=== PATIENT | female | born 1975 | race Caucasian/White ===

== ENCOUNTER → 2016-12-02 | Outpatient (CLI) | payer MEDICARE, OTHER ==
--- NOTE | 2016-12-02 08:18 | XR ---
Bilateral feet HISTORY: Osteomyelitis 2 views of both feet are submitted. Correlation to prior exam 10 October 2016 left foot, bilateral f eet 08 October 2016 Post amputation changes to the first digit of the right foot again noted. The sclerosis of the distal aspect of the second metatarsal with relative flattening of the metatarsal head is again noted on th e right, there is associated soft tissue swelling, some sclerosis also suspect that the distal third metatarsal of the right foot. There are bilateral plantar calcaneal spurs. Degenerative change present at the first metatarsophalan geal joint of the left foot as on prior exam. No evident fracture or dislocation. Question some scler osis of the proximal fifth metatarsal. IMPRESSION: Findings could represent chronic osteomyelitis. Correlate with bone scan.
== END | disposition home or self-care (01) ==
LOC: RADNMMAIN 07:01
PROVIDERS: ATTEND Podiatrist
DX: M86.8X7 Other osteomyelitis, ankle and foot (principal)

== ENCOUNTER 2016-12-17 18:03 | Inpatient (IN) | payer MEDICARE, OTHER ==
--- NOTE | 2016-12-17 19:32 | ED ---
Fever HPI - General Chief Complaint: Fever Stated Complaint: CHILLS, WEAKNESS, NO ENERGY Time Seen by Provider: 12/17/16 18:56 Source: patient Mode of arrival: wheelchair Limitations: no limitations - History of Present Illness Initial Comments: This patient is a 41-year-old woman who presents to be evaluated after she developed a fever, was feeling generalized fatigue and weakness. The patient states that her recent health has been complicated. On December 06, she had an episode of unresponsiveness, was taken to the hospital, found to be septic, and transferred to [facility]. There she was found to have what appeared to be endocarditis. She was released from the hospital yesterday, continuing to take Rocephin and metronidazole. She went to the wound care center today and had a debridement of left foot ulcer by Dr. Madrigal. She went home this afternoon and then she started having the symptoms that brought her here. She states that a visiting nurse came and saw her this afternoon, told her that her vital signs were funny, and recommended she be seen in the hospital. The patient states that she had a couple of things she had to resolve and then came here following that. The patient is denying headache, stiff neck, or cold-like symptoms. Patient denies cough, chest pain, shortness of breath. Patient has not noticed palpitations, lightheadedness or syncope. She is not having abdominal pain, vomiting or diarrhea. Patient has not noticed change in urination, frequency, dysuria or hematuria. MD Complaint: fever, malaise, weakness (Last) -: hour(s) Temperature Source: oral Context: recent procedure, recent antibiotic use Associated Symptoms: denies other symptoms Treatments Prior to Arrival: none - Related Data Home Medications Medication Instructions Recorded Confirmed Carvedilol [Coreg] 25 mg PO BID 03/04/15 12/17/16 Furosemide [Lasix] 40 mg PO DAILY@1600 03/04/15 12/17/16 Furosemide [Lasix] 80 mg PO QAM 03/04/15 12/17/16 Spironolactone [Aldactone] 25 mg PO BID 03/04/15 12/17/16 Digoxin [Lanoxin] 250 mcg PO QAM 08/22/15 12/17/16 Albuterol Inhaler [Ventolin Hfa 2 puff INHALATION RT-Q6H PRN 07/29/16 12/17/16 Inhaler] Insulin Glargine [Lantus] 40 unit SQ HS 07/29/16 12/17/16 Lisinopril 10 mg PO DAILY 07/29/16 12/17/16 Acetaminophen Tab [Tylenol] 650 mg PO TID PRN 09/06/16 12/17/16 Gabapentin 600 mg PO BID 10/10/16 12/17/16 acetaZOLAMIDE [Diamox Sequels] 500 mg PO BID 12/03/16 12/17/16 Insulin Aspart [NovoLOG] 20 unit SQ AC-TID 12/17/16 12/17/16 Ipratropium-Albuterol Nebulize 3 ml INHALATION RT-QID PRN 12/17/16 12/17/16 [Duoneb 0.5 mg-3 mg/3 ml Soln] cefTRIAXone [Rocephin] 1,000 mg IVPB Q24HR 12/17/16 12/17/16 Allergies Allergy/AdvReac Type Severity Reaction Status Date / Time Penicillins Allergy Rash/Hives Verified 12/17/16 19:06 Review of Systems ROS Statement: Those systems with pertinent positive or pertinent negative responses have been documented in the HPI. ROS Other: All systems not noted in ROS Statement are negative. Constitutional: Reports: fever, weakness (Generalized). Denies: chills Respiratory: Denies: cough, dyspnea, wheezes, hemoptysis Cardiovascular: Denies: chest pain, palpitations, edema, syncope Endocrine: Reports: fatigue Gastrointestinal: Denies: abdominal pain, vomiting, diarrhea Genitourinary: Denies: dysuria, frequency, hematuria Musculoskeletal: Reports: other (Left foot ulcer with debridement today at the wound care center). Denies: back pain, joint swelling, arthralgia Skin: Denies: rash Neurological: Denies: headache, weakness, numbness, paresthesias, confusion Past Medical History Past Medical History: Asthma, Coronary Artery Disease (CAD), Heart Failure, CVA/ TIA, Diabetes Mellitus, Hypertension, Myocardial Infarction ([place]), Pneumonia, Seizure Disorder Additional Past Medical History / Comment(s): MINOR [place] 11/2013. CARDIOMYOPATHY. ASTHMA IN PAST, VARICOSE VEINS. Diabetic NEUROPATHY IN FEET. Chronic diabetic WOUNDS TO BOTH FEET, CVA IN AUGUST 2016 WITH SEIZURES, SOME RESIDUAL SPEECH AND MEMORY LOSS. PICC LINE PLACED IN AUGUST 2016 FOR OSTEOMYLITIS BOTH FEET, DR VILLAREAL MANAGING ANTIBIOTICS; Sepsis Last Myocardial Infarction Date:: 11/2013 History of Any Multi-Drug Resistant Organisms: None Reported Past Surgical History: Adenoidectomy, AICD, Section, Heart Catheterization, Orthopedic Surgery, Pacemaker, Tonsillectomy Additional Past Surgical History / Comment(s): AICD - [employer]. has pacemaker defibrillator, right great toe amputation. GREAT TOE RIGHT FOOT AMPUTATION 2015 Past Anesthesia/Blood Transfusion Reactions: No Reported Reaction Type of Cardiac Device: AICD Device Placement Date:: 2011 Past Psychological History: No Psychological Hx Reported Additional Psychological History / Comment(s): Single. Lives in the family home with her 2 children, as well as her son-in-law. There are 2 pet cats in the home. No experience. No travel history. Used to work in [employer] but not employed currently. No significant of alcohol or recreational drug use. Is an ongoing daily tobacco user. No significant of alcohol or recreational drug use. Smoking Status: Current every day smoker Past Alcohol Use History: None Reported Additional Past Alcohol Use History / Comment(s): STARTED SMOKING AT AGE 12 SMOKES 4-5 CIG PER DAY Past Drug Use History: Marijuana Additional Drug Use History / Comment(s): medical marijuana card - Past Family History Mother Family Medical History: Deep Vein Thrombosis (DVT) Father Family Medical History: Cancer General Exam Limitations: no limitations General appearance: alert, in no apparent distress Head exam: Present: atraumatic, normocephalic Eye exam: Present: normal appearance. Absent: scleral icterus, conjunctival injection ENT exam: Present: normal oropharynx Neck exam: Present: normal inspection, full ROM. Absent: meningismus Respiratory exam: Present: normal lung sounds bilaterally. Absent: respiratory distress, wheezes, rales, rhonchi, stridor Cardiovascular Exam: Present: regular rate, normal rhythm, normal heart sounds. Absent: systolic murmur, diastolic murmur, rubs, gallop GI/Abdominal exam: Present: soft. Absent: distended, tenderness, guarding, rebound, mass, pulsatile mass, hernia Extremities exam: Present: normal capillary refill, other (Left foot). Absent: pedal edema, calf tenderness Back exam: Present: normal inspection. Absent: CVA tenderness (R), CVA tenderness (L), vertebral tenderness Neurological exam: Present: alert, oriented X3. Absent: motor sensory deficit Skin exam: Present: warm, dry, intact, normal color. Absent: rash Course Vital Signs 12/17/16 12/17/16 12/17/16 18:46 19:00 19:15 Temperature 100.9 F H Pulse Rate 110 H 102 H 101 H Respiratory 20 20 20 Rate Blood Pressure 118/72 132/64 123/56 O2 Sat by Pulse 95 95 95 Oximetry 12/17/16 12/17/16 12/17/16 19:30 19:45 20:00 Temperature 101.0 F H Pulse Rate 102 H 110 H 97 Respiratory 20 20 20 Rate Blood Pressure 130/64 122/55 125/61 O2 Sat by Pulse 99 99 96 Oximetry 12/17/16 12/17/16 12/17/16 20:30 21:00 21:30 Temperature 100.1 F H 99.9 F H Pulse Rate 94 90 94 Respiratory 20 18 18 Rate Blood Pressure 116/59 130/60 141/72 O2 Sat by Pulse 96 99 99 Oximetry 12/17/16 22:00 Temperature Pulse Rate 93 Respiratory 20 Rate Blood Pressure 133/56 O2 Sat by Pulse 99 Oximetry Medical Decision Making - Medical Decision Making This patient is a 41-year-old woman with recent endocarditis, who presents here with a recurrence of fever. She did have his service criteria and the lactic acid greater than 2. The patient currently being covered with IV Rocephin and IV Flagyl, which qualifies as broad-spectrum coverage. There was some small delay in starting antibiotics here while attempting to speak with the infectious disease fashion consultant selling. The patient has been discussed with Dr. Blake, who then went and checked the patient's record at [facility]. He after reviewing the record recommends coverage with Teflaro and also continuing the Flagyl. It appears that the patient is being treated for suspected infection of a pacer lead which did apparently grow a species of Streptococcus. The patient will be admitted for IV antibiotics and for repeat blood culture. - Lab Data Result diagrams: 12/17/16 19:15 12/17/16 19:15 Lab Results 12/17/16 12/17/16 12/17/16 Range/Units 19:15 19:15 19:15 WBC 13.6 H (3.8-10.6) k/uL RBC 4.38 (3.80-5.40) m/uL Hgb 10.3 L (11.4-16.0) gm/dL Hct 34.0 (34.0-46.0) % MCV 77.6 L (80.0-100.0) fL MCH 23.6 L (25.0-35.0) pg MCHC 30.4 L (31.0-37.0) g/dL RDW 16.1 H (11.5-15.5) % Plt Count 212 (150-450) k/uL Neutrophils % 89 % Lymphocytes % 6 % Monocytes % 3 % Eosinophils % 1 % Basophils % 0 % Neutrophils # 12.2 H (1.3-7.7) k/uL Lymphocytes # 0.8 L (1.0-4.8) k/uL Monocytes # 0.4 (0-1.0) k/uL Eosinophils # 0.2 (0-0.7) k/uL Basophils # 0.0 (0-0.2) k/uL Hypochromasia Slight Anisocytosis Slight Microcytosis Slight PT (9.0-12.0) sec INR (<1.1) APTT (22.0-30.0) sec Sodium 135 L (137-145) mmol/L Potassium 4.6 (3.5-5.1) mmol/L Chloride 96 L (98-107) mmol/L Carbon Dioxide 27 (22-30) mmol/L Anion Gap 12 mmol/L BUN 11 (7-17) mg/dL Creatinine 0.82 (0.52-1.04) mg/dL Est GFR (MDRD) Af Amer >60 (>60 ml/min/1.73 sqM) Est GFR (MDRD) Non-Af >60 (>60 ml/min/1.73 sqM) Glucose 235 H (74-99) mg/dL POC Glucose (mg/dL) (75-99) mg/dL POC Glu Machine Feeder ID Plasma Lactic Acid Warren 2.1 H (0.7-2.0) mmol/L Calcium 9.1 (8.4-10.2) mg/dL Total Bilirubin 0.5 (0.2-1.3) mg/dL AST 31 (14-36) U/L ALT 42 (9-52) U/L Alkaline Phosphatase 111 (38-126) U/L Total Protein 7.5 (6.3-8.2) g/dL Albumin 3.5 (3.5-5.0) g/dL Urine Color Urine Appearance (Clear) Urine pH (5.0-8.0) Ur Specific [place] (1.001-1.035) Urine Protein (Negative) Urine Glucose (UA) (Negative) Urine Ketones (Negative) Urine Blood (Negative) Urine Nitrate (Negative) Urine Bilirubin (Negative) Urine Urobilinogen (<2.0) mg/dL Ur Leukocyte Esterase (Negative) Urine RBC (0-5) /hpf Urine WBC (0-5) /hpf Ur Squamous Epith Cells (0-4) /hpf 12/17/16 12/17/16 12/17/16 Range/Units 19:15 19:40 20:56 WBC (3.8-10.6) k/uL RBC (3.80-5.40) m/uL Hgb (11.4-16.0) gm/dL Hct (34.0-46.0) % MCV (80.0-100.0) fL MCH (25.0-35.0) pg MCHC (31.0-37.0) g/dL RDW (11.5-15.5) % Plt Count (150-450) k/uL Neutrophils % % Lymphocytes % % Monocytes % % Eosinophils % % Basophils % % Neutrophils # (1.3-7.7) k/uL Lymphocytes # (1.0-4.8) k/uL Monocytes # (0-1.0) k/uL Eosinophils # (0-0.7) k/uL Basophils # (0-0.2) k/uL Hypochromasia Anisocytosis Microcytosis PT 11.0 (9.0-12.0) sec INR 1.1 (<1.1) APTT 20.6 L (22.0-30.0) sec Sodium (137-145) mmol/L Potassium (3.5-5.1) mmol/L Chloride (98-107) mmol/L Carbon Dioxide (22-30) mmol/L Anion Gap mmol/L BUN (7-17) mg/dL Creatinine (0.52-1.04) mg/dL Est GFR (MDRD) Af Amer (>60 ml/min/1.73 sqM) Est GFR (MDRD) Non-Af (>60 ml/min/1.73 sqM) Glucose (74-99) mg/dL POC Glucose (mg/dL) 130 H (75-99) mg/dL POC Glu Machine Feeder ID Plasma Lactic Acid [place] (0.7-2.0) mmol/L Calcium (8.4-10.2) mg/dL Total Bilirubin (0.2-1.3) mg/dL AST (14-36) U/L ALT (9-52) U/L Alkaline Phosphatase (38-126) U/L Total Protein (6.3-8.2) g/dL Albumin (3.5-5.0) g/dL Urine Color Yellow Urine Appearance Clear (Clear) Urine pH 8.0 (5.0-8.0) Ur Specific [place] 1.005 (1.001-1.035) Urine Protein Negative (Negative) Urine Glucose (UA) Negative (Negative) Urine Ketones Negative (Negative) Urine Blood Negative (Negative) Urine Nitrate Negative (Negative) Urine Bilirubin Negative (Negative) Urine Urobilinogen <2.0 (<2.0) mg/dL Ur Leukocyte Esterase Trace H (Negative) Urine RBC <1 (0-5) /hpf Urine WBC 1 (0-5) /hpf Ur Squamous Epith Cells 1 (0-4) /hpf Disposition Clinical Impression: Fever, Pneumonia Disposition: ADMITTED IP TO THIS [facility] Condition: Serious Referrals: Dylan Causey MD [Primary Care Provider] - 1-2 days
[2016-12-17 19:36] LABS: ALT 42 U/L (9-52); AST 31 U/L (14-36); Alkaline Phosphatase 111 U/L (38-126); Anion Gap 12 mmol/L; Blood Urea Nitrogen 11 mg/dL (7-17); Calcium 9.1 mg/dL (8.4-10.2); Carbon Dioxide 27 mmol/L (22-30); Chloride 96 mmol/L (98-107); Glucose 235 mg/dL (74-99); Non-African American GFR(MDRD) >60 (>60 ml/min/1.73 sqM); Potassium 4.6 mmol/L (3.5-5.1); Sodium 135 mmol/L (137-145); Total Bilirubin 0.5 mg/dL (0.2-1.3); Total Protein 7.5 g/dL (6.3-8.2)
[2016-12-17] MEDS ORDERED: SODIUM CHLORIDE 0.9% 1,000 ML IV ONE ×2 (19:41→21:33)
[2016-12-17] MEDS ORDERED: INSULIN REGULAR 100 UNIT/ML VIAL SQ STA (19:41)
[2016-12-17 19:44] LABS: Anisocytosis Slight; Basophils % (A) 0 %; CH 24.4; CHCM 31.6; Eosinophils # (A) 0.2 k/uL (0-0.7); Eosinophils % (A) 1 %; HDW 3.21; HGB 10.3 gm/dL (11.4-16.0); Hypochromasia Slight; Luc # (Auto) 0.04; Luc % (Auto) 0; Lymphocytes # (A) 0.8 k/uL (1.0-4.8); Lymphocytes % (A) 6 %; MCH 23.6 pg (25.0-35.0); MCHC 30.4 g/dL (31.0-37.0); MCV 77.6 fL (80.0-100.0); Mean Platelet Volume 8.7; Microcytosis Slight; Monocytes # (A) 0.4 k/uL (0-1.0); Monocytes % (A) 3 %; Neutrophils # (A) 12.2 k/uL (1.3-7.7); Neutrophils % (A) 89 %; RBC 4.38 m/uL (3.80-5.40); RDW 16.1 % (11.5-15.5); WBC 13.6 k/uL (3.8-10.6); WBC (Perox) 14.38
[2016-12-17 19:58] LABS: Appearance,Urine Clear (Clear); Bilirubin,Urine Negative (Negative); Glucose,Urine (UA) Negative (Negative); Ketones,Urine Negative (Negative); Leukocyte Esterase,Urine Trace (Negative); Nitrite,Urine Negative (Negative); Particle Count 496; Protein,Urine Negative (Negative); RBC,Urine <1 /hpf (0-5); Specific Gravity,Urine 1.005 (1.001-1.035); Squamous Epithelial Cell,Urine 1 /hpf (0-4); UA Billing (MACRO vs. MICRO) MICRO; Urobilinogen,Urine <2.0 mg/dL (<2.0); WBC,Urine 1 /hpf (0-5)
[2016-12-17 20:04] LABS: INR 1.1 (<1.1)
[2016-12-17 20:07] LABS: Partial Thromboplastin Time 20.6 sec (22.0-30.0)
--- NOTE | 2016-12-17 20:57 | XR ---
EXAMINATION TYPE: XR chest 2V DATE OF EXAM: 12/17/2016 8:51 PM COMPARISON: 09/06/2016 HISTORY: Weakness and fever TECHNIQUE: Frontal and lateral views of the chest are obtained. FINDINGS: There is patchy linear infiltrate and atelectasis at the left lung base. There is no heart failure. Heart size is normal. There are chest leads. There is a left axillary pacemaker with the le ad tips in the right ventricle. There is no pleural effusion. IMPRESSION: There is new left lower lobe infiltrate and atelectasis compared to old exam. Normal hea rt.
[2016-12-17 21:00] LABS: Glucose,Whole Blood 130 mg/dL (75-99)
[2016-12-17] MEDS ORDERED: LEVOFLOXACIN 750MG-D5W PMX 750 MG in DEXTROSE/WATER 1 150ML.BAG IVPB STA (21:17)
[2016-12-17] MEDS ORDERED: ACETAMINOPHEN TAB 325 MG TAB PO STA (21:17)
[2016-12-17] MEDS ORDERED: AZTREONAM 2 GM in SODIUM CHLORIDE 0.9% 100 ML IVPB STA (21:17)
[2016-12-17] MEDS: SODIUM CHLORIDE 0.9% 1,000 ML IV SCH (22:30)
[2016-12-17] MEDS ORDERED: PNEUMONIA PROTOCOL UTILIZED 1 EACH MISC PO PRN (22:30)
[2016-12-17 22:54] LABS: Hemoglobin A1C 10.1 % (4.2-6.1)
[2016-12-17] MEDS: CEFTAROLINE FOSAMIL 600 MG in SODIUM CHLORIDE 0.9% 250 ML IVPB SCH (23:25)
[2016-12-18] MEDS: metroNIDAZOLE-NS PMX 500 MG in SALINE 1 100ML.BAG IVPB SCH ×4 (05:08→23:17)
[2016-12-18] MEDS: HEPARIN SODIUM,PORCINE 5,000 UNIT/ML 1 ML VIAL SQ SCH ×4 (05:08→23:16)
[2016-12-18 07:20] LABS: Glucose,Whole Blood 115 mg/dL (75-99)
[2016-12-18] MEDS: ALBUTEROL NEBULIZED 2.5 MG/3 ML INHALATION SCH ×4 (07:22→19:39)
[2016-12-18] MEDS ORDERED: AZTREONAM 2 GM in SODIUM CHLORIDE 0.9% 100 ML IVPB SCH (08:00)
--- NOTE | 2016-12-18 08:49 | XR ---
EXAMINATION TYPE: XR chest 2V DATE OF EXAM: 12/18/2016 8:32 AM COMPARISON: NONE INDICATION: Pneumonia TECHNIQUE: Frontal and lateral views of the chest are obtained. FINDINGS: The heart size is normal. The pulmonary vasculature is normal. There are linear opacities within the left base. This is improved from prior study. Resolving pneumon ia could be considered. Atelectasis is within the differential. Pacemaker overlies left chest. IMPRESSION: 1. Resolving left base infiltrate.
[2016-12-18] MEDS: INSULIN LISPRO (humaLOG) 300 UNIT/3 ML VIAL SQ SCH ×6 (09:36→20:33)
[2016-12-18] MEDS: SODIUM CHLORIDE 0.9% 1,000 ML IV SCH ×3 (09:44→23:17)
[2016-12-18 11:13] LABS: Glucose,Whole Blood 225 mg/dL (75-99)
[2016-12-18] MEDS ORDERED: IPRATROPIUM-ALBUTEROL 3 ML NEB INHALATION PRN (13:02)
[2016-12-18] MEDS: ACETAMINOPHEN TAB 325 MG TAB PO PRN ×2 (13:14→22:11)
[2016-12-18 14:14] VITALS: BMI 41.5
[2016-12-18] MEDS: GABAPENTIN 300 MG CAP PO SCH ×2 (15:13→20:28)
[2016-12-18] MEDS: DIGOXIN 250 MCG TAB PO SCH (15:13)
[2016-12-18] MEDS: acetaZOLAMIDE 250 MG TAB PO SCH ×2 (15:15→20:28)
[2016-12-18 16:40] LABS: Glucose,Whole Blood 239 mg/dL (75-99)
[2016-12-18] MEDS: FUROSEMIDE 40 MG TAB PO SCH (16:55)
[2016-12-18] MEDS: CEFTAROLINE FOSAMIL 600 MG in SODIUM CHLORIDE 0.9% 250 ML IVPB SCH ×2 (16:55→22:08)
--- NOTE | 2016-12-18 17:03 | HP ---
DATE OF ADMISSION: 12/17/2016 PRESENTING COMPLAINT: Chills, fever. HISTORY OF PRESENTING COMPLAINT: This is a 41 -year-old patient of Dr. Causey with rather extensive medical history. Patient's chronic stable medical conditions include diabetes mellitus type 2, hypertension, hyperlipidemia, peripheral neuropathy, cardiomyopathy; ejection fraction 30% to 35%; AICD defibrillator. Patient does follow the wound care center by Dr. Madrigal. Patient back on 09/06/2016 was diagnosed to have osteomyelitis of the left big toe. Patient also has got a patient on December 06 was found unconscious at home and brought to [facility] where she was A-lifted to [facility]. Her blood cultures showed streptococcus and MSSA and there was a question about her vegetations on the AICD leads. Patient was discharged two days ago with IV ceftriaxone to be ( ) another 35 days. Patient also had debridement of the left foot and the right foot. The patient yesterday went into the wound care center and saw Dr. Madrigal, went back home and did start having fever and chills. Patient's home care nurse came out and patient was sent in here. The patient here found to have a fever, tachycardia, and she was admitted. Infectious disease was consulted. The patient denies any cough. REVIEW OF SYSTEMS: CONSTITUTIONAL: Weak, tired, fever, chills. HEENT: None. RESPIRATORY: None. CARDIOVASCULAR: None. GASTROINTESTINAL: None. GENITOURINARY: None. MUSCULOSKELETAL: None. Dermatologic: Wound on the right and left foot. HEMATOLOGICAL: None. LYMPHATICS: None. PSYCHIATRY: None. NEUROLOGICAL: Numbness and tingling in both feet. Past medical history of asthma, coronary artery disease, congestive heart failure; ejection fraction 35 to 40%, CVA, diabetes mellitus type 2, hypertension, seizure disorder, cardiomyopathy, varicose veins, peripheral neuropathy, diabetic wounds in both the feet, stroke in August 2016 with seizures, some residual speech and memory loss. PAST SURGICAL HISTORY: Adenoidectomy, AICD, , cardiac catheterization, AICD, [employer] defibrillator, right big toe amputation. SOCIAL HISTORY: The patient lives at home with 2 children and her son-in-law. Two pet cats at home. Patient stopped smoking about two months ago. Patient has a medical marijuana card. Family history of deep venous thrombosis and kidney failure. HOME MEDICATIONS: 1. Ceftriaxone 1 gram q.24, supposed to take for 35 more days. 2. Diamox 500 mg p.o. b.i.d. 3. Aldactone 25 p.o. b.i.d. 4. Lisinopril 10 mg p.o. b.i.d. daily. 5. DuoNeb q.i.d. p.r.n. 6. Insulin Lantus 40 units subcutaneously at bedtime. 7. NovoLog 20 units subcutaneously t.i.d. 8. Neurontin 600 b.i.d. 9. Lasix 80 mg p.o. daily. 10. Lasix 40 mg p.o. at 4:00 p.m. 11. Digoxin 250 mcg p.o. daily. 12. Coreg 25 mg p.o. b.i.d. 13. Ventolin HFA 2 puffs q.6 p.r.n. ALLERGIES TO PENICILLIN. On examination T-max 101, pulse 110, respiration 20, blood pressure 120/55, pulse ox 99% on 2 liters. GENERAL APPEARANCE: Average built, sitting up, not in distress. EYES: Pupils equal. Conjunctivae normal. HEENT: External appearance of nose and ears normal. Oral cavity normal. NECK: JVD not raised. Mass not palpable. RESPIRATORY: Effort normal. LUNGS: Slightly decreased breath sounds. ( ). CARDIOVASCULAR: First and second sounds normal. No edema. ABDOMEN: Soft. Nontender. Liver and spleen not palpable. LYMPHATIC: No lymph nodes palpable in the neck or axilla. PSYCHIATRY: Alert and oriented x3. Mood and affect normal. NEUROLOGICAL: Decreased sensation in both legs distally. EXTREMITIES: Slight dermatological, patient has a wound of the plantar surface of the right foot over the area of the third toe and on the left foot, the patient has incisions on the dorsum, healing well, and healing wound on the plantar of the left foot. INVESTIGATIONS: White count 7.6, hemoglobin 10.3, potassium 4.6. ASSESSMENT: 1. Sepsis picture in a patient who was just diagnosed to have endocarditis on December 06 at [facility] and had grown Streptococcus and Methicillin-susceptible Staph aureus in the blood and also questionable vegetation on the automatic implantable cardioverter defibrillator leads, there was a concern about flare up of the same infection versus additional infection. 2. Diabetic foot wounds, both on the right foot on the plantar surface and the left foot both of ( ) plantar surface though clinically appears to be healing well. 3. Chronic obstructive pulmonary disease in a recent smoker. 4. Diabetes mellitus type 2, chronically on insulin causing peripheral neuropathy. 5. Essential hypertension. 6. Hyperlipidemia. 7. Cardiomyopathy; ejection fraction 30% to 35% percent. PLAN: I discussed the care with Dr. Blake from infectious disease who is on today. Patient needs to be put on IV Ceftaroline and Flagyl. Home medications will be resumed. Accu-Cheks will be followed. Care was discussed with the patient. DVT prophylaxis was started. Dr. Blake will get more records from [facility] and we will follow from there. Patient will need inpatient for at least 48 hours of hospital stay.
[2016-12-18] MEDS: SPIRONOLACTONE 25 MG TAB PO SCH (17:04)
[2016-12-18] MEDS: CARVEDILOL 12.5 MG TAB PO SCH (17:05)
[2016-12-18] MEDS: INSULIN GLARGINE 100 UNIT/ML 10 ML VIAL SQ SCH (20:33)
--- NOTE | 2016-12-18 20:40 | CONS ---
DATE OF CONSULTATION: 12/18/2016 REASON FOR CONSULTATION: Sepsis. HISTORY OF PRESENT ILLNESS: The patient is a 41-year-old female with recent complicated history where the patient was air lifted from [facility] to [facility] and admitted with septic shock. She did have Streptococcus agalactie bacteremia on 12/06/2016, follow-up blood cultures on 12/07 were negative. It was thought to be secondary to infected ulcer mostly on her left foot area. The patient did have debridement of those wounds and cultures were positive for Streptococcus in addition to MSSA and anaerobic cultures were positive for Prevotella. Apparently the patient did have an echocardiogram done there which was suspicious for vegetation on the tricuspid valve. A CONY was recommended. Unfortunately, I was unable to access the CONY report and apparently they did find some kind of vegetation on her, the AICD lead. Subsequently, the patient was stabilized there. She did get a PICC line and was advised a 6 week course of Rocephin 2 gm daily in addition to the oral Flagyl. The patient says she went to the wound care and was evaluated by Dr. Madrigal and apparently everything was okay. She went home. Subsequently the home care nurse showed up to evaluate her and told her that her vital signs were out of whack. She was unable to confirm exactly what that means but she did say that her blood pressure was slightly low and her heart rate was high. Subsequently the patient was advised to go to the ER. The patient was evaluated by the ER physician Dr. Arteaga. On arrival to the ER, patient did have fever of 100.9 - 101 degrees Fahrenheit along with the tachycardia. Blood pressure remain to be normal. O2 sats were normal. The patient did have elevated white count 13.6 meeting criteria for SIRS like sepsis. case discussed with me by the ER physician last night in view of her complicated course at [facility]. The records were reviewed at that facility. Advised to obtain blood cultures. The patient was started on Teflaro 600 q.12 hours and continue with oral Flagyl. The patient also had a chest x-ray did show new left lower lobe infiltrate and it is compared to old exam. The patient denies significant cough. She has very mild cough, but not bringing up any sputum. The patient denies having any chest pain. Denies having any shortness of breath and no abdominal pain and no diarrhea. No burning or frequency of urine. REVIEW OF SYSTEMS: CONSTITUTIONAL: Positive for weakness along with a fever. EYES: No complaint. ENT: No complaint. RESPIRATORY: As per HPI. CARDIOVASCULAR: No complaint. GENITOURINARY: No complaint. GASTROINTESTINAL: No complaint. MUSCULOSKELETAL: As per HPI. INTEGUMENTARY: As per HPI. PSYCHOLOGIC: No complaint. ENDOCRINE: No complaint. NEUROLOGIC: No complaint. Past medical history is significant for: Asthma, coronary artery disease, heart failure, CVA, TIA, insulin dependent diabetes mellitus, uncontrolled hypertension, pneumonia, bilateral foot, diabetic ulcer, and osteomyelitis, recently admitted at [facility] [place] with sepsis, secondary to bilateral foot ulcer and a question of vegetation of the AICD wire. PAST SURGICAL HISTORY: Adenoidectomy AICD placement, , heart catheterization and pacemaker placement, right big toe amputation. SOCIAL HISTORY: The patient is currently an every day smoker, has been smoking since the age of 12, did admit to marijuana use. FAMILY HISTORY: Mother with history of DVT, father with history of cancer. ALLERGIES: PENICILLIN Medications include the patient is currently on: 1. Tylenol. 2. Diamox. 3. Duoneb. 4. Coreg. 5. Teflaro 600 q.12 hours. 6. She is on digoxin. 7. Lasix. 8. Neurontin. 9. Heparin. 10. Lantus. 11. Humalog. 12. Zestril. 13. Flagyl. 14. Aldactone. On examination, blood pressure is 142/55 with a pulse of 83, temperature 97.9. T-max is 101. She is 95% on room air. General description is a middle-age female lying in bed in no distress. No tachypnea or accessory muscle of respiration use. HEENT examination shows pallor. There is no scleral icterus. Oral mucous membrane is dry. NECK: Trachea is central. No thyromegaly. LUNGS: Unlabored breathing. Some decreased breath sounds at the base. No wheeze. HEART: S1, S2. Regular rate and rhythm. ABDOMEN: Soft. No tenderness. No guarding or rigidity. EXTREMITIES: No edema of feet. Bilateral foot, the patient did have wound on left foot which looks clean with very minimal surrounding redness and no drainage was noticed. NEUROLOGICAL: The patient is awake, alert, oriented x3. Mood and affect normal. LABS: Hemoglobin is 10.8, white count 13.6, BUN of 11, creatinine 0.81. Electrolytes have been normal. Liver enzymes are normal. Urine has been negative. Chest x-ray report as mentioned earlier. DIAGNOSTIC IMPRESSION AND PLAN: Patient admitted to hospital with sepsis in a patient who did have a fever of 101 degrees Fahrenheit. Elevated white count 13.6 and tachycardia meeting criteria for systemic inflammatory response syndrome /sepsis with source questionably pneumonia versus bilateral feet wound infection especially of the left foot in a patient with recent complicated stay at [facility] with evidence of pacemaker lead infection. At that time, the patient was bacteremic with Streptococcus dysgalactie and the patient has been on appropriate antibiotics for the same with a question of possible secondery infection of the wound versus pneumonia though the patient did not have significant respiratory symptoms. Recurrent bacteremia needs to be ruled out as well. PLAN: 1. Blood cultures have been ordered. We will follow the results. 2. We will continue the patient on Teflaro 600 IV q12 hours to which the patient seems to have responded. 3. Aquacel silver packing of the wound. 4. We will follow up with clinical condition and cultures to further adjust the medication if needed. Thank you for this consultation. We will follow this patient along with you. ELVIA
[2016-12-18 20:42] LABS: Glucose,Whole Blood 218 mg/dL (75-99)
[2016-12-18] MEDS ORDERED: LEVOFLOXACIN 750MG-D5W PMX 750 MG in DEXTROSE/WATER 1 150ML.BAG IVPB SCH (21:00)
[2016-12-19 07:17] LABS: Glucose,Whole Blood 151 mg/dL (75-99)
[2016-12-19] MEDS: ALBUTEROL NEBULIZED 2.5 MG/3 ML INHALATION SCH ×4 (07:33→20:11)
[2016-12-19] MEDS: metroNIDAZOLE-NS PMX 500 MG in SALINE 1 100ML.BAG IVPB SCH ×3 (08:00→23:52)
[2016-12-19] MEDS: INSULIN LISPRO (humaLOG) 300 UNIT/3 ML VIAL SQ SCH ×7 (08:00→20:05)
[2016-12-19] MEDS: HEPARIN SODIUM,PORCINE 5,000 UNIT/ML 1 ML VIAL SQ SCH ×3 (08:00→23:52)
[2016-12-19] MEDS: acetaZOLAMIDE 250 MG TAB PO SCH ×2 (08:01→20:05)
[2016-12-19] MEDS: FUROSEMIDE 80 MG TAB PO SCH (08:01)
[2016-12-19] MEDS: CARVEDILOL 12.5 MG TAB PO SCH ×2 (08:01→17:21)
[2016-12-19] MEDS: DIGOXIN 250 MCG TAB PO SCH (08:01)
[2016-12-19] MEDS: GABAPENTIN 300 MG CAP PO SCH ×2 (08:02→20:05)
[2016-12-19] MEDS: SPIRONOLACTONE 25 MG TAB PO SCH ×2 (08:02→17:21)
[2016-12-19] MEDS: LISINOPRIL 10 MG TAB PO SCH (08:02)
[2016-12-19] MEDS: ACETAMINOPHEN TAB 325 MG TAB PO PRN (08:04)
[2016-12-19 11:55] LABS: Glucose,Whole Blood 120 mg/dL (75-99)
[2016-12-19] MEDS: CEFTAROLINE FOSAMIL 600 MG in SODIUM CHLORIDE 0.9% 250 ML IVPB SCH ×2 (14:45→22:34)
[2016-12-19] MEDS: SODIUM CHLORIDE 0.9% 1,000 ML IV SCH ×2 (14:46→20:05)
[2016-12-19 14:55] LABS: Glucose,Whole Blood 153 mg/dL (75-99)
[2016-12-19 17:02] LABS: Glucose,Whole Blood 104 mg/dL (75-99)
[2016-12-19] MEDS: FUROSEMIDE 40 MG TAB PO SCH (17:21)
[2016-12-19] MEDS: INSULIN GLARGINE 100 UNIT/ML 10 ML VIAL SQ SCH (20:04)
[2016-12-19 20:05] LABS: Glucose,Whole Blood 112 mg/dL (75-99)
[2016-12-20] MEDS: ACETAMINOPHEN TAB 325 MG TAB PO PRN ×2 (05:58→18:33)
[2016-12-20 07:21] LABS: Glucose,Whole Blood 128 mg/dL (75-99)
[2016-12-20] MEDS: INSULIN LISPRO (humaLOG) 300 UNIT/3 ML VIAL SQ SCH ×7 (07:28→20:20)
[2016-12-20] MEDS: metroNIDAZOLE-NS PMX 500 MG in SALINE 1 100ML.BAG IVPB SCH (08:48)
[2016-12-20] MEDS: CARVEDILOL 12.5 MG TAB PO SCH ×2 (08:49→18:29)
[2016-12-20] MEDS: HEPARIN SODIUM,PORCINE 5,000 UNIT/ML 1 ML VIAL SQ SCH ×2 (08:50→18:29)
[2016-12-20] MEDS: DIGOXIN 250 MCG TAB PO SCH (08:50)
[2016-12-20] MEDS: LISINOPRIL 10 MG TAB PO SCH (08:50)
[2016-12-20] MEDS: GABAPENTIN 300 MG CAP PO SCH ×2 (08:50→20:20)
[2016-12-20] MEDS: acetaZOLAMIDE 250 MG TAB PO SCH ×2 (08:51→20:21)
[2016-12-20] MEDS: FUROSEMIDE 80 MG TAB PO SCH (08:52)
[2016-12-20] MEDS: ALBUTEROL NEBULIZED 2.5 MG/3 ML INHALATION SCH ×4 (08:54→20:49)
[2016-12-20] MEDS: SPIRONOLACTONE 25 MG TAB PO SCH ×2 (09:20→18:29)
--- NOTE | 2016-12-20 11:28 | PN ---
DATE OF SERVICE: 12/19/2016 PRESENTING COMPLAINT: Fever, chills. INTERVAL HISTORY: This patient recently diagnosed with endocarditis, questionable vegetation on the pacemaker leads, presented yet again with sepsis-like picture and got antibiotics, just feels tired and rundown. Being followed by infectious disease. Did tolerate some diet. Review of systems done for constitutional, GI, pulmonary; relevant findings as above. Current medications are reviewed and include IV Flagyl and IV ceftaroline. On examination, afebrile, pulse 66, respiratory rate 16, blood pressure 107/49, pulse ox 97% on room air. GENERAL APPEARANCE: Lying in bed, tired appearing. EYES: Pupils equal. Conjunctivae normal. NECK: JVD not raised. Mass not palpable. RESPIRATORY: Effort normal. LUNGS: Decreased breath sounds. CARDIOVASCULAR: First and second sounds normal. No edema. ABDOMEN: Soft, nontender. Liver and spleen not palpable. PSYCHIATRY: Alert and oriented x3. Mood and affect normal. EXTREMITIES: Wound on the plantar surface of the right foot and also wound on the plantar surface of the left foot with incisions on the dorsum. INVESTIGATIONS: Accu-Cheks are noted. Blood cultures are pending. ASSESSMENT: 1. Sepsis suspected in a patient who was just diagnosed to have endocarditis on December 06 at [facility], had ( ) streptococcal and Methicillin-susceptible Staph aureus in the blood and questionable vegetation on the defibrillator leads. No fever, slowly coming down. 2. Diabetic foot, both on the right foot plantar aspect as well as left foot on the plantar surface, clinically improved. 3. Chronic obstructive pulmonary disease in a recent smoker. 4. Diabetes mellitus type 2, chronically on insulin causing peripheral neuropathy. 5. Essential hypertension. 6. Hyperlipidemia. 7. Cardiomyopathy, ejection fraction 30-35%. PLAN: Continue medication and treatment plan, antibiotics. The patient's fevers have started to come down. More details will be obtain by ID, she had a hospitalization at [facility]. Will follow.
[2016-12-20 11:36] LABS: Glucose,Whole Blood 205 mg/dL (75-99)
--- NOTE | 2016-12-20 11:49 | PN ---
DATE OF SERVICE: 12/19/2016 Reason for follow-up: Left lower extremity wound cellulitis and recent streptococcus bacteremia and possible pacemaker lead infection. INTERVAL HISTORY: The patient is afebrile. She slightly dull today though denies having any headache. Denies having any chest pain or shortness of breath. Has a very mild cough. No sputum. No abdominal pain. Denies any pain to the leg wound. On examination, blood pressure is 107/49, pulse of 66, temperature is 97.4, she is 97% on room air. General description is a middle-age female lying in bed in no distress. RESPIRATORY SYSTEM: Unlabored breathing. Clear to auscultation anteriorly. HEART: S1, S2 regular rate and rhythm. ABDOMEN: Soft, no tenderness. Extremities: Left foot wound currently dressed no obvious drainage on the dressing. LABS: Blood cultures so far negative. CBC will not be repeated today. DIAGNOSTIC IMPRESSION AND PLAN: Patient admitted to the hospital with sepsis and fever, elevated white count in a patient who recently had an extended stay at [facility] with left foot wound and abscess. Cultures positive for Streptococcus dysgalactie and Methicillin-susceptible Staph aureus with positive blood cultures with Streptococcal dysgalactie and a question of possible pacemaker lead infection. She has been on Rocephin and Flagyl, still developed a fever, hence antibiotic was switched to Teflaro that will be continued while awaiting for the culture to finalize. Continue with Aquacel Silver dressing to the wound. Dr. Alvarez will follow this patient as of tomorrow to whom the patient is known. Continue supportive care. ELVIA
[2016-12-20] MEDS: SODIUM CHLORIDE 0.9% 1,000 ML IV SCH ×2 (14:53→20:22)
[2016-12-20] MEDS: CEFTAROLINE FOSAMIL 600 MG in SODIUM CHLORIDE 0.9% 250 ML IVPB SCH ×2 (14:53→22:10)
[2016-12-20 15:14] LABS: Glucose,Whole Blood 236 mg/dL (75-99)
[2016-12-20 15:42] LABS: Basophils % (A) 1 %; CH 23.8; CHCM 29.4; Eosinophils # (A) 0.2 k/uL (0-0.7); Eosinophils % (A) 5 %; HCT 30.5 % (34.0-46.0); HGB 9.2 gm/dL (11.4-16.0); Hypochromasia Marked; Luc # (Auto) 0.16; Luc % (Auto) 3; Lymphocytes # (A) 1.2 k/uL (1.0-4.8); Lymphocytes % (A) 25 %; MCH 24.3 pg (25.0-35.0); MCV 81.1 fL (80.0-100.0); Monocytes # (A) 0.3 k/uL (0-1.0); Monocytes % (A) 6 %; Neutrophils % (A) 60 %; RBC 3.76 m/uL (3.80-5.40); RDW 15.9 % (11.5-15.5); WBC 4.9 k/uL (3.8-10.6); WBC (Perox) 5.61
[2016-12-20 16:00] LABS: ALT 27 U/L (9-52); AST 20 U/L (14-36); Alkaline Phosphatase 82 U/L (38-126); Anion Gap 10 mmol/L; Blood Urea Nitrogen 16 mg/dL (7-17); Calcium 8.8 mg/dL (8.4-10.2); Carbon Dioxide 22 mmol/L (22-30); Chloride 107 mmol/L (98-107); Glucose 249 mg/dL (74-99); Non-African American GFR(MDRD) >60 (>60 ml/min/1.73 sqM); Potassium 3.8 mmol/L (3.5-5.1); Sodium 139 mmol/L (137-145); Total Bilirubin 0.4 mg/dL (0.2-1.3); Total Protein 6.6 g/dL (6.3-8.2)
[2016-12-20 17:12] LABS: Glucose,Whole Blood 221 mg/dL (75-99)
[2016-12-20] MEDS: FUROSEMIDE 40 MG TAB PO SCH (18:29)
[2016-12-20] MEDS: metroNIDAZOLE 500 MG TAB PO SCH ×2 (18:30→21:08)
--- NOTE | 2016-12-20 19:35 | P.PN ---
Subjective Principal diagnosis: Sepsis 41-year-old female presents to Hospital with evidence of fever or tachycardia and hypotension. With concerns to sepsis she was admitted to hospital. This was of significance was a recent hospitalization at [facility]. 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 Apparently this was left in place and she's been treating with antibiotic therapy with Rocephin and metronidazole. She is having difficulties with ongoing abscess to her feet. While she was at the outside hospital and incision and drainage was performed for an abscess on the dorsum of her left foot. Which is now improving. The patient is relating that she is now feeling considerably better. Other than some pain at the wound site she is denying fevers, chills or rigors. Appetite is going well. No nausea or emesis or diarrhea. Objective - Vital Signs Vital signs: Vital Signs Temp 98 F 12/20/16 15:00 Pulse 71 12/20/16 15:00 Resp 16 12/20/16 15:00 BP 101/50 12/20/16 15:00 Pulse Ox 98 12/20/16 15:00 Intake & Output 12/20/16 12/20/16 12/21/16 06:59 18:59 06:59 Intake Total 350 Balance 350 Intake: IV 250 Ceftaroline Fosamil 600 250 mg In Sodium Chloride 0.9 % 250 ml @ 250 mls/hr IVPB Q12H JAN Rx#: [id number] Intake, IV Titration 100 Amount metroNIDAZOLE-NS PMX 500 100 mg In Saline 1 100ml.bag @ 100 mls/hr IVPB Q8HR JAN Rx#:[id number] Other: Voiding Method Toilet Toilet # Voids 1 - Exam 41-year-old woman who is quite comfortable at this time. HEENT: Anicteric conjunctiva are pink and moist nasal mucosa grossly intact without significant lesions, there is no thrush. Neck: The neck is supple without significant lymphadenopathy or thyromegaly. Lungs: Good bilateral air entry without significant crackles or wheezing. There is no significant bronchial sounds. There is no egophony or dullness. Heart: Regular rate and rhythm with an audible S1-S2, no S3 positive S4 There is no significant murmur click or rub, PMI was nondisplaced. Abdomen: Positive bowel sounds soft and nontender without palpable masses or organomegaly. There was no guarding or rebound. Extremities: The upper extremities are without lesions Please refer to the nursing photography for the multiple ulcerations of the lower extremities. Left foot has evidence of the dorsum of the foot with the to surgical incision and drainage sites, as well as a to plantar ulcerations on the great toe and one of the third metatarsal head. It has the chronic ulceration to the right great toe plantar surface. None of them have purulence. The dressings are changed at this time, the hydrating silver dressing is put into place. Neuro: Awake alert oriented to person place and time. There are no acute new gross focal sensory motor deficits. - Labs CBC & Chem 7: 12/20/16 15:30 12/20/16 15:30 Labs: Abnormal Lab Results - Last 24 Hours (Table) 12/19/16 12/20/16 12/20/16 Range/Units 20:04 07:07 11:33 RBC (3.80-5.40) m/uL Hgb (11.4-16.0) gm/dL Hct (34.0-46.0) % MCH (25.0-35.0) pg MCHC (31.0-37.0) g/dL RDW (11.5-15.5) % Glucose (74-99) mg/dL POC Glucose (mg/dL) 112 H 128 H 205 H (75-99) mg/dL Albumin (3.5-5.0) g/dL 12/20/16 12/20/16 12/20/16 Range/Units 15:11 15:30 15:30 RBC 3.76 L (3.80-5.40) m/uL Hgb 9.2 L (11.4-16.0) gm/dL Hct 30.5 L (34.0-46.0) % MCH 24.3 L (25.0-35.0) pg MCHC 30.0 L (31.0-37.0) g/dL RDW 15.9 H (11.5-15.5) % Glucose 249 H (74-99) mg/dL POC Glucose (mg/dL) 236 H (75-99) mg/dL Albumin 3.1 L (3.5-5.0) g/dL 12/20/16 Range/Units 17:10 RBC (3.80-5.40) m/uL Hgb (11.4-16.0) gm/dL Hct (34.0-46.0) % MCH (25.0-35.0) pg MCHC (31.0-37.0) g/dL RDW (11.5-15.5) % Glucose (74-99) mg/dL POC Glucose (mg/dL) 221 H (75-99) mg/dL Albumin (3.5-5.0) g/dL Laboratory Results WBC 4.9 k/uL (3.8-10.6) 12/20/16 15:30 RBC 3.76 m/uL (3.80-5.40) L 12/20/16 15:30 Hgb 9.2 gm/dL (11.4-16.0) L 12/20/16 15:30 Hct 30.5 % (34.0-46.0) L 12/20/16 15:30 MCV 81.1 fL (80.0-100.0) 12/20/16 15:30 MCH 24.3 pg (25.0-35.0) L 12/20/16 15:30 MCHC 30.0 g/dL (31.0-37.0) L 12/20/16 15:30 RDW 15.9 % (11.5-15.5) H 12/20/16 15:30 Plt Count 172 k/uL (150-450) 12/20/16 15:30 Neutrophils % 60 % 12/20/16 15:30 Lymphocytes % 25 % 12/20/16 15:30 Monocytes % 6 % 12/20/16 15:30 Eosinophils % 5 % 12/20/16 15:30 Basophils % 1 % 12/20/16 15:30 Neutrophils # 3.0 k/uL (1.3-7.7) 12/20/16 15:30 Lymphocytes # 1.2 k/uL (1.0-4.8) 12/20/16 15:30 Monocytes # 0.3 k/uL (0-1.0) 12/20/16 15:30 Eosinophils # 0.2 k/uL (0-0.7) 12/20/16 15:30 Basophils # 0.0 k/uL (0-0.2) 12/20/16 15:30 Hypochromasia Marked 12/20/16 15:30 Anisocytosis Slight 12/17/16 19:15 Microcytosis Slight 12/17/16 19:15 PT 11.0 sec (9.0-12.0) 12/17/16 19:15 INR 1.1 (<1.1) 12/17/16 19:15 APTT 20.6 sec (22.0-30.0) L 12/17/16 19:15 Sodium 139 mmol/L (137-145) 12/20/16 15:30 Potassium 3.8 mmol/L (3.5-5.1) 12/20/16 15:30 Chloride 107 mmol/L (98-107) 12/20/16 15:30 Carbon Dioxide 22 mmol/L (22-30) 12/20/16 15:30 Anion Gap 10 mmol/L 12/20/16 15:30 BUN 16 mg/dL (7-17) 12/20/16 15:30 Creatinine 0.90 mg/dL (0.52-1.04) 12/20/16 15:30 Est GFR (MDRD) Af Amer >60 (>60 ml/min/1.73 sqM) 12/20/16 15:30 Est GFR (MDRD) Non-Af >60 (>60 ml/min/1.73 sqM) 12/20/16 15:30 Glucose 249 mg/dL (74-99) H 12/20/16 15:30 POC Glucose (mg/dL) 221 mg/dL (75-99) H 12/20/16 17:10 POC Glu Social Sciences Professor ID 12/20/16 17:[address] Glu mg/dL 243 mg/dL 12/17/16 22:33 Hemoglobin A1c 10.1 % (4.2-6.1) H 12/17/16 22:33 Plasma Lactic Acid [place] 0.9 mmol/L (0.7-2.0) 12/17/16 22:45 Calcium 8.8 mg/dL (8.4-10.2) 12/20/16 15:30 Total Bilirubin 0.4 mg/dL (0.2-1.3) 12/20/16 15:30 AST 20 U/L (14-36) 12/20/16 15:30 ALT 27 U/L (9-52) 12/20/16 15:30 Alkaline Phosphatase 82 U/L (38-126) 12/20/16 15:30 Total Protein 6.6 g/dL (6.3-8.2) 12/20/16 15:30 Albumin 3.1 g/dL (3.5-5.0) L 12/20/16 15:30 Urine Color Yellow 12/17/16 19:40 Urine Appearance Clear (Clear) 12/17/16 19:40 Urine pH 8.0 (5.0-8.0) 12/17/16 19:40 Ur Specific [place] 1.005 (1.001-1.035) 12/17/16 19:40 Urine Protein Negative (Negative) 12/17/16 19:40 Urine Glucose (UA) Negative (Negative) 12/17/16 19:40 Urine Ketones Negative (Negative) 12/17/16 19:40 Urine Blood Negative (Negative) 12/17/16 19:40 Urine Nitrate Negative (Negative) 12/17/16 19:40 Urine Bilirubin Negative (Negative) 12/17/16 19:40 Urine Urobilinogen <2.0 mg/dL (<2.0) 12/17/16 19:40 Ur Leukocyte Esterase Trace (Negative) H 12/17/16 19:40 Urine RBC <1 /hpf (0-5) 12/17/16 19:40 Urine WBC 1 /hpf (0-5) 12/17/16 19:40 Ur Squamous Epith Cells 1 /hpf (0-4) 12/17/16 19:40 Microbiology 12/17/16 19:40 Urine,Voided Urine Culture - Final Enterococcus gallinarum 12/17/16 19:15 Blood Blood Culture - Preliminary No Growth after 48 hours Assessment and Plan (1) Osteomyelitis of left foot Narrative/Plan: 41-year-old female with a history of diabetes mellitus type 2 with many complications, recent hemoglobin A1c was 10.1. 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 Is being treated with ceftriaxone and metronidazole. Potentially the abscess to the foot was the nidus of infection. She's now had incision and drainage and with local wound care is improving. Overall she's feeling somewhat better. Blood sugars are trending to improvement. Personality leukocytosis has improved. Patient already has a PICC line in place for outpatient intravenous antibiotic therapy. She'll follow in the wound healing center after her discharge. Local wound care is with dehydrating silver dressing which can be changed 3 times per week at this point in time. Status: Acute (2) Sepsis Status: Acute (3) Leukocytosis Status: Acute
[2016-12-20] MEDS: INSULIN GLARGINE 100 UNIT/ML 10 ML VIAL SQ SCH (20:20)
[2016-12-20 20:31] LABS: Glucose,Whole Blood 96 mg/dL (75-99)
[2016-12-21] MEDS: HEPARIN SODIUM,PORCINE 5,000 UNIT/ML 1 ML VIAL SQ SCH ×3 (00:33→15:59)
[2016-12-21] MEDS: SODIUM CHLORIDE 0.9% 1,000 ML IV SCH ×2 (00:34→18:24)
--- NOTE | 2016-12-21 06:07 | PN ---
DATE OF SERVICE: 12/20/2016 PRESENTING COMPLAINT: Fever, chills. INTERVAL HISTORY: This patient was recently diagnosed with endocarditis at [facility] and questionable vegetation of the pacemaker leads presented yet again with sepsis-like picture and is continued on antibiotics. Patient being followed by Infectious Disease. Feeling a bit better today. Less tired, lying in bed. Review of systems done for constitutional, cardiovascular, GI, pulmonary; relevant findings as above. Current medications are reviewed that include IV ceftaroline and p.o. Flagyl. On examination, temperature 98, pulse 71, respirations 16, blood pressure 101/50, pulse ox 98% on room air. GENERAL APPEARANCE: Lying in bed, more perky. EYES: Pupils equal. Conjunctivae normal. NECK: JVD not raised. Mass not palpable. RESPIRATORY: Effort normal. LUNGS: Diminished breath sounds. CARDIOVASCULAR: First and second sounds normal. No edema. ABDOMEN: Soft, nontender. Liver and spleen not palpable. EXTREMITIES: Wound on the plantar surface of the right foot and also on the plantar surface of left foot with incisions on the dorsum of the left foot. INVESTIGATIONS: White count 4.9, hemoglobin 9.2. Potassium 3.8. BUN and creatinine normal. Patient's blood cultures are negative until now. Urine cultures growing Enterococcus gallinarum. ASSESSMENT: 1. Sepsis suspected in patient who was just diagnosed to have endocarditis on November ( ) at [facility], had streptococcal methicillin-susceptible Staphylococcus aureus in the blood and questionable vegetation on the defibrillator leads. Clinically feeling a bit better right now. 2. Diabetic foot, ulcers both on the right foot and left foot on the plantar aspect and on the dorsal left foot. 3. Chronic obstructive pulmonary disease in a recent smoker. 4. Diabetes mellitus type 2, chronically on insulin causing peripheral neuropathy. 5. Essential hypertension. 6. Hyperlipidemia. 7. Cardiomyopathy; ejection fraction 30% to 35%. 8. Acute urinary tract infection. Urine culture growing Enterococcus gallinarum. PLAN: Continue current medication and treatment, antibiotics. Await further input from ID. Care was discussed with the patient. Will follow.
[2016-12-21 06:49] LABS: Glucose,Whole Blood 130 mg/dL (75-99)
[2016-12-21] MEDS: ALBUTEROL NEBULIZED 2.5 MG/3 ML INHALATION SCH ×4 (07:24→21:15)
[2016-12-21] MEDS: FUROSEMIDE 80 MG TAB PO SCH (07:49)
[2016-12-21] MEDS: LISINOPRIL 10 MG TAB PO SCH (07:49)
[2016-12-21] MEDS: DIGOXIN 250 MCG TAB PO SCH (07:50)
[2016-12-21] MEDS: GABAPENTIN 300 MG CAP PO SCH ×2 (07:50→20:32)
[2016-12-21] MEDS: acetaZOLAMIDE 250 MG TAB PO SCH ×2 (07:50→20:32)
[2016-12-21] MEDS: metroNIDAZOLE 500 MG TAB PO SCH ×3 (07:50→20:32)
[2016-12-21] MEDS: CARVEDILOL 12.5 MG TAB PO SCH ×2 (07:50→17:52)
[2016-12-21] MEDS: SPIRONOLACTONE 25 MG TAB PO SCH ×2 (07:50→16:00)
[2016-12-21] MEDS: INSULIN LISPRO (humaLOG) 300 UNIT/3 ML VIAL SQ SCH ×7 (07:51→20:33)
[2016-12-21] MEDS: ACETAMINOPHEN TAB 325 MG TAB PO PRN ×2 (07:55→15:59)
[2016-12-21 11:18] LABS: Glucose,Whole Blood 208 mg/dL (75-99)
[2016-12-21] MEDS: CEFTAROLINE FOSAMIL 600 MG in SODIUM CHLORIDE 0.9% 250 ML IVPB SCH ×2 (12:31→20:35)
[2016-12-21] MEDS: FUROSEMIDE 40 MG TAB PO SCH (15:59)
[2016-12-21 17:10] LABS: Glucose,Whole Blood 100 mg/dL (75-99)
[2016-12-21 20:30] LABS: Glucose,Whole Blood 145 mg/dL (75-99)
[2016-12-21] MEDS: INSULIN GLARGINE 100 UNIT/ML 10 ML VIAL SQ SCH (20:31)
--- NOTE | 2016-12-21 20:35 | P.PN ---
Subjective Principal diagnosis: Sepsis 41-year-old female presents to Hospital with evidence of fever or tachycardia and hypotension. With concerns to sepsis she was admitted to hospital. This was of significance was a recent hospitalization at [facility]. 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 Apparently this was left in place and she's been treating with antibiotic therapy with Rocephin and metronidazole. She is having difficulties with ongoing abscess to her feet. While she was at the outside hospital and incision and drainage was performed for an abscess on the dorsum of her left foot. Which is now improving. The patient is relating that she is now feeling considerably better. Other than some pain at the wound site she is denying fevers, chills or rigors. Appetite is going well. No nausea or emesis or diarrhea. Patient does relate she's feeling better again today. No further fevers. Tachycardia has resolved. Objective - Vital Signs Vital signs: Vital Signs Temp 96.5 F L 12/21/16 14:39 Pulse 70 12/21/16 14:39 Resp 16 12/21/16 14:39 BP 111/56 12/21/16 14:39 Pulse Ox 99 12/21/16 14:39 Intake & Output 12/21/16 12/21/16 12/22/16 06:59 18:59 06:59 Intake Total 1250 Balance 1250 Intake: Intake, IV Titration 1000 Amount Sodium Chloride 0.9% 1, 1000 000 ml @ 100 mls/hr IV . Q10H [facility] Rx#:[id number] Oral 250 Other: Voiding Method Toilet # Voids 1 - Exam 41-year-old woman who is quite comfortable at this time. HEENT: Anicteric conjunctiva are pink and moist nasal mucosa grossly intact without significant lesions, there is no thrush. Neck: The neck is supple without significant lymphadenopathy or thyromegaly. Lungs: Good bilateral air entry without significant crackles or wheezing. There is no significant bronchial sounds. There is no egophony or dullness. Heart: Regular rate and rhythm with an audible S1-S2, no S3 positive S4 There is no significant murmur click or rub, PMI was nondisplaced. Abdomen: Positive bowel sounds soft and nontender without palpable masses or organomegaly. There was no guarding or rebound. Extremities: The upper extremities are without lesions Please refer to the nursing photography for the multiple ulcerations of the lower extremities. Left foot has evidence of the dorsum of the foot with the to surgical incision and drainage sites, as well as a to plantar ulcerations on the great toe and one of the third metatarsal head. It has the chronic ulceration to the right great toe plantar surface. None of them have purulence. The dressings are changed at this time, the hydrating silver dressing is put into place. Neuro: Awake alert oriented to person place and time. There are no acute new gross focal sensory motor deficits. - Labs CBC & Chem 7: 12/20/16 15:30 12/20/16 15:30 Labs: Abnormal Lab Results - Last 24 Hours (Table) 12/21/16 12/21/16 12/21/16 Range/Units 06:46 11:10 17:06 POC Glucose (mg/dL) 130 H 208 H 100 H (75-99) mg/dL 12/21/16 Range/Units 20:29 POC Glucose (mg/dL) 145 H (75-99) mg/dL Laboratory Results WBC 4.9 k/uL (3.8-10.6) 12/20/16 15:30 RBC 3.76 m/uL (3.80-5.40) L 12/20/16 15:30 Hgb 9.2 gm/dL (11.4-16.0) L 12/20/16 15:30 Hct 30.5 % (34.0-46.0) L 12/20/16 15:30 MCV 81.1 fL (80.0-100.0) 12/20/16 15:30 MCH 24.3 pg (25.0-35.0) L 12/20/16 15:30 MCHC 30.0 g/dL (31.0-37.0) L 12/20/16 15:30 RDW 15.9 % (11.5-15.5) H 12/20/16 15:30 Plt Count 172 k/uL (150-450) 12/20/16 15:30 Neutrophils % 60 % 12/20/16 15:30 Lymphocytes % 25 % 12/20/16 15:30 Monocytes % 6 % 12/20/16 15:30 Eosinophils % 5 % 12/20/16 15:30 Basophils % 1 % 12/20/16 15:30 Neutrophils # 3.0 k/uL (1.3-7.7) 12/20/16 15:30 Lymphocytes # 1.2 k/uL (1.0-4.8) 12/20/16 15:30 Monocytes # 0.3 k/uL (0-1.0) 12/20/16 15:30 Eosinophils # 0.2 k/uL (0-0.7) 12/20/16 15:30 Basophils # 0.0 k/uL (0-0.2) 12/20/16 15:30 Hypochromasia Marked 12/20/16 15:30 Anisocytosis Slight 12/17/16 19:15 Microcytosis Slight 12/17/16 19:15 PT 11.0 sec (9.0-12.0) 12/17/16 19:15 INR 1.1 (<1.1) 12/17/16 19:15 APTT 20.6 sec (22.0-30.0) L 12/17/16 19:15 Sodium 139 mmol/L (137-145) 12/20/16 15:30 Potassium 3.8 mmol/L (3.5-5.1) 12/20/16 15:30 Chloride 107 mmol/L (98-107) 12/20/16 15:30 Carbon Dioxide 22 mmol/L (22-30) 12/20/16 15:30 Anion Gap 10 mmol/L 12/20/16 15:30 BUN 16 mg/dL (7-17) 12/20/16 15:30 Creatinine 0.90 mg/dL (0.52-1.04) 12/20/16 15:30 Est GFR (MDRD) Af Amer >60 (>60 ml/min/1.73 sqM) 12/20/16 15:30 Est GFR (MDRD) Non-Af >60 (>60 ml/min/1.73 sqM) 12/20/16 15:30 Glucose 249 mg/dL (74-99) H 12/20/16 15:30 POC Glucose (mg/dL) 145 mg/dL (75-99) H 12/21/16 20:29 POC Glu Dialysis Chief Equipment Technician ID Priscilla Okeefe 12/21/16 20:[address] Glu mg/dL 243 mg/dL 12/17/16 22:33 Hemoglobin A1c 10.1 % (4.2-6.1) H 12/17/16 22:33 Plasma Lactic Acid Warren 0.9 mmol/L (0.7-2.0) 12/17/16 22:45 Calcium 8.8 mg/dL (8.4-10.2) 12/20/16 15:30 Total Bilirubin 0.4 mg/dL (0.2-1.3) 12/20/16 15:30 AST 20 U/L (14-36) 12/20/16 15:30 ALT 27 U/L (9-52) 12/20/16 15:30 Alkaline Phosphatase 82 U/L (38-126) 12/20/16 15:30 Total Protein 6.6 g/dL (6.3-8.2) 12/20/16 15:30 Albumin 3.1 g/dL (3.5-5.0) L 12/20/16 15:30 Urine Color Yellow 12/17/16 19:40 Urine Appearance Clear (Clear) 12/17/16 19:40 Urine pH 8.0 (5.0-8.0) 12/17/16 19:40 Ur Specific Parlin 1.005 (1.001-1.035) 12/17/16 19:40 Urine Protein Negative (Negative) 12/17/16 19:40 Urine Glucose (UA) Negative (Negative) 12/17/16 19:40 Urine Ketones Negative (Negative) 12/17/16 19:40 Urine Blood Negative (Negative) 12/17/16 19:40 Urine Nitrate Negative (Negative) 12/17/16 19:40 Urine Bilirubin Negative (Negative) 12/17/16 19:40 Urine Urobilinogen <2.0 mg/dL (<2.0) 12/17/16 19:40 Ur Leukocyte Esterase Trace (Negative) H 12/17/16 19:40 Urine RBC <1 /hpf (0-5) 12/17/16 19:40 Urine WBC 1 /hpf (0-5) 12/17/16 19:40 Ur Squamous Epith Cells 1 /hpf (0-4) 12/17/16 19:40 Microbiology 12/17/16 19:15 Blood Blood Culture - Preliminary No Growth after 72 hours 12/17/16 19:40 Urine,Voided Urine Culture - Final Enterococcus gallinarum Assessment and Plan (1) Osteomyelitis of left foot Narrative/Plan: 41-year-old female with a history of diabetes mellitus type 2 with many complications, recent hemoglobin A1c was 10.1. 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 Is being treated with Ceftaroline and metronidazole. Potentially the abscess to the foot was the nidus of infection. She's now had incision and drainage and with local wound care is improving. Overall she's feeling somewhat better. Blood sugars are trending to improvement. Personality leukocytosis has improved. Patient already has a PICC line in place for outpatient intravenous antibiotic therapy. She'll follow in the wound healing center after her discharge. Local wound care is with dehydrating silver dressing which can be changed 3 times per week at this point in time. As to the antibiotic therapy. She was on ceftriaxone at home. Presents with evidence of ongoing sepsis. Constantly antibiotic therapy was changed to Ceftaroline as well as metronidazole. She is now much improved. Prescriptions are left for her to use Ceftaroline at home and oral metronidazole. Likely discharge tomorrow once these arrangements are made. Status: Acute (2) Sepsis Status: Acute (3) Leukocytosis Status: Acute
[2016-12-21 21:12] VITALS: BP 126/58; PULSE 72; RESP 18; TEMP 98.6
--- NOTE | 2016-12-22 16:24 | DS ---
DATE OF ADMISSION: 12/17/2016 DATE OF DISCHARGE: 12/21/2016 FINAL DIAGNOSIS(ES): 1. Sepsis in a patient recently diagnosed to have ( ) at [facility] growing streptococcal and Methicillin-susceptible Staph aureus in the blood. 2. Diabetic foot ulcers on both the right foot and left foot. 3. Chronic obstructive pulmonary disease in a recent smoker. 4. Type 2 diabetes mellitus, chronically on insulin causing peripheral neuropathy. 5. Essential hypertension. 6. Hyperlipidemia. 7. Cardiomyopathy; ejection fraction 30% to 35%. 8. Acute urinary tract infection urine culture growing enterococcus ( ). CONSULTATION: Dr. Alvarez/Dr. Blake from Infectious disease. HOSPITAL COURSE: Multiple problems including recently patient being at [facility], streptococcus and MSSA and there is a question about vegetation in the AICD leads. Patient is discharged home ( ) IV ceftriaxone. Presented to have a septic picture. Cultures grew enterococcus ( ) in the urine. Blood cultures negative. The patient was changed to the current antibiotic to which she responded well. The patient clinically feeling much better. Afebrile. DISCHARGE MEDICATIONS: 1. Coreg 25 mg p.o. b.i.d. 2. Lasix 40 mg at 4:00 p.m. and 80 mg in morning. 3. Aldactone 25 mg b.i.d. 4. Digoxin 250 mcg a day. 5. Ventolin 2 puffs q.6 p.r.n. 6. Lantus 40 units subcutaneously at bedtime. 7. Lisinopril 10 mg a day. 8. Tylenol 650 mg p.o. daily p.r.n. 9. Neurontin 600 mg p.o. b.i.d. 10. Diamox 5 mg p.o. b.i.d. 11. NovoLog 20 units subcu a.c. t.i.d. 12. DuoNeb 3 mL q.i.d. p.r.n. 13. Teflaro 600 mg IV piggyback q.12 for 14 days. 14. Flagyl 500 mg p.o. t.i.d. 42 tablets. Follow up with Dr. Causey on 12/23/2016, follow-up with Dr. Alvarez 12/24/2016. LABS: CBC, BMP in 3 days and ( ) home infusion in place. On exam, lungs are clear. CARDIOVASCULAR: First and second seconds normal. More details in the chart.
== END 2016-12-21 22:41 | disposition home health service (06) | DRG 871 ==
LOC: EC 18:03 → 3SUR 22:30
PROVIDERS: ADMIT Hospitalist; ATTEND Hospitalist
DX: A41.01 Sepsis due to Methicillin susceptible Staphylococcus aureus (principal); I33.0 Acute and subacute infective endocarditis; I11.0 Hypertensive heart disease with heart failure; I95.9 Hypotension, unspecified; I42.9 Cardiomyopathy, unspecified; I50.9 Heart failure, unspecified; E11.42 Type 2 diabetes mellitus with diabetic polyneuropathy; N39.0 Urinary tract infection, site not specified; J44.9 Chronic obstructive pulmonary disease, unspecified; L89.892 Pressure ulcer of other site, stage 2; B95.2 Enterococcus as the cause of diseases classified elsewhere; R00.0 Tachycardia, unspecified; I69.328 Other speech and language deficits following cerebral infarction; I69.311 Memory deficit following cerebral infarction; E11.621 Type 2 diabetes mellitus with foot ulcer; L97.519 Non-pressure chronic ulcer of other part of right foot with unspecified severity; I25.2 Old myocardial infarction; J45.909 Unspecified asthma, uncomplicated; I25.10 Atherosclerotic heart disease of native coronary artery without angina pectoris; R53.1 Weakness; E78.5 Hyperlipidemia, unspecified; I83.90 Asymptomatic varicose veins of unspecified lower extremity; G40.909 Epilepsy, unspecified, not intractable, without status epilepticus; F12.90 Cannabis use, unspecified, uncomplicated; Z87.891 Personal history of nicotine dependence; Z87.01 Personal history of pneumonia (recurrent); Z86.19 Personal history of other infectious and parasitic diseases; Z88.0 Allergy status to penicillin; Z80.9 Family history of malignant neoplasm, unspecified; Z79.2 Long term (current) use of antibiotics; Z79.4 Long term (current) use of insulin; Z79.899 Other long term (current) drug therapy; Z82.49 Family history of ischemic heart disease and other diseases of the circulatory system; Z95.810 Presence of automatic (implantable) cardiac defibrillator; Z89.411 Acquired absence of right great toe
CPT/HCPCS: 11042; 36415; 71020; 80053; 81001; 83036; 83605; 85025; 85610; 85730; 87040; 87077; 87086; 87186; 94640; 94760; 96361; 96365; 96367; 99285

== ENCOUNTER → 2016-12-30 | Outpatient (CLI) | payer MEDICARE, OTHER ==
--- NOTE | 2016-12-31 12:10 | NM ---
EXAMINATION TYPE: NM WBC limited DATE OF EXAM: 12/31/2016 12:00 PM COMPARISON: 10/28/2016 HISTORY: Left foot and great toe with open sore TECHNIQUE: Following administration of 38.5 mCi Tc99m Ceretec. Images obtained 4 hour(s) and 24 gemma r(s) post injection. FINDINGS: 4 hour uptake demonstrates intense abnormal uptake involving the right second toe and there remains i ncreased uptake on delayed images. IMPRESSION: 1. Positive exam involving the right second toe correlate for osteomyelitis.
== END | disposition home or self-care (01) ==
LOC: RADNMMAIN 06:49
PROVIDERS: ATTEND Podiatrist
DX: M86.372 Chronic multifocal osteomyelitis, left ankle and foot (principal)
CPT/HCPCS: 78805; A9521

== ENCOUNTER → 2017-05-16 | Outpatient (CLI) | payer MEDICARE, OTHER ==
[2017-05-16 11:14] LABS: Anisocytosis Slight; Basophils % (A) 0 %; CH 23.3; CHCM 30.4; Eosinophils # (A) 0.5 k/uL (0-0.7); Eosinophils % (A) 5 %; HCT 35.4 % (34.0-46.0); HDW 3.36; HGB 10.7 gm/dL (11.4-16.0); Hypochromasia Marked; Luc % (Auto) 1; Lymphocytes # (A) 1.7 k/uL (1.0-4.8); Lymphocytes % (A) 17 %; MCH 23.4 pg (25.0-35.0); MCHC 30.3 g/dL (31.0-37.0); MCV 77.2 fL (80.0-100.0); Mean Platelet Volume 8.8; Microcytosis Slight; Monocytes # (A) 0.5 k/uL (0-1.0); Monocytes % (A) 5 %; Neutrophils % (A) 72 %; RBC 4.58 m/uL (3.80-5.40); RDW 17.4 % (11.5-15.5); WBC 9.7 k/uL (3.8-10.6); WBC (Perox) 10.69
[2017-05-16 11:19] LABS: ALT 26 U/L (9-52); AST 20 U/L (14-36); Alkaline Phosphatase 134 U/L (38-126); Anion Gap 16 mmol/L; Blood Urea Nitrogen 11 mg/dL (7-17); C Reactive Protein 22.1 mg/L (<10.0); Calcium 9.4 mg/dL (8.4-10.2); Carbon Dioxide 20 mmol/L (22-30); Chloride 107 mmol/L (98-107); Glucose 259 mg/dL (74-99); Non-African American GFR(MDRD) >60 (>60 ml/min/1.73 sqM); Potassium 4.7 mmol/L (3.5-5.1); Sodium 143 mmol/L (137-145); Total Bilirubin 0.4 mg/dL (0.2-1.3); Total Protein 7.6 g/dL (6.3-8.2)
[2017-05-16 11:24] LABS: Prealbumin 22 mg/dL (18-36)
[2017-05-16 12:03] LABS: Manual Review Performed
[2017-05-16 12:45] LABS: Erythrocyte Sedimentation Rate 53 mm/hr (0-20)
[2017-05-16 13:18] LABS: Hemoglobin A1C 8.7 % (4.2-6.1)
== END | disposition home or self-care (01) ==
LOC: LABWHC1 09:43
PROVIDERS: ATTEND Surgery Vascular Surgery
DX: E13.621 Other specified diabetes mellitus with foot ulcer (principal)
CPT/HCPCS: 36415; 80053; 83036; 84134; 85025; 85652; 86140

== ENCOUNTER 2017-06-11 11:40 | Emergency (ER) | payer MEDICARE, OTHER ==
[2017-06-11] MEDS ORDERED: KETOROLAC 30 MG/ML 1 ML VIAL IVP STA (11:48)
--- NOTE | 2017-06-11 11:51 | ED ---
Chest Pain HPI - General Stated Complaint: Chest Pain Time Seen by Provider: 06/11/17 11:43 Source: patient, RN notes reviewed - History of Present Illness Initial Comments: This is a 41-year-old female history of a pacemaker CHF Charcot foot who states she had the onset 2 days ago of intermittent episodes of left-sided upper chest pain. She sees normally and stabbing in nature associated with some shortness of breath some hot flashes but no sweats. She has had a cough is nonproductive. She is a smoker. She states today the pain was up to a 7/10 more of a tightness in much improved. She is not recall any overt chest this deepak any activity and she is very restricted. MD Complaint: chest pain - Related Data Home Medications Medication Instructions Recorded Confirmed Carvedilol [Coreg] 25 mg PO BID 03/04/15 06/11/17 Furosemide [Lasix] 40 mg PO BID 03/04/15 06/11/17 Spironolactone [Aldactone] 25 mg PO DAILY 03/04/15 06/11/17 Digoxin [Lanoxin] 250 mcg PO QAM 08/22/15 06/11/17 Albuterol Inhaler [Ventolin Hfa 2 puff INHALATION RT-Q6H PRN 07/29/16 06/11/17 Inhaler] Insulin Glargine [Lantus] 40 unit SQ QAM 07/29/16 06/11/17 Lisinopril 10 mg PO DAILY 07/29/16 06/11/17 Acetaminophen Tab [Tylenol] 650 mg PO TID PRN 09/06/16 06/11/17 Gabapentin 600 mg PO BID 10/10/16 06/11/17 acetaZOLAMIDE [Diamox Sequels] 500 mg PO BID 12/03/16 06/11/17 Insulin Aspart [NovoLOG] 20 unit SQ AC-TID 12/17/16 06/11/17 Sulfamethox-Tmp 800-160Mg [Bactrim 1 tab PO Q12HR 06/02/17 06/11/17 DS 800-160 mg] Gabapentin [Neurontin] 300 mg PO DAILY@1400 06/11/17 06/11/17 Previous Rx's Medication Instructions Recorded Cyclobenzaprine [Flexeril] 10 mg PO TID #14 tab 06/11/17 Ibuprofen 800 mg PO Q6HR PRN #20 tablet 06/11/17 Allergies Allergy/AdvReac Type Severity Reaction Status Date / Time Penicillins Allergy Rash/Hives Verified 06/11/17 12:23 Review of Systems ROS Statement: Those systems with pertinent positive or pertinent negative responses have been documented in the HPI. ROS Other: All systems not noted in ROS Statement are negative. EKG Findings - EKG Results: EKG: interpreted by ERMD, sinus rhythm (No acute changes this is compared with an EKG dated 11/23/16) Past Medical History Past Medical History: Asthma, Coronary Artery Disease (CAD), Heart Failure, CVA/ TIA, Diabetes Mellitus, Hypertension, Myocardial Infarction ([place]), Pneumonia, Seizure Disorder Additional Past Medical History / Comment(s): MINOR [place] 11/2013. CARDIOMYOPATHY. ASTHMA IN PAST, VARICOSE VEINS. Diabetic NEUROPATHY IN FEET. Chronic diabetic WOUNDS TO BOTH FEET, CVA IN AUGUST 2016 WITH SEIZURES, SOME RESIDUAL SPEECH AND MEMORY LOSS. PICC LINE PLACED IN AUGUST 2016 FOR OSTEOMYLITIS BOTH FEET, DR [facility] Last Myocardial Infarction Date:: 11/2013 History of Any Multi-Drug Resistant Organisms: VRE Date of last positivie culture/infection: 04/22/17 MDRO Source:: RIGHT FOOT EC.FAECIUM Past Surgical History: Adenoidectomy, AICD, Section, Heart Catheterization, Orthopedic Surgery, Pacemaker, Tonsillectomy Additional Past Surgical History / Comment(s): AICD - [employer]. has pacemaker defibrillator, right great toe amputation. GREAT TOE RIGHT FOOT AMPUTATION 2015 Past Anesthesia/Blood Transfusion Reactions: No Reported Reaction Type of Cardiac Device: AICD Device Placement Date:: 2011 Past Psychological History: No Psychological Hx Reported Additional Psychological History / Comment(s): Single. Lives in the family home with her 2 children, as well as her son-in-law. There are 2 pet cats in the home. No experience. No travel history. 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 No significant of alcohol or recreational drug use. Is an ongoing daily tobacco user. No significant of alcohol or recreational drug use. Smoking Status: Current every day smoker Past Alcohol Use History: None Reported Additional Past Alcohol Use History / Comment(s): STARTED SMOKING AT AGE 12 SMOKES 4-5 CIG PER DAY Past Drug Use History: Marijuana Additional Drug Use History / Comment(s): medical marijuana card - Past Family History Mother Family Medical History: Deep Vein Thrombosis (DVT) Additional Family Medical History / Comment(s): kidney failure. Father History Unknown: Yes Family Medical History: Cancer General Exam - General Exam Comments Initial Comments: This is a well-developed well-nourished awake alert oriented 3 female General appearance: alert, anxious Head exam: Present: atraumatic, normocephalic, normal inspection Eye exam: Present: normal appearance, PERRL, EOMI. Absent: scleral icterus, conjunctival injection, periorbital swelling ENT exam: Present: normal exam, mucous membranes moist Neck exam: Present: normal inspection. Absent: tenderness, meningismus, lymphadenopathy Respiratory exam: Present: normal lung sounds bilaterally, chest wall tenderness (Reproducible tenderness palpation along the left costochondral margin. No step-off no crepitation). Absent: respiratory distress, wheezes, rales, rhonchi, stridor Cardiovascular Exam: Present: regular rate, normal rhythm, normal heart sounds. Absent: systolic murmur, diastolic murmur, rubs, gallop, clicks GI/Abdominal exam: Present: soft, normal bowel sounds. Absent: distended, tenderness, guarding, rebound, rigid Extremities exam: Present: full ROM, normal capillary refill, other (Patient does have bandages on the lower extremities she does have foot ulcers.). Absent : tenderness, pedal edema, joint swelling, calf tenderness Back exam: Present: normal inspection Neurological exam: Present: alert, oriented X3, CN II-XII intact Psychiatric exam: Present: normal affect, normal mood Skin exam: Present: warm, dry, intact, normal color. Absent: rash Course Vital Signs 06/11/17 06/11/17 06/11/17 11:57 13:22 14:34 Temperature 97.9 F 98.7 F Pulse Rate 74 72 70 Respiratory 18 18 Rate Blood Pressure 158/72 144/67 126/58 O2 Sat by Pulse 96 99 99 Oximetry Chest Pain MDM - MDM I did review the imaging and reports no acute findings the study was suboptimal however. I did discuss findings with the patient the pain is likely chest wall pain/costochondritis patient will be discharged on appropriate medication she is a follow-up with her doctor and return when necessary Disposition Clinical Impression: Costalchondritis, Chest wall syndrome Disposition: HOME SELF-CARE Condition: Good Instructions: Costochondritis (ED), Chest Pain (ED) Prescriptions: Cyclobenzaprine [Flexeril] 10 mg PO TID #14 tab Ibuprofen 800 mg PO Q6HR PRN #20 tablet PRN Reason: Pain Referrals: Dylan Causey MD [Primary Care Provider] - 1-2 days
[2017-06-11 11:57] LABS: Glucose,Whole Blood 323 mg/dL (75-99)
[2017-06-11 11:59] VITALS: RESP 18
[2017-06-11 12:08] LABS: Anisocytosis Slight; Basophils # (A) 0.1 k/uL (0-0.2); Basophils % (A) 1 %; CHCM 30.2; Eosinophils # (A) 0.6 k/uL (0-0.7); Eosinophils % (A) 5 %; HCT 32.1 % (34.0-46.0); HDW 3.36; Hypochromasia Marked; Luc # (Auto) 0.16; Luc % (Auto) 2; Lymphocytes # (A) 2.2 k/uL (1.0-4.8); Lymphocytes % (A) 20 %; MCH 23.8 pg (25.0-35.0); MCV 76.7 fL (80.0-100.0); Mean Platelet Volume 8.9; Microcytosis Slight; Monocytes # (A) 0.4 k/uL (0-1.0); Monocytes % (A) 3 %; Neutrophils # (A) 7.7 k/uL (1.3-7.7); Neutrophils % (A) 70 %; RBC 4.19 m/uL (3.80-5.40); RDW 17.2 % (11.5-15.5); WBC 11.1 k/uL (3.8-10.6); WBC (Perox) 10.63
--- NOTE | 2017-06-11 12:14 | XR ---
EXAMINATION TYPE: XR chest 2V DATE OF EXAM: 06/11/2017 COMPARISON: Chest x-ray December 18, 2016. HISTORY: Chest pain and discomfort. TECHNIQUE: Frontal and lateral views of the chest are obtained. FINDINGS: Some eventration of right hemidiaphragm is redemonstrated. There is no new focal air space opacity, pleural effusion, or pneumothorax seen. Minimal residual left basilar linear scarring or at electasis is present. The cardiac silhouette size is stable and upper limits of normal with multilead pacemaker/AICD. The osseous structures are intact. IMPRESSION: No acute cardiopulmonary process currently.
[2017-06-11 12:15] LABS: ALT 25 U/L (9-52); AST 19 U/L (14-36); Alkaline Phosphatase 99 U/L (38-126); Anion Gap 12 mmol/L; Blood Urea Nitrogen 11 mg/dL (7-17); Calcium 8.8 mg/dL (8.4-10.2); Carbon Dioxide 19 mmol/L (22-30); Chloride 110 mmol/L (98-107); Glucose 302 mg/dL (74-99); Magnesium 1.8 mg/dL (1.6-2.3); Non-African American GFR(MDRD) >60 (>60 ml/min/1.73 sqM); Potassium 4.6 mmol/L (3.5-5.1); Sodium 141 mmol/L (137-145); Total Bilirubin 0.2 mg/dL (0.2-1.3)
[2017-06-11 12:17] LABS: Partial Thromboplastin Time 23.3 sec (22.0-30.0); Prothrombin Time 9.9 sec (9.0-12.0)
[2017-06-11 12:22] LABS: Creatine Kinase 81 U/L (30-135)
[2017-06-11 12:35] LABS: Troponin I <0.012 ng/mL (0.000-0.034)
[2017-06-11 12:42] LABS: Creatine Kinase MB 5.9 ng/mL (0.0-2.4)
[2017-06-11] MEDS ORDERED: RX INFO: IV CONTRAST WAS GIVEN 1 EACH MISC MISCELLANE PRN (13:41)
--- NOTE | 2017-06-11 15:04 | CT ---
EXAMINATION TYPE: CT angio chest DATE OF EXAM: 06/11/2017 COMPARISON: CTA chest December 26, 2013 HISTORY: Chest pain and shortness of breath CT DLP: 527.1 mGycm. Automated Exposure Control for Dose Reduction was Utilized. CONTRAST: CTA scan of the thorax is performed with IV Contrast, patient injected with 100 mL of Omnipaque 350, pulmonary embolism protocol. MIP Images are created on CT scanner and reviewed. FINDINGS: LUNGS: Exam is degraded by patient large body habitus and respiratory motion artifact. There is persi stent scarring in the right middle lobe. No new suspicious opacification is present. No pleural effus ion or pneumothorax is seen bilaterally. No concerning mass or greater than 6 mm nodularity is presen t. MEDIASTINUM: There is suboptimal bolus but there is no convincing CT evidence for large saddle or lob ar pulmonary embolism. Smaller segmental and subsegmental PE though not clearly identified is not en tirely excluded on this study as most dense contrast is in SVC. Prominent bilateral hilar and subcari nal lymph nodes is unchanged from prior study. No pericardial effusion is seen. Main pulmonary mike ry measures 2.7 cm diameter on axial image 58. Adjacent aorta measures up to 3.2 cm in diameter. Ther e is redemonstration of cardiomegaly with mild to moderate left ventricular dilatation and multi lead pacemaker/AICD. OTHER: No additional significant abnormality is seen. IMPRESSION: 1. Suboptimal study without large central pulmonary embolism. Smaller segmental and subsegmental PE t goldy not visualized is not entirely excluded. 2. Cardiomegaly without suspicious acute pulmonary process.
[2017-06-11 15:52] VITALS: BP 95/51; PULSE 74; TEMP 98.1
== END 2017-06-11 15:54 | disposition home or self-care (01) ==
LOC: EC 11:40
DX: M94.0 Chondrocostal junction syndrome [Tietze] (principal); I25.10 Atherosclerotic heart disease of native coronary artery without angina pectoris; I50.9 Heart failure, unspecified; I10 Essential (primary) hypertension; I25.2 Old myocardial infarction; E11.40 Type 2 diabetes mellitus with diabetic neuropathy, unspecified; G40.909 Epilepsy, unspecified, not intractable, without status epilepticus; F17.210 Nicotine dependence, cigarettes, uncomplicated; Z79.4 Long term (current) use of insulin; Z79.899 Other long term (current) drug therapy; Z88.0 Allergy status to penicillin; Z95.810 Presence of automatic (implantable) cardiac defibrillator; Z95.818 Presence of other cardiac implants and grafts
CPT/HCPCS: 36415; 93005; 85379; 83880; 80053; 82550; 82553; 83735; 84484; 85025; 85610; 85730; 71020; 71275; 99285; 96374; Q9967; J1885

== ENCOUNTER 2017-08-07 10:43 | Emergency (ER) | payer MEDICARE, OTHER ==
[2017-08-07] MEDS ORDERED: SODIUM CHLORIDE 0.9% 500 ML IV STA (11:17)
--- NOTE | 2017-08-07 11:22 | ED ---
General Adult HPI - General Chief complaint: Neuro Symptoms/Deficit Stated complaint: left side numb Time Seen by Provider: 08/07/17 10:50 Source: patient, RN notes reviewed Mode of arrival: wheelchair Limitations: no limitations - History of Present Illness Initial comments: 41-year-old female has past medical history significant for cardiomyopathy as well as a pacemaker. Patient states she's also had a history of some congestive heart failure. Patient states this morning when she woke up she had a headache on the left side of her head. Patient states the headache has since subsided but now she feels foggy in her head and she's had some tingling in her left hand and left leg. Patient states she has full range of motion of her left leg and left arm. Patient denies any recent fever chills or cough. Patient denies difficulty breathing or shortness of breath per patient denies any chest pain or palpitations. Patient denies any recent injury or fall. Patient denies abdominal pain patient denies nausea vomiting diarrhea. Patient denies any episode of dizziness or near syncopal episode. States she ambulated fine when she went out to the car. - Related Data Home Medications Medication Instructions Recorded Confirmed Carvedilol [Coreg] 25 mg PO DAILY 03/04/15 08/07/17 Furosemide [Lasix] 40 mg PO BID 03/04/15 08/07/17 Spironolactone [Aldactone] 25 mg PO DAILY 03/04/15 08/07/17 Digoxin [Lanoxin] 250 mcg PO QAM 08/22/15 08/07/17 Insulin Glargine [Lantus] 40 unit SQ QAM 07/29/16 08/07/17 Lisinopril 10 mg PO DAILY 07/29/16 08/07/17 acetaZOLAMIDE [Diamox Sequels] 500 mg PO DAILY 12/03/16 08/07/17 Insulin Aspart [NovoLOG] 25 unit SQ AC-TID 12/17/16 08/07/17 Albuterol Inhaler [Ventolin Hfa 2 puff INHALATION RT-Q6H PRN 08/07/17 08/07/17 Inhaler] Previous Rx's Medication Instructions Recorded Gabapentin [Neurontin] 600 mg PO TID #90 tab 06/17/17 Allergies Allergy/AdvReac Type Severity Reaction Status Date / Time Penicillins Allergy Rash/Hives Verified 08/07/17 11:33 Review of Systems ROS Statement: Those systems with pertinent positive or pertinent negative responses have been documented in the HPI. ROS Other: All systems not noted in ROS Statement are negative. Past Medical History Past Medical History: Asthma, Coronary Artery Disease (CAD), Heart Failure, CVA/ TIA, Diabetes Mellitus, Hypertension, Myocardial Infarction ([place]), Pneumonia, Seizure Disorder Additional Past Medical History / Comment(s): MINOR [place] 11/2013. CARDIOMYOPATHY. ASTHMA IN PAST, VARICOSE VEINS. Diabetic NEUROPATHY IN FEET. Chronic diabetic WOUNDS TO BOTH FEET, CVA IN AUGUST 2016 WITH SEIZURES, SOME RESIDUAL SPEECH AND MEMORY LOSS. PICC LINE PLACED IN AUGUST 2016 FOR OSTEOMYLITIS BOTH FEET, DR VILLAREAL MANAGING ANTIBIOTICS Last Myocardial Infarction Date:: 11/2013 History of Any Multi-Drug Resistant Organisms: VRE Date of last positivie culture/infection: 04/22/17 MDRO Source:: RIGHT FOOT EC.[email or web address] Past Surgical History: Adenoidectomy, AICD, Section, Heart Catheterization, Orthopedic Surgery, Pacemaker, Tonsillectomy Additional Past Surgical History / Comment(s): AICD - [employer]. has pacemaker defibrillator, right great toe amputation. GREAT TOE RIGHT FOOT AMPUTATION 2015 Past Anesthesia/Blood Transfusion Reactions: No Reported Reaction Type of Cardiac Device: AICD Device Placement Date:: 2011 Past Psychological History: No Psychological Hx Reported Smoking Status: Current every day smoker Past Alcohol Use History: None Reported Past Drug Use History: Marijuana - Past Family History Mother Family Medical History: Deep Vein Thrombosis (DVT) Additional Family Medical History / Comment(s): kidney failure. Father History Unknown: Yes Family Medical History: Cancer General Exam - General Exam Comments Initial Comments: GENERAL: Patient is well-developed and well-nourished. Patient is nontoxic and well- hydrated and is in no acute distress. Patient seems a bit tired. ENT: Neck is soft and supple. No significant lymphadenopathy is noted. Oropharynx is clear. Moist mucous membranes. Neck has full range of motion without eliciting any pain. EYES: The sclera were anicteric and conjunctiva were pink and moist. Extraocular movements were intact and pupils were equal round and reactive to light. Eyelids were unremarkable. PULMONARY: Unlabored respirations. Good breath sounds bilaterally. No audible rales rhonchi or wheezing was noted. CARDIOVASCULAR: There is a regular rate and rhythm without any murmurs gallops or rubs. ABDOMEN: Soft and nontender with normal bowel sounds. No palpable organomegaly was noted. There is no palpable pulsatile mass. SKIN: Skin is clear with no lesions or rashes and otherwise unremarkable. NEUROLOGIC: Patient is alert and oriented x3. Cranial nerves II through XII are grossly intact. Motor and sensory are also intact. Normal speech, volume and content. Symmetrical smile. MUSCULOSKELETAL: Normal extremities with adequate strength and full range of motion. No lower extremity swelling or edema. No calf tenderness. LYMPHATICS: No significant lymphadenopathy is noted PSYCHIATRIC: Normal psychiatric evaluation. Normal interpersonal interactions appears functionally intact in deals appropriately with others. No signs of depression. No signs of anxiety. Limitations: no limitations Course Vital Signs 08/07/17 08/07/17 08/07/17 10:48 11:48 13:06 Temperature 98.6 F Pulse Rate 81 78 79 Respiratory 18 16 18 Rate Blood Pressure 145/83 146/67 151/67 O2 Sat by Pulse 100 96 95 Oximetry Medical Decision Making - Medical Decision Making EKG shows a paced rhythm at 71 bpm OR interval 178 QRSs 110 QT interval 394 QTC is 428. Patient's EKG shows no ST segment elevation or depression. Computed tomography scan of the brain shows no acute abnormality. Chest x-ray shows no acute normalities. Patient has been sleeping for the last hour and a half to 2 hours. I woke her up I spoke with her she states she is asymptomatic at this time would like to be discharged to follow-up with primary medical care doctor. Patient ambulated without problem. - Lab Data Result diagrams: 08/07/17 11:08 08/07/17 11:08 Lab Results 08/07/17 08/07/17 08/07/17 Range/Units 11:08 11:08 11:08 WBC 12.0 H (3.8-10.6) k/uL RBC 4.71 (3.80-5.40) m/uL Hgb 11.3 L (11.4-16.0) gm/dL Hct 35.6 (34.0-46.0) % MCV 75.6 L (80.0-100.0) fL MCH 24.0 L (25.0-35.0) pg MCHC 31.8 (31.0-37.0) g/dL RDW 17.1 H (11.5-15.5) % Plt Count 220 (150-450) k/uL Neutrophils % 75 % Lymphocytes % 15 % Monocytes % 3 % Eosinophils % 6 % Basophils % 0 % Neutrophils # 8.9 H (1.3-7.7) k/uL Lymphocytes # 1.8 (1.0-4.8) k/uL Monocytes # 0.3 (0-1.0) k/uL Eosinophils # 0.7 (0-0.7) k/uL Basophils # 0.0 (0-0.2) k/uL Hypochromasia Moderate Poikilocytosis Slight Anisocytosis Slight Microcytosis Slight PT (9.0-12.0) sec INR (<1.2) APTT (22.0-30.0) sec Sodium 139 (137-145) mmol/L Potassium 4.7 (3.5-5.1) mmol/L Chloride 103 (98-107) mmol/L Carbon Dioxide 21 L (22-30) mmol/L Anion Gap 15 mmol/L BUN 14 (7-17) mg/dL Creatinine 0.92 (0.52-1.04) mg/dL Est GFR (MDRD) Af Amer >60 (>60 ml/min/1.73 sqM) Est GFR (MDRD) Non-Af >60 (>60 ml/min/1.73 sqM) Glucose 317 H (74-99) mg/dL POC Glucose (mg/dL) (75-99) mg/dL POC Glu Vp Of [employer] ID Calcium 9.3 (8.4-10.2) mg/dL Total Bilirubin 0.4 (0.2-1.3) mg/dL AST 26 (14-36) U/L ALT 29 (9-52) U/L Alkaline Phosphatase 124 (38-126) U/L Total Creatine Kinase 133 (30-135) U/L CK-MB (CK-2) 7.5 H* (0.0-2.4) ng/mL CK-MB (CK-2) Rel Index 5.6 Troponin I <0.012 (0.000-0.034) ng/mL Total Protein 8.0 (6.3-8.2) g/dL Albumin 4.3 (3.5-5.0) g/dL Urine Opiates Screen (NotDetected) Ur Oxycodone Screen (NotDetected) Urine Methadone Screen (NotDetected) Ur Propoxyphene Screen (NotDetected) Ur Barbiturates Screen (NotDetected) U Tricyclic Antidepress (NotDetected) Ur Phencyclidine Scrn (NotDetected) Ur Amphetamines Screen (NotDetected) U Methamphetamines Scrn (NotDetected) U Benzodiazepines Scrn (NotDetected) Urine Cocaine Screen (NotDetected) U Marijuana (THC) Screen (NotDetected) 08/07/17 08/07/17 08/07/17 Range/Units 11:19 11:50 12:26 WBC (3.8-10.6) k/uL RBC (3.80-5.40) m/uL Hgb (11.4-16.0) gm/dL Hct (34.0-46.0) % MCV (80.0-100.0) fL MCH (25.0-35.0) pg MCHC (31.0-37.0) g/dL RDW (11.5-15.5) % Plt Count (150-450) k/uL Neutrophils % % Lymphocytes % % Monocytes % % Eosinophils % % Basophils % % Neutrophils # (1.3-7.7) k/uL Lymphocytes # (1.0-4.8) k/uL Monocytes # (0-1.0) k/uL Eosinophils # (0-0.7) k/uL Basophils # (0-0.2) k/uL Hypochromasia Poikilocytosis Anisocytosis Microcytosis PT 9.8 (9.0-12.0) sec INR 1.0 (<1.2) APTT 22.4 (22.0-30.0) sec Sodium (137-145) mmol/L Potassium (3.5-5.1) mmol/L Chloride (98-107) mmol/L Carbon Dioxide (22-30) mmol/L Anion Gap mmol/L BUN (7-17) mg/dL Creatinine (0.52-1.04) mg/dL Est GFR (MDRD) Af Amer (>60 ml/min/1.73 sqM) Est GFR (MDRD) Non-Af (>60 ml/min/1.73 sqM) Glucose (74-99) mg/dL POC Glucose (mg/dL) 295 H (75-99) mg/dL POC Glu Vp Of [employer] ID Hien David Calcium (8.4-10.2) mg/dL Total Bilirubin (0.2-1.3) mg/dL AST (14-36) U/L ALT (9-52) U/L Alkaline Phosphatase (38-126) U/L Total Creatine Kinase (30-135) U/L CK-MB (CK-2) (0.0-2.4) ng/mL CK-MB (CK-2) Rel Index Troponin I (0.000-0.034) ng/mL Total Protein (6.3-8.2) g/dL Albumin (3.5-5.0) g/dL Urine Opiates Screen Not Detected (NotDetected) Ur Oxycodone Screen Not Detected (NotDetected) Urine Methadone Screen Not Detected (NotDetected) Ur Propoxyphene Screen Not Detected (NotDetected) Ur Barbiturates Screen Not Detected (NotDetected) U Tricyclic Antidepress Not Detected (NotDetected) Ur Phencyclidine Scrn Not Detected (NotDetected) Ur Amphetamines Screen Not Detected (NotDetected) U Methamphetamines Scrn Not Detected (NotDetected) U Benzodiazepines Scrn Not Detected (NotDetected) Urine Cocaine Screen Not Detected (NotDetected) U Marijuana (THC) Screen Detected H (NotDetected) Disposition Clinical Impression: Paresthesia Disposition: HOME SELF-CARE Condition: Good Instructions: Paresthesia (ED) Referrals: Dylan Causey MD [Primary Care Provider] - 1-2 days Time of Disposition: 13:54
[2017-08-07 11:29] LABS: Anisocytosis Slight; Basophils % (A) 0 %; CH 23.8; CHCM 31.7; Eosinophils # (A) 0.7 k/uL (0-0.7); Eosinophils % (A) 6 %; HCT 35.6 % (34.0-46.0); HDW 3.63; HGB 11.3 gm/dL (11.4-16.0); Hypochromasia Moderate; Luc # (Auto) 0.11; Luc % (Auto) 1; Lymphocytes # (A) 1.8 k/uL (1.0-4.8); Lymphocytes % (A) 15 %; MCHC 31.8 g/dL (31.0-37.0); MCV 75.6 fL (80.0-100.0); Mean Platelet Volume 8.8; Microcytosis Slight; Monocytes # (A) 0.3 k/uL (0-1.0); Monocytes % (A) 3 %; Neutrophils # (A) 8.9 k/uL (1.3-7.7); Neutrophils % (A) 75 %; Poikilocytosis Slight; RBC 4.71 m/uL (3.80-5.40); RDW 17.1 % (11.5-15.5); WBC (Perox) 11.67
[2017-08-07 11:39] LABS: ALT 29 U/L (9-52); AST 26 U/L (14-36); Alkaline Phosphatase 124 U/L (38-126); Anion Gap 15 mmol/L; Blood Urea Nitrogen 14 mg/dL (7-17); Calcium 9.3 mg/dL (8.4-10.2); Carbon Dioxide 21 mmol/L (22-30); Chloride 103 mmol/L (98-107); Glucose 317 mg/dL (74-99); Non-African American GFR(MDRD) >60 (>60 ml/min/1.73 sqM); Potassium 4.7 mmol/L (3.5-5.1); Sodium 139 mmol/L (137-145); Total Bilirubin 0.4 mg/dL (0.2-1.3)
[2017-08-07 11:40] LABS: Glucose,Whole Blood 295 mg/dL (75-99)
[2017-08-07 11:53] LABS: Creatine Kinase 133 U/L (30-135)
[2017-08-07 12:06] LABS: Troponin I <0.012 ng/mL (0.000-0.034)
[2017-08-07 12:22] LABS: Creatine Kinase MB 7.5 ng/mL (0.0-2.4)
--- NOTE | 2017-08-07 12:35 | XR ---
EXAMINATION TYPE: XR chest 2V DATE OF EXAM: 08/07/2017 HISTORY: altered mental status. REFERENCE: Previous study dated 06/11/2017. FINDINGS: There is a multilead pacing device present on the left. The lungs are clear. Pleural space are clear. Heart size is upper limits of normal. IMPRESSION: BORDERLINE CARDIOMEGALY.
--- NOTE | 2017-08-07 12:37 | CT ---
EXAMINATION TYPE: CT brain wo con DATE OF EXAM: 08/07/2017 COMPARISON: Previous study dated 11/23/2016. HISTORY: Headache and slurred speech CT DLP: 1120.20 mGycm Automated exposure control for dose reduction was used. FINDINGS: Central structures are midline. There is no evidence of hydrocephalus. No acute focal lesion, mass ef fect or midline shift is seen. I do not see evidence of intracranial blood. Visualized portions of the paranasal sinuses and mastoids are clear. IMPRESSION: NO ACUTE INTRACRANIAL ABNORMALITY.
[2017-08-07 12:58] LABS: Partial Thromboplastin Time 22.4 sec (22.0-30.0); Prothrombin Time 9.8 sec (9.0-12.0)
[2017-08-07 13:06] VITALS: RESP 18
[2017-08-07] MEDS ORDERED: ACETAMINOPHEN TAB 325 MG TAB PO STA (13:08)
[2017-08-07 14:14] VITALS: BP 148/67; PULSE 85; TEMP 97.1
== END 2017-08-07 14:12 | disposition home or self-care (01) ==
LOC: EC 10:43
DX: R20.2 Paresthesia of skin (principal); I25.10 Atherosclerotic heart disease of native coronary artery without angina pectoris; I11.0 Hypertensive heart disease with heart failure; I50.9 Heart failure, unspecified; E11.9 Type 2 diabetes mellitus without complications; I42.9 Cardiomyopathy, unspecified; I25.2 Old myocardial infarction; F17.200 Nicotine dependence, unspecified, uncomplicated; Z86.73 Personal history of transient ischemic attack (TIA), and cerebral infarction without residual deficits; Z95.5 Presence of coronary angioplasty implant and graft; Z95.0 Presence of cardiac pacemaker; Z79.4 Long term (current) use of insulin; Z79.899 Other long term (current) drug therapy; Z88.0 Allergy status to penicillin
CPT/HCPCS: 36415; 70450; 71020; 80053; 80306; 82550; 82553; 84484; 85025; 85610; 85730; 96360; 96361; 99284

== ENCOUNTER 2017-12-15 15:47 | Inpatient (IN) | payer MEDICARE, OTHER ==
[2017-12-15] MEDS ORDERED: SODIUM CHLORIDE 0.9% 1,000 ML IV STA ×2 (17:10)
--- NOTE | 2017-12-15 17:18 | ED ---
General Adult HPI - General Source: patient, RN notes reviewed, old records reviewed Mode of arrival: ambulatory Limitations: no limitations <Quiana Alvarado - Last Filed: 12/15/17 19:36> <Miguel Child - Last Filed: 12/15/17 19:43> - General Chief complaint: Extremity Problem,Nontraumatic Stated complaint: Foot Pain Time Seen by Provider: 12/15/17 16:58 - History of Present Illness Initial comments: This patient is a 42-year-old female with history of diabetes, hyperlipidemia, hypertension, history of heart failure presents today with an open ulceration over her left great toe and left plantar aspect of the metatarsal phalangeal joint. Patient reports that she noticed a blister occur approximately 2 weeks ago. She reports that she's had a history of ischemic ulcers over bilateral lower extremity's. She reports that she had her right great toe removed approximately 2 years ago due to similar symptoms. Patient states that she went to her primary care doctor as well as director of orthopedics, and orthopedic center here for further evaluation and vascular consult. Patient reports that her blood sugars have been running high over the past few weeks. She states that she had her A1c checked on Tuesday and it was 8.8. She states that she has not been to the wound clinic in quite some time but has been there in the past for previous ulcers. Patient was concerned because this ulcer progressed very quickly. She reports that she's noticed some severe pain and swelling over her foot and ankle extending up the leg. She is also concerned that maybe some of the swelling is due to symptoms of heart failure. She reports that today she's had occasional episodes of chest pain. She denies any significant shortness of breath, orthopnea or dyspnea, she denies any nausea or vomiting or abdominal pain. Patient has a pacemaker defibrillator. (Quiana Alvarado) - Related Data Home Medications Medication Instructions Recorded Confirmed Carvedilol [Coreg] 25 mg PO BID 03/04/15 12/15/17 Spironolactone [Aldactone] 25 mg PO DAILY 03/04/15 12/15/17 Digoxin [Lanoxin] 250 mcg PO QAM 08/22/15 12/15/17 acetaZOLAMIDE [Diamox Sequels] 500 mg PO BID 12/03/16 12/15/17 Insulin Aspart [NovoLOG 20 unit SQ AC-TID 12/17/16 12/15/17 (formulary)] Albuterol Inhaler [Ventolin Hfa 2 puff INHALATION RT-Q6H PRN 08/07/17 12/15/17 Inhaler] Gabapentin [Neurontin] 600 mg PO BID 08/19/17 12/15/17 Sacubitril/Valsartan [Entresto 24 1 tab PO BID 12/15/17 12/15/17 mg-26 mg Tablet] Previous Rx's Medication Instructions Recorded DULoxetine HCL [Cymbalta] 30 mg PO DAILY #7 cap 08/22/17 Furosemide [Lasix] 60 mg PO BID@0900,1600 #60 tab 11/05/17 Insulin Glargine [Lantus] 50 unit SQ QAM #0 11/06/17 Allergies Allergy/AdvReac Type Severity Reaction Status Date / Time Penicillins Allergy Rash/Hives Verified 12/15/17 17:02 Review of Systems ROS Other: All systems not noted in ROS Statement are negative. <Quiana Alvarado - Last Filed: 12/15/17 19:36> ROS Other: All systems not noted in ROS Statement are negative. <Miguel Child - Last Filed: 12/15/17 19:43> ROS Statement: Those systems with pertinent positive or pertinent negative responses have been documented in the HPI. Past Medical History Past Medical History: Asthma, Coronary Artery Disease (CAD), Heart Failure, COPD , CVA/TIA, Diabetes Mellitus, Hypertension, Myocardial Infarction ([place]), Pneumonia, Seizure Disorder Additional Past Medical History / Comment(s): MINOR [place] 11/2013. CARDIOMYOPATHY. ASTHMA IN PAST, VARICOSE VEINS. Diabetic NEUROPATHY IN FEET. Chronic diabetic WOUNDS TO BOTH FEET, CVA IN AUGUST 2016 WITH SEIZURES, SOME RESIDUAL SPEECH AND MEMORY LOSS. PICC LINE PLACED IN AUGUST 2016 FOR OSTEOMYLITIS BOTH FEET, DR ALVAREZ MANAGED ANTIBIOTICS Last Myocardial Infarction Date:: 11/2013 History of Any Multi-Drug Resistant Organisms: MRSA, VRE Date of last positivie culture/infection: 2016 MDRO Source:: RIGHT FOOT Past Surgical History: Adenoidectomy, AICD, Section, Heart Catheterization, Orthopedic Surgery, Pacemaker, Tonsillectomy Additional Past Surgical History / Comment(s): AICD - [employer]. has pacemaker defibrillator, right great toe amputation 04/2016 Past Anesthesia/Blood Transfusion Reactions: No Reported Reaction Type of Cardiac Device: Permanent Pacemaker, AICD Device Placement Date:: 2011 Past Psychological History: Bipolar Smoking Status: Current every day smoker Past Alcohol Use History: None Reported Past Drug Use History: Marijuana - Past Family History Mother Family Medical History: Deep Vein Thrombosis (DVT) Additional Family Medical History / Comment(s): kidney failure. Father History Unknown: Yes Family Medical History: Cancer <Quiana Alvarado - Last Filed: 12/15/17 19:36> General Exam Limitations: no limitations General appearance: alert, in no apparent distress Head exam: Present: atraumatic, normocephalic, normal inspection Eye exam: Present: normal appearance, PERRL, EOMI. Absent: scleral icterus, conjunctival injection, periorbital swelling ENT exam: Present: normal exam, mucous membranes moist Neck exam: Present: normal inspection. Absent: tenderness, meningismus, lymphadenopathy Respiratory exam: Present: normal lung sounds bilaterally. Absent: respiratory distress, wheezes, rales, rhonchi, stridor Cardiovascular Exam: Present: regular rate, normal rhythm, normal heart sounds. Absent: systolic murmur, diastolic murmur, rubs, gallop, clicks GI/Abdominal exam: Present: soft, normal bowel sounds. Absent: distended, tenderness, guarding, rebound, rigid Extremities exam: Present: normal inspection, full ROM, normal capillary refill. Absent: tenderness, pedal edema, joint swelling, calf tenderness Left Foot/Toe exam: Absent: normal inspection, full ROM Neurovascular tendon exam: Present: pulse deficit (Unable to palpate dorsalis pedis pulse and posterior tibial pulse by hand. Doppler ultrasound was used and pulses were heard bilaterally in the dorsalis pedis as well as posterior tibial pulse.), sensory deficit (Vision is left foot sensory deficit. Chronic peripheral neuropathy.) Gait: not tested/not observed 1 - missing first great toe due to amputation 2 - 3cm Ulceration with evidence of tendon exposure 3 - ulceration 3cm Back exam: Present: normal inspection Neurological exam: Present: alert, oriented X3, CN II-XII intact Psychiatric exam: Present: normal affect, normal mood Skin exam: Present: warm, dry, intact, normal color. Absent: rash <Quiana Alvarado - Last Filed: 12/15/17 19:36> <Miguel Child - Last Filed: 12/15/17 19:43> - General Exam Comments Initial Comments: This is a 42-year-old female. Patient is obese. Patient does not appear to be in any acute distress. (Quiana Alvarado) Course <Quiana Alvarado - Last Filed: 12/15/17 19:36> <Miguel Child - Last Filed: 12/15/17 19:43> Vital Signs 12/15/17 12/15/17 12/15/17 15:55 18:15 19:33 Temperature 97.2 F L Pulse Rate 99 74 80 Respiratory 18 18 16 Rate Blood Pressure 175/82 154/74 162/70 O2 Sat by Pulse 98 97 95 Oximetry - Reevaluation(s) Reevaluation #1: 12/15/17 19:42 PA supervision: I did proceed a [id number] evaluation the patient and did discuss the findings with her. She does demonstrate ulcerations on the plantar aspect of left foot. She has a tenderness palpation of the foot. She was seen by her orthopedic surgeon today and sent here for further evaluation and admission. I did discuss the case with Dr. Tejeda. Patient be admitted with consultation by Dr. Bowie and by Dr. Alvarez. (Miguel Child) Medical Decision Making - Lab Data Result diagrams: 12/15/17 18:00 12/15/17 18:00 - Radiology Data Radiology results: report reviewed <Quiana Alvarado - Last Filed: 12/15/17 19:36> - Lab Data Result diagrams: 12/15/17 18:00 12/15/17 18:00 <Miguel Child - Last Filed: 12/15/17 19:43> - Medical Decision Making This patient is a 42-year-old female with history of diabetes, hyperlipidemia, hypertension, history of heart failure presents today with an open ulceration over her left great toe and left plantar aspect of the metatarsal phalangeal joint. Patient reports that she noticed a blister occur approximately 2 weeks ago. She reports that she's had a history of ischemic ulcers over bilateral lower extremity's. She reports that she had her right great toe removed approximately 2 years ago due to similar symptoms. Patient states that she went to her primary care doctor as well as director of orthopedics, and orthopedic center here for further evaluation and vascular consult. Patient does have significant ulcers over her left foot. The left great toe ulcer measures proximally 3 cm and evidence of tendon exposure is noted. I did obtain a wound culture. I started the patient on Levaquin, and vancomycin. She is ALLERGIC to penicillins. She also complained of some intermittent chest pain. Patient's troponin is negative at this time, BNP is 1070. Patient's white blood cell count is elevated at 2.7. Hemoglobin 9.1. Hematocrit 29.9. MCV 71.1. Patient will be admitted at this time for diabetic foot ulcer, repeat cardiac enzymes, with consult to Dr. Alvarez, Dr. Hurd. Case is with Dr. Child. He discussed this with Dr. tejeda. (Quiana Alvarado) - Lab Data Lab Results 12/15/17 12/15/17 12/15/17 Range/Units 18:00 18:00 18:00 WBC 10.7 H (3.8-10.6) k/uL RBC 4.21 (3.80-5.40) m/uL Hgb 9.1 L (11.4-16.0) gm/dL Hct 29.9 L (34.0-46.0) % MCV 71.1 L D (80.0-100.0) fL MCH 21.5 L (25.0-35.0) pg MCHC 30.3 L (31.0-37.0) g/dL RDW 16.9 H (11.5-15.5) % Plt Count 282 (150-450) k/uL Neutrophils % 67 % Lymphocytes % 22 % Monocytes % 5 % Eosinophils % 4 % Basophils % 0 % Neutrophils # 7.1 (1.3-7.7) k/uL Lymphocytes # 2.3 (1.0-4.8) k/uL Monocytes # 0.5 (0-1.0) k/uL Eosinophils # 0.4 (0-0.7) k/uL Basophils # 0.0 (0-0.2) k/uL Hypochromasia Marked Anisocytosis Slight Microcytosis Moderate PT (9.0-12.0) sec INR (<1.2) APTT (22.0-30.0) sec Sodium 143 (137-145) mmol/L Potassium 4.0 (3.5-5.1) mmol/L Chloride 103 (98-107) mmol/L Carbon Dioxide 29 (22-30) mmol/L Anion Gap 11 mmol/L BUN 13 (7-17) mg/dL Creatinine 0.70 (0.52-1.04) mg/dL Est GFR (MDRD) Af Amer >60 (>60 ml/min/1.73 sqM) Est GFR (MDRD) Non-Af >60 (>60 ml/min/1.73 sqM) Glucose 67 L (74-99) mg/dL Plasma Lactic Acid Warren (0.7-2.0) mmol/L Calcium 9.2 (8.4-10.2) mg/dL Magnesium 1.7 (1.6-2.3) mg/dL Total Bilirubin 0.2 (0.2-1.3) mg/dL AST 19 (14-36) U/L ALT 28 (9-52) U/L Alkaline Phosphatase 106 (38-126) U/L Total Creatine Kinase 65 (30-135) U/L CK-MB (CK-2) 2.2 (0.0-2.4) ng/mL CK-MB (CK-2) Rel Index 3.4 Troponin I <0.012 (0.000-0.034) ng/mL NT-Pro-B Natriuret Pep pg/mL Total Protein 7.2 (6.3-8.2) g/dL Albumin 3.8 (3.5-5.0) g/dL 12/15/17 12/15/17 12/15/17 Range/Units 18:00 18:00 18:00 WBC (3.8-10.6) k/uL RBC (3.80-5.40) m/uL Hgb (11.4-16.0) gm/dL Hct (34.0-46.0) % MCV (80.0-100.0) fL MCH (25.0-35.0) pg MCHC (31.0-37.0) g/dL RDW (11.5-15.5) % Plt Count (150-450) k/uL Neutrophils % % Lymphocytes % % Monocytes % % Eosinophils % % Basophils % % Neutrophils # (1.3-7.7) k/uL Lymphocytes # (1.0-4.8) k/uL Monocytes # (0-1.0) k/uL Eosinophils # (0-0.7) k/uL Basophils # (0-0.2) k/uL Hypochromasia Anisocytosis Microcytosis PT 10.2 (9.0-12.0) sec INR 1.0 (<1.2) APTT 22.2 (22.0-30.0) sec Sodium (137-145) mmol/L Potassium (3.5-5.1) mmol/L Chloride (98-107) mmol/L Carbon Dioxide (22-30) mmol/L Anion Gap mmol/L BUN (7-17) mg/dL Creatinine (0.52-1.04) mg/dL Est GFR (MDRD) Af Amer (>60 ml/min/1.73 sqM) Est GFR (MDRD) Non-Af (>60 ml/min/1.73 sqM) Glucose (74-99) mg/dL Plasma Lactic Acid Warren 1.3 (0.7-2.0) mmol/L Calcium (8.4-10.2) mg/dL Magnesium (1.6-2.3) mg/dL Total Bilirubin (0.2-1.3) mg/dL AST (14-36) U/L ALT (9-52) U/L Alkaline Phosphatase (38-126) U/L Total Creatine Kinase (30-135) U/L CK-MB (CK-2) (0.0-2.4) ng/mL CK-MB (CK-2) Rel Index Troponin I (0.000-0.034) ng/mL NT-Pro-B Natriuret Pep 1070 pg/mL Total Protein (6.3-8.2) g/dL Albumin (3.5-5.0) g/dL 12/15/17 17:38 EKG shows normal sinus rhythm, low voltage QRS. Anterolateral infarct age undetermined. Prolonged QT. Ventricular 80 bpm. VA interval 200 ms. QRS duration 96 most seconds. QT QTc is 452/555 ms. (Quiana Alvarado) - Radiology Data Foot x-ray shows evidence of soft tissue swelling, calcaneal spurring noted. No evidence of osteomyelitis. Chest x-ray shows no active cardiopulmonary disease. No acute changes. (Quiana Alvarado) Disposition Time of Disposition: 19:34 <Quiana Alvarado - Last Filed: 12/15/17 19:36> <Miguel Child - Last Filed: 12/15/17 19:43> Clinical Impression: Diabetic ulcer of left foot, Intermittent chest pain Disposition: ADMITTED IP TO THIS HOSP Condition: Good Referrals: Dylan Causey MD [Primary Care Provider] - 1-2 days
[2017-12-15 18:42] LABS: Anisocytosis Slight; Basophils % (A) 0 %; Eosinophils # (A) 0.4 k/uL (0-0.7); Eosinophils % (A) 4 %; HCT 29.9 % (34.0-46.0); HGB 9.1 gm/dL (11.4-16.0); Hypochromasia Marked; Lymphocytes # (A) 2.3 k/uL (1.0-4.8); Lymphocytes % (A) 22 %; MCH 21.5 pg (25.0-35.0); MCHC 30.3 g/dL (31.0-37.0); Microcytosis Moderate; Monocytes # (A) 0.5 k/uL (0-1.0); Monocytes % (A) 5 %; Neutrophils # (A) 7.1 k/uL (1.3-7.7); Neutrophils % (A) 67 %; Platelet Count 282 k/uL (150-450); RBC 4.21 m/uL (3.80-5.40); RDW 16.9 % (11.5-15.5); WBC 10.7 k/uL (3.8-10.6)
--- NOTE | 2017-12-15 18:45 | XR ---
EXAMINATION TYPE: XR foot complete LT DATE OF EXAM: 12/15/2017 COMPARISON: 11/03/2017 HISTORY: Nonhealing wounds TECHNIQUE: 3 views. FINDINGS: There is some mild sclerosis on both sides of the first MP joint. There are plantar and Achilles gina caneal spurs. There is soft tissue swelling of the forefoot. I see no fracture nor dislocation. IMPRESSION: Soft tissue swelling. Calcaneal spurring. No specific evidence for osteomyelitis.
--- NOTE | 2017-12-15 18:46 | XR ---
EXAMINATION TYPE: XR chest 2V DATE OF EXAM: 12/15/2017 COMPARISON: 08/19/2017 HISTORY: Chest pain TECHNIQUE: Frontal and lateral views of the chest are obtained. FINDINGS: There is no heart failure nor confluent pneumonic infiltrate. There is a left axillary pac emaker with the lead tips in the right ventricle. There is no pleural effusion. Costophrenic angles a re clear. IMPRESSION: No active cardiopulmonary disease. No change.
[2017-12-15 18:49] LABS: ALT 28 U/L (9-52); AST 19 U/L (14-36); Albumin 3.8 g/dL (3.5-5.0); Alkaline Phosphatase 106 U/L (38-126); Anion Gap 11 mmol/L; Blood Urea Nitrogen 13 mg/dL (7-17); Calcium 9.2 mg/dL (8.4-10.2); Carbon Dioxide 29 mmol/L (22-30); Chloride 103 mmol/L (98-107); Glucose 67 mg/dL (74-99); MCV 71.1 fL (80.0-100.0); Magnesium 1.7 mg/dL (1.6-2.3); Sodium 143 mmol/L (137-145); Total Bilirubin 0.2 mg/dL (0.2-1.3); Total Protein 7.2 g/dL (6.3-8.2)
[2017-12-15 19:05] LABS: Partial Thromboplastin Time 22.2 sec (22.0-30.0); Prothrombin Time 10.2 sec (9.0-12.0)
[2017-12-15 19:06] LABS: Creatine Kinase 65 U/L (30-135)
[2017-12-15 19:15] LABS: Creatine Kinase MB 2.2 ng/mL (0.0-2.4)
[2017-12-15 19:19] LABS: Troponin I <0.012 ng/mL (0.000-0.034)
[2017-12-15] MEDS ORDERED: VANCOMYCIN IV PER PHARMACY 1 EACH MISC MISCELLANE PRN (19:34)
[2017-12-15] MEDS ORDERED: LEVOFLOXACIN 750MG-D5W PMX 750 MG in DEXTROSE/WATER 1 150ML.BAG IVPB STA (19:35)
[2017-12-15] MEDS ORDERED: NALOXONE 0.4 MG/ML 1 ML VIAL IV PRN (19:40)
[2017-12-15] MEDS ORDERED: IBUPROFEN 400 MG TAB PO PRN (19:40)
[2017-12-15] MEDS ORDERED: HYDROmorphone 2 MG/ML 1 ML SYRINGE IVP PRN (19:40)
[2017-12-15] MEDS ORDERED: ACETAMINOPHEN TAB 325 MG TAB PO PRN (19:40)
[2017-12-15] MEDS ORDERED: ALBUTEROL NEBULIZED 2.5 MG/3 ML INHALATION PRN (19:43)
[2017-12-15] MEDS: HYDROmorphone 0.5 MG/0.5 ML SYRINGE IVP PRN (19:51)
[2017-12-15] MEDS ORDERED: VANCOMYCIN 2,250 MG in SODIUM CHLORIDE 0.9% 500 ML IVPB STA (19:52)
[2017-12-15] MEDS: SODIUM CHLORIDE 0.9% 1,000 ML IV SCH (19:53)
[2017-12-15] MEDS: ONDANSETRON 4 MG/2 ML VIAL IVP PRN (21:02)
[2017-12-15 22:32] LABS: Glucose,Whole Blood 87 mg/dL (75-99)
[2017-12-15] MEDS: INSULIN ASPART 100 UNIT/ML 1 ML 10 ML VIAL SQ SCH (22:33)
[2017-12-15] MEDS: GABAPENTIN 300 MG CAP PO SCH (22:42)
[2017-12-15] MEDS: acetaZOLAMIDE 250 MG TAB PO SCH (22:42)
[2017-12-15] MEDS: SACUBITRIL/VALSARTAN 24 MG-26 MG TABLET PO SCH (22:42)
[2017-12-16] MEDS: HYDROmorphone 0.5 MG/0.5 ML SYRINGE IVP PRN ×5 (00:16→23:16)
[2017-12-16] MEDS: SODIUM CHLORIDE 0.9% 1,000 ML IV SCH ×3 (01:27→20:34)
[2017-12-16 01:40] LABS: Creatine Kinase 54 U/L (30-135)
[2017-12-16 01:53] LABS: Creatine Kinase MB 1.6 ng/mL (0.0-2.4); Troponin I <0.012 ng/mL (0.000-0.034)
[2017-12-16] MEDS: ONDANSETRON 4 MG/2 ML VIAL IVP PRN ×2 (05:44→15:23)
[2017-12-16 05:53] LABS: Glucose,Whole Blood 111 mg/dL (75-99)
[2017-12-16] MEDS: INSULIN ASPART 100 UNIT/ML 1 ML 10 ML VIAL SQ SCH ×4 (05:54→21:21)
[2017-12-16] MEDS: CARVEDILOL 12.5 MG TAB PO SCH ×2 (06:30→17:20)
[2017-12-16] MEDS: VANCOMYCIN 2,000 MG in SODIUM CHLORIDE 0.9% 500 ML IVPB SCH ×2 (06:30→19:39)
[2017-12-16 06:52] LABS: Creatine Kinase 49 U/L (30-135)
[2017-12-16 07:04] LABS: Creatine Kinase MB 1.4 ng/mL (0.0-2.4); Troponin I <0.012 ng/mL (0.000-0.034)
[2017-12-16] MEDS: acetaZOLAMIDE 250 MG TAB PO SCH ×2 (08:33→20:33)
[2017-12-16] MEDS: GABAPENTIN 300 MG CAP PO SCH ×2 (08:34→20:33)
[2017-12-16] MEDS: PANTOPRAZOLE 40 MG/10 ML VIAL IV SCH (08:34)
[2017-12-16] MEDS: DIGOXIN 250 MCG TAB PO SCH (08:34)
[2017-12-16] MEDS: FUROSEMIDE 20 MG TAB PO SCH ×2 (08:34→17:34)
[2017-12-16] MEDS: SPIRONOLACTONE 25 MG TAB PO SCH (08:35)
[2017-12-16] MEDS: SACUBITRIL/VALSARTAN 24 MG-26 MG TABLET PO SCH ×2 (08:35→20:33)
--- NOTE | 2017-12-16 10:31 | P.CONS ---
History of Present Illness - Reason for Consult Consult date: 12/16/17 Diabetic foot ulcer - History of Present Illness This is a 42-year-old female patient who is well-known to ID service as she has had previous diabetic ulcer [facility] status post amputation of the right great toe. Patient [facility], under the care of Dr. Madrigal with a Marshall grade 2 ulcer the bilateral feet. It is unclear if patient was discharged from service there. Patient states that about 1 month ago she developed wound to the left plantar surface and the ulcer opened up about 2-3 weeks ago. She has not sought treatment. She states her blood sugars have been running very high and her last hemoglobin A1c was 8.8. She does complain of chills. She complains of significant pain and edema to the left foot but both feet have been edematous. She also gives history that she was hospitalized for heart failure and since her discharge on November 06, she has gained 20 pounds. Patient came into [facility] emergency center for evaluation. She has been afebrile with a white count of 10.7. Troponins were negative on 3 draws. Chest x-ray showed no acute findings. Left foot x-ray shows soft tissue swelling, calcaneal spurring, no specific changes for osteomyelitis. Left toe wound culture is showing gram-positive cocci and blood cultures status received. Patient does complain of left ankle pain for which she states in August she was using a contact cast on the right leg and was in the crisis unit due to some mental health issue and was walking a lot for about 3 days and ever since then she has had left ankle pain and swelling. Review of Systems All systems: negative Constitutional: Reports chills, Reports poor appetite, Denies fatigue, Denies fever, Denies weakness Eyes: denies blurred vision, denies pain Ears, nose, mouth and throat: Denies headache, Denies sore throat Cardiovascular: Reports leg edema, Denies chest pain, Denies shortness of breath Respiratory: Denies cough, Denies cough with sputum, Denies dyspnea, Denies excessive sputum, Denies hemoptysis Gastrointestinal: Denies abdominal pain, Denies diarrhea, Denies nausea, Denies vomiting Genitourinary: Denies dysuria, Denies hematuria Musculoskeletal: Denies myalgias Integumentary: Reports wounds, Denies pruritus, Denies rash Neurological: Denies numbness, Denies weakness Psychiatric: Denies anxiety, Denies depression Endocrine: Denies fatigue, Denies weight change Past Medical History Past Medical History: Asthma, Coronary Artery Disease (CAD), Heart Failure, COPD , CVA/TIA, Diabetes Mellitus, Hypertension, Myocardial Infarction ([place]), Pneumonia, Seizure Disorder Additional Past Medical History / Comment(s): MINOR [place] 11/2013. CARDIOMYOPATHY. ASTHMA IN PAST, VARICOSE VEINS. Diabetic NEUROPATHY IN FEET. 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 PICC LINE PLACED IN AUGUST 2016 FOR OSTEOMYLITIS BOTH FEET, DR ALVAREZ MANAGED ANTIBIOTICS Last Myocardial Infarction Date:: 11/2013 History of Any Multi-Drug Resistant Organisms: MRSA, VRE Year Discovered:: 2017 MDRO Source:: RIGHT FOOT Past Surgical History: Adenoidectomy, AICD, Section, Heart Catheterization, Orthopedic Surgery, Pacemaker, Tonsillectomy Additional Past Surgical History / Comment(s): AICD - [employer]. has pacemaker defibrillator, right great toe amputation 04/2016 Past Anesthesia/Blood Transfusion Reactions: No Reported Reaction Type of Cardiac Device: Permanent Pacemaker, AICD Device Placement Date:: 2011 Past Psychological History: Bipolar Additional Psychological History / Comment(s): Single. Lives in the family home with her 2 children, as well as her son-in-law and brother. There are 3 pet cats and a dog in the home. 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 No alcohol or IV drug use. Quit smoking in Oct 2017. Has medical marijuana card and smokes marijuana on a daily basis at bedtime for pain control.. Smoking Status: Former smoker Past Alcohol Use History: None Reported Additional Past Alcohol Use History / Comment(s): STARTED SMOKING AT AGE 12 SMOKES 4-5 CIG PER DAY Past Drug Use History: Marijuana Additional Drug Use History / Comment(s): medical marijuana card - Past Family History Mother Family Medical History: Deep Vein Thrombosis (DVT) Additional Family Medical History / Comment(s): kidney failure. Father History Unknown: Yes Family Medical History: Cancer Medications and Allergies Home Medications Medication Instructions Recorded Confirmed Type Carvedilol [Coreg] 25 mg PO BID 03/04/15 12/15/17 History Spironolactone [Aldactone] 25 mg PO DAILY 03/04/15 12/15/17 History Digoxin [Lanoxin] 250 mcg PO QAM 08/22/15 12/15/17 History acetaZOLAMIDE [Diamox Sequels] 500 mg PO BID 12/03/16 12/15/17 History Insulin Aspart [NovoLOG 20 unit SQ AC-TID 12/17/16 12/15/17 History (formulary)] Albuterol Inhaler [Ventolin Hfa 2 puff INHALATION RT-Q6H PRN 08/07/17 12/15/17 History Inhaler] Gabapentin [Neurontin] 600 mg PO BID 08/19/17 12/15/17 History DULoxetine HCL [Cymbalta] 30 mg PO DAILY #7 cap 08/22/17 12/15/17 Rx Furosemide [Lasix] 60 mg PO BID@0900,1600 #60 tab 11/05/17 12/15/17 Rx Insulin Glargine [Lantus] 50 unit SQ QAM #0 11/06/17 12/15/17 Rx Sacubitril/Valsartan [Entresto 24 1 tab PO BID 12/15/17 12/15/17 History mg-26 mg Tablet] Allergies Allergy/AdvReac Type Severity Reaction Status Date / Time Penicillins Allergy Rash/Hives Verified 12/15/17 17:02 Physical Exam Vitals: Vital Signs Temp Pulse Pulse Resp BP BP Pulse Ox 12/16/17 08:00 97 F L 82 18 135/86 92 L 12/16/17 06:27 144/83 12/16/17 03:20 98.0 F 91 18 143/79 90 L 12/16/17 01:00 83 18 12/16/17 00:56 97.6 F 83 18 139/80 93 L 12/16/17 00:41 98.6 F 12/16/17 00:00 90 16 162/68 96 12/15/17 23:10 80 18 156/77 95 12/15/17 22:07 75 18 142/65 98 12/15/17 21:06 98.0 F 80 14 161/84 94 L 12/15/17 20:40 81 14 155/77 93 L 12/15/17 19:33 80 16 162/70 95 12/15/17 18:15 74 18 154/74 97 12/15/17 15:55 97.2 F L 99 18 175/82 98 Intake and Output 12/15/17 12/16/17 12/16/17 22:59 06:59 14:59 Intake Total 1350 360 Balance 1350 360 Intake: Intake, IV Titration 1050 Amount Levofloxacin 750Mg-D5w 150 Pmx 750 mg In Dextrose/ Water 1 150ml.bag @ 100 mls/hr IVPB ONCE STA Rx#: [id number] Sodium Chloride 0.9% 1, 400 000 ml @ 120 mls/hr IV . Q8H20M [facility] Rx#:[id number] Vancomycin 2,250 mg In 500 Sodium Chloride 0.9% 500 ml @ 167 mls/hr IVPB ONCE STA Rx#:[id number] Oral 300 360 Other: Voiding Method Toilet Toilet # Voids 1 Weight 131.542 kg 134.4 kg Gen: This is a morbidly obese 42-year-old female. She is sitting up in bed and appears to be in no acute distress. HEENT: Head is atraumatic, normocephalic. Pupils equal, round. Sclerae is anicteric. Mucous members of the mouth are moist. Dentition is in poor order. NECK: Short and thick. Supple. No JVD. No lymphadenopathy. No thyromegaly. LUNGS: Clear to auscultation. No wheezes or rhonchi. No intercostal retractions. HEART: Regular rate and rhythm. No murmur. ABDOMEN: Morbidly obese Soft. Bowel sounds are present. No masses. No tenderness. EXTREMITIES: Bilateral 1+ pedal edema. Patient has a diabetic ulceration to the plantar surface of the left great toe and at the distal third metatarsal. Scant amount of bloody drainage. NEUROLOGICAL: Patient is awake, alert and oriented x3. Cranial nerves 2 through 12 are grossly intact. Results Results: Laboratory Results WBC 10.7 k/uL (3.8-10.6) H 12/15/17 18:00 RBC 4.21 m/uL (3.80-5.40) 12/15/17 18:00 Hgb 9.1 gm/dL (11.4-16.0) L 12/15/17 18:00 Hct 29.9 % (34.0-46.0) L 12/15/17 18:00 MCV 71.1 fL (80.0-100.0) L D 12/15/17 18:00 MCH 21.5 pg (25.0-35.0) L 12/15/17 18: MCHC 30.3 g/dL (31.0-37.0) L 12/15/17 18: RDW 16.9 % (11.5-15.5) H 12/15/17 18: Plt Count 282 k/uL (150-450) 12/15/17 18:00 Neutrophils % 67 % 12/15/17 18:00 Lymphocytes % 22 % 12/15/17 18:00 Monocytes % 5 % 12/15/17 18:00 Eosinophils % 4 % 12/15/17 18: Basophils % 0 % 12/15/17 18:00 Neutrophils # 7.1 k/uL (1.3-7.7) 12/15/17 18:00 Lymphocytes # 2.3 k/uL (1.0-4.8) 12/15/17 18:00 Monocytes # 0.5 k/uL (0-1.0) 12/15/17 18:00 Eosinophils # 0.4 k/uL (0-0.7) 12/15/17 18:00 Basophils # 0.0 k/uL (0-0.2) 12/15/17 18:00 Hypochromasia Marked 12/15/17 18:00 Anisocytosis Slight 12/15/17 18:00 Microcytosis Moderate 12/15/17 18:00 PT 10.2 sec (9.0-12.0) 12/15/17 18:00 INR 1.0 (<1.2) 12/15/17 18:00 APTT 22.2 sec (22.0-30.0) 12/15/17 18:00 Sodium 143 mmol/L (137-145) 12/15/17 18:00 Potassium 4.0 mmol/L (3.5-5.1) 12/15/17 18:00 Chloride 103 mmol/L (98-107) 12/15/17 18:00 Carbon Dioxide 29 mmol/L (22-30) 12/15/17 18:00 Anion Gap 11 mmol/L 12/15/17 18:00 BUN 13 mg/dL (7-17) 12/15/17 18:00 Creatinine 0.70 mg/dL (0.52-1.04) 12/15/17 18:00 Est GFR (MDRD) Af Amer >60 (>60 ml/min/1.73 sqM) 12/15/17 18:00 Est GFR (MDRD) Non-Af >60 (>60 ml/min/1.73 sqM) 12/15/17 18:00 Glucose 67 mg/dL (74-99) L 12/15/17 18:00 POC Glucose (mg/dL) 111 mg/dL (75-99) H 12/16/17 05:47 POC Glu Bus Boy ID Natalia Rendon 12/16/17 05:47 Plasma Lactic Acid Warren 1.3 mmol/L (0.7-2.0) 12/15/17 18:00 Calcium 9.2 mg/dL (8.4-10.2) 12/15/17 18:00 Magnesium 1.7 mg/dL (1.6-2.3) 12/15/17 18:00 Total Bilirubin 0.2 mg/dL (0.2-1.3) 12/15/17 18:00 AST 19 U/L (14-36) 12/15/17 18:00 ALT 28 U/L (9-52) 12/15/17 18:00 Alkaline Phosphatase 106 U/L (38-126) 12/15/17 18:00 Total Creatine Kinase 49 U/L (30-135) 12/16/17 06:08 CK-MB (CK-2) 1.4 ng/mL (0.0-2.4) 12/16/17 06:08 CK-MB (CK-2) Rel Index 2.9 12/16/17 06:08 Troponin I <0.012 ng/mL (0.000-0.034) 12/16/17 06:08 NT-Pro-B Natriuret Pep 1070 pg/mL 12/15/17 18:00 Total Protein 7.2 g/dL (6.3-8.2) 12/15/17 18:00 Albumin 3.8 g/dL (3.5-5.0) 12/15/17 18:00 CBC & Chem 7: 12/15/17 18:00 12/15/17 18:00 Labs: Abnormal Lab Results - Last 24 Hours (Table) 12/15/17 12/15/17 12/16/17 Range/Units 18:00 18:00 05:47 WBC 10.7 H (3.8-10.6) k/uL Hgb 9.1 L (11.4-16.0) gm/dL Hct 29.9 L (34.0-46.0) % MCV 71.1 L D (80.0-100.0) fL MCH 21.5 L (25.0-35.0) pg MCHC 30.3 L (31.0-37.0) g/dL RDW 16.9 H (11.5-15.5) % Glucose 67 L (74-99) mg/dL POC Glucose (mg/dL) 111 H (75-99) mg/dL Microbiology - Last 24 Hours (Table) 12/15/17 18:00 Gram Stain - Preliminary Toe - Left First Wound Culture - Preliminary Assessment and Plan Plan: This is a 42-year-old female patient well-known to ID service as she has been treated in the past for diabetic ulcers. Patient now presents with twodiabetic ulcers on the left foot. Bone scan ordered to rule out osteomyelitis. Dr. Hurd is also on consult. Local wound care will be addressed. Patient will need tight glucose control. Blood and wound culture in progress. Multivitamin ordered. Continue supportive care. Further recommendations as patient progresses. The above dictated assessment and findings were discussed with Dr. Alvarez. The impression and plan of care have been directed as dictated. Krystin Paredes nurse practitioner acting as scribe for Dr. Alvarez.
[2017-12-16 12:20] LABS: Glucose,Whole Blood 146 mg/dL (75-99)
--- NOTE | 2017-12-16 12:45 | P.GSCN ---
History of Present Illness History of present illness: 42-year-old white female, patient is known to me from the past she has 3 weeks of Marshall grade 2 ulcer left foot big toe plantar aspect patient in by Dr. Delong in his office patient has been admitted admitted and I was consulted I have discussed with proximal palm patient has a 3 weeks chronic wound left foot lateral aspect which is not heal by local wound care patient has excellent circulation in the foot posterior tibial dorsal pedis is palpable there is a large ulcer on the plantar aspect of the left foot big toe for the past 3 weeks I have discuss with the patient and we'll proceed with left big toe amputation in an IV antibiotic under care of Dr. Oscar Alvarez Medical history history of diabetes, history of coronary artery disease, Surgical history patient had a right big toe pressure done by me in the past she 's been coming to the wound clinic for local wound care Neck examination neck is supple no bruit appreciated Chest is clear first and second sound normal Abdomen soft nontender Vascular examination femorals are palpable dorsal pedis post tibial is palpable patient has a infected wound on left foot big toe plantar aspect and also there is a callus formation noted on the plantar aspect of the foot Plan is left big toe amputation discussed with the patient and Dr. Delong and we agreed risk and complication discussed thank you very much Past Medical History Past Medical History: Asthma, Coronary Artery Disease (CAD), Heart Failure, COPD , CVA/TIA, Diabetes Mellitus, Hypertension, Myocardial Infarction ([place]), Pneumonia, Seizure Disorder Additional Past Medical History / Comment(s): MINOR [place] 11/2013. CARDIOMYOPATHY. ASTHMA IN PAST, VARICOSE VEINS. Diabetic NEUROPATHY IN FEET. 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 PICC LINE PLACED IN AUGUST 2016 FOR OSTEOMYLITIS BOTH FEET, DR ALVAREZ MANAGED ANTIBIOTICS Last Myocardial Infarction Date:: 11/2013 History of Any Multi-Drug Resistant Organisms: MRSA, VRE Year Discovered:: 2016 MDRO Source:: RIGHT FOOT Past Surgical History: Adenoidectomy, AICD, Section, Heart Catheterization, Orthopedic Surgery, Pacemaker, Tonsillectomy Additional Past Surgical History / Comment(s): AICD - [employer]. has pacemaker defibrillator, right great toe amputation 04/2016 Past Anesthesia/Blood Transfusion Reactions: No Reported Reaction Type of Cardiac Device: Permanent Pacemaker, AICD Device Placement Date:: 2011 Past Psychological History: Bipolar Additional Psychological History / Comment(s): Single. Lives in the family home with her 2 children, as well as her son-in-law and brother. There are 3 pet cats and a dog in the home. 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 No alcohol or IV drug use. Quit smoking in Oct 2017. Has medical marijuana card and smokes marijuana on a daily basis at bedtime for pain control.. Smoking Status: Former smoker Past Alcohol Use History: None Reported Additional Past Alcohol Use History / Comment(s): STARTED SMOKING AT AGE 12 SMOKES 4-5 CIG PER DAY Past Drug Use History: Marijuana Additional Drug Use History / Comment(s): medical marijuana card - Past Family History Mother Family Medical History: Deep Vein Thrombosis (DVT) Additional Family Medical History / Comment(s): kidney failure. Father History Unknown: Yes Family Medical History: Cancer Medications and Allergies Home Medications Medication Instructions Recorded Confirmed Type Carvedilol [Coreg] 25 mg PO BID 03/04/15 12/15/17 History Spironolactone [Aldactone] 25 mg PO DAILY 03/04/15 12/15/17 History Digoxin [Lanoxin] 250 mcg PO QAM 08/22/15 12/15/17 History acetaZOLAMIDE [Diamox Sequels] 500 mg PO BID 12/03/16 12/15/17 History Insulin Aspart [NovoLOG 20 unit SQ AC-TID 12/17/16 12/15/17 History (formulary)] Albuterol Inhaler [Ventolin Hfa 2 puff INHALATION RT-Q6H PRN 08/07/17 12/15/17 History Inhaler] Gabapentin [Neurontin] 600 mg PO BID 08/19/17 12/15/17 History DULoxetine HCL [Cymbalta] 30 mg PO DAILY #7 cap 08/22/17 12/15/17 Rx Furosemide [Lasix] 60 mg PO BID@0900,1600 #60 tab 11/05/17 12/15/17 Rx Insulin Glargine [Lantus] 50 unit SQ QAM #0 11/06/17 12/15/17 Rx Sacubitril/Valsartan [Entresto 24 1 tab PO BID 12/15/17 12/15/17 History mg-26 mg Tablet] Allergies Allergy/AdvReac Type Severity Reaction Status Date / Time Penicillins Allergy Rash/Hives Verified 12/15/17 17:02 Surgical - Exam Vital Signs Temp Pulse Resp BP Pulse Ox 97.2 F L 99 18 175/82 98 12/15/17 15:55 12/15/17 15:55 12/15/17 15:55 12/15/17 15:55 12/15/17 15:55 Results - Labs 12/15/17 18:00 12/15/17 18:00 Abnormal Lab Results - Last 24 Hours (Table) 12/15/17 12/15/17 12/16/17 Range/Units 18:00 18:00 05:47 WBC 10.7 H (3.8-10.6) k/uL Hgb 9.1 L (11.4-16.0) gm/dL Hct 29.9 L (34.0-46.0) % MCV 71.1 L D (80.0-100.0) fL MCH 21.5 L (25.0-35.0) pg MCHC 30.3 L (31.0-37.0) g/dL RDW 16.9 H (11.5-15.5) % Glucose 67 L (74-99) mg/dL POC Glucose (mg/dL) 111 H (75-99) mg/dL 12/16/17 Range/Units 11:50 WBC (3.8-10.6) k/uL Hgb (11.4-16.0) gm/dL Hct (34.0-46.0) % MCV (80.0-100.0) fL MCH (25.0-35.0) pg MCHC (31.0-37.0) g/dL RDW (11.5-15.5) % Glucose (74-99) mg/dL POC Glucose (mg/dL) 146 H (75-99) mg/dL Microbiology - Last 24 Hours (Table) 12/15/17 18:00 Gram Stain - Preliminary Toe - Left First Wound Culture - Preliminary Diabetes panel 12/15/17 Range/Units 18:00 Sodium 143 (137-145) mmol/L Potassium 4.0 (3.5-5.1) mmol/L Chloride 103 (98-107) mmol/L Carbon Dioxide 29 (22-30) mmol/L BUN 13 (7-17) mg/dL Creatinine 0.70 (0.52-1.04) mg/dL Glucose 67 L (74-99) mg/dL Calcium 9.2 (8.4-10.2) mg/dL AST 19 (14-36) U/L ALT 28 (9-52) U/L Alkaline Phosphatase 106 (38-126) U/L Total Protein 7.2 (6.3-8.2) g/dL Albumin 3.8 (3.5-5.0) g/dL Calcium panel 12/15/17 Range/Units 18:00 Calcium 9.2 (8.4-10.2) mg/dL Albumin 3.8 (3.5-5.0) g/dL Pituitary panel 12/15/17 Range/Units 18:00 Sodium 143 (137-145) mmol/L Potassium 4.0 (3.5-5.1) mmol/L Chloride 103 (98-107) mmol/L Carbon Dioxide 29 (22-30) mmol/L BUN 13 (7-17) mg/dL Creatinine 0.70 (0.52-1.04) mg/dL Glucose 67 L (74-99) mg/dL Calcium 9.2 (8.4-10.2) mg/dL Adrenal panel 12/15/17 Range/Units 18:00 Sodium 143 (137-145) mmol/L Potassium 4.0 (3.5-5.1) mmol/L Chloride 103 (98-107) mmol/L Carbon Dioxide 29 (22-30) mmol/L BUN 13 (7-17) mg/dL Creatinine 0.70 (0.52-1.04) mg/dL Glucose 67 L (74-99) mg/dL Calcium 9.2 (8.4-10.2) mg/dL Total Bilirubin 0.2 (0.2-1.3) mg/dL AST 19 (14-36) U/L ALT 28 (9-52) U/L Alkaline Phosphatase 106 (38-126) U/L Total Protein 7.2 (6.3-8.2) g/dL Albumin 3.8 (3.5-5.0) g/dL
[2017-12-16] MEDS: MULTIVITAMINS, THERA 1 EACH TAB PO SCH (15:35)
--- NOTE | 2017-12-16 16:17 | NM ---
EXAMINATION TYPE: NM bone 3 phase DATE OF EXAM: 12/16/2017 COMPARISON: Radiograph 12/15/2017 and on bone scan 10/28/2016 HISTORY: 42-year-old female with open sore along the bottom of the left foot as well as the great toe . Patient with diabetes. Technique: Triple phase bone scintigraphy was performed following the injection of28.2 mCi Tc 99m MDP . Immediate images and 5 hours post injection images acquired. Imaging performed of the bilateral di stal lower extremities. FINDINGS: Flow images show no significant asymmetry. Pool images show prior right great toe amputation and slight increased uptake within the right mid fo ot and the left great toe area. Delayed images show prior right great toe amputation along with focal activity within the right midfo ot, right second MTP, and first MTP joint regions suggesting a degenerative etiology. IMPRESSION: 1. No three-phase bone scan abnormality seen to indicate osteomyelitis. There is some delayed uptake at the right second MTP joint and left first MTP joint suggesting a degenerative etiology. Prior righ t-sided great toe amputation. 2. Additional uptake on pool and delayed imaging in the right midfoot is also suggestive of a degener ative etiology.
[2017-12-16] MEDS ORDERED: ONDANSETRON 4 MG/2 ML VIAL IVP PRN (16:46)
[2017-12-16 17:08] LABS: Glucose,Whole Blood 156 mg/dL (75-99)
[2017-12-16] MEDS: METOCLOPRAMIDE 5 MG/ML 2 ML VIAL IVP SCH ×2 (17:12→23:16)
[2017-12-16] MEDS: FUROSEMIDE 10 MG/ML 10 ML VIAL IV SCH ×2 (17:29→23:16)
[2017-12-16 17:33] LABS: Hemoglobin A1C 8.8 % (4.0-6.0)
--- NOTE | 2017-12-16 18:00 | HP ---
HISTORY AND PHYSICAL DATE OF ADMISSION: 12/15/2017 PRESENTING COMPLAINT: Left foot ulcer. HISTORY OF PRESENTING COMPLAINT: This is a 42-year-old patient of Dr. Causey, well known to me for quite some time. Chronic stable medical conditions include COPD, diabetes, hypertension, hyperlipidemia. The patient also has known cardiomyopathy, EF 30% to 35%. The patient also has a left foot ulcer on the left big toe on the plantar aspect, being followed by Dr. Madrigal. Patient presents with the ulcer getting worse on the plantar aspect of the left foot and also another ulcer on the plantar aspect of the left foot. Also there is increased pain and swelling of the foot. The patient has also noticed that he has been getting more and more short of breath; gets some chills. No obvious fevers. Putting on weight, short of breath, becoming more orthoptic at night, using 3 to 4 pillows; hence decided to come in. REVIEW OF SYSTEMS: CONSTITUTIONAL: Tired. Chills. HEENT: None. RESPIRATORY: As above with orthopnea. CARDIOVASCULAR: As above with edema, orthopnea. GASTROINTESTINAL: None. GENITOURINARY: None. MUSCULOSKELETAL: As above. DERMATOLOGICAL: As above. HEMATOLOGICAL: None. LYMPHATICS: None. PSYCHIATRY: None. NEUROLOGICAL: Numbness and tingling in both feet. PAST MEDICAL HISTORY: 1. COPD. 2. Coronary artery disease. 3. Congestive heart failure, EF 35% to 40%. 4. Stroke. 5. Diabetes mellitus, type 2. 6. Hypertension. 7. Seizure disorder. 8. Varicose veins. 9. Peripheral neuropathy. 10.Diabetic wounds previously in both legs. 11.Seizures. 12.Some memory and residual speech loss. PAST SURGICAL HISTORY: 1. Adenoidectomy. 2. AICD with [employer]. 3. . 4. Cardiac catheterization. 5. Right big toe amputation. SOCIAL HISTORY: The patient has 2 children at home, son-in-law, 2 pet cats at home. The patient has been smoking on and off for quite some time. Does have a medical marijuana card. FAMILY HISTORY: DVT, kidney failure. HOME MEDICATIONS: 1. Diamox 500 mg p.o. b.i.d. 2. Aldactone 25 mg p.o. daily. 3. Entresto 24/ one tablet p.o. b.i.d. 4. Lantus 50 units subcutaneously in the morning. 5. NovoLog 20 units subcutaneously t.i.d. 6. Neurontin 600 mg p.o. b.i.d. 7. Lasix 60 mg b.i.d. 8. Digoxin 250 mcg p.o. daily. 9. Cymbalta 30 mg p.o. daily. 10.Coreg 25 p.o. b.i.d. 11.Ventolin HFA two puffs q.6 p.r.n. ALLERGIES: PENICILLIN. PHYSICAL EXAMINATION: VITAL SIGNS ON PRESENTATION: Temperature 97.2, pulse 99, respiration 18, blood pressure 175/82, pulse ox 98% on room air. Repeat blood pressure 150/74. GENERAL APPEARANCE: Well built; BMI 46.4. Lying in bed, somewhat uncomfortable. EYES: Pupils equal. Conjunctivae normal. HEENT: Oral cavity normal. NECK: JVD unable to assess. Mass not palpable. RESPIRATORY: Effort increased. LUNGS: Some basal crackles. CARDIOVASCULAR: First and second sounds normal. Edema present. ABDOMEN: Distended, soft. Liver and spleen not palpable. LYMPHATIC: No lymph node palpable in neck or axillae. PSYCHIATRY: Alert and oriented x3. Mood and affect slightly anxious-appearing. NEUROLOGICAL: Pupils equal. Cranial nerves grossly intact. Some decreased sensation distally. EXTREMITIES: Patient has a missing right big toe. On the left big toe on the plantar aspect there is a deep ulcer. There is an ulcer just proximal to the metacarpophalangeal joint on the plantar aspect of the left foot. Edema is present. INVESTIGATIONS: White count 10.7, hemoglobin 9.1, potassium 4.0, BUN 13, creatinine 0.70. Troponin negative. ProBNP 1070. EKG: Normal sinus rhythm. Chest x-ray shows cardiomegaly, some venous prominence. Nuclear 3-phase bone scan suggesting osteomyelitis. ASSESSMENT: 1. Acute right big toe osteomyelitis, present on admission. 2. Left foot plantar surface wound, distal. 3. Peripheral neuropathy from diabetes. 4. Chronic obstructive pulmonary disease in an ex-smoker. 5. Diabetes mellitus, type 2, chronically on insulin, causing peripheral neuropathy. 6. Essential hypertension. 7. Hyperlipidemia. 8. Acute on chronic congestive heart failure from systolic dysfunction, ejection fraction 30% to 35%, probably from hypertensive heart disease. PLAN: The patient is on IV vancomycin. Home medications are resumed. Will put the patient on IV Lasix. Consultations to Infectious Disease and Dr. Hurd from Vascular and Cardiology were done. Care was discussed with the patient. Patient did inform me that Dr. Hurd had spoken to the patient earlier concerning amputation of the big toe. The patient had a lower sugar; will cut back on the dose of Levemir. Overall prognosis is guarded. MMODL / IJN: [id number] /
--- NOTE | 2017-12-16 18:03 | P.CON ---
Consult Note - . Consult date: 12/16/17 Assessment/Plan:: This is a 42-year-old female patient who is well-known to ID service as she has had previous diabetic ulcer [facility] status post amputation of the right great toe. Patient was [facility], under the care of Dr. Madrigal with a Marshall grade 2 ulcer the bilateral feet. It is unclear if patient was discharged from service there. Patient states that about 1 month ago she developed wound to the left plantar surface and the ulcer opened up about 2-3 weeks ago. She has not sought treatment. She states her blood sugars have been running very high and her last hemoglobin A1c was 8.8. She does complain of chills. She complains of significant pain and edema to the left foot but both feet have been edematous. She also gives history that she was hospitalized for heart failure and since her discharge on November 06, she has gained 20 pounds. Patient came into [facility] emergency center for evaluation. She has been afebrile with a white count of 10.7. Troponins were negative on 3 draws. Chest x-ray showed no acute findings. Left foot x-ray shows soft tissue swelling, calcaneal spurring, no specific changes for osteomyelitis. Left toe wound culture is showing gram-positive cocci and blood cultures status received. Patient does complain of left ankle pain for which she states in August she was using a contact cast on the right leg and was in the crisis unit due to some mental health issue and was walking a lot for about 3 days and ever since then she has had left ankle pain and swelling. Please see the consult note as dictated by ACTIV[employer] SLUDGE OPERATOR Mrs. Krystin Paredes. Patient is evidence of the gangrenous changes of the toe. She will have amputation in the morning. Bone scan being performed to determine the extent of infection in the need for ongoing antibiotic therapy after the amputation. For antimicrobial therapy based on her multiple prior cultures positive staph aureus with MSSA, and enterococcus would continue the vancomycin given her penicillin ALLERGY however she decided E. coli other gram-negative organisms and for that ertapenem is added while cultures are pending. The extensive infection will determine the course of antibiotic therapy after discharge. I agree with evaluation, assessment and plan as dictated by nurse practitioner Mrs. Krystin Paredes.
[2017-12-16 21:13] LABS: Glucose,Whole Blood 167 mg/dL (75-99)
[2017-12-17] MEDS: METOCLOPRAMIDE 5 MG/ML 2 ML VIAL IVP SCH ×4 (06:16→23:41)
[2017-12-17] MEDS: VANCOMYCIN 2,000 MG in SODIUM CHLORIDE 0.9% 500 ML IVPB SCH ×2 (06:16→18:19)
[2017-12-17] MEDS: HYDROmorphone 0.5 MG/0.5 ML SYRINGE IVP PRN ×4 (06:16→23:42)
[2017-12-17] MEDS: FUROSEMIDE 10 MG/ML 10 ML VIAL IV SCH ×4 (06:16→23:41)
[2017-12-17] MEDS: SODIUM CHLORIDE 0.9% 1,000 ML IV SCH ×3 (06:23→20:50)
[2017-12-17 06:34] LABS: Glucose,Whole Blood 142 mg/dL (75-99)
[2017-12-17] MEDS: INSULIN ASPART 100 UNIT/ML 1 ML 10 ML VIAL SQ SCH ×4 (06:42→22:18)
[2017-12-17 06:58] LABS: Anion Gap 14 mmol/L; Blood Urea Nitrogen 10 mg/dL (7-17); Calcium 9.5 mg/dL (8.4-10.2); Carbon Dioxide 24 mmol/L (22-30); Chloride 103 mmol/L (98-107); Glucose 122 mg/dL (74-99); Potassium 4.1 mmol/L (3.5-5.1); Sodium 141 mmol/L (137-145)
[2017-12-17] MEDS: CARVEDILOL 12.5 MG TAB PO SCH ×2 (07:58→17:23)
--- NOTE | 2017-12-17 09:08 | P.CRDCN ---
History of Present Illness History of present illness: Patient was evaluated this morning she states she was admitted because of swelling in the legs and shortness of breath At this time no chest discomfort no dizziness lightheadedness she lying comfortably in bed and there is no lower extremity edema. She does not appear to be in any respiratory distress no shortness of breath at this time *History of COPD diabetes obesity, morbid, hypertension dyslipidemia and a cardiomyopathy and a foot ulcer Review of systems: No fever, positive chills or rigors, no cough, phlegm or expectoration, no nausea, vomiting or diarrhea, no hematuria, dysuria, no musculoskeletal complaints, no strokes or seizures, no skin lesions. Past surgical history of adenoidectomy ICD implant, section, cardiac catheterization and ablation of the toe Patient stop smoking for quite some time she does have a medical marijuana card Family history noncontributory Medication list was reviewed as documented in the chart ALLERGIES to penicillin on examination there is no lower extremity edema noted the pulses in the feet. Heart sounds S1 and S2 are normal no murmurs or gallops Breath sounds are reduced bilaterally but no rhonchi no crackles She is afebrile blood pressure 126/70 mmHg pulse rate in the 80s and 90s 98.7F Abdomen is soft nontender Cardiac enzymes normal electrolytes normal Impression Known cardiac myopathy ICD implant Stable from a heart failure standpoint Ulcers in both feet Suggest From a chronic standpoint she should continue cardiac medications When necessary follow-up Past Medical History Past Medical History: Asthma, Coronary Artery Disease (CAD), Heart Failure, COPD , CVA/TIA, Diabetes Mellitus, Hypertension, Myocardial Infarction (SD), Pneumonia, Seizure Disorder Additional Past Medical History / Comment(s): MINOR SD 11/2013. CARDIOMYOPATHY. ASTHMA IN PAST, VARICOSE VEINS. Diabetic NEUROPATHY IN FEET. 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 PICC LINE PLACED IN AUGUST 2016 FOR OSTEOMYLITIS BOTH FEET, DR VILLAREAL MANAGED ANTIBIOTICS Last Myocardial Infarction Date:: 11/2013 History of Any Multi-Drug Resistant Organisms: MRSA, VRE Date of last positivie culture/infection: 2016 MDRO Source:: RIGHT FOOT Past Surgical History: Adenoidectomy, AICD, Section, Heart Catheterization, Orthopedic Surgery, Pacemaker, Tonsillectomy Additional Past Surgical History / Comment(s): AICD - [employer]. has pacemaker defibrillator, right great toe amputation 04/2016 Past Anesthesia/Blood Transfusion Reactions: No Reported Reaction Type of Cardiac Device: Permanent Pacemaker, AICD Device Placement Date:: 2011 Past Psychological History: Bipolar Additional Psychological History / Comment(s): Single. Lives in the family home with her 2 children, as well as her son-in-law and brother. There are 3 pet cats and a dog in the home. 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 No alcohol or IV drug use. Quit smoking in Oct 2017. Has medical marijuana card and smokes marijuana on a daily basis at bedtime for pain control.. Smoking Status: Former smoker Past Alcohol Use History: None Reported Additional Past Alcohol Use History / Comment(s): STARTED SMOKING AT AGE 12 SMOKES 4-5 CIG PER DAY Past Drug Use History: Marijuana Additional Drug Use History / Comment(s): medical marijuana card - Past Family History Mother Family Medical History: Deep Vein Thrombosis (DVT) Additional Family Medical History / Comment(s): kidney failure. Father History Unknown: Yes Family Medical History: Cancer Medications and Allergies Home Medications Medication Instructions Recorded Confirmed Type Carvedilol [Coreg] 25 mg PO BID 03/04/15 12/15/17 History Spironolactone [Aldactone] 25 mg PO DAILY 03/04/15 12/15/17 History Digoxin [Lanoxin] 250 mcg PO QAM 08/22/15 12/15/17 History acetaZOLAMIDE [Diamox Sequels] 500 mg PO BID 12/03/16 12/15/17 History Insulin Aspart [NovoLOG 20 unit SQ AC-TID 12/17/16 12/15/17 History (formulary)] Albuterol Inhaler [Ventolin Hfa 2 puff INHALATION RT-Q6H PRN 08/07/17 12/15/17 History Inhaler] Gabapentin [Neurontin] 600 mg PO BID 08/19/17 12/15/17 History DULoxetine HCL [Cymbalta] 30 mg PO DAILY #7 cap 08/22/17 12/15/17 Rx Furosemide [Lasix] 60 mg PO BID@0900,1600 #60 tab 11/05/17 12/15/17 Rx Insulin Glargine [Lantus] 50 unit SQ QAM #0 11/06/17 12/15/17 Rx Sacubitril/Valsartan [Entresto 24 1 tab PO BID 12/15/17 12/15/17 History mg-26 mg Tablet] Allergies Allergy/AdvReac Type Severity Reaction Status Date / Time Penicillins Allergy Rash/Hives Verified 12/15/17 17:02 Physical Exam Vitals: Vital Signs Temp Pulse Resp BP Pulse Ox 12/17/17 08:09 99.8 F H 90 16 126/70 90 L 12/17/17 04:00 98.7 F 87 16 144/68 93 L 12/17/17 00:00 98.1 F 74 16 133/70 93 L 12/16/17 20:00 97.5 F L 71 16 138/70 94 L 12/16/17 16:10 99.0 F 82 16 155/69 93 L 12/16/17 15:51 16 12/16/17 12:38 97.6 F 80 16 137/73 95 12/16/17 12:04 97.6 F 80 18 137/73 95 12/16/17 11:38 82 18 Intake and Output 12/16/17 12/17/17 12/17/17 22:59 06:59 14:59 Intake Total 1202 Balance 1202 Intake: Intake, IV Titration 500 Amount Vancomycin 2,000 mg In 500 Sodium Chloride 0.9% 500 ml @ 167 mls/hr IVPB Q12H [facility] Rx#:[id number] Oral 702 Other: Voiding Method Toilet Toilet # Voids 2 2 Weight 129.1 kg Results 12/15/17 18:00 12/17/17 06:04 Comprehensive Metabolic Panel 12/17/17 Range/Units 06:04 Sodium 141 (137-145) mmol/L Potassium 4.1 (3.5-5.1) mmol/L Chloride 103 (98-107) mmol/L Carbon Dioxide 24 (22-30) mmol/L BUN 10 (7-17) mg/dL Creatinine 1.10 H (0.52-1.04) mg/dL Glucose 122 H (74-99) mg/dL Calcium 9.5 (8.4-10.2) mg/dL Current Medications Generic Name Dose Route Start Last Admin Trade Name Freq PRN Reason Stop Dose Admin Acetaminophen 650 mg 12/15/17 19:40 Tylenol Tab PO Q6HR PRN Mild Pain or Fever > 100.5 Acetazolamide 500 mg 12/15/17 21:00 12/16/17 20:33 Diamox PO 500 mg BID JAN Administration Albuterol Sulfate 2.5 mg 12/15/17 19:43 Ventolin Nebulized INHALATION RT-Q6H PRN Shortness Of Breath Carvedilol 25 mg 12/16/17 07:30 12/17/17 07:58 Coreg PO Not Given AC-BID JAN Digoxin 250 mcg 12/16/17 09:00 12/16/17 08:34 Lanoxin PO 250 mcg QAM JAN Administration Furosemide 60 mg 12/16/17 18:00 12/17/17 06:16 Lasix IV 60 mg Q6HR JAN Administration Gabapentin 600 mg 12/15/17 21:00 12/16/17 20:33 Neurontin PO 600 mg BID JAN Administration Hydromorphone HCl 0.5 mg 12/15/17 19:40 12/17/17 06:16 Dilaudid IVP 0.5 mg Q3HR PRN Administration Moderate Pain Hydromorphone HCl 1 mg 12/15/17 19:40 Dilaudid IVP Q3HR PRN Severe Pain Sodium Chloride 1,000 mls @ 120 mls/hr 12/15/17 19:45 12/17/17 06:23 Saline 0.9% IV 120 mls/hr .Q8H20M JAN Administration Vancomycin HCl 2,000 mg/ 500 mls @ 167 mls/hr 12/16/17 07:00 12/17/17 06:16 Sodium Chloride IVPB 167 mls/hr Q12H [facility]AN Administration Ibuprofen 400 mg 12/15/17 19:40 Motrin PO Q6HR PRN Mild Pain or Fever > 100.5 Insulin Aspart 0 unit 12/15/17 21:00 12/17/17 06:42 Novolog SQ Not Given [facility] Protocol Insulin Detemir 38 unit 12/17/17 08:00 Levemir SQ 0800 [facility] Metoclopramide HCl 10 mg 12/16/17 18:00 12/17/17 06:16 Reglan IVP 10 mg Q6HR JAN Administration Miscellaneous Information 0 each 12/17/17 18:00 Vancomycin Trough Due MISCELLANE 12/17/17 18:01 DIRECTED ONE Multivitamins 1 each 12/16/17 12:00 12/16/17 15:35 Theragran PO Not Given DAILY@1200 [facility]AN Naloxone HCl 0.2 mg 12/15/17 19:40 Narcan IV Q2M PRN Opioid Reversal Ondansetron HCl 4 mg 12/16/17 16:46 Zofran IVP Q6HR PRN Nausea And Vomiting Pantoprazole Sodium 40 mg 12/16/17 09:00 12/16/17 08:34 Protonix IV 40 mg DAILY JAN Administration Sacubitril/Valsartan 1 each 12/15/17 21:00 12/16/17 20:33 Entresto 24 Mg-26 Mg Tablet PO 1 each BID JAN Administration Spironolactone 25 mg 12/16/17 09:00 12/16/17 08:35 Aldactone PO 25 mg DAILY JAN Administration Intake and Output 12/16/17 12/17/17 12/17/17 22:59 06:59 14:59 Intake Total 1202 Balance 1202 Intake: Intake, IV Titration 500 Amount Vancomycin 2,000 mg In 500 Sodium Chloride 0.9% 500 ml @ 167 mls/hr IVPB Q12H [facility] Rx#:[id number] Oral 702 Other: Voiding Method Toilet Toilet # Voids 2 2 Weight 129.1 kg 12/15/17 18:00 12/17/17 06:04
[2017-12-17] MEDS: acetaZOLAMIDE 250 MG TAB PO SCH ×2 (11:53→20:50)
[2017-12-17] MEDS: MULTIVITAMINS, THERA 1 EACH TAB PO SCH (11:53)
[2017-12-17] MEDS: SACUBITRIL/VALSARTAN 24 MG-26 MG TABLET PO SCH ×2 (11:53→20:51)
[2017-12-17] MEDS: GABAPENTIN 300 MG CAP PO SCH ×2 (11:53→20:50)
[2017-12-17] MEDS: PANTOPRAZOLE 40 MG/10 ML VIAL IV SCH (11:56)
[2017-12-17 12:17] LABS: Glucose,Whole Blood 140 mg/dL (75-99)
[2017-12-17] MEDS ORDERED: IV FLUID CONTINUATION 1,000 ML IV ONE (12:44)
[2017-12-17] MEDS ORDERED: KETAMINE 10 MG/ML 20 ML VIAL ONE (12:55)
[2017-12-17] MEDS ORDERED: ONDANSETRON 4 MG/2 ML VIAL ONE (12:55)
[2017-12-17] MEDS ORDERED: fentaNYL (PF) 50 MCG/ML 2 ML AMP ONE (12:55)
[2017-12-17] MEDS ORDERED: MIDAZOLAM 2 MG/2 ML VIAL ONE (12:55)
[2017-12-17] MEDS ORDERED: diphenhydrAMINE 50 MG/ML 1 ML VIAL ONE (12:55)
[2017-12-17] MEDS ORDERED: LACTATED RINGERS 1,000 ML IV ONE (12:56)
[2017-12-17] MEDS ORDERED: LIDOCAINE 2% INJ 20 MG/ML SQ ONE ×2 (13:07)
[2017-12-17 13:50] LABS: Glucose,Whole Blood 158 mg/dL (75-99)
--- NOTE | 2017-12-17 14:43 | OP ---
OPERATIVE REPORT PREOP DIAGNOSIS: Marshall's grade 3 infected ulcer of the left foot big toe plantar aspect. OPERATION: Left foot big toe amputation. DESCRIPTION OF PROCEDURE: This patient has history of diabetes and patient has this infected Marshall grade 3 ulcer, left foot big toe for the last few weeks. Patient came to see Dr. Delong. The patient has been admitted. The patient was discussed and scheduled for amputation. She also has some callus formation noted on the plantar aspect base of the 2nd and 3rd toe. The patient brought to the operating room and with local IV sedation and incision was made on the base of the head of the 1st metatarsal bone, deepened through skin, fat, and fascia. The anterior flap was created. The posterior flap, patient had a wound and we went circumferentially around the proximal phalanx and tendons were divided on the plantar and dorsal aspect and using bone cutter we divided the proximal phalanx. We kept the head of the metatarsal bone and after that, there was some bleeding points which were electrocoagulated and some were suture ligated. The fascia was approximated with 2-0 Vicryl. We created the anterior flap and incision was closed with 3-0 nylon mattress interrupted suture. We took the deep cultures and sent for the culture and sensitivity and dressing applied. Patient tolerated the procedure well. MMODL / IJN: [id number] /
[2017-12-17] MEDS: DIGOXIN 250 MCG TAB PO SCH (14:54)
[2017-12-17] MEDS: INSULIN DETEMIR 100 UNIT/ML 10 ML VIAL SQ SCH (14:54)
[2017-12-17] MEDS: SPIRONOLACTONE 25 MG TAB PO SCH (14:54)
[2017-12-17 16:52] LABS: Glucose,Whole Blood 156 mg/dL (75-99)
--- NOTE | 2017-12-17 17:45 | P.PN ---
Subjective Progress Note Date: 12/17/17 Principal diagnosis: Diabetic foot ulcer Mrs. Hinson is a 43-year-old female with a past medical history of asthma, CAD , heart failure, COPD, diabetes mellitus, hypertension, [place], seizure disorder coming in with a chief complaint of an ulcer on the left foot. Patient noticed the ulcer about 1 month back which was on the left plantar surface and also opened up 2-3 weeks back. Patient has poorly controlled diabetes with last A1c of 8.8. Patient was empirically started on IV antibiotics as per ID recommendations and vascular surgery was consulted for possible amputation. Patient had left great toe amputation done by vascular surgery today. She is being continued on antibiotics as per ID recommendations. On 12/17/2017: Patient is lying comfortably in the bed yet she does not have any active ongoing complaints. She denies having any chest pain and difficulty in breathing. No abdominal pain nausea vomiting or diarrhea. She has some soreness at the site of surgical site REVIEW OF SYSTEMS: NEURO:No c/o weakness of the extremties, No facial droop, No speech abnormalities. RESPIRATORY: No cough, No SOB, No chest discomfort. : No dysuria or hematuria CARDIAC: No chest pain , shortness of breath , paroxysmal nocturnal dyspnea GI: No abdominal pain, Nausea or vomiting. No constipation or diarrhea. Objective - Vital Signs Vital signs: Vital Signs Temp 98.3 F 12/17/17 14:25 Pulse 78 12/17/17 16:56 Resp 16 12/17/17 16:56 BP 144/70 12/17/17 16:56 Pulse Ox 93 L 12/17/17 16:56 Intake & Output 12/16/17 12/17/17 12/17/17 18:59 06:59 18:59 Intake Total 1562 100 Output Total 20 Balance 1562 80 Weight 134.4 kg 129.1 kg Intake: IV 100 Intake, IV Titration 500 Amount Vancomycin 2,000 mg In 500 Sodium Chloride 0.9% 500 ml @ 167 mls/hr IVPB Q12H [facility] Rx#:[id number] Oral 1062 Output: Estimated Blood Loss 20 Other: Voiding Method Toilet Toilet Toilet # Voids 2 2 - Exam GENERAL EXAM GEN. APPEARANCE: Obese HEAD EXAM: atraumatic, normocephalic, normal inspection NECK EXAM: normal inspection. Absent: tenderness, meningismus, full ROM, lymphadenopathy RESPIRATORY EXAM: normal lung sounds bilaterally. Absent: respiratory distress , wheezes, rales, rhonchi, stridor CARDIOVASCULAR EXAM: regular rate, normal rhythm, normal heart sounds. Absent : systolic murmur, diastolic murmur, rubs, gallop, clicks GI/ABDOMINAL EXAM: soft, normal bowel sounds. Absent: distended, tenderness, guarding, rebound, rigid NEUROLOGICAL EXAM: alert, oriented X3, no motor sensory deficit PSYCHIATRIC EXAM: normal affect, normal mood SKIN EXAM: warm, dry, intact, normal color. Absent: rash Left foot in a crepe bandage- I did not open the bandage. - Labs CBC & Chem 7: 12/15/17 18:00 12/17/17 06:04 Labs: Abnormal Lab Results - Last 24 Hours (Table) 12/16/17 12/16/17 12/17/17 Range/Units 06:08 21:11 06:04 Creatinine 1.10 H (0.52-1.04) mg/dL Glucose 122 H (74-99) mg/dL POC Glucose (mg/dL) 167 H (75-99) mg/dL Hemoglobin A1c 8.8 H (4.0-6.0) % 12/17/17 12/17/17 12/17/17 Range/Units 06:28 11:52 13:47 Creatinine (0.52-1.04) mg/dL Glucose (74-99) mg/dL POC Glucose (mg/dL) 142 H 140 H 158 H (75-99) mg/dL Hemoglobin A1c (4.0-6.0) % 12/17/17 Range/Units 16:47 Creatinine (0.52-1.04) mg/dL Glucose (74-99) mg/dL POC Glucose (mg/dL) 156 H (75-99) mg/dL Hemoglobin A1c (4.0-6.0) % Microbiology - Last 24 Hours (Table) 12/15/17 18:00 Gram Stain - Final Toe - Left First Wound Culture - Final Staphylococcus aureus Beta Hemolytic Strep Group G 12/17/17 13:24 Anaerobic Culture - Preliminary Toe - Left First 12/17/17 13:24 Tissue Culture - Preliminary Toe - Left First 12/15/17 18:00 Blood Culture - Preliminary Blood No Growth after 24 hours Assessment and Plan Assessment: Acute right big toe osteomyelitis status post amputation Peripheral neuropathy from poorly controlled diabetes Type 2 diabetes mellitus - insulin-dependent COPD and an excess smoker Essential hypertension Hyperlipidemia Acute on chronic congestive heart failure Systolic heart failure with ejection fraction of 30-35% probably from hypertensive heart disease PLAN The patient is to be continued on IV antibiotics as per ID recommendations. We' ll continue with the rest of her home medication regimen and further recommendations depending on the progress the patient. Her prognosis is guarded.
[2017-12-17] MEDS ORDERED: VANCOMYCIN TROUGH DUE 1 EACH MISC MISCELLANE ONE (18:00)
[2017-12-17 21:48] LABS: Glucose,Whole Blood 177 mg/dL (75-99)
[2017-12-18] MEDS: METOCLOPRAMIDE 5 MG/ML 2 ML VIAL IVP SCH ×4 (05:34→23:09)
[2017-12-18] MEDS: FUROSEMIDE 10 MG/ML 10 ML VIAL IV SCH ×4 (05:34→23:09)
[2017-12-18] MEDS: HYDROmorphone 0.5 MG/0.5 ML SYRINGE IVP PRN ×4 (05:55→22:06)
[2017-12-18 06:35] LABS: Anisocytosis Slight; Basophils % (A) 0 %; Eosinophils # (A) 0.4 k/uL (0-0.7); Eosinophils % (A) 4 %; HCT 32.3 % (34.0-46.0); HGB 9.6 gm/dL (11.4-16.0); Hypochromasia Marked; Lymphocytes # (A) 1.8 k/uL (1.0-4.8); Lymphocytes % (A) 16 %; MCH 21.4 pg (25.0-35.0); MCHC 29.6 g/dL (31.0-37.0); MCV 72.2 fL (80.0-100.0); Mean Platelet Volume 8.1; Microcytosis Moderate; Monocytes # (A) 0.4 k/uL (0-1.0); Monocytes % (A) 4 %; Neutrophils % (A) 74 %; Platelet Count 238 k/uL (150-450); Poikilocytosis Slight; RBC 4.48 m/uL (3.80-5.40); RDW 17.2 % (11.5-15.5); WBC 10.7 k/uL (3.8-10.6)
[2017-12-18 06:45] LABS: Glucose,Whole Blood 147 mg/dL (75-99)
[2017-12-18 06:46] LABS: Anion Gap 14 mmol/L; Blood Urea Nitrogen 14 mg/dL (7-17); Calcium 9.1 mg/dL (8.4-10.2); Carbon Dioxide 24 mmol/L (22-30); Chloride 103 mmol/L (98-107); Glucose 141 mg/dL (74-99); Potassium 3.7 mmol/L (3.5-5.1); Sodium 141 mmol/L (137-145)
[2017-12-18] MEDS: INSULIN ASPART 100 UNIT/ML 1 ML 10 ML VIAL SQ SCH ×4 (06:52→21:56)
[2017-12-18] MEDS: CARVEDILOL 12.5 MG TAB PO SCH ×2 (06:52→17:33)
[2017-12-18] MEDS: PANTOPRAZOLE 40 MG TABLET PO SCH (06:52)
[2017-12-18] MEDS: VANCOMYCIN 1,500 MG in SODIUM CHLORIDE 0.9% 250 ML IVPB SCH ×2 (06:52→18:30)
[2017-12-18] MEDS: SODIUM CHLORIDE 0.9% 1,000 ML IV SCH ×2 (08:01→16:43)
[2017-12-18] MEDS: SPIRONOLACTONE 25 MG TAB PO SCH (08:13)
[2017-12-18] MEDS: INSULIN DETEMIR 100 UNIT/ML 10 ML VIAL SQ SCH (08:13)
[2017-12-18] MEDS: acetaZOLAMIDE 250 MG TAB PO SCH ×2 (08:14→20:48)
[2017-12-18] MEDS: GABAPENTIN 300 MG CAP PO SCH ×2 (08:14→20:48)
[2017-12-18] MEDS: SACUBITRIL/VALSARTAN 24 MG-26 MG TABLET PO SCH ×2 (08:14→20:47)
[2017-12-18] MEDS: DIGOXIN 250 MCG TAB PO SCH (08:14)
[2017-12-18 12:27] LABS: Glucose,Whole Blood 193 mg/dL (75-99)
[2017-12-18] MEDS: MULTIVITAMINS, THERA 1 EACH TAB PO SCH (12:31)
--- NOTE | 2017-12-18 12:32 | PN ---
PROGRESS NOTE This is a 42-year-old, diabetic female, patient had a left foot big toe amputation yesterday and today we changed the dressing. . Stump site looks okay. There is a callus formation on the plantar aspect of the foot which is dry. We took the deep culture yesterday, have changed the dressing today and we will wait for the culture report and the patient is on vancomycin under the care of Dr. Alvarez. We will follow with you. MMODL / IJN: [id number] /
[2017-12-18] MEDS ORDERED: POTASSIUM CHLORIDE ER 20 MEQ TAB.ER PO STA (16:10)
[2017-12-18 17:44] LABS: Glucose,Whole Blood 215 mg/dL (75-99)
[2017-12-18] MEDS: IPRATROPIUM-ALBUTEROL 3 ML NEB INHALATION SCH (20:52)
[2017-12-18 21:03] LABS: Glucose,Whole Blood 198 mg/dL (75-99)
[2017-12-19 06:19] LABS: Glucose,Whole Blood 161 mg/dL (75-99)
[2017-12-19] MEDS: VANCOMYCIN 1,500 MG in SODIUM CHLORIDE 0.9% 250 ML IVPB SCH ×2 (06:32→19:56)
[2017-12-19] MEDS: INSULIN ASPART 100 UNIT/ML 1 ML 10 ML VIAL SQ SCH ×4 (06:32→20:43)
[2017-12-19] MEDS: METOCLOPRAMIDE 5 MG/ML 2 ML VIAL IVP SCH ×3 (06:32→17:48)
[2017-12-19] MEDS: CARVEDILOL 12.5 MG TAB PO SCH ×2 (06:33→17:04)
[2017-12-19] MEDS: PANTOPRAZOLE 40 MG TABLET PO SCH (06:33)
[2017-12-19] MEDS: FUROSEMIDE 10 MG/ML 10 ML VIAL IV SCH ×3 (06:33→17:48)
[2017-12-19] MEDS: IPRATROPIUM-ALBUTEROL 3 ML NEB INHALATION SCH ×3 (07:27→21:54)
[2017-12-19] MEDS: DIGOXIN 250 MCG TAB PO SCH (08:40)
[2017-12-19] MEDS: SPIRONOLACTONE 25 MG TAB PO SCH (08:40)
[2017-12-19] MEDS: INSULIN DETEMIR 100 UNIT/ML 10 ML VIAL SQ SCH (08:40)
[2017-12-19] MEDS: acetaZOLAMIDE 250 MG TAB PO SCH ×2 (08:40→20:44)
[2017-12-19] MEDS: SACUBITRIL/VALSARTAN 24 MG-26 MG TABLET PO SCH ×2 (08:40→20:45)
[2017-12-19] MEDS: GABAPENTIN 300 MG CAP PO SCH ×2 (09:05→20:44)
[2017-12-19 11:57] LABS: Glucose,Whole Blood 235 mg/dL (75-99)
[2017-12-19] MEDS: MULTIVITAMINS, THERA 1 EACH TAB PO SCH (12:01)
[2017-12-19] MEDS: HYDROmorphone 0.5 MG/0.5 ML SYRINGE IVP PRN ×3 (12:07→20:53)
[2017-12-19 13:39] VITALS: BMI 43.0
[2017-12-19 16:36] LABS: Glucose,Whole Blood 217 mg/dL (75-99)
--- NOTE | 2017-12-19 17:39 | PN ---
PROGRESS NOTE Patient came with the gangrene of the left foot big toe. Patient went with amputation and also she has some callus formation noted on the plantar aspect of the foot. The patient well known to us from the wound clinic. Cultures came back as a Staph aureus and beta-hemolytic strep group G. The patient's dressing is changed today and stump site looks good. There is no discharge or redness noted. There is a callus on the plantar aspect is dry. PLAN: Patient is stable from a surgical point of view. If the patient wants to go home, Dr. Alvarez will start her on antibiotic and I will follow in the wound clinic next Tuesday. Advised nonweightbearing on the left foot and change the dressing every 48 hours. MMODL / IJN: [id number] /
--- NOTE | 2017-12-19 17:40 | P.PN ---
Subjective Progress Note Date: 12/19/17 Principal diagnosis: Diabetic foot ulcer Mrs. Hinson is a 43-year-old female with a past medical history of asthma, CAD , heart failure, COPD, diabetes mellitus, hypertension, [place], seizure disorder coming in with a chief complaint of an ulcer on the left foot. Patient noticed the ulcer about 1 month back which was on the left plantar surface and also opened up 2-3 weeks back. Patient has poorly controlled diabetes with last A1c of 8.8. Patient was empirically started on IV antibiotics as per ID recommendations and vascular surgery was consulted for possible amputation. Patient had left great toe amputation done by vascular surgery today. She is being continued on antibiotics as per ID recommendations. On 12/17/2017: Patient is lying comfortably in the bed yet she does not have any active ongoing complaints. She denies having any chest pain and difficulty in breathing. No abdominal pain nausea vomiting or diarrhea. She has some soreness at the site of surgical site. On 12/18/17 : Pt endorses some shortness of breath ,no cough . She has some wheezing and states that she has it some times. No fever or chest pain. On 12/19/2017: Patient has no active complaints. She is still being continued on IV antibiotics. Awaiting Dr. Alvarez recommendations regarding antibiotics to be taken after discharge. REVIEW OF SYSTEMS: NEURO:No c/o weakness of the extremties, No facial droop, No speech abnormalities. RESPIRATORY: No cough, No chest discomfort. : No dysuria or hematuria CARDIAC: No chest pain, paroxysmal nocturnal dyspnea GI: No abdominal pain, Nausea or vomiting. No constipation or diarrhea. Objective - Vital Signs Vital signs: Vital Signs Temp 97.1 F L 12/19/17 15:00 Pulse 84 12/19/17 15:00 Resp 16 12/19/17 15:00 BP 127/76 12/19/17 15:00 Pulse Ox 94 L 12/19/17 15:00 Intake & Output 12/18/17 12/19/17 12/19/17 18:59 06:59 18:59 Intake Total 240 610 Output Total 500 Balance -260 610 Weight 126.6 kg 124.6 kg 124.6 kg Intake: Intake, IV Titration 250 Amount Vancomycin 1,500 mg In 250 Sodium Chloride 0.9% 250 ml @ 125 mls/hr IVPB Q12H [facility] Rx#:[id number] Oral 240 360 Output: Urine 500 Other: Voiding Method Toilet # Voids 3 - Exam GENERAL EXAM GEN. APPEARANCE: Obese HEAD EXAM: atraumatic, normocephalic, normal inspection NECK EXAM: normal inspection. Absent: tenderness, meningismus, full ROM, lymphadenopathy RESPIRATORY EXAM: Slight end expiratory wheezing on the left side. Normal BS on the right side. CARDIOVASCULAR EXAM: regular rate, normal rhythm, normal heart sounds. Absent : systolic murmur, diastolic murmur, rubs, gallop, clicks GI/ABDOMINAL EXAM: soft, normal bowel sounds. Absent: distended, tenderness, guarding, rebound, rigid NEUROLOGICAL EXAM: alert, oriented X3, no motor sensory deficit PSYCHIATRIC EXAM: normal affect, normal mood SKIN EXAM: warm, dry, intact, normal color. Absent: rash Left foot in a crepe bandage- I did not open the bandage - Labs CBC & Chem 7: 12/18/17 06:18 12/18/17 06:18 Labs: Abnormal Lab Results - Last 24 Hours (Table) 12/18/17 12/18/17 12/19/17 Range/Units 17:22 21:02 06:02 POC Glucose (mg/dL) 215 H 198 H 161 H (75-99) mg/dL 12/19/17 12/19/17 Range/Units 11:52 16:33 POC Glucose (mg/dL) 235 H 217 H (75-99) mg/dL Microbiology - Last 24 Hours (Table) 12/17/17 13:24 Gram Stain - Preliminary Toe - Left First Tissue Culture - Preliminary Presumptive Staph aureus Beta Hemolytic Strep Group G 12/15/17 18:00 Blood Culture - Preliminary Blood No Growth after 72 hours Assessment and Plan Assessment: Acute left big toe osteomyelitis status post amputation secondary to Diabetic peripheral neuropathy. Peripheral neuropathy from poorly controlled diabetes Type 2 diabetes mellitus - insulin-dependent COPD and an excess smoker Essential hypertension Hyperlipidemia Acute on chronic congestive heart failure Systolic heart failure with ejection fraction of 30-35% probably from hypertensive heart disease PLAN The patient is to be continued on IV antibiotics as per ID recommendations. We' ll continue with the rest of her home medication regimen and further recommendations depending on the progress the patient. Her prognosis is guarded.
--- NOTE | 2017-12-19 17:40 | P.PN ---
Subjective Progress Note Date: 12/18/17 Principal diagnosis: Diabetic foot ulcer Mrs. Hinson is a 43-year-old female with a past medical history of asthma, CAD , heart failure, COPD, diabetes mellitus, hypertension, [place], seizure disorder coming in with a chief complaint of an ulcer on the left foot. Patient noticed the ulcer about 1 month back which was on the left plantar surface and also opened up 2-3 weeks back. Patient has poorly controlled diabetes with last A1c of 8.8. Patient was empirically started on IV antibiotics as per ID recommendations and vascular surgery was consulted for possible amputation. Patient had left great toe amputation done by vascular surgery today. She is being continued on antibiotics as per ID recommendations. On 12/17/2017: Patient is lying comfortably in the bed yet she does not have any active ongoing complaints. She denies having any chest pain and difficulty in breathing. No abdominal pain nausea vomiting or diarrhea. She has some soreness at the site of surgical site. On 12/18/17 : Pt endorses some shortness of breath ,no cough . She has some wheezing and states that she has it some times. No fever or chest pain. REVIEW OF SYSTEMS: NEURO:No c/o weakness of the extremties, No facial droop, No speech abnormalities. RESPIRATORY: No cough, No chest discomfort. : No dysuria or hematuria CARDIAC: No chest pain, paroxysmal nocturnal dyspnea GI: No abdominal pain, Nausea or vomiting. No constipation or diarrhea. Objective - Vital Signs Vital signs: Vital Signs Temp 97.8 F 12/18/17 16:35 Pulse 80 12/18/17 21:01 Resp 12 12/18/17 16:35 BP 136/76 12/18/17 16:35 Pulse Ox 97 12/18/17 20:52 Intake & Output 12/18/17 12/18/17 12/19/17 06:59 18:59 06:59 Intake Total 240 Output Total 500 Balance -260 Weight 126.6 kg 126.6 kg Intake: Oral 240 Output: Urine 500 Other: Voiding Method Toilet Toilet # Voids 3 - Exam GENERAL EXAM GEN. APPEARANCE: Obese HEAD EXAM: atraumatic, normocephalic, normal inspection NECK EXAM: normal inspection. Absent: tenderness, meningismus, full ROM, lymphadenopathy RESPIRATORY EXAM: Slight end expiratory wheezing on the left side. Normal BS on the right side. CARDIOVASCULAR EXAM: regular rate, normal rhythm, normal heart sounds. Absent : systolic murmur, diastolic murmur, rubs, gallop, clicks GI/ABDOMINAL EXAM: soft, normal bowel sounds. Absent: distended, tenderness, guarding, rebound, rigid NEUROLOGICAL EXAM: alert, oriented X3, no motor sensory deficit PSYCHIATRIC EXAM: normal affect, normal mood SKIN EXAM: warm, dry, intact, normal color. Absent: rash Left foot in a crepe bandage- I did not open the bandage. - Labs CBC & Chem 7: 12/18/17 06:18 12/18/17 06:18 Labs: Abnormal Lab Results - Last 24 Hours (Table) 12/18/17 12/18/17 12/18/17 Range/Units 06:18 06:18 06:32 WBC 10.7 H (3.8-10.6) k/uL Hgb 9.6 L (11.4-16.0) gm/dL Hct 32.3 L (34.0-46.0) % MCV 72.2 L (80.0-100.0) fL MCH 21.4 L (25.0-35.0) pg MCHC 29.6 L (31.0-37.0) g/dL RDW 17.2 H (11.5-15.5) % Neutrophils # 8.0 H (1.3-7.7) k/uL Glucose 141 H (74-99) mg/dL POC Glucose (mg/dL) 147 H (75-99) mg/dL 12/18/17 12/18/17 12/18/17 Range/Units 12:23 17:22 21:02 WBC (3.8-10.6) k/uL Hgb (11.4-16.0) gm/dL Hct (34.0-46.0) % MCV (80.0-100.0) fL MCH (25.0-35.0) pg MCHC (31.0-37.0) g/dL RDW (11.5-15.5) % Neutrophils # (1.3-7.7) k/uL Glucose (74-99) mg/dL POC Glucose (mg/dL) 193 H 215 H 198 H (75-99) mg/dL Microbiology - Last 24 Hours (Table) 12/15/17 18:00 Blood Culture - Preliminary Blood No Growth after 72 hours 12/17/17 13:24 Gram Stain - Preliminary Toe - Left First Tissue Culture - Preliminary 12/15/17 18:00 Gram Stain - Final Toe - Left First Wound Culture - Final Staphylococcus aureus Beta Hemolytic Strep Group G Assessment and Plan Assessment: Acute left big toe osteomyelitis status post amputation secondary to Diabetic peripheral neuropathy. Peripheral neuropathy from poorly controlled diabetes Type 2 diabetes mellitus - insulin-dependent COPD and an excess smoker Essential hypertension Hyperlipidemia Acute on chronic congestive heart failure Systolic heart failure with ejection fraction of 30-35% probably from hypertensive heart disease PLAN The patient is to be continued on IV antibiotics as per ID recommendations. As she is wheezing, we start her on DueoNebs. We'll continue with the rest of her home medication regimen and further recommendations depending on the progress the patient. Her prognosis is guarded.
--- NOTE | 2017-12-19 19:10 | P.PN ---
Subjective Progress Note Date: 12/19/17 Principal diagnosis: Diabetic foot ulcer This is a 42-year-old female patient who is well-known to ID service as she has had previous diabetic ulcer [facility] status post amputation of the right great toe. Patient was last [facility] 09/30/[facility], under the care of Dr. Madrigal with a Marshall grade 2 ulcer the bilateral feet. It is unclear if patient was discharged from service there. Patient states that about 1 month ago she developed wound to the left plantar surface and the ulcer opened up about 2-3 weeks ago. She has not sought treatment. She states her blood sugars have been running very high and her last hemoglobin A1c was 8.8. She does complain of chills. She complains of significant pain and edema to the left foot but both feet have been edematous. She also gives history that she was hospitalized for heart failure and since her discharge on November 06, she has gained 20 pounds. Patient came into [facility] emergency center for evaluation. She has been afebrile with a white count of 10.7. Troponins were negative on 3 draws. Chest x-ray showed no acute findings. Left foot x-ray shows soft tissue swelling, calcaneal spurring, no specific changes for osteomyelitis. Left toe wound culture is showing gram-positive cocci and blood cultures status received. Patient does complain of left ankle pain for which she states in August she was using a contact cast on the right leg and was in the crisis unit due to some mental health issue and was walking a lot for about 3 days and ever since then she has had left ankle pain and swelling. The patient fortunately is doing well now after her amputation. She's having no fevers or chills. Cultures in process. Blood cultures are negative. Objective - Vital Signs Vital signs: Vital Signs Temp 97.1 F L 12/19/17 15:00 Pulse 84 12/19/17 15:00 Resp 16 12/19/17 15:00 BP 127/76 12/19/17 15:00 Pulse Ox 94 L 12/19/17 15:00 Intake & Output 12/19/17 12/19/17 12/20/17 06:59 18:59 06:59 Intake Total 610 Balance 610 Weight 124.6 kg 124.6 kg Intake: Intake, IV Titration 250 Amount Vancomycin 1,500 mg In 250 Sodium Chloride 0.9% 250 ml @ 125 mls/hr IVPB Q12H [facility] Rx#:[id number] Oral 360 Other: # Voids 3 - Exam Gen: This is a morbidly obese 42-year-old female. She is sitting up in bed and appears to be in no acute distress. HEENT: Head is atraumatic, normocephalic. Pupils equal, round. Sclerae is anicteric. Mucous members of the mouth are moist. Dentition is in poor order. NECK: Short and thick. Supple. No JVD. No lymphadenopathy. No thyromegaly. LUNGS: Clear to auscultation. No wheezes or rhonchi. No intercostal retractions. HEART: Regular rate and rhythm. No murmur. ABDOMEN: Morbidly obese Soft. Bowel sounds are present. No masses. No tenderness. EXTREMITIES: Bilateral 1+ pedal edema. The amputation site of the left great toe is intact. There is no drainage. The chronic calloused the plantar surface of the third metatarsal head is without drainage at this time. No erythema or ascending lymphangitis. No lymphadenopathy into the left groin. No other skin lesions are seen no lesions on the right foot. NEUROLOGICAL: Patient is awake, alert and oriented x3. - Labs CBC & Chem 7: 12/18/17 06:18 12/18/17 06:18 Labs: Abnormal Lab Results - Last 24 Hours (Table) 12/18/17 12/19/17 12/19/17 Range/Units 21:02 06:02 11:52 POC Glucose (mg/dL) 198 H 161 H 235 H (75-99) mg/dL 12/19/17 Range/Units 16:33 POC Glucose (mg/dL) 217 H (75-99) mg/dL Microbiology - Last 24 Hours (Table) 12/17/17 13:24 Gram Stain - Preliminary Toe - Left First Tissue Culture - Preliminary Presumptive Staph aureus Beta Hemolytic Strep Group G 12/15/17 18:00 Blood Culture - Preliminary Blood No Growth after 72 hours Laboratory Results WBC 10.7 k/uL (3.8-10.6) H 12/18/17 06:18 RBC 4.48 m/uL (3.80-5.40) 12/18/17 06:18 Hgb 9.6 gm/dL (11.4-16.0) L 12/18/17:18 Hct 32.3 % (34.0-46.0) L 12/18/17 06:18 MCV 72.2 fL (80.0-100.0) L 12/18/17 06:18 MCH 21.4 pg (25.0-35.0) L 12/18/17 06:18 MCHC 29.6 g/dL (31.0-37.0) L 12/18/17:18 RDW 17.2 % (11.5-15.5) H 12/18/17 06:18 Plt Count 238 k/uL (150-450) 12/18/17 06:18 Neutrophils % 74 % 12/18/17:18 Lymphocytes % 16 % 12/18/17 06:18 Monocytes % 4 % 12/18/17 06:18 Eosinophils % 4 % 12/18/17 06:18 Basophils % 0 % 12/18/17 06:18 Neutrophils # 8.0 k/uL (1.3-7.7) H 12/18/17 06:18 Lymphocytes # 1.8 k/uL (1.0-4.8) 12/18/17 06:18 Monocytes # 0.4 k/uL (0-1.0) 12/18/17 06:18 Eosinophils # 0.4 k/uL (0-0.7) 12/18/17 06:18 Basophils # 0.0 k/uL (0-0.2) 12/18/17 06:18 Hypochromasia Marked 12/18/17 06:18 Poikilocytosis Slight 12/18/17 06:18 Anisocytosis Slight 12/18/17 06:18 Microcytosis Moderate 12/18/17 06:18 PT 10.2 sec (9.0-12.0) 12/15/17 18:00 INR 1.0 (<1.2) 12/15/17 18:00 APTT 22.2 sec (22.0-30.0) 12/15/17 18:00 Sodium 141 mmol/L (137-145) 12/18/17 06:18 Potassium 3.7 mmol/L (3.5-5.1) 12/18/17 06:18 Chloride 103 mmol/L (98-107) 12/18/17 06:18 Carbon Dioxide 24 mmol/L (22-30) 12/18/17 06:18 Anion Gap 14 mmol/L 12/18/17 06:18 BUN 14 mg/dL (7-17) 12/18/17 06:18 Creatinine 0.94 mg/dL (0.52-1.04) 12/18/17 06:18 Est GFR (MDRD) Af Amer >60 (>60 ml/min/1.73 sqM) 12/18/17 06:18 Est GFR (MDRD) Non-Af >60 (>60 ml/min/1.73 sqM) 12/18/17 06:18 Glucose 141 mg/dL (74-99) H 12/18/17 06:18 POC Glucose (mg/dL) 217 mg/dL (75-99) H 12/19/17 16:33 POC Glu [employer] Sultana Barrera 12/19/17 16:[address] Glu mg/dL 203 12/16/17 06:08 Hemoglobin A1c 8.8 % (4.0-6.0) H 12/16/17 06:08 Plasma Lactic Acid Warren 1.3 mmol/L (0.7-2.0) 12/15/17 18:00 Calcium 9.1 mg/dL (8.4-10.2) 12/18/17 06:18 Magnesium 1.7 mg/dL (1.6-2.3) 12/15/17 18:00 Total Bilirubin 0.2 mg/dL (0.2-1.3) 12/15/17 18:00 AST 19 U/L (14-36) 12/15/17 18:00 ALT 28 U/L (9-52) 12/15/17 18:00 Alkaline Phosphatase 106 U/L (38-126) 12/15/17 18:00 Total Creatine Kinase 49 U/L (30-135) 12/16/17 06:08 CK-MB (CK-2) 1.4 ng/mL (0.0-2.4) 12/16/17 06:08 CK-MB (CK-2) Rel Index 2.9 12/16/17 06:08 Troponin I <0.012 ng/mL (0.000-0.034) 12/16/17 06:08 NT-Pro-B Natriuret Pep 1070 pg/mL 12/15/17 18:00 Total Protein 7.2 g/dL (6.3-8.2) 12/15/17 18:00 Albumin 3.8 g/dL (3.5-5.0) 12/15/17 18:00 Vancomycin Trough 22.5 ug/mL 12/17/17 17:56 Microbiology 12/17/17 13:24 Toe - Left First Gram Stain - Preliminary 12/17/17 13:24 Toe - Left First Tissue Culture - Preliminary Presumptive Staph aureus Beta Hemolytic Strep Group G 12/15/17 18:00 Blood Blood Culture - Preliminary No Growth after 72 hours 12/15/17 18:00 Toe - Left First Gram Stain - Final 12/15/17 18:00 Toe - Left First Wound Culture - Final Staphylococcus aureus Beta Hemolytic Strep Group G 12/17/17 13:24 Toe - Left First Anaerobic Culture - Preliminary Assessment and Plan (1) Diabetic ulcer of foot associated with type 2 diabetes mellitus, with necrosis of bone Narrative/Plan: 42-year-old woman with diabetes mellitus type 2 poorly controlled his developed worsening infection to the great toe is now status post the amputation. She's doing well in the postoperative time frame. There are plans for discharge in the near future. Fortunately with removal of the infected area would not need outpatient intravenous antibiotic therapy. Oral antibiotic therapy with cefuroxime and plan for home with follow-up with the wound healing Center. A Darco forefoot offloading shoe would be helpful at discharge. Local wound care will be provided by the patient and her daughter. Current Visit: No Status: Acute Code(s): E11.621 - TYPE 2 DIABETES MELLITUS WITH FOOT ULCER; L97.504 - NON-PRS CHRONIC ULCER OTH PRT UNSP FOOT W NECROSIS OF BONE SNOMED Code(s): 9369916784797
[2017-12-19 20:34] LABS: Glucose,Whole Blood 200 mg/dL (75-99)
[2017-12-19 21:44] VITALS: RESP 18
[2017-12-20] MEDS: FUROSEMIDE 10 MG/ML 10 ML VIAL IV SCH ×3 (00:05→12:22)
[2017-12-20] MEDS: METOCLOPRAMIDE 5 MG/ML 2 ML VIAL IVP SCH ×3 (00:07→12:23)
[2017-12-20] MEDS ORDERED: VANCOMYCIN TROUGH DUE 1 EACH MISC MISCELLANE ONE (06:00)
[2017-12-20 07:42] LABS: Glucose,Whole Blood 180 mg/dL (75-99)
[2017-12-20 07:59] LABS: Calcium 9.4 mg/dL (8.4-10.2); Potassium 3.7 mmol/L (3.5-5.1)
[2017-12-20 08:03] VITALS: BP 115/61; TEMP 97.2
[2017-12-20] MEDS: IPRATROPIUM-ALBUTEROL 3 ML NEB INHALATION SCH ×2 (08:11→13:49)
[2017-12-20] MEDS: VANCOMYCIN 1,500 MG in SODIUM CHLORIDE 0.9% 250 ML IVPB SCH (08:18)
[2017-12-20] MEDS: PANTOPRAZOLE 40 MG TABLET PO SCH (08:22)
[2017-12-20] MEDS: acetaZOLAMIDE 250 MG TAB PO SCH (08:22)
[2017-12-20] MEDS: CARVEDILOL 12.5 MG TAB PO SCH (08:23)
[2017-12-20] MEDS: DIGOXIN 250 MCG TAB PO SCH (08:23)
[2017-12-20] MEDS: GABAPENTIN 300 MG CAP PO SCH (08:23)
[2017-12-20 08:24] VITALS: PULSE 86
[2017-12-20] MEDS: SPIRONOLACTONE 25 MG TAB PO SCH (08:24)
[2017-12-20] MEDS: SACUBITRIL/VALSARTAN 24 MG-26 MG TABLET PO SCH (08:24)
[2017-12-20] MEDS: INSULIN DETEMIR 100 UNIT/ML 10 ML VIAL SQ SCH (08:26)
[2017-12-20] MEDS: INSULIN ASPART 100 UNIT/ML 1 ML 10 ML VIAL SQ SCH ×2 (08:31→12:49)
[2017-12-20 11:33] LABS: Glucose,Whole Blood 256 mg/dL (75-99)
[2017-12-20] MEDS: MULTIVITAMINS, THERA 1 EACH TAB PO SCH (12:50)
[2017-12-21] MEDS ORDERED: VANCOMYCIN 1,500 MG in SODIUM CHLORIDE 0.9% 250 ML IVPB SCH (08:00)
--- NOTE | 2018-01-08 09:39 | DS ---
DISCHARGE SUMMARY DATE OF ADMISSION: 12/15/2017. DISCHARGE DATE: 12/20/2017. ADMISSION DIAGNOSES: 1. Acute right great toe osteomyelitis. 2. Left plantar surface wound. 3. Peripheral neuropathy with diabetes. 4. Chronic obstructive pulmonary disease. 5. Diabetes mellitus type 2. 6. Essential hypertension. 7. Hyperlipidemia. 8. Acute on chronic congestive heart failure, ejection fraction 30-35% from hypertensive heart disease. DISCHARGE DIAGNOSES: 1. a. Acute right great toe osteomyelitis. b. Left plantar surface wound. c. Peripheral neuropathy with diabetes. d. Chronic obstructive pulmonary disease. e. Diabetes mellitus type 2. f. Essential hypertension. g. Hyperlipidemia. h.Acute on chronic congestive heart failure, ejection fraction 30-35% from hypertensive heart disease. BRIEF HISTORY: This patient this is a 42-year-old patient with past medical history of COPD, hypertension, diabetes, presented to the ED with left foot ulcer on the plantar aspect of the big toe. Patient will be followed by Dr. Madrigal . The ulcer continued to worsen. She was advised transfer to the hospital for further treatment evaluation. The patient has a past medical history significant for: 1. COPD. 2. Coronary artery disease. 3. CHF, ejection fraction 35% to 40%. 4. CVA. 5. Diabetes mellitus type 2. 6. Hypertension. 7. CAD. 8. Peripheral neuropathy. 9. Diabetic wounds previously both legs on physical examination. ADMISSION MEDICATIONS: Patient is on Diamox 500 mg b.i.d., Aldactone 25 mg daily, and Crestor 1 tab b.i.d. Nitro sublingual subcu in the morning, NovoLog 20 subcu t.i.d., Neurontin 600 mg p.o. b.i.d., Lasix 60 mg b.i.d. and Cymbalta 30 mg daily. LABS: CBC white blood count 10.7, hemoglobin 9.1, chemical profile, potassium 4.0, BUN 13, creatinine 0.7. BNP of 1070. EKG was unremarkable. Chest x-ray did show some prominence. The patient was recommended a bone scan for osteomyelitis. IV antibiotics were continued per ID recommendation. All the home medications and home regimen was continued. Patient did show improvement. The patient bone scan did show osteomyelitis. The patient vascular surgeon was consulted. The patient was recommended left great toe amputation. The patient improved. Underwent amputation without any complications. She was stable, was discharged home in a stable condition with plan to continue all current medications and follow up with the primary care physician. DISCHARGE MEDICATIONS: Include Ceftin 500 mg b.i.d. for 7 days, Protonix 40 mg daily for 30 days, albuterol inhaler 2 puffs q.i.d., Coreg 25 mg b.i.d., Cymbalta 30 mg daily, digoxin 250 mcg daily, Lasix 60 mg b.i.d., Neurontin 600 mg b.i.d., insulin glargine 50 mg q.h.s., and Entresto 1 tablet p.o. b.i.d., Aldactone 25 mg daily. Diamox 500 mg b.i.d. The patient did not have any further complications. She was discharged in a stable condition to follow up with the primary care physician. MMJONAS / LUCHO: [id number] / MTDD
== END 2017-12-20 15:15 | disposition home or self-care (01) | DRG 616 ==
LOC: EC 15:47 → 6SEL 19:42 → 5MS5E 12-19 18:04
PROVIDERS: ADMIT Hospitalist; ATTEND Hospitalist
PROC: 0Y6Q0Z0 Detachment at Left 1st Toe, Complete, Open Approach (ICD-10-PCS; principal; 2017-12-15)
DX: E11.69 Type 2 diabetes mellitus with other specified complication (principal); I50.23 Acute on chronic systolic (congestive) heart failure; I42.9 Cardiomyopathy, unspecified; M86.172 Other acute osteomyelitis, left ankle and foot; E11.52 Type 2 diabetes mellitus with diabetic peripheral angiopathy with gangrene; E11.65 Type 2 diabetes mellitus with hyperglycemia; L97.529 Non-pressure chronic ulcer of other part of left foot with unspecified severity; E66.01 Morbid (severe) obesity due to excess calories; E11.42 Type 2 diabetes mellitus with diabetic polyneuropathy; E11.621 Type 2 diabetes mellitus with foot ulcer; I11.0 Hypertensive heart disease with heart failure; E78.5 Hyperlipidemia, unspecified; F17.200 Nicotine dependence, unspecified, uncomplicated; G40.909 Epilepsy, unspecified, not intractable, without status epilepticus; I25.10 Atherosclerotic heart disease of native coronary artery without angina pectoris; I25.2 Old myocardial infarction; J44.9 Chronic obstructive pulmonary disease, unspecified; M77.32 Calcaneal spur, left foot; Z79.4 Long term (current) use of insulin; Z79.899 Other long term (current) drug therapy; Z86.73 Personal history of transient ischemic attack (TIA), and cerebral infarction without residual deficits; Z88.0 Allergy status to penicillin; Z89.411 Acquired absence of right great toe; Z95.810 Presence of automatic (implantable) cardiac defibrillator; B95.61 Methicillin susceptible Staphylococcus aureus infection as the cause of diseases classified elsewhere; B95.4 Other streptococcus as the cause of diseases classified elsewhere
CPT/HCPCS: 36415; 71046; 78315; 80048; 80053; 80202; 82550; 82553; 83036; 83605; 83735; 83880; 84484; 85025; 85610; 85730; 87040; 87070; 87075; 87077; 87186; 87205; 88305; 88311; 93005; 94640; 94760; 96361; 96365; 96366; 96367; 96375; 96376; 99285

== ENCOUNTER 2017-12-24 19:33 | Emergency (ER) | payer MEDICARE, OTHER ==
[2017-12-24 19:42] LABS: Glucose,Whole Blood 366 mg/dL (75-99)
[2017-12-24 20:19] LABS: Anisocytosis Slight; Basophils % (A) 0 %; Eosinophils # (A) 0.6 k/uL (0-0.7); Eosinophils % (A) 5 %; HCT 34.2 % (34.0-46.0); HGB 9.9 gm/dL (11.4-16.0); Hypochromasia Marked; Lymphocytes # (A) 1.8 k/uL (1.0-4.8); Lymphocytes % (A) 16 %; MCH 21.2 pg (25.0-35.0); MCV 72.9 fL (80.0-100.0); Mean Platelet Volume 8.7; Microcytosis Moderate; Monocytes # (A) 0.4 k/uL (0-1.0); Monocytes % (A) 4 %; Neutrophils # (A) 8.7 k/uL (1.3-7.7); Neutrophils % (A) 74 %; Platelet Count 246 k/uL (150-450); Poikilocytosis Slight; RDW 16.9 % (11.5-15.5); WBC 11.8 k/uL (3.8-10.6)
[2017-12-24 20:35] LABS: Anion Gap 13 mmol/L; Blood Urea Nitrogen 16 mg/dL (7-17); Calcium 9.4 mg/dL (8.4-10.2); Carbon Dioxide 27 mmol/L (22-30); Chloride 96 mmol/L (98-107); Glucose 396 mg/dL (74-99); Potassium 4.5 mmol/L (3.5-5.1); Sodium 136 mmol/L (137-145)
[2017-12-24 21:19] LABS: Digoxin 1.1 ng/mL
[2017-12-24] MEDS ORDERED: SODIUM CHLORIDE 0.9% 2,000 ML IV ONE (21:39)
[2017-12-24] MEDS ORDERED: INSULIN REGULAR 100 UNIT/ML VIAL SQ STA (21:39)
[2017-12-24 22:51] LABS: Glucose,Whole Blood 316 mg/dL (75-99)
[2017-12-25] MEDS ORDERED: VANCOMYCIN IV PER PHARMACY 1 EACH MISC MISCELLANE PRN (00:20)
[2017-12-25] MEDS ORDERED: NALOXONE 0.4 MG/ML 1 ML VIAL IV PRN (00:21)
--- NOTE | 2017-12-25 00:21 | ED ---
General Adult HPI - General Chief complaint: Neuro Symptoms/Deficit Stated complaint: Possible CVA Time Seen by Provider: 12/24/17 19:40 Source: patient, family, EMS Mode of arrival: EMS Limitations: altered mental status - History of Present Illness Initial comments: This patient is a 42-year-old woman who presents with left foot complaints. She states that for the past hours today she has had a feeling like her left foot was swollen or heavy. She states that now it feels like she can't stop moving it. She does have a little bit of pain at the left great toe but states that this is been going on since she had amputation -: hour(s) Location: left, lower extremity Quality: aching Consistency: constant Improves with: medication Worsens with: none Associated Symptoms: denies other symptoms - Related Data Home Medications Medication Instructions Recorded Confirmed Carvedilol [Coreg] 25 mg PO BID 03/04/15 12/24/17 Spironolactone [Aldactone] 25 mg PO DAILY 03/04/15 12/24/17 Digoxin [Lanoxin] 250 mcg PO QAM 08/22/15 12/24/17 acetaZOLAMIDE [Diamox Sequels] 500 mg PO BID 12/03/16 12/24/17 Insulin Aspart [NovoLOG 20 unit SQ AC-TID 12/17/16 12/24/17 (formulary)] Albuterol Inhaler [Ventolin Hfa 2 puff INHALATION RT-Q6H PRN 08/07/17 12/24/17 Inhaler] Gabapentin [Neurontin] 600 mg PO BID 08/19/17 12/24/17 Sacubitril/Valsartan [Entresto 24 1 tab PO BID 12/15/17 12/24/17 mg-26 mg Tablet] Previous Rx's Medication Instructions Recorded DULoxetine HCL [Cymbalta] 30 mg PO DAILY #7 cap 08/22/17 Furosemide [Lasix] 60 mg PO BID@0900,1600 #60 tab 11/05/17 Insulin Glargine [Lantus] 50 unit SQ QAM #0 11/06/17 Cefuroxime Axetil [Ceftin] 500 mg PO BID #14 tab 12/19/17 Pantoprazole [Protonix] 40 mg PO AC-BRKFST 30 Days #30 12/20/17 tablet. Allergies Allergy/AdvReac Type Severity Reaction Status Date / Time Penicillins Allergy Rash/Hives Verified 12/24/17 19:35 Review of Systems ROS Statement: Those systems with pertinent positive or pertinent negative responses have been documented in the HPI. ROS Other: All systems not noted in ROS Statement are negative. Respiratory: Denies: cough, dyspnea, wheezes Cardiovascular: Denies: chest pain, palpitations, edema Gastrointestinal: Denies: abdominal pain, vomiting Genitourinary: Denies: dysuria, hematuria Musculoskeletal: Reports: as per HPI, arthralgia. Denies: back pain Skin: Denies: rash Neurological: Denies: weakness, numbness Past Medical History Past Medical History: Asthma, Coronary Artery Disease (CAD), Heart Failure, COPD , CVA/TIA, Diabetes Mellitus, Hypertension, Myocardial Infarction (DE), Pneumonia, Seizure Disorder Additional Past Medical History / Comment(s): MINOR DE 11/2013. CARDIOMYOPATHY. ASTHMA IN PAST, VARICOSE VEINS. Diabetic NEUROPATHY IN FEET. 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 PICC LINE PLACED IN AUGUST 2016 FOR OSTEOMYLITIS BOTH FEET, DR VILLAREAL MANAGED ANTIBIOTICS Last Myocardial Infarction Date:: 11/2013 History of Any Multi-Drug Resistant Organisms: MRSA, VRE Date of last positivie culture/infection: 2016 MDRO Source:: RIGHT FOOT Past Surgical History: Adenoidectomy, AICD, Section, Heart Catheterization, Orthopedic Surgery, Pacemaker, Tonsillectomy Additional Past Surgical History / Comment(s): AICD - [employer]. has pacemaker defibrillator, right great toe amputation 04/2016 Past Anesthesia/Blood Transfusion Reactions: No Reported Reaction Type of Cardiac Device: Permanent Pacemaker, AICD Device Placement Date:: 2011 Past Psychological History: Bipolar Smoking Status: Former smoker Past Alcohol Use History: None Reported Past Drug Use History: Marijuana - Past Family History Mother Family Medical History: Deep Vein Thrombosis (DVT) Additional Family Medical History / Comment(s): kidney failure. Father History Unknown: Yes Family Medical History: Cancer General Exam Limitations: altered mental status General appearance: alert, in no apparent distress Head exam: Present: atraumatic, normocephalic Eye exam: Present: normal appearance. Absent: scleral icterus, conjunctival injection ENT exam: Present: mucous membranes dry Neck exam: Present: normal inspection Respiratory exam: Present: normal lung sounds bilaterally. Absent: respiratory distress, wheezes, rales, rhonchi, stridor Cardiovascular Exam: Present: regular rate, normal rhythm, normal heart sounds. Absent: systolic murmur, diastolic murmur, rubs, gallop GI/Abdominal exam: Present: soft. Absent: tenderness, guarding, rebound Extremities exam: Present: other (The patient does have erythema and warmth to the left foot, at the level of the MTP joint. The first toe has been amputated and the incision is clean dry and intact) Back exam: Absent: CVA tenderness (R), CVA tenderness (L) Neurological exam: Present: alert, oriented X3, CN II-XII intact. Absent: motor sensory deficit Skin exam: Present: warm, dry, intact, erythema. Absent: rash, cyanosis, petechiae, pallor, mottled Course Vital Signs 12/24/17 19:34 Temperature 98.3 F Pulse Rate 72 Respiratory 16 Rate Blood Pressure 174/86 O2 Sat by Pulse 99 Oximetry Medical Decision Making - Medical Decision Making Patient is a 42-year-old diabetic lady with left foot infection following recent amputation. The patient states that she does follow with the wound care center and she is currently taking antibiotics. She admits to smoking earlier and then eating Smart is which elevated blood sugar. I explained that we're going to admit her to control her sugar and brought her antibiotic coverage but she is at this point refusing. We reviewed the risks of improperly treated foot infection and she is aware, given that she recently had amputation of what can occur. She states she has follow-up in a day and the wound care center. She will return should she have any fever, palpitations , chest symptoms , purulent drainage, increasing or spreading redness. - Lab Data Result diagrams: 12/24/17 19:35 12/24/17 19:35 Lab Results 12/24/17 12/24/17 12/24/17 Range/Units 19:35 19:35 19:39 WBC 11.8 H (3.8-10.6) k/uL RBC 4.70 (3.80-5.40) m/uL Hgb 9.9 L (11.4-16.0) gm/dL Hct 34.2 (34.0-46.0) % MCV 72.9 L (80.0-100.0) fL MCH 21.2 L (25.0-35.0) pg MCHC 29.0 L (31.0-37.0) g/dL RDW 16.9 H (11.5-15.5) % Plt Count 246 (150-450) k/uL Neutrophils % 74 % Lymphocytes % 16 % Monocytes % 4 % Eosinophils % 5 % Basophils % 0 % Neutrophils # 8.7 H (1.3-7.7) k/uL Lymphocytes # 1.8 (1.0-4.8) k/uL Monocytes # 0.4 (0-1.0) k/uL Eosinophils # 0.6 (0-0.7) k/uL Basophils # 0.0 (0-0.2) k/uL Hypochromasia Marked Poikilocytosis Slight Anisocytosis Slight Microcytosis Moderate Sodium 136 L (137-145) mmol/L Potassium 4.5 (3.5-5.1) mmol/L Chloride 96 L (98-107) mmol/L Carbon Dioxide 27 (22-30) mmol/L Anion Gap 13 mmol/L BUN 16 (7-17) mg/dL Creatinine 1.05 H (0.52-1.04) mg/dL Est GFR (MDRD) Af Amer >60 (>60 ml/min/1.73 sqM) Est GFR (MDRD) Non-Af 57 (>60 ml/min/1.73 sqM) Glucose 396 H (74-99) mg/dL POC Glucose (mg/dL) 366 H (75-99) mg/dL POC Glu [employer] Storm, Quiana Calcium 9.4 (8.4-10.2) mg/dL Digoxin 1.1 ng/mL 12/24/17 Range/Units 22:49 WBC (3.8-10.6) k/uL RBC (3.80-5.40) m/uL Hgb (11.4-16.0) gm/dL Hct (34.0-46.0) % MCV (80.0-100.0) fL MCH (25.0-35.0) pg MCHC (31.0-37.0) g/dL RDW (11.5-15.5) % Plt Count (150-450) k/uL Neutrophils % % Lymphocytes % % Monocytes % % Eosinophils % % Basophils % % Neutrophils # (1.3-7.7) k/uL Lymphocytes # (1.0-4.8) k/uL Monocytes # (0-1.0) k/uL Eosinophils # (0-0.7) k/uL Basophils # (0-0.2) k/uL Hypochromasia Poikilocytosis Anisocytosis Microcytosis Sodium (137-145) mmol/L Potassium (3.5-5.1) mmol/L Chloride (98-107) mmol/L Carbon Dioxide (22-30) mmol/L Anion Gap mmol/L BUN (7-17) mg/dL Creatinine (0.52-1.04) mg/dL Est GFR (MDRD) Af Amer (>60 ml/min/1.73 sqM) Est GFR (MDRD) Non-Af (>60 ml/min/1.73 sqM) Glucose (74-99) mg/dL POC Glucose (mg/dL) 316 H (75-99) mg/dL POC Glu [employer] Aleyda Bryson Calcium (8.4-10.2) mg/dL Digoxin ng/mL Disposition Clinical Impression: Infection of left foot, Hyperglycemia Disposition: HOME SELF-CARE Condition: Poor Referrals: Dylan Causey MD [Primary Care Provider] - 1-2 days
[2017-12-25] MEDS ORDERED: VANCOMYCIN 2,000 MG in SODIUM CHLORIDE 0.9% 500 ML IVPB STA (00:23)
[2017-12-25] MEDS ORDERED: ALBUTEROL INHALER 60 PUFF/8 GM INHALER INHALATION PRN (00:26)
[2017-12-25 01:31] VITALS: BP 168/84; PULSE 68; RESP 18; TEMP 98
[2017-12-25] MEDS ORDERED: INSULIN ASPART 100 UNIT/ML 1 ML 10 ML VIAL SQ SCH (07:30)
[2017-12-25] MEDS ORDERED: PANTOPRAZOLE 40 MG TABLET PO SCH (07:30)
[2017-12-25] MEDS ORDERED: SACUBITRIL/VALSARTAN 24 MG-26 MG TABLET PO SCH (09:00)
[2017-12-25] MEDS ORDERED: NON-FORMULARY DRUG (Gabapentin [Neurontin] 600 MG) PO SCH (09:00)
[2017-12-25] MEDS ORDERED: INSULIN GLARGINE 50 UNIT SQ SCH (09:00)
[2017-12-25] MEDS ORDERED: ACETAZOLAMIDE 500 MG PO SCH (09:00)
[2017-12-25] MEDS ORDERED: NON-FORMULARY DRUG (Cefuroxime Axetil [Ceftin] 500 MG) PO SCH (09:00)
[2017-12-25] MEDS ORDERED: FUROSEMIDE 20 MG TAB PO SCH (09:00)
[2017-12-25] MEDS ORDERED: SPIRONOLACTONE 25 MG TAB PO SCH (09:00)
[2017-12-25] MEDS ORDERED: NON-FORMULARY DRUG (Carvedilol [Coreg] 25 MG) PO SCH (09:00)
[2017-12-25] MEDS ORDERED: DIGOXIN 250 MCG TAB PO SCH (09:00)
== END 2017-12-25 01:31 | disposition home or self-care (01) ==
LOC: EC 19:33
DX: L08.9 Local infection of the skin and subcutaneous tissue, unspecified (principal); E11.65 Type 2 diabetes mellitus with hyperglycemia; I11.0 Hypertensive heart disease with heart failure; I50.9 Heart failure, unspecified; I25.10 Atherosclerotic heart disease of native coronary artery without angina pectoris; I25.2 Old myocardial infarction; E11.40 Type 2 diabetes mellitus with diabetic neuropathy, unspecified; G40.909 Epilepsy, unspecified, not intractable, without status epilepticus; Z86.73 Personal history of transient ischemic attack (TIA), and cerebral infarction without residual deficits; Z86.14 Personal history of Methicillin resistant Staphylococcus aureus infection; Z87.891 Personal history of nicotine dependence; Z53.20 Procedure and treatment not carried out because of patient's decision for unspecified reasons; Z88.0 Allergy status to penicillin; Z79.4 Long term (current) use of insulin; Z79.899 Other long term (current) drug therapy
CPT/HCPCS: 36415; 80048; 80162; 85025; 87040; 96360; 99284

== ENCOUNTER 2018-01-20 13:54 | Observation (INO) | payer MEDICARE, OTHER ==
[2018-01-19 11:22] VITALS: BMI 43.0
[~2018-01-20 13:54] MED LIST: DEXAMETHASONE SOD PHOSPHATE 10 MG/ML 1 ML VIAL IV ONE; MIDAZOLAM 2 MG/2 ML VIAL IV PRN; MORPHINE SULFATE 4 MG/ML SYRINGE IV PRN; ONDANSETRON 4 MG/2 ML VIAL IVP ONE; SCOPOLAMINE 1.5MG/72HR PATCH TRANSDERM ONE
[2018-01-20 14:31] LABS: Glucose,Whole Blood 187 mg/dL (75-99)
[2018-01-20] MEDS: LACTATED RINGERS 1,000 ML IV SCH (14:34)
[2018-01-20] MEDS ORDERED: LIDOCAINE 1% INJ 10MG/ML (20 ML MDV) ONE (18:38)
[2018-01-20] MEDS ORDERED: GLYCOPYRROLATE 0.2 MG/ML 2 ML VIAL ONE (18:38)
[2018-01-20] MEDS ORDERED: SUCCINYLCHOLINE CHLORIDE VIAL 200 MG/10 ML VIAL IV ONE (18:38)
[2018-01-20] MEDS ORDERED: MIDAZOLAM 2 MG/2 ML VIAL ONE (18:38)
[2018-01-20] MEDS ORDERED: ePHEDrine SULFATE/0.9% NACL/PF 50 MG/5 ML SYRINGE IV ONE (18:38)
[2018-01-20] MEDS ORDERED: ROCURONIUM BROMIDE 10 MG/ML 10 ML VIAL IV ONE (18:38)
[2018-01-20] MEDS ORDERED: NEOSTIGMINE 1 MG/ML 10 ML VIAL ONE (18:38)
[2018-01-20] MEDS ORDERED: LIDOCAINE 2%-EPI 1:100,000 20 ML VIAL ONE (18:38)
[2018-01-20] MEDS ORDERED: ROPIVACAINE 5 MG/ML 30 ML VIAL ONE (18:38)
[2018-01-20] MEDS ORDERED: fentaNYL (PF) 50 MCG/ML 2 ML AMP ONE (18:38)
[2018-01-20] MEDS ORDERED: PROPOFOL 10 MG/ML 20 ML VIAL IV ONE (18:38)
[2018-01-20] MEDS ORDERED: HYDROcodone/APAP 5-325MG 1 EACH TAB PO PRN (20:26)
[2018-01-20] MEDS ORDERED: HYDROmorphone 0.5 MG/0.5 ML SYRINGE IVP PRN (20:26)
[2018-01-20] MEDS ORDERED: MAGNESIUM HYDROXIDE 2,400 MG/10 ML CUP PO PRN (20:26)
[2018-01-20] MEDS ORDERED: HYDROmorphone 1 MG/ML 1 ML SYRINGE IVP PRN (20:26)
[2018-01-20] MEDS ORDERED: ONDANSETRON 4 MG/2 ML VIAL IVP PRN (20:26)
[2018-01-20] MEDS ORDERED: DIAZEPAM 5 MG TAB PO PRN (20:26)
[2018-01-20] MEDS ORDERED: NALOXONE 0.4 MG/ML 1 ML VIAL IV PRN (20:26)
--- NOTE | 2018-01-20 20:26 | P.OP ---
Date of Procedure: 01/20/18 Preoperative Diagnosis: 1. Open draining ulcer status post left first MTP disarticulation 2. Poorly controlled type 2 diabetes 3. History of multiple prior lower extremity amputations 4. Orbital obesity with a BMI of 43 5. Gastroc equinus contracture Postoperative Diagnosis: Same Procedure(s) Performed: 1. Left transmetatarsal amputation 2. Left gastrocnemius recession Anesthesia: GETA Surgeon: Emory Delong Estimated Blood Loss (ml): 150 IV fluids (ml): 400 Pathology: none sent Condition: stable Disposition: PACU Indications for Procedure: The patient is a poorly controlled, morbidly obese diabetic who is had multiple prior lower extremity amputations. The patient was previously seen by Dr. Hurd in the wound center who performed a partial first MTP disarticulation. He was unable to close the wound and she subsequently developed a chronically draining, infected wound. Dr. Hurd requested my assistance in performing a transmetatarsal amputation. He assured me she had vascular inflow to heal this level of amputation. I met with the patient preoperatively to discuss treatment options. I agreed to perform a transmetatarsal amputation and gastroc recession. We discussed potential risks and complications of surgery including but not limited to risk of anesthesia, risk of superficial infection, risk of deep infection, risk of delayed wound healing, risk of superficial wound necrosis, risk of spread of the infection proximally, risk of need for more proximal amputation including below-knee amputation, dissatisfaction with surgery, difficulty ambulating following surgery, Jc of assisted device and orthotics to ambulate, risk of DVT, risk of PE, and possibly loss of life or limb. The patient voiced her understanding of her high risk of having recurrent ulceration, infection and need for more proximal amputation. She provided her verbal and written consent to go forward with surgery. Description of Procedure: The patient was identified in preoperative holding and the correct left leg was marked with my initials. I reviewed the consent form with the patient and all of her questions were answered. The patient was then brought back to the operating room by anesthesia. She was positioned on the OR table. A tourniquet was applied to the proximal aspect the left thigh. The right leg was secured to the table with foam and tape. The left leg was then prepped and draped in standard sterile fashion. Prior to surgery timeout was performed identifying the correct patient, operative extremity, and procedure. The patient's leg was then elevated for 2 minutes and the tourniquet was inflated to 250 mmHg. I began by performing a gastrocnemius recession. A several centimeter longitudinal incision 1 thumb breath posterior to the tibia was marked out. Skin incision was made with a 15 blade scalpel. Dissection was carried down Through the subcutaneous tissue with tenotomy scissors. The superficial fascia was identified and incised longitudinally in line with the skin incision. I bluntly developed the interval between the gastrocnemius aponeurosis and superficial fascia. The sural nerve was seen to be adherent to the superficial fascia. A long handled knife was then used to release the gastrocnemius aponeurosis from lateral to medial under direct visualization. Upon releasing the gastrocnemius aponeurosis there is a significant increase in passive dorsiflexion with knee extended. The wound was then copiously irrigated. The deep subcu was reapproximated using 2-0 Vicryl. The skin was closed using 3-0 nylon horizontal mattress stitches. I then marked out incision for a transmetatarsal amputation. I fashioned as long a plantar flap as possible and made a dorsal fishmouth type incision over the middle metatarsals. Skin incision was made with a 15 blade scalpel down to bone over the dorsal aspect of the metatarsals. All vessels were controlled with electrocautery. I then marked out a level to cut each metatarsal taking into consideration the open draining wound to allow adequate coverage. The metatarsals were cut and a decreasing cascade from medial to lateral with a bevel from distal dorsal to plantar medial. The remaining soft tissue Connections were removed sharply and the forefoot was handed off to the back table to be sent as a specimen. The wound was then copiously irrigated. Bleeders were controlled with electrocautery. The plantar flap was then attached to the dorsal fascia using 0 Vicryl. The deep subcu was reapproximated using 2-0 Vicryl. The skin was closed using 3-0 nylon horizontal mattress stitches. I verified that all instrument sponge and sharp counts were correct. There was a tension-free closure of the wound. The skin margins appeared viable with no sign of infection. A sterile dressing consisting of Betadine soaked Adaptic, 4 x 4, and web roll was applied. A well- padded bulky Lizama splint with the ankle at neutral was placed. Plan: The patient is going to be admitted for IV antibiotics, internal medicine consultation, pain medication, physical therapy, and a wound/infectious disease consultation. She can discharge home from an orthopedic standpoint when her pain is controlled and she is cleared by all medical services.
[2018-01-20] MEDS ORDERED: ONDANSETRON 4 MG/2 ML VIAL IVP ONE (20:42)
[2018-01-20] MEDS ORDERED: LABETALOL 5 MG/ML VIAL MDV IVP ONE (20:58)
[2018-01-20] MEDS ORDERED: METOCLOPRAMIDE 5 MG/ML 2 ML VIAL IVP ONE (20:58)
[2018-01-20] MEDS ORDERED: LACTATED RINGERS 1,000 ML IV ONE (20:59)
[2018-01-20 21:35] LABS: Glucose,Whole Blood 324 mg/dL (75-99)
[2018-01-20 21:55] LABS: Anisocytosis Slight; Basophils % (A) 0 %; Eosinophils % (A) 0 %; HCT 29.3 % (34.0-46.0); Hypochromasia Marked; Lymphocytes # (A) 0.7 k/uL (1.0-4.8); Lymphocytes % (A) 7 %; MCH 20.9 pg (25.0-35.0); MCHC 28.1 g/dL (31.0-37.0); MCV 74.3 fL (80.0-100.0); Mean Platelet Volume 7.4; Microcytosis Moderate; Monocytes # (A) 0.2 k/uL (0-1.0); Monocytes % (A) 2 %; Neutrophils # (A) 9.4 k/uL (1.3-7.7); Neutrophils % (A) 91 %; Platelet Count 317 k/uL (150-450); RBC 3.95 m/uL (3.80-5.40); RDW 17.2 % (11.5-15.5); WBC 10.3 k/uL (3.8-10.6)
[2018-01-20 21:56] LABS: HGB 8.3 gm/dL (11.4-16.0)
[2018-01-20] MEDS ORDERED: TEMAZEPAM 15 MG CAP PO PRN (22:00)
[2018-01-20] MEDS: HYDROmorphone 0.5 MG/0.5 ML SYRINGE IVP PRN (23:02)
[2018-01-21] MEDS: SENNOSIDES-DOCUSATE SODIUM 1 EACH TAB PO SCH ×2 (00:02→20:21)
[2018-01-21] MEDS: HYDROmorphone 0.5 MG/0.5 ML SYRINGE IVP PRN ×5 (02:30→23:50)
[2018-01-21] MEDS: LACTATED RINGERS 1,000 ML IV SCH (04:09)
[2018-01-21] MEDS: HYDROcodone/APAP 5-325MG 1 EACH TAB PO PRN ×2 (04:13→09:38)
[2018-01-21 07:09] LABS: Glucose,Whole Blood 272 mg/dL (75-99)
[2018-01-21] MEDS: INSULIN DETEMIR 100 UNIT/ML 10 ML VIAL SQ SCH (08:47)
[2018-01-21] MEDS: INSULIN ASPART 100 UNIT/ML 1 ML 10 ML VIAL SQ SCH ×4 (08:47→17:35)
[2018-01-21] MEDS: MULTIVITAMINS, THERA 1 EACH TAB PO SCH (08:48)
[2018-01-21] MEDS ORDERED: ENOXAPARIN 30 MG/0.3 ML SYRINGE SQ SCH (09:00)
--- NOTE | 2018-01-21 09:36 | P.PN ---
Subjective Progress Note Date: 01/21/18 Principal diagnosis: Poorly controlled diabetes. Diabetic foot ulcer left foot. This is a 42-year-old female who is status post transmetatarsal amputation and gastroc recession. She is stable from an orthopedic standpoint. She has no new complaints or concerns today. Tear and glucose is 272 this morning. Objective - Vital Signs Vital signs: Vital Signs Temp 97.0 F L 01/21/18 08:39 Pulse 95 01/21/18 08:39 Resp 18 01/21/18 08:39 BP 130/72 01/21/18 08:39 Pulse Ox 94 L 01/21/18 08:39 Intake & Output 01/20/18 01/21/18 01/21/18 18:59 06:59 18:59 Intake Total 450 100 Output Total 850 Balance 450 -750 Weight 124.738 kg Intake: IV 450 100 Output: Urine 400 Emesis 300 Estimated Blood Loss 150 - Exam This is a 42-year-old female in no acute distress. She is alert and oriented 3. Her splint is intact. There is no drainage noted on the splint. She has full knee motion. - Labs CBC & Chem 7: 01/20/18 21:38 Labs: Abnormal Lab Results - Last 24 Hours (Table) 01/20/18 01/20/18 01/20/18 Range/Units 14:27 21:31 21:38 Hgb 8.3 L D (11.4-16.0) gm/dL Hct 29.3 L (34.0-46.0) % MCV 74.3 L (80.0-100.0) fL MCH 20.9 L (25.0-35.0) pg MCHC 28.1 L (31.0-37.0) g/dL RDW 17.2 H (11.5-15.5) % Neutrophils # 9.4 H (1.3-7.7) k/uL Lymphocytes # 0.7 L (1.0-4.8) k/uL POC Glucose (mg/dL) 187 H 324 H (75-99) mg/dL 01/21/18 Range/Units 07:07 Hgb (11.4-16.0) gm/dL Hct (34.0-46.0) % MCV (80.0-100.0) fL MCH (25.0-35.0) pg MCHC (31.0-37.0) g/dL RDW (11.5-15.5) % Neutrophils # (1.3-7.7) k/uL Lymphocytes # (1.0-4.8) k/uL POC Glucose (mg/dL) 272 H (75-99) mg/dL Assessment and Plan (1) Status post amputation Current Visit: Yes Status: Acute Code(s): Z89.9 - ACQUIRED ABSENCE OF LIMB, UNSPECIFIED SNOMED Code(s): 944885362 (2) Diabetes Current Visit: No Status: Acute Code(s): E11.9 - TYPE 2 DIABETES MELLITUS WITHOUT COMPLICATIONS SNOMED Code(s): 17539382 (3) Diabetic foot ulcer Current Visit: No Status: Acute Code(s): E11.621 - TYPE 2 DIABETES MELLITUS WITH FOOT ULCER SNOMED Code(s): 652406371 Plan: The clinical findings are discussed the patient. She is to maintain the current splint. Her sugars are poorly controlled at this time. We are waiting evaluation by internal medicine. We would like to transfer tending to internal medicine to manage her blood sugar and antibiotics. Dr. Alvarez is been consulted for antibiotic recommendations.
[2018-01-21 11:19] LABS: Glucose,Whole Blood 221 mg/dL (75-99)
[2018-01-21 11:59] LABS: Hemoglobin A1C 9.6 % (4.0-6.0)
[2018-01-21] MEDS: ONDANSETRON 4 MG/2 ML VIAL IVP PRN ×2 (12:58→19:19)
--- NOTE | 2018-01-21 13:44 | FL ---
EXAMINATION TYPE: FL guidance operating room, XR foot limited LT DATE OF EXAM: 01/20/2018 CLINICAL HISTORY: Left foot osteomyelitis. TECHNIQUE: Fluoroscopy. Limited intraoperative views left foot. COMPARISON: None. FINDINGS: Fluoroscopic guidance was provided during left foot amputation procedure performed by Dr. Delong. A total of 9 seconds of fluoroscopic time was utilized during the procedure and one spot i ntraoperative image is acquired. Single image acquired shows amputation defect down to proximal diaphysis level of all metatarsals. IMPRESSION: As Above.
[2018-01-21 17:21] LABS: Glucose,Whole Blood 105 mg/dL (75-99)
--- NOTE | 2018-01-21 18:29 | P.CONS ---
History of Present Illness - Reason for Consult Consult date: 01/21/18 Medical management Requesting physician: Emory Delong - Chief Complaint Foot surgery - History of Present Illness Consultation: This is a 42-year-old patient of Dr. Causey. Chronic stable medical conditions include COPD, diabetes, hypertension, hyperlipidemia, cardiomyopathy EF 30-35%. Patient does follow with Dr. Madrigal and has had previous surgeries on the toes for infection gangrene. In November of this month, Dr. Ko had carried out left big toe amputation because of nonhealing ulcer. Now the Patient has undergone left foot transmetatarsal amputation. Postoperatively patient had some nausea and vomiting. Pain is controlled and operative site. Has a dressing in place. GEN.: Tired EYES: None HEENT: None NECK: None RESPIRATORY: None CARDIOVASCULAR: None GASTROINTESTINAL: None GENITOURINARY: None MUSCULOSKELETAL: None LYMPHATICS: None HEMATOLOGICAL: None PSYCHIATRY: Some anxiety NEUROLOGICAL: None except numbness and tingling in the feet Past medical history: COPD, nonischemic congestive heart failure EF 35-40%, stroke, diabetes mellitus type 2, hypertension, seizure disorder, varicose veins, peripheral neuropathy, diabetic wounds previously in both the legs, seizures, some memory and residual speech loss. Past surgical history: Adenoidectomy, AICD with [employer], , cardiac catheterization, amputation of the toes Social history: Patient has 2 children home, son-in-law, bed cats at home. Patient stopped smoking in [place] last year. Smoked for many years. Has a medical marijuana card. No alcohol Family history: DVT and kidney failure VITAL SIGNS: 97, 89, 20, 109/68, 94% room air GENERAL: BMI 43.1, well built, sitting up, tired appearing. EYES: Pupils equal. Conjunctiva normal. HEENT: External appearance of nose and ears normal, oral cavity grossly normals , scanty scalp hair. NECK: JVD not raised; masses not palpable. HEART: First and second heart sounds are normal; no edema. LUNGS: Respiratory rate normal; decreased breath sounds. ABDOMEN: Soft, nontender, liver spleen not palpable, no masses palpable. LYMPHATICS: No lymph nodes palpable in the axilla and neck. PSYCH: Alert and oriented x3; mood and affect normal. NEUROLOGICAL: Cranial nerves grossly intact; no facial asymmetry, power and sensation grossly intact. MUSCULOSKELETAL: Left foot in a dressing below the knee. Scalp/chronic ulcer in the right foot Investigations: White count 10.3, hemoglobin 8.3, platelets 317, [id number], 272, 221 Assessment: -Left foot transmetatarsal amputation and left gastrocnemius recession -Peripheral neuropathies from diabetes -COPD in an ex-smoker -Diabetes mellitus type 2 chronically on insulin -Essential hypertension -Hyperlipidemia -Nonischemic, Chronic congestive heart failure from systolic dysfunction with EF 30-35%, with AICD in place, possibly from hypertension -Morbid obesity BMI 43.1 Plan: Patient was given Zofran. Home medications are resumed. Patient did receive her Lantus. Accu-Cheks and be closely followed. Care was discussed with the patient. Antibiotics per Dr. Alvarez. We'll have the dietitian see the patient Thank you Dr. Delong Past Medical History Past Medical History: Asthma, Heart Failure, COPD, CVA/TIA, Diabetes Mellitus, Hypertension, Myocardial Infarction ([place]), Pneumonia, Seizure Disorder Additional Past Medical History / Comment(s): CURRENT WOUND TO LEFT FOOT MINOR [place] 11/2013. CARDIOMYOPATHY. ASTHMA IN PAST, VARICOSE VEINS. Diabetic NEUROPATHY IN FEET. 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 PICC LINE PLACED IN AUGUST 2016 FOR OSTEOMYLITIS BOTH FEET, DR ALVAREZ MANAGED ANTIBIOTICS Last Myocardial Infarction Date:: 11/2013 History of Any Multi-Drug Resistant Organisms: MRSA, VRE Year Discovered:: 2017 MDRO Source:: RIGHT FOOT Past Surgical History: Adenoidectomy, AICD, Section, Heart Catheterization, Orthopedic Surgery, Pacemaker, Tonsillectomy Additional Past Surgical History / Comment(s): AICD - [employer]. has pacemaker defibrillator, right great toe amputation 04/2016, LT GREAT TOE Past Anesthesia/Blood Transfusion Reactions: No Reported Reaction Type of Cardiac Device: Permanent Pacemaker, AICD Device Placement Date:: 2011 Past Psychological History: Bipolar Additional Psychological History / Comment(s): Single. Lives in the family home with her 2 children, as well as her son-in-law and brother. There are 3 pet cats and a dog in the home. 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 No alcohol or IV drug use. Quit smoking in Oct 2017. Has medical marijuana card and smokes marijuana on a daily basis at bedtime for pain control.. Smoking Status: Light tobacco smoker Past Alcohol Use History: None Reported Additional Past Alcohol Use History / Comment(s): STARTED SMOKING AT AGE 12 SMOKES 4-5 CIG PER DAY Past Drug Use History: Marijuana Additional Drug Use History / Comment(s): medical marijuana card-USES MEDICAL MARIJUANA DAILY-INSTRUCTED TO REFRAIN FROM USE FOR 24 HOURS PRIOR TO PROCEDURE - Past Family History Mother Family Medical History: Deep Vein Thrombosis (DVT) Additional Family Medical History / Comment(s): kidney failure. Father History Unknown: Yes Family Medical History: Cancer Medications and Allergies Home Medications Medication Instructions Recorded Confirmed Type Carvedilol [Coreg] 25 mg PO BID 03/04/15 01/21/18 History Spironolactone [Aldactone] 25 mg PO DAILY 03/04/15 01/21/18 History Digoxin [Lanoxin] 250 mcg PO QAM 08/22/15 01/21/18 History acetaZOLAMIDE [Diamox Sequels] 500 mg PO BID 12/03/16 01/21/18 History Insulin Aspart [NovoLOG 20 unit SQ AC-TID 12/17/16 01/21/18 History (formulary)] Albuterol Inhaler [Ventolin Hfa 2 puff INHALATION RT-Q6H PRN 08/07/17 01/21/18 History Inhaler] Gabapentin [Neurontin] 600 mg PO BID 08/19/17 01/21/18 History DULoxetine HCL [Cymbalta] 30 mg PO DAILY #7 cap 08/22/17 01/21/18 Rx Furosemide [Lasix] 60 mg PO BID@0900,1600 #60 tab 11/05/17 01/21/18 Rx Insulin Glargine [Lantus] 50 unit SQ QAM #0 11/06/17 01/21/18 Rx Sacubitril/Valsartan [Entresto 24 1 tab PO BID 12/15/17 01/21/18 History mg-26 mg Tablet] Pantoprazole [Protonix] 40 mg PO AC-BRKFST 30 Days #30 12/20/17 01/21/18 Rx tablet. Sulfamethox-Tmp 800-160Mg [Bactrim 1 tab PO Q12HR 01/16/18 01/21/18 History DS 800-160 mg] Allergies Allergy/AdvReac Type Severity Reaction Status Date / Time Penicillins Allergy Rash/Hives Verified 01/19/18 10:54 Physical Exam Vitals: Vital Signs Temp Pulse Pulse Resp BP Pulse Ox 01/21/18 15:00 97.0 F L 89 20 119/68 94 L 01/21/18 08:39 97.0 F L 95 18 130/72 94 L 01/21/18 08:00 18 01/20/18 23:15 95 120/60 01/20/18 23:00 98 130/67 01/20/18 22:45 98 122/64 01/20/18 22:30 99 117/61 01/20/18 22:15 96 116/64 01/20/18 22:00 95 116/60 01/20/18 21:45 95 133/75 01/20/18 21:30 98 139/63 01/20/18 21:15 97.2 F L 95 16 142/64 97 01/20/18 20:59 98 16 150/70 93 L 01/20/18 20:52 103 H 16 93 L 01/20/18 20:45 104 H 16 154/77 92 L 01/20/18 20:30 107 H 16 159/67 94 L 01/20/18 20:21 97.6 F 105 H 16 165/73 94 L Intake and Output 01/21/18 01/21/18 01/21/18 06:59 14:59 22:59 Intake Total 118 Output Total 700 Balance -700 118 Intake: Oral 118 Output: Urine 400 Emesis 300 Other: Voiding Method Toilet # Voids 1 Results CBC & Chem 7: 01/20/18 21:38
[2018-01-21 20:20] LABS: Glucose,Whole Blood 135 mg/dL (75-99)
[2018-01-21] MEDS ORDERED: SCOPOLAMINE 1.5MG/72HR PATCH TRANSDERM SCH (22:00)
[2018-01-22] MEDS: ONDANSETRON 4 MG/2 ML VIAL IVP PRN ×3 (05:15→22:47)
[2018-01-22] MEDS: HYDROmorphone 0.5 MG/0.5 ML SYRINGE IVP PRN (05:15)
[2018-01-22] MEDS: LACTATED RINGERS 1,000 ML IV SCH ×2 (05:25→22:26)
[2018-01-22 07:00] LABS: Glucose,Whole Blood 178 mg/dL (75-99)
[2018-01-22] MEDS: INSULIN ASPART 100 UNIT/ML 1 ML 10 ML VIAL SQ SCH ×3 (08:51→17:38)
[2018-01-22] MEDS: ENOXAPARIN 40 MG/0.4 ML SYRINGE SQ SCH (08:51)
[2018-01-22] MEDS: INSULIN DETEMIR 100 UNIT/ML 10 ML VIAL SQ SCH (08:52)
--- NOTE | 2018-01-22 08:55 | P.PN ---
Subjective Progress Note Date: 01/22/18 This is a 42-year-old female who is status post transmetatarsal amputation and gastroc recession. Patient denies any pain today and states she is feeling well. Patient denies any new complaints today. Objective - Vital Signs Vital signs: Vital Signs Temp 97.4 F L 01/22/18 00:10 Pulse 93 01/22/18 00:10 Resp 17 01/22/18 00:10 BP 150/81 01/22/18 00:10 Pulse Ox 99 01/22/18 00:10 Intake & Output 01/21/18 01/22/18 01/22/18 18:59 06:59 18:59 Intake Total 118 640 0 Output Total 500 Balance 118 140 0 Intake: Intake, IV Titration 160 Amount Lactated Ringers 1,000 ml 160 @ 20 mls/hr IV .Q24H JAN Rx#:[id number] Oral 118 480 0 Output: Emesis 500 Other: Voiding Method Toilet # Voids 1 2 # Emeses 3 - Exam Patient is lying comfortably in bed in no acute distress. Patient is alert and oriented 3. On exam splint is clean, dry and intact. Patient has full range of motion of the left knee. - Labs CBC & Chem 7: 01/20/18 21:38 Labs: Abnormal Lab Results - Last 24 Hours (Table) 01/20/18 01/21/18 01/21/18 Range/Units 21:38 11:16 17:19 POC Glucose (mg/dL) 221 H 105 H (75-99) mg/dL Hemoglobin A1c 9.6 H (4.0-6.0) % 01/21/18 01/22/18 Range/Units 20:15 06:58 POC Glucose (mg/dL) 135 H 178 H (75-99) mg/dL Hemoglobin A1c (4.0-6.0) % Assessment and Plan (1) Status post amputation Current Visit: Yes Status: Acute Code(s): Z89.9 - ACQUIRED ABSENCE OF LIMB, UNSPECIFIED SNOMED Code(s): 187120304 (2) Diabetes Current Visit: No Status: Acute Code(s): E11.9 - TYPE 2 DIABETES MELLITUS WITHOUT COMPLICATIONS SNOMED Code(s): 84424287 (3) Diabetic foot ulcer Current Visit: No Status: Acute Code(s): E11.621 - TYPE 2 DIABETES MELLITUS WITH FOOT ULCER SNOMED Code(s): 756192983 Plan: #1. Keep splint intact. #2. Continue routine postoperative care and pain control. #3. Appreciated input from Dr. Alvarez. #4. Patient is a poorly controlled diabetic. Internal medicine to manage blood sugars. #5. Will continue to follow the patient closely.
[2018-01-22 11:34] LABS: Glucose,Whole Blood 168 mg/dL (75-99)
[2018-01-22] MEDS: MULTIVITAMINS, THERA 1 EACH TAB PO SCH (13:12)
[2018-01-22] MEDS: HYDROmorphone 2 MG TAB PO PRN ×4 (13:16→22:46)
[2018-01-22 17:03] LABS: Glucose,Whole Blood 86 mg/dL (75-99)
[2018-01-22 19:53] LABS: Glucose,Whole Blood 100 mg/dL (75-99)
[2018-01-22] MEDS: SENNOSIDES-DOCUSATE SODIUM 1 EACH TAB PO SCH (19:57)
[2018-01-22 21:30] LABS: Anisocytosis Slight; Basophils % (A) 0 %; Eosinophils # (A) 0.3 k/uL (0-0.7); Eosinophils % (A) 2 %; HCT 26.5 % (34.0-46.0); HGB 7.8 gm/dL (11.4-16.0); Hypochromasia Marked; Lymphocytes # (A) 1.6 k/uL (1.0-4.8); Lymphocytes % (A) 15 %; MCH 21.5 pg (25.0-35.0); MCHC 29.4 g/dL (31.0-37.0); MCV 73.1 fL (80.0-100.0); Mean Platelet Volume 6.8; Microcytosis Moderate; Monocytes # (A) 0.5 k/uL (0-1.0); Monocytes % (A) 5 %; Neutrophils # (A) 8.2 k/uL (1.3-7.7); Neutrophils % (A) 77 %; Platelet Count 261 k/uL (150-450); RBC 3.62 m/uL (3.80-5.40); RDW 17.6 % (11.5-15.5); WBC 10.7 k/uL (3.8-10.6)
--- NOTE | 2018-01-22 21:30 | P.PN ---
Progress Note - Text Progress Note Date: 01/22/18 Presenting complaint: Left foot surgery Interval history: This is a 42-year-old patient of Dr. Causey. Chronic stable medical conditions include COPD, diabetes, hypertension, hyperlipidemia, cardiomyopathy EF 30-35%. Patient does follow with Dr. Madrigal and has had previous surgeries on the toes for infection gangrene. In November of this month, Dr. Ko had carried out left big toe amputation because of nonhealing ulcer. Now the Patient has undergone left foot transmetatarsal amputation. Postoperatively patient had some nausea and vomiting. Pain is controlled and operative site. Has a dressing in place Today-patient has remained to have nausea. Denies any vomiting. Patient did keep some crackers down. Did better with the scopolamine patch. Pain is controlled. Breathing is stable. Review of systems: Was done for constitutional, cardiovascular, GI, pulmonary. relevant finding as above Current medications are reviewed: Includes Levemir, scopolamine patch, IV cefazolin VITAL SIGNS: 97.7, 113, 22, 149/78, 97% room air GENERAL: Laying in bed, tired appearing. EYES: Pupils equal. Conjunctiva normal. HEENT: External appearance of nose and ears normal, oral cavity grossly normals , scanty scalp hair. NECK: JVD not raised; masses not palpable. HEART: First and second heart sounds are normal; no edema. LUNGS: Respiratory rate normal; decreased breath sounds. ABDOMEN: Soft, nontender, liver spleen not palpable, no masses palpable. PSYCH: Alert and oriented x3; mood and affect normal. MUSCULOSKELETAL: Left foot in a dressing below the knee. Scalp/chronic ulcer in the right foot Investigations: White count 10.3, hemoglobin 8.3, Accu-Cheks noted Assessment: -Persistent nausea still present. Vomiting is improved. On scopolamine patch -Left foot transmetatarsal amputation and left gastrocnemius recession -Peripheral neuropathies from diabetes -COPD in an ex-smoker -Diabetes mellitus type 2 chronically on insulin -Essential hypertension -Hyperlipidemia -Nonischemic, Chronic congestive heart failure from systolic dysfunction with EF 30-35%, with AICD in place, possibly from hypertension -Morbid obesity BMI 43.1 Plan: We'll add IV fluids cautiously. Add Reglan before meals. Keep the scopolamine patch. Patient encouraged to increase her oral intake. We will follow
[2018-01-22] MEDS: METOCLOPRAMIDE 5 MG TAB PO SCH (22:47)
[2018-01-23] MEDS: HYDROmorphone 2 MG TAB PO PRN (05:26)
[2018-01-23 07:01] LABS: Glucose,Whole Blood 147 mg/dL (75-99)
[2018-01-23] MEDS: INSULIN ASPART 100 UNIT/ML 1 ML 10 ML VIAL SQ SCH ×3 (07:07→18:01)
[2018-01-23 07:22] LABS: Anisocytosis Slight; Basophils % (A) 0 %; Eosinophils # (A) 0.3 k/uL (0-0.7); Eosinophils % (A) 3 %; HCT 25.3 % (34.0-46.0); HGB 7.2 gm/dL (11.4-16.0); Hypochromasia Marked; Lymphocytes # (A) 1.1 k/uL (1.0-4.8); Lymphocytes % (A) 13 %; MCH 20.9 pg (25.0-35.0); MCHC 28.5 g/dL (31.0-37.0); MCV 73.4 fL (80.0-100.0); Mean Platelet Volume 6.5; Microcytosis Moderate; Monocytes # (A) 0.4 k/uL (0-1.0); Monocytes % (A) 5 %; Neutrophils # (A) 6.3 k/uL (1.3-7.7); Neutrophils % (A) 78 %; Platelet Count 277 k/uL (150-450); RBC 3.45 m/uL (3.80-5.40); RDW 16.8 % (11.5-15.5)
[2018-01-23 07:31] LABS: Anion Gap 10 mmol/L; Blood Urea Nitrogen 14 mg/dL (7-17); Calcium 8.7 mg/dL (8.4-10.2); Carbon Dioxide 27 mmol/L (22-30); Chloride 101 mmol/L (98-107); Glucose 133 mg/dL (74-99); Potassium 3.6 mmol/L (3.5-5.1); Sodium 138 mmol/L (137-145)
[2018-01-23] MEDS: ENOXAPARIN 40 MG/0.4 ML SYRINGE SQ SCH (08:52)
[2018-01-23] MEDS: LACTATED RINGERS 1,000 ML IV SCH ×2 (08:53→23:19)
[2018-01-23] MEDS: INSULIN DETEMIR 100 UNIT/ML 10 ML VIAL SQ SCH (11:30)
--- NOTE | 2018-01-23 11:42 | P.DS ---
Providers Date of admission: 01/21/18 07:01 Expected date of discharge: 01/23/18 Attending physician: Emory Delong Consults: 01/20/18 20:26 Consult Physician Routine Consulting Provider: Oscar Alvarez Consult Reason/Comments: abx recommendations following LE amp for chronic infection Do you want consulting provider notified?: Yes, Notify in am 01/21/18 13:20 Consult Physician Routine Consulting Provider: Kimo Tejeda Consult Reason/Comments: needs diabetic insulin and sliding scale started Do you want consulting provider notified?: Yes Primary care physician: Dylan Causey - Discharge Diagnosis(es) (1) Status post amputation Patient was admitted to the OR on 01/20/2018 to undergo Left transmetatarsal amputation and gastroc recession. She had failed conservative measures as an outpatient and desired to proceed with elective surgery after given informed consent she underwent the above procedure which she tolerated well without complication. Postoperative hospital course has remained without complication. On day of discharge she is afebrile, vital signs stable, labs within acceptable ranges, tolerating by mouth meds and diet, voiding without difficulty , positive flatus, denies abdominal pain or calf pain, pain is controlled on oral pain medication and has no new complaints. Wound is benign, neurovascular status is intact, calf is soft and nontender, abdomen soft and nontender. Review of systems is negative for numbness, tingling, fever, chills, chest pain , shortness breath, nausea, vomiting, dizziness, headaches, slurred speech or other. Current Visit: Yes Status: Acute Priority: Medium Procedures: Left transmetatarsal amputation, gastroc recession Patient Condition at Discharge: Good Plan - Discharge Summary Discharge Rx Participant: Yes New Discharge Prescriptions: New Aspirin 325 mg PO BID #60 tab Docusate [Colace] 100 mg PO BID #60 capsule HYDROcodone/APAP 5-325MG [Welcome 5-325] 1 tab PO Q4HR PRN #60 tab PRN Reason: Pain No Action Spironolactone [Aldactone] 25 mg PO DAILY Carvedilol [Coreg] 25 mg PO BID Digoxin [Lanoxin] 250 mcg PO QAM acetaZOLAMIDE [Diamox Sequels] 500 mg PO BID Insulin Aspart [NovoLOG (formulary)] 20 unit SQ AC-TID Albuterol Inhaler [Ventolin Hfa Inhaler] 2 puff INHALATION RT-Q6H PRN PRN Reason: Shortness Of Breath Gabapentin [Neurontin] 600 mg PO BID DULoxetine HCL [Cymbalta] 30 mg PO DAILY #7 cap Furosemide [Lasix] 60 mg PO BID@0900,1600 #60 tab Insulin Glargine [Lantus] 50 unit SQ QAM #0 Sacubitril/Valsartan [Entresto 24 mg-26 mg Tablet] 1 tab PO BID Pantoprazole [Protonix] 40 mg PO AC-BRKFST 30 Days #30 tablet. Sulfamethox-Tmp 800-160Mg [Bactrim DS 800-160 mg] 1 tab PO Q12HR Discharge Medication List Carvedilol [Coreg] 25 mg PO BID 03/04/15 [History] Spironolactone [Aldactone] 25 mg PO DAILY 03/04/15 [History] Digoxin [Lanoxin] 250 mcg PO QAM 08/22/15 [History] acetaZOLAMIDE [Diamox Sequels] 500 mg PO BID 12/03/16 [History] Insulin Aspart [NovoLOG (formulary)] 20 unit SQ AC-TID 12/17/16 [History] Albuterol Inhaler [Ventolin Hfa Inhaler] 2 puff INHALATION RT-Q6H PRN 08/07/17 [ History] Gabapentin [Neurontin] 600 mg PO BID 08/19/17 [History] DULoxetine HCL [Cymbalta] 30 mg PO DAILY #7 cap 08/22/17 [Rx] Furosemide [Lasix] 60 mg PO BID@0900,1600 #60 tab 11/05/17 [Rx] Insulin Glargine [Lantus] 50 unit SQ QAM #0 11/06/17 [Rx] Sacubitril/Valsartan [Entresto 24 mg-26 mg Tablet] 1 tab PO BID 12/15/17 [ History] Pantoprazole [Protonix] 40 mg PO AC-BRKFST 30 Days #30 tablet. 12/20/17 [Rx] Sulfamethox-Tmp 800-160Mg [Bactrim DS 800-160 mg] 1 tab PO Q12HR 01/16/18 [ History] Aspirin 325 mg PO BID #60 tab 01/23/18 [Rx] Docusate [Colace] 100 mg PO BID #60 capsule 01/23/18 [Rx] HYDROcodone/APAP 5-325MG [Welcome 5-325] 1 tab PO Q4HR PRN #60 tab 01/23/18 [Rx] Follow up Appointment(s)/Referral(s): Emory Delong MD [Medical Doctor] - 2 Weeks Activity/Diet/Wound Care/Special Instructions: Nonweightbearing left lower extremity Take meds as directed Maintain splint, keep clean and dry Elevate left lower extremity Follow-up with Dr. Delong in office Discharge Disposition: HOME SELF-CARE
[2018-01-23 11:46] LABS: Glucose,Whole Blood 248 mg/dL (75-99)
[2018-01-23] MEDS: MULTIVITAMINS, THERA 1 EACH TAB PO SCH (13:03)
[2018-01-23] MEDS: METOCLOPRAMIDE 5 MG TAB PO SCH ×2 (13:03→17:33)
[2018-01-23 16:56] LABS: Glucose,Whole Blood 79 mg/dL (75-99)
[2018-01-23] MEDS: HYDROcodone/APAP 5-325MG 1 EACH TAB PO PRN (17:36)
[2018-01-23 20:58] LABS: Glucose,Whole Blood 129 mg/dL (75-99)
[2018-01-23] MEDS: SENNOSIDES-DOCUSATE SODIUM 1 EACH TAB PO SCH (21:13)
[2018-01-23] MEDS: HYDROmorphone 4 MG TABLET PO PRN (22:14)
--- NOTE | 2018-01-23 22:32 | P.PN ---
Progress Note - Text Progress Note Date: 01/23/18 Presenting complaint: Left foot surgery Interval history: This is a 42-year-old patient of Dr. Causey. Chronic stable medical conditions include COPD, diabetes, hypertension, hyperlipidemia, cardiomyopathy EF 30-35%. Patient does follow with Dr. Madrigal and has had previous surgeries on the toes for infection gangrene. In November of this month, Dr. Ko had carried out left big toe amputation because of nonhealing ulcer. Now the Patient has undergone left foot transmetatarsal amputation. Postoperatively patient had some nausea and vomiting. Pain is controlled and operative site. Has a dressing in place Today-feeling better. No vomiting. Did tolerate a light diet. Reglan was started before meals. Some pain with left leg. Review of systems: Was done for constitutional, cardiovascular, GI, pulmonary. relevant finding as above Current medications are reviewed: Includes Levemir, scopolamine patch, IV cefazolin VITAL SIGNS: 98.5, 88, 14, 146/76, 94% room air GENERAL: Sitting up more perky today. EYES: Pupils equal. Conjunctiva normal. HEENT: External appearance of nose and ears normal, oral cavity grossly normals , scanty scalp hair. NECK: JVD not raised; masses not palpable. HEART: First and second heart sounds are normal; no edema. LUNGS: Respiratory rate normal; decreased breath sounds. ABDOMEN: Soft, nontender, liver spleen not palpable, no masses palpable. PSYCH: Alert and oriented x3; mood and affect normal. MUSCULOSKELETAL: Left foot in a dressing below the knee. Scalp/chronic ulcer in the right foot Investigations: White count 8, hemoglobin 7.2, potassium 3.6 Assessment: -Persistent nausea and Vomiting is improved. On scopolamine patch and Reglan -Left foot transmetatarsal amputation and left gastrocnemius recession -Peripheral neuropathies from diabetes -COPD in an ex-smoker -Diabetes mellitus type 2 chronically on insulin -Essential hypertension -Hyperlipidemia -Nonischemic, Chronic congestive heart failure from systolic dysfunction with EF 30-35%, with AICD in place, possibly from hypertension -Morbid obesity BMI 43.1 Plan: Patient doing better. Patient encouraged to improve her oral intake. Discharge planning is being coordinated. Care was discussed with the patient
[2018-01-24 01:52] VITALS: PULSE 86
[2018-01-24] MEDS: HYDROmorphone 4 MG TABLET PO PRN (03:00)
[2018-01-24 07:02] LABS: Glucose,Whole Blood 141 mg/dL (75-99)
[2018-01-24 07:21] LABS: Anion Gap 11 mmol/L; Blood Urea Nitrogen 10 mg/dL (7-17); Calcium 8.8 mg/dL (8.4-10.2); Carbon Dioxide 27 mmol/L (22-30); Chloride 102 mmol/L (98-107); Glucose 132 mg/dL (74-99); Potassium 3.4 mmol/L (3.5-5.1); Sodium 140 mmol/L (137-145)
[2018-01-24 09:29] VITALS: BP 141/69; RESP 16; TEMP 98.4
[2018-01-24] MEDS: ENOXAPARIN 40 MG/0.4 ML SYRINGE SQ SCH (09:30)
[2018-01-24] MEDS: METOCLOPRAMIDE 5 MG TAB PO SCH ×2 (09:30→12:04)
[2018-01-24] MEDS: INSULIN DETEMIR 100 UNIT/ML 10 ML VIAL SQ SCH (09:30)
[2018-01-24] MEDS: INSULIN ASPART 100 UNIT/ML 1 ML 10 ML VIAL SQ SCH ×2 (09:39→12:04)
[2018-01-24 11:37] LABS: Glucose,Whole Blood 87 mg/dL (75-99)
[2018-01-24] MEDS: MULTIVITAMINS, THERA 1 EACH TAB PO SCH (12:04)
[2018-01-24] MEDS: LACTATED RINGERS 1,000 ML IV SCH (12:49)
--- NOTE | 2018-01-24 19:15 | P.PN ---
Progress Note - Text Progress Note Date: 01/24/18 Presenting complaint: Left foot surgery Interval history: This is a 42-year-old patient of Dr. Causey. Chronic stable medical conditions include COPD, diabetes, hypertension, hyperlipidemia, cardiomyopathy EF 30-35%. Patient does follow with Dr. Madrigal and has had previous surgeries on the toes for infection gangrene. In November of this month, Dr. Ko had carried out left big toe amputation because of nonhealing ulcer. Now the Patient has undergone left foot transmetatarsal amputation. Postoperatively patient had some nausea and vomiting. Pain is controlled and operative site. Has a dressing in place Today-doing much better. Keeping her diet down. Keeping to get discharged. Pain control. No chest pain or shortness of breath. Review of systems: Was done for constitutional, cardiovascular, GI, pulmonary. relevant finding as above Current medications are reviewed: VITAL SIGNS: 98.4, 86, 16, 141/69, 95% room air GENERAL: Sitting up, comfortable. EYES: Pupils equal. Conjunctiva normal. HEENT: External appearance of nose and ears normal, oral cavity grossly normals , scanty scalp hair. NECK: JVD not raised; masses not palpable. HEART: First and second heart sounds are normal; no edema. LUNGS: Respiratory rate normal; decreased breath sounds. ABDOMEN: Soft, nontender, liver spleen not palpable, no masses palpable. PSYCH: Alert and oriented x3; mood and affect normal. MUSCULOSKELETAL: Left foot in a dressing below the knee. Scalp/chronic ulcer in the right foot Investigations: Potassium 3.4 Assessment: -Persistent nausea and Vomiting now resolved -Left foot transmetatarsal amputation and left gastrocnemius recession -Peripheral neuropathies from diabetes -COPD in an ex-smoker -Diabetes mellitus type 2 chronically on insulin -Essential hypertension -Hyperlipidemia -Nonischemic, Chronic congestive heart failure from systolic dysfunction with EF 30-35%, with AICD in place, possibly from hypertension -Morbid obesity BMI 43.1 Plan: Patient doing much better. Continue current medication treatment plan. To follow-up with a family doctor. Discharge antibiotics per Dr. Alvarez Thank you
== END 2018-01-24 14:27 | disposition home or self-care (01) ==
LOC: OR 13:54 → EDSTATUS 16:15 → 3SUR 21:24 → OR 01-21 07:01 → 3SUR 01-21 07:01
PROVIDERS: ADMIT Hospitalist; ATTEND Orthopaedic Surgery
DX: E11.69 Type 2 diabetes mellitus with other specified complication (principal); E11.621 Type 2 diabetes mellitus with foot ulcer; E11.42 Type 2 diabetes mellitus with diabetic polyneuropathy; M86.9 Osteomyelitis, unspecified; M24.575 Contracture, left foot; J44.9 Chronic obstructive pulmonary disease, unspecified; I11.0 Hypertensive heart disease with heart failure; E78.5 Hyperlipidemia, unspecified; I42.9 Cardiomyopathy, unspecified; I50.22 Chronic systolic (congestive) heart failure; E66.01 Morbid (severe) obesity due to excess calories; Z68.41 Body mass index [BMI] 40.0-44.9, adult; G40.909 Epilepsy, unspecified, not intractable, without status epilepticus; R47.9 Unspecified speech disturbances; F32.9 Major depressive disorder, single episode, unspecified; I69.311 Memory deficit following cerebral infarction; I83.90 Asymptomatic varicose veins of unspecified lower extremity; Z89.421 Acquired absence of other right toe(s); R11.2 Nausea with vomiting, unspecified; Z79.4 Long term (current) use of insulin; Z79.899 Other long term (current) drug therapy; Z88.0 Allergy status to penicillin; Z95.810 Presence of automatic (implantable) cardiac defibrillator; Z87.891 Personal history of nicotine dependence; I25.2 Old myocardial infarction; Z86.14 Personal history of Methicillin resistant Staphylococcus aureus infection; Z86.19 Personal history of other infectious and parasitic diseases; Z87.01 Personal history of pneumonia (recurrent); Z82.49 Family history of ischemic heart disease and other diseases of the circulatory system; Z83.3 Family history of diabetes mellitus
CPT/HCPCS: 28805; 27687; 97116; 97162; 81025; 80048 ×2; 85025 ×3; 88307; 88311; 83036; 73620; G0378 ×4; J2250; J0330; J1100; J2710; J2765; J0690 ×5; J2405 ×3; J2001; J1650 ×4; J3010; J2795; J2704; J1170 ×3

== ENCOUNTER 2018-02-18 06:52 | Inpatient (IN) | payer MEDICARE, OTHER ==
[2018-02-18] MEDS ORDERED: ACETAMINOPHEN TAB 500 MG TAB PO STA (07:21)
[2018-02-18] MEDS ORDERED: IBUPROFEN 600 MG TAB PO STA (07:21)
[2018-02-18] MEDS ORDERED: LEVOFLOXACIN 750MG-D5W PMX 750 MG in DEXTROSE/WATER 1 150ML.BAG IVPB STA (07:21)
--- NOTE | 2018-02-18 07:30 | ED ---
General Adult HPI - General Chief complaint: Recheck/Abnormal Lab/Rx Stated complaint: Possible infection post op/SOB Time Seen by Provider: 02/18/18 07:00 Source: patient, RN notes reviewed Mode of arrival: wheelchair Limitations: no limitations - History of Present Illness Initial comments: This is a 42-year-old female presents emergency Department past medical history significant for diabetes and continues to smoke. Patient has had a partial dictation of the left foot recently. Patient states she thinks that wound is looking worse. Patient states she started having a fever Tuesday night went to [facility] and eventually sent her home. Patient states she started spiking a fever again yesterday and throughout the night so she came back in the hospital. Patient also states that she is wheezing a lot but continues to smoke. Patient denies any significant cough or sputum production. Patient denies any nausea vomiting diarrhea. Patient states she was told that she had a urinary tract infection is why she is on Bactrim. Patient states her flu test yesterday was negative. Patient believes her wound is looking worse and is wondering if that is where the infection is coming from. - Related Data Home Medications Medication Instructions Recorded Confirmed Carvedilol [Coreg] 25 mg PO BID 03/04/15 02/13/18 Spironolactone [Aldactone] 25 mg PO DAILY 03/04/15 02/13/18 Digoxin [Lanoxin] 250 mcg PO QAM 08/22/15 02/13/18 acetaZOLAMIDE [Diamox Sequels] 500 mg PO BID 12/03/16 02/13/18 Insulin Aspart [NovoLOG 20 unit SQ AC-TID 12/17/16 02/13/18 (formulary)] Albuterol Inhaler [Ventolin Hfa 2 puff INHALATION RT-Q6H PRN 08/07/17 02/13/18 Inhaler] Gabapentin [Neurontin] 600 mg PO BID 08/19/17 02/13/18 Sacubitril/Valsartan [Entresto 24 1 tab PO BID 12/15/17 02/13/18 mg-26 mg Tablet] Sulfamethox-Tmp 800-160Mg [Bactrim 1 tab PO Q12HR 01/16/18 02/13/18 DS 800-160 mg] Aspirin EC [Ecotrin Low Dose] 81 mg PO DAILY 02/13/18 02/13/18 Previous Rx's Medication Instructions Recorded DULoxetine HCL [Cymbalta] 30 mg PO DAILY #7 cap 08/22/17 Furosemide [Lasix] 60 mg PO BID@0900,1600 #60 tab 11/05/17 Insulin Glargine [Lantus] 50 unit SQ QAM #0 11/06/17 Pantoprazole [Protonix] 40 mg PO AC-BRKFST 30 Days #30 12/20/17 tablet. Allergies Allergy/AdvReac Type Severity Reaction Status Date / Time Penicillins Allergy Rash/Hives Verified 02/18/18 07:02 Review of Systems ROS Statement: Those systems with pertinent positive or pertinent negative responses have been documented in the HPI. ROS Other: All systems not noted in ROS Statement are negative. Past Medical History Past Medical History: Asthma, Heart Failure, COPD, CVA/TIA, Diabetes Mellitus, Hypertension, Myocardial Infarction (SC), Pneumonia, Seizure Disorder, Seizure Disorder Additional Past Medical History / Comment(s): CURRENT WOUND TO LEFT FOOT MINOR SC 11/2013. CARDIOMYOPATHY. ASTHMA IN PAST, VARICOSE VEINS. Diabetic NEUROPATHY IN FEET. 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 PICC LINE PLACED IN AUGUST 2016 FOR OSTEOMYLITIS BOTH FEET, DR VILLAREAL MANAGED ANTIBIOTICS Last Myocardial Infarction Date:: 11/2013 History of Any Multi-Drug Resistant Organisms: MRSA, VRE Date of last positivie culture/infection: 2016 MDRO Source:: RIGHT FOOT Past Surgical History: Adenoidectomy, AICD, Section, Heart Catheterization, Orthopedic Surgery, Pacemaker, Tonsillectomy Additional Past Surgical History / Comment(s): AICD - [employer]. has pacemaker defibrillator, right great toe amputation 04/2016, LT GREAT TOE, left foot partial amputation Past Anesthesia/Blood Transfusion Reactions: No Reported Reaction Type of Cardiac Device: Permanent Pacemaker, AICD Device Placement Date:: 2011 Past Psychological History: Bipolar Smoking Status: Current every day smoker Past Alcohol Use History: None Reported Past Drug Use History: Marijuana - Past Family History Mother Family Medical History: Deep Vein Thrombosis (DVT) Additional Family Medical History / Comment(s): kidney failure. Father History Unknown: Yes Family Medical History: Cancer General Exam - General Exam Comments Initial Comments: GENERAL: Patient is well-developed and well-nourished. Patient is nontoxic and well- hydrated and is in mild distress. ENT: Neck is soft and supple. No significant lymphadenopathy is noted. Oropharynx is clear. Moist mucous membranes. EYES: The sclera were anicteric and conjunctiva were pink and moist. Extraocular movements were intact and pupils were equal round and reactive to light. Eyelids were unremarkable. PULMONARY: Patient is wheezing diffusely CARDIOVASCULAR: There is a regular rate and rhythm without any murmurs gallops or rubs. ABDOMEN: Soft and nontender with normal bowel sounds. SKIN: Patient appears to have had a distal metatarsal amputation. The wound looks fairly good except for the lateral aspect there is a slight opening measuring about a centimeter and a half in diameter there is a slight discharge which will be cultured. There is no streaking there is no redness around the wound. NEUROLOGIC: Patient is alert and oriented x3. Cranial nerves II through XII are grossly intact. Motor and sensory are also intact. Normal speech, volume and content. Symmetrical smile. MUSCULOSKELETAL: Normal extremities with adequate strength and full range of motion. No lower extremity swelling or edema. No calf tenderness. LYMPHATICS: No significant lymphadenopathy is noted PSYCHIATRIC: Normal psychiatric evaluation. Limitations: no limitations Course Vital Signs 02/18/18 02/18/18 02/18/18 06:58 07:19 08:36 Temperature 101.1 F H 102.7 F H Pulse Rate 144 H 128 H Respiratory 20 22 Rate Blood Pressure 165/77 122/68 O2 Sat by Pulse 96 95 Oximetry 02/18/18 02/18/18 02/18/18 08:45 08:58 09:28 Temperature 99.3 F Pulse Rate 130 H 125 H 115 H Respiratory 20 Rate Blood Pressure 120/57 O2 Sat by Pulse 96 Oximetry Medical Decision Making - Medical Decision Making EKG shows sinus tachycardia at 131 bpm SD interval 1:30 QRS is under 24 QT interval 322 QTC is 475. Patient's EKG shows no ST segment elevation. X-ray cannot rule out osteomyelitis out and because of the high white count and fever were going to treat the patient is a zoster mellitus admit the patient and do further studies as an inpatient. - Lab Data Result diagrams: 02/18/18 07:30 02/18/18 07:30 Lab Results 02/18/18 02/18/18 02/18/18 Range/Units 07:30 07:30 07:30 WBC 16.7 H (3.8-10.6) k/uL RBC 4.27 (3.80-5.40) m/uL Hgb 8.2 L (11.4-16.0) gm/dL Hct 28.1 L (34.0-46.0) % MCV 65.9 L D (80.0-100.0) fL MCH 19.3 L (25.0-35.0) pg MCHC 29.3 L (31.0-37.0) g/dL RDW 16.1 H (11.5-15.5) % Plt Count 221 (150-450) k/uL Neutrophils % (Manual) 92 % Lymphocytes % (Manual) 4 % Monocytes % (Manual) 4 % Neutrophils # (Manual) 15.36 H (1.3-7.7) k/uL Lymphocytes # (Manual) 0.67 L (1.0-4.8) k/uL Monocytes # (Manual) 0.67 (0-1.0) k/uL Nucleated RBCs 0 (0-0) /100 WBC Manual Slide Review Performed Hypochromasia Marked Poikilocytosis Slight Anisocytosis Slight Microcytosis Marked Sodium 129 L (137-145) mmol/L Potassium 4.2 (3.5-5.1) mmol/L Chloride 97 L (98-107) mmol/L Carbon Dioxide 17 L (22-30) mmol/L Anion Gap 15 mmol/L BUN 24 H (7-17) mg/dL Creatinine 1.10 H (0.52-1.04) mg/dL Est GFR (CKD-EPI)AfAm 71 (>60 ml/min/1.73 sqM) Est GFR (CKD-EPI)NonAf 61 (>60 ml/min/1.73 sqM) Glucose 350 H (74-99) mg/dL Plasma Lactic Acid Warren 1.0 (0.7-2.0) mmol/L Calcium 9.0 (8.4-10.2) mg/dL Total Bilirubin 0.5 (0.2-1.3) mg/dL AST 18 (14-36) U/L ALT 15 (9-52) U/L Alkaline Phosphatase 115 (38-126) U/L Total Protein 7.5 (6.3-8.2) g/dL Albumin 3.8 (3.5-5.0) g/dL Influenza Type A RNA (Not Detectd) Influenza Type B (PCR) (Not Detectd) 02/18/18 Range/Units 07:30 WBC (3.8-10.6) k/uL RBC (3.80-5.40) m/uL Hgb (11.4-16.0) gm/dL Hct (34.0-46.0) % MCV (80.0-100.0) fL MCH (25.0-35.0) pg MCHC (31.0-37.0) g/dL RDW (11.5-15.5) % Plt Count (150-450) k/uL Neutrophils % (Manual) % Lymphocytes % (Manual) % Monocytes % (Manual) % Neutrophils # (Manual) (1.3-7.7) k/uL Lymphocytes # (Manual) (1.0-4.8) k/uL Monocytes # (Manual) (0-1.0) k/uL Nucleated RBCs (0-0) /100 WBC Manual Slide Review Hypochromasia Poikilocytosis Anisocytosis Microcytosis Sodium (137-145) mmol/L Potassium (3.5-5.1) mmol/L Chloride (98-107) mmol/L Carbon Dioxide (22-30) mmol/L Anion Gap mmol/L BUN (7-17) mg/dL Creatinine (0.52-1.04) mg/dL Est GFR (CKD-EPI)AfAm (>60 ml/min/1.73 sqM) Est GFR (CKD-EPI)NonAf (>60 ml/min/1.73 sqM) Glucose (74-99) mg/dL Plasma Lactic Acid Warren (0.7-2.0) mmol/L Calcium (8.4-10.2) mg/dL Total Bilirubin (0.2-1.3) mg/dL AST (14-36) U/L ALT (9-52) U/L Alkaline Phosphatase (38-126) U/L Total Protein (6.3-8.2) g/dL Albumin (3.5-5.0) g/dL Influenza Type A RNA Not Detected (Not Detectd) Influenza Type B (PCR) Not Detected (Not Detectd) Disposition Clinical Impression: Acute osteomyelitis of metatarsal bone Disposition: ADMITTED IP TO THIS HOSP Referrals: Dylan Causey MD [Primary Care Provider] - 1-2 days Time of Disposition: 09:55
[2018-02-18] MEDS ORDERED: IPRATROPIUM-ALBUTEROL 3 ML NEB INHALATION STA (07:31)
[2018-02-18] MEDS: SODIUM CHLORIDE 0.9% 500 ML IV SCH ×2 (07:50→09:30)
[2018-02-18 08:07] LABS: Anisocytosis Slight; HCT 28.1 % (34.0-46.0); HGB 8.2 gm/dL (11.4-16.0); Hypochromasia Marked; MCH 19.3 pg (25.0-35.0); MCHC 29.3 g/dL (31.0-37.0); Microcytosis Marked; Platelet Count 221 k/uL (150-450); Poikilocytosis Slight; RBC 4.27 m/uL (3.80-5.40); RDW 16.1 % (11.5-15.5); WBC 16.7 k/uL (3.8-10.6)
[2018-02-18 08:08] LABS: MCV 65.9 fL (80.0-100.0)
[2018-02-18 08:11] LABS: Albumin 3.8 g/dL (3.5-5.0); Potassium 4.2 mmol/L (3.5-5.1); Total Bilirubin 0.5 mg/dL (0.2-1.3); Total Protein 7.5 g/dL (6.3-8.2)
[2018-02-18 08:47] LABS: Lymphocytes # (M) 0.67 k/uL (1.0-4.8); Monocytes # (M) 0.67 k/uL (0-1.0); Neutrophils # (M) 15.36 k/uL (1.3-7.7); Neutrophils % (M) 92 %; Nucleated Red Blood Cells 0 /100 WBC (0-0); Total Cells Counted 100
--- NOTE | 2018-02-18 09:12 | XR ---
EXAMINATION TYPE: XR foot complete LT , 3 VIEWS DATE OF EXAM ORDERED: 02/18/2018 HISTORY: Pain. COMPARISON: None. FINDINGS: There has been a forefoot amputation on the left. There is a soft tissue defect adjacent t o the lateral portion of the foot. There is some low attenuation in the residual fifth metatarsal. I' m uncertain whether this is postsurgical change or whether it reflects osteomyelitis. No other bony d estructive lesion is seen. There are calcaneal spurs. IMPRESSION: 1. STATUS POST LEFT FOREFOOT AMPUTATION. 2. SOFT TISSUE DEFECT. 3. I COULD NOT EXCLUDE EARLY OSTEOMYELITIS IN THE DISTAL ASPECT OF THE RESIDUAL FIFTH METATARSAL. 4. CALCANEAL SPURS.
--- NOTE | 2018-02-18 09:13 | XR ---
EXAMINATION TYPE: XR chest 2V DATE OF EXAM: 02/18/2018 HISTORY: Fever. REFERENCE: Previous study dated 12/15/2017. FINDINGS: There is a multilead pacing device in place on the left. The heart is mildly enlarged. The lungs are clear. Pleural spaces are clear. IMPRESSION: MILD CARDIOMEGALY.
[2018-02-18] MEDS ORDERED: SODIUM CHLORIDE 0.9% 1,000 ML IV ONE (09:55)
[2018-02-18] MEDS ORDERED: VANCOMYCIN IV PER PHARMACY 1 EACH MISC MISCELLANE PRN (09:59)
[2018-02-18] MEDS ORDERED: VANCOMYCIN 2,000 MG in SODIUM CHLORIDE 0.9% 500 ML IVPB STA (10:51)
[2018-02-18 11:40] LABS: INR 1.2 (<1.2); Partial Thromboplastin Time 24.4 sec (22.0-30.0); Prothrombin Time 11.1 sec (9.0-12.0)
[2018-02-18 11:49] LABS: Appearance,Urine Cloudy (Clear); Bacteria,Urine Occasional /hpf; Bilirubin,Urine Negative (Negative); Blood,Urine Small (Negative); Color,Urine Yellow; Glucose,Urine (UA) Trace (Negative); Ketones,Urine Negative (Negative); Leukocyte Esterase,Urine Large (Negative); Nitrite,Urine Negative (Negative); PH, Urine 5.5 (5.0-8.0); Protein,Urine 1+ (Negative); Squamous Epithelial Cell,Urine 5 /hpf (0-4); Urobilinogen,Urine <2.0 mg/dL (<2.0); WBC,Urine 40 /hpf (0-5)
[2018-02-18 12:47] LABS: Glucose,Whole Blood 406 mg/dL (75-99)
[2018-02-18] MEDS: INSULIN ASPART 100 UNIT/ML 1 ML 10 ML VIAL SQ SCH ×5 (13:00→17:29)
[2018-02-18] MEDS ORDERED: INSULIN DETEMIR 100 UNIT/ML 10 ML VIAL SQ SCH (14:30)
[2018-02-18] MEDS: SACUBITRIL/VALSARTAN 24 MG-26 MG TABLET PO SCH ×2 (16:08→22:26)
[2018-02-18] MEDS: GABAPENTIN 300 MG CAP PO SCH ×2 (16:08→22:25)
[2018-02-18] MEDS: CARVEDILOL 12.5 MG TAB PO SCH ×2 (16:08→17:07)
[2018-02-18] MEDS: ASPIRIN 81 MG PO SCH (16:08)
[2018-02-18] MEDS: PANTOPRAZOLE 40 MG TABLET PO SCH (16:08)
[2018-02-18] MEDS: DIGOXIN 250 MCG TAB PO SCH (16:08)
[2018-02-18] MEDS: acetaZOLAMIDE 250 MG TAB PO SCH ×2 (16:08→20:32)
[2018-02-18] MEDS: ENOXAPARIN 40 MG/0.4 ML SYRINGE SQ SCH (16:09)
[2018-02-18] MEDS ORDERED: MEPERIDINE 50 MG/ML SYRINGE IVP STA (16:18)
[2018-02-18 16:57] LABS: Glucose,Whole Blood 314 mg/dL (75-99)
--- NOTE | 2018-02-18 17:10 | P.CONS ---
History of Present Illness - Reason for Consult Consult date: 02/18/18 - Chief Complaint Fever and chills - History of Present Illness 42-year-old female who is known to the infectious disease service for many admissions as well as her care in the wound healing Center for her diabetic foot infections. She has difficulties with chronic high glucose with great difficulties controlling her blood sugars over the long-term. She's had multiple complications that involved amputation of toes of the right foot. More recently had the transmetatarsal amputation to the left foot is relatively and having difficulties the nonhealing ulceration to the lateral aspect of the dorsum of the foot. She now presents the emergency center with high-grade fever chills rigors and feeling very poorly. She has some discomfort of the left foot but in general just feels very poorly overall. She has not felt like this in many years. She is denying severe headache, denies to begin to respiratory symptoms she's not having an extensive amount of cough or sputum production, denies much abdominal pain and denies nausea or emesis, denies diarrhea, denies dysuria. Review of Systems Constitutional: Reports chills, Reports chronic pain, Reports fever and rigors Eyes: denies blurred vision, denies pain Ears, nose, mouth and throat: Denies headache, Denies sore throat Cardiovascular: Reports lightheadedness, Denies chest pain, Denies leg edema, Denies palpitations, Denies shortness of breath Respiratory: Reports cough, Denies cough with sputum, Denies dyspnea, Denies excessive sputum, Denies hemoptysis, Denies home oxygen Gastrointestinal: Reports nausea, Denies abdominal pain, Denies diarrhea, Denies vomiting Genitourinary: Denies dysuria, Denies hematuria, Denies urgency, Denies urinary frequency Musculoskeletal: Denies myalgias Musculoskeletal: left: foot pain Integumentary: Reports wounds, Denies pruritus, Denies rash Neurological: Denies numbness, Denies weakness Psychiatric: Denies anxiety, does have depression with many life stressors Endocrine: Chronic fatigue and weight gain Past Medical History Past Medical History: Asthma, Heart Failure, COPD, CVA/TIA, Diabetes Mellitus, Hypertension, Myocardial Infarction ([place]), Pneumonia, Seizure Disorder, Seizure Disorder Additional Past Medical History / Comment(s): CURRENT WOUND TO LEFT FOOT . amputations to ;eft toes in december 2017 . cardiomyopathy. asthma, varicose veins. Diabetic neuropathy in feet. 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 PICC LINE PLACED IN AUGUST 2016 FOR OSTEOMYLITIS BOTH FEET, DR VILLAREAL MANAGED ANTIBIOTICS Last Myocardial Infarction Date:: 11/2013 History of Any Multi-Drug Resistant Organisms: MRSA, VRE Year Discovered:: 2017 MDRO Source:: RIGHT FOOT Past Surgical History: Adenoidectomy, AICD, Section, Heart Catheterization, Orthopedic Surgery, Pacemaker, Tonsillectomy Additional Past Surgical History / Comment(s): AICD - [employer]. has pacemaker defibrillator, right great toe amputation 04/2016, LT GREAT TOE, left foot partial amputation Past Anesthesia/Blood Transfusion Reactions: Postoperative Nausea & Vomiting ( PONV) Type of Cardiac Device: Permanent Pacemaker, AICD Device Placement Date:: 2011 Past Psychological History: Bipolar Additional Psychological History / Comment(s): Single. Lives in the family home with her 2 children, as well as her son-in-law and brother. There are 3 pet cats and a dog in the home. 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 No alcohol or IV drug use. Quit smoking in Oct 2017. Has medical marijuana card and smokes marijuana on a daily basis at bedtime for pain control.. Smoking Status: Current every day smoker Past Alcohol Use History: None Reported Additional Past Alcohol Use History / Comment(s): STARTED SMOKING AT AGE 12 SMOKES 4-5 CIG PER DAY Past Drug Use History: Marijuana Additional Drug Use History / Comment(s): medical marijuana card-USES MEDICAL MARIJUANA DAILY - Past Family History Mother Family Medical History: Deep Vein Thrombosis (DVT) Additional Family Medical History / Comment(s): kidney failure. Father History Unknown: Yes Family Medical History: Cancer Medications and Allergies Home Medications and Allergies Comment(s): Current Medications Acetazolamide (Diamox) 500 mg PO BID [facility] Last Admin: 02/18/18 16:08 Dose: 500 mg Aspirin (Aspirin) 81 mg PO DAILY [facility] Last Admin: 02/18/18 16:08 Dose: 81 mg Carvedilol (Coreg) 25 mg PO BID-W/MEALS [facility] Last Admin: 02/18/18 16:08 Dose: 25 mg Digoxin (Lanoxin) 250 mcg PO QAM [facility] Last Admin: 02/18/18 16:08 Dose: 250 mcg Enoxaparin Sodium (Lovenox) 40 mg SQ DAILY [facility] Last Admin: 02/18/18 16:09 Dose: 40 mg Gabapentin (Neurontin) 600 mg PO BID [facility] Last Admin: 02/18/18 16:08 Dose: 600 mg Sodium Chloride (Saline 0.9%) 1,000 mls @ 75 mls/hr IV .[id number] ONE Stop: 02/18/18 23:14 Last Admin: 02/18/18 12:49 Dose: 75 mls/hr Daptomycin 500 mg/ Sodium (Chloride) 50 mls @ 100 mls/hr IV Q24H [facility] Meropenem 1 gm/ Sodium (Chloride) 100 mls @ 100 mls/hr IVPB Q8HR [facility] Insulin Aspart (Novolog) 0 unit SQ ACHS [facility] PRN Reason: Protocol Last Admin: 02/18/18 13:00 Dose: 12 unit Insulin Aspart (Novolog) 20 unit SQ AC-TID [facility] Insulin Detemir (Levemir) 50 unit SQ QAM [facility] Multivitamins (Theragran) 1 each PO DAILY@1200 [facility] Pantoprazole Sodium (Protonix) 40 mg PO AC-BRKFST [facility] Last Admin: 02/18/18 16:08 Dose: 40 mg Sacubitril/Valsartan (Entresto 24 Mg-26 Mg Tablet) 1 each PO BID [facility] Last Admin: 02/18/18 16:08 Dose: 1 each Spironolactone (Aldactone) 25 mg PO DAILY [facility] Home Medications Medication Instructions Recorded Confirmed Type Carvedilol [Coreg] 25 mg PO BID 03/04/15 02/18/18 History Spironolactone [Aldactone] 25 mg PO DAILY 03/04/15 02/18/18 History Digoxin [Lanoxin] 250 mcg PO QAM 08/22/15 02/18/18 History acetaZOLAMIDE [Diamox Sequels] 500 mg PO BID 12/03/16 02/18/18 History Insulin Aspart [NovoLOG 20 unit SQ AC-TID 12/17/16 02/18/18 History (formulary)] Albuterol Inhaler [Ventolin Hfa 2 puff INHALATION RT-Q6H PRN 08/07/17 02/18/18 History Inhaler] Gabapentin [Neurontin] 600 mg PO BID 08/19/17 02/18/18 History DULoxetine HCL [Cymbalta] 30 mg PO DAILY #7 cap 08/22/17 02/18/18 Rx Furosemide [Lasix] 60 mg PO BID@0900,1600 #60 tab 11/05/17 02/18/18 Rx Insulin Glargine [Lantus] 50 unit SQ QAM #0 11/06/17 02/18/18 Rx Sacubitril/Valsartan [Entresto 24 1 tab PO BID 12/15/17 02/18/18 History mg-26 mg Tablet] Pantoprazole [Protonix] 40 mg PO AC-BRKFST 30 Days #30 12/20/17 02/18/18 Rx tablet. Aspirin EC [Ecotrin Low Dose] 81 mg PO DAILY 02/13/18 02/18/18 History Allergies Allergy/AdvReac Type Severity Reaction Status Date / Time Penicillins Allergy Rash/Hives Verified 02/18/18 11:01 Physical Exam Vitals: Vital Signs Temp Pulse Pulse Resp BP BP Pulse Ox 02/18/18 15:24 98.9 F 68 16 178/84 96 02/18/18 14:51 98.4 F 105 H 16 139/65 98 02/18/18 10:00 114 H 20 110/57 97 02/18/18 09:28 99.3 F 115 H 20 120/57 96 02/18/18 08:58 125 H 02/18/18 08:45 130 H 02/18/18 08:36 128 H 22 122/68 95 02/18/18 07:19 102.7 F H 02/18/18 06:58 101.1 F H 144 H 20 165/77 96 Intake and Output 02/18/18 02/18/18 02/18/18 06:59 14:59 22:59 Other: Weight 122.47 kg 42-year-old female who appears older than her stated age. She does have difficulty with hair loss. HEENT: Anicteric conjunctiva are pink and moist nasal mucosa grossly intact without significant lesions, there is no thrush. Neck: The neck is supple without significant lymphadenopathy or thyromegaly. Lungs: They're symmetrical air entry, expiratory wheezes are scattered throughout, no dullness or egophony, Heart: Regular rate and rhythm with an audible S1-S2, no S3 soft S4. There is no significant murmur click or rub, PMI was nondisplaced. Abdomen: Obese, Positive bowel sounds soft and nontender without palpable masses or organomegaly. There was no guarding or rebound. Extremities: The upper extremities have excellent pulses they are symmetric, no significant petechiae or telangiectasia. No splinter hemorrhages were noted. The right lower extremity reveals evidence of no significant edema. Evidence of the toe amputation. Left lower extremity shows evidence of the recent transmetatarsal amputation, there is evidence of an open ulceration on the dorsum and lateral aspect of the foot. Measuring at 1 x 2.2 x 0.3 cm with some significant slough at the base Neuro: Awake alert oriented to person place and time. There are no acute new gross focal sensory motor deficits. Results CBC & Chem 7: 02/18/18 07:30 02/18/18 07:30 Labs: Abnormal Lab Results - Last 24 Hours (Table) 02/18/18 02/18/18 02/18/18 Range/Units 07:30 07:30 10:15 WBC 16.7 H (3.8-10.6) k/uL Hgb 8.2 L (11.4-16.0) gm/dL Hct 28.1 L (34.0-46.0) % MCV 65.9 L D (80.0-100.0) fL MCH 19.3 L (25.0-35.0) pg MCHC 29.3 L (31.0-37.0) g/dL RDW 16.1 H (11.5-15.5) % Neutrophils # (Manual) 15.36 H (1.3-7.7) k/uL Lymphocytes # (Manual) 0.67 L (1.0-4.8) k/uL INR (<1.2) Sodium 129 L (137-145) mmol/L Chloride 97 L (98-107) mmol/L Carbon Dioxide 17 L (22-30) mmol/L BUN 24 H (7-17) mg/dL Creatinine 1.10 H (0.52-1.04) mg/dL Glucose 350 H (74-99) mg/dL POC Glucose (mg/dL) (75-99) mg/dL Urine Appearance Cloudy H (Clear) Urine Protein 1+ H (Negative) Urine Glucose (UA) Trace H (Negative) Urine Blood Small H (Negative) Ur Leukocyte Esterase Large H (Negative) Urine WBC 40 H (0-5) /hpf Ur Squamous Epith Cells 5 H (0-4) /hpf Urine Bacteria Occasional H (None) /hpf 02/18/18 02/18/18 02/18/18 Range/Units 11:01 12:44 16:50 WBC (3.8-10.6) k/uL Hgb (11.4-16.0) gm/dL Hct (34.0-46.0) % MCV (80.0-100.0) fL MCH (25.0-35.0) pg MCHC (31.0-37.0) g/dL RDW (11.5-15.5) % Neutrophils # (Manual) (1.3-7.7) k/uL Lymphocytes # (Manual) (1.0-4.8) k/uL INR 1.2 H (<1.2) Sodium (137-145) mmol/L Chloride (98-107) mmol/L Carbon Dioxide (22-30) mmol/L BUN (7-17) mg/dL Creatinine (0.52-1.04) mg/dL Glucose (74-99) mg/dL POC Glucose (mg/dL) 406 H 314 H (75-99) mg/dL Urine Appearance (Clear) Urine Protein (Negative) Urine Glucose (UA) (Negative) Urine Blood (Negative) Ur Leukocyte Esterase (Negative) Urine WBC (0-5) /hpf Ur Squamous Epith Cells (0-4) /hpf Urine Bacteria (None) /hpf Microbiology - Last 24 Hours (Table) 02/18/18 07:30 Wound Culture - Preliminary Foot - Left Laboratory Results WBC 16.7 k/uL (3.8-10.6) H 02/18/18 07:30 RBC 4.27 m/uL (3.80-5.40) 02/18/18 07:30 Hgb 8.2 gm/dL (11.4-16.0) L 02/18/18 07:30 Hct 28.1 % (34.0-46.0) L 02/18/18 07:30 MCV 65.9 fL (80.0-100.0) L D 02/18/18 07:30 MCH 19.3 pg (25.0-35.0) L 02/18/18 07:30 MCHC 29.3 g/dL (31.0-37.0) L 02/18/18 07:30 RDW 16.1 % (11.5-15.5) H 02/18/18 07:30 Plt Count 221 k/uL (150-450) 02/18/18 07:30 Neutrophils % (Manual) 92 % 02/18/18 07:30 Lymphocytes % (Manual) 4 % 02/18/18 07:30 Monocytes % (Manual) 4 % 02/18/18 07:30 Neutrophils # (Manual) 15.36 k/uL (1.3-7.7) H 02/18/18 07:30 Lymphocytes # (Manual) 0.67 k/uL (1.0-4.8) L 02/18/18 07:30 Monocytes # (Manual) 0.67 k/uL (0-1.0) 02/18/18 07:30 Nucleated RBCs 0 /100 WBC (0-0) 02/18/18 07:30 Manual Slide Review Performed 02/18/18 07:30 Hypochromasia Marked 02/18/18 07:30 Poikilocytosis Slight 02/18/18 07:30 Anisocytosis Slight 02/18/18 07:30 Microcytosis Marked 02/18/18 07:30 PT 11.1 sec (9.0-12.0) 02/18/18 11:01 INR 1.2 (<1.2) H 02/18/18 11:01 APTT 24.4 sec (22.0-30.0) 02/18/18 11:01 Sodium 129 mmol/L (137-145) L 02/18/18 07:30 Potassium 4.2 mmol/L (3.5-5.1) 02/18/18 07:30 Chloride 97 mmol/L (98-107) L 02/18/18 07:30 Carbon Dioxide 17 mmol/L (22-30) L 02/18/18 07:30 Anion Gap 15 mmol/L 02/18/18 07:30 BUN 24 mg/dL (7-17) H 02/18/18 07:30 Creatinine 1.10 mg/dL (0.52-1.04) H 02/18/18 07:30 Est GFR (CKD-EPI)AfAm 71 (>60 ml/min/1.73 sqM) 02/18/18 07:30 Est GFR (CKD-EPI)NonAf 61 (>60 ml/min/1.73 sqM) 02/18/18 07:30 Glucose 350 mg/dL (74-99) H 02/18/18 07:30 POC Glucose (mg/dL) 314 mg/dL (75-99) H 02/18/18 16:50 POC Glu [employer] Detailer ID 02/18/18 16:50 Plasma Lactic Acid [place] 1.0 mmol/L (0.7-2.0) 02/18/18 07:30 Calcium 9.0 mg/dL (8.4-10.2) 02/18/18 07:30 Total Bilirubin 0.5 mg/dL (0.2-1.3) 02/18/18 07:30 AST 18 U/L (14-36) 02/18/18 07:30 ALT 15 U/L (9-52) 02/18/18 07:30 Alkaline Phosphatase 115 U/L (38-126) 02/18/18 07:30 Total Protein 7.5 g/dL (6.3-8.2) 02/18/18 07:30 Albumin 3.8 g/dL (3.5-5.0) 02/18/18 07:30 Urine Color Yellow 02/18/18 10:15 Urine Appearance Cloudy (Clear) H 02/18/18 10:15 Urine pH 5.5 (5.0-8.0) 02/18/18 10:15 Ur Specific [place] 1.010 (1.001-1.035) 02/18/18 10:15 Urine Protein 1+ (Negative) H 02/18/18 10:15 Urine Glucose (UA) Trace (Negative) H 02/18/18 10:15 Urine Ketones Negative (Negative) 02/18/18 10:15 Urine Blood Small (Negative) H 02/18/18 10:15 Urine Nitrite Negative (Negative) 02/18/18 10:15 Urine Bilirubin Negative (Negative) 02/18/18 10:15 Urine Urobilinogen <2.0 mg/dL (<2.0) 02/18/18 10:15 Ur Leukocyte Esterase Large (Negative) H 02/18/18 10:15 Urine WBC 40 /hpf (0-5) H 02/18/18 10:15 Ur Squamous Epith Cells 5 /hpf (0-4) H 02/18/18 10:15 Urine Bacteria Occasional /hpf (None) H 02/18/18 10:15 Influenza Type A RNA Not Detected (Not Detectd) 02/18/18 07:30 Influenza Type B (PCR) Not Detected (Not Detectd) 02/18/18 07:30 Microbiology 02/18/18 07:30 Foot - Left Wound Culture - Preliminary Assessment and Plan (1) Diabetic ulcer of foot associated with type 2 diabetes mellitus, with necrosis of bone Narrative/Plan: 42-year-old woman presents to the hospital today for high-grade fevers chills or rigors and feeling very poorly overall. The patient has been following the wound healing Center regarding the recent transmetatarsal amputation to her left foot. She was having some difficulties with ongoing ulceration. She has a ulceration the dorsum of the foot near the transmetatarsal amputation site. She is evidence of some swelling erythema and some drainage from that site. Antibiotic therapy will be added with meropenem and vancomycin basilar prior cultures and her penicillin ALLERGY. The patient appears to be having sepsis at this point in time and is having chills and rigors. Some Demerol will be given to see if he can terminate the rigors because she is quite miserable. We' ll do blood cultures are in process. She has significant leukocytosis related to the current infectious process. She has chronic noncompliance with her diabetes care with last A1c being 9.6 which actually was improved from 11 in the past. Local wound care with therahoney is requested. Elevate the limb while at rest. Cultures without defined course of antibiotic therapy. She normally sees vascular surgery and they will also come by for consult does not appear to need an acute surgical intervention at this time. Current Visit: No Status: Acute Code(s): E11.621 - TYPE 2 DIABETES MELLITUS WITH FOOT ULCER; L97.504 - NON-PRS CHRONIC ULCER OTH PRT UNSP FOOT W NECROSIS OF BONE SNOMED Code(s): 6736280629417 (2) Uncontrolled type 2 diabetes mellitus without complication, with long-term current use of insulin Current Visit: Yes Status: Acute Code(s): E11.65 - TYPE 2 DIABETES MELLITUS WITH HYPERGLYCEMIA; Z79.4 - USP (CURRENT) USE OF INSULIN SNOMED Code(s) : 410785526 (3) Leukocytosis Current Visit: Yes Status: Acute Code(s): D72.829 - ELEVATED WHITE BLOOD CELL COUNT, UNSPECIFIED SNOMED Code(s): 170607462 (4) Anemia Current Visit: Yes Status: Acute Code(s): D64.9 - ANEMIA, UNSPECIFIED SNOMED Code(s): 208263256
[2018-02-18] MEDS: MEROPENEM 1 GM in SODIUM CHLORIDE 0.9% 100 ML IVPB SCH (17:15)
--- NOTE | 2018-02-18 17:17 | HP ---
HISTORY AND PHYSICAL DATE OF ADMISSION: 02/18/2018 PRESENT COMPLAINT: Fever, chills. HISTORY OF PRESENTING COMPLAINT: This is a 42-year-old patient of Dr. Vitale with a rather extensive medical history. Chronic stable medical conditions include COPD, diabetes, essential hypertension, hyperlipidemia, cardiomyopathy, EF of 30% to 35%. Patient was in the hospital in December and underwent a left foot transmetatarsal amputation by Dr. Delong. Patient for the last few days noticed increasing pain, discomfort in the left foot stump and had some drainage, started having some fever, chills at home, not feeling well, tired, run down and family decided to bring her down to the ER. Postoperatively patient had seen Dr. Hurd and Dr. Delong. REVIEW OF SYSTEMS: CONSTITUTIONAL: Fever, chills, weak, tired. HEENT: None. RESPIRATORY: Occasional cough. CARDIOVASCULAR: None. GASTROINTESTINAL: None. GENITOURINARY: None. MUSCULOSKELETAL: As above. DERMATOLOGICAL: As above. LYMPHATICS: None. PSYCHIATRY: Anxiety. NEUROLOGICAL: Numbness and tingling in the feet. PAST MEDICAL HISTORY: COPD, nonischemic congestive heart failure, EF 35% to 40%, stroke, diabetes mellitus type 2, hypertension, seizure disorder, varicose veins, peripheral neuropathy, diabetic wounds, seizures, some memory and residual speech loss. PAST SURGICAL HISTORY: Adenoidectomy, AICD with [employer], , cardiac catheterization, left foot transmetatarsal amputation. SOCIAL HISTORY: Patient has 2 children at home, son-in-law, cats. Patient stopped smoking in October of 2017, smoked for several years. Has a medical marijuana card. Denies alcohol. FAMILY HISTORY: DVT and kidney failure. HOME MEDICATIONS: 1. Diamox 500 mg p.o. b.i.d. 2. Aldactone 25 mg p.o. daily. 3. Entresto 1 tablet p.o. b.i.d. 4. Protonix 40 mg breakfast. 5. Lantus 50 units subcu in the morning. 6. NovoLog 20 units a.c. t.i.d. 7. Neurontin 600 mg b.i.d. 8. Lasix 60 mg b.i.d. 9. Digoxin 250 mcg p.o. daily. 10.Cymbalta 30 mg p.o. daily. 11.Coreg 25 p.o. b.i.d. 12.Aspirin 81 mg p.o. daily. 13.Ventolin HFA 2 puffs q.6 p.r.n. ALLERGIES: PENICILLIN. PHYSICAL EXAMINATION: Vital signs in the ER, temperature 102.7, pulse 120, respiratory rate 22, blood pressure 122/68, pulse ox 95% on 2 L. GENERAL APPEARANCE: Well built, BMI over 40. Lying in bed, very tired-appearing. EYES: Pupils equal, conjunctivae normal. HEENT: External appearance of nose and ears normal, oral cavity dry. Decreased scalp hair. NECK: JVD not raised. Mass not palpable. Respiratory effort normal. LUNGS: Decreased breath sounds. CARDIOVASCULAR: First and second sounds are normal, no edema. ABDOMEN: Soft, nontender. Liver and spleen not palpable. LYMPHATIC: No lymph nodes palpable in neck or axillae. PSYCHIATRY: Alert and oriented x3. Mood and affect slightly anxious-appearing. NEUROLOGICAL: Cranial nerves grossly intact. Power and sensation grossly intact, decreased distally. MUSCULOSKELETAL: Patient has got stitches on the left foot stump with an area of breakdown and bogginess on the lateral side and some area of redness extending proximally from the area of the stitches. INVESTIGATIONS: White count 6.7, hemoglobin 8.2, platelets 221, increased neutrophils. Sodium 129, potassium 4.2, BUN 24, creatinine 1.10, bicarb 17, glucose 350. Patient's BUN and creatinine was 10 and 0.68 on 01/24/2018. ASSESSMENT: 1. Possible abscess in the stump of the left foot transmetatarsal amputation, causing sepsis, present on admission. 2. Acute renal failure, likely prerenal, nonoliguric, present on admission. 3. Hyponatremia, suspect hypoosmolar. 4. Peripheral neuropathy from diabetes. 5. Chronic obstructive pulmonary disease in an ex-smoker. 6. Diabetes mellitus type 2, chronically on insulin. 7. Essential hypertension. 8. Hyperlipidemia. 9. Nonischemic congestive heart failure from systolic dysfunction, ejection fraction 30% to 35%. 10.AICD. 11.Morbid obesity, body mass index of 43.1. 12.Chronic normocytic anemia. PLAN: Patient's home medications are resumed. Patient is on IV meropenem and daptomycin. Also getting normal saline. If patient's sugars do not come down, will proceed to put the patient on insulin drip. Will also add bicarb. Consultation made to Dr. Delong from Orthopedics, Dr. Alvarez, Infectious Disease and Dr. Hurd from Vascular Surgery. Overall prognosis is guarded. MMODL / IJN: [id number] /
[2018-02-18] MEDS ORDERED: SCOPOLAMINE 1.5MG/72HR PATCH TRANSDERM STA (17:35)
[2018-02-18] MEDS ORDERED: INSULIN REGULAR 100 UNIT in SODIUM CHLORIDE 0.9% 100 ML IV SCH (18:00)
[2018-02-18] MEDS: DAPTOmycin 500 MG in SODIUM CHLORIDE 0.9% 50 ML IV SCH (18:27)
[2018-02-18 19:03] LABS: Glucose,Whole Blood 349 mg/dL (75-99)
[2018-02-18 19:09] LABS: Hemoglobin A1C 7.6 % (4.0-6.0)
[2018-02-18 20:07] LABS: Glucose,Whole Blood 262 mg/dL (75-99)
[2018-02-18 20:37] LABS: Glucose,Whole Blood 197 mg/dL (75-99)
[2018-02-18 22:36] LABS: Glucose,Whole Blood 152 mg/dL (75-99)
[2018-02-19] MEDS: MEROPENEM 1 GM in SODIUM CHLORIDE 0.9% 100 ML IVPB SCH ×3 (00:34→14:33)
[2018-02-19] MEDS: ACETAMINOPHEN TAB 325 MG TAB PO PRN ×2 (00:41→13:32)
[2018-02-19 01:04] LABS: Glucose,Whole Blood 156 mg/dL (75-99)
[2018-02-19] MEDS ORDERED: VANCOMYCIN 2,000 MG in SODIUM CHLORIDE 0.9% 500 ML IVPB SCH (02:00)
[2018-02-19 02:52] LABS: Glucose,Whole Blood 129 mg/dL (75-99)
[2018-02-19 03:56] LABS: Glucose,Whole Blood 136 mg/dL (75-99)
[2018-02-19 06:05] LABS: Glucose,Whole Blood 128 mg/dL (75-99)
[2018-02-19 07:26] LABS: Glucose,Whole Blood 128 mg/dL (75-99)
[2018-02-19] MEDS ORDERED: INSULIN ASPART 100 UNIT/ML 1 ML 10 ML VIAL SQ SCH (07:30)
[2018-02-19 08:04] LABS: Glucose,Whole Blood 133 mg/dL (75-99)
[2018-02-19] MEDS: CARVEDILOL 12.5 MG TAB PO SCH ×2 (08:33→16:31)
[2018-02-19] MEDS: MULTIVITAMINS, THERA 1 EACH TAB PO SCH (08:34)
[2018-02-19] MEDS: acetaZOLAMIDE 250 MG TAB PO SCH ×2 (08:34→20:02)
[2018-02-19] MEDS: ENOXAPARIN 40 MG/0.4 ML SYRINGE SQ SCH (08:34)
[2018-02-19] MEDS: PANTOPRAZOLE 40 MG TABLET PO SCH (08:34)
[2018-02-19] MEDS: ASPIRIN 81 MG PO SCH (08:34)
[2018-02-19] MEDS: SPIRONOLACTONE 25 MG TAB PO SCH (08:34)
[2018-02-19] MEDS: DIGOXIN 250 MCG TAB PO SCH (08:34)
[2018-02-19] MEDS: SACUBITRIL/VALSARTAN 24 MG-26 MG TABLET PO SCH ×2 (08:34→20:02)
[2018-02-19] MEDS: GABAPENTIN 300 MG CAP PO SCH ×2 (08:34→20:02)
[2018-02-19 09:09] LABS: Basophils % (A) 0 %; Eosinophils % (A) 0 %; HCT 31.8 % (34.0-46.0); Hypochromasia Marked; Lymphocytes # (A) 0.5 k/uL (1.0-4.8); Lymphocytes % (A) 9 %; MCH 19.8 pg (25.0-35.0); MCHC 28.2 g/dL (31.0-37.0); MCV 70.1 fL (80.0-100.0); Mean Platelet Volume 6.8; Microcytosis Moderate; Monocytes # (A) 0.2 k/uL (0-1.0); Monocytes % (A) 4 %; Neutrophils # (A) 5.2 k/uL (1.3-7.7); Neutrophils % (A) 85 %; Platelet Count 226 k/uL (150-450); Poikilocytosis Slight; RBC 4.54 m/uL (3.80-5.40); RDW 15.7 % (11.5-15.5); WBC 6.1 k/uL (3.8-10.6)
[2018-02-19 09:12] LABS: Calcium 9.1 mg/dL (8.4-10.2); Potassium 4.1 mmol/L (3.5-5.1)
[2018-02-19] MEDS ORDERED: LIDOCAINE 1% (PF) 10MG/ML VIAL SQ ONE (09:24)
[2018-02-19 09:28] LABS: C Reactive Protein 178.2 mg/L (<10.0)
[2018-02-19] MEDS ORDERED: LEVOFLOXACIN 750MG-D5W PMX 750 MG in DEXTROSE/WATER 1 150ML.BAG IVPB SCH (10:00)
--- NOTE | 2018-02-19 10:01 | P.CNOR ---
History of Present Illness - [facility] Consult date: 02/19/18 Consult reason: other (Status post transmetatarsal amputation) History of present illness: The patient is a 42-year-old female with multiple medical problems who is well- known to our practice with an ongoing left foot infection. She is a noncompliant type II diabetic with uncontrolled glucose levels. She underwent a transmetatarsal amputation of the left foot on 01/20/[address] Delong. Prior to that she did undergo toe amputations by Dr. Hurd. The patient was noncompliant with nonweightbearing to the left foot postoperatively. She is currently in a premium equalizer boot with recommendations for continued nonweightbearing but she states that she is heel weightbearing only in the boot. She is currently using a cane for ambulation assistance. The patient did see Dr. Delong in the office last Tuesday and she was referred to Dr. Hurd for further wound care in the wound care center. She states that she started to have a fever and chills Tuesday night. She was seen at [facility] emergency department where labs were taken and she was tested for influenza. Labwork was negative and she was discharged home. The symptoms continued to worsen and she presented to [facility] emergency department yesterday for further evaluation. She was admitted for sepsis and a left foot infection. Orthopedics was consulted for further evaluation. The patient was seen by Dr. Villareal yesterday and placed on meropenem and daptomycin. Dr. Villareal states that no surgical intervention is needed at this time and continue Therahoney to the left foot wound. She has not been seen by Dr. Hurd yet. Nursing staff states that he may do a bedside debridement either today or tomorrow. Her WBCs were 16.7 yesterday and has come down to 6.1 today. Lactic acid was 1.0. C-reactive protein is 178.2. Review of Systems Constitutional: Reports chills, Reports fatigue, Reports fever Cardiovascular: Denies chest pain, Denies shortness of breath Gastrointestinal: Denies diarrhea, Denies nausea, Denies vomiting Musculoskeletal: left: foot swelling Integumentary: Reports wounds Neurological: Reports numbness (to the bilateral feet) Endocrine: Reports high blood sugars Past Medical History Past Medical History: Asthma, Heart Failure, COPD, CVA/TIA, Diabetes Mellitus, Hypertension, Myocardial Infarction (VT), Pneumonia, Seizure Disorder, Seizure Disorder Additional Past Medical History / Comment(s): CURRENT WOUND TO LEFT FOOT . amputations to ;eft toes in december 2017 . cardiomyopathy. asthma, varicose veins. Diabetic neuropathy in feet. 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 PICC LINE PLACED IN AUGUST 2016 FOR OSTEOMYLITIS BOTH FEET, DR VILLAREAL MANAGED ANTIBIOTICS Last Myocardial Infarction Date:: 11/2013 History of Any Multi-Drug Resistant Organisms: MRSA, VRE Year Discovered:: 2016 MDRO Source:: RIGHT FOOT Past Surgical History: Adenoidectomy, AICD, Section, Heart Catheterization, Orthopedic Surgery, Pacemaker, Tonsillectomy Additional Past Surgical History / Comment(s): AICD - [employer]. has pacemaker defibrillator, right great toe amputation 04/2016, LT GREAT TOE, left foot partial amputation Past Anesthesia/Blood Transfusion Reactions: Postoperative Nausea & Vomiting ( PONV) Type of Cardiac Device: Permanent Pacemaker, AICD Device Placement Date:: 2011 Past Psychological History: Bipolar Additional Psychological History / Comment(s): Single. Lives in the family home with her 2 children, as well as her son-in-law and brother. There are 3 pet cats and a dog in the home. 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 No alcohol or IV drug use. Quit smoking in Oct 2017. Has medical marijuana card and smokes marijuana on a daily basis at bedtime for pain control.. Smoking Status: Current every day smoker Past Alcohol Use History: None Reported Additional Past Alcohol Use History / Comment(s): STARTED SMOKING AT AGE 12 SMOKES 4-5 CIG PER DAY Past Drug Use History: Marijuana Additional Drug Use History / Comment(s): medical marijuana card-USES MEDICAL MARIJUANA DAILY - Past Family History Mother Family Medical History: Deep Vein Thrombosis (DVT) Additional Family Medical History / Comment(s): kidney failure. Father History Unknown: Yes Family Medical History: Cancer Medications and Allergies Home Medications Medication Instructions Recorded Confirmed Type Carvedilol [Coreg] 25 mg PO BID 03/04/15 02/18/18 History Spironolactone [Aldactone] 25 mg PO DAILY 03/04/15 02/18/18 History Digoxin [Lanoxin] 250 mcg PO QAM 08/22/15 02/18/18 History acetaZOLAMIDE [Diamox Sequels] 500 mg PO BID 12/03/16 02/18/18 History Insulin Aspart [NovoLOG 20 unit SQ AC-TID 12/17/16 02/18/18 History (formulary)] Albuterol Inhaler [Ventolin Hfa 2 puff INHALATION RT-Q6H PRN 08/07/17 02/18/18 History Inhaler] Gabapentin [Neurontin] 600 mg PO BID 08/19/17 02/18/18 History DULoxetine HCL [Cymbalta] 30 mg PO DAILY #7 cap 08/22/17 02/18/18 Rx Furosemide [Lasix] 60 mg PO BID@0900,1600 #60 tab 11/05/17 02/18/18 Rx Insulin Glargine [Lantus] 50 unit SQ QAM #0 11/06/17 02/18/18 Rx Sacubitril/Valsartan [Entresto 24 1 tab PO BID 12/15/17 02/18/18 History mg-26 mg Tablet] Pantoprazole [Protonix] 40 mg PO AC-BRKFST 30 Days #30 12/20/17 02/18/18 Rx tablet. Aspirin EC [Ecotrin Low Dose] 81 mg PO DAILY 02/13/18 02/18/18 History Allergies Allergy/AdvReac Type Severity Reaction Status Date / Time Penicillins Allergy Rash/Hives Verified 02/18/18 11:01 Physical Examination The patient is a 42-year-old female who is in no acute distress. She is alert and oriented 3. Exam of the left lower extremity reveals a well-healed incision to the medial lower leg with Steri-Strips intact. There is a incision to the distal aspect of the left foot. The incision is healing well except for the lateral aspect. There is an open ulceration. Ulceration measures 1 x 2.2 x 0.3 cm. There is some slough to the base of the wound. Otherwise the wound looks stable. No obvious fluid collection or abscess present. No other open wounds are present. Calf is soft and nontender. There is numbness to the entire foot. Circulatory status is intact. Results - Labs Labs: Abnormal Lab Results - Last 24 Hours (Table) 02/18/18 02/18/18 02/18/18 Range/Units 07:30 10:15 11:01 Hgb (11.4-16.0) gm/dL Hct (34.0-46.0) % MCV (80.0-100.0) fL MCH (25.0-35.0) pg MCHC (31.0-37.0) g/dL RDW (11.5-15.5) % Lymphocytes # (1.0-4.8) k/uL INR 1.2 H (<1.2) Carbon Dioxide (22-30) mmol/L BUN (7-17) mg/dL Glucose (74-99) mg/dL POC Glucose (mg/dL) (75-99) mg/dL Hemoglobin A1c 7.6 H (4.0-6.0) % C-Reactive Protein (<10.0) mg/L Urine Appearance Cloudy H (Clear) Urine Protein 1+ H (Negative) Urine Glucose (UA) Trace H (Negative) Urine Blood Small H (Negative) Ur Leukocyte Esterase Large H (Negative) Urine WBC 40 H (0-5) /hpf Ur Squamous Epith Cells 5 H (0-4) /hpf Urine Bacteria Occasional H (None) /hpf 02/18/18 02/18/18 02/18/18 Range/Units 12:44 16:50 18:59 Hgb (11.4-16.0) gm/dL Hct (34.0-46.0) % MCV (80.0-100.0) fL MCH (25.0-35.0) pg MCHC (31.0-37.0) g/dL RDW (11.5-15.5) % Lymphocytes # (1.0-4.8) k/uL INR (<1.2) Carbon Dioxide (22-30) mmol/L BUN (7-17) mg/dL Glucose (74-99) mg/dL POC Glucose (mg/dL) 406 H 314 H 349 H (75-99) mg/dL Hemoglobin A1c (4.0-6.0) % C-Reactive Protein (<10.0) mg/L Urine Appearance (Clear) Urine Protein (Negative) Urine Glucose (UA) (Negative) Urine Blood (Negative) Ur Leukocyte Esterase (Negative) Urine WBC (0-5) /hpf Ur Squamous Epith Cells (0-4) /hpf Urine Bacteria (None) /hpf 02/18/18 02/18/18 02/18/18 Range/Units 19:54 20:33 22:28 Hgb (11.4-16.0) gm/dL Hct (34.0-46.0) % MCV (80.0-100.0) fL MCH (25.0-35.0) pg MCHC (31.0-37.0) g/dL RDW (11.5-15.5) % Lymphocytes # (1.0-4.8) k/uL INR (<1.2) Carbon Dioxide (22-30) mmol/L BUN (7-17) mg/dL Glucose (74-99) mg/dL POC Glucose (mg/dL) 262 H 197 H 152 H (75-99) mg/dL Hemoglobin A1c (4.0-6.0) % C-Reactive Protein (<10.0) mg/L Urine Appearance (Clear) Urine Protein (Negative) Urine Glucose (UA) (Negative) Urine Blood (Negative) Ur Leukocyte Esterase (Negative) Urine WBC (0-5) /hpf Ur Squamous Epith Cells (0-4) /hpf Urine Bacteria (None) /hpf 02/19/18 02/19/18 02/19/18 Range/Units 00:39 02:41 03:48 Hgb (11.4-16.0) gm/dL Hct (34.0-46.0) % MCV (80.0-100.0) fL MCH (25.0-35.0) pg MCHC (31.0-37.0) g/dL RDW (11.5-15.5) % Lymphocytes # (1.0-4.8) k/uL INR (<1.2) Carbon Dioxide (22-30) mmol/L BUN (7-17) mg/dL Glucose (74-99) mg/dL POC Glucose (mg/dL) 156 H 129 H 136 H (75-99) mg/dL Hemoglobin A1c (4.0-6.0) % C-Reactive Protein (<10.0) mg/L Urine Appearance (Clear) Urine Protein (Negative) Urine Glucose (UA) (Negative) Urine Blood (Negative) Ur Leukocyte Esterase (Negative) Urine WBC (0-5) /hpf Ur Squamous Epith Cells (0-4) /hpf Urine Bacteria (None) /hpf 02/19/18 02/19/18 02/19/18 Range/Units 05:59 06:59 08:02 Hgb (11.4-16.0) gm/dL Hct (34.0-46.0) % MCV (80.0-100.0) fL MCH (25.0-35.0) pg MCHC (31.0-37.0) g/dL RDW (11.5-15.5) % Lymphocytes # (1.0-4.8) k/uL INR (<1.2) Carbon Dioxide (22-30) mmol/L BUN (7-17) mg/dL Glucose (74-99) mg/dL POC Glucose (mg/dL) 128 H 128 H 133 H (75-99) mg/dL Hemoglobin A1c (4.0-6.0) % C-Reactive Protein (<10.0) mg/L Urine Appearance (Clear) Urine Protein (Negative) Urine Glucose (UA) (Negative) Urine Blood (Negative) Ur Leukocyte Esterase (Negative) Urine WBC (0-5) /hpf Ur Squamous Epith Cells (0-4) /hpf Urine Bacteria (None) /hpf 02/19/18 02/19/18 Range/Units 08:13 08:13 Hgb 9.0 L (11.4-16.0) gm/dL Hct 31.8 L (34.0-46.0) % MCV 70.1 L (80.0-100.0) fL MCH 19.8 L (25.0-35.0) pg MCHC 28.2 L (31.0-37.0) g/dL RDW 15.7 H (11.5-15.5) % Lymphocytes # 0.5 L (1.0-4.8) k/uL INR (<1.2) Carbon Dioxide 16 L (22-30) mmol/L BUN 20 H (7-17) mg/dL Glucose 145 H (74-99) mg/dL POC Glucose (mg/dL) (75-99) mg/dL Hemoglobin A1c (4.0-6.0) % C-Reactive Protein 178.2 H (<10.0) mg/L Urine Appearance (Clear) Urine Protein (Negative) Urine Glucose (UA) (Negative) Urine Blood (Negative) Ur Leukocyte Esterase (Negative) Urine WBC (0-5) /hpf Ur Squamous Epith Cells (0-4) /hpf Urine Bacteria (None) /hpf Microbiology - Last 24 Hours (Table) 02/18/18 07:30 Blood Culture - Preliminary Blood No Growth after 24 hours 02/18/18 07:30 Gram Stain - Preliminary Foot - Left Wound Culture - Preliminary 02/18/18 10:15 Urine Culture - Preliminary Urine,Voided H & H 02/18/18 02/19/18 Range/Units 07:30 08:13 Hgb 8.2 L 9.0 L (11.4-16.0) gm/dL Hct 28.1 L 31.8 L (34.0-46.0) % Coagulation 02/18/18 Range/Units 11:01 INR 1.2 H (<1.2) Result Diagrams: 02/19/18 08:13 02/19/18 08:13 - Diagnostic results Ankle/Foot x-ray: image reviewed (3 views of the left foot reveal status post trans-metatarsal amputation. No obvious signs of further osteomyelitis but that cannot be excluded.) Assessment and Plan (1) Osteomyelitis of left foot Current Visit: No Status: Acute Code(s): M86.9 - OSTEOMYELITIS, UNSPECIFIED SNOMED Code(s): 4088532342524865 (2) Sepsis Current Visit: No Status: Acute Code(s): A41.9 - SEPSIS, UNSPECIFIED ORGANISM SNOMED Code(s): 22056233 (3) Status post amputation Current Visit: No Status: Acute Priority: Medium Code(s): Z89.9 - ACQUIRED ABSENCE OF LIMB, UNSPECIFIED SNOMED Code(s): 920402014 Plan: The clinical findings were discussed with the patient. The case was also discussed with Dr. Delong. Continue antibiotics per infectious disease. Continue wound care per Dr. Villareal and Dr. Hurd. Continue in premium equalizer boot. Encouraged nonweightbearing to the left lower extremity. No surgical intervention is warranted by orthopedics and we will sign off at this time. We will be happy to reevaluate the patient if her condition changes or further recommendations are needed.
[2018-02-19 11:24] LABS: Erythrocyte Sedimentation Rate 99 mm/hr (0-20)
[2018-02-19 12:19] LABS: Glucose,Whole Blood 251 mg/dL (75-99)
[2018-02-19] MEDS: INSULIN ASPART 100 UNIT/ML 1 ML 10 ML VIAL SQ SCH ×2 (12:41→17:57)
--- NOTE | 2018-02-19 13:01 | CONS ---
CONSULTATION This is a 42-year-old female, well known to me from the wound clinic. The patient has history of type 2 diabetes, which she underwent transmetatarsal amputation done by Dr. Delong on 01/20/2018. She also had a toe amputation done by me in the past. The patient came with a history of fever and wound on his left foot transmetatarsal area consult has been obtained for me for further evaluation. The patient is on IV antibiotic. PHYSICAL EXAMINATION: NECK: Supple. Trachea central. CHEST: Clear to auscultation. ABDOMEN: Soft. Brachial radial and femoral pulses are present. Dorsal pedis is palpable. The patient has an open wound on the a transmetatarsal stump side lateral aspect with some necrotic tissue present at the base of the wound. PLAN: Debridement of the wound and continue with IV antibiotics. Thank you very much for this consultation. MMEDINL / IJN: [id number] /
--- NOTE | 2018-02-19 13:31 | OP ---
OPERATIVE REPORT PREOP DIAGNOSIS: Infected wound, left foot, postop metatarsal amputation, lateral aspect of the stump. OPERATION: Debridement of the wound under local anesthesia down to subcutaneous tissue and necrotic tissue was removed and deep culture was taken. The patient's left foot was prepped and draped per usual sterile manner. 1% lidocaine infiltrated. Using sharp scissor we excised the necrotic tissue down to the subcu tissue. All the necrotic tissue was removed. No active bleeding was noted. We took some deep culture and sent for culture and sensitivity. Medihoney gel was applied to the wound. Dressing applied. Patient tolerated the procedure well. PLAN: Continue with Medihoney gel, IV antibiotic and if the patient goes home, I will follow in the Wound Clinic. MMODL / IJN: [id number] /
[2018-02-19 15:45] LABS: Glucose,Whole Blood 200 mg/dL (75-99)
[2018-02-19] MEDS ORDERED: INSULIN DETEMIR 100 UNIT/ML 10 ML VIAL SQ ONE (16:30)
[2018-02-19 17:28] LABS: Glucose,Whole Blood 166 mg/dL (75-99)
[2018-02-19] MEDS: DAPTOmycin 500 MG in SODIUM CHLORIDE 0.9% 50 ML IV SCH (17:57)
[2018-02-19] MEDS ORDERED: INSULIN DETEMIR 100 UNIT/ML 10 ML VIAL SQ SCH (21:00)
[2018-02-19 21:08] LABS: Glucose,Whole Blood 193 mg/dL (75-99)
[2018-02-20] MEDS: MEROPENEM 1 GM in SODIUM CHLORIDE 0.9% 100 ML IVPB SCH ×3 (00:01→15:07)
--- NOTE | 2018-02-20 00:12 | PN ---
PROGRESS NOTE DATE OF SERVICE: 02/19/2018. PRESENTING COMPLAINT: Left foot wound. INTERVAL HISTORY: This is a patient who presents with a wound at the left foot transmetatarsal area, looks a bit better today. Insulin drip was taken off and put on a regular insulin dose. The patient did tolerate some breakfast. Local debridement was carried out by Dr. Hurd. REVIEW OF SYSTEMS: Done for constitutional, cardiovascular, GI, pulmonary; relevant findings as above. CURRENT MEDICATIONS: Reviewed that include IV meropenem and daptomycin. EXAMINATION: The patient is afebrile, pulse 91, respirations 16, blood pressure 106/59, pulse ox 93% on 3 L. GENERAL APPEARANCE: Lying in bed, awake, more comfortable. EYES: Pupils equal. Conjunctivae are normal. HEENT: External appearance of nose and ears normal. Oral cavity normal. NECK: JVD not raised. Mass not palpable. Respiratory effort normal. LUNGS: Diminished breath sounds. CARDIOVASCULAR: First and seconds sounds, no edema. ABDOMEN: Soft, nontender. Liver and spleen not palpable. PSYCHIATRY: Alert and oriented x3. Mood and affect normal. MUSCULOSKELETAL: Wound on the lateral aspect on the transmetatarsal area now with dressing. INVESTIGATIONS: White count 6.1, hemoglobin 9, potassium 4.1, BUN 20, creatinine 1.0. Accu-Cheks are noted. CRP was 178.2. Wound cultures are pending. ASSESSMENT: 1. Left foot metatarsal amputation stump now with a diabetic foot wound, status post debridement causing sepsis present on admission. 2. Acute renal failure, likely prerenal, nonoliguric, present on admission. 3. Hyponatremia, suspect hypoosmolar. 4. Peripheral neuropathy from diabetes. 5. Chronic obstructive pulmonary disease in an ex-smoker. 6. Diabetes mellitus type 2, chronically on insulin. 7. Essential hypertension. 8. Hyperlipidemia. 9. Nonischemic congestive heart failure from systolic dysfunction ejection fraction 30% to 35%. 10. . 11.Morbid obesity, BMI 43.1. 12.Chronic normocytic anemia. PLAN: Continue current medication and treatment plan. The patient's sodium has actually improved. White count has come down. Insulin has been removed. It appears no further need for any surgical intervention. Clinically the patient is doing better, but awake. Await culture results. Follow. MMODL / IJN: [id number] /
[2018-02-20 07:14] LABS: Glucose,Whole Blood 154 mg/dL (75-99)
[2018-02-20] MEDS: INSULIN ASPART 100 UNIT/ML 1 ML 10 ML VIAL SQ SCH ×3 (08:12→18:10)
[2018-02-20] MEDS: GABAPENTIN 300 MG CAP PO SCH ×2 (08:13→20:38)
[2018-02-20] MEDS: PANTOPRAZOLE 40 MG TABLET PO SCH (08:13)
[2018-02-20] MEDS: acetaZOLAMIDE 250 MG TAB PO SCH ×2 (08:13→20:39)
[2018-02-20] MEDS: CARVEDILOL 12.5 MG TAB PO SCH ×2 (08:13→17:36)
[2018-02-20] MEDS: ASPIRIN 81 MG PO SCH (08:13)
[2018-02-20] MEDS: MULTIVITAMINS, THERA 1 EACH TAB PO SCH (08:13)
[2018-02-20] MEDS: ENOXAPARIN 40 MG/0.4 ML SYRINGE SQ SCH (08:13)
[2018-02-20] MEDS: DIGOXIN 250 MCG TAB PO SCH (08:13)
[2018-02-20] MEDS: SACUBITRIL/VALSARTAN 24 MG-26 MG TABLET PO SCH ×2 (08:13→20:38)
[2018-02-20] MEDS: SPIRONOLACTONE 25 MG TAB PO SCH (08:13)
[2018-02-20 09:40] LABS: Calcium 8.5 mg/dL (8.4-10.2)
[2018-02-20 11:36] LABS: Glucose,Whole Blood 203 mg/dL (75-99)
[2018-02-20] MEDS: INSULIN DETEMIR 100 UNIT/ML 10 ML VIAL SQ SCH (11:57)
--- NOTE | 2018-02-20 13:14 | PN ---
PROGRESS NOTE The patient is known to me from the wound clinic. She had transmetatarsal amputation of the left foot. The patient developed flap necrosis of wound on the lateral aspect of the stump. Yesterday we did debridement and we took a deep culture. Will continue with local wound care and if the patient is discharged from the hospital we will follow in the wound clinic. SONNY / LUCHO: [id number] /
[2018-02-20 15:18] VITALS: BMI 42.3
[2018-02-20 17:18] LABS: Glucose,Whole Blood 101 mg/dL (75-99)
[2018-02-20] MEDS: DAPTOmycin 500 MG in SODIUM CHLORIDE 0.9% 50 ML IV SCH (17:36)
[2018-02-20 20:34] LABS: Glucose,Whole Blood 95 mg/dL (75-99)
--- NOTE | 2018-02-20 22:47 | PN ---
PROGRESS NOTE DATE OF SERVICE: February 20, 2018. PRESENTING COMPLAINT: Left foot wound. INTERVAL HISTORY: This patient presented with a wound at the lateral aspect of the left stump, status post I and D. the patient was septic when she presented on insulin drip. Doing much better. Status post debridement by Dr. Hurd. Did tolerate a diet. Is rather perky. Getting antibiotics. REVIEW OF SYSTEMS: Done for constitutional, cardiovascular, GI, pulmonary, dermatological, relevant findings as above. CURRENT MEDICATIONS: Reviewed that include IV daptomycin and IV meropenem. PHYSICAL EXAMINATION: Temperature 99.9, pulse 76, respiratory rate 17, blood pressure 120/74, pulse ox 97% on room appearance: Sitting on bed perky, comfortable. Eyes: Pupils equal, conjunctivae normal. HEENT: External appearance of nose and ears normal. Oral cavity normal. Neck JVD not raised. Mass not palpable. Respiratory effort lungs are decreased breath sounds. Cardiovascular 1st and 2nd sounds normal. No edema. ABDOMEN: Soft, nontender. Liver and spleen not palpable. Psychiatry: Alert and oriented times three. Mood and affect normal. Left foot in a dressing. INVESTIGATIONS: Potassium 4, BUN 16, creatinine 1.07. Accu-Cheks are noted. Cultures are growing Staph aureus. ASSESSMENT: 1. Left foot metatarsal amputation stump with a diabetic foot wound status post debridement causing sepsis on presentation. Cultures growing Staph aureus. 2. Acute renal failure likely prerenal, nonoliguric, present on admission with improvement. 3. Hyponatremia, suspect hypoosmolar much improved. 4. Peripheral neuropathy from diabetes. 5. Chronic obstructive pulmonary disease in an ex-smoker. 6. Diabetes mellitus type 2, chronically on insulin. 7. Essential hypertension. 8. Hyperlipidemia. 9. Nonischemic congestive heart failure from systolic dysfunction, ejection fraction 30-35%. 10.Morbid obesity BMI 43.1. 11.Chronic normocytic anemia. PLAN: Continue medication and treatment plan. Await final determination of antibiotics per Dr. Alvarez. I spoke to Dr. Hurd from the vascular. From his standpoint, no further intervention at the present time. I discussed this with the patient, Ms. Hinson. MMODL / PAWELN: [id number] /
--- NOTE | 2018-02-20 23:37 | P.PN ---
Subjective Progress Note Date: 02/20/18 Principal diagnosis: Diabetic foot ulcer 42-year-old female who is known to the infectious disease service for many admissions as well as her care in the wound healing Center for her diabetic foot infections. She has difficulties with chronic high glucose with great difficulties controlling her blood sugars over the long-term. She's had multiple complications that involved amputation of toes of the right foot. More recently had the transmetatarsal amputation to the left foot is relatively and having difficulties the nonhealing ulceration to the lateral aspect of the dorsum of the foot. She now presents the emergency center with high-grade fever chills rigors and feeling very poorly. She has some discomfort of the left foot but in general just feels very poorly overall. She has not felt like this in many years. She is denying severe headache, denies to begin to respiratory symptoms she's not having an extensive amount of cough or sputum production, denies much abdominal pain and denies nausea or emesis, denies diarrhea, denies dysuria. 02/20/2018 reveals the patient is feeling somewhat better. She has been seen by Dr. Delong and foot debridements been performed. Goals for further antibiotic therapy and foot salvage. Objective - Vital Signs Vital signs: Vital Signs Temp 98.6 F 02/20/18 22:53 Pulse 67 02/20/18 22:53 Resp 16 02/20/18 22:53 BP 125/56 02/20/18 22:53 Pulse Ox 97 02/20/18 22:53 Intake & Output 02/20/18 02/20/18 02/21/18 06:59 18:59 06:59 Weight 122.47 kg Other: # Voids 1 3 1 - Exam 42-year-old female who appears older than her stated age. She does have difficulty with hair loss. HEENT: Anicteric conjunctiva are pink and moist nasal mucosa grossly intact without significant lesions, there is no thrush. Neck: The neck is supple without significant lymphadenopathy or thyromegaly. Lungs: They're symmetrical air entry, expiratory wheezes are scattered throughout, no dullness or egophony, Heart: Regular rate and rhythm with an audible S1-S2, no S3 soft S4. There is no significant murmur click or rub, PMI was nondisplaced. Abdomen: Obese, Positive bowel sounds soft and nontender without palpable masses or organomegaly. There was no guarding or rebound. Extremities: The upper extremities have excellent pulses they are symmetric, no significant petechiae or telangiectasia. No splinter hemorrhages were noted. The right lower extremity reveals evidence of no significant edema. Evidence of the toe amputation. Left lower extremity shows evidence of the recent transmetatarsal amputation, there is evidence of an open ulceration on the dorsum and lateral aspect of the foot. Measuring at 1 x 2.2 x 0.3 cm with some significant slough at the base Neuro: Awake alert oriented to person place and time. There are no acute new gross focal sensory motor deficits. - Labs CBC & Chem 7: 02/19/18 08:13 02/20/18 08:40 Labs: Abnormal Lab Results - Last 24 Hours (Table) 02/20/18 02/20/18 02/20/18 Range/Units 07:04 08:40 11:29 Carbon Dioxide 19 L (22-30) mmol/L Creatinine 1.07 H (0.52-1.04) mg/dL Glucose 214 H (74-99) mg/dL POC Glucose (mg/dL) 154 H 203 H (75-99) mg/dL 02/20/18 Range/Units 17:17 Carbon Dioxide (22-30) mmol/L Creatinine (0.52-1.04) mg/dL Glucose (74-99) mg/dL POC Glucose (mg/dL) 101 H (75-99) mg/dL Microbiology - Last 24 Hours (Table) 02/18/18 07:30 Gram Stain - Preliminary Foot - Left Wound Culture - Preliminary Presumptive Staph aureus 02/18/18 07:30 Blood Culture - Preliminary Blood No Growth after 48 hours 02/19/18 11:00 Gram Stain - Preliminary Foot - Left Wound Culture - Preliminary Presumptive Staph aureus 02/18/18 10:15 Urine Culture - Final Urine,Voided Assessment and Plan (1) Diabetic ulcer of foot associated with type 2 diabetes mellitus, with necrosis of bone Narrative/Plan: 42-year-old woman presents to the hospital today for high-grade fevers chills or rigors and feeling very poorly overall. The patient has been following the wound healing Center regarding the recent transmetatarsal amputation to her left foot. She was having some difficulties with ongoing ulceration. She has a ulceration the dorsum of the foot near the transmetatarsal amputation site. She is evidence of some swelling erythema and some drainage from that site. Antibiotic therapy will be added with meropenem and vancomycin basilar prior cultures and her penicillin ALLERGY. The patient appears to be having sepsis at this point in time and is having chills and rigors. Some Demerol will be given to see if he can terminate the rigors because she is quite miserable. We' ll do blood cultures are in process. She has significant leukocytosis related to the current infectious process. She has chronic noncompliance with her diabetes care with last A1c being 9.6 which actually was improved from 11 in the past. Local wound care with therjonnie is requested. Elevate the limb while at rest. Cultures without defined course of antibiotic therapy. She normally sees vascular surgery and they will also come by for consult does not appear to need an acute surgical intervention at this time. 02/20/2018 reveals the patient to be comfortable. The ulceration has been evaluated by Dr. Delong and cleansed. Wound cultures with staph aureus. She had leukocytosis and this is improving. We'll plan on intravenous antibiotic therapy. Patient will have a Bauman since she's had such difficulties with her PICC lines. And we'll work with home care and outpatient infusion for her antibiotic therapy in the home setting. Local wound care was with alvarado at this time. 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
[2018-02-21] MEDS: MEROPENEM 1 GM in SODIUM CHLORIDE 0.9% 100 ML IVPB SCH ×4 (00:19→23:29)
[2018-02-21] MEDS: acetaZOLAMIDE 250 MG TAB PO SCH ×2 (07:33→20:01)
[2018-02-21] MEDS: CARVEDILOL 12.5 MG TAB PO SCH ×2 (07:33→17:50)
[2018-02-21] MEDS: PANTOPRAZOLE 40 MG TABLET PO SCH (07:33)
[2018-02-21] MEDS: SACUBITRIL/VALSARTAN 24 MG-26 MG TABLET PO SCH ×2 (07:34→20:01)
[2018-02-21] MEDS: ENOXAPARIN 40 MG/0.4 ML SYRINGE SQ SCH (07:34)
[2018-02-21] MEDS: GABAPENTIN 300 MG CAP PO SCH ×2 (07:34→20:01)
[2018-02-21] MEDS: ASPIRIN 81 MG PO SCH (07:34)
[2018-02-21] MEDS: DIGOXIN 250 MCG TAB PO SCH (07:35)
[2018-02-21] MEDS: SPIRONOLACTONE 25 MG TAB PO SCH (07:35)
[2018-02-21 07:44] LABS: Glucose,Whole Blood 122 mg/dL (75-99)
[2018-02-21] MEDS: INSULIN ASPART 100 UNIT/ML 1 ML 10 ML VIAL SQ SCH ×3 (08:24→18:10)
[2018-02-21 09:29] LABS: Calcium 8.9 mg/dL (8.4-10.2); Potassium 4.3 mmol/L (3.5-5.1)
[2018-02-21 11:54] LABS: Glucose,Whole Blood 225 mg/dL (75-99)
[2018-02-21] MEDS: INSULIN DETEMIR 100 UNIT/ML 10 ML VIAL SQ SCH (12:07)
[2018-02-21] MEDS: MULTIVITAMINS, THERA 1 EACH TAB PO SCH (12:07)
[2018-02-21] MEDS ORDERED: SODIUM BICARBONATE TAB 650 MG TAB PO SCH (14:15)
--- NOTE | 2018-02-21 14:49 | PN ---
PROGRESS NOTE DATE OF SERVICE: 02/21/2018 PRESENT COMPLAINT: Left foot wound. INTERVAL HISTORY: This is a patient who presents with left foot stump wound, status post I and D by Dr. Hurd. She was septic when she was admitted, on insulin drip, now doing much better. Getting a Bauman line as ordered by Dr. Alvarez. Otherwise, tolerating a diet. Pain is well-controlled. REVIEW OF SYSTEMS: Done for constitutional, cardiovascular, GI, pulmonary, dermatological; relevant findings as above. CURRENT MEDICATIONS: Reviewed that include IV daptomycin, meropenem. PHYSICAL EXAMINATION: Temperature 96.6, pulse 87, respirations 16, blood pressure 119/63, pulse ox 97% on room air. GENERAL APPEARANCE; Sitting up on a chair, comfortable. EYES: Pupils equal, conjunctivae normal. HEENT: External appearance of nose and ears normal, oral cavity normal. NECK: JVD not raised. Mass not palpable. Respiratory effort normal. LUNGS: Decreased breath sounds. CARDIOVASCULAR: First and second sounds normal. Minimal edema. ABDOMEN: Soft, nontender. Liver and spleen not palpable. psychiatry: Alert and oriented x3. Mood and affect normal. EXTREMITY: Left foot in a dressing. INVESTIGATIONS: Potassium 4.3. Creatinine normal. Accu-Cheks 156, 225. Wound is growing Staph aureus. ASSESSMENT: 1. Left foot metatarsal amputation stump with a diabetic foot wound, status post debridement causing sepsis on presentation. Cultures growing Staphylococcus aureus. 2. Hyponatremia, suspect hypoosmolar, now corrected. 3. Peripheral neuropathy from diabetes. 4. Chronic obstructive pulmonary disease in an ex-smoker. 5. Diabetes mellitus type 2, chronically on insulin. 6. Essential hypertension. 7. Hyperlipidemia. 8. Nonischemic congestive heart failure from systolic dysfunction, ejection fraction 30% to 35%. 9. Morbid obesity, body mass index 43.1. 10.Chronic microcytic anemia. 11.Metabolic acidosis. PLAN: The patient will be getting a Bauman line placed. Will add sodium bicarb for the acidosis. Will send off iron studies. MMODL / IJN: [id number] /
[2018-02-21] MEDS ORDERED: IV FLUID CONTINUATION 1,000 ML IV ONE (16:10)
[2018-02-21] MEDS ORDERED: fentaNYL (PF) 50 MCG/ML 2 ML AMP IV ONE (16:19)
[2018-02-21] MEDS ORDERED: LIDOCAINE 2% INJ 20 MG/ML SQ ONE (16:20)
--- NOTE | 2018-02-21 17:10 | XR ---
EXAMINATION TYPE: XR chest 1V DATE OF EXAM: 02/21/2018 COMPARISON: 02/18/2018 HISTORY: Catheter placement TECHNIQUE: Single frontal view of the chest is obtained. FINDINGS: Heart is enlarged. There is right central venous catheter with tip in the superior vena ca va. There is left axillary pacemaker with the lead tips over the right ventricle. The lungs are clear of consolidation. There is subsegmental atelectasis in the left lower lobe. There is no pleural effu slava or pneumothorax. IMPRESSION: There is new mild subsegmental atelectasis at the left lung base compared to old exam. N o pneumothorax.
--- NOTE | 2018-02-21 17:22 | OP ---
OPERATIVE REPORT PREOPERATIVE DIAGNOSIS: Infected wound right foot. PROCEDURE: Ultrasound-guided Medcomp catheter placed through the internal jugular approach under conscious sedation, time is 19 minutes. PROCEDURE: This patient was brought to the orthodontic laboratory technician right side of the chest and neck was prepped and draped per usual sterile manner. 1% lidocaine was infiltrated into the chest and neck area. Ultrasound-guided micropuncture introduced into the right internal jugular vein. Micropuncture guide was passed. Checked under the C-arm. After that, a tunnel was created. Through the tunnel we brought the Medcomp catheter and sheath was advanced on top of the guidewire. Through the sheath we introduced the Medcomp catheter. Sheath was removed. The catheter was through superior vena cava and atrium. Flushed with heparin and saline and secured with Vicryl and nylon. Patient tolerated the procedure well. Conscious sedation time was 19 minutes. MMODL / IJN: [id number] /
[2018-02-21] MEDS: ACETAMINOPHEN TAB 325 MG TAB PO PRN (17:36)
[2018-02-21 17:50] LABS: Glucose,Whole Blood 141 mg/dL (75-99)
[2018-02-21] MEDS: DAPTOmycin 500 MG in SODIUM CHLORIDE 0.9% 50 ML IV SCH (17:50)
[2018-02-21] MEDS: SODIUM BICARBONATE TAB 650 MG TAB PO SCH ×2 (17:50→21:02)
[2018-02-21 20:56] LABS: Glucose,Whole Blood 84 mg/dL (75-99)
--- NOTE | 2018-02-22 00:41 | P.PN ---
Subjective Progress Note Date: 02/21/18 Principal diagnosis: Diabetic foot ulcer 42-year-old female who is known to the infectious disease service for many admissions as well as her care in the wound healing Center for her diabetic foot infections. She has difficulties with chronic high glucose with great difficulties controlling her blood sugars over the long-term. She's had multiple complications that involved amputation of toes of the right foot. More recently had the transmetatarsal amputation to the left foot is relatively and having difficulties the nonhealing ulceration to the lateral aspect of the dorsum of the foot. She now presents the emergency center with high-grade fever chills rigors and feeling very poorly. She has some discomfort of the left foot but in general just feels very poorly overall. She has not felt like this in many years. She is denying severe headache, denies to begin to respiratory symptoms she's not having an extensive amount of cough or sputum production, denies much abdominal pain and denies nausea or emesis, denies diarrhea, denies dysuria. 02/20/2018 reveals the patient is feeling somewhat better. She has been seen by Dr. Delong and foot debridements been performed. Goals for further antibiotic therapy and foot salvage. 02/21/2018 patient does feel better. Looks were to going home. Bauman catheter was placed and she is having significant discomfort at the site. Other than this denies fevers chills rigors or sweats. Continue to offload with rebound. Objective - Vital Signs Vital signs: Vital Signs Temp 97.7 F 02/21/18 15:00 Pulse 67 02/21/18 19:29 Resp 18 02/21/18 19:29 BP 129/67 02/21/18 19:29 Pulse Ox 99 02/21/18 15:00 Intake & Output 02/21/18 02/21/18 02/22/18 06:59 18:59 06:59 Intake Total 50 Balance 50 Intake: IV 50 Other: # Voids 1 3 1 - Exam 42-year-old female who appears older than her stated age. She does have difficulty with hair loss. HEENT: Anicteric conjunctiva are pink and moist nasal mucosa grossly intact without significant lesions, there is no thrush. Neck: The neck is supple without significant lymphadenopathy or thyromegaly. Lungs: They're symmetrical air entry, expiratory wheezes are scattered throughout, no dullness or egophony, Heart: Regular rate and rhythm with an audible S1-S2, no S3 soft S4. There is no significant murmur click or rub, PMI was nondisplaced. Abdomen: Obese, Positive bowel sounds soft and nontender without palpable masses or organomegaly. There was no guarding or rebound. Extremities: The upper extremities have excellent pulses they are symmetric, no significant petechiae or telangiectasia. No splinter hemorrhages were noted. The right lower extremity reveals evidence of no significant edema. Evidence of the toe amputation. Left lower extremity shows evidence of the recent transmetatarsal amputation, there is evidence of an open ulceration on the dorsum and lateral aspect of the foot. Measuring at 1 x 2.2 x 0.3 cm with some significant slough at the base Neuro: Awake alert oriented to person place and time. There are no acute new gross focal sensory motor deficits. - Labs CBC & Chem 7: 02/19/18 08:13 02/21/18 08:36 Labs: Abnormal Lab Results - Last 24 Hours (Table) 02/21/18 02/21/18 02/21/18 Range/Units 07:27 08:36 11:19 Chloride 108 H (98-107) mmol/L Carbon Dioxide 19 L (22-30) mmol/L Glucose 156 H (74-99) mg/dL POC Glucose (mg/dL) 122 H 225 H (75-99) mg/dL 02/21/18 Range/Units 17:14 Chloride (98-107) mmol/L Carbon Dioxide (22-30) mmol/L Glucose (74-99) mg/dL POC Glucose (mg/dL) 141 H (75-99) mg/dL Microbiology - Last 24 Hours (Table) 02/19/18 11:00 Anaerobic Culture - Preliminary Foot - Left 02/18/18 07:30 Blood Culture - Preliminary Blood No Growth after 72 hours 02/18/18 07:30 Gram Stain - Final Foot - Left Wound Culture - Final Staphylococcus aureus Laboratory Results WBC 6.1 k/uL (3.8-10.6) 02/19/18 08:13 RBC 4.54 m/uL (3.80-5.40) 02/19/18 08:13 Hgb 9.0 gm/dL (11.4-16.0) L 02/19/18 08:13 Hct 31.8 % (34.0-46.0) L 02/19/18 08:13 MCV 70.1 fL (80.0-100.0) L 02/19/18 08:13 MCH 19.8 pg (25.0-35.0) L 02/19/18 08:13 MCHC 28.2 g/dL (31.0-37.0) L 02/19/18 08:13 RDW 15.7 % (11.5-15.5) H 02/19/18 08:13 Plt Count 226 k/uL (150-450) 02/19/18 08:13 Neutrophils % 85 % 02/19/18 08:13 Neutrophils % (Manual) 92 % 02/18/18 07:30 Lymphocytes % 9 % 02/19/18 08:13 Lymphocytes % (Manual) 4 % 02/18/18 07:30 Monocytes % 4 % 02/19/18 08:13 Monocytes % (Manual) 4 % 02/18/18 07:30 Eosinophils % 0 % 02/19/18 08:13 Basophils % 0 % 02/19/18 08:13 Neutrophils # 5.2 k/uL (1.3-7.7) 02/19/18 08:13 Neutrophils # (Manual) 15.36 k/uL (1.3-7.7) H 02/18/18 07:30 Lymphocytes # 0.5 k/uL (1.0-4.8) L 02/19/18 08:13 Lymphocytes # (Manual) 0.67 k/uL (1.0-4.8) L 02/18/18 07:30 Monocytes # 0.2 k/uL (0-1.0) 02/19/18 08:13 Monocytes # (Manual) 0.67 k/uL (0-1.0) 02/18/18 07:30 Eosinophils # 0.0 k/uL (0-0.7) 02/19/18 08:13 Basophils # 0.0 k/uL (0-0.2) 02/19/18 08:13 Nucleated RBCs 0 /100 WBC (0-0) 02/18/18 07:30 Manual Slide Review Performed 02/18/18 07:30 Hypochromasia Marked 02/19/18 08:13 Poikilocytosis Slight 02/19/18 08:13 Anisocytosis Slight 02/18/18 07:30 Microcytosis Moderate 02/19/18 08:13 ESR 99 mm/hr (0-20) H 02/19/18 08:13 PT 11.1 sec (9.0-12.0) 02/18/18 11:01 INR 1.2 (<1.2) H 02/18/18 11:01 APTT 24.4 sec (22.0-30.0) 02/18/18 11:01 Sodium 141 mmol/L (137-145) 02/21/18 08:36 Potassium 4.3 mmol/L (3.5-5.1) 02/21/18 08:36 Chloride 108 mmol/L (98-107) H 02/21/18 08:36 Carbon Dioxide 19 mmol/L (22-30) L 02/21/18 08:36 Anion Gap 14 mmol/L 02/21/18 08:36 BUN 16 mg/dL (7-17) 02/21/18 08:36 Creatinine 0.92 mg/dL (0.52-1.04) 02/21/18 08:36 Est GFR (CKD-EPI)AfAm 88 (>60 ml/min/1.73 sqM) 02/21/18 08:36 Est GFR (CKD-EPI)NonAf 76 (>60 ml/min/1.73 sqM) 02/21/18 08:36 Glucose 156 mg/dL (74-99) H 02/21/18 08:36 POC Glucose (mg/dL) 84 mg/dL (75-99) 02/21/18 20:54 POC Glu Energy Derivatives Trader ID Rosanne Weinberg 02/21/18 20:[address] Glu mg/dL 171 02/18/18 07:30 Hemoglobin A1c 7.6 % (4.0-6.0) H 02/18/18 07:30 Plasma Lactic Acid [place] 1.0 mmol/L (0.7-2.0) 02/18/18 07:30 Calcium 8.9 mg/dL (8.4-10.2) 02/21/18 08:36 Total Bilirubin 0.5 mg/dL (0.2-1.3) 02/18/18 07:30 AST 18 U/L (14-36) 02/18/18 07:30 ALT 15 U/L (9-52) 02/18/18 07:30 Alkaline Phosphatase 115 U/L (38-126) 02/18/18 07:30 C-Reactive Protein 178.2 mg/L (<10.0) H 02/19/18 08:13 Total Protein 7.5 g/dL (6.3-8.2) 02/18/18 07:30 Albumin 3.8 g/dL (3.5-5.0) 02/18/18 07:30 Urine Color Yellow 02/18/18 10:15 Urine Appearance Cloudy (Clear) H 02/18/18 10:15 Urine pH 5.5 (5.0-8.0) 02/18/18 10:15 Ur Specific [place] 1.010 (1.001-1.035) 02/18/18 10:15 Urine Protein 1+ (Negative) H 02/18/18 10:15 Urine Glucose (UA) Trace (Negative) H 02/18/18 10:15 Urine Ketones Negative (Negative) 02/18/18 10:15 Urine Blood Small (Negative) H 02/18/18 10:15 Urine Nitrite Negative (Negative) 02/18/18 10:15 Urine Bilirubin Negative (Negative) 02/18/18 10:15 Urine Urobilinogen <2.0 mg/dL (<2.0) 02/18/18 10:15 Ur Leukocyte Esterase Large (Negative) H 02/18/18 10:15 Urine WBC 40 /hpf (0-5) H 02/18/18 10:15 Ur Squamous Epith Cells 5 /hpf (0-4) H 02/18/18 10:15 Urine Bacteria Occasional /hpf (None) H 02/18/18 10:15 Acetone, Qual Negative (Negative) 02/18/18 07:30 Influenza Type A RNA Not Detected (Not Detectd) 02/18/18 07:30 Influenza Type B (PCR) Not Detected (Not Detectd) 02/18/18 07:30 Microbiology 02/19/18 11:00 Foot - Left Anaerobic Culture - Preliminary 02/18/18 07:30 Blood Blood Culture - Preliminary No Growth after 72 hours 02/18/18 07:30 Foot - Left Gram Stain - Final 02/18/18 07:30 Foot - Left Wound Culture - Final Staphylococcus aureus 02/19/18 11:00 Foot - Left Gram Stain - Preliminary 02/19/18 11:00 Foot - Left Wound Culture - Preliminary Presumptive Staph aureus 02/18/18 10:15 Urine,Voided Urine Culture - Final Assessment and Plan (1) Diabetic ulcer of foot associated with type 2 diabetes mellitus, with necrosis of bone Narrative/Plan: 42-year-old woman presents to the hospital today for high-grade fevers chills or rigors and feeling very poorly overall. The patient has been following the wound healing Center regarding the recent transmetatarsal amputation to her left foot. She was having some difficulties with ongoing ulceration. She has a ulceration the dorsum of the foot near the transmetatarsal amputation site. She is evidence of some swelling erythema and some drainage from that site. Antibiotic therapy will be added with meropenem and vancomycin basilar prior cultures and her penicillin ALLERGY. The patient appears to be having sepsis at this point in time and is having chills and rigors. Some Demerol will be given to see if he can terminate the rigors because she is quite miserable. We' ll do blood cultures are in process. She has significant leukocytosis related to the current infectious process. She has chronic noncompliance with her diabetes care with last A1c being 9.6 which actually was improved from 11 in the past. Local wound care with alvarado is requested. Elevate the limb while at rest. Cultures without defined course of antibiotic therapy. She normally sees vascular surgery and they will also come by for consult does not appear to need an acute surgical intervention at this time. 02/20/2018 reveals the patient to be comfortable. The ulceration has been evaluated by Dr. Delong and cleansed. Wound cultures with staph aureus. She had leukocytosis and this is improving. We'll plan on intravenous antibiotic therapy. Patient will have a Bauman since she's had such difficulties with her PICC lines. And we'll work with home care and outpatient infusion for her antibiotic therapy in the home setting. Local wound care was with alvarado at this time 02/21/2018 patient has further improvement. Looks forward to discharge tomorrow. We'll hopefully be able to utilize Rocephin. For once daily home infusion. Starting here in the hospital. Patient agrees to utilizing [facility] for outpatient diabetic services and prescription being sent. 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
[2018-02-22 02:26] LABS: Glucose,Whole Blood 90 mg/dL (75-99)
[2018-02-22] MEDS: ACETAMINOPHEN TAB 325 MG TAB PO PRN (04:00)
[2018-02-22 07:44] LABS: Glucose,Whole Blood 105 mg/dL (75-99)
[2018-02-22] MEDS: CARVEDILOL 12.5 MG TAB PO SCH (09:05)
[2018-02-22] MEDS: INSULIN ASPART 100 UNIT/ML 1 ML 10 ML VIAL SQ SCH ×2 (09:06→11:47)
[2018-02-22] MEDS: MEROPENEM 1 GM in SODIUM CHLORIDE 0.9% 100 ML IVPB SCH (09:07)
[2018-02-22] MEDS: PANTOPRAZOLE 40 MG TABLET PO SCH (09:07)
[2018-02-22] MEDS: acetaZOLAMIDE 250 MG TAB PO SCH (09:08)
[2018-02-22] MEDS: ENOXAPARIN 40 MG/0.4 ML SYRINGE SQ SCH (09:08)
[2018-02-22] MEDS: DIGOXIN 250 MCG TAB PO SCH (09:08)
[2018-02-22] MEDS: ASPIRIN 81 MG PO SCH (09:08)
[2018-02-22] MEDS: SACUBITRIL/VALSARTAN 24 MG-26 MG TABLET PO SCH (09:08)
[2018-02-22] MEDS: GABAPENTIN 300 MG CAP PO SCH (09:08)
[2018-02-22] MEDS: SODIUM BICARBONATE TAB 650 MG TAB PO SCH ×2 (09:09→15:22)
[2018-02-22] MEDS: SPIRONOLACTONE 25 MG TAB PO SCH (09:09)
[2018-02-22 10:00] LABS: Anion Gap 14 mmol/L; Blood Urea Nitrogen 17 mg/dL (7-17); Calcium 8.8 mg/dL (8.4-10.2); Carbon Dioxide 18 mmol/L (22-30); Chloride 109 mmol/L (98-107); Glucose 147 mg/dL (74-99); Potassium 4.4 mmol/L (3.5-5.1); Sodium 141 mmol/L (137-145)
[2018-02-22] MEDS: INSULIN DETEMIR 100 UNIT/ML 10 ML VIAL SQ SCH (11:47)
[2018-02-22 11:48] LABS: Glucose,Whole Blood 161 mg/dL (75-99)
[2018-02-22] MEDS: MULTIVITAMINS, THERA 1 EACH TAB PO SCH (11:48)
[2018-02-22] MEDS ORDERED: cefTRIAXone IN SWFI 2,000 MG/20 ML SYRINGE IVP SCH (12:30)
[2018-02-22 15:42] VITALS: RESP 18
[2018-02-22 16:01] VITALS: BP 114/58; PULSE 71; TEMP 97.2
[2018-02-22 17:54] LABS: Iron Saturation 3.48 (12.00-45.00)
--- NOTE | 2018-02-22 22:44 | P.PN ---
Subjective Progress Note Date: 02/22/18 Principal diagnosis: Diabetic foot ulcer 42-year-old female who is known to the infectious disease service for many admissions as well as her care in the wound healing Center for her diabetic foot infections. She has difficulties with chronic high glucose with great difficulties controlling her blood sugars over the long-term. She's had multiple complications that involved amputation of toes of the right foot. More recently had the transmetatarsal amputation to the left foot is relatively and having difficulties the nonhealing ulceration to the lateral aspect of the dorsum of the foot. She now presents the emergency center with high-grade fever chills rigors and feeling very poorly. She has some discomfort of the left foot but in general just feels very poorly overall. She has not felt like this in many years. She is denying severe headache, denies to begin to respiratory symptoms she's not having an extensive amount of cough or sputum production, denies much abdominal pain and denies nausea or emesis, denies diarrhea, denies dysuria. 02/20/2018 reveals the patient is feeling somewhat better. She has been seen by Dr. Delong and foot debridements been performed. Goals for further antibiotic therapy and foot salvage. 02/21/2018 patient does feel better. Looks were to going home. Bauman catheter was placed and she is having significant discomfort at the site. Other than this denies fevers chills rigors or sweats. Continue to offload with wheelchair. 02/22/2018 patient is being readied for discharge to home. Bauman catheter was placed. Abdomen some discomfort at the site she's doing well. She is denying fevers or chills looks for going home. First dose of Rocephin given without any complications. Objective - Vital Signs Vital signs: Vital Signs Temp 97.2 F L 02/22/18 16:00 Pulse 71 02/22/18 16:00 Resp 18 02/22/18 16:00 BP 114/58 02/22/18 16:00 Pulse Ox 99 02/22/18 16:00 Intake & Output 02/22/18 02/22/18 02/23/18 06:59 18:59 06:59 Intake Total 1000 Balance 1000 Intake: Intake, IV Titration 1000 Amount Meropenem 1 gm In Sodium 1000 Chloride 0.9% 100 ml @ 100 mls/hr IVPB Q8HR [facility] Rx#:[id number] Other: # Voids 2 4 - Exam 42-year-old female who appears older than her stated age. She does have difficulty with hair loss. HEENT: Anicteric conjunctiva are pink and moist nasal mucosa grossly intact without significant lesions, there is no thrush. Neck: The neck is supple without significant lymphadenopathy or thyromegaly. Lungs: They're symmetrical air entry, expiratory wheezes are scattered throughout, no dullness or egophony, Heart: Regular rate and rhythm with an audible S1-S2, no S3 soft S4. There is no significant murmur click or rub, PMI was nondisplaced. Abdomen: Obese, Positive bowel sounds soft and nontender without palpable masses or organomegaly. There was no guarding or rebound. Extremities: The upper extremities have excellent pulses they are symmetric, no significant petechiae or telangiectasia. No splinter hemorrhages were noted. The right lower extremity reveals evidence of no significant edema. Evidence of the toe amputation. Left lower extremity shows evidence of the recent transmetatarsal amputation, there is evidence of an open ulceration on the dorsum and lateral aspect of the foot. Measuring at 1 x 2.2 x 0.3 cm with some significant slough at the base Neuro: Awake alert oriented to person place and time. There are no acute new gross focal sensory motor deficits. - Labs CBC & Chem 7: 02/19/18 08:13 02/22/18 08:47 Labs: Abnormal Lab Results - Last 24 Hours (Table) 02/22/18 02/22/18 02/22/18 Range/Units 07:10 08:47 11:44 Chloride 109 H (98-107) mmol/L Carbon Dioxide 18 L (22-30) mmol/L Glucose 147 H (74-99) mg/dL POC Glucose (mg/dL) 105 H 161 H (75-99) mg/dL Microbiology - Last 24 Hours (Table) 02/19/18 11:00 Gram Stain - Final Foot - Left Wound Culture - Final Staphylococcus aureus 02/18/18 07:30 Blood Culture - Preliminary Blood No Growth after 96 hours Laboratory Results WBC 6.1 k/uL (3.8-10.6) 02/19/18 08:13 RBC 4.54 m/uL (3.80-5.40) 02/19/18 08:13 Hgb 9.0 gm/dL (11.4-16.0) L 02/19/18 08:13 Hct 31.8 % (34.0-46.0) L 02/19/18 08:13 MCV 70.1 fL (80.0-100.0) L 02/19/18 08:13 MCH 19.8 pg (25.0-35.0) L 02/19/18 08:13 MCHC 28.2 g/dL (31.0-37.0) L 02/19/18 08:13 RDW 15.7 % (11.5-15.5) H 02/19/18 08:13 Plt Count 226 k/uL (150-450) 02/19/18 08:13 Neutrophils % 85 % 02/19/18 08:13 Neutrophils % (Manual) 92 % 02/18/18 07:30 Lymphocytes % 9 % 02/19/18 08:13 Lymphocytes % (Manual) 4 % 02/18/18 07:30 Monocytes % 4 % 02/19/18 08:13 Monocytes % (Manual) 4 % 02/18/18 07:30 Eosinophils % 0 % 02/19/18 08:13 Basophils % 0 % 02/19/18 08:13 Neutrophils # 5.2 k/uL (1.3-7.7) 02/19/18 08:13 Neutrophils # (Manual) 15.36 k/uL (1.3-7.7) H 02/18/18 07:30 Lymphocytes # 0.5 k/uL (1.0-4.8) L 02/19/18 08:13 Lymphocytes # (Manual) 0.67 k/uL (1.0-4.8) L 02/18/18 07:30 Monocytes # 0.2 k/uL (0-1.0) 02/19/18 08:13 Monocytes # (Manual) 0.67 k/uL (0-1.0) 02/18/18 07:30 Eosinophils # 0.0 k/uL (0-0.7) 02/19/18 08:13 Basophils # 0.0 k/uL (0-0.2) 02/19/18 08:13 Nucleated RBCs 0 /100 WBC (0-0) 02/18/18 07:30 Manual Slide Review Performed 02/18/18 07:30 Hypochromasia Marked 02/19/18 08:13 Poikilocytosis Slight 02/19/18 08:13 Anisocytosis Slight 02/18/18 07:30 Microcytosis Moderate 02/19/18 08:13 ESR 99 mm/hr (0-20) H 02/19/18 08:13 PT 11.1 sec (9.0-12.0) 02/18/18 11:01 INR 1.2 (<1.2) H 02/18/18 11:01 APTT 24.4 sec (22.0-30.0) 02/18/18 11:01 Sodium 141 mmol/L (137-145) 02/22/18 08:47 Potassium 4.4 mmol/L (3.5-5.1) 02/22/18 08:47 Chloride 109 mmol/L (98-107) H 02/22/18 08:47 Carbon Dioxide 18 mmol/L (22-30) L 02/22/18 08:47 Anion Gap 14 mmol/L 02/22/18 08:47 BUN 17 mg/dL (7-17) 02/22/18 08:47 Creatinine 0.88 mg/dL (0.52-1.04) 02/22/18 08:47 Est GFR (CKD-EPI)AfAm >90 (>60 ml/min/1.73 sqM) 02/22/18 08:47 Est GFR (CKD-EPI)NonAf 81 (>60 ml/min/1.73 sqM) 02/22/18 08:47 Glucose 147 mg/dL (74-99) H 02/22/18 08:47 POC Glucose (mg/dL) 161 mg/dL (75-99) H 02/22/18 11:44 POC Glu Shuttle Preparation Supervisor ID Pily Fraga 02/22/18 11:[address] Glu mg/dL 171 02/18/18 07:30 Hemoglobin A1c 7.6 % (4.0-6.0) H 02/18/18 07:30 Plasma Lactic Acid [place] 1.0 mmol/L (0.7-2.0) 02/18/18 07:30 Calcium 8.8 mg/dL (8.4-10.2) 02/22/18 08:47 Total Bilirubin 0.5 mg/dL (0.2-1.3) 02/18/18 07:30 AST 18 U/L (14-36) 02/18/18 07:30 ALT 15 U/L (9-52) 02/18/18 07:30 Alkaline Phosphatase 115 U/L (38-126) 02/18/18 07:30 C-Reactive Protein 178.2 mg/L (<10.0) H 02/19/18 08:13 Total Protein 7.5 g/dL (6.3-8.2) 02/18/18 07:30 Albumin 3.8 g/dL (3.5-5.0) 02/18/18 07:30 Urine Color Yellow 02/18/18 10:15 Urine Appearance Cloudy (Clear) H 02/18/18 10:15 Urine pH 5.5 (5.0-8.0) 02/18/18 10:15 Ur Specific [place] 1.010 (1.001-1.035) 02/18/18 10:15 Urine Protein 1+ (Negative) H 02/18/18 10:15 Urine Glucose (UA) Trace (Negative) H 02/18/18 10:15 Urine Ketones Negative (Negative) 02/18/18 10:15 Urine Blood Small (Negative) H 02/18/18 10:15 Urine Nitrite Negative (Negative) 02/18/18 10:15 Urine Bilirubin Negative (Negative) 02/18/18 10:15 Urine Urobilinogen <2.0 mg/dL (<2.0) 02/18/18 10:15 Ur Leukocyte Esterase Large (Negative) H 02/18/18 10:15 Urine WBC 40 /hpf (0-5) H 02/18/18 10:15 Ur Squamous Epith Cells 5 /hpf (0-4) H 02/18/18 10:15 Urine Bacteria Occasional /hpf (None) H 02/18/18 10:15 Acetone, Qual Negative (Negative) 02/18/18 07:30 Influenza Type A RNA Not Detected (Not Detectd) 02/18/18 07:30 Influenza Type B (PCR) Not Detected (Not Detectd) 02/18/18 07:30 Microbiology 02/19/18 11:00 Foot - Left Gram Stain - Final 02/19/18 11:00 Foot - Left Wound Culture - Final Staphylococcus aureus 02/18/18 07:30 Blood Blood Culture - Preliminary No Growth after 96 hours 02/19/18 11:00 Foot - Left Anaerobic Culture - Preliminary 02/18/18 07:30 Foot - Left Gram Stain - Final 02/18/18 07:30 Foot - Left Wound Culture - Final Staphylococcus aureus 02/18/18 10:15 Urine,Voided Urine Culture - Final Assessment and Plan (1) Diabetic ulcer of foot associated with type 2 diabetes mellitus, with necrosis of bone Narrative/Plan: 42-year-old woman presents to the hospital today for high-grade fevers chills or rigors and feeling very poorly overall. The patient has been following the wound healing Center regarding the recent transmetatarsal amputation to her left foot. She was having some difficulties with ongoing ulceration. She has a ulceration the dorsum of the foot near the transmetatarsal amputation site. She is evidence of some swelling erythema and some drainage from that site. Antibiotic therapy will be added with meropenem and vancomycin basilar prior cultures and her penicillin ALLERGY. The patient appears to be having sepsis at this point in time and is having chills and rigors. Some Demerol will be given to see if he can terminate the rigors because she is quite miserable. We' ll do blood cultures are in process. She has significant leukocytosis related to the current infectious process. She has chronic noncompliance with her diabetes care with last A1c being 9.6 which actually was improved from 11 in the past. Local wound care with therahoney is requested. Elevate the limb while at rest. Cultures without defined course of antibiotic therapy. She normally sees vascular surgery and they will also come by for consult does not appear to need an acute surgical intervention at this time. 02/20/2018 reveals the patient to be comfortable. The ulceration has been evaluated by Dr. Delong and cleansed. Wound cultures with staph aureus. She had leukocytosis and this is improving. We'll plan on intravenous antibiotic therapy. Patient will have a Bauman since she's had such difficulties with her PICC lines. And we'll work with home care and outpatient infusion for her antibiotic therapy in the home setting. Local wound care was with therahoney at this time 02/21/2018 patient has further improvement. Looks forward to discharge tomorrow. We'll hopefully be able to utilize Rocephin. For once daily home infusion. Starting here in the hospital. Patient agrees to utilizing [facility] for outpatient diabetic services and prescription being sent. Local wound care as offloading and medical honey to the surgical site 02/14/2018 patient is improving for discharge today. She received her first dose of Rocephin and tolerating it well. Intravenous antibiotic therapy set up without difficulties. Local wound care with medical honey will follow-up with the wound healing Center. Minimal discomfort from the Bauman catheter site but is otherwise doing well. Status: Acute Code(s): E11.621 - TYPE 2 DIABETES MELLITUS WITH FOOT ULCER; L97.504 - NON-PRS CHRONIC ULCER OTH PRT UNSP FOOT W NECROSIS OF BONE SNOMED Code(s): 0133625215079 (2) Uncontrolled type 2 diabetes mellitus without complication, with long-term current use of insulin Status: Acute Code(s): E11.65 - TYPE 2 DIABETES MELLITUS WITH HYPERGLYCEMIA; Z79.4 - [facility] (CURRENT) USE OF INSULIN SNOMED Code(s): 112272259 (3) Leukocytosis Status: Acute Code(s): D72.829 - ELEVATED WHITE BLOOD CELL COUNT, UNSPECIFIED SNOMED Code(s): 872780422 (4) Anemia Status: Acute Code(s): D64.9 - ANEMIA, UNSPECIFIED SNOMED Code(s): 137400188
--- NOTE | 2018-02-23 03:43 | DS ---
DISCHARGE SUMMARY DATE OF ADMISSION: February 18, 2018. DATE OF DISCHARGE: February 22, 2018. FINAL DIAGNOSES: 1. Left foot metatarsal amputation stump lateral aspect wound in a diabetic foot infected causing sepsis on presentation growing MSSA. 2. Hyponatremia, suspect hypoosmolar. 3. Diabetes mellitus type 2, chronically on insulin causing peripheral neuropathy. 4. Chronic obstructive pulmonary disease in an ex-smoker. 5. Essential hypertension. 6. Hyperlipidemia. 7. Nonischemic congestive heart failure from systolic dysfunction, ejection fraction 30-35%. 8. Morbid obesity BMI 43.1. 9. Chronic microcytic anemia. 10.Metabolic acidosis. HOSPITAL COURSE: This patient presented with sepsis picture with a wound on the transmetatarsal amputation site on the lateral axis that was done by Dr. Delong with a rather septic picture. Cultures did come back showing MSSA. Antibiotics were Dr. Alvarez. Dr. Hurd did carry out I and D of the same and according to him that was healing rather good. At the time of discharge, patient is doing really well. Tolerating a diet. Pain was controlled. The patient's BUN creatinine was normal at the time of discharge. White count had normalized. Care was discussed with the patient. Next procedure Bauman catheter was placed and also I and D of the wound was carried out by Dr. Hurd. DISCHARGE MEDICATIONS: 1. Coreg 25 mg b.i.d. 2. Aldactone 25 mg p.o. daily. 3. Digoxin 250 mcg p.o. daily. 4. Diamox 100 mg p.o. b.i.d. 5. NovoLog 20 units subcu a.c. t.i.d. 6. Ventolin HFA 2 puffs q.6 p.r.n. 7. Neurontin 600 mg p.o. b.i.d. 8. Cymbalta 30 mg p.o. daily. 9. Lantus 50 units subcu in the morning. 10.Crestor one tab p.o. b.i.d. 11.Protonix 40 mg breakfast. 12.Ceftriaxone 2000 mg q.24 for 42 days. 13.Aspirin 81 mg a day. 14.Lasix 60 mg p.o. daily. 15.Multivitamin 1 tab p.o. daily. 16.Sodium bicarb 650 mg p.o. t.i.d. FOLLOW UP: With Dr. Causey on February 27, 2018, follow up with Dr. Alvarez on March 15, 2018, follow up with Dr. Hurd on March 01, 2018, follow up with the Wound Center on February 27, 2018. Labs, CBC and BMP weekly. Copy to Dr. Causey. SONNY / LUCHO: [id number] /
--- NOTE | 2018-02-23 10:49 | IR ---
Fluoroscopy HISTORY: Infection, needs long-term intravenous access for therapy 60 seconds fluoroscopy time supplied to the referring clinician. 616 intraoperative C-arm images doc ument the procedure. See dictated report from vascular surgery.
== END 2018-02-22 16:58 | disposition home health service (06) | DRG 854 ==
LOC: EC 06:52 → 4MS4W 09:57
PROVIDERS: ADMIT Hospitalist; ATTEND Hospitalist
PROC: 0JBR0ZZ Excision of Left Foot Subcutaneous Tissue and Fascia, Open Approach (ICD-10-PCS; principal; 2018-02-19)
PROC: 05HM33Z Insertion of Infusion Device into Right Internal Jugular Vein, Percutaneous Approach (ICD-10-PCS; 2018-02-21 10:20)
DX: A41.9 Sepsis, unspecified organism (principal); M86.172 Other acute osteomyelitis, left ankle and foot; N17.9 Acute kidney failure, unspecified; E87.2 Acidosis; I42.9 Cardiomyopathy, unspecified; I50.22 Chronic systolic (congestive) heart failure; E87.1 Hypo-osmolality and hyponatremia; E11.42 Type 2 diabetes mellitus with diabetic polyneuropathy; E66.01 Morbid (severe) obesity due to excess calories; E11.621 Type 2 diabetes mellitus with foot ulcer; E11.65 Type 2 diabetes mellitus with hyperglycemia; I11.0 Hypertensive heart disease with heart failure; D50.9 Iron deficiency anemia, unspecified; F17.200 Nicotine dependence, unspecified, uncomplicated; L97.524 Non-pressure chronic ulcer of other part of left foot with necrosis of bone; L97.519 Non-pressure chronic ulcer of other part of right foot with unspecified severity; E11.69 Type 2 diabetes mellitus with other specified complication; E78.5 Hyperlipidemia, unspecified; G40.909 Epilepsy, unspecified, not intractable, without status epilepticus; I25.2 Old myocardial infarction; J44.9 Chronic obstructive pulmonary disease, unspecified; I69.911 Memory deficit following unspecified cerebrovascular disease; L08.9 Local infection of the skin and subcutaneous tissue, unspecified; I83.90 Asymptomatic varicose veins of unspecified lower extremity; Z68.41 Body mass index [BMI] 40.0-44.9, adult; Z91.19 Patient's noncompliance with other medical treatment and regimen; Z89.411 Acquired absence of right great toe; Z88.0 Allergy status to penicillin; Z79.4 Long term (current) use of insulin; Z79.82 Long term (current) use of aspirin; Z79.899 Other long term (current) drug therapy; Z89.432 Acquired absence of left foot; Z86.14 Personal history of Methicillin resistant Staphylococcus aureus infection; Z95.810 Presence of automatic (implantable) cardiac defibrillator; Z87.01 Personal history of pneumonia (recurrent)
CPT/HCPCS: 36415; 36556; 71045; 71046; 76937; 77001; 80048; 80053; 81001; 82009; 82728; 83036; 83540; 83550; 83605; 85025; 85610; 85652; 85730; 86140; 87040; 87070; 87075; 87077; 87086; 87186; 87205; 87502; 93005; 94640; 96361; 96365; 96366; 96367; 99284

== ENCOUNTER 2018-09-13 11:50 | Inpatient (IN) | payer MEDICARE, OTHER ==
[2018-09-13] MEDS ORDERED: FUROSEMIDE 10 MG/ML 4 ML VIAL IV STA (12:09)
--- NOTE | 2018-09-13 12:12 | ED ---
General Adult HPI - General Chief complaint: Shortness of Breath Stated complaint: CHF problem Time Seen by Provider: 09/13/18 11:58 Source: patient, RN notes reviewed Mode of arrival: wheelchair Limitations: no limitations - History of Present Illness Initial comments: Patient is a pleasant 42-year-old female presenting to the emergency department with difficulty in breathing. Onset of symptoms was several days ago. Symptoms worsened the past 2 nights. Dyspnea worsens with exertion and lying down. Patient does have a history of similar symptoms previously associated with congestive heart failure. Patient also has COPD however has not noticed much wheezing. Patient has noticed some leg swelling without leg discomfort. No chest pain. No fever. Occasional nonproductive cough. Patient is on Eliquis. Patient denies any black tarry stools. - Related Data Home Medications Medication Instructions Recorded Confirmed Carvedilol [Coreg] 25 mg PO BID 03/04/15 09/13/18 Spironolactone [Aldactone] 25 mg PO DAILY 03/04/15 09/13/18 acetaZOLAMIDE [Diamox Sequels] 500 mg PO BID 12/03/16 09/13/18 Insulin Aspart [NovoLOG 20 unit SQ AC-TID 12/17/16 09/13/18 (formulary)] Albuterol Inhaler [Ventolin Hfa 2 puff INHALATION RT-Q6H PRN 08/07/17 09/13/18 Inhaler] Gabapentin [Neurontin] 600 mg PO BID 08/19/17 09/13/18 Apixaban [Eliquis] 5 mg PO BID 09/13/18 09/13/18 Multivitamins, Thera [Multivitamin 1 tab PO DAILY@1200 09/13/18 09/13/18 (formulary)] Previous Rx's Medication Instructions Recorded DULoxetine HCL [Cymbalta] 30 mg PO DAILY #7 cap 08/22/17 Insulin Glargine [Lantus] 50 unit SQ QAM #0 11/06/17 Pantoprazole [Protonix] 40 mg PO AC-BRKFST 30 Days #30 12/20/17 tablet. Aspirin EC [Ecotrin Low Dose] 81 mg PO DAILY #1 tablet. 02/22/18 Furosemide [Lasix] 60 mg PO DAILY #60 tab 02/22/18 Sodium Bicarbonate Tab 650 mg PO TID #30 tab 02/22/18 Allergies Allergy/AdvReac Type Severity Reaction Status Date / Time Penicillins Allergy Rash/Hives Verified 09/13/18 12:58 Review of Systems ROS Statement: Those systems with pertinent positive or pertinent negative responses have been documented in the HPI. ROS Other: All systems not noted in ROS Statement are negative. Constitutional: Denies: fever Eyes: Denies: eye pain ENT: Denies: ear pain Respiratory: Reports: dyspnea Cardiovascular: Reports: dyspnea on exertion, orthopnea, edema. Denies: chest pain Endocrine: Denies: fatigue Gastrointestinal: Denies: abdominal pain Genitourinary: Denies: dysuria Musculoskeletal: Denies: back pain Skin: Denies: rash Neurological: Denies: weakness Past Medical History Past Medical History: Asthma, Heart Failure, COPD, CVA/TIA, Diabetes Mellitus, Hypertension, Myocardial Infarction ([place]), Pneumonia, Seizure Disorder, Seizure Disorder Additional Past Medical History / Comment(s): CURRENT WOUND TO LEFT FOOT . amputations to ;eft toes in december 2017 . cardiomyopathy. asthma, varicose veins. Diabetic neuropathy in feet. 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 PICC LINE PLACED IN AUGUST 2016 FOR OSTEOMYLITIS BOTH FEET, DR VILLAREAL MANAGED ANTIBIOTICS Last Myocardial Infarction Date:: 11/2013 History of Any Multi-Drug Resistant Organisms: MRSA, VRE, VRE Date of last positivie culture/infection: 2016 MDRO Source:: bilat feet Past Surgical History: Adenoidectomy, AICD, Section, Heart Catheterization, Orthopedic Surgery, Pacemaker, Tonsillectomy Additional Past Surgical History / Comment(s): AICD - [employer]. has pacemaker defibrillator, right great toe amputation 04/2016, LT GREAT TOE, left foot partial amputation Past Anesthesia/Blood Transfusion Reactions: Postoperative Nausea & Vomiting ( PONV) Type of Cardiac Device: Permanent Pacemaker, AICD Device Placement Date:: 2011 Past Psychological History: Bipolar Smoking Status: Current some day smoker Past Alcohol Use History: None Reported Past Drug Use History: None Reported - Past Family History Mother Family Medical History: Deep Vein Thrombosis (DVT) Additional Family Medical History / Comment(s): kidney failure. Father History Unknown: Yes Family Medical History: Cancer General Exam Limitations: no limitations General appearance: alert, in no apparent distress Head exam: Present: atraumatic Eye exam: Present: normal appearance, PERRL ENT exam: Present: normal oropharynx Neck exam: Present: normal inspection Respiratory exam: Present: decreased breath sounds Cardiovascular Exam: Present: regular rate, normal rhythm GI/Abdominal exam: Present: soft. Absent: tenderness Extremities exam: Present: pedal edema, other (Toe amputations). Absent: calf tenderness Back exam: Present: normal inspection Neurological exam: Present: alert Psychiatric exam: Present: normal affect, normal mood Skin exam: Present: normal color Course Vital Signs 09/13/18 09/13/18 11:52 12:53 Temperature 97.5 F L Pulse Rate 102 H 98 Respiratory 22 20 Rate Blood Pressure 132/77 118/86 O2 Sat by Pulse 100 96 Oximetry EKG Findings - EKG Comments: EKG Findings:: Paced rhythm at 99. GA 122. QRS 148. QT 452. QTC 580. [place] indeterminate. Q waves present. Nonspecific ST-T. Medical Decision Making - Medical Decision Making Patient reevaluated and updated. Past has been paged for admission for Dr. Causey. - Lab Data Result diagrams: 09/13/18 12:15 09/13/18 12:15 Lab Results 09/13/18 09/13/18 09/13/18 Range/Units 12:15 12:15 12:15 WBC 8.0 (3.8-10.6) k/uL RBC 4.56 (3.80-5.40) m/uL Hgb 8.8 L (11.4-16.0) gm/dL Hct 30.6 L (34.0-46.0) % MCV 67.2 L (80.0-100.0) fL MCH 19.2 L (25.0-35.0) pg MCHC 28.6 L (31.0-37.0) g/dL RDW 16.7 H (11.5-15.5) % Plt Count 295 (150-450) k/uL Neutrophils % 76 % Lymphocytes % 16 % Monocytes % 4 % Eosinophils % 3 % Basophils % 0 % Neutrophils # 6.1 (1.3-7.7) k/uL Lymphocytes # 1.3 (1.0-4.8) k/uL Monocytes # 0.3 (0-1.0) k/uL Eosinophils # 0.2 (0-0.7) k/uL Basophils # 0.0 (0-0.2) k/uL Hypochromasia Marked Poikilocytosis Slight Anisocytosis Slight Microcytosis Marked PT (9.0-12.0) sec INR (<1.2) APTT (22.0-30.0) sec Sodium 138 (137-145) mmol/L Potassium 4.5 (3.5-5.1) mmol/L Chloride 104 (98-107) mmol/L Carbon Dioxide 20 L (22-30) mmol/L Anion Gap 14 mmol/L BUN 18 H (7-17) mg/dL Creatinine 0.96 (0.52-1.04) mg/dL Est GFR (CKD-EPI)AfAm 83 (>60 ml/min/1.73 sqM) Est GFR (CKD-EPI)NonAf 72 (>60 ml/min/1.73 sqM) Glucose 167 H (74-99) mg/dL Calcium 8.6 (8.4-10.2) mg/dL Total Bilirubin 1.0 (0.2-1.3) mg/dL AST 71 H (14-36) U/L ALT 61 H (9-52) U/L Alkaline Phosphatase 90 (38-126) U/L Total Creatine Kinase 62 (30-135) U/L CK-MB (CK-2) 1.2 (0.0-2.4) ng/mL CK-MB (CK-2) Rel Index 1.9 Troponin I <0.012 (0.000-0.034) ng/mL NT-Pro-B Natriuret Pep pg/mL Total Protein 6.6 (6.3-8.2) g/dL Albumin 3.5 (3.5-5.0) g/dL 09/13/18 09/13/18 Range/Units 12:15 12:15 WBC (3.8-10.6) k/uL RBC (3.80-5.40) m/uL Hgb (11.4-16.0) gm/dL Hct (34.0-46.0) % MCV (80.0-100.0) fL MCH (25.0-35.0) pg MCHC (31.0-37.0) g/dL RDW (11.5-15.5) % Plt Count (150-450) k/uL Neutrophils % % Lymphocytes % % Monocytes % % Eosinophils % % Basophils % % Neutrophils # (1.3-7.7) k/uL Lymphocytes # (1.0-4.8) k/uL Monocytes # (0-1.0) k/uL Eosinophils # (0-0.7) k/uL Basophils # (0-0.2) k/uL Hypochromasia Poikilocytosis Anisocytosis Microcytosis PT 12.3 H (9.0-12.0) sec INR 1.3 H (<1.2) APTT 23.3 (22.0-30.0) sec Sodium (137-145) mmol/L Potassium (3.5-5.1) mmol/L Chloride (98-107) mmol/L Carbon Dioxide (22-30) mmol/L Anion Gap mmol/L BUN (7-17) mg/dL Creatinine (0.52-1.04) mg/dL Est GFR (CKD-EPI)AfAm (>60 ml/min/1.73 sqM) Est GFR (CKD-EPI)NonAf (>60 ml/min/1.73 sqM) Glucose (74-99) mg/dL Calcium (8.4-10.2) mg/dL Total Bilirubin (0.2-1.3) mg/dL AST (14-36) U/L ALT (9-52) U/L Alkaline Phosphatase (38-126) U/L Total Creatine Kinase (30-135) U/L CK-MB (CK-2) (0.0-2.4) ng/mL CK-MB (CK-2) Rel Index Troponin I (0.000-0.034) ng/mL NT-Pro-B Natriuret Pep 2430 pg/mL Total Protein (6.3-8.2) g/dL Albumin (3.5-5.0) g/dL - Radiology Data Radiology results: image reviewed (Chest x-ray shows some cardiomegaly and interstitial edema.) Disposition Clinical Impression: Congestive heart failure Disposition: ADMITTED IP TO THIS [facility] Is patient prescribed a controlled substance at d/c from ED?: No Referrals: Dylan Causey MD [Primary Care Provider] - 1-2 days Decision Time: 14:09
[2018-09-13 12:29] LABS: Anisocytosis Slight; Basophils % (A) 0 %; Eosinophils # (A) 0.2 k/uL (0-0.7); Eosinophils % (A) 3 %; HCT 30.6 % (34.0-46.0); HGB 8.8 gm/dL (11.4-16.0); Hypochromasia Marked; Lymphocytes # (A) 1.3 k/uL (1.0-4.8); Lymphocytes % (A) 16 %; MCH 19.2 pg (25.0-35.0); MCHC 28.6 g/dL (31.0-37.0); MCV 67.2 fL (80.0-100.0); Mean Platelet Volume 7.5; Microcytosis Marked; Monocytes # (A) 0.3 k/uL (0-1.0); Monocytes % (A) 4 %; Neutrophils # (A) 6.1 k/uL (1.3-7.7); Neutrophils % (A) 76 %; Platelet Count 295 k/uL (150-450); Poikilocytosis Slight; RBC 4.56 m/uL (3.80-5.40); RDW 16.7 % (11.5-15.5)
[2018-09-13 12:35] LABS: INR 1.3 (<1.2); Partial Thromboplastin Time 23.3 sec (22.0-30.0); Prothrombin Time 12.3 sec (9.0-12.0)
[2018-09-13 12:39] LABS: Albumin 3.5 g/dL (3.5-5.0); Calcium 8.6 mg/dL (8.4-10.2); Potassium 4.5 mmol/L (3.5-5.1); Total Protein 6.6 g/dL (6.3-8.2)
[2018-09-13 12:47] LABS: Creatine Kinase 62 U/L (30-135)
--- NOTE | 2018-09-13 12:56 | XR ---
EXAMINATION TYPE: XR chest 2V DATE OF EXAM: 09/13/2018 COMPARISON: Prior chest 02/21/2018 HISTORY: Chest pain and shortness of breath TECHNIQUE: Frontal and lateral views of the chest are obtained. FINDINGS: Patient is rotated. Intracardiac defibrillator leads are stable. Heart is enlarged. No pne umothorax or pleural effusion. Bandlike areas of increased attenuation are present bilaterally. Promi nent central vascularity, interstitium. IMPRESSION: Cardiac megaly. Probable atelectasis. Correlate to exclude pulmonary venous hypertension and interstitial edema.
[2018-09-13 13:01] LABS: Creatine Kinase MB 1.2 ng/mL (0.0-2.4); Troponin I <0.012 ng/mL (0.000-0.034)
[2018-09-13] MEDS ORDERED: ASPIRIN 325 MG TAB PO STA (14:12)
[2018-09-13] MEDS ORDERED: ACETAMINOPHEN TAB 500 MG TAB PO STA (15:31)
[2018-09-13] MEDS: NITROGLYCERIN OINT 1 INCH/GM PACKET TOPICAL SCH ×3 (15:38→20:54)
[2018-09-13 17:04] LABS: Glucose,Whole Blood 143 mg/dL (75-99)
[2018-09-13] MEDS: FUROSEMIDE 10 MG/ML 4 ML VIAL IV SCH ×2 (17:58→23:19)
[2018-09-13 20:49] LABS: Glucose,Whole Blood 198 mg/dL (75-99)
[2018-09-13] MEDS: APIXABAN 5 MG TAB PO SCH (20:50)
[2018-09-13] MEDS: CARVEDILOL 12.5 MG TAB PO SCH (20:53)
[2018-09-13] MEDS: SODIUM BICARBONATE TAB 650 MG TAB PO SCH (20:54)
[2018-09-13] MEDS: GABAPENTIN 300 MG CAP PO SCH (20:54)
[2018-09-13] MEDS: INSULIN ASPART 100 UNIT/ML 1 ML 10 ML VIAL SQ SCH (20:54)
--- NOTE | 2018-09-13 23:03 | P.HPIM ---
History of Present Illness H&P Date: 09/13/18 Chief Complaint: Shortness of breath and Worsening leg swelling Patient is a 42-year-old female with a known history of nonischemic cardiomyopathy status post AICD placement, diabetes type 2 insulin-dependent, asthma/COPD, seizure disorder and history of amputation of toes bilateral lower extremity came to ER with complaints of worsening shortness of breath. Patient has been having worsening short of breath last few days mainly last 2 days. Patient does have a history of similar symptoms previously associated with congestive heart failure. Patient also has COPD however has not noticed much wheezing. Patient has noticed some leg swelling without leg discomfort. No chest pain. No fever or chills. Occasional nonproductive cough. Patient denies any black tarry stools. No hematemesis. Denied any recent illnesses or sick contacts. Patient has been having increased weight gain and worsening leg swelling and abdominal girth. Hemoglobin 8.8 Hemoglobin 8.8 BNP 2430 Chest x-ray cardiomegaly and probable atelectasis. Correlate to exclude pulmonary venous hypertension and interstitial edema EKG atrial sensed ventricular paced rhythm Review of Systems Constitutional: Patient denies any fever or chills . No generalized weakness or weight loss. Abdomen: Patient denied nausea vomiting and diarrhea and abdominal pain. Cardiovascular: No chest pain. Worsening shortness of breath and leg swelling. No palpitations.. Respiratory: patient denied any cough is from production. No shortness of breath Neurologic: Patient denied any numbness or tingling headache. Musculoskeletal: Patient denies any complaints of joint swelling or deformity. Skin: Negative Psychiatric: Negative Endocrine: No heat or cold intolerance. No recent weight gain. Genitourinary: No dysuria or hematuria. All other 14 point ROS negative except the above Past Medical History Past Medical History: Asthma, Heart Failure, COPD, CVA/TIA, Diabetes Mellitus, Hypertension, Myocardial Infarction ([place]), Pneumonia, Seizure Disorder, Seizure Disorder Additional Past Medical History / Comment(s): past hx chronic wounds to feet/ toes- amputations to left toes in december 2017 . cardiomyopathy. asthma, varicose veins. Diabetic neuropathy in feet. CVA IN AUGUST 2016 WITH SEIZURES , SOME RESIDUAL MEMORY LOSS. PICC LINE PLACED IN AUGUST 2016 FOR OSTEOMYLITIS BOTH FEET-since removed, DR VILLAREAL MANAGED ANTIBIOTICS Last Myocardial Infarction Date:: 11/2013 History of Any Multi-Drug Resistant Organisms: VRE, VRE Date of last positivie culture/infection: 2016 MDRO Source:: bilat feet Past Surgical History: Adenoidectomy, AICD, Section, Heart Catheterization, Orthopedic Surgery, Pacemaker, Tonsillectomy Additional Past Surgical History / Comment(s): AICD - [employer]. has pacemaker defibrillator, right great toe amputation 04/2016, LT GREAT TOE then left foot partial amputation Past Anesthesia/Blood Transfusion Reactions: Postoperative Nausea & Vomiting ( PONV) Type of Cardiac Device: Permanent Pacemaker, AICD Device Placement Date:: 2011 Smoking Status: Former smoker - Past Family History Mother Family Medical History: Deep Vein Thrombosis (DVT) Additional Family Medical History / Comment(s): kidney failure. Father History Unknown: Yes Family Medical History: Cancer Medications and Allergies Home Medications Medication Instructions Recorded Confirmed Type Carvedilol [Coreg] 25 mg PO BID 03/04/15 09/13/18 History Spironolactone [Aldactone] 25 mg PO DAILY 03/04/15 09/13/18 History acetaZOLAMIDE [Diamox Sequels] 500 mg PO BID 12/03/16 09/13/18 History Insulin Aspart [NovoLOG 20 unit SQ AC-TID 12/17/16 09/13/18 History (formulary)] Albuterol Inhaler [Ventolin Hfa 2 puff INHALATION RT-Q6H PRN 08/07/17 09/13/18 History Inhaler] Gabapentin [Neurontin] 600 mg PO BID 08/19/17 09/13/18 History Insulin Glargine [Lantus] 50 unit SQ QAM #0 11/06/17 09/13/18 Rx Pantoprazole [Protonix] 40 mg PO AC-BRKFST 30 Days #30 12/20/17 09/13/18 Rx tablet. Aspirin EC [Ecotrin Low Dose] 81 mg PO DAILY #1 tablet. 02/22/18 09/13/18 Rx Furosemide [Lasix] 60 mg PO DAILY #60 tab 02/22/18 09/13/18 Rx Sodium Bicarbonate Tab 650 mg PO TID #30 tab 02/22/18 09/13/18 Rx Apixaban [Eliquis] 5 mg PO BID 09/13/18 09/13/18 History Multivitamins, Thera [Multivitamin 1 tab PO DAILY@1200 09/13/18 09/13/18 History (formulary)] Allergies Allergy/AdvReac Type Severity Reaction Status Date / Time Penicillins Allergy Rash/Hives Verified 09/13/18 12:58 Physical Exam Vitals: Vital Signs Temp Pulse Resp BP Pulse Ox 09/13/18 16:21 97.9 F 100 18 118/88 96 09/13/18 14:30 98 18 128/84 95 09/13/18 12:53 98 20 118/86 96 09/13/18 11:52 97.5 F L 102 H 22 132/77 100 Intake and Output 09/13/18 09/13/18 09/13/18 06:59 14:59 22:59 Other: Weight 120.202 kg PHYSICAL EXAMINATION: Patient is lying in the bed comfortably, no acute distress, awake alert and oriented. Morbidly obese. HEENT: Normocephalic. Neck is supple. Pupils reactive. Nostrils clear. Oral cavity is moist. Ears reveal no drainage. Neck reveals no JVD, carotid bruits, or thyromegaly. CHEST EXAMINATION: Trachea is central. Symmetrical expansion. Right basilar crackles. No wheezing no rhonchi Lung nieves clear to auscultation and percussion. CARDIAC: Normal S1, S2 with no gallops. No murmurs ABDOMEN: Soft. Bowel sounds normal. No organomegaly. No abdominal bruits. Extremities: 3+ edema. No clubbing or cyanosis Neurologically awake, alert, oriented x3 with well-coordinated movements. No focal deficits noted Skin: No rash or skin lesions. Psychiatric: Coperative. Nonsuicidal Musculoskeletal: No joint swelling or deformity. Normal range of motion. Results CBC & Chem 7: 09/13/18 12:15 09/13/18 12:15 Labs: Abnormal Lab Results - Last 24 Hours (Table) 09/13/18 09/13/18 09/13/18 Range/Units 12:15 12:15 12:15 Hgb 8.8 L (11.4-16.0) gm/dL Hct 30.6 L (34.0-46.0) % MCV 67.2 L (80.0-100.0) fL MCH 19.2 L (25.0-35.0) pg MCHC 28.6 L (31.0-37.0) g/dL RDW 16.7 H (11.5-15.5) % PT 12.3 H (9.0-12.0) sec INR 1.3 H (<1.2) Carbon Dioxide 20 L (22-30) mmol/L BUN 18 H (7-17) mg/dL Glucose 167 H (74-99) mg/dL AST 71 H (14-36) U/L ALT 61 H (9-52) U/L Thrombosis Risk Factor Assmnt - DVT/VTE Prophylaxis DVT/VTE Prophylaxis: Pharmacologic Prophylaxis ordered Assessment and Plan Assessment: Acute on chronic CHF with systolic dysfunction Nonischemic cardio myopathy status post AICD placement history Asthma/COPD History of CVA/TIA Diabetes type 2 Hypertension Seizure disorder Bilateral lower extremity toe amputation Morbid obesity BMI 41.5 Previous history of smoking Diabetic peripheral neuropathy Varicose veins Family history of heart failure as per patient Plan: Patient will be continued on IV Lasix. Continue with aspirin statins and and beta blockers. Continue with home insulin dose and follow closely. Will check iron profile. Anemia possibly contributing worsening symptoms. Cardiology was consulted for evaluation. Further recommendations based on the clinical course. Prognosis is guarded. Time with Patient: Greater than 30
[2018-09-14 03:51] LABS: Iron Saturation 3.34 (12.00-45.00)
[2018-09-14 06:43] LABS: Anisocytosis Slight; Basophils % (A) 0 %; Eosinophils # (A) 0.2 k/uL (0-0.7); Eosinophils % (A) 3 %; HCT 28.7 % (34.0-46.0); HGB 8.1 gm/dL (11.4-16.0); Hypochromasia Marked; Lymphocytes # (A) 1.9 k/uL (1.0-4.8); Lymphocytes % (A) 28 %; MCH 18.8 pg (25.0-35.0); MCHC 28.1 g/dL (31.0-37.0); MCV 66.8 fL (80.0-100.0); Mean Platelet Volume 6.6; Microcytosis Marked; Monocytes # (A) 0.4 k/uL (0-1.0); Monocytes % (A) 6 %; Neutrophils # (A) 4.2 k/uL (1.3-7.7); Neutrophils % (A) 61 %; Platelet Count 249 k/uL (150-450); Poikilocytosis Slight; RBC 4.29 m/uL (3.80-5.40); RDW 16.6 % (11.5-15.5); WBC 6.9 k/uL (3.8-10.6)
[2018-09-14] MEDS ORDERED: IPRATROPIUM-ALBUTEROL 3 ML NEB INHALATION PRN (06:49)
[2018-09-14 06:52] LABS: Calcium 8.5 mg/dL (8.4-10.2); Potassium 4.4 mmol/L (3.5-5.1)
[2018-09-14 06:53] LABS: Glucose,Whole Blood 159 mg/dL (75-99)
[2018-09-14] MEDS: ACETAMINOPHEN TAB 325 MG TAB PO PRN ×3 (06:56→23:21)
[2018-09-14] MEDS: PANTOPRAZOLE 40 MG TABLET PO SCH (06:56)
[2018-09-14] MEDS: CARVEDILOL 12.5 MG TAB PO SCH ×2 (06:56→17:41)
[2018-09-14] MEDS: INSULIN ASPART 100 UNIT/ML 1 ML 10 ML VIAL SQ SCH ×4 (06:56→20:38)
[2018-09-14] MEDS: IPRATROPIUM-ALBUTEROL 3 ML NEB INHALATION SCH ×4 (08:16→21:47)
[2018-09-14] MEDS: ASPIRIN 325 MG TAB PO SCH (09:00)
[2018-09-14] MEDS: SODIUM BICARBONATE TAB 650 MG TAB PO SCH ×3 (09:00→20:37)
[2018-09-14] MEDS: SPIRONOLACTONE 25 MG TAB PO SCH (09:00)
[2018-09-14] MEDS: APIXABAN 5 MG TAB PO SCH ×2 (09:00→20:37)
[2018-09-14] MEDS: GABAPENTIN 300 MG CAP PO SCH ×2 (09:00→20:37)
[2018-09-14] MEDS: INSULIN DETEMIR 100 UNIT/ML 10 ML VIAL SQ SCH ×2 (09:01→11:13)
[2018-09-14] MEDS: FUROSEMIDE 10 MG/ML 4 ML VIAL IV SCH ×3 (09:01→23:21)
--- NOTE | 2018-09-14 09:20 | P.CRDCN ---
History of Present Illness Consult date: 09/14/18 Requesting physician: Kimo Tejeda Consult reason: congestive heart failure Chief complaint: shortness of breath and leg swelling History of present illness: this is a pleasant 42-year-old female with history of hypertension, diabetes, hyperlipidemia, asthma, nicotine dependence, ischemic cardio myopathy with prior by V AICD implantation, who follows with Dr. VC Roldan in the office. She also sees Dr. Esquivel who placed her defibrillator. Patient presents to the hospital on this occasion with symptoms of one week or greater of progressively worsening shortness of breath and peripheral edema. Positive PND and orthopnea. Mild chills.chest x-ray on admission here showed cardiomegaly. Probable atelectasis. Correlate to exclude pulmonary venous hypertension and interstitial edema.EKG shows atrial sensed V paced rhythm.blood pressure on arrival 132/70 with a heart rate in the 90s, 100% on room air. Temperature 97.5.White blood cell count is normal, hemoglobin 8.8 on admission, 8.1 this morning. Platelet count 295, sodium 140, potassium 4.4, BUN 22, creatinine 1.1.her iron level is 14, iron saturation 3.3, ferritin 4.6, AST 71, ALT 61.troponin 0.012. BNP level 2430.at the time of my examination this morning, patient still complains of feeling short of breath, she states she did not put out much urine through the night last night, complaining of some discomfort in her feet, she does have 2-3+ bilateral peripheral edema. 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 Past Medical History Past Medical History: Asthma, Heart Failure, COPD, CVA/TIA, Diabetes Mellitus, Hypertension, Myocardial Infarction ([place]), Pneumonia, Seizure Disorder, Seizure Disorder Additional Past Medical History / Comment(s): past hx chronic wounds to feet/ toes- amputations to left toes in december 2017 . cardiomyopathy. asthma, varicose veins. Diabetic neuropathy in feet. CVA IN AUGUST 2016 WITH SEIZURES , SOME RESIDUAL MEMORY LOSS. PICC LINE PLACED IN AUGUST 2016 FOR OSTEOMYLITIS BOTH FEET-since removed, DR VILLAREAL MANAGED ANTIBIOTICS Last Myocardial Infarction Date:: 11/2013 History of Any Multi-Drug Resistant Organisms: VRE, VRE Date of last positivie culture/infection: 2017 MDRO Source:: bilat feet Past Surgical History: Adenoidectomy, AICD, Section, Heart Catheterization, Orthopedic Surgery, Pacemaker, Tonsillectomy Additional Past Surgical History / Comment(s): AICD - [employer]. has pacemaker defibrillator, right great toe amputation 04/2016, LT GREAT TOE then left foot partial amputation Past Anesthesia/Blood Transfusion Reactions: Postoperative Nausea & Vomiting ( PONV) Type of Cardiac Device: Permanent Pacemaker, AICD Device Placement Date:: 2011 Smoking Status: Former smoker - Past Family History Mother Family Medical History: Deep Vein Thrombosis (DVT) Additional Family Medical History / Comment(s): kidney failure. Father History Unknown: Yes Family Medical History: Cancer Medications and Allergies Home Medications Medication Instructions Recorded Confirmed Type Carvedilol [Coreg] 25 mg PO BID 03/04/15 09/13/18 History Spironolactone [Aldactone] 25 mg PO DAILY 03/04/15 09/13/18 History acetaZOLAMIDE [Diamox Sequels] 500 mg PO BID 12/03/16 09/13/18 History Insulin Aspart [NovoLOG 20 unit SQ AC-TID 12/17/16 09/13/18 History (formulary)] Albuterol Inhaler [Ventolin Hfa 2 puff INHALATION RT-Q6H PRN 08/07/17 09/13/18 History Inhaler] Gabapentin [Neurontin] 600 mg PO BID 08/19/17 09/13/18 History Insulin Glargine [Lantus] 50 unit SQ QAM #0 11/06/17 09/13/18 Rx Pantoprazole [Protonix] 40 mg PO AC-BRKFST 30 Days #30 12/20/17 09/13/18 Rx tablet. Aspirin EC [Ecotrin Low Dose] 81 mg PO DAILY #1 tablet. 02/22/18 09/13/18 Rx Furosemide [Lasix] 60 mg PO DAILY #60 tab 02/22/18 09/13/18 Rx Sodium Bicarbonate Tab 650 mg PO TID #30 tab 02/22/18 09/13/18 Rx Apixaban [Eliquis] 5 mg PO BID 09/13/18 09/13/18 History Multivitamins, Thera [Multivitamin 1 tab PO DAILY@1200 09/13/18 09/13/18 History (formulary)] Allergies Allergy/AdvReac Type Severity Reaction Status Date / Time Penicillins Allergy Rash/Hives Verified 09/13/18 12:58 Physical Exam Vitals: Vital Signs Temp Pulse Pulse Resp BP BP Pulse Ox 09/14/18 08:22 75 16 09/14/18 08:17 74 16 94 L 09/14/18 04:00 97.8 F 94 18 111/61 96 09/14/18 00:00 97.8 F 95 18 111/66 95 09/13/18 20:00 98.6 F 99 18 140/88 94 L 09/13/18 16:37 96.9 F L 97 18 124/67 95 09/13/18 16:21 97.9 F 100 18 118/88 96 09/13/18 14:30 98 18 128/84 95 09/13/18 12:53 98 20 118/86 96 09/13/18 11:52 97.5 F L 102 H 22 132/77 100 Intake and Output 09/13/18 09/14/18 09/14/18 22:59 06:59 14:59 Intake Total 100 Balance 100 Intake: Oral 100 Other: Voiding Method Toilet Toilet # Voids 1 PHYSICAL EXAMINATION: GENERAL:42-year-old female in no acute distress at the time of my examination HEENT: Head is atraumatic, normocephalic. Pupils equal, round. Sclera anicteric. Conjunctiva are clear. Mucous membranes of the mouth are moist. Neck is supple. There is elevated jugular venous pressure.no carotid bruit is heard. HEART EXAMINATION: [Heart S1, S2 normal. No murmur or gallop heard.] CHEST EXAMINATION:[lungs reveal decreased air exchange throughout with fine wheezing, rales noted to the bases.] ABDOMEN: [ Soft,obese, nontender. Bowel sounds are heard. mild hepatomegaly noted]. EXTREMITIES:[ 1+ peripheral pulses with 2-3+ evidence of peripheral edema bilaterally.toe amputations noted]. NEUROLOGIC [patient is awake, alert and oriented X3.] . Results 09/14/18 05:59 09/14/18 05:59 Cardiac Enzymes 09/13/18 09/13/18 Range/Units 12:15 12:15 AST 71 H (14-36) U/L CK-MB (CK-2) 1.2 (0.0-2.4) ng/mL Troponin I <0.012 (0.000-0.034) ng/mL Coagulation 09/13/18 Range/Units 12:15 PT 12.3 H (9.0-12.0) sec APTT 23.3 (22.0-30.0) sec CBC 09/13/18 09/14/18 Range/Units 12:15 05:59 WBC 8.0 6.9 (3.8-10.6) k/uL RBC 4.56 4.29 (3.80-5.40) m/uL Hgb 8.8 L 8.1 L (11.4-16.0) gm/dL Hct 30.6 L 28.7 L (34.0-46.0) % Plt Count 295 249 (150-450) k/uL Comprehensive Metabolic Panel 09/13/18 09/14/18 Range/Units 12:15 05:59 Sodium 138 140 (137-145) mmol/L Potassium 4.5 4.4 (3.5-5.1) mmol/L Chloride 104 103 (98-107) mmol/L Carbon Dioxide 20 L 24 (22-30) mmol/L BUN 18 H 22 H (7-17) mg/dL Creatinine 0.96 1.11 H (0.52-1.04) mg/dL Glucose 167 H 151 H (74-99) mg/dL Calcium 8.6 8.5 (8.4-10.2) mg/dL AST 71 H (14-36) U/L ALT 61 H (9-52) U/L Alkaline Phosphatase 90 (38-126) U/L Total Protein 6.6 (6.3-8.2) g/dL Albumin 3.5 (3.5-5.0) g/dL Current Medications Generic Name Dose Route Start Last Admin Trade Name Freq PRN Reason Stop Dose Admin Acetaminophen 650 mg 09/14/18 06:48 09/14/18 06:56 Tylenol Tab PO 650 mg Q6HR PRN Administration Fever and/ or Pain Albuterol/Ipratropium 3 ml 09/14/18 08:00 09/14/18 08:16 Duoneb 0.5 Mg-3 Mg/3 Ml Soln INHALATION 3 ml RT-QID JAN Administration Albuterol/Ipratropium 3 ml 09/14/18 06:49 Duoneb 0.5 Mg-3 Mg/3 Ml Soln INHALATION RT-Q2H PRN Shortness Of Breath Or Wheezing Apixaban 5 mg 09/13/18 21:00 09/13/18 20:50 Eliquis PO 5 mg BID [facility] Administration Aspirin 325 mg 09/14/18 09:00 Aspirin PO DAILY [facility] Carvedilol 25 mg 09/13/18 21:00 09/14/18 06:56 Coreg PO 25 mg BID-W/MEALS [facility] Administration Furosemide 40 mg 09/13/18 16:00 09/13/18 23:19 Lasix IV 40 mg Q8HR [facility] Administration Gabapentin 600 mg 09/13/18 21:00 09/13/18 20:54 Neurontin PO 600 mg BID [facility] Administration Insulin Aspart 0 unit 09/13/18 21:00 09/14/18 06:56 Novolog SQ 1 unit ACHS [facility] Administration Protocol Insulin Detemir 50 unit 09/14/18 09:00 Levemir SQ QAM [facility] Multivitamins 1 each 09/14/18 12:00 Theragran PO DAILY@1200 [facility] Pantoprazole Sodium 40 mg 09/14/18 07:30 09/14/18 06:56 Protonix PO 40 mg AC-BRKFST [facility] Administration Sodium Bicarbonate 650 mg 09/13/18 22:00 09/13/18 20:54 Sodium Bicarbonate Tab PO 650 mg TID [facility] Administration Sodium Chloride 10 ml 09/13/18 21:00 09/13/18 20:54 Saline Flush IV 10 ml BID [facility] Administration Spironolactone 25 mg 09/14/18 09:00 Aldactone PO DAILY [facility] Intake and Output 09/13/18 09/14/18 09/14/18 22:59 06:59 14:59 Intake Total 100 Balance 100 Intake: Oral 100 Other: Voiding Method Toilet Toilet # Voids 1 09/14/18 05:59 09/14/18 05:59 EKG Interpretations (text) EKG shows atrial sensed V paced rhythm Assessment and Plan Plan: assessment and plan #1 systolic congestive heart failure acute on chronic, most recent echo was performed in May 2017 which revealed an ejection fraction of 20-25%, severe global hypokinesia of the left ventricle #2 nonischemic cardiomyopathy with prior by V AICD #3 diabetes #4 hypertension #5 hyperlipidemia #6 obesity #7 peripheral neuropathy Plan We will repeat an echocardiogram with Doppler study. Continue IV Lasix, monitor intake and output along with daily weights and daily lytes BUN and creatinine. We will also start the patient on a low-dose of DULCE MARIA inhibitor, continue Coreg, Aldactone.further recommendations to follow. DNP note has been reviewed, I agree with a documented findings and plan of care. Patient was seen and examined.
[2018-09-14] MEDS: MULTIVITAMINS, THERA 1 EACH TAB PO SCH (11:13)
[2018-09-14 11:15] VITALS: BMI 41.5
[2018-09-14 11:33] LABS: Hemoglobin A1C 7.5 % (4.0-6.0)
[2018-09-14 11:48] LABS: Glucose,Whole Blood 203 mg/dL (75-99)
[2018-09-14 17:22] LABS: Glucose,Whole Blood 156 mg/dL (75-99)
--- NOTE | 2018-09-14 18:20 | ECHOF ---
Referral Reason:chf MEASUREMENTS -------- HEIGHT: 170.2 cm WEIGHT: 120.2 kg BP: 111/61 RVIDd: 3.9 cm (< 3.3) IVSd: 0.8 cm (0.6 - 1.1) LVIDd: 6.4 cm (3.9 - 5.3) LVPWd: 1.2 cm (0.6 - 1.1) IVSs: 1.1 cm LVIDs: 6.3 cm LVPWs: 1.2 cm LAESV Index (A-L): 22.28 ml/m Ao Diam: 3.0 cm (2.0 - 3.7) AV Cusp: 2.4 cm (1.5 - 2.6) LA Diam: 4.1 cm (2.7 - 3.8) MV EXCURSION: 14.230 mm (> 18.000) MV EF SLOPE: 73 mm/s (70 - 150) EPSS: 1.9 cm MV E Larry: 1.12 m/s MV DecT: 195 ms MV A Larry: 0.54 m/s MV E/A Ratio: 2.08 RAP: 20.00 mmHg RVSP: 42.93 mmHg FINDINGS -------- Sinus rhythm. Pacerwire seen in RV and RA. AICD This was a technically good study. The left ventricle is severely dilated. There is severe global hypokinesis of LV . Overall left v entricular systolic function is severely impaired with, an EF < 20%. The right ventricle is normal in size and function. Normal LA size by volume 22+/-6 ml/m2. The right atrium is normal in size. The aortic valve is trileaflet, and appears structurally normal. No aortic stenosis or regurgitation. [id number] mitral regurgitation is present. Mild tricuspid regurgitation present. There is mild pulmonary hypertension. The right ventricular systolic pressure, as measured by Doppler, is 42.93mmHg. Trace/mild (physiologic) pulmonic regurgitation. The aortic root size is normal. The inferior vena cava is dilated with no significant inspiratory collapse which is consistent estima jewell right atrial pressure of >20 mmHg. The pericardium is normal. CONCLUSIONS -------- 1. Sinus rhythm. 2. Pacerwire seen in RV and RA. 3. AICD 4. This was a technically good study. 5. The left ventricle is severely dilated. 6. There is severe global hypokinesis of LV . 7. Overall left ventricular systolic function is severely impaired with, an EF < 20%. 8. The right ventricle is normal in size and function. 9. Normal LA size by volume 22+/-6 ml/m2. 10. The right atrium is normal in size. 11. The aortic valve is trileaflet, and appears structurally normal. No aortic stenosis or regurgitat ion. 12. [id number] mitral regurgitation is present. 13. Mild tricuspid regurgitation present. 14. There is mild pulmonary hypertension. 15. The right ventricular systolic pressure, as measured by Doppler, is 42.93mmHg. 16. Trace/mild (physiologic) pulmonic regurgitation. 17. The aortic root size is normal. 18. The inferior vena cava is dilated with no significant inspiratory collapse which is consistent es timated right atrial pressure of >20 mmHg. 19. The pericardium is normal. PANEL INSTRUMENT REPAIRER: Shilpa Castillo RDCS
[2018-09-14 20:36] LABS: Glucose,Whole Blood 163 mg/dL (75-99)
--- NOTE | 2018-09-15 02:09 | P.PN ---
Subjective Progress Note Date: 09/14/18 Principal diagnosis: Acute CHF exacerbation ejection fraction 20% Patient is a 42-year-old female with a known history of nonischemic cardiomyopathy status post AICD placement, diabetes type 2 insulin-dependent, asthma/COPD, seizure disorder and history of amputation of toes bilateral lower extremity came to ER with complaints of worsening shortness of breath. Patient has been having worsening short of breath last few days mainly last 2 days. Patient does have a history of similar symptoms previously associated with congestive heart failure. Patient also has COPD however has not noticed much wheezing. Patient has noticed some leg swelling without leg discomfort. No chest pain. No fever or chills. Occasional nonproductive cough. Patient denies any black tarry stools. No hematemesis. Denied any recent illnesses or sick contacts. Patient has been having increased weight gain and worsening leg swelling and abdominal girth. Hemoglobin 8.8 Hemoglobin 8.8 BNP 2430 Chest x-ray cardiomegaly and probable atelectasis. Correlate to exclude pulmonary venous hypertension and interstitial edema EKG atrial sensed ventricular paced rhythm 09/14/2018 Patient says that her breathing status is slightly improved otherwise having significant bilateral lower extremity swelling. No fever no chills. No complaints of chest pain. Repeat 2-D echocardiogram was ordered. Patient was admitted with lisinopril 2.5 mg daily. Continued on telemetry monitoring. No cough or sputum production. Current medications reviewed. Active Medications Generic Name Dose Route Start Last Admin Trade Name Freq PRN Reason Stop Dose Admin Acetaminophen 650 mg 09/14/18 06:48 09/14/18 23:21 Tylenol Tab PO 650 mg Q6HR PRN Administration Fever and/ or Pain Albuterol/Ipratropium 3 ml 09/14/18 08:00 09/14/18 21:47 Duoneb 0.5 Mg-3 Mg/3 Ml Soln INHALATION 3 ml RT-QID JAN Administration Albuterol/Ipratropium 3 ml 09/14/18 06:49 Duoneb 0.5 Mg-3 Mg/3 Ml Soln INHALATION RT-Q2H PRN Shortness Of Breath Or Wheezing Apixaban 5 mg 09/13/18 21:00 09/14/18 20:37 Eliquis PO 5 mg BID JAN Administration Aspirin 325 mg 09/14/18 09:00 09/14/18 09:00 Aspirin PO 325 mg DAILY JAN Administration Carvedilol 25 mg 09/13/18 21:00 09/14/18 17:41 Coreg PO 25 mg BID-W/MEALS JAN Administration Furosemide 40 mg 09/13/18 16:00 09/14/18 23:21 Lasix IV 40 mg Q8HR JAN Administration Gabapentin 600 mg 09/13/18 21:00 09/14/18 20:37 Neurontin PO 600 mg BID [facility] Administration Insulin Aspart 0 unit 09/13/18 21:00 09/14/18 20:38 Novolog SQ 1 unit ACHS [facility] Administration Protocol Insulin Detemir 50 unit 09/14/18 09:00 09/14/18 11:13 Levemir SQ 50 unit QAM [facility] Administration Lisinopril 2.5 mg 09/15/18 09:00 Zestril PO DAILY [facility] Multivitamins 1 each 09/14/18 12:00 09/14/18 11:13 Theragran PO 1 each DAILY@1200 [facility] Administration Pantoprazole Sodium 40 mg 09/14/18 07:30 09/14/18 06:56 Protonix PO 40 mg AC-[id number] [facility] Administration Sodium Bicarbonate 650 mg 09/13/18 22:00 09/14/18 20:37 Sodium Bicarbonate Tab PO 650 mg TID [facility] Administration Sodium Chloride 10 ml 09/13/18 21:00 09/14/18 20:37 Saline Flush IV 10 ml BID [facility] Administration Spironolactone 25 mg 09/14/18 09:00 09/14/18 09:00 Aldactone PO 25 mg DAILY JAN Administration Objective - Vital Signs Vital signs: Vital Signs Temp 97.6 F 09/14/18 20:00 Pulse 78 09/14/18 21:57 Resp 16 09/14/18 20:00 BP 90/55 09/14/18 20:00 Pulse Ox 96 09/14/18 20:00 Intake & Output 09/14/18 09/14/18 09/15/18 06:59 18:59 06:59 Intake Total 100 0 Output Total 100 Balance 100 -100 0 Weight 120.202 kg Intake: Oral 100 0 Output: Urine 100 Other: Voiding Method Toilet # Voids 1 - Exam PHYSICAL EXAMINATION: Patient is lying in the bed comfortably, no acute distress, awake alert and oriented. Morbidly obese. HEENT: Normocephalic. Neck is supple. Pupils reactive. Nostrils clear. Oral cavity is moist. Ears reveal no drainage. Neck reveals no JVD, carotid bruits, or thyromegaly. CHEST EXAMINATION: Trachea is central. Symmetrical expansion. Right basilar crackles. No wheezing no rhonchi Lung nieves clear to auscultation and percussion. CARDIAC: Normal S1, S2 with no gallops. No murmurs ABDOMEN: Soft. Bowel sounds normal. No organomegaly. No abdominal bruits. Extremities: 3+ edema. No clubbing or cyanosis Neurologically awake, alert, oriented x3 with well-coordinated movements. No focal deficits noted Skin: No rash or skin lesions. Psychiatric: Coperative. Nonsuicidal Musculoskeletal: No joint swelling or deformity. Normal range of motion. - Labs CBC & Chem 7: 09/14/18 05:59 09/14/18 05:59 Labs: Abnormal Lab Results - Last 24 Hours (Table) 09/13/18 09/13/18 09/14/18 Range/Units 12:15 12:15 05:59 Hgb (11.4-16.0) gm/dL Hct (34.0-46.0) % MCV (80.0-100.0) fL MCH (25.0-35.0) pg MCHC (31.0-37.0) g/dL RDW (11.5-15.5) % BUN (7-17) mg/dL Creatinine (0.52-1.04) mg/dL Glucose (74-99) mg/dL POC Glucose (mg/dL) (75-99) mg/dL Hemoglobin A1c 7.5 H (4.0-6.0) % Iron 14 L (50-170) ug/dL Iron Saturation 3.34 L (12.00-45.00) Transferrin 447.0 H (204.0-354.0) mg/dL Ferritin 4.6 L (10.0-291.0) ng/mL 09/14/18 09/14/18 09/14/18 Range/Units 05:59 05:59 06:32 Hgb 8.1 L (11.4-16.0) gm/dL Hct 28.7 L (34.0-46.0) % MCV 66.8 L (80.0-100.0) fL MCH 18.8 L (25.0-35.0) pg MCHC 28.1 L (31.0-37.0) g/dL RDW 16.6 H (11.5-15.5) % BUN 22 H (7-17) mg/dL Creatinine 1.11 H (0.52-1.04) mg/dL Glucose 151 H (74-99) mg/dL POC Glucose (mg/dL) 159 H (75-99) mg/dL Hemoglobin A1c (4.0-6.0) % Iron (50-170) ug/dL Iron Saturation (12.00-45.00) Transferrin (204.0-354.0) mg/dL Ferritin (10.0-291.0) ng/mL 09/14/18 09/14/18 09/14/18 Range/Units 11:46 17:20 20:35 Hgb (11.4-16.0) gm/dL Hct (34.0-46.0) % MCV (80.0-100.0) fL MCH (25.0-35.0) pg MCHC (31.0-37.0) g/dL RDW (11.5-15.5) % BUN (7-17) mg/dL Creatinine (0.52-1.04) mg/dL Glucose (74-99) mg/dL POC Glucose (mg/dL) 203 H 156 H 163 H (75-99) mg/dL Hemoglobin A1c (4.0-6.0) % Iron (50-170) ug/dL Iron Saturation (12.00-45.00) Transferrin (204.0-354.0) mg/dL Ferritin (10.0-291.0) ng/mL Assessment and Plan Assessment: Acute on chronic CHF with systolic dysfunction ejection fraction 20% 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 Continue with aspirin statins and and beta blockers. Added lisinopril. Continue with home insulin dose and follow closely. Anemia possibly contributing worsening symptoms. Cardiology was consulted for evaluation. Further recommendations based on the clinical course. Prognosis is guarded. Time with Patient: Greater than 30
[2018-09-15 05:53] LABS: Glucose,Whole Blood 171 mg/dL (75-99)
[2018-09-15] MEDS: CARVEDILOL 12.5 MG TAB PO SCH ×2 (06:18→18:57)
[2018-09-15] MEDS: INSULIN ASPART 100 UNIT/ML 1 ML 10 ML VIAL SQ SCH ×4 (06:18→21:30)
[2018-09-15] MEDS: PANTOPRAZOLE 40 MG TABLET PO SCH (06:18)
[2018-09-15] MEDS: ASPIRIN 325 MG TAB PO SCH (08:37)
[2018-09-15] MEDS: GABAPENTIN 300 MG CAP PO SCH ×2 (08:37→20:13)
[2018-09-15] MEDS: SODIUM BICARBONATE TAB 650 MG TAB PO SCH ×3 (08:37→21:30)
[2018-09-15] MEDS: SPIRONOLACTONE 25 MG TAB PO SCH (08:37)
[2018-09-15] MEDS: LISINOPRIL 2.5 MG TAB PO SCH (08:37)
[2018-09-15] MEDS: APIXABAN 5 MG TAB PO SCH ×2 (08:38→20:13)
[2018-09-15] MEDS: ACETAMINOPHEN TAB 325 MG TAB PO PRN ×2 (08:38→19:17)
[2018-09-15] MEDS: IPRATROPIUM-ALBUTEROL 3 ML NEB INHALATION SCH ×4 (09:20→18:58)
[2018-09-15] MEDS: SODIUM FERRIC GLUCONAT-SUCROSE 125 MG in SODIUM CHLORIDE 0.9% 100 ML IVPB SCH (10:26)
[2018-09-15] MEDS: INSULIN DETEMIR 100 UNIT/ML 10 ML VIAL SQ SCH (10:26)
[2018-09-15] MEDS ORDERED: METOLAZONE 5 MG TAB PO STA (11:11)
[2018-09-15] MEDS: FUROSEMIDE 10 MG/ML 4 ML VIAL IV SCH ×3 (11:32→23:02)
[2018-09-15 12:08] LABS: Glucose,Whole Blood 163 mg/dL (75-99)
--- NOTE | 2018-09-15 12:13 | P.PN ---
Subjective Progress Note Date: 09/15/18 Principal diagnosis: CHF This is a pleasant 42-year-old female with history of hypertension, diabetes, hyperlipidemia, asthma, nicotine dependence, ischemic cardio myopathy with prior by V AICD implantation, who follows with Dr. VC Roldan in the office. She also sees Dr. Esquivel who placed her defibrillator. Patient presents to the hospital on this occasion with symptoms of one week or greater of progressively worsening shortness of breath and peripheral edema. Positive PND and orthopnea. Mild chills.chest x-ray on admission here showed cardiomegaly. Probable atelectasis. Correlate to exclude pulmonary venous hypertension and interstitial edema.EKG shows atrial sensed V paced rhythm.blood pressure on arrival 132/70 with a heart rate in the 90s, 100% on room air. Temperature 97.5.White blood cell count is normal, hemoglobin 8.8 on admission, 8.1 this morning. Platelet count 295, sodium 140, potassium 4.4, BUN 22, creatinine 1.1.her iron level is 14, iron saturation 3.3, ferritin 4.6, AST 71, ALT 61.troponin 0.012. BNP level 2430.at the time of my examination this morning, patient still complains of feeling short of breath, she states she did not put out much urine through the night last night, complaining of some discomfort in her feet, she does have 2-3+ bilateral peripheral edema. 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 09/15/2018 Patient was seen and examined this morning, she has not put out much urine through the night last night and continues to feel short of breath and swollen.blood pressure this morning 112/60 with a heart rate in the 80s, 97% on room air.documented weight shows that it is not from yesterday.today's labs are yet pending. Hemoglobin yesterday was 8.1, patient is receiving Venofer today. Objective - Vital Signs Vital signs: Vital Signs Temp 97.7 F 09/15/18 03:38 Pulse 76 09/15/18 09:32 Resp 16 09/15/18 03:38 BP 113/64 09/15/18 03:38 Pulse Ox 97 09/15/18 03:38 Intake & Output 09/14/18 09/15/18 09/15/18 18:59 06:59 18:59 Intake Total 400 240 Output Total 100 500 Balance -100 -100 240 Weight 120.202 kg 134.4 kg Intake: Oral 400 240 Output: Urine 100 500 Other: Voiding Method Toilet - Exam pHYSICAL EXAMINATION: GENERAL:42-year-old female in no acute distress at the time of my examination HEENT: Head is atraumatic, normocephalic. Pupils equal, round. Sclera anicteric. Conjunctiva are clear. Mucous membranes of the mouth are moist. Neck is supple. There is elevated jugular venous pressure.no carotid bruit is heard. HEART EXAMINATION: [Heart S1, S2 normal. No murmur or gallop heard.] CHEST EXAMINATION:[lungs reveal decreased air exchange throughout with fine wheezing, rales noted to the bases.] ABDOMEN: [ Soft,obese, nontender. Bowel sounds are heard. mild hepatomegaly noted]. EXTREMITIES:[ 1+ peripheral pulses with 2-3+ evidence of peripheral edema bilaterally.toe amputations noted]. NEUROLOGIC [patient is awake, alert and oriented X3.] - Labs CBC & Chem 7: 09/14/18 05:59 09/14/18 05:59 Labs: Abnormal Lab Results - Last 24 Hours (Table) 09/14/18 09/14/18 09/15/18 Range/Units 17:20 20:35 05:51 POC Glucose (mg/dL) 156 H 163 H 171 H (75-99) mg/dL Assessment and Plan Plan: assessment and plan #1 systolic congestive heart failure acute on chronic, most recent echo was performed in May 2017 which revealed an ejection fraction of 20-25%, severe global hypokinesia of the left ventricle #2 nonischemic cardiomyopathy with prior by V AICD #3 diabetes #4 hypertension #5 hyperlipidemia #6 obesity #7 peripheral neuropathy Plan Echocardiogram with Doppler study was repeated, reveals an ejection fraction of less than 20%. Mild to moderate mitral regurg.we will continue IV Lasix, give the patient one time dose of Zaroxolyn DNP note has been reviewed, I agree with a documented findings and plan of care. Patient was seen and examined.
[2018-09-15 13:03] LABS: Calcium 8.8 mg/dL (8.4-10.2); Potassium 4.3 mmol/L (3.5-5.1)
--- NOTE | 2018-09-15 13:30 | P.PN ---
Subjective Progress Note Date: 09/15/18 Principal diagnosis: CHF 09/15/2018 Patient was seen and examined this morning, she has not put out much urine through the night last night and continues to feel short of breath and swollen.blood pressure this morning 112/60 with a heart rate in the 80s, 97% on room air.documented weight shows that it is not from yesterday.today's labs are yet pending. Hemoglobin yesterday was 8.1, patient is receiving Venofer today. Objective - Vital Signs Vital signs: Vital Signs Temp 97.7 F 09/15/18 03:38 Pulse 76 09/15/18 09:32 Resp 16 09/15/18 03:38 BP 113/64 09/15/18 03:38 Pulse Ox 97 09/15/18 03:38 Intake & Output 09/14/18 09/15/18 09/15/18 18:59 06:59 18:59 Intake Total 400 240 Output Total 100 500 Balance -100 -100 240 Weight 120.202 kg 134.4 kg Intake: Oral 400 240 Output: Urine 100 500 Other: Voiding Method Toilet - Exam GENERAL:42-year-old female in no acute distress at the time of my examination HEENT: Head is atraumatic, normocephalic. Pupils equal, round. Sclera anicteric. Conjunctiva are clear. Mucous membranes of the mouth are moist. Neck is supple. There is elevated jugular venous pressure.no carotid bruit is heard. HEART EXAMINATION: [Heart S1, S2 normal. No murmur or gallop heard.] CHEST EXAMINATION:[lungs reveal decreased air exchange throughout with fine wheezing, rales noted to the bases.] ABDOMEN: [ Soft,obese, nontender. Bowel sounds are heard. mild hepatomegaly noted]. EXTREMITIES:[ 1+ peripheral pulses with 2-3+ evidence of peripheral edema bilaterally.toe amputations noted]. NEUROLOGIC [patient is awake, alert and oriented X3.] - Labs CBC & Chem 7: 09/14/18 05:59 09/15/18 12:14 Labs: Abnormal Lab Results - Last 24 Hours (Table) 09/14/18 09/14/18 09/15/18 Range/Units 17:20 20:35 05:51 BUN (7-17) mg/dL Creatinine (0.52-1.04) mg/dL Glucose (74-99) mg/dL POC Glucose (mg/dL) 156 H 163 H 171 H (75-99) mg/dL 09/15/18 09/15/18 Range/Units 12:05 12:14 BUN 32 H (7-17) mg/dL Creatinine 1.30 H (0.52-1.04) mg/dL Glucose 156 H (74-99) mg/dL POC Glucose (mg/dL) 163 H (75-99) mg/dL Assessment and Plan Assessment: #1 systolic congestive heart failure acute on chronic, most recent echo was performed in May 2017 which revealed an ejection fraction of 20-25%, severe global hypokinesia of the left ventricle #2 nonischemic cardiomyopathy with prior by V AICD #3 diabetes #4 hypertension #5 hyperlipidemia #6 obesity #7 peripheral neuropathy Echocardiogram with Doppler study was repeated, reveals an ejection fraction of less than 20%. Mild to moderate mitral regurg.we will continue IV Lasix, give the patient one time dose of Zaroxolyn. Continue with aspirin statins and and beta blockers. Added lisinopril. Continue with home insulin dose and follow closely. Anemia possibly contributing worsening symptoms. Cardiology was consulted for evaluation. Further recommendations based on the clinical course. Prognosis is guarded. Time with Patient: Greater than 30
[2018-09-15] MEDS: MULTIVITAMINS, THERA 1 EACH TAB PO SCH (13:32)
[2018-09-15 16:23] LABS: Glucose,Whole Blood 145 mg/dL (75-99)
[2018-09-15 20:46] LABS: Glucose,Whole Blood 177 mg/dL (75-99)
[2018-09-15 23:20] LABS: Glucose,Whole Blood 130 mg/dL (75-99)
[2018-09-16] MEDS: ACETAMINOPHEN TAB 325 MG TAB PO PRN ×2 (02:01→20:39)
[2018-09-16 06:36] LABS: Glucose,Whole Blood 93 mg/dL (75-99)
[2018-09-16] MEDS: INSULIN ASPART 100 UNIT/ML 1 ML 10 ML VIAL SQ SCH ×4 (06:49→20:38)
[2018-09-16] MEDS: PANTOPRAZOLE 40 MG TABLET PO SCH (06:52)
[2018-09-16] MEDS: CARVEDILOL 12.5 MG TAB PO SCH ×2 (06:52→17:06)
[2018-09-16 07:04] LABS: Anisocytosis Slight; Basophils % (A) 0 %; Eosinophils # (A) 0.2 k/uL (0-0.7); Eosinophils % (A) 4 %; HCT 26.4 % (34.0-46.0); HGB 8.1 gm/dL (11.4-16.0); Hypochromasia Marked; Lymphocytes # (A) 1.8 k/uL (1.0-4.8); Lymphocytes % (A) 32 %; MCH 19.9 pg (25.0-35.0); MCHC 30.5 g/dL (31.0-37.0); MCV 65.4 fL (80.0-100.0); Mean Platelet Volume 6.9; Microcytosis Marked; Monocytes # (A) 0.4 k/uL (0-1.0); Monocytes % (A) 7 %; Neutrophils % (A) 54 %; Platelet Count 226 k/uL (150-450); Poikilocytosis Slight; RBC 4.04 m/uL (3.80-5.40); RDW 16.6 % (11.5-15.5); WBC 5.6 k/uL (3.8-10.6)
[2018-09-16 07:19] LABS: Calcium 8.7 mg/dL (8.4-10.2); Potassium 3.5 mmol/L (3.5-5.1)
[2018-09-16] MEDS: FUROSEMIDE 10 MG/ML 4 ML VIAL IV SCH ×2 (08:43→16:12)
[2018-09-16] MEDS: APIXABAN 5 MG TAB PO SCH ×2 (08:43→20:38)
[2018-09-16] MEDS: GABAPENTIN 300 MG CAP PO SCH ×2 (08:43→20:38)
[2018-09-16] MEDS: INSULIN DETEMIR 100 UNIT/ML 10 ML VIAL SQ SCH (08:43)
[2018-09-16] MEDS: SODIUM BICARBONATE TAB 650 MG TAB PO SCH ×3 (08:44→22:13)
[2018-09-16] MEDS: LISINOPRIL 2.5 MG TAB PO SCH ×2 (08:44→20:38)
[2018-09-16] MEDS: IPRATROPIUM-ALBUTEROL 3 ML NEB INHALATION SCH ×4 (09:25→21:22)
[2018-09-16] MEDS: SODIUM FERRIC GLUCONAT-SUCROSE 125 MG in SODIUM CHLORIDE 0.9% 100 ML IVPB SCH (09:33)
[2018-09-16] MEDS: SPIRONOLACTONE 25 MG TAB PO SCH (09:33)
[2018-09-16 11:50] LABS: Glucose,Whole Blood 205 mg/dL (75-99)
[2018-09-16] MEDS: MULTIVITAMINS, THERA 1 EACH TAB PO SCH (12:33)
--- NOTE | 2018-09-16 12:40 | P.PN ---
Subjective Progress Note Date: 09/16/18 Principal diagnosis: CHF This is a pleasant 42-year-old female with history of hypertension, diabetes, hyperlipidemia, asthma, nicotine dependence, ischemic cardio myopathy with prior Biventricular AICD implantation which was noted in [place] to be at [facility], pending generator change. She follows with Dr. VC Roldan in the office. She also sees Dr. Esquivel who placed her defibrillator. Patient presents to the hospital on this occasion with symptoms of one week or greater of progressively worsening shortness of breath and peripheral edema. Positive PND and orthopnea. Mild chills.chest x-ray on admission here showed cardiomegaly. Probable atelectasis. Correlate to exclude pulmonary venous hypertension and interstitial edema.EKG shows atrial sensed biventricular paced rhythm. She was given one dose of metolazone yesterday and has diuresed well overnight. Weight loss of >4kg. Objective - Vital Signs Vital signs: Vital Signs Temp 97.6 F 09/16/18 11:53 Pulse 75 09/16/18 11:53 Resp 20 09/16/18 11:53 BP 110/60 09/16/18 11:53 Pulse Ox 98 09/16/18 11:53 Intake & Output 09/15/18 09/16/18 09/16/18 18:59 06:59 18:59 Intake Total 840 1000 Output Total 1300 400 Balance 840 -300 -400 Weight 129.8 kg Intake: Oral 840 1000 Output: Urine 1300 400 Other: Voiding Method Toilet Toilet # Voids 3 3 - Exam PHYSICAL EXAMINATION: HEENT: Head is atraumatic, normocephalic. Pupils equal, round. Neck is supple. There is elevated jugular venous pressure. HEART EXAMINATION: Heart sounds regular, S1 and S2 normal. No murmur or gallop heard. CHEST EXAMINATION: Lungs reveal improved air entry with bibasilar crackles. No chest wall tenderness is noted on palpation or with deep breathing. ABDOMEN: Soft, paced, nontender. Bowel sounds are heard. No organomegaly noted. EXTREMITIES: 1+ peripheral pulses with evidence of 2+ peripheral edema and no calf tenderness noted. Toe amputations noted. NEUROLOGIC patient is awake, alert and oriented x3. . - Labs CBC & Chem 7: 09/16/18 06:19 09/16/18 06:19 Labs: Abnormal Lab Results - Last 24 Hours (Table) 09/15/18 09/15/18 09/15/18 Range/Units 12:14 16:18 20:37 Hgb (11.4-16.0) gm/dL Hct (34.0-46.0) % MCV (80.0-100.0) fL MCH (25.0-35.0) pg MCHC (31.0-37.0) g/dL RDW (11.5-15.5) % BUN 32 H (7-17) mg/dL Creatinine 1.30 H (0.52-1.04) mg/dL Glucose 156 H (74-99) mg/dL POC Glucose (mg/dL) 145 H 177 H (75-99) mg/dL 09/15/18 09/16/18 09/16/18 Range/Units 23:00 06:19 06:19 Hgb 8.1 L (11.4-16.0) gm/dL Hct 26.4 L (34.0-46.0) % MCV 65.4 L (80.0-100.0) fL MCH 19.9 L (25.0-35.0) pg MCHC 30.5 L (31.0-37.0) g/dL RDW 16.6 H (11.5-15.5) % BUN 32 H (7-17) mg/dL Creatinine 1.32 H (0.52-1.04) mg/dL Glucose (74-99) mg/dL POC Glucose (mg/dL) 130 H (75-99) mg/dL 09/16/18 Range/Units 11:45 Hgb (11.4-16.0) gm/dL Hct (34.0-46.0) % MCV (80.0-100.0) fL MCH (25.0-35.0) pg MCHC (31.0-37.0) g/dL RDW (11.5-15.5) % BUN (7-17) mg/dL Creatinine (0.52-1.04) mg/dL Glucose (74-99) mg/dL POC Glucose (mg/dL) 205 H (75-99) mg/dL Assessment and Plan Assessment: #1 systolic congestive heart failure acute on chronic, most recent echo was performed in May 2017 which revealed an ejection fraction of 20-25%, severe global hypokinesia of the left ventricle #2 nonischemic cardiomyopathy with prior by V AICD #3 diabetes #4 hypertension #5 hyperlipidemia #6 obesity #7 peripheral neuropathy Plan: From cardiology's perspective , we will continue dose of IV Lasix. She did have some hypotension this morning, we will change lisinopril to bedtime. We will continue to follow the patient. Continue to monitor daily weights, intake and output as well as renal function and electrolytes. Further Recommendations to follow. 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 Patient was seen and examined.
[2018-09-16] MEDS ORDERED: NITROGLYCERIN SL TABS 0.4 MG TAB SUBLINGUAL STA (16:01)
--- NOTE | 2018-09-16 16:09 | P.PN ---
Subjective Progress Note Date: 09/16/18 Principal diagnosis: CHF 09/15/2018 Patient was seen and examined this morning, she has not put out much urine through the night last night and continues to feel short of breath and swollen.blood pressure this morning 112/60 with a heart rate in the 80s, 97% on room air.documented weight shows that it is not from yesterday.today's labs are yet pending. Hemoglobin yesterday was 8.1, patient is receiving Venofer today. 09/16/2018 Patient is seen for follow-up in selective care unit; patient was given a dose of metolazone yesterday resulting in diuresis causing weight loss of more than 4 KG; patient had an episode of hypotension this morning; cardiology service is following and have changed timing of lisinopril to bedtime; plan is to continue to monitor daily weights, strict JUVENCIO's, renal function and electrolytes; further recommendations based on clinical response Objective - Vital Signs Vital signs: Vital Signs Temp 97.6 F 09/16/18 11:53 Pulse 75 09/16/18 11:53 Resp 20 09/16/18 11:53 BP 110/60 09/16/18 11:53 Pulse Ox 98 09/16/18 11:53 Intake & Output 09/15/18 09/16/18 09/16/18 18:59 06:59 18:59 Intake Total 840 1000 100 Output Total 1300 400 Balance 840 -300 -300 Weight 129.8 kg Intake: Intake, IV Titration 100 Amount Sodium Ferric Gluconat- 100 Sucrose 125 mg In Sodium Chloride 0.9% 100 ml @ 100 mls/hr IVPB DAILY [facility] Rx#:[id number] Oral 840 1000 Output: Urine 1300 400 Other: Voiding Method Toilet Toilet # Voids 3 2 - Exam GENERAL:42-year-old female in no acute distress at the time of my examination HEENT: Head is atraumatic, normocephalic. Pupils equal, round. Sclera anicteric. Conjunctiva are clear. Mucous membranes of the mouth are moist. Neck is supple. There is elevated jugular venous pressure.no carotid bruit is heard. HEART EXAMINATION: [Heart S1, S2 normal. No murmur or gallop heard.] CHEST EXAMINATION:[lungs reveal decreased air exchange throughout with fine wheezing, rales noted to the bases.] ABDOMEN: [ Soft,obese, nontender. Bowel sounds are heard. mild hepatomegaly noted]. EXTREMITIES:[ 1+ peripheral pulses with 2-3+ evidence of peripheral edema bilaterally.toe amputations noted]. NEUROLOGIC [patient is awake, alert and oriented X3.] - Labs CBC & Chem 7: 09/16/18 06:19 09/16/18 06:19 Labs: Abnormal Lab Results - Last 24 Hours (Table) 09/15/18 09/15/18 09/15/18 Range/Units 16:18 20:37 23:00 Hgb (11.4-16.0) gm/dL Hct (34.0-46.0) % MCV (80.0-100.0) fL MCH (25.0-35.0) pg MCHC (31.0-37.0) g/dL RDW (11.5-15.5) % BUN (7-17) mg/dL Creatinine (0.52-1.04) mg/dL POC Glucose (mg/dL) 145 H 177 H 130 H (75-99) mg/dL 09/16/18 09/16/18 09/16/18 Range/Units 06:19 06:19 11:45 Hgb 8.1 L (11.4-16.0) gm/dL Hct 26.4 L (34.0-46.0) % MCV 65.4 L (80.0-100.0) fL MCH 19.9 L (25.0-35.0) pg MCHC 30.5 L (31.0-37.0) g/dL RDW 16.6 H (11.5-15.5) % BUN 32 H (7-17) mg/dL Creatinine 1.32 H (0.52-1.04) mg/dL POC Glucose (mg/dL) 205 H (75-99) mg/dL Assessment and Plan Assessment: #1 systolic congestive heart failure acute on chronic, most recent echo was performed in May 2017 which revealed an ejection fraction of 20-25%, severe global hypokinesia of the left ventricle #2 nonischemic cardiomyopathy with prior by V AICD #3 diabetes #4 hypertension #5 hyperlipidemia #6 obesity #7 peripheral neuropathy Echocardiogram with Doppler study was repeated, reveals an ejection fraction of less than 20%. Mild to moderate mitral regurg.we will continue IV Lasix, give the patient one time dose of Zaroxolyn. Continue with aspirin statins and and beta blockers. Added lisinopril. Continue with home insulin dose and follow closely. Anemia possibly contributing worsening symptoms. Cardiology was consulted for evaluation. Further recommendations based on the clinical course. Prognosis is guarded. Time with Patient: Greater than 30
[2018-09-16 16:31] LABS: Glucose,Whole Blood 147 mg/dL (75-99)
[2018-09-16 20:29] LABS: Glucose,Whole Blood 136 mg/dL (75-99)
[2018-09-17] MEDS: FUROSEMIDE 10 MG/ML 4 ML VIAL IV SCH ×3 (00:10→20:07)
[2018-09-17 05:58] LABS: Glucose,Whole Blood 99 mg/dL (75-99)
[2018-09-17] MEDS: INSULIN ASPART 100 UNIT/ML 1 ML 10 ML VIAL SQ SCH ×4 (06:38→20:34)
[2018-09-17] MEDS: PANTOPRAZOLE 40 MG TABLET PO SCH (06:40)
[2018-09-17] MEDS: CARVEDILOL 12.5 MG TAB PO SCH ×2 (06:40→17:24)
[2018-09-17 07:23] LABS: Calcium 8.8 mg/dL (8.4-10.2); Potassium 3.6 mmol/L (3.5-5.1)
[2018-09-17 07:26] LABS: Anisocytosis Slight; Basophils % (A) 1 %; Eosinophils # (A) 0.3 k/uL (0-0.7); Eosinophils % (A) 4 %; Hypochromasia Marked; Lymphocytes # (A) 2.3 k/uL (1.0-4.8); Lymphocytes % (A) 36 %; MCH 19.3 pg (25.0-35.0); MCHC 29.6 g/dL (31.0-37.0); MCV 65.4 fL (80.0-100.0); Mean Platelet Volume 8.6; Microcytosis Marked; Monocytes # (A) 0.5 k/uL (0-1.0); Monocytes % (A) 7 %; Neutrophils # (A) 3.3 k/uL (1.3-7.7); Neutrophils % (A) 50 %; Platelet Count 237 k/uL (150-450); Poikilocytosis Slight; RBC 4.13 m/uL (3.80-5.40); RDW 17.6 % (11.5-15.5); WBC 6.5 k/uL (3.8-10.6)
[2018-09-17] MEDS: SODIUM BICARBONATE TAB 650 MG TAB PO SCH ×3 (09:21→20:07)
[2018-09-17] MEDS: INSULIN DETEMIR 100 UNIT/ML 10 ML VIAL SQ SCH (09:21)
[2018-09-17] MEDS: SPIRONOLACTONE 25 MG TAB PO SCH (09:21)
[2018-09-17] MEDS: APIXABAN 5 MG TAB PO SCH ×2 (09:21→20:06)
[2018-09-17] MEDS: GABAPENTIN 300 MG CAP PO SCH ×2 (09:21→20:12)
[2018-09-17] MEDS: IPRATROPIUM-ALBUTEROL 3 ML NEB INHALATION SCH ×4 (09:22→19:59)
[2018-09-17 09:23] LABS: Large Platelets Present
[2018-09-17] MEDS: SODIUM FERRIC GLUCONAT-SUCROSE 125 MG in SODIUM CHLORIDE 0.9% 100 ML IVPB SCH (09:41)
[2018-09-17 12:03] LABS: Glucose,Whole Blood 142 mg/dL (75-99)
[2018-09-17] MEDS: MULTIVITAMINS, THERA 1 EACH TAB PO SCH (12:49)
--- NOTE | 2018-09-17 13:14 | P.PN ---
Subjective Progress Note Date: 09/17/18 Principal diagnosis: Congestive heart failure This is a pleasant 42-year-old female with history of hypertension, diabetes, hyperlipidemia, asthma, nicotine dependence, ischemic cardio myopathy with prior Biventricular AICD [facility], pending generator change. She follows with Dr. VC Roldan in the office. She also sees Dr. Esquivel who placed her defibrillator. Patient presents to the hospital on this occasion with symptoms of one week or greater of progressively worsening shortness of breath and peripheral edema. Positive PND and orthopnea. I'll follow-up with the patient today, 09/17/2018, she feels better in terms of shortness of breath but she continues to have bilateral lower extremities edema. She continues to be on Lasix IV at 40 mg 3 times a day. The kidney function is slightly worse and because of that I would decrease the dose to 40 mg by mouth twice a day. We will continue monitor the kidney function and electrolytes and continue following up with the patient for possible discharge tomorrow. Objective - Vital Signs Vital signs: Vital Signs Temp 97.7 F 09/17/18 12:00 Pulse 76 09/17/18 12:47 Resp 20 09/17/18 12:00 BP 114/66 09/17/18 12:00 Pulse Ox 97 09/17/18 12:00 Intake & Output 09/16/18 09/17/18 09/17/18 18:59 06:59 18:59 Intake Total 322 650 Output Total 400 Balance -78 650 Weight 130.2 kg Intake: Intake, IV Titration 100 Amount Sodium Ferric Gluconat- 100 Sucrose 125 mg In Sodium Chloride 0.9% 100 ml @ 100 mls/hr IVPB DAILY [facility] Rx#:[id number] Oral 222 650 Output: Urine 400 Other: Voiding Method Toilet # Voids 2 2 - Constitutional General appearance: Present: no acute distress - Respiratory Respiratory: bilateral: diminished - Cardiovascular Rhythm: regular Heart sounds: normal: S1, S2 - Labs CBC & Chem 7: 09/17/18 06:23 09/17/18 06:23 Labs: Abnormal Lab Results - Last 24 Hours (Table) 09/16/18 09/16/18 09/17/18 Range/Units 16:23 20:09 06:23 Hgb (11.4-16.0) gm/dL Hct (34.0-46.0) % MCV (80.0-100.0) fL MCH (25.0-35.0) pg MCHC (31.0-37.0) g/dL RDW (11.5-15.5) % Chloride 95 L (98-107) mmol/L Carbon Dioxide 34 H (22-30) mmol/L BUN 34 H (7-17) mg/dL Creatinine 1.38 H (0.52-1.04) mg/dL POC Glucose (mg/dL) 147 H 136 H (75-99) mg/dL 09/17/18 09/17/18 Range/Units 06:23 11:41 Hgb 8.0 L (11.4-16.0) gm/dL Hct 27.0 L (34.0-46.0) % MCV 65.4 L (80.0-100.0) fL MCH 19.3 L (25.0-35.0) pg MCHC 29.6 L (31.0-37.0) g/dL RDW 17.6 H (11.5-15.5) % Chloride (98-107) mmol/L Carbon Dioxide (22-30) mmol/L BUN (7-17) mg/dL Creatinine (0.52-1.04) mg/dL POC Glucose (mg/dL) 142 H (75-99) mg/dL Assessment and Plan Assessment: Assessment #1 congestive heart failure exacerbation secondary to systolic dysfunction #2 known nonischemic cardiomyopathy #3 status post AICD #4 multiple comorbid conditions Plan #1 decrease the dose of Lasix to 40 mg by mouth twice a day #2 continue monitor the function and electrolytes #3 possible discharge in the next 24 hours.
--- NOTE | 2018-09-17 16:38 | P.PN ---
Subjective Progress Note Date: 09/17/18 Principal diagnosis: CHF 09/15/2018 Patient was seen and examined this morning, she has not put out much urine through the night last night and continues to feel short of breath and swollen.blood pressure this morning 112/60 with a heart rate in the 80s, 97% on room air.documented weight shows that it is not from yesterday.today's labs are yet pending. Hemoglobin yesterday was 8.1, patient is receiving Venofer today. 09/16/2018 Patient is seen for follow-up in selective care unit; patient was given a dose of metolazone yesterday resulting in diuresis causing weight loss of more than 4 KG; patient had an episode of hypotension this morning; cardiology service is following and have changed timing of lisinopril to bedtime; plan is to continue to monitor daily weights, strict JUVENCIO's, renal function and electrolytes; further recommendations based on clinical response 09/17/2018; Patient is seen and evaluated in the room at bedside; cardiology service is following and is recommending at such; she feels better in terms of shortness of breath but she continues to have bilateral lower extremities edema. She continues to be on Lasix IV at 40 mg 3 times a day. The kidney function is slightly worse and because of that I would decrease the dose to 40 mg by mouth twice a day. We will continue monitor the kidney function and electrolytes and continue following up with the patient for possible discharge tomorrow. Objective - Vital Signs Vital signs: Vital Signs Temp 97.6 F 09/17/18 16:00 Pulse 76 09/17/18 16:00 Resp 20 09/17/18 16:00 BP 115/69 09/17/18 16:00 Pulse Ox 99 09/17/18 16:00 Intake & Output 09/16/18 09/17/18 09/17/18 18:59 06:59 18:59 Intake Total 322 650 Output Total 400 Balance -78 650 Weight 130.2 kg Intake: Intake, IV Titration 100 Amount Sodium Ferric Gluconat- 100 Sucrose 125 mg In Sodium Chloride 0.9% 100 ml @ 100 mls/hr IVPB DAILY [facility] Rx#:[id number] Oral 222 650 Output: Urine 400 Other: Voiding Method Toilet # Voids 2 2 3 - Exam GENERAL:42-year-old female in no acute distress at the time of my examination HEENT: Head is atraumatic, normocephalic. Pupils equal, round. Sclera anicteric. Conjunctiva are clear. Mucous membranes of the mouth are moist. Neck is supple. There is elevated jugular venous pressure.no carotid bruit is heard. HEART EXAMINATION: [Heart S1, S2 normal. No murmur or gallop heard.] CHEST EXAMINATION:[lungs reveal decreased air exchange throughout with fine wheezing, rales noted to the bases.] ABDOMEN: [ Soft,obese, nontender. Bowel sounds are heard. mild hepatomegaly noted]. EXTREMITIES:[ 1+ peripheral pulses with 2-3+ evidence of peripheral edema bilaterally.toe amputations noted]. NEUROLOGIC [patient is awake, alert and oriented X3.] - Labs CBC & Chem 7: 09/17/18 06:23 09/17/18 06:23 Labs: Abnormal Lab Results - Last 24 Hours (Table) 09/16/18 09/17/18 09/17/18 Range/Units 20:09 06:23 06:23 Hgb 8.0 L (11.4-16.0) gm/dL Hct 27.0 L (34.0-46.0) % MCV 65.4 L (80.0-100.0) fL MCH 19.3 L (25.0-35.0) pg MCHC 29.6 L (31.0-37.0) g/dL RDW 17.6 H (11.5-15.5) % Chloride 95 L (98-107) mmol/L Carbon Dioxide 34 H (22-30) mmol/L BUN 34 H (7-17) mg/dL Creatinine 1.38 H (0.52-1.04) mg/dL POC Glucose (mg/dL) 136 H (75-99) mg/dL 09/17/18 Range/Units 11:41 Hgb (11.4-16.0) gm/dL Hct (34.0-46.0) % MCV (80.0-100.0) fL MCH (25.0-35.0) pg MCHC (31.0-37.0) g/dL RDW (11.5-15.5) % Chloride (98-107) mmol/L Carbon Dioxide (22-30) mmol/L BUN (7-17) mg/dL Creatinine (0.52-1.04) mg/dL POC Glucose (mg/dL) 142 H (75-99) mg/dL Assessment and Plan Assessment: #1 systolic congestive heart failure acute on chronic, most recent echo was performed in May 2017 which revealed an ejection fraction of 20-25%, severe global hypokinesia of the left ventricle #2 nonischemic cardiomyopathy with prior by V AICD #3 diabetes #4 hypertension #5 hyperlipidemia #6 obesity #7 peripheral neuropathy Echocardiogram with Doppler study was repeated, reveals an ejection fraction of less than 20%. Mild to moderate mitral regurg.we will continue IV Lasix, give the patient one time dose of Zaroxolyn. Continue with aspirin statins and and beta blockers. Added lisinopril. Continue with home insulin dose and follow closely. Anemia possibly contributing worsening symptoms. Cardiology was consulted for evaluation. Further recommendations based on the clinical course. Prognosis is guarded. Time with Patient: Greater than 30
[2018-09-17 16:52] LABS: Glucose,Whole Blood 133 mg/dL (75-99)
[2018-09-17] MEDS: LISINOPRIL 2.5 MG TAB PO SCH (20:07)
[2018-09-17 21:05] LABS: Glucose,Whole Blood 184 mg/dL (75-99)
[2018-09-18] MEDS: ACETAMINOPHEN TAB 325 MG TAB PO PRN ×2 (00:36→18:02)
[2018-09-18] MEDS: PANTOPRAZOLE 40 MG TABLET PO SCH (06:01)
[2018-09-18] MEDS: CARVEDILOL 12.5 MG TAB PO SCH ×2 (06:01→18:02)
[2018-09-18 06:43] LABS: Glucose,Whole Blood 108 mg/dL (75-99)
[2018-09-18 08:04] LABS: Anisocytosis Slight; Basophils % (A) 0 %; Eosinophils # (A) 0.3 k/uL (0-0.7); Eosinophils % (A) 4 %; HCT 27.5 % (34.0-46.0); HGB 7.9 gm/dL (11.4-16.0); Hypochromasia Marked; Lymphocytes # (A) 1.9 k/uL (1.0-4.8); Lymphocytes % (A) 29 %; MCH 18.5 pg (25.0-35.0); MCHC 28.6 g/dL (31.0-37.0); MCV 64.8 fL (80.0-100.0); Mean Platelet Volume 7.9; Microcytosis Marked; Monocytes # (A) 0.5 k/uL (0-1.0); Monocytes % (A) 7 %; Neutrophils # (A) 3.5 k/uL (1.3-7.7); Neutrophils % (A) 55 %; Platelet Count 275 k/uL (150-450); Poikilocytosis Slight; RBC 4.25 m/uL (3.80-5.40); RDW 18.4 % (11.5-15.5); WBC 6.3 k/uL (3.8-10.6)
[2018-09-18] MEDS: IPRATROPIUM-ALBUTEROL 3 ML NEB INHALATION SCH ×4 (08:19→21:04)
[2018-09-18 08:22] LABS: Calcium 8.8 mg/dL (8.4-10.2); Potassium 3.5 mmol/L (3.5-5.1)
[2018-09-18] MEDS: INSULIN ASPART 100 UNIT/ML 1 ML 10 ML VIAL SQ SCH ×4 (08:36→22:04)
[2018-09-18] MEDS: APIXABAN 5 MG TAB PO SCH ×2 (08:50→19:59)
[2018-09-18] MEDS: SODIUM BICARBONATE TAB 650 MG TAB PO SCH ×3 (08:51→19:58)
[2018-09-18] MEDS: INSULIN DETEMIR 100 UNIT/ML 10 ML VIAL SQ SCH (08:51)
[2018-09-18] MEDS: GABAPENTIN 300 MG CAP PO SCH ×2 (08:51→19:58)
[2018-09-18] MEDS: SPIRONOLACTONE 25 MG TAB PO SCH (08:51)
[2018-09-18] MEDS: FUROSEMIDE 10 MG/ML 4 ML VIAL IV SCH (08:51)
[2018-09-18] MEDS: SODIUM FERRIC GLUCONAT-SUCROSE 125 MG in SODIUM CHLORIDE 0.9% 100 ML IVPB SCH (09:12)
--- NOTE | 2018-09-18 11:43 | P.PN ---
Subjective Progress Note Date: 09/18/18 Principal diagnosis: CHF This is a pleasant 42-year-old female with history of hypertension, diabetes, hyperlipidemia, asthma, nicotine dependence, ischemic cardio myopathy with prior by V AICD implantation, who follows with Dr. VC Roldan in the office. She also sees Dr. Esquivel who placed her defibrillator. Patient presents to the hospital on this occasion with symptoms of one week or greater of progressively worsening shortness of breath and peripheral edema. Positive PND and orthopnea. Mild chills.chest x-ray on admission here showed cardiomegaly. Probable atelectasis. Correlate to exclude pulmonary venous hypertension and interstitial edema.EKG shows atrial sensed V paced rhythm.blood pressure on arrival 132/70 with a heart rate in the 90s, 100% on room air. Temperature 97.5.White blood cell count is normal, hemoglobin 8.8 on admission, 8.1 this morning. Platelet count 295, sodium 140, potassium 4.4, BUN 22, creatinine 1.1.her iron level is 14, iron saturation 3.3, ferritin 4.6, AST 71, ALT 61.troponin 0.012. BNP level 2430.at the time of my examination this morning, patient still complains of feeling short of breath, she states she did not put out much urine through the night last night, complaining of some discomfort in her feet, she does have 2-3+ bilateral peripheral edema. 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 09/15/2018 Patient was seen and examined this morning, she has not put out much urine through the night last night and continues to feel short of breath and swollen.blood pressure this morning 112/60 with a heart rate in the 80s, 97% on room air.documented weight shows that it is not from yesterday.today's labs are yet pending. Hemoglobin yesterday was 8.1, patient is receiving Venofer today. 09/18/2018 Patient seen and examined this morning, feeling significantly better overall. She's been up ambulating in the hallway today without any difficulty.blood pressure 88/50, heart rate in the 70s.White blood cell count 6.3, hemoglobin 7.9 , platelet count 275. Sodium 139, potassium 3.5, BUN 38, creatinine 1.1. Objective - Vital Signs Vital signs: Vital Signs Temp 97.2 F L 09/18/18 04:00 Pulse 72 09/18/18 08:00 Resp 20 09/18/18 08:00 BP 88/49 09/18/18 08:00 Pulse Ox 97 09/18/18 08:00 Intake & Output 09/17/18 09/18/18 09/18/18 18:59 06:59 18:59 Output Total 1250 Balance -1250 Weight 130 kg Output: Urine 1250 Other: Voiding Method Toilet # Voids 3 - Exam pHYSICAL EXAMINATION: GENERAL:42-year-old female in no acute distress at the time of my examination HEENT: Head is atraumatic, normocephalic. Pupils equal, round. Sclera anicteric. Conjunctiva are clear. Mucous membranes of the mouth are moist. Neck is supple. There is elevated jugular venous pressure.no carotid bruit is heard. HEART EXAMINATION: Heart S1, S2 normal. No murmur or gallop heard. CHEST EXAMINATION:lungs reveal decreased air exchange throughout with fine wheezing, rales noted to the bases ABDOMEN: Soft,obese, nontender. Bowel sounds are heard. mild hepatomegaly noted. EXTREMITIES: 1+ peripheral pulses with trace to 1+ evidence of peripheral edema bilaterally.toe amputations noted. NEUROLOGIC patient is awake, alert and oriented X3. - Labs CBC & Chem 7: 09/18/18 07:07 09/18/18 07:07 Labs: Abnormal Lab Results - Last 24 Hours (Table) 09/17/18 09/17/18 09/17/18 Range/Units 11:41 16:44 20:29 Hgb (11.4-16.0) gm/dL Hct (34.0-46.0) % MCV (80.0-100.0) fL MCH (25.0-35.0) pg MCHC (31.0-37.0) g/dL RDW (11.5-15.5) % Chloride (98-107) mmol/L Carbon Dioxide (22-30) mmol/L BUN (7-17) mg/dL Creatinine (0.52-1.04) mg/dL POC Glucose (mg/dL) 142 H 133 H 184 H (75-99) mg/dL 09/18/18 09/18/18 09/18/18 Range/Units 06:36 07:07 07:07 Hgb 7.9 L (11.4-16.0) gm/dL Hct 27.5 L (34.0-46.0) % MCV 64.8 L (80.0-100.0) fL MCH 18.5 L (25.0-35.0) pg MCHC 28.6 L (31.0-37.0) g/dL RDW 18.4 H (11.5-15.5) % Chloride 96 L (98-107) mmol/L Carbon Dioxide 32 H (22-30) mmol/L BUN 38 H (7-17) mg/dL Creatinine 1.19 H (0.52-1.04) mg/dL POC Glucose (mg/dL) 108 H (75-99) mg/dL Assessment and Plan Plan: assessment and plan #1 systolic congestive heart failure acute on chronic, most recent echo was performed in May 2017 which revealed an ejection fraction of 20-25%, severe global hypokinesia of the left ventricle #2 nonischemic cardiomyopathy with prior by V AICD #3 diabetes #4 hypertension #5 hyperlipidemia #6 obesity #7 peripheral neuropathy Plan from cardiology's perspective, we'll discontinue the IV diuretics and changed to oral today. She may be able to be discharged home once cleared by primary. We will make her a follow-up appointment to see Dr. VC Roldan in the office post discharge. Lytes BUN and creatinine in 3 days and weekly. DNP note has been reviewed, I agree with a documented findings and plan of care. Patient was seen and examined.
[2018-09-18 11:56] LABS: Glucose,Whole Blood 160 mg/dL (75-99)
[2018-09-18] MEDS: MULTIVITAMINS, THERA 1 EACH TAB PO SCH (12:26)
[2018-09-18 17:23] LABS: Glucose,Whole Blood 121 mg/dL (75-99)
[2018-09-18] MEDS: FUROSEMIDE 40 MG TAB PO SCH (18:02)
[2018-09-18] MEDS: LISINOPRIL 2.5 MG TAB PO SCH (19:59)
[2018-09-18 21:51] LABS: Glucose,Whole Blood 141 mg/dL (75-99)
[2018-09-19 06:30] LABS: Glucose,Whole Blood 98 mg/dL (75-99)
[2018-09-19] MEDS: PANTOPRAZOLE 40 MG TABLET PO SCH (06:32)
[2018-09-19] MEDS: CARVEDILOL 12.5 MG TAB PO SCH (06:32)
[2018-09-19] MEDS: INSULIN ASPART 100 UNIT/ML 1 ML 10 ML VIAL SQ SCH ×2 (06:33→12:42)
--- NOTE | 2018-09-19 08:06 | PN ---
PROGRESS NOTE DATE OF SERVICE: 09/18/2018 PRESENTING COMPLAINT: Shortness of breath. INTERVAL HISTORY: Patient admitted with CHF exacerbation. Breathing has gotten better. Edema is still present but gone down, tolerating a diet. Does get short of breath when getting about. REVIEW OF SYSTEMS: Done for constitutional, cardiovascular, GI, pulmonary: relevant findings as above. CURRENT MEDICATIONS: Reviewed that include p.o. Lasix, Eliquis, Coreg. PHYSICAL EXAMINATION: Temperature 97.7, pulse 71, respiratory 20, blood pressure 120/72, pulse ox 98% on room air. GENERAL APPEARANCE: Propped up in bed, awake. EYES: Pupils equal, conjunctivae normal. HEENT: External appearance of nose and ears normal, oral cavity normal. NECK: JVD not raised. Mass not palpable. RESPIRATORY: Effort increased. LUNGS: Decreased breath sounds. CARDIOVASCULAR: First and second sound normal Edema present. ABDOMEN: Soft, nontender, liver and spleen not palpable. PSYCHIATRY: Alert and oriented x3. Mood and affect normal. INVESTIGATIONS: White count 6.3, hemoglobin 7.9, potassium 3.5, BUN 38, creatinine 1.19. ASSESSMENT: 1. Acute on chronic congestive heart failure exacerbation from systolic dysfunction, ejection fraction 30%-35%. 2. Morbid obesity, body mass index greater than 43. 3. Hyperlipidemia. 4. Essential hypertension. 5. Diabetes mellitus type 2, chronically on insulin. 6. Chronic obstructive pulmonary disease in an ex-smoker. 7. Peripheral neuropathy from diabetes. 8. Mild cognitive impairment from stroke. 9. The ICD in place. PLAN: Will watch the patient overnight. Will see how she does. Encouraged to be out of bed, hopefully home tomorrow. MMODL / IJN: [id number] /
[2018-09-19] MEDS: APIXABAN 5 MG TAB PO SCH (09:12)
[2018-09-19] MEDS: SPIRONOLACTONE 25 MG TAB PO SCH (09:12)
[2018-09-19] MEDS: SODIUM BICARBONATE TAB 650 MG TAB PO SCH (09:12)
[2018-09-19] MEDS: INSULIN DETEMIR 100 UNIT/ML 10 ML VIAL SQ SCH (09:12)
[2018-09-19] MEDS: FUROSEMIDE 40 MG TAB PO SCH (09:12)
[2018-09-19] MEDS: MULTIVITAMINS, THERA 1 EACH TAB PO SCH (09:12)
[2018-09-19] MEDS: GABAPENTIN 300 MG CAP PO SCH (09:14)
[2018-09-19] MEDS: IPRATROPIUM-ALBUTEROL 3 ML NEB INHALATION SCH ×2 (09:33→12:07)
[2018-09-19 09:37] VITALS: RESP 18; TEMP 97.4
[2018-09-19 11:21] LABS: Potassium 4.4 mmol/L (3.5-5.1)
[2018-09-19 12:00] LABS: Glucose,Whole Blood 147 mg/dL (75-99)
[2018-09-19 14:36] VITALS: BP 116/75; PULSE 71
--- NOTE | 2018-09-19 14:53 | P.PN ---
Subjective Progress Note Date: 09/19/18 Principal diagnosis: CHF This is a pleasant 42-year-old female with history of hypertension, diabetes, hyperlipidemia, asthma, nicotine dependence, ischemic cardio myopathy with prior by V AICD implantation, who follows with Dr. VC Roldan in the office. She also sees Dr. Esquivel who placed her defibrillator. Patient presents to the hospital on this occasion with symptoms of one week or greater of progressively worsening shortness of breath and peripheral edema. Positive PND and orthopnea. Mild chills.chest x-ray on admission here showed cardiomegaly. Probable atelectasis. Correlate to exclude pulmonary venous hypertension and interstitial edema.EKG shows atrial sensed V paced rhythm.blood pressure on arrival 132/70 with a heart rate in the 90s, 100% on room air. Temperature 97.5.White blood cell count is normal, hemoglobin 8.8 on admission, 8.1 this morning. Platelet count 295, sodium 140, potassium 4.4, BUN 22, creatinine 1.1.her iron level is 14, iron saturation 3.3, ferritin 4.6, AST 71, ALT 61.troponin 0.012. BNP level 2430.at the time of my examination this morning, patient still complains of feeling short of breath, she states she did not put out much urine through the night last night, complaining of some discomfort in her feet, she does have 2-3+ bilateral peripheral edema. 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 09/15/2018 Patient was seen and examined this morning, she has not put out much urine through the night last night and continues to feel short of breath and swollen.blood pressure this morning 112/60 with a heart rate in the 80s, 97% on room air.documented weight shows that it is not from yesterday.today's labs are yet pending. Hemoglobin yesterday was 8.1, patient is receiving Venofer today. 09/18/2018 Patient seen and examined this morning, feeling significantly better overall. She's been up ambulating in the hallway today without any difficulty.blood pressure 88/50, heart rate in the 70s.White blood cell count 6.3, hemoglobin 7.9 , platelet count 275. Sodium 139, potassium 3.5, BUN 38, creatinine 1.1. 09/19/2018 Patient seen and examined this morning, she's been up ambulating in the hallway , feeling well. Weight is down. Swelling is significantly less. Eager to be discharged home today.sodium 136, potassium 4.4, BUN 38, creatinine 1.2, magnesium 2.0 Objective - Vital Signs Vital signs: Vital Signs Temp 97.4 F L 09/19/18 09:13 Pulse 71 09/19/18 12:00 Resp 18 09/19/18 12:00 BP 116/75 09/19/18 12:00 Pulse Ox 98 09/19/18 12:00 Intake & Output 09/18/18 09/19/18 09/19/18 18:59 06:59 18:59 Intake Total 240 600 Output Total 400 Balance -160 600 Weight 126.6 kg Intake: Oral 240 600 Output: Urine 400 Other: Voiding Method Toilet Toilet # Voids 2 1 1 - Exam pHYSICAL EXAMINATION: GENERAL:42-year-old female in no acute distress at the time of my examination HEENT: Head is atraumatic, normocephalic. Pupils equal, round. Sclera anicteric. Conjunctiva are clear. Mucous membranes of the mouth are moist. Neck is supple. There is elevated jugular venous pressure.no carotid bruit is heard. HEART EXAMINATION: Heart S1, S2 normal. No murmur or gallop heard. CHEST EXAMINATION:lungs reveal decreased air exchange throughout with fine wheezing, rales noted to the bases ABDOMEN: Soft,obese, nontender. Bowel sounds are heard. mild hepatomegaly noted. EXTREMITIES: 1+ peripheral pulses with trace evidence of peripheral edema bilaterally.toe amputations noted. NEUROLOGIC patient is awake, alert and oriented X3. - Labs CBC & Chem 7: 09/18/18 07:07 09/19/18 10:30 Labs: Abnormal Lab Results - Last 24 Hours (Table) 09/18/18 09/18/18 09/19/18 Range/Units 16:41 21:45 10:30 Sodium 136 L (137-145) mmol/L Chloride 95 L (98-107) mmol/L BUN 38 H (7-17) mg/dL Creatinine 1.25 H (0.52-1.04) mg/dL Glucose 140 H (74-99) mg/dL POC Glucose (mg/dL) 121 H 141 H (75-99) mg/dL 09/19/18 Range/Units 11:50 Sodium (137-145) mmol/L Chloride (98-107) mmol/L BUN (7-17) mg/dL Creatinine (0.52-1.04) mg/dL Glucose (74-99) mg/dL POC Glucose (mg/dL) 147 H (75-99) mg/dL Assessment and Plan Plan: assessment and plan #1 systolic congestive heart failure acute on chronic, most recent echo was performed in May 2017 which revealed an ejection fraction of 20-25%, severe global hypokinesia of the left ventricle #2 nonischemic cardiomyopathy with prior by V AICD #3 diabetes #4 hypertension #5 hyperlipidemia #6 obesity #7 peripheral neuropathy Plan From cardiology's perspective, patient may be able to be discharged home today. We will make a follow-up appointment for the patient to see Dr. VC Roldan in the office post discharge. DNP note has been reviewed, I agree with a documented findings and plan of care. Patient was seen and examined.
--- NOTE | 2018-09-20 05:22 | DS ---
DISCHARGE SUMMARY DATE OF ADMISSION: 09/13/2018 DATE OF DISCHARGE: 09/19/2018 FINAL DIAGNOSES: 1. Acute on chronic congestive heart failure exacerbation from systolic dysfunction, ejection fraction 30% to 35%. 2. Morbid obesity, body mass index 43. 3. Hyperlipidemia. 4. Essential hypertension. 5. Diabetes mellitus type 2, chronically on insulin. 6. Chronic obstructive pulmonary disease in an ex-smoker. 7. Peripheral neuropathy from diabetes. 8. Mild cognitive impairment from strokes. 9. ICD. HOSPITAL COURSE: This patient presented with CHF exacerbation on IV Lasix. Doing much better by the time of discharge. EF of less than 20%. On examination, temperature 97.4, pulse 75, respiratory 18, blood pressure 116/75 pulse ox 98% on room air. LUNGS: Fair entry. CARDIOVASCULAR: First and second sounds normal. LABS: Potassium 4.4, BUN 38, creatinine 1.25. CONSULTATION: Dr. Calvin from Cardiology. DISCHARGE MEDICATIONS: 1. Coreg 25 mg p.o. b.i.d. 2. Aldactone 25 mg p.o. daily. 3. Diamox 500 mg p.o. b.i.d. 4. NovoLog 20 units subcutaneous a.c. t.i.d. 5. Ventolin HFA 2 puffs q.6 p.r.n. 6. Neurontin 600 mg p.o. b.i.d. 7. Lantus 50 mg subcutaneous daily. 8. Protonix 40 mg with breakfast. 9. Aspirin 81 mg a day. 10.Sodium bicarb 650 mg p.o. t.i.d. 11.Eliquis 5 mg p.o. b.i.d. 12.Multivitamin 1 tablet p.o. daily. 13.Lasix 60 mg p.o. b.i.d. 14.Zestril 2.5 mg p.o. q.h.s. Follow up with Dr. Esquivel in 1 week; Dr. Causey on 09/27/2018; Dr. Lavonne Roldan on 09/28/2018. BMP in 3 days and weekly per [facility]. MMODL / IJN: [id number] /
== END 2018-09-19 15:05 | disposition home or self-care (01) | DRG 292 ==
LOC: EC 11:50 → 3SCARD 14:12
PROVIDERS: ADMIT Hospitalist; ATTEND Hospitalist
DX: I11.0 Hypertensive heart disease with heart failure (principal); J98.11 Atelectasis; Z68.41 Body mass index [BMI] 40.0-44.9, adult; D64.9 Anemia, unspecified; E11.42 Type 2 diabetes mellitus with diabetic polyneuropathy; E66.01 Morbid (severe) obesity due to excess calories; E78.5 Hyperlipidemia, unspecified; F17.200 Nicotine dependence, unspecified, uncomplicated; I69.318 Other symptoms and signs involving cognitive functions following cerebral infarction; G40.909 Epilepsy, unspecified, not intractable, without status epilepticus; I25.2 Old myocardial infarction; I25.5 Ischemic cardiomyopathy; I34.0 Nonrheumatic mitral (valve) insufficiency; I50.23 Acute on chronic systolic (congestive) heart failure; I83.90 Asymptomatic varicose veins of unspecified lower extremity; J44.9 Chronic obstructive pulmonary disease, unspecified; Z79.01 Long term (current) use of anticoagulants; Z79.4 Long term (current) use of insulin; Z79.899 Other long term (current) drug therapy; Z82.49 Family history of ischemic heart disease and other diseases of the circulatory system; Z89.411 Acquired absence of right great toe; Z95.810 Presence of automatic (implantable) cardiac defibrillator; Z89.432 Acquired absence of left foot; Z79.82 Long term (current) use of aspirin; Z88.0 Allergy status to penicillin
CPT/HCPCS: 36415; 71046; 80048; 80053; 82550; 82553; 82728; 83036; 83540; 83550; 83735; 83880; 84466; 84484; 85025; 85610; 85730; 93005; 93306; 94640; 94760; 96374; 99285

== ENCOUNTER 2018-11-18 13:49 | Observation (INO) | payer MEDICARE, OTHER ==
[2018-11-18] MEDS ORDERED: ASPIRIN 81 MG PO STA (14:23)
--- NOTE | 2018-11-18 14:39 | ED ---
Extremity Problem HPI - General Chief complaint: Extremity Problem,Nontraumatic Stated complaint: Arm pain Time Seen by Provider: 11/18/18 14:10 Source: patient Mode of arrival: ambulatory Limitations: no limitations - History of Present Illness Initial comments: 43-year-old female patient with past medical history significant for heart failure, COPD, CVA, diabetes, hypertension, VA, and seizure disorder presents to the emergency department today for evaluation of left arm pain and fatigue. Patient states around 10:30 this morning she had sudden onset of severe left arm pain. Patient states that the pain lasted approximately 10 minutes. She states that she has been significantly fatigued since the pain episode. States that she has been short of breath and nauseated with this. States she has been feeling a fluttering in her chest like palpitations. Patient states she has had myocardial infarction in the past, her symptoms were different but she did feel similar type fatigue. She denies any injury to the arm. Denies any cough, congestion, sore throat, fever, or chills. States she has been somewhat dizzy. Patient denies any recent rash, fever, chills, abdominal pain, nausea, vomiting, diarrhea, constipation, back pain, numbness, tingling, hematuria, dysuria, urinary urgency, urinary frequency, headache, visual changes, or any other complaints. - Related Data Home Medications Medication Instructions Recorded Confirmed Carvedilol [Coreg] 25 mg PO BID 03/04/15 09/13/18 Spironolactone [Aldactone] 25 mg PO DAILY 03/04/15 09/13/18 acetaZOLAMIDE [Diamox Sequels] 500 mg PO BID 12/03/16 09/13/18 Insulin Aspart [NovoLOG 20 unit SQ AC-TID 12/17/16 09/13/18 (formulary)] Albuterol Inhaler [Ventolin Hfa 2 puff INHALATION RT-Q6H PRN 08/07/17 09/13/18 Inhaler] Gabapentin [Neurontin] 600 mg PO BID 08/19/17 09/13/18 Apixaban [Eliquis] 5 mg PO BID 09/13/18 09/13/18 Multivitamins, Thera [Multivitamin 1 tab PO DAILY@1200 09/13/18 09/13/18 (formulary)] Previous Rx's Medication Instructions Recorded Insulin Glargine [Lantus] 50 unit SQ QAM #0 11/06/17 Pantoprazole [Protonix] 40 mg PO AC-BRKFST 30 Days #30 12/20/17 tablet. Aspirin EC [Ecotrin Low Dose] 81 mg PO DAILY #1 tablet. 02/22/18 Sodium Bicarbonate Tab 650 mg PO TID #30 tab 02/22/18 Apixaban [Eliquis] 5 mg PO BID #60 tab 09/19/18 Furosemide [Lasix] 60 mg PO BID #100 tab 09/19/18 Lisinopril [Zestril] 2.5 mg PO HS #30 tab 09/19/18 Allergies Allergy/AdvReac Type Severity Reaction Status Date / Time Penicillins Allergy Rash/Hives Verified 11/18/18 13:58 Review of Systems ROS Statement: Those systems with pertinent positive or pertinent negative responses have been documented in the HPI. ROS Other: All systems not noted in ROS Statement are negative. Past Medical History Past Medical History: Asthma, Heart Failure, COPD, CVA/TIA, Diabetes Mellitus, Hypertension, Myocardial Infarction ([place]), Pneumonia, Seizure Disorder, Seizure Disorder Additional Past Medical History / Comment(s): past hx chronic wounds to feet/ toes- amputations to left toes in december 2017 . cardiomyopathy. asthma, varicose veins. Diabetic neuropathy in feet. CVA IN AUGUST 2016 WITH SEIZURES , SOME RESIDUAL MEMORY LOSS. PICC LINE PLACED IN AUGUST 2016 FOR OSTEOMYLITIS BOTH FEET-since removed, DR VILLAREAL MANAGED ANTIBIOTICS Last Myocardial Infarction Date:: 11/2013 History of Any Multi-Drug Resistant Organisms: VRE, VRE Date of last positivie culture/infection: 2016 MDRO Source:: bilat feet Past Surgical History: Adenoidectomy, AICD, Section, Heart Catheterization, Orthopedic Surgery, Pacemaker, Tonsillectomy Additional Past Surgical History / Comment(s): AICD - [employer]. has pacemaker defibrillator, right great toe amputation 04/2016, LT GREAT TOE then left foot partial amputation Past Anesthesia/Blood Transfusion Reactions: Postoperative Nausea & Vomiting ( PONV) Type of Cardiac Device: Permanent Pacemaker, AICD Device Placement Date:: 2011 Past Psychological History: Bipolar Smoking Status: Former smoker Past Alcohol Use History: None Reported Past Drug Use History: None Reported - Past Family History Mother Family Medical History: Deep Vein Thrombosis (DVT) Additional Family Medical History / Comment(s): kidney failure. Father History Unknown: Yes Family Medical History: Cancer General Exam Limitations: no limitations General appearance: alert, in no apparent distress, other (This is a well- developed, well-nourished adult female patient in no acute distress. Vital signs upon presentation are temperature 97.6F, pulse 103, respirations 20, blood pressure 147/69, pulse ox 99% on room air.) Eye exam: Present: normal appearance, PERRL, EOMI. Absent: scleral icterus, conjunctival injection, periorbital swelling ENT exam: Present: normal exam, normal oropharynx Respiratory exam: Present: normal lung sounds bilaterally. Absent: respiratory distress, wheezes, rales, rhonchi, stridor Cardiovascular Exam: Present: regular rate, normal rhythm, normal heart sounds. Absent: systolic murmur, diastolic murmur, rubs, gallop, clicks GI/Abdominal exam: Present: soft, normal bowel sounds. Absent: distended, tenderness, guarding, rebound, rigid Extremities exam: Present: normal inspection, full ROM, normal capillary refill , other (Skin to the left arm is pink, warm, and dry. Cap refills less than 3 seconds. Radial pulses 2+ and equal bilaterally.). Absent: tenderness, pedal edema, joint swelling, calf tenderness Neurological exam: Present: alert, oriented X3, CN II-XII intact Psychiatric exam: Present: normal affect, normal mood Skin exam: Present: warm, dry, intact, normal color. Absent: rash Course Vital Signs 11/18/18 11/18/18 13:54 16:13 Temperature 97.6 F Pulse Rate 103 H 103 H Respiratory 20 18 Rate Blood Pressure 147/69 122/86 O2 Sat by Pulse 99 100 Oximetry Medical Decision Making - Medical Decision Making 43 year old female patient with past medical history significant for myocardial infarction, heart failure, and AICD implantation presents the emergency department today for complaints of left arm pain with associated nausea, shortness of breath, and dizziness. Patient also reported palpitations. Physical examination is relatively unremarkable. EKG showed ventricular paced rhythm at 0104 rate. Labs reviewed and initial troponin was negative. Given patient's past medical history and concerning symptoms they will admit for repeat troponins and evaluation by cardiology. I did discuss findings, results , and plan with the patient, she is agreeable. - Lab Data Result diagrams: 11/18/18 15:30 11/18/18 15:30 Lab Results 11/18/18 11/18/18 11/18/18 Range/Units 15:30 15:30 15:30 WBC 7.1 (3.8-10.6) k/uL RBC 5.54 H (3.80-5.40) m/uL Hgb 10.5 L (11.4-16.0) gm/dL Hct 37.0 (34.0-46.0) % MCV 66.8 L (80.0-100.0) fL MCH 19.0 L (25.0-35.0) pg MCHC 28.4 L (31.0-37.0) g/dL RDW 18.8 H (11.5-15.5) % Plt Count 243 (150-450) k/uL Neutrophils % (Manual) 71 % Lymphocytes % (Manual) 23 % Monocytes % (Manual) 5 % Eosinophils % (Manual) 1 % Neutrophils # (Manual) 5.04 (1.3-7.7) k/uL Lymphocytes # (Manual) 1.63 (1.0-4.8) k/uL Monocytes # (Manual) 0.36 (0-1.0) k/uL Eosinophils # (Manual) 0.07 (0-0.7) k/uL Nucleated RBCs 0 (0-0) /100 WBC Manual Slide Review Performed Hypochromasia Marked Hypochromasia (manual) Present Poikilocytosis Slight Anisocytosis Slight Microcytosis Marked Ovalocytes Present PT (9.0-12.0) sec INR (<1.2) APTT (22.0-30.0) sec Sodium 137 (137-145) mmol/L Potassium 4.1 (3.5-5.1) mmol/L Chloride 103 (98-107) mmol/L Carbon Dioxide 22 (22-30) mmol/L Anion Gap 12 mmol/L BUN 32 H (7-17) mg/dL Creatinine 1.13 H (0.52-1.04) mg/dL Est GFR (CKD-EPI)AfAm 68 (>60 ml/min/1.73 sqM) Est GFR (CKD-EPI)NonAf 59 (>60 ml/min/1.73 sqM) Glucose 143 H (74-99) mg/dL Calcium 8.8 (8.4-10.2) mg/dL Magnesium 1.5 L (1.6-2.3) mg/dL Total Bilirubin 1.0 (0.2-1.3) mg/dL AST 46 H (14-36) U/L ALT 38 (9-52) U/L Alkaline Phosphatase 74 (38-126) U/L Total Creatine Kinase 44 (30-135) U/L CK-MB (CK-2) 0.9 (0.0-2.4) ng/mL CK-MB (CK-2) Rel Index 2.0 Troponin I <0.012 (0.000-0.034) ng/mL Total Protein 6.7 (6.3-8.2) g/dL Albumin 3.6 (3.5-5.0) g/dL 11/18/18 Range/Units 15:30 WBC (3.8-10.6) k/uL RBC (3.80-5.40) m/uL Hgb (11.4-16.0) gm/dL Hct (34.0-46.0) % MCV (80.0-100.0) fL MCH (25.0-35.0) pg MCHC (31.0-37.0) g/dL RDW (11.5-15.5) % Plt Count (150-450) k/uL Neutrophils % (Manual) % Lymphocytes % (Manual) % Monocytes % (Manual) % Eosinophils % (Manual) % Neutrophils # (Manual) (1.3-7.7) k/uL Lymphocytes # (Manual) (1.0-4.8) k/uL Monocytes # (Manual) (0-1.0) k/uL Eosinophils # (Manual) (0-0.7) k/uL Nucleated RBCs (0-0) /100 WBC Manual Slide Review Hypochromasia Hypochromasia (manual) Poikilocytosis Anisocytosis Microcytosis Ovalocytes PT 13.6 H (9.0-12.0) sec INR 1.3 H (<1.2) APTT 24.6 (22.0-30.0) sec Sodium (137-145) mmol/L Potassium (3.5-5.1) mmol/L Chloride (98-107) mmol/L Carbon Dioxide (22-30) mmol/L Anion Gap mmol/L BUN (7-17) mg/dL Creatinine (0.52-1.04) mg/dL Est GFR (CKD-EPI)AfAm (>60 ml/min/1.73 sqM) Est GFR (CKD-EPI)NonAf (>60 ml/min/1.73 sqM) Glucose (74-99) mg/dL Calcium (8.4-10.2) mg/dL Magnesium (1.6-2.3) mg/dL Total Bilirubin (0.2-1.3) mg/dL AST (14-36) U/L ALT (9-52) U/L Alkaline Phosphatase (38-126) U/L Total Creatine Kinase (30-135) U/L CK-MB (CK-2) (0.0-2.4) ng/mL CK-MB (CK-2) Rel Index Troponin I (0.000-0.034) ng/mL Total Protein (6.3-8.2) g/dL Albumin (3.5-5.0) g/dL - EKG Data -: EKG Interpreted by [place] EKG Comments: EKG obtained at 1412 shows atrial sensed ventricular paced rhythm, biventricular pacemaker. Ventricular rate is 104, PA interval 132, QRS duration 142, QT 428, QTC 562. - Radiology Data Radiology results: report reviewed, image reviewed Two-view x-ray of the chest is obtained. Report reviewed in its entirety. Impression by Dr. Puentes shows cardiomegaly. There is significant improvement in the atelectasis compared to last exam Disposition Clinical Impression: Atypical chest pain Disposition: ADMITTED IP TO THIS [facility] Condition: Serious Referrals: Dylan Causey MD [Primary Care Provider] - 1-2 days Decision to Admit Reason: Admit from EC Decision Date: 11/18/18 Decision Time: 16:54
--- NOTE | 2018-11-18 16:07 | XR ---
EXAMINATION TYPE: XR chest 2V DATE OF EXAM: 11/18/2018 COMPARISON: 09/13/2018 HISTORY: Wrist pain TECHNIQUE: Frontal and lateral views of the chest are obtained. FINDINGS: Heart is enlarged. There is small linear density in the left midlung. The other lung field s are clear. There is no heart failure. There is left axillary pacemaker with the lead tips in the ri ght ventricle. There is no pleural effusion. IMPRESSION: Cardiomegaly. There is significant improvement in the atelectasis compared to last exam.
[2018-11-18 16:10] LABS: Albumin 3.6 g/dL (3.5-5.0); Calcium 8.8 mg/dL (8.4-10.2); Magnesium 1.5 mg/dL (1.6-2.3); Potassium 4.1 mmol/L (3.5-5.1); Total Protein 6.7 g/dL (6.3-8.2)
[2018-11-18 16:15] LABS: Anisocytosis Slight; HGB 10.5 gm/dL (11.4-16.0); Hypochromasia Marked; MCHC 28.4 g/dL (31.0-37.0); MCV 66.8 fL (80.0-100.0); Mean Platelet Volume 6.5; Microcytosis Marked; Platelet Count 243 k/uL (150-450); Poikilocytosis Slight; RBC 5.54 m/uL (3.80-5.40); RDW 18.8 % (11.5-15.5); WBC 7.1 k/uL (3.8-10.6)
[2018-11-18 16:20] LABS: Creatine Kinase 44 U/L (30-135)
[2018-11-18 16:21] LABS: Eosinophils # (M) 0.07 k/uL (0-0.7); Hypochromasia (M) Present; Lymphocytes # (M) 1.63 k/uL (1.0-4.8); Monocytes # (M) 0.36 k/uL (0-1.0); Neutrophils # (M) 5.04 k/uL (1.3-7.7); Neutrophils % (M) 71 %; Nucleated Red Blood Cells 0 /100 WBC (0-0); Ovalocytes Present; Total Cells Counted 100
[2018-11-18 16:22] LABS: INR 1.3 (<1.2); Partial Thromboplastin Time 24.6 sec (22.0-30.0)
[2018-11-18 16:23] LABS: Prothrombin Time 13.6 sec (9.0-12.0)
[2018-11-18 16:32] LABS: Creatine Kinase MB 0.9 ng/mL (0.0-2.4); Troponin I <0.012 ng/mL (0.000-0.034)
[2018-11-18] MEDS ORDERED: Magnesium Replacement Protocol 1 EACH MISC MISCELLANE PRN (16:43)
[2018-11-18] MEDS ORDERED: NITROGLYCERIN SL TABS 0.4 MG TAB SUBLINGUAL PRN (16:51)
[2018-11-18] MEDS: MAGNESIUM SULFATE-D5W PMX 1 GM in DEXTROSE/WATER 1 100ML.BAG IVPB SCH ×2 (17:14→18:34)
[2018-11-18 20:00] VITALS: BMI 43.4
[2018-11-18 20:30] LABS: Glucose,Whole Blood 156 mg/dL (75-99)
[2018-11-18] MEDS ORDERED: ALBUTEROL NEBULIZED 2.5 MG/3 ML INHALATION PRN (20:37)
[2018-11-18] MEDS ORDERED: ONDANSETRON 4 MG/2 ML VIAL IVP PRN (20:38)
[2018-11-18] MEDS ORDERED: ACETAMINOPHEN TAB 325 MG TAB PO PRN (20:38)
[2018-11-18] MEDS ORDERED: LACTULOSE 20 GM/30 ML CUP PO PRN (20:38)
[2018-11-18] MEDS ORDERED: NALOXONE 0.4 MG/ML 1 ML VIAL IV PRN (20:38)
[2018-11-18] MEDS ORDERED: MAGNESIUM HYDROXIDE 2,400 MG/10 ML CUP PO PRN (20:38)
[2018-11-18] MEDS ORDERED: TEMAZEPAM 15 MG CAP PO PRN (20:38)
[2018-11-18] MEDS ORDERED: ALPRAZolam 0.25 MG TAB PO PRN (20:38)
[2018-11-18] MEDS ORDERED: CALCIUM CARBONATE 500 MG CHEWABLE PO PRN (20:38)
[2018-11-18] MEDS ORDERED: LISINOPRIL 5 MG TAB PO SCH (21:00)
[2018-11-18] MEDS: INSULIN ASPART 100 UNIT/ML 1 ML 10 ML VIAL SQ SCH (21:01)
[2018-11-18] MEDS: CARVEDILOL 12.5 MG TAB PO SCH (21:01)
[2018-11-18] MEDS: GABAPENTIN 300 MG CAP PO SCH (21:01)
[2018-11-18] MEDS: APIXABAN 5 MG TAB PO SCH (21:01)
[2018-11-18 22:06] LABS: Creatine Kinase 43 U/L (30-135)
[2018-11-18 22:19] LABS: Creatine Kinase MB 0.8 ng/mL (0.0-2.4); Troponin I <0.012 ng/mL (0.000-0.034)
[2018-11-19 04:03] LABS: Creatine Kinase 34 U/L (30-135)
[2018-11-19 04:14] LABS: Creatine Kinase MB 0.6 ng/mL (0.0-2.4); Troponin I <0.012 ng/mL (0.000-0.034)
[2018-11-19 06:33] LABS: Glucose,Whole Blood 140 mg/dL (75-99)
[2018-11-19] MEDS ORDERED: FUROSEMIDE 20 MG TAB PO SCH ×2 (09:00→15:00)
[2018-11-19] MEDS ORDERED: INSULIN DETEMIR 100 UNIT/ML 10 ML VIAL SQ SCH (09:00)
[2018-11-19] MEDS ORDERED: SPIRONOLACTONE 25 MG TAB PO SCH (09:00)
[2018-11-19] MEDS ORDERED: NON-FORMULARY DRUG (Aspirin Ec 81 MG) PO SCH (09:00)
[2018-11-19] MEDS ORDERED: ASPIRIN 325 MG TAB PO SCH (09:00)
--- NOTE | 2018-11-19 09:05 | P.CRDCN ---
History of Present Illness Consult date: 11/19/18 Reason for Consult (text): Atypical chest pain Chief complaint: Left upper arm pain History of present illness: This is a 43-year-old female patient of Dr. VC Roldan with past medical history of hypertension, diabetes, hyperlipidemia, asthma, nicotine dependence recently stopped smoking in June 2018, chronic systolic heart failure, ischemic cardiomyopathy status post ventricular paced AICD implantation with Dr. Esquivel. Most recent echocardiogram done in August 2018 reveals EF of less than 70% with severe global hypokinesia of the LV, moderate mitral regurgitation, mild tricuspid regurgitation, mild pulmonary hypertension right atrial pressure greater than 20 mmHg. Patient gives history of not feeling well for the past 3 days and thought she was coming down with the flu. She states she has had nausea, generalized aches, chills. She also gives history of having problems with her upper arms and shoulder areas and she does not know the underlying cause. She states yesterday she had onset of left upper arm pain that lasted for about 5-10 minutes this repeated 2 times and she decided to come into the hospital for evaluation. She came [facility] emergency center for evaluation and subsequently placed on the observation unit. Troponins are negative 3 draws. White count 7.1, hemoglobin 10.5, platelet count 243, creatinine 1.13 with BUN 32. Blood sugar 143. Triglycerides 83, cholesterol 96, LDL 55, HDL 24. EKG revealed a ventricular paced rhythm. At the time of this evaluation, patient denies having any chest pain, left arm pain, nausea, vomiting, shortness of breath, dizziness. She does not know what resolved her symptoms. She has full range of motion to her left shoulder. Review of Systems All systems: negative Constitutional: Reports chills, Reports fatigue, Reports poor appetite, Denies fever, Denies weight loss Eyes: denies blurred vision, denies pain Ears, nose, mouth and throat: Reports vertigo, Denies dysphagia, Denies headache , Denies hoarseness, Denies sore throat Cardiovascular: Reports shortness of breath, Denies chest pain, Denies dyspnea on exertion, Denies leg edema, Denies syncope Respiratory: Reports dyspnea, Denies cough, Denies cough with sputum, Denies excessive sputum, Denies hemoptysis, Denies home oxygen, Denies wheezing Gastrointestinal: Reports nausea, Denies abdominal pain, Denies diarrhea, Denies vomiting Genitourinary: Denies dysuria, Denies hematuria Musculoskeletal: Denies frequent falls, Denies gait dysfunction, Denies myalgias Integumentary: Denies pruritus, Denies rash, Denies wounds Neurological: Denies numbness, Denies weakness Psychiatric: Denies anxiety, Denies depression Endocrine: Denies fatigue, Denies weight change Past Medical History Past Medical History: Asthma, Heart Failure, COPD, CVA/TIA, Diabetes Mellitus, Hypertension, Myocardial Infarction ([place]), Pneumonia, Seizure Disorder, Seizure Disorder Additional Past Medical History / Comment(s): past hx chronic wounds to feet/ toes- amputations to left toes in december 2017 . cardiomyopathy. asthma, varicose veins. Diabetic neuropathy in feet. CVA IN AUGUST 2016 WITH SEIZURES , SOME RESIDUAL MEMORY LOSS. PICC LINE PLACED IN AUGUST 2016 FOR OSTEOMYLITIS BOTH FEET-since removed, DR VILLAREAL MANAGED ANTIBIOTICS Last Myocardial Infarction Date:: 11/2013 History of Any Multi-Drug Resistant Organisms: VRE, VRE Date of last positivie culture/infection: 2016 MDRO Source:: bilat feet Past Surgical History: Adenoidectomy, AICD, Section, Heart Catheterization, Orthopedic Surgery, Pacemaker, Tonsillectomy Additional Past Surgical History / Comment(s): AICD - [employer]. has pacemaker defibrillator, right great toe amputation 04/2016, LT GREAT TOE then left foot partial amputation Past Anesthesia/Blood Transfusion Reactions: Postoperative Nausea & Vomiting ( PONV) Type of Cardiac Device: Permanent Pacemaker, AICD Device Placement Date:: 2011 Smoking Status: Former smoker Additional Past Alcohol Use History / Comment(s): Patient was a smoker of a half a pack cigarettes per day for 32 years and quit in June 2018. - Past Family History Mother Family Medical History: Deep Vein Thrombosis (DVT) Additional Family Medical History / Comment(s): Some type of heart problems, kidney failure. Father History Unknown: Yes Family Medical History: Unable to Obtain Additional Family Medical History / Comment(s): Patient denies knowing any medical history on her father. Medications and Allergies Home Medications Medication Instructions Recorded Confirmed Type Carvedilol [Coreg] 25 mg PO BID 03/04/15 11/18/18 History Spironolactone [Aldactone] 25 mg PO DAILY 03/04/15 11/18/18 History Insulin Aspart [NovoLOG See Protocol SQ AC-TID 12/17/16 11/18/18 History (formulary)] Albuterol Inhaler [Ventolin Hfa 2 puff INHALATION RT-Q6H PRN 08/07/17 11/18/18 History Inhaler] Gabapentin [Neurontin] 600 mg PO TID 08/19/17 11/18/18 History Aspirin EC [Ecotrin Low Dose] 81 mg PO DAILY #1 tablet. 02/22/18 11/18/18 Rx Apixaban [Eliquis] 5 mg PO BID 09/13/18 11/18/18 History Lisinopril [Zestril] 2.5 mg PO HS #30 tab 09/19/18 11/18/18 Rx Furosemide [Lasix] 20 mg PO DAILY@1500 11/18/18 11/18/18 History Furosemide [Lasix] 40 mg PO QAM 11/18/18 11/18/18 History Insulin Glargine [Lantus] 40 unit SQ DAILY 11/18/18 11/18/18 History Allergies Allergy/AdvReac Type Severity Reaction Status Date / Time Penicillins Allergy Rash/Hives Verified 11/18/18 19:46 Physical Exam Vitals: Vital Signs Temp Pulse Pulse Resp BP BP Pulse Ox 11/19/18 07:32 97.6 F 61 16 107/68 92 L 11/19/18 04:00 97.8 F 78 16 114/75 94 L 11/19/18 00:00 98.3 F 84 16 121/78 98 11/18/18 20:00 18 11/18/18 19:41 97.7 F 98 18 132/90 97 11/18/18 18:37 93 18 122/86 97 11/18/18 16:13 103 H 18 122/86 100 11/18/18 13:54 97.6 F 103 H 20 147/69 99 Intake and Output 11/18/18 11/19/18 11/19/18 22:59 06:59 14:59 Other: Weight 126 kg Gen: This is a 43-year-old morbidly obese female. She is resting in bed flat and appears to be in no acute distress. No respiratory distress noted. HEENT: Head is atraumatic, normocephalic. Pupils equal, round. Sclerae is anicteric. Conjunctiva pink. Mucous members of the mouth are moist. NECK: Supple. No JVD. No lymphadenopathy. No thyromegaly. LUNGS: Clear to auscultation. No wheezes or rhonchi. No intercostal retractions. HEART: Regular rate and rhythm. No murmur. ABDOMEN: Soft. Bowel sounds are present. No masses. No tenderness. EXTREMITIES: Trace bilateral pedal edema. No calf tenderness. Noted previous amputations of the right great toe and left toes one through 5. NEUROLOGICAL: Patient is awake, alert and oriented x3. Cranial nerves 2 through 12 are grossly intact. Results 11/18/18 15:30 11/18/18 15:30 Cardiac Enzymes 11/18/18 11/18/18 11/18/18 Range/Units 15:30 15:30 21:33 AST 46 H (14-36) U/L CK-MB (CK-2) 0.9 0.8 (0.0-2.4) ng/mL Troponin I <0.012 <0.012 (0.000-0.034) ng/mL 11/19/18 Range/Units 03:11 AST (14-36) U/L CK-MB (CK-2) 0.6 (0.0-2.4) ng/mL Troponin I <0.012 (0.000-0.034) ng/mL Coagulation 11/18/18 Range/Units 15:30 PT 13.6 H (9.0-12.0) sec APTT 24.6 (22.0-30.0) sec Lipids 11/19/18 Range/Units 03:11 Triglycerides 83 (<150) mg/dL Cholesterol 96 (<200) mg/dL HDL Cholesterol 24 L (40-60) mg/dL CBC 11/18/18 Range/Units 15:30 WBC 7.1 (3.8-10.6) k/uL RBC 5.54 H (3.80-5.40) m/uL Hgb 10.5 L (11.4-16.0) gm/dL Hct 37.0 (34.0-46.0) % Plt Count 243 (150-450) k/uL Comprehensive Metabolic Panel 11/18/18 Range/Units 15:30 Sodium 137 (137-145) mmol/L Potassium 4.1 (3.5-5.1) mmol/L Chloride 103 (98-107) mmol/L Carbon Dioxide 22 (22-30) mmol/L BUN 32 H (7-17) mg/dL Creatinine 1.13 H (0.52-1.04) mg/dL Glucose 143 H (74-99) mg/dL Calcium 8.8 (8.4-10.2) mg/dL AST 46 H (14-36) U/L ALT 38 (9-52) U/L Alkaline Phosphatase 74 (38-126) U/L Total Protein 6.7 (6.3-8.2) g/dL Albumin 3.6 (3.5-5.0) g/dL Current Medications Generic Name Dose Route Start Last Admin Trade Name Freq PRN Reason Stop Dose Admin Acetaminophen 650 mg 11/18/18 20:38 Tylenol Tab PO Q6HR PRN Mild Pain or Fever > 100.5 Albuterol Sulfate 2.5 mg 11/18/18 20:37 Ventolin Nebulized INHALATION RT-Q6H PRN Shortness Of Breath Alprazolam 0.25 mg 11/18/18 20:38 Xanax PO Q6HR PRN Anxiety Apixaban 5 mg 11/18/18 21:00 11/18/18 21:01 Eliquis PO 5 mg BID JAN Administration Aspirin 325 mg 11/19/18 09:00 Aspirin PO DAILY [facility] Calcium Carbonate/Glycine 500 mg 11/18/18 20:38 Tums PO Q4HR PRN Dyspepsia Carvedilol 25 mg 11/18/18 21:00 11/18/18 21:01 Coreg PO 25 mg BID [facility] Administration Furosemide 40 mg 11/19/18 09:00 Lasix PO QAM [facility] Furosemide 20 mg 11/19/18 15:00 Lasix PO DAILY@1500 JAN Gabapentin 600 mg 11/18/18 22:00 11/18/18 21:01 Neurontin PO 600 mg TID [facility] Administration Insulin Aspart 0 unit 11/18/18 21:00 11/18/18 21:01 Novolog SQ 2 unit ACHS [facility] Administration Protocol Insulin Detemir 40 unit 11/19/18 09:00 Levemir SQ DAILY [facility] Lactulose 20 gm 11/18/18 20:38 Cephulac PO DAILY PRN Constipation Lisinopril 2.5 mg 11/18/18 21:00 11/18/18 21:01 Zestril PO 2.5 mg HS JAN Administration Magnesium Hydroxide 2,400 mg 11/18/18 20:38 Milk Of Magnesia PO DAILY PRN Constipation Miscellaneous Information 1 each 11/18/18 16:43 Magnesium Per Protocol MISCELLANE DAILY PRN Per Protocol Protocol Naloxone HCl 0.2 mg 11/18/18 20:38 Narcan IV Q2M PRN Opioid Reversal Nitroglycerin 0.4 mg 11/18/18 16:51 Nitrostat SUBLINGUAL Q5M PRN Chest Pain Ondansetron HCl 4 mg 11/18/18 20:38 Zofran IVP Q8HR PRN Nausea And Vomiting Spironolactone 25 mg 11/19/18 09:00 Aldactone PO DAILY JAN Temazepam 15 mg 11/18/18 20:38 Restoril PO HS PRN Insomnia Intake and Output 11/18/18 11/19/18 11/19/18 22:59 06:59 14:59 Other: Weight 126 kg 11/18/18 15:30 11/18/18 15:30 Assessment and Plan Plan: 1. Left arm pain, resolved. Acute coronary syndrome ruled out. 2. Chronic systolic heart failure and ischemic cardiomyopathy with known EF of 20% status post ventricular paced AICD . 3. Hypertension. 4. History of tobacco use and dependence, quit June 2018. 5. Diabetes mellitus type 2, insulin requiring. 6. Hyperlipidemia. 7. Morbid obesity with BMI 43. 8. Peripheral neuropathy. PLAN Acute coronary syndrome has been ruled out and patient is cleared for discharge home today. Medications have been reviewed and patient is to continue eliquis 5 mg twice daily, Coreg 25 mg twice daily, Lasix 40 mg in the morning and 20 mg in the afternoon, lisinopril 2.5 mg at bedtime, spironolactone 25 mg daily. Thank you kindly for this consultation. Nurse Practitioner note has been reviewed, I agree with a documented findings and plan of care. Patient was seen and examined.
[2018-11-19] MEDS: INSULIN ASPART 100 UNIT/ML 1 ML 10 ML VIAL SQ SCH ×2 (09:31→12:14)
[2018-11-19] MEDS: CARVEDILOL 12.5 MG TAB PO SCH (09:32)
[2018-11-19] MEDS: GABAPENTIN 300 MG CAP PO SCH ×2 (09:32→15:27)
[2018-11-19] MEDS: APIXABAN 5 MG TAB PO SCH (09:32)
[2018-11-19 11:39] LABS: Glucose,Whole Blood 162 mg/dL (75-99)
[2018-11-19 11:44] VITALS: BP 91/65; PULSE 67; RESP 14; TEMP 97.4
--- NOTE | 2018-11-20 00:58 | HP ---
HISTORY AND PHYSICAL DATE OF ADMISSION: 11/18/2018. DATE OF DISCHARGE: 11/19/2018. PRESENTING COMPLAINT: Left arm pain, chest fluttering. HISTORY OF PRESENTING COMPLAINT: This is a pleasant 43-year-old patient with extensive medical history. Follows with Dr. Causey. Chronic stable medical conditions include COPD, diabetes, essential hypertension, hyperlipidemia, cardiomyopathy, EF 30% to 35%. The patient for 2 to 3 days was not feeling well, a bit tired. Yesterday noticed some left arm pain and a fluttering in the chest, lasted for 10 to 15 minutes. The patient also had slight chills and nausea. Decided to come in. There was no fever, no cough, no sputum. Denied any urinary symptoms. Because the left arm pain and fluttering sensation, decided to come in to rule out a cardiac cause. The patient also got a pacemaker. REVIEW OF SYSTEMS: CONSTITUTIONAL: Tired, chills. No fever. HEENT: None. RESPIRATORY: None. CARDIOVASCULAR: As above. GASTROINTESTINAL: None. GENITOURINARY: None. MUSCULOSKELETAL: None. DERMATOLOGICAL: None. HEMATOLOGICAL: None. LYMPHATIC: None. PSYCHIATRY: Anxiety, controlled. NEUROLOGIC: Numbness and tingling in the feet. PAST MEDICAL HISTORY: COPD, cardiomyopathy, EF 35% to 40%, stroke, diabetes mellitus type 2, hypertension, seizure disorder, varicose veins, peripheral neuropathy, diabetic wounds, seizures, some memory and residual speech loss. PAST SURGICAL HISTORY: Adenoidectomy, AICD with [employer], , cardiac catheterization, left foot transmetatarsal amputation. SOCIAL HISTORY: The patient has a son at home. The patient stopped smoking 5 months ago, smoked for many years. Has medical marijuana. Denies alcohol. FAMILY HISTORY: DVT and kidney failure. HOME MEDICATIONS: 1. Aldactone 25 mg a day. 2. Zestril 2.5 mg p.o. at bedtime. 3. Lantus 40 units subcu daily. 4. NovoLog a.c. t.i.d. 5. Neurontin 600 mg t.i.d. 6. Lasix 20 mg 3 p.m. and 40 mg in the morning. 7. Coreg 25 mg b.i.d. 8. Aspirin 81 mg p.o. daily. 9. Eliquis 5 mg p.o. b.i.d. 10.Ventolin HFA 2 puffs every 6 hours p.r.n. ALLERGIES: PENICILLIN. PHYSICAL EXAMINATION: Vital signs on presentation temp 97.6, pulse 103, respirations 20, blood pressure 147/69, pulse ox 99% on room air. GENERAL APPEARANCE: Well-built. BMI 43.5. Sitting up, comfortable. EYES: Pupil equal. Conjunctivae normal. HEENT: External nose and ears normal. Oral cavity normal. NECK: JVD not raised. Mass not palpable. Respiratory effort normal. LUNGS: Fair entry. CARDIOVASCULAR: 1st and 2nd heart sounds. No edema. ABDOMEN: Soft, nontender. Liver and spleen not palpable. LYMPHATIC: No lymph node palpable in the neck or axillae. PSYCHIATRY: Alert and oriented x3. Mood and affect normal. NEUROLOGIC: Pupils equal. Grossly intact. Power and sensation decreased distally. INVESTIGATIONS: White count 7.1, hemoglobin 10.5, potassium 4.1, BUN 32, creatinine 1.13. Troponin negative. EKG tracing personally reviewed by me shows paced rhythm, atrial sensed ventricular paced rhythm. Chest x-ray film personally reviewed by me shows cardiomegaly, no venous prominence, pacemaker with lead wires noted. ASSESSMENT: 1. The patient presented with left arm discomfort, fluttering in the chest for 10 to 15 minutes, could have been a short-lived arrhythmia, self-limiting. 2. Episode of some chills, nausea, but no fever, could have been a low-grade viral self-limiting. Patient is feeling back to normal self. 3. Chronic congestive heart failure from systolic dysfunction, EF 30% to 35%, nonischemic. 4. Chronic obstructive pulmonary disease in an ex-smoker. 5. Diabetes mellitus type 2, chronically on insulin. 6. Essential hypertension. 7. Chronic seizure disorder. 8. Peripheral neuropathy from diabetes. 9. AICD. 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 PLAN: Home medications resumed. Accu-Cheks to be followed. Cardiology was consulted, from their standpoint patient is stable. The patient has no fever, no white count. Feeling quite back to her baseline. She may have had a low-grade viral infection that has settled down. The patient is to resume her home medications and follow up with her family doctor. The patient is also to follow with the kiln hand in 2 weeks. Care was discussed. The patient is both a history physical and discharge summary for this patient. CONSULTATIONS: Dr. Ho from Cardiology. SONNY / LUCHO: [id number] /
== END 2018-11-19 15:57 | disposition home or self-care (01) ==
LOC: EC 13:49 → 1SOBS 17:12
PROVIDERS: ADMIT Hospitalist; ATTEND Hospitalist
DX: R00.2 Palpitations (principal); M79.602 Pain in left arm; I11.0 Hypertensive heart disease with heart failure; I50.22 Chronic systolic (congestive) heart failure; R42 Dizziness and giddiness; R53.83 Other fatigue; R11.0 Nausea; R68.83 Chills (without fever); I27.20 Pulmonary hypertension, unspecified; I08.1 Rheumatic disorders of both mitral and tricuspid valves; I25.5 Ischemic cardiomyopathy; F31.9 Bipolar disorder, unspecified; E11.42 Type 2 diabetes mellitus with diabetic polyneuropathy; E78.5 Hyperlipidemia, unspecified; J44.9 Chronic obstructive pulmonary disease, unspecified; G40.909 Epilepsy, unspecified, not intractable, without status epilepticus; I83.90 Asymptomatic varicose veins of unspecified lower extremity; E66.01 Morbid (severe) obesity due to excess calories; Z68.41 Body mass index [BMI] 40.0-44.9, adult; Z79.82 Long term (current) use of aspirin; Z79.4 Long term (current) use of insulin; Z79.01 Long term (current) use of anticoagulants; Z88.0 Allergy status to penicillin; Z95.810 Presence of automatic (implantable) cardiac defibrillator; Z87.891 Personal history of nicotine dependence; Z86.73 Personal history of transient ischemic attack (TIA), and cerebral infarction without residual deficits; Z87.01 Personal history of pneumonia (recurrent); Z89.411 Acquired absence of right great toe; Z89.412 Acquired absence of left great toe; Z16.21 Resistance to vancomycin; Z89.422 Acquired absence of other left toe(s); Z83.2 Family history of diseases of the blood and blood-forming organs and certain disorders involving the immune mechanism; Z84.89 Family history of other specified conditions; Z80.9 Family history of malignant neoplasm, unspecified
CPT/HCPCS: 96365; 96366; 99284; 36415; 93005; 80061; 80053; 82550 ×2; 82553 ×2; 83735 ×2; 84484 ×2; 85025; 85610; 85730; 71046; G0378 ×2; J3475

== ENCOUNTER 2019-01-07 19:00 | Inpatient (IN) | payer MEDICARE, OTHER ==
[2019-01-07] MEDS ORDERED: ASPIRIN 81 MG PO STA (19:29)
[2019-01-07] MEDS ORDERED: NITROGLYCERIN OINT 1 INCH/GM PACKET TOPICAL STA (19:29)
[2019-01-07] MEDS ORDERED: NITROGLYCERIN SL TABS 0.4 MG TAB SUBLINGUAL STA (19:29)
--- NOTE | 2019-01-07 19:33 | ED ---
General Adult HPI - General Chief complaint: Chest Pain Stated complaint: Chest Pain Time Seen by Provider: 01/07/19 19:01 Source: patient, RN notes reviewed Mode of arrival: EMS Limitations: no limitations - History of Present Illness Initial comments: Patient is a pleasant 43-year-old female presenting to the emergency department with complaints of chest discomfort. Onset of symptoms was around 6:00. Patient has burning of her chest and left arm. Patient did feel a little bit short of breath earlier that has resolved. Patient was also somewhat nauseated earlier. No diaphoresis. No history of similar symptoms previously. - Related Data Home Medications Medication Instructions Recorded Confirmed Carvedilol [Coreg] 25 mg PO BID 03/04/15 01/07/19 Spironolactone [Aldactone] 25 mg PO DAILY 03/04/15 01/07/19 Insulin Aspart [NovoLOG See Protocol SQ AC-TID PRN 12/17/16 01/07/19 (formulary)] Albuterol Inhaler [Ventolin Hfa 2 puff INHALATION RT-Q6H PRN 08/07/17 01/07/19 Inhaler] Gabapentin [Neurontin] 600 mg PO TID 08/19/17 01/07/19 Apixaban [Eliquis] 5 mg PO BID 09/13/18 01/07/19 Furosemide [Lasix] 40 mg PO DAILY@1500 11/18/18 01/07/19 Furosemide [Lasix] 60 mg PO QAM 11/18/18 01/07/19 Insulin Glargine [Lantus] 40 unit SQ DAILY 11/18/18 01/07/19 Previous Rx's Medication Instructions Recorded Lisinopril [Zestril] 2.5 mg PO HS #30 tab 09/19/18 Allergies Allergy/AdvReac Type Severity Reaction Status Date / Time Penicillins Allergy Rash/Hives Verified 01/07/19 19:26 ondansetron [From Zofran] AdvReac Nausea & Verified 01/07/19 19:26 Vomiting Review of Systems ROS Statement: Those systems with pertinent positive or pertinent negative responses have been documented in the HPI. ROS Other: All systems not noted in ROS Statement are negative. Constitutional: Denies: fever Eyes: Denies: eye pain ENT: Denies: ear pain Respiratory: Reports: as per HPI. Denies: cough Cardiovascular: Reports: chest pain Endocrine: Denies: fatigue Gastrointestinal: Reports: nausea. Denies: abdominal pain Genitourinary: Denies: dysuria Musculoskeletal: Denies: back pain Skin: Denies: rash Neurological: Denies: weakness Past Medical History Past Medical History: Asthma, Heart Failure, COPD, CVA/TIA, Diabetes Mellitus, Hypertension, Myocardial Infarction (SD), Pneumonia, Seizure Disorder, Seizure Disorder Additional Past Medical History / Comment(s): past hx chronic wounds to feet/ toes- amputations to left toes in december 2017 . cardiomyopathy. asthma, varicose veins. Diabetic neuropathy in feet. CVA IN AUGUST 2016 WITH SEIZURES , SOME RESIDUAL MEMORY LOSS. PICC LINE PLACED IN AUGUST 2016 FOR OSTEOMYLITIS BOTH FEET-since removed, DR VILLAREAL MANAGED ANTIBIOTICS Last Myocardial Infarction Date:: 11/2013 History of Any Multi-Drug Resistant Organisms: VRE, VRE Date of last positivie culture/infection: 2016 MDRO Source:: bilat feet Past Surgical History: Adenoidectomy, AICD, Section, Heart Catheterization, Orthopedic Surgery, Pacemaker, Tonsillectomy Additional Past Surgical History / Comment(s): AICD - [employer]. has pacemaker defibrillator, right great toe amputation 04/2016, LT GREAT TOE then left foot partial amputation Past Anesthesia/Blood Transfusion Reactions: Postoperative Nausea & Vomiting ( PONV) Type of Cardiac Device: Permanent Pacemaker, AICD Device Placement Date:: 2011 Past Psychological History: Bipolar Smoking Status: Former smoker Past Drug Use History: Marijuana - Past Family History Mother Family Medical History: Deep Vein Thrombosis (DVT) Additional Family Medical History / Comment(s): Some type of heart problems, kidney failure. Father History Unknown: Yes Family Medical History: Unable to Obtain Additional Family Medical History / Comment(s): Patient denies knowing any medical history on her father. General Exam Limitations: no limitations General appearance: alert, in no apparent distress Head exam: Present: atraumatic Eye exam: Present: normal appearance, PERRL ENT exam: Present: normal oropharynx Neck exam: Present: normal inspection Respiratory exam: Present: normal lung sounds bilaterally. Absent: chest wall tenderness Cardiovascular Exam: Present: regular rate, normal rhythm Expanded Peripheral pulses: 2+: Radial (R), Radial (L), Posterior Tibialis (R), Posterior Tibialis (L) GI/Abdominal exam: Present: soft. Absent: distended, tenderness Extremities exam: Present: other (Amputation of distal left foot). Absent: pedal edema, calf tenderness Neurological exam: Present: alert Psychiatric exam: Present: normal affect, normal mood Skin exam: Present: normal color Course Vital Signs 01/07/19 01/07/19 19:08 20:39 Temperature 98.6 F Pulse Rate 102 H 83 Respiratory 18 18 Rate Blood Pressure 131/78 135/87 O2 Sat by Pulse 98 95 Oximetry EKG Findings - EKG Comments: EKG Findings:: Paced rhythm and 99. ID 172. QRS 110. QT 392. QTC 503. [place] indeterminate. Q waves in inferior and lateral. No acute ST change. Medical Decision Making - Medical Decision Making Patient reevaluated and updated. Symptoms further improved. Patient is resting comfortably in bed. Case was discussed in detail with Dr. Tejeda, who will admit for Dr. Causey. Case also discussed with Dr. Harding, who recommends continuing Eliquis, no heparin. He will consult. - Lab Data Result diagrams: 01/07/19 19:14 01/07/19 19:14 Lab Results 01/07/19 01/07/19 01/07/19 Range/Units 19:14 19:14 19:14 WBC 7.8 (3.8-10.6) k/uL RBC 5.60 H (3.80-5.40) m/uL Hgb 10.4 L (11.4-16.0) gm/dL Hct 36.8 (34.0-46.0) % MCV 65.6 L (80.0-100.0) fL MCH 18.6 L (25.0-35.0) pg MCHC 28.4 L (31.0-37.0) g/dL RDW 18.7 H (11.5-15.5) % Plt Count 291 (150-450) k/uL Neutrophils % 65 % Lymphocytes % 23 % Monocytes % 7 % Eosinophils % 3 % Basophils % 0 % Neutrophils # 5.0 (1.3-7.7) k/uL Lymphocytes # 1.8 (1.0-4.8) k/uL Monocytes # 0.5 (0-1.0) k/uL Eosinophils # 0.2 (0-0.7) k/uL Basophils # 0.0 (0-0.2) k/uL Hypochromasia Marked Poikilocytosis Slight Anisocytosis Slight Microcytosis Marked PT (9.0-12.0) sec INR (<1.2) APTT (22.0-30.0) sec Sodium 139 (137-145) mmol/L Potassium 4.2 (3.5-5.1) mmol/L Chloride 104 (98-107) mmol/L Carbon Dioxide 24 (22-30) mmol/L Anion Gap 11 mmol/L BUN 20 H (7-17) mg/dL Creatinine 0.98 (0.52-1.04) mg/dL Est GFR (CKD-EPI)AfAm 81 (>60 ml/min/1.73 sqM) Est GFR (CKD-EPI)NonAf 70 (>60 ml/min/1.73 sqM) Glucose 98 (74-99) mg/dL Calcium 8.9 (8.4-10.2) mg/dL Magnesium 1.8 (1.6-2.3) mg/dL Total Bilirubin 1.2 (0.2-1.3) mg/dL AST 28 (14-36) U/L ALT 24 (9-52) U/L Alkaline Phosphatase 94 (38-126) U/L Total Creatine Kinase 53 (30-135) U/L CK-MB (CK-2) 1.2 (0.0-2.4) ng/mL CK-MB (CK-2) Rel Index 2.3 Troponin I 0.191 H* (0.000-0.034) ng/mL Total Protein 7.0 (6.3-8.2) g/dL Albumin 3.8 (3.5-5.0) g/dL 01/07/19 Range/Units 19:14 WBC (3.8-10.6) k/uL RBC (3.80-5.40) m/uL Hgb (11.4-16.0) gm/dL Hct (34.0-46.0) % MCV (80.0-100.0) fL MCH (25.0-35.0) pg MCHC (31.0-37.0) g/dL RDW (11.5-15.5) % Plt Count (150-450) k/uL Neutrophils % % Lymphocytes % % Monocytes % % Eosinophils % % Basophils % % Neutrophils # (1.3-7.7) k/uL Lymphocytes # (1.0-4.8) k/uL Monocytes # (0-1.0) k/uL Eosinophils # (0-0.7) k/uL Basophils # (0-0.2) k/uL Hypochromasia Poikilocytosis Anisocytosis Microcytosis PT 12.2 H (9.0-12.0) sec INR 1.2 H (<1.2) APTT 25.6 (22.0-30.0) sec Sodium (137-145) mmol/L Potassium (3.5-5.1) mmol/L Chloride (98-107) mmol/L Carbon Dioxide (22-30) mmol/L Anion Gap mmol/L BUN (7-17) mg/dL Creatinine (0.52-1.04) mg/dL Est GFR (CKD-EPI)AfAm (>60 ml/min/1.73 sqM) Est GFR (CKD-EPI)NonAf (>60 ml/min/1.73 sqM) Glucose (74-99) mg/dL Calcium (8.4-10.2) mg/dL Magnesium (1.6-2.3) mg/dL Total Bilirubin (0.2-1.3) mg/dL AST (14-36) U/L ALT (9-52) U/L Alkaline Phosphatase (38-126) U/L Total Creatine Kinase (30-135) U/L CK-MB (CK-2) (0.0-2.4) ng/mL CK-MB (CK-2) Rel Index Troponin I (0.000-0.034) ng/mL Total Protein (6.3-8.2) g/dL Albumin (3.5-5.0) g/dL Disposition Clinical Impression: NSTEMI (non-ST elevated myocardial infarction) Disposition: ADMITTED IP TO THIS HOSP Is patient prescribed a controlled substance at d/c from ED?: No Referrals: Dylan Causey MD [Primary Care Provider] - 1-2 days Decision Time: 21:07
[2019-01-07 20:09] LABS: Anisocytosis Slight; Basophils % (A) 0 %; Eosinophils # (A) 0.2 k/uL (0-0.7); Eosinophils % (A) 3 %; HCT 36.8 % (34.0-46.0); HGB 10.4 gm/dL (11.4-16.0); Hypochromasia Marked; Lymphocytes # (A) 1.8 k/uL (1.0-4.8); Lymphocytes % (A) 23 %; MCH 18.6 pg (25.0-35.0); MCHC 28.4 g/dL (31.0-37.0); MCV 65.6 fL (80.0-100.0); Microcytosis Marked; Monocytes # (A) 0.5 k/uL (0-1.0); Monocytes % (A) 7 %; Neutrophils % (A) 65 %; Platelet Count 291 k/uL (150-450); Poikilocytosis Slight; RDW 18.7 % (11.5-15.5); WBC 7.8 k/uL (3.8-10.6)
[2019-01-07 20:21] LABS: INR 1.2 (<1.2); Partial Thromboplastin Time 25.6 sec (22.0-30.0); Prothrombin Time 12.2 sec (9.0-12.0)
[2019-01-07 20:23] LABS: Albumin 3.8 g/dL (3.5-5.0); Calcium 8.9 mg/dL (8.4-10.2); Magnesium 1.8 mg/dL (1.6-2.3); Potassium 4.2 mmol/L (3.5-5.1); Total Bilirubin 1.2 mg/dL (0.2-1.3)
[2019-01-07 20:35] LABS: Creatine Kinase MB 1.2 ng/mL (0.0-2.4)
[2019-01-07 20:44] LABS: Troponin I 0.191 ng/mL (0.000-0.034)
[2019-01-07] MEDS ORDERED: ALBUTEROL NEBULIZED 2.5 MG/3 ML INHALATION PRN (21:07)
[2019-01-07] MEDS ORDERED: NITROGLYCERIN SL TABS 0.4 MG TAB SUBLINGUAL PRN (21:09)
--- NOTE | 2019-01-07 21:24 | XR ---
EXAMINATION TYPE: XR chest 2V DATE OF EXAM: 01/07/2019 COMPARISON: 11/18/2018 HISTORY: Chest pain asthma heart attack heart failure TECHNIQUE: Frontal and lateral views of the chest are obtained. FINDINGS: Large occupies overlies left chest. There is mild cardiomegaly. There is some linear opaci ty within the left mid lung field a be some atelectasis. There is mild prominence of the pulmonary vascular markings. No suspicious infiltrates are otherwise identified. IMPRESSION: 1. Cardiomegaly with mild prominence of pulmonary vascular markings. Correlate for volume overload.
[2019-01-07] MEDS ORDERED: MORPHINE SULFATE 4 MG/ML SYRINGE IVP STA (21:28)
[2019-01-07] MEDS: GABAPENTIN 300 MG CAP PO SCH (22:28)
--- NOTE | 2019-01-07 23:09 | HP ---
HISTORY AND PHYSICAL ADDENDUM: Chest x-ray personally reviewed by me shows cardiomegaly, pacemaker leads, no obvious evidence of pulmonary edema. MMODL / IJN: [id number] /
--- NOTE | 2019-01-07 23:30 | HP ---
HISTORY AND PHYSICAL DATE OF ADMISSION: 01/07/2019 DATE OF SERVICE: 01/07/2019 PRESENTING COMPLAINT: Chest pain. HISTORY OF PRESENTING COMPLAINT: This is a pleasant 43-year-old patient follows with Dr. Causey. Chronic stable medical conditions include COPD, diabetes, essential hypertension, hyperlipidemia, cardiomyopathy, EF less than 20%. Also got an AICD in place. The patient now presents with nausea for a few days and developed a burning sensation in the left arm and also left anterior chest wall discomfort lasted for about 20 minutes. When the EMS gave her nitroglycerin and actually helped her. There were some dizziness and no shortness of breath. Hence patient was brought in for the same. Otherwise patient doing rather good. The patient did not smoke for quite a while. REVIEW OF SYSTEMS: CONSTITUTIONAL: None. HEENT: None. RESPIRATORY: None. CARDIOVASCULAR: As above. GASTROINTESTINAL: None. GENITOURINARY: None. MUSCULOSKELETAL none. DERMATOLOGICAL, HEMATOLOGIC, LYMPHATICS: None. PSYCHIATRY: Anxiety controlled. NEUROLOGICAL: Numbness and tingling in the feet. PAST MEDICAL HISTORY: COPD, cardiomyopathy, EF less than 20%, stroke, diabetes mellitus type 2, hypertension, seizure disorder, varicose veins, peripheral neuropathy, diabetic wounds, seizures, some memory and residual speech loss. PAST SURGICAL HISTORY: Adenoidectomy, AICD with [employer], , cardiac catheterization, left foot transmetatarsal amputation. SOCIAL HISTORY: Patient lives with her son. The patient smoked for many years. Stopped about 7 months ago. Has medical marijuana. Denies alcohol. FAMILY HISTORY: DVT, kidney failure. HOME MEDICATIONS: 1. Zestril 2.5 mg q.h.s. 2. NovoLog per scale. 3. Ventolin HFA 2 puffs q.6h p.r.n. 4. Aldactone 25 mg a day. 5. Lantus 40 units subcu daily. 6. Neurontin 600 mg t.i.d. 7. Lasix 40 mg at 3:00 p.m. and 60 mg in the morning. 8. Coreg 625 mg p.o. b.i.d. 9. Eliquis 5 mg b.i.d. ALLERGIES: TO PENICILLIN, ZOFRAN. PHYSICAL EXAMINATION: VITAL SIGNS: On examination vital signs on presentation, temperature 98.6, pulse 102, respiration 18, blood pressure 130/78, pulse ox 98% on 2 L. GENERAL APPEARANCE: Well built, BMI 43.1. Lying in bed, slightly anxious. EYES: Pupils equal. Conjunctivae normal. HEENT: External appearance of nose and ears normal. Oral cavity normal. NECK: JVD not raised. Mass not palpable. RESPIRATORY: Effort normal. LUNGS: Slightly decreased breath sounds. CARDIOVASCULAR: 1st and 2nd sounds normal. No edema. ABDOMEN: Soft, nontender. Liver and spleen not palpable. LYMPHATICS: No lymph nodes palpable in the neck or axilla. PSYCHIATRY: Alert and oriented x3. Mood and affect normal. NEUROLOGICAL: Pupils equal. Cranial nerves grossly intact. INVESTIGATIONS: White count 7.8, hemoglobin 10.4, potassium 4.2, BUN 20, creatinine 0.98. Troponin 0.191. Last troponin was negative on November 19, 2018. EKG shows atrial sensed ventricular paced rhythm. Troponin is 0.191. ASSESSMENT: 1. Possible acute non-Q-wave myocardial infarction. The patient's troponin 0.191, will wait for further serial troponins to kick in. Patient did get Eliquis at home. Dr. Lizama did speak to Dr. Harding from Cardiology about heparin. 2. Chronic congestive heart failure from systolic dysfunction, EF less than 20%, nonischemic. 3. AICD in place. 4. Chronic obstructive pulmonary disease in an ex-smoker. 5. Diabetes mellitus type 2, chronically on insulin. 6. Essential hypertension. 7. Chronic seizure disorder. 8. Peripheral neuropathy from diabetes. 9. AICD. 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 PLAN: Patient's home medications are continued. The patient is put on aspirin. Cardiology was consulted from the ER. Serial cardiac enzymes are in place. Care was discussed with the patient. The patient is currently chest pain free. Copy to Dr. Causey. MMODL / PAWELN: [id number] /
[2019-01-08] MEDS: INSULIN ASPART (NovoLOG) 100 UNIT/ML VIAL SQ SCH ×5 (01:48→20:49)
[2019-01-08 02:26] LABS: Creatine Kinase MB 4.6 ng/mL (0.0-2.4)
[2019-01-08 02:39] LABS: Troponin I 1.38 ng/mL (0.000-0.034)
[2019-01-08 06:08] LABS: Glucose,Whole Blood 107 mg/dL (75-99)
[2019-01-08] MEDS ORDERED: METOCLOPRAMIDE 5 MG/ML 2 ML VIAL IVP PRN (06:46)
--- NOTE | 2019-01-08 08:05 | P.CRDCN ---
History of Present Illness Consult date: 01/08/19 Requesting physician: Kimo Tejeda Consult reason: chest pain Chief complaint: Chest discomfort History of present illness: This is a pleasant 43-year-old female who follows with Dr. VC Roldan in the office. 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 She presents to the hospital on this occasion with symptoms of left arm pain and burning, that radiated into her chest, she states that the symptoms lasted approximately 10 minutes in duration. She also states over the past couple of days that she' s been mildly more short of breath than usual. Chest x-ray on presentation here showed cardiomegaly with mild prominence of pulmonary vascular markings. EKG shows a sensed V paced rhythm. Blood pressure 130/70 with a heart rate of 102, 98% on room air. Blood cell count 7.8, hemoglobin 10.1, platelet count 291. Sodium 139, potassium 4.2, BUN 20 and creatinine 0.9. NEC and level I.8. Troponin 0.19, 1.38. At the time of my examination this morning she is currently chest pain-free. Past Medical History Past Medical History: Asthma, Heart Failure, COPD, CVA/TIA, Diabetes Mellitus, Hypertension, Myocardial Infarction ([place]), Pneumonia, Seizure Disorder, Seizure Disorder Additional Past Medical History / Comment(s): past hx chronic wounds to feet/ toes- amputations to left toes in december 2017 . cardiomyopathy. asthma, varicose veins. Diabetic neuropathy in feet. CVA IN AUGUST 2016 WITH SEIZURES , SOME RESIDUAL MEMORY LOSS. PICC LINE PLACED IN AUGUST 2016 FOR OSTEOMYLITIS BOTH FEET-since removed, DR VILLAREAL MANAGED ANTIBIOTICS Last Myocardial Infarction Date:: 11/2013 History of Any Multi-Drug Resistant Organisms: MRSA, VRE, VRE Date of last positivie culture/infection: 2016 MDRO Source:: bilat feet Past Surgical History: Adenoidectomy, AICD, Section, Heart Catheterization, Orthopedic Surgery, Pacemaker, Tonsillectomy Additional Past Surgical History / Comment(s): AICD - [employer]. has pacemaker defibrillator, right great toe amputation 04/2016, LT GREAT TOE then left foot partial amputation Past Anesthesia/Blood Transfusion Reactions: Postoperative Nausea & Vomiting ( PONV) Type of Cardiac Device: Permanent Pacemaker, AICD Device Placement Date:: 2011 Past Psychological History: Bipolar Additional Psychological History / Comment(s): Single. Lives in the family home with her 2 children, as well as her son-in-law and brother. There are 3 pet cats and a dog in the home. 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 No alcohol or IV drug use. Quit smoking in Oct 2017. Has medical marijuana card and smokes marijuana on a daily basis at bedtime for pain control.. Smoking Status: Former smoker Past Alcohol Use History: None Reported Additional Past Alcohol Use History / Comment(s): Patient was a smoker of a half a pack cigarettes per day for 32 years and quit in June 2018. Past Drug Use History: Marijuana Additional Drug Use History / Comment(s): medical marijuana card not currently using. - Past Family History Mother Family Medical History: Deep Vein Thrombosis (DVT) Additional Family Medical History / Comment(s): Some type of heart problems, kidney failure. Father History Unknown: Yes Family Medical History: Unable to Obtain Additional Family Medical History / Comment(s): Patient denies knowing any medical history on her father. Medications and Allergies Home Medications Medication Instructions Recorded Confirmed Type Carvedilol [Coreg] 25 mg PO BID 03/04/15 01/07/19 History Spironolactone [Aldactone] 25 mg PO DAILY 03/04/15 01/07/19 History Insulin Aspart [NovoLOG See Protocol SQ AC-TID PRN 12/17/16 01/07/19 History (formulary)] Albuterol Inhaler [Ventolin Hfa 2 puff INHALATION RT-Q6H PRN 08/07/17 01/07/19 History Inhaler] Gabapentin [Neurontin] 600 mg PO TID 08/19/17 01/07/19 History Apixaban [Eliquis] 5 mg PO BID 09/13/18 01/07/19 History Lisinopril [Zestril] 2.5 mg PO HS #30 tab 09/19/18 01/07/19 Rx Furosemide [Lasix] 40 mg PO DAILY@1500 11/18/18 01/07/19 History Furosemide [Lasix] 60 mg PO QAM 11/18/18 01/07/19 History Insulin Glargine [Lantus] 40 unit SQ DAILY 11/18/18 01/07/19 History Allergies Allergy/AdvReac Type Severity Reaction Status Date / Time Penicillins Allergy Rash/Hives Verified 01/07/19 19:26 ondansetron [From Zofran] AdvReac Nausea & Verified 01/07/19 19:26 Vomiting Physical Exam Vitals: Vital Signs Temp Pulse Pulse Resp BP BP Pulse Ox 01/08/19 07:18 89 16 01/08/19 07:06 90 16 93 L 01/08/19 03:16 97.2 F L 93 17 146/70 95 01/07/19 22:49 97.1 F L 97 19 133/83 96 01/07/19 21:44 97.8 F 95 17 128/73 96 01/07/19 21:33 97.1 F L 97 19 133/83 96 01/07/19 21:20 77 18 151/89 96 01/07/19 20:39 83 18 135/87 95 01/07/19 19:08 98.6 F 102 H 18 131/78 98 Intake and Output 01/07/19 01/08/19 01/08/19 22:59 06:59 14:59 Other: Voiding Method Toilet Toilet # Voids 1 1 Weight 124.738 kg 126.6 kg PHYSICAL EXAMINATION: GENERAL: 43-year-old female in no acute distress at the time of my examination HEENT: Head is atraumatic, normocephalic. Pupils equal, round. Sclera anicteric. Conjunctiva are clear. Mucous membranes of the mouth are moist. Neck is supple. There is no elevated jugular venous pressure. No carotid bruit is heard. HEART EXAMINATION: Heart S1, S2 normal. No murmur or gallop heard. CHEST EXAMINATION: Lungs reveal diminished air entry to bilateral bases. ABDOMEN: Soft, obese, nontender. Bowel sounds are heard. No organomegaly noted. EXTREMITIES: 1+ peripheral pulses with trace to 1+ evidence of peripheral edema , noted previous amputations of the right great toe and left toes one through 5.. NEUROLOGIC patient is awake, alert and oriented 3 . . Results 01/07/19 19:14 01/07/19 19:14 Cardiac Enzymes 01/07/19 01/07/19 01/08/19 Range/Units 19:14 19:14 01:25 AST 28 (14-36) U/L CK-MB (CK-2) 1.2 4.6 H (0.0-2.4) ng/mL Troponin I 0.191 H* 1.380 H* (0.000-0.034) ng/mL Coagulation 01/07/19 Range/Units 19:14 PT 12.2 H (9.0-12.0) sec APTT 25.6 (22.0-30.0) sec CBC 01/07/19 Range/Units 19:14 WBC 7.8 (3.8-10.6) k/uL RBC 5.60 H (3.80-5.40) m/uL Hgb 10.4 L (11.4-16.0) gm/dL Hct 36.8 (34.0-46.0) % Plt Count 291 (150-450) k/uL Comprehensive Metabolic Panel 01/07/19 Range/Units 19:14 Sodium 139 (137-145) mmol/L Potassium 4.2 (3.5-5.1) mmol/L Chloride 104 (98-107) mmol/L Carbon Dioxide 24 (22-30) mmol/L BUN 20 H (7-17) mg/dL Creatinine 0.98 (0.52-1.04) mg/dL Glucose 98 (74-99) mg/dL Calcium 8.9 (8.4-10.2) mg/dL AST 28 (14-36) U/L ALT 24 (9-52) U/L Alkaline Phosphatase 94 (38-126) U/L Total Protein 7.0 (6.3-8.2) g/dL Albumin 3.8 (3.5-5.0) g/dL Current Medications Generic Name Dose Route Start Last Admin Trade Name Freq PRN Reason Stop Dose Admin Albuterol Sulfate 2.5 mg 01/07/19 21:07 01/08/19 07:06 Ventolin Nebulized INHALATION 2.5 mg RT-Q6H PRN Administration Shortness Of Breath Apixaban 5 mg 01/08/19 09:00 Eliquis PO BID [facility] Aspirin 325 mg 01/08/19 09:00 Aspirin PO DAILY [facility] Carvedilol 25 mg 01/08/19 07:30 Coreg PO BID-W/MEALS [facility] Furosemide 60 mg 01/08/19 09:00 Lasix PO QAM [facility] Furosemide 40 mg 01/08/19 15:00 Lasix PO DAILY@1500 [facility] Gabapentin 600 mg 01/07/19 22:00 01/07/19 22:28 Neurontin PO 600 mg TID [facility] Administration Insulin Aspart 0 unit 01/07/19 22:30 01/08/19 06:39 Novolog SQ Not Given ACHS [facility] Protocol Insulin Detemir 40 unit 01/08/19 09:00 Levemir SQ DAILY [facility] Lisinopril 2.5 mg 01/08/19 21:00 Zestril PO HS [facility] Metoclopramide HCl 10 mg 01/08/19 06:46 01/08/19 06:55 Reglan IVP 10 mg Q6HR PRN Administration Nausea And Vomiting Nitroglycerin 0.4 mg 01/07/19 21:09 Nitrostat SUBLINGUAL Q5M PRN Chest Pain Sodium Chloride 10 ml 01/08/19 09:00 Saline Flush IV BID [facility] Spironolactone 25 mg 01/08/19 09:00 Aldactone PO DAILY [facility] Intake and Output 01/07/19 01/08/19 01/08/19 22:59 06:59 14:59 Other: Voiding Method Toilet Toilet # Voids 1 1 Weight 124.738 kg 126.6 kg 01/07/19 19:14 01/07/19 19:14 EKG Interpretations (text) EKG shows a sensed V paced rhythm Assessment and Plan Plan: Assessment and plan #1 Symptoms of left arm and chest discomfort suggestive of possible angina. Troponins 0.19, 1.38, EKG shows a sensed V paced rhythm. #2 nonischemic cardiomyopathy with prior AICD implantation #3 diabetes #4 hypertension #5 hyperlipidemia #6 asthma #7 history of nicotine dependence #8 chronic systolic congestive heart failure #9 chronic feet ulcers with prior toe amputations, history of osteomyelitis #10 questionable apical thrombus for which the patient takes Eliquis Plan We will obtain an echocardiogram with Doppler study as well as a third troponin. We will also try to obtain records of prior cardiac catheterization. We will decrease her aspirin to 81 mg daily, hold Eliquis. Patient has been advised that she may need to undergo cardiac catheterization, the risks and benefits again were explained to the patient in detail further recommendations to follow. DNP note has been reviewed, I agree with a documented findings and plan of care. Patient was seen and examined.
[2019-01-08] MEDS ORDERED: ALPRAZolam 0.25 MG TAB PO PRN (08:50)
[2019-01-08] MEDS ORDERED: SODIUM CHLORIDE 0.9% 1,000 ML in EMPTY BAG 1 BAG IV ONE (08:50)
[2019-01-08] MEDS ORDERED: NITROGLYCERIN SL TABS 0.4 MG TAB SUBLINGUAL PRN (08:50)
[2019-01-08] MEDS ORDERED: ALPRAZolam 0.5 MG TAB PO PRN (08:50)
[2019-01-08] MEDS ORDERED: ASPIRIN 325 MG TAB PO STA (08:53)
[2019-01-08] MEDS ORDERED: ATORVASTATIN 80 MG TAB PO STA (08:54)
[2019-01-08 08:58] LABS: Cholesterol 101 mg/dL (<200); HDL Cholesterol 31 mg/dL (40-60); LDL Cholesterol,Calculated 57 mg/dL (0-99); Triglycerides 66 mg/dL (<150)
[2019-01-08] MEDS ORDERED: APIXABAN 5 MG TAB PO SCH (09:00)
[2019-01-08] MEDS ORDERED: ASPIRIN 325 MG TAB PO SCH (09:00)
[2019-01-08] MEDS ORDERED: ASPIRIN 81 MG PO SCH (09:00)
[2019-01-08 09:05] LABS: Troponin I 1.81 ng/mL (0.000-0.034)
[2019-01-08] MEDS: APIXABAN 5 MG TAB PO SCH ×2 (09:52→20:26)
[2019-01-08] MEDS: GABAPENTIN 300 MG CAP PO SCH ×3 (09:52→20:26)
[2019-01-08] MEDS: CARVEDILOL 12.5 MG TAB PO SCH ×2 (09:52→17:45)
[2019-01-08] MEDS: FUROSEMIDE 20 MG TAB PO SCH (09:52)
[2019-01-08] MEDS: SPIRONOLACTONE 25 MG TAB PO SCH (09:52)
--- NOTE | 2019-01-08 10:22 | ECHOF ---
Referral Reason:nstemi MEASUREMENTS -------- HEIGHT: 170.2 cm WEIGHT: 126.6 kg BP: IVSd: 1.1 cm (0.6 - 1.1) LVIDd: 7.0 cm (3.9 - 5.3) LVPWd: 1.1 cm (0.6 - 1.1) IVSs: 1.1 cm LVIDs: 6.4 cm LVPWs: 1.2 cm LAESV Index (A-L): 35.08 ml/m Ao Diam: 2.9 cm (2.0 - 3.7) AV Cusp: 2.2 cm (1.5 - 2.6) LA Diam: 3.3 cm (2.7 - 3.8) MV EXCURSION: 15.119 mm (> 18.000) MV EF SLOPE: 51 mm/s (70 - 150) EPSS: 2.4 cm MV E Larry: 0.91 m/s MV DecT: 223 ms MV A Larry: 0.23 m/s MV E/A Ratio: 3.89 RAP: 15.00 mmHg RVSP: 47.23 mmHg FINDINGS -------- Sinus rhythm. Pacerwire seen in RV and RA. AICD This was a technically good study. The left ventricle is severely dilated. Left ventricular wall thickness is normal. There is sever e global hypokinesis of LV . Overall left ventricular systolic function is severely impaired with, an EF < 20%. The right ventricle is normal in size and function. LA is moderately dilated 34-39 ml/m2 The right atrium is normal in size. The aortic valve is trileaflet, and appears structurally normal. No aortic stenosis or regurgitation. Mild mitral regurgitation is present. [id number] tricuspid regurgitation present. There is mild pulmonary hypertension. The right ventricular systolic pressure, as measured by Doppler, is 47.23mmHg. Trace/mild (physiologic) pulmonic regurgitation. The aortic root size is normal. The inferior vena cava is mildly dilated. The pericardium is normal. CONCLUSIONS -------- 1. Sinus rhythm. 2. Pacerwire seen in RV and RA. 3. AICD 4. This was a technically good study. 5. The left ventricle is severely dilated. 6. Left ventricular wall thickness is normal. 7. There is severe global hypokinesis of LV . 8. Overall left ventricular systolic function is severely impaired with, an EF < 20%. 9. The right ventricle is normal in size and function. 10. LA is moderately dilated 34-39 ml/m2 11. The right atrium is normal in size. 12. The aortic valve is trileaflet, and appears structurally normal. No aortic stenosis or regurgitat ion. 13. Mild mitral regurgitation is present. 14. [id number] tricuspid regurgitation present. 15. There is mild pulmonary hypertension. 16. The right ventricular systolic pressure, as measured by Doppler, is 47.23mmHg. 17. Trace/mild (physiologic) pulmonic regurgitation. 18. The aortic root size is normal. 19. The inferior vena cava is mildly dilated. 20. The pericardium is normal. EDITING COMPUTER PUBLISHER: Shilpa Castillo RDCS
[2019-01-08] MEDS: INSULIN DETEMIR (LEVEMIR) 100 UNIT/ML SYR SQ SCH (11:04)
[2019-01-08 11:23] LABS: Glucose,Whole Blood 140 mg/dL (75-99)
[2019-01-08] MEDS ORDERED: FUROSEMIDE 40 MG TAB PO SCH (15:00)
--- NOTE | 2019-01-08 16:34 | PN ---
PROGRESS NOTE DATE OF SERVICE: January 08, 2019. PRESENTING COMPLAINT: Chest pain. INTERVAL HISTORY: Patient with multiple medical problems and cardiomyopathy, ejection fraction less than 20% with an AICD in place, presented with acute non-Q-wave myocardial infarction. No further cardiac symptoms. The patient has been on Eliquis, remains on the same. The patient is symptom-free. Does feel tired. REVIEW OF SYSTEMS: Done for constitutional, cardiovascular, GI, pulmonary; relevant findings as above. CURRENT MEDICATIONS: Reviewed that include Eliquis, Coreg, Lasix, Levemir, Aldactone. PHYSICAL EXAMINATION: VITAL SIGNS: Temperature 98.1, pulse 88, respiration 18, blood pressure 121/73, pulse ox 95% on room air. Sitting on the edge of the bed. Tired-appearing. EYES: Pupils equal. Conjunctivae normal. NECK: JVD not raised. Mass not palpable. Respiratory effort normal. LUNGS: Slightly decreased breath sounds. CARDIOVASCULAR: 1st and 2nd sounds normal. No edema. ABDOMEN: Soft, nontender. Liver and spleen not palpable. PSYCHIATRY: Alert and oriented x3. Mood and affect normal. INVESTIGATIONS: Troponin 0.19, 1.3, 1.8. LDL 57. ASSESSMENT: 1. Acute non-Q-wave myocardial infarction, POA. 2. Chronic congestive heart failure from systolic dysfunction EF less than 20%. AICD in place. 3. Chronic obstructive pulmonary disease in an ex-smoker. 4. Diabetes mellitus type 2, chronically on insulin. 5. Essential hypertension. 6. Chronic seizure disorder. 7. Peripheral neuropathy from diabetes. 8. AICD. 9. Left foot toes amputation, right foot big toe amputation, chronic. PLAN: Patient is on Eliquis, aspirin and beta lupe. We will add Lipitor. The patient is being followed by Cardiology for possible cardiac intervention, cardiac catheterization. Care was discussed with the patient. MMODL / IJN: [id number] /
[2019-01-08 16:43] LABS: Glucose,Whole Blood 159 mg/dL (75-99)
[2019-01-08 20:40] LABS: Glucose,Whole Blood 187 mg/dL (75-99)
[2019-01-08] MEDS ORDERED: LISINOPRIL 2.5 MG TAB PO SCH (21:00)
[2019-01-09 05:58] LABS: Glucose,Whole Blood 90 mg/dL (75-99)
[2019-01-09] MEDS ORDERED: ACETAMINOPHEN TAB 325 MG TAB PO PRN (06:17)
[2019-01-09 06:20] LABS: Calcium 8.8 mg/dL (8.4-10.2); Potassium 3.8 mmol/L (3.5-5.1)
[2019-01-09] MEDS: CARVEDILOL 12.5 MG TAB PO SCH (06:27)
[2019-01-09] MEDS: INSULIN ASPART (NovoLOG) 100 UNIT/ML VIAL SQ SCH ×2 (06:28→11:59)
[2019-01-09] MEDS: INSULIN DETEMIR (LEVEMIR) 100 UNIT/ML SYR SQ SCH (08:32)
[2019-01-09 08:37] VITALS: RESP 16; TEMP 98.2
[2019-01-09] MEDS ORDERED: ASPIRIN 81 MG PO SCH (09:00)
[2019-01-09] MEDS: APIXABAN 5 MG TAB PO SCH (09:01)
[2019-01-09] MEDS: SPIRONOLACTONE 25 MG TAB PO SCH (09:01)
[2019-01-09] MEDS: FUROSEMIDE 20 MG TAB PO SCH (09:01)
[2019-01-09] MEDS: GABAPENTIN 300 MG CAP PO SCH (09:01)
[2019-01-09 11:38] LABS: Glucose,Whole Blood 101 mg/dL (75-99)
--- NOTE | 2019-01-09 11:50 | P.DS ---
Providers Date of admission: 01/07/19 21:11 Attending physician: Kimo Tejeda Consults: 01/07/19 21:09 Consult Physician Urgent Consulting Provider: Emily Harding Consult Reason/Comments: nstemi Do you want consulting provider notified?: Already Contacted Primary care physician: Dylan Naval Hospital Course: 38-year-old female patient with known history of cardio myopathy ejection fraction 20% came in with left shoulder pain and epigastric abdominal burning sensation found to have troponins of 0.191 and 1.380. Patient had similar elevation in the past after which patient underwent cardiac catheterization which did not show any significant atherosclerotic occlusive disease discussed with cardiology unsure why her troponins are elevated as patient recent cardiac catheterization did not show any atherosclerotic coronary occlusive disease and not recommending a repeat cardiac catheterization if cleared by cardiology patient will be discharged today patient is euvolemic at this time. PHYSICAL EXAMINATION: GENERAL: The patient is alert and oriented x3, not in any acute distress. Well developed, well nourished. HEENT: Pupils are round and equally reacting to light. EOMI. No scleral icterus. No conjunctival pallor. Normocephalic, atraumatic. No pharyngeal erythema. No thyromegaly. CARDIOVASCULAR: S1 and S2 present. No murmurs, rubs, or gallops. PULMONARY: Chest is clear to auscultation, no wheezing or crackles. ABDOMEN: Soft, nontender, nondistended, normoactive bowel sounds. No palpable organomegaly. MUSCULOSKELETAL: No joint swelling or deformity. EXTREMITIES: No cyanosis, clubbing, or pedal edema. NEUROLOGICAL: Gross neurological examination did not reveal any focal deficits. SKIN: No rashes. For other chronic medical problems aspiration causes please refer to progress note from from yesterday. Plan - Discharge Summary New Discharge Prescriptions: New Omeprazole [PriLOSEC] 40 mg PO AC-BRKFST #14 capsule. Continue Spironolactone [Aldactone] 25 mg PO DAILY Carvedilol [Coreg] 25 mg PO BID Insulin Aspart [NovoLOG (formulary)] See Protocol SQ AC-TID PRN PRN Reason: HIGH BLOOD SUGAR Albuterol Inhaler [Ventolin Hfa Inhaler] 2 puff INHALATION RT-Q6H PRN PRN Reason: Shortness Of Breath Gabapentin [Neurontin] 600 mg PO TID Apixaban [Eliquis] 5 mg PO BID Lisinopril [Zestril] 2.5 mg PO HS #30 tab Furosemide [Lasix] 40 mg PO DAILY@1500 Insulin Glargine [Lantus] 40 unit SQ DAILY Furosemide [Lasix] 60 mg PO QAM Discharge Medication List Carvedilol [Coreg] 25 mg PO BID 03/04/15 [History] Spironolactone [Aldactone] 25 mg PO DAILY 03/04/15 [History] Insulin Aspart [NovoLOG (formulary)] See Protocol SQ AC-TID PRN 12/17/16 [ History] Albuterol Inhaler [Ventolin Hfa Inhaler] 2 puff INHALATION RT-Q6H PRN 08/07/17 [ History] Gabapentin [Neurontin] 600 mg PO TID 08/19/17 [History] Apixaban [Eliquis] 5 mg PO BID 09/13/18 [History] Lisinopril [Zestril] 2.5 mg PO HS #30 tab 09/19/18 [Rx] Furosemide [Lasix] 40 mg PO DAILY@1500 11/18/18 [History] Furosemide [Lasix] 60 mg PO QAM 11/18/18 [History] Insulin Glargine [Lantus] 40 unit SQ DAILY 11/18/18 [History] Omeprazole [PriLOSEC] 40 mg PO AC-BRKFST #14 capsule. 01/09/19 [Rx] Follow up Appointment(s)/Referral(s): Dylan Causey MD [Primary Care Provider] - 01/17/19 11:40 am (Tuesday) El Roldan MD [STAFF PHYSICIAN] - 01/30/19 10:45 am Discharge Disposition: HOME SELF-CARE
[2019-01-09 12:00] VITALS: BP 118/70; PULSE 72
--- NOTE | 2019-01-09 14:08 | P.PN ---
Subjective Progress Note Date: 01/09/19 This is a pleasant 43-year-old female who follows with Dr. VC Roldan in the office. 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 She presents to the hospital on this occasion with symptoms of left arm pain and burning, that radiated into her chest, she states that the symptoms lasted approximately 10 minutes in duration. She also states over the past couple of days that she' s been mildly more short of breath than usual. Chest x-ray on presentation here showed cardiomegaly with mild prominence of pulmonary vascular markings. EKG shows a sensed V paced rhythm. Blood pressure 130/70 with a heart rate of 102, 98% on room air. Blood cell count 7.8, hemoglobin 10.1, platelet count 291. Sodium 139, potassium 4.2, BUN 20 and creatinine 0.9. NEC and level I.8. Troponin 0.19, 1.38. At the time of my examination this morning she is currently chest pain-free. 01/09/2019 Patient did have a cardiac catheterization performed at [facility] in June of last year which we reviewed yesterday. During that admission her troponin had gone up to 4, cardiac catheterization did not reveal any obstructive coronary artery disease. She did have one brief episode of chest discomfort earlier this morning, sharp in nature, atypical, relieved with Tylenol. From our perspective she may be able to be discharged home today to follow-up with Dr. VC Roldan in the office post discharge. Objective - Vital Signs Vital signs: Vital Signs Temp 98.2 F 01/09/19 08:30 Pulse 72 01/09/19 11:45 Resp 16 01/09/19 11:45 BP 118/70 01/09/19 11:45 Pulse Ox 97 01/09/19 11:45 Intake & Output 01/08/19 01/09/19 01/09/19 18:59 06:59 18:59 Intake Total 720 Output Total 1000 Balance -1000 720 Weight 126.1 kg Intake: Oral 720 Output: Urine 1000 Other: Voiding Method Toilet Toilet Toilet # Voids 2 1 1 - Exam PHYSICAL EXAMINATION: GENERAL: 43-year-old female in no acute distress at the time of my examination HEENT: Head is atraumatic, normocephalic. Pupils equal, round. Sclera anicteric. Conjunctiva are clear. Mucous membranes of the mouth are moist. Neck is supple. There is no elevated jugular venous pressure. No carotid bruit is heard. HEART EXAMINATION: Heart S1, S2 normal. No murmur or gallop heard. CHEST EXAMINATION: Lungs reveal diminished air entry to bilateral bases. ABDOMEN: Soft, obese, nontender. Bowel sounds are heard. No organomegaly noted. EXTREMITIES: 1+ peripheral pulses with trace to 1+ evidence of peripheral edema , noted previous amputations of the right great toe and left toes one through 5.. NEUROLOGIC patient is awake, alert and oriented 3 . - Labs CBC & Chem 7: 01/07/19 19:14 01/09/19 04:55 Labs: Abnormal Lab Results - Last 24 Hours (Table) 01/08/19 01/08/19 01/09/19 Range/Units 16:36 20:38 04:55 BUN 20 H (7-17) mg/dL POC Glucose (mg/dL) 159 H 187 H (75-99) mg/dL 01/09/19 Range/Units 11:15 BUN (7-17) mg/dL POC Glucose (mg/dL) 101 H (75-99) mg/dL Assessment and Plan Plan: Assessment and plan #1 Symptoms of left arm and chest discomfort suggestive of possible angina. Troponins 0.19, 1.38, EKG shows a sensed V paced rhythm. Cardiac catheterization performed in June 2018 at [facility], revealed normal coronary arteries. #2 nonischemic cardiomyopathy with prior AICD implantation #3 diabetes #4 hypertension #5 hyperlipidemia #6 asthma #7 history of nicotine dependence #8 chronic systolic congestive heart failure #9 chronic feet ulcers with prior toe amputations, history of osteomyelitis #10 questionable apical thrombus for which the patient takes Eliquis Plan From cardiology's perspective, patient may be able to be discharged home today. We will make her a follow-up appointment to see Dr. VC Roldan in the office post discharge. DNP note has been reviewed, I agree with a documented findings and plan of care. Patient was seen and examined.
[2019-01-09] MEDS ORDERED: ATORVASTATIN 80 MG TAB PO SCH (23:00)
== END 2019-01-09 15:17 | disposition home or self-care (01) | DRG 281 ==
LOC: EC 19:00 → 3SCARD 21:11
PROVIDERS: ADMIT Hospitalist; ATTEND Hospitalist
DX: I21.4 Non-ST elevation (NSTEMI) myocardial infarction (principal); I42.9 Cardiomyopathy, unspecified; I50.22 Chronic systolic (congestive) heart failure; E11.42 Type 2 diabetes mellitus with diabetic polyneuropathy; E78.5 Hyperlipidemia, unspecified; G40.909 Epilepsy, unspecified, not intractable, without status epilepticus; I11.0 Hypertensive heart disease with heart failure; I25.2 Old myocardial infarction; J44.9 Chronic obstructive pulmonary disease, unspecified; Z79.01 Long term (current) use of anticoagulants; Z79.4 Long term (current) use of insulin; Z79.899 Other long term (current) drug therapy; Z86.73 Personal history of transient ischemic attack (TIA), and cerebral infarction without residual deficits; Z87.891 Personal history of nicotine dependence; Z89.432 Acquired absence of left foot; Z95.810 Presence of automatic (implantable) cardiac defibrillator; Z83.2 Family history of diseases of the blood and blood-forming organs and certain disorders involving the immune mechanism; Z84.1 Family history of disorders of kidney and ureter; Z82.49 Family history of ischemic heart disease and other diseases of the circulatory system; I51.3 Intracardiac thrombosis, not elsewhere classified; R41.3 Other amnesia; Z56.0 Unemployment, unspecified; Z86.14 Personal history of Methicillin resistant Staphylococcus aureus infection; Z88.0 Allergy status to penicillin; Z88.8 Allergy status to other drugs, medicaments and biological substances; Z87.01 Personal history of pneumonia (recurrent)
CPT/HCPCS: 36415; 71046; 80048; 80053; 80061; 82550; 82553; 83735; 84484; 85025; 85610; 85730; 93306; 94640; 94760; 99285

== ENCOUNTER 2019-03-15 15:38 | Observation (INO) | payer MEDICARE, OTHER ==
--- NOTE | 2019-03-15 16:22 | ED ---
SOB HPI - General Chief Complaint: Shortness of Breath Stated Complaint: vince, feet swelling Hx CHF Time Seen by Provider: 03/15/19 16:17 Source: patient, RN notes reviewed, old records reviewed Mode of arrival: wheelchair Limitations: no limitations - History of Present Illness Initial Comments: his is a 43-year-old female the ER for evaluation. Patient was essay for shortness of breath history of heart disease history of heart failure coming in with similar complaints. States her heart is in the [place], states that she has ejection rate of about 15%. No recent travel history no known sick contacts. MD Complaint: shortness of breath, cough -: days(s) Radiation: other (No pain) Consistency: constant Improves With: nothing Worsens With: exertion Known History Of: congestive heart failure Associated Symptoms: palpitations Treatments Prior to Arrival: none - Related Data Home Medications Medication Instructions Recorded Confirmed Carvedilol [Coreg] 25 mg PO BID 03/04/15 03/15/19 Spironolactone [Aldactone] 25 mg PO DAILY 03/04/15 03/15/19 INSULIN ASPART (NovoLOG) [NovoLOG 5 unit SQ AC-TID PRN 12/17/16 03/15/19 (formulary)] Apixaban [Eliquis] 5 mg PO BID 09/13/18 03/15/19 Insulin Glargine [Lantus] 30 unit SQ DAILY 11/18/18 03/15/19 Albuterol Nebulized [Ventolin 2.5 mg INHALATION RT-Q6H PRN 03/15/19 03/15/19 Nebulized] Furosemide [Lasix] 60 mg PO BID 03/15/19 03/15/19 Omeprazole [PriLOSEC] 40 mg PO HS 03/15/19 03/15/19 Previous Rx's Medication Instructions Recorded Lisinopril [Zestril] 2.5 mg PO HS #30 tab 09/19/18 Atorvastatin [Lipitor] 80 mg PO HS #30 tab 01/09/19 Gabapentin [Neurontin] 600 mg PO TID #90 tablet 01/09/19 Allergies Allergy/AdvReac Type Severity Reaction Status Date / Time Penicillins Allergy Rash/Hives Verified 03/15/19 16:59 ondansetron [From Zofran] AdvReac Nausea & Verified 03/15/19 16:59 Vomiting Review of Systems ROS Statement: Those systems with pertinent positive or pertinent negative responses have been documented in the HPI. ROS Other: All systems not noted in ROS Statement are negative. Past Medical History Past Medical History: Asthma, Heart Failure, COPD, CVA/TIA, Diabetes Mellitus, Hypertension, Myocardial Infarction ([place]), Pneumonia, Seizure Disorder, Seizure Disorder Additional Past Medical History / Comment(s): past hx chronic wounds to feet/toes- amputations to left toes in december 2017 . cardiomyopathy. asthma, varicose veins. Diabetic neuropathy in feet. CVA IN AUGUST 2016 WITH SEIZURES, SOME RESIDUAL MEMORY LOSS. PICC LINE PLACED IN AUGUST 2016 FOR OSTEOMYLITIS BOTH FEET-since removed, DR VILLAREAL MANAGED ANTIBIOTICS Last Myocardial Infarction Date:: 11/2013 History of Any Multi-Drug Resistant Organisms: MRSA, VRE, VRE Date of last positivie culture/infection: 2016 MDRO Source:: bilat feet Past Surgical History: Adenoidectomy, AICD, Section, Heart Catheterization, Orthopedic Surgery, Pacemaker, Tonsillectomy Additional Past Surgical History / Comment(s): AICD - [employer]. has pacemaker defibrillator, right great toe amputation 04/2016, LT GREAT TOE then left foot partial amputation Past Anesthesia/Blood Transfusion Reactions: Postoperative Nausea & Vomiting (PONV) Type of Cardiac Device: Permanent Pacemaker, AICD Device Placement Date:: 2011 Past Psychological History: Bipolar Smoking Status: Former smoker Past Alcohol Use History: None Reported Past Drug Use History: Marijuana - Past Family History Mother Family Medical History: Deep Vein Thrombosis (DVT) Additional Family Medical History / Comment(s): Some type of heart problems, kidney failure. Father History Unknown: Yes Family Medical History: Unable to Obtain Additional Family Medical History / Comment(s): Patient denies knowing any medical history on her father. General Exam Limitations: no limitations General appearance: alert, in no apparent distress Head exam: Present: atraumatic, normocephalic, normal inspection Eye exam: Present: normal appearance, PERRL, EOMI. Absent: scleral icterus, conjunctival injection, periorbital swelling ENT exam: Present: normal exam, mucous membranes moist Neck exam: Present: normal inspection. Absent: tenderness, meningismus, lymphadenopathy Respiratory exam: Present: normal lung sounds bilaterally. Absent: respiratory distress, wheezes, rales, rhonchi, stridor Cardiovascular Exam: Present: regular rate, normal rhythm, normal heart sounds. Absent: systolic murmur, diastolic murmur, rubs, gallop, clicks GI/Abdominal exam: Present: soft, normal bowel sounds. Absent: distended, tenderness, guarding, rebound, rigid Extremities exam: Present: normal inspection, full ROM, normal capillary refill. Absent: tenderness, pedal edema, joint swelling, calf tenderness Back exam: Present: normal inspection Neurological exam: Present: alert, oriented X3, CN II-XII intact Psychiatric exam: Present: normal affect, normal mood Skin exam: Present: warm, dry, intact, normal color. Absent: rash Course Vital Signs 03/15/19 03/15/19 03/15/19 16:03 17:10 17:27 Temperature 98.4 F Pulse Rate 90 93 101 H Respiratory 18 20 Rate Blood Pressure 143/100 O2 Sat by Pulse 97 Oximetry 03/15/19 17:45 Temperature Pulse Rate 105 H Respiratory Rate Blood Pressure O2 Sat by Pulse Oximetry - Reevaluation(s) Reevaluation #1: 03/15/19 18:07 Medical record is reviewed multiple ER visits and hospitalizations for similar Reevaluation #2: 03/15/19 18:07 Patient is feeling better Medical Decision Making - Medical Decision Making 43 female the ER for eversion shortness of breath with CHF exacerbation will admit for diuresis - Lab Data Result diagrams: 03/15/19 16:40 03/15/19 16:40 Lab Results 03/15/19 03/15/19 03/15/19 Range/Units 16:40 16:40 16:40 WBC 8.4 (3.8-10.6) k/uL RBC 4.99 (3.80-5.40) m/uL Hgb 11.1 L (11.4-16.0) gm/dL Hct 36.9 (34.0-46.0) % MCV 74.0 L (80.0-100.0) fL MCH 22.2 L (25.0-35.0) pg MCHC 30.0 L (31.0-37.0) g/dL RDW 20.3 H (11.5-15.5) % Plt Count 284 (150-450) k/uL Neutrophils % 73 % Lymphocytes % 18 % Monocytes % 3 % Eosinophils % 5 % Basophils % 0 % Neutrophils # 6.1 (1.3-7.7) k/uL Lymphocytes # 1.5 (1.0-4.8) k/uL Monocytes # 0.3 (0-1.0) k/uL Eosinophils # 0.4 (0-0.7) k/uL Basophils # 0.0 (0-0.2) k/uL Hypochromasia Marked Poikilocytosis Slight Anisocytosis Moderate Microcytosis Marked PT (9.0-12.0) sec INR (<1.2) APTT (22.0-30.0) sec Sodium 137 (137-145) mmol/L Potassium 4.8 (3.5-5.1) mmol/L Chloride 103 (98-107) mmol/L Carbon Dioxide 24 (22-30) mmol/L Anion Gap 10 mmol/L BUN 18 H (7-17) mg/dL Creatinine 0.75 (0.52-1.04) mg/dL Est GFR (CKD-EPI)AfAm >90 (>60 ml/min/1.73 sqM) Est GFR (CKD-EPI)NonAf >90 (>60 ml/min/1.73 sqM) Glucose 171 H (74-99) mg/dL Calcium 9.0 (8.4-10.2) mg/dL Magnesium 1.9 (1.6-2.3) mg/dL Total Bilirubin 0.9 (0.2-1.3) mg/dL AST 32 (14-36) U/L ALT 20 (9-52) U/L Alkaline Phosphatase 107 (38-126) U/L Troponin I (0.000-0.034) ng/mL NT-Pro-B Natriuret Pep 2960 pg/mL Total Protein 7.1 (6.3-8.2) g/dL Albumin 4.0 (3.5-5.0) g/dL 03/15/19 03/15/19 Range/Units 16:40 17:12 WBC (3.8-10.6) k/uL RBC (3.80-5.40) m/uL Hgb (11.4-16.0) gm/dL Hct (34.0-46.0) % MCV (80.0-100.0) fL MCH (25.0-35.0) pg MCHC (31.0-37.0) g/dL RDW (11.5-15.5) % Plt Count (150-450) k/uL Neutrophils % % Lymphocytes % % Monocytes % % Eosinophils % % Basophils % % Neutrophils # (1.3-7.7) k/uL Lymphocytes # (1.0-4.8) k/uL Monocytes # (0-1.0) k/uL Eosinophils # (0-0.7) k/uL Basophils # (0-0.2) k/uL Hypochromasia Poikilocytosis Anisocytosis Microcytosis PT 11.4 (9.0-12.0) sec INR 1.1 (<1.2) APTT 23.9 (22.0-30.0) sec Sodium (137-145) mmol/L Potassium (3.5-5.1) mmol/L Chloride (98-107) mmol/L Carbon Dioxide (22-30) mmol/L Anion Gap mmol/L BUN (7-17) mg/dL Creatinine (0.52-1.04) mg/dL Est GFR (CKD-EPI)AfAm (>60 ml/min/1.73 sqM) Est GFR (CKD-EPI)NonAf (>60 ml/min/1.73 sqM) Glucose (74-99) mg/dL Calcium (8.4-10.2) mg/dL Magnesium (1.6-2.3) mg/dL Total Bilirubin (0.2-1.3) mg/dL AST (14-36) U/L ALT (9-52) U/L Alkaline Phosphatase (38-126) U/L Troponin I <0.012 (0.000-0.034) ng/mL NT-Pro-B Natriuret Pep pg/mL Total Protein (6.3-8.2) g/dL Albumin (3.5-5.0) g/dL - EKG Data -: EKG Interpreted by Me (EKG shows paced rhythm rate of 98, DE 1:30, QRS 144, QTc 469) - Radiology Data Radiology results: report reviewed (Chest x-ray shows no significant worsening, mild pulmonary edema), image reviewed Disposition Clinical Impression: Congestive heart failure, Shortness of breath, History of cardiomyopathy Disposition: ADMITTED IP TO THIS [facility] Condition: Undetermined Is patient prescribed a controlled substance at d/c from ED?: No Referrals: Dylan Causey MD [Primary Care Provider] - 1-2 days
[2019-03-15] MEDS ORDERED: IPRATROPIUM 0.5 MG/2.5 ML NEBU INHALATION STA (16:24)
[2019-03-15] MEDS ORDERED: methylPREDNISolone SOD SUCCI 125 MG/2 ML VIAL IV STA (16:24)
[2019-03-15] MEDS ORDERED: ALBUTEROL NEBULIZED 2.5 MG/3 ML INHALATION STA (16:24)
[2019-03-15 16:48] LABS: Anisocytosis Moderate; Basophils % (A) 0 %; Eosinophils # (A) 0.4 k/uL (0-0.7); Eosinophils % (A) 5 %; HCT 36.9 % (34.0-46.0); HGB 11.1 gm/dL (11.4-16.0); Hypochromasia Marked; Lymphocytes # (A) 1.5 k/uL (1.0-4.8); Lymphocytes % (A) 18 %; MCH 22.2 pg (25.0-35.0); Mean Platelet Volume 7.2; Microcytosis Marked; Monocytes # (A) 0.3 k/uL (0-1.0); Monocytes % (A) 3 %; Neutrophils # (A) 6.1 k/uL (1.3-7.7); Neutrophils % (A) 73 %; Platelet Count 284 k/uL (150-450); Poikilocytosis Slight; RBC 4.99 m/uL (3.80-5.40); RDW 20.3 % (11.5-15.5); WBC 8.4 k/uL (3.8-10.6)
[2019-03-15 16:56] LABS: ALT 20 U/L (9-52); AST 32 U/L (14-36); Alkaline Phosphatase 107 U/L (38-126); Anion Gap 10 mmol/L; Blood Urea Nitrogen 18 mg/dL (7-17); Carbon Dioxide 24 mmol/L (22-30); Chloride 103 mmol/L (98-107); Glucose 171 mg/dL (74-99); Magnesium 1.9 mg/dL (1.6-2.3); Sodium 137 mmol/L (137-145); Total Bilirubin 0.9 mg/dL (0.2-1.3); Total Protein 7.1 g/dL (6.3-8.2)
[2019-03-15 17:08] LABS: Potassium 4.8 mmol/L (3.5-5.1)
--- NOTE | 2019-03-15 17:22 | XR ---
EXAMINATION TYPE: XR chest 2V DATE OF EXAM: 03/15/2019 COMPARISON: 01/07/2019 HISTORY: Difficulty breathing TECHNIQUE: Frontal and lateral views of the chest are obtained. FINDINGS: Heart is enlarged. There is coarsening of the lung markings. There is left axillary pacema ker with the lead tips in the right ventricle. There are chest leads. There is linear density in the left midlung. IMPRESSION: Subsegmental atelectasis in the left midlung. No heart failure. Mild cardiomegaly. Chest is improved slightly compared to old exam.
[2019-03-15 17:42] LABS: INR 1.1 (<1.2); Partial Thromboplastin Time 23.9 sec (22.0-30.0); Prothrombin Time 11.4 sec (9.0-12.0)
[2019-03-15] MEDS ORDERED: IPRATROPIUM-ALBUTEROL 3 ML NEB INHALATION STA (18:04)
[2019-03-15] MEDS ORDERED: FUROSEMIDE 10 MG/ML 4 ML VIAL IV SCH (20:00)
[2019-03-15] MEDS ORDERED: INSULIN ASPART (NovoLOG) 100 UNIT/ML VIAL SQ PRN (20:55)
[2019-03-15] MEDS ORDERED: ALBUTEROL NEBULIZED 2.5 MG/3 ML INHALATION PRN (20:55)
[2019-03-15] MEDS ORDERED: LISINOPRIL 2.5 MG TAB PO SCH (21:00)
[2019-03-15] MEDS ORDERED: ATORVASTATIN 80 MG TAB PO SCH (21:00)
[2019-03-15] MEDS ORDERED: PANTOPRAZOLE 40 MG TABLET PO SCH (21:00)
[2019-03-15] MEDS: ACETAMINOPHEN TAB 325 MG TAB PO PRN (21:14)
[2019-03-15] MEDS: APIXABAN 5 MG TAB PO SCH (21:14)
[2019-03-15] MEDS: GABAPENTIN 300 MG CAP PO SCH (21:14)
[2019-03-15] MEDS ORDERED: MAGNESIUM HYDROXIDE 2,400 MG/10 ML CUP PO PRN (22:17)
[2019-03-15] MEDS ORDERED: CALCIUM CARBONATE 500 MG CHEWABLE PO PRN (22:17)
[2019-03-15] MEDS ORDERED: ONDANSETRON 4 MG/2 ML VIAL IVP PRN (22:17)
[2019-03-15] MEDS ORDERED: ALPRAZolam 0.25 MG TAB PO PRN (22:17)
--- NOTE | 2019-03-15 23:23 | HP ---
HISTORY AND PHYSICAL DATE OF ADMISSION: 03/15/2019 PRESENTING COMPLAINT: Short of breath. HISTORY OF PRESENTING COMPLAINT: This is a pleasant 43-year-old patient, well known to me, follows with Dr. Causey. Chronic stable medical conditions include COPD, diabetes, essential hypertension, hyperlipidemia, AICD. The patient has known congestive heart failure, EF of less than 20%. The patient presents with increasing shortness of breath going on for about 3-4 days, with increasing edema of the lower extremities. The patient also became orthopneic. No cough. No fever. No chills. The patient feels CHF is coming on. She tried to increase the Lasix and did not help and decided to come in. Chest x-ray from the ER was compatible with the same. REVIEW OF SYSTEMS: CONSTITUTIONAL: Tired. HEENT None. RESPIRATORY as above. CARDIOVASCULAR: As above. GASTROINTESTINAL: None. GENITOURINARY: None. MUSCULOSKELETAL none. DERMATOLOGICAL: None. HEMATOLOGICAL: None. LYMPHATICS: None. PSYCHIATRY none. NEUROLOGICAL: Numbness and tingling in the feet. PAST MEDICAL HISTORY: COPD, cardiomyopathy, EF less than 20%, stroke, diabetes, hypertension, seizure disorder, varicose and peripheral neuropathy. Diabetes: Seizures. Memory and some residual speech loss. PAST SURGICAL HISTORY: Adenoidectomy, AICD with [employer], , cardiac catheterization, left foot transmetatarsal amputation. SOCIAL HISTORY: Lives with her son. Smoked for many years, stopped close to a year ago and did medical marijuana. No alcohol. FAMILY HISTORY: DVT and kidney failure. HOME MEDICATIONS: 1. Aldactone 25 mg a day. 2. Prilosec 40 mg q.h.s. 3. Zestril 2.5 q.h.s. 4. Lantus 30 units subcu daily. 5. NovoLog 5 units a.c. t.i.d. 6. Neurontin 600 mg t.i.d. 7. Lasix 60 mg b.i.d. 8. Coreg 25 p.o. b.i.d. 9. Lipitor 80 mg at bedtime. 10.Eliquis 5 mg b.i.d. 11.Ventolin 2.5 q.6h p.r.n. ALLERGIES: PENICILLIN, ZOFRAN. PHYSICAL EXAMINATION: VITAL SIGNS: Vital signs on presentation: Afebrile. Pulse 105, respirations 20, blood pressure 125/81, pulse ox 100 percent on room air. GENERAL APPEARANCE: Well built BMI 43. Sitting up, slightly short of breath. EYES: Pupils are equal. Conjunctivae normal. HEENT: External appearance of nose and ears normal. Oral cavity normal. NECK: JVD possibly raised. Mass not palpable. RESPIRATORY: Effort increased. LUNGS: Decreased breath sounds. CARDIOVASCULAR: 1st and 2nd sounds normal. Gross edema present. ABDOMEN: Distended, soft. Liver and spleen not palpable. LYMPHATICS: No lymph nodes palpable in neck or axillae. PSYCHIATRY: Alert and oriented x3. Mood and affect normal. NEUROLOGICAL: Pupils equal. Cranial nerves grossly intact. Power and sensation grossly intact. INVESTIGATIONS: White count 8.4, hemoglobin 9.1, platelets 284. Potassium 4.8, BUN 18, creatinine 0.75. ProBNP 2960. Troponin less than 0.012. Chest x-ray film personally reviewed by me shows cardiomegaly and pulmonary edema. EKG tracing personally reviewed by me shows a paced rhythm. ASSESSMENT: 1. Acute on chronic congestive heart failure exacerbation from systolic dysfunction, ejection fraction 20%. 2. AICD. 3. Chronic obstructive pulmonary disease in an ex-smoker. 4. Diabetes mellitus type 2, chronically on insulin. 5. Essential hypertension. 6. Chronic seizure disorder. 7. Peripheral neuropathy from diabetes. 8. Right foot big toe amputation and left foot toes transmetatarsal amputation. PLAN: Patient is put on an IV Lasix 60 mg q.8h. Home medications are resumed. Care was discussed with the patient. Questions were answered. Electrolytes will be followed closely. We will also fluid restrict the patient to 1500 mL a day in addition to fluid restriction. Copy to Dr. Causey. MMEDINL / PAWELN: [id number] /
[2019-03-16] MEDS: FUROSEMIDE 10 MG/ML 4 ML VIAL IV SCH ×2 (00:13→00:14)
[2019-03-16] MEDS ORDERED: MELATONIN 3 MG TABLET PO PRN (00:30)
[2019-03-16 03:47] VITALS: RESP 18
[2019-03-16] MEDS: IPRATROPIUM-ALBUTEROL 3 ML NEB INHALATION SCH ×2 (07:06→12:36)
[2019-03-16] MEDS ORDERED: CARVEDILOL 12.5 MG TAB PO SCH (07:30)
[2019-03-16] MEDS: ACETAMINOPHEN TAB 325 MG TAB PO PRN (08:48)
[2019-03-16] MEDS: APIXABAN 5 MG TAB PO SCH (08:48)
[2019-03-16] MEDS: GABAPENTIN 300 MG CAP PO SCH (08:49)
[2019-03-16] MEDS: INSULIN ASPART (NovoLOG) 100 UNIT/ML VIAL SQ SCH ×2 (08:50→12:27)
[2019-03-16 08:51] LABS: Glucose,Whole Blood 268 mg/dL (75-99)
[2019-03-16 08:53] LABS: Chloride 99 mmol/L (98-107)
[2019-03-16 08:54] LABS: Anion Gap 12 mmol/L; Blood Urea Nitrogen 21 mg/dL (7-17); Carbon Dioxide 26 mmol/L (22-30); Glucose 260 mg/dL (74-99); Sodium 137 mmol/L (137-145)
[2019-03-16] MEDS ORDERED: INSULIN DETEMIR (LEVEMIR) 100 UNIT/ML SYR SQ SCH (09:00)
[2019-03-16] MEDS ORDERED: LACTULOSE 20 GM/30 ML CUP PO PRN (09:00)
[2019-03-16] MEDS ORDERED: SPIRONOLACTONE 25 MG TAB PO SCH (09:00)
[2019-03-16] MEDS ORDERED: FUROSEMIDE 80 MG TAB PO SCH (09:00)
[2019-03-16 11:38] VITALS: BP 115/75; TEMP 97.8
[2019-03-16 11:50] LABS: Glucose,Whole Blood 253 mg/dL (75-99)
[2019-03-16 12:44] VITALS: PULSE 96
--- NOTE | 2019-03-16 16:57 | CONS ---
CONSULTATION DATE OF SERVICE: This is a 43-year-old lady with a history of diabetes mellitus, obesity, hypertension, nonischemic cardiomyopathy with a known history of congestive heart failure, for which she takes [id number] medications. She came into the hospital complaining of some shortness of breath. Apparently she sees Dr. Causey in the outpatient setting and Dr. Riley. She is also known to have an ICD for nonischemic cardiomyopathy. She came in with increasing shortness of breath of about 3-4 days' duration with some edema of lower extremities. She indicates to me that she was taking her medications and she has been fairly compliant with it. She is also known to have peripheral artery disease with some amputation of her toes in the left leg as well as the big toe on the right lower extremity. She also has other comorbid conditions in the form of type 2 diabetes, hypertension, hyperlipidemia, neuropathy and right big toe amputation and amputation of all left toes. These are all chronic issues. She also carries a diagnosis of either paroxysmal atrial fibrillation or history of DVT and takes Eliquis 5 mg b.i.d. as well. After arrival she received some IV Lasix. She feels better. She is breathing much easier, denies any chest discomfort. At the time of my evaluation she is resting comfortably without symptoms. Her troponin levels are normal. Her BNP was modestly elevated at 2960, and normal for her age being about 500 or so. Please refer to the detailed consultation from Dr. Harding from December. Her last echocardiogram was also performed in December of this year and ejection fraction at that time was about 20% or less with mild pulmonary hypertension. PAST MEDICAL HISTORY: Past medical history is remarkable for: 1. Diabetes. 2. Peripheral artery disease with amputation of left toes and right big toe. 3. History of nonischemic cardiomyopathy. 4. History of some seizure disorder as well. PHYSICAL EXAMINATION: Blood pressure is 118/70. Pulse rate is 70 per minute, regular. HEENT: Unremarkable. Fundus was not examined by me. Neck is supple. There is JVD of 1 cm. No carotid bruit. Heart exam reveals S1, S2 with some tachycardia. Lungs reveal diminished air entry. Very fine rales are noted. Abdomen is soft, nontender. Lower extremities reveal diminished pulses with evidence of amputation of the toes on the left and big toe on the right. EKG revealed atrial-sensed ventricular-paced rhythm. Central nervous system is grossly within normal limits. IMPRESSION: 1. Exacerbation of systolic heart failure in a patient with nonischemic cardiomyopathy. 2. Type 2 diabetes. 3. Hypertension. 4. Hyperlipidemia. RECOMMENDATIONS: I am recommending that we switch her to oral Lasix but increase the dose to 80 mg b.i.d., and lisinopril will be increased as well. Her Lisinopril will be increased to 5 mg daily. We can increase activity and possibly discharge her and have her see Dr. Riley in the next week or so. I discussed my thoughts in detail with the patient. Thank you very much for the consult. SONNY / PAWELN: [id number] /
[2019-03-16] MEDS ORDERED: LISINOPRIL 5 MG TAB PO SCH (21:00)
--- NOTE | 2019-03-17 07:18 | DS ---
DISCHARGE SUMMARY DATE OF ADMISSION: 03/15/2019 DATE OF DISCHARGE: 03/16/19. FINAL DIAGNOSES: 1. Acute on chronic congestive heart failure exacerbation from systolic dysfunction EF 20% from hypertensive heart disease. 2. AICD. 3. Chronic obstructive pulmonary disease in an ex-smoker. 4. Diabetes mellitus type 2, chronically on insulin. 5. Essential hypertension. 6. Chronic seizure disorder. 7. Peripheral neuropathy secondary to diabetes. 8. Right foot big toe amputation and left foot transmetatarsal amputation, chronic. HOSPITAL COURSE: This patient presented with CHF exacerbation coming on for a few days, put on IV Lasix to which she diuresed really well. Seen by Dr. Dafne Raymundo. Okay to be discharged. Doing much better at time of discharge. PHYSICAL EXAMINATION: Temperature 97.8, pulse 77, respiratory 18, blood pressure 115/75, pulse ox 96 percent on room air. Lungs improved air entry. Decreased edema. INVESTIGATIONS: BUN 21, creatinine 0.81. Troponin negative. DISCHARGE MEDICATIONS: 1. Coreg 25 mg p.o. b.i.d. 2. Aldactone 25 mg a day. 3. Eliquis 5 mg p.o. b.i.d. 4. Zestril 2.5 mg p.o. q.h.s. 5. Lipitor 80 mg q.h.s. 6. Neurontin 600 mg p.o. t.i.d. 7. Ventolin 2.5 q.6h p.r.n. 8. Prilosec 40 mg p.o. q.h.s. 9. Lasix 80 mg p.o. b.i.d., new dose. 10.NovoLog per scale and NovoLog 8 units subcu a.c. t.i.d. 11.Lantus 36 units subcu daily. FOLLOWUP: Follow up with Dr. Causey in 3 days. Follow up with Dr. Lavonne Roldan on March 29, 2019. Patient to have a BMP in about a week. Copy to Dr. Causey. SONNY / LUCHO: [id number] /
== END 2019-03-16 16:10 | disposition home or self-care (01) ==
LOC: EC 15:38 → 1SOBS 18:03
PROVIDERS: ADMIT Hospitalist; ATTEND Hospitalist
DX: I11.0 Hypertensive heart disease with heart failure (principal); I50.23 Acute on chronic systolic (congestive) heart failure; J44.9 Chronic obstructive pulmonary disease, unspecified; E11.42 Type 2 diabetes mellitus with diabetic polyneuropathy; E78.5 Hyperlipidemia, unspecified; I27.20 Pulmonary hypertension, unspecified; I42.9 Cardiomyopathy, unspecified; G40.909 Epilepsy, unspecified, not intractable, without status epilepticus; E11.51 Type 2 diabetes mellitus with diabetic peripheral angiopathy without gangrene; E66.9 Obesity, unspecified; Z68.41 Body mass index [BMI] 40.0-44.9, adult; Z79.01 Long term (current) use of anticoagulants; Z79.4 Long term (current) use of insulin; Z79.899 Other long term (current) drug therapy; I25.2 Old myocardial infarction; Z89.411 Acquired absence of right great toe; Z89.432 Acquired absence of left foot; Z87.891 Personal history of nicotine dependence; Z87.01 Personal history of pneumonia (recurrent); Z95.0 Presence of cardiac pacemaker; Z86.73 Personal history of transient ischemic attack (TIA), and cerebral infarction without residual deficits; Z88.0 Allergy status to penicillin; Z88.8 Allergy status to other drugs, medicaments and biological substances
CPT/HCPCS: 96375; 96374; 99285; 36415; 94640 ×3; 94644; 93005; 83880; 80053; 80048; 83735; 84484 ×2; 85025; 85610; 85730; 71046; G0378 ×2; J1940; J2930

== ENCOUNTER 2019-04-30 00:36 | Inpatient (IN) | payer MEDICARE, OTHER ==
[2019-04-30] MEDS ORDERED: SODIUM CHLORIDE 0.9% 500 ML 500 ML IV STA (01:38)
[2019-04-30] MEDS ORDERED: KETOROLAC 30 MG/ML 1 ML VIAL IVP STA (01:38)
[2019-04-30 02:13] LABS: Anisocytosis Slight; Basophils % (A) 0 %; Eosinophils # (A) 0.2 k/uL (0-0.7); Eosinophils % (A) 2 %; HCT 37.7 % (34.0-46.0); HGB 11.7 gm/dL (11.4-16.0); Hypochromasia Marked; Lymphocytes # (A) 1.8 k/uL (1.0-4.8); Lymphocytes % (A) 15 %; MCHC 31.1 g/dL (31.0-37.0); Mean Platelet Volume 7.1; Microcytosis Moderate; Monocytes # (A) 0.7 k/uL (0-1.0); Monocytes % (A) 5 %; Neutrophils # (A) 9.3 k/uL (1.3-7.7); Neutrophils % (A) 76 %; Platelet Count 171 k/uL (150-450); Poikilocytosis Slight; RBC 5.09 m/uL (3.80-5.40); RDW 19.8 % (11.5-15.5); WBC 12.2 k/uL (3.8-10.6)
[2019-04-30 02:26] LABS: ALT 12 U/L (9-52); AST 22 U/L (14-36); Alkaline Phosphatase 125 U/L (38-126); Anion Gap 12 mmol/L; Blood Urea Nitrogen 16 mg/dL (7-17); Calcium 8.8 mg/dL (8.4-10.2); Carbon Dioxide 26 mmol/L (22-30); Chloride 99 mmol/L (98-107); Glucose 143 mg/dL (74-99); Lipase 37 U/L (23-300); Potassium 3.8 mmol/L (3.5-5.1); Sodium 137 mmol/L (137-145); Total Bilirubin 1.4 mg/dL (0.2-1.3); Total Protein 7.1 g/dL (6.3-8.2)
--- NOTE | 2019-04-30 02:31 | ED ---
Abdominal Pain HPI - General Chief Complaint: Abdominal Pain Stated Complaint: Abd Pain Time Seen by Provider: 04/30/19 00:52 Source: patient Mode of arrival: ambulatory Limitations: physical limitation - History of Present Illness Initial Comments: 43-year-old female patient percents to the emergency department today for evaluation of left flank pain. Patient states that she has had this pain since Tuesday. Patient states onset of pain she did have vomiting. Patient states pain is a sharp stabbing pain. States that it is constant but it does get better at times. Patient denies any diarrhea or constipation. Denies any history of similar type pain. Denies any fever, chills, hematuria, dysuria. States she has had decreased urine output. She states she has had a past but denies any other abdominal surgeries. Denies any hematochezia or melena. States that she has had decreased food and fluid intake due to nausea. Patient denies any recent rash, shortness breath, chest pain, numbness, tingling, dizziness, weakness, headache, visual changes, or any other complaints. - Related Data Home Medications Medication Instructions Recorded Confirmed Carvedilol [Coreg] 25 mg PO BID 03/04/15 03/15/19 Spironolactone [Aldactone] 25 mg PO DAILY 03/04/15 03/15/19 Apixaban [Eliquis] 5 mg PO BID 09/13/18 03/15/19 Albuterol Nebulized [Ventolin 2.5 mg INHALATION RT-Q6H PRN 03/15/19 03/15/19 Nebulized] Omeprazole [PriLOSEC] 40 mg PO HS 03/15/19 03/15/19 Previous Rx's Medication Instructions Recorded Lisinopril [Zestril] 2.5 mg PO HS #30 tab 09/19/18 Atorvastatin [Lipitor] 80 mg PO HS #30 tab 01/09/19 Gabapentin [Neurontin] 600 mg PO TID #90 tablet 01/09/19 Furosemide [Lasix] 80 mg PO BID@0900,1600 #60 tab 03/16/19 INSULIN ASPART (NovoLOG) [NovoLOG 0 unit SQ ACHS vial 03/16/19 (formulary)] INSULIN ASPART (NovoLOG) [NovoLOG 8 unit SQ AC-TID PRN #0 03/16/19 (formulary)] Insulin Glargine [Lantus] 36 unit SQ DAILY #0 03/16/19 Allergies Allergy/AdvReac Type Severity Reaction Status Date / Time Penicillins Allergy Rash/Hives Verified 04/30/19 00:44 ondansetron [From Zofran] AdvReac Nausea & Verified 04/30/19 00:44 Vomiting Review of Systems ROS Statement: Those systems with pertinent positive or pertinent negative responses have been documented in the HPI. ROS Other: All systems not noted in ROS Statement are negative. Past Medical History Past Medical History: Asthma, Heart Failure, COPD, CVA/TIA, Diabetes Mellitus, Hypertension, Myocardial Infarction ([place]), Pneumonia, Seizure Disorder, Seizure Disorder Additional Past Medical History / Comment(s): uses a cane Last Myocardial Infarction Date:: 11/2013 History of Any Multi-Drug Resistant Organisms: MRSA, VRE, VRE Date of last positivie culture/infection: 2016 MDRO Source:: bilat feet Past Surgical History: Adenoidectomy, AICD, Section, Heart Catheterizat ion, Orthopedic Surgery, Pacemaker, Tonsillectomy Additional Past Surgical History / Comment(s): AICD - [employer]. has pacemaker defibrillator, right great toe amputation 04/2016, LT GREAT TOE then left foot partial amputation Past Anesthesia/Blood Transfusion Reactions: Postoperative Nausea & Vomiting (PONV) Type of Cardiac Device: Permanent Pacemaker, AICD Device Placement Date:: 2011 Past Psychological History: Bipolar Smoking Status: Former smoker Past Alcohol Use History: None Reported Past Drug Use History: None Reported - Past Family History Mother Family Medical History: Deep Vein Thrombosis (DVT) Additional Family Medical History / Comment(s): Some type of heart problems, kidney failure. Father History Unknown: Yes Family Medical History: Unable to Obtain Additional Family Medical History / Comment(s): Patient denies knowing any medical history on her father. General Exam Limitations: physical limitation General appearance: alert, in no apparent distress, other (Physical well- developed, well-nourished adult female patient in no acute distress. Vital signs upon presentation are temperature 98.0F, pulse 103, respirations 18, blood pressure 120/83, pulse ox 96% on room air.) Eye exam: Present: normal appearance, PERRL, EOMI. Absent: scleral icterus, conjunctival injection, periorbital swelling ENT exam: Present: normal exam, normal oropharynx, mucous membranes moist Respiratory exam: Present: normal lung sounds bilaterally. Absent: respiratory distress, wheezes, rales, rhonchi, stridor Cardiovascular Exam: Present: regular rate, normal rhythm, normal heart sounds. Absent: systolic murmur, diastolic murmur, rubs, gallop, clicks GI/Abdominal exam: Present: soft, tenderness (Left upper quadrant tenderness), normal bowel sounds. Absent: distended, guarding, rebound, rigid Neurological exam: Present: alert, oriented X3, CN II-XII intact Psychiatric exam: Present: normal affect, normal mood Skin exam: Present: warm, dry, intact, normal color. Absent: rash Course Vital Signs 04/30/19 04/30/19 00:42 04:29 Temperature 98 F 97.9 F Pulse Rate 103 H 84 Respiratory 18 18 Rate Blood Pressure 120/83 133/90 O2 Sat by Pulse 96 95 Oximetry Medical Decision Making - Medical Decision Making 43-year-old female patient presented to the emergency department today for evaluation of left upper quadrant and left flank pain. Physical examination did reveal left upper quadrant tenderness. Labs reviewed and did reveal mildly elevated white blood cell count. Given symptoms on her primary concern was kidney stone. CT of the abdomen and pelvis without contrast was obtained. Report was reviewed in its entirety. There does show to be possible ischemic changes to the spleen. No evidence for kidney stone. Upon reevaluation patient still reporting pain to the left upper quadrant. She was given additional doses of pain medication. We'll admit to the hospital for further evaluation by surgery. I did discuss findings and results with the patient. She verbalizes understanding and agrees with the plan. - Lab Data Result diagrams: 04/30/19 01:49 04/30/19 01:49 Lab Results 04/30/19 04/30/19 04/30/19 Range/Units 01:49 01:49 03:00 WBC 12.2 H (3.8-10.6) k/uL RBC 5.09 (3.80-5.40) m/uL Hgb 11.7 (11.4-16.0) gm/dL Hct 37.7 (34.0-46.0) % MCV 74.0 L (80.0-100.0) fL MCH 23.0 L (25.0-35.0) pg MCHC 31.1 (31.0-37.0) g/dL RDW 19.8 H (11.5-15.5) % Plt Count 171 (150-450) k/uL Neutrophils % 76 % Lymphocytes % 15 % Monocytes % 5 % Eosinophils % 2 % Basophils % 0 % Neutrophils # 9.3 H (1.3-7.7) k/uL Lymphocytes # 1.8 (1.0-4.8) k/uL Monocytes # 0.7 (0-1.0) k/uL Eosinophils # 0.2 (0-0.7) k/uL Basophils # 0.0 (0-0.2) k/uL Hypochromasia Marked Poikilocytosis Slight Anisocytosis Slight Microcytosis Moderate Sodium 137 (137-145) mmol/L Potassium 3.8 (3.5-5.1) mmol/L Chloride 99 (98-107) mmol/L Carbon Dioxide 26 (22-30) mmol/L Anion Gap 12 mmol/L BUN 16 (7-17) mg/dL Creatinine 0.91 (0.52-1.04) mg/dL Est GFR (CKD-EPI)AfAm 88 (>60 ml/min/1.73 sqM) Est GFR (CKD-EPI)NonAf 76 (>60 ml/min/1.73 sqM) Glucose 143 H (74-99) mg/dL Calcium 8.8 (8.4-10.2) mg/dL Total Bilirubin 1.4 H (0.2-1.3) mg/dL AST 22 (14-36) U/L ALT 12 (9-52) U/L Alkaline Phosphatase 125 (38-126) U/L Total Protein 7.1 (6.3-8.2) g/dL Albumin 4.0 (3.5-5.0) g/dL Amylase <30 L (30-110) U/L Lipase 37 (23-300) U/L Urine Color Yellow Urine Appearance Clear (Clear) Urine pH 5.5 (5.0-8.0) Ur Specific [place] 1.009 (1.001-1.035) Urine Protein Trace H (Negative) Urine Glucose (UA) Negative (Negative) Urine Ketones Negative (Negative) Urine Blood Small H (Negative) Urine Nitrite Negative (Negative) Urine Bilirubin Negative (Negative) Urine Urobilinogen 4.0 (<2.0) mg/dL Ur Leukocyte Esterase Negative (Negative) Urine RBC 3 (0-5) /hpf Urine WBC 3 (0-5) /hpf Ur Squamous Epith Cells 1 (0-4) /hpf Urine Bacteria Rare H (None) /hpf Hyaline Casts 6 H (0-2) /lpf - Radiology Data Radiology results: report reviewed, image reviewed CT of the abdomen and pelvis without contrast was obtained. Report was reviewed in its entirety. Impression by Dr. Liu shows subtle hypoattenuating area involving the anterior and lateral aspect of the spleen which is ill-defined but is estimated at approximately 4 center meters in AP diameter. In addition there is minimal fast running along the inferior margin of the spine extending to the superior left paracolic gutter. Primary considerations an ischemic process at this point. No evidence for loculated fluid collection. The kidneys demonstrate stable contours previous exam without hydronephrosis. No definite ureteral calcifications. Stable nonobstructing renal collecting stone involving the inferior pole of the right kidney measures 6 mm. Cardiomegaly has increased from previous examination. Disposition Clinical Impression: Abdominal pain, Splenic infarct Disposition: ADMITTED IP TO THIS [facility] Condition: Serious Decision to Admit Reason: Admit from EC Decision Date: 04/30/19 Decision Time: 03:54
[2019-04-30 02:34] LABS: Amylase <30 U/L (30-110)
[2019-04-30] MEDS ORDERED: HYDROmorphone 0.5 MG/0.5 ML SYRINGE IVP STA (03:04)
[2019-04-30 03:15] LABS: Appearance,Urine Clear (Clear); Bacteria,Urine Rare /hpf; Bilirubin,Urine Negative (Negative); Blood,Urine Small (Negative); Color,Urine Yellow; Glucose,Urine (UA) Negative (Negative); Hyaline Casts,Urine 6 /lpf (0-2); Ketones,Urine Negative (Negative); Leukocyte Esterase,Urine Negative (Negative); Nitrite,Urine Negative (Negative); PH, Urine 5.5 (5.0-8.0); Protein,Urine Trace (Negative); RBC,Urine 3 /hpf (0-5); Specific Gravity,Urine 1.009 (1.001-1.035); Squamous Epithelial Cell,Urine 1 /hpf (0-4); WBC,Urine 3 /hpf (0-5)
--- NOTE | 2019-04-30 03:39 | CT ---
EXAM: CT Abdomen and Pelvis Without Intravenous Contrast CLINICAL HISTORY: Left flank pain TECHNIQUE: Axial computed tomography images of the abdomen and pelvis without intravenous contrast. CTDI is 26.7 mGy and DLP is 1499.4 mGy-cm. This CT exam was performed using one or more of the following dose reduction techniques: automated exposure control, adjustment of the mA and/or kV according to patient size, and/or use of iterative reconstruction technique. COMPARISON: 07/30/2016 FINDINGS: Limitations: There is beam hardening artifact involving the superior abdomen secondary to overlying right upper extremity. Lung bases: Subsegmental linear changes at the lung bases are presumed atelectasis or scarring but are new from previous exam. ABDOMEN: Liver: The liver is enlarged. No focal abnormality appreciated, accounting for artifact and lack of contrast. Gallbladder and bile ducts: Unremarkable. No calcified stones. No ductal dilation. Pancreas: Unremarkable. No ductal dilation. Spleen: There is a subtle hypoattenuating area involving the anterior and lateral aspect of the spleen which is ill-defined but is estimated at approximately 4 cm in AP diameter. In addition, there is minimal fat stranding along the inferior margin of the spleen extending to the superior left paracolic gutter. Detailed evaluation is limited by lack of IV contrast and beam hardening artifact from overlying right upper extremity in this region. Adrenals: Unremarkable. No mass. Kidneys and ureters: The kidneys demonstrates stable contours from previous examination without hydronephrosis. No definite ureteral calcifications. Stable nonobstructing renal collecting stone involving the inferior pole the right kidney measures 6 mm. Stomach and bowel: Evaluation of bowel mucosa is limited without contrast. No obstruction. PELVIS: Appendix: No findings to suggest acute appendicitis. Bladder: Unremarkable. No stones. Reproductive: Unremarkable as visualized. ABDOMEN and PELVIS: Intraperitoneal space: There is trace free fluid in the pelvic cul-de- sac. No free air. Bones/joints: No acute fracture. No dislocation. Soft tissues: Unremarkable. Vasculature: Unremarkable. No abdominal aortic aneurysm. Lymph nodes: Unremarkable. No enlarged lymph nodes. Tubes, lines and devices: The cardiac chambers are enlarged and more prominent from previous exam with evidence of pacer leads. IMPRESSION: 1. There is a subtle hypoattenuating area involving the anterior and lateral aspect of the spleen which is ill-defined but is estimated at approximately 4 cm in AP diameter. In addition, there is minimal fat stranding along the inferior margin of the spleen extending to the superior left paracolic gutter. Detailed evaluation is limited by lack of IV contrast and beam hardening artifact from overlying right upper extremity in this region. Primary consideration is an ischemic process of the spleen. No evidence for loculated fluid collection. Dedicated nonemergent contrast imaging may be clinically appropriate for further evaluation. 2. The kidneys demonstrates stable contours from previous examination without hydronephrosis. No definite ureteral calcifications. Stable nonobstructing renal collecting stone involving the inferior pole the right kidney measures 6 mm. 3. Cardiomegaly has increased from previous examination.
[2019-04-30] MEDS ORDERED: NALOXONE 0.4 MG/ML 1 ML VIAL IV PRN (04:02)
[2019-04-30 05:33] VITALS: BMI 44.0
[2019-04-30 07:42] LABS: Glucose,Whole Blood 135 mg/dL (75-99)
[2019-04-30] MEDS: GABAPENTIN 300 MG CAP PO SCH ×3 (09:57→21:03)
[2019-04-30] MEDS: FUROSEMIDE 80 MG TAB PO SCH ×2 (09:57→15:35)
[2019-04-30] MEDS: HYDROmorphone 0.5 MG/0.5 ML SYRINGE IVP PRN ×4 (09:57→23:06)
--- NOTE | 2019-04-30 10:54 | P.GSCN ---
History of Present Illness Consult date: 04/30/19 History of present illness: 43-year-old female presents to the emergency department with complaints of left flank pain. She states that the pain started approximately 3 days prior to her arrival to the emergency department. She complained of some mild nausea but denied any emesis episodes. She denied any change in bowel function. She is noted to have had a recent cardiomyopathy and was on Eliquis at home. She states that she ran out of the medication and has stopped taking it on her own. The patient does state that she had some history of a blood clotting disorder, however I do not see any history of this in her records. The patient was unable to provide any additional history on this area and on workup in the emergency department, the patient was found to have an infarct of her spleen. She cannot recall any previous hematology workup. She denies any fevers, chills, chest pain or shortness of breath. Review of Systems All systems: negative Past Medical History Past Medical History: Asthma, Heart Failure, COPD, CVA/TIA, Diabetes Mellitus, Hypertension, Myocardial Infarction ([place]), Pneumonia, Seizure Disorder, Seizure Disorder Additional Past Medical History / Comment(s): uses a cane. Last seizure unknown Last Myocardial Infarction Date:: 06/2018 History of Any Multi-Drug Resistant Organisms: MRSA, VRE, VRE Year Discovered:: 2017 MDRO Source:: bilat feet Past Surgical History: Adenoidectomy, AICD, Section, Heart Catheterization, Orthopedic Surgery, Pacemaker, Tonsillectomy Additional Past Surgical History / Comment(s): AICD - [employer]. has pacemaker defibrillator, right great toe amputation 04/2016, LT GREAT TOE then left foot partial amputation Past Anesthesia/Blood Transfusion Reactions: Postoperative Nausea & Vomiting (PONV) Type of Cardiac Device: Biventricular Pacemaker, Permanent Pacemaker, AICD Device Placement Date:: 2011 Additional Psychological History / Comment(s): Single. Lives in the family home with her 2 children, as well as her son-in-law and brother. There are 3 pet cats and a dog in the home. 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 No alcohol or IV drug use. Quit smoking in Oct 2017. Has medical marijuana card and smokes marijuana on a daily basis at bedtime for pain control.. Smoking Status: Former smoker Past Alcohol Use History: None Reported Additional Past Alcohol Use History / Comment(s): Patient was a smoker of a half a pack cigarettes per day for 32 years and quit in June 2018. Past Drug Use History: None Reported Additional Drug Use History / Comment(s): medical marijuana card not currently using. - Past Family History Mother Family Medical History: Deep Vein Thrombosis (DVT) Additional Family Medical History / Comment(s): Some type of heart problems, kidney failure. Father History Unknown: Yes Family Medical History: Unable to Obtain Additional Family Medical History / Comment(s): Patient denies knowing any medical history on her father. Medications and Allergies Home Medications Medication Instructions Recorded Confirmed Type Gabapentin [Neurontin] 600 mg PO TID #90 tablet 01/09/19 04/30/19 Rx Furosemide [Lasix] 80 mg PO BID@0900,1600 #60 tab 03/16/19 04/30/19 Rx INSULIN ASPART (NovoLOG) [NovoLOG See Protocol SQ AC-TID 04/30/19 04/30/19 History (formulary)] Insulin Glargine [Lantus] 40 unit SQ HS 04/30/19 04/30/19 History Allergies Allergy/AdvReac Type Severity Reaction Status Date / Time Penicillins Allergy Rash/Hives Verified 04/30/19 07:26 ondansetron [From Zofran] AdvReac Nausea & Verified 04/30/19 07:26 Vomiting Surgical - Exam Osteopathic Statement: *. No significant issues noted on an osteopathic structural exam other than those noted in the History and Physical/Consult. Vital Signs Temp Pulse Resp BP Pulse Ox 98 F 103 H 18 120/83 96 04/30/19 00:42 04/30/19 00:42 04/30/19 00:42 04/30/19 00:42 04/30/19 00:42 - General well nourished, no distress - Eyes PERRL - ENT no hearing loss - Respiratory no difficulty with respiration - Abdomen Soft, nontender, nondistended, no rebound, guarding - Psychiatric oriented to time, oriented to person, oriented to place Results - Labs 04/30/19 01:49 04/30/19 01:49 Abnormal Lab Results - Last 24 Hours (Table) 04/30/19 04/30/19 04/30/19 Range/Units 01:49 01:49 03:00 WBC 12.2 H (3.8-10.6) k/uL MCV 74.0 L (80.0-100.0) fL MCH 23.0 L (25.0-35.0) pg RDW 19.8 H (11.5-15.5) % Neutrophils # 9.3 H (1.3-7.7) k/uL Glucose 143 H (74-99) mg/dL POC Glucose (mg/dL) (75-99) mg/dL Total Bilirubin 1.4 H (0.2-1.3) mg/dL Amylase <30 L (30-110) U/L Urine Protein Trace H (Negative) Urine Blood Small H (Negative) Urine Bacteria Rare H (None) /hpf Hyaline Casts 6 H (0-2) /lpf 04/30/19 Range/Units 07:30 WBC (3.8-10.6) k/uL MCV (80.0-100.0) fL MCH (25.0-35.0) pg RDW (11.5-15.5) % Neutrophils # (1.3-7.7) k/uL Glucose (74-99) mg/dL POC Glucose (mg/dL) 135 H (75-99) mg/dL Total Bilirubin (0.2-1.3) mg/dL Amylase (30-110) U/L Urine Protein (Negative) Urine Blood (Negative) Urine Bacteria (None) /hpf Hyaline Casts (0-2) /lpf Diabetes panel 04/30/19 Range/Units 01:49 Sodium 137 (137-145) mmol/L Potassium 3.8 (3.5-5.1) mmol/L Chloride 99 (98-107) mmol/L Carbon Dioxide 26 (22-30) mmol/L BUN 16 (7-17) mg/dL Creatinine 0.91 (0.52-1.04) mg/dL Glucose 143 H (74-99) mg/dL Calcium 8.8 (8.4-10.2) mg/dL AST 22 (14-36) U/L ALT 12 (9-52) U/L Alkaline Phosphatase 125 (38-126) U/L Total Protein 7.1 (6.3-8.2) g/dL Albumin 4.0 (3.5-5.0) g/dL Calcium panel 04/30/19 Range/Units 01:49 Calcium 8.8 (8.4-10.2) mg/dL Albumin 4.0 (3.5-5.0) g/dL Pituitary panel 04/30/19 Range/Units 01:49 Sodium 137 (137-145) mmol/L Potassium 3.8 (3.5-5.1) mmol/L Chloride 99 (98-107) mmol/L Carbon Dioxide 26 (22-30) mmol/L BUN 16 (7-17) mg/dL Creatinine 0.91 (0.52-1.04) mg/dL Glucose 143 H (74-99) mg/dL Calcium 8.8 (8.4-10.2) mg/dL Adrenal panel 04/30/19 Range/Units 01:49 Sodium 137 (137-145) mmol/L Potassium 3.8 (3.5-5.1) mmol/L Chloride 99 (98-107) mmol/L Carbon Dioxide 26 (22-30) mmol/L BUN 16 (7-17) mg/dL Creatinine 0.91 (0.52-1.04) mg/dL Glucose 143 H (74-99) mg/dL Calcium 8.8 (8.4-10.2) mg/dL Total Bilirubin 1.4 H (0.2-1.3) mg/dL AST 22 (14-36) U/L ALT 12 (9-52) U/L Alkaline Phosphatase 125 (38-126) U/L Total Protein 7.1 (6.3-8.2) g/dL Albumin 4.0 (3.5-5.0) g/dL - Imaging CT scan - abdomen: report reviewed, image reviewed CT scan - pelvis: report reviewed, image reviewed Assessment and Plan (1) Splenic infarct Narrative/Plan: 43-year-old female with splenic infarct of unknown etiology - The patient did stop her anticoagulation on her own. I did discuss the case with her primary care physician and she does have vasculopathy. We will need to restart her on anticoagulation and continue to follow the splenic infarct. We may be able to obtain better imaging of the splenic infarct with a CAT scan with dedicated splenic pictures with contrast. - Consider aspirin as well - Okay for clear liquid diet for now Thank you for the consultation, I look forward in providing in the patient's care Current Visit: Yes Status: Acute Code(s): D73.5 - INFARCTION OF SPLEEN SNOMED Code(s): 29779442
[2019-04-30 11:48] LABS: Glucose,Whole Blood 128 mg/dL (75-99)
[2019-04-30] MEDS ORDERED: INSULIN ASPART (NovoLOG) 100 UNIT/ML VIAL SQ SCH (12:30)
[2019-04-30 16:57] LABS: Glucose,Whole Blood 131 mg/dL (75-99)
[2019-04-30] MEDS: INSULIN ASPART (NovoLOG) 100 UNIT/ML VIAL SQ SCH ×2 (17:31→20:38)
[2019-04-30] MEDS ORDERED: WARFARIN 5 MG TAB PO ONE (18:00)
[2019-04-30 20:26] LABS: Glucose,Whole Blood 168 mg/dL (75-99)
[2019-04-30] MEDS: INSULIN DETEMIR (LEVEMIR) 100 UNIT/ML SYR SQ SCH (20:38)
--- NOTE | 2019-04-30 22:40 | HP ---
HISTORY AND PHYSICAL DATE OF ADMISSION: April 30, 2019. DATE OF SERVICE: April 30, 2019. PRESENTING COMPLAINT: Left abdominal pain. HISTORY OF PRESENTING COMPLAINT: This is a pleasant 43-year-old patient I have known for a long time. Chronic stable medical conditions include congestive heart failure, EF 20% from hypertensive heart disease, AICD, COPD in an ex-smoker. Diabetes mellitus type 2, chronically on insulin, essential hypertension, seizure disorder, peripheral neuropathy secondary to diabetes and multiple toe amputations. The patient on Tuesday that is 3 days ago, started off with increasing left flank pain. There was some nausea. The next day she did vomit a few times. There were no chills. She also had some referred pain to the left shoulder. There was no change in urinary symptoms. No change in bowel symptoms. No fever and chills and patient is admitted for the same. General Surgery was consulted. REVIEW OF SYSTEMS: CONSTITUTIONAL: Tired. HEENT: None. CARDIOVASCULAR: None. RESPIRATORY none. GASTROINTESTINAL: As above. GENITOURINARY: None. MUSCULOSKELETAL: Some pain in the joints. DERMATOLOGICAL, HEMATOLOGIC, LYMPHATIC: none. PSYCHIATRY none. NEUROLOGICAL: Numbness and tingling in the feet. PAST MEDICAL HISTORY: COPD, cardiomyopathy, EF less than 20%, negative cardiac cath, stroke, diabetes, hypertension, seizure disorder, varicose peripheral neuropathy, some memory and residual speech loss. PAST SURGICAL HISTORY: Adenoidectomy, AICD with [employer], , cardiac catheterization, left foot transmetatarsal amputation. SOCIAL HISTORY: Lives with her son. Smoked for many years, stopped over a year ago. Did medical marijuana. No alcohol. FAMILY HISTORY: DVT and kidney failure. HOME MEDICATIONS: 1. Lantus 40 units subcu q.h.s. 2. NovoLog per scale. 3. Neurontin 600 mg t.i.d. 4. Lasix 80 mg b.i.d. ALLERGIES: PENICILLIN AND ZOFRAN. PHYSICAL EXAMINATION: VITAL SIGNS: Vital signs on presentation: Temperature 97.8, pulse 82, respiratory rate 16, blood pressure 113/82, pulse ox 97% on room air. GENERAL APPEARANCE: Well built, BMI 42.8, lying in bed, not in distress. EYES: Pupils equal. Conjunctivae normal. HEENT: External appearance of nose and ears normal. Oral cavity normal. NECK: JVD not raised. Mass not palpable. RESPIRATORY: Effort normal. LUNGS slightly decreased breath sounds. CARDIOVASCULAR: First and second sounds normal. No edema. ABDOMEN: Some left abdomen tenderness. No guarding or rigidity. No renal angle tenderness. Liver and spleen not palpable. LYMPHATICS: No lymph nodes palpable in the neck and axilla. PSYCHIATRY: Alert and oriented x3. Mood and affect normal. NEUROLOGICAL: Pupils equal. Cranial nerves grossly intact. Distal sensation decreased. INVESTIGATIONS: White count 12.2, hemoglobin 11.7. Potassium 3.8, BUN and creatinine is normal. Accu- Cheks are noted. UA noted. CT scan of the abdomen and pelvis shows liver to be enlarged. Gallbladder is unremarkable. Spleen subtle hypoattenuating area involving the anterior and lateral aspect of the spleen which is ill-defined. ASSESSMENT: 1. This patient presented with acute pain in the left flank area and 2 areas of hypoattenuation in the spleen could be splenic infarct. The patient had been taking Eliquis, but because of cost issues, stop taking the same. Need to consider embolic phenomena here. Otherwise, patient has no evidence of infection and on clinical grounds is not a surgical abdomen. 2. Chronic congestive heart failure from systolic dysfunction, EF 20% from dilated cardiomyopathy. 3. AICD. 4. Chronic obstructive pulmonary disease in an ex smoker. 5. Diabetes mellitus type 2, chronically on insulin. 6. Essential hypertension. 7. Chronic seizure disorder. 8. Peripheral neuropathy from diabetes. 9. 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 PLAN: Will consult Cardiology to get a possible CONY to make sure there is no cardiac thrombus that is developed. The patient was started on Coumadin tonight. The patient will be made n.p.o. after midnight. Care was earlier discussed with Dr. Harrison from surgery. Copy to Dr. Causey. MMODL / IJN: [id number] /
[2019-05-01] MEDS: HYDROmorphone 0.5 MG/0.5 ML SYRINGE IVP PRN ×2 (04:12→09:58)
[2019-05-01 06:57] LABS: Glucose,Whole Blood 114 mg/dL (75-99)
[2019-05-01] MEDS: FUROSEMIDE 80 MG TAB PO SCH ×2 (07:47→15:52)
[2019-05-01] MEDS: GABAPENTIN 300 MG CAP PO SCH ×2 (07:47→15:52)
[2019-05-01] MEDS: INSULIN ASPART (NovoLOG) 100 UNIT/ML VIAL SQ SCH ×4 (07:47→20:46)
--- NOTE | 2019-05-01 08:05 | CONS ---
CONSULTATION DATE OF SERVICE: 04/30/2019 REASON FOR CONSULTATION: Left upper quadrant abdominal pain. HISTORY OF PRESENT ILLNESS: The patient is a 43-year-old pleasant white female with history of congestive heart failure, coronary artery disease, AICD implantation, diabetes mellitus, was admitted to the hospital because of left-sided left upper quadrant abdominal pain that started about 3 days ago. The pain continued to progressively get worse. Had some nausea but no emesis. However, this morning he had 2 episodes of emesis. Hence came into the emergency room and a CT of the abdomen and pelvis done that showed a splenic infarct and hence Surgery and GI was consulted. The patient is feeling better this morning. She still has intermittent crampy like pain in the left upper quadrant area. She never had . Nausea has resolved. No further episodes of emesis. No fever, chills, or night sweats. PAST MEDICAL HISTORY: Her past medical history is significant for coronary artery disease, congestive heart failure, A fib, history of CVA in the past, diabetes mellitus, hypertension, peripheral neuropathy. PAST SURGICAL HISTORY: Adenoidectomy, AICD implantation, , left foot amputation. MEDICATIONS: Medications at home include Lantus, NovoLog, Neurontin, Lasix. FAMILY HISTORY: Mother had DVT. Father had kidney failure. SOCIAL HISTORY: Chronic smoker. No alcohol use. ALLERGIES: Allergies to PENICILLIN and ZOFRAN. REVIEW OF SYSTEMS: CARDIOPULMONARY: She denies any chest pain or shortness of breath. GENITOURINARY: hematuria. MUSCULOSKELETAL: Unremarkable. Skin: Unremarkable. ENDOCRINE: Unremarkable. PSYCHIATRIC: Unremarkable. NEURO: . CONSTITUTIONAL: weight loss. No fever, chills or night sweats. PHYSICAL EXAMINATION: On physical exam, she appears comfortable in no apparent distress. Vital signs are stable. Blood pressure is 131/82, pulse rate 88, temperature 98.2. HEENT examination unremarkable. Conjunctivae are pink. Sclerae no lesions. NECK: No JVD or lymph node enlargement. Chest was clear to auscultation. HEART: Regular rate and rhythm. ABDOMEN: Soft. quadrant area as well as in the epigastric area. Bowel sounds are positive. No organomegaly. Obese abdomen. EXTREMITIES: No pedal edema. SKIN: No rashes. NEURO: Alert and oriented x3. LABS: Labs done at the time of admission the hospital: WBC 12.2, hemoglobin 11.7, platelets cristy. Basic metabolic panel is within normal limits. CT of the abdomen showed mild hepatomegaly and spleen had hypoattenuating area in the anterior and lateral aspect suspicious for splenic infarct. IMPRESSION: 1. This is a patient who presents with left upper quadrant abdominal pain for the last [address] of the abdomen showed possibility of a splenic infarct which appears to be the source of her symptoms. Surgery has been consulted. Recommended anticoagulation. 2. History of congestive heart failure with ejection fraction of 20%, status post AICD implantation. She was on Eliquis in the past, which she stopped about 6 months ago as recommended by her manager human resources. 3. Chronic obstructive pulmonary disease. 4. Diabetes mellitus. 5. Hypertension. RECOMMENDATIONS: The patient is to have workup for hypercoagulable state resulting in splenic infarct. Agree with cardiology consultation. Continue with symptomatic medications for left upper quadrant abdominal pain as well as PPIs. No need for any endoscopic intervention at this time. We will follow the patient closely during hospital stay. Thank you for this consultation. MMODL / IJN: [id number] /
[2019-05-01 08:07] LABS: Anisocytosis Moderate; Basophils % (A) 0 %; Eosinophils # (A) 0.2 k/uL (0-0.7); Eosinophils % (A) 2 %; HCT 38.3 % (34.0-46.0); HGB 11.3 gm/dL (11.4-16.0); Hypochromasia Moderate; Lymphocytes # (A) 1.1 k/uL (1.0-4.8); Lymphocytes % (A) 11 %; MCH 22.4 pg (25.0-35.0); MCHC 29.6 g/dL (31.0-37.0); MCV 75.6 fL (80.0-100.0); Mean Platelet Volume 7.6; Microcytosis Moderate; Monocytes # (A) 0.8 k/uL (0-1.0); Monocytes % (A) 8 %; Neutrophils # (A) 7.7 k/uL (1.3-7.7); Neutrophils % (A) 77 %; Platelet Count 193 k/uL (150-450); Poikilocytosis Slight; RBC 5.06 m/uL (3.80-5.40); RDW 20.2 % (11.5-15.5)
[2019-05-01 08:12] LABS: INR 1.2 (<1.2); Prothrombin Time 12.1 sec (9.0-12.0)
[2019-05-01 08:20] LABS: ALT 16 U/L (9-52); AST 18 U/L (14-36); Albumin 3.6 g/dL (3.5-5.0); Alkaline Phosphatase 109 U/L (38-126); Anion Gap 8 mmol/L; Blood Urea Nitrogen 16 mg/dL (7-17); Calcium 8.5 mg/dL (8.4-10.2); Carbon Dioxide 30 mmol/L (22-30); Chloride 100 mmol/L (98-107); Glucose 101 mg/dL (74-99); Potassium 3.5 mmol/L (3.5-5.1); Sodium 138 mmol/L (137-145); Total Bilirubin 1.1 mg/dL (0.2-1.3); Total Protein 6.7 g/dL (6.3-8.2)
--- NOTE | 2019-05-01 10:36 | P.CRDCN ---
History of Present Illness History of present illness: This is a pleasatn 43-year-old female past medical history significant for idiopathic non-ischemic cardiomyopathy s/p BiV ICD 2012, hypertension, diabetes mellitus, chronic systolic heart failure, dyslipidemia and morbid obestiy. She also has a history of blood clots in the past. Echo from 06/2018 at [facility] revealed a mobile LV thronbus 1.74x1.42 cm. She was s upposed to be taking Eliquis. However, unfortunately she has not been taking any of her medications other than lasix, neurontin and insulin due to no money. She presented to the hospital with symptoms of left flank pain with vomiting and found to have subtle hypoattenuating area involving the anterior and lateral aspect of the spleen suggestive of ischemic process. We have been asked to see her to perform a CONY for possibility of LV thrombus. She is seen and examined sitting up in bed resting comfortably in no acute distress. She denies chest pain, shortness of breath, dizziness or palpitations. She continues to have intermittent pain in the left flank region with radiation to the epigastric area and left upper back. She has been seen by surgical service and is recommended for CT scan with dedicated splenic pictures. Laboratory data reviewed, WBC on admission 12.2 down to 10 this morning, hemoglobin 11.3, platelets 193, INR 1.2, sodium 138, potassium 3.5, creatinine 0.86 with a GFR of 83. Currently only taking lasix 80 mg BID. At the time of my exam: CONSTITUTIONAL: Denies fever. Denies chills. EYES: Denies blurred vision. Denies vision changes. Denies eye pain. EARS, NOSE, MOUTH & THROAT: Denies headache. Denies sore throat. Denies ear pain. CARDIOVASCULAR: Denies chest pain. Denies shortness of breath. Denies orthopnea. Denies PND. Denies palpitations. RESPIRATORY: Denies cough. GASTROINTESTINAL: Complains of left flank/abdominal pain. Denies diarrhea. Denies constipation. Denies nausea. Denies vomiting. MUSCULOSKELETAL: Denies myalgias. INTEGUMENTARY: Denies pruitis. Denies rash. NEUROLOGIC: Denies numbness. Denies tingling. Denies weakness. PSYCHIATRIC: Denies anxiety. Denies depression. ENDOCRINE: Denies fatigue. Denies weight change. Denies polydipsia. Denies polyurina. GENITOURINARY: Denies burning, hematuria or urgency with micturation. HEMATOLOGIC: Denies history of anemia. Denies bleeding. Blood pressure 118/46 heart rate 86 afebrile maintaining oxygen saturation on room air GENERAL: This is a 43-year-old female in no apparent distress at the time of my examination. Morbidly obese. HEENT: Head is atraumatic, normocephalic. Pupils are equal, round. Sclerae anicteric. Conjunctivae are clear. Mucous membranes of the mouth are moist. Neck is supple. There is no jugular venous distention. No carotid bruit is heard. LUNGS: Clear to auscultation no wheezes, rales or rhonchi. No chest wall tenderness is noted on palpation or with deep breathing. HEART: Regular rate and rhythm without murmurs, rubs or gallops. S1 and S2 heard. ABDOMEN: Soft, mildly tender left upper quadrant. Bowel sounds are heard. No organomegaly noted. EXTREMITIES: Trace bilateral lower extremity non-pitting edema and no calf tenderness noted. VASCULAR: Radial and dorsalis pedis pulses palpated, no evidence of clubbing. NEUROLOGIC: Patient is awake, alert and oriented x3. ASSESSMENT Splenic infarct causing left flank pain History of severe non-ischemic idiopathic cardiomyopathy s/p ICD placement Chronic systolic heart failure, currently euvolemic Hypertension Diabetes mellitus Morbid obesity, BMI 43 PLAN Resume lisinopril and coreg as previously ordered. Consult case management to check the cost of Eliquis and also assist her with obtaining her medications at a reasonable cost for her. CONY will be performed tomorrow by her primary home health assistant Dr. Roldan. The procedure has been explained to the patient in great detail and she is agreeable to move forward. Thank you kindly for this consultation. Nurse Practitioner note has been reviewed, I agree with a documented findings and plan of care. Patient was seen and examined. Past Medical History Past Medical History: Asthma, Heart Failure, COPD, CVA/TIA, Diabetes Mellitus, Hypertension, Myocardial Infarction ([place]), Pneumonia, Seizure Disorder, Seizure Disorder Additional Past Medical History / Comment(s): uses a cane. Last seizure unknown Last Myocardial Infarction Date:: 06/2018 History of Any Multi-Drug Resistant Organisms: MRSA, VRE, VRE Date of last positivie culture/infection: 2017 MDRO Source:: bilat feet Past Surgical History: Adenoidectomy, AICD, Section, Heart Catheterizat ion, Orthopedic Surgery, Pacemaker, Tonsillectomy Additional Past Surgical History / Comment(s): AICD - [employer]. has pacemaker defibrillator, right great toe amputation 04/2016, LT GREAT TOE then left foot partial amputation Past Anesthesia/Blood Transfusion Reactions: Postoperative Nausea & Vomiting (PONV) Type of Cardiac Device: Biventricular Pacemaker, Permanent Pacemaker, AICD Device Placement Date:: 2011 Additional Psychological History / Comment(s): Single. Lives in the family home with her 2 children, as well as her son-in-law and brother. There are 3 pet cat s and a dog in the home. 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 No alcohol or IV drug use. Quit smoking in Oct 2017. Has medical marijuana card and smokes marijuana on a daily basis at bedtime for pain control.. Smoking Status: Former smoker Past Alcohol Use History: None Reported Additional Past Alcohol Use History / Comment(s): Patient was a smoker of a half a pack cigarettes per day for 32 years and quit in June 2018. Past Drug Use History: None Reported Additional Drug Use History / Comment(s): medical marijuana card not currently using. - Past Family History Mother Family Medical History: Deep Vein Thrombosis (DVT) Additional Family Medical History / Comment(s): Some type of heart problems, kidney failure. Father History Unknown: Yes Family Medical History: Unable to Obtain Additional Family Medical History / Comment(s): Patient denies knowing any medical history on her father. Medications and Allergies Home Medications Medication Instructions Recorded Confirmed Type RX: Gabapentin [Neurontin] 600 mg PO TID #90 tablet 01/09/19 04/30/19 Rx RX: Furosemide [Lasix] 80 mg PO BID@0900,1600 #60 tab 03/16/19 04/30/19 Rx RX: INSULIN ASPART (NovoLOG) See Protocol SQ AC-TID 04/30/19 04/30/19 History [NovoLOG (formulary)] RX: Insulin Glargine [Lantus] 40 unit SQ HS 04/30/19 04/30/19 History Allergies Allergy/AdvReac Type Severity Reaction Status Date / Time Penicillins Allergy Rash/Hives Verified 04/30/19 07:26 ondansetron [From Zofran] AdvReac Nausea & Verified 04/30/19 07:26 Vomiting Physical Exam Vitals: Vital Signs Temp Pulse Resp BP Pulse Ox 05/01/19 07:00 98.0 F 86 16 118/46 96 05/01/19 00:56 98.3 F 90 18 118/75 92 L 04/30/19 19:24 98.2 F 87 18 99/67 95 04/30/19 15:00 97.8 F 88 16 131/82 97 Intake and Output 04/30/19 05/01/19 05/01/19 22:59 06:59 14:59 Intake Total 108 Balance 108 Intake: Oral 108 Other: Voiding Method Toilet Toilet # Voids 3 1 Weight 126.4 kg Results 05/01/19 07:15 05/01/19 07:15 Cardiac Enzymes 05/01/19 Range/Units 07:15 AST 18 (14-36) U/L Coagulation 05/01/19 Range/Units 07:15 PT 12.1 H (9.0-12.0) sec CBC 05/01/19 Range/Units 07:15 WBC 10.0 (3.8-10.6) k/uL RBC 5.06 (3.80-5.40) m/uL Hgb 11.3 L (11.4-16.0) gm/dL Hct 38.3 (34.0-46.0) % Plt Count 193 (150-450) k/uL Comprehensive Metabolic Panel 05/01/19 Range/Units 07:15 Sodium 138 (137-145) mmol/L Potassium 3.5 (3.5-5.1) mmol/L Chloride 100 (98-107) mmol/L Carbon Dioxide 30 (22-30) mmol/L BUN 16 (7-17) mg/dL Creatinine 0.86 (0.52-1.04) mg/dL Glucose 101 H (74-99) mg/dL Calcium 8.5 (8.4-10.2) mg/dL AST 18 (14-36) U/L ALT 16 (9-52) U/L Alkaline Phosphatase 109 (38-126) U/L Total Protein 6.7 (6.3-8.2) g/dL Albumin 3.6 (3.5-5.0) g/dL Current Medications Generic Name Dose Route Start Last Admin Trade Name Freq PRN Reason Stop Dose Admin Furosemide 80 mg 04/30/19 09:00 05/01/19 07:47 Lasix PO Not Given BID@0900,1600 [facility] Gabapentin 600 mg 04/30/19 09:00 05/01/19 07:47 Neurontin PO Not Given TID [facility] Hydromorphone HCl 0.5 mg 04/30/19 04:02 05/01/19 04:12 Dilaudid IVP 0.5 mg Q3HR PRN Administration Moderate Pain Insulin Aspart 0 unit 04/30/19 17:30 05/01/19 07:47 Novolog SQ Not Given ACHS [facility] Protocol Insulin Detemir 40 unit 04/30/19 21:00 04/30/19 20:38 Levemir SQ 40 unit HS [facility] Administration Miscellaneous Information 0 each 04/30/19 14:13 Coumadin Per Pharmacy MISCELLANE DIRECTED PRN Per Protocol Naloxone HCl 0.2 mg 04/30/19 04:02 Narcan IV Q2M PRN Opioid Reversal Intake and Output 04/30/19 05/01/19 05/01/19 22:59 06:59 14:59 Intake Total 108 Balance 108 Intake: Oral 108 Other: Voiding Method Toilet Toilet # Voids 3 1 Weight 126.4 kg 05/01/19 07:15 05/01/19 07:15
[2019-05-01] MEDS: LISINOPRIL 5 MG TAB PO SCH (11:29)
[2019-05-01] MEDS: HEPARIN SOD,PORK IN 0.45% NACL 25,000 UNIT in 0.45% NACL 1 250ML.BAG IV SCH (11:56)
[2019-05-01 11:57] LABS: Glucose,Whole Blood 104 mg/dL (75-99)
--- NOTE | 2019-05-01 12:09 | P.PN ---
Subjective Progress Note Date: 05/01/19 Principal diagnosis: Splenic infarct abdominal pain Left upper quadrant abdominal pain still present but slightly improved. Afebrile. CONY scheduled tomorrow. General surgery has evaluated the patient. White count 10. Hemoglobin 11.3. INR 1.2. Objective - Vital Signs Vital signs: Vital Signs Temp 98.0 F 05/01/19 07:00 Pulse 86 05/01/19 07:00 Resp 16 05/01/19 07:00 BP 118/46 05/01/19 07:00 Pulse Ox 96 05/01/19 07:00 Intake & Output 04/30/19 05/01/19 05/01/19 18:59 06:59 18:59 Intake Total 348 Balance 348 Weight 126.4 kg Intake: Oral 348 Other: Voiding Method Toilet Toilet Toilet # Voids 3 1 - Exam General appearance: The patient is alert, oriented, in no acute distress. HET: Head is normocephalic and atraumatic. Pupils are equal and reactive. Oropharynx is clear without lesions. Neck: Supple without lymphadenopathy. Trachea midline. Heart: S1 S2. Regular rate and rhythm. Lungs: No crackles or wheezes are heard. Abdomen: Soft, left upper quadrant tenderness, nondistended with bowel sounds. No peritoneal signs. No palpable organomegaly or masses. Extremities: Normal skin color and turgor. No cyanosis, rash, ulceration, clubbing, or edema. Radial and pedal pulses are 2/4 bilaterally. Neurological: No focal deficits. Strength and sensation are grossly intact. - Labs CBC & Chem 7: 05/01/19 07:15 05/01/19 07:15 Labs: Abnormal Lab Results - Last 24 Hours (Table) 04/30/19 04/30/19 05/01/19 Range/Units 16:42 20:15 06:43 Hgb (11.4-16.0) gm/dL MCV (80.0-100.0) fL MCH (25.0-35.0) pg MCHC (31.0-37.0) g/dL RDW (11.5-15.5) % PT (9.0-12.0) sec INR (<1.2) Glucose (74-99) mg/dL POC Glucose (mg/dL) 131 H 168 H 114 H (75-99) mg/dL 05/01/19 05/01/19 05/01/19 Range/Units 07:15 07:15 07:15 Hgb 11.3 L (11.4-16.0) gm/dL MCV 75.6 L (80.0-100.0) fL MCH 22.4 L (25.0-35.0) pg MCHC 29.6 L (31.0-37.0) g/dL RDW 20.2 H (11.5-15.5) % PT 12.1 H (9.0-12.0) sec INR 1.2 H (<1.2) Glucose 101 H (74-99) mg/dL POC Glucose (mg/dL) (75-99) mg/dL 05/01/19 Range/Units 11:45 Hgb (11.4-16.0) gm/dL MCV (80.0-100.0) fL MCH (25.0-35.0) pg MCHC (31.0-37.0) g/dL RDW (11.5-15.5) % PT (9.0-12.0) sec INR (<1.2) Glucose (74-99) mg/dL POC Glucose (mg/dL) 104 H (75-99) mg/dL Assessment and Plan (1) Abdominal pain Narrative/Plan: Acute left upper quadrant abdominal pain CT abdomen showed possibility of a splenic infarct which appears to be source of her symptoms. Surgery has been consulted the recommendations and evaluation are appreciated. History of underlying congestive heart failure status post AICD CONY scheduled tomorrow. Current Visit: Yes Status: Acute Code(s): R10.9 - UNSPECIFIED ABDOMINAL PAIN SNOMED Code(s): 45616257 Plan: 1. Continue assessment of supportive measures. Case was discussed with attending no further workup from a GI standpoint. We'll follow on as needed basis. Cardiology and general surgery following. Assessment and plan a care discussed with Dr. Riley
--- NOTE | 2019-05-01 13:22 | P.PN ---
Subjective Progress Note Date: 05/01/19 Patient seen and examined at bedside. She states that she still is having some left upper quadrant pain but it is improving. Denies any nausea or vomiting. Tolerating clear liquid diet. She states she does not have an appetite. She denies any lightheadedness. Objective - Vital Signs Vital signs: Vital Signs Temp 98.0 F 05/01/19 07:00 Pulse 86 05/01/19 07:00 Resp 16 05/01/19 07:00 BP 118/46 05/01/19 07:00 Pulse Ox 96 05/01/19 07:00 Intake & Output 04/30/19 05/01/19 05/01/19 18:59 06:59 18:59 Intake Total 348 310 Balance 348 310 Weight 126.4 kg Intake: Oral 348 310 Other: Voiding Method Toilet Toilet Toilet # Voids 3 1 - Constitutional General appearance: Present: cooperative, no acute distress - EENT Eyes: Present: PERRLA - Respiratory Details: no difficulty with respiration - Gastrointestinal Gastrointestinal Comment(s): soft, mild tenderness to palpation in the left upper quadrant, nondistended, no rebound, no guarding - Psychiatric Psychiatric: Present: A&O x's 3 - Labs CBC & Chem 7: 05/01/19 07:15 05/01/19 07:15 Labs: Abnormal Lab Results - Last 24 Hours (Table) 04/30/19 04/30/19 05/01/19 Range/Units 16:42 20:15 06:43 Hgb (11.4-16.0) gm/dL MCV (80.0-100.0) fL MCH (25.0-35.0) pg MCHC (31.0-37.0) g/dL RDW (11.5-15.5) % PT (9.0-12.0) sec INR (<1.2) Glucose (74-99) mg/dL POC Glucose (mg/dL) 131 H 168 H 114 H (75-99) mg/dL 05/01/19 05/01/19 05/01/19 Range/Units 07:15 07:15 07:15 Hgb 11.3 L (11.4-16.0) gm/dL MCV 75.6 L (80.0-100.0) fL MCH 22.4 L (25.0-35.0) pg MCHC 29.6 L (31.0-37.0) g/dL RDW 20.2 H (11.5-15.5) % PT 12.1 H (9.0-12.0) sec INR 1.2 H (<1.2) Glucose 101 H (74-99) mg/dL POC Glucose (mg/dL) (75-99) mg/dL 05/01/19 Range/Units 11:45 Hgb (11.4-16.0) gm/dL MCV (80.0-100.0) fL MCH (25.0-35.0) pg MCHC (31.0-37.0) g/dL RDW (11.5-15.5) % PT (9.0-12.0) sec INR (<1.2) Glucose (74-99) mg/dL POC Glucose (mg/dL) 104 H (75-99) mg/dL Assessment and Plan (1) Splenic infarct Narrative/Plan: 43-year-old female with splenic infarct of unknown etiology - Hemoglobin is stable today, there does not appear to be an active bleed from the spleen - The patient is also having a cardiology workup. I do agree with continuing the anticoagulation at this time. - If further investigation is necessary, We may be able to obtain better imaging of the splenic infarct with a CAT scan with dedicated splenic pictures with cont rast. - Consider aspirin as well - Okay to advance diet from surgical perspective pending any procedures by the other services involved Current Visit: Yes Status: Acute Code(s): D73.5 - INFARCTION OF SPLEEN SNOMED Code(s): 15170123
[2019-05-01 16:53] LABS: Glucose,Whole Blood 99 mg/dL (75-99)
[2019-05-01] MEDS: CARVEDILOL 12.5 MG TAB PO SCH (16:56)
[2019-05-01] MEDS ORDERED: WARFARIN 5 MG TAB PO ONE (18:00)
[2019-05-01] MEDS: HEPARIN SODIUM,PORCINE 5,000 UNIT/ML 1 ML VIAL IV PRN (18:32)
[2019-05-01 20:46] LABS: Glucose,Whole Blood 117 mg/dL (75-99)
[2019-05-01] MEDS: INSULIN DETEMIR (LEVEMIR) 100 UNIT/ML SYR SQ SCH (21:15)
[2019-05-01] MEDS ORDERED: SODIUM CHLORIDE 0.9% 500 ML 250 ML IV ONE (21:25)
--- NOTE | 2019-05-01 22:38 | CT ---
EXAM: CT Abdomen and Pelvis Without Intravenous Contrast CLINICAL HISTORY: ITS.REASON CT Reason: CHANGE IN VITALS, INCREASED PAIN, nausea, vomiting TECHNIQUE: Axial computed tomography images of the abdomen and pelvis without intravenous contrast. CTDI is 24.47 mGy and DLP is 1465.4 mGy-cm. This CT exam was performed using one or more of the following dose reduction techniques: automated exposure control, adjustment of the mA and/or kV according to patient size, and/or use of iterative reconstruction technique. COMPARISON: CT abdomen/pelvis on 04/30/2019 FINDINGS: Evaluation of solid organs somewhat limited without IV contrast. Liver: No focal lesion. Hepatomegaly. Spleen: Mild splenomegaly. Nonspecific hypoattenuation again noted in the anterior aspect of the spleen. Nonspecific perinephric fat stranding and trace fluid. Stable lobulation of the spleen. Gallbladder: No stones or biliary dilatation. Pancreas: No acute inflammation. No mass. Adrenal glands: No mass. Kidneys: Stable small nonobstructing right renal stone. No hydronephrosis or ureteral stone. Nonspecific bilateral perinephric fat stranding. Scarring in the right kidney. Bowel: Diverticulosis without evidence of diverticulitis. Normal appendix. No bowel obstruction or inflammation. Urinary bladder: Mild prominence of the bladder wall may be secondary to underdistention. Reproductive organs: Stable 3.8 cm hypodense lesion in the right ovary which could represent an ovarian cyst. Probable fibroid uterus. Muscles: No mass. Subcutaneous tissues: Small fat-containing umbilical hernia. Peritoneal space: Slightly increased small amount of free fluid in the pelvis. Lymph nodes: No lymphadenopathy. Vessels: No aneurysm. Bones: Mild degenerative changes of the spine. No acute fracture or bony lesion. Lung bases: Again seen is cardiomegaly with pacer wires partially visualized. Bibasilar atelectasis. IMPRESSION: 1. Mild splenomegaly. Nonspecific hypoattenuation again noted in the anterior aspect of the spleen. Nonspecific perinephric fat stranding and trace fluid. Findings are again concerning for splenic infarct versus infectious/inflammatory process. Further evaluation could be performed with contrast-enhanced CT. 2. Stable small nonobstructing right renal stone. No hydronephrosis or ureteral stone. 3. Slightly increased small amount of free fluid in the pelvis. 4. Stable 3.8 cm hypodense lesion in the right ovary which could represent an ovarian cyst. Probable fibroid uterus. Further evaluation could be performed with ultrasound if clinically indicated.
[2019-05-01 23:47] LABS: D-Dimer 3.52 mg/L FEU (<0.60); Partial Thromboplastin Time 37.3 sec (22.0-30.0)
--- NOTE | 2019-05-01 23:56 | PN ---
PROGRESS NOTE DATE OF SERVICE: 05/01/2019 PRESENTING COMPLAINT: Abdominal pain. INTERVAL HISTORY: This patient presented with abdominal pain. Patient stopped taking Eliquis because of financial reasons. I started the patient on IV heparin, CONY is pending to rule out a cardiac source of embolism. Later in the evening, the patient's blood pressure did drop a bit. She was not cold or clammy, just tired. Oral intake not has been much. There is no increase in any abdominal pain. REVIEW OF SYSTEMS: Done for constitutional, cardiovascular, GI, pulmonary and relevant findings as above. CURRENT MEDICATIONS: Reviewed that include IV heparin. PHYSICAL EXAMINATION: VITAL SIGNS: Temperature 98.1, pulse 70, respirations 17, blood pressure 70/52. Pulse ox 95% on room air. GENERAL APPEARANCE: Lying in bed, tired-appearing. EYES: Pupils equal. Conjunctivae normal. NECK: JVD not raised. Mass not palpable. RESPIRATORY: Effort normal. LUNGS: Decreased breath sounds. CARDIOVASCULAR: 1st and 2nd sounds normal. No edema. ABDOMEN: Left abdominal tenderness. No guarding or rigidity. PSYCHIATRY: Alert and oriented times three. Mood and affect normal. INVESTIGATIONS: White count 10, hemoglobin 11.3, potassium 3.5, BUN and creatinine is normal. CT scan of the abdomen and pelvis did not report any bleed. ASSESSMENT: 1. Left acute splenic infarct could be embolic from patient stopped taking Eliquis. 2. Chronic congestive heart failure from systolic dysfunction, EF 20% from dilated cardiomyopathy. 3. AICD. 4. Chronic obstructive pulmonary disease in an ex-smoker. 5. Diabetes mellitus type 2, chronically on insulin. 6. Essential hypertension. 7. Chronic seizure disorder. 8. Peripheral neuropathy from diabetes. 9. 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 10.Hypotension. 11.IV heparin monitoring. PLAN: The patient will be given a bolus of 250. CT scan of done of the abdomen did not show any evidence of bleed. The patient remains on IV heparin for a CONY tomorrow morning. Coumadin has been held. Care was discussed with the patient. MMODL / IJN: [id number] /
[2019-05-02] MEDS: GABAPENTIN 300 MG CAP PO SCH ×4 (00:45→21:14)
[2019-05-02] MEDS: HEPARIN SODIUM,PORCINE 5,000 UNIT/ML 1 ML VIAL IV PRN (00:47)
[2019-05-02] MEDS: HEPARIN SOD,PORK IN 0.45% NACL 25,000 UNIT in 0.45% NACL 1 250ML.BAG IV SCH (06:29)
[2019-05-02 07:10] LABS: Glucose,Whole Blood 93 mg/dL (75-99)
[2019-05-02] MEDS: INSULIN ASPART (NovoLOG) 100 UNIT/ML VIAL SQ SCH ×4 (07:14→20:02)
[2019-05-02 07:37] LABS: Anisocytosis Slight; Basophils # (A) 0.1 k/uL (0-0.2); Basophils % (A) 1 %; Eosinophils # (A) 0.3 k/uL (0-0.7); Eosinophils % (A) 3 %; HCT 39.2 % (34.0-46.0); HGB 11.7 gm/dL (11.4-16.0); Hypochromasia Marked; Lymphocytes # (A) 1.8 k/uL (1.0-4.8); Lymphocytes % (A) 22 %; MCH 22.8 pg (25.0-35.0); MCHC 29.8 g/dL (31.0-37.0); MCV 76.6 fL (80.0-100.0); Mean Platelet Volume 8.1; Microcytosis Moderate; Monocytes # (A) 0.6 k/uL (0-1.0); Monocytes % (A) 7 %; Neutrophils # (A) 5.3 k/uL (1.3-7.7); Neutrophils % (A) 65 %; Platelet Count 215 k/uL (150-450); Poikilocytosis Slight; RBC 5.12 m/uL (3.80-5.40); RDW 19.4 % (11.5-15.5); WBC 8.1 k/uL (3.8-10.6)
[2019-05-02 08:14] LABS: INR 1.1 (<1.2); Partial Thromboplastin Time 40.1 sec (22.0-30.0); Prothrombin Time 11.6 sec (9.0-12.0)
[2019-05-02] MEDS: CARVEDILOL 12.5 MG TAB PO SCH (08:18)
[2019-05-02] MEDS: LISINOPRIL 5 MG TAB PO SCH (08:18)
[2019-05-02] MEDS: FUROSEMIDE 80 MG TAB PO SCH ×2 (08:19→15:59)
--- NOTE | 2019-05-02 08:57 | P.PN ---
Subjective Progress Note Date: 05/02/19 Patient seen and examined at bedside. Did have some increased abdominal pain yesterday. CT without contrast showed hypoattenuation but no obvious bleeding. Currently, the patient states that she still has pain but is resting comfortably. Objective - Vital Signs Vital signs: Vital Signs Temp 98.2 F 05/02/19 07:00 Pulse 74 05/02/19 07:00 Resp 19 05/02/19 07:00 BP 108/82 05/02/19 07:00 Pulse Ox 93 L 05/02/19 07:00 Intake & Output 05/01/19 05/02/19 05/02/19 18:59 06:59 18:59 Intake Total 374.987 435.013 Balance 374.987 435.013 Intake: Intake, IV Titration 64.987 435.013 Amount Heparin Sod,Pork in 0.45% 64.987 185.013 NaCl 25,000 unit In 0.45 % NaCl 1 250ml.bag @ 7.91 UNITS/KG/HR 9.998 mls/hr IV .Q24H JAN Rx#: [id number] Sodium Chloride 0.9% 500 250 ml 250 ml @ 999 mls/hr IV .Q16M ONE Rx#:[id number] Oral 310 Other: Voiding Method Toilet Toilet # Voids 2 2 - Constitutional General appearance: Present: cooperative, no acute distress - EENT Eyes: Present: PERRLA - Respiratory Details: no difficulty with respiration - Gastrointestinal Gastrointestinal Comment(s): soft, mild tenderness in left upper quadrant, nondistended, no rebound, no guarding - Psychiatric Psychiatric: Present: A&O x's 3 - Labs CBC & Chem 7: 05/02/19 06:52 05/01/19 07:15 Labs: Abnormal Lab Results - Last 24 Hours (Table) 05/01/19 05/01/19 05/01/19 Range/Units 11:45 20:34 23:19 MCV (80.0-100.0) fL MCH (25.0-35.0) pg MCHC (31.0-37.0) g/dL RDW (11.5-15.5) % APTT 37.3 H (22.0-30.0) sec D-Dimer 3.52 H (<0.60) mg/L FEU POC Glucose (mg/dL) 104 H 117 H (75-99) mg/dL 05/02/19 05/02/19 Range/Units 06:52 06:52 MCV 76.6 L (80.0-100.0) fL MCH 22.8 L (25.0-35.0) pg MCHC 29.8 L (31.0-37.0) g/dL RDW 19.4 H (11.5-15.5) % APTT 40.1 H (22.0-30.0) sec D-Dimer (<0.60) mg/L FEU POC Glucose (mg/dL) (75-99) mg/dL Assessment and Plan (1) Splenic infarct Narrative/Plan: 43-year-old female with splenic infarct of unknown etiology - CT performed without contrast did continue to show hypoattenuation of spleen, no obvious active bleeding. If additional CT imaging is required, I would re commend CT with contrast - CONY today, will follow - Consider aspirin as well - Okay to advance diet from surgical perspective pending any procedures by the other services involved Current Visit: Yes Status: Acute Code(s): D73.5 - INFARCTION OF SPLEEN SNOMED Code(s): 65925341
[2019-05-02] MEDS: METOPROLOL TARTRATE 12.5 MG TAB PO SCH ×2 (09:14→20:02)
[2019-05-02] MEDS: LISINOPRIL 2.5 MG TAB PO SCH (09:21)
[2019-05-02] MEDS ORDERED: fentaNYL (PF) 50 MCG/ML 2 ML AMP ONE (11:17)
[2019-05-02] MEDS ORDERED: IV FLUID CONTINUATION 1,000 ML IV ONE (11:28)
[2019-05-02] MEDS: BENZOCAINE SPRAY 1 CAN MUCOUS MEM ONE ×2 (11:50→11:52)
[2019-05-02] MEDS ORDERED: MIDAZOLAM (PF) 2 MG/2 ML VIAL IV ONE (11:57)
[2019-05-02] MEDS ORDERED: fentaNYL (PF) 50 MCG/ML 2 ML AMP IV ONE (11:57)
--- NOTE | 2019-05-02 12:30 | ECHOT ---
TRANSESOPHAGEAL ECHOCARDIOGRAM Mrs Hinson is a 43-year-old female who came with abdominal pain, the CT scan was suggestive of a splenic infarct. In view of that, the patient was advised transesophageal echocardiogram to rule out any cardiac source of emboli. This patient has a history of nonischemic cardiomyopathy and she was treated with anticoagulant because of possible left ventricular thrombus about a year ago at [facility]. The transthoracic echo done at this time does not show any definite evidence of thrombus in the left ventricular apex. PROCEDURE: The patient was given intravenous sedation using Versed and fentanyl and transesophageal echocardiogram was performed without any complications. Left ventricular chamber is dilated with severe degree of global hypokinesia. Estimated ejection fraction is 20%. There is biatrial enlargement noted. There is smoke noted in left ventricle and left atrium. There is no evidence of thrombus in left atrial appendage. Mitral valve morphology is normal. Mild mitral regurgitation is noted. Tricuspid valve morphology is normal. There is a small echogenic structure noted which is slightly flickering in the vicinity of the lead in the right atrium. It could be a small thrombus or vegetations cannot be entirely excluded. The patient does not have any clinical history suggestive of endocarditis. Interatrial septum is intact. There is no evidence of any PFO. FINAL IMPRESSION: 1. There is no definite evidence of thrombus in the left ventricular apex. 2. There is evidence of latesha smoke in the left ventricle, left atrium. 3. There is no evidence of thrombus in the left atrial appendage. Mild mitral regurgitation is noted. 4. There is a small echogenic mass which is flickering in the vicinity of the lead in the right atrium. One cannot completely exclude thrombus or vegetations. RECOMMENDATION: Will suggest to continue the patient on anticoagulation and three blood cultures will be ordered. MMODL / IJN: [id number] /
[2019-05-02] MEDS: HYDROmorphone 0.5 MG/0.5 ML SYRINGE IVP PRN ×2 (15:59→20:00)
[2019-05-02 16:57] LABS: Glucose,Whole Blood 146 mg/dL (75-99)
[2019-05-02] MEDS: APIXABAN 5 MG TAB PO SCH (20:02)
[2019-05-02 20:08] LABS: Glucose,Whole Blood 172 mg/dL (75-99)
[2019-05-02] MEDS: INSULIN DETEMIR (LEVEMIR) 100 UNIT/ML SYR SQ SCH (20:24)
[2019-05-02 23:35] LABS: Glucose,Whole Blood 153 mg/dL (75-99)
[2019-05-03] MEDS: HYDROmorphone 0.5 MG/0.5 ML SYRINGE IVP PRN ×5 (00:11→21:13)
--- NOTE | 2019-05-03 05:32 | PN ---
PROGRESS NOTE DATE OF SERVICE: 05/02/2019 PRESENTING COMPLAINT: Abdominal pain. INTERVAL HISTORY: This patient presented with splenic infarct. It was realized that the patient is not taking Eliquis. CONY was done today and there was some left ventricular smoke and a vegetation could not be ruled out. Dr. Roldan earlier had ordered blood cultures. There has been no fever and chills. Some left flank pain is still present. No other site of any embolism if any. REVIEW OF SYSTEMS: Done for constitutional, cardiovascular, GI, pulmonary; relevant findings as above. CURRENT MEDICATIONS: Current medications are reviewed that include Eliquis, started by Dr. Roldan. Heparin was discontinued. PHYSICAL EXAMINATION: On examination, temperature afebrile, pulse 86, respirations 18, blood pressure 114/66, pulse ox 97% on room air. GENERAL APPEARANCE: Lying in bed, comfortable. EYES: Pupils equal. Conjunctivae normal. NECK: JVD not raised. Mass not palpable. RESPIRATORY: Effort normal. LUNGS: Decreased breath sounds. CARDIOVASCULAR: First and second sounds normal. No edema. ABDOMEN: Soft, nontender. Liver and spleen not palpable. PSYCHIATRY: Alert and oriented x3. Mood and affect normal. INVESTIGATIONS: White count 8.1, hemoglobin 11.7. Accu-Cheks are noted. ASSESSMENT: 1. Acute splenic infarct could be embolic from cardiac given that patient stopped taking Eliquis. 2. Chronic congestive heart failure from systolic dysfunction, ejection fraction 20% from dilated cardiomyopathy. 3. AICD. 4. Chronic obstructive pulmonary disease in an ex-smoker. 5. Diabetes mellitus type 2, chronically on insulin. 6. Essential hypertension. 7. Chronic seizure disorder. 8. Peripheral neuropathy from diabetes. 9. 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 10.Anticoagulation with Eliquis. PLAN: Dr. VC Roldan started the patient on Eliquis 5 mg b.i.d. Blood culture was drawn. I will also get an opinion from Dr. Alvarez to whom the patient is known. We will also check a procalcitonin that might indicate if there is any element of bacterial endocarditis. We will also send off a CRP and an ESR. Will follow. MMODL / IJN: [id number] /
[2019-05-03] MEDS: INSULIN ASPART (NovoLOG) 100 UNIT/ML VIAL SQ SCH ×4 (07:26→20:48)
[2019-05-03 07:37] LABS: Glucose,Whole Blood 114 mg/dL (75-99)
[2019-05-03 07:42] LABS: Anisocytosis Slight; Basophils % (A) 0 %; Eosinophils # (A) 0.5 k/uL (0-0.7); Eosinophils % (A) 6 %; HCT 38.5 % (34.0-46.0); HGB 11.4 gm/dL (11.4-16.0); Hypochromasia Marked; Lymphocytes % (A) 12 %; MCH 22.5 pg (25.0-35.0); MCHC 29.5 g/dL (31.0-37.0); MCV 76.1 fL (80.0-100.0); Mean Platelet Volume 7.4; Microcytosis Moderate; Monocytes # (A) 0.5 k/uL (0-1.0); Monocytes % (A) 6 %; Neutrophils # (A) 6.4 k/uL (1.3-7.7); Neutrophils % (A) 74 %; Platelet Count 234 k/uL (150-450); Poikilocytosis Slight; RBC 5.06 m/uL (3.80-5.40); RDW 19.4 % (11.5-15.5); WBC 8.6 k/uL (3.8-10.6)
[2019-05-03 07:57] LABS: INR 1.2 (<1.2); Prothrombin Time 12.3 sec (9.0-12.0)
[2019-05-03] MEDS: APIXABAN 5 MG TAB PO SCH ×2 (08:04→20:59)
[2019-05-03] MEDS: LISINOPRIL 2.5 MG TAB PO SCH (08:04)
[2019-05-03] MEDS: GABAPENTIN 300 MG CAP PO SCH ×3 (08:04→20:59)
[2019-05-03] MEDS: METOPROLOL TARTRATE 12.5 MG TAB PO SCH ×2 (08:04→20:59)
[2019-05-03] MEDS: FUROSEMIDE 80 MG TAB PO SCH ×2 (08:04→16:09)
[2019-05-03 09:28] LABS: Erythrocyte Sedimentation Rate 78 mm/hr (0-20)
--- NOTE | 2019-05-03 11:08 | ECHOF ---
Referral Reason:lv thrombus MEASUREMENTS -------- HEIGHT: 170.2 cm WEIGHT: 126.1 kg BP: 108/82 RVIDd: 2.9 cm (< 3.3) IVSd: 1.5 cm (0.6 - 1.1) LVIDd: 5.6 cm (3.9 - 5.3) LVPWd: 1.5 cm (0.6 - 1.1) IVSs: 1.6 cm LVIDs: 5.3 cm LVPWs: 1.3 cm LAESV Index (A-L): 44.78 ml/m Ao Diam: 2.9 cm (2.0 - 3.7) AV Cusp: 1.6 cm (1.5 - 2.6) LA Diam: 4.4 cm (2.7 - 3.8) MV EXCURSION: 14.013 mm (> 18.000) MV EF SLOPE: 79 mm/s (70 - 150) EPSS: 2.3 cm MV E Larry: 1.22 m/s MV DecT: 198 ms MV A Larry: 0.72 m/s MV E/A Ratio: 1.69 RAP: 5.00 mmHg RVSP: 36.39 mmHg FINDINGS -------- Sinus rhythm. AICD This was a technically good study. The left ventricle is mildly dilated. There is moderate concentric left ventricular hypertrophy. There is severe global hypokinesis of LV . Overall left ventricular systolic function is severely i mpaired with, an EF < 20%. The right ventricle is normal in size. LA is severely dilated >40 ml/m2 The right atrial size is normal. Lumason used Interatrial and interventricular septum intact. Aortic valve is trileaflet and is mildly thickened. The mitral valve leaflets are mildly thickened. Mild mitral annular calcification present. Mild m itral regurgitation is present. Mild tricuspid regurgitation present. There is mild pulmonary hypertension. The right ventricular systolic pressure, as measured by Doppler, is 36.39mmHg. There is no pulmonic regurgitation present. The aortic root size is normal. CONCLUSIONS -------- 1. Sinus rhythm. 2. AICD 3. This was a technically good study. 4. The left ventricle is mildly dilated. 5. There is moderate concentric left ventricular hypertrophy. 6. There is severe global hypokinesis of LV . 7. Overall left ventricular systolic function is severely impaired with, an EF < 20%. 8. The right ventricle is normal in size. 9. LA is severely dilated >40 ml/m2 10. The right atrial size is normal. 11. Lumason used 12. Interatrial and interventricular septum intact. 13. Aortic valve is trileaflet and is mildly thickened. 14. The mitral valve leaflets are mildly thickened. 15. Mild mitral annular calcification present. 16. Mild mitral regurgitation is present. 17. Mild tricuspid regurgitation present. 18. There is mild pulmonary hypertension. 19. The right ventricular systolic pressure, as measured by Doppler, is 36.39mmHg. 20. There is no pulmonic regurgitation present. 21. The aortic root size is normal. AUDIOVISUAL PRODUCTION SPECIALIST: Shilpa Castillo RDCS
[2019-05-03 12:11] LABS: Glucose,Whole Blood 129 mg/dL (75-99)
[2019-05-03 16:51] LABS: Glucose,Whole Blood 152 mg/dL (75-99)
[2019-05-03 20:41] LABS: Glucose,Whole Blood 115 mg/dL (75-99)
[2019-05-03] MEDS: INSULIN DETEMIR (LEVEMIR) 100 UNIT/ML SYR SQ SCH (22:37)
[2019-05-03 22:51] LABS: Glucose,Whole Blood 119 mg/dL (75-99)
--- NOTE | 2019-05-04 00:04 | P.CONS ---
History of Present Illness - Reason for Consult Consult date: 05/03/19 - Chief Complaint Left upper quadrant abdominal pain - History of Present Illness 43-year-old female well known to the service from her many hospitalizations [facility] regarding her diabetic looks to me ulcerations. She's had a transmetatarsal amputation to the left foot and prior multiple toe amputations. The patient has a known history of underlying significant coronary artery disease, she has evidence of chronic congestive heart failure systolic type, she is evidence of cardiomyopathy with an ejection fraction of 20% and does have an AICD in place. The patient relates that she thinks she may need a new battery. She's had difficulties over the last many months obtaining her medications due to their expense. During her recent stay she was supposed to be on eliquis therapy which she has not been on. The patient did developed a significant increasing amounts of pain to the left upper quadrant to the point in time where she was having difficulties with shortness of breath as she was having some splinting with breathing and coughing. She presented to the emergency center. Computed tomography scan of a splenic infarct. Because of this there was concerns to the possibility of emboli, which could be from endocarditis or from clots. Because of these concerns patient was seen by her rotary shear operator and a CONY was performed. There is evidence of a mobile lesion on the lead of her AICD and could not differentiate between endocarditis or thrombus. With concerns endocarditis the infectious diseases consultation was requested. The patient does not believe she's had significant fevers, chills or rigors in the outpatient setting. She however did have with the pain and some nausea without segun emesis and poor appetite. She did not have hematemesis melena or hematochezia. Review of Systems HEENT:Denies headache or acute visual change. Denies sinus or mouth discomforts. Denies neck stiffness or pain. Denies significant oral cavity pain. Denies difficulty on swallowing. Lungs: Shortness of breath, no cough nonproductive no hemoptysis . Cardiovascular: Dyspnea with exertion, no syncope no true chest pain Gastrointestinal: As noted the HPI had some nausea without emesis left upper quadrant pain Musculoskeletal: Chronic musculoskeletal pain throughout chronic back pain Skin: Denies new rash or lesions. No new ulcers or wounds are related.. Neuro: Denies headache or visual change. Denies any new onset weakness or difficulty with ambulation. Denies falls or seizures. Psychiatric: Chronic anxiety depression, not doing well on her home situation which she cares for her 20-year-old son with Asperger's Endocrine: Profound and worsening fatigue with gain Past Medical History Past Medical History: Asthma, Heart Failure, COPD, CVA/TIA, Diabetes Mellitus, Hypertension, Myocardial Infarction ([place]), Pneumonia, Seizure Disorder, Seizure Disorder Additional Past Medical History / Comment(s): uses a cane. Last seizure unknown Last Myocardial Infarction Date:: 06/2018 History of Any Multi-Drug Resistant Organisms: MRSA, VRE, VRE Year Discovered:: 2016 MDRO Source:: bilat feet Past Surgical History: Adenoidectomy, AICD, Section, Heart Catheterization, Orthopedic Surgery, Pacemaker, Tonsillectomy Additional Past Surgical History / Comment(s): AICD - [employer]. has pacemaker defibrillator, right great toe amputation 04/2016, LT GREAT TOE then left foot partial amputation Past Anesthesia/Blood Transfusion Reactions: Postoperative Nausea & Vomiting (PONV) Type of Cardiac Device: Biventricular Pacemaker, Permanent Pacemaker, AICD Device Placement Date:: 2011 Additional Psychological History / Comment(s): Single. Lives in the family home with her 2 children, as well as her son-in-law and brother. There are 3 pet cats and a dog in the home. 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 No alcohol or IV drug use. Quit smoking in Oct 2017. Has medical marijuana card and smokes marijuana on a daily basis at bedtime for pain control.. Smoking Status: Former smoker Past Alcohol Use History: None Reported Additional Past Alcohol Use History / Comment(s): Patient was a smoker of a half a pack cigarettes per day for 32 years and quit in June 2018. Past Drug Use History: None Reported Additional Drug Use History / Comment(s): medical marijuana card not currently using. - Past Family History Mother Family Medical History: Deep Vein Thrombosis (DVT) Additional Family Medical History / Comment(s): Some type of heart problems, kidney failure. Father History Unknown: Yes Family Medical History: Unable to Obtain Additional Family Medical History / Comment(s): Patient denies knowing any medical history on her father. Medications and Allergies Home Medications and Allergies Comment(s): Current Medications Apixaban (Eliquis) 5 mg PO BID JAN Last Admin: 05/03/19 20:59 Dose: 5 mg Documented by: Furosemide (Lasix) 80 mg PO BID@0900,1600 [facility] Last Admin: 05/03/19 16:09 Dose: 80 mg Documented by: Gabapentin (Neurontin) 600 mg PO TID [facility] Last Admin: 05/03/19 20:59 Dose: 600 mg Documented by: Hydromorphone HCl (Dilaudid) 0.5 mg IVP Q3HR PRN PRN Reason: Moderate Pain Last Admin: 05/03/19 21:13 Dose: 0.5 mg Documented by: Insulin Aspart (Novolog) 0 unit SQ [facility]; Protocol Last Admin: 05/03/19 20:48 Dose: Not Given Documented by: Insulin Detemir (Levemir) 40 unit SQ [facility] Last Admin: 05/03/19 22:37 Dose: 40 unit Documented by: Lisinopril (Zestril) 2.5 mg PO DAILY [facility] Last Admin: 05/03/19 08:04 Dose: 2.5 mg Documented by: Metoprolol Tartrate (Lopressor) 12.5 mg PO BID [facility] Last Admin: 05/03/19 20:59 Dose: 12.5 mg Documented by: Naloxone HCl (Narcan) 0.2 mg IV Q2M PRN PRN Reason: Opioid Reversal Home Medications Medication Instructions Recorded Confirmed Type Gabapentin [Neurontin] 600 mg PO TID #90 tablet 01/09/19 04/30/19 Rx Furosemide [Lasix] 80 mg PO BID@0900,1600 #60 tab 03/16/19 04/30/19 Rx INSULIN ASPART (NovoLOG) [NovoLOG See Protocol SQ AC-TID 04/30/19 04/30/19 History (formulary)] Insulin Glargine [Lantus] 40 unit SQ HS 04/30/19 04/30/19 History Allergies Allergy/AdvReac Type Severity Reaction Status Date / Time Penicillins Allergy Rash/Hives Verified 04/30/19 07:26 ondansetron [From Zofran] AdvReac Nausea & Verified 04/30/19 07:26 Vomiting Physical Exam Vitals: Vital Signs Temp Pulse Resp BP Pulse Ox 05/03/19 19:52 98.5 F 79 17 110/80 97 05/03/19 16:00 71 05/03/19 15:00 98.2 F 71 16 119/80 95 05/03/19 12:25 68 14 103/71 99 05/03/19 07:00 98.2 F 69 16 125/73 95 05/03/19 01:22 98.4 F 75 19 101/62 96 Intake and Output 05/03/19 05/03/19 05/04/19 14:59 22:59 06:59 Intake Total 600 Balance 600 Intake: Oral 600 Other: Voiding Method Toilet # Voids 1 2 Weight 127.2 kg 43-year-old woman who has mild alopecia resting comfortably relates that she still quite miserable when she awakens HEENT: Anicteric conjunctiva are pink and moist nasal mucosa grossly intact without significant lesions, there is no thrush. Neck: The neck is supple without significant lymphadenopathy or thyromegaly. Lungs: Symmetrical air entry, basilar crackles are heard no bronchial sounds all dullness or egophony Heart: Irregular with an audible S1 and S2 soft S4 2/6 systolic murmur left sternal border to the axilla is noted Abdomen: Obese, Positive bowel sounds soft significant tenderness to the left upper quadrant although the spleen itself cannot be palpated. Hepatomegaly is not noted. No intra-abdominal mass is palpable no guarding or rebound Extremities: The upper extremities have excellent pulses they are symmetric, no significant petechiae or telangiectasia. No splinter hemorrhages were noted. Lower extremities have bilateral lower extremity edema. The transmetatarsal amputation site to the left is well-healed without open ulcers. Right foot plantar is evidence of some eschar on the plantar surface without open ulcers no surrounding erythema no ascending erythema Neuro: Awake alert oriented to person place and time. Has evidence of the dense bilateral lower extremity neuropathy no sensation from the ankle distally no other new acute gross focal sensory motor deficits noted Results CBC & Chem 7: 05/03/19 07:17 05/01/19 07:15 Labs: Abnormal Lab Results - Last 24 Hours (Table) 05/03/19 05/03/19 05/03/19 Range/Units 07:17 07:17 07:17 MCV 76.1 L (80.0-100.0) fL MCH 22.5 L (25.0-35.0) pg MCHC 29.5 L (31.0-37.0) g/dL RDW 19.4 H (11.5-15.5) % ESR 78 H (0-20) mm/hr PT 12.3 H (9.0-12.0) sec INR 1.2 H (<1.2) POC Glucose (mg/dL) (75-99) mg/dL C-Reactive Protein 52.1 H (<10.0) mg/L 05/03/19 05/03/19 05/03/19 Range/Units 07:18 11:38 16:28 MCV (80.0-100.0) fL MCH (25.0-35.0) pg MCHC (31.0-37.0) g/dL RDW (11.5-15.5) % ESR (0-20) mm/hr PT (9.0-12.0) sec INR (<1.2) POC Glucose (mg/dL) 114 H 129 H 152 H (75-99) mg/dL C-Reactive Protein (<10.0) mg/L 05/03/19 05/03/19 Range/Units 20:29 22:34 MCV (80.0-100.0) fL MCH (25.0-35.0) pg MCHC (31.0-37.0) g/dL RDW (11.5-15.5) % ESR (0-20) mm/hr PT (9.0-12.0) sec INR (<1.2) POC Glucose (mg/dL) 115 H 119 H (75-99) mg/dL C-Reactive Protein (<10.0) mg/L Microbiology - Last 24 Hours (Table) 05/02/19 14:00 Blood Culture - Preliminary Blood No Growth after 24 hours 05/02/19 13:06 Blood Culture - Preliminary Blood No Growth after 24 hours 05/02/19 13:45 Blood Culture - Preliminary Blood No Growth after 24 hours Laboratory Results WBC 8.6 k/uL (3.8-10.6) 05/03/19 07:17 RBC 5.06 m/uL (3.80-5.40) 05/03/19 07:17 Hgb 11.4 gm/dL (11.4-16.0) 05/03/19 07:17 Hct 38.5 % (34.0-46.0) 05/03/19 07:17 MCV 76.1 fL (80.0-100.0) L 05/03/19 07:17 MCH 22.5 pg (25.0-35.0) L 05/03/19 07:17 MCHC 29.5 g/dL (31.0-37.0) L 05/03/19 07:17 RDW 19.4 % (11.5-15.5) H 05/03/19 07:17 Plt Count 234 k/uL (150-450) 05/03/19 07:17 Neutrophils % 74 % 05/03/19 07:17 Lymphocytes % 12 % 05/03/19 07:17 Monocytes % 6 % 05/03/19 07:17 Eosinophils % 6 % 05/03/19 07:17 Basophils % 0 % 05/03/19 07:17 Neutrophils # 6.4 k/uL (1.3-7.7) 05/03/19 07:17 Lymphocytes # 1.0 k/uL (1.0-4.8) 05/03/19 07:17 Monocytes # 0.5 k/uL (0-1.0) 05/03/19 07:17 Eosinophils # 0.5 k/uL (0-0.7) 05/03/19 07:17 Basophils # 0.0 k/uL (0-0.2) 05/03/19 07:17 Hypochromasia Marked 05/03/19 07:17 Poikilocytosis Slight 05/03/19 07:17 Anisocytosis Slight 05/03/19 07:17 Microcytosis Moderate 05/03/19 07:17 ESR 78 mm/hr (0-20) H 05/03/19 07:17 PT 12.3 sec (9.0-12.0) H 05/03/19 07:17 INR 1.2 (<1.2) H 05/03/19 07:17 APTT 40.1 sec (22.0-30.0) H 05/02/19 06:52 D-Dimer 3.52 mg/L FEU (<0.60) H 05/01/19 23:19 Sodium 138 mmol/L (137-145) 05/01/19 07:15 Potassium 3.5 mmol/L (3.5-5.1) 05/01/19 07:15 Chloride 100 mmol/L (98-107) 05/01/19 07:15 Carbon Dioxide 30 mmol/L (22-30) 05/01/19 07:15 Anion Gap 8 mmol/L 05/01/19 07:15 BUN 16 mg/dL (7-17) 05/01/19 07:15 Creatinine 0.86 mg/dL (0.52-1.04) 05/01/19 07:15 Est GFR (CKD-EPI)AfAm >90 (>60 ml/min/1.73 sqM) 05/01/19 07:15 Est GFR (CKD-EPI)NonAf 83 (>60 ml/min/1.73 sqM) 05/01/19 07:15 Glucose 101 mg/dL (74-99) H 05/01/19 07:15 POC Glucose (mg/dL) 119 mg/dL (75-99) H 05/03/19 22:34 POC Glu Research Recruiter ID Muna Marshall 05/03/19 22:34 Calcium 8.5 mg/dL (8.4-10.2) 05/01/19 07:15 Total Bilirubin 1.1 mg/dL (0.2-1.3) 05/01/19 07:15 AST 18 U/L (14-36) 05/01/19 07:15 ALT 16 U/L (9-52) 05/01/19 07:15 Alkaline Phosphatase 109 U/L (38-126) 05/01/19 07:15 Troponin I <0.012 ng/mL (0.000-0.034) 05/03/19 18:48 C-Reactive Protein 52.1 mg/L (<10.0) H 05/03/19 07:17 Total Protein 6.7 g/dL (6.3-8.2) 05/01/19 07:15 Albumin 3.6 g/dL (3.5-5.0) 05/01/19 07:15 Amylase <30 U/L (30-110) L 04/30/19 01:49 Lipase 37 U/L (23-300) 04/30/19 01:49 Procalcitonin 0.08 ng/mL (0.02-0.09) 05/03/19 07:17 Urine Color Yellow 04/30/19 03:00 Urine Appearance Clear (Clear) 04/30/19 03:00 Urine pH 5.5 (5.0-8.0) 04/30/19 03:00 Ur Specific [place] 1.009 (1.001-1.035) 04/30/19 03:00 Urine Protein Trace (Negative) H 04/30/19 03:00 Urine Glucose (UA) Negative (Negative) 04/30/19 03:00 Urine Ketones Negative (Negative) 04/30/19 03:00 Urine Blood Small (Negative) H 04/30/19 03:00 Urine Nitrite Negative (Negative) 04/30/19 03:00 Urine Bilirubin Negative (Negative) 04/30/19 03:00 Urine Urobilinogen 4.0 mg/dL (<2.0) 04/30/19 03:00 Ur Leukocyte Esterase Negative (Negative) 04/30/19 03:00 Urine RBC 3 /hpf (0-5) 04/30/19 03:00 Urine WBC 3 /hpf (0-5) 04/30/19 03:00 Ur Squamous Epith Cells 1 /hpf (0-4) 04/30/19 03:00 Urine Bacteria Rare /hpf (None) H 04/30/19 03:00 Hyaline Casts 6 /lpf (0-2) H 04/30/19 03:00 Stool Occult Blood Negative (Negative) 05/02/19 16:00 Microbiology 05/02/19 14:00 Blood Blood Culture - Preliminary No Growth after 24 hours 05/02/19 13:06 Blood Blood Culture - Preliminary No Growth after 24 hours 05/02/19 13:45 Blood Blood Culture - Preliminary No Growth after 24 hours Assessment and Plan (1) Abdominal pain Current Visit: Yes Status: Acute Code(s): R10.9 - UNSPECIFIED ABDOMINAL PAIN SNOMED Code(s): 67064685 (2) Splenic infarct Current Visit: Yes Status: Acute Code(s): D73.5 - INFARCTION OF SPLEEN SNOMED Code(s): 80208534 (3) Endocarditis Narrative/Plan: 43-year-old female presents to Hospital with significant increasing pain to the left upper quadrant. Because of his evaluations were performed there is evidence of a splenic infarct. Workup then ensued as to the etiology of this abnormality and a CONY was performed that showed evidence of a mobile lesion on the AICD lead. Concerns to endocarditis or thrombus. No other intracardiac thrombus was noted by the CONY. Multiple cultures arm process and the patient is afebrile at this point in time. Would while cultures are pending ovoid antibiotic therapy until there is further data. She has a history of prior foot infections with staph aureus infection MRSA. However the grossly infected foot underwent a transmetatarsal amputation and is now healed. She is evidence of some callus formation on the right foot plantar surface but no open ulceration is noted at this time. There was mildly elevated leukocytosis at admission there could be in the base of the splenic infarction and is are showed marked improvement. The sed rate and CRP are elevated, but the pro calcitonin is normal. The infarction of the spleen could easily result in the elevation of the acute inflammatory phase reactants. The patient is seen by cardiology and the importance of her anticoagulants are noted and she is now back on elioquis. Social workers been consulted to ensure that she has access to medications at discharge. If she does have endocarditis will need to go to extended care for her treatments Current Visit: Yes Status: Acute Code(s): I38 - ENDOCARDITIS, VALVE UNSPECIFIED SNOMED Code(s): 39716706
[2019-05-04] MEDS: HYDROmorphone 0.5 MG/0.5 ML SYRINGE IVP PRN ×3 (01:20→12:38)
--- NOTE | 2019-05-04 05:35 | PN ---
PROGRESS NOTE DATE OF SERVICE: 05/03/2019 PRESENTING COMPLAINT: Abdominal pain. INTERVAL HISTORY: Patient presented with splenic infarct, felt to be embolic. The patient had not been taking Eliquis. CONY findings is unclear if vegetation or thrombus. Blood cultures were ordered. Although no obvious fevers are present. Patient otherwise tolerating a diet. REVIEW OF SYSTEMS: Done for constitutional, cardiovascular, GI, pulmonary; relevant findings as above. Intermittent left-sided abdominal pain is still present. MEDICATIONS: Current medications are reviewed that include Eliquis. PHYSICAL EXAMINATION: On examination, temperature 98.2, pulse 71, respiration 16, blood pressure 119/80, pulse ox 95% on room air. GENERAL APPEARANCE: Sitting up, awake. EYES: Pupils equal. Conjunctivae normal. NECK: JVD not raised. Mass not palpable. RESPIRATORY: Effort normal. LUNGS: Decreased breath sounds. CARDIOVASCULAR: First and second sounds normal. No edema. ABDOMEN: Soft, nontender. Liver and spleen not palpable. PSYCHIATRY: Alert and oriented x3. Mood and affect normal. INVESTIGATIONS: Accu-Cheks noted. White count 8.6. Procalcitonin 0.08. ASSESSMENT: 1. 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 The patient had stopped taking her Eliquis. 2. Chronic congestive heart failure from systolic dysfunction, ejection fraction 20% from dilated cardiomyopathy. 3. AICD. 4. Chronic obstructive pulmonary disease in an ex-smoker. 5. Diabetes mellitus type 2, chronically on insulin. 6. Essential hypertension. 7. Chronic seizure disorder. 8. Peripheral neuropathy from diabetes. 9. 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 10.Anticoagulation on Eliquis. 11.Abnormal finding on CONY, it is unclear this is thrombus versus vegetation. It may be noted that the patient has had no fever, no white count, and the procalcitonin is 0.08, which has got a good negative predictive value though patient's ESR is 78. PLAN: Continue current medication and treatment plan. Care was discussed with the patient. We will await input from Dr. Alvarez and Dr. Lavonne Roldan. Will follow. MMODL / IJN: [id number] /
[2019-05-04 07:21] LABS: Glucose,Whole Blood 83 mg/dL (75-99)
[2019-05-04] MEDS: INSULIN ASPART (NovoLOG) 100 UNIT/ML VIAL SQ SCH ×3 (07:25→17:08)
[2019-05-04 07:37] LABS: INR 1.2 (<1.2)
--- NOTE | 2019-05-04 07:49 | P.PN ---
Subjective Progress Note Date: 05/04/19 Patient seen and examined at bedside. States she is feeling better and her pain is improving. Tolerating diet. Denies nausea or vomiting. Objective - Vital Signs Vital signs: Vital Signs Temp 98.5 F 05/04/19 02:45 Pulse 74 05/04/19 02:45 Resp 18 05/04/19 02:45 BP 108/73 05/04/19 02:45 Pulse Ox 97 05/04/19 02:45 Intake & Output 05/03/19 05/04/19 05/04/19 18:59 06:59 18:59 Intake Total 600 Balance 600 Weight 127.2 kg 124.5 kg Intake: Oral 600 Other: Voiding Method Toilet Toilet # Voids 1 1 - Constitutional General appearance: Present: cooperative, no acute distress - EENT Eyes: Present: PERRLA - Respiratory Details: No difficulty with respiration - Gastrointestinal Gastrointestinal Comment(s): Soft, nontender, nondistended, no rebound, no guarding - Psychiatric Psychiatric: Present: A&O x's 3 - Labs CBC & Chem 7: 05/03/19 07:17 05/01/19 07:15 Labs: Abnormal Lab Results - Last 24 Hours (Table) 05/03/19 05/03/19 05/03/19 Range/Units 07:17 07:17 07:17 MCV 76.1 L (80.0-100.0) fL MCH 22.5 L (25.0-35.0) pg MCHC 29.5 L (31.0-37.0) g/dL RDW 19.4 H (11.5-15.5) % ESR 78 H (0-20) mm/hr PT 12.3 H (9.0-12.0) sec INR 1.2 H (<1.2) POC Glucose (mg/dL) (75-99) mg/dL C-Reactive Protein 52.1 H (<10.0) mg/L 05/03/19 05/03/19 05/03/19 Range/Units 07:18 11:38 16:28 MCV (80.0-100.0) fL MCH (25.0-35.0) pg MCHC (31.0-37.0) g/dL RDW (11.5-15.5) % ESR (0-20) mm/hr PT (9.0-12.0) sec INR (<1.2) POC Glucose (mg/dL) 114 H 129 H 152 H (75-99) mg/dL C-Reactive Protein (<10.0) mg/L 05/03/19 05/03/19 Range/Units 20:29 22:34 MCV (80.0-100.0) fL MCH (25.0-35.0) pg MCHC (31.0-37.0) g/dL RDW (11.5-15.5) % ESR (0-20) mm/hr PT (9.0-12.0) sec INR (<1.2) POC Glucose (mg/dL) 115 H 119 H (75-99) mg/dL C-Reactive Protein (<10.0) mg/L Microbiology - Last 24 Hours (Table) 05/02/19 14:00 Blood Culture - Preliminary Blood No Growth after 24 hours 05/02/19 13:06 Blood Culture - Preliminary Blood No Growth after 24 hours 05/02/19 13:45 Blood Culture - Preliminary Blood No Growth after 24 hours Assessment and Plan (1) Splenic infarct Narrative/Plan: 43-year-old female with splenic infarct of unknown etiology - Patient being worked up by cardiology and infectious disease - Tolerating diet - Currently no plan for acute surgical intervention. Please call as needed for any further recommendations. Current Visit: Yes Status: Acute Code(s): D73.5 - INFARCTION OF SPLEEN SNOMED Code(s): 64654821
[2019-05-04 08:01] VITALS: RESP 16
[2019-05-04] MEDS: FUROSEMIDE 80 MG TAB PO SCH ×2 (08:26→15:42)
[2019-05-04] MEDS: GABAPENTIN 300 MG CAP PO SCH ×2 (08:26→15:42)
[2019-05-04] MEDS: APIXABAN 5 MG TAB PO SCH (08:26)
[2019-05-04] MEDS: METOPROLOL TARTRATE 12.5 MG TAB PO SCH ×2 (08:27→17:56)
[2019-05-04] MEDS: LISINOPRIL 2.5 MG TAB PO SCH (08:27)
[2019-05-04 08:39] LABS: Anisocytosis Slight; Basophils % (A) 1 %; Eosinophils # (A) 0.4 k/uL (0-0.7); Eosinophils % (A) 6 %; HCT 38.7 % (34.0-46.0); HGB 11.6 gm/dL (11.4-16.0); Hypochromasia Marked; Lymphocytes # (A) 1.4 k/uL (1.0-4.8); Lymphocytes % (A) 20 %; MCH 23.2 pg (25.0-35.0); MCHC 29.9 g/dL (31.0-37.0); MCV 77.7 fL (80.0-100.0); Mean Platelet Volume 7.1; Microcytosis Slight; Monocytes # (A) 0.6 k/uL (0-1.0); Monocytes % (A) 9 %; Neutrophils # (A) 4.4 k/uL (1.3-7.7); Neutrophils % (A) 63 %; Platelet Count 202 k/uL (150-450); Poikilocytosis Slight; RBC 4.97 m/uL (3.80-5.40); RDW 19.1 % (11.5-15.5)
[2019-05-04 11:51] LABS: Glucose,Whole Blood 109 mg/dL (75-99)
[2019-05-04 14:41] VITALS: BP 112/74; PULSE 68; TEMP 98
[2019-05-04 16:51] LABS: Glucose,Whole Blood 127 mg/dL (75-99)
[2019-05-04] MEDS ORDERED: APIXABAN 5 MG TAB PO SCH (21:00)
== END 2019-05-04 18:18 | disposition home or self-care (01) | DRG 815 ==
LOC: EC 00:36 → 4SSUR 03:59
PROVIDERS: ADMIT Hospitalist; ATTEND Hospitalist
PROC: B246ZZ4 Ultrasonography of Right and Left Heart, Transesophageal (ICD-10-PCS; principal; 2019-05-02 11:00)
DX: D73.5 Infarction of spleen (principal); I42.0 Dilated cardiomyopathy; I50.22 Chronic systolic (congestive) heart failure; Z68.41 Body mass index [BMI] 40.0-44.9, adult; E11.42 Type 2 diabetes mellitus with diabetic polyneuropathy; E66.01 Morbid (severe) obesity due to excess calories; D72.829 Elevated white blood cell count, unspecified; E78.5 Hyperlipidemia, unspecified; Z87.891 Personal history of nicotine dependence; G40.909 Epilepsy, unspecified, not intractable, without status epilepticus; I11.0 Hypertensive heart disease with heart failure; I25.10 Atherosclerotic heart disease of native coronary artery without angina pectoris; I25.2 Old myocardial infarction; R93.1 Abnormal findings on diagnostic imaging of heart and coronary circulation; I48.91 Unspecified atrial fibrillation; J44.9 Chronic obstructive pulmonary disease, unspecified; Z79.4 Long term (current) use of insulin; Z79.899 Other long term (current) drug therapy; Z86.718 Personal history of other venous thrombosis and embolism; Z86.73 Personal history of transient ischemic attack (TIA), and cerebral infarction without residual deficits; Z95.810 Presence of automatic (implantable) cardiac defibrillator; Z88.0 Allergy status to penicillin; Z88.8 Allergy status to other drugs, medicaments and biological substances; Z87.01 Personal history of pneumonia (recurrent); Z86.14 Personal history of Methicillin resistant Staphylococcus aureus infection; I34.0 Nonrheumatic mitral (valve) insufficiency; F32.9 Major depressive disorder, single episode, unspecified; F41.9 Anxiety disorder, unspecified; Z89.432 Acquired absence of left foot; Z89.411 Acquired absence of right great toe
CPT/HCPCS: 36415; 74176; 80053; 81001; 82150; 82272; 83690; 84145; 84484; 85025; 85379; 85610; 85652; 85730; 86140; 87040; 93005; 93306; 93312; 93320; 93325; 96361; 96374; 96375; 99285

== ENCOUNTER 2019-07-26 12:38 | Inpatient (IN) | payer MEDICARE ==
[2019-07-26] MEDS ORDERED: SODIUM CHLORIDE 0.9% 1,000 ML IV STA ×2 (13:00)
[2019-07-26 13:12] LABS: Glucose,Whole Blood 149 mg/dL (75-99)
--- NOTE | 2019-07-26 13:13 | ED ---
Chest Pain HPI - General Chief Complaint: Chest Pain Stated Complaint: chest pain Time Seen by Provider: 07/26/19 12:59 Source: patient, RN notes reviewed, old records reviewed Mode of arrival: ambulatory Limitations: no limitations - History of Present Illness Initial Comments: This is a 43-year-old female the ER for evaluation. Patient's long calm. Significant medical history rising from heart disease to cardiovascular severe diabetes, seizure disorder. Patient presents today with difficulty finding words episode chest pain prior to arrival and current shortness of breath. Patient currently chest pain-free. Mild shortness of breath, no significant weakness numbness or tingling of upper and lower extremities. She states she's having trouble finding words but is able to speak clearly currently. MD Complaint: chest pain (Prior to arrival now gone), other (Difficulty with word finding) -: minutes(s) Onset: during rest Pain Location: substernal (Now resolved) Pain Radiation: none Severity: moderate Severity scale (1-10): 4 Quality: tightness Consistency: now resolved Improves With: nothing Worsens With: nothing Anginal Symptoms: dyspnea Treatments Prior to Arrival: none - Related Data Home Medications Medication Instructions Recorded Confirmed INSULIN ASPART (NovoLOG) [NovoLOG See Protocol SQ AC-TID 04/30/19 07/26/19 (formulary)] Insulin Glargine [Lantus] 30 unit SQ DAILY 04/30/19 07/26/19 Atorvastatin [Lipitor] 80 mg PO DAILY 07/26/19 07/26/19 Carvedilol [Coreg] 6.25 mg PO BID 07/26/19 07/26/19 Spironolactone [Aldactone] 25 mg PO BID 07/26/19 07/26/19 Previous Rx's Medication Instructions Recorded Gabapentin [Neurontin] 600 mg PO TID #90 tablet 01/09/19 Furosemide [Lasix] 80 mg PO BID@0900,1600 #60 tab 03/16/19 Lisinopril [Zestril] 2.5 mg PO DAILY #30 tab 05/04/19 Allergies Allergy/AdvReac Type Severity Reaction Status Date / Time Penicillins Allergy Rash/Hives Verified 07/26/19 13:47 ondansetron [From Zofran] AdvReac Nausea & Verified 07/26/19 13:47 Vomiting Review of Systems ROS Statement: Those systems with pertinent positive or pertinent negative responses have been documented in the HPI. ROS Other: All systems not noted in ROS Statement are negative. EKG Findings - EKG Comments: EKG Findings:: EKG shows paced rhythm rate of 83, CT 174, QRS 122, QTc 500 Past Medical History Past Medical History: Asthma, Heart Failure, COPD, CVA/TIA, Diabetes Mellitus, Hypertension, Myocardial Infarction (VT), Pneumonia, Seizure Disorder, Seizure Disorder Additional Past Medical History / Comment(s): uses a cane. Last seizure unknown Last Myocardial Infarction Date:: 06/2018 History of Any Multi-Drug Resistant Organisms: MRSA, VRE, VRE Date of last positivie culture/infection: 2016 MDRO Source:: bilat feet Past Surgical History: Adenoidectomy, AICD, Section, Heart Catheterization, Orthopedic Surgery, Pacemaker, Tonsillectomy Additional Past Surgical History / Comment(s): AICD - [employer]. has pacemaker defibrillator, right great toe amputation 04/2016, LT GREAT TOE then left foot partial amputation Past Anesthesia/Blood Transfusion Reactions: Postoperative Nausea & Vomiting (PONV) Type of Cardiac Device: Biventricular Pacemaker, Permanent Pacemaker, AICD Device Placement Date:: 2011 Past Psychological History: Bipolar Smoking Status: Former smoker Past Alcohol Use History: None Reported Past Drug Use History: None Reported - Past Family History Mother Family Medical History: Deep Vein Thrombosis (DVT) Additional Family Medical History / Comment(s): Some type of heart problems, kidney failure. Father History Unknown: Yes Family Medical History: Unable to Obtain Additional Family Medical History / Comment(s): Patient denies knowing any medical history on her father. General Exam Limitations: no limitations, altered mental status (Patient believes that her voice is changed from normal, difficulty finding words) General appearance: alert, in no apparent distress Head exam: Present: atraumatic, normocephalic, normal inspection Eye exam: Present: normal appearance, PERRL, EOMI. Absent: scleral icterus, conjunctival injection, periorbital swelling ENT exam: Present: normal exam, mucous membranes moist Neck exam: Present: normal inspection. Absent: tenderness, meningismus, l ymphadenopathy Respiratory exam: Present: normal lung sounds bilaterally. Absent: respiratory distress, wheezes, rales, rhonchi, stridor Cardiovascular Exam: Present: regular rate, normal rhythm, normal heart sounds. Absent: systolic murmur, diastolic murmur, rubs, gallop, clicks GI/Abdominal exam: Present: soft, normal bowel sounds. Absent: distended, tenderness, guarding, rebound, rigid Extremities exam: Present: normal inspection, full ROM, normal capillary refill. Absent: tenderness, pedal edema, joint swelling, calf tenderness Back exam: Present: normal inspection Neurological exam: Present: alert, oriented X3, CN II-XII intact Psychiatric exam: Present: normal affect, normal mood Skin exam: Present: warm, dry, intact, normal color. Absent: rash Course Vital Signs 07/26/19 12:44 Temperature 97.8 F Pulse Rate 82 Respiratory 18 Rate Blood Pressure 144/85 O2 Sat by Pulse 99 Oximetry - Reevaluation(s) Reevaluation #1: 07/26/19 13:17 Medical records reviewed Reevaluation #2: 07/26/19 15:19 Patient symptoms are currently mildly improvement Reevaluation #3: 07/26/19 15:20 Patient remains a chest pain or shortness of breath Reevaluation #4: 07/26/19 15:[address] brain is negative for acute disease, chest x-rays negative for acute disease Chest Pain MDM - MDM 43 female the ER with aches expressive dysphagia or dysphonia finding words. Patient has no problems and identify objects or with speech in general. No other focal neurological deficits found. Patient also episodes of chest pain shortness with prior to arrival d-dimer is elevated the patient is on Alquist taken appropriately. Not hypoxic and tachycardic. No current chest pain. Patient will admit for neurological evaluation Disposition Clinical Impression: Chest pain, TIA (transient ischemic attack), CVA (cerebral vascular accident) Disposition: ADMITTED IP TO THIS HOSP Condition: Fair Is patient prescribed a controlled substance at d/c from ED?: No Referrals: Dylan Causey MD [Primary Care Provider] - 1-2 days
[2019-07-26 13:22] LABS: Anisocytosis Slight; Basophils % (A) 1 %; Eosinophils # (A) 0.3 k/uL (0-0.7); Eosinophils % (A) 4 %; HCT 41.2 % (34.0-46.0); HGB 12.8 gm/dL (11.4-16.0); Lymphocytes # (A) 1.8 k/uL (1.0-4.8); Lymphocytes % (A) 21 %; MCH 24.6 pg (25.0-35.0); MCHC 31.1 g/dL (31.0-37.0); MCV 79.1 fL (80.0-100.0); Mean Platelet Volume 7.2; Microcytosis Slight; Monocytes # (A) 0.4 k/uL (0-1.0); Monocytes % (A) 5 %; Neutrophils # (A) 5.8 k/uL (1.3-7.7); Neutrophils % (A) 68 %; Platelet Count 271 k/uL (150-450); RBC 5.21 m/uL (3.80-5.40); RDW 17.3 % (11.5-15.5); WBC 8.6 k/uL (3.8-10.6)
[2019-07-26 13:31] LABS: ALT 20 U/L (9-52); AST 26 U/L (14-36); African American GFR (CKD) >90 (>60 ml/min/1.73 sqM); Albumin 4.4 g/dL (3.5-5.0); Alkaline Phosphatase 146 U/L (38-126); Anion Gap 13 mmol/L; Blood Urea Nitrogen 26 mg/dL (7-17); Calcium 9.6 mg/dL (8.4-10.2); Carbon Dioxide 21 mmol/L (22-30); Chloride 105 mmol/L (98-107); Glucose 147 mg/dL (74-99); Magnesium 1.8 mg/dL (1.6-2.3); Potassium 4.2 mmol/L (3.5-5.1); Sodium 139 mmol/L (137-145); Total Bilirubin 0.6 mg/dL (0.2-1.3)
[2019-07-26 13:44] LABS: INR 0.9 (<1.2)
[2019-07-26 14:07] LABS: D-Dimer 0.63 mg/L FEU (<0.60); Partial Thromboplastin Time 19.6 sec (22.0-30.0)
--- NOTE | 2019-07-26 14:08 | CT ---
EXAMINATION TYPE: CT brain wo con DATE OF EXAM: 07/26/2019 COMPARISON: CT brain August 07, 2017. HISTORY: Weakness and head pain. CT DLP: 1119.4 mGycm. Automated Exposure Control for Dose Reduction was Utilized. TECHNIQUE: CT scan of the head is performed without contrast. FINDINGS: There is no acute intracranial hemorrhage, mass effect, or midline shift identified. The ventricles and sulci are within normal limits in size. The globes are intact and the visualized sin uses are clear. IMPRESSION: No acute intracranial hemorrhage or midline shift is seen. No significant change from pr ior.
--- NOTE | 2019-07-26 14:23 | XR ---
EXAMINATION TYPE: XR chest 2V DATE OF EXAM: 07/26/2019 COMPARISON: Chest x-ray March 15, 2019. HISTORY: History of COPD with shortness of breath and chest pain. TECHNIQUE: Frontal and lateral views of the chest are obtained. FINDINGS: There is chronic parenchymal changes bilaterally without suspicious focal air space opacit y, pleural effusion, or pneumothorax seen. The cardiac silhouette size remains enlarged with multi l ead pacemaker/AICD. The osseous structures are intact. IMPRESSION: Chronic changes and cardiomegaly without acute pulmonary process.
[2019-07-26] MEDS ORDERED: ASPIRIN 325 MG TAB PO STA (15:17)
[2019-07-26 19:09] VITALS: RESP 16
--- NOTE | 2019-07-26 20:21 | P.CNNES ---
History of Present Illness Consult date: 07/26/19 Requesting physician: Calvin Gee Reason for Consult: Expressive aphasia Chief complaint: Spells of brain fog and speech disturbance History of Present Illness: This is a 43 LH female h/o GA, cardiomyopathy s/p pacemaker implantation and bipolar disorder here because of recurrent spells of chest pressure then feeling foggy in the brain, uncontrollable eye blinking and fluttering and speech disturbance in the form of garbled and slurred speech and WFD. She carries a history of "seizure," which refers to the above symptoms. Denies tonic-clonic or myoclonic activity, tongue biting, bowel/bladder incontinence or post-ictal confusion. Patient states that her speech is getting better but is not completely back to normal. She had a routine EEG in the past that was unrevealing. She has never had EEG monitoring or seen an epileptologist to further characterize her spells. She has never been on an AED before. Denies recent head/neck trauma. No h/o SURGICAL SUPPLY ASSISTANT infection. No recent changes in her physical or dietary habits. No new meds. Neurologically, denies decreased level or loss of consciousness, headache, diplopia, amaurosis, facial numbness or droop, vertigo, dysphagia, focal numbness/weakness, tremors or ataxia. Review of Systems I have performed a 14-point organ ROS with patient; pertinents are as per HPI. Past Medical History Past Medical History: Asthma, Heart Failure, COPD, CVA/TIA, Diabetes Mellitus, Hypertension, Myocardial Infarction (GA), Pneumonia, Seizure Disorder, Seizure Disorder Additional Past Medical History / Comment(s): uses a cane. Last seizure unknown Last Myocardial Infarction Date:: 06/2018 History of Any Multi-Drug Resistant Organisms: MRSA, VRE, VRE Date of last positivie culture/infection: 2016 MDRO Source:: bilat feet Past Surgical History: Adenoidectomy, AICD, Section, Heart Catheterization, Orthopedic Surgery, Pacemaker, Tonsillectomy Additional Past Surgical History / Comment(s): AICD - [employer]. has pacemaker defibrillator, right great toe amputation 04/2016, LT GREAT TOE then left foot partial amputation Past Anesthesia/Blood Transfusion Reactions: Postoperative Nausea & Vomiting (PONV) Type of Cardiac Device: Biventricular Pacemaker, Permanent Pacemaker, AICD Device Placement Date:: 2011 Past Psychological History: Bipolar Smoking Status: Former smoker Past Alcohol Use History: None Reported Past Drug Use History: None Reported - Past Family History Mother Family Medical History: Deep Vein Thrombosis (DVT) Additional Family Medical History / Comment(s): Some type of heart problems, kidney failure. Father History Unknown: Yes Family Medical History: Unable to Obtain Additional Family Medical History / Comment(s): Patient denies knowing any medical history on her father. Medications and Allergies Home Medications Medication Instructions Recorded Confirmed Type Gabapentin [Neurontin] 600 mg PO TID #90 tablet 01/09/19 07/26/19 Rx Furosemide [Lasix] 80 mg PO BID@0900,1600 #60 tab 03/16/19 07/26/19 Rx INSULIN ASPART (NovoLOG) [NovoLOG See Protocol SQ AC-TID 04/30/19 07/26/19 History (formulary)] Insulin Glargine [Lantus] 30 unit SQ DAILY 04/30/19 07/26/19 History Lisinopril [Zestril] 2.5 mg PO DAILY #30 tab 05/04/19 07/26/19 Rx Atorvastatin [Lipitor] 80 mg PO DAILY 07/26/19 07/26/19 History Carvedilol [Coreg] 6.25 mg PO BID 07/26/19 07/26/19 History Spironolactone [Aldactone] 25 mg PO BID 07/26/19 07/26/19 History Allergies Allergy/AdvReac Type Severity Reaction Status Date / Time Penicillins Allergy Rash/Hives Verified 07/26/19 13:47 ondansetron [From Zofran] AdvReac Nausea & Verified 07/26/19 13:47 Vomiting Physical Examination - Vital Signs Vital Signs: Vital Signs Temp Pulse Resp BP Pulse Ox 07/26/19 16:00 73 16 115/72 98 07/26/19 15:00 109/73 97 07/26/19 14:00 75 18 133/72 07/26/19 13:00 82 14 145/86 99 07/26/19 12:55 81 17 99 07/26/19 12:44 97.8 F 82 18 144/85 99 Intake and Output 07/26/19 07/26/19 07/26/19 06:59 14:59 22:59 Other: Weight 122.47 kg Gen NAD Pleasant and cooperative HEENT NCAT Sclera without icterus O/P clear Neck Supple No carotid bruit Cor RRR no m/r/g Lungs CTAB Abd Soft NTND +BS Ext Warm to touch No edema Neuro MS A+Ox4 Slow but fluent speech that is on occasion halting Able to follow all commands and articulate a detailed medical history CN PERRL VFF no APD EOMI no nystagmus or JUVENCIO No facial asymmetry Masseter's symmetric Hearing intact to normal voice bilaterally Speech not dysarthric Equal elevation of palate Tongue midline Sym shrug and SCM bilaterally Motor Normal bulk/tone No pronator or tremors Strength 5/5 sym throughout Sens Intact to LT x4 No neglect or extinction Coord No dysmetria on FTN bilaterally DTRs 2+/4 sym throughout Toes downgoing bilaterally No clonus at achilles Gait Deferred NIHSS 0 Results - Laboratory Findings CBC and BMP: 07/26/19 13:08 07/26/19 13:08 Abnormal Lab Findings: Abnormal Labs 07/26/19 07/26/19 07/26/19 12:58 13:08 13:08 MCV 79.1 L MCH 24.6 L RDW 17.3 H APTT D-Dimer Carbon Dioxide 21 L BUN 26 H Glucose 147 H POC Glucose (mg/dL) 149 H Alkaline Phosphatase 146 H 07/26/19 13:08 MCV MCH RDW APTT 19.6 L D-Dimer 0.63 H Carbon Dioxide BUN Glucose POC Glucose (mg/dL) Alkaline Phosphatase - Diagnostic Findings Additional findings: CT Head wo cont 07/26/19. No ICH. Nil acute. I have reviewed neuroimages myself. Assessment and Plan Assessment: Recurrent episodes of chest pressure, brain fog, eyes fluttering and speech disturbance- does not sounds like vascular/TIA. Sounds more like PNES, r/o other medical/hemodynamic etiologies Plan: -Cannot obtain MRI Brain due to pacemaker -EEG -Carotid duplex -On aspirin and statin -TSH, B12, U/A -Since she states that her episodes start with chest pressure, given her significant cardiac history, would defer to primary team and/or cardiology to make sure no hemodynamic issues that may affect neurological functions -If all of the above negative, she may benefit from consulting with outpatient epileptology for consideration of ambulatory EEG or other extended EEG monitoring to further characterize spell that sounds non-epileptic to me -d/w patient in detail. All questions answered. Thank you for this consultation. Please call with ?. Time with Patient: Greater than 30 (time spent in direct patient care, greater than 50% of which was spent in [id number] counseling and coordination of care: 70 minutes)
[2019-07-26] MEDS ORDERED: MORPHINE SULFATE 4 MG/ML SYRINGE IVP PRN (20:27)
[2019-07-26] MEDS ORDERED: MORPHINE SULFATE 4 MG/ML SYRINGE IVP STA (20:27)
[2019-07-26] MEDS ORDERED: ATORVASTATIN 80 MG TAB PO SCH (21:00)
[2019-07-26 21:12] LABS: Glucose,Whole Blood 127 mg/dL (75-99)
[2019-07-26] MEDS: SPIRONOLACTONE 25 MG TAB PO SCH (22:47)
[2019-07-26] MEDS: GABAPENTIN 300 MG CAP PO SCH (22:47)
[2019-07-26] MEDS: CARVEDILOL 6.25 MG TAB PO SCH (22:47)
[2019-07-27] MEDS: SODIUM CHLORIDE 0.9% 1,000 ML IV SCH ×3 (02:09→12:22)
[2019-07-27 02:32] LABS: T4, Free (Free Thyroxine) 0.88 ng/dL (0.78-2.19)
[2019-07-27 05:48] LABS: Glucose,Whole Blood 105 mg/dL (75-99)
[2019-07-27] MEDS: CARVEDILOL 6.25 MG TAB PO SCH ×2 (06:47→16:34)
[2019-07-27] MEDS: INSULIN ASPART (NovoLOG) 100 UNIT/ML VIAL SQ SCH ×3 (06:50→17:39)
[2019-07-27] MEDS ORDERED: INSULIN DETEMIR (LEVEMIR) 100 UNIT/ML SYR SQ SCH (07:00)
[2019-07-27] MEDS: GABAPENTIN 300 MG CAP PO SCH ×2 (08:40→16:34)
[2019-07-27] MEDS: SPIRONOLACTONE 25 MG TAB PO SCH (08:44)
[2019-07-27] MEDS: FUROSEMIDE 80 MG TAB PO SCH ×2 (08:44→16:34)
[2019-07-27] MEDS ORDERED: LISINOPRIL 2.5 MG TAB PO SCH (09:00)
[2019-07-27] MEDS ORDERED: ATORVASTATIN 80 MG TAB PO SCH (09:00)
--- NOTE | 2019-07-27 09:11 | US ---
EXAMINATION TYPE: US carotid duplex BILAT DATE OF EXAM: 07/26/2019 COMPARISON: US CLINICAL HISTORY: Dysarthria. Dysarthria. Previous smoker. EXAM MEASUREMENTS: RIGHT: Peak Systolic Velocity (PSV) cm/sec ----- Right CCA: 63.3 ----- Right ICA: 94.9 ----- Right ECA: 62.1 ICA/CCA ratio: 1.5 RIGHT: End Diastole cm/sec ----- Right CCA: 19.7 ----- Right ICA: 38.8 ----- Right ECA: 10.2 LEFT: Peak Systolic Velocity (PSV) cm/sec ----- Left CCA: 64.8 ----- Left ICA: 85.0 ----- Left ECA: 78.4 ICA/CCA ratio: 1.3 LEFT: End Diastole cm/sec ----- Left CCA: 23.8 ----- Left ICA: 42.1 ----- Left ECA: 11.3 VERTEBRALS (direction of flow): Right Vertebral: Antegrade Left Vertebral: Antegrade Rhythm: Normal Intimal thickening seen left CCA. Minimal plaque seen bilateral CCA bifurcations. No elevated velocit ies obtained. Multiple hypoechoic areas seen near bilateral CCAs. Largest on right measures: 1.7 x 1.3 x 0.4 cm. La rgest on left measures: 2.1 x 1.6 x 0.6 cm. Incidental finding: heterogeneous right thyroid lobe. Area of mixed echogenicity measured: 1.0 x 0.7 x 0.4 cm. IMPRESSION: 1. Atherosclerotic plaque bilaterally with no significant hemodynamic stenosis. 2. Abnormal appearance of the thyroid recommend follow-up ultrasound 3. Bilateral lymph nodes seen within the neck. Short axis measurement is within normal limits. Criteria for Assigning % of Stenosis / Diameter reduction (Estimation based on the indirect measurements of the internal carotid artery velocities (ICA PSV). 1. Normal (no stenosis)=ICA PSV < 125 cm/s: ratio < 2.0: ICA EDV<40 cm/s. 2. Less than 50% stenosis=ICA PSV < 125 cm/s: ratio < 2.0: ICA EDV<40 cm/s. 3. 50 to 69% stenosis=ICA PSV of 125 to 230 cm/s: ration 2.0 ? 4.0: ICA EDV 40-100 cm/s. 4. Greater than 70% stenosis to near occlusion= ICA PSV > 230 cm/s: ratio > 4.0: ICA EDV > 100 cm/s. 5. Near occlusion= ICA PSV velocities may be low or undetectable: variable ratio and ICA EDV. 6. Total occlusion=unable to detect flow.
[2019-07-27 09:40] LABS: Appearance,Urine Clear (Clear); Bacteria,Urine Few /hpf; Bilirubin,Urine Negative (Negative); Blood,Urine Negative (Negative); Color,Urine Yellow; Glucose,Urine (UA) Negative (Negative); Ketones,Urine Negative (Negative); Leukocyte Esterase,Urine Small (Negative); Mucus,Urine Rare /hpf; Nitrite,Urine Negative (Negative); PH, Urine 5.5 (5.0-8.0); Protein,Urine Negative (Negative); RBC,Urine 1 /hpf (0-5); Specific Gravity,Urine 1.016 (1.001-1.035); Squamous Epithelial Cell,Urine 4 /hpf (0-4); Urobilinogen,Urine <2.0 mg/dL (<2.0); WBC,Urine 2 /hpf (0-5)
[2019-07-27] MEDS ORDERED: ACETAMINOPHEN TAB 500 MG TAB PO STA (11:10)
--- NOTE | 2019-07-27 11:59 | EEG ---
ELECTROENCEPHALOGRAM REPORT DATE OF TESTING: July 27, 2019. CLINICAL PROBLEM: Episodes of chest pressure, eyes fluttering, "brain fog", and speech disturbance. EEG was requested to rule out epileptic activity. TYPE OF RECORDING: Bedside tracing using the 10-20 international electrode placement system. No sedation was given prior to the beginning of this recording. FINDINGS: At the beginning of this tracing, there is a symmetric alpha rhythm that attenuates on eye opening and returns upon eye closure. Photic stimulation elicits a symmetric driving response. Hyperventilation is not performed in this recording. As the tracing progresses, there is some slowing of the background into the theta range. No definitive sleep architecture is seen. There was one episode of right arm jerking and head bouncing that is seen with only EMG changes without other electrographic correlates. There is no background asymmetry, ictal or interictal patterns appreciated. IMPRESSION: This is a normal awake/drowsy electroencephalogram. There was one episode captured involving right arm jerking and head bouncing that was nonepileptic. Clinical correlation is advised. MMEDINL / IJN: [id number] /
[2019-07-27 12:00] LABS: Glucose,Whole Blood 136 mg/dL (75-99)
--- NOTE | 2019-07-27 12:45 | P.PN ---
Subjective Progress Note Date: 07/27/19 Principal diagnosis: Episode of chest pressure, brain fog and speech disturbance Carotid duplex. EEG. Speech better. No other neuro c/o. Objective - Vital Signs Vital signs: Vital Signs Temp 97.9 F 07/27/19 12:00 Pulse 74 07/27/19 12:00 Resp 16 07/27/19 12:00 BP 102/58 07/27/19 12:00 Pulse Ox 96 07/27/19 08:00 Intake & Output 07/26/19 07/27/19 07/27/19 18:59 06:59 18:59 Intake Total 200 800 Balance 200 800 Weight 122.47 kg 123.6 kg Intake: Intake, IV Titration 800 Amount Sodium Chloride 0.9% 1, 800 000 ml @ 100 mls/hr IV . Q10H JAN Rx#:[id number] Oral 200 - Exam Gen NAD Pleasant and cooperative MS A+Ox4 Normal fluency and comprehension CN II-XII grossly intact no nystagmus Motor Normal bulk/tone No drift or tremors Strength 5/5 sym throughout Sens Intact to LT x4 Coord Not tested DTRs 2+/4 sym throughout Gait Deferred - Labs CBC & Chem 7: 07/26/19 13:08 07/26/19 13:08 Labs: Abnormal Lab Results - Last 24 Hours (Table) 07/26/19 07/26/19 07/26/19 Range/Units 12:58 13:08 13:08 MCV 79.1 L (80.0-100.0) fL MCH 24.6 L (25.0-35.0) pg RDW 17.3 H (11.5-15.5) % APTT (22.0-30.0) sec D-Dimer (<0.60) mg/L FEU Carbon Dioxide 21 L (22-30) mmol/L BUN 26 H (7-17) mg/dL Glucose 147 H (74-99) mg/dL POC Glucose (mg/dL) 149 H (75-99) mg/dL Alkaline Phosphatase 146 H (38-126) U/L TSH (0.465-4.680) mIU/L Ur Leukocyte Esterase (Negative) Urine Bacteria (None) /hpf Urine Mucus (None) /hpf 07/26/19 07/26/19 07/27/19 Range/Units 13:08 21:10 01:08 MCV (80.0-100.0) fL MCH (25.0-35.0) pg RDW (11.5-15.5) % APTT 19.6 L (22.0-30.0) sec D-Dimer 0.63 H (<0.60) mg/L FEU Carbon Dioxide (22-30) mmol/L BUN (7-17) mg/dL Glucose (74-99) mg/dL POC Glucose (mg/dL) 127 H (75-99) mg/dL Alkaline Phosphatase (38-126) U/L TSH 5.920 H (0.465-4.680) mIU/L Ur Leukocyte Esterase (Negative) Urine Bacteria (None) /hpf Urine Mucus (None) /hpf 07/27/19 07/27/19 07/27/19 Range/Units 05:46 09:30 11:50 MCV (80.0-100.0) fL MCH (25.0-35.0) pg RDW (11.5-15.5) % APTT (22.0-30.0) sec D-Dimer (<0.60) mg/L FEU Carbon Dioxide (22-30) mmol/L BUN (7-17) mg/dL Glucose (74-99) mg/dL POC Glucose (mg/dL) 105 H 136 H (75-99) mg/dL Alkaline Phosphatase (38-126) U/L TSH (0.465-4.680) mIU/L Ur Leukocyte Esterase Small H (Negative) Urine Bacteria Few H (None) /hpf Urine Mucus Rare H (None) /hpf - Imaging and Cardiology Carotid duplex 07/27/19. Mild atheromatous plqaquing but no anterior circulation stenosis. Antegrade flow in both vertebral arteries. Abnormal thyroid appearance. EEG 07/27/19. normal awake/drowsy. Episode of RUE jerking and head bouncing captured and was non-epileptic. Assessment and Plan Assessment: Recurrent episodes of chest pressure, brain fog, eyes fluttering and speech disturbance- does not sounds like vascular/TIA. Sounds more like PNES, r/o other medical/hemodynamic etiologies. Plan: -Cannot obtain MRI Brain due to pacemaker -EEG captured an episode that was non-epileptic -Carotid duplex did not show significant vascular disease but does show an abnormal appearing thyroid. Thyroid U/S ordered. TSH elevated but normal free T4. Also send anti-thyroperoxidase Ab. Further medical work-up deferred to internal medicine/primary team -On aspirin and statin that is maxed with atorvastatin 80mg po qhs for cardio/cerebrovascular treatment -Since she states that her episodes start with chest pressure, given her significant cardiac history, would defer to primary team and/or cardiology to make sure no hemodynamic issues that may affect neurological functions -d/w patient in detail. All questions answered -No further inpatient neuro recs at this time. If her speech is all better and she has no further neuro c/o, she can be discharged from an acute neuro standpoint. d/w primary team. Please call with new ?. Thank you again for this consultation. Time with Patient: Less than 30 (Time spent in direct patient care, greater than 50% of which was spent in [id number] counseling and coordination of care: 25 minutes)
--- NOTE | 2019-07-27 13:27 | US ---
EXAMINATION TYPE: US thyroid st tissue head/neck DATE OF EXAM: 07/27/2019 COMPARISON: NONE CLINICAL HISTORY: abnormal thyroid appearance on carotid US. thyroid nodule visualized on recent wagoner tid ultrasound GLAND SIZE: Right Lobe: 5.5 x 2.5 x 2.3 cm Overall Parenchyma: heterogenous Left Lobe: 5.2 x 2.0 x 2.0 cm Overall Parenchyma: heterogeneous Isthmus Thickness: 0.7 cm NODULES RIGHT: # of nodules measured on right: 2 1. 0.8 X 0.4 x 0.7 cm mixed nodule at the mid pole with well-defined margins; . This nodule is wid er than tall and shows no intranodular vascularity. Prior size: no prior 2. 0.8 X 0.8 x 0.6 cm hypoechoic nodule at the posterior mid pole with poorly defined margins; . Th is nodule is taller than wide and shows no intranodular vascularity. Prior size: no prior LEFT: # of nodules measured on left: 0 ISTHMUS: # of nodules measured in the isthmus: 1 1. 0.9 X 0.5 x 0.9 cm hypoechoic nodule at the mid pole with well-defined margins; . This nodule i s wider than tall and shows no intranodular vascularity. Prior size: no prior Bilateral neck scanned, lymph nodes noted IMPRESSION: Thyromegaly with findings suggestive of thyroiditis. Multiple subcentimeter thyroid nodules as measur ed above.
[2019-07-27] MEDS ORDERED: ASPIRIN 325 MG TAB PO SCH (15:18)
--- NOTE | 2019-07-27 15:56 | P.HPIM ---
History of Present Illness H&P Date: 07/27/19 Chief Complaint: Feeding unwell History of presenting complaint: This is a pleasant 43-year-old patient of Dr. Causey. Chronic stable medical conditions include congestive heart failure EF 20% from hypertensive heart disease, AICD, COPD, diabetes mellitus type 2 on insulin, hypertension, possible seizure disorder, peripheral neuropathy secondary to diabetes and multiple toe amputations. Patient normally does not make it to any her for doctor's appointments because of financial reasons. Patient does have a bus pass. Patient was here in April of this year with a splenic infarct and also was found to have a cardiac thrombus for which she is on eliquis. She did have a CONY. Yesterday patient had an episode where she describes that she had a some chest discomfort for maybe about 10 minutes then her symptoms went to her head she felt a bit foggy finding it difficult to talk and felt weak all over. She's had these episodes in the past. She decided to come in for the same. Troponin was negative. Neurology was consulted. No further episode. By yesterday evening she felt back to her baseline. Review of systems: GEN.: Tired EYES: None HEENT: None NECK: None RESPIRATORY: None CARDIOVASCULAR: As above GASTROINTESTINAL: None GENITOURINARY: None MUSCULOSKELETAL: Occasional pains in his joints LYMPHATICS: None HEMATOLOGICAL: None PSYCHIATRY: None NEUROLOGICAL: As above Past medical history: COPD next smoker, cardiomyopathy EF less than 20% with a negative cardiac cath felt to be from underlying hypertensive heart disease, stroke, diabetes, hypertension, possible seizure disorder, peripheral neuropathy, some baseline memory and residual speech loss, cardiac thrombus Social history: Lives with her son. Smoked for many years has not smoked for about a year. Did medical marijuana in the past. No alcohol. Family history: DVT and kidney disease Physical examination: VITAL SIGNS: 97.8, 82, 18, 144/85, 99% room air GENERAL: BMI 42.7, sitting up, not in distress. EYES: Pupils equal. Conjunctiva normal. HEENT: External appearance of nose and ears normal, oral cavity grossly normal. NECK: JVD not raised; masses not palpable. HEART: First and second heart sounds are normal; no edema. LUNGS: Respiratory rate normal; decreased breath sounds. ABDOMEN: Soft, nontender, liver spleen not palpable, no masses palpable. PSYCH: Alert and oriented x3; mood and affect normal. NEUROLOGICAL: Cranial nerves grossly intact; no facial asymmetry, power and sensation grossly intact. Speech occasionally slurred which is her baseline. LYMPHATICS: No lymph nodes palpable in the axilla and neck INVESTIGATIONS, reviewed in the clinical context: White count 8.6 hemoglobin 12.8 potassium 4.2 126 creatinine 0.85 Troponin I less than 0.0122 EKG tracing shows ventricular paced rhythm Carotid Doppler-no surgical stenosis Chest x-ray film personally reviewed by me shows cardiomegaly Assessment: -Episode of disorientation feeling foggy and reverting back to normal. The to rule out seizure versus pseudoseizure. -Chronic congestive heart failure from systolic dysfunction EF 20% from hypertensive heart disease. 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 Plan: Home medications resumed. Neurology was consulted. Carotid Doppler and EEG was ordered. Accu-Cheks will be followed. EEG was ordered. Care was discussed with the patient. Questions were answered. Past Medical History Past Medical History: Asthma, Heart Failure, COPD, CVA/TIA, Diabetes Mellitus, Hypertension, Myocardial Infarction ([place]), Pneumonia, Seizure Disorder, Seizure Disorder Additional Past Medical History / Comment(s): uses a cane. Last seizure unknown Last Myocardial Infarction Date:: 06/2018 History of Any Multi-Drug Resistant Organisms: MRSA, VRE, VRE Date of last positivie culture/infection: 2016 MDRO Source:: bilat feet Past Surgical History: Adenoidectomy, AICD, Section, Heart Catheterization, Orthopedic Surgery, Pacemaker, Tonsillectomy Additional Past Surgical History / Comment(s): AICD - [employer]. has pacemaker defibrillator, right great toe amputation 04/2016, LT GREAT TOE then left foot partial amputation Past Anesthesia/Blood Transfusion Reactions: Postoperative Nausea & Vomiting (PONV) Type of Cardiac Device: Biventricular Pacemaker, Permanent Pacemaker, AICD Device Placement Date:: 2011 Past Psychological History: Bipolar Smoking Status: Former smoker Past Alcohol Use History: None Reported Past Drug Use History: None Reported - Past Family History Mother Family Medical History: Deep Vein Thrombosis (DVT) Additional Family Medical History / Comment(s): Some type of heart problems, kidney failure. Father History Unknown: Yes Family Medical History: Unable to Obtain Additional Family Medical History / Comment(s): Patient denies knowing any medical history on her father. Medications and Allergies Home Medications Medication Instructions Recorded Confirmed Type Gabapentin [Neurontin] 600 mg PO TID #90 tablet 01/09/19 07/26/19 Rx Furosemide [Lasix] 80 mg PO BID@0900,1600 #60 tab 03/16/19 07/26/19 Rx INSULIN ASPART (NovoLOG) [NovoLOG See Protocol SQ AC-TID 04/30/19 07/26/19 History (formulary)] Insulin Glargine [Lantus] 30 unit SQ DAILY 04/30/19 07/26/19 History Lisinopril [Zestril] 2.5 mg PO DAILY #30 tab 05/04/19 07/26/19 Rx Atorvastatin [Lipitor] 80 mg PO DAILY 07/26/19 07/26/19 History Carvedilol [Coreg] 6.25 mg PO BID 07/26/19 07/26/19 History Spironolactone [Aldactone] 25 mg PO BID 07/26/19 07/26/19 History Allergies Allergy/AdvReac Type Severity Reaction Status Date / Time Penicillins Allergy Rash/Hives Verified 07/26/19 13:47 ondansetron [From Zofran] AdvReac Nausea & Verified 07/26/19 13:47 Vomiting Physical Exam Vitals: Vital Signs Temp Pulse Pulse Resp BP BP Pulse Ox 07/27/19 12:00 97.9 F 74 16 102/58 07/27/19 08:00 97.2 F L 74 16 104/51 96 07/27/19 04:00 97.1 F L 72 16 116/70 97 07/27/19 00:00 97 F L 80 16 136/98 97 07/26/19 20:08 82 16 125/75 96 07/26/19 20:00 97.9 F 80 16 139/92 97 07/26/19 19:09 97.9 F 80 16 139/92 97 07/26/19 16:00 73 16 115/72 98 07/26/19 15:00 109/73 97 07/26/19 14:00 75 18 133/72 07/26/19 13:00 82 14 145/86 99 Intake and Output 07/26/19 07/27/1919 22:59 06:59 14:59 Intake Total 0 200 800 Balance 0 200 800 Intake: Intake, IV Titration 800 Amount Sodium Chloride 0.9% 1, 800 000 ml @ 100 mls/hr IV . Q10H [facility] Rx#:[id number] Oral 0 200 Other: Weight 123.6 kg Results CBC & Chem 7: 07/26/19 13:08 07/26/19 13:08 Labs: Abnormal Lab Results - Last 24 Hours (Table) 07/26/19 07/26/19 07/26/19 Range/Units 12:58 13:08 13:08 MCV 79.1 L (80.0-100.0) fL MCH 24.6 L (25.0-35.0) pg RDW 17.3 H (11.5-15.5) % APTT (22.0-30.0) sec D-Dimer (<0.60) mg/L FEU Carbon Dioxide 21 L (22-30) mmol/L BUN 26 H (7-17) mg/dL Glucose 147 H (74-99) mg/dL POC Glucose (mg/dL) 149 H (75-99) mg/dL Alkaline Phosphatase 146 H (38-126) U/L TSH (0.465-4.680) mIU/L Ur Leukocyte Esterase (Negative) Urine Bacteria (None) /hpf Urine Mucus (None) /hpf 07/26/19 07/26/19 07/27/19 Range/Units 13:08 21:10 01:08 MCV (80.0-100.0) fL MCH (25.0-35.0) pg RDW (11.5-15.5) % APTT 19.6 L (22.0-30.0) sec D-Dimer 0.63 H (<0.60) mg/L FEU Carbon Dioxide (22-30) mmol/L BUN (7-17) mg/dL Glucose (74-99) mg/dL POC Glucose (mg/dL) 127 H (75-99) mg/dL Alkaline Phosphatase (38-126) U/L TSH 5.920 H (0.465-4.680) mIU/L Ur Leukocyte Esterase (Negative) Urine Bacteria (None) /hpf Urine Mucus (None) /hpf 07/27/19 07/27/1919 Range/Units 05:46 09:30 11:50 MCV (80.0-100.0) fL MCH (25.0-35.0) pg RDW (11.5-15.5) % APTT (22.0-30.0) sec D-Dimer (<0.60) mg/L FEU Carbon Dioxide (22-30) mmol/L BUN (7-17) mg/dL Glucose (74-99) mg/dL POC Glucose (mg/dL) 105 H 136 H (75-99) mg/dL Alkaline Phosphatase (38-126) U/L TSH (0.465-4.680) mIU/L Ur Leukocyte Esterase Small H (Negative) Urine Bacteria Few H (None) /hpf Urine Mucus Rare H (None) /hpf Thrombosis Risk Factor Assmnt - Choose All That Apply Each Factor Represents 1 point: Age 41-60 years Other Risk Factors: No Other congenital or acquired thrombophilia - If yes, enter type in comment: No Thrombosis Risk Factor Assessment Total Risk Factor Score: 1 Thrombosis Risk Factor Assessment Level: Low Risk
[2019-07-27] MEDS ORDERED: APIXABAN 5 MG TAB PO SCH (16:30)
--- NOTE | 2019-07-27 16:34 | P.DS ---
Providers Date of admission: 07/26/19 15:17 Expected date of discharge: 07/27/19 Attending physician: Kimo Tejeda Consults: 07/26/19 15:17 Consult Physician Routine Consulting Provider: Max Pierce Consult Reason/Comments: expressiveAphasia Do you want consulting provider notified?: Yes [facility]: History of presenting complaint: This is a pleasant 43-year-old patient of Dr. Causey. Chronic stable medical conditions include congestive heart failure EF 20% from hypertensive heart disease, AICD, COPD, diabetes mellitus type 2 on insulin, hypertension, possible seizure disorder, peripheral neuropathy secondary to diabetes and multiple toe amputations. Patient normally does not make it to any her for doctor's appointments because of financial reasons. Patient does have a bus pass. Patient was here in April of this year with a splenic infarct and also was found to have a cardiac thrombus for which she is on eliquis. She did have a CONY. Yesterday patient had an episode where she describes that she had a some chest discomfort for maybe about 10 minutes then her symptoms went to her head she felt a bit foggy finding it difficult to talk and felt weak all over. She's had these episodes in the past. She decided to come in for the same. Troponin was negative. Neurology was consulted. No further episode. By yesterday evening she felt back to her baseline. Patient's carotid Dopplers unremarkable. electrocardiogram did not show any seizure activity. Discussed the results with Dr. Harris the neurologist. It was felt to be a nonepileptic seizure patient is feeling well cane to go home. It costs her $0.40 [address] bus to go to the doctor's office.. I did give her $1 that she can make her appointment Consultation: Dr. Harris from neurology Physical examination: VITAL SIGNS: 97.9, 74, 16, 102/58, 96% room air GENERAL: BMI 42.7, sitting up, comfortable. EYES: Pupils equal. Conjunctiva normal. HEENT: External appearance of nose and ears normal, oral cavity grossly normal. NECK: JVD not raised; masses not palpable. HEART: First and second heart sounds are normal; no edema. LUNGS: Respiratory rate normal; decreased breath sounds. ABDOMEN: Soft, nontender, liver spleen not palpable, no masses palpable. PSYCH: Alert and oriented x3; mood and affect normal. NEUROLOGICAL: Cranial nerves grossly intact; no facial asymmetry, power and sensation grossly intact. Speech occasionally slurred which is her baseline. LYMPHATICS: No lymph nodes palpable in the axilla and neck INVESTIGATIONS, reviewed in the clinical context: White count 8.6 hemoglobin 12.8 potassium 4.2 126 creatinine 0.85 Troponin I less than 0.0122 EKG tracing shows ventricular paced rhythm Carotid Doppler-no surgical stenosis Chest x-ray film personally reviewed by me shows cardiomegaly EEG negative for seizure activity Assessment: -Episode of disorientation feeling foggy and reverting back to normal. 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 Disposition: Home Patient Condition at Discharge: Stable Plan - Discharge Summary Discharge Rx Participant: No New Discharge Prescriptions: No Action Gabapentin [Neurontin] 600 mg PO TID #90 tablet Furosemide [Lasix] 80 mg PO BID@0900,1600 #60 tab INSULIN ASPART (NovoLOG) [NovoLOG (formulary)] See Protocol SQ AC-TID Insulin Glargine [Lantus] 30 unit SQ DAILY Lisinopril [Zestril] 2.5 mg PO DAILY #30 tab Spironolactone [Aldactone] 25 mg PO BID Carvedilol [Coreg] 6.25 mg PO BID Atorvastatin [Lipitor] 80 mg PO DAILY Apixaban [Eliquis] 5 mg PO BID Discharge Medication List Gabapentin [Neurontin] 600 mg PO TID #90 tablet 01/09/19 [Rx] Furosemide [Lasix] 80 mg PO BID@0900,1600 #60 tab 03/16/19 [Rx] INSULIN ASPART (NovoLOG) [NovoLOG (formulary)] See Protocol SQ AC-TID 04/30/19 [History] Insulin Glargine [Lantus] 30 unit SQ DAILY 04/30/19 [History] Lisinopril [Zestril] 2.5 mg PO DAILY #30 tab 05/04/19 [Rx] Atorvastatin [Lipitor] 80 mg PO DAILY 07/26/19 [History] Carvedilol [Coreg] 6.25 mg PO BID 07/26/19 [History] Spironolactone [Aldactone] 25 mg PO BID 07/26/19 [History] Apixaban [Eliquis] 5 mg PO BID 07/27/19 [History] Follow up Appointment(s)/Referral(s): Dylan Causey MD [Primary Care Provider] - 1-2 days (office will call you with an appointment) El Roldan MD [STAFF PHYSICIAN] - 1 Week (Office will call you with an appointment.)
[2019-07-27 17:24] VITALS: BP 111/68; PULSE 69; TEMP 97.8
[2019-07-27 17:26] LABS: Glucose,Whole Blood 118 mg/dL (75-99)
== END 2019-07-27 18:00 | disposition home or self-care (01) | DRG 880 ==
LOC: EC 12:38 → 3SCARD 15:17
PROVIDERS: ADMIT Hospitalist; ATTEND Hospitalist
DX: F44.5 Conversion disorder with seizures or convulsions (principal); I50.22 Chronic systolic (congestive) heart failure; I42.9 Cardiomyopathy, unspecified; R47.01 Aphasia; R07.9 Chest pain, unspecified; I11.0 Hypertensive heart disease with heart failure; E11.42 Type 2 diabetes mellitus with diabetic polyneuropathy; F31.9 Bipolar disorder, unspecified; J44.9 Chronic obstructive pulmonary disease, unspecified; I25.2 Old myocardial infarction; Z79.01 Long term (current) use of anticoagulants; Z79.4 Long term (current) use of insulin; Z79.899 Other long term (current) drug therapy; Z86.73 Personal history of transient ischemic attack (TIA), and cerebral infarction without residual deficits; Z87.891 Personal history of nicotine dependence; Z95.0 Presence of cardiac pacemaker; Z88.0 Allergy status to penicillin; Z88.8 Allergy status to other drugs, medicaments and biological substances; Z90.49 Acquired absence of other specified parts of digestive tract; Z90.89 Acquired absence of other organs; Z98.891 History of uterine scar from previous surgery; Z98.890 Other specified postprocedural states; Z87.01 Personal history of pneumonia (recurrent); Z82.49 Family history of ischemic heart disease and other diseases of the circulatory system; Z84.1 Family history of disorders of kidney and ureter; Z95.810 Presence of automatic (implantable) cardiac defibrillator; Z89.431 Acquired absence of right foot; Z89.432 Acquired absence of left foot
CPT/HCPCS: 36415; 70450; 71046; 76536; 80053; 81001; 82607; 83690; 83735; 83880; 84439; 84443; 84484; 85025; 85379; 85610; 85730; 86376; 87086; 93005; 93880; 95816; 96361; 96374; 99285

== ENCOUNTER 2019-08-20 11:13 | Inpatient (IN) | payer MEDICARE ==
[2019-08-20 20:13] VITALS: BMI 43.4
[2019-08-20 21:08] LABS: Glucose,Whole Blood 223 mg/dL (75-99)
[2019-08-20] MEDS: GABAPENTIN 300 MG CAP PO SCH (22:01)
[2019-08-20] MEDS: acetaZOLAMIDE 250 MG TAB PO SCH (22:01)
[2019-08-20] MEDS: CARVEDILOL 6.25 MG TAB PO SCH (22:01)
[2019-08-20] MEDS: APIXABAN 5 MG TAB PO SCH (22:01)
[2019-08-20] MEDS: ACETAMINOPHEN TAB 325 MG TAB PO PRN (22:01)
[2019-08-20] MEDS: SPIRONOLACTONE 25 MG TAB PO SCH (22:02)
[2019-08-20] MEDS: FUROSEMIDE 40 MG TAB PO SCH (22:02)
[2019-08-21 07:21] LABS: Glucose,Whole Blood 153 mg/dL (75-99)
[2019-08-21] MEDS: FUROSEMIDE 40 MG TAB PO SCH ×2 (08:00→20:51)
[2019-08-21] MEDS: ATORVASTATIN 80 MG TAB PO SCH (08:00)
[2019-08-21] MEDS: CARVEDILOL 6.25 MG TAB PO SCH ×2 (08:00→17:42)
[2019-08-21] MEDS: APIXABAN 5 MG TAB PO SCH ×2 (08:00→20:51)
[2019-08-21] MEDS: GABAPENTIN 300 MG CAP PO SCH ×3 (08:00→20:52)
[2019-08-21] MEDS: LISINOPRIL 2.5 MG TAB PO SCH (08:00)
[2019-08-21] MEDS: SPIRONOLACTONE 25 MG TAB PO SCH ×2 (08:00→20:52)
[2019-08-21] MEDS: acetaZOLAMIDE 250 MG TAB PO SCH ×2 (08:01→20:51)
[2019-08-21] MEDS: INSULIN ASPART (NovoLOG) 100 UNIT/ML VIAL SQ SCH ×4 (08:01→20:39)
[2019-08-21] MEDS: INSULIN DETEMIR (LEVEMIR) 100 UNIT/ML SYR SQ SCH (08:01)
[2019-08-21] MEDS: ACETAMINOPHEN TAB 325 MG TAB PO PRN ×3 (08:03→20:52)
--- NOTE | 2019-08-21 09:27 | P.CNNES ---
History of Present Illness Consult date: 08/21/19 Requesting physician: Kimo Tejeda Reason for Consult: headache, altered mental status Chief complaint: "I feel weird" History of Present Illness: This is a 43 LH female with CHF s/p AICD placement, HTN, DMII, COPD, PN and recurrent episodes of AMS/speech disturbance. I saw this patient back in 06/2019 for similar presentation. 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 She presented to [facility] c/o headache and feeling "weird" again. She had another CT Head there that was unrevealing, and was transferred to us for neurological consultation. Patient states that "my head isn't working right." She is slow to respond but is able to detail a medical history for me. Denies any recent head trauma. Denies diplopia, amaurosis, facial droop, vertigo, bulbar symptoms, focal numbness/weakness, tremors or bowel/bladder incontinence. Review of Systems I have performed a 14-point organ ROS with patient; pertinents are as per HPI. Past Medical History Past Medical History: Asthma, Heart Failure, COPD, CVA/TIA, Diabetes Mellitus, Hypertension, Myocardial Infarction ([place]), Pneumonia, Seizure Disorder, Seizure Disorder Additional Past Medical History / Comment(s): uses a cane. Last seizure unknown Last Myocardial Infarction Date:: 06/2018 History of Any Multi-Drug Resistant Organisms: MRSA, VRE, VRE Date of last positivie culture/infection: 2016 MDRO Source:: bilat feet Past Surgical History: Adenoidectomy, AICD, Section, Heart Catheterization, Orthopedic Surgery, Pacemaker, Tonsillectomy Additional Past Surgical History / Comment(s): AICD - [employer]. has pacemaker defibrillator, right all toe amputated 04/2016, LT GREAT TOE then left foot partial amputation Past Anesthesia/Blood Transfusion Reactions: Postoperative Nausea & Vomiting (PONV) Type of Cardiac Device: Biventricular Pacemaker, Permanent Pacemaker, AICD Device Placement Date:: 2011 Past Psychological History: Bipolar Additional Psychological History / Comment(s): Single. Lives in the family home with her 1 son, as well as her son-in-law and brother. There are 2 pet cats and watches daughters dogs, rabbit, 2 birds in the home. 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 No alcohol or IV drug use. Quit smoking in Oct 2017. Has medical marijuana card and smokes marijuana on a daily basis at bedtime for pain control.. Smoking Status: Former smoker Past Alcohol Use History: None Reported Additional Past Alcohol Use History / Comment(s): Patient was a smoker of a half a pack cigarettes per day for 32 years and quit in June 2018. Past Drug Use History: None Reported Additional Drug Use History / Comment(s): medical marijuana card not currently using. - Past Family History Mother Family Medical History: Deep Vein Thrombosis (DVT) Additional Family Medical History / Comment(s): Some type of heart problems, kidney failure. Father History Unknown: Yes Family Medical History: Unable to Obtain Additional Family Medical History / Comment(s): Patient denies knowing any medical history on her father. Medications and Allergies Home Medications Medication Instructions Recorded Confirmed Type Gabapentin [Neurontin] 600 mg PO TID #90 tablet 01/09/19 08/20/19 Rx INSULIN ASPART (NovoLOG) [NovoLOG See Protocol SQ AC-TID 04/30/19 08/20/19 History (formulary)] Insulin Glargine [Lantus] 40 unit SQ DAILY 04/30/19 08/20/19 History Lisinopril [Zestril] 2.5 mg PO DAILY #30 tab 05/04/19 08/20/19 Rx Atorvastatin [Lipitor] 80 mg PO DAILY 07/26/19 08/20/19 History Carvedilol [Coreg] 6.25 mg PO BID 07/26/19 08/20/19 History Spironolactone [Aldactone] 25 mg PO BID 07/26/19 08/20/19 History Apixaban [Eliquis] 5 mg PO BID 07/27/19 08/20/19 History Furosemide [Lasix] 80 mg PO BID 08/20/19 08/20/19 History acetaZOLAMIDE [Diamox Sequels] 500 mg PO BID 08/20/19 08/20/19 History Allergies Allergy/AdvReac Type Severity Reaction Status Date / Time Penicillins Allergy Rash/Hives Verified 08/20/19 19:24 ondansetron [From Zofran] AdvReac Nausea & Verified 08/20/19 19:24 Vomiting Physical Examination - Vital Signs Vital Signs: Vital Signs Temp Pulse Resp BP Pulse Ox 08/21/19 04:46 97.6 F 70 18 119/70 99 08/20/19 20:20 97.7 F 73 18 133/69 95 08/20/19 18:20 97.9 F 78 17 118/62 96 Intake and Output 08/20/19 08/21/19 08/21/19 22:59 06:59 14:59 Other: Voiding Method Toilet # Bowel Movements 0 Weight 126 kg Gen NAD Pleasant and cooperative HEENT NCAT Sclera without icterus O/P clear Neck Supple No carotid bruit Cor RRR no m/r/g Lungs CTAB Abd Soft NTND +BS Ext Warm to touch No edema Neuro MS A+Ox4 Knows she's at [facility] 07/2019 slow but fluent speech able to follow all commands CN PERRL VFF no APD EOMI no nystagmus or JUVENCIO No facial asymmetry [place]'s symmetric Hearing intact to normal voice bilaterally Speech not dysarthric Equal elevation of palate Tongue midline Sym shrug and SCM bilaterally Motor Normal bulk/tone No pronator or tremors Strength 5/5 sym throughout Sens Intact to LT x4 No neglect Coord No dysmetria on FTN bilaterally DTRs 2+/4 sym throughout Toes downgoing bilaterally No clonus at achilles Gait Deferred Results - Laboratory Findings Abnormal Lab Findings: Abnormal Labs 08/20/19 08/21/19 21:06 07:19 POC Glucose (mg/dL) 223 H 153 H - Diagnostic Findings Additional findings: CT Head wo cont 08/19/19. No ICH. Nil acute. I have reviewed neuroimages myself. Assessment and Plan Assessment: Recurrent episodes of AMS/speech disturbance- I do not see a primary n eurological explanation. We have already performed extensive work-up during her last hospitalization including CT Head (repeated this time at [facility]), EEG and carotid duplex. EEG did capture an non-epileptic event. Plan: Will confer with primary team to see about the next steps in her care. As I said, she has already had the neuro tests we can offer at this facility, and I do not see a primary neuro explanation for her symptoms other than an non- epileptic spell captured on EEG. Meanwhile, she remains on apixaban and atorvastatin for cardiac reasons. Further recs to follow. d/w patient and RN. All questions answered. Thank you for this consultation. Please call with ?. Time with Patient: Greater than 30 (Time spent in direct patient care, greater than 50% of which was spent in [id number] counseling and coordination of care: 70 minutes)
[2019-08-21 10:12] LABS: Anisocytosis Slight; Basophils # (A) 0.1 k/uL (0-0.2); Basophils % (A) 0 %; Eosinophils # (A) 0.1 k/uL (0-0.7); Eosinophils % (A) 1 %; HGB 11.8 gm/dL (11.4-16.0); Hypochromasia Slight; Lymphocytes # (A) 2.2 k/uL (1.0-4.8); Lymphocytes % (A) 15 %; MCH 25.3 pg (25.0-35.0); MCHC 31.1 g/dL (31.0-37.0); MCV 81.4 fL (80.0-100.0); Mean Platelet Volume 7.5; Monocytes # (A) 0.7 k/uL (0-1.0); Monocytes % (A) 5 %; Neutrophils % (A) 78 %; Platelet Count 267 k/uL (150-450); RBC 4.67 m/uL (3.80-5.40); RDW 16.9 % (11.5-15.5); WBC 14.2 k/uL (3.8-10.6)
[2019-08-21 10:23] LABS: Calcium 9.5 mg/dL (8.4-10.2)
[2019-08-21 11:36] LABS: Glucose,Whole Blood 138 mg/dL (75-99)
--- NOTE | 2019-08-21 16:33 | EEG ---
ELECTROENCEPHALOGRAM REPORT DATE OF TESTIN08/21/2019. CLINICAL PROBLEM: Recurrent episodes of altered mental status and speech disturbance. History of non-epileptic spell captured on previous EEG. EEG was requested by primary service to r/o epileptic activity. TYPE OF RECORDING: Bedside tracing using the 10-20 international electrode placement system. No sedation was given prior to the beginning of this recording. FINDINGS: The background of this tracing is seen with a symmetric alpha rhythm that attenuates on eye opening and returns upon eye closure. There are scattered EMG artifacts that correspond to patient's movements. Photic stimulation does not elicit a symmetric driving response. Hyperventilation is not performed in this recording. There is no definitive sleep architecture seen. There is no background asymmetry, ictal or interictal patterns appreciated. IMPRESSION: This is a normal awake electroencephalogram without background asymmetry or epileptiform discharges. Clinical correlation is advised. SONNY / LUCHO: [id number] / MTDD
[2019-08-21 17:17] LABS: Glucose,Whole Blood 107 mg/dL (75-99)
--- NOTE | 2019-08-21 17:23 | P.PN ---
Progress Note - Text Progress Note Date: 08/21/19 EEG is normal. No indication for AED therapy. There is no further neuro testing to be done at this facility. Only consideration would be long-term EEG monitoring, but first primary team will look into any other possible medical causes of her neuro symptoms as she does have a significant medical history with CHF, DMII, etc. No further inpatient neuro recs at this time. Will revisit patient prn. Please call with new ?.
[2019-08-21 20:00] LABS: Glucose,Whole Blood 130 mg/dL (75-99)
--- NOTE | 2019-08-22 00:32 | P.CONS ---
History of Present Illness - Reason for Consult Consult date: 08/21/19 This is a H&P - Chief Complaint Slow speech - History of Present Illness THIS is a history and physical Presenting complaint: Slow speech, lethargic History of presenting complaint: This is a pleasant 43-year-old patient of Dr. Causey. Chronic stable medical conditions include congestive heart failure EF 20% from hypertensive heart disease, AICD, COPD, diabetes mellitus type 2 on insulin, hypertension, possible seizure disorder, peripheral neuropathy secondary to diabetes and multiple toe amputations.. Patient was here in April of this year with a splenic infarct and also was found to have a cardiac thrombus for which she is on eliquis. She did have a CONY. . Patient now presents what she describes as feeling slow. She is tending to doze off while talking. Speech is slow. She also complains of feeling weird of the right side. Cannot really define if it's and weakness. This is quite different from patient's baseline. Does complain of some minimal chills. No fevers. No chest pain no palpitation. Denies any use of recreational drugs. Review of systems: GEN.: Tired EYES: None HEENT: None NECK: None RESPIRATORY: None CARDIOVASCULAR: As above GASTROINTESTINAL: None GENITOURINARY: None MUSCULOSKELETAL: Occasional pains in his joints LYMPHATICS: None HEMATOLOGICAL: None PSYCHIATRY: None NEUROLOGICAL: As above Past medical history: COPD next smoker, cardiomyopathy EF less than 20% with a negative cardiac cath felt to be from underlying hypertensive heart disease, stroke, diabetes, hypertension, possible seizure disorder, peripheral neuropathy, some baseline memory and residual speech loss, cardiac thrombus Social history: Lives with her son. Smoked for many years has not smoked for about a year. Did medical marijuana in the past. No alcohol. Family history: DVT and kidney disease Physical examination: VITAL SIGNS: 97.778, 17, 11 8/62, 96% room air GENERAL: BMI 43.5, laying in bed, lethargic EYES: Pupils equal. Conjunctiva normal. HEENT: External appearance of nose and ears normal, oral cavity grossly normal. NECK: JVD not raised; masses not palpable. HEART: First and second heart sounds are normal; no edema. LUNGS: Respiratory rate normal; decreased breath sounds. ABDOMEN: Soft, nontender, liver spleen not palpable, no masses palpable. PSYCH: Tired-appearing able to answer question doses off NEUROLOGICAL: Cranial nerves grossly intact; no facial asymmetry, power and sensation grossly intact. Speech is a bit slow. Decreased sensorium LYMPHATICS: No lymph nodes palpable in the axilla and neck INVESTIGATIONS, reviewed in the clinical context: White count 14.2 potassium 4 (31 crit 1.0 to Assessment: -This is a patient with multiple other medical problems now presenting with decreased sensorium. No focal symptoms. Less likely but he did rule out seizures. No clinical evidence of any infection at the present time -Chronic congestive heart failure from systolic dysfunction EF 20% from hypertensive heart disease. 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 Plan: Home medications are to be continued. Neuro checks in place. Discussed with Dr. Pierce from neurology. Doubt seizures with recent negative EGD was and second unexplained altered sensorium me to check out the same. If EEG is negative and patient's sensorium improved patient can be discharged. Past Medical History Past Medical History: Asthma, Heart Failure, COPD, CVA/TIA, Diabetes Mellitus, Hypertension, Myocardial Infarction ([place]), Pneumonia, Seizure Disorder, Seizure Disorder Additional Past Medical History / Comment(s): uses a cane. Last seizure unknown Last Myocardial Infarction Date:: 06/2018 History of Any Multi-Drug Resistant Organisms: MRSA, VRE, VRE Year Discovered:: 2017 MDRO Source:: bilat feet Past Surgical History: Adenoidectomy, AICD, Section, Heart Catheterization, Orthopedic Surgery, Pacemaker, Tonsillectomy Additional Past Surgical History / Comment(s): AICD - [employer]. has pacemaker defibrillator, right all toe amputated 04/2016, LT GREAT TOE then left foot partial amputation Past Anesthesia/Blood Transfusion Reactions: Postoperative Nausea & Vomiting (PONV) Type of Cardiac Device: Biventricular Pacemaker, Permanent Pacemaker, AICD Device Placement Date:: 2011 Past Psychological History: Bipolar Additional Psychological History / Comment(s): Single. Lives in the family home with her 1 son, as well as her son-in-law and brother. There are 2 pet cats and watches daughters dogs, rabbit, 2 birds in the home. 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 No alcohol or IV drug use. Quit smoking in Oct 2017. Has medical marijuana card and smokes marijuana on a daily basis at bedtime for pain control.. Smoking Status: Former smoker Past Alcohol Use History: None Reported Additional Past Alcohol Use History / Comment(s): Patient was a smoker of a half a pack cigarettes per day for 32 years and quit in June 2018. Past Drug Use History: None Reported Additional Drug Use History / Comment(s): medical marijuana card not currently using. - Past Family History Mother Family Medical History: Deep Vein Thrombosis (DVT) Additional Family Medical History / Comment(s): Some type of heart problems, kidney failure. Father History Unknown: Yes Family Medical History: Unable to Obtain Additional Family Medical History / Comment(s): Patient denies knowing any medical history on her father. Medications and Allergies Home Medications Medication Instructions Recorded Confirmed Type Gabapentin [Neurontin] 600 mg PO TID #90 tablet 01/09/19 08/20/19 Rx INSULIN ASPART (NovoLOG) [NovoLOG See Protocol SQ AC-TID 04/30/19 08/20/19 History (formulary)] Insulin Glargine [Lantus] 40 unit SQ DAILY 04/30/19 08/20/19 History Lisinopril [Zestril] 2.5 mg PO DAILY #30 tab 05/04/19 08/20/19 Rx Atorvastatin [Lipitor] 80 mg PO DAILY 07/26/19 08/20/19 History Carvedilol [Coreg] 6.25 mg PO BID 07/26/19 08/20/19 History Spironolactone [Aldactone] 25 mg PO BID 07/26/19 08/20/19 History Apixaban [Eliquis] 5 mg PO BID 07/27/19 08/20/19 History Furosemide [Lasix] 80 mg PO BID 08/20/19 08/20/19 History acetaZOLAMIDE [Diamox Sequels] 500 mg PO BID 08/20/19 08/20/19 History Allergies Allergy/AdvReac Type Severity Reaction Status Date / Time Penicillins Allergy Rash/Hives Verified 08/20/19 19:24 ondansetron [From Zofran] AdvReac Nausea & Verified 08/20/19 19:24 Vomiting Physical Exam Vitals: Vital Signs Temp Pulse Resp BP Pulse Ox 08/21/19 04:46 97.6 F 70 18 119/70 99 08/20/19 20:20 97.7 F 73 18 133/69 95 08/20/19 18:20 97.9 F 78 17 118/62 96 Intake and Output 08/20/19 08/21/19 08/21/19 22:59 06:59 14:59 Other: Voiding Method Toilet # Bowel Movements 0 Weight 126 kg Results CBC & Chem 7: 08/21/19 09:53 08/21/19 09:53 Labs: Abnormal Lab Results - Last 24 Hours (Table) 08/20/19 08/21/19 Range/Units 21:06 07:19 POC Glucose (mg/dL) 223 H 153 H (75-99) mg/dL
[2019-08-22] MEDS: ACETAMINOPHEN TAB 325 MG TAB PO PRN ×2 (04:26→11:25)
--- NOTE | 2019-08-22 05:22 | HP ---
HISTORY AND PHYSICAL DATE OF SERVICE: 08/21/2019 My consult note dictated on 08/21/2019 is actually a history and physical for date of service 08/21/2019. MMODL / IJN: [id number] /
[2019-08-22 07:13] LABS: Glucose,Whole Blood 117 mg/dL (75-99)
[2019-08-22] MEDS: INSULIN ASPART (NovoLOG) 100 UNIT/ML VIAL SQ SCH ×3 (07:41→17:22)
[2019-08-22 08:43] LABS: Anisocytosis Slight; Basophils # (A) 0.2 k/uL (0-0.2); Basophils % (A) 1 %; Eosinophils # (A) 0.3 k/uL (0-0.7); Eosinophils % (A) 3 %; HCT 40.9 % (34.0-46.0); HGB 13.2 gm/dL (11.4-16.0); Hypochromasia Moderate; Lymphocytes # (A) 2.1 k/uL (1.0-4.8); Lymphocytes % (A) 19 %; MCH 26.4 pg (25.0-35.0); MCHC 32.3 g/dL (31.0-37.0); MCV 81.8 fL (80.0-100.0); Mean Platelet Volume 7.7; Monocytes # (A) 0.6 k/uL (0-1.0); Monocytes % (A) 5 %; Neutrophils # (A) 7.7 k/uL (1.3-7.7); Neutrophils % (A) 70 %; Platelet Count 274 k/uL (150-450); RDW 17.5 % (11.5-15.5); WBC 11.1 k/uL (3.8-10.6)
[2019-08-22 08:53] LABS: Calcium 9.8 mg/dL (8.4-10.2)
[2019-08-22] MEDS: INSULIN DETEMIR (LEVEMIR) 100 UNIT/ML SYR SQ SCH (08:55)
[2019-08-22] MEDS: GABAPENTIN 300 MG CAP PO SCH ×2 (08:56→17:23)
[2019-08-22] MEDS: FUROSEMIDE 40 MG TAB PO SCH (08:56)
[2019-08-22] MEDS: ATORVASTATIN 80 MG TAB PO SCH (08:56)
[2019-08-22] MEDS: APIXABAN 5 MG TAB PO SCH (08:56)
[2019-08-22] MEDS: CARVEDILOL 6.25 MG TAB PO SCH ×2 (08:57→17:23)
[2019-08-22] MEDS: acetaZOLAMIDE 250 MG TAB PO SCH (08:57)
[2019-08-22] MEDS: SPIRONOLACTONE 25 MG TAB PO SCH (08:57)
[2019-08-22] MEDS: LISINOPRIL 2.5 MG TAB PO SCH (08:57)
--- NOTE | 2019-08-22 09:04 | XR ---
EXAMINATION TYPE: XR chest 2V DATE OF EXAM: 08/22/2019 COMPARISON: 07/26/2019 TECHNIQUE: PA and lateral views submitted. HISTORY: Cough FINDINGS: The lungs are clear and there is no pneumothorax, pleural effusion, or focal pneumonia. Cardiac perlita ce is stable. No overt failure. Heart is enlarged. IMPRESSION: 1. No acute process.
[2019-08-22 11:27] LABS: Glucose,Whole Blood 163 mg/dL (75-99)
[2019-08-22 14:35] LABS: Appearance,Urine Clear (Clear); Bacteria,Urine Rare /hpf; Bilirubin,Urine Negative (Negative); Blood,Urine Small (Negative); Color,Urine Yellow; Glucose,Urine (UA) Negative (Negative); Ketones,Urine Negative (Negative); Leukocyte Esterase,Urine Large (Negative); Nitrite,Urine Negative (Negative); PH, Urine 6.5 (5.0-8.0); Protein,Urine Negative (Negative); RBC,Urine 3 /hpf (0-5); Specific Gravity,Urine 1.011 (1.001-1.035); Squamous Epithelial Cell,Urine 3 /hpf (0-4)
[2019-08-22 17:19] LABS: Glucose,Whole Blood 94 mg/dL (75-99)
[2019-08-22 19:31] VITALS: BP 99/55; PULSE 66; RESP 18; TEMP 97.9
--- NOTE | 2019-08-22 22:41 | P.DS ---
Providers Date of admission: 08/20/19 18:16 Expected date of discharge: 08/22/19 Attending physician: Kimo Tejeda Consults: 08/20/19 21:38 Consult Physician Routine Consulting Provider: Max Pierce Consult Reason/Comments: ams; headaches Do you want consulting provider notified?: Yes Primary care physician: Stated None Hospital Course: Presenting complaint: Slow speech, lethargic Hospital course: This is a pleasant 43-year-old patient of Dr. Causey. Chronic stable medical conditions include congestive heart failure EF 20% from hypertensive heart disease, AICD, COPD, diabetes mellitus type 2 on insulin, hypertension, possible seizure disorder, peripheral neuropathy secondary to diabetes and multiple toe amputations.. Patient was here in April of this year with a splenic infarct and also was found to have a cardiac thrombus for which she is on eliquis. She did have a CONY. . Patient now presents what she describes as feeling slow. She is tending to doze off while talking. Speech is slow. She also complains of feeling weird of the right side. Cannot really define if it's and weakness. This is quite different from patient's baseline. Does complain of some minimal chills. No fevers. No chest pain no palpitation. Denies any use of recreational drugs. patient did have EEG. Negative for seizure. Patient's sensorium was to off. Different than her baseline. I did not have a metabolic cause for the same. Talk to the patient. that I cannot cannot rule out seizure activity4 showed at that patient will need continuous EEG monitoring. I discussed with neurology Dr. Harris yesterday. Spoke to the transfer team at [facility] including with the neurologist and patient was accepted to the neurology service. Earlier the day was informed that patient went was being tried to be transferred to [facility] there is no physician available to accept the patient. total time spent today was about 45 minutes Consultation: Dr. Pierce from neurology Physical examination: VITAL SIGNS: r97.7, 60, 16, 108/57, 99% room air GENERAL: BMI 43.5, laying in bed, lethargic EYES: Pupils equal. Conjunctiva normal. HEENT: External appearance of nose and ears normal, oral cavity grossly normal. NECK: JVD not raised; masses not palpable. HEART: First and second heart sounds are normal; no edema. LUNGS: Respiratory rate normal; decreased breath sounds. ABDOMEN: Soft, nontender, liver spleen not palpable, no masses palpable. PSYCH: Tired-appearing able to answer question doses off NEUROLOGICAL: Cranial nerves grossly intact; no facial asymmetry, power and sensation grossly intact. Speech is a bit slow. Decreased sensorium INVESTIGATIONS, reviewed in the clinical context: White count 11.1 hemoglobin 13.2 bun 38 creatinine 1.24 EEG negative for seizure activity Admission labs White count 14.2 potassium 4 (31 crit 1.0 to discharge diagnosis: -altered sensorium/metabolic encephalopathy cannot rule out underlying seizure activity.e -Chronic congestive heart failure from systolic dysfunction EF 20% from hypertensive heart disease. 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 disposition: Neurology service for high level of care at [facility] Patient Condition at Discharge: Undetermined Plan - Discharge Summary Discharge Rx Participant: No New Discharge Prescriptions: Continue Gabapentin [Neurontin] 600 mg PO TID #90 tablet INSULIN ASPART (NovoLOG) [NovoLOG (formulary)] See Protocol SQ AC-TID Insulin Glargine [Lantus] 40 unit SQ DAILY Lisinopril [Zestril] 2.5 mg PO DAILY #30 tab Spironolactone [Aldactone] 25 mg PO BID Carvedilol [Coreg] 6.25 mg PO BID Atorvastatin [Lipitor] 80 mg PO DAILY Apixaban [Eliquis] 5 mg PO BID Furosemide [Lasix] 80 mg PO BID acetaZOLAMIDE [Diamox Sequels] 500 mg PO BID Discharge Medication List Gabapentin [Neurontin] 600 mg PO TID #90 tablet 01/09/19 [Rx] INSULIN ASPART (NovoLOG) [NovoLOG (formulary)] See Protocol SQ AC-TID 04/30/19 [History] Insulin Glargine [Lantus] 40 unit SQ DAILY 04/30/19 [History] Lisinopril [Zestril] 2.5 mg PO DAILY #30 tab 05/04/19 [Rx] Atorvastatin [Lipitor] 80 mg PO DAILY 07/26/19 [History] Carvedilol [Coreg] 6.25 mg PO BID 07/26/19 [History] Spironolactone [Aldactone] 25 mg PO BID 07/26/19 [History] Apixaban [Eliquis] 5 mg PO BID 07/27/19 [History] Furosemide [Lasix] 80 mg PO BID 08/20/19 [History] acetaZOLAMIDE [Diamox Sequels] 500 mg PO BID 08/20/19 [History] Follow up Appointment(s)/Referral(s): [facility], [NON-STAFF] - 1 Week Discharge Disposition: OTHER INSTITUTION NOT DEFINED
== END 2019-08-22 19:33 | disposition short-term general hospital (02) | DRG 71 ==
LOC: 3NMEDONC 18:16
PROVIDERS: ADMIT Hospitalist; ATTEND Hospitalist
DX: G93.41 Metabolic encephalopathy (principal); I42.9 Cardiomyopathy, unspecified; I50.22 Chronic systolic (congestive) heart failure; E11.42 Type 2 diabetes mellitus with diabetic polyneuropathy; I11.0 Hypertensive heart disease with heart failure; I51.3 Intracardiac thrombosis, not elsewhere classified; D73.5 Infarction of spleen; J44.9 Chronic obstructive pulmonary disease, unspecified; G40.909 Epilepsy, unspecified, not intractable, without status epilepticus; F31.9 Bipolar disorder, unspecified; I25.2 Old myocardial infarction; Z79.01 Long term (current) use of anticoagulants; Z79.4 Long term (current) use of insulin; Z79.899 Other long term (current) drug therapy; Z87.891 Personal history of nicotine dependence; Z89.422 Acquired absence of other left toe(s); Z89.421 Acquired absence of other right toe(s); Z86.73 Personal history of transient ischemic attack (TIA), and cerebral infarction without residual deficits; Z95.810 Presence of automatic (implantable) cardiac defibrillator; Z87.01 Personal history of pneumonia (recurrent); Z86.14 Personal history of Methicillin resistant Staphylococcus aureus infection; Z86.19 Personal history of other infectious and parasitic diseases; Z98.891 History of uterine scar from previous surgery; Z98.890 Other specified postprocedural states; Z88.0 Allergy status to penicillin; Z88.8 Allergy status to other drugs, medicaments and biological substances; Z83.49 Family history of other endocrine, nutritional and metabolic diseases; Z84.1 Family history of disorders of kidney and ureter
CPT/HCPCS: 71046; 80048; 81001; 85025; 95816

== ENCOUNTER 2019-09-13 16:38 | Inpatient (IN) | payer MEDICARE ==
[2019-09-13] MEDS ORDERED: SODIUM CHLORIDE 0.9% 1,000 ML IV STA (17:13)
--- NOTE | 2019-09-13 17:17 | ED ---
Recheck HPI - General Chief Complaint: Recheck/Abnormal Lab/Rx Stated Complaint: weakness arm pain Time Seen by Provider: 09/13/19 17:00 Source: patient, RN notes reviewed, old records reviewed Mode of arrival: wheelchair Limitations: no limitations - History of Present Illness Initial Comments: This is a 43-year-old female the ER for evaluation. Patient presents today for evaluation regards to altered mental status feeling tired feeling weak. Unable to keep eyes open. Denies drugs or alcohol abuse. She did start a new depression, anxiety medication about a week ago, Lexapro. She has not had any symptoms prior to this. She was in the hospital a few months ago for similar complaints. Currently she has mild headache left arm pain left-sided chest pain. Overall fatigue and slowly speech started about an hour ago, she is able to articulate and is able to understand, also able to express the right thought an idea just slower than usual per her significant other who is at bedside. MD Complaint: other (Patient does have slowed speech, feeling overall weak, chest pain and headache) -: hour(s) (1) Returns Today for: other (Patient states about an hour ago she started to feel very fatigued and weak) Symptoms Since Prior Visit: no new symptoms Context: other (Not feeling well) Associated Symptoms: malaise - Related Data Home Medications Medication Instructions Recorded Confirmed INSULIN ASPART (NovoLOG) [NovoLOG See Protocol SQ AC-TID 04/30/19 09/13/19 (formulary)] Insulin Glargine [Lantus] 40 unit SQ DAILY 04/30/19 09/13/19 Atorvastatin [Lipitor] 80 mg PO DAILY 07/26/19 09/13/19 Carvedilol [Coreg] 6.25 mg PO BID 07/26/19 09/13/19 Spironolactone [Aldactone] 25 mg PO BID 07/26/19 09/13/19 Apixaban [Eliquis] 5 mg PO BID 07/27/19 09/13/19 Furosemide [Lasix] 80 mg PO BID 08/20/19 09/13/19 acetaZOLAMIDE [Diamox Sequels] 500 mg PO BID 08/20/19 09/13/19 Sertraline [Zoloft] 25 mg PO DAILY 09/13/19 09/13/19 Previous Rx's Medication Instructions Recorded Gabapentin [Neurontin] 600 mg PO TID #90 tablet 01/09/19 Lisinopril [Zestril] 2.5 mg PO DAILY #30 tab 05/04/19 Allergies Allergy/AdvReac Type Severity Reaction Status Date / Time Penicillins Allergy Rash/Hives Verified 09/13/19 17:54 ondansetron [From Zofran] AdvReac Nausea & Verified 09/13/19 17:54 Vomiting Review of Systems ROS Statement: Those systems with pertinent positive or pertinent negative responses have been documented in the HPI. ROS Other: All systems not noted in ROS Statement are negative. Past Medical History Past Medical History: Asthma, Heart Failure, COPD, CVA/TIA, Diabetes Mellitus, Hypertension, Myocardial Infarction ([place]), Pneumonia, Seizure Disorder, Seizure Disorder Additional Past Medical History / Comment(s): uses a cane. Last seizure unknown Last Myocardial Infarction Date:: 06/2018 History of Any Multi-Drug Resistant Organisms: MRSA, VRE, VRE Date of last positivie culture/infection: 2016 MDRO Source:: bilat feet Past Surgical History: Adenoidectomy, AICD, Section, Heart Catheteri zation, Orthopedic Surgery, Pacemaker, Tonsillectomy Additional Past Surgical History / Comment(s): AICD - [employer]. has pacemaker defibrillator, right all toe amputated 04/2016, LT GREAT TOE then left foot partial amputation Past Anesthesia/Blood Transfusion Reactions: Postoperative Nausea & Vomiting (PONV) Type of Cardiac Device: Biventricular Pacemaker, Permanent Pacemaker, AICD Device Placement Date:: 2011 Past Psychological History: Bipolar Smoking Status: Former smoker Past Alcohol Use History: None Reported Past Drug Use History: None Reported - Past Family History Mother Family Medical History: Deep Vein Thrombosis (DVT) Additional Family Medical History / Comment(s): Some type of heart problems, kidney failure. Father History Unknown: Yes Family Medical History: Unable to Obtain Additional Family Medical History / Comment(s): Patient denies knowing any medical history on her father. General Exam Limitations: altered mental status General appearance: alert, in no apparent distress Head exam: Present: atraumatic, normocephalic, normal inspection Eye exam: Present: normal appearance, PERRL, EOMI. Absent: scleral icterus, conjunctival injection, periorbital swelling ENT exam: Present: normal exam, mucous membranes moist Neck exam: Present: normal inspection. Absent: tenderness, meningismus, lymphadenopathy Respiratory exam: Present: normal lung sounds bilaterally. Absent: respiratory distress, wheezes, rales, rhonchi, stridor Cardiovascular Exam: Present: regular rate, normal rhythm, normal heart sounds. Absent: systolic murmur, diastolic murmur, rubs, gallop, clicks GI/Abdominal exam: Present: soft, normal bowel sounds. Absent: distended, tenderness, guarding, rebound, rigid Extremities exam: Present: normal inspection, full ROM, normal capillary refill. Absent: tenderness, pedal edema, joint swelling, calf tenderness Back exam: Present: normal inspection Neurological exam: Present: alert, oriented X3, CN II-XII intact Psychiatric exam: Present: normal affect, normal mood Skin exam: Present: warm, dry, intact, normal color. Absent: rash Course Vital Signs 09/13/19 09/13/19 16:42 18:24 Temperature 97.9 F Pulse Rate 86 78 Respiratory 18 16 Rate Blood Pressure 118/86 143/86 O2 Sat by Pulse 96 97 Oximetry - Reevaluation(s) Reevaluation #1: 09/13/19 17:17 Medical record prior oscillations clinic CT brain have been reviewed Reevaluation #2: 09/13/19 19:30 No current clinical improvement - Consultations Consultation #1: spoke w Dr. Tejeda for admission is okay for admission Medical Decision Making - Medical Decision Making 43 female the ER for evaluation coming in for evaluation of weakness lethargy and mental state slurred speech but slow speech, started hour prior to arrival nonfocal neurological. Patient be admitted for continued neurology evaluation she has multiple admissions for similar complaint - Lab Data Result diagrams: 09/13/19 17:23 09/13/19 17:23 Lab Results 09/13/19 09/13/19 09/13/19 Range/Units 17:23 17:23 17:23 WBC 8.7 (3.8-10.6) k/uL RBC 4.31 (3.80-5.40) m/uL Hgb 11.4 (11.4-16.0) gm/dL Hct 35.0 (34.0-46.0) % MCV 81.2 (80.0-100.0) fL MCH 26.4 (25.0-35.0) pg MCHC 32.6 (31.0-37.0) g/dL RDW 15.2 (11.5-15.5) % Plt Count 322 (150-450) k/uL Neutrophils % 70 % Lymphocytes % 17 % Monocytes % 5 % Eosinophils % 4 % Basophils % 1 % Neutrophils # 6.1 (1.3-7.7) k/uL Lymphocytes # 1.5 (1.0-4.8) k/uL Monocytes # 0.5 (0-1.0) k/uL Eosinophils # 0.3 (0-0.7) k/uL Basophils # 0.1 (0-0.2) k/uL Hypochromasia Slight PT 9.5 (9.0-12.0) sec INR 0.9 (<1.2) APTT 22.9 (22.0-30.0) sec Sodium 138 (137-145) mmol/L Potassium 4.8 (3.5-5.1) mmol/L Chloride 100 (98-107) mmol/L Carbon Dioxide 28 (22-30) mmol/L Anion Gap 10 mmol/L BUN 21 H (7-17) mg/dL Creatinine 0.89 (0.52-1.04) mg/dL Est GFR (CKD-EPI)AfAm >90 (>60 ml/min/1.73 sqM) Est GFR (CKD-EPI)NonAf 79 (>60 ml/min/1.73 sqM) Glucose 205 H (74-99) mg/dL Calcium 9.2 (8.4-10.2) mg/dL Total Bilirubin 0.3 (0.2-1.3) mg/dL AST 24 (14-36) U/L ALT 18 (9-52) U/L Alkaline Phosphatase 150 H (38-126) U/L Creatine Kinase 58 (30-135) U/L Troponin I (0.000-0.034) ng/mL Total Protein 7.5 (6.3-8.2) g/dL Albumin 4.1 (3.5-5.0) g/dL 09/13/19 Range/Units 17:23 WBC (3.8-10.6) k/uL RBC (3.80-5.40) m/uL Hgb (11.4-16.0) gm/dL Hct (34.0-46.0) % MCV (80.0-100.0) fL MCH (25.0-35.0) pg MCHC (31.0-37.0) g/dL RDW (11.5-15.5) % Plt Count (150-450) k/uL Neutrophils % % Lymphocytes % % Monocytes % % Eosinophils % % Basophils % % Neutrophils # (1.3-7.7) k/uL Lymphocytes # (1.0-4.8) k/uL Monocytes # (0-1.0) k/uL Eosinophils # (0-0.7) k/uL Basophils # (0-0.2) k/uL Hypochromasia PT (9.0-12.0) sec INR (<1.2) APTT (22.0-30.0) sec Sodium (137-145) mmol/L Potassium (3.5-5.1) mmol/L Chloride (98-107) mmol/L Carbon Dioxide (22-30) mmol/L Anion Gap mmol/L BUN (7-17) mg/dL Creatinine (0.52-1.04) mg/dL Est GFR (CKD-EPI)AfAm (>60 ml/min/1.73 sqM) Est GFR (CKD-EPI)NonAf (>60 ml/min/1.73 sqM) Glucose (74-99) mg/dL Calcium (8.4-10.2) mg/dL Total Bilirubin (0.2-1.3) mg/dL AST (14-36) U/L ALT (9-52) U/L Alkaline Phosphatase (38-126) U/L Creatine Kinase (30-135) U/L Troponin I <0.012 (0.000-0.034) ng/mL Total Protein (6.3-8.2) g/dL Albumin (3.5-5.0) g/dL - EKG Data -: EKG Interpreted by Me (EKG shows paced rhythm rate of 83, SD 156, QRS 150, QTc 564) - Radiology Data Radiology results: report reviewed (CT shows old stroke CT negative for acute disease), image reviewed Disposition Clinical Impression: Weakness, Altered mental state Disposition: ADMITTED IP TO THIS [facility] Condition: Fair Is patient prescribed a controlled substance at d/c from ED?: No Referrals: Dylan Causey MD [Primary Care Provider] - 1-2 days
[2019-09-13 17:43] LABS: INR 0.9 (<1.2); Partial Thromboplastin Time 22.9 sec (22.0-30.0); Prothrombin Time 9.5 sec (9.0-12.0)
[2019-09-13 17:46] LABS: Basophils # (A) 0.1 k/uL (0-0.2); Basophils % (A) 1 %; Eosinophils # (A) 0.3 k/uL (0-0.7); Eosinophils % (A) 4 %; HGB 11.4 gm/dL (11.4-16.0); Hypochromasia Slight; Lymphocytes # (A) 1.5 k/uL (1.0-4.8); Lymphocytes % (A) 17 %; MCH 26.4 pg (25.0-35.0); MCHC 32.6 g/dL (31.0-37.0); MCV 81.2 fL (80.0-100.0); Mean Platelet Volume 6.6; Monocytes # (A) 0.5 k/uL (0-1.0); Monocytes % (A) 5 %; Neutrophils # (A) 6.1 k/uL (1.3-7.7); Neutrophils % (A) 70 %; Platelet Count 322 k/uL (150-450); RBC 4.31 m/uL (3.80-5.40); RDW 15.2 % (11.5-15.5); WBC 8.7 k/uL (3.8-10.6)
[2019-09-13 17:53] LABS: ALT 18 U/L (9-52); AST 24 U/L (14-36); African American GFR (CKD) >90 (>60 ml/min/1.73 sqM); Albumin 4.1 g/dL (3.5-5.0); Alkaline Phosphatase 150 U/L (38-126); Anion Gap 10 mmol/L; Blood Urea Nitrogen 21 mg/dL (7-17); Calcium 9.2 mg/dL (8.4-10.2); Carbon Dioxide 28 mmol/L (22-30); Chloride 100 mmol/L (98-107); Creatine Kinase 58 U/L (30-135); Glucose 205 mg/dL (74-99); Potassium 4.8 mmol/L (3.5-5.1); Sodium 138 mmol/L (137-145); Total Bilirubin 0.3 mg/dL (0.2-1.3); Total Protein 7.5 g/dL (6.3-8.2)
--- NOTE | 2019-09-13 17:55 | CT ---
EXAMINATION TYPE: CT brain wo con for TPA DATE OF EXAM: 09/13/2019 COMPARISON: 07/26/2019 HISTORY: Confusion CT DLP: 1087.4 mGycm Automated exposure control for dose reduction was used. FINDINGS: Ventricles have normal size. There is no mass effect nor midline shift. There is no sign of intracran ial hemorrhage. There is 8 mm lacunar infarct in the left side thalamus. Calvarium is intact. IMPRESSION: Old left side thalamic lacunar infarct. No acute abnormality. No change.
[2019-09-13] MEDS ORDERED: ASPIRIN 325 MG TAB PO STA (19:24)
[2019-09-13] MEDS ORDERED: ACETAMINOPHEN TAB 325 MG TAB PO STA (21:39)
[2019-09-14] MEDS: SODIUM CHLORIDE 0.9% 1,000 ML IV SCH ×3 (02:06→11:56)
[2019-09-14 03:51] LABS: Cholesterol 188 mg/dL (<200); HDL Cholesterol 45 mg/dL (40-60); LDL Cholesterol,Calculated 113 mg/dL (0-99); Triglycerides 150 mg/dL (<150)
[2019-09-14 08:02] VITALS: BMI 39.5
[2019-09-14] MEDS: GABAPENTIN 300 MG CAP PO SCH ×3 (10:47→21:32)
[2019-09-14] MEDS: LISINOPRIL 2.5 MG TAB PO SCH (10:47)
[2019-09-14] MEDS: ACETAMINOPHEN TAB 325 MG TAB PO PRN ×3 (10:47→21:34)
[2019-09-14] MEDS: ATORVASTATIN 80 MG TAB PO SCH (10:47)
[2019-09-14] MEDS: FUROSEMIDE 80 MG TAB PO SCH ×2 (10:47→20:29)
[2019-09-14] MEDS: APIXABAN 5 MG TAB PO SCH ×2 (10:47→20:29)
[2019-09-14] MEDS: CARVEDILOL 6.25 MG TAB PO SCH ×2 (10:48→15:28)
[2019-09-14] MEDS: SPIRONOLACTONE 25 MG TAB PO SCH ×2 (10:48→20:29)
[2019-09-14] MEDS: SERTRALINE 25 MG TAB PO SCH (10:48)
[2019-09-14 11:26] LABS: African American GFR (CKD) >90 (>60 ml/min/1.73 sqM); Anion Gap 7 mmol/L; Blood Urea Nitrogen 18 mg/dL (7-17); Carbon Dioxide 26 mmol/L (22-30); Chloride 107 mmol/L (98-107); Glucose 133 mg/dL (74-99); Magnesium 1.9 mg/dL (1.6-2.3); Sodium 140 mmol/L (137-145)
[2019-09-14 11:34] LABS: Basophils # (A) 0.1 k/uL (0-0.2); Basophils % (A) 1 %; Eosinophils # (A) 0.4 k/uL (0-0.7); Eosinophils % (A) 5 %; HCT 37.8 % (34.0-46.0); HGB 11.7 gm/dL (11.4-16.0); Hypochromasia Slight; Lymphocytes # (A) 1.1 k/uL (1.0-4.8); Lymphocytes % (A) 15 %; MCH 25.8 pg (25.0-35.0); MCHC 30.9 g/dL (31.0-37.0); MCV 83.4 fL (80.0-100.0); Monocytes # (A) 0.4 k/uL (0-1.0); Monocytes % (A) 5 %; Neutrophils # (A) 5.4 k/uL (1.3-7.7); Neutrophils % (A) 73 %; Platelet Count 277 k/uL (150-450); RBC 4.53 m/uL (3.80-5.40); RDW 15.6 % (11.5-15.5); WBC 7.5 k/uL (3.8-10.6)
[2019-09-14 11:41] LABS: Glucose,Whole Blood 118 mg/dL (75-99)
[2019-09-14] MEDS: INSULIN ASPART (NovoLOG) 100 UNIT/ML VIAL SQ SCH ×2 (11:56→17:19)
[2019-09-14] MEDS: INSULIN DETEMIR (LEVEMIR) 100 UNIT/ML SYR SQ SCH (11:57)
--- NOTE | 2019-09-14 13:16 | P.CNNES ---
History of Present Illness Consult date: 09/14/19 Requesting physician: Kimo Tejeda Reason for Consult: Altered mental status History of Present Illness: Patient is a 43-year-old female, who has been admitted to the hospital multiple times in the recent past for vague symptoms of unclear etiology. These episodes has been going on off and on for last 3-4 years. Patient states that she gets these "weird sensations in her head", in which she mumbled tremble, gets foggy head, feels like "blockage in her head". Patient states her speech and motor skills goes "haywire". The symptoms may last for a few minutes but sometimes the after effects can last for few days. She describes these "aftereffects" as difficulty with walking, talking, forgetful. She gets pressure in the head. She forgets what she is doing. She had one episode yesterday. Yesterday she was having pain in his chest and arm. She thought she was having a heart attack. She states when these episodes happen, sometimes she thinks like a child. This is her third hospitalization since . Her balance gets off with these episodes and she cannot function for a while. Patient has been seen by Dr. Pierce couple times in the recent past as well as other neurologist Dr. Callahan. Patient had multiple EEGs which were normal. One of the EEG captured some movement but no epileptiform activity. She has not seen a psychiatrist although is taking Zoloft. Patient states she does have history of diabetes for 20 years. She has history of MT about a year ago and after that she had 2 blood clots, therefore is on long-term anticoagulation with Apixaban 5 mg bid. She denies any tobacco or alcohol. She lives her that with her 20-year-old son. Patient has history of right big toe amputation, but all toes are amputated on the left side. Patient has AICD placement. Patient had computed tomography scan of the head yesterday which revealed old left-sided thalamic lacunar infarct. EKG showed atrial sensed ventricular paced rhythm. Biventricular pacemaker detected. Patient had a carotid Doppler on 07/26/2019, which revealed no significant stenosis. 2-D echo showed sinus rhythm, AICD. Left ventricle is mildly dilated. Moderate concentric LVH. There is severe global hypokinesis of left ventricle. Overall left ventricular systolic function is severely impaired with EF <20%. The right ventricle is normal in size. Left atrium was severely dilated. Interatrial and interv entricular septum intact. Patient had a CONY on 05/02/2019, which revealed no definite evidence of thrombus in the left ventricular apex. There is evidence of Giuseppe smoke in the left ventricular, left atrium. There is no evidence of thrombus in the left atrial appendage. There is a small echogenic mass which is flexing in the vicinity of the lead in the right atrium. One cannot completely exclude thrombus or vegetations. Patient had ultrasound of the neck which revealed thyromegaly with findings suggestive of thyroiditis. Her hemoglobin A1c is 6.8. Liver functions normal. Her last cholesterol is 188, LDL 113, HDL 45. B12 889 on 07/27/2019. TSH is mildly elevated 5.92, but free T4 normal. TPO antibodies negative. Review of Systems Numerous, as mentioned in HPI. Past Medical History Past Medical History: Asthma, Heart Failure, COPD, CVA/TIA, Diabetes Mellitus, Hypertension, Myocardial Infarction ([place]), Pneumonia, Seizure Disorder, Seizure Disorder Additional Past Medical History / Comment(s): uses a cane. Last seizure unknown Last Myocardial Infarction Date:: 06/2018 History of Any Multi-Drug Resistant Organisms: MRSA, VRE, VRE Date of last positivie culture/infection: 2016 MDRO Source:: bilat feet Past Surgical History: Adenoidectomy, AICD, Section, Heart Catheterization, Orthopedic Surgery, Pacemaker, Tonsillectomy Additional Past Surgical History / Comment(s): AICD - [employer]. has pacemaker defibrillator, right all toe amputated 04/2016, LT GREAT TOE then left foot partial amputation Past Anesthesia/Blood Transfusion Reactions: Postoperative Nausea & Vomiting (PONV) Type of Cardiac Device: Biventricular Pacemaker, Permanent Pacemaker, AICD Device Placement Date:: 2011 Past Psychological History: Bipolar Additional Psychological History / Comment(s): Single. Lives in the family home with her 1 son, as well as her son-in-law and brother. There are 2 pet cats and watches daughters dogs, rabbit, 2 birds in the home. 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 No alcohol or IV drug use. Quit smoking in Oct 2017. Has medical marijuana card and smokes marijuana on a daily basis at bedtime for pain control.. Smoking Status: Former smoker Past Alcohol Use History: None Reported Additional Past Alcohol Use History / Comment(s): Patient was a smoker of a half a pack cigarettes per day for 32 years and quit in June 2018. Past Drug Use History: None Reported Additional Drug Use History / Comment(s): medical marijuana card not currently using. - Past Family History Mother Family Medical History: Deep Vein Thrombosis (DVT) Additional Family Medical History / Comment(s): Some type of heart problems, kidney failure. Father History Unknown: Yes Family Medical History: Unable to Obtain Additional Family Medical History / Comment(s): Patient denies knowing any medical history on her father. Medications and Allergies Home Medications Medication Instructions Recorded Confirmed Type Gabapentin [Neurontin] 600 mg PO TID #90 tablet 01/09/19 09/13/19 Rx INSULIN ASPART (NovoLOG) [NovoLOG See Protocol SQ AC-TID 04/30/19 09/13/19 Hist ory (formulary)] Insulin Glargine [Lantus] 40 unit SQ DAILY 04/30/19 09/13/19 History Lisinopril [Zestril] 2.5 mg PO DAILY #30 tab 05/04/19 09/13/19 Rx Atorvastatin [Lipitor] 80 mg PO DAILY 07/26/19 09/13/19 History Carvedilol [Coreg] 6.25 mg PO BID 07/26/19 09/13/19 History Spironolactone [Aldactone] 25 mg PO BID 07/26/19 09/13/19 History Apixaban [Eliquis] 5 mg PO BID 07/27/19 09/13/19 History Furosemide [Lasix] 80 mg PO BID 08/20/19 09/13/19 History acetaZOLAMIDE [Diamox Sequels] 500 mg PO BID 08/20/19 09/13/19 History Sertraline [Zoloft] 25 mg PO DAILY 09/13/19 09/13/19 History Allergies Allergy/AdvReac Type Severity Reaction Status Date / Time Penicillins Allergy Rash/Hives Verified 09/13/19 17:54 ondansetron [From Zofran] AdvReac Nausea & Verified 09/13/19 17:54 Vomiting Physical Examination - Vital Signs Vital Signs: Vital Signs Temp Pulse Pulse Resp BP BP Pulse Ox 09/14/19 07:56 97.7 F 75 18 124/73 97 10/18/19 07:15 98.3 F 68 20 127/76 99 09/14/19 05:15 98.1 F 68 18 131/73 97 09/14/19 03:15 97.9 F 68 20 132/77 98 09/14/19 01:15 97.8 F 64 20 131/74 98 09/14/19 00:00 98.0 F 74 16 139/76 99 09/13/19 23:00 98.0 F 76 16 130/66 96 09/13/19 21:44 71 16 134/79 98 09/13/19 18:24 78 16 143/86 97 09/13/19 16:42 97.9 F 86 18 118/86 96 Intake and Output 09/13/19 09/14/19 09/14/19 22:59 06:59 14:59 Other: Weight 117.934 kg On examination patient is a middle aged female, in no distress. She is alert and awake, very pleasant. She does talk sometimes tangential. Speech and language functions are normal with no aphasia or dysarthria. Attention, concentration and fund of knowledge appears adequate. On cranial nerve examination her pupils are round and reacting, visual nieves are full, face is symmetric and tongue protrudes the midline. Palatal elevation and sensation normal on muscle strength testing there is no pronator drift and the strength is normal in arms distally and proximally. In the lower limbs, her strength is normal in the right lower limb. On the left side her hip flexion is 4+, ankle dorsiflexion is 4. Patient has amputated right big toe. She has amputated all toes of the left foot. No ataxia for [id number] testing in the upper extremities. Sensations are equal. Reflexes are diminished. Plantars cannot be checked due to amputated toes. Tone and bulk of muscles normal. Gait deferred. No obvious bruit or murmur. No edema. Results - Laboratory Findings CBC and BMP: 09/14/19 10:42 09/14/19 10:42 Abnormal Lab Findings: Abnormal Labs 09/13/19 09/13/19 09/14/19 17:23 17:23 10:42 MCHC 30.9 L RDW 15.6 H BUN 21 H Glucose 205 H POC Glucose (mg/dL) Alkaline Phosphatase 150 H Triglycerides 150 H LDL Cholesterol, Calc 113 H 09/14/19 09/14/19 10:42 11:40 MCHC RDW BUN 18 H Glucose 133 H POC Glucose (mg/dL) 118 H Alkaline Phosphatase Triglycerides LDL Cholesterol, Calc Assessment and Plan Assessment: * Recurrent episodes of atypical neurological symptoms with "weird sensation in the head", confusion, impaired motor skills, balance, unclear etiology. TIA is a possibility, as her previous CONY from 05/02/2019 showed possibility of a vegetation. Patient although is on adequate dose of anticoagulation with Apixaban 5 mg twice a day and aspirin 325 mg. Patient has severe CHF with low ejection fraction. Uncertain if these symptoms are related to poor cardiac output, affecting intermittent global cerebral dysfunction. * Diabetes * Hypertension * CAD * Atrial fibrillation on anticoagulation Plan: * I would suggest cardiology consultation to follow-up on her CONY which showed evidence of possible vegetation. Suspect these vegetations could be symptomatic, producing episodes of possible TIAs. Patient is on Apixaban 5 mg twice a day and aspirin 325 mg. * Neurology coverage not available on the weekend. I will be available for rounding on 09/17/2019. * Thank you very much for allowing me to participate in care of your patient.
[2019-09-14 16:54] LABS: Glucose,Whole Blood 145 mg/dL (75-99)
--- NOTE | 2019-09-14 17:32 | P.HPIM ---
History of Present Illness H&P Date: 09/14/19 Chief Complaint: Acute confusion History of presenting complaint: This is a pleasant 43-year-old patient of Dr. Causey. Chronic stable medical conditions include congestive heart failure EF 20% from hypertensive heart disease, AICD, COPD, diabetes mellitus type 2 on insulin, hypertension, possible seizure disorder, peripheral neuropathy secondary to diabetes and multiple toe amputations.. Patient was here in April of this year with a splenic infarct and also was found to have a cardiac thrombus for which she is on eliquis. She did have a CONY. Patient was doing fine at home. When she first noticed some discomfort in the left arm, and she developed some anterior chest wall pain. Then she developed a headache and started feeling unwell. Patient started getting foggy in the brain in the eyes. Speech became slurred. Became weak all over. And she was sent in by the family. She feels a bit better earlier when I saw her but not back to baseline. Neurology was consulted.. Patient had multiple of these presentations. With extensive workup. All been negative. Initial no obvious self resolving. Review of systems: GEN.: Tired EYES: None HEENT: None NECK: None RESPIRATORY: None CARDIOVASCULAR: As above GASTROINTESTINAL: None GENITOURINARY: None MUSCULOSKELETAL: Occasional pains in his joints LYMPHATICS: None HEMATOLOGICAL: None PSYCHIATRY: None NEUROLOGICAL: As above Past medical history: COPD X smoker, cardiomyopathy EF less than 20% with a negative cardiac cath felt to be from underlying hypertensive heart disease, stroke, diabetes, hyperten slava, possible seizure disorder, peripheral neuropathy, some baseline memory and residual speech loss, cardiac thrombus Social history: Lives with her son. Smoked for many years has not smoked for about a year. Did medical marijuana in the past. No alcohol. Family history: DVT and kidney disease Physical examination: VITAL SIGNS: 97.9, 86, 18, 11 8/86, 96% room air-upon presentation GENERAL: BMI 39.5, sitting upon a chair, tired but he would also questions EYES: Pupils equal. Conjunctiva normal. HEENT: External appearance of nose and ears normal, oral cavity grossly normal. NECK: JVD not raised; masses not palpable. HEART: First and second heart sounds are normal; no edema. LUNGS: Respiratory rate normal; decreased breath sounds. ABDOMEN: Soft, nontender, liver spleen not palpable, no masses palpable. PSYCH: Lethargic able to answer question -doses off NEUROLOGICAL: Cranial nerves grossly intact; no facial asymmetry, power and sensation grossly intact. Speech is a bit slow. Decreased sensorium LYMPHATICS: No lymph nodes palpable in the axilla and neck INVESTIGATIONS, reviewed in the clinical context: White count 8.7 hemoglobin 11.4 platelets 322 potassium 4. 06/28/2021 and crit 0.89 EKG tracing personally reviewed by me-atrial paced rhythm CT brain-old left-sided thalamic lacunar infarct EEG done on August 21-normal Carotid Doppler on July 26-no significant stenosis Assessment: -A presentation that comprises of decreased sensorium some chest pain, no focal symptoms, with repeated workup in the past being negative. Wonder if it's related to hold normal pacemaker function. Causing decreased cerebral perfusion. -Chronic congestive heart failure from systolic dysfunction EF 20% from hypertensive heart disease. 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 -Baseline some dysarthria Plan: Neurology was consulted. Computed tomography scan of the brain was negative. Neuro checks were ordered. Will get a cardiology opinion to make sure the pacemaker is working fine. Patient is already improving since his presentation. If she continues to improve and cleared by cardiology, may be appropriate for discharge tomorrow. Past Medical History Past Medical History: Asthma, Heart Failure, COPD, CVA/TIA, Diabetes Mellitus, Hypertension, Myocardial Infarction ([place]), Pneumonia, Seizure Disorder, Seizure Disorder Additional Past Medical History / Comment(s): uses a cane. Last seizure unknown Last Myocardial Infarction Date:: 06/2018 History of Any Multi-Drug Resistant Organisms: MRSA, VRE, VRE Date of last positivie culture/infection: 2016 MDRO Source:: bilat feet Past Surgical History: Adenoidectomy, AICD, Section, Heart Catheterization, Orthopedic Surgery, Pacemaker, Tonsillectomy Additional Past Surgical History / Comment(s): AICD - [employer]. has pacemaker defibrillator, right all toe amputated 04/2016, LT GREAT TOE then left foot partial amputation Past Anesthesia/Blood Transfusion Reactions: Postoperative Nausea & Vomiting (PONV) Type of Cardiac Device: Biventricular Pacemaker, Permanent Pacemaker, AICD Device Placement Date:: 2011 Past Psychological History: Bipolar Additional Psychological History / Comment(s): Single. Lives in the family home with her 1 son, as well as her son-in-law and brother. There are 2 pet cats and watches daughters dogs, rabbit, 2 birds in the home. 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 No alcohol or IV drug use. Quit smoking in Oct 2017. Has medical marijuana card and smokes marijuana on a daily basis at bedtime for pain control.. Smoking Status: Former smoker Past Alcohol Use History: None Reported Additional Past Alcohol Use History / Comment(s): Patient was a smoker of a half a pack cigarettes per day for 32 years and quit in June 2018. Past Drug Use History: None Reported Additional Drug Use History / Comment(s): medical marijuana card not currently using. - Past Family History Mother Family Medical History: Deep Vein Thrombosis (DVT) Additional Family Medical History / Comment(s): Some type of heart problems, kidney failure. Father History Unknown: Yes Family Medical History: Unable to Obtain Additional Family Medical History / Comment(s): Patient denies knowing any medical history on her father. Medications and Allergies Home Medications Medication Instructions Recorded Confirmed Type Gabapentin [Neurontin] 600 mg PO TID #90 tablet 01/09/19 09/13/19 Rx INSULIN ASPART (NovoLOG) [NovoLOG See Protocol SQ AC-TID 04/30/19 09/13/19 History (formulary)] Insulin Glargine [Lantus] 40 unit SQ DAILY 04/30/19 09/13/19 History Lisinopril [Zestril] 2.5 mg PO DAILY #30 tab 05/04/19 09/13/19 Rx Atorvastatin [Lipitor] 80 mg PO DAILY 07/26/19 09/13/19 History Carvedilol [Coreg] 6.25 mg PO BID 07/26/19 09/13/19 History Spironolactone [Aldactone] 25 mg PO BID 07/26/19 09/13/19 History Apixaban [Eliquis] 5 mg PO BID 07/27/19 09/13/19 History Furosemide [Lasix] 80 mg PO BID 08/20/19 09/13/19 History acetaZOLAMIDE [Diamox Sequels] 500 mg PO BID 08/20/19 09/13/19 History Sertraline [Zoloft] 25 mg PO DAILY 09/13/19 09/13/19 History Allergies Allergy/AdvReac Type Severity Reaction Status Date / Time Penicillins Allergy Rash/Hives Verified 09/13/19 17:54 ondansetron [From Zofran] AdvReac Nausea & Verified 09/13/19 17:54 Vomiting Physical Exam Vitals: Vital Signs Temp Pulse Pulse Resp BP BP Pulse Ox 09/14/19 07:56 97.7 F 75 18 124/73 97 09/14/19 07:15 98.3 F 68 20 127/76 99 09/14/19 05:15 98.1 F 68 18 131/73 97 09/14/19 03:15 97.9 F 68 20 132/77 98 09/14/19 01:15 97.8 F 64 20 131/74 98 09/14/19 00:00 98.0 F 74 16 139/76 99 09/13/19 23:00 98.0 F 76 16 130/66 96 09/13/19 21:44 71 16 134/79 98 09/13/19 18:24 78 16 143/86 97 09/13/19 16:42 97.9 F 86 18 118/86 96 Intake and Output 09/13/19 09/14/19 09/14/19 22:59 06:59 14:59 Other: Weight 117.934 kg Results CBC & Chem 7: 09/14/19 10:42 09/14/19 10:42 Labs: Abnormal Lab Results - Last 24 Hours (Table) 09/13/19 09/13/19 Range/Units 17:23 17:23 BUN 21 H (7-17) mg/dL Glucose 205 H (74-99) mg/dL Alkaline Phosphatase 150 H (38-126) U/L Triglycerides 150 H (<150) mg/dL LDL Cholesterol, Calc 113 H (0-99) mg/dL
--- NOTE | 2019-09-14 18:43 | EEG ---
ELECTROENCEPHALOGRAM REPORT DATE OF SERVICE: 09/14/2019. PREAMBLE: This is a 43-year-old female with history of diabetes, hypertension, has episodes of mental confusion, disorientation. This study is performed to evaluate for any epileptiform activity. EEG FINDINGS: A routine 21-channel awake digital EEG recording was accomplished utilizing the 10/20 international system with bipolar and referential montages. The background consists of well-developed, well-regulated, moderate amplitude activity in 8-9 Hz alpha. Background is posterior-dominant and reactive to eye opening and closing. There is frequent bitemporal slowing in rhythmic polymorphic delta and theta range, bitemporal and independent. Intermittent left greater than right temporal sharp waves were seen. Different stages of sleep were not seen. Photic driving response was not seen. IMPRESSION: This is an abnormal EEG due to: 1. Presence of intermittent bitemporal slowing. 2. Presence of intermittent sharp-wave activity over bitemporal region, left more than right. This is suggestive of focal cortical neural dysfunction with underlying cortical irritability and tendency for seizures. Clinical correlation is recommended. MMEDINL / IJN: [id number] / ELVIA
[2019-09-14 20:18] LABS: Glucose,Whole Blood 164 mg/dL (75-99)
[2019-09-14] MEDS: ASPIRIN 325 MG TAB PO SCH (20:30)
--- NOTE | 2019-09-14 21:23 | P.PN ---
Progress Note - Text Progress Note Date: 09/14/19 Patient's EEG reviewed. It was abnormal. There are presence of intermittent bitemporal slowing. Presence of intermittent sharp wave activity over bitemporal region, left more than right. This is suggestive of focal cortical neuronal dysfunction with underlying cortical irritability and tendency for seizures. Clinical correlation is recommended. Based upon this EEG findings, patient possibly could be having seizures also. Discussed with patient about empirically starting on antiepileptic medication. We will start Keppra 500 mg twice a day. Possible side effects were discussed. Patient to follow up with local neurologist. Neurologically clear for discharge, if cleared by cardiology. Patient not to drive automobile, unless free of these spells for 6 months. She should not climb ladders, operate dangerous machinery or unsupervised swimming.
[2019-09-15] MEDS: SODIUM CHLORIDE 0.9% 1,000 ML IV SCH ×3 (03:08→22:10)
[2019-09-15 06:42] LABS: Glucose,Whole Blood 136 mg/dL (75-99)
[2019-09-15] MEDS: CARVEDILOL 6.25 MG TAB PO SCH ×2 (07:15→17:23)
[2019-09-15] MEDS: INSULIN ASPART (NovoLOG) 100 UNIT/ML VIAL SQ SCH ×3 (07:15→17:23)
[2019-09-15] MEDS: INSULIN DETEMIR (LEVEMIR) 100 UNIT/ML SYR SQ SCH (07:16)
[2019-09-15] MEDS: SERTRALINE 25 MG TAB PO SCH (08:10)
[2019-09-15] MEDS: SPIRONOLACTONE 25 MG TAB PO SCH ×2 (08:10→20:21)
[2019-09-15] MEDS: levETIRAcetam 500 MG TAB PO SCH ×2 (08:10→20:21)
[2019-09-15] MEDS: LISINOPRIL 2.5 MG TAB PO SCH (08:10)
[2019-09-15] MEDS: APIXABAN 5 MG TAB PO SCH ×2 (08:10→20:21)
[2019-09-15] MEDS: ATORVASTATIN 80 MG TAB PO SCH (08:10)
[2019-09-15] MEDS: FUROSEMIDE 80 MG TAB PO SCH ×2 (08:10→20:21)
[2019-09-15] MEDS: ASPIRIN 325 MG TAB PO SCH (08:10)
[2019-09-15] MEDS: GABAPENTIN 300 MG CAP PO SCH ×3 (08:10→22:10)
[2019-09-15 11:59] LABS: Glucose,Whole Blood 156 mg/dL (75-99)
--- NOTE | 2019-09-15 14:01 | P.CRDCN ---
<Toya Yeh - Last Filed: 09/15/19 13:40> History of Present Illness History of present illness: This is Toya Yeh PA-C dictating a consult on this patient The patient was interviewed and examined by me as well as by Dr. Esquivel Case discussed with Dr. Esquivel and he agrees with the plan of care IMPRESSION / ASSESSMENT: Atypical chest pain, troponins negative 2, no ST changes on EKG Altered mental status, brain CT showing old left thalamic coronary infarct with no acute abnormality, neurology following Known idiopathic cardiomyopathy, status post biventricular ICD implant, previous echo showing EF less than 20% History of blood clot and questionable vegetation in the vicinity of her on CONY, subsequent blood cultures negative, currently anticoagulated with eliquis Hypertension Diabetes Device interrogation showed device at [facility] PLAN: We'll repeat echo and check an ESR She will need a generator change soon since her device is at [facility] continue current cardiac medication regimen including beta blockers, statins, lisinopril and spironolactone Continue eliquis HPI Patient is a 43-year-old female with a past medical history significant for idiopathic cardiomyopathy, hypertension, and diabetes who presented with altered mental status. She is a patient of Dr. Salas. She has known idiopathic cardiomyopathy and had a suspected blood clot in her echo back in July 2018 that she was started on eliquis. In May 2019 she underwent a CONY to rule out cardiac source of emboli she had a computed tomography scan suggestive of splenic infarct. The CONY at that time showed a small echogenic mass flickering in the vicinity of the lead in the right atrium. Follow-up blood cultures showed no growth 3. Echo at that time showed EF less than 20%. Patient states she was watching TV on when she experienced left arm pain which then spread to her chest and up to her head. She started to feel "discombobulated". She had no shortness of breath and dizziness or palpitat ions. No fevers. She presented to the hospital for further evaluation. EKG showed biventricular pacing. Brain CT showed old left thalamic lacunar infarct with no acute abnormality. Patient seen and examined resting comfortably in bed. States her chest pain has resolved. Denies any shortness of breath, dizziness or palpitations. ROS: No fevers, positive chills no cough, phlegm or expectoration, no nausea, vomiting or diarrhea, no hematuria, dysuria, no musculoskeletal complaints, no skin lesions. EXAMINATION: Temperature 98.2F, pulse 76, respirations 16, blood pressure 136/90, oxygen saturation 97% on room air Patient seen and examined resting in bed, in no acute distress Heart is regular, normal S1-S2, no audible murmurs Lungs clear to auscultation bilaterally No lower extremity edema or elevated JVD appreciated REVIEW OF LABS, ECG & MEDICAL DATA WBC 7.5, hemoglobin 11.7, platelets 277, potassium 5.0, BUN 18, creatinine 0.8 LDL 113 Troponin negative 2 Past Medical History Past Medical History: Asthma, Heart Failure, COPD, CVA/TIA, Diabetes Mellitus, Hypertension, Myocardial Infarction ([place]), Pneumonia, Seizure Disorder, Seizure Disorder Additional Past Medical History / Comment(s): uses a cane. Last seizure unknown Last Myocardial Infarction Date:: 06/2018 History of Any Multi-Drug Resistant Organisms: MRSA, VRE, VRE Date of last positivie culture/infection: 2016 MDRO Source:: bilat feet Past Surgical History: Adenoidectomy, AICD, Section, Heart Catheterization, Orthopedic Surgery, Pacemaker, Tonsillectomy Additional Past Surgical History / Comment(s): AICD - [employer]. has pacemaker defibrillator, right all toe amputated 04/2016, LT GREAT TOE then left foot partial amputation Past Anesthesia/Blood Transfusion Reactions: Postoperative Nausea & Vomiting (PONV) Type of Cardiac Device: Biventricular Pacemaker, Permanent Pacemaker, AICD Device Placement Date:: 2011 Past Psychological History: Bipolar Additional Psychological History / Comment(s): Single. Lives in the family home with her 1 son, as well as her son-in-law and brother. There are 2 pet cats and watches daughters dogs, rabbit, 2 birds in the home. 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 No alcohol or IV drug use. Quit smoking in Oct 2017. Has medical marijuana card and smokes marijuana on a daily basis at bedtime for pain control.. Smoking Status: Former smoker Past Alcohol Use History: None Reported Additional Past Alcohol Use History / Comment(s): Patient was a smoker of a half a pack cigarettes per day for 32 years and quit in June 2018. Past Drug Use History: None Reported Additional Drug Use History / Comment(s): medical marijuana card not currently using. - Past Family History Mother Family Medical History: Deep Vein Thrombosis (DVT) Additional Family Medical History / Comment(s): Some type of heart problems, kidney failure. Father History Unknown: Yes Family Medical History: Unable to Obtain Additional Family Medical History / Comment(s): Patient denies knowing any medical history on her father. Medications and Allergies Home Medications Medication Instructions Recorded Confirmed Type Gabapentin [Neurontin] 600 mg PO TID #90 tablet 01/09/19 09/13/19 Rx INSULIN ASPART (NovoLOG) [NovoLOG See Protocol SQ AC-TID 04/30/19 09/13/19 History (formulary)] Insulin Glargine [Lantus] 40 unit SQ DAILY 04/30/19 09/13/19 History Lisinopril [Zestril] 2.5 mg PO DAILY #30 tab 05/04/19 09/13/19 Rx Atorvastatin [Lipitor] 80 mg PO DAILY 07/26/19 09/13/19 History Carvedilol [Coreg] 6.25 mg PO BID 07/26/19 09/13/19 History Spironolactone [Aldactone] 25 mg PO BID 07/26/19 09/13/19 History Apixaban [Eliquis] 5 mg PO BID 07/27/19 09/13/19 History Furosemide [Lasix] 80 mg PO BID 08/20/19 09/13/19 History acetaZOLAMIDE [Diamox Sequels] 500 mg PO BID 08/20/19 09/13/19 History Sertraline [Zoloft] 25 mg PO DAILY 09/13/19 09/13/19 History Allergies Allergy/AdvReac Type Severity Reaction Status Date / Time Penicillins Allergy Rash/Hives Verified 09/13/19 17:54 ondansetron [From Zofran] AdvReac Nausea & Verified 09/13/19 17:54 Vomiting Physical Exam Vitals: Vital Signs Temp Pulse Resp BP Pulse Ox 09/15/19 08:00 98.3 F 71 16 120/66 96 09/15/19 05:24 97.7 F 78 15 121/70 98 09/15/19 00:26 97.4 F L 73 16 108/64 96 09/14/19 20:25 97.6 F 71 15 114/64 97 09/14/19 17:04 94 L 09/14/19 15:54 74 09/14/19 15:42 97.7 F 74 18 127/75 97 09/14/19 12:00 98 F 79 18 142/88 95 Intake and Output 09/14/19 09/15/19 09/15/19 22:59 06:59 14:59 Intake Total 240 100 Balance 240 100 Intake: Oral 240 100 Other: # Voids 1 Weight 123.1 kg Results 09/14/19 10:42 09/14/19 10:42 CBC 09/14/19 Range/Units 10:42 WBC 7.5 (3.8-10.6) k/uL RBC 4.53 (3.80-5.40) m/uL Hgb 11.7 (11.4-16.0) gm/dL Hct 37.8 (34.0-46.0) % Plt Count 277 (150-450) k/uL Comprehensive Metabolic Panel 09/14/19 Range/Units 10:42 Sodium 140 (137-145) mmol/L Potassium 5.0 (3.5-5.1) mmol/L Chloride 107 (98-107) mmol/L Carbon Dioxide 26 (22-30) mmol/L BUN 18 H (7-17) mg/dL Creatinine 0.80 (0.52-1.04) mg/dL Glucose 133 H (74-99) mg/dL Calcium 9.0 (8.4-10.2) mg/dL Current Medications Generic Name Dose Route Start Last Admin Trade Name Freq PRN Reason Stop Dose Admin Acetaminophen 650 mg 09/14/19 10:40 09/14/19 21:34 Tylenol Tab PO 650 mg Q6HR PRN Administration Fever and/ or Mild Pain Apixaban 5 mg 09/14/19 09:30 09/15/19 08:10 Eliquis PO 5 mg BID JAN Administration Aspirin 325 mg 09/14/19 19:26 09/15/19 08:10 Aspirin PO 325 mg DAILY JAN Administration Atorvastatin Calcium 80 mg 09/14/19 09:30 09/15/19 08:10 Lipitor PO 80 mg DAILY JAN Administration Carvedilol 6.25 mg 09/14/19 09:30 09/15/19 07:15 Coreg PO 6.25 mg BID-W/MEALS JAN Administration Furosemide 80 mg 09/14/19 09:30 09/15/19 08:10 Lasix PO 80 mg BID JAN Administration Gabapentin 600 mg 09/14/19 09:30 09/15/19 08:10 Neurontin PO 600 mg TID JAN Administration Sodium Chloride 1,000 mls @ 100 mls/hr 09/13/19 19:30 09/15/19 03:08 Saline 0.9% IV Not Given .Q10H JAN Insulin Aspart 0 unit 09/14/19 12:30 09/15/19 07:15 Novolog SQ 1 unit AC-TID JAN Administration Protocol Insulin Detemir 40 unit 09/14/19 09:30 09/15/19 07:16 Levemir SQ Not Given DAILY@0700 JAN Levetiracetam 500 mg 09/15/19 09:00 09/15/19 08:10 Keppra PO 500 mg Q12HR JAN Administration Lisinopril 2.5 mg 09/14/19 09:30 09/15/19 08:10 Zestril PO 2.5 mg DAILY JAN Administration Sertraline HCl 25 mg 09/14/19 09:30 09/15/19 08:10 Zoloft PO 25 mg DAILY JAN Administration Spironolactone 25 mg 09/14/19 09:30 09/15/19 08:10 Aldactone PO 25 mg BID JAN Administration Intake and Output 09/14/19 09/15/19 09/15/19 22:59 06:59 14:59 Intake Total 240 100 Balance 240 100 Intake: Oral 240 100 Other: # Voids 1 Weight 123.1 kg 09/14/19 10:42 09/14/19 10:42 <Fran Esquivel - Last Filed: 09/15/19 21:00> History of Present Illness History of present illness: ESR elevated Thickening cold lead will be reevaluated and compared with his previous CONY I will speak to Dr. Roldan on Tuesday Hold off on any generator change change until any infection issues are clarified Patient has been noncompliant with ICD follow-up. Her device was last interrogated one year back in the office Physical Exam Vitals: Vital Signs Temp Pulse Resp BP Pulse Ox 09/15/19 20:19 98.3 F 72 16 119/63 96 09/15/19 15:07 97.9 F 77 16 112/74 96 09/15/19 11:39 98.2 F 76 16 136/90 97 09/15/19 08:00 98.3 F 71 16 120/66 96 09/15/19 05:24 97.7 F 78 15 121/70 98 09/15/19 00:26 97.4 F L 73 16 108/64 96 Intake and Output 09/15/19 09/15/19 09/15/19 06:59 14:59 22:59 Intake Total 100 222 222 Output Total 1200 Balance 100 222 -978 Intake: Oral 100 222 222 Output: Urine 1200 Other: # Voids 2 Weight 123.1 kg Results 09/14/19 10:42 09/14/19 10:42 Cardiac Enzymes 09/15/19 Range/Units 11:44 Troponin I <0.012 (0.000-0.034) ng/mL Current Medications Generic Name Dose Route Start Last Admin Trade Name Freq PRN Reason Stop Dose Admin Acetaminophen 650 mg 09/14/19 10:40 09/15/19 14:07 Tylenol Tab PO 650 mg Q6HR PRN Administration Fever and/ or Mild Pain Apixaban 5 mg 09/14/19 09:30 09/15/19 20:21 Eliquis PO 5 mg BID JAN Administration Aspirin 81 mg 09/16/19 09:00 Aspirin PO DAILY JAN Atorvastatin Calcium 80 mg 09/14/19 09:30 09/15/19 08:10 Lipitor PO 80 mg DAILY JAN Administration Carvedilol 6.25 mg 09/14/19 09:30 09/15/19 17:23 Coreg PO 6.25 mg BID-W/MEALS JAN Administration Furosemide 80 mg 09/14/19 09:30 09/15/19 20:21 Lasix PO 80 mg BID JAN Administration Gabapentin 600 mg 09/14/19 09:30 09/15/19 17:23 Neurontin PO 600 mg TID JAN Administration Sodium Chloride 1,000 mls @ 100 mls/hr 09/13/19 19:30 09/15/19 15:47 Saline 0.9% IV 100 mls/hr .Q10H JAN Administration Insulin Aspart 0 unit 09/14/19 12:30 09/15/19 17:23 Novolog SQ 1 unit AC-TID JAN Administration Protocol Insulin Detemir 40 unit 09/14/19 09:30 09/15/19 07:16 Levemir SQ Not Given DAILY@0700 JAN Levetiracetam 500 mg 09/15/19 09:00 09/15/19 20:21 Keppra PO 500 mg Q12HR JAN Administration Lisinopril 2.5 mg 09/14/19 09:30 09/15/19 08:10 Zestril PO 2.5 mg DAILY JAN Administration Sertraline HCl 25 mg 09/14/19 09:30 09/15/19 08:10 Zoloft PO 25 mg DAILY JAN Administration Spironolactone 25 mg 09/14/19 09:30 09/15/19 20:21 Aldactone PO 25 mg BID JAN Administration Intake and Output 09/15/19 09/15/19 09/15/19 06:59 14:59 22:59 Intake Total 100 222 222 Output Total 1200 Balance 100 222 -978 Intake: Oral 100 222 222 Output: Urine 1200 Other: # Voids 2 Weight 123.1 kg 09/14/19 10:42 09/14/19 10:42
[2019-09-15] MEDS: ACETAMINOPHEN TAB 325 MG TAB PO PRN (14:07)
[2019-09-15 16:53] LABS: Glucose,Whole Blood 144 mg/dL (75-99)
--- NOTE | 2019-09-15 17:26 | P.PN ---
Progress Note - Text Progress Note Date: 09/15/19 Chief Complaint: Acute confusion History of presenting complaint: This is a pleasant 43-year-old patient of Dr. Causey. Chronic stable medical conditions include congestive heart failure EF 20% from hypertensive heart disease, AICD, COPD, diabetes mellitus type 2 on insulin, hypertension, possible seizure disorder, peripheral neuropathy secondary to diabetes and multiple toe amputations.. Patient was here in April of this year with a splenic infarct and also was found to have a cardiac thrombus for which she is on eliquis. She did have a CONY. Patient was doing fine at home. When she first noticed some discomfort in the left arm, and she developed some anterior chest wall pain. Then she developed a headache and started feeling unwell. Patient started getting foggy in the brain in the eyes. Speech became slurred. Became weak all over. And she was sent in by the family. She feels a bit better earlier when I saw her but not back to baseline. Neurology was consulted.. Patient had multiple of these presentations. With extensive workup. All been negative. Initial no obvious self resolving. Patient seen by Dr. Esquivel from cardiology.. Patient was soon need a generator change. Neurological workup has been negative. Today-patient did have another episode. This morning. now feeling much better. Patient wanted to go home. Did tell her that she needs to wait to she's back to baseline. Review of systems: Was done for constitutional, cardiovascular, GI, pulmonary. Neurology, relevant finding as above Active Medications Acetaminophen (Tylenol Tab) 650 mg PO Q6HR PRN PRN Reason: Fever and/ or Mild Pain Last Admin: 09/15/19 14:07 Dose: 650 mg Documented by: Apixaban (Eliquis) 5 mg PO BID [facility] Last Admin: 09/15/19 08:10 Dose: 5 mg Documented by: Aspirin (Aspirin) 81 mg PO DAILY [facility] Atorvastatin Calcium (Lipitor) 80 mg PO DAILY [facility] Last Admin: 09/15/19 08:10 Dose: 80 mg Documented by: Carvedilol (Coreg) 6.25 mg PO BID-W/MEALS [facility] Last Admin: 09/15/19 07:15 Dose: 6.25 mg Documented by: Furosemide (Lasix) 80 mg PO BID [facility] Last Admin: 09/15/19 08:10 Dose: 80 mg Documented by: Gabapentin (Neurontin) 600 mg PO TID [facility] Last Admin: 09/15/19 08:10 Dose: 600 mg Documented by: Sodium Chloride (Saline 0.9%) 1,000 mls @ 100 mls/hr IV .Q10H [facility] Last Admin: 09/15/19 15:47 Dose: 100 mls/hr Documented by: Insulin Aspart (Novolog) 0 unit SQ AC-TID [facility]; Protocol Last Admin: 09/15/19 12:34 Dose: 2 unit Documented by: Insulin Detemir (Levemir) 40 unit SQ DAILY@0700 [facility] Last Admin: 09/15/19 07:16 Dose: Not Given Documented by: Levetiracetam (Keppra) 500 mg PO Q12HR [facility] Last Admin: 09/15/19 08:10 Dose: 500 mg Documented by: Lisinopril (Zestril) 2.5 mg PO DAILY [facility] Last Admin: 09/15/19 08:10 Dose: 2.5 mg Documented by: Sertraline HCl (Zoloft) 25 mg PO DAILY [facility] Last Admin: 09/15/19 08:10 Dose: 25 mg Documented by: Spironolactone (Aldactone) 25 mg PO BID [facility] Last Admin: 09/15/19 08:10 Dose: 25 mg Documented by: Physical examination: VITAL SIGNS: 98.2, 76, 16, 136, 90, 97% room air GENERAL: Laying in bed, for more awake answering questions a bit tired EYES: Pupils equal. Conjunctiva normal. HEENT: External appearance of nose and ears normal, oral cavity grossly normal. NECK: JVD not raised; masses not palpable. HEART: First and second heart sounds are normal; no edema. LUNGS: Respiratory rate normal; decreased breath sounds. ABDOMEN: Soft, nontender, liver spleen not palpable, no masses palpable. PSYCH: Lethargic able to answer question -doses off NEUROLOGICAL: Cranial nerves grossly intact; no facial asymmetry, power and sensation grossly intact. Speech is a bit slow. Much improved sensorium LYMPHATICS: No lymph nodes palpable in the axilla and neck INVESTIGATIONS, reviewed in the clinical context: [id number], 156, 144 Previous testing White count 8.7 hemoglobin 11.4 platelets 322 potassium 4. 06/28/2021 and crit 0.89 EKG tracing personally reviewed by me-atrial paced rhythm CT brain-old left-sided thalamic lacunar infarct EEG done on August 21-normal Carotid Doppler on July 26-no significant stenosis Assessment: -A presentation that comprises of decreased sensorium some chest pain, no focal symptoms, with repeated workup in the past being negative. Wonder if it's related to hold normal pacemaker function. Causing decreased cerebral perfusion. -Chronic congestive heart failure from systolic dysfunction EF 20% from hypertensive heart disease. 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 -Baseline some dysarthria Plan: We'll keep a close and patient today. Spoke to the nurse. Encouraged patient to be out of bed up in a chair. Cardiology will coordinate the generator change.
[2019-09-15 19:59] LABS: Glucose,Whole Blood 166 mg/dL (75-99)
--- NOTE | 2019-09-15 20:58 | P.PCN ---
Preoperative Diagnosis: Patient's biventricular device was interrogated She has a [employer] Device is at end of service, 2.6 V since July 2018 This patient has not followed up in the ICD clinic in the office No arrhythmias detected Originally implanted in 2011 In July 2018 atrial RV and LV thresholds were excellent R waves 4.3 mV, P waves 1.3 mV Atrial pacing impedance 1007, RV pacing impedance 380 ohms, high voltage impedance 87 ohms and LV pacing impedance 627 ohms
[2019-09-16 05:21] LABS: Glucose,Whole Blood 148 mg/dL (75-99)
[2019-09-16 06:01] LABS: Glucose,Whole Blood 154 mg/dL (75-99)
[2019-09-16] MEDS: INSULIN ASPART (NovoLOG) 100 UNIT/ML VIAL SQ SCH ×3 (06:49→16:33)
[2019-09-16] MEDS: CARVEDILOL 6.25 MG TAB PO SCH ×2 (06:50→17:14)
[2019-09-16] MEDS: INSULIN DETEMIR (LEVEMIR) 100 UNIT/ML SYR SQ SCH (06:50)
[2019-09-16] MEDS: SPIRONOLACTONE 25 MG TAB PO SCH ×2 (08:17→20:14)
[2019-09-16] MEDS: ATORVASTATIN 80 MG TAB PO SCH (08:17)
[2019-09-16] MEDS: ASPIRIN 81 MG PO SCH (08:17)
[2019-09-16] MEDS: APIXABAN 5 MG TAB PO SCH ×2 (08:17→20:15)
[2019-09-16] MEDS: levETIRAcetam 500 MG TAB PO SCH (08:17)
[2019-09-16] MEDS: SERTRALINE 25 MG TAB PO SCH (08:17)
[2019-09-16] MEDS: GABAPENTIN 300 MG CAP PO SCH ×3 (08:17→20:14)
[2019-09-16] MEDS: LISINOPRIL 2.5 MG TAB PO SCH (08:17)
[2019-09-16] MEDS: FUROSEMIDE 80 MG TAB PO SCH ×2 (08:18→20:15)
--- NOTE | 2019-09-16 08:59 | ECHOF ---
Referral Reason:tia MEASUREMENTS -------- HEIGHT: 172.7 cm WEIGHT: 122.9 kg BP: 120/66 IVSd: 1.5 cm (0.6 - 1.1) LVIDd: 6.5 cm (3.9 - 5.3) LVPWd: 1.3 cm (0.6 - 1.1) IVSs: 1.6 cm LVIDs: 5.4 cm LVPWs: 1.2 cm LA Diam: 4.2 cm (2.7 - 3.8) RVIDd: 3.3 cm (< 3.3) LAESV Index (A-L): 28.67 ml/m Ao Diam: 3.2 cm (2.0 - 3.7) AV Cusp: 2.3 cm (1.5 - 2.6) EPSS: 2.3 cm MV E Larry: 0.78 m/s MV DecT: 330 ms MV A Larry: 0.98 m/s MV E/A Ratio: 0.79 RAP: 5.00 mmHg RVSP: 33.21 mmHg MV EF SLOPE: 25.08 mm/s (70 - 150) MV EXCURSION: 12.84 mm (> 18.000) TAPSE: 19.13 mm FINDINGS -------- Paced rhythm. This was a technically adequate study. The left ventricle is severely dilated. There is moderate concentric left ventricular hypertrophy. Overall left ventricular systolic function is severely impaired with, an EF between 20 - 25 %. The right ventricle is mildly enlarged. LA is midly dilated 29-33ml/m2. The right atrium is normal in size. Interatrial and interventricular septum intact. The aortic valve is trileaflet and appears structurally normal. The mitral valve leaflets are mildly thickened. There is trace to mild mitral regurgitation. Mild tricuspid regurgitation present. Right ventricular systolic pressure is normal at < 35 mmHg. Trace/mild (physiologic) pulmonic regurgitation. The aortic root size is normal. Normal inferior vena cava with normal inspiratory collapse consistent with estimated right atrial pre ssure of 5 mmHg. There is no pericardial effusion. CONCLUSIONS -------- 1. Paced rhythm. 2. This was a technically adequate study. 3. The left ventricle is severely dilated. 4. There is moderate concentric left ventricular hypertrophy. 5. Overall left ventricular systolic function is severely impaired with, an EF between 20 - 25 %. 6. The right ventricle is mildly enlarged. 7. LA is midly dilated 29-33ml/m2. 8. The right atrium is normal in size. 9. Interatrial and interventricular septum intact. 10. The aortic valve is trileaflet and appears structurally normal. 11. The mitral valve leaflets are mildly thickened. 12. There is trace to mild mitral regurgitation. 13. Mild tricuspid regurgitation present. 14. Right ventricular systolic pressure is normal at < 35 mmHg. 15. Trace/mild (physiologic) pulmonic regurgitation. 16. The aortic root size is normal. 17. Normal inferior vena cava with normal inspiratory collapse consistent with estimated right atrial pressure of 5 mmHg. 18. There is no pericardial effusion. ORIENTAL RUG STRETCHER: Laurie Phipps RDCS
[2019-09-16 11:35] LABS: Glucose,Whole Blood 140 mg/dL (75-99)
--- NOTE | 2019-09-16 15:27 | P.PN ---
Subjective This is Toya Yeh PA-C dictating a progress note on this patient The patient was interviewed and examined by me as well as by Dr. Esquivel Case discussed with Dr. Esquivel and he agrees with the plan of care IMPRESSION / ASSESSMENT: Atypical chest pain, troponins were negative and there are no ST changes on EKG, pain is reproducible with palpation Altered mental status, brain CT showing old left thalamic coronary infarct with no acute abnormality, neurology following Known idiopathic cardiomyopathy, status post biventricular ICD implant, recent echo showed EF 20-25%, appears stable from a heart failure symptoms standpoint lying flat in bed comfortably History of blood clot and questionable vegetation on CONY, subsequent blood cu ltures negative, repeat echo does not show vegetation Hypertension on the blood pressure well controlled Diabetes Device interrogation showed device at VAIBHAV PLAN: Continue current medication regimen Patient will need a generator change soon Repeat BMP Stop IV fluids, patient has CHF HPI Patient is a 43-year-old female with a past medical history significant for idiopathic cardiomyopathy, hypertension, and diabetes who presented with altered mental status. Brain CT showed old left thalamic lacunar infarct with no acute abnormality. Device interrogation showed the device was at VAIBHAV. Patient has been in sinus rhythm on telemetry. Patient seen and examined resting in bed, laying flat. Patient is complaining of a headache. She is also complaining of some chest pain in the center of her chest. No shortness of breath. EXAMINATION: Vital signs are stable Patient seen and examined lying flat in bed, does not appear to be in respiratory distress Heart is regular, normal S1-S2, no audible murmurs She does have tenderness to palpation across the chest Lungs clear to auscultation bilaterally No lower extremity edema or elevated JVD appreciated REVIEW OF LABS, ECG & MEDICAL DATA Echo showed moderate concentric hypertrophy, EF 20-25%, no mention of vegetation No new labs today Objective - Vital Signs Vital signs: Vital Signs Temp 98.2 F 09/16/19 10:59 Pulse 75 09/16/19 10:59 Resp 16 09/16/19 10:59 BP 122/79 09/16/19 10:59 Pulse Ox 96 09/16/19 10:59 Intake & Output 09/15/19 09/16/19 09/16/19 18:59 06:59 18:59 Intake Total 444 0 Output Total 1200 Balance -756 0 Weight 126.4 kg Intake: Oral 444 0 Output: Urine 1200 Other: # Voids 2 2 1 - Labs CBC & Chem 7: 09/14/19 10:42 09/14/19 10:42 Labs: Abnormal Lab Results - Last 24 Hours (Table) 09/15/19 09/15/19 09/15/19 Range/Units 11:44 16:42 19:57 ESR 44 H (0-20) mm/hr POC Glucose (mg/dL) 144 H 166 H (75-99) mg/dL 09/16/19 09/16/19 09/16/19 Range/Units 05:20 05:59 11:33 ESR (0-20) mm/hr POC Glucose (mg/dL) 148 H 154 H 140 H (75-99) mg/dL
[2019-09-16] MEDS: SODIUM CHLORIDE 0.9% 1,000 ML IV SCH (16:33)
[2019-09-16 16:34] LABS: Glucose,Whole Blood 92 mg/dL (75-99)
[2019-09-16] MEDS: levETIRAcetam IV 1,000 MG in SALINE 1 100ML.BAG IVPB SCH (17:24)
[2019-09-16] MEDS: ACETAMINOPHEN TAB 325 MG TAB PO PRN (17:24)
[2019-09-16 20:51] LABS: Glucose,Whole Blood 148 mg/dL (75-99)
--- NOTE | 2019-09-16 22:38 | P.PN ---
Progress Note - Text Progress Note Date: 09/16/19 Chief Complaint: Acute confusion History of presenting complaint: This is a pleasant 43-year-old patient of Dr. Causey. Chronic stable medical conditions include congestive heart failure EF 20% from hypertensive heart disease, AICD, COPD, diabetes mellitus type 2 on insulin, hypertension, possible seizure disorder, peripheral neuropathy secondary to diabetes and multiple toe amputations.. Patient was here in April of this year with a splenic infarct and also was found to have a cardiac thrombus for which she is on eliquis. She did have a CONY. Patient was doing fine at home. When she first noticed some discomfort in the left arm, and she developed some anterior chest wall pain. Then she developed a headache and started feeling unwell. Patient started getting foggy in the brain in the eyes. Speech became slurred. Became weak all over. And she was sent in by the family. She feels a bit better earlier when I saw her but not back to baseline. Neurology was consulted.. Patient had multiple of these presentations. With extensive workup. All been negative. Initial no obvious self resolving. Patient seen by Dr. Esquivel from cardiology.. Patient was soon need a generator change. Neurological workup has been negative. Patient's EEG though did show evidence of intermittent bitemporal slowing. Keppra 500 mg twice a day was started by neurology. Today-patient continues to have her ears neurological episodes of slurring of speech facial asymmetry tired and lethargic and that seemed to fluctuate. I discussed with the patient that I will transfer her to [facility] if increasing the dose of Keppra does not work. She has contracted [facility] in the past. No new determination was made. AICD interrogation was done by Dr. Esquivel. Needs a battery change.. Review of systems: Was done for constitutional, cardiovascular, GI, pulmonary. Neurology, relevant finding as above Active Medications Acetaminophen (Tylenol Tab) 650 mg PO Q6HR PRN PRN Reason: Fever and/ or Mild Pain Last Admin: 09/16/19 17:24 Dose: 650 mg Documented by: Apixaban (Eliquis) 5 mg PO BID [facility] Last Admin: 09/16/19 20:15 Dose: 5 mg Documented by: Aspirin (Aspirin) 81 mg PO DAILY [facility] Last Admin: 09/16/19 08:17 Dose: 81 mg Documented by: Atorvastatin Calcium (Lipitor) 80 mg PO DAILY [facility] Last Admin: 09/16/19 08:17 Dose: 80 mg Documented by: Carvedilol (Coreg) 6.25 mg PO BID-W/MEALS [facility] Last Admin: 09/16/19 17:14 Dose: 6.25 mg Documented by: Furosemide (Lasix) 80 mg PO BID [facility] Last Admin: 09/16/19 20:15 Dose: 80 mg Documented by: Gabapentin (Neurontin) 600 mg PO TID [facility] Last Admin: 09/16/19 20:14 Dose: 600 mg Documented by: Levetiracetam 1,000 mg/ IV (Solution) 100 mls @ 400 mls/hr IVPB Q12H [facility] Last Admin: 09/16/19 17:24 Dose: 400 mls/hr Documented by: Insulin Aspart (Novolog) 0 unit SQ AC-TID [facility]; Protocol Last Admin: 09/16/19 16:33 Dose: Not Given Documented by: Insulin Detemir (Levemir) 40 unit SQ DAILY@0700 [facility] Last Admin: 09/16/19 06:50 Dose: 40 unit Documented by: Lisinopril (Zestril) 2.5 mg PO DAILY [facility] Last Admin: 09/16/19 08:17 Dose: 2.5 mg Documented by: Sertraline HCl (Zoloft) 25 mg PO DAILY [facility] Last Admin: 09/16/19 08:17 Dose: 25 mg Documented by: Spironolactone (Aldactone) 25 mg PO BID [facility] Last Admin: 09/16/19 20:14 Dose: 25 mg Documented by: Physical examination: VITAL SIGNS: 98.2, 75, 16, 122/79, 96% room air GENERAL: Laying in bed, lethargic, some facial bowel movements EYES: Pupils equal. Conjunctiva normal. HEENT: External appearance of nose and ears normal, oral cavity grossly normal. NECK: JVD not raised; masses not palpable. HEART: First and second heart sounds are normal; no edema. LUNGS: Respiratory rate normal; decreased breath sounds. ABDOMEN: Soft, nontender, liver spleen not palpable, no masses palpable. PSYCH: Lethargic able to answer question -doses off NEUROLOGICAL: Lethargic, speech is slow slurred, decreased sensorium INVESTIGATIONS, reviewed in the clinical context: [id number] AICD-interrogation shows end-of-life battery Previous testing White count 8.7 hemoglobin 11.4 platelets 322 potassium 4. 06/28/2021 and crit 0.89 EKG tracing personally reviewed by me-atrial paced rhythm CT brain-old left-sided thalamic lacunar infarct EEG done on August 21-normal Carotid Doppler on July 26-no significant stenosis Assessment: -A presentation that comprises of decreased sensorium some chest pain, no focal symptoms, with repeated workup in the past being negative. Wonder if it's related to hold normal pacemaker function. Causing decreased cerebral perfusion. Possible seizure disorder. We will increase the dose of Keppra -Chronic congestive heart failure from systolic dysfunction EF 20% from hypertensive heart disease. 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 -Baseline some dysarthria Plan: It may be noted that our hospital does not have neurological: Coverage over the weekend Discussed with the patient. This point she is agreeable to have the Keppra dose increased. We'll increase 1000 mg IV every 12. the patient reevaluated by neurology in the morning. If no improvement may consider transfer to [facility].
[2019-09-17] MEDS: levETIRAcetam IV 1,000 MG in SALINE 1 100ML.BAG IVPB SCH (05:05)
[2019-09-17] MEDS: CARVEDILOL 6.25 MG TAB PO SCH ×2 (06:09→17:35)
[2019-09-17] MEDS: ACETAMINOPHEN TAB 325 MG TAB PO PRN ×2 (06:09→17:35)
[2019-09-17 06:36] LABS: HCT 41.5 % (34.0-46.0); HGB 12.9 gm/dL (11.4-16.0); Hypochromasia Marked; MCH 26.2 pg (25.0-35.0); MCHC 31.1 g/dL (31.0-37.0); MCV 84.2 fL (80.0-100.0); Mean Platelet Volume 6.8; Platelet Count 246 k/uL (150-450); RBC 4.93 m/uL (3.80-5.40); WBC 8.2 k/uL (3.8-10.6)
[2019-09-17 06:37] LABS: Glucose,Whole Blood 122 mg/dL (75-99)
[2019-09-17] MEDS: INSULIN ASPART (NovoLOG) 100 UNIT/ML VIAL SQ SCH ×3 (06:44→17:36)
[2019-09-17] MEDS: INSULIN DETEMIR (LEVEMIR) 100 UNIT/ML SYR SQ SCH (06:46)
[2019-09-17 06:48] LABS: Albumin 4.3 g/dL (3.5-5.0); Calcium 9.4 mg/dL (8.4-10.2); Total Bilirubin 0.9 mg/dL (0.2-1.3); Total Protein 8.3 g/dL (6.3-8.2)
[2019-09-17 06:54] LABS: Magnesium 1.9 mg/dL (1.6-2.3); Potassium 5.1 mmol/L (3.5-5.1)
[2019-09-17] MEDS: FUROSEMIDE 80 MG TAB PO SCH ×2 (10:06→20:12)
[2019-09-17] MEDS: ASPIRIN 81 MG PO SCH (10:06)
[2019-09-17] MEDS: GABAPENTIN 300 MG CAP PO SCH ×3 (10:06→20:12)
[2019-09-17] MEDS: LISINOPRIL 2.5 MG TAB PO SCH (10:07)
[2019-09-17] MEDS: APIXABAN 5 MG TAB PO SCH ×2 (10:07→20:12)
[2019-09-17] MEDS: SPIRONOLACTONE 25 MG TAB PO SCH ×2 (10:07→20:12)
[2019-09-17] MEDS: SERTRALINE 25 MG TAB PO SCH (10:07)
[2019-09-17] MEDS: ATORVASTATIN 80 MG TAB PO SCH (10:07)
--- NOTE | 2019-09-17 11:12 | CDI ---
Documentation Clarification Form Date: 09/17/2019 10:27:18 AM From: Malena Espinosa RN, CCDS Admit Date: 09/14/2019 2:16:00 PM Patient Name: Flaca Hinson Visit Number: [id number] Discharge Date: ATTENTION: The Clinical Documentation Specialists (CDI) and [facility] Coding Staff appreciate your assistance in clarifying documentation. Please respond to the clarification below the line at the bottom and electronically sign. The CDI & [facility] Coding staff will review the response and follow-up if needed. Please note: Queries are made part of the Legal Health Record. If you have any questions, please contact the author of this message via ITS. Dr. Karson Hernandez Seizure was documented in the progress note on 09/14/19 and further clarification is needed. Patient history/risk factors: Diabetes type 2, Chronic Systolic heart failure, COPD, Hypertension, Seizure disorder Clinical Indicators: 43-year-old female has episodes of mental confusion, disorientation. EEG was performed to evaluate for any epileptiform activity. The findings were abnormal EEG. this is suggestive of focal cortical neural dysfunction with underlying cortical irritability and tendency for seizures. Vital Signs: 118/86 86 18 97.9 96 % RA Treatment: EEG Keppra 500 BID Seizure precautions Neuro check per protocol In your professional opinion, please clarify if the condition is: Epileptic (if known specify Type of Seizure, Severity, and Associated Cause) Generalized (Idiopathic, other) Localized-related (focal) (partial) epilepsy Idiopathic (further specify if known) Symptomatic further specify if known) Other condition (please specify) Unable to determine (Last Revision: August 2017) Patient had abnormal EEG as above. Her symptoms are somewhat atypical, but may suggest possibly localization related focal, partial epilepsy. Idiopathic. We are empirically starting her on antiepileptic medication to see if it helps with the episodic symptoms. ELVIA
[2019-09-17 11:36] LABS: Glucose,Whole Blood 120 mg/dL (75-99)
[2019-09-17] MEDS ORDERED: RX INFO: IV CONTRAST WAS GIVEN 1 EACH MISC MISCELLANE PRN (11:42)
--- NOTE | 2019-09-17 11:58 | CDI ---
Documentation Clarification Form Date: 09/17/2019 11:16:31 AM From: Malena Espinosa RN, CCDS Admit Date: 09/14/2019 2:16:00 PM Patient Name: Flaca Hinson Visit Number: [id number] Discharge Date: ATTENTION: The Clinical Documentation Specialists (CDI) and [facility] Coding Staff appreciate your assistance in clarifying documentation. Please respond to the clarification below the line at the bottom and electronically sign. The CDI & [facility] Coding staff will review the response and follow-up if needed. Please note: Queries are made part of the Legal Health Record. If you have any questions, please contact the author of this message via ITS. Dr. Karson Hernandez Atrial Fibrillation on anticoagulation is documented in your consult on 09/14/19 and further clarification is needed. History/Risk Factors: Diabetes type 2, Chronic Systolic heart failure COPD, Hypertension, Cardiac Thrombus Clinical Indicators: 43-year-old female has episodes of mental confusion, disorientation. Past medical history in ER and H/P has not noted atrial fibrillation. Cardiology (Dr. Esquivel) has documented patient was on eliquis for the treatment of cardiac thrombus. EKG/telemetry: Atrial-sensed ventricular-paced rhythm, Biventricular pacemaker detected ECHO: Paced rhythm; Overall left ventricular systolic function is severely impaired with, an EF between 20-25 % Treatment: Telemetry monitoring Cardiology: 09/15/19: History of blood clot and questionable vegetation on CONY, subsequent blood cultures negative, currently anticoagulated with eliquis Attending (Dr. Tejeda) 09/15/19: Patient was here in April of this year with a splenic infarct and also was found to have a cardiac thrombus for which she is on eliquis. In your professional opinion, can you please clarify the type of Atrial Fibrillation, if known? Atrial Fibrillaltion ruled out Atrial Fibrillation ruled in (specify type; Chronic/Permanent, Paroxysmal, Persistent Other, please specify Unable to determine (Last Revision: February 2018) I would suggest forwarding this question to the counselor camp, who is also on board. He would be able to give better answer for this question. ELVIA
--- NOTE | 2019-09-17 12:41 | P.PN ---
Subjective Progress Note Date: 09/17/19 Patient apparently started having problems with speech, talking with very atypical manner, slow scanning speech. At times it almost appears functional/psychogenic. Patient fully observant, could not tell when these symptoms started. Patient states that she is having hard to get words out. States fingers and hand feels numb and tingling. Denies depression. Denies headache. No visual symptoms. No new focal weakness. Objective - Vital Signs Vital signs: Vital Signs Temp 97.9 F 09/17/19 08:20 Pulse 76 09/17/19 08:20 Resp 16 09/17/19 08:20 BP 126/80 09/17/19 08:20 Pulse Ox 97 09/17/19 08:20 Intake & Output 09/16/19 09/17/19 09/17/19 18:59 06:59 18:59 Intake Total 0 340 0 Output Total 800 300 Balance -800 340 -300 Intake: Intake, IV Titration 100 Amount Sodium Chloride 0.9% 1, 100 000 ml @ 100 mls/hr IV . Q10H [facility] Rx#:[id number] Oral 0 240 0 Output: Urine 800 300 Other: # Voids 1 1 - Exam On examination patient is a middle aged female, in no distress. Patient speaks with controlling her tongue, keeping her mouth like O. Some slow scanning speech, but at times appears almost functional/psychogenic. Face is symmetric. Tongue protrudes the midline. Visual nieves are full. Her muscle strength appears normal except left leg which is weak, degenerative which was noticeable on admission also. Plantars cannot be checked because of amputated big toes bilaterally. No obvious ataxia. - Labs CBC & Chem 7: 09/17/19 05:59 09/17/19 05:59 Labs: Abnormal Lab Results - Last 24 Hours (Table) 09/16/19 09/17/19 09/17/19 Range/Units 20:50 05:59 06:36 BUN 26 H (7-17) mg/dL Glucose 125 H (74-99) mg/dL POC Glucose (mg/dL) 148 H 122 H (75-99) mg/dL AST 46 H (14-36) U/L Alkaline Phosphatase 150 H (38-126) U/L Total Protein 8.3 H (6.3-8.2) g/dL 10/21/19 Range/Units 11:35 BUN (7-17) mg/dL Glucose (74-99) mg/dL POC Glucose (mg/dL) 120 H (75-99) mg/dL AST (14-36) U/L Alkaline Phosphatase (38-126) U/L Total Protein (6.3-8.2) g/dL Assessment and Plan Assessment: * Recurrent episodes of atypical neurological symptoms with "weird sensation in the head", confusion, impaired motor skills, balance, unclear etiology. Differential diagnosis is between TIA versus focal seizures, due to abnormal EEG. Patient although is on adequate dose of anticoagulation with Apixaban 5 mg twice a day and aspirin 325 mg. Patient has severe CHF with low ejection fraction. Uncertain if these symptoms are related to poor cardiac output, affecting intermittent global cerebral dysfunction. * Diabetes * Hypertension * CAD * Atrial fibrillation on anticoagulation Plan: * Patient has developed new onset speech difficulty over the weekend. We will check computed tomography scan of the head to rule out any bleed. Patient is on Apixaban 5 mg twice a day and aspirin 325 mg. * We will stop Keppra, uncertain if causing behavioral side effects. I would avoid Trileptal because of her previous incidences of hyponatremia. We will place her on Vimpat 50 mg twice a day. * We will follow.
[2019-09-17] MEDS: LACOSAMIDE 50 MG TABLET PO SCH ×2 (12:58→20:12)
--- NOTE | 2019-09-17 13:00 | P.CON ---
Consult Note - . Consult date: 09/17/19 Assessment/Plan:: 43-year-old female who is known to the wound care center with a nonhealing ulceration to the right plantar forefoot. Patient was seen last week in the wound care center and was ordered collagen and foam to the site. Patient was instructed to be nonweightbearing to that foot. Patient is hospitalized at this time for a separate etiology. Upon examination the ulceration appears nearly healed measuring approximately 0.1 x 0.1 x 0.1. However there is significant amount of serosanguineous drainage noted on sock for 2 separate ulcerations. There is a new area lateral to the previous ulceration that shows eschar no drainage upon examination. Patient states that she has been nonweightbearing has been utilizing her cane and has been hospitalized since Tuesday. Patient does not have a dressing on at this time. Review of systems: Integumentary: Reports lesions, reports drainage, denies any new areas or pruritus Physical exam: Integumentary: See HPI, area shows callus around ulceration. Assessment/plan: 1. Diabetic foot ulcer with fatty layer exposure with pressure component. Continue with collagen, saline moistened gauze, foam, and rolled gauze to secure. Continue with nonweightbearing status to the right plantar forefoot. Upon discharge continue to follow-up with the wound center for further treatment plan. Patient was scheduled for vascular studies of the foot. We will put those on hold at this time until she returns to wound care. 2. Atherosclerosis of peripheral vessels with skin lesion. 3. Obesity Thank you for the consultation. Any questions please contact the wound center. DNP note has been reviewed and discussed with Dr. Miranda and the impression and plan of care has been directed as dictated.
--- NOTE | 2019-09-17 13:03 | CT ---
CT brain w contrast HISTORY: Delayed speech Helical acquisition through the brain following 100 cc Isovue-300 IV. Automated exposure control for dose reduction. DLP 1099.4 mGycm Correlation to prior CT 09/13/2019 FINDINGS: There is no hemorrhage or hydrocephalus. No abnormal enhancement following contrast adminis tration. There is an old left thalamic infarct with encephalomalacia as on prior exam. Orbits show sy mmetric appearance. IMPRESSION: No significant abnormality, no significant interval change. Old left thalamic infarct. No evident abnormal enhancement.
[2019-09-17 16:27] LABS: Glucose,Whole Blood 170 mg/dL (75-99)
--- NOTE | 2019-09-17 18:06 | P.PN ---
Subjective This is Toya Yeh PA-C dictating a progress note on this patient The patient was interviewed and examined by me as well as by Dr. Esquivel Case discussed with Dr. Esquivel and he agrees with the plan of care IMPRESSION / ASSESSMENT: Atypical chest pain, troponins were negative and there are no ST changes on EKG Altered mental status, brain CT showing old left thalamic coronary infarct with no acute abnormality, neurology following Known idiopathic cardiomyopathy, status post biventricular ICD implant, recent echo showed EF 20-25%, appears stable from a heart failure symptoms standpoint lying flat in bed comfortably History of blood clot and questionable vegetation on CONY, subsequent blood cultures negative, repeat echo does not show vegetation Hypertension on the blood pressure well controlled Diabetes Device interrogation showed device at VAIBHAV PLAN: Continue current medication regimen including anticoagulation with eliquis Patient will need a generator change soon HPI Patient is a 43-year-old female with a past medical history significant for idiopathic cardiomyopathy, hypertension, and diabetes who presented with a ltered mental status. Brain CT showed old left thalamic lacunar infarct with no acute abnormality. Device interrogation showed the device was at VAIBHAV. Patient has been v paced on telemetry. Repeat CT repeated today shows no significant abnormality and note no changes. Patient seen and examined resting in bed, laying flat. Still complaining of a headache. She also complains of intermittent stabbing chest pain. Denies any current chest pain. No shortness of breath. EXAMINATION: Patient is afebrile, pulse 85, respirations 16, blood pressure 135/86, oxygen saturation 98% on room air Patient seen and examined lying flat in bed, does not appear to be in respiratory distress Heart is regular, normal S1-S2, no audible murmurs Lungs clear to auscultation bilaterally No lower extremity edema or elevated JVD appreciated REVIEW OF LABS, ECG & MEDICAL DATA Echo showed moderate concentric hypertrophy, EF 20-25%, no mention of vegetation Potassium 5.1, BUN 26, creatinine 0.9 to Objective - Vital Signs Vital signs: Vital Signs Temp 97.9 F 09/17/19 08:20 Pulse 85 09/17/19 11:15 Resp 16 09/17/19 11:15 BP 135/86 09/17/19 11:15 Pulse Ox 98 09/17/19 11:15 Intake & Output 09/16/19 09/17/19 09/17/19 18:59 06:59 18:59 Intake Total 0 340 190 Output Total 800 300 Balance -800 340 -110 Intake: Intake, IV Titration 100 Amount Sodium Chloride 0.9% 1, 100 000 ml @ 100 mls/hr IV . Q10H [facility] Rx#:[id number] Oral 0 240 190 Output: Urine 800 300 Other: # Voids 1 1 - Labs CBC & Chem 7: 09/17/19 05:59 09/17/19 05:59 Labs: Abnormal Lab Results - Last 24 Hours (Table) 09/16/19 09/17/19 09/17/19 Range/Units 20:50 05:59 06:36 BUN 26 H (7-17) mg/dL Glucose 125 H (74-99) mg/dL POC Glucose (mg/dL) 148 H 122 H (75-99) mg/dL AST 46 H (14-36) U/L Alkaline Phosphatase 150 H (38-126) U/L Total Protein 8.3 H (6.3-8.2) g/dL 09/17/19 09/17/19 Range/Units 11:35 16:26 BUN (7-17) mg/dL Glucose (74-99) mg/dL POC Glucose (mg/dL) 120 H 170 H (75-99) mg/dL AST (14-36) U/L Alkaline Phosphatase (38-126) U/L Total Protein (6.3-8.2) g/dL
[2019-09-17 20:39] LABS: Glucose,Whole Blood 147 mg/dL (75-99)
--- NOTE | 2019-09-17 23:00 | P.PN ---
Progress Note - Text Progress Note Date: 09/17/19 Chief Complaint: Acute confusion History of presenting complaint: This is a pleasant 43-year-old patient of Dr. Causey. Chronic stable medical conditions include congestive heart failure EF 20% from hypertensive heart disease, AICD, COPD, diabetes mellitus type 2 on insulin, hypertension, possible seizure disorder, peripheral neuropathy secondary to diabetes and multiple toe amputations.. Patient was here in April of this year with a splenic infarct and also was found to have a cardiac thrombus for which she is on eliquis. She did have a CONY. Patient was doing fine at home. When she first noticed some discomfort in the left arm, and she developed some anterior chest wall pain. Then she developed a headache and started feeling unwell. Patient started getting foggy in the brain in the eyes. Speech became slurred. Became weak all over. And she was sent in by the family. She feels a bit better earlier when I saw her but not back to baseline. Neurology was consulted.. Patient had multiple of these presentations. With extensive workup. All been negative. Initial no obvious self resolving. Patient seen by Dr. Esquivel from cardiology.. Patient was soon need a generator change. Neurological workup has been negative. Patient's EEG though did show evidence of intermittent bitemporal slowing. Keppra 500 mg twice a day was started by neurology. patient continued to have neurological episodes of slurring of speech facial asymmetry tired and lethargic and that seemed to fluctuate. Over the weekend I double the dose of Keppra increased to 2 1000 mg twice a day. Today-patient still having the same neurological symptoms. Earlier neurology did order a computed tomography scan of the brain. Stopped the Keppra. Admitted Vimpat Review of systems: Was done for constitutional, cardiovascular, GI, pulmonary. Neurology, relevant finding as above Active Medications Acetaminophen (Tylenol Tab) 650 mg PO Q6HR PRN PRN Reason: Fever and/ or Mild Pain Last Admin: 09/17/19 17:35 Dose: 650 mg Documented by: Apixaban (Eliquis) 5 mg PO BID [facility] Last Admin: 09/17/19 20:12 Dose: 5 mg Documented by: Aspirin (Aspirin) 81 mg PO DAILY [facility] Last Admin: 09/17/19 10:06 Dose: 81 mg Documented by: Atorvastatin Calcium (Lipitor) 80 mg PO DAILY [facility] Last Admin: 09/17/19 10:07 Dose: 80 mg Documented by: Carvedilol (Coreg) 6.25 mg PO BID-W/MEALS [facility] Last Admin: 09/17/19 17:35 Dose: 6.25 mg Documented by: Furosemide (Lasix) 80 mg PO BID [facility] Last Admin: 09/17/19 20:12 Dose: 80 mg Documented by: Gabapentin (Neurontin) 600 mg PO TID [facility] Last Admin: 09/17/19 20:12 Dose: 600 mg Documented by: Insulin Aspart (Novolog) 0 unit SQ AC-TID [facility]; Protocol Last Admin: 09/17/19 17:36 Dose: 2 unit Documented by: Insulin Detemir (Levemir) 40 unit SQ DAILY@0700 [facility] Last Admin: 09/17/19 06:46 Dose: 40 unit Documented by: Lacosamide (Vimpat) 50 mg PO BID [facility] Last Admin: 09/17/19 20:12 Dose: 50 mg Documented by: Lisinopril (Zestril) 2.5 mg PO DAILY [facility] Last Admin: 09/17/19 10:07 Dose: 2.5 mg Documented by: Miscellaneous Information (Rx Info: Iv Contrast Was Given) 1 each MISCELLANE DAILY PRN PRN Reason: Per Protocol Stop: 09/19/19 11:43 Sertraline HCl (Zoloft) 25 mg PO DAILY [facility] Last Admin: 09/17/19 10:07 Dose: 25 mg Documented by: Spironolactone (Aldactone) 25 mg PO BID [facility] Last Admin: 09/17/19 20:12 Dose: 25 mg Documented by: Physical examination: VITAL SIGNS: 97.9, 76, 16, 126/80, 97% on room air GENERAL: Laying in bed, speech slurred eyes rolling up speaking slowly EYES: Pupils equal. Conjunctiva normal. HEENT: External appearance of nose and ears normal, oral cavity grossly normal. NECK: JVD not raised; masses not palpable. HEART: First and second heart sounds are normal; no edema. LUNGS: Respiratory rate normal; decreased breath sounds. ABDOMEN: Soft, nontender, liver spleen not palpable, no masses palpable. PSYCH: Lethargic able to answer question, speech slurred eyes rolling up decreased sensorium. AO 3 NEUROLOGICAL: Lethargic, speech is slow slurred, decreased sensorium INVESTIGATIONS, reviewed in the clinical context: White count 8.2 hemoglobin 12.9 potassium 5.1 crit 0.9 to Computed tomography scan of brain-negative for stroke Previous testing White count 8.7 hemoglobin 11.4 platelets 322 potassium 4. 06/28/2021 and crit 0.89 EKG tracing personally reviewed by me-atrial paced rhythm CT brain-old left-sided thalamic lacunar infarct EEG done on August 21-normal Carotid Doppler on July 26-no significant stenosis AICD-interrogation shows end-of-life battery Assessment: -A presentation that comprises of decreased sensorium some chest pain, no focal symptoms, with repeated workup in the past being negative. Wonder if it's related to hold normal pacemaker function. Causing decreased cerebral perfusion. Possible seizure disorder. Patient does of Keppra was increased. No change. Neurology has now discontinued the Keppra. Start the patient now onVimpat. Not improving/worsening -Chronic congestive heart failure from systolic dysfunction EF 20% from hypertensive heart disease. 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 -Baseline some dysarthria Plan: Discussed at length with the patient. See how the patient does with the new antiseizure medication. It may be noted that there is no focal that is one- sided presentation. Patient is generalized loss of sensorium though she is AO 3. Wonder if this is seizure activity. Follow with neurology.
[2019-09-18 06:09] LABS: Glucose,Whole Blood 104 mg/dL (75-99)
[2019-09-18 06:13] VITALS: TEMP 97.6
[2019-09-18] MEDS: INSULIN ASPART (NovoLOG) 100 UNIT/ML VIAL SQ SCH ×3 (06:57→16:37)
[2019-09-18] MEDS: CARVEDILOL 6.25 MG TAB PO SCH (06:57)
[2019-09-18] MEDS: INSULIN DETEMIR (LEVEMIR) 100 UNIT/ML SYR SQ SCH (06:57)
[2019-09-18] MEDS: GABAPENTIN 300 MG CAP PO SCH ×2 (09:34→16:41)
[2019-09-18] MEDS: LISINOPRIL 2.5 MG TAB PO SCH (09:34)
[2019-09-18] MEDS: SPIRONOLACTONE 25 MG TAB PO SCH (09:34)
[2019-09-18] MEDS: ASPIRIN 81 MG PO SCH (09:34)
[2019-09-18] MEDS: SERTRALINE 25 MG TAB PO SCH (09:34)
[2019-09-18] MEDS: ATORVASTATIN 80 MG TAB PO SCH (09:34)
[2019-09-18] MEDS: LACOSAMIDE 50 MG TABLET PO SCH ×2 (09:34→16:36)
[2019-09-18] MEDS: FUROSEMIDE 80 MG TAB PO SCH (09:34)
[2019-09-18] MEDS: APIXABAN 5 MG TAB PO SCH (09:34)
[2019-09-18 09:37] VITALS: RESP 16
[2019-09-18 11:30] LABS: Glucose,Whole Blood 128 mg/dL (75-99)
--- NOTE | 2019-09-18 12:14 | P.PN ---
Subjective Progress Note Date: 09/18/19 Patient is a 43-year-old female with a past medical history significant for idiopathic cardiomyopathy, hypertension, and diabetes who presented with altered mental status. Brain CT showed old left thalamic lacunar infarct with no acute abnormality. Device interrogation showed the device was at VAIBHAV. Elmer yost was seen and examined this morning, sitting up in the chair bedside, denied any chest discomfort, breathing is stable. Blood pressure 122/60 with a heart rate in the 70s, 97% on room air. No lab data today. Objective - Vital Signs Vital signs: Vital Signs Temp 97.6 F 09/18/19 04:00 Pulse 72 09/18/19 08:00 Resp 16 09/18/19 11:47 BP 122/59 09/18/19 08:00 Pulse Ox 97 09/18/19 08:00 Intake & Output 09/17/19 09/18/19 09/18/19 18:59 06:59 18:59 Intake Total 190 240 Output Total 300 600 Balance -110 -360 Weight 104.5 kg Intake: Oral 190 240 Output: Urine 300 600 Other: # Voids 1 1 2 - Exam Patient is afebrile, pulse 72, respirations 16, blood pressure 122/60 , oxygen saturation 98% on room air Patient seen and examined lying flat in bed, does not appear to be in respiratory distress Heart is regular, normal S1-S2, no audible murmurs Lungs clear to auscultation bilaterally No lower extremity edema or elevated JVD appreciated - Labs CBC & Chem 7: 09/17/19 05:59 09/17/19 05:59 Labs: Abnormal Lab Results - Last 24 Hours (Table) 09/17/19 09/17/19 09/18/19 Range/Units 16:26 20:37 06:07 POC Glucose (mg/dL) 170 H 147 H 104 H (75-99) mg/dL 09/18/19 Range/Units 11:27 POC Glucose (mg/dL) 128 H (75-99) mg/dL Assessment and Plan Plan: Assessment and plan #1 Atypical chest pain, troponins were negative and there are no ST changes on EKG #2 Altered mental status, brain CT showing old left thalamic coronary infarct with no acute abnormality, neurology following #3 Known idiopathic cardiomyopathy, status post biventricular ICD implant, recent echo showed EF 20-25%, appears stable from a heart failure symptoms standpoint lying flat in bed comfortably #4 History of blood clot and questionable vegetation on CONY, subsequent blood cultures negative, repeat echo does not show vegetation #5 Hypertension on the blood pressure well controlled #6 Diabetes #7 Device interrogation showed device at VAIBHAV #8 hyperlipidemia Plan From cardiology's perspective, the patient may be able to be discharged home once cleared by primary. A follow-up appointment will be made with Dr. VC Roldan in the office post discharge. DNP note has been reviewed, I agree with a documented findings and plan of care. Patient was seen and examined.
[2019-09-18 12:22] VITALS: BP 122/56; PULSE 85
--- NOTE | 2019-09-18 12:37 | P.PN ---
Subjective Progress Note Date: 09/18/19 Patient states she is feeling better. Her speech has improved, as well as her vision. She is opening her eyes more normally. Still try to draw her face/mouth downwards bilaterally. Patient talks very functional manner. Denies depression. Denies headache. No visual symptoms. No new focal weakness. Objective - Vital Signs Vital signs: Vital Signs Temp 97.6 F 09/18/19 04:00 Pulse 85 09/18/19 12:00 Resp 16 09/18/19 12:00 BP 122/56 09/18/19 12:00 Pulse Ox 97 09/18/19 12:00 Intake & Output 09/17/19 09/18/19 09/18/19 18:59 06:59 18:59 Intake Total 190 240 Output Total 300 600 Balance -110 -360 Weight 104.5 kg Intake: Oral 190 240 Output: Urine 300 600 Other: # Voids 1 1 2 - Exam On examination patient is a middle aged female, in no distress. Patient at times speaks normally and other times speaks with contorting her tongue, keeping her mouth like O. her speech appears better. She is more alert and awake, and opening eyes more normally. When I mentioned about improvement, patient started speaking and closing her eyes in a functional pattern. Face is symmetric. Tongue protrudes the midline. Visual nieves are full. Her muscle strength appears normal except left leg which is weak, which was noticeable on admission also. Plantars cannot be checked because of amputated big toes bilaterally. No obvious ataxia. - Labs CBC & Chem 7: 09/17/19 05:59 09/17/19 05:59 Labs: Abnormal Lab Results - Last 24 Hours (Table) 09/17/19 09/17/19 09/18/19 Range/Units 16:26 20:37 06:07 POC Glucose (mg/dL) 170 H 147 H 104 H (75-99) mg/dL 09/18/19 Range/Units 11:27 POC Glucose (mg/dL) 128 H (75-99) mg/dL Assessment and Plan Assessment: * Recurrent episodes of atypical neurological symptoms with "weird sensation in the head", confusion, impaired motor skills, balance, unclear etiology. Differential diagnosis is between TIA versus focal seizures. * Abnormal EEG, rule out complex partial seizures. * TIA appears Slightly, as patient is on adequate dose of anticoagulation with A pixaban 5 mg twice a day and aspirin 325 mg. Patient has severe CHF with low ejection fraction. Uncertain if these symptoms are related to poor cardiac output, affecting intermittent global cerebral dysfunction. * Diabetes * Hypertension * CAD * Atrial fibrillation on anticoagulation Plan: * Continue Vimpat 50 mg twice a day. * CT head negative for any acute process, no bleed. * Continue Apixaban 5 mg twice a day and aspirin 325 mg. * Patient is neurologically clear for discharge. May follow up with a her neurologist, Dr. Callahan as outpatient within 1-2 weeks.
[2019-09-18 16:23] LABS: Glucose,Whole Blood 130 mg/dL (75-99)
--- NOTE | 2019-09-23 01:03 | P.DS ---
Providers Date of admission: 09/14/19 14:16 Expected date of discharge: 09/18/19 Attending physician: Kimo Tejeda Consults: 09/13/19 19:26 Consult Physician Routine Consulting Provider: Karson Hernandez Consult Reason/Comments: ams Do you want consulting provider notified?: Yes 09/14/19 17:32 Consult Physician Routine Consulting Provider: Fran Esquivel Consult Reason/Comments: Pacemaker check Do you want consulting provider notified?: Yes [facility]: Chief Complaint: Acute confusion History of presenting complaint: This is a pleasant 43-year-old patient of Dr. Causey. Chronic stable medical conditions include congestive heart failure EF 20% from hypertensive heart disease, AICD, COPD, diabetes mellitus type 2 on insulin, hypertension, possible seizure disorder, peripheral neuropathy secondary to diabetes and multiple toe amputations.. Patient was here in April of this year with a splenic infarct and also was found to have a cardiac thrombus for which she is on eliquis. She did have a [place]. Patient was doing fine at home. When she first noticed some discomfort in the left arm, and she developed some anterior chest wall pain. Then she developed a headache and started feeling unwell. Patient started getting foggy in the brain in the eyes. Speech became slurred. Became weak all over. And she was sent in by the family. She feels a bit better earlier when I saw her but not back to baseline. Neurology was consulted.. Patient had multiple of these presentations. With extensive workup. All been negative. Initial no obvious self resolving. Patient seen by Dr. Esquivel from cardiology.. Patient was soon need a generator change. Patient's EEG though did show evidence of intermittent bitemporal slowing. Keppra 500 mg twice a day was started by neurology. patient continued to have neurological episodes of slurring of speech facial asymmetry tired and lethargic and that seemed to fluctuate. Over the weekend dose of Keppra increased to 1000 mg twice a day. Dr. Doll did decided to switch to Keppra to Vimpat. Patient's symptoms did seem to improve, but patient still h aving some symptoms before discharge. This was discussed with Dr. Doll. He clear the patient to be discharged. Patient very keen to go home. Consultation: Dr. Doll from neurology Dr. Fran Esquivel from cardiology Physical examination: VITAL SIGNS: Afebrile, 85, 16, 122/56, 97% room air GENERAL: Sitting on a chair, for more awake, communicating getting better EYES: Pupils equal. Conjunctiva normal. HEENT: External appearance of nose and ears normal, oral cavity grossly normal. NECK: JVD not raised; masses not palpable. HEART: First and second heart sounds are normal; no edema. LUNGS: Respiratory rate normal; decreased breath sounds. ABDOMEN: Soft, nontender, liver spleen not palpable, no masses palpable. PSYCH: Depressed lethargic. More awake, AO 3 NEUROLOGICAL: Lethargic, speech is slow slurred, decreased sensorium INVESTIGATIONS, reviewed in the clinical context: White count 8.2 hemoglobin 12.9 potassium 5.1 crit 0.9 to Previous testing White count 8.7 hemoglobin 11.4 platelets 322 potassium 4. 06/28/2021 and crit 0.89 EKG tracing personally reviewed by me-atrial paced rhythm CT brain-old left-sided thalamic lacunar infarct EEG done on August 21-normal Carotid Doppler on July 26-no significant stenosis AICD-interrogation shows end-of-life battery Computed tomography scan of brain-negative for stroke Assessment: -Possible epilepsy being the cause of patient's presentation -Chronic congestive heart failure from systolic dysfunction EF 20% from hypertensive heart disease. 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 -Baseline some dysarthria Plan: Disposition home. Patient advised against driving. Not allowed to drive until further notice.. Will follow up with her neurologist as an outpatient. Patient Condition at Discharge: Stable Plan - Discharge Summary New Discharge Prescriptions: New Aspirin 81 mg PO DAILY chew Lacosamide [Vimpat] 50 mg PO BID #60 tablet Continue Gabapentin [Neurontin] 600 mg PO TID #90 tablet INSULIN ASPART (NovoLOG) [NovoLOG (formulary)] See Protocol SQ AC-TID Insulin Glargine [Lantus] 40 unit SQ DAILY Lisinopril [Zestril] 2.5 mg PO DAILY #30 tab Spironolactone [Aldactone] 25 mg PO BID Carvedilol [Coreg] 6.25 mg PO BID Atorvastatin [Lipitor] 80 mg PO DAILY Apixaban [Eliquis] 5 mg PO BID Furosemide [Lasix] 80 mg PO BID acetaZOLAMIDE [Diamox Sequels] 500 mg PO BID Sertraline [Zoloft] 25 mg PO DAILY Discharge Medication List Gabapentin [Neurontin] 600 mg PO TID #90 tablet 01/09/19 [Rx] INSULIN ASPART (NovoLOG) [NovoLOG (formulary)] See Protocol SQ AC-TID 04/30/19 [History] Insulin Glargine [Lantus] 40 unit SQ DAILY 04/30/19 [History] Lisinopril [Zestril] 2.5 mg PO DAILY #30 tab 05/04/19 [Rx] Atorvastatin [Lipitor] 80 mg PO DAILY 07/26/19 [History] Carvedilol [Coreg] 6.25 mg PO BID 07/26/19 [History] Spironolactone [Aldactone] 25 mg PO BID 07/26/19 [History] Apixaban [Eliquis] 5 mg PO BID 07/27/19 [History] Furosemide [Lasix] 80 mg PO BID 08/20/19 [History] acetaZOLAMIDE [Diamox Sequels] 500 mg PO BID 08/20/19 [History] Sertraline [Zoloft] 25 mg PO DAILY 09/13/19 [History] Aspirin 81 mg PO DAILY chew 09/18/19 [Rx] Lacosamide [Vimpat] 50 mg PO BID #60 tablet 09/18/19 [Rx] Follow up Appointment(s)/Referral(s): Handy Callahan MD [STAFF PHYSICIAN] - 09/27/19 3:00 pm Dylan Causey MD [Primary Care Provider] - 09/24/19 9:20 am [facility], [NON-STAFF] - El Roldan MD [STAFF PHYSICIAN] - 09/20/19 3:00 pm (Please keep previous follow up appointment. ) Patient Instructions/Handouts: Recurrent Seizures in Adults (DC), Stroke (DC) Activity/Diet/Wound Care/Special Instructions: Do not drive an automobile, operative heavy machinery, climb ladders, or swim unsupervised for 6 months. This is a safety precaution for seizures. Discharge Disposition: HOME WITH HOME HEALTH SERVICES
== END 2019-09-18 16:47 | disposition home health service (06) | DRG 101 ==
LOC: EC 16:38 → 3SCARD 19:25 → OBSVTOIN 09-14 14:16
PROVIDERS: ADMIT Hospitalist; ATTEND Hospitalist
PROC: 4B02XTZ Measurement of Cardiac Defibrillator, External Approach (ICD-10-PCS; principal; 2019-09-15)
DX: G40.109 Localization-related (focal) (partial) symptomatic epilepsy and epileptic syndromes with simple partial seizures, not intractable, without status epilepticus (principal); G45.9 Transient cerebral ischemic attack, unspecified; I42.8 Other cardiomyopathies; I50.22 Chronic systolic (congestive) heart failure; E11.42 Type 2 diabetes mellitus with diabetic polyneuropathy; E11.621 Type 2 diabetes mellitus with foot ulcer; I11.0 Hypertensive heart disease with heart failure; E11.51 Type 2 diabetes mellitus with diabetic peripheral angiopathy without gangrene; L97.512 Non-pressure chronic ulcer of other part of right foot with fat layer exposed; I48.91 Unspecified atrial fibrillation; E66.9 Obesity, unspecified; E78.5 Hyperlipidemia, unspecified; I25.10 Atherosclerotic heart disease of native coronary artery without angina pectoris; I25.2 Old myocardial infarction; J44.9 Chronic obstructive pulmonary disease, unspecified; F32.9 Major depressive disorder, single episode, unspecified; R07.89 Other chest pain; R47.1 Dysarthria and anarthria; F41.9 Anxiety disorder, unspecified; Z79.01 Long term (current) use of anticoagulants; Z79.4 Long term (current) use of insulin; Z79.82 Long term (current) use of aspirin; Z79.899 Other long term (current) drug therapy; Z88.0 Allergy status to penicillin; Z88.8 Allergy status to other drugs, medicaments and biological substances; R29.704 NIHSS score 4; Z95.810 Presence of automatic (implantable) cardiac defibrillator; Z87.01 Personal history of pneumonia (recurrent); Z86.73 Personal history of transient ischemic attack (TIA), and cerebral infarction without residual deficits; Z91.19 Patient's noncompliance with other medical treatment and regimen; Z86.718 Personal history of other venous thrombosis and embolism; Z89.432 Acquired absence of left foot; Z89.411 Acquired absence of right great toe; Z89.421 Acquired absence of other right toe(s); Z87.891 Personal history of nicotine dependence; Z68.35 Body mass index [BMI] 35.0-35.9, adult; Z86.14 Personal history of Methicillin resistant Staphylococcus aureus infection; Z82.49 Family history of ischemic heart disease and other diseases of the circulatory system; Z84.1 Family history of disorders of kidney and ureter
CPT/HCPCS: 36415; 70450; 70460; 80048; 80053; 80061; 82550; 83735; 84484; 85025; 85027; 85610; 85652; 85730; 93005; 93306; 94760; 95816; 96360; 96361; 99285

== ENCOUNTER 2019-09-24 10:06 | Emergency (ER) | payer MEDICARE ==
[2019-09-24 10:31] VITALS: TEMP 97.8
--- NOTE | 2019-09-24 11:32 | ED ---
General Adult HPI - General Chief complaint: Neuro Symptoms/Deficit Stated complaint: Headache/confusion Time Seen by Provider: 09/24/19 10:30 Source: patient, RN notes reviewed, old records reviewed Mode of arrival: EMS Limitations: no limitations - History of Present Illness Initial comments: This is a 43-year-old female with past history significant for diabetes seizures and possible strokes. Patient comes in today because she states while at the doctor's office she had an episode where she had a right-sided headache and then had some confusion for a minute or so. Patient states this is been ongoing problem with her for years. Patient states started couple years ago and it is more recently become more frequent but it is nothing new. Patient states she does not want to be in the ER should like to go home she has an appointment with a neurologist on and she will follow-up with him. Patient denies headache patient denies any numbness or weakness currently patient denies any chest pain difficult breathing shortest breath per patient denies any recent fever chills or cough. Patient denies abdominal pain. Patient denies any slurred speech or visual changes currently. - Related Data Home Medications Medication Instructions Recorded Confirmed INSULIN ASPART (NovoLOG) [NovoLOG See Protocol SQ AC-TID 04/30/19 09/24/19 (formulary)] Insulin Glargine [Lantus] 40 unit SQ DAILY 04/30/19 09/24/19 Atorvastatin [Lipitor] 80 mg PO DAILY 07/26/19 09/24/19 Carvedilol [Coreg] 6.25 mg PO BID 07/26/19 09/24/19 Spironolactone [Aldactone] 25 mg PO BID 07/26/19 09/24/19 Apixaban [Eliquis] 5 mg PO BID 07/27/19 09/24/19 Furosemide [Lasix] 80 mg PO BID 08/20/19 09/24/19 acetaZOLAMIDE [Diamox Sequels] 500 mg PO BID 08/20/19 09/24/19 Sertraline [Zoloft] 25 mg PO DAILY 09/13/19 09/24/19 Previous Rx's Medication Instructions Recorded Gabapentin [Neurontin] 600 mg PO TID #90 tablet 01/09/19 Lisinopril [Zestril] 2.5 mg PO DAILY #30 tab 05/04/19 Aspirin 81 mg PO DAILY chew 09/18/19 Lacosamide [Vimpat] 50 mg PO BID #60 tablet 09/18/19 Allergies Allergy/AdvReac Type Severity Reaction Status Date / Time Penicillins Allergy Rash/Hives Verified 09/24/19 10:57 ondansetron [From Zofran] AdvReac Nausea & Verified 09/24/19 10:57 Vomiting Review of Systems ROS Statement: Those systems with pertinent positive or pertinent negative responses have been documented in the HPI. ROS Other: All systems not noted in ROS Statement are negative. Past Medical History Past Medical History: Asthma, Heart Failure, COPD, CVA/TIA, Diabetes Mellitus, Hypertension, Myocardial Infarction ([place]), Pneumonia, Seizure Disorder, Seizure Disorder Additional Past Medical History / Comment(s): uses a cane. Last seizure unknown Last Myocardial Infarction Date:: 06/2018 History of Any Multi-Drug Resistant Organisms: MRSA, VRE, VRE Date of last positivie culture/infection: 2016 MDRO Source:: bilat feet Past Surgical History: Adenoidectomy, AICD, Section, Heart Catheterization, Orthopedic Surgery, Pacemaker, Tonsillectomy Additional Past Surgical History / Comment(s): AICD - [employer]. has pacemaker defibrillator, right all toe amputated 04/2016, LT GREAT TOE then left foot partial amputation Past Anesthesia/Blood Transfusion Reactions: Postoperative Nausea & Vomiting (PONV) Type of Cardiac Device: Biventricular Pacemaker, Permanent Pacemaker, AICD Device Placement Date:: 2011 Past Psychological History: Bipolar Smoking Status: Former smoker Past Alcohol Use History: None Reported Past Drug Use History: None Reported - Past Family History Mother Family Medical History: Deep Vein Thrombosis (DVT) Additional Family Medical History / Comment(s): Some type of heart problems, kidney failure. Father History Unknown: Yes Family Medical History: Unable to Obtain Additional Family Medical History / Comment(s): Patient denies knowing any medical history on her father. General Exam - General Exam Comments Initial Comments: GENERAL: Patient is well-developed and well-nourished. Patient is nontoxic and well-hydrated and is in no acute distress. ENT: Neck is soft and supple. No significant lymphadenopathy is noted. Oropharynx is clear. Moist mucous membranes. Neck has full range of motion without eliciting any pain. EYES: The sclera were anicteric and conjunctiva were pink and moist. Extraocular mov ements were intact and pupils were equal round and reactive to light. Eyelids were unremarkable. PULMONARY: Unlabored respirations. Good breath sounds bilaterally. No audible rales rhonchi or wheezing was noted. CARDIOVASCULAR: There is a regular rate and rhythm without any murmurs gallops or rubs. ABDOMEN: Soft and nontender with normal bowel sounds. No palpable organomegaly was noted. There is no palpable pulsatile mass. SKIN: Skin is clear with no lesions or rashes and otherwise unremarkable. NEUROLOGIC: Patient is alert and oriented x3. Cranial nerves II through XII are grossly intact. Motor and sensory are also intact. Normal speech, volume and content. Symmetrical smile. MUSCULOSKELETAL: Patient has had a partial amputation of the left foot. LYMPHATICS: No significant lymphadenopathy is noted PSYCHIATRIC: Normal psychiatric evaluation. Normal interpersonal interactions appears functionally intact in deals appropriately with others. No signs of depression. No signs of anxiety. No delusions. No hallucinations. Limitations: no limitations Course Vital Signs 09/24/19 09/24/19 09/24/19 10:26 11:00 11:30 Temperature 97.8 F Pulse Rate 71 81 66 Respiratory 18 22 18 Rate Blood Pressure 139/81 148/78 138/82 O2 Sat by Pulse 100 94 L 96 Oximetry 09/24/19 12:00 Temperature Pulse Rate 72 Respiratory 18 Rate Blood Pressure 132/71 O2 Sat by Pulse 94 L Oximetry Medical Decision Making - Medical Decision Making Patient did not want a CAT scan patient also had 2 CAT scans already this month EKG shows a paced rhythm at [address] interval is 224 QRS is 114 QT interval 470 QTC is 477. Patient's EKG shows no ST segment elevation or depression or T wave abnormalities are noted. Patient was asymptomatic throughout the ED course. Patient did not want any further workup she was requesting to go home at this time. - Lab Data Result diagrams: 09/24/19 10:30 09/24/19 10:30 Lab Results 09/24/19 09/24/19 Range/Units 10:30 10:30 WBC 9.6 (3.8-10.6) k/uL RBC 4.83 (3.80-5.40) m/uL Hgb 12.6 (11.4-16.0) gm/dL Hct 39.0 (34.0-46.0) % MCV 80.8 (80.0-100.0) fL MCH 26.2 (25.0-35.0) pg MCHC 32.4 (31.0-37.0) g/dL RDW 14.7 (11.5-15.5) % Plt Count 274 (150-450) k/uL Neutrophils % 73 % Lymphocytes % 17 % Monocytes % 4 % Eosinophils % 3 % Basophils % 0 % Neutrophils # 7.0 (1.3-7.7) k/uL Lymphocytes # 1.6 (1.0-4.8) k/uL Monocytes # 0.4 (0-1.0) k/uL Eosinophils # 0.3 (0-0.7) k/uL Basophils # 0.0 (0-0.2) k/uL Hypochromasia Slight Sodium 140 (137-145) mmol/L Potassium 3.9 (3.5-5.1) mmol/L Chloride 103 (98-107) mmol/L Carbon Dioxide 25 (22-30) mmol/L Anion Gap 12 mmol/L BUN 12 (7-17) mg/dL Creatinine 0.84 (0.52-1.04) mg/dL Est GFR (CKD-EPI)AfAm >90 (>60 ml/min/1.73 sqM) Est GFR (CKD-EPI)NonAf 84 (>60 ml/min/1.73 sqM) Glucose 150 H (74-99) mg/dL Calcium 9.2 (8.4-10.2) mg/dL Magnesium 1.8 (1.6-2.3) mg/dL Total Bilirubin 0.4 (0.2-1.3) mg/dL AST 23 (14-36) U/L ALT 18 (9-52) U/L Alkaline Phosphatase 156 H (38-126) U/L Total Protein 7.7 (6.3-8.2) g/dL Albumin 4.3 (3.5-5.0) g/dL Disposition Clinical Impression: Transient alteration of awareness Disposition: HOME SELF-CARE Condition: Good Additional Instructions: Patient should follow-up with her neurologist on as previously scheduled. Patient should return to emergency department there are any new or worsening symptoms. Is patient prescribed a controlled substance at d/c from ED?: No Referrals: Dylan Causey MD [Primary Care Provider] - 1-2 days Time of Disposition: 12:22
[2019-09-24 11:56] LABS: Basophils % (A) 0 %; Eosinophils # (A) 0.3 k/uL (0-0.7); Eosinophils % (A) 3 %; HGB 12.6 gm/dL (11.4-16.0); Hypochromasia Slight; Lymphocytes # (A) 1.6 k/uL (1.0-4.8); Lymphocytes % (A) 17 %; MCH 26.2 pg (25.0-35.0); MCHC 32.4 g/dL (31.0-37.0); MCV 80.8 fL (80.0-100.0); Mean Platelet Volume 7.3; Monocytes # (A) 0.4 k/uL (0-1.0); Monocytes % (A) 4 %; Neutrophils % (A) 73 %; Platelet Count 274 k/uL (150-450); RBC 4.83 m/uL (3.80-5.40); RDW 14.7 % (11.5-15.5); WBC 9.6 k/uL (3.8-10.6)
[2019-09-24 12:04] VITALS: RESP 18
[2019-09-24 12:17] LABS: ALT 18 U/L (9-52); AST 23 U/L (14-36); African American GFR (CKD) >90 (>60 ml/min/1.73 sqM); Albumin 4.3 g/dL (3.5-5.0); Alkaline Phosphatase 156 U/L (38-126); Anion Gap 12 mmol/L; Blood Urea Nitrogen 12 mg/dL (7-17); Calcium 9.2 mg/dL (8.4-10.2); Carbon Dioxide 25 mmol/L (22-30); Chloride 103 mmol/L (98-107); Glucose 150 mg/dL (74-99); Magnesium 1.8 mg/dL (1.6-2.3); Potassium 3.9 mmol/L (3.5-5.1); Sodium 140 mmol/L (137-145); Total Bilirubin 0.4 mg/dL (0.2-1.3); Total Protein 7.7 g/dL (6.3-8.2)
[2019-09-24 12:27] VITALS: BP 137/87; PULSE 62
== END 2019-09-24 12:29 | disposition home or self-care (01) ==
LOC: EC 10:06
DX: R40.4 Transient alteration of awareness (principal); E11.9 Type 2 diabetes mellitus without complications; I25.2 Old myocardial infarction; I11.0 Hypertensive heart disease with heart failure; I50.9 Heart failure, unspecified; F31.9 Bipolar disorder, unspecified; Z79.4 Long term (current) use of insulin; Z79.01 Long term (current) use of anticoagulants; Z79.899 Other long term (current) drug therapy; Z88.0 Allergy status to penicillin; Z88.8 Allergy status to other drugs, medicaments and biological substances; Z86.73 Personal history of transient ischemic attack (TIA), and cerebral infarction without residual deficits; Z99.89 Dependence on other enabling machines and devices; Z87.891 Personal history of nicotine dependence; Z89.422 Acquired absence of other left toe(s); Z86.14 Personal history of Methicillin resistant Staphylococcus aureus infection; Z86.69 Personal history of other diseases of the nervous system and sense organs
CPT/HCPCS: 36415; 80053; 83735; 85025; 93005; 99285

== ENCOUNTER 2019-12-09 20:06 | Emergency (ER) | payer MEDICARE ==
[2019-12-09 20:17] VITALS: RESP 18
[2019-12-09 21:08] LABS: Basophils # (A) 0.1 k/uL (0-0.2); Basophils % (A) 1 %; Eosinophils # (A) 0.5 k/uL (0-0.7); Eosinophils % (A) 5 %; Hypochromasia Marked; Lymphocytes # (A) 1.5 k/uL (1.0-4.8); Lymphocytes % (A) 16 %; MCH 24.1 pg (25.0-35.0); MCHC 31.2 g/dL (31.0-37.0); MCV 77.3 fL (80.0-100.0); Mean Platelet Volume 7.7; Monocytes # (A) 0.4 k/uL (0-1.0); Monocytes % (A) 4 %; Neutrophils # (A) 6.7 k/uL (1.3-7.7); Neutrophils % (A) 71 %; Platelet Count 267 k/uL (150-450); Poikilocytosis Slight; RBC 4.14 m/uL (3.80-5.40); RDW 14.6 % (11.5-15.5); WBC 9.4 k/uL (3.8-10.6)
--- NOTE | 2019-12-09 21:09 | XR ---
EXAMINATION TYPE: XR chest 2V DATE OF EXAM: 12/09/2019 COMPARISON: 08/22/2019 HISTORY: Chest pain TECHNIQUE: FINDINGS: There is no heart failure. There is linear density in the left lower lobe. There is left ax illary pacemaker. Bony thorax is intact. IMPRESSION: There is scarring or subsegmental atelectasis left lower lobe increased compared to old e xam. No heart failure.
--- NOTE | 2019-12-09 21:12 | XR ---
EXAMINATION TYPE: XR foot complete RT DATE OF EXAM: 12/09/2019 COMPARISON: 06/10/2017 HISTORY: Diabetes. Foot ulcer TECHNIQUE: 3 views FINDINGS: There is some soft tissue swelling of the forefoot. There is amputation of the big toe at t he MP joints level. There is narrowing and cystic change at the second MP joint. I see no acute fract ure nor dislocation. There are plantar and Achilles calcaneal spurs. IMPRESSION: Calcaneal spurring. Soft tissue swelling. No definite sign of osteomyelitis. No adverse c hange compared to old exam.
[2019-12-09 21:16] LABS: INR 0.9 (<1.2); Partial Thromboplastin Time 26.6 sec (22.0-30.0)
[2019-12-09 21:27] LABS: Albumin 3.8 g/dL (3.5-5.0); Calcium 8.3 mg/dL (8.4-10.2); Magnesium 1.9 mg/dL (1.6-2.3); Potassium 4.1 mmol/L (3.5-5.1); Total Bilirubin 0.4 mg/dL (0.2-1.3)
--- NOTE | 2019-12-09 21:45 | ED ---
General Adult HPI - General Chief complaint: Shortness of Breath Stated complaint: Foot ulcer Time Seen by Provider: 12/09/19 20:18 Source: patient, RN notes reviewed, old records reviewed Mode of arrival: wheelchair Limitations: no limitations - History of Present Illness Initial comments: 44-year-old female patient with extensive past history including cardiomyopathy, congestive heart failure with ejection fraction of 20%, asthma, COPD since the ED with chief complaint of right foot ulcer. Patient also reports that she has some dyspnea with exertion. Denies any chest pain or shortness of breath at rest. Also complains of a mild cough. Patient is anticoagulated on eliquis. Denies any other complaints at this time. Systemic: Pt denies fatigue, fever/chills, rash. Pt denies weakness, night sweats, weight loss. Neuro: Pt denies headache, visual disturbances, syncope or pre-syncope. HEENT: Pt denies ocular discharge or irritation, otalgia, rhinorrhea, pharyngitis or notable lymphadenopathy. Cardiopulmonary: Pt denies chest pain, heart palpitations, dyspnea on exertion. Abdominal/GI: Pt denies abdominal pain, n/v/d. : Pt denies dysuria, burning w/ urination, frequency/urgency. Denies new onset urinary or bowel incontinence. MSK: Pt denies myalgia, loss of strength or function in extremities. Neuro: Pt denies new onset weakness, paresthesias. - Related Data Home Medications Medication Instructions Recorded Confirmed INSULIN ASPART (NovoLOG) [NovoLOG See Protocol SQ AC-TID 04/30/19 09/24/19 (formulary)] Insulin Glargine [Lantus] 40 unit SQ DAILY 04/30/19 09/24/19 Atorvastatin [Lipitor] 80 mg PO DAILY 07/26/19 09/24/19 Carvedilol [Coreg] 6.25 mg PO BID 07/26/19 09/24/19 Spironolactone [Aldactone] 25 mg PO BID 07/26/19 09/24/19 Apixaban [Eliquis] 5 mg PO BID 07/27/19 09/24/19 Furosemide [Lasix] 80 mg PO BID 08/20/19 09/24/19 acetaZOLAMIDE [Diamox Sequels] 500 mg PO BID 08/20/19 09/24/19 Sertraline [Zoloft] 25 mg PO DAILY 09/13/19 09/24/19 Previous Rx's Medication Instructions Recorded Gabapentin [Neurontin] 600 mg PO TID #90 tablet 01/09/19 Lisinopril [Zestril] 2.5 mg PO DAILY #30 tab 05/04/19 Aspirin 81 mg PO DAILY chew 09/18/19 Lacosamide [Vimpat] 50 mg PO BID #60 tablet 09/18/19 Cephalexin [Keflex] 500 mg PO Q6HR 14 Days #56 cap 12/09/19 Sulfamethox-Tmp 800-160Mg [Bactrim 1 tab PO Q12HR 14 Days #28 tab 12/09/19 DS 800-160 mg] Allergies Allergy/AdvReac Type Severity Reaction Status Date / Time Penicillins Allergy Rash/Hives Verified 09/24/19 10:57 ondansetron [From Zofran] AdvReac Nausea & Verified 09/24/19 10:57 Vomiting Review of Systems ROS Statement: Those systems with pertinent positive or pertinent negative responses have been documented in the HPI. ROS Other: All systems not noted in ROS Statement are negative. Past Medical History Past Medical History: Asthma, Heart Failure, COPD, CVA/TIA, Diabetes Mellitus, Hypertension, Myocardial Infarction ([place]), Pneumonia, Seizure Disorder, Seizure Disorder Additional Past Medical History / Comment(s): uses a cane. Last seizure unknown Last Myocardial Infarction Date:: 06/2018 History of Any Multi-Drug Resistant Organisms: MRSA, VRE, VRE Date of last positivie culture/infection: 2016 MDRO Source:: bilat feet Past Surgical History: Adenoidectomy, AICD, Section, Heart Catheterization, Orthopedic Surgery, Pacemaker, Tonsillectomy Additional Past Surgical History / Comment(s): AICD - [employer]. has pacemaker defibrillator, right all toe amputated 04/2016, LT GREAT TOE then left foot partial amputation Past Anesthesia/Blood Transfusion Reactions: Postoperative Nausea & Vomiting (PONV) Type of Cardiac Device: Biventricular Pacemaker, Permanent Pacemaker, AICD Device Placement Date:: 2011 Past Psychological History: Bipolar Smoking Status: Former smoker Past Alcohol Use History: None Reported Past Drug Use History: None Reported - Past Family History Mother Family Medical History: Deep Vein Thrombosis (DVT) Additional Family Medical History / Comment(s): Some type of heart problems, kidney failure. Father History Unknown: Yes Family Medical History: Unable to Obtain Additional Family Medical History / Comment(s): Patient denies knowing any medical history on her father. General Exam - General Exam Comments Initial Comments: Constitutional: NAD, AOX3, Pt has pleasant affect. HEENT: NC/AT, trachea midline, neck supple, no lymphadenopathy. Posterior pharynx non erythematous, without exudates. External ears appear normal, without discharge. Mucous membranes moist. Eyes PERRLA, EOM intact. There is no scleral icterus. No pallor noted. Cardiopulmonary: RRR, no murmurs, rubs or gallops, no JVD noted. Lungs CTAB in anterior and posterior nieves. No peripheral edema. Abdominal exam: Abdomen soft and non-distended. Abdomen non-tender to palpation in all 4 quadrants. Bowel sounds active in LLQ. No hepatosplenomegaly. No ecchymosis Neuro: CN II-XII grossly intact. No nuchal rigidity. No raccon eyes, no hinds sign, no hemotympanum. No cervical spinal tenderness. MSK: Right foot ulcer noted on medial aspect. Approximately 3 cm. Posteriro c halfway's Initially Nontender. On Repeat Exam mild right posterior calf tenderness. Homans sign negative. No left posterior calf tenderness. Homans sign negative. Posterior tibialis and radial pulse +2 bilaterally. Sensation intact in upper and lower extremities. Full active ROM in upper and lower extremities, 5/5 stregnth. Limitations: no limitations Course Vital Signs 12/09/19 20:15 Temperature 97.8 F Pulse Rate 85 Respiratory 18 Rate Blood Pressure 141/82 O2 Sat by Pulse 99 Oximetry Medical Decision Making - Medical Decision Making 44-year-old female patient with extensive past history including cardiomyopathy, congestive heart failure with ejection fraction of 20%, asthma, COPD since the ED with chief complaint of right foot ulcer. Patient also reports that she has some dyspnea with exertion. Denies any chest pain or shortness of breath at rest. Also complains of a mild cough. Patient is anticoagulated on eliquis. Denies any other complaints at this time. Vital signs stable, afebrile. Physical exam displayed: Right foot ulcer noted on medial aspect. Approximately 3 cm. Posteriro calf's Initially Nontender. On Repeat Exam mild right posterior calf tenderness. Homans sign negative. No left posterior calf tenderness. Homans sign negative. Laboratory investigations overall noncompressive. Hemoglobin around baseline. Troponin negative. BNP around baseline. Plain film of foot displayed calculus burning, soft tissue swelling. No deficits and vasculitis. No adverse change compared to old exam. Chest x-ray displayed scarring or subsegmental atelectasis left lower lobe increased compared to old exam. No heart failure. Venous Doppler right lower extremity negative. EKG displayed paced rhythm. Patient mentions for this time. Patient will be discharged with Bactrim for a foot ulcer and will follow up with primary care provider and wound clinic on outpatient basis. Case discussed with Dr. Porter. - Lab Data Result diagrams: 12/09/19 20:55 12/09/19 20:55 Lab Results 12/09/19 12/09/19 12/09/19 Range/Units 20:55 20:55 20:55 WBC 9.4 (3.8-10.6) k/uL RBC 4.14 (3.80-5.40) m/uL Hgb 10.0 L (11.4-16.0) gm/dL Hct 32.0 L (34.0-46.0) % MCV 77.3 L (80.0-100.0) fL MCH 24.1 L (25.0-35.0) pg MCHC 31.2 (31.0-37.0) g/dL RDW 14.6 (11.5-15.5) % Plt Count 267 (150-450) k/uL Neutrophils % 71 % Lymphocytes % 16 % Monocytes % 4 % Eosinophils % 5 % Basophils % 1 % Neutrophils # 6.7 (1.3-7.7) k/uL Lymphocytes # 1.5 (1.0-4.8) k/uL Monocytes # 0.4 (0-1.0) k/uL Eosinophils # 0.5 (0-0.7) k/uL Basophils # 0.1 (0-0.2) k/uL Hypochromasia Marked Poikilocytosis Slight PT (9.0-12.0) sec INR (<1.2) APTT (22.0-30.0) sec Sodium 139 (137-145) mmol/L Potassium 4.1 (3.5-5.1) mmol/L Chloride 103 (98-107) mmol/L Carbon Dioxide 29 (22-30) mmol/L Anion Gap 7 mmol/L BUN 17 (7-17) mg/dL Creatinine 0.91 (0.52-1.04) mg/dL Est GFR (CKD-EPI)AfAm 88 (>60 ml/min/1.73 sqM) Est GFR (CKD-EPI)NonAf 76 (>60 ml/min/1.73 sqM) Glucose 135 H (74-99) mg/dL Calcium 8.3 L (8.4-10.2) mg/dL Magnesium 1.9 (1.6-2.3) mg/dL Total Bilirubin 0.4 (0.2-1.3) mg/dL AST 26 (14-36) U/L ALT 12 (4-34) U/L Alkaline Phosphatase 132 H (38-126) U/L Troponin I (0.000-0.034) ng/mL NT-Pro-B Natriuret Pep 1370 pg/mL Total Protein 7.0 (6.3-8.2) g/dL Albumin 3.8 (3.5-5.0) g/dL 12/09/19 12/09/19 Range/Units 20:55 20:55 WBC (3.8-10.6) k/uL RBC (3.80-5.40) m/uL Hgb (11.4-16.0) gm/dL Hct (34.0-46.0) % MCV (80.0-100.0) fL MCH (25.0-35.0) pg MCHC (31.0-37.0) g/dL RDW (11.5-15.5) % Plt Count (150-450) k/uL Neutrophils % % Lymphocytes % % Monocytes % % Eosinophils % % Basophils % % Neutrophils # (1.3-7.7) k/uL Lymphocytes # (1.0-4.8) k/uL Monocytes # (0-1.0) k/uL Eosinophils # (0-0.7) k/uL Basophils # (0-0.2) k/uL Hypochromasia Poikilocytosis PT 10.0 (9.0-12.0) sec INR 0.9 (<1.2) APTT 26.6 (22.0-30.0) sec Sodium (137-145) mmol/L Potassium (3.5-5.1) mmol/L Chloride (98-107) mmol/L Carbon Dioxide (22-30) mmol/L Anion Gap mmol/L BUN (7-17) mg/dL Creatinine (0.52-1.04) mg/dL Est GFR (CKD-EPI)AfAm (>60 ml/min/1.73 sqM) Est GFR (CKD-EPI)NonAf (>60 ml/min/1.73 sqM) Glucose (74-99) mg/dL Calcium (8.4-10.2) mg/dL Magnesium (1.6-2.3) mg/dL Total Bilirubin (0.2-1.3) mg/dL AST (14-36) U/L ALT (4-34) U/L Alkaline Phosphatase (38-126) U/L Troponin I <0.012 (0.000-0.034) ng/mL NT-Pro-B Natriuret Pep pg/mL Total Protein (6.3-8.2) g/dL Albumin (3.5-5.0) g/dL - EKG Data -: EKG Interpreted by Me (and DR. Porter) EKG Comments: Ventricular rate 79, painful and 46, QRS 154, QT/QTC 42/582. Atrial paced ventricular paced rhythm. Biventricular pacemaker detected. Abnormal EKG. Disposition Clinical Impression: Diabetic foot ulcer Disposition: HOME SELF-CARE Condition: Stable Instructions (If sedation given, give patient instructions): Diabetic Foot Ulcers (ED) Additional Instructions: Take antibiotics as directed. Follow up with primary care provider and wound clinic tomorrow. Return to ER if condition worsens. Prescriptions: Sulfamethox-Tmp 800-160Mg [Bactrim DS 800-160 mg] 1 tab PO Q12HR 14 Days #28 tab Cephalexin [Keflex] 500 mg PO Q6HR 14 Days #56 cap Is patient prescribed a controlled substance at d/c from ED?: No Referrals: Dylan Causey MD [Primary Care Provider] - 1-2 days
--- NOTE | 2019-12-09 22:47 | US ---
EXAMINATION TYPE: US venous doppler duplex LE RT DATE OF EXAM: 12/09/2019 10:28 PM COMPARISON: None CLINICAL HISTORY: calf pain . No redness. No swelling. Calf pain. No hx DVT. On blood thinners. SIDE PERFORMED: Right TECHNIQUE: The lower extremity deep venous system is examined utilizing real time linear array sonog maggie with graded compression, doppler sonography and color-flow sonography. VESSELS IMAGED: External Iliac Vein (EIV) Common Femoral Vein Deep Femoral Vein Greater Saphenous Vein * Femoral Vein Popliteal Vein Small Saphenous Vein * Proximal Calf Veins (* superficial vessels) Right Leg: Negative for DVT IMPRESSION: No evidence of deep venous thrombosis in the right leg.
[2019-12-09 23:18] VITALS: BP 137/80; PULSE 75; TEMP 98.3
== END 2019-12-09 23:18 | disposition home or self-care (01) ==
LOC: EC 20:06
DX: E11.621 Type 2 diabetes mellitus with foot ulcer (principal); L97.519 Non-pressure chronic ulcer of other part of right foot with unspecified severity; I11.0 Hypertensive heart disease with heart failure; I50.9 Heart failure, unspecified; I42.9 Cardiomyopathy, unspecified; I25.2 Old myocardial infarction; F31.9 Bipolar disorder, unspecified; Z79.4 Long term (current) use of insulin; Z79.01 Long term (current) use of anticoagulants; Z79.02 Long term (current) use of antithrombotics/antiplatelets; Z79.899 Other long term (current) drug therapy; Z88.0 Allergy status to penicillin; Z88.8 Allergy status to other drugs, medicaments and biological substances; Z87.891 Personal history of nicotine dependence; Z95.0 Presence of cardiac pacemaker; Z86.73 Personal history of transient ischemic attack (TIA), and cerebral infarction without residual deficits
CPT/HCPCS: 36415; 93005; 83880; 80053; 83735; 84484; 85025; 85610; 85730; 73630; 71046; 93971; 99285; 96365; J0696

== ENCOUNTER 2020-05-21 15:22 | Inpatient (IN) | payer MEDICARE, OTHER ==
[2020-05-21] MEDS ORDERED: MORPHINE SULFATE 4 MG/ML SYRINGE IVP STA ×2 (17:19→22:50)
--- NOTE | 2020-05-21 17:24 | XR ---
EXAMINATION TYPE: XR tibia fibula RT DATE OF EXAM: 05/21/2020 CLINICAL HISTORY: Swelling and pain rule out infection. TECHNIQUE: Two views of the right leg are obtained. COMPARISON: None. FINDINGS: Moderate diffuse subcutaneous edema and soft tissue swelling with lucency corresponding to soft tissue wound or ulcer anterior distal aspect. There is amputation defect more proximal to this t hrough the proximal diaphysis of the tibia and fibula. No suspicious cortical destruction seen to sug gest acute osteomyelitis. Bony structures roughly 4 to 5 cm away from the area of soft tissue ulcerat ion. IMPRESSION: As above.
--- NOTE | 2020-05-21 17:26 | XR ---
EXAMINATION TYPE: XR chest 2V DATE OF EXAM: 05/21/2020 COMPARISON: Chest x-ray December 09, 2019. HISTORY: Shortness of breath TECHNIQUE: Frontal and lateral views of the chest are obtained. FINDINGS: There is no new suspicious focal air space opacity, pleural effusion, or pneumothorax seen . The cardiac silhouette size is more prominent and enlarged with multi lead pacemaker/defibrillator . The osseous structures are intact. IMPRESSION: Cardiomegaly without new suspicious acute pulmonary process.
[2020-05-21 18:03] LABS: Anisocytosis Slight; Basophils % (A) 1 %; Eosinophils # (A) 0.3 k/uL (0-0.7); Eosinophils % (A) 4 %; HCT 27.7 % (34.0-46.0); HGB 7.5 gm/dL (11.4-16.0); Hypochromasia Marked; Lymphocytes # (A) 1.1 k/uL (1.0-4.8); Lymphocytes % (A) 16 %; MCH 17.2 pg (25.0-35.0); MCHC 27.2 g/dL (31.0-37.0); MCV 63.2 fL (80.0-100.0); Mean Platelet Volume 8.4; Microcytosis Marked; Monocytes # (A) 0.4 k/uL (0-1.0); Monocytes % (A) 5 %; Neutrophils # (A) 5.2 k/uL (1.3-7.7); Neutrophils % (A) 73 %; Platelet Count 229 k/uL (150-450); Poikilocytosis Moderate; RBC 4.39 m/uL (3.80-5.40); WBC 7.1 k/uL (3.8-10.6)
[2020-05-21 18:14] LABS: Albumin 3.6 g/dL (3.5-5.0); Calcium 8.3 mg/dL (8.4-10.2); Potassium 4.3 mmol/L (3.5-5.1); Total Bilirubin 0.6 mg/dL (0.2-1.3); Total Protein 6.9 g/dL (6.3-8.2)
[2020-05-21 18:25] LABS: INR 1.2 (<1.2); Partial Thromboplastin Time 22.6 sec (22.0-30.0); Prothrombin Time 12.3 sec (9.0-12.0)
[2020-05-21] MEDS ORDERED: IPRATROPIUM-ALBUTEROL 3 ML NEB INHALATION STA (18:36)
--- NOTE | 2020-05-21 18:49 | ED ---
SOB HPI - General Chief Complaint: Shortness of Breath Stated Complaint: SOB Time Seen by Provider: 05/21/20 16:05 Source: patient Mode of arrival: wheelchair Limitations: no limitations - History of Present Illness Initial Comments: The patient is a 44-year-old female past history of congestive heart failure EF of 20% with ICD placement, COPD, diabetes type 2, hypertension and right BKA who presents emergency room with shortness of breath. Patient reports to worsening shortness of breath over the past week. She has a history of COPD and heart failure. She is supposed to be on 80 mg of Lasix twice daily however states that she cut down because she has had a decrease in urine output. She has noted swelling in her lower extremities as well as swelling that has extended into her belly. States her breathing is worse when she lays flat. She denies any chest pain. Does have a history of splenic and cardiac thrombus for which she is on Eliquis. Denies any missed doses. No history of DVT or PE. Patient has a history of a BKA of her right lower extremity. She sees Dr. Hurd. She did have a revision in December. States that she's been seeing him at the wound care office and reports that over the past week she's had increase in green drainage from the site and the pain is getting worse. Denies any fevers or chills. No productive cough or hemoptysis. There are no other alleviating, precipitating or modifying factors - Related Data Home Medications Medication Instructions Recorded Confirmed INSULIN ASPART (NovoLOG) [NovoLOG See Protocol SQ AC-TID 04/30/19 05/21/20 (formulary)] Insulin Glargine [Lantus] 35 unit SQ DAILY 04/30/19 05/21/20 Spironolactone [Aldactone] 25 mg PO BID 07/26/19 05/21/20 Apixaban [Eliquis] 5 mg PO BID 07/27/19 05/21/20 Ipratropium-Albuterol Nebulize 3 ml INHALATION RT-DAILY PRN 05/21/20 05/21/20 [Duoneb 0.5 mg-3 mg/3 ml Soln] Lacosamide [Vimpat] 50 mg PO DAILY 05/21/20 05/21/20 Metoprolol Succinate [Toprol XL] 50 mg PO DAILY 05/21/20 05/21/20 Omeprazole [PriLOSEC] 40 mg PO DAILY 05/21/20 05/21/20 Previous Rx's Medication Instructions Recorded Furosemide [Lasix] 40 mg PO DAILY #0 05/29/20 Gabapentin [Neurontin] 600 mg PO BID #90 tablet 05/29/20 Levofloxacin [Levaquin] 250 mg PO DAILY #7 tab 05/29/20 Allergies Allergy/AdvReac Type Severity Reaction Status Date / Time Penicillins Allergy Rash/Hives Verified 05/21/20 18:43 ondansetron [From Zofran] AdvReac Nausea & Verified 05/21/20 18:43 Vomiting Review of Systems ROS Statement: Those systems with pertinent positive or pertinent negative responses have been documented in the HPI. ROS Other: All systems not noted in ROS Statement are negative. Past Medical History Past Medical History: Asthma, Heart Failure, COPD, CVA/TIA, Diabetes Mellitus, Hypertension, Myocardial Infarction ([place]), Pneumonia, Seizure Disorder, Seizure Disorder Additional Past Medical History / Comment(s): uses a cane. Last seizure unknown Last Myocardial Infarction Date:: 06/2018 History of Any Multi-Drug Resistant Organisms: MRSA, VRE, VRE Date of last positivie culture/infection: 2016 MDRO Source:: bilat feet Past Surgical History: Adenoidectomy, AICD, Section, Heart Catheterization, Orthopedic Surgery, Pacemaker, Tonsillectomy Additional Past Surgical History / Comment(s): AICD - [employer]. has pacemaker defibrillator, right all toe amputated 04/2016, LT GREAT TOE then left foot partial amputation Past Anesthesia/Blood Transfusion Reactions: Postoperative Nausea & Vomiting (PONV) Type of Cardiac Device: Biventricular Pacemaker, Permanent Pacemaker, AICD Device Placement Date:: 2011 Past Psychological History: Bipolar Smoking Status: Former smoker Past Alcohol Use History: None Reported Past Drug Use History: None Reported - Past Family History Mother Family Medical History: Deep Vein Thrombosis (DVT) Additional Family Medical History / Comment(s): Some type of heart problems, kidney failure. Father History Unknown: Yes Family Medical History: Unable to Obtain Additional Family Medical History / Comment(s): Patient denies knowing any medical history on her father. General Exam Limitations: no limitations General appearance: alert, in no apparent distress ENT exam: Present: normal exam, mucous membranes moist Neck exam: Present: normal inspection. Absent: tenderness, meningismus, lymphadenopathy Respiratory exam: Present: accessory muscle use, decreased breath sounds, other (conversational dyspnea). Absent: respiratory distress, wheezes, rales Cardiovascular Exam: Present: normal rhythm, tachycardia GI/Abdominal exam: Present: other (obese. Significant brawny edema to the skin/pannus) Extremities exam: Present: other (right bka. Distal stump has an open area of ulceration measuring approximately 12 x 8 cm. There is active yellow-green pustular drainage with redness surrounding the open area. Wound grossly contaminated with debris and hair. ) Course Vital Signs 05/21/20 05/21/20 05/21/20 16:05 18:00 19:00 Temperature 98.4 F Pulse Rate 107 H 101 H 111 H Pulse Rate [ Pulse Oximetery ] Respiratory 18 18 18 Rate Blood Pressure 118/65 102/74 126/77 Blood Pressure [Left Arm] O2 Sat by Pulse 99 96 97 Oximetry 05/21/20 05/21/20 05/21/20 20:26 20:29 20:33 Temperature 97.9 F Pulse Rate 117 H 101 H 101 H Pulse Rate [ Pulse Oximetery ] Respiratory 18 Rate Blood Pressure 131/96 Blood Pressure [Left Arm] O2 Sat by Pulse 98 Oximetry 05/22/20 05/22/20 05/22/20 05:00 09:09 09:21 Temperature 97.6 F Pulse Rate 93 109 H 79 Pulse Rate [ Pulse Oximetery ] Respiratory 17 Rate Blood Pressure 117/79 Blood Pressure [Left Arm] O2 Sat by Pulse 99 Oximetry 05/22/20 05/22/20 05/22/20 12:13 12:25 14:19 Temperature 97.8 F Pulse Rate 79 88 Pulse Rate [ 93 Pulse Oximetery ] Respiratory 16 Rate Blood Pressure Blood Pressure 113/70 [Left Arm] O2 Sat by Pulse 96 Oximetry Medical Decision Making - Medical Decision Making Upon arrival the patient is placed into room 10. A thorough history and physical exam was performed. I did undress the patient's bandage. A culture was obtained. Peripheral IV was established. Laboratory studies were conducted. I did give the patient dose of Solu-Medrol and magnesium. She was also provided with a breathing treatment. Lab studies are remarkable for a hemoglobin of 7.5. BNP is elevated at 1690. Chest x-ray demonstrates cardiomegaly without new suspicious acute cardiopulmonary process. X-ray of the patient's right tib-fib demonstrates moderate diffuse subcutaneous edema and soft tissue swelling with lucency corresponding to soft tissue wound or ulcer anterior distal aspect. No suspicious cortical destruction to suggest acute osteomyelitis. Blood culture was obtained. I initiated the patient on antibiotics. She was also given 80 mg of Lasix. I discussed diagnosis, diffe rential treatment options. I did recommend hospital admission for which the patient did agree. I discussed the case with the [employer] who agreed to it that the patient. I will consult vascular and cardiology. Patient's was then transferred to the floor in stable condition - Lab Data Result diagrams: 05/28/20 07:09 05/29/20 07:38 Lab Results 05/21/20 05/21/20 05/21/20 Range/Units 17:51 17:57 17:57 WBC 7.1 (3.8-10.6) k/uL RBC 4.39 (3.80-5.40) m/uL Hgb 7.5 L (11.4-16.0) gm/dL Hct 27.7 L (34.0-46.0) % MCV 63.2 L (80.0-100.0) fL MCH 17.2 L (25.0-35.0) pg MCHC 27.2 L (31.0-37.0) g/dL RDW 17.0 H (11.5-15.5) % Plt Count 229 (150-450) k/uL Neutrophils % 73 % Lymphocytes % 16 % Monocytes % 5 % Eosinophils % 4 % Basophils % 1 % Neutrophils # 5.2 (1.3-7.7) k/uL Lymphocytes # 1.1 (1.0-4.8) k/uL Monocytes # 0.4 (0-1.0) k/uL Eosinophils # 0.3 (0-0.7) k/uL Basophils # 0.0 (0-0.2) k/uL Hypochromasia Marked Poikilocytosis Moderate Anisocytosis Slight Microcytosis Marked PT 12.3 H (9.0-12.0) sec INR 1.2 H (<1.2) APTT 22.6 (22.0-30.0) sec Sodium 137 (137-145) mmol/L Potassium 4.3 (3.5-5.1) mmol/L Chloride 102 (98-107) mmol/L Carbon Dioxide 26 (22-30) mmol/L Anion Gap 9 mmol/L BUN 16 (7-17) mg/dL Creatinine 0.90 (0.52-1.04) mg/dL Est GFR (CKD-EPI)AfAm 89 (>60 ml/min/1.73 sqM) Est GFR (CKD-EPI)NonAf 77 (>60 ml/min/1.73 sqM) Glucose 149 H (74-99) mg/dL Plasma Lactic Acid Warren (0.7-2.0) mmol/L Calcium 8.3 L (8.4-10.2) mg/dL Total Bilirubin 0.6 (0.2-1.3) mg/dL AST 36 (14-36) U/L ALT 40 H (4-34) U/L Alkaline Phosphatase 141 H (38-126) U/L Creatine Kinase 94 (30-135) U/L Troponin I (0.000-0.034) ng/mL NT-Pro-B Natriuret Pep pg/mL Total Protein 6.9 (6.3-8.2) g/dL Albumin 3.6 (3.5-5.0) g/dL 05/21/20 05/21/20 05/21/20 Range/Units 17:57 17:57 17:57 WBC (3.8-10.6) k/uL RBC (3.80-5.40) m/uL Hgb (11.4-16.0) gm/dL Hct (34.0-46.0) % MCV (80.0-100.0) fL MCH (25.0-35.0) pg MCHC (31.0-37.0) g/dL RDW (11.5-15.5) % Plt Count (150-450) k/uL Neutrophils % % Lymphocytes % % Monocytes % % Eosinophils % % Basophils % % Neutrophils # (1.3-7.7) k/uL Lymphocytes # (1.0-4.8) k/uL Monocytes # (0-1.0) k/uL Eosinophils # (0-0.7) k/uL Basophils # (0-0.2) k/uL Hypochromasia Poikilocytosis Anisocytosis Microcytosis PT (9.0-12.0) sec INR (<1.2) APTT (22.0-30.0) sec Sodium (137-145) mmol/L Potassium (3.5-5.1) mmol/L Chloride (98-107) mmol/L Carbon Dioxide (22-30) mmol/L Anion Gap mmol/L BUN (7-17) mg/dL Creatinine (0.52-1.04) mg/dL Est GFR (CKD-EPI)AfAm (>60 ml/min/1.73 sqM) Est GFR (CKD-EPI)NonAf (>60 ml/min/1.73 sqM) Glucose (74-99) mg/dL Plasma Lactic Acid Warren 1.7 (0.7-2.0) mmol/L Calcium (8.4-10.2) mg/dL Total Bilirubin (0.2-1.3) mg/dL AST (14-36) U/L ALT (4-34) U/L Alkaline Phosphatase (38-126) U/L Creatine Kinase (30-135) U/L Troponin I <0.012 (0.000-0.034) ng/mL NT-Pro-B Natriuret Pep 1690 pg/mL Total Protein (6.3-8.2) g/dL Albumin (3.5-5.0) g/dL - EKG Data EKG Comments: EKG demonstrates an atrial sensed, ventricularly paced rhythm with a rate of 103. NV interval 164. QRS 92. QTC of 492. No acute ST segment elevations or depressions concerning for ischemic changes Disposition Clinical Impression: Respiratory insufficiency, COPD exacerbation, CHF (congestive heart failure), Leg wound, right, Anemia Disposition: ADMITTED IP TO THIS HOSP Condition: Stable Is patient prescribed a controlled substance at d/c from ED?: No Decision to Admit Reason: Admit from EC Decision Date: 05/21/20 Decision Time: 19:09
[2020-05-21] MEDS ORDERED: FUROSEMIDE 10 MG/ML 10 ML VIAL IV STA (19:00)
[2020-05-21] MEDS ORDERED: MAGNESIUM SULFATE-D5W PMX 1 GM in DEXTROSE/WATER 1 100ML.BAG IVPB ONE (19:00)
[2020-05-21] MEDS ORDERED: methylPREDNISolone SOD SUCCI 125 MG/2 ML VIAL IV STA (19:00)
[2020-05-21] MEDS ORDERED: ONDANSETRON 4 MG/2 ML VIAL IVP STA (19:01)
[2020-05-21] MEDS ORDERED: VANCOMYCIN IV PER PHARMACY 1 EACH MISC MISCELLANE PRN (19:02)
[2020-05-21] MEDS ORDERED: LEVOFLOXACIN 750MG-D5W PMX 750 MG in DEXTROSE/WATER 1 150ML.BAG IVPB STA (19:02)
[2020-05-21] MEDS ORDERED: NALOXONE 0.4 MG/ML 1 ML VIAL IV PRN (19:10)
[2020-05-21] MEDS ORDERED: VANCOMYCIN 2,000 MG in SODIUM CHLORIDE 0.9% 500 ML 500 ML IVPB ONE (19:30)
[2020-05-21] MEDS ORDERED: IPRATROPIUM-ALBUTEROL 3 ML NEB INHALATION PRN (19:53)
[2020-05-21] MEDS: GABAPENTIN 300 MG CAP PO SCH (21:23)
[2020-05-21] MEDS: APIXABAN 5 MG TAB PO SCH (21:23)
[2020-05-21] MEDS ORDERED: METOCLOPRAMIDE 5 MG/ML 2 ML VIAL IVP STA (22:51)
[2020-05-21] MEDS ORDERED: diphenhydrAMINE 50 MG/ML 1 ML VIAL IVP STA (22:52)
[2020-05-22] MEDS ORDERED: IPRATROPIUM-ALBUTEROL 3 ML NEB INHALATION SCH
--- NOTE | 2020-05-22 04:44 | HP ---
HISTORY AND PHYSICAL DATE OF SERVICE: 05/21/2020 CHIEF COMPLAINT: Shortness of breath. HISTORY OF PRESENT ILLNESS: This 44-year-old woman with a past medical history of multiple medical problems including asthma, CHF, COPD, CVA, TIA, diabetes, hypertension, history of myocardial infarction, seizure disorder, history of MRSA VRE, history AICD being followed by Dr. Causey in the outpatient complaining of shortness of breath over the past several days, worsening over the last 4 or 5 days. Patient's ejection fraction was found to be 20% previously. The patient had features of CHF. Patient also had right below-knee amputation by Dr. Hurd, which was infected rather, apparently the patient found dog hair and such and some drainage is also noted. The patient admitted for further evaluation and treatment. Chest x-ray showed cardiomegaly and CHF. There is no history of fever or rigors. No history of headache, loss of consciousness. Incessant cough is also reported. PAST MEDICAL HISTORY: History of asthma, CHF, COPD, CVA, diabetes type 2, hypertension, myocardial infarction, seizure disorder. MEDICATIONS: Home medications are: 1. Lantus 35 units and NovoLog scale. 2. DuoNeb. 3. Aleve. 4. Toprol-XL. 5. Aldactone. 6. Prilosec. 7. Zestril. 8. Vimpat. 9. Neurontin. 10.Lasix. 11.Eliquis. Doses and are reviewed. ALLERGIES: PENICILLIN and ZOFRAN. FAMILY HISTORY: History of DVT and history of kidney failure. SOCIAL HISTORY: Previous history of smoking. No history of alcohol intake. REVIEW OF SYSTEMS: ENT: No diminished hearing or diminished vision. CARDIOVASCULAR SYSTEM: As mentioned earlier. RESPIRATORY SYSTEM: As mentioned earlier. GI: No nausea. : No dysuria. NERVOUS SYSTEM: As mentioned earlier. ALLERGY/IMMUNOLOGY: As mentioned earlier. MUSCULOSKELETAL: As mentioned earlier. HEMATOLOGY: No history of anemia. ENDOCRINE: As mentioned earlier. CONSTITUTIONAL: As mentioned earlier. DERMATOLOGY: Negative. RHEUMATOLOGY: Negative. PSYCHIATRY: As mentioned earlier. PHYSICAL EXAMINATION: Patient is alert and oriented x3. Pulse 101 blood pressure 131/96, respiration 18, temperature 97.9, pulse ox 98% on 2 L. HEENT: Conjunctivae normal. Oral mucosa moist. NECK: No jugular venous distention. No carotid bruit. No lymph node enlargement. CARDIOVASCULAR: S1, S2 muffled. No S3, no S4. RESPIRATORY: Breath sounds diminished at the bases. Bilateral scattered rhonchi and crackles. ABDOMEN: Soft, obese, nontender. No mass palpable. LEGS: Bilateral leg edema and as well as right below-knee amputation with infected stump. NERVOUS SYSTEM: Diffusely weak. SKIN: As mentioned. JOINTS: No active deforming arthropathy. LYMPHATICS: No lymphadenopathy of the neck, axillae or groin. LABS: WBC 7.1, hemoglobin 7.5, MCV noted. INR is 1.2. The ALT is 40. ASSESSMENT: 1. Shortness of breath possibly multifactorial, congestive heart failure acute exacerbation with acute on chronic systolic dysfunction, ejection fraction 20%, as well as bronchial asthma acute exacerbation. 2. Right below-knee amputation with infected stump. 3. Anemia microcytic possibly nutritional, rule out gastrointestinal bleed. 4. History of asthma. 5. History of cerebrovascular accident, transient ischemic attack. 6. Diabetes mellitus type 2. 7. Hypertension. 8. History of myocardial infarction. 9. History pneumonia. 10.History of seizure disorder. 11.History of methicillin-resistant Staphylococcus aeruginosa, vancomycin- resistant Enterococcus. 12.History of adenoidectomy. 13.History of AICD. 14.History of degenerative joint disease. 15.History of bipolar. 16.History of nicotine dependence. 17.Morbid obesity with body mass index of 43.1. RECOMMENDATIONS AND DISCUSSION: In this 44-year-old who presented with multiple complex medical issues, at this time I recommend to continue the current medications, continue symptomatic treatment. Will initiate IV diuretics, bronchodilators, broad-spectrum IV antibiotics. We will consult Cardiology and consult Vascular Surgery and Dr. Blake ask cultures to be obtained. The home medications will be reconciled. Overall prognosis extremely guarded. I would also recommend social service director to evaluate the home situation as well. Otherwise, the prognosis extremely guarded because of multiple complex medical issues and further recommendations to follow. A copy of dictation forwarded to Dr. Causey who is the primary physician. We will monitor hemoglobin closely and if the hemoglobin drops to less than 7, I would also recommend transfusion with Lasix. MMEDINL / PAWELN: [id number] / [facility]ITAL[facility]
[2020-05-22 07:47] LABS: Glucose,Whole Blood 239 mg/dL (75-99)
[2020-05-22] MEDS: INSULIN ASPART (NovoLOG) 100 UNIT/ML VIAL SQ SCH ×4 (07:52→21:57)
[2020-05-22] MEDS: PANTOPRAZOLE 40 MG TABLET PO SCH (07:54)
[2020-05-22] MEDS: FUROSEMIDE 10 MG/ML 10 ML VIAL IV SCH ×2 (07:55→19:36)
[2020-05-22] MEDS: NAPROXEN 250 MG TAB PO SCH (07:55)
[2020-05-22] MEDS: INSULIN DETEMIR (LEVEMIR) 100 UNIT/ML SYR SQ SCH (08:58)
[2020-05-22] MEDS: GABAPENTIN 300 MG CAP PO SCH ×3 (08:59→21:57)
[2020-05-22] MEDS: LACOSAMIDE 50 MG TABLET PO SCH (08:59)
[2020-05-22] MEDS: METOPROLOL SUCCINATE (ER) 50 MG TAB.ER.24H PO SCH (09:00)
[2020-05-22] MEDS: APIXABAN 5 MG TAB PO SCH ×2 (09:00→21:57)
[2020-05-22] MEDS: SPIRONOLACTONE 25 MG TAB PO SCH ×2 (09:00→21:57)
[2020-05-22] MEDS: VANCOMYCIN 2,000 MG in SODIUM CHLORIDE 0.9% 500 ML 500 ML IVPB SCH ×2 (09:01→21:57)
[2020-05-22] MEDS: IPRATROPIUM-ALBUTEROL 3 ML NEB INHALATION SCH ×4 (09:09→19:01)
--- NOTE | 2020-05-22 10:02 | US ---
EXAMINATION TYPE: US venous doppler duplex LE LT DATE OF EXAM: 05/22/2020 9:43 AM COMPARISON: NONE CLINICAL HISTORY: swelling. SIDE PERFORMED: Left TECHNIQUE: The lower extremity deep venous system is examined utilizing real time linear array sonog maggie with graded compression, doppler sonography and color-flow sonography. VESSELS IMAGED: External Iliac Vein (EIV) Common Femoral Vein Deep Femoral Vein Greater Saphenous Vein * Femoral Vein Popliteal Vein Small Saphenous Vein * Proximal Calf Veins (* superficial vessels) Patient morbidly obese with large panus and extensive soft tissue edema. Technically difficult, limit ed study. Left Leg: Appears negative for DVT with above limitations. IMPRESSION: 1. Left lower extremity ultrasound negative for deep venous thrombosis. Exam is limited.
[2020-05-22 10:53] LABS: Calcium 8.2 mg/dL (8.4-10.2); Potassium 4.8 mmol/L (3.5-5.1)
--- NOTE | 2020-05-22 11:00 | P.CRDCN ---
History of Present Illness History of present illness: HISTORY OF PRESENTING ILLNESS This is a pleasant 44-year-old female past medical history significant for nonischemic idiopathic cardiomyopathy status post by the ICD implantation in 2011, hypertension, chronic systolic heart failure, diabetes mellitus, dyslipidemia and morbid obesity. She follows in the office with Dr. Roldan, however she has not been to the office since 07/2018. We have been asked to see in consultation for heart failure. She presented to the ER with wound drainage and shortness of breath. She recently underwent right BKA with Dr. Hurd at [facility]. She states for the 1-week she has noticed worsening dyspnea. She had recently been taking only half of her prescribed lasix because she felt like she wasn't urinating enough and was concerned about becoming dehydrated. Since cutting down she noticed increasing swelling of the left lower extremity and worsening dyspnea. She was last seen here by Dr. Esquivel in August 2019 who recommended she undergo generator change as her device has been 2.6V since 07/2018. She has not followed up since that time due to her ongoing lower extremity wounds and surgery. DIAGNOSTICS EKG reveals atrial sensed ventricular paced. Chest xray cardiomegaly with no acute cardiopulmonary process. Left lower extremity Doppler negative for DVT. Laboratory reviewed, WBC 7.1, hemoglobin 7.5, platelets 229, sodium 137, potassium 4.3, creatinine 0.9, ALT 40, alkaline phosphate 141, cardiac enzymes negative 2, NT proBNP 1690. Current cardiac medications include Eliquis 5 mg twice a day, Lasix 40 mg twice a day, lisinopril 2.5 mg daily, Aldactone 25 mg twice a day and Toprol 50 mg daily. Most recent echocardiogram obtained 08/2019 reveals impaired LV systolic function with EF 20-25%, mild TR and mildly dilated left atrium. REVIEW OF SYSTEMS At the time of my exam: CONSTITUTIONAL: Denies fever or chills. CARDIOVASCULAR: Complains of shortness of breath. Denies chest pain, orthopnea, PND or palpitations. RESPIRATORY: Denies cough. GASTROINTESTINAL: Denies abdominal pain, diarrhea, constipation, nausea or vomiting. MUSCULOSKELETAL: Denies myalgias. NEUROLOGIC: Denies numbness, tingling or weakness. ENDOCRINE: Denies fatigue, weight change, polydipsia or polyurina. GENITOURINARY: Denies burning, hematuria or urgency with micturation. HEMATOLOGIC: Denies history of anemia or bleeding. PHYSICAL EXAMINATION Blood pressure 117/79 heart rate 79 afebrile and maintaining oxygen saturation on nasal cannula. CONSTITUTIONAL: No apparent distress. HEENT: Head is normocephalic. Pupils are equal, round. Sclerae anicteric. Mucous membranes of the mouth are moist. No JVD. No carotid bruit. CHEST EXAMINATION: Faint bibasilar rales. No wheezes or rhonchi. No chest wall tenderness is noted on palpation or with deep breathing. HEART EXAMINATION: Regular rate and rhythm. S1, S2 heard. No murmurs, gallops or rub. ABDOMEN: Soft, nontender. Positive bowel sounds. EXTREMITIES: Right BKA with green purulent drainage from surgical site and no swelling. Left lower extremity 2+ pitting edema with all 5 toes amputated. NEUROLOGIC EXAMINATION: Patient is awake, alert and oriented x3. 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 Document accurate intake and output along with daily weights. We will continue to follow and make recommendations accordingly. Thank you kindly for this consultation. Nurse Practitioner note has been reviewed, I agree with a documented findings and plan of care. Patient was seen and examined. Past Medical History Past Medical History: Asthma, Heart Failure, COPD, CVA/TIA, Diabetes Mellitus, Hypertension, Myocardial Infarction ([place]), Pneumonia, Seizure Disorder, Seizure Disorder Additional Past Medical History / Comment(s): uses a cane. Last seizure unknown Last Myocardial Infarction Date:: 06/2018 History of Any Multi-Drug Resistant Organisms: MRSA, VRE, VRE Date of last positivie culture/infection: 2016 MDRO Source:: bilat feet Past Surgical History: Adenoidectomy, AICD, Section, Heart Catheterization, Orthopedic Surgery, Pacemaker, Tonsillectomy Additional Past Surgical History / Comment(s): AICD - [employer]. has pacemaker defibrillator, right all toe amputated 04/2016, LT GREAT TOE then left foot partial amputation Past Anesthesia/Blood Transfusion Reactions: Postoperative Nausea & Vomiting (PONV) Type of Cardiac Device: Biventricular Pacemaker, Permanent Pacemaker, AICD Device Placement Date:: 2011 Past Psychological History: Bipolar Smoking Status: Former smoker Past Alcohol Use History: None Reported Past Drug Use History: None Reported - Past Family History Mother Family Medical History: Deep Vein Thrombosis (DVT) Additional Family Medical History / Comment(s): Some type of heart problems, kidney failure. Father History Unknown: Yes Family Medical History: Unable to Obtain Additional Family Medical History / Comment(s): Patient denies knowing any medical history on her father. Medications and Allergies Home Medications Medication Instructions Recorded Confirmed Type Gabapentin [Neurontin] 600 mg PO TID #90 tablet 01/09/19 05/21/20 Rx INSULIN ASPART (NovoLOG) [NovoLOG See Protocol SQ AC-TID 04/30/19 05/21/20 History (formulary)] Insulin Glargine [Lantus] 35 unit SQ DAILY 04/30/19 05/21/20 History Lisinopril [Zestril] 2.5 mg PO DAILY #30 tab 05/04/19 05/21/20 Rx Spironolactone [Aldactone] 25 mg PO BID 07/26/19 05/21/20 History Apixaban [Eliquis] 5 mg PO BID 07/27/19 05/21/20 History Furosemide [Lasix] 40 mg PO BID 08/20/19 05/21/20 History Ipratropium-Albuterol Nebulize 3 ml INHALATION RT-DAILY PRN 05/21/20 05/21/20 History [Duoneb 0.5 mg-3 mg/3 ml Soln] Lacosamide [Vimpat] 50 mg PO DAILY 05/21/20 05/21/20 History Metoprolol Succinate [Toprol XL] 50 mg PO DAILY 05/21/20 05/21/20 History Naproxen Sod/Diphenhydramine 2 tab PO HS 05/21/20 05/21/20 History [Aleve Pm Caplet] Naproxen Sodium [Aleve] 440 mg PO DAILY 05/21/20 05/21/20 History Omeprazole [PriLOSEC] 40 mg PO DAILY 05/21/20 05/21/20 History Allergies Allergy/AdvReac Type Severity Reaction Status Date / Time Penicillins Allergy Rash/Hives Verified 05/21/20 18:43 ondansetron [From Zofran] AdvReac Nausea & Verified 05/21/20 18:43 Vomiting Physical Exam Vitals: Vital Signs Temp Pulse Resp BP Pulse Ox 05/22/20 05:00 97.6 F 93 17 117/79 99 05/21/20 20:33 101 H 05/21/20 20:29 97.9 F 101 H 18 131/96 98 05/21/20 20:26 117 H 05/21/20 19:00 111 H 18 126/77 97 05/21/20 18:00 101 H 18 102/74 96 05/21/20 16:05 98.4 F 107 H 18 118/65 99 Intake and Output 05/21/20 05/22/20 05/22/20 22:59 06:59 14:59 Other: # Voids 2 1 Weight 124.738 kg Results 05/21/20 17:51 05/21/20 17:57 Cardiac Enzymes 05/21/20 05/21/20 05/22/20 Range/Units 17:57 17:57 00:20 AST 36 (14-36) U/L Troponin I <0.012 <0.012 (0.000-0.034) ng/mL Coagulation 05/21/20 Range/Units 17:57 PT 12.3 H (9.0-12.0) sec APTT 22.6 (22.0-30.0) sec CBC 05/21/20 Range/Units 17:51 WBC 7.1 (3.8-10.6) k/uL RBC 4.39 (3.80-5.40) m/uL Hgb 7.5 L (11.4-16.0) gm/dL Hct 27.7 L (34.0-46.0) % Plt Count 229 (150-450) k/uL Comprehensive Metabolic Panel 05/21/20 Range/Units 17:57 Sodium 137 (137-145) mmol/L Potassium 4.3 (3.5-5.1) mmol/L Chloride 102 (98-107) mmol/L Carbon Dioxide 26 (22-30) mmol/L BUN 16 (7-17) mg/dL Creatinine 0.90 (0.52-1.04) mg/dL Glucose 149 H (74-99) mg/dL Calcium 8.3 L (8.4-10.2) mg/dL AST 36 (14-36) U/L ALT 40 H (4-34) U/L Alkaline Phosphatase 141 H (38-126) U/L Total Protein 6.9 (6.3-8.2) g/dL Albumin 3.6 (3.5-5.0) g/dL Current Medications Generic Name Dose Route Start Last Admin Trade Name Freq PRN Reason Stop Dose Admin Albuterol/Ipratropium 3 ml 05/22/20 08:00 Duoneb 0.5 Mg-3 Mg/3 Ml Soln INHALATION RT-QID JAN Albuterol/Ipratropium 3 ml 05/21/20 19:53 Duoneb 0.5 Mg-3 Mg/3 Ml Soln INHALATION RT-Q2H PRN Shortness Of Breath Or Wheezing Apixaban 5 mg 05/21/20 21:00 05/21/20 21:23 Eliquis PO 5 mg BID JAN Administration Furosemide 80 mg 05/22/20 08:00 05/22/20 07:55 Lasix IV 80 mg Q12H JAN Administration Gabapentin 600 mg 05/21/20 22:00 05/21/20 21:23 Neurontin PO 600 mg TID JAN Administration Vancomycin HCl 2,000 mg/ 500 mls @ 167 mls/hr 05/22/20 09:00 Sodium Chloride IVPB Q12H [facility] Protocol Insulin Aspart 0 unit 05/22/20 07:30 05/22/20 07:52 Novolog SQ 5 unit ACHS JAN Administration Protocol Insulin Detemir 35 unit 05/22/20 09:00 Levemir SQ DAILY [facility] Lacosamide 50 mg 05/22/20 09:00 Vimpat PO DAILY [facility] Lisinopril 2.5 mg 05/22/20 09:00 Zestril PO DAILY [facility] Metoprolol Succinate 50 mg 05/22/20 09:00 Toprol Xl PO DAILY [facility] Naloxone HCl 0.2 mg 05/21/20 19:10 Narcan IV Q2M PRN Opioid Reversal Naproxen 500 mg 05/22/20 09:00 05/22/20 07:55 Naprosyn PO 500 mg DAILY JAN Administration Pantoprazole Sodium 40 mg 05/22/20 07:30 05/22/20 07:54 Protonix PO 40 mg AC-BRKFST JAN Administration Spironolactone 25 mg 05/22/20 09:00 Aldactone PO BID JAN Intake and Output 05/21/20 05/22/20 05/22/20 22:59 06:59 14:59 Other: # Voids 2 1 Weight 124.738 kg 05/21/20 17:51 05/21/20 17:57
[2020-05-22 11:18] LABS: Anisocytosis Slight; Basophils % (A) 0 %; Eosinophils # (A) 0.1 k/uL (0-0.7); Eosinophils % (A) 1 %; HCT 30.4 % (34.0-46.0); HGB 8.3 gm/dL (11.4-16.0); Hypochromasia Marked; Lymphocytes # (A) 0.7 k/uL (1.0-4.8); Lymphocytes % (A) 8 %; MCH 18.2 pg (25.0-35.0); MCHC 27.3 g/dL (31.0-37.0); MCV 66.8 fL (80.0-100.0); Mean Platelet Volume 9.4; Microcytosis Marked; Monocytes # (A) 0.3 k/uL (0-1.0); Monocytes % (A) 3 %; Neutrophils # (A) 7.2 k/uL (1.3-7.7); Neutrophils % (A) 87 %; Platelet Count 271 k/uL (150-450); Poikilocytosis Slight; RBC 4.54 m/uL (3.80-5.40); RDW 16.8 % (11.5-15.5); WBC 8.3 k/uL (3.8-10.6)
[2020-05-22] MEDS: MORPHINE SULFATE 4 MG/ML SYRINGE IVP PRN (13:23)
[2020-05-22 13:41] LABS: Glucose,Whole Blood 215 mg/dL (75-99)
[2020-05-22] MEDS: METOCLOPRAMIDE 5 MG/ML 2 ML VIAL IVP PRN ×2 (14:12→19:36)
--- NOTE | 2020-05-22 16:52 | P.GSCN ---
History of Present Illness History of present illness: 44-year-old white female patient is well known to me from the past. Patient had a right BK amputation for gangrene of the foot in November 2019 she fell down at home after discharge she developed flap necrosis of below the knee stump patient had a revision of the stump and she's been treated with local wound care. Patient had history of diabetes hypertension status post ICD. Patient also has shortness of breath and dyspnea. Neck examination neck is supple no bruit appreciated Chest is clear first and second sound present there is some crackles noted bilaterally Vascular examination femorals are 1+ bilateral right below-knee stump has a large wound we been treating with local wound care plan is we will use medihoney gel for the wound and IV antibiotic and under care of infectious disease follow with you. 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 Last Myocardial Infarction Date:: 06/2018 History of Any Multi-Drug Resistant Organisms: MRSA, VRE, VRE Year Discovered:: 2016 MDRO Source:: bilat feet Past Surgical History: Adenoidectomy, AICD, Section, Heart Catheterization, Orthopedic Surgery, Pacemaker, Tonsillectomy Additional Past Surgical History / Comment(s): AICD/pacer, [place], R foot toes all amputated/R BKA with revision and I&D, L foot great toe amp/partial L foot amp, corrective eye surgery L eye for strabismus. Past Anesthesia/Blood Transfusion Reactions: Motion Sickness, Postoperative Nausea & Vomiting (PONV) Type of Cardiac Device: Biventricular Pacemaker, Permanent Pacemaker, AICD Device Placement Date:: 2011 Past Psychological History: Bipolar Additional Psychological History / Comment(s): Pt resides with her son. She is wheelchair bound/transfers self. She has home care thru [facility] for wound care. She has 2 cats and 2 birds. She has a glucometer and nebulizer. Smoking Status: Former smoker Past Alcohol Use History: None Reported Additional Past Alcohol Use History / Comment(s): Patient was a smoker of a half a pack cigarettes per day for 32 years and quit in June 2018. Past Drug Use History: Marijuana Additional Drug Use History / Comment(s): Pt smokes marijuana at HS for a sleep aide or for pain control - Past Family History Mother Family Medical History: Deep Vein Thrombosis (DVT) Additional Family Medical History / Comment(s): Some type of heart problems, kidney failure. Father History Unknown: Yes Family Medical History: Unable to Obtain Additional Family Medical History / Comment(s): Patient denies knowing any medical history on her father. Medications and Allergies Home Medications Medication Instructions Recorded Confirmed Type Gabapentin [Neurontin] 600 mg PO TID #90 tablet 01/09/19 05/21/20 Rx INSULIN ASPART (NovoLOG) [NovoLOG See Protocol SQ AC-TID 04/30/19 05/21/20 History (formulary)] Insulin Glargine [Lantus] 35 unit SQ DAILY 04/30/19 05/21/20 History Lisinopril [Zestril] 2.5 mg PO DAILY #30 tab 05/04/19 05/21/20 Rx Spironolactone [Aldactone] 25 mg PO BID 07/26/19 05/21/20 History Apixaban [Eliquis] 5 mg PO BID 07/27/19 05/21/20 History Furosemide [Lasix] 40 mg PO BID 08/20/19 05/21/20 History Ipratropium-Albuterol Nebulize 3 ml INHALATION RT-DAILY PRN 05/21/20 05/21/20 History [Duoneb 0.5 mg-3 mg/3 ml Soln] Lacosamide [Vimpat] 50 mg PO DAILY 05/21/20 05/21/20 History Metoprolol Succinate [Toprol XL] 50 mg PO DAILY 05/21/20 05/21/20 History Naproxen Sod/Diphenhydramine 2 tab PO HS 05/21/20 05/21/20 History [Aleve Pm Caplet] Naproxen Sodium [Aleve] 440 mg PO DAILY 05/21/20 05/21/20 History Omeprazole [PriLOSEC] 40 mg PO DAILY 05/21/20 05/21/20 History Allergies Allergy/AdvReac Type Severity Reaction Status Date / Time Penicillins Allergy Rash/Hives Verified 05/21/20 18:43 ondansetron [From Zofran] AdvReac Nausea & Verified 05/21/20 18:43 Vomiting Surgical - Exam Vital Signs Temp Pulse Resp BP Pulse Ox 98.4 F 107 H 18 118/65 99 05/21/20 16:05 05/21/20 16:05 05/21/20 16:05 05/21/20 16:05 05/21/20 16:05 Results - Labs 05/22/20 10:09 05/22/20 10:09 Abnormal Lab Results - Last 24 Hours (Table) 05/21/20 05/21/20 05/21/20 Range/Units 17:51 17:57 17:57 Hgb 7.5 L (11.4-16.0) gm/dL Hct 27.7 L (34.0-46.0) % MCV 63.2 L (80.0-100.0) fL MCH 17.2 L (25.0-35.0) pg MCHC 27.2 L (31.0-37.0) g/dL RDW 17.0 H (11.5-15.5) % Lymphocytes # (1.0-4.8) k/uL PT 12.3 H (9.0-12.0) sec INR 1.2 H (<1.2) Sodium (137-145) mmol/L BUN (7-17) mg/dL Glucose 149 H (74-99) mg/dL POC Glucose (mg/dL) (75-99) mg/dL Calcium 8.3 L (8.4-10.2) mg/dL ALT 40 H (4-34) U/L Alkaline Phosphatase 141 H (38-126) U/L 05/22/20 05/22/20 05/22/20 Range/Units 07:44 10:09 10:09 Hgb 8.3 L (11.4-16.0) gm/dL Hct 30.4 L (34.0-46.0) % MCV 66.8 L (80.0-100.0) fL MCH 18.2 L (25.0-35.0) pg MCHC 27.3 L (31.0-37.0) g/dL RDW 16.8 H (11.5-15.5) % Lymphocytes # 0.7 L (1.0-4.8) k/uL PT (9.0-12.0) sec INR (<1.2) Sodium 136 L (137-145) mmol/L BUN 21 H (7-17) mg/dL Glucose 234 H (74-99) mg/dL POC Glucose (mg/dL) 239 H (75-99) mg/dL Calcium 8.2 L (8.4-10.2) mg/dL ALT (4-34) U/L Alkaline Phosphatase (38-126) U/L 05/22/20 Range/Units 13:28 Hgb (11.4-16.0) gm/dL Hct (34.0-46.0) % MCV (80.0-100.0) fL MCH (25.0-35.0) pg MCHC (31.0-37.0) g/dL RDW (11.5-15.5) % Lymphocytes # (1.0-4.8) k/uL PT (9.0-12.0) sec INR (<1.2) Sodium (137-145) mmol/L BUN (7-17) mg/dL Glucose (74-99) mg/dL POC Glucose (mg/dL) 215 H (75-99) mg/dL Calcium (8.4-10.2) mg/dL ALT (4-34) U/L Alkaline Phosphatase (38-126) U/L Microbiology - Last 24 Hours (Table) 05/21/20 19:02 Gram Stain - Preliminary Leg - Right Wound Culture - Preliminary Diabetes panel 05/21/20 05/22/20 Range/Units 17:57 10:09 Sodium 137 136 L (137-145) mmol/L Potassium 4.3 4.8 (3.5-5.1) mmol/L Chloride 102 99 (98-107) mmol/L Carbon Dioxide 26 24 (22-30) mmol/L BUN 16 21 H (7-17) mg/dL Creatinine 0.90 0.99 (0.52-1.04) mg/dL Glucose 149 H 234 H (74-99) mg/dL Calcium 8.3 L 8.2 L (8.4-10.2) mg/dL AST 36 (14-36) U/L ALT 40 H (4-34) U/L Alkaline Phosphatase 141 H (38-126) U/L Total Protein 6.9 (6.3-8.2) g/dL Albumin 3.6 (3.5-5.0) g/dL Calcium panel 05/21/20 05/22/20 Range/Units 17:57 10:09 Calcium 8.3 L 8.2 L (8.4-10.2) mg/dL Albumin 3.6 (3.5-5.0) g/dL Pituitary panel 05/21/20 05/22/20 Range/Units 17:57 10:09 Sodium 137 136 L (137-145) mmol/L Potassium 4.3 4.8 (3.5-5.1) mmol/L Chloride 102 99 (98-107) mmol/L Carbon Dioxide 26 24 (22-30) mmol/L BUN 16 21 H (7-17) mg/dL Creatinine 0.90 0.99 (0.52-1.04) mg/dL Glucose 149 H 234 H (74-99) mg/dL Calcium 8.3 L 8.2 L (8.4-10.2) mg/dL Adrenal panel 05/21/20 05/22/20 Range/Units 17:57 10:09 Sodium 137 136 L (137-145) mmol/L Potassium 4.3 4.8 (3.5-5.1) mmol/L Chloride 102 99 (98-107) mmol/L Carbon Dioxide 26 24 (22-30) mmol/L BUN 16 21 H (7-17) mg/dL Creatinine 0.90 0.99 (0.52-1.04) mg/dL Glucose 149 H 234 H (74-99) mg/dL Calcium 8.3 L 8.2 L (8.4-10.2) mg/dL Total Bilirubin 0.6 (0.2-1.3) mg/dL AST 36 (14-36) U/L ALT 40 H (4-34) U/L Alkaline Phosphatase 141 H (38-126) U/L Total Protein 6.9 (6.3-8.2) g/dL Albumin 3.6 (3.5-5.0) g/dL
[2020-05-22 18:16] LABS: Glucose,Whole Blood 181 mg/dL (75-99)
--- NOTE | 2020-05-22 18:55 | PN ---
PROGRESS NOTE DATE OF SERVICE: 05/22/2020 This 44-year-old woman was admitted with shortness of breath which is probably multifactorial also has a significant infected wound on the right below-knee stump. The patient is on broad-spectrum IV antibiotics. The cultures are pending at this time. Multiple consultants are following the patient closely. Patient is being closely monitored. Hemoglobin is 8.3 from yesterday. Intake/output charting is not available. Past medical history reviewed. REVIEW OF SYSTEMS: CARDIOVASCULAR SYSTEM: No angina, palpitations. RESPIRATORY SYSTEM: As mentioned earlier. GI: No nausea, vomiting. : No dysuria or retention. NERVOUS SYSTEM: No numbness, weakness. CURRENT MEDICATIONS: Reviewed. They include: 1. [place] 5 mg q.4 p.r.n. 2. DuoNeb q.i.d. and p.r.n. 3. Eliquis 5 mg p.o. b.i.d. 4. Lasix 80 mg b.i.d. 5. Neurontin 600 mg t.i.d. 6. NovoLog scale. 7. Levemir 35 units daily. 8. Vimpat 50 mg p.o. daily. 9. Zestril 22.5 mg p.o. daily. 10.Reglan p.r.n. 11.Toprol-XL. 12.Vancomycin. 13.Morphine. 14.Naprosyn. 15.Protonix. 16.Aldactone. PHYSICAL EXAMINATION: Patient is alert, oriented . Pulse is 93, blood pressure 113/72, respirations 16, temperature 97.8, pulse ox 96% on room air. HEENT: Conjunctivae normal. Oral mucosa moist. NECK: No jugular venous distention. No carotid bruit. No lymph node enlargement. CARDIOVASCULAR SYSTEM: S1, S2 muffled. RESPIRATORY SYSTEM: Breath sounds diminished at the bases. A few scattered rhonchi. ABDOMEN: Soft, obese. LEGS: Right below-knee amputation significant infected stump. NERVOUS SYSTEM: No focal deficit. LABS: WBC 8.6, hemoglobin is 8.3, sodium is 136. Glucose noted. ASSESSMENT: 1. Shortness of breath, possibly multifactorial, with congestive heart failure, acute exacerbation, with acute on chronic systolic dysfunction, ejection fraction 20%, as well as bronchial asthma, acute exacerbation. 2. Right below-knee amputation with infected stump. 3. Anemia, microcytic, possibly nutritional. Rule out gastrointestinal bleed. 4. History of asthma. 5. History of cerebrovascular accident, transient ischemic attack. 6. Diabetes mellitus, type 2. 7. Hypertension. 8. History of myocardial infarction. 9. History of pneumonia. 10.History of seizure disorder. 11.History of methicillin-resistant Staphylococcus aeruginosa, vancomycin- resistant Enterococcus. 12.History of adenoidectomy. 13.History of automated implantable cardioverter defibrillator. 14.History of degenerative joint disease. 15.History of bipolar. 16.History of nicotine dependence. 17.Morbid obesity with body mass index 43.1. 18.Gait dysfunction. RECOMMENDATIONS AND DISCUSSION: I recommend to continue current medications, continue with the monitoring, symptomatic treatment. Continue with the antibiotics. Otherwise at this time I would recommend continuing with the bronchodilators. The patient is also on steroids. The patient is on IV diuretics also. Guarded prognosis because of multiple complex medical issues. Further recommendations to follow. See orders for details. Await cultures and infectious disease evaluation. environmental services project manager consult for possible ECF rehab because of multiple complex medical issues and other social issues. Continue Dr. Hurd. MMODL / PAWELN: [id number] / [facility]ENTERAm[facility]
[2020-05-22 21:33] LABS: Glucose,Whole Blood 170 mg/dL (75-99)
[2020-05-23 06:47] LABS: Glucose,Whole Blood 167 mg/dL (75-99)
[2020-05-23] MEDS: INSULIN ASPART (NovoLOG) 100 UNIT/ML VIAL SQ SCH ×4 (07:49→21:26)
[2020-05-23] MEDS: SPIRONOLACTONE 25 MG TAB PO SCH ×2 (07:50→21:26)
[2020-05-23] MEDS: PANTOPRAZOLE 40 MG TABLET PO SCH (07:50)
[2020-05-23] MEDS: FUROSEMIDE 10 MG/ML 10 ML VIAL IV SCH ×2 (07:50→21:26)
[2020-05-23] MEDS: METOPROLOL SUCCINATE (ER) 50 MG TAB.ER.24H PO SCH (07:50)
[2020-05-23] MEDS: GABAPENTIN 300 MG CAP PO SCH ×3 (07:50→21:27)
[2020-05-23] MEDS: APIXABAN 5 MG TAB PO SCH ×2 (07:50→21:26)
[2020-05-23] MEDS: LACOSAMIDE 50 MG TABLET PO SCH (07:50)
[2020-05-23] MEDS: INSULIN DETEMIR (LEVEMIR) 100 UNIT/ML SYR SQ SCH (07:55)
[2020-05-23] MEDS: NAPROXEN 250 MG TAB PO SCH (07:55)
[2020-05-23] MEDS: VANCOMYCIN 2,000 MG in SODIUM CHLORIDE 0.9% 500 ML 500 ML IVPB SCH (07:55)
[2020-05-23] MEDS: IPRATROPIUM-ALBUTEROL 3 ML NEB INHALATION SCH ×4 (08:33→20:04)
--- NOTE | 2020-05-23 09:45 | P.CONS ---
History of Present Illness - Reason for Consult Consult date: 05/22/20 Infection Requesting physician: Brittany Villafuerte - Chief Complaint Increasing shortness of breath and some discharge from the right BKA stump - History of Present Illness Patient is a 44-year-old female with a past medical history significant for diabetes mellitus her right diabetic foot infection requiring a right below the knee amputation patient subsequently did have a skin necrosis and did have revision of the amputation site patient is now presenting to the [facility] with chief complaints of increasing shortness of breath or orthopnea but no chest pain is also complaining of increasing swelling to the lower extremity and some dizziness drainage from the right below the knee amputation stump wound on the Route area the patient has been afebrile and did have a normal white count the patient has been started on vancomycin and infectious disease has been consulted with concern for possible infection and need for antibiotic therapy At the time my radiation the patient remains to be afebrile her main symptom remains to be shortness of breath she did complain of some dull aching pain to the right BKA stump density 4-5 out of 10 and no radiation the swelling butdifficult redness or foul-smelling and the patient was not on antibiotic in the recent past in the outpatient setting Review of Systems Positive point has been mentioned in the HPI rest of the systems are negative Past Medical History Past Medical History: Asthma, Heart Failure, COPD, CVA/TIA, Diabetes Mellitus, Hypertension, Myocardial Infarction ([place]), Pneumonia, Seizure Disorder, Seizure Disorder, Vascular Disorder Additional Past Medical History / Comment(s): IDDM type II, neuropathy L foot, viral cardiomyopathy, 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 Last Myocardial Infarction Date:: 06/2018 History of Any Multi-Drug Resistant Organisms: MRSA, VRE, VRE Year Discovered:: 2017 MDRO Source:: bilat feet Past Surgical History: Adenoidectomy, AICD, Section, Heart Catheterization, Orthopedic Surgery, Pacemaker, Tonsillectomy Additional Past Surgical History / Comment(s): AICD/pacer, CONY, R foot toes all amputated/R BKA with revision and I&D, L foot great toe amp/partial L foot amp, corrective eye surgery L eye for strabismus. Past Anesthesia/Blood Transfusion Reactions: Motion Sickness, Postoperative Nausea & Vomiting (PONV) Type of Cardiac Device: Biventricular Pacemaker, Permanent Pacemaker, AICD Device Placement Date:: 2011 Past Psychological History: Bipolar Additional Psychological History / Comment(s): Pt resides with her son. She is wheelchair bound/transfers self. She has home care thru [facility] for wound care. She has 2 cats and 2 birds. She has a glucometer and nebulizer. Smoking Status: Former smoker Past Alcohol Use History: None Reported Additional Past Alcohol Use History / Comment(s): Patient was a smoker of a half a pack cigarettes per day for 32 years and quit in June 2018. Past Drug Use History: Marijuana Additional Drug Use History / Comment(s): Pt smokes marijuana at for a sleep aide or for pain control - Past Family History Mother Family Medical History: Deep Vein Thrombosis (DVT) Additional Family Medical History / Comment(s): Some type of heart problems, kidney failure. Father History Unknown: Yes Family Medical History: Unable to Obtain Additional Family Medical History / Comment(s): Patient denies knowing any medical history on her father. Medications and Allergies Home Medications Medication Instructions Recorded Confirmed Type Gabapentin [Neurontin] 600 mg PO TID #90 tablet 01/09/19 05/21/20 Rx INSULIN ASPART (NovoLOG) [NovoLOG See Protocol SQ AC-TID 04/30/19 05/21/20 History (formulary)] Insulin Glargine [Lantus] 35 unit SQ DAILY 04/30/19 05/21/20 History Lisinopril [Zestril] 2.5 mg PO DAILY #30 tab 05/04/19 05/21/20 Rx Spironolactone [Aldactone] 25 mg PO BID 07/26/19 05/21/20 History Apixaban [Eliquis] 5 mg PO BID 07/27/19 05/21/20 History Furosemide [Lasix] 40 mg PO BID 08/20/19 05/21/20 History Ipratropium-Albuterol Nebulize 3 ml INHALATION RT-DAILY PRN 05/21/20 05/21/20 History [Duoneb 0.5 mg-3 mg/3 ml Soln] Lacosamide [Vimpat] 50 mg PO DAILY 05/21/20 05/21/20 History Metoprolol Succinate [Toprol XL] 50 mg PO DAILY 05/21/20 05/21/20 History Naproxen Sod/Diphenhydramine 2 tab PO HS 05/21/20 05/21/20 History [Aleve Pm Caplet] Naproxen Sodium [Aleve] 440 mg PO DAILY 05/21/20 05/21/20 History Omeprazole [PriLOSEC] 40 mg PO DAILY 05/21/20 05/21/20 History Allergies Allergy/AdvReac Type Severity Reaction Status Date / Time Penicillins Allergy Rash/Hives Verified 05/21/20 18:43 ondansetron [From Zofran] AdvReac Nausea & Verified 05/21/20 18:43 Vomiting Physical Exam Vitals: Vital Signs Temp Pulse Pulse Resp BP Pulse Ox 05/23/20 08:44 84 05/23/20 08:35 88 05/23/20 07:00 97.5 F L 89 17 118/79 98 05/23/20 03:04 18 05/23/20 01:27 98.0 F 88 97/57 97 05/22/20 18:53 97.7 F 85 18 109/67 98 05/22/20 15:41 80 05/22/20 15:31 80 05/22/20 14:19 97.8 F 93 16 113/70 96 05/22/20 12:25 88 05/22/20 12:13 79 Intake and Output 05/22/20 05/23/20 05/23/20 22:59 06:59 14:59 Output Total 400 Balance -400 Output: Urine 400 Other: Voiding Method Bedside Commode # Voids 1 Weight 124.738 kg GENERAL DESCRIPTION: Middle-aged female lying in bed, no distress. No tachypnea or accessory muscle of respiration use. HEENT: Shows Pallor , no scleral icterus. Oral mucous membrane is dry. No pharyngeal erythema or thrush NECK: Trachea central, no thyromegaly. LUNGS: Unlabored breathing. Clear to auscultation anteriorly. No wheeze or crackle. HEART: S1, S2, regular rate and rhythm. No loud murmur ABDOMEN: Soft, no tenderness , guarding or rigidity, no organomegaly EXTREMITIES: Right BKA stump wound did have some slough tissue surrounding swelling but no redness or any foul-smelling SKIN: No rash, no masses palpable. NEUROLOGICAL: The patient is awake, alert, oriented x3, mood and affect normal. Results CBC & Chem 7: 05/22/20 10:09 05/22/20 10:09 Labs: Abnormal Lab Results - Last 24 Hours (Table) 05/22/20 05/22/20 05/22/20 Range/Units 10:09 10:09 13:28 Hgb 8.3 L (11.4-16.0) gm/dL Hct 30.4 L (34.0-46.0) % MCV 66.8 L (80.0-100.0) fL MCH 18.2 L (25.0-35.0) pg MCHC 27.3 L (31.0-37.0) g/dL RDW 16.8 H (11.5-15.5) % Lymphocytes # 0.7 L (1.0-4.8) k/uL Sodium 136 L (137-145) mmol/L BUN 21 H (7-17) mg/dL Glucose 234 H (74-99) mg/dL POC Glucose (mg/dL) 215 H (75-99) mg/dL Calcium 8.2 L (8.4-10.2) mg/dL 05/22/20 05/22/20 05/23/20 Range/Units 18:14 21:32 06:45 Hgb (11.4-16.0) gm/dL Hct (34.0-46.0) % MCV (80.0-100.0) fL MCH (25.0-35.0) pg MCHC (31.0-37.0) g/dL RDW (11.5-15.5) % Lymphocytes # (1.0-4.8) k/uL Sodium (137-145) mmol/L BUN (7-17) mg/dL Glucose (74-99) mg/dL POC Glucose (mg/dL) 181 H 170 H 167 H (75-99) mg/dL Calcium (8.4-10.2) mg/dL Microbiology - Last 24 Hours (Table) 05/21/20 19:32 Blood Culture - Preliminary Blood No Growth after 24 hours 05/21/20 19:02 Gram Stain - Preliminary Leg - Right Wound Culture - Preliminary Gram Neg Bacilli Assessment and Plan Assessment: 1- patient with her right hand BKA stump wound as results of the primary of the skin necrosis from the patient falling on it now presented to the hospital predominantly with fluid overload and CHF clinically suspicious for underlying cellulitis/infection has no significant redness no fever or elevated white count 2-Patient with multiple antibiotic ALLERGIES that would limit the number of antibiotic safe to use (1) Leg wound, right Current Visit: Yes Status: Acute Code(s): S81.801A - UNSPECIFIED OPEN WOUND, RIGHT LOWER LEG, INITIAL ENCOUNTER SNOMED Code(s): 853774975 Plan: 1- local wound care with the medihoney followed by moist dressing to be changed daily 2-discontinue vancomycin We will follow on clinical condition and cultures to further adjust medication if needed Thank you for this consultation will follow this patient with you Time with Patient: Greater than 30
[2020-05-23 10:36] LABS: Calcium 8.1 mg/dL (8.4-10.2)
[2020-05-23 11:17] LABS: Anisocytosis Slight; Basophils # (A) 0.1 k/uL (0-0.2); Basophils % (A) 0 %; Eosinophils % (A) 0 %; HCT 31.3 % (34.0-46.0); HGB 8.3 gm/dL (11.4-16.0); Hypochromasia Marked; Lymphocytes # (A) 1.5 k/uL (1.0-4.8); Lymphocytes % (A) 11 %; MCH 17.3 pg (25.0-35.0); MCHC 26.4 g/dL (31.0-37.0); MCV 65.5 fL (80.0-100.0); Microcytosis Marked; Monocytes # (A) 0.9 k/uL (0-1.0); Monocytes % (A) 6 %; Neutrophils # (A) 11.7 k/uL (1.3-7.7); Neutrophils % (A) 81 %; Platelet Count 303 k/uL (150-450); Poikilocytosis Slight; RBC 4.79 m/uL (3.80-5.40); WBC 14.4 k/uL (3.8-10.6)
[2020-05-23 11:23] LABS: Glucose,Whole Blood 153 mg/dL (75-99)
[2020-05-23 11:57] LABS: Ovalocytes Present; Polychromasia Present
--- NOTE | 2020-05-23 12:14 | P.PN ---
Subjective HISTORY OF PRESENTING ILLNESS This is a pleasant 44-year-old female past medical history significant for nonischemic idiopathic cardiomyopathy status post by the ICD implantation in 2011, hypertension, chronic systolic heart failure, diabetes mellitus, dyslipidemia and morbid obesity. She follows in the office with Dr. Roldan, however she has not been to the office since 07/2018. She is seen and examined resting comfortably laying in bed. Currently she is not short of breath however she states if she moves around at all she becomes quite dyspneic. She denies chest pain, dizziness or palpitations. Laboratory data reviewed, WBC 14.4, hemoglobin 8.3, platelets 303, sodium 136, potassium 5, creatinine 1.5. Blood pressure 118/79 heart rate 84 afebrile maintaining oxygen saturation on nasal cannula. Output for the previous 24 hours reveals she is maintaining a negative fluid balance with 1000 mL of output. PHYSICAL EXAMINATION CONSTITUTIONAL: No apparent distress. HEENT: Head is normocephalic. Pupils are equal, round. Sclerae anicteric. Mucous membranes of the mouth are moist. No JVD. No carotid bruit. CHEST EXAMINATION: Faint bibasilar rales. No wheezes or rhonchi. No chest wall tenderness is noted on palpation or with deep breathing. HEART EXAMINATION: Regular rate and rhythm. S1, S2 heard. No murmurs, gallops or rub. EXTREMITIES: Right BKA with dressing in place. Left lower extremity 2+ pitting edema with all 5 toes amputated. ASSESSMENT Acute on chronic systolic heart failure secondary to cutting down home lasix dose Right BKA with stump infection Anemia Leukocytosis History of cardiac thrombus and splenic infarct on mcc eliquis Idiopathic cardiomyopathy s/p ICD implantation Hypertension Diabetes mellitus Morbid obesity, BMI 43 PLAN Continue IV Lasix at current dose. Follow renal function and electrolytes in the morning. Further recommendations to follow. Nurse Practitioner note has been reviewed, I agree with a documented findings and plan of care. Patient was seen and examined. Objective - Vital Signs Vital signs: Vital Signs Temp 97.5 F L 05/23/20 07:00 Pulse 84 05/23/20 08:44 Resp 17 05/23/20 07:00 BP 118/79 05/23/20 07:00 Pulse Ox 98 05/23/20 07:00 Intake & Output 05/22/20 05/23/20 05/23/20 18:59 06:59 18:59 Intake Total 200 Output Total 600 400 Balance -400 -400 Weight 124.738 kg Intake: Oral 200 Output: Urine 600 400 Other: Voiding Method Bedside Commode Bedside Commode # Voids 1 - Labs CBC & Chem 7: 05/23/20 09:36 05/23/20 09:36 Labs: Abnormal Lab Results - Last 24 Hours (Table) 05/22/20 05/22/20 05/22/20 Range/Units 13:28 18:14 21:32 WBC (3.8-10.6) k/uL Hgb (11.4-16.0) gm/dL Hct (34.0-46.0) % MCV (80.0-100.0) fL MCH (25.0-35.0) pg MCHC (31.0-37.0) g/dL RDW (11.5-15.5) % Sodium (137-145) mmol/L Carbon Dioxide (22-30) mmol/L BUN (7-17) mg/dL Creatinine (0.52-1.04) mg/dL Glucose (74-99) mg/dL POC Glucose (mg/dL) 215 H 181 H 170 H (75-99) mg/dL Calcium (8.4-10.2) mg/dL 05/23/20 05/23/20 05/23/20 Range/Units 06:45 09:36 09:36 WBC 14.4 H (3.8-10.6) k/uL Hgb 8.3 L (11.4-16.0) gm/dL Hct 31.3 L (34.0-46.0) % MCV 65.5 L (80.0-100.0) fL MCH 17.3 L (25.0-35.0) pg MCHC 26.4 L (31.0-37.0) g/dL RDW 17.0 H (11.5-15.5) % Sodium 136 L (137-145) mmol/L Carbon Dioxide 21 L (22-30) mmol/L BUN 34 H (7-17) mg/dL Creatinine 1.50 H (0.52-1.04) mg/dL Glucose 137 H (74-99) mg/dL POC Glucose (mg/dL) 167 H (75-99) mg/dL Calcium 8.1 L (8.4-10.2) mg/dL 05/23/20 Range/Units 11:22 WBC (3.8-10.6) k/uL Hgb (11.4-16.0) gm/dL Hct (34.0-46.0) % MCV (80.0-100.0) fL MCH (25.0-35.0) pg MCHC (31.0-37.0) g/dL RDW (11.5-15.5) % Sodium (137-145) mmol/L Carbon Dioxide (22-30) mmol/L BUN (7-17) mg/dL Creatinine (0.52-1.04) mg/dL Glucose (74-99) mg/dL POC Glucose (mg/dL) 153 H (75-99) mg/dL Calcium (8.4-10.2) mg/dL Microbiology - Last 24 Hours (Table) 05/21/20 19:32 Blood Culture - Preliminary Blood No Growth after 24 hours 05/21/20 19:02 Gram Stain - Preliminary Leg - Right Wound Culture - Preliminary Gram Neg Bacilli
[2020-05-23 16:30] LABS: Glucose,Whole Blood 135 mg/dL (75-99)
[2020-05-23 21:13] LABS: Glucose,Whole Blood 167 mg/dL (75-99)
--- NOTE | 2020-05-23 22:25 | PN ---
PROGRESS NOTE DATE OF SERVICE: 05/23/2020 This 44-year-old woman was admitted with significant shortness of breath which is multifactorial as well as infected right leg stump. A venous Doppler was done that showed no evidence of DVT. Dr. Hurd and Dr. Blake are following the patient closely. The cultures showed Enterobacter hormaechei, which is multiresistant. Past medical history reviewed. REVIEW OF SYSTEMS: CARDIOVASCULAR SYSTEM: As mentioned earlier. RESPIRATORY SYSTEM: As mentioned earlier. GI: As mentioned earlier. : No dysuria or retention. NERVOUS SYSTEM: No numbness, weakness. MUSCULOSKELETAL: As mentioned earlier. CURRENT MEDICATIONS: Reviewed. They include [place], DuoNeb, Eliquis, Lasix, Neurontin, NovoLog, Levemir, Vimpat, Zestril, Reglan, Toprol, Protonix, Naprosyn, Aldactone, morphine. PHYSICAL EXAMINATION: Patient is alert, oriented x3. The pulse is 82, blood pressure 116/76, respiration 17, temperature 97.8, pulse ox 99% on 2 L. HEENT: Conjunctivae normal. NECK: No jugular venous distention. CARDIOVASCULAR SYSTEM: S1, S2 muffled. RESPIRATORY SYSTEM: Breath sounds diminished at the bases. A few scattered rhonchi. ABDOMEN: Soft. Obese. RIGHT LEG: Below-knee amputation noted. NERVOUS SYSTEM: No focal deficit. LABS: WBC 14.4, hemoglobin is 8.3. Sodium 136. ASSESSMENT: 1. Shortness of breath, possibly multifactorial, with congestive heart failure, acute exacerbation, with acute on chronic systolic dysfunction, ejection fraction 20%, as well as bronchial asthma, acute exacerbation. 2. Right below-knee amputation with infected stump. 3. Enterobacter hormaechei from the cultures. 4. Anemia, microcytic; possibly nutritional. 5. History of asthma. 6. History of cerebrovascular accident, transient ischemic attack. 7. Diabetes mellitus, type 2. 8. Hypertension. 9. History of myocardial infarction. 10.History of pneumonia. 11.History of seizure disorder. 12.History of methicillin-resistant Staphylococcus aeruginosa as well as vancomycin- resistant Enterococcus. 13.History of adenoidectomy. 14.History of automated implantable cardioverter defibrillator. 15.History of degenerative joint disease. 16.History of bipolar. 17.History of nicotine dependence. 18.Morbid obesity with a body mass index of 43.1. 19.Gait dysfunction. 20.FULL CODE. RECOMMENDATIONS AND DISCUSSION: In this 44-year-old woman who presented with multiple complex medical issues, we will monitor the patient closely, continue the current medications, continue with symptomatic treatment. Otherwise, follow the cultures. The patient was on vancomycin, which was stopped. We will continue to monitor along with Infectious Disease and Vascular Surgery. Guarded prognosis. Further recommendations to follow. MMODL / IJN: [id number] /
--- NOTE | 2020-05-23 22:55 | PN ---
PROGRESS NOTE DATE OF SERVICE: 05/23/2020 REASON FOR FOLLOWUP: Right BKA stump wound and a question of cellulitis. INTERVAL HISTORY: Patient is currently afebrile. She is breathing slightly uncomfortably. Denies having any chest pain. No cough. No nausea, no vomiting, no abdominal pain or any worsening pain to the right big BKA stump wound area. PHYSICAL EXAMINATION: Blood pressure 113/76 with a pulse of 82, temperature 97.8, she is 99% on 2 L nasal cannula. General description is a middle-aged female up in the chair in no distress. Respiratory system: Unlabored breathing, clear to auscultation anteriorly. Heart S1, S2. Regular rate and rhythm. Abdomen is soft, no tenderness. Right BKA stump is currently dressed with no drainage on the dressing. [place]S: [place] [id number] today with wound culture did grow enterobacter. DIAGNOSTIC IMPRESSION AND PLAN: Patient with right below the knee amputation stump wound with concern for possible secondary cellulitis. Wound culture now showing enterobacter and white count has jumped up. We will add cefepime 2 grams q.12, continue local wound care as ordered and monitor clinical course closely. MMODL / IJN: [id number] /
[2020-05-23] MEDS: CEFEPIME 2 GM in SODIUM CHLORIDE 0.9% 100 ML IVPB SCH (23:14)
[2020-05-24 06:54] LABS: Glucose,Whole Blood 119 mg/dL (75-99)
[2020-05-24] MEDS: INSULIN ASPART (NovoLOG) 100 UNIT/ML VIAL SQ SCH ×4 (07:06→20:30)
[2020-05-24] MEDS: FUROSEMIDE 10 MG/ML 10 ML VIAL IV SCH ×2 (07:15→20:30)
[2020-05-24] MEDS: METOPROLOL SUCCINATE (ER) 50 MG TAB.ER.24H PO SCH (07:15)
[2020-05-24] MEDS: PANTOPRAZOLE 40 MG TABLET PO SCH (07:16)
[2020-05-24] MEDS: NAPROXEN 250 MG TAB PO SCH (07:18)
[2020-05-24] MEDS: LACOSAMIDE 50 MG TABLET PO SCH (07:19)
[2020-05-24] MEDS: GABAPENTIN 300 MG CAP PO SCH ×3 (07:19→20:32)
[2020-05-24] MEDS: APIXABAN 5 MG TAB PO SCH ×2 (07:19→20:32)
[2020-05-24] MEDS: INSULIN DETEMIR (LEVEMIR) 100 UNIT/ML SYR SQ SCH (07:20)
[2020-05-24] MEDS: SPIRONOLACTONE 25 MG TAB PO SCH ×2 (07:20→20:31)
[2020-05-24 07:25] LABS: Calcium 8.2 mg/dL (8.4-10.2); Potassium 4.7 mmol/L (3.5-5.1)
[2020-05-24 07:49] LABS: Anisocytosis Slight; Basophils # (A) 0.1 k/uL (0-0.2); Basophils % (A) 0 %; Eosinophils # (A) 0.1 k/uL (0-0.7); Eosinophils % (A) 1 %; HCT 31.1 % (34.0-46.0); HGB 8.6 gm/dL (11.4-16.0); Hypochromasia Marked; Lymphocytes # (A) 2.4 k/uL (1.0-4.8); Lymphocytes % (A) 17 %; MCH 18.1 pg (25.0-35.0); MCHC 27.7 g/dL (31.0-37.0); MCV 65.4 fL (80.0-100.0); Mean Platelet Volume 9.6; Microcytosis Marked; Monocytes # (A) 0.8 k/uL (0-1.0); Monocytes % (A) 6 %; Neutrophils # (A) 10.6 k/uL (1.3-7.7); Neutrophils % (A) 75 %; Platelet Count 320 k/uL (150-450); Poikilocytosis Slight; RBC 4.76 m/uL (3.80-5.40); RDW 17.1 % (11.5-15.5); WBC 14.1 k/uL (3.8-10.6)
[2020-05-24] MEDS ORDERED: VANCOMYCIN TROUGH DUE 1 EACH MISC MISCELLANE ONE (08:00)
[2020-05-24] MEDS: IPRATROPIUM-ALBUTEROL 3 ML NEB INHALATION SCH ×4 (08:15→20:00)
[2020-05-24] MEDS: CEFEPIME 2 GM in SODIUM CHLORIDE 0.9% 100 ML IVPB SCH (10:31)
[2020-05-24 11:31] LABS: Glucose,Whole Blood 160 mg/dL (75-99)
--- NOTE | 2020-05-24 15:36 | PN ---
PROGRESS NOTE DATE OF SERVICE: 05/24/2020 REASON FOR FOLLOWUP: Right BKA stump wound with concern for ( ) infection. INTERVAL HISTORY: The patient are currently afebrile. The patient is breathing comfortably. Denies having any chest pain or any cough. No nausea, vomiting. No abdominal pain. No pain to the right BKA stump wound area. PHYSICAL EXAMINATION: Blood pressure 122/79 with a pulse of 80, temperature 97.4. She is 98% on room air. General description is a middle-aged female up in the chair in no distress. Respiratory system: Unlabored breathing, clear to auscultation anteriorly. Heart S1, S2. Regular rate and rhythm. Abdomen soft, no tenderness. Right BKA stump wound currently dressed. No drainage on the dressing. LABS: White count 14.1. DIAGNOSTIC IMPRESSION AND PLAN: Patient with right below the knee amputation stump wound with secondary cellulitis. Culture positive for Enterobacter. Patient on cefepime, dose has been cut back to once daily per pharmacy. We will continue local wound care with [facility] and monitor clinical course closely. Continue supportive care. MMODL / IJN: [id number] /
[2020-05-24 16:45] LABS: Glucose,Whole Blood 158 mg/dL (75-99)
[2020-05-24] MEDS: HYDROcodone/APAP 5-325MG 1 EACH TAB PO PRN (20:31)
[2020-05-24 20:36] LABS: Glucose,Whole Blood 140 mg/dL (75-99)
--- NOTE | 2020-05-24 20:47 | PN ---
PROGRESS NOTE 44-year-old lady with history of cardiomyopathy, AICD, chronic systolic heart failure, diabetes, dyslipidemia, morbid obesity, who is admitted to hospital with acute exacerbation of chronic systolic heart failure. She also has right below-knee amputation with stump infection, anemia, leukocytosis, cardiac thrombus with splenic infarct on long-term Eliquis. This morning she is feeling better. On exam heart rate is 80 beats per minute. Blood pressure 102/70. Respiratory rate is 18, O2 saturation is 98%. There is no jugular venous distention. Chest exam reveals good air entry bilaterally. Heart exam reveals first and second heart sounds. Has a systolic murmur at the left lower sternal border. Abdomen is soft. Exam of extremities reveals right side amputation. Left toes are amputated. Labs show a BUN of 48, creatinine 1.7, hemoglobin is 8.6. ASSESSMENT: Acute exacerbation of chronic systolic heart failure. PLAN: I will continue the IV Lasix. Continue the Zestril, Toprol, and Eliquis that she is currently on. MMEDINL / PAWELN: [id number] /
--- NOTE | 2020-05-24 21:17 | PN ---
PROGRESS NOTE DATE OF SERVICE: 05/24/2020 This 44-year-old woman who was admitted with significant shortness of breath also had right below-knee amputation. The cultures are growing Enterobacter homaechei. The patient is being closely monitored. No chest pain. No palpitations. No fever. PHYSICAL EXAMINATION: Alert and oriented x3. Pulse is 88, blood pressure 106/66, respirations 16, temperature 97.8, pulse ox 97% on 2 L. HEENT: Conjunctivae normal. Oral mucosa moist. NECK: No jugular venous distention. No lymph node enlargement. CARDIOVASCULAR: S1, S2, muffled. No S3, no S4, RESPIRATORY: Diminished breath sounds at the bases. A few scattered rhonchi, no crackles. ABDOMEN: Soft, obese. LEGS: Status post left metatarsal excision as well as right below-knee amputation. LAB STUDIES: WBC 14.3, hemoglobin is 8.6, sodium 137, potassium 4.7. ASSESSMENT: 1. Shortness of breath possibly multifactorial with congestive heart failure acute exacerbation with acute on chronic systolic dysfunction, ejection fraction 20%, as well as bronchial asthma acute exacerbation. 2. Right below-knee amputation with infected stump. 3. Enterobacter homaechei from the cultures. 4. Anemia, microcytic, possibly nutritional. 5. History of asthma. 6. History of cerebrovascular accident, transient ischemic attack. 7. Diabetes type 2. 8. Hypertension. 9. History of myocardial infarction. 10.History of pneumonia. 11.History of seizure disorder. 12.History of MRSA as well as VRE. 13.History of adenoidectomy. 14.History of AICD. 15.History of degenerative joint disease. 16.History of bipolar. 17.History of nicotine dependence. 18.Morbid obesity with body mass index of 43.0. 19.Gait dysfunction. 20.FULL CODE. RECOMMENDATIONS AND DISCUSSION: I recommend to continue current medications, continue to monitor, symptomatic treatment. Repeat labs. Continue the antibiotics. Continue the bronchodilators. Monitor blood sugars. The patient is on cefepime as well. Guarded prognosis. Further recommendations to follow. MMODL / IJN: [id number] /
[2020-05-25] MEDS: HYDROcodone/APAP 5-325MG 1 EACH TAB PO PRN ×3 (01:11→11:36)
[2020-05-25 06:51] LABS: Glucose,Whole Blood 132 mg/dL (75-99)
[2020-05-25] MEDS: IPRATROPIUM-ALBUTEROL 3 ML NEB INHALATION SCH ×4 (07:47→20:31)
[2020-05-25] MEDS: INSULIN ASPART (NovoLOG) 100 UNIT/ML VIAL SQ SCH ×4 (08:51→21:38)
[2020-05-25] MEDS: GABAPENTIN 300 MG CAP PO SCH ×3 (09:03→20:54)
[2020-05-25] MEDS: FUROSEMIDE 10 MG/ML 10 ML VIAL IV SCH (09:03)
[2020-05-25] MEDS: SPIRONOLACTONE 25 MG TAB PO SCH (09:03)
[2020-05-25] MEDS: PANTOPRAZOLE 40 MG TABLET PO SCH (09:03)
[2020-05-25] MEDS: METOPROLOL SUCCINATE (ER) 50 MG TAB.ER.24H PO SCH (09:03)
[2020-05-25] MEDS: LACOSAMIDE 50 MG TABLET PO SCH (09:03)
[2020-05-25] MEDS: NAPROXEN 250 MG TAB PO SCH (09:04)
[2020-05-25] MEDS: APIXABAN 5 MG TAB PO SCH ×2 (09:04→20:55)
[2020-05-25] MEDS: INSULIN DETEMIR (LEVEMIR) 100 UNIT/ML SYR SQ SCH (09:04)
[2020-05-25] MEDS: METOCLOPRAMIDE 5 MG/ML 2 ML VIAL IVP PRN (09:07)
[2020-05-25] MEDS: CEFEPIME 2 GM in SODIUM CHLORIDE 0.9% 100 ML IVPB SCH (10:24)
[2020-05-25 11:23] LABS: Glucose,Whole Blood 124 mg/dL (75-99)
--- NOTE | 2020-05-25 15:33 | PN ---
CONSULTATION Flaca is a 44-year-old lady with complex and multiple cardiac problems. Admitted to hospital with acute exacerbation of chronic systolic heart failure. She is comfortable at rest. Denies chest pain or difficulty in breathing. On exam, heart rate is 85 beats per minute. Blood pressure is 140/60, respiratory rate is 16, O2 saturation is 99%. Afebrile. There is no jugular venous distention. Carotid upstroke is diminished. There is no bruit. Chest exam reveals good air entry bilaterally. Heart exam reveals first and second heart sounds. Systolic murmur at the apex. Abdomen is soft. Exam of extremities reveals right below-knee amputation, mild left leg edema and amputation of the left foot toes. Hemoglobin is normal at 8.6, platelet count is 320. ASSESSMENT: Acute exacerbation of chronic systolic heart failure. PLAN: Patient is doing better. I will continue the IV Lasix. Labs show that the potassium was 4.7 yesterday. Creatinine is elevated at 1.7. I am going to the change the Lasix to p.o. 40 mg b.i.d. MMODL / IJN: [id number] /
[2020-05-25] MEDS ORDERED: FUROSEMIDE 40 MG TAB PO SCH (16:00)
[2020-05-25 17:17] LABS: Glucose,Whole Blood 141 mg/dL (75-99)
--- NOTE | 2020-05-25 17:58 | XR ---
EXAMINATION TYPE: XR chest 1V portable DATE OF EXAM: 05/25/2020 COMPARISON: 05/21/2020 HISTORY: Weakness TECHNIQUE: FINDINGS: Heart is enlarged. There is no heart failure. There is some mild atelectasis in the lower l johnny nieves. There is left axillary pacemaker. IMPRESSION: Cardiomegaly with some mild atelectasis in the lower lobes similar to recent exam. No hea rt failure seen.
[2020-05-25] MEDS: PANTOPRAZOLE 40 MG/10 ML VIAL IVP SCH (20:54)
[2020-05-25 21:21] LABS: Glucose,Whole Blood 149 mg/dL (75-99)
--- NOTE | 2020-05-25 23:19 | PN ---
PROGRESS NOTE DATE OF SERVICE: 05/25/2020 This 44-year-old woman who was admitted with shortness of breath is being closely monitored. No chest pain. No palpitations. No fever. Patient also had leg wound also. Cultures in the leg wound growing Enterobacter. No chest pain. No palpitations. No fever. PAST MEDICAL HISTORY: Reviewed. REVIEW OF SYSTEMS: CARDIOVASCULAR SYSTEM: No angina. RESPIRATORY SYSTEM: As mentioned earlier. GI: As mentioned earlier. : No dysuria. NERVOUS SYSTEM: As mentioned earlier. CURRENT MEDICATIONS: Current medications include apixaban, cefepime, Lasix, gabapentin, hydrocodone, insulin, Combivent, lisinopril, lacosamide, metoclopramide, metoprolol, Naprosyn, Protonix and Aldactone. PHYSICAL EXAMINATION: On exam, alert and oriented x3. Pulse 73, blood pressure 97/66, respirations 16, temperature 97.4, pulse ox 99% on 1 L. HEENT: Conjunctivae normal. NECK: No jugular venous distention. CARDIOVASCULAR: S1, S2 muffled. RESPIRATORY: Breath sounds diminished at the bases. A few scattered rhonchi and crackles. ABDOMEN: Soft. LEGS: Right leg wound. NERVOUS SYSTEM: No focal deficits. LAB STUDIES: WBC 14.1, hemoglobin is 8.6. Other labs are noted. ASSESSMENT: 1. Shortness of breath possibly multifactorial, congestive heart failure acute exacerbation with acute on chronic systolic dysfunction ejection fraction 20%, as well as bronchial asthma acute exacerbation. 2. Right below-knee amputation with infected stump. 3. Enterobacter hormaechei from the cultures. 4. Anemia microcytic possibly nutrition. 5. History of asthma, chronic intermittent. 6. History of cerebrovascular accident, transient ischemic attack. 7. Diabetes mellitus type 2. 8. Hypertension. 9. History of myocardial infarction. 10.History of pneumonia. 11.History of seizure disorder. 12.History of MRSA and VRE. 13.History of adenoidectomy. 14.History of automated implantable cardioverter-defibrillator. 15.History of degenerative joint disease. 16.History of bipolar. 17.History of nicotine dependence. 18.Morbid obesity with body mass index of 43. 19.Gait dysfunction. 20.Acute renal failure possibly diuretic induced. 21.FULL CODE. RECOMMENDATIONS AND DISCUSSION: Recommend to continue current medications. Continue with monitoring and symptomatic treatment. Otherwise at this time I would recommend to continue to monitor, continue the current medications. We will back off the diuretics now because of the development of renal failure. We will hold the lisinopril also at this time. Avoid nephrotoxic medications. We will stop the Aldactone and Naprosyn as well. Continue to monitor. Order the the repeat labs tomorrow also. SONNY / PAWELN: [id number] /
[2020-05-26] MEDS: HYDROcodone/APAP 5-325MG 1 EACH TAB PO PRN ×3 (01:05→21:43)
--- NOTE | 2020-05-26 05:07 | PN ---
PROGRESS NOTE DATE OF SERVICE: 05/25/2020 REASON FOR FOLLOWUP: Right BKA stump wound infection. INTERVAL HISTORY: The patient is currently afebrile. The patient is breathing comfortably. She is complaining of some heaviness to the right leg. Denies having any chest pain or shortness of breath or cough. No nausea, no vomiting. No abdominal pain, no diarrhea. PHYSICAL EXAMINATION: Blood pressure is 126/79 with a pulse of 76, temperature 97.5. She is 98% on room air. General description is a middle-aged female lying in bed in no distress. RESPIRATORY SYSTEM: Unlabored breathing, clear to auscultation anteriorly. HEART: S1, S2. Regular rate and rhythm. ABDOMEN: Soft, no tenderness. Right BKA stump wound is currently dressed. No obvious drainage on the dressing. LABS: No new labs have been obtained today. DIAGNOSTIC IMPRESSION AND PLAN: Patient with right below knee amputation stump wound with possible secondary cellulitis infection. Wound culture with Enterobacter. Patient is currently on cefepime 2 grams q.12 to continue. Local wound care with Medihoney followed by moist dressing. Hopefully finish therapy with oral antibiotic on discharge. Continue with supportive care. MMODL / IJN: [id number] /
[2020-05-26 07:00] LABS: Glucose,Whole Blood 147 mg/dL (75-99)
[2020-05-26] MEDS: INSULIN ASPART (NovoLOG) 100 UNIT/ML VIAL SQ SCH ×4 (07:36→21:41)
[2020-05-26] MEDS: METOPROLOL SUCCINATE (ER) 50 MG TAB.ER.24H PO SCH (07:37)
[2020-05-26] MEDS: LACOSAMIDE 50 MG TABLET PO SCH (07:37)
[2020-05-26] MEDS: GABAPENTIN 300 MG CAP PO SCH (07:37)
[2020-05-26] MEDS: APIXABAN 5 MG TAB PO SCH ×2 (07:38→21:41)
[2020-05-26] MEDS: PANTOPRAZOLE 40 MG/10 ML VIAL IVP SCH (07:38)
[2020-05-26] MEDS: CEFEPIME 2 GM in SODIUM CHLORIDE 0.9% 100 ML IVPB SCH (07:38)
[2020-05-26] MEDS: INSULIN DETEMIR (LEVEMIR) 100 UNIT/ML SYR SQ SCH (07:38)
[2020-05-26] MEDS: IPRATROPIUM-ALBUTEROL 3 ML NEB INHALATION SCH ×4 (08:43→20:15)
[2020-05-26 08:58] LABS: Anisocytosis Slight; Basophils % (A) 0 %; Eosinophils # (A) 0.1 k/uL (0-0.7); Eosinophils % (A) 1 %; HGB 8.7 gm/dL (11.4-16.0); Hypochromasia Marked; Lymphocytes # (A) 1.1 k/uL (1.0-4.8); Lymphocytes % (A) 10 %; MCH 18.1 pg (25.0-35.0); MCHC 27.1 g/dL (31.0-37.0); MCV 66.7 fL (80.0-100.0); Mean Platelet Volume 8.3; Microcytosis Marked; Monocytes # (A) 0.8 k/uL (0-1.0); Monocytes % (A) 7 %; Neutrophils # (A) 9.5 k/uL (1.3-7.7); Neutrophils % (A) 80 %; Platelet Count 353 k/uL (150-450); Poikilocytosis Slight; RDW 17.6 % (11.5-15.5); WBC 11.9 k/uL (3.8-10.6)
[2020-05-26 09:00] LABS: Calcium 8.1 mg/dL (8.4-10.2); Potassium 5.2 mmol/L (3.5-5.1)
[2020-05-26] MEDS ORDERED: FUROSEMIDE 20 MG TAB PO SCH (09:00)
[2020-05-26 09:23] LABS: Polychromasia Present
--- NOTE | 2020-05-26 09:58 | P.PN ---
Subjective HISTORY OF PRESENTING ILLNESS This is a pleasant 44-year-old female past medical history significant for nonischemic idiopathic cardiomyopathy status post by the ICD implantation in 2011, hypertension, chronic systolic heart failure, diabetes mellitus, dyslipidemia and morbid obesity. She follows in the office with Dr. Roldan, however she has not been to the office since 07/2018. She is seen and examined sitting up eating breakfast. She states her breathing has significantly improved since admission. She has had no chest pain, dizziness or palpitations. She has been transitioned to oral diuretics and is continued on IV antibiotics. Blood pressure 113/75 heart rate 81 afebrile maintaining oxygen saturation on nasal cannula. Chest x-ray obtained last night revealed some mild atelectasis in the lower lobes with no overt heart failure noted. Laboratory data reviewed, WBC 11.9, hemoglobin 8.7, platelets 353, sodium 134, potassium 5.2, creatinine 2.06. Currently maintained on Eliquis 5 mg twice a day, Lasix 20 mg by mouth daily and Toprol 50 mg daily. PHYSICAL EXAMINATION CONSTITUTIONAL: No apparent distress. HEENT: Head is normocephalic. Pupils are equal, round. Sclerae anicteric. Mucous membranes of the mouth are moist. No JVD. No carotid bruit. CHEST EXAMINATION: Clear bilaterally. No rales, wheezes or rhonchi. No chest wall tenderness is noted on palpation or with deep breathing. HEART EXAMINATION: Regular rate and rhythm. S1, S2 heard. No murmurs, gallops or rub. EXTREMITIES: Right BKA with dressing in place. Left lower extremity 2+ pitting edema with all 5 toes amputated. ASSESSMENT Acute on chronic systolic heart failure secondary to cutting down home lasix dose Right BKA with stump infection Anemia Leukocytosis Acute kidney injury Hyperkalemia History of cardiac thrombus and splenic infarct on correction eliquis Idiopathic cardiomyopathy s/p ICD implantation Hypertension Diabetes mellitus Morbid obesity, BMI 43 PLAN Breathing is stable on current dose of PO lasix. Renal function worsening since admission. Lisinopril and aldactone have been held since admission. Consider nephrology opinion. Nurse Practitioner note has been reviewed, I agree with a documented findings and plan of care. Patient was seen and examined. Objective - Vital Signs Vital signs: Vital Signs Temp 97.3 F L 05/26/20 07:00 Pulse 81 05/26/20 07:00 Resp 20 05/26/20 07:00 BP 113/75 05/26/20 07:00 Pulse Ox 100 05/26/20 07:00 Intake & Output 05/25/20 05/26/20 05/26/20 18:59 06:59 18:59 Intake Total 200 Balance 200 Weight 159.4 kg Intake: Oral 200 Other: Voiding Method Bedside Commode Bedside Commode - Labs CBC & Chem 7: 05/26/20 08:06 05/26/20 08:06 Labs: Abnormal Lab Results - Last 24 Hours (Table) 05/25/20 05/25/20 05/25/20 Range/Units 11:22 17:16 20:55 WBC (3.8-10.6) k/uL Hgb (11.4-16.0) gm/dL Hct (34.0-46.0) % MCV (80.0-100.0) fL MCH (25.0-35.0) pg MCHC (31.0-37.0) g/dL RDW (11.5-15.5) % Neutrophils # (1.3-7.7) k/uL Sodium (137-145) mmol/L Potassium (3.5-5.1) mmol/L Chloride (98-107) mmol/L BUN (7-17) mg/dL Creatinine (0.52-1.04) mg/dL Glucose (74-99) mg/dL POC Glucose (mg/dL) 124 H 141 H 149 H (75-99) mg/dL Calcium (8.4-10.2) mg/dL 05/26/20 05/26/20 05/26/20 Range/Units 06:58 08:06 08:06 WBC 11.9 H (3.8-10.6) k/uL Hgb 8.7 L (11.4-16.0) gm/dL Hct 32.0 L (34.0-46.0) % MCV 66.7 L (80.0-100.0) fL MCH 18.1 L (25.0-35.0) pg MCHC 27.1 L (31.0-37.0) g/dL RDW 17.6 H (11.5-15.5) % Neutrophils # 9.5 H (1.3-7.7) k/uL Sodium 134 L (137-145) mmol/L Potassium 5.2 H (3.5-5.1) mmol/L Chloride 96 L (98-107) mmol/L BUN 69 H (7-17) mg/dL Creatinine 2.06 H (0.52-1.04) mg/dL Glucose 148 H (74-99) mg/dL POC Glucose (mg/dL) 147 H (75-99) mg/dL Calcium 8.1 L (8.4-10.2) mg/dL Microbiology - Last 24 Hours (Table) 05/21/20 19:32 Blood Culture - Preliminary Blood No Growth after 96 hours
[2020-05-26 11:50] LABS: Glucose,Whole Blood 177 mg/dL (75-99)
[2020-05-26 16:53] LABS: Glucose,Whole Blood 176 mg/dL (75-99)
[2020-05-26 18:25] LABS: Hemoglobin A1C 7.9 % (4.0-6.0)
--- NOTE | 2020-05-26 18:48 | PN ---
PROGRESS NOTE DATE OF SERVICE: 05/26/2020 REASON FOR FOLLOWUP: Right BKA stump wound infection. INTERVAL HISTORY: The patient is currently afebrile. She is breathing comfortably. Denies having any chest pain or shortness of breath or cough. No abdominal pain or pain to the right leg wound area. PHYSICAL EXAMINATION: Her blood pressure is 156/71 with a pulse of 71, temperature 97.4. She is 98% on room air. General description is a middle-aged female up in the bed in no distress. RESPIRATORY SYSTEM: Unlabored breathing. Clear to auscultation anteriorly. HEART: S1, S2. Regular rate and rhythm. ABDOMEN: Soft. No tenderness. Right BKA stump is currently dressed. No obvious drainage on the dressing. LABS: White count down to 11.9. Creatinine is 2.06. DIAGNOSTIC IMPRESSION AND PLAN: Patient with right below-knee amputation stump wound infection. Culture has been positive for Enterobacter. Patient is covered with cefepime. White count is showing a downward trend. Local care to continue with Medihoney followed by moist dressing and continue with supportive care. MMODL / IJN: [id number] /
--- NOTE | 2020-05-26 20:16 | P.PN ---
Progress Note - Text Progress Note Date: 05/26/20 History of presenting complaint: This is a pleasant 44-year-old patient of Dr. Causey. Chronic stable medical conditions include congestive heart failure EF 20% from hypertensive heart disease, AICD, COPD, diabetes mellitus type 2 on insulin, hypertension, seizure disorder, peripheral neuropathy secondary to diabetes and multiple toe amputations.. Patient was here in April of 2019r with a splenic infarct and also was found to have a cardiac thrombus for which she is on eliquis. She did have a CONY. Now presented with some shortness of breath and some purulent discharge from the right BKA stump. Admitted with-right BKA stump wound with infection, CHF exacerbation. Today-tired. Did tolerate some diet. Some pain in the stump. Does feel rather lethargic and some nausea. Review of systems: Was done for constitutional, cardiovascular, GI, pulmonary. Neurology, relevant finding as above Active Medications Hydrocodone Bitart/Acetaminophen ([place] 5-325) 1 each PO Q6HR PRN PRN Reason: Pain Last Admin: 05/26/20 07:36 Dose: 1 each Documented by: Albuterol/Ipratropium (Duoneb 0.5 Mg-3 Mg/3 Ml Soln) 3 ml INHALATION RT-QID [facility] Last Admin: 05/26/20 16:14 Dose: Not Given Documented by: Albuterol/Ipratropium (Duoneb 0.5 Mg-3 Mg/3 Ml Soln) 3 ml INHALATION RT-Q2H PRN PRN Reason: Shortness Of Breath Or Wheezing Apixaban (Eliquis) 5 mg PO BID [facility] Last Admin: 05/26/20 07:38 Dose: 5 mg Documented by: Gabapentin (Neurontin) 600 mg PO [facility] Cefepime HCl 2 gm/ Sodium (Chloride) 100 mls @ 200 mls/hr IVPB DAILY [facility] Last Admin: 05/26/20 07:38 Dose: 200 mls/hr Documented by: Insulin Aspart (Novolog) 0 unit SQ ACHS [facility]; Protocol Last Admin: 05/26/20 17:05 Dose: 3 unit Documented by: Insulin Detemir (Levemir) 35 unit SQ DAILY [facility] Last Admin: 05/26/20 07:38 Dose: 35 unit Documented by: Lacosamide (Vimpat) 50 mg PO DAILY [facility] Last Admin: 05/26/20 07:37 Dose: 50 mg Documented by: Metoclopramide HCl (Reglan) 10 mg IVP Q6HR PRN PRN Reason: Nausea Last Admin: 05/25/20 09:07 Dose: 10 mg Documented by: Metoprolol Succinate (Toprol Xl) 50 mg PO DAILY [facility] Last Admin: 05/26/20 07:37 Dose: 50 mg Documented by: Morphine Sulfate (Morphine Sulfate (Inj)) 4 mg IVP Q4HR PRN PRN Reason: Pain Last Admin: 05/22/20 13:23 Dose: 4 mg Documented by: Naloxone HCl (Narcan) 0.2 mg IV Q2M PRN PRN Reason: Opioid Reversal Pantoprazole Sodium (Protonix) 40 mg PO BID [facility] Physical examination: VITAL SIGNS: 97.4, 71, 18, 126/71, 98% on room air GENERAL: Laying in bed,, tired EYES: Pupils equal. Conjunctiva normal. HEENT: External appearance of nose and ears normal, oral cavity grossly normal. NECK: JVD not raised; masses not palpable. HEART: First and second heart sounds are normal; some edema. LUNGS: Respiratory rate increased; decreased breath sounds. ABDOMEN: Soft, nontender, liver spleen not palpable, no masses palpable. PSYCH: Tired but answering questions Extremity-dressing over the right BKA stump INVESTIGATIONS, reviewed in the clinical context: White count 11.9 hemoglobin 8.7 potassium 5.2 bun 69 crit and 2.06 Wound culture from the right stump-Enterobacter hormachei Assessment: -Right BKA stump wound with secondary infection from Enterobacter H -Chronic Seizure disorder -Acute on Chronic congestive heart failure from systolic dysfunction EF 20% from hypertensive heart disease. History of negative cardiac catheterization, POA -AICD, -COPD in an ex-smoker -Diabetes mellitus type II chronically on insulin -Essential hypertension -Peripheral neuropathy from diabetes -Right BKA and left foot toe metatarsal amputation. -Baseline some dysarthria -Morbid obesity BMI 55.0 -Cardiac thrombus for which patient is on anticoagulation -Acute kidney injury creatinine has gone from 0.99 up to 2.06. Plan: Patient is on IV cefepime. Given kidney dysfunction Neurontin can be causing some of for symptoms of nausea and feeling tired. Get a neurology consultation. Patient's Lasix, Aldactone, has been discontinued. Patient also was taking Aleve at home. Discussed with the patient.
[2020-05-26 20:52] LABS: Glucose,Whole Blood 221 mg/dL (75-99)
[2020-05-26] MEDS: PANTOPRAZOLE 40 MG TABLET PO SCH (21:41)
[2020-05-26] MEDS: METOCLOPRAMIDE 5 MG/ML 2 ML VIAL IVP PRN (22:49)
[2020-05-27] MEDS: HYDROcodone/APAP 5-325MG 1 EACH TAB PO PRN ×2 (05:20→18:06)
[2020-05-27 07:30] LABS: Glucose,Whole Blood 164 mg/dL (75-99)
[2020-05-27] MEDS: INSULIN DETEMIR (LEVEMIR) 100 UNIT/ML SYR SQ SCH (07:58)
[2020-05-27] MEDS: INSULIN ASPART (NovoLOG) 100 UNIT/ML VIAL SQ SCH ×4 (07:58→20:31)
[2020-05-27] MEDS: LACOSAMIDE 50 MG TABLET PO SCH (07:59)
[2020-05-27] MEDS: PANTOPRAZOLE 40 MG TABLET PO SCH ×2 (07:59→20:31)
[2020-05-27] MEDS: APIXABAN 5 MG TAB PO SCH ×2 (07:59→20:31)
[2020-05-27] MEDS: CEFEPIME 2 GM in SODIUM CHLORIDE 0.9% 100 ML IVPB SCH (07:59)
[2020-05-27] MEDS: METOPROLOL SUCCINATE (ER) 50 MG TAB.ER.24H PO SCH (07:59)
[2020-05-27] MEDS: IPRATROPIUM-ALBUTEROL 3 ML NEB INHALATION SCH ×4 (08:41→19:24)
[2020-05-27 10:31] LABS: Anisocytosis Slight; Basophils # (A) 0.1 k/uL (0-0.2); Basophils % (A) 1 %; Eosinophils # (A) 0.2 k/uL (0-0.7); Eosinophils % (A) 2 %; HCT 30.3 % (34.0-46.0); HGB 8.1 gm/dL (11.4-16.0); Hypochromasia Marked; Lymphocytes # (A) 1.2 k/uL (1.0-4.8); Lymphocytes % (A) 10 %; MCH 17.3 pg (25.0-35.0); MCHC 26.8 g/dL (31.0-37.0); MCV 64.5 fL (80.0-100.0); Microcytosis Marked; Monocytes # (A) 0.9 k/uL (0-1.0); Monocytes % (A) 7 %; Neutrophils # (A) 10.3 k/uL (1.3-7.7); Neutrophils % (A) 79 %; Platelet Count 346 k/uL (150-450); Poikilocytosis Moderate; RDW 18.2 % (11.5-15.5)
[2020-05-27 10:54] LABS: Potassium 4.8 mmol/L (3.5-5.1)
[2020-05-27 11:54] LABS: Glucose,Whole Blood 154 mg/dL (75-99)
[2020-05-27] MEDS: METOCLOPRAMIDE 5 MG/ML 2 ML VIAL IVP PRN (12:34)
--- NOTE | 2020-05-27 13:20 | XR ---
EXAMINATION TYPE: XR chest 1V DATE OF EXAM: 05/27/2020 COMPARISON: Prior chest x-ray 05/25/2020 HISTORY: Congestive heart failure TECHNIQUE: Single frontal view of the chest is obtained. FINDINGS: The heart remains enlarged. Generators present in left pectoral region, there are leads in right atrium and ventricle, coronary sinus level. There are overlying cardiac leads. Bandlike areas of increased attenuation are present within the lung bases. There is no evident pneumothorax or sizab le effusion. Pulmonary vascularity and hilar structures are within normal limits. Bone mineralization is normal. IMPRESSION: Right knee likely. Probable subsegmental basilar atelectatic changes. Postprocedural umberto nges.
--- NOTE | 2020-05-27 15:55 | PN ---
PROGRESS NOTE DATE OF SERVICE: 05/27/2020 REASON FOR FOLLOWUP: Right BKA stump wound infection. INTERVAL HISTORY: The patient is currently afebrile. The patient is breathing comfortably. Denies having any chest pain or cough. No abdominal pain or pain to the right BKA stump wound area. PHYSICAL EXAMINATION: Her blood pressure is 115/69 with a pulse of 62, temperature 97.8. She is 96% on room air. General description is a middle-aged female lying in bed in no distress. RESPIRATORY SYSTEM: Unlabored breathing. Clear to auscultation anteriorly. HEART: S1, S2. Regular rate and rhythm. ABDOMEN: Soft. No tenderness. Right BKA stump wound has minimal slough tissue and some swelling. No redness or drainage. LABS: Hemoglobin 8.9, white count 13, BUN of 76, creatinine 1.84. DIAGNOSTIC IMPRESSION AND PLAN: Patient with a right below-knee amputation stump wound infection with possible secondary cellulitis. Culture with Enterobacter, covered with cefepime. Transition to oral Levaquin on discharge. Local wound care to continue with Medihoney followed by moist dressing to be changed daily. Continue with supportive care. MMODL / IJN: [id number] /
[2020-05-27 17:08] LABS: Glucose,Whole Blood 241 mg/dL (75-99)
--- NOTE | 2020-05-27 18:15 | CONS ---
CONSULTATION REASON FOR CONSULT: Renal failure. HISTORY OF PRESENT ILLNESS: Patient is a 44-year-old female who was admitted to the hospital on 05/21/2020 with complaints of shortness of breath. The patient does have history of CHF and with ejection fraction about 20%, type 2 diabetes, COPD. Serum creatinine was 0.9 on 05/22/2020 and increased to 2.0 yesterday. Today it is down to 1.8. Blood pressure has been on the lower side, with systolic around 102 and 97 mmHg. Systolic blood pressure was 88 on 05/23/2020. The patient is currently voiding on a bedside commode. She is not on any IV fluids or diuretics. The patient was on DULCE MARIA inhibitors as well as nonsteroidal anti-inflammatory agents in the form of Naprosyn, which is now discontinued. The patient also received a couple of doses of vancomycin. She has a wound infection on the right BKA stump and is maintained on antibiotics and being followed by ID. She is currently on cefepime. PAST MEDICAL HISTORY: Past medical history is significant for CHF, obesity, cardiomyopathy, EF 20%, CVA, TIA, COPD, type 2 diabetes, seizure disorder, history of pneumonia, AL, history of MRSA and VRE wound infections. PAST SURGICAL HISTORY: Adenoidectomy, , AICD placement, cardiac catheterization, toe amputation on the left foot, partial amputation of the forefoot and right BKA. MEDICATIONS: Medications at home prior to admission included insulin, Neurontin, Zestril, Aldactone, Eliquis, Lasix, Toprol, Aleve and Prilosec. ALLERGIES: ALLERGIES include PENICILLIN, causes rash and hives, and ZOFRAN causes nausea and vomiting. REVIEW OF SYSTEMS: As per HPI. Other systems negative. PHYSICAL EXAMINATION: Patient is comfortable, awake, not in any acute distress. She is alert and oriented x3. Blood pressure was 120/75 from last night, heart rate 74 per minute. She is afebrile. EXAMINATION OF THE HEART: S1 and S2. EXAMINATION OF LUNGS: Decreased breath sounds at bases. ABDOMEN: Soft, obese. Examination of lower extremities shows no significant edema. Right BKA stump is currently wrapped. Left forefoot amputation is noted. Chronic skin changes noted. 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 LABS: Labs show sodium 132, potassium 4.8, chloride 97, BUN 76, creatinine 1.84, hemoglobin 8.1 g/dL. ASSESSMENT: 1. Acute kidney injury, most likely acute tubular necrosis associated with hypotension, hypoperfusion. Patient was also on NSAIDs, which are now discontinued. She received a couple of doses of vancomycin; currently not on vancomycin. Renal function is improving. I will maintain her off of IV fluids and off of diuretics for now. There are no nephrotoxic agents on board currently. 2. Right below-knee amputation stump wound infection. Wound culture growing Enterobacter hormaechei. Patient is maintained on cefepime, being followed by ID. 3. Anemia. No active bleeding noted. Check iron profile. PLAN: Check urinalysis. Continue off of IV fluids. Check chest x-ray. Check stool for occult blood and iron profile. Repeat labs in a.m. Continue to avoid nephrotoxic agents. Thank you for this consultation. Will continue to follow the patient with you during her hospitalization. MMODL / IJN: [id number] /
--- NOTE | 2020-05-27 18:26 | P.PN ---
Progress Note - Text 44-year-old white female, patient had a right BK amputation done in the past patient had flap necrosis and we did the debridement had been following in the wound clinic with local wound care patient has been admitted with multiple medical problem Eschen IV antibiotic and local wound care and patient discharge we'll follow in the wound clinic and Kaylee on Tuesday
[2020-05-27 18:31] LABS: Appearance,Urine Cloudy (Clear); Bacteria,Urine Rare /hpf; Bilirubin,Urine Negative (Negative); Blood,Urine Small (Negative); Budding Yeast,Urine Rare /hpf; Color,Urine Yellow; Glucose,Urine (UA) Negative (Negative); Ketones,Urine Negative (Negative); Leukocyte Esterase,Urine Large (Negative); Nitrite,Urine Negative (Negative); Protein,Urine Trace (Negative); RBC,Urine 16 /hpf (0-5); Specific Gravity,Urine 1.019 (1.001-1.035); Squamous Epithelial Cell,Urine 4 /hpf (0-4); Urobilinogen,Urine <2.0 mg/dL (<2.0); WBC,Urine 149 /hpf (0-5)
[2020-05-27 18:55] LABS: % Iron Saturation 3.23 (12.00-45.00)
[2020-05-27 20:23] LABS: Glucose,Whole Blood 242 mg/dL (75-99)
[2020-05-27] MEDS: GABAPENTIN 300 MG CAP PO SCH (20:31)
[2020-05-27] MEDS ORDERED: SODIUM CHLORIDE 0.9% 1,000 ML IV SCH (21:45)
--- NOTE | 2020-05-27 21:45 | P.PN ---
Progress Note - Text Progress Note Date: 05/27/20 History of presenting complaint: This is a pleasant 44-year-old patient of Dr. Causey. Chronic stable medical conditions include congestive heart failure EF 20% from hypertensive heart disease, AICD, COPD, diabetes mellitus type 2 on insulin, hypertension, seizure disorder, peripheral neuropathy secondary to diabetes and multiple toe amputations.. Patient was here in April of 2019r with a splenic infarct and also was found to have a cardiac thrombus for which she is on eliquis. She did have a CONY. Now presented with some shortness of breath and some purulent discharge from the right BKA stump. Admitted with-right BKA stump wound with infection, CHF exacerbation. Today-yesterday dose of Neurontin was cut back. For more awake today. Less nausea. Eating better. More perky. Review of systems: Was done for constitutional, cardiovascular, GI, pulmonary. Neurology, relevant finding as above Active Medications Hydrocodone Bitart/Acetaminophen ([place] 5-325) 1 each PO Q6HR PRN PRN Reason: Pain Last Admin: 05/27/20 18:06 Dose: 1 each Documented by: Albuterol/Ipratropium (Duoneb 0.5 Mg-3 Mg/3 Ml Soln) 3 ml INHALATION RT-QID [facility] Last Admin: 05/27/20 19:24 Dose: Not Given Documented by: Albuterol/Ipratropium (Duoneb 0.5 Mg-3 Mg/3 Ml Soln) 3 ml INHALATION RT-Q2H PRN PRN Reason: Shortness Of Breath Or Wheezing Apixaban (Eliquis) 5 mg PO BID [facility] Last Admin: 05/27/20 20:31 Dose: 5 mg Documented by: Gabapentin (Neurontin) 600 mg PO HS [facility] Last Admin: 05/27/20 20:31 Dose: 600 mg Documented by: Cefepime HCl 2 gm/ Sodium (Chloride) 100 mls @ 200 mls/hr IVPB DAILY [facility] Last Admin: 05/27/20 07:59 Dose: 200 mls/hr Documented by: Insulin Aspart (Novolog) 0 unit SQ ACHS [facility]; Protocol Last Admin: 05/27/20 20:31 Dose: 5 unit Documented by: Insulin Detemir (Levemir) 35 unit SQ DAILY [facility] Last Admin: 05/27/20 07:58 Dose: 35 unit Documented by: Lacosamide (Vimpat) 50 mg PO DAILY [facility] Last Admin: 05/27/20 07:59 Dose: 50 mg Documented by: Metoclopramide HCl (Reglan) 10 mg IVP Q6HR PRN PRN Reason: Nausea Last Admin: 05/27/20 12:34 Dose: 10 mg Documented by: Metoprolol Succinate (Toprol Xl) 50 mg PO DAILY [facility] Last Admin: 05/27/20 07:59 Dose: 50 mg Documented by: Morphine Sulfate (Morphine Sulfate (Inj)) 4 mg IVP Q4HR PRN PRN Reason: Pain Last Admin: 05/22/20 13:23 Dose: 4 mg Documented by: Naloxone HCl (Narcan) 0.2 mg IV Q2M PRN PRN Reason: Opioid Reversal Pantoprazole Sodium (Protonix) 40 mg PO BID [facility] Last Admin: 05/27/20 20:31 Dose: 40 mg Documented by: Physical examination: VITAL SIGNS: 97.5, 74, 17, 160-73, 99% on 2 L GENERAL: Sitting on bed, for more awake EYES: Pupils equal. Conjunctiva normal. HEENT: External appearance of nose and ears normal, oral cavity grossly normal. NECK: JVD not raised; masses not palpable. HEART: First and second heart sounds are normal; some edema. LUNGS: Respiratory rate increased; decreased breath sounds. ABDOMEN: Soft, nontender, liver spleen not palpable, no masses palpable. PSYCH: More awake and answering questions Extremity-dressing over the right BKA stump INVESTIGATIONS, reviewed in the clinical context: White count 13 hemoglobin 8.1 potassium 4.8 creatinine 1.84 Wound culture from the right stump-Enterobacter hormachei Assessment: -Right BKA stump wound with secondary infection from Enterobacter H -Chronic Seizure disorder -Acute on Chronic congestive heart failure from systolic dysfunction EF 20% from hypertensive heart disease. History of negative cardiac catheterization, POA -AICD, -COPD in an ex-smoker -Diabetes mellitus type II chronically on insulin -Essential hypertension -Peripheral neuropathy from diabetes -Right BKA and left foot toe metatarsal amputation. -Baseline some dysarthria -Morbid obesity BMI 55.0 -Cardiac thrombus for which patient is on anticoagulation -Acute kidney injury creatinine has gone from 0.99 up to 2.06.-Started to improve Plan: Continue with IV cefepime. Feels very gently hydrate the patient. Repeat labs in the morning. Discussed with the patient.
[2020-05-28] MEDS: HYDROcodone/APAP 5-325MG 1 EACH TAB PO PRN ×3 (04:48→23:37)
[2020-05-28 07:01] LABS: Glucose,Whole Blood 180 mg/dL (75-99)
[2020-05-28] MEDS: IPRATROPIUM-ALBUTEROL 3 ML NEB INHALATION SCH ×4 (07:21→19:43)
[2020-05-28] MEDS: LACOSAMIDE 50 MG TABLET PO SCH (07:52)
[2020-05-28] MEDS: PANTOPRAZOLE 40 MG TABLET PO SCH ×2 (07:52→20:02)
[2020-05-28] MEDS: METOPROLOL SUCCINATE (ER) 50 MG TAB.ER.24H PO SCH (07:53)
[2020-05-28] MEDS: INSULIN DETEMIR (LEVEMIR) 100 UNIT/ML SYR SQ SCH (07:53)
[2020-05-28] MEDS: INSULIN ASPART (NovoLOG) 100 UNIT/ML VIAL SQ SCH ×4 (07:53→21:51)
[2020-05-28] MEDS: APIXABAN 5 MG TAB PO SCH ×2 (07:53→20:02)
[2020-05-28] MEDS: CEFEPIME 2 GM in SODIUM CHLORIDE 0.9% 100 ML IVPB SCH (07:54)
[2020-05-28 08:18] LABS: Potassium 4.7 mmol/L (3.5-5.1)
--- NOTE | 2020-05-28 08:32 | P.PN ---
Subjective HISTORY OF PRESENTING ILLNESS This is a pleasant 44-year-old female past medical history significant for nonischemic idiopathic cardiomyopathy status post by the ICD implantation in 2011, hypertension, chronic systolic heart failure, diabetes mellitus, dyslipidemia and morbid obesity. She follows in the office with Dr. Roldan, however she has not been to the office since 07/2018. She is seen and examined laying flat resting comfortably in bed in no acute distress. She denies worsening shortness of breath, no chest pain, dizziness or palpitations. Blood pressure 120/75 heart rate 80 afebrile and maintaining oxygen saturation on na john cannula. Currently maintained on toprol 50 mg daily and eliquis 5 mg BID. Laboratory data reviewed, sodium 133, potassium 4.7, creatinine 1.47. PHYSICAL EXAMINATION CONSTITUTIONAL: No apparent distress. Generalized pallor. HEENT: Head is normocephalic. Pupils are equal, round. Sclerae anicteric. Mucous membranes of the mouth are moist. No JVD. No carotid bruit. CHEST EXAMINATION: Clear bilaterally. No rales, wheezes or rhonchi. No chest wall tenderness is noted on palpation or with deep breathing. HEART EXAMINATION: Regular rate and rhythm. S1, S2 heard. No murmurs, gallops or rub. EXTREMITIES: Right BKA with dressing in place. Left lower extremity 1+ pitting edema with all 5 toes amputated. ASSESSMENT Acute on chronic systolic heart failure secondary to cutting down home lasix dos e Right BKA with stump infection Anemia Leukocytosis Acute kidney injury Hyperkalemia History of cardiac thrombus and splenic infarct on shelter eliquis Idiopathic cardiomyopathy s/p ICD implantation Hypertension Diabetes mellitus Morbid obesity, BMI 43 PLAN REsume PO diuretics when ok per nephrology. Clinically she is euvolemic and stable. Discussed with her the importance of following up in the office for further care of her ICD and generator change. Nurse Practitioner note has been reviewed, I agree with a documented findings and plan of care. Patient was seen and examined. Objective - Vital Signs Vital signs: Vital Signs Temp 97.7 F 05/28/20 07:00 Pulse 80 05/28/20 07:31 Resp 16 05/28/20 07:00 BP 120/75 05/28/20 07:00 Pulse Ox 98 05/28/20 07:00 Intake & Output 05/27/20 05/28/20 05/28/20 18:59 06:59 18:59 Intake Total 200 Output Total 600 Balance -600 200 Weight 157.5 kg Intake: Oral 200 Output: Urine 600 Other: Voiding Method Bedside Commode # Voids 3 - Labs CBC & Chem 7: 05/27/20 09:57 05/28/20 07:09 Labs: Abnormal Lab Results - Last 24 Hours (Table) 05/27/20 05/27/20 05/27/20 Range/Units 09:57 09:57 09:57 WBC 13.0 H (3.8-10.6) k/uL Hgb 8.1 L (11.4-16.0) gm/dL Hct 30.3 L (34.0-46.0) % MCV 64.5 L (80.0-100.0) fL MCH 17.3 L (25.0-35.0) pg MCHC 26.8 L (31.0-37.0) g/dL RDW 18.2 H (11.5-15.5) % Neutrophils # 10.3 H (1.3-7.7) k/uL Sodium 132 L (137-145) mmol/L Chloride 97 L (98-107) mmol/L Carbon Dioxide (22-30) mmol/L BUN 76 H (7-17) mg/dL Creatinine 1.84 H (0.52-1.04) mg/dL Glucose 136 H (74-99) mg/dL POC Glucose (mg/dL) (75-99) mg/dL Calcium 8.0 L (8.4-10.2) mg/dL Iron 13 L (50-170) ug/dL % Saturation 3.23 L (12.00-45.00) Urine Appearance (Clear) Urine Protein (Negative) Urine Blood (Negative) Ur Leukocyte Esterase (Negative) Urine RBC (0-5) /hpf Urine WBC (0-5) /hpf Urine Bacteria (None) /hpf Urine Yeast (Budding) (None) /hpf 05/27/20 05/27/20 05/27/20 Range/Units 11:53 17:06 18:15 WBC (3.8-10.6) k/uL Hgb (11.4-16.0) gm/dL Hct (34.0-46.0) % MCV (80.0-100.0) fL MCH (25.0-35.0) pg MCHC (31.0-37.0) g/dL RDW (11.5-15.5) % Neutrophils # (1.3-7.7) k/uL Sodium (137-145) mmol/L Chloride (98-107) mmol/L Carbon Dioxide (22-30) mmol/L BUN (7-17) mg/dL Creatinine (0.52-1.04) mg/dL Glucose (74-99) mg/dL POC Glucose (mg/dL) 154 H 241 H (75-99) mg/dL Calcium (8.4-10.2) mg/dL Iron (50-170) ug/dL % Saturation (12.00-45.00) Urine Appearance Cloudy H (Clear) Urine Protein Trace H (Negative) Urine Blood Small H (Negative) Ur Leukocyte Esterase Large H (Negative) Urine RBC 16 H (0-5) /hpf Urine WBC 149 H (0-5) /hpf Urine Bacteria Rare H (None) /hpf Urine Yeast (Budding) Rare H (None) /hpf 05/27/20 05/28/20 05/28/20 Range/Units 20:22 07:00 07:09 WBC (3.8-10.6) k/uL Hgb (11.4-16.0) gm/dL Hct (34.0-46.0) % MCV (80.0-100.0) fL MCH (25.0-35.0) pg MCHC (31.0-37.0) g/dL RDW (11.5-15.5) % Neutrophils # (1.3-7.7) k/uL Sodium 133 L (137-145) mmol/L Chloride (98-107) mmol/L Carbon Dioxide 21 L (22-30) mmol/L BUN 68 H (7-17) mg/dL Creatinine 1.47 H (0.52-1.04) mg/dL Glucose 142 H (74-99) mg/dL POC Glucose (mg/dL) 242 H 180 H (75-99) mg/dL Calcium 8.0 L (8.4-10.2) mg/dL Iron (50-170) ug/dL % Saturation (12.00-45.00) Urine Appearance (Clear) Urine Protein (Negative) Urine Blood (Negative) Ur Leukocyte Esterase (Negative) Urine RBC (0-5) /hpf Urine WBC (0-5) /hpf Urine Bacteria (None) /hpf Urine Yeast (Budding) (None) /hpf Microbiology - Last 24 Hours (Table) 05/21/20 19:32 Blood Culture - Final Blood No Growth after 144 hours
[2020-05-28 08:44] LABS: Anisocytosis Slight; HCT 30.2 % (34.0-46.0); HGB 8.3 gm/dL (11.4-16.0); Hypochromasia Marked; MCH 18.2 pg (25.0-35.0); MCHC 27.4 g/dL (31.0-37.0); MCV 66.7 fL (80.0-100.0); Mean Platelet Volume 8.1; Microcytosis Marked; Platelet Count 324 k/uL (150-450); Poikilocytosis Slight; RBC 4.53 m/uL (3.80-5.40); RDW 18.1 % (11.5-15.5)
[2020-05-28 10:38] LABS: Basophils # (M) 0.13 k/uL (0-0.2); Eosinophils # (M) 0.52 k/uL (0-0.7); Lymphocytes # (M) 2.08 k/uL (1.0-4.8); Monocytes # (M) 0.65 k/uL (0-1.0); Neutrophils # (M) 9.88 k/uL (1.3-7.7); Neutrophils % (M) 76 %; Nucleated Red Blood Cells 5 /100 WBC (0-0); Total Cells Counted 200
[2020-05-28 10:39] LABS: Polychromasia Present
[2020-05-28 11:32] LABS: Glucose,Whole Blood 191 mg/dL (75-99)
[2020-05-28] MEDS: METOCLOPRAMIDE 5 MG/ML 2 ML VIAL IVP PRN (11:58)
--- NOTE | 2020-05-28 13:21 | PN ---
PROGRESS NOTE DATE OF SERVICE: 05/28/2020 REASON FOR FOLLOWUP: Right BKA stump wound infection with cellulitis. INTERVAL HISTORY: Patient is currently afebrile. The patient mentioned she did fall down last night though did not hurt any specific point of her body. Denies having any chest pain. No shortness of breath or cough. No abdominal pain or any worsening pain to the right BKA stump wound area. On examination, blood pressure 120/75 with a pulse of 80, temperature 97.7. She is 98% on room air. General description is a middle-aged female lying in bed in no distress. Respiratory system: Unlabored breathing. Clear to auscultation anteriorly. Heart S1, S2. Regular rate and rhythm. Abdomen soft, no tenderness. Right BKA stump wound currently dressed up. No obvious drainage on the dressing. DIAGNOSTIC IMPRESSION AND PLAN: Patient with right BKA stump wound with possible cellulitis. Culture positive Enterobacter. Patient on cefepime. Transition to oral Levaquin for about a week. Local care with Medihoney followed by moist dressing. Continue supportive care. MMODL / IJN: [id number] /
--- NOTE | 2020-05-28 13:58 | PN ---
PROGRESS NOTE Patient is seen for followup for acute kidney injury associated with the hypotension and hypoperfusion. Patient was also on NSAIDs, which are now discontinued. Renal function has improved with creatinine down to 1.4 now from peak of 2.0. The patient has had good urine output. She was hypervolemic, therefore I have discontinued the IV fluids and we will maintain her off diuretics as well. On examination today patient is comfortable, awake, alert, oriented x3, not in any acute distress. Blood pressure is 120/75, heart rate 80 per minute, she is afebrile. Examination of the heart S1, S2. Examination of the lungs: Decreased breath sounds at bases. Abdomen is soft, nontender. Examination of lower extremities shows edema 1+ bilaterally. [employer] exam grossly intact. LABS: Show sodium 133, potassium 4.7, chloride 101, CO2 is 21, BUN 68, creatinine 1.47. ASSESSMENT: 1. Acute kidney injury secondary to hypotension and hypoperfusion currently improved. The patient received a few doses of vancomycin as well, which is now discontinued. 2. Right below-knee amputation stump with wound infection. Wound culture growing Enterobacter hormaechei, the patient is maintained on Cefepime currently being followed by ID. 3. Anemia with no active bleeding noted. Iron profile was ordered and iron saturation is significantly low at 3.23%. The patient will be started on IV iron in the next day or so as she has active infection and is currently on antibiotics. 4. Cardiomyopathy with ejection fraction of 20%. 5. Type 2 diabetes. PLAN: Discontinue IV fluids. Add IV iron tomorrow. I am holding off on the iron for now as patient has an active infection, is currently on antibiotics. Continue to avoid nephrotoxic agents. MMODL / IJN: [id number] /
[2020-05-28 14:42] VITALS: BMI 54.3
[2020-05-28 16:42] LABS: Glucose,Whole Blood 219 mg/dL (75-99)
[2020-05-28] MEDS ORDERED: IPRATROPIUM-ALBUTEROL 3 ML NEB INHALATION PRN (19:34)
--- NOTE | 2020-05-28 19:34 | P.PN ---
Progress Note - Text Progress Note Date: 05/28/20 History of presenting complaint: This is a pleasant 44-year-old patient of Dr. Causey. Chronic stable medical conditions include congestive heart failure EF 20% from hypertensive heart disease, AICD, COPD, diabetes mellitus type 2 on insulin, hypertension, seizure disorder, peripheral neuropathy secondary to diabetes and multiple toe amputations.. Patient was here in April of 2019r with a splenic infarct and also was found to have a cardiac thrombus for which she is on eliquis. She did have a CONY. Now presented with some shortness of breath and some purulent discharge from the right BKA stump. Admitted with-right BKA stump wound with infection, CHF exacerbation. Acute kidney injury. Metabolic encephalopathy from renal failure and Neurontin in the setting of renal failure. Patient did much better after cutting back and does Neurontin became more awake nausea rundown. Given IV fluids. Kidney function improving Today-feeling much better today. Getting about 50% of her meals. Review of systems: Was done for constitutional, cardiovascular, GI, pulmonary. Neurology, relevant finding as above Active Medications Hydrocodone Bitart/Acetaminophen ([place] 5-325) 1 each PO Q6HR PRN PRN Reason: Pain Last Admin: 05/28/20 17:17 Dose: 1 each Documented by: Albuterol/Ipratropium (Duoneb 0.5 Mg-3 Mg/3 Ml Soln) 3 ml INHALATION RT-QID [facility] Last Admin: 05/28/20 16:01 Dose: 3 ml Documented by: Albuterol/Ipratropium (Duoneb 0.5 Mg-3 Mg/3 Ml Soln) 3 ml INHALATION RT-Q2H PRN PRN Reason: Shortness Of Breath Or Wheezing Apixaban (Eliquis) 5 mg PO BID [facility] Last Admin: 05/28/20 07:53 Dose: 5 mg Documented by: Gabapentin (Neurontin) 600 mg PO HS [facility] Last Admin: 05/27/20 20:31 Dose: 600 mg Documented by: Cefepime HCl 2 gm/ Sodium (Chloride) 100 mls @ 200 mls/hr IVPB DAILY [facility] Last Admin: 05/28/20 07:54 Dose: 200 mls/hr Documented by: Insulin Aspart (Novolog) 0 unit SQ ACHS [facility]; Protocol Last Admin: 05/28/20 17:17 Dose: 4 unit Documented by: Insulin Detemir (Levemir) 35 unit SQ DAILY [facility] Last Admin: 05/28/20 07:53 Dose: 35 unit Documented by: Lacosamide (Vimpat) 50 mg PO DAILY [facility] Last Admin: 05/28/20 07:52 Dose: 50 mg Documented by: Metoclopramide HCl (Reglan) 10 mg IVP Q6HR PRN PRN Reason: Nausea Last Admin: 05/28/20 11:58 Dose: 10 mg Documented by: Metoprolol Succinate (Toprol Xl) 50 mg PO DAILY [facility] Last Admin: 05/28/20 07:53 Dose: 50 mg Documented by: Morphine Sulfate (Morphine Sulfate (Inj)) 4 mg IVP Q4HR PRN PRN Reason: Pain Last Admin: 05/22/20 13:23 Dose: 4 mg Documented by: Naloxone HCl (Narcan) 0.2 mg IV Q2M PRN PRN Reason: Opioid Reversal Pantoprazole Sodium (Protonix) 40 mg PO BID [facility] Last Admin: 05/28/20 07:52 Dose: 40 mg Documented by: Physical examination: VITAL SIGNS: 97.7, 71, 16, 120 was 35, 98% on 2 L GENERAL: Sitting on bed, f awake EYES: Pupils equal. Conjunctiva normal. HEENT: External appearance of nose and ears normal, oral cavity grossly normal. NECK: JVD not raised; masses not palpable. HEART: First and second heart sounds are normal; some edema. LUNGS: Respiratory rate increased; decreased breath sounds. ABDOMEN: Soft, nontender, liver spleen not palpable, no masses palpable. PSYCH: Awake answering questions Extremity-dressing over the right BKA stump INVESTIGATIONS, reviewed in the clinical context: White count 13 hemoglobin 8.3 potassium 4.7 bun 68 creatinine 1.47 Wound culture from the right stump-Enterobacter hormachei Assessment: -Right BKA stump wound with secondary infection from Enterobacter H -Chronic Seizure disorder -Acute on Chronic congestive heart failure from systolic dysfunction EF 20% from hypertensive heart disease. History of negative cardiac catheterization, POA -AICD, -COPD in an ex-smoker -Diabetes mellitus type II chronically on insulin -Essential hypertension -Peripheral neuropathy from diabetes -Right BKA and left foot toe metatarsal amputation. -Baseline some dysarthria -Morbid obesity BMI 55.0 -Cardiac thrombus for which patient is on anticoagulation -Acute kidney injury creatinine has gone from 0.99 up to 2.06.-Started to improve Plan: Kidney first is improving. We'll DC the IV fluids. Repeat labs in the morning. Discussed with the patient. Discussed with Dr. Balke from [place]. Patient was switched over to Levaquin. Hopefully discharge tomorrow.
[2020-05-28] MEDS: GABAPENTIN 300 MG CAP PO SCH (20:00)
[2020-05-28] MEDS: MORPHINE SULFATE 4 MG/ML SYRINGE IVP PRN (20:08)
[2020-05-28 21:38] LABS: Glucose,Whole Blood 207 mg/dL (75-99)
[2020-05-29] MEDS: HYDROcodone/APAP 5-325MG 1 EACH TAB PO PRN (04:51)
[2020-05-29 07:33] LABS: Glucose,Whole Blood 172 mg/dL (75-99)
[2020-05-29] MEDS: INSULIN ASPART (NovoLOG) 100 UNIT/ML VIAL SQ SCH ×2 (07:44→12:14)
[2020-05-29] MEDS: INSULIN DETEMIR (LEVEMIR) 100 UNIT/ML SYR SQ SCH (07:44)
[2020-05-29] MEDS: CEFEPIME 2 GM in SODIUM CHLORIDE 0.9% 100 ML IVPB SCH (07:45)
[2020-05-29] MEDS: METOPROLOL SUCCINATE (ER) 50 MG TAB.ER.24H PO SCH (07:45)
[2020-05-29] MEDS: LACOSAMIDE 50 MG TABLET PO SCH (07:45)
[2020-05-29] MEDS: PANTOPRAZOLE 40 MG TABLET PO SCH (07:46)
[2020-05-29] MEDS: APIXABAN 5 MG TAB PO SCH (07:46)
[2020-05-29 08:10] VITALS: BP 121/73; PULSE 69; RESP 17; TEMP 97.6
[2020-05-29 08:16] LABS: Potassium 4.4 mmol/L (3.5-5.1)
[2020-05-29] MEDS: IPRATROPIUM-ALBUTEROL 3 ML NEB INHALATION SCH ×3 (08:36→15:27)
[2020-05-29] MEDS ORDERED: SPIRONOLACTONE 25 MG TAB PO SCH (09:00)
[2020-05-29 11:31] LABS: Glucose,Whole Blood 161 mg/dL (75-99)
[2020-05-29] MEDS: METOCLOPRAMIDE 5 MG/ML 2 ML VIAL IVP PRN (11:34)
[2020-05-29] MEDS ORDERED: SODIUM FERRIC GLUCONAT-SUCROSE 125 MG in SODIUM CHLORIDE 0.9% 100 ML IVPB ONE (11:41)
--- NOTE | 2020-05-29 12:16 | P.PN ---
Subjective HISTORY OF PRESENTING ILLNESS This is a pleasant 44-year-old female past medical history significant for nonischemic idiopathic cardiomyopathy status post by the ICD implantation in 2011, hypertension, chronic systolic heart failure, diabetes mellitus, dyslipidemia and morbid obesity. She follows in the office with Dr. Roldan, however she has not been to the office since 07/2018. She is seen and examined sitting up in bed in no acute distress. She denies shortness of breath or chest pain. She continues to be paced on the monitor. Blood pressure 121/73 heart rate 69 afebrile and maintaining oxygen saturation on room air. Laboratory data reviewed, sodium 134, potassium 4.4, creatinine 1.26. Aldactone was resumed yesterday per nephrology. PHYSICAL EXAMINATION CONSTITUTIONAL: No apparent distress. Generalized pallor. HEENT: Head is normocephalic. Pupils are equal, round. Sclerae anicteric. Mucous membranes of the mouth are moist. No JVD. No carotid bruit. CHEST EXAMINATION: Clear bilaterally. No rales, wheezes or rhonchi. No chest wall tenderness is noted on palpation or with deep breathing. HEART EXAMINATION: Regular rate and rhythm. S1, S2 heard. No murmurs, gallops or rub. EXTREMITIES: Right BKA with dressing in place. Left lower extremity 1+ pitting edema with all 5 toes amputated. ASSESSMENT Acute on chronic systolic heart failure secondary to cutting down home lasix dose Right BKA with stump infection Anemia Leukocytosis Acute kidney injury Hyperkalemia History of cardiac thrombus and splenic infarct on assisted eliquis Idiopathic cardiomyopathy s/p ICD implantation Hypertension Diabetes mellitus Morbid obesity, BMI 43 PLAN REsume PO diuretics when ok per nephrology. Clinically she is euvolemic and stable. We will follow along as needed. Discussed with her the importance of following up in the office for further care of her ICD and generator change. Nurse Practitioner note has been reviewed, I agree with a documented findings and plan of care. Patient was seen and examined. Objective - Vital Signs Vital signs: Vital Signs Temp 97.6 F 05/29/20 07:00 Pulse 69 05/29/20 07:00 Resp 17 05/29/20 07:00 BP 121/73 05/29/20 07:00 Pulse Ox 96 05/29/20 07:00 Intake & Output 05/28/20 05/29/20 05/29/20 18:59 06:59 18:59 Weight 157.5 kg Other: Voiding Method Bedside Commode Bedside Commode # Voids 1 - Labs CBC & Chem 7: 05/28/20 07:09 05/29/20 07:38 Labs: Abnormal Lab Results - Last 24 Hours (Table) 05/28/20 05/28/20 05/29/20 Range/Units 16:40 21:37 07:26 Sodium (137-145) mmol/L BUN (7-17) mg/dL Creatinine (0.52-1.04) mg/dL Glucose (74-99) mg/dL POC Glucose (mg/dL) 219 H 207 H 172 H (75-99) mg/dL Calcium (8.4-10.2) mg/dL 05/29/20 05/29/20 Range/Units 07:38 11:29 Sodium 134 L (137-145) mmol/L BUN 58 H (7-17) mg/dL Creatinine 1.26 H (0.52-1.04) mg/dL Glucose 154 H (74-99) mg/dL POC Glucose (mg/dL) 161 H (75-99) mg/dL Calcium 8.0 L (8.4-10.2) mg/dL
--- NOTE | 2020-05-29 12:17 | PN ---
PROGRESS NOTE Patient is seen for followup for acute kidney injury. Patient's renal function has improved. Her creatinine is down to 1.26 from peak of 2.06 mg/dL. Patient has history of CHF. She was maintained on IV fluids which are now discontinued. She has had good urine output. The patient had been hypotensive. Blood pressures are now improved. On examination today, blood pressure was 121/73, heart rate 69 per minute. She is afebrile. Examination of the heart S1, S2. Examination of the lungs, bilateral breath sounds are heard. Abdomen is soft, nontender. Examination of lower extremities: Right BKA stump is currently dressed. GLOVE [employer]GER exam grossly intact. Labs show sodium 134, potassium 4.4, chloride 100, CO2 is 25, BUN 58, creatinine 1.26. ASSESSMENT: 1. Acute kidney injury secondary to hypotension, NSAIDs, currently improved. Patient has received a few doses of vancomycin as well, which is now discontinued. 2. Right below-knee amputation stump with wound infection. Wound culture growing Enterobacter hormaechei. Patient is maintained on cefepime and is being followed by ID. 3. Anemia with no active bleeding noted, significant iron deficiency noted on iron profile. The patient was not started immediately on IV iron secondary to ongoing infection and IV antibiotics. However, we can start the iron today. 4. Cardiomyopathy with ejection fraction 20% with mild hypervolemia. 5. Type 2 diabetes. PLAN: Continue off IV fluids, IV iron x1 today. The patient is stable for discharge from nephrology standpoint. Avoid nephrotoxic agents including NSAIDs post discharge. MMODL / IJN: [id number] /
--- NOTE | 2020-05-29 23:04 | P.DS ---
Providers Date of admission: 05/21/20 19:13 Expected date of discharge: 05/29/20 Attending physician: Kimo Tejeda Consults: 05/21/20 19:11 Consult Physician Urgent Consulting Provider: Eleazar Hurd Consult Reason/Comments: right leg wound Do you want consulting provider notified?: Yes 05/21/20 19:12 Consult Physician Urgent Consulting Provider: [facility] Consult Reason/Comments: acute respiratory insuff, AECHF Do you want consulting provider notified?: Yes 05/21/20 23:46 Consult Physician Routine Consulting Provider: Casi Villareal Consult Reason/Comments: infection Do you want consulting provider notified?: Yes 05/26/20 20:13 Consult Physician Routine Consulting Provider: Niki Arvizu Consult Reason/Comments: Renal failure Do you want consulting provider notified?: Yes Primary care physician: Dylan Causey [facility] Course: History of presenting complaint: This is a pleasant 44-year-old patient of Dr. Causey. Chronic stable medical conditions include congestive heart failure EF 20% from hypertensive heart disease, AICD, COPD, diabetes mellitus type 2 on insulin, hypertension, seizure disorder, peripheral neuropathy secondary to diabetes and multiple toe amputations.. Patient was here in April of 2019r with a splenic infarct and also was found to have a cardiac thrombus for which she is on eliquis. She did have a CONY. Now presented with some shortness of breath and some purulent discharge from the right BKA stump. Admitted with-right BKA stump wound with infection, CHF exacerbation. Acute kidney injury. Metabolic encephalopathy from renal failure and Neurontin in the setting of renal failure. Patient did much better after cutting back and does Neurontin became more awake nausea rundown. Given IV fluids. Kidney function improving Today-persistent having some nausea. Patient very insistent on going home. Will not stay back in the hospital.. I did speak to her at length. Told her to return if she doesn't feel better. Kidney function improved. Dose of Lasix and Aldactone being resumed. At a decreased dose. Discussion and discharge planning more than 35 minutes. Consultation: Dr. Arvizu from nephrology Dr. Villareal from ID Dr. Ko from vascular surgery [facility] Physical examination: VITAL SIGNS: 97.6, 69, 17, 121/73, 96% room air GENERAL: Sitting on bed, f awake EYES: Pupils equal. Conjunctiva normal. HEENT: External appearance of nose and ears normal, oral cavity grossly normal. NECK: JVD not raised; masses not palpable. HEART: First and second heart sounds are normal; some edema. LUNGS: Respiratory rate increased; decreased breath sounds. ABDOMEN: Soft, nontender, liver spleen not palpable, no masses palpable. PSYCH: Awake answering questions Extremity-dressing over the right BKA stump INVESTIGATIONS, reviewed in the clinical context: White count 13 hemoglobin 8.3 potassium 4.4 bun 58 creatinine 1.26 Wound culture from the right stump-Enterobacter hormachei Assessment: -Right BKA stump wound with secondary infection from Enterobacter H -Chronic Seizure disorder -Acute on Chronic congestive heart failure from systolic dysfunction EF 20% from hypertensive heart disease. History of negative cardiac catheterization, POA -AICD, -COPD in an ex-smoker -Diabetes mellitus type II chronically on insulin -Essential hypertension -Peripheral neuropathy from diabetes -Right BKA and left foot toe metatarsal amputation. -Baseline some dysarthria -Morbid obesity BMI 55.0 -Cardiac thrombus for which patient is on anticoagulation -Acute kidney injury creatinine has gone from 0.99 up to 2.06.-Started to improve Disposition: Home Labs: CBC BMP-4 days Patient Condition at Discharge: Stable Plan - Discharge Summary Discharge Rx Participant: Yes New Discharge Prescriptions: New Levofloxacin [Levaquin] 250 mg PO DAILY #7 tab Continue INSULIN ASPART (NovoLOG) [NovoLOG (formulary)] See Protocol SQ AC-TID Insulin Glargine [Lantus] 35 unit SQ DAILY Spironolactone [Aldactone] 25 mg PO BID Apixaban [Eliquis] 5 mg PO BID Omeprazole [PriLOSEC] 40 mg PO DAILY Metoprolol Succinate [Toprol XL] 50 mg PO DAILY Lacosamide [Vimpat] 50 mg PO DAILY Ipratropium-Albuterol Nebulize [Duoneb 0.5 mg-3 mg/3 ml Soln] 3 ml INHALATION RT-DAILY PRN PRN Reason: Shortness Of Breath Changed Furosemide [Lasix] 40 mg PO DAILY #0 Gabapentin [Neurontin] 600 mg PO BID #90 tablet Discontinued Lisinopril [Zestril] 2.5 mg PO DAILY #30 tab Naproxen Sodium [Aleve] 440 mg PO DAILY Naproxen Sod/Diphenhydramine [Aleve Pm Caplet] 2 tab PO HS Discharge Medication List INSULIN ASPART (NovoLOG) [NovoLOG (formulary)] See Protocol SQ AC-TID 04/30/19 [History] Insulin Glargine [Lantus] 35 unit SQ DAILY 04/30/19 [History] Spironolactone [Aldactone] 25 mg PO BID 07/26/19 [History] Apixaban [Eliquis] 5 mg PO BID 07/27/19 [History] Ipratropium-Albuterol Nebulize [Duoneb 0.5 mg-3 mg/3 ml Soln] 3 ml INHALATION RT-DAILY PRN 05/21/20 [History] Lacosamide [Vimpat] 50 mg PO DAILY 05/21/20 [History] Metoprolol Succinate [Toprol XL] 50 mg PO DAILY 05/21/20 [History] Omeprazole [PriLOSEC] 40 mg PO DAILY 05/21/20 [History] Furosemide [Lasix] 40 mg PO DAILY #0 05/29/20 [Rx] Gabapentin [Neurontin] 600 mg PO BID #90 tablet 05/29/20 [Rx] Levofloxacin [Levaquin] 250 mg PO DAILY #7 tab 05/29/20 [Rx] Follow up Appointment(s)/Referral(s): Fran Esquivel MD [STAFF PHYSICIAN] - 06/05/20 2:30 pm Niki Arvizu MD [STAFF PHYSICIAN] - 06/02/20 1:40 pm (in person visit at [facility]) Dylan Causey MD [Primary Care Provider] - 06/05/20 11:00 am [facility], [NON-STAFF] - Patient Instructions/Handouts: Heart Failure (DC), Wound Infection (DC) Activity/Diet/Wound Care/Special Instructions: soft bland diet wound care per dr villareal/dr hurd bmp/cbc/ - 5 days Discharge Disposition: HOME WITH HOME HEALTH SERVICES
--- NOTE | 2020-05-30 15:08 | P.PN ---
Progress Note - Text Progress Note Date: 05/29/20 REASON FOR FOLLOWUP: Right BKA stump wound infection with cellulitis. INTERVAL HISTORY: Patient remains to be afebrile. The patient denies having any chest pain. No shortness of breath or cough. No abdominal pain or any worsening pain to the right BKA stump wound area. She did complain of feeling nauseated and did have multiple episodes of vomiting On examination, blood pressure 125/70 with a pulse of 70, temperature 97.7. She is 98% on room air. General description is a middle-aged female lying in bed in no distress. Respiratory system: Unlabored breathing. Clear to auscultation anteriorly. Heart S1, S2. Regular rate and rhythm. Abdomen soft, no tenderness. Right BKA stump wou nd currently dressed up. No obvious drainage on the dressing. LABS: Reviewed DIAGNOSTIC IMPRESSION AND PLAN: Patient with right BKA stump wound with possible cellulitis. Culture positive Enterobacter. Patient seemed to have clinical improvement on cefepime. Antibiotic will be switched to oral Levaquin for about a week on discharge. [facility]. Continue supportive care.
--- NOTE | 2020-06-02 08:16 | CDI ---
Documentation Clarification Form Date: 06/02/20 From: Kathryn Garcia Phone: If you have a question about this query, please contact Geetha Panda, Raw Stock Machine Loader at [phone] between 8am and 5pm. Admit Date: 05/21/20 Discharge Date:05/29/20 Patient Name: Flaca Hinson Visit Number: [id number] ATTENTION: The Clinical Documentation Specialists (CDI) and [facility] Coding Staff appreciate your assistance in clarifying documentation. Please respond to the clarification below the line at the bottom and electronically sign. The CDI & [facility] Coding staff will review the response and follow-up if needed. Please note: Queries are made part of the Legal Health Record. If you have any questions, please contact the author of this message via ITS. Dear Dr. Blake Cellulitis of the right BKA is documented in your consult note and progress notes and Patient history/risk factors: Diabetes, right BKA wound, morbid obesity, peripheral neuropathy Clinical Indicators: Wound culture grew Enterobacter hormaechei, pain to right stump, slough tissue, surrounding swelling Radiology: Right leg - Moderate diffuse subcutaneous edema and soft tissue swelling. No suspicious cortical destruction seen to suggest acute osteomyelitis Labs: Glucose 149, Vital Signs: T. 98.4, P. 107, R. 18, BP 118/65 Treatment: Medication: IV Cefepime, IV Levaquin, IV Vanco, Levemir, Novolog In your professional opinion, can cellulitis be further specified as one of the following? Associated with Diabetes Not associated with Diabetes Other(please specify) Unable to Determine associated with diabetes MTDD
--- NOTE | 2020-06-02 08:30 | CDI ---
Documentation Clarification Form Date: 06/02/20 From: Kathryn Garcia Phone: If you have a question about this query, please contact Geetha Panda, Bakery Products Checker at [phone] between 8am and 5pm. Admit Date: 05/21/20 Discharge Date:05/29/20 Patient Name: Flaca Hinson Visit Number: [id number] ATTENTION: The Clinical Documentation Specialists (CDI) and [facility] Coding Staff appreciate your assistance in clarifying documentation. Please respond to the clarification below the line at the bottom and electronically sign. The CDI & [facility] Coding staff will review the response and follow-up if needed. Please note: Queries are made part of the Legal Health Record. If you have any questions, please contact the author of this message via ITS. Dear Dr. Tejeda Hypotension is documented in the nephrology consult note and 05/28 & 05/29 progress notes. History/Risk Factors: Hypertension, systolic CHF exacerbation, BKA stump infection Clinical Indicators: Decreased blood pressure Patients B/P: 05/23 - , 88/63, 05/24 - 61, 05/25 - , 05/26 - , 05/28 - , 05/28 - Labs: Sodium 136, BUN 34, Creatinine, 1.50, glucose 137, calcium 8.1, 05/23 WBC - 14.4, Hgb 8.3, Hct 31.3 Treatment: In your professional opinion, can you please specify the etiology of the hypotension if known? Iatrogenic Hypotension Idiopathic Hypotension Drug Induced Hypotension Other Condition, please specify Unable to determine Hypotension due to systolic congestive heart failure MTDD
== END 2020-05-29 16:02 | disposition home health service (06) | DRG 564 ==
LOC: EC 15:22 → 4SSUR 19:13
PROVIDERS: ADMIT Hospitalist; ATTEND Hospitalist
DX: T87.40 Infection of amputation stump, unspecified extremity (principal); G93.41 Metabolic encephalopathy; N17.0 Acute kidney failure with tubular necrosis; I50.23 Acute on chronic systolic (congestive) heart failure; J44.1 Chronic obstructive pulmonary disease with (acute) exacerbation; J98.11 Atelectasis; Z68.43 Body mass index [BMI] 50.0-59.9, adult; J45.21 Mild intermittent asthma with (acute) exacerbation; I42.8 Other cardiomyopathies; L03.115 Cellulitis of right lower limb; I51.3 Intracardiac thrombosis, not elsewhere classified; I11.0 Hypertensive heart disease with heart failure; E11.42 Type 2 diabetes mellitus with diabetic polyneuropathy; F31.9 Bipolar disorder, unspecified; E66.01 Morbid (severe) obesity due to excess calories; G40.909 Epilepsy, unspecified, not intractable, without status epilepticus; E11.628 Type 2 diabetes mellitus with other skin complications; Z20.828 Contact with and (suspected) exposure to other viral communicable diseases; D50.9 Iron deficiency anemia, unspecified; E78.5 Hyperlipidemia, unspecified; E87.5 Hyperkalemia; I25.2 Old myocardial infarction; I83.90 Asymptomatic varicose veins of unspecified lower extremity; R26.9 Unspecified abnormalities of gait and mobility; R01.1 Cardiac murmur, unspecified; R11.2 Nausea with vomiting, unspecified; M19.90 Unspecified osteoarthritis, unspecified site; R06.89 Other abnormalities of breathing; T50.2X5A Adverse effect of carbonic-anhydrase inhibitors, benzothiadiazides and other diuretics, initial encounter; B96.89 Other specified bacterial agents as the cause of diseases classified elsewhere; Z79.01 Long term (current) use of anticoagulants; Z79.4 Long term (current) use of insulin; Z79.899 Other long term (current) drug therapy; Z86.14 Personal history of Methicillin resistant Staphylococcus aureus infection; Z86.73 Personal history of transient ischemic attack (TIA), and cerebral infarction without residual deficits; Z87.891 Personal history of nicotine dependence; Z89.511 Acquired absence of right leg below knee; Z95.810 Presence of automatic (implantable) cardiac defibrillator; Z99.3 Dependence on wheelchair; Z88.0 Allergy status to penicillin; Z88.8 Allergy status to other drugs, medicaments and biological substances; Z87.01 Personal history of pneumonia (recurrent); Z89.432 Acquired absence of left foot; Z86.19 Personal history of other infectious and parasitic diseases; Z82.49 Family history of ischemic heart disease and other diseases of the circulatory system; Z84.1 Family history of disorders of kidney and ureter; Y83.5 Amputation of limb(s) as the cause of abnormal reaction of the patient, or of later complication, without mention of misadventure at the time of the procedure
CPT/HCPCS: 36415; 71045; 71046; 80048; 80053; 81001; 82272; 82550; 83036; 83540; 83550; 83605; 83880; 84484; 85025; 85610; 85730; 87040; 87070; 87077; 87186; 87205; 93005; 94640; 96365; 96366; 96367; 96375; 96376; 99285

== ENCOUNTER 2020-10-18 21:50 | Inpatient (IN) | payer MEDICARE, OTHER ==
[2020-10-18] MEDS ORDERED: SODIUM CHLORIDE 0.9% 1,000 ML IV STA (22:11)
[2020-10-18] MEDS ORDERED: HYDROmorphone 1 MG/ML 1 ML SYRINGE IVP STA (22:13)
[2020-10-18] MEDS ORDERED: LEVOFLOXACIN 750MG-D5W PMX 750 MG in DEXTROSE/WATER 1 150ML.BAG IVPB STA (22:21)
[2020-10-18] MEDS ORDERED: VANCOMYCIN IV PER PHARMACY 1 EACH MISC MISCELLANE PRN (22:21)
[2020-10-18] MEDS ORDERED: VANCOMYCIN 2,250 MG in SODIUM CHLORIDE 0.9% 500 ML 500 ML IVPB STA (22:24)
--- NOTE | 2020-10-18 22:47 | ED ---
Skin/Abscess/FB HPI - General Chief complaint: Skin/Abscess/Foreign Body Stated complaint: Cellulitis L leg Time Seen by Provider: 10/18/20 22:01 Source: patient, RN notes reviewed, old records reviewed Mode of arrival: ambulatory Limitations: no limitations - History of Present Illness Initial comments: Patient is a 44-year-old female with history of diabetes heart failure. She has a history of right [id number] amputation due to neuropathy and infection. She presents today with pain and swelling to the left lower extremity. Her son noticed that she has a new developing ulcer on the left foot. Patient presents with worsening pain swelling and redness to the left worsening of her foot and calf. 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 She reports that she is managed previous wounds with Dr. Hurd and he completed her right leg amputation. Patient reports that she's had some shortness of breath and does report a history of CHF. Patient states that she has no acute chest pain. Denies any fevers at home. - Related Data Home Medications Medication Instructions Recorded Confirmed INSULIN ASPART (NovoLOG) [NovoLOG See Protocol SQ AC-TID 04/30/19 10/18/20 (formulary)] Insulin Glargine [Lantus] 35 unit SQ HS 04/30/19 10/18/20 Spironolactone [Aldactone] 25 mg PO BID 07/26/19 10/18/20 Apixaban [Eliquis] 5 mg PO BID 07/27/19 10/18/20 Ipratropium-Albuterol Nebulize 3 ml INHALATION RT-QID PRN 05/21/20 10/18/20 [Duoneb 0.5 mg-3 mg/3 ml Soln] Lacosamide [Vimpat] 50 mg PO DAILY 05/21/20 10/18/20 ALPRAZolam [Xanax] 0.5 mg PO HS 10/18/20 10/18/20 Escitalopram [Lexapro] 10 mg PO DAILY 10/18/20 10/18/20 Furosemide [Lasix] 40 mg PO BID 10/18/20 10/18/20 Gabapentin [Neurontin] 600 mg PO TID 10/18/20 10/18/20 Metoprolol Succinate [Toprol XL] 25 mg PO DAILY 10/18/20 10/18/20 Omeprazole 20 mg PO DAILY PRN 10/18/20 10/18/20 Sacubitril/Valsartan [Entresto 24 1 tab PO BID 10/18/20 10/18/20 mg-26 mg Tablet] Allergies Allergy/AdvReac Type Severity Reaction Status Date / Time Penicillins Allergy Rash/Hives Verified 10/18/20 21:58 ondansetron [From Zofran] AdvReac Nausea & Verified 10/18/20 21:58 Vomiting Review of Systems ROS Statement: Those systems with pertinent positive or pertinent negative responses have been documented in the HPI. ROS Other: All systems not noted in ROS Statement are negative. Past Medical History Past Medical History: Asthma, Heart Failure, COPD, CVA/TIA, Diabetes Mellitus, Hypertension, Myocardial Infarction ([place]), Pneumonia, Seizure Disorder, Seizure Disorder Additional Past Medical History / Comment(s): uses a cane. Last seizure unknown Last Myocardial Infarction Date:: 06/2018 History of Any Multi-Drug Resistant Organisms: MRSA, VRE, VRE Date of last positivie culture/infection: 2016 MDRO Source:: bilat feet Past Surgical History: Adenoidectomy, AICD, Section, Heart Catheterization, Orthopedic Surgery, Pacemaker, Tonsillectomy Additional Past Surgical History / Comment(s): AICD - [employer]. has pacemaker defibrillator, right all toe amputated 04/2016, LT GREAT TOE then left foot partial amputation Past Anesthesia/Blood Transfusion Reactions: Postoperative Nausea & Vomiting (PONV) Type of Cardiac Device: Biventricular Pacemaker, Permanent Pacemaker, AICD Device Placement Date:: 2011 Past Psychological History: Bipolar Smoking Status: Former smoker Past Alcohol Use History: None Reported Past Drug Use History: Marijuana - Past Family History Mother Family Medical History: Deep Vein Thrombosis (DVT) Additional Family Medical History / Comment(s): Some type of heart problems, kidney failure. Father History Unknown: Yes Family Medical History: Unable to Obtain Additional Family Medical History / Comment(s): Patient denies knowing any medical history on her father. General Exam - General Exam Comments Initial Comments: 44-year-old female. Alert and oriented 3. No acute distress. Limitations: no limitations General appearance: alert, in no apparent distress Head exam: Present: atraumatic, normocephalic, normal inspection Eye exam: Present: normal appearance, PERRL, EOMI. Absent: scleral icterus, conjunctival injection, periorbital swelling ENT exam: Present: normal exam, mucous membranes moist Neck exam: Present: normal inspection. Absent: tenderness, meningismus, lymphadenopathy Respiratory exam: Present: normal lung sounds bilaterally. Absent: respiratory distress, wheezes, rales, rhonchi, stridor Cardiovascular Exam: Present: regular rate, normal rhythm, normal heart sounds. Absent: systolic murmur, diastolic murmur, rubs, gallop, clicks GI/Abdominal exam: Present: soft, normal bowel sounds. Absent: distended, tenderness, guarding, rebound, rigid Extremities exam: Present: normal capillary refill. Absent: normal inspection, full ROM, tenderness, pedal edema, joint swelling, calf tenderness Left Lower Leg exam: Present: swelling (ulceration over medial ankle), erythema. Absent: normal inspection, full ROM Ankle exam: Absent: normal inspection, full ROM Foot/Toe exam: Absent: normal inspection, full ROM (Patient has complete toe amputation over the left foot. Patient has erythema. There is a 2 cm circular ulceration between the second and first metatarsal.) Neurovascular tendon exam: Present: no vascular compromise Gait: observed and normal Back exam: Present: normal inspection Neurological exam: Present: alert, oriented X3, CN II-XII intact Psychiatric exam: Present: normal affect, normal mood Skin exam: Present: warm, dry, intact, normal color. Absent: rash Course Vital Signs 10/18/20 10/18/20 10/19/20 21:54 23:00 00:00 Temperature 98.2 F Pulse Rate 103 H 91 87 Respiratory 22 19 19 Rate Blood Pressure 128/71 114/79 119/73 O2 Sat by Pulse 100 99 99 Oximetry 10/19/20 01:00 Temperature Pulse Rate 99 Respiratory 19 Rate Blood Pressure 131/68 O2 Sat by Pulse 99 Oximetry Medical Decision Making - Medical Decision Making 44-year-old female presents with left foot pain and redness and swelling. She has a history of diabetes neuropathy. Patient x-ray shows evidence of subcutaneous air and cannot rule out osteomyelitis. She has diffuse cellulitis. She started on vancomycin and Levaquin with history of ALLERGY to penicillins. Patient has had a right below the knee amputee. She has evidence of ulceration on the left foot today which was cultured. Discussed that this could be can certainly she may need to have further surgeries. Patient has multiple comorbi dities. She is complaining of some shortness of breath for the past week as well.Troponin was 0.12. BNP 1500. At this time the patient's comorbidities evidence of subcutaneous air and patient's concern for severe infection in the lower leg. We'll admit the Patient this time for IV antibiotics and consults to Dr. Hurd. - Lab Data Result diagrams: 10/18/20 23:25 10/18/20 23:25 Lab Results 10/18/20 10/18/20 10/18/20 Range/Units 23:25 23:25 23:25 WBC 8.8 (3.8-10.6) k/uL RBC 4.54 (3.80-5.40) m/uL Hgb 9.0 L (11.4-16.0) gm/dL Hct 30.9 L (34.0-46.0) % MCV 67.9 L (80.0-100.0) fL MCH 19.7 L (25.0-35.0) pg MCHC 29.1 L (31.0-37.0) g/dL RDW 17.5 H (11.5-15.5) % Plt Count 253 (150-450) k/uL MPV 8.2 Neutrophils % (Manual) 76 % Band Neuts % (Manual) 1 % Lymphocytes % (Manual) 18 % Monocytes % (Manual) 5 % Neutrophils # (Manual) 6.70 (1.3-7.7) k/uL Lymphocytes # (Manual) 1.58 (1.0-4.8) k/uL Monocytes # (Manual) 0.44 (0-1.0) k/uL Nucleated RBCs 0 (0-0) /100 WBC Manual Slide Review Performed Hypochromasia Marked Poikilocytosis Marked Poikilocytosis (manual Present Anisocytosis Slight Microcytosis Marked Target Cells Present Ovalocytes Present PT 12.1 H (9.0-12.0) sec INR 1.2 H (<1.2) APTT 23.5 (22.0-30.0) sec Sodium 138 (137-145) mmol/L Potassium 4.0 (3.5-5.1) mmol/L Chloride 102 (98-107) mmol/L Carbon Dioxide 28 (22-30) mmol/L Anion Gap 8 mmol/L BUN 28 H (7-17) mg/dL Creatinine 1.00 (0.52-1.04) mg/dL Est GFR (CKD-EPI)AfAm 79 (>60 ml/min/1.73 sqM) Est GFR (CKD-EPI)NonAf 68 (>60 ml/min/1.73 sqM) Glucose 147 H (74-99) mg/dL Plasma Lactic Acid Warren (0.7-2.0) mmol/L Calcium 8.4 (8.4-10.2) mg/dL Magnesium 1.8 (1.6-2.3) mg/dL Total Bilirubin 1.0 (0.2-1.3) mg/dL AST 72 H (14-36) U/L ALT 74 H (4-34) U/L Alkaline Phosphatase 120 (38-126) U/L Troponin I (0.000-0.034) ng/mL NT-Pro-B Natriuret Pep pg/mL Total Protein 7.1 (6.3-8.2) g/dL Albumin 3.7 (3.5-5.0) g/dL 10/18/20 10/18/20 10/18/20 Range/Units 23:25 23:25 23:25 WBC (3.8-10.6) k/uL RBC (3.80-5.40) m/uL Hgb (11.4-16.0) gm/dL Hct (34.0-46.0) % MCV (80.0-100.0) fL MCH (25.0-35.0) pg MCHC (31.0-37.0) g/dL RDW (11.5-15.5) % Plt Count (150-450) k/uL MPV Neutrophils % (Manual) % Band Neuts % (Manual) % Lymphocytes % (Manual) % Monocytes % (Manual) % Neutrophils # (Manual) (1.3-7.7) k/uL Lymphocytes # (Manual) (1.0-4.8) k/uL Monocytes # (Manual) (0-1.0) k/uL Nucleated RBCs (0-0) /100 WBC Manual Slide Review Hypochromasia Poikilocytosis Poikilocytosis (manual Anisocytosis Microcytosis Target Cells Ovalocytes PT (9.0-12.0) sec INR (<1.2) APTT (22.0-30.0) sec Sodium (137-145) mmol/L Potassium (3.5-5.1) mmol/L Chloride (98-107) mmol/L Carbon Dioxide (22-30) mmol/L Anion Gap mmol/L BUN (7-17) mg/dL Creatinine (0.52-1.04) mg/dL Est GFR (CKD-EPI)AfAm (>60 ml/min/1.73 sqM) Est GFR (CKD-EPI)NonAf (>60 ml/min/1.73 sqM) Glucose (74-99) mg/dL Plasma Lactic Acid Warren 1.6 (0.7-2.0) mmol/L Calcium (8.4-10.2) mg/dL Magnesium (1.6-2.3) mg/dL Total Bilirubin (0.2-1.3) mg/dL AST (14-36) U/L ALT (4-34) U/L Alkaline Phosphatase (38-126) U/L Troponin I <0.012 (0.000-0.034) ng/mL NT-Pro-B Natriuret Pep 1500 pg/mL Total Protein (6.3-8.2) g/dL Albumin (3.5-5.0) g/dL - Radiology Data Radiology results: report reviewed Chest x-ray shows cardiomegaly. Clinical correlation advised. Probable subsegmental atelectasis at the lung bases. Osteopenia. No pleural effusion detected. fracture dislocation of the left tibia or fibula. There is concern for cellulitis I surmise MRI should be performed. Patient's foot x-ray shows a dictation of left forefoot. Subcutaneous swelling and anterior medial subcutaneous air is worrisome for diffuse cellulitis anteriorly. Osteomyelitis cannot be excluded. MRI of the left foot is advised for further assessment. Disposition Clinical Impression: Cellulitis of left foot, Cardiomegaly, Uncontrolled type 2 diabetes mellitus without complication, with long-term current use of insulin, Diabetic ulcer of left foot associated with type 2 diabetes mellitus, with fat layer exposed, Diabetes Disposition: ADMITTED IP TO THIS HOSP Is patient prescribed a controlled substance at d/c from ED?: No Referrals: None,Stated [Primary Care Provider] - 1-2 days Time of Disposition: 02:22
[2020-10-18 23:39] LABS: Anisocytosis Slight; HCT 30.9 % (34.0-46.0); Hypochromasia Marked; MCH 19.7 pg (25.0-35.0); MCHC 29.1 g/dL (31.0-37.0); MCV 67.9 fL (80.0-100.0); Mean Platelet Volume 8.2; Microcytosis Marked; Platelet Count 253 k/uL (150-450); Poikilocytosis Marked; RBC 4.54 m/uL (3.80-5.40); RDW 17.5 % (11.5-15.5); WBC 8.8 k/uL (3.8-10.6)
[2020-10-18 23:47] LABS: Albumin 3.7 g/dL (3.5-5.0); Calcium 8.4 mg/dL (8.4-10.2); Magnesium 1.8 mg/dL (1.6-2.3); Total Protein 7.1 g/dL (6.3-8.2)
[2020-10-18 23:49] LABS: INR 1.2 (<1.2); Partial Thromboplastin Time 23.5 sec (22.0-30.0); Prothrombin Time 12.1 sec (9.0-12.0)
--- NOTE | 2020-10-19 00:22 | XR ---
EXAM: XR Chest, 2 Views CLINICAL HISTORY: ITS.REASON XR Reason: difficulty breathing TECHNIQUE: Frontal and lateral views of the chest. COMPARISON: 05/27/2020. FINDINGS: Lungs: Probable minimal subsegmental atelectasis at the lung bases. Pleural space: No pleural effusions. No pneumothorax. Heart: There is are marked cardiomegaly. Pericardial effusion cannot be excluded. Mediastinum: Unremarkable. Bones/joints: Osteopenia. Tubes, lines and devices: Pacemaker overlies the left upper chest. Right IJ catheter is noted in place with its tip at the proximal superior vena cava. Upper abdomen: Minimal elevation of the right hemidiaphragm. IMPRESSION: 1. There is significant cardiomegaly. Clinical correlation is advised. 2. Probable minimal subsegmental atelectasis at the lung bases. 3. Osteopenia. 4. No pleural effusion is detected.
--- NOTE | 2020-10-19 00:24 | XR ---
EXAM: XR Left Tibia and Fibula, 2 Views CLINICAL HISTORY: ITS.REASON XR Reason: wound TECHNIQUE: Frontal and lateral views of the left tibia and fibula. COMPARISON: No previous study. FINDINGS: Bones/joints: No acute fracture of the left tibia or fibula. Mild to moderate osteoarthritic changes about the left knee joint. 1 cm anterior heel spur of the calcaneus. 0.3 semi-posterior heel spur of the calcaneus. No dislocation. Soft tissues: Prominent soft tissues. No radiopaque foreign body. IMPRESSION: 1. No acute fracture or dislocation about the left tibia or fibula. 2. If there is concern for cellulitis or osteomyelitis, magnetic resonance imaging should be performed.
--- NOTE | 2020-10-19 00:25 | XR ---
EXAM: XR Left Foot Complete, 3 or More Views CLINICAL HISTORY: ITS.REASON XR Reason: wound TECHNIQUE: Frontal, lateral and oblique views of the left foot. COMPARISON: No previous study. FINDINGS: Bones/joints: Post amputation changes of the left foot are noted involving the left forefoot. Osteomyelitis cannot be excluded. Heel spurs. No acute fracture. No dislocation. Soft tissues: There is soft tissue swelling and subcutaneous air medially at the region of the left mid foot. No radiopaque foreign body. Other findings: The possibility of cellulitis is raised. IMPRESSION: 1. Amputation of the left forefoot. 2. Subcutaneous swelling and are anterior medial subcutaneous air worrisome for diffuse cellulitis anteriorly. 3. Osteomyelitis cannot be excluded. 4. Magnetic resonance imaging of the left foot is advised for further assessment.
[2020-10-19 00:36] LABS: Band Neutrophils % 1 %; Lymphocytes # (M) 1.58 k/uL (1.0-4.8); Monocytes # (M) 0.44 k/uL (0-1.0); Neutrophils % (M) 76 %; Nucleated Red Blood Cells 0 /100 WBC (0-0); Poikilocytosis (M) Present; Target Cells Present; Total Cells Counted 100
[2020-10-19 00:37] LABS: Ovalocytes Present
[2020-10-19] MEDS ORDERED: cefTRIAXone IN SWFI 1,000 MG/10 ML SYRINGE IVP STA (00:58)
[2020-10-19] MEDS ORDERED: diphenhydrAMINE 50 MG/ML 1 ML VIAL IVP STA (01:00)
[2020-10-19] MEDS ORDERED: HYDROmorphone 1 MG/ML 1 ML SYRINGE IVP STA (01:37)
[2020-10-19] MEDS ORDERED: ACETAMINOPHEN TAB 325 MG TAB PO PRN (02:23)
[2020-10-19] MEDS ORDERED: KETOROLAC 15 MG/ML 1 ML VIAL IVP PRN (02:23)
[2020-10-19] MEDS ORDERED: NALOXONE 0.4 MG/ML 1 ML VIAL IV PRN (02:23)
[2020-10-19] MEDS ORDERED: ONDANSETRON 4 MG/2 ML VIAL IVP PRN (02:23)
[2020-10-19] MEDS ORDERED: IBUPROFEN 400 MG TAB PO PRN (02:23)
[2020-10-19] MEDS ORDERED: NON FORMULARY DRUG (Omeprazole [Omeprazole] 20 MG Capsule.Dr) PO PRN (02:27)
[2020-10-19] MEDS: SODIUM CHLORIDE 0.9% 1,000 ML IV SCH ×2 (03:42→14:14)
[2020-10-19 07:05] LABS: Glucose,Whole Blood 81 mg/dL (75-99)
[2020-10-19] MEDS: INSULIN ASPART (NovoLOG) 100 UNIT/ML VIAL SQ SCH ×4 (07:19→22:01)
[2020-10-19] MEDS: FUROSEMIDE 40 MG TAB PO SCH ×2 (08:40→22:10)
[2020-10-19] MEDS: LACOSAMIDE 50 MG TABLET PO SCH (08:40)
[2020-10-19] MEDS: SPIRONOLACTONE 25 MG TAB PO SCH ×2 (08:40→22:09)
[2020-10-19] MEDS: METOPROLOL SUCCINATE (ER) 25 MG TAB.ER.24H PO SCH (08:40)
[2020-10-19] MEDS: GABAPENTIN 300 MG CAP PO SCH ×3 (08:41→22:09)
[2020-10-19] MEDS: APIXABAN 5 MG TAB PO SCH ×2 (08:41→22:09)
[2020-10-19] MEDS: SACUBITRIL/VALSARTAN 24 MG-26 MG TABLET PO SCH ×2 (08:41→22:09)
[2020-10-19] MEDS: PANTOPRAZOLE 40 MG/10 ML VIAL IV SCH (08:41)
[2020-10-19] MEDS: ESCITALOPRAM 10 MG TAB PO SCH (08:41)
[2020-10-19] MEDS: HYDROmorphone 1 MG/ML 1 ML SYRINGE IVP PRN ×3 (09:16→22:08)
[2020-10-19] MEDS ORDERED: LIDOCAINE 1% INJ 10MG/ML (20 ML MDV) SQ ONE (11:00)
--- NOTE | 2020-10-19 11:13 | P.GSCN ---
History of Present Illness History of present illness: 44-year-old diabetic female well known to me from the past. Patient came with pain swelling and redness of the right below-knee stump and also patient has a wound on the plantar surface aspect of the left transmetatarsal foot. And had a right below-knee impression and in the past patient of flap necrosis because she fall at home we will treating with local wound care. Patient also had a left transmetatarsal amputation done in the past she has a wound on the plantar aspect. On neck examination neck is supple no bruit appreciated Chest patient has a some crackles the lung bases first and second sound present Vascular femorals are 1+ right below-knee stump has a debridement rest tissue measurement is 5 x 2 cm with cellulitis and redness noted around the periwound area. Left foot has a transmetatarsal amputation with ulcer on the plantar aspect Plan is right below-knee stump did debridement and deep culture arrange for debridement and local wound care of the left left leg Past Medical History Past Medical History: Asthma, Heart Failure, COPD, CVA/TIA, Diabetes Mellitus, Hypertension, Myocardial Infarction ([place]), Pneumonia, Seizure Disorder, Seizure Disorder Additional Past Medical History / Comment(s): uses a cane. Last seizure unknown Last Myocardial Infarction Date:: 06/2018 History of Any Multi-Drug Resistant Organisms: MRSA, VRE, VRE Year Discovered:: 2017 MDRO Source:: bilat feet Past Surgical History: Adenoidectomy, AICD, Section, Heart Catheterization, Orthopedic Surgery, Pacemaker, Tonsillectomy Additional Past Surgical History / Comment(s): AICD - [employer]. has pacemaker defibrillator, right all toe amputated 04/2016, LT GREAT TOE then left foot partial amputation Past Anesthesia/Blood Transfusion Reactions: Postoperative Nausea & Vomiting (PONV) Type of Cardiac Device: Biventricular Pacemaker, Permanent Pacemaker, AICD Device Placement Date:: 2011 Past Psychological History: Bipolar Additional Psychological History / Comment(s): Pt resides with her son. She is wheelchair bound/transfers self. She has home care thru [facility] for wound care. She has 2 cats and 2 birds. She has a glucometer and nebulizer. Smoking Status: Former smoker Past Alcohol Use History: None Reported Additional Past Alcohol Use History / Comment(s): Patient was a smoker of a half a pack cigarettes per day for 32 years and quit in June 2018. Past Drug Use History: Marijuana Additional Drug Use History / Comment(s): Pt smokes marijuana at HS for a sleep aide or for pain control - Past Family History Mother Family Medical History: Deep Vein Thrombosis (DVT) Additional Family Medical History / Comment(s): Some type of heart problems, kidney failure. Father History Unknown: Yes Family Medical History: Unable to Obtain Additional Family Medical History / Comment(s): Patient denies knowing any medical history on her father. Medications and Allergies Home Medications Medication Instructions Recorded Confirmed Type INSULIN ASPART (NovoLOG) [NovoLOG See Protocol SQ AC-TID 04/30/19 10/18/20 History (formulary)] Insulin Glargine [Lantus] 35 unit SQ HS 04/30/19 10/18/20 History Spironolactone [Aldactone] 25 mg PO BID 07/26/19 10/18/20 History Apixaban [Eliquis] 5 mg PO BID 07/27/19 10/18/20 History Ipratropium-Albuterol Nebulize 3 ml INHALATION RT-QID PRN 05/21/20 10/18/20 History [Duoneb 0.5 mg-3 mg/3 ml Soln] Lacosamide [Vimpat] 50 mg PO DAILY 05/21/20 10/18/20 History ALPRAZolam [Xanax] 0.5 mg PO HS 10/18/20 10/18/20 History Escitalopram [Lexapro] 10 mg PO DAILY 10/18/20 10/18/20 History Furosemide [Lasix] 40 mg PO BID 10/18/20 10/18/20 History Gabapentin [Neurontin] 600 mg PO TID 10/18/20 10/18/20 History Metoprolol Succinate [Toprol XL] 25 mg PO DAILY 10/18/20 10/18/20 History Omeprazole 20 mg PO DAILY PRN 10/18/20 10/18/20 History Sacubitril/Valsartan [Entresto 24 1 tab PO BID 10/18/20 10/18/20 History mg-26 mg Tablet] Allergies Allergy/AdvReac Type Severity Reaction Status Date / Time Penicillins Allergy Rash/Hives Verified 10/18/20 21:58 ondansetron [From Zofran] AdvReac Nausea & Verified 10/18/20 21:58 Vomiting Surgical - Exam Vital Signs Temp Pulse Resp BP Pulse Ox 98.2 F 103 H 22 128/71 100 10/18/20 21:54 10/18/20 21:54 10/18/20 21:54 10/18/20 21:54 10/18/20 21:54 Results - Labs 10/18/20 23:25 10/18/20 23:25 Abnormal Lab Results - Last 24 Hours (Table) 10/18/20 10/18/20 10/18/20 Range/Units 23:25 23:25 23:25 Hgb 9.0 L (11.4-16.0) gm/dL Hct 30.9 L (34.0-46.0) % MCV 67.9 L (80.0-100.0) fL MCH 19.7 L (25.0-35.0) pg MCHC 29.1 L (31.0-37.0) g/dL RDW 17.5 H (11.5-15.5) % PT 12.1 H (9.0-12.0) sec INR 1.2 H (<1.2) BUN 28 H (7-17) mg/dL Glucose 147 H (74-99) mg/dL AST 72 H (14-36) U/L ALT 74 H (4-34) U/L Diabetes panel 10/18/20 Range/Units 23:25 Sodium 138 (137-145) mmol/L Potassium 4.0 (3.5-5.1) mmol/L Chloride 102 (98-107) mmol/L Carbon Dioxide 28 (22-30) mmol/L BUN 28 H (7-17) mg/dL Creatinine 1.00 (0.52-1.04) mg/dL Glucose 147 H (74-99) mg/dL Calcium 8.4 (8.4-10.2) mg/dL AST 72 H (14-36) U/L ALT 74 H (4-34) U/L Alkaline Phosphatase 120 (38-126) U/L Total Protein 7.1 (6.3-8.2) g/dL Albumin 3.7 (3.5-5.0) g/dL Calcium panel 10/18/20 Range/Units 23:25 Calcium 8.4 (8.4-10.2) mg/dL Albumin 3.7 (3.5-5.0) g/dL Pituitary panel 10/18/20 Range/Units 23:25 Sodium 138 (137-145) mmol/L Potassium 4.0 (3.5-5.1) mmol/L Chloride 102 (98-107) mmol/L Carbon Dioxide 28 (22-30) mmol/L BUN 28 H (7-17) mg/dL Creatinine 1.00 (0.52-1.04) mg/dL Glucose 147 H (74-99) mg/dL Calcium 8.4 (8.4-10.2) mg/dL Adrenal panel 10/18/20 Range/Units 23:25 Sodium 138 (137-145) mmol/L Potassium 4.0 (3.5-5.1) mmol/L Chloride 102 (98-107) mmol/L Carbon Dioxide 28 (22-30) mmol/L BUN 28 H (7-17) mg/dL Creatinine 1.00 (0.52-1.04) mg/dL Glucose 147 H (74-99) mg/dL Calcium 8.4 (8.4-10.2) mg/dL Total Bilirubin 1.0 (0.2-1.3) mg/dL AST 72 H (14-36) U/L ALT 74 H (4-34) U/L Alkaline Phosphatase 120 (38-126) U/L Total Protein 7.1 (6.3-8.2) g/dL Albumin 3.7 (3.5-5.0) g/dL
--- NOTE | 2020-10-19 11:17 | P.PCN ---
Description of Procedure: Preop diagnoses is some wound is 6 x 3 cm with differential colitis tissue Postoperative same measurement is 6 x 3 cm Procedure right was prepped and draped applied used an manner 1% lidocaine for infected using sharp knife we did the debridement down to separate his tissue deep tissue was excised and sent for culture and sensitivity no active bleeding was noted wound was irrigated with saline and medihoney gel applied to the wound dressing applied patient are to the procedure well
[2020-10-19 11:56] LABS: Glucose,Whole Blood 110 mg/dL (75-99)
--- NOTE | 2020-10-19 12:42 | P.HPIM ---
History of Present Illness 44-year-old female with history of diabetes heart failure. 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 She presents today with pain and swelling to the left lower extremity. Her son noticed that she has a new developing ulcer on the left foot. Patient presents with worsening pain swelling and redness to the left worsening of her foot and calf. 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 She reports that she is managed previous wounds with Dr. Hurd and he completed her right leg amputation. Patient reports that she's had some shortness of breath and does report a history of CHF. Patient states that she has no acute chest pain. Denies any fevers at home. 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 Deep cultures are being obtained patient has a left stump ulcer infection. Patient does have history of congestive heart failure with EF of around 20-25%, IV fluids were discontinued Review of Systems REVIEW OF SYSTEMS: CONSTITUTIONAL: No fever, no malaise, no fatigue. HEENT: No recent visual problems or hearing problems. Denied any sore throat. CARDIOVASCULAR: No chest pain, orthopnea, PND, no palpitations, no syncope. PULMONARY: No shortness of breath, no cough, no hemoptysis. GASTROINTESTINAL: No diarrhea, no nausea, no vomiting, no abdominal pain. NEUROLOGICAL: No headaches, no weakness, no numbness. HEMATOLOGICAL: Denies any bleeding or petechiae. GENITOURINARY: Denies any burning micturition, frequency, or urgency. MUSCULOSKELETAL/RHEUMATOLOGICAL: Denies any joint pain, swelling, or any muscle pain. ENDOCRINE: Denies any polyuria or polydipsia. The rest of the 14-point review of systems is negative. Past Medical History Past Medical History: Asthma, Heart Failure, COPD, CVA/TIA, Diabetes Mellitus, Hypertension, Myocardial Infarction ([place]), Pneumonia, Seizure Disorder, Seizure Disorder Additional Past Medical History / Comment(s): uses a cane. Last seizure unknown Last Myocardial Infarction Date:: 06/2018 History of Any Multi-Drug Resistant Organisms: MRSA, VRE, VRE Date of last positivie culture/infection: 2016 MDRO Source:: bilat feet Past Surgical History: Adenoidectomy, AICD, Section, Heart C atheterization, Orthopedic Surgery, Pacemaker, Tonsillectomy Additional Past Surgical History / Comment(s): AICD - [employer]. has pacemaker defibrillator, right all toe amputated 04/2016, LT GREAT TOE then left foot partial amputation Past Anesthesia/Blood Transfusion Reactions: Postoperative Nausea & Vomiting (PONV) Type of Cardiac Device: Biventricular Pacemaker, Permanent Pacemaker, AICD Device Placement Date:: 2011 Past Psychological History: Bipolar Additional Psychological History / Comment(s): Pt resides with her son. She is wheelchair bound/transfers self. She has home care thru [facility] for wound care. She has 2 cats and 2 birds. She has a glucometer and nebulizer. Smoking Status: Former smoker Past Alcohol Use History: None Reported Additional Past Alcohol Use History / Comment(s): Patient was a smoker of a half a pack cigarettes per day for 32 years and quit in June 2018. Past Drug Use History: Marijuana Additional Drug Use History / Comment(s): Pt smokes marijuana at HS for a sleep aide or for pain control - Past Family History Mother Family Medical History: Deep Vein Thrombosis (DVT) Additional Family Medical History / Comment(s): Some type of heart problems, kidney failure. Father History Unknown: Yes Family Medical History: Unable to Obtain Additional Family Medical History / Comment(s): Patient denies knowing any medical history on her father. Medications and Allergies Home Medications Medication Instructions Recorded Confirmed Type INSULIN ASPART (NovoLOG) [NovoLOG See Protocol SQ AC-TID 04/30/19 10/18/20 History (formulary)] Insulin Glargine [Lantus] 35 unit SQ HS 04/30/19 10/18/20 History Spironolactone [Aldactone] 25 mg PO BID 07/26/19 10/18/20 History Apixaban [Eliquis] 5 mg PO BID 07/27/19 10/18/20 History Ipratropium-Albuterol Nebulize 3 ml INHALATION RT-QID PRN 05/21/20 10/18/20 History [Duoneb 0.5 mg-3 mg/3 ml Soln] Lacosamide [Vimpat] 50 mg PO DAILY 05/21/20 10/18/20 History ALPRAZolam [Xanax] 0.5 mg PO HS 10/18/20 10/18/20 History Escitalopram [Lexapro] 10 mg PO DAILY 10/18/20 10/18/20 History Furosemide [Lasix] 40 mg PO BID 10/18/20 10/18/20 History Gabapentin [Neurontin] 600 mg PO TID 10/18/20 10/18/20 History Metoprolol Succinate [Toprol XL] 25 mg PO DAILY 10/18/20 10/18/20 History Omeprazole 20 mg PO DAILY PRN 10/18/20 10/18/20 History Sacubitril/Valsartan [Entresto 24 1 tab PO BID 10/18/20 10/18/20 History mg-26 mg Tablet] Allergies Allergy/AdvReac Type Severity Reaction Status Date / Time Penicillins Allergy Rash/Hives Verified 10/18/20 21:58 ondansetron [From Zofran] AdvReac Nausea & Verified 10/18/20 21:58 Vomiting Physical Exam Vitals: Vital Signs Temp Pulse Pulse Resp BP BP Pulse Ox 10/19/20 07:00 97.7 F 96 16 102/61 94 L 10/19/20 03:15 97.8 F 108 H 19 117/77 97 10/19/20 03:00 97.6 F 95 19 111/73 95 10/19/20 02:00 98.7 F 98 20 128/88 95 10/19/20 01:00 99 19 131/68 99 10/19/20 00:00 87 19 119/73 99 10/18/20 23:00 91 19 114/79 99 10/18/20 21:54 98.2 F 103 H 22 128/71 100 Intake and Output 10/18/20 10/19/20 10/19/20 22:59 06:59 14:59 Other: Voiding Method Bedside Commode Weight 136.078 kg 136.078 kg PHYSICAL EXAMINATION: GENERAL: The patient is alert and oriented x3, not in any acute distress. Well developed, well nourished. HEENT: Pupils are round and equally reacting to light. EOMI. No scleral icterus. No conjunctival pallor. Normocephalic, atraumatic. No pharyngeal erythema. No thyromegaly. CARDIOVASCULAR: S1 and S2 present. No murmurs, rubs, or gallops. PULMONARY: Chest is clear to auscultation, no wheezing or crackles. ABDOMEN: Soft, nontender, nondistended, normoactive bowel sounds. No palpable organomegaly. MUSCULOSKELETAL: Her lower limb edema. Patient has a right leg below-knee stump appears to be infected patient has a ulcer in the stump area which appears to be infected EXTREMITIES: No cyanosis, clubbing, or pedal edema. NEUROLOGICAL: Gross neurological examination did not reveal any focal deficits. SKIN: No rashes. Results CBC & Chem 7: 10/18/20 23:25 10/18/20 23:25 Labs: Abnormal Lab Results - Last 24 Hours (Table) 10/18/20 10/18/20 10/18/20 Range/Units 23:25 23:25 23:25 Hgb 9.0 L (11.4-16.0) gm/dL Hct 30.9 L (34.0-46.0) % MCV 67.9 L (80.0-100.0) fL MCH 19.7 L (25.0-35.0) pg MCHC 29.1 L (31.0-37.0) g/dL RDW 17.5 H (11.5-15.5) % PT 12.1 H (9.0-12.0) sec INR 1.2 H (<1.2) BUN 28 H (7-17) mg/dL Glucose 147 H (74-99) mg/dL POC Glucose (mg/dL) (75-99) mg/dL AST 72 H (14-36) U/L ALT 74 H (4-34) U/L 10/19/20 Range/Units 11:55 Hgb (11.4-16.0) gm/dL Hct (34.0-46.0) % MCV (80.0-100.0) fL MCH (25.0-35.0) pg MCHC (31.0-37.0) g/dL RDW (11.5-15.5) % PT (9.0-12.0) sec INR (<1.2) BUN (7-17) mg/dL Glucose (74-99) mg/dL POC Glucose (mg/dL) 110 H (75-99) mg/dL AST (14-36) U/L ALT (4-34) U/L Microbiology - Last 24 Hours (Table) 10/19/20 02:53 Wound Culture - Preliminary Foot - Left Thrombosis Risk Factor Assmnt - Choose All That Apply Each Factor Represents 1 point: Abnormal pulmonary function (COPD), Age 41-60 years, Obesity (BMI >25) Thrombosis Risk Factor Assessment Total Risk Factor Score: 3 Thrombosis Risk Factor Assessment Level: Moderate Risk Assessment and Plan Plan: -Infected ulcer, cellulitis of the surgical stump. 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 Patient may need daptomycin infectious disease will be consulted if cultures are being obtained. -Congestive heart heart failure chronic systolic dysfunction patient is presently euvolemic and patient will be resumed on home regimen IV fluids were discontinued. Patient is on entresto. Patient has an AICD next and-COPD without any acute exacerbation -Type 2 diabetes mellitus -Coronary artery disease -Seizure disorder -Patient is on anticoagulation with the Eliquis probably for A. fib which will be resumed and continued
[2020-10-19] MEDS: VANCOMYCIN 2,000 MG in SODIUM CHLORIDE 0.9% 500 ML 500 ML IVPB SCH (14:11)
[2020-10-19 16:58] LABS: Glucose,Whole Blood 105 mg/dL (75-99)
[2020-10-19] MEDS: IPRATROPIUM-ALBUTEROL 3 ML NEB INHALATION PRN (20:39)
[2020-10-19 21:36] LABS: Glucose,Whole Blood 118 mg/dL (75-99)
[2020-10-19] MEDS: INSULIN DETEMIR (LEVEMIR) 100 UNIT/ML SYR SQ SCH (22:08)
[2020-10-19] MEDS: ALPRAZolam 0.5 MG TAB PO SCH (22:09)
[2020-10-20] MEDS: VANCOMYCIN 2,000 MG in SODIUM CHLORIDE 0.9% 500 ML 500 ML IVPB SCH ×2 (01:17→11:48)
[2020-10-20] MEDS: diphenhydrAMINE 25 MG CAP PO PRN (01:18)
--- NOTE | 2020-10-20 05:06 | CONS ---
CONSULTATION DATE OF SERVICE: 10/19/2020 REASON FOR CONSULTATION: Left diabetic foot infection. HISTORY OF PRESENT ILLNESS: The patient is a 44-year-old female with a past medical history significant for right diabetic foot infection and ended up having a right nzlsz-zda-sgkj amputation in this patient who also has an ulceration on the plantar as well as and dorsal aspect of the left foot for which the [facility] The patient presented to [facility] ER last night for evaluation of increasing pain, swelling, redness of the right nalsf-mjj-plgh stump as well as more swelling and redness to the left foot wound. The patient mentioned that her son noticed swelling, redness and drainage to the left foot. The patient did have pain to the left leg more of a dull aching at times sharp 5 to 6 over 10, no radiation. The patient denies high- grade fever or chills. With these symptoms, the patient was evaluated by the ER physician. On arrival to the ER, the patient was afebrile. The patient did have a normal white count. Kidney function was normal. Liver enzymes mildly elevated. The patient did have x-rays of the left foot which did show subcutaneous swelling of the anterior medial subcutaneous air worrisome for diffuse cellulitis. The patient subsequently has been evaluated by Vascular Surgery and status post debridement of the wound and culture has been obtained. The patient was started on vancomycin. Infectious Disease was consulted for further management of antibiotic therapy. REVIEW OF SYSTEMS: Positive points have been mentioned in HPI. Rest of systems negative. PAST MEDICAL HISTORY: Her past medical history is significant for: 1. Right diabetic foot infection and right below the knee amputation. 2. Left diabetic foot wound with multiple debridement. 3. History of asthma, heart failure, COPD, CVA, TIA, diabetes mellitus, hypertension, [place], seizure disorder. PAST SURGICAL HISTORY: Right nkfrz-bsn-sltf amputation, debridement of left foot wound, adenoidectomy, AICD placement, , heart catheterization. SOCIAL HISTORY: Remote history of smoking. Admitted to marijuana use. FAMILY HISTORY: Mother history of DVT. ALLERGIES: Allergies to PENICILLIN and ZOFRAN. MEDICATIONS: Medications include the patient is currently on Tylenol, DuoNeb, Xanax, Eliquis, Lexapro, Lasix, Neurontin, Dilaudid, Motrin, NovoLog, Levemir, Toprol XL, Protonix and vancomycin. PHYSICAL EXAMINATION: Blood pressure is 101/65 with a pulse of 76, temperature is 97.6. She is 92% on room air. General description is a middle-aged female lying in bed in no distress. No tachypnea or accessory muscle of respiration use. HEENT: Examination shows slight pallor. No scleral icterus. Oral mucous membrane is dry. No pharyngeal erythema or thrush. NECK: Trachea central, no thyromegaly. LUNGS: Unlabored breathing, clear to auscultation anteriorly. No wheeze or crackle. HEART: S1, S2. Regular rate and rhythm. ABDOMEN: Soft, no tenderness. No guarding or rigidity. Left foot is currently dressed up, no obvious drainage on the dressing. Right BKA stump is currently dressed, no drainage on the dressing. NEUROLOGICAL: Patient is awake, alert, oriented x3. Mood and affect normal. LABS: Hemoglobin is 9, white count 8.8. BUN of 28, creatinine 1.0. Wound culture is currently pending. DIAGNOSTIC IMPRESSION: 1. Patient with left diabetic foot wound with secondary cellulitis in this patient status post debridement of the wound with cultures currently pending. 2. Right below-knee amputation stump wound, status post debridement. Culture is pending. 3. PENICILLIN allergy. PLAN: 1. Patient to continue with vancomycin pharmacy to dose target of 15 while watching her kidney function and vancomycin trough closely. 2. Local wound care per Surgery. 3. We will follow on her clinical condition and culture to further adjust her medication if needed. Thank you for this consultation. Will follow this patient along with you. MMODL / IJN: [id number] /
[2020-10-20 06:59] LABS: Glucose,Whole Blood 66 mg/dL (75-99)
[2020-10-20] MEDS: HYDROmorphone 1 MG/ML 1 ML SYRINGE IVP PRN ×3 (07:22→18:26)
[2020-10-20] MEDS: PANTOPRAZOLE 40 MG/10 ML VIAL IV SCH (07:24)
[2020-10-20] MEDS: GABAPENTIN 300 MG CAP PO SCH ×3 (07:24→21:36)
[2020-10-20] MEDS: METOPROLOL SUCCINATE (ER) 25 MG TAB.ER.24H PO SCH (07:24)
[2020-10-20] MEDS: SACUBITRIL/VALSARTAN 24 MG-26 MG TABLET PO SCH ×2 (07:25→21:36)
[2020-10-20] MEDS: APIXABAN 5 MG TAB PO SCH ×2 (07:25→21:37)
[2020-10-20] MEDS: LACOSAMIDE 50 MG TABLET PO SCH (07:25)
[2020-10-20] MEDS: INSULIN ASPART (NovoLOG) 100 UNIT/ML VIAL SQ SCH ×4 (07:25→20:34)
[2020-10-20] MEDS: ESCITALOPRAM 10 MG TAB PO SCH (07:25)
[2020-10-20] MEDS: FUROSEMIDE 40 MG TAB PO SCH ×2 (07:25→21:38)
[2020-10-20] MEDS: SPIRONOLACTONE 25 MG TAB PO SCH ×2 (07:26→21:38)
[2020-10-20 07:29] LABS: Glucose,Whole Blood 80 mg/dL (75-99)
[2020-10-20 07:32] LABS: Anisocytosis Slight; HCT 30.8 % (34.0-46.0); HGB 8.6 gm/dL (11.4-16.0); Hypochromasia Marked; MCH 19.6 pg (25.0-35.0); Mean Platelet Volume 7.4; Microcytosis Marked; Platelet Count 228 k/uL (150-450); Poikilocytosis Moderate; RDW 17.4 % (11.5-15.5)
[2020-10-20 11:12] LABS: African American GFR (CKD) 62.8 (60.0-200.0); Anion Gap 8.4 mmol/L (4.00-12.00); Calcium 8.6 mg/dL (8.7-10.3); Carbon Dioxide 28.6 mmol/L (21.6-31.8); Non-African American GFR(CKD) 54.2 (60.0-200.0); Potassium 4.6 mmol/L (3.5-5.5)
[2020-10-20 11:19] LABS: Glucose,Whole Blood 150 mg/dL (75-99)
[2020-10-20] MEDS ORDERED: CEFEPIME 2 GM in SODIUM CHLORIDE 0.9% 100 ML IVPB ONE (11:45)
--- NOTE | 2020-10-20 14:53 | P.PCN ---
Description of Procedure: 44-year-old diabetic female known to me patient had a right BK amputation done in the past patient fell down and developed wound we did the debridement and follow-up in the wound clinic and couldn't come to the wound clinic because of consultation. Patient came with the wound on the below the knee stump with some debridement last tissue and also cellulitis the left lower extremity with wound on the plantar aspect of the left foot. Patient had a debridement and done yesterday abstained came as a Jamie negative bacilli patient is IV antibiotic and local wound care today change her dressing continue with local wound care and antibiotic
--- NOTE | 2020-10-20 14:56 | P.PN ---
Subjective Progress Note Date: 10/20/20 44-year-old female with history of diabetes heart failure. She has a history of right [id number]-[id number]-[id number] amputation due to neuropathy and infection. She presents today with pain and swelling to the left lower extremity. Her son noticed that she has a new developing ulcer on the left foot. Patient presents with worsening pain swelling and redness to the left worsening of her foot and calf. 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 She reports that she is managed previous wounds with Dr. Hurd and he completed her right leg amputation. Patient reports that she's had some shortness of breath and does report a history of CHF. Patient states that she has no acute chest pain. De nies any fevers at home. 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 Deep cultures are being obtained patient has a left stump ulcer infection. Patient does have history of congestive heart failure with EF of around 20-25%, IV fluids were discontinued 10/20/2020 Patient is seen and evaluated in follow-up and is lethargic although arousable. Cardiovascular surgery along with infectious disease following. Patient underwent wound debridement and awaiting for culture finalization. Patient remains on IV antibiotics in the form of cefepime and vancomycin and will continue at this time while awaiting for cultures. Preliminary culture showing gram-negative bacilli. Physical therapy to evaluate the patient as patient has multiple medical comorbidities and difficulty with ambulation and getting around . Patient feels she does not have the proper care at home to manage her needs and is open to the option of possible subacute rehab. Case management consulted and pending at this time. Will await PT/OT therapy notes. Review of systems: Constitutional: No reports of fatigue, fever, or chills, reports left lower extremity pain Cardiovascular: No reports of chest pain or palpitations Respiratory: No reports of shortness of breath or cough GI: No reports of nausea, vomiting, or diarrhea : No reports of dysuria or retention Neurovascular: Reports weakness with no reports of numbness All medications have been reviewed Objective - Vital Signs Vital signs: Vital Signs Temp 97.8 F 10/20/20 07:00 Pulse 105 H 10/20/20 07:00 Resp 20 10/20/20 07:00 BP 128/81 10/20/20 07:00 Pulse Ox 96 10/20/20 07:00 Intake & Output 10/19/20 10/20/20 10/20/20 18:59 06:59 18:59 Intake Total 540 Balance 540 Intake: Oral 540 Other: Voiding Method Bedside Commode Bedside Commode # Voids 3 1 1 - Exam GENERAL: The patient is alert and oriented x3, not in any acute distress. Lethargic although arousable. Well developed, well nourished. HEENT: Pupils are round and equally reacting to light. EOMI. No scleral icterus. No conjunctival pallor. Normocephalic, atraumatic. No pharyngeal erythema. No thyromegaly. CARDIOVASCULAR: S1 and S2 present. No murmurs, rubs, or gallops. PULMONARY: Chest is clear to auscultation, no wheezing or crackles. ABDOMEN: Soft, obese, nontender, nondistended, normoactive bowel sounds. No palpable organomegaly. MUSCULOSKELETAL: Left lower limb edema. Patient has a right leg below-knee stump appears to be infected patient has a ulcer in the stump area which appears to be infected. Lateral lower extremities currently rudy wrapped EXTREMITIES: No cyanosis, clubbing, or pedal edema. NEUROLOGICAL: Gross neurological examination did not reveal any focal deficits. SKIN: No rashes. As mentioned previously - Labs CBC & Chem 7: 10/20/20 06:41 10/20/20 06:41 Labs: Abnormal Lab Results - Last 24 Hours (Table) 10/19/20 10/19/20 10/20/20 Range/Units 16:56 21:35 06:41 Hgb (11.4-16.0) gm/dL Hct (34.0-46.0) % MCV (80.0-100.0) fL MCH (25.0-35.0) pg MCHC (31.0-37.0) g/dL RDW (11.5-15.5) % Est GFR (CKD-EPI)NonAf 54.2 L (60.0-200.0) Glucose 64 L (70-110) mg/dL POC Glucose (mg/dL) 105 H 118 H (75-99) mg/dL Calcium 8.6 L (8.7-10.3) mg/dL 10/20/20 10/20/20 10/20/20 Range/Units 06:41 06:57 11:17 Hgb 8.6 L (11.4-16.0) gm/dL Hct 30.8 L (34.0-46.0) % MCV 70.0 L (80.0-100.0) fL MCH 19.6 L (25.0-35.0) pg MCHC 28.0 L (31.0-37.0) g/dL RDW 17.4 H (11.5-15.5) % Est GFR (CKD-EPI)NonAf (60.0-200.0) Glucose (70-110) mg/dL POC Glucose (mg/dL) 66 L 150 H (75-99) mg/dL Calcium (8.7-10.3) mg/dL Microbiology - Last 24 Hours (Table) 10/19/20 12:00 Gram Stain - Preliminary Leg - Right Wound Culture - Preliminary Gram Neg Bacilli 10/18/20 23:25 Blood Culture - Preliminary Blood No Growth after 24 hours 10/19/20 02:53 Gram Stain - Preliminary Foot - Left Wound Culture - Preliminary Assessment and Plan Assessment: -Infected ulcer, cellulitis of the surgical stump on the right BKA. 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 Patient may need daptomycin. Infectious disease following. Underwent wound debridement with Dr. Hurd and awaiting for culture finalization -Congestive heart heart failure chronic systolic dysfunction patient is presently euvolemic and patient will be resumed on home regimen IV fluids were discontinued. Patient is on entresto. Patient has an AICD -COPD without any acute exacerbation -Type 2 diabetes mellitus -Coronary artery disease -Seizure disorder -Patient is on anticoagulation with the Eliquis probably for A. fib which will be resumed and continued Plan: Continue current medications. Continue IV antibiotics as preliminary cultures showing gram-negative bacilli and awaiting for culture finalization. Infectious disease following. Case management consulted and currently awaiting PT/OT therapy notes as patient may require subacute rehab upon discharge. Will repeat a.m. labs. Further recommendations to follow.
[2020-10-20] MEDS: IPRATROPIUM-ALBUTEROL 3 ML NEB INHALATION PRN ×2 (14:57→19:23)
[2020-10-20 16:38] LABS: Glucose,Whole Blood 85 mg/dL (75-99)
[2020-10-20 20:22] LABS: Glucose,Whole Blood 121 mg/dL (75-99)
[2020-10-20] MEDS: CEFEPIME 2 GM in SODIUM CHLORIDE 0.9% 100 ML IVPB SCH (21:35)
[2020-10-20] MEDS: ALPRAZolam 0.5 MG TAB PO SCH (21:36)
[2020-10-20] MEDS: INSULIN DETEMIR (LEVEMIR) 100 UNIT/ML SYR SQ SCH (21:36)
[2020-10-21] MEDS: HYDROmorphone 1 MG/ML 1 ML SYRINGE IVP PRN ×2 (00:35→04:38)
--- NOTE | 2020-10-21 01:11 | PN ---
PROGRESS NOTE DATE OF SERVICE: 10/20/2020 REASON FOR FOLLOWUP: 1. Left diabetic foot wound and cellulitis. 2. Right BKA stump wound. INTERVAL HISTORY: The patient is currently afebrile. Still complaining of pain to the lower extremity wound area. No chest pain. No cough. No abdominal pain or diarrhea. PHYSICAL EXAMINATION: Blood pressure is 111/65 with pulse of 72, temperature 98.2. She is 94% on room air. General description is a middle-aged female lying in bed in no distress. RESPIRATORY SYSTEM: Unlabored breathing, clear to auscultation anteriorly. HEART: S1, S2. Regular rate and rhythm. ABDOMEN: Soft, no tenderness. LABS: Hemoglobin 8.6, white count 7.0, creatinine is 1.2. Blood cultures showing a Gram- negative bacilli. DIAGNOSTIC IMPRESSION AND PLAN: Patient with left diabetic foot wound with secondary cellulitis. Culture now showing a Gram-negative. Cefepime has been added. Continue vancomycin adjusting antibiotic further based on culture report. Local care to continue per Surgery. Continue supportive care. MMODL / IJN: [id number] /
[2020-10-21] MEDS: IPRATROPIUM-ALBUTEROL 3 ML NEB INHALATION PRN ×2 (07:18→10:56)
[2020-10-21 07:40] LABS: Glucose,Whole Blood 94 mg/dL (75-99)
[2020-10-21] MEDS: INSULIN ASPART (NovoLOG) 100 UNIT/ML VIAL SQ SCH ×4 (08:33→21:28)
[2020-10-21] MEDS: CEFEPIME 2 GM in SODIUM CHLORIDE 0.9% 100 ML IVPB SCH ×2 (08:39→21:27)
[2020-10-21] MEDS: SPIRONOLACTONE 25 MG TAB PO SCH ×2 (08:40→21:27)
[2020-10-21] MEDS: LACOSAMIDE 50 MG TABLET PO SCH (08:40)
[2020-10-21] MEDS: METOPROLOL SUCCINATE (ER) 25 MG TAB.ER.24H PO SCH (08:40)
[2020-10-21] MEDS: PANTOPRAZOLE 40 MG/10 ML VIAL IV SCH (08:40)
[2020-10-21] MEDS: FUROSEMIDE 40 MG TAB PO SCH ×2 (08:40→21:17)
[2020-10-21] MEDS: ESCITALOPRAM 10 MG TAB PO SCH (08:40)
[2020-10-21] MEDS: GABAPENTIN 300 MG CAP PO SCH ×3 (08:40→21:27)
[2020-10-21] MEDS: APIXABAN 5 MG TAB PO SCH ×2 (08:40→21:27)
[2020-10-21] MEDS: SACUBITRIL/VALSARTAN 24 MG-26 MG TABLET PO SCH ×2 (08:40→21:27)
[2020-10-21 10:02] LABS: African American GFR (CKD) 47.9 (60.0-200.0); Non-African American GFR(CKD) 41.3 (60.0-200.0)
[2020-10-21] MEDS: diphenhydrAMINE 25 MG CAP PO PRN (10:18)
[2020-10-21] MEDS: VANCOMYCIN 1,750 MG in SODIUM CHLORIDE 0.9% 500 ML 500 ML IVPB SCH (10:18)
[2020-10-21 11:51] LABS: Glucose,Whole Blood 118 mg/dL (75-99)
--- NOTE | 2020-10-21 14:17 | P.PN ---
Subjective Progress Note Date: 10/21/20 44-year-old female with history of diabetes heart failure. 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 She presents today with pain and swelling to the left lower extremity. Her son noticed that she has a new developing ulcer on the left foot. Patient presents with worsening pain swelling and redness to the left worsening of her foot and calf. 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 She reports that she is managed previous wounds with Dr. Hurd and he completed her right leg amputation. Patient reports that she's had some shortness of breath and does report a history of CHF. Patient states that she has no acute chest pain. De nies any fevers at home. 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 Deep cultures are being obtained patient has a left stump ulcer infection. Patient does have history of congestive heart failure with EF of around 20-25%, IV fluids were discontinued 10/20/2020 Patient is seen and evaluated in follow-up and is lethargic although arousable. Cardiovascular surgery along with infectious disease following. Patient underwent wound debridement and awaiting for culture finalization. Patient remains on IV antibiotics in the form of cefepime and vancomycin and will continue at this time while awaiting for cultures. Preliminary culture showing gram-negative bacilli. Physical therapy to evaluate the patient as patient has multiple medical comorbidities and difficulty with ambulation and getting around . Patient feels she does not have the proper care at home to manage her needs and is open to the option of possible subacute rehab. Case management consulted and pending at this time. Will await PT/OT therapy notes. Review of systems: Constitutional: No reports of fatigue, fever, or chills, reports left lower extremity pain Cardiovascular: No reports of chest pain or palpitations Respiratory: No reports of shortness of breath or cough GI: No reports of nausea, vomiting, or diarrhea : No reports of dysuria or retention Neurovascular: Reports weakness with no reports of numbness All medications have been reviewed 10/21/2020 Patient is seen in follow-up with no acute overnight issues. Currently awaiting wound culture finalization to determine antibiotic therapy upon discharge. She is currently maintained on cefepime and vancomycin and will continue at this time. Infectious disease is following. Patient requiring subacute rehab upon discharge and is agreeable to [facility] and will require Covid testing along with prior authorization for insurance. Case management and social work following at this time. Patient continues to have left lower extremity swelling and pain. Patient currently denies any chest pain, worsening shortness of breath, or palpitations. Patient is afebrile. No reports of nausea or vomiting and patient is tolerating diet. Objective - Vital Signs Vital signs: Vital Signs Temp 98.2 F 10/21/20 07:00 Pulse 84 10/21/20 07:26 Resp 16 10/21/20 07:00 BP 109/75 10/21/20 07:00 Pulse Ox 99 10/21/20 07:00 Intake & Output 10/20/20 10/21/20 10/21/20 18:59 06:59 18:59 Other: Voiding Method Bedside Commode # Voids 2 1 - Exam GENERAL: The patient is alert and oriented x3, not in any acute distress. Lethargic although arousable. Sitting up in the chair. Well developed, well nourished. HEENT: Pupils are round and equally reacting to light. EOMI. No scleral icterus. No conjunctival pallor. Normocephalic, atraumatic. No pharyngeal erythema. No thyromegaly. CARDIOVASCULAR: S1 and S2 present. No murmurs, rubs, or gallops. PULMONARY: Chest is clear to auscultation, no wheezing or crackles. ABDOMEN: Soft, obese, nontender, nondistended, normoactive bowel sounds. No palpable organomegaly. MUSCULOSKELETAL: Left lower limb edema. Patient has a right leg below-knee stump appears to be infected patient has a ulcer in the stump area which appears to be infected. Lateral lower extremities currently rudy wrapped EXTREMITIES: No cyanosis, clubbing, or pedal edema. NEUROLOGICAL: Gross neurological examination did not reveal any focal deficits. SKIN: No rashes. As mentioned previously - Labs CBC & Chem 7: 10/20/20 06:41 10/21/20 05:25 Labs: Abnormal Lab Results - Last 24 Hours (Table) 10/20/20 10/20/20 10/20/20 Range/Units 06:41 11:17 20:18 Est GFR (CKD-EPI)AfAm (60.0-200.0) Est GFR (CKD-EPI)NonAf 54.2 L (60.0-200.0) Glucose 64 L (70-110) mg/dL POC Glucose (mg/dL) 150 H 121 H (75-99) mg/dL Calcium 8.6 L (8.7-10.3) mg/dL 10/21/20 Range/Units 05:25 Est GFR (CKD-EPI)AfAm 47.9 L (60.0-200.0) Est GFR (CKD-EPI)NonAf 41.3 L (60.0-200.0) Glucose (70-110) mg/dL POC Glucose (mg/dL) (75-99) mg/dL Calcium (8.7-10.3) mg/dL Microbiology - Last 24 Hours (Table) 10/18/20 23:25 Blood Culture - Preliminary Blood No Growth after 48 hours 10/19/20 12:00 Gram Stain - Preliminary Leg - Right Wound Culture - Preliminary Gram Neg Bacilli Assessment and Plan Assessment: -Infected ulcer, cellulitis of the surgical stump on the right BKA. 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 Patient may need daptomycin. Infectious disease following. Underwent wound debridement with Dr. Hurd and awaiting for culture finalization, pulmonary showing gram-negative bacilli currently maintained on cefepime along with vancomycin -Congestive heart heart failure chronic systolic dysfunction patient is presently euvolemic and patient will be resumed on home regimen. Patient is on entresto. Patient has an AICD -COPD without any acute exacerbation -Type 2 diabetes mellitus -Coronary artery disease -Seizure disorder -Patient is on anticoagulation with the Eliquis for A. fib which will be resumed and continued Plan: Continue current medications. Continue IV antibiotics as preliminary cultures showing gram-negative bacilli and awaiting for culture finalization. Continue cefepime and vancomycin. Infectious disease following. Case management and social work following as patient will be going to subacute rehab [facility] once authorization is obtained. Patient will need Covid testing prior to discharge for ECF facility. Will repeat a.m. labs. Further recommendations to follow.
[2020-10-21 16:30] LABS: Glucose,Whole Blood 228 mg/dL (75-99)
[2020-10-21 21:11] LABS: Glucose,Whole Blood 152 mg/dL (75-99)
[2020-10-21] MEDS: INSULIN DETEMIR (LEVEMIR) 100 UNIT/ML SYR SQ SCH (21:27)
[2020-10-21] MEDS: ALPRAZolam 0.5 MG TAB PO SCH (21:28)
[2020-10-21] MEDS ORDERED: VANCOMYCIN TROUGH DUE 1 EACH MISC MISCELLANE ONE (23:00)
[2020-10-22] MEDS: VANCOMYCIN 1,750 MG in SODIUM CHLORIDE 0.9% 500 ML 500 ML IVPB SCH ×2 (00:37→16:25)
--- NOTE | 2020-10-22 01:42 | PN ---
PROGRESS NOTE DATE OF SERVICE: 10/21/2020 REASON FOR FOLLOWUP: Left diabetic foot wound and cellulitis. INTERVAL HISTORY: The patient is currently afebrile. The patient is breathing comfortably. The patient denies any chest pain or cough. No abdominal pain or any worsening pain to the leg wound area. PHYSICAL EXAMINATION: Blood pressure 145/70 with a pulse of 88, temperature 98.4. She is 90% on room air. General description is a middle-aged female lying in bed in no distress. RESPIRATORY SYSTEM: Unlabored breathing, clear to auscultation anteriorly. HEART: S1, S2. Regular rate and rhythm. ABDOMEN: Soft, no tenderness. Patient's left foot and right BKA stump wound currently dressed. As per the nursing staff mentioned no drainage on the dressing. LABS: Wound culture with Gram-negative bacilli. DIAGNOSTIC IMPRESSION AND PLAN: Patient with a left diabetic foot wound status post debridement. Cultures with Gram- negative. ID and sensitivities pending to determine her discharge antibiotics. Continue supportive care. MMODL / IJN: [id number] /
[2020-10-22] MEDS: HYDROmorphone 1 MG/ML 1 ML SYRINGE IVP PRN ×3 (04:11→12:44)
[2020-10-22 07:05] LABS: Glucose,Whole Blood 131 mg/dL (75-99)
[2020-10-22] MEDS: CEFEPIME 2 GM in SODIUM CHLORIDE 0.9% 100 ML IVPB SCH (08:51)
[2020-10-22] MEDS: SACUBITRIL/VALSARTAN 24 MG-26 MG TABLET PO SCH (08:52)
[2020-10-22] MEDS: INSULIN ASPART (NovoLOG) 100 UNIT/ML VIAL SQ SCH ×3 (08:52→16:46)
[2020-10-22] MEDS: PANTOPRAZOLE 40 MG/10 ML VIAL IV SCH (08:52)
[2020-10-22] MEDS: FUROSEMIDE 40 MG TAB PO SCH (08:53)
[2020-10-22] MEDS: LACOSAMIDE 50 MG TABLET PO SCH (08:53)
[2020-10-22] MEDS: GABAPENTIN 300 MG CAP PO SCH ×2 (08:53→16:25)
[2020-10-22] MEDS: SPIRONOLACTONE 25 MG TAB PO SCH (08:53)
[2020-10-22] MEDS: APIXABAN 5 MG TAB PO SCH (08:53)
[2020-10-22] MEDS: METOPROLOL SUCCINATE (ER) 25 MG TAB.ER.24H PO SCH (08:53)
[2020-10-22] MEDS: ESCITALOPRAM 10 MG TAB PO SCH (08:53)
[2020-10-22] MEDS: IPRATROPIUM-ALBUTEROL 3 ML NEB INHALATION PRN ×2 (09:23→12:43)
[2020-10-22 09:46] LABS: Non-African American GFR(CKD) 49.2 (60.0-200.0)
[2020-10-22 09:53] VITALS: RESP 16
--- NOTE | 2020-10-22 10:09 | PN ---
PROGRESS NOTE Flaca is known to me from the past. Patient had a right BK amputation in the past. She developed ulcer and chronic wound below the knee stump due to the fall and patient also had a transmetatarsal amputation of the left foot in the past. She had ulcer on the plantar aspect. Patient came with swelling, redness of the stump. We did the debridement on the right below-knee stump. Patient on IV antibiotic. We have been changing daily with local wound care, using Medihoney gel. Patient is going to half-way and we will follow in the [facility]ound [facility] at [facility]. She wants to come to the Wound Clinic at [facility] and change dressing daily. MMODL / IJN: [id number] /
[2020-10-22 11:31] LABS: Glucose,Whole Blood 154 mg/dL (75-99)
[2020-10-22 13:22] VITALS: BMI 47.0
--- NOTE | 2020-10-22 14:44 | P.DS ---
Providers Date of admission: 10/20/20 10:42 Expected date of discharge: 10/22/20 Attending physician: Brittany Villafuerte Consults: 10/19/20 02:23 Consult Physician Stat Consulting Provider: Eleazar Hurd Consult Reason/Comments: left foot cellulitis, gangrene Do you want consulting provider notified?: Yes 10/19/20 11:25 Consult Physician Routine Consulting Provider: Casi Blake Consult Reason/Comments: Cellulitis Do you want consulting provider notified?: Yes Primary care physician: Stated None Hospital Course: Final diagnosis -Infected ulcer, cellulitis of the surgical stump on the right BKA. 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 fib which will be resumed and continued Discharge disposition Patient is being discharged in a stable condition with guarded prognosis to [facility] for continued PT/OT therapy along with IV antibiotic therapy for an additional 2 weeks.. She will continue on IV antibiotics in the form of cefepime 2 g twice daily for the next 2 weeks until November 05 after 2 doses of been given. Total time taken is greater than 35 minutes. History of present illness This is a 44-year-old female who was recently admitted with right below-knee amputation and increased pain and swelling to the stump along with left lower extremity pain and swelling and was being closely monitored. She was diuresed with IV Lasix and will continue on her oral Lasix 40 mg twice daily. Infectious disease also following and patient was initiated on IV antibiotics. Cultures finalized showing Enterobacter cloacae and will continue on IV antibiotics in the form of cefepime 2 g twice daily for the next 14 days and then may discontinue. Patient did receive a midline. Patient will follow-up with wound care in the outpatient setting at the clinic for dressing changes and treatment. Wound care to the right below-knee amputation apply sterile honey to the right stump and left foot and cover with ABDs and wrapped with Kerlix and Odilon wrap. Left lower extremity daily changes with Silvadene to the left lower leg and wrapped with Kerlix and Odilon wrap. Patient to continue to elevate lower extremities while at rest. patient to continue to monitor blood sugars before meals at bedtime and treat accordingly with sliding scale. Patient also states that she does not have adequate care at home and has been having difficulty with getting up and around and would like continued PT/OT therapy. She will be going to [facility] today for continued PT/OT therapy along with IV antibiotic therapy. Currently no reports of chest pain, shortness of breath, or palpitations. Patient is afebrile. No reports of nausea or vomiting and patient is tolerating diet. Patient will be going to [facility] today. On exam vital signs are stable. Temp is 97.4F, pulse is 77, respirations are 16, blood pressure is 119/73, oxygen saturation is 95% on room air. Cardio S1, S2 are muffled. Respiratory system shows diminished breath sounds at the bases with no wheezing or rhonchi noted. Abdomen is soft and obese, and nontender. Nervous system shows diffuse weakness. Please refer to medication reconciliation sheet for a list of medications. Patient Condition at Discharge: Stable Plan - Discharge Summary Discharge Rx Participant: Yes New Discharge Prescriptions: New diphenhydrAMINE [Benadryl] 25 mg PO BID PRN cap PRN Reason: Itching Cefepime [Maxipime] 2 gm IVPB Q12HR 14 Days #28 vial Ibuprofen [Motrin] 400 mg PO Q6HR PRN tab PRN Reason: Mild Pain Or Fever > 100.5 HYDROcodone/APAP 5-325MG [[place] 5-325] 1 tab PO Q4HR PRN 3 Days #18 tab PRN Reason: Pain INSULIN ASPART (NovoLOG) [NovoLOG (formulary)] 0 unit SQ ACHS vial SILVER sulfADIAZINE CREAM [Silvadene Cream] 1 applic TOPICAL DAILY applic Acetaminophen Tab [Tylenol] 650 mg PO Q6HR PRN tab PRN Reason: Mild Pain Or Fever > 100.5 Continue Insulin Glargine [Lantus] 35 unit SQ HS Spironolactone [Aldactone] 25 mg PO BID Apixaban [Eliquis] 5 mg PO BID Lacosamide [Vimpat] 50 mg PO DAILY Ipratropium-Albuterol Nebulize [Duoneb 0.5 mg-3 mg/3 ml Soln] 3 ml INHALATION RT-QID PRN PRN Reason: Shortness Of Breath Sacubitril/Valsartan [Entresto 24 mg-26 mg Tablet] 1 tab PO BID Omeprazole 20 mg PO DAILY PRN PRN Reason: Heartburn Metoprolol Succinate [Toprol XL] 25 mg PO DAILY Furosemide [Lasix] 40 mg PO BID Escitalopram [Lexapro] 10 mg PO DAILY ALPRAZolam [Xanax] 0.5 mg PO HS #6 tab Changed Gabapentin [Neurontin] 600 mg PO TID #10 tab Discontinued INSULIN ASPART (NovoLOG) [NovoLOG (formulary)] See Protocol SQ AC-TID Discharge Medication List Insulin Glargine [Lantus] 35 unit SQ HS 04/30/19 [History] Spironolactone [Aldactone] 25 mg PO BID 07/26/19 [History] Apixaban [Eliquis] 5 mg PO BID 07/27/19 [History] Ipratropium-Albuterol Nebulize [Duoneb 0.5 mg-3 mg/3 ml Soln] 3 ml INHALATION RT-QID PRN 05/21/20 [History] Lacosamide [Vimpat] 50 mg PO DAILY 05/21/20 [History] Escitalopram [Lexapro] 10 mg PO DAILY 10/18/20 [History] Furosemide [Lasix] 40 mg PO BID 10/18/20 [History] Metoprolol Succinate [Toprol XL] 25 mg PO DAILY 10/18/20 [History] Omeprazole 20 mg PO DAILY PRN 10/18/20 [History] Sacubitril/Valsartan [Entresto 24 mg-26 mg Tablet] 1 tab PO BID 10/18/20 [History] ALPRAZolam [Xanax] 0.5 mg PO HS #6 tab 10/22/20 [Rx] Acetaminophen Tab [Tylenol] 650 mg PO Q6HR PRN tab 10/22/20 [Rx] Cefepime [Maxipime] 2 gm IVPB Q12HR 14 Days #28 vial 10/22/20 [Rx] Gabapentin [Neurontin] 600 mg PO TID #10 tab 10/22/20 [Rx] HYDROcodone/APAP 5-325MG [[place] 5-325] 1 tab PO Q4HR PRN 3 Days #18 tab 10/22/20 [Rx] INSULIN ASPART (NovoLOG) [NovoLOG (formulary)] 0 unit SQ ACHS vial 11/25/20 [Rx] Ibuprofen [Motrin] 400 mg PO Q6HR PRN tab 10/22/20 [Rx] SILVER sulfADIAZINE CREAM [Silvadene Cream] 1 applic TOPICAL DAILY applic 10/22/20 [Rx] diphenhydrAMINE [Benadryl] 25 mg PO BID PRN cap 10/22/20 [Rx] Follow up Appointment(s)/Referral(s): Lencho Graham, [NON-STAFF] - As Needed None,Stated [Primary Care Provider] - 1-2 days Discharge Disposition: TRANSFER TO SNF/ECF
[2020-10-22 15:04] VITALS: BP 121/76; PULSE 78; TEMP 98.3
--- NOTE | 2020-10-22 16:33 | PN ---
PROGRESS NOTE DATE OF SERVICE: 10/22/2020 REASON FOR FOLLOWUP: Diabetic foot wound with secondary cellulitis. INTERVAL HISTORY: The patient is currently afebrile. The patient is breathing comfortably. No chest pain or cough. Still complaining of pain to the leg wound area. No vomiting or any diarrhea. PHYSICAL EXAMINATION: Blood pressure is 119/73 with a pulse of 77, temperature 97.4. She is 95% on room air. General description is a middle-aged female lying in bed in no distress. RESPIRATORY SYSTEM: Unlabored breathing. Clear to auscultation. LEGS: Wounds are currently dressed up. Discussed with surgeon. The wounds are not deep or tracking down to the bone. LABS: Wound culture has been finalized with enterobacter. DIAGNOSTIC IMPRESSION AND PLAN: Patient with a diabetic foot wound with secondary cellulitis. Culture positive for enterobacter. Plan is for cefepime 2 grams q.12 hours for a total of 2 weeks. Local care per Surgery. [facility] up [facility]. Continue supportive care. MMODL / IJN: [id number] /
[2020-10-22 16:37] LABS: Glucose,Whole Blood 170 mg/dL (75-99)
[2020-10-23] MEDS ORDERED: PANTOPRAZOLE 40 MG TABLET PO SCH (07:30)
== END 2020-10-22 19:38 | DRG 464 ==
LOC: EC 21:50 → 4SSUR 10-19 02:23 → OBSVTOIN 10-20 10:42
PROVIDERS: ADMIT Hospitalist; ATTEND Hospitalist
PROC: 0JBN0ZZ Excision of Right Lower Leg Subcutaneous Tissue and Fascia, Open Approach (ICD-10-PCS; 2020-10-19)
PROC: 05HB33Z Insertion of Infusion Device into Right Basilic Vein, Percutaneous Approach (ICD-10-PCS; principal; 2020-10-20 10:20)
PROC: 05HD33Z Insertion of Infusion Device into Right Cephalic Vein, Percutaneous Approach (ICD-10-PCS; 2020-10-22)
DX: T87.43 Infection of amputation stump, right lower extremity (principal); I50.22 Chronic systolic (congestive) heart failure; L03.116 Cellulitis of left lower limb; L03.115 Cellulitis of right lower limb; E11.52 Type 2 diabetes mellitus with diabetic peripheral angiopathy with gangrene; E11.628 Type 2 diabetes mellitus with other skin complications; Z20.828 Contact with and (suspected) exposure to other viral communicable diseases; G40.909 Epilepsy, unspecified, not intractable, without status epilepticus; I11.0 Hypertensive heart disease with heart failure; J44.9 Chronic obstructive pulmonary disease, unspecified; Z87.891 Personal history of nicotine dependence; Z84.1 Family history of disorders of kidney and ureter; I25.10 Atherosclerotic heart disease of native coronary artery without angina pectoris; L97.522 Non-pressure chronic ulcer of other part of left foot with fat layer exposed; E11.40 Type 2 diabetes mellitus with diabetic neuropathy, unspecified; I48.91 Unspecified atrial fibrillation; W19.XXXA Unspecified fall, initial encounter; E11.621 Type 2 diabetes mellitus with foot ulcer; Z89.511 Acquired absence of right leg below knee; Z79.01 Long term (current) use of anticoagulants; Z79.4 Long term (current) use of insulin; Z79.899 Other long term (current) drug therapy; Z88.0 Allergy status to penicillin; Z88.8 Allergy status to other drugs, medicaments and biological substances; I25.2 Old myocardial infarction; Z86.73 Personal history of transient ischemic attack (TIA), and cerebral infarction without residual deficits; Z87.01 Personal history of pneumonia (recurrent); Z95.810 Presence of automatic (implantable) cardiac defibrillator; Z98.890 Other specified postprocedural states; Z89.412 Acquired absence of left great toe; Z90.89 Acquired absence of other organs; Z82.49 Family history of ischemic heart disease and other diseases of the circulatory system; Z86.14 Personal history of Methicillin resistant Staphylococcus aureus infection; Z99.3 Dependence on wheelchair; Z83.2 Family history of diseases of the blood and blood-forming organs and certain disorders involving the immune mechanism; Y92.009 Unspecified place in unspecified non-institutional (private) residence as the place of occurrence of the external cause
CPT/HCPCS: 36410; 36415; 71046; 76937; 80048; 80053; 80202; 82565; 83605; 83735; 83880; 84484; 85025; 85027; 85610; 85730; 87040; 87070; 87077; 87186; 87205; 87635; 93005; 94640; 96365; 96366; 96367; 96375; 96376; 99285

== ENCOUNTER 2020-11-15 16:01 | Inpatient (IN) | payer MEDICARE, OTHER ==
[2020-11-15] MEDS ORDERED: SODIUM CHLORIDE 0.9% 1,000 ML IV STA (16:29)
[2020-11-15] MEDS ORDERED: PANTOPRAZOLE 40 MG/10 ML VIAL IVP STA (16:29)
--- NOTE | 2020-11-15 16:29 | ED ---
General Adult HPI - General Chief complaint: Nausea/Vomiting/Diarrhea Stated complaint: NAUSEA,VOMITTING Time Seen by Provider: 11/15/20 16:05 Source: patient, EMS Mode of arrival: EMS Limitations: physical limitation - History of Present Illness Initial comments: 45-year-old female with history of heart failure, diabetes presenting to emergency Department with the chief complaint of cough, shortness of breath, n/v/diarrhea. Patient reports symptoms ongoing for approximately one week. Patient states she has not been eating much food or drinking, and has not taken her insulin because she has not been able to keep anything down. Patient reports developing a nonproductive cough. Does report some chills but denies any fevers at home. She does report some dyspnea on exertion with mild, nonradiating chest pain. Denies any abdominal pain and back pain. Denies history of smoking, COPD or asthma. Denies urinary or vaginal symptoms. Denies hematuria, hematochezia or melena. - Related Data Home Medications Medication Instructions Recorded Confirmed Insulin Glargine [Lantus] 25 unit SQ HS 04/30/19 11/15/20 Spironolactone [Aldactone] 25 mg PO DAILY 07/26/19 11/15/20 Apixaban [Eliquis] 5 mg PO BID 07/27/19 11/15/20 Ipratropium-Albuterol Nebulize 3 ml INHALATION RT-QID PRN 05/21/20 11/15/20 [Duoneb 0.5 mg-3 mg/3 ml Soln] Lacosamide [Vimpat] 50 mg PO DAILY 05/21/20 11/15/20 Escitalopram [Lexapro] 10 mg PO DAILY 10/18/20 11/15/20 Furosemide [Lasix] 40 mg PO BID 10/18/20 11/15/20 Metoprolol Succinate [Toprol XL] 25 mg PO DAILY 10/18/20 11/15/20 Omeprazole 20 mg PO DAILY PRN 10/18/20 11/15/20 Sacubitril/Valsartan [Entresto 24 1 tab PO BID 10/18/20 11/15/20 mg-26 mg Tablet] INSULIN ASPART (NovoLOG) [NovoLOG See Protocol SQ ACHS 11/15/20 11/15/20 (formulary)] Previous Rx's Medication Instructions Recorded ALPRAZolam [Xanax] 0.5 mg PO HS #6 tab 10/22/20 Acetaminophen Tab [Tylenol] 650 mg PO Q6HR PRN tab 10/22/20 Gabapentin [Neurontin] 600 mg PO TID #10 tab 10/22/20 Ibuprofen [Motrin] 400 mg PO Q6HR PRN tab 10/22/20 diphenhydrAMINE [Benadryl] 25 mg PO BID PRN cap 10/22/20 Allergies Allergy/AdvReac Type Severity Reaction Status Date / Time Penicillins Allergy Rash/Hives Verified 11/15/20 19:58 ondansetron [From Zofran] AdvReac Nausea & Verified 11/15/20 19:58 Vomiting Review of Systems ROS Statement: Those systems with pertinent positive or pertinent negative responses have been documented in the HPI. ROS Other: All systems not noted in ROS Statement are negative. Past Medical History Past Medical History: Asthma, Heart Failure, COPD, CVA/TIA, Diabetes Mellitus, Hypertension, Myocardial Infarction ([place]), Pneumonia, Seizure Disorder, Seizure Disorder Additional Past Medical History / Comment(s): uses a cane. Last seizure unknown Last Myocardial Infarction Date:: 06/2018 History of Any Multi-Drug Resistant Organisms: MRSA, VRE, VRE Date of last positivie culture/infection: 2016 MDRO Source:: bilat feet Past Surgical History: Adenoidectomy, AICD, Section, Heart Catheterization, Orthopedic Surgery, Pacemaker, Tonsillectomy Additional Past Surgical History / Comment(s): AICD - [employer]. has pacemaker defibrillator, right all toe amputated 04/2016, LT GREAT TOE then left foot partial amputation Past Anesthesia/Blood Transfusion Reactions: Postoperative Nausea & Vomiting (PONV) Type of Cardiac Device: Biventricular Pacemaker, Permanent Pacemaker, AICD Device Placement Date:: 2011 Past Psychological History: Bipolar Smoking Status: Former smoker Past Alcohol Use History: None Reported Past Drug Use History: Marijuana - Past Family History Mother Family Medical History: Deep Vein Thrombosis (DVT) Additional Family Medical History / Comment(s): Some type of heart problems, kidney failure. Father History Unknown: Yes Family Medical History: Unable to Obtain Additional Family Medical History / Comment(s): Patient denies knowing any medical history on her father. General Exam Limitations: physical limitation General appearance: alert, in no apparent distress, obese Head exam: Present: atraumatic, normocephalic, normal inspection Eye exam: Present: normal appearance, PERRL, EOMI Pupils: Present: normal accommodation ENT exam: Present: normal exam, normal oropharynx, mucous membranes moist, TM's normal bilaterally, normal external ear exam Neck exam: Present: normal inspection, full ROM. Absent: tenderness Respiratory exam: Present: normal lung sounds bilaterally. Absent: respiratory distress, wheezes, rales, rhonchi, stridor Cardiovascular Exam: Present: regular rate, normal rhythm, normal heart sounds. Absent: systolic murmur, diastolic murmur GI/Abdominal exam: Present: soft. Absent: distended, tenderness, guarding, rebound, rigid Extremities exam: Present: normal inspection (BKA right lower extremity), full R OM, normal capillary refill, pedal edema (+1 pitting edema left lower external.), other (Palpable pulses left lower extremity). Absent: tenderness, joint swelling, calf tenderness Back exam: Present: normal inspection, full ROM. Absent: tenderness, CVA tenderness (R), CVA tenderness (L) Neurological exam: Present: alert, oriented X3 Psychiatric exam: Present: normal affect, normal mood Skin exam: Present: warm, dry, intact, normal color Course Vital Signs 11/15/20 11/15/20 11/15/20 16:09 17:56 19:00 Temperature 98.5 F Pulse Rate 105 H 61 72 Respiratory 18 18 18 Rate Blood Pressure 128/68 119/84 121/65 O2 Sat by Pulse 94 L 99 97 Oximetry 11/15/20 20:54 Temperature 98.7 F Pulse Rate 98 Respiratory 17 Rate Blood Pressure 121/65 O2 Sat by Pulse 98 Oximetry Medical Decision Making - Medical Decision Making 45-year-old female with complicated past medical history presenting to the emergency department with a chief complaint of shortness of breath, nausea, vomiting, diarrhea. Symptoms have been ongoing for the past one week. Patient is not in any respiratory distress, however she is 94% on room air. This was improved to 99% with nasal cannula 2 L. she did have anemia although that appears to be her baseline. D-dimer elevated at 1.08. She is negative for covid And influenza. BNP of 4500 which is increased from her most recent lab oratory work at 1500. Patient will be admitted for further medical management of suspected heart failure. Case was discussed with Admitting is Dr Hill - Lab Data Result diagrams: 11/15/20 16:35 11/15/20 16:35 Lab Results 11/15/20 11/15/20 11/15/20 Range/Units 16:35 16:35 16:35 WBC 7.9 (3.8-10.6) k/uL RBC 4.61 (3.80-5.40) m/uL Hgb 8.6 L (11.4-16.0) gm/dL Hct 31.2 L (34.0-46.0) % MCV 67.7 L (80.0-100.0) fL MCH 18.7 L (25.0-35.0) pg MCHC 27.6 L (31.0-37.0) g/dL RDW 19.1 H (11.5-15.5) % Plt Count 458 H D (150-450) k/uL MPV 7.0 Neutrophils % 74 % Lymphocytes % 13 % Monocytes % 8 % Eosinophils % 3 % Basophils % 1 % Neutrophils # 5.8 (1.3-7.7) k/uL Lymphocytes # 1.1 (1.0-4.8) k/uL Monocytes # 0.6 (0-1.0) k/uL Eosinophils # 0.2 (0-0.7) k/uL Basophils # 0.0 (0-0.2) k/uL Hypochromasia Marked Poikilocytosis Slight Anisocytosis Slight Microcytosis Marked D-Dimer (<0.60) mg/L FEU Sodium 135 L (137-145) mmol/L Potassium 4.6 (3.5-5.1) mmol/L Chloride 103 (98-107) mmol/L Carbon Dioxide 21 L (22-30) mmol/L Anion Gap 11 mmol/L BUN 14 (7-17) mg/dL Creatinine 1.04 (0.52-1.04) mg/dL Est GFR (CKD-EPI)AfAm 74 (>60 ml/min/1.73 sqM) Est GFR (CKD-EPI)NonAf 64 (>60 ml/min/1.73 sqM) Glucose 173 H (74-99) mg/dL Calcium 9.2 (8.4-10.2) mg/dL Total Bilirubin 1.0 (0.2-1.3) mg/dL AST 23 (14-36) U/L ALT 13 (4-34) U/L Alkaline Phosphatase 87 (38-126) U/L Troponin I <0.012 (0.000-0.034) ng/mL NT-Pro-B Natriuret Pep pg/mL Total Protein 7.4 (6.3-8.2) g/dL Albumin 3.9 (3.5-5.0) g/dL Amylase <30 L (30-110) U/L Lipase 53 (23-300) U/L Urine Color Urine Appearance (Clear) Urine pH (5.0-8.0) Ur Specific [place] (1.001-1.035) Urine Protein (Negative) Urine Glucose (UA) (Negative) Urine Ketones (Negative) Urine Blood (Negative) Urine Nitrite (Negative) Urine Bilirubin (Negative) Urine Urobilinogen (<2.0) mg/dL Ur Leukocyte Esterase (Negative) Urine WBC (0-5) /hpf Ur Squamous Epith Cells (0-4) /hpf Acetone, Qual Negative (Negative) Influenza Type A (PCR) (Not Detectd) Influenza Type B (PCR) (Not Detectd) RSV (PCR) (Not Detectd) SARS-CoV-2 (PCR) (Not Detectd) 11/15/20 11/15/20 11/15/20 Range/Units 16:35 16:35 16:57 WBC (3.8-10.6) k/uL RBC (3.80-5.40) m/uL Hgb (11.4-16.0) gm/dL Hct (34.0-46.0) % MCV (80.0-100.0) fL MCH (25.0-35.0) pg MCHC (31.0-37.0) g/dL RDW (11.5-15.5) % Plt Count (150-450) k/uL MPV Neutrophils % % Lymphocytes % % Monocytes % % Eosinophils % % Basophils % % Neutrophils # (1.3-7.7) k/uL Lymphocytes # (1.0-4.8) k/uL Monocytes # (0-1.0) k/uL Eosinophils # (0-0.7) k/uL Basophils # (0-0.2) k/uL Hypochromasia Poikilocytosis Anisocytosis Microcytosis D-Dimer 1.08 H (<0.60) mg/L FEU Sodium (137-145) mmol/L Potassium (3.5-5.1) mmol/L Chloride (98-107) mmol/L Carbon Dioxide (22-30) mmol/L Anion Gap mmol/L BUN (7-17) mg/dL Creatinine (0.52-1.04) mg/dL Est GFR (CKD-EPI)AfAm (>60 ml/min/1.73 sqM) Est GFR (CKD-EPI)NonAf (>60 ml/min/1.73 sqM) Glucose (74-99) mg/dL Calcium (8.4-10.2) mg/dL Total Bilirubin (0.2-1.3) mg/dL AST (14-36) U/L ALT (4-34) U/L Alkaline Phosphatase (38-126) U/L Troponin I (0.000-0.034) ng/mL NT-Pro-B Natriuret Pep 4580 pg/mL Total Protein (6.3-8.2) g/dL Albumin (3.5-5.0) g/dL Amylase (30-110) U/L Lipase (23-300) U/L Urine Color Urine Appearance (Clear) Urine pH (5.0-8.0) Ur Specific [place] (1.001-1.035) Urine Protein (Negative) Urine Glucose (UA) (Negative) Urine Ketones (Negative) Urine Blood (Negative) Urine Nitrite (Negative) Urine Bilirubin (Negative) Urine Urobilinogen (<2.0) mg/dL Ur Leukocyte Esterase (Negative) Urine WBC (0-5) /hpf Ur Squamous Epith Cells (0-4) /hpf Acetone, Qual (Negative) Influenza Type A (PCR) Not Detected (Not Detectd) Influenza Type B (PCR) Not Detected (Not Detectd) RSV (PCR) Not Detected (Not Detectd) SARS-CoV-2 (PCR) Not Detected (Not Detectd) 11/15/20 Range/Units 18:15 WBC (3.8-10.6) k/uL RBC (3.80-5.40) m/uL Hgb (11.4-16.0) gm/dL Hct (34.0-46.0) % MCV (80.0-100.0) fL MCH (25.0-35.0) pg MCHC (31.0-37.0) g/dL RDW (11.5-15.5) % Plt Count (150-450) k/uL MPV Neutrophils % % Lymphocytes % % Monocytes % % Eosinophils % % Basophils % % Neutrophils # (1.3-7.7) k/uL Lymphocytes # (1.0-4.8) k/uL Monocytes # (0-1.0) k/uL Eosinophils # (0-0.7) k/uL Basophils # (0-0.2) k/uL Hypochromasia Poikilocytosis Anisocytosis Microcytosis D-Dimer (<0.60) mg/L FEU Sodium (137-145) mmol/L Potassium (3.5-5.1) mmol/L Chloride (98-107) mmol/L Carbon Dioxide (22-30) mmol/L Anion Gap mmol/L BUN (7-17) mg/dL Creatinine (0.52-1.04) mg/dL Est GFR (CKD-EPI)AfAm (>60 ml/min/1.73 sqM) Est GFR (CKD-EPI)NonAf (>60 ml/min/1.73 sqM) Glucose (74-99) mg/dL Calcium (8.4-10.2) mg/dL Total Bilirubin (0.2-1.3) mg/dL AST (14-36) U/L ALT (4-34) U/L Alkaline Phosphatase (38-126) U/L Troponin I (0.000-0.034) ng/mL NT-Pro-B Natriuret Pep pg/mL Total Protein (6.3-8.2) g/dL Albumin (3.5-5.0) g/dL Amylase (30-110) U/L Lipase (23-300) U/L Urine Color Light Yellow Urine Appearance Clear (Clear) Urine pH 5.5 (5.0-8.0) Ur Specific [place] 1.007 (1.001-1.035) Urine Protein 1+ H (Negative) Urine Glucose (UA) Negative (Negative) Urine Ketones Negative (Negative) Urine Blood Negative (Negative) Urine Nitrite Negative (Negative) Urine Bilirubin Negative (Negative) Urine Urobilinogen <2.0 (<2.0) mg/dL Ur Leukocyte Esterase Negative (Negative) Urine WBC 2 (0-5) /hpf Ur Squamous Epith Cells 1 (0-4) /hpf Acetone, Qual (Negative) Influenza Type A (PCR) (Not Detectd) Influenza Type B (PCR) (Not Detectd) RSV (PCR) (Not Detectd) SARS-CoV-2 (PCR) (Not Detectd) Disposition Clinical Impression: Shortness of breath, Anemia Disposition: ADMITTED IP TO THIS [facility] Condition: Stable Is patient prescribed a controlled substance at d/c from ED?: No Time of Disposition: 19:27
[2020-11-15 16:58] LABS: ALT 13 U/L (4-34); AST 23 U/L (14-36); African American GFR (CKD) 74 (>60 ml/min/1.73 sqM); Albumin 3.9 g/dL (3.5-5.0); Alkaline Phosphatase 87 U/L (38-126); Amylase <30 U/L (30-110); Anion Gap 11 mmol/L; Blood Urea Nitrogen 14 mg/dL (7-17); Calcium 9.2 mg/dL (8.4-10.2); Carbon Dioxide 21 mmol/L (22-30); Chloride 103 mmol/L (98-107); Glucose 173 mg/dL (74-99); Lipase 53 U/L (23-300); Non-African American GFR(CKD) 64 (>60 ml/min/1.73 sqM); Potassium 4.6 mmol/L (3.5-5.1); Sodium 135 mmol/L (137-145); Total Protein 7.4 g/dL (6.3-8.2)
[2020-11-15 17:03] LABS: Anisocytosis Slight; Basophils % (A) 1 %; Eosinophils # (A) 0.2 k/uL (0-0.7); Eosinophils % (A) 3 %; HCT 31.2 % (34.0-46.0); HGB 8.6 gm/dL (11.4-16.0); Hypochromasia Marked; Lymphocytes # (A) 1.1 k/uL (1.0-4.8); Lymphocytes % (A) 13 %; MCH 18.7 pg (25.0-35.0); MCHC 27.6 g/dL (31.0-37.0); MCV 67.7 fL (80.0-100.0); Microcytosis Marked; Monocytes # (A) 0.6 k/uL (0-1.0); Monocytes % (A) 8 %; Neutrophils # (A) 5.8 k/uL (1.3-7.7); Neutrophils % (A) 74 %; Poikilocytosis Slight; RBC 4.61 m/uL (3.80-5.40); RDW 19.1 % (11.5-15.5); WBC 7.9 k/uL (3.8-10.6)
[2020-11-15 17:17] LABS: Platelet Count 458 k/uL (150-450)
--- NOTE | 2020-11-15 17:19 | XR ---
EXAMINATION TYPE: XR chest 2V DATE OF EXAM: 11/15/2020 COMPARISON: 10/19/2020 HISTORY: Cough TECHNIQUE: 2 views FINDINGS: Heart is enlarged. No gross heart failure. There is coarsening of the interstitial markings . There is left axillary pacemaker. There is no pleural effusion. IMPRESSION: Cardiomegaly unchanged. No definite heart failure.
[2020-11-15] MEDS ORDERED: METOCLOPRAMIDE 5 MG/ML 2 ML VIAL IVP STA (17:30)
[2020-11-15] MEDS ORDERED: diphenhydrAMINE 50 MG/ML 1 ML VIAL IVP STA (17:30)
--- NOTE | 2020-11-15 18:55 | CT ---
EXAMINATION TYPE: CT chest angio for PE DATE OF EXAM: 11/15/2020 COMPARISON: 11/03/2017 HISTORY: Elevated d-dimer and cough. CT DLP: 584.3 mGycm Automated exposure control for dose reduction was used. CONTRAST: Performed with IV Contrast, patient injected with 66ml mL of Isovue 370. There are 3-D post processed images. The lungs are clear of consolidation. There is mild atelectasis in the right middle lobe and lingula left upper lobe. Heart is enlarged. There is no pericardial effusion. Upper abdominal soft tissues ar e intact. There are no hilar masses. There are small bronchial lymph nodes measuring up to 1 cm. There is no me diastinal adenopathy. Thoracic aorta is intact. There is no aneurysm or dissection. There is normal contrast opacification of the pulmonary arteries. There are no filling defects. The bony thorax is intact. There is no thoracic compression fracture. The ribs appear intact. IMPRESSION: No evidence of pulmonary embolism. Mild subsegmental atelectasis in the right middle lobe and lingula left upper lobe. This appears incr eased on the left side compared to old exam and unchanged on the right side. Cardiomegaly.
[2020-11-15 19:07] LABS: Appearance,Urine Clear (Clear); Bilirubin,Urine Negative (Negative); Blood,Urine Negative (Negative); Color,Urine Light Yellow; Glucose,Urine (UA) Negative (Negative); Ketones,Urine Negative (Negative); Leukocyte Esterase,Urine Negative (Negative); Nitrite,Urine Negative (Negative); PH, Urine 5.5 (5.0-8.0); Protein,Urine 1+ (Negative); Specific Gravity,Urine 1.007 (1.001-1.035); Squamous Epithelial Cell,Urine 1 /hpf (0-4); Urobilinogen,Urine <2.0 mg/dL (<2.0); WBC,Urine 2 /hpf (0-5)
[2020-11-15] MEDS ORDERED: FUROSEMIDE 10 MG/ML 4 ML VIAL IV STA (19:59)
[2020-11-15] MEDS ORDERED: SODIUM CHLORIDE 0.9% 1,000 ML IV SCH (20:00)
--- NOTE | 2020-11-15 22:02 | P.HPIM ---
History of Present Illness H&P Date: 11/15/20 Chief Complaint: Progressive shortness of breath This is a 45-year-old morbidly obese female with the history of the nonischemic cardiomyopathy with baseline ejection fraction of 40%, patient has been noting some increase in lower extremity swelling also increasing shortness of breath, decided to come into the hospital, ongoing cough is present her appetite has been poor, she also have mild substernal chest heaviness, however denies any back pain, denies any night sweats fever or chills, denies any history of smoking and nicotine use, she takes oral direct anticoagulants as well as Lantus as needed bronchodilator, prior history is significant for hypertension hyperte nsive cardiovascular disease seizure disorder, history of the MRSA and status post right sided toe amputation back in April 2016, she is status post to the AICD with biventricular pacing and permanent pacemaker, chest x-ray significant for cardiomegaly interstitial edema, computed tomography scan is negative for pulmonary embolism some atelectasis has been noted, she is negative for influenza A and B as well as [place], urine unremarkable, BNP is over 4500, previous noted to be around 1500, troponin normal, microcytic anemia has been noted with hemoglobin of 8.6 and MCV of 67, Review of Systems All systems: negative Past Medical History Past Medical History: Asthma, Heart Failure, COPD, CVA/TIA, Diabetes Mellitus, Hypertension, Myocardial Infarction ([place]), Pneumonia, Seizure Disorder, Seizure Disorder Additional Past Medical History / Comment(s): uses a cane. Last seizure unknown Last Myocardial Infarction Date:: 06/2018 History of Any Multi-Drug Resistant Organisms: MRSA, VRE, VRE Date of last positivie culture/infection: 2016 MDRO Source:: bilat feet Past Surgical History: Adenoidectomy, AICD, Section, Heart Catheterization, Orthopedic Surgery, Pacemaker, Tonsillectomy Additional Past Surgical History / Comment(s): AICD - [employer]. has pacemaker defibrillator, right all toe amputated 04/2016, LT GREAT TOE then left foot partial amputation Past Anesthesia/Blood Transfusion Reactions: Postoperative Nausea & Vomiting (PONV) Type of Cardiac Device: Biventricular Pacemaker, Permanent Pacemaker, AICD Device Placement Date:: 2011 Past Psychological History: Bipolar Smoking Status: Former smoker Past Alcohol Use History: None Reported Past Drug Use History: Marijuana - Past Family History Mother Family Medical History: Deep Vein Thrombosis (DVT) Additional Family Medical History / Comment(s): Some type of heart problems, kidney failure. Father History Unknown: Yes Family Medical History: Unable to Obtain Additional Family Medical History / Comment(s): Patient denies knowing any medical history on her father. Medications and Allergies Home Medications Medication Instructions Recorded Confirmed Type Insulin Glargine [Lantus] 25 unit SQ HS 04/30/19 11/15/20 History Spironolactone [Aldactone] 25 mg PO DAILY 07/26/19 11/15/20 History Apixaban [Eliquis] 5 mg PO BID 07/27/19 11/15/20 History Ipratropium-Albuterol Nebulize 3 ml INHALATION RT-QID PRN 05/21/20 11/15/20 History [Duoneb 0.5 mg-3 mg/3 ml Soln] Lacosamide [Vimpat] 50 mg PO DAILY 05/21/20 11/15/20 History Escitalopram [Lexapro] 10 mg PO DAILY 10/18/20 11/15/20 History Furosemide [Lasix] 40 mg PO BID 10/18/20 11/15/20 History Metoprolol Succinate [Toprol XL] 25 mg PO DAILY 10/18/20 11/15/20 History Omeprazole 20 mg PO DAILY PRN 10/18/20 11/15/20 History Sacubitril/Valsartan [Entresto 24 1 tab PO BID 10/18/20 11/15/20 History mg-26 mg Tablet] ALPRAZolam [Xanax] 0.5 mg PO HS #6 tab 10/22/20 11/15/20 Rx Acetaminophen Tab [Tylenol] 650 mg PO Q6HR PRN tab 10/22/20 11/15/20 Rx Gabapentin [Neurontin] 600 mg PO TID #10 tab 10/22/20 11/15/20 Rx Ibuprofen [Motrin] 400 mg PO Q6HR PRN tab 10/22/20 11/15/20 Rx diphenhydrAMINE [Benadryl] 25 mg PO BID PRN cap 10/22/20 11/15/20 Rx INSULIN ASPART (NovoLOG) [NovoLOG See Protocol SQ ACHS 11/15/20 11/15/20 History (formulary)] Allergies Allergy/AdvReac Type Severity Reaction Status Date / Time Penicillins Allergy Rash/Hives Verified 11/15/20 19:58 ondansetron [From Zofran] AdvReac Nausea & Verified 11/15/20 19:58 Vomiting Physical Exam Vitals: Vital Signs Temp Pulse Resp BP Pulse Ox 11/15/20 20:54 98.7 F 98 17 121/65 98 11/15/20 19:00 72 18 121/65 97 11/15/20 17:56 61 18 119/84 99 11/15/20 16:09 98.5 F 105 H 18 128/68 94 L Intake and Output 11/15/20 11/15/20 11/15/20 06:59 14:59 22:59 Other: Weight 131.542 kg - Constitutional General appearance: mild distress, morbidly obese - EENT Eyes: PERRLA Ears: bilateral: normal - Neck Neck: normal ROM Carotids: bilateral: upstroke normal Thyroid: bilateral: normal size - Respiratory Respiratory: bilateral: CTA - Cardiovascular Rhythm: regular Heart sounds: normal: S1, S2 - Gastrointestinal General gastrointestinal: decreased bowel sounds, soft - Integumentary Integumentary: normal turgor - Neurologic Neurologic: CNII-XII intact - Musculoskeletal Musculoskeletal: gait normal, generalized weakness - Psychiatric Psychiatric: A&O x's 3 Amputated right sided TOEs Results CBC & Chem 7: 11/15/20 16:35 11/15/20 16:35 Labs: Abnormal Lab Results - Last 24 Hours (Table) 11/15/20 11/15/20 11/15/20 Range/Units 16:35 16:35 16:35 Hgb 8.6 L (11.4-16.0) gm/dL Hct 31.2 L (34.0-46.0) % MCV 67.7 L (80.0-100.0) fL MCH 18.7 L (25.0-35.0) pg MCHC 27.6 L (31.0-37.0) g/dL RDW 19.1 H (11.5-15.5) % Plt Count 458 H D (150-450) k/uL D-Dimer 1.08 H (<0.60) mg/L FEU Sodium 135 L (137-145) mmol/L Carbon Dioxide 21 L (22-30) mmol/L Glucose 173 H (74-99) mg/dL Amylase <30 L (30-110) U/L Urine Protein (Negative) 11/15/20 Range/Units 18:15 Hgb (11.4-16.0) gm/dL Hct (34.0-46.0) % MCV (80.0-100.0) fL MCH (25.0-35.0) pg MCHC (31.0-37.0) g/dL RDW (11.5-15.5) % Plt Count (150-450) k/uL D-Dimer (<0.60) mg/L FEU Sodium (137-145) mmol/L Carbon Dioxide (22-30) mmol/L Glucose (74-99) mg/dL Amylase (30-110) U/L Urine Protein 1+ H (Negative) Chest x-ray: report reviewed, image reviewed Assessment and Plan Assessment: Acute on chronic systolic heart failure Microcytic anemia Morbid obesity Uncontrolled diabetes Hypertension hypertensive cardiovascular disease Cardiomyopathy nonischemic History of DVT Plan: Gentle diuresis Continue home medications Cardiovascular consult and evaluation Further recommendations pending plan of care as per clinical response of the patient
[2020-11-15 22:16] LABS: Glucose,Whole Blood 128 mg/dL (75-99)
[2020-11-16 06:52] LABS: Glucose,Whole Blood 140 mg/dL (75-99)
[2020-11-16] MEDS: FUROSEMIDE 10 MG/ML 4 ML VIAL IV SCH ×2 (07:56→21:05)
[2020-11-16 11:33] VITALS: BMI 45.4
[2020-11-16 11:48] LABS: Glucose,Whole Blood 142 mg/dL (75-99)
[2020-11-16] MEDS ORDERED: ACETAMINOPHEN TAB 325 MG TAB PO PRN (12:26)
[2020-11-16] MEDS ORDERED: IBUPROFEN 400 MG TAB PO PRN (12:26)
[2020-11-16] MEDS ORDERED: IPRATROPIUM-ALBUTEROL 3 ML NEB INHALATION PRN (12:26)
[2020-11-16] MEDS ORDERED: PANTOPRAZOLE 40 MG TABLET PO PRN (12:26)
--- NOTE | 2020-11-16 13:04 | P.CRDCN ---
History of Present Illness Consult date: 11/16/20 Consult reason: congestive heart failure History of present illness: The patient is a 44-year-old female with multiple comorbid conditions, who re cently presented to the hospital with an increase in lower extremity edema and shortness of breath. The patient states she had been ill over the last several weeks, mostly with nausea and GI upset. She states she was tested for Covid 19, however it was negative. She admits that since she was not feeling well she was not compliant with her medication regimen. The patient was interviewed and examined lying comfortably in bed. She states she still has some shortness of breath, but has significantly improved since receiving her IV Lasix. No chest pain or chest pressure. No palpitations, diz ziness, or lightheadedness. 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 DIAGNOSTICS: EKG shows paced rhythm CT of the chest is negative for pulmonary emboli; mild atelectasis noted Laboratory data shows WBC 7.9, hemoglobin 8.6, hematocrit 31.2, platelets 458, sodium 135, potassium 4.6, BUN 14, creatinine 1.04, AST 23, ALT 13, troponin less than 0.012, d-dimer 1.08, BNP 4580, amylase less than 30, and lipase 53 influenza and Covid 19 PCR negative. PAST MEDICAL HISTORY: Nonischemic idiopathic cardiomyopathy status post AICD, hypertension, systolic heart failure, diabetes, dyslipidemia, morbid obesity, bilateral foot amputee REVIEW OF SYSTEMS: No fever or chills. No cough or expectoration. No diaphoresis. Patient denies headache, dizziness, blurred vision, double vision. Patient denies any stomach discomfort. No nausea, vomiting. No hematochezia. No hematemesis. Denies any black stools or blood in his stools. Denies dysuria or hematuria. No muscle weakness or numbness. Positive for shortness of breath. Positive for edema. Negative for chest pain or chest pressure. PHYSICAL EXAMINATION: This is a 45-year-old obese female in no apparent distress at the time of my examination. HEENT: Head is atraumatic, normocephalic. Pupils are equal, round. Sclerae anicteric. Conjunctivae are clear. Mucous membranes of the mouth are moist. Neck is supple. There is no jugular venous distention. No carotid bruit is heard. CHEST EXAMINATION: Lungs are diminished auscultation. No chest wall tenderness is noted on palpation or with deep breathing. HEART EXAMINATION: Heart regular rate and rhythm. S1, S2 heard. No murmurs, gallops or rub. ABDOMEN: Soft, nontender. Bowel sounds are heard. No organomegaly noted. EXTREMITIES: Warm to touch. Mild edema. Bilateral amputee. NEUROLOGIC EXAMINATION: Patient is awake, alert and oriented x3. FINAL ASSESSMENT AND PLAN: #1 acute on chronic systolic heart failure, on IV diuretics #2 nonischemic cardiomyopathy, known ejection fraction at 20% #3 morbid obesity #4 uncontrolled diabetes #5 medication noncompliance #6 hypertension #7 elevated d-dimer, CTA of the chest negative for pulmonary emboli #8 history of DVT, on Eliquis PLAN: Continue IV diuresis 40 mg twice a day, consider transitioning back to by mouth tomorrow Continue to monitor labs Discussed the importance of medication compliance with the patient Follow-up in office 2-3 weeks after discharge Past Medical History Past Medical History: Asthma, Heart Failure, COPD, CVA/TIA, Diabetes Mellitus, Hypertension, Myocardial Infarction (IA), Pneumonia, Seizure Disorder, Seizure Disorder Additional Past Medical History / Comment(s): uses a cane. Last seizure unknown Last Myocardial Infarction Date:: 06/2018 History of Any Multi-Drug Resistant Organisms: MRSA, VRE, VRE Date of last positivie culture/infection: 2016 MDRO Source:: bilat feet Past Surgical History: Adenoidectomy, AICD, Section, Heart Catheterization, Orthopedic Surgery, Pacemaker, Tonsillectomy Additional Past Surgical History / Comment(s): AICD - [employer]. has pacemaker defibrillator, right all toe amputated 04/2016, LT GREAT TOE then left foot partial amputation Past Anesthesia/Blood Transfusion Reactions: Postoperative Nausea & Vomiting (PONV) Type of Cardiac Device: Biventricular Pacemaker, Permanent Pacemaker, AICD Device Placement Date:: 2011 Past Psychological History: Bipolar Smoking Status: Former smoker Past Alcohol Use History: None Reported Past Drug Use History: Marijuana - Past Family History Mother Family Medical History: Deep Vein Thrombosis (DVT) Additional Family Medical History / Comment(s): Some type of heart problems, kidney failure. Father History Unknown: Yes Family Medical History: Unable to Obtain Additional Family Medical History / Comment(s): Patient denies knowing any medical history on her father. Medications and Allergies Home Medications Medication Instructions Recorded Confirmed Type Insulin Glargine [Lantus] 25 unit SQ HS 04/30/19 11/15/20 History Spironolactone [Aldactone] 25 mg PO DAILY 07/26/19 11/15/20 History Apixaban [Eliquis] 5 mg PO BID 07/27/19 11/15/20 History Ipratropium-Albuterol Nebulize 3 ml INHALATION RT-QID PRN 05/21/20 11/15/20 History [Duoneb 0.5 mg-3 mg/3 ml Soln] Lacosamide [Vimpat] 50 mg PO DAILY 05/21/20 11/15/20 History Escitalopram [Lexapro] 10 mg PO DAILY 10/18/20 11/15/20 History Furosemide [Lasix] 40 mg PO BID 10/18/20 11/15/20 History Metoprolol Succinate [Toprol XL] 25 mg PO DAILY 10/18/20 11/15/20 History Omeprazole 20 mg PO DAILY PRN 10/18/20 11/15/20 History Sacubitril/Valsartan [Entresto 24 1 tab PO BID 10/18/20 11/15/20 History mg-26 mg Tablet] ALPRAZolam [Xanax] 0.5 mg PO HS #6 tab 10/22/20 11/15/20 Rx Acetaminophen Tab [Tylenol] 650 mg PO Q6HR PRN tab 10/22/20 11/15/20 Rx Gabapentin [Neurontin] 600 mg PO TID #10 tab 10/22/20 11/15/20 Rx Ibuprofen [Motrin] 400 mg PO Q6HR PRN tab 10/22/20 11/15/20 Rx diphenhydrAMINE [Benadryl] 25 mg PO BID PRN cap 10/22/20 11/15/20 Rx INSULIN ASPART (NovoLOG) [NovoLOG See Protocol SQ ACHS 11/15/20 11/15/20 History (formulary)] Allergies Allergy/AdvReac Type Severity Reaction Status Date / Time Penicillins Allergy Rash/Hives Verified 11/15/20 19:58 ondansetron [From Zofran] AdvReac Nausea & Verified 11/15/20 19:58 Vomiting Physical Exam Vitals: Vital Signs Temp Pulse Pulse Resp BP BP Pulse Ox 11/16/20 08:00 97 18 11/16/20 07:55 97.8 F 97 18 130/80 94 L 11/16/20 04:48 97.8 F 97 20 129/77 95 11/15/20 21:58 98.3 F 96 20 133/87 94 L 11/15/20 20:54 98.7 F 98 17 121/65 98 11/15/20 19:00 72 18 121/65 97 11/15/20 17:56 61 18 119/84 99 11/15/20 16:09 98.5 F 105 H 18 128/68 94 L Intake and Output 11/15/20 11/16/20 11/16/20 22:59 06:59 14:59 Output Total 1400 1400 Balance -1400 -1400 Output: Urine 1400 1400 Other: Voiding Method Bedside Commode Bedside Commode Bedside Commode # Voids 2 Weight 131.542 kg 131.542 kg Results 11/15/20 16:35 11/15/20 16:35 Cardiac Enzymes 11/15/20 11/15/20 Range/Units 16:35 16:35 AST 23 (14-36) U/L Troponin I <0.012 (0.000-0.034) ng/mL CBC 11/15/20 Range/Units 16:35 WBC 7.9 (3.8-10.6) k/uL RBC 4.61 (3.80-5.40) m/uL Hgb 8.6 L (11.4-16.0) gm/dL Hct 31.2 L (34.0-46.0) % Plt Count 458 H D (150-450) k/uL Comprehensive Metabolic Panel 11/15/20 Range/Units 16:35 Sodium 135 L (137-145) mmol/L Potassium 4.6 (3.5-5.1) mmol/L Chloride 103 (98-107) mmol/L Carbon Dioxide 21 L (22-30) mmol/L BUN 14 (7-17) mg/dL Creatinine 1.04 (0.52-1.04) mg/dL Glucose 173 H (74-99) mg/dL Calcium 9.2 (8.4-10.2) mg/dL AST 23 (14-36) U/L ALT 13 (4-34) U/L Alkaline Phosphatase 87 (38-126) U/L Total Protein 7.4 (6.3-8.2) g/dL Albumin 3.9 (3.5-5.0) g/dL Current Medications Generic Name Dose Route Start Last Admin Trade Name Freq PRN Reason Stop Dose Admin Acetaminophen 650 mg 11/16/20 12:26 Acetaminophen Tab 325 Mg Tab PO Q6HR PRN Mild Pain or Fever > 100.5 Albuterol/Ipratropium 3 ml 11/16/20 12:26 Ipratropium-Albuterol 3 Ml Neb INHALATION RT-QID PRN Shortness Of Breath Alprazolam 0.5 mg 11/16/20 21:00 Alprazolam 0.5 Mg Tab PO HS JAN Apixaban 5 mg 11/16/20 21:00 Apixaban 5 Mg Tab PO BID JAN Escitalopram Oxalate 10 mg 11/17/20 09:00 Escitalopram 10 Mg Tab PO DAILY JAN Furosemide 40 mg 11/16/20 09:00 11/16/20 07:56 Furosemide 10 Mg/Ml 4 Ml Vial IV 40 mg Q12HR JAN Administration Ibuprofen 400 mg 11/16/20 12:26 Ibuprofen 400 Mg Tab PO Q6HR PRN Mild Pain or Fever > 100.5 Insulin Aspart 0 unit 11/16/20 12:30 Insulin Aspart (Novolog) 100 Unit/Ml Vial SQ ACHS JAN Protocol Lacosamide 50 mg 11/17/20 09:00 Lacosamide 50 Mg Tablet PO DAILY JAN Metoprolol Succinate 25 mg 11/17/20 09:00 Metoprolol Succinate (Er) 25 Mg Tab.Er.24h PO DAILY JAN Non-Formulary Medication 600 mg 11/16/20 16:00 Gabapentin [Neurontin] PO TID JAN Non-Formulary Medication 25 unit 11/16/20 21:00 Insulin Glargine SQ HS JAN Non-Formulary Medication 20 mg 11/16/20 12:26 Omeprazole [Omeprazole] PO DAILY PRN Heartburn Sacubitril/Valsartan 1 each 11/16/20 21:00 Sacubitril/Valsartan 24 Mg-26 Mg Tablet PO BID JAN Spironolactone 25 mg 11/17/20 09:00 Spironolactone 25 Mg Tab PO DAILY JAN Intake and Output 11/15/20 11/16/20 11/16/20 22:59 06:59 14:59 Output Total 1400 1400 Balance -1400 -1400 Output: Urine 1400 1400 Other: Voiding Method Bedside Commode Bedside Commode Bedside Commode # Voids 2 Weight 131.542 kg 131.542 kg Patient Weight 11/17/20 06:59 Weight 131.542 kg 11/15/20 16:35 11/15/20 16:35
[2020-11-16] MEDS: INSULIN ASPART (NovoLOG) 100 UNIT/ML VIAL SQ SCH ×3 (16:24→21:05)
[2020-11-16] MEDS: GABAPENTIN 300 MG CAP PO SCH ×2 (16:34→21:07)
[2020-11-16 16:54] LABS: Glucose,Whole Blood 137 mg/dL (75-99)
[2020-11-16 20:54] LABS: Glucose,Whole Blood 159 mg/dL (75-99)
[2020-11-16] MEDS: APIXABAN 5 MG TAB PO SCH (21:04)
[2020-11-16] MEDS: ALPRAZolam 0.5 MG TAB PO SCH (21:04)
[2020-11-16] MEDS: CEFEPIME 1 GM in SODIUM CHLORIDE 0.9% 50 ML IVPB SCH (21:05)
[2020-11-16] MEDS: SACUBITRIL/VALSARTAN 24 MG-26 MG TABLET PO SCH (21:06)
[2020-11-16] MEDS: INSULIN DETEMIR (LEVEMIR) 100 UNIT/ML SYR SQ SCH (21:06)
[2020-11-16] MEDS: HYDROcodone/APAP 5-325MG 1 EACH TAB PO PRN (21:07)
--- NOTE | 2020-11-16 21:52 | P.PN ---
Subjective Progress Note Date: 11/16/20 Principal diagnosis: Right lower extremity BKA stump infection/cellulitis Acute on chronic systolic heart failure Microcytic anemia Morbid obesity Uncontrolled diabetes Hypertension hypertensive cardiovascular disease Cardiomyopathy nonischemic History of DVT 11/18/2020, patient seen eval reexamined during the rounds shortness breath stable slightly improved, patient remains on Lasix, patient right stump has been examined there is a large elliptical ulcer is present with purulent discharge and surrounding cellulitis, patient is status post BKA from November [address] Hurd and with prior history of the infection of the stump with VRE, we'll restart IV cephapirin obtain blood culture send wound for culture and sensitivity consult vascular surgery and infectious disease as well This is a 45-year-old morbidly obese female with the history of the nonischemic cardiomyopathy with baseline ejection fraction of 40%, patient has been noting some increase in lower extremity swelling also increasing shortness of breath, decided to come into the hospital, ongoing cough is present her appetite has been poor, she also have mild substernal chest heaviness, however denies any back pain, denies any night sweats fever or chills, denies any history of smoking and nicotine use, she takes oral direct anticoagulants as well as Lantus as needed bronchodilator, prior history is significant for hypertension hypertensive cardiovascular disease seizure disorder, history of the MRSA and status post right sided toe amputation back in April 2016, she is status post to the AICD with biventricular pacing and permanent pacemaker, chest x-ray significant for cardiomegaly interstitial edema, computed tomography scan is negative for pulmonary embolism some atelectasis has been noted, she is negative for influenza A and B as well as [place], urine unremarkable, BNP is over 4500, previous noted to be around 1500, troponin normal, microcytic anemia has been noted with hemoglobin of 8.6 and MCV of 67, Objective - Vital Signs Vital signs: Vital Signs Temp 99 F 11/16/20 15:00 Pulse 100 11/16/20 15:00 Resp 18 11/16/20 15:00 BP 137/71 11/16/20 15:00 Pulse Ox 94 L 11/16/20 07:55 Intake & Output 11/16/20 11/16/20 11/17/20 06:59 18:59 06:59 Output Total 2800 6 Balance -2800 -6 Weight 131.542 kg 131.542 kg Output: Urine 2800 Stool 6 Other: Voiding Method Bedside Commode Bedside Commode # Voids 2 2 - Exam - Constitutional General appearance: mild distress, morbidly obese - EENT Eyes: PERRLA Ears: bilateral: normal - Neck Neck: normal ROM Carotids: bilateral: upstroke normal Thyroid: bilateral: normal size - Respiratory Respiratory: bilateral: CTA - Cardiovascular Rhythm: regular Heart sounds: normal: S1, S2 - Gastrointestinal General gastrointestinal: decreased bowel sounds, soft - Integumentary Integumentary: normal turgor - Neurologic Neurologic: CNII-XII intact - Musculoskeletal Musculoskeletal: gait normal, generalized weakness - Psychiatric Psychiatric: A&O x's 3 Amputated right sided BKA with stump infection and surrounding cellulitis - Labs CBC & Chem 7: 11/15/20 16:35 11/15/20 16:35 Labs: Abnormal Lab Results - Last 24 Hours (Table) 11/15/20 11/16/20 11/16/20 Range/Units 22:15 06:50 11:46 POC Glucose (mg/dL) 128 H 140 H 142 H (75-99) mg/dL 11/16/20 11/16/20 Range/Units 16:53 20:52 POC Glucose (mg/dL) 137 H 159 H (75-99) mg/dL Assessment and Plan Assessment: Right lower extremity stump cellulitis and stump infection Acute on chronic systolic heart failure Microcytic anemia Morbid obesity Uncontrolled diabetes Hypertension hypertensive cardiovascular disease Cardiomyopathy nonischemic History of DVT Plan: Wound for culture and sensitivity Blood culture IV cefapime ID consult Vascular surgery consult Gentle diuresis Continue home medications Cardiovascular consult and evaluation Further recommendations pending plan of care as per clinical response of the patient Time with Patient: Greater than 30
[2020-11-17 06:17] LABS: Glucose,Whole Blood 103 mg/dL (75-99)
[2020-11-17] MEDS: INSULIN ASPART (NovoLOG) 100 UNIT/ML VIAL SQ SCH ×4 (06:51→23:05)
[2020-11-17 08:29] LABS: Albumin 3.4 g/dL (3.5-5.0); Calcium 8.4 mg/dL (8.4-10.2); Potassium 3.7 mmol/L (3.5-5.1); Total Bilirubin 0.9 mg/dL (0.2-1.3); Total Protein 6.6 g/dL (6.3-8.2)
[2020-11-17 08:41] LABS: Anisocytosis Slight; Basophils % (A) 1 %; Eosinophils # (A) 0.3 k/uL (0-0.7); Eosinophils % (A) 4 %; HCT 28.6 % (34.0-46.0); HGB 8.4 gm/dL (11.4-16.0); Hypochromasia Marked; Lymphocytes % (A) 26 %; MCH 19.8 pg (25.0-35.0); MCHC 29.2 g/dL (31.0-37.0); MCV 67.7 fL (80.0-100.0); Mean Platelet Volume 7.2; Microcytosis Marked; Monocytes # (A) 1.1 k/uL (0-1.0); Monocytes % (A) 15 %; Neutrophils # (A) 3.9 k/uL (1.3-7.7); Neutrophils % (A) 52 %; Platelet Count 358 k/uL (150-450); Poikilocytosis Slight; RBC 4.22 m/uL (3.80-5.40); RDW 19.3 % (11.5-15.5); WBC 7.5 k/uL (3.8-10.6)
[2020-11-17] MEDS: LACOSAMIDE 50 MG TABLET PO SCH (09:06)
[2020-11-17] MEDS: SACUBITRIL/VALSARTAN 24 MG-26 MG TABLET PO SCH ×2 (09:06→21:54)
[2020-11-17] MEDS: APIXABAN 5 MG TAB PO SCH ×2 (09:06→21:54)
[2020-11-17] MEDS: GABAPENTIN 300 MG CAP PO SCH ×3 (09:06→21:54)
[2020-11-17] MEDS: ESCITALOPRAM 10 MG TAB PO SCH (09:06)
[2020-11-17] MEDS: METOPROLOL SUCCINATE (ER) 25 MG TAB.ER.24H PO SCH (09:06)
[2020-11-17] MEDS: SPIRONOLACTONE 25 MG TAB PO SCH (09:06)
[2020-11-17] MEDS: FUROSEMIDE 10 MG/ML 4 ML VIAL IV SCH (09:10)
[2020-11-17] MEDS: CEFEPIME 1 GM in SODIUM CHLORIDE 0.9% 50 ML IVPB SCH ×2 (09:17→21:52)
--- NOTE | 2020-11-17 09:56 | P.PN ---
Subjective This is a pleasant 45-year-old female past medical history significant for chronic systolic heart failure, nonischemic cardiomyopathy status post AICD, diabetes mellitus, hypertension, history of DVT on Eliquis, morbid obesity, medical noncompliance and right below the knee amputation. She is seen and examined sitting up in bed in no acute distress. She states overall her breathing seems back to baseline. She denies chest pain, dizziness or palpitations. The pressure 123/76 heart rate 86 afebrile maintaining oxygen saturation on nasal cannula. Laboratory data reviewed, WBC 7.5, hemoglobin 8.4, platelets 358, sodium 140, potassium 3.7 and creatinine 1.06. GENERAL: Well-appearing, well-nourished and in no acute distress. NECK: Supple without JVD or thyromegaly. LUNGS: Breath sounds clear to auscultation bilaterally. Respiration equal and unlabored. No wheezes, rales or rhonchi. Diminished bilaterally. HEART: Regular rate and rhythm without murmurs, rubs or gallops. S1 and S2 heard. EXTREMITIES: Normal range of motion, no edema, right lower extremity BKA. No clubbing or cyanosis. Peripheral pulses intact. ASSESSMENT Acute on chronic systolic heart failure secondary to not taking her lasix for a few days Nonischemic cardiomyopathy status post AICD Diabetes mellitus Hypertension History of DVT maintained on Eliquis Morbid obesity, BMI 45 PLAN Transition to oral diuretics. Importance of diuretic compliance and low sodium diet discussed with the patient. Stable for discharge from a cardiac perspective. Follow-up in the office with Dr. Esquivel upon discharge. Nurse Practitioner note has been reviewed, I agree with a documented findings and plan of care. Patient was seen and examined. Objective - Vital Signs Vital signs: Vital Signs Temp 97.6 F 11/17/20 08:54 Pulse 86 11/17/20 08:54 Resp 16 11/17/20 08:54 BP 123/76 11/17/20 08:54 Pulse Ox 99 11/17/20 09:15 Intake & Output 11/16/20 11/17/20 11/17/20 18:59 06:59 18:59 Intake Total 540 100 Output Total 6 Balance -6 540 100 Weight 131.542 kg Intake: Oral 540 100 Output: Stool 6 Other: Voiding Method Bedside Commode Bedside Commode # Voids 2 2 - Labs CBC & Chem 7: 11/17/20 07:10 11/17/20 07:10 Labs: Abnormal Lab Results - Last 24 Hours (Table) 11/16/20 11/16/20 11/16/20 Range/Units 11:46 16:53 20:52 Hgb (11.4-16.0) gm/dL Hct (34.0-46.0) % MCV (80.0-100.0) fL MCH (25.0-35.0) pg MCHC (31.0-37.0) g/dL RDW (11.5-15.5) % Carbon Dioxide (22-30) mmol/L Creatinine (0.52-1.04) mg/dL POC Glucose (mg/dL) 142 H 137 H 159 H (75-99) mg/dL Albumin (3.5-5.0) g/dL 11/17/20 11/17/20 11/17/20 Range/Units 06:16 07:10 07:10 Hgb 8.4 L (11.4-16.0) gm/dL Hct 28.6 L (34.0-46.0) % MCV 67.7 L (80.0-100.0) fL MCH 19.8 L (25.0-35.0) pg MCHC 29.2 L (31.0-37.0) g/dL RDW 19.3 H (11.5-15.5) % Carbon Dioxide 31 H (22-30) mmol/L Creatinine 1.06 H (0.52-1.04) mg/dL POC Glucose (mg/dL) 103 H (75-99) mg/dL Albumin 3.4 L (3.5-5.0) g/dL
--- NOTE | 2020-11-17 11:35 | P.PN ---
Subjective Progress Note Date: 11/17/20 Principal diagnosis: Right lower extremity BKA stump infection/cellulitis Acute on chronic systolic heart failure Microcytic anemia Morbid obesity Uncontrolled diabetes Hypertension hypertensive cardiovascular disease Cardiomyopathy nonischemic History of DVT 11/17/2020, patient seen and evaluated examined labs reviewed medications reviewed, at room air patient did desaturate up to 87%, she will require assessment for home oxygen, in the meantime ID service and vascular surgery consultation evaluation pending patient remains on IV antibiotics 11/16/2020, patient seen eval reexamined during the rounds shortness breath stable slightly improved, patient remains on Lasix, patient right stump has been examined there is a large elliptical ulcer is present with purulent discharge and surrounding cellulitis, patient is status post BKA from November [address] Hurd and with prior history of the infection of the stump with VRE, we'll restart IV cephapirin obtain blood culture send wound for culture and sensitivity consult vascular surgery and infectious disease as well This is a 45-year-old morbidly obese female with the history of the nonischemic cardiomyopathy with baseline ejection fraction of 40%, patient has been noting some increase in lower extremity swelling also increasing shortness of breath, decided to come into the hospital, ongoing cough is present her appetite has been poor, she also have mild substernal chest heaviness, however denies any b ack pain, denies any night sweats fever or chills, denies any history of smoking and nicotine use, she takes oral direct anticoagulants as well as Lantus as needed bronchodilator, prior history is significant for hypertension hypertensive cardiovascular disease seizure disorder, history of the MRSA and status post right sided toe amputation back in April 2016, she is status post to the AICD with biventricular pacing and permanent pacemaker, chest x-ray significant for cardiomegaly interstitial edema, computed tomography scan is negative for pulmonary embolism some atelectasis has been noted, she is negative for influenza A and B as well as [place], urine unremarkable, BNP is over 4500, previous noted to be around 1500, troponin normal, microcytic anemia has been noted with hemoglobin of 8.6 and MCV of 67, Objective - Vital Signs Vital signs: Vital Signs Temp 97.6 F 11/17/20 08:54 Pulse 86 11/17/20 08:54 Resp 16 11/17/20 09:00 BP 123/76 11/17/20 08:54 Pulse Ox 99 11/17/20 09:15 Intake & Output 11/16/20 11/17/20 11/17/20 18:59 06:59 18:59 Intake Total 540 100 Output Total 6 Balance -6 540 100 Weight 131.542 kg Intake: Oral 540 100 Output: Stool 6 Other: Voiding Method Bedside Commode Bedside Commode Bedside Commode # Voids 2 2 - Exam - Constitutional General appearance: mild distress, morbidly obese - EENT Eyes: PERRLA Ears: bilateral: normal - Neck Neck: normal ROM Carotids: bilateral: upstroke normal Thyroid: bilateral: normal size - Respiratory Respiratory: bilateral: CTA - Cardiovascular Rhythm: regular Heart sounds: normal: S1, S2 - Gastrointestinal General gastrointestinal: decreased bowel sounds, soft - Integumentary Integumentary: normal turgor - Neurologic Neurologic: CNII-XII intact - Musculoskeletal Musculoskeletal: gait normal, generalized weakness - Psychiatric Psychiatric: A&O x's 3 Amputated right sided BKA with stump infection and surrounding cellulitis - Labs CBC & Chem 7: 11/17/20 07:10 11/17/20 07:10 Labs: Abnormal Lab Results - Last 24 Hours (Table) 11/16/20 11/16/20 11/16/20 Range/Units 11:46 16:53 20:52 Hgb (11.4-16.0) gm/dL Hct (34.0-46.0) % MCV (80.0-100.0) fL MCH (25.0-35.0) pg MCHC (31.0-37.0) g/dL RDW (11.5-15.5) % Monocytes # (0-1.0) k/uL Carbon Dioxide (22-30) mmol/L Creatinine (0.52-1.04) mg/dL POC Glucose (mg/dL) 142 H 137 H 159 H (75-99) mg/dL Albumin (3.5-5.0) g/dL 11/17/20 11/17/20 11/17/20 Range/Units 06:16 07:10 07:10 Hgb 8.4 L (11.4-16.0) gm/dL Hct 28.6 L (34.0-46.0) % MCV 67.7 L (80.0-100.0) fL MCH 19.8 L (25.0-35.0) pg MCHC 29.2 L (31.0-37.0) g/dL RDW 19.3 H (11.5-15.5) % Monocytes # 1.1 H (0-1.0) k/uL Carbon Dioxide 31 H (22-30) mmol/L Creatinine 1.06 H (0.52-1.04) mg/dL POC Glucose (mg/dL) 103 H (75-99) mg/dL Albumin 3.4 L (3.5-5.0) g/dL Assessment and Plan Assessment: Acute on chronic hypoxic respirator failure multifactorial related to sepsis chronic systolic heart failure obesity hypoventilation Right lower extremity stump cellulitis and stump infection Acute on chronic systolic heart failure Microcytic anemia Morbid obesity Uncontrolled diabetes Hypertension hypertensive cardiovascular disease Cardiomyopathy nonischemic History of DVT Plan: Wound for culture and sensitivity Blood culture IV cefapime ID consult Vascular surgery consult Gentle diuresis Continue home medications Patient likely will need home oxygen Cardiovascular consult and evaluation Further recommendations pending plan of care as per clinical response of the patient Time with Patient: Greater than 30
[2020-11-17 11:36] LABS: Glucose,Whole Blood 145 mg/dL (75-99)
--- NOTE | 2020-11-17 12:42 | P.CONS ---
History of Present Illness - Reason for Consult Consult date: 11/17/20 wound care - History of Present Illness this is a 45-year-old patient being seen on the [facility] for a nonhealing ulceration to the right amputation site. Patient states that the ulceration has been there for approximately 6 months. She previously was at [facility] where they were using Santyl and unchanged Hydrofera Blue. Patient has granulation throughout the wound bed with the wound edges attached to the wound base. There is minimal slough noted within the wound base. With minimal drainage. No signs of infection noted no erythema or induration. Review of Systems Review Of Systems: Constitutional: No fever, no chills, no night sweats. No weight change. No weakness, fatigue or lethargy. No daytime sleepiness. Integumentary:reports wounds, no lesions. No rash or pruritus. No unusual bruising. No change in hair or nails. Past Medical History Past Medical History: Asthma, Heart Failure, COPD, CVA/TIA, Diabetes Mellitus, Hypertension, Myocardial Infarction ([place]), Pneumonia, Seizure Disorder, Seizure Disorder Additional Past Medical History / Comment(s): uses a cane. Last seizure unknown Last Myocardial Infarction Date:: 06/2018 History of Any Multi-Drug Resistant Organisms: MRSA, VRE, VRE Year Discovered:: 2016 MDRO Source:: bilat feet Past Surgical History: Adenoidectomy, AICD, Section, Heart Catheterization, Orthopedic Surgery, Pacemaker, Tonsillectomy Additional Past Surgical History / Comment(s): AICD - [employer]. has pacemaker defibrillator, right all toe amputated 04/2016, LT GREAT TOE then left foot partial amputation Past Anesthesia/Blood Transfusion Reactions: Postoperative Nausea & Vomiting (PONV) Type of Cardiac Device: Biventricular Pacemaker, Permanent Pacemaker, AICD Device Placement Date:: 2011 Past Psychological History: Bipolar Smoking Status: Former smoker Past Alcohol Use History: None Reported Past Drug Use History: Marijuana - Past Family History Mother Family Medical History: Deep Vein Thrombosis (DVT) Additional Family Medical History / Comment(s): Some type of heart problems, kidney failure. Father History Unknown: Yes Family Medical History: Unable to Obtain Additional Family Medical History / Comment(s): Patient denies knowing any medical history on her father. Medications and Allergies Home Medications Medication Instructions Recorded Confirmed Type Insulin Glargine [Lantus] 25 unit SQ HS 04/30/19 11/15/20 History Spironolactone [Aldactone] 25 mg PO DAILY 07/26/19 11/15/20 History Apixaban [Eliquis] 5 mg PO BID 07/27/19 11/15/20 History Ipratropium-Albuterol Nebulize 3 ml INHALATION RT-QID PRN 05/21/20 11/15/20 History [Duoneb 0.5 mg-3 mg/3 ml Soln] Lacosamide [Vimpat] 50 mg PO DAILY 05/21/20 11/15/20 History Escitalopram [Lexapro] 10 mg PO DAILY 10/18/20 11/15/20 History Furosemide [Lasix] 40 mg PO BID 10/18/20 11/15/20 History Metoprolol Succinate [Toprol XL] 25 mg PO DAILY 10/18/20 11/15/20 History Omeprazole 20 mg PO DAILY PRN 10/18/20 11/15/20 History Sacubitril/Valsartan [Entresto 24 1 tab PO BID 10/18/20 11/15/20 History mg-26 mg Tablet] ALPRAZolam [Xanax] 0.5 mg PO HS #6 tab 10/22/20 11/15/20 Rx Acetaminophen Tab [Tylenol] 650 mg PO Q6HR PRN tab 10/22/20 11/15/20 Rx Gabapentin [Neurontin] 600 mg PO TID #10 tab 10/22/20 11/15/20 Rx Ibuprofen [Motrin] 400 mg PO Q6HR PRN tab 10/22/20 11/15/20 Rx diphenhydrAMINE [Benadryl] 25 mg PO BID PRN cap 10/22/20 11/15/20 Rx INSULIN ASPART (NovoLOG) [NovoLOG See Protocol SQ ACHS 11/15/20 11/15/20 History (formulary)] Allergies Allergy/AdvReac Type Severity Reaction Status Date / Time Penicillins Allergy Rash/Hives Verified 11/15/20 19:58 ondansetron [From Zofran] AdvReac Nausea & Verified 11/15/20 19:58 Vomiting Physical Exam Vitals: Vital Signs Temp Pulse Resp BP Pulse Ox 11/17/20 09:15 99 12/21/20 09:00 16 11/17/20 08:54 97.6 F 86 16 123/76 87 L 11/17/20 03:35 98.2 F 91 18 131/85 94 L 11/16/20 19:30 98.5 F 78 18 147/78 93 L 11/16/20 15:00 99 F 100 18 137/71 Intake and Output 11/16/20 11/17/20 11/17/20 22:59 06:59 14:59 Intake Total 540 100 Output Total 4 Balance 536 100 Intake: Oral 540 100 Output: Stool 4 Other: Voiding Method Bedside Commode Bedside Commode Bedside Commode # Voids 2 2 Physical exam: General Appearance: Alert, cooperative, no distress, appears stated age. Skin: See HPI all other Skin color, texture, tugor normal, no rashes or lesions. Neurologic: Alert oriented x3 Results CBC & Chem 7: 11/17/20 07:10 11/17/20 07:10 Labs: Abnormal Lab Results - Last 24 Hours (Table) 11/16/20 11/16/20 11/17/20 Range/Units 16:53 20:52 06:16 Hgb (11.4-16.0) gm/dL Hct (34.0-46.0) % MCV (80.0-100.0) fL MCH (25.0-35.0) pg MCHC (31.0-37.0) g/dL RDW (11.5-15.5) % Monocytes # (0-1.0) k/uL Carbon Dioxide (22-30) mmol/L Creatinine (0.52-1.04) mg/dL POC Glucose (mg/dL) 137 H 159 H 103 H (75-99) mg/dL Albumin (3.5-5.0) g/dL 11/17/20 11/17/20 11/17/20 Range/Units 07:10 07:10 11:34 Hgb 8.4 L (11.4-16.0) gm/dL Hct 28.6 L (34.0-46.0) % MCV 67.7 L (80.0-100.0) fL MCH 19.8 L (25.0-35.0) pg MCHC 29.2 L (31.0-37.0) g/dL RDW 19.3 H (11.5-15.5) % Monocytes # 1.1 H (0-1.0) k/uL Carbon Dioxide 31 H (22-30) mmol/L Creatinine 1.06 H (0.52-1.04) mg/dL POC Glucose (mg/dL) 145 H (75-99) mg/dL Albumin 3.4 L (3.5-5.0) g/dL Assessment and Plan (1) Diabetes with skin ulcer Current Visit: Yes Status: Acute Code(s): E11.622 - TYPE 2 DIABETES MELLITUS WITH OTHER SKIN ULCER; L98.499 - NON-PRESSURE CHRONIC ULCER OF SKIN OF SITES W UNSP SEVERITY SNOMED Code(s): 85585873 (2) Nonhealing ulcer of right lower leg with fat layer exposed Current Visit: Yes Status: Acute Code(s): L97.912 - NON-PRS CHR ULC UNSP PRT OF R LOW LEG W FAT LAYER EXPOSED SNOMED Code(s): 98734532 Plan: apply collagen, feeling was gauze and a border foam gauze. Change Tuesday. Upon discharge patient can return to utilize Hydrofera Blue saline moistened gauze and a border gauze dressing. With homecare. Continue to change Tuesday. Thank you for the consultation any questions please contact the wound care center DNP note has been reviewed and discussed with Dr. Miranda and the impression and plan of care has been directed as dictated.
--- NOTE | 2020-11-17 13:12 | P.GSCN ---
History of Present Illness History of present illness: 45-year-old white female, known to me from the past patient had a right below- knee amputation done in the past she fell down and she had a flap necrosis for that patient went for debridement and local wound care. Patient has history of diabetes obesity and also patient has history of 4 congestive heart failure she is been admitted on medication with Lasix the right below-knee stump has a wound which is granulating no discharge or redness noted . Patient also had a left transmetatarsal amputation and in the past. Right below-knee his stump wound is healing and we will continue with Santyl cream and patient is on antibiotic which will be continued. Is we'll use sentinel cream for daily change dressing if patient goes home we will follow in the wound clinic Neck examination neck is supple no bruit appreciated Chest is clear few rhonchi at the lung bases first and second sound present Abdomen soft nontender Vascular femorals are 1+ bilateral wound right below-knee stump is healing we continue with local wound care Plan is Tin goes home we'll follow in the wound clinic continue with Santyl daily Past Medical History Past Medical History: Asthma, Heart Failure, COPD, CVA/TIA, Diabetes Mellitus, Hypertension, Myocardial Infarction ([place]), Pneumonia, Seizure Disorder, Seizure Disorder Additional Past Medical History / Comment(s): uses a cane. Last seizure unknown Last Myocardial Infarction Date:: 06/2018 History of Any Multi-Drug Resistant Organisms: MRSA, VRE, VRE Year Discovered:: 2016 MDRO Source:: bilat feet Past Surgical History: Adenoidectomy, AICD, Section, Heart Catheterization, Orthopedic Surgery, Pacemaker, Tonsillectomy Additional Past Surgical History / Comment(s): AICD - [employer]. has pacemaker defibrillator, right all toe amputated 04/2016, LT GREAT TOE then left foot partial amputation Past Anesthesia/Blood Transfusion Reactions: Postoperative Nausea & Vomiting (PONV) Type of Cardiac Device: Biventricular Pacemaker, Permanent Pacemaker, AICD Device Placement Date:: 2011 Past Psychological History: Bipolar Smoking Status: Former smoker Past Alcohol Use History: None Reported Past Drug Use History: Marijuana - Past Family History Mother Family Medical History: Deep Vein Thrombosis (DVT) Additional Family Medical History / Comment(s): Some type of heart problems, kidney failure. Father History Unknown: Yes Family Medical History: Unable to Obtain Additional Family Medical History / Comment(s): Patient denies knowing any medical history on her father. Medications and Allergies Home Medications Medication Instructions Recorded Confirmed Type Insulin Glargine [Lantus] 25 unit SQ HS 04/30/19 11/15/20 History Spironolactone [Aldactone] 25 mg PO DAILY 07/26/19 11/15/20 History Apixaban [Eliquis] 5 mg PO BID 07/27/19 11/15/20 History Ipratropium-Albuterol Nebulize 3 ml INHALATION RT-QID PRN 05/21/20 11/15/20 History [Duoneb 0.5 mg-3 mg/3 ml Soln] Lacosamide [Vimpat] 50 mg PO DAILY 05/21/20 11/15/20 History Escitalopram [Lexapro] 10 mg PO DAILY 10/18/20 11/15/20 History Furosemide [Lasix] 40 mg PO BID 10/18/20 11/15/20 History Metoprolol Succinate [Toprol XL] 25 mg PO DAILY 10/18/20 11/15/20 History Omeprazole 20 mg PO DAILY PRN 10/18/20 11/15/20 History Sacubitril/Valsartan [Entresto 24 1 tab PO BID 10/18/20 11/15/20 History mg-26 mg Tablet] ALPRAZolam [Xanax] 0.5 mg PO HS #6 tab 10/22/20 11/15/20 Rx Acetaminophen Tab [Tylenol] 650 mg PO Q6HR PRN tab 10/22/20 11/15/20 Rx Gabapentin [Neurontin] 600 mg PO TID #10 tab 10/22/20 11/15/20 Rx Ibuprofen [Motrin] 400 mg PO Q6HR PRN tab 10/22/20 11/15/20 Rx diphenhydrAMINE [Benadryl] 25 mg PO BID PRN cap 10/22/20 11/15/20 Rx INSULIN ASPART (NovoLOG) [NovoLOG See Protocol SQ ACHS 11/15/20 11/15/20 History (formulary)] Allergies Allergy/AdvReac Type Severity Reaction Status Date / Time Penicillins Allergy Rash/Hives Verified 11/15/20 19:58 ondansetron [From Zofran] AdvReac Nausea & Verified 11/15/20 19:58 Vomiting Surgical - Exam Vital Signs Temp Pulse Resp BP Pulse Ox 98.5 F 105 H 18 128/68 94 L 11/15/20 16:09 11/15/20 16:09 11/15/20 16:09 11/15/20 16:09 11/15/20 16:09 Results - Labs 11/17/20 07:10 11/17/20 07:10 Abnormal Lab Results - Last 24 Hours (Table) 11/16/20 11/16/20 11/17/20 Range/Units 16:53 20:52 06:16 Hgb (11.4-16.0) gm/dL Hct (34.0-46.0) % MCV (80.0-100.0) fL MCH (25.0-35.0) pg MCHC (31.0-37.0) g/dL RDW (11.5-15.5) % Monocytes # (0-1.0) k/uL Carbon Dioxide (22-30) mmol/L Creatinine (0.52-1.04) mg/dL POC Glucose (mg/dL) 137 H 159 H 103 H (75-99) mg/dL Albumin (3.5-5.0) g/dL 11/17/20 11/17/20 11/17/20 Range/Units 07:10 07:10 11:34 Hgb 8.4 L (11.4-16.0) gm/dL Hct 28.6 L (34.0-46.0) % MCV 67.7 L (80.0-100.0) fL MCH 19.8 L (25.0-35.0) pg MCHC 29.2 L (31.0-37.0) g/dL RDW 19.3 H (11.5-15.5) % Monocytes # 1.1 H (0-1.0) k/uL Carbon Dioxide 31 H (22-30) mmol/L Creatinine 1.06 H (0.52-1.04) mg/dL POC Glucose (mg/dL) 145 H (75-99) mg/dL Albumin 3.4 L (3.5-5.0) g/dL Diabetes panel 11/17/20 Range/Units 07:10 Sodium 140 (137-145) mmol/L Potassium 3.7 (3.5-5.1) mmol/L Chloride 102 (98-107) mmol/L Carbon Dioxide 31 H (22-30) mmol/L BUN 16 (7-17) mg/dL Creatinine 1.06 H (0.52-1.04) mg/dL Glucose 99 (74-99) mg/dL Calcium 8.4 (8.4-10.2) mg/dL AST 16 (14-36) U/L ALT 9 (4-34) U/L Alkaline Phosphatase 66 (38-126) U/L Total Protein 6.6 (6.3-8.2) g/dL Albumin 3.4 L (3.5-5.0) g/dL Calcium panel 11/17/20 Range/Units 07:10 Calcium 8.4 (8.4-10.2) mg/dL Albumin 3.4 L (3.5-5.0) g/dL Pituitary panel 11/17/20 Range/Units 07:10 Sodium 140 (137-145) mmol/L Potassium 3.7 (3.5-5.1) mmol/L Chloride 102 (98-107) mmol/L Carbon Dioxide 31 H (22-30) mmol/L BUN 16 (7-17) mg/dL Creatinine 1.06 H (0.52-1.04) mg/dL Glucose 99 (74-99) mg/dL Calcium 8.4 (8.4-10.2) mg/dL Adrenal panel 11/17/20 Range/Units 07:10 Sodium 140 (137-145) mmol/L Potassium 3.7 (3.5-5.1) mmol/L Chloride 102 (98-107) mmol/L Carbon Dioxide 31 H (22-30) mmol/L BUN 16 (7-17) mg/dL Creatinine 1.06 H (0.52-1.04) mg/dL Glucose 99 (74-99) mg/dL Calcium 8.4 (8.4-10.2) mg/dL Total Bilirubin 0.9 (0.2-1.3) mg/dL AST 16 (14-36) U/L ALT 9 (4-34) U/L Alkaline Phosphatase 66 (38-126) U/L Total Protein 6.6 (6.3-8.2) g/dL Albumin 3.4 L (3.5-5.0) g/dL
[2020-11-17] MEDS: HYDROcodone/APAP 5-325MG 1 EACH TAB PO PRN ×2 (14:17→21:52)
[2020-11-17] MEDS: FUROSEMIDE 40 MG TAB PO SCH (15:47)
[2020-11-17] MEDS: COLLAGENASE 250 UNIT/GM OINTMENT 30 GM TUBE TOPICAL SCH (15:47)
[2020-11-17 16:37] LABS: Glucose,Whole Blood 147 mg/dL (75-99)
[2020-11-17 21:48] LABS: Glucose,Whole Blood 124 mg/dL (75-99)
[2020-11-17] MEDS: INSULIN DETEMIR (LEVEMIR) 100 UNIT/ML SYR SQ SCH (21:54)
[2020-11-17] MEDS: ALPRAZolam 0.5 MG TAB PO SCH (21:54)
--- NOTE | 2020-11-17 23:38 | CONS ---
CONSULTATION DATE OF SERVICE: 11/17/2020. REASON FOR CONSULTATION: Right BKA stump wound and left foot wound. HISTORY OF PRESENT ILLNESS: The patient is a 45 -year-old female, past medical history significant for diabetic foot infection requiring right [id number] amputation in this patient who did have multiple admission hospital with secondary cellulitis and wound infection and recently has completed a course of IV and oral antibiotic therapy for which the patient was at [facility]. The patient mentioned she was discharged from [facility] about 2 weeks ago. The patient presented to [facility] on November 15, 2020 for evaluation of increasing shortness of breath, nausea and vomiting. Patient on presentation to the hospital has been afebrile. The patient did have a normal white count. The patient did have elevated D. dimer. CT angiogram of the chest, which was negative for PE, did show some subsegmental atelectasis. No ground-glass opacities. The patient did have Estrada and influenza PCR negative. Infectious Disease was consulted last night for evaluation of right BKA stump wound. Concern for possible cellulitis and need for antibiotic therapy. The patient denies having any worsening pain to the right BKA stump wound. Mild dull aching pain to 3/10 no radiation. No purulent drainage and foul smelling. She also has a wound on the plantar aspect of the left foot. The patient is currently having no symptoms referable to it. REVIEW OF SYSTEMS: Positive points have been mentioned in HPI. Rest of the systems are negative. PAST MEDICAL HISTORY: Asthma, heart failure, COPD, CVA, TIA, diabetes mellitus, hypertension, seizure disorder, diabetic foot infection. PAST SURGICAL HISTORY: Adenoidectomy, AICD, , heart transition, pacemaker placement, tonsillectomy, right [id number] amputation and left foot transmetatarsal amputation. SOCIAL HISTORY: Remote history of smoking. No drinking. Did admit to marijuana use. FAMILY HISTORY: His mother with history of DVT. ALLERGIES: Allergies to PENICILLIN and ZOFRAN. MEDICATIONS: The patient is currently on Tylenol, Ashkum, DuoNeb, Xanax, Eliquis, cefepime 1 g q.12h. Fentanyl, Lexapro, Lasix, Neurontin, Motrin, NovoLog, Levemir, Toprol-XL, Protonix and Aldactone. PHYSICAL EXAMINATION: Blood pressure 129/77 with a pulse of 80, temperature 96.1. She is 97% on 2 L nasal cannula. General description is a middle-aged female lying in bed in no distress. No tachypnea or accessory muscle of respiration use. HEENT: Examination shows slight pallor. No scleral icterus. Oral mucous membranes dry. No pharyngeal erythema or thrush. NECK: Trachea central. No thyromegaly. LUNGS unlabored breathing. Clear to auscultation anteriorly. No wheeze or crackles. HEART S1, S2. Regular rate and rhythm. ABDOMEN: Soft, no tenderness. No guarding or any rigidity. EXTREMITIES: Right BKA stump wound with minimal slough tissue. No surrounding redness. Very foul-smelling drainage. Left foot plantar wound with no slough tissue. No surrounding swelling redness or any drainage. Did have some callus. NEUROLOGICAL: Patient is awake, alert, oriented x3. Mood and affect normal. LABS: Hemoglobin 8.4, white count 7.5, BUN of 16, creatinine 1.06. Electrolytes have been normal with liver enzymes normal. Urine is negative. DIAGNOSTIC IMPRESSION AND PLAN: 1. Patient with right BKA stump wound nonhealing. Clinically, no evidence of any secondary cellulitis. Recommend local wound care in this patient with no fever or elevated white count. 2. Patient with left diabetic foot wound with evidence of cellulitis, recommend local wound care. PLAN: 1. Antibiotic can be safely discontinued. 2. No need for any local culture. 3. Local wound care to the wound with Santyl followed by moist dressing. 4. We will follow up on clinical condition and adjust medications further if needed. Thank you for this consultation. We will follow this patient along with you. MMODL / IJN: [id number] /
[2020-11-18 07:07] LABS: Glucose,Whole Blood 90 mg/dL (75-99)
[2020-11-18] MEDS: INSULIN ASPART (NovoLOG) 100 UNIT/ML VIAL SQ SCH ×2 (07:22→12:25)
[2020-11-18 07:59] VITALS: BP 104/65; PULSE 83; RESP 14; TEMP 97.6
[2020-11-18] MEDS: GABAPENTIN 300 MG CAP PO SCH (09:26)
[2020-11-18] MEDS: METOPROLOL SUCCINATE (ER) 25 MG TAB.ER.24H PO SCH (09:28)
[2020-11-18] MEDS: APIXABAN 5 MG TAB PO SCH (09:28)
[2020-11-18] MEDS: SPIRONOLACTONE 25 MG TAB PO SCH (09:28)
[2020-11-18] MEDS: SACUBITRIL/VALSARTAN 24 MG-26 MG TABLET PO SCH (09:28)
[2020-11-18] MEDS: LACOSAMIDE 50 MG TABLET PO SCH (09:28)
[2020-11-18] MEDS: ESCITALOPRAM 10 MG TAB PO SCH (09:29)
[2020-11-18] MEDS: FUROSEMIDE 40 MG TAB PO SCH (09:29)
[2020-11-18] MEDS: CEFEPIME 1 GM in SODIUM CHLORIDE 0.9% 50 ML IVPB SCH (09:29)
--- NOTE | 2020-11-18 10:58 | P.DS ---
Providers Date of admission: 11/17/20 11:26 Expected date of discharge: 11/18/20 Attending physician: Jv Hill Consults: 11/15/20 19:57 Consult Physician Routine Consulting Provider: Sarah Raymundo Consult Reason/Comments: heart failure Do you want consulting provider notified?: Yes 11/16/20 19:08 Consult Physician Routine Consulting Provider: Casi Blake Consult Reason/Comments: wound right leg bka stump Do you want consulting provider notified?: Yes 11/16/20 23:15 Consult Physician Routine Consulting Provider: Eleazar Hurd Consult Reason/Comments: RLE amputation Do you want consulting provider notified?: Yes, Notify in am Primary care physician: Dylan Rothqvi Hospital Course: 11/18/2020, patient seen eval examined Labs reviewed medications reviewed, denies any chest pain, discharge from the wound is much better shortness of breath improved, patient has been evaluated by infectious disease, cardiovascular services, and vascular surgery they recommen ded clear for discharge, patient has her medicines at home she only needs a prescription for Narco, 11/17/2020, patient seen and evaluated examined labs reviewed medications reviewed, at room air patient did desaturate up to 87%, she will require assessment for home oxygen, in the meantime ID service and vascular surgery consultation evaluation pending patient remains on IV antibiotics 11/16/2020, patient seen eval reexamined during the rounds shortness breath stable slightly improved, patient remains on Lasix, patient right stump has been examined there is a large elliptical ulcer is present with purulent discharge and surrounding cellulitis, patient is status post BKA from November [address] Hurd and with prior history of the infection of the stump with VRE, we'll restart IV cephapirin obtain blood culture send wound for culture and sensitivity consult vascular surgery and infectious disease as well This is a 45-year-old morbidly obese female with the history of the nonischemic cardiomyopathy with baseline ejection fraction of 40%, patient has been noting some increase in lower extremity swelling also increasing shortness of breath, decided to come into the hospital, ongoing cough is present her appetite has been poor, she also have mild substernal chest heaviness, however denies any back pain, denies any night sweats fever or chills, denies any history of smoking and nicotine use, she takes oral direct anticoagulants as well as Lantus as needed bronchodilator, prior history is significant for hypertension hypertensive cardiovascular disease seizure disorder, history of the MRSA and status post right sided toe amputation back in April 2016, she is status post to the AICD with biventricular pacing and permanent pacemaker, chest x-ray significant for cardiomegaly interstitial edema, computed tomography scan is negative for pulmonary embolism some atelectasis has been noted, she is negative for influenza A and B as well as [place], urine unremarkable, BNP is over 4500, previous noted to be around 1500, troponin normal, microcytic anemia has been noted with hemoglobin of 8.6 and MCV of 67, Assessment: Acute on chronic hypoxic respirator failure multifactorial related to sepsis chronic systolic heart failure obesity hypoventilation Right lower extremity stump cellulitis and stump infection Acute on chronic systolic heart failure Microcytic anemia Morbid obesity Uncontrolled diabetes Hypertension hypertensive cardiovascular disease Cardiomyopathy nonischemic History of DVT Patient Condition at Discharge: Stable Plan - Discharge Summary Discharge Rx Participant: No New Discharge Prescriptions: Continue Insulin Glargine [Lantus] 25 unit SQ HS Spironolactone [Aldactone] 25 mg PO DAILY Apixaban [Eliquis] 5 mg PO BID Lacosamide [Vimpat] 50 mg PO DAILY Ipratropium-Albuterol Nebulize [Duoneb 0.5 mg-3 mg/3 ml Soln] 3 ml INHALATION RT-QID PRN PRN Reason: Shortness Of Breath Sacubitril/Valsartan [Entresto 24 mg-26 mg Tablet] 1 tab PO BID Omeprazole 20 mg PO DAILY PRN PRN Reason: Heartburn Metoprolol Succinate [Toprol XL] 25 mg PO DAILY Furosemide [Lasix] 40 mg PO BID Escitalopram [Lexapro] 10 mg PO DAILY diphenhydrAMINE [Benadryl] 25 mg PO BID PRN cap PRN Reason: Itching Ibuprofen [Motrin] 400 mg PO Q6HR PRN tab PRN Reason: Mild Pain Or Fever > 100.5 Acetaminophen Tab [Tylenol] 650 mg PO Q6HR PRN tab PRN Reason: Mild Pain Or Fever > 100.5 Gabapentin [Neurontin] 600 mg PO TID #10 tab ALPRAZolam [Xanax] 0.5 mg PO HS #6 tab INSULIN ASPART (NovoLOG) [NovoLOG (formulary)] See Protocol SQ ACHS Discharge Medication List Insulin Glargine [Lantus] 25 unit SQ HS 04/30/19 [History] Spironolactone [Aldactone] 25 mg PO DAILY 07/26/19 [History] Apixaban [Eliquis] 5 mg PO BID 07/27/19 [History] Ipratropium-Albuterol Nebulize [Duoneb 0.5 mg-3 mg/3 ml Soln] 3 ml INHALATION RT-QID PRN 05/21/20 [History] Lacosamide [Vimpat] 50 mg PO DAILY 05/21/20 [History] Escitalopram [Lexapro] 10 mg PO DAILY 10/18/20 [History] Furosemide [Lasix] 40 mg PO BID 10/18/20 [History] Metoprolol Succinate [Toprol XL] 25 mg PO DAILY 10/18/20 [History] Omeprazole 20 mg PO DAILY PRN 10/18/20 [History] Sacubitril/Valsartan [Entresto 24 mg-26 mg Tablet] 1 tab PO BID 10/18/20 [History] ALPRAZolam [Xanax] 0.5 mg PO HS #6 tab 10/22/20 [Rx] Acetaminophen Tab [Tylenol] 650 mg PO Q6HR PRN tab 10/22/20 [Rx] Gabapentin [Neurontin] 600 mg PO TID #10 tab 10/22/20 [Rx] Ibuprofen [Motrin] 400 mg PO Q6HR PRN tab 10/22/20 [Rx] diphenhydrAMINE [Benadryl] 25 mg PO BID PRN cap 10/22/20 [Rx] INSULIN ASPART (NovoLOG) [NovoLOG (formulary)] See Protocol SQ ACHS 11/15/20 [History] Follow up Appointment(s)/Referral(s): Fran Esquivel MD [STAFF PHYSICIAN] - 2 Weeks Dylan Causey MD [Primary Care Provider] - 1-2 days Eleazar Hurd MD [STAFF PHYSICIAN] - 11/25/20 (at [facility]) Jody Mera [NON-STAFF] - Activity/Diet/Wound Care/Special Instructions: Please call [facility] to set up delivery of oxygen concentrator. [facility] will deliver a portable tank to the bedside before discharge. [facility]: [phone]
--- NOTE | 2020-11-18 11:51 | CDI ---
Documentation Clarification Form Date: 11/18/2020 11:22:03 AM From: Malena Espinosa RN, CCDS Admit Date: 11/17/2020 11:26:00 AM Patient Name: Flaca Hinson Visit Number: [id number] Discharge Date: ATTENTION: The Clinical Documentation Specialists (CDI) and [facility] Coding Staff appreciate your assistance in clarifying documentation. Please respond to the clarification below the line at the bottom and electronically sign. The CDI & [facility] Coding staff will review the response and follow-up if needed. Please note: Queries are made part of the Legal Health Record. If you have any questions, please contact the author of this message via ITS. Dr. Jv Hill The patient has uncontrolled diabetes, as indicated in your H/P and subsequent progress notes. Please further specify uncontrolled diabetes. History/Risk Factors: Asthma Heart Failure, COPD, Diabetes Mellitus, hypertension, Seizure disorder Clinical Indicators: 45-year-old female present to ED on 11/15 with complaints of nausea, vomiting, diarrhea, and shortness of breath. She is an insulin dependent diabetic per past medical history. Glucose on arrival on 11/15 was 173, 128, Acetone was negative Treatment: Accucheck (blood glucose per protocol (ACHS) Levemir 25 unit SQHS In order to accurate diagnose patient condition please render your opinion and clarify uncontrolled diabetes mellitus as: DM Type 2 with Hyperglycemia Please document any body system complications or specific manifestations related to the diabetes: Diabetic Autonomic Neuropathy (Last Revision: August 2017) MTDD
[2020-11-18 12:16] LABS: Glucose,Whole Blood 132 mg/dL (75-99)
[2020-11-18] MEDS: COLLAGENASE 250 UNIT/GM OINTMENT 30 GM TUBE TOPICAL SCH (12:25)
--- NOTE | 2020-11-18 13:31 | PN ---
PROGRESS NOTE DATE OF SERVICE: 11/18/2020 REASON FOR FOLLOWUP: Right below-knee amputation stump and left foot wound. INTERVAL HISTORY: The patient is currently afebrile. Patient is breathing comfortably. Overall feeling better on room air. Denies having any chest pain or cough. No abdominal pain or diarrhea. PHYSICAL EXAMINATION: Blood pressure 104/65 with a pulse of 83, temperature 97.6. She is 95% on room air. General appearance is middle-aged female lying in bed in no distress. RESPIRATORY SYSTEM: Unlabored breathing, clear to auscultation anteriorly. HEART: S1, S2. Regular rate and rhythm. ABDOMEN: Soft, no tenderness. LABS: No new labs have been obtained today. Blood culture negative. DIAGNOSTIC IMPRESSION AND PLAN: Patient admitted to the hospital with right below-knee amputation stump wound with evidence of significant cellulitis. Local wound care with to left foot wound. No need for antibiotic on discharge. MMODL / IJN: [id number] /
--- NOTE | 2020-11-18 14:20 | CDI ---
Documentation Clarification Form Date: 11/18/2020 12:10:00 PM From: Malena Espinosa RN, CCDS Admit Date: 11/17/2020 11:26:00 AM Patient Name: Flaca Hinson Visit Number: [id number] Discharge Date: ATTENTION: The Clinical Documentation Specialists (CDI) and [facility] Coding Staff appreciate your assistance in clarifying documentation. Please respond to the clarification below the line at the bottom and electronically sign. The CDI & [facility] Coding staff will review the response and follow-up if needed. Please note: Queries are made part of the Legal Health Record. If you have any questions, please contact the author of this message via ITS. Dr. Jv Hill Your patient has a documented diagnosis of Sepsis- which may lack sufficient clinical evidence/support. History/Risk Factors: Asthma Heart Failure, COPD, Diabetes Mellitus, hypertension, Seizure disorder Clinical Indicators: 45-year-old female present to ED on 11/15 with complaints of nausea, vomiting, diarrhea, and shortness of breath. Patient admitted on 11/17 Vital signs 123/76 86 16 97.6 87 % 11/17 Labs WBC 7.5 HGB 8.4, HCT 28.6, CR 1.06 11/17 Vascular consult: nonhealing ulcer to the right amputation site. There is minimal slough noted within the wound base, minimal drainage. No signs of infection noted, no erythema or induration. Nonhealing ulcer of right lower leg with fat layer exposed 11/17 ID Right BKA stump wound nonhealing. Clinically no evidence of any secondary cellulitis. Patient with left diabetic foot wound with evidence of cellulitis, recommend local wound care. DC antibiotics, no need for any local culture. Treatment: Maxipime 1 gm IVPB Q 12 hrs Apply collagen, feeling with gauze and a border foam gauze. Change MWF. Discharge return to utilize hydrofera Blue saline moistened gauze and a border guaze dressing, with homecare Based on the clinical evidence and your professional judgment, do you feel Sepsis is a valid diagnosis? Yes, Sepsis present/active during this admission as evidence by (please provide additional clinical support): _nausea, vomiting, diarrhea, and shortness of breath. Patient admitted on 11/17 Vital signs 123/76 86 16 97.6 87 % 11/17 Labs WBC 7.5 HGB 8.4, HCT 28.6, CR 1.06 (Last Revision: November 2019) [facility]
== END 2020-11-18 14:14 | disposition home or self-care (01) | DRG 564 ==
LOC: EC 16:01 → 1SOBS 19:58 → OBSVTOIN 11-17 11:26
PROVIDERS: ADMIT Internal Medicine Sleep Medicine; ATTEND Internal Medicine Sleep Medicine
DX: T87.43 Infection of amputation stump, right lower extremity (principal); A41.9 Sepsis, unspecified organism; J96.21 Acute and chronic respiratory failure with hypoxia; I50.23 Acute on chronic systolic (congestive) heart failure; L03.115 Cellulitis of right lower limb; E66.2 Morbid (severe) obesity with alveolar hypoventilation; I42.8 Other cardiomyopathies; L97.912 Non-pressure chronic ulcer of unspecified part of right lower leg with fat layer exposed; J98.11 Atelectasis; Z68.42 Body mass index [BMI] 45.0-49.9, adult; Z20.828 Contact with and (suspected) exposure to other viral communicable diseases; E11.628 Type 2 diabetes mellitus with other skin complications; E11.622 Type 2 diabetes mellitus with other skin ulcer; I11.0 Hypertensive heart disease with heart failure; G40.909 Epilepsy, unspecified, not intractable, without status epilepticus; J44.9 Chronic obstructive pulmonary disease, unspecified; D50.9 Iron deficiency anemia, unspecified; E11.65 Type 2 diabetes mellitus with hyperglycemia; E78.5 Hyperlipidemia, unspecified; I25.2 Old myocardial infarction; R07.9 Chest pain, unspecified; F31.9 Bipolar disorder, unspecified; Z79.01 Long term (current) use of anticoagulants; Z79.4 Long term (current) use of insulin; Z79.899 Other long term (current) drug therapy; Z86.718 Personal history of other venous thrombosis and embolism; Z95.810 Presence of automatic (implantable) cardiac defibrillator; Z91.19 Patient's noncompliance with other medical treatment and regimen; Z91.14 Patient's other noncompliance with medication regimen; Z87.891 Personal history of nicotine dependence; Z86.73 Personal history of transient ischemic attack (TIA), and cerebral infarction without residual deficits; Z87.01 Personal history of pneumonia (recurrent); Z86.14 Personal history of Methicillin resistant Staphylococcus aureus infection; Z88.0 Allergy status to penicillin; Z88.8 Allergy status to other drugs, medicaments and biological substances; Z90.89 Acquired absence of other organs; Z87.898 Personal history of other specified conditions; Z98.890 Other specified postprocedural states; Z82.49 Family history of ischemic heart disease and other diseases of the circulatory system; Z84.1 Family history of disorders of kidney and ureter; Y83.5 Amputation of limb(s) as the cause of abnormal reaction of the patient, or of later complication, without mention of misadventure at the time of the procedure; Y92.9 Unspecified place or not applicable
CPT/HCPCS: 36415; 71046; 71275; 80053; 81001; 82009; 82150; 83690; 83880; 84484; 85025; 85379; 87040; 87636; 93005; 96361; 96374; 96375; 99285

== ENCOUNTER 2020-12-17 19:04 | Inpatient (IN) | payer MEDICARE, OTHER ==
[2020-12-17] MEDS ORDERED: VANCOMYCIN IV PER PHARMACY 1 EACH MISC MISCELLANE PRN (19:50)
[2020-12-17] MEDS ORDERED: VANCOMYCIN 2,000 MG in SODIUM CHLORIDE 0.9% 500 ML 500 ML IVPB ONE (20:15)
[2020-12-17 21:02] LABS: Anisocytosis Slight; Basophils % (A) 1 %; Eosinophils # (A) 0.2 k/uL (0-0.7); Eosinophils % (A) 2 %; HCT 30.5 % (34.0-46.0); HGB 8.3 gm/dL (11.4-16.0); Hypochromasia Marked; Lymphocytes # (A) 1.2 k/uL (1.0-4.8); Lymphocytes % (A) 15 %; MCH 18.4 pg (25.0-35.0); MCHC 27.2 g/dL (31.0-37.0); MCV 67.5 fL (80.0-100.0); Microcytosis Marked; Monocytes # (A) 0.4 k/uL (0-1.0); Monocytes % (A) 5 %; Neutrophils # (A) 5.8 k/uL (1.3-7.7); Neutrophils % (A) 75 %; Platelet Count 449 k/uL (150-450); Poikilocytosis Slight; RBC 4.52 m/uL (3.80-5.40); RDW 19.2 % (11.5-15.5); WBC 7.8 k/uL (3.8-10.6)
--- NOTE | 2020-12-17 21:03 | ED ---
General Adult HPI - General Chief complaint: Recheck/Abnormal Lab/Rx Stated complaint: Left foot wound Time Seen by Provider: 12/17/20 19:15 Source: patient, EMS, RN notes reviewed, old records reviewed Mode of arrival: EMS Limitations: no limitations - History of Present Illness Initial comments: this is a 45-year-old female who has a past medical history significant for diabetes. Patient has a AKA on the right patient has a mid foot and rotation on the left. Patient comes in stating that she has a new wound on the top of her foot at the site of irritation she states she has a chronic wound on the bottom which is getting worse and there is some discharge which is also very malodorous and she says there is a new medial wound on her foot as well per patient states this started about 3 or 4 days ago. Patient denies fever chills. Patient jed es any pain running up the leg or redness running up the leg. Patient denies any calf tenderness. Patient denies any other symptoms at this time. - Related Data Home Medications Medication Instructions Recorded Confirmed Insulin Glargine [Lantus] 25 unit SQ HS 04/30/19 11/15/20 Spironolactone [Aldactone] 25 mg PO DAILY 07/26/19 11/15/20 Apixaban [Eliquis] 5 mg PO BID 07/27/19 11/15/20 Ipratropium-Albuterol Nebulize 3 ml INHALATION RT-QID PRN 05/21/20 11/15/20 [Duoneb 0.5 mg-3 mg/3 ml Soln] Lacosamide [Vimpat] 50 mg PO DAILY 05/21/20 11/15/20 Escitalopram [Lexapro] 10 mg PO DAILY 10/18/20 11/15/20 Furosemide [Lasix] 40 mg PO BID 10/18/20 11/15/20 Metoprolol Succinate [Toprol XL] 25 mg PO DAILY 10/18/20 11/15/20 Omeprazole 20 mg PO DAILY PRN 10/18/20 11/15/20 Sacubitril/Valsartan [Entresto 24 1 tab PO BID 10/18/20 11/15/20 mg-26 mg Tablet] INSULIN ASPART (NovoLOG) [NovoLOG See Protocol SQ ACHS 11/15/20 11/15/20 (formulary)] Previous Rx's Medication Instructions Recorded ALPRAZolam [Xanax] 0.5 mg PO HS #6 tab 10/22/20 Acetaminophen Tab [Tylenol] 650 mg PO Q6HR PRN tab 10/22/20 Gabapentin [Neurontin] 600 mg PO TID #10 tab 10/22/20 Ibuprofen [Motrin] 400 mg PO Q6HR PRN tab 10/22/20 diphenhydrAMINE [Benadryl] 25 mg PO BID PRN cap 10/22/20 Allergies Allergy/AdvReac Type Severity Reaction Status Date / Time Penicillins Allergy Rash/Hives Verified 11/15/20 19:58 ondansetron [From Zofran] AdvReac Nausea & Verified 11/15/20 19:58 Vomiting Review of Systems ROS Statement: Those systems with pertinent positive or pertinent negative responses have been documented in the HPI. ROS Other: All systems not noted in ROS Statement are negative. Past Medical History Past Medical History: Asthma, Heart Failure, COPD, CVA/TIA, Diabetes Mellitus, Hypertension, Myocardial Infarction ([place]), Pneumonia, Seizure Disorder, Seizure Disorder Additional Past Medical History / Comment(s): uses a wheelchair. Last seizure unknown Last Myocardial Infarction Date:: 06/2018 History of Any Multi-Drug Resistant Organisms: MRSA, VRE, VRE Date of last positivie culture/infection: 2016 MDRO Source:: bilat feet Past Surgical History: Adenoidectomy, AICD, Section, Heart Catheteri zation, Orthopedic Surgery, Pacemaker, Tonsillectomy Additional Past Surgical History / Comment(s): AICD - [employer]. has pacemaker defibrillator, right all toe amputated 04/2016, LT GREAT TOE then left foot partial amputation Past Anesthesia/Blood Transfusion Reactions: Postoperative Nausea & Vomiting (PONV) Type of Cardiac Device: Biventricular Pacemaker, Permanent Pacemaker, AICD Device Placement Date:: 2011 Past Psychological History: Bipolar Smoking Status: Former smoker Past Alcohol Use History: None Reported Past Drug Use History: Marijuana - Past Family History Mother Family Medical History: Deep Vein Thrombosis (DVT) Additional Family Medical History / Comment(s): Some type of heart problems, kidney failure. Father History Unknown: Yes Family Medical History: Unable to Obtain Additional Family Medical History / Comment(s): Patient denies knowing any medical history on her father. General Exam - General Exam Comments Initial Comments: GENERAL: Patient is well-developed and well-nourished. Patient is nontoxic and well- hydrated and is in mild distress. ENT: Neck is soft and supple. No significant lymphadenopathy is noted. Oropharynx is clear. Moist mucous membranes. Neck has full range of motion without eliciting any pain. EYES: The sclera were anicteric and conjunctiva were pink and moist. Extraocular movements were intact and pupils were equal round and reactive to light. Eyelids were unremarkable. PULMONARY: Unlabored respirations. Good breath sounds bilaterally. No audible rales rhonchi or wheezing was noted. CARDIOVASCULAR: There is a regular rate and rhythm without any murmurs gallops or rubs. ABDOMEN: Soft and nontender with normal bowel sounds. SKIN: Skin is clear with no lesions or rashes and otherwise unremarkable. NEUROLOGIC: Patient is alert and oriented x3. Cranial nerves II through XII are grossly i ntact. Motor and sensory are also intact. Normal speech, volume and content. Symmetrical smile. MUSCULOSKELETAL: Patient has a AKA on the right and the midfoot indication of the left. Patient has 3 open wounds on the left foot one on the plantar surface one on the dorsal surface one on the medial surface. All 3 are malodorous. LYMPHATICS: No significant lymphadenopathy is noted PSYCHIATRIC: Normal psychiatric evaluation. Limitations: no limitations Course Vital Signs 12/17/20 19:13 Temperature 97.5 F L Pulse Rate 99 Respiratory 16 Rate Blood Pressure 141/87 O2 Sat by Pulse 98 Oximetry Medical Decision Making - Medical Decision Making X-ray of the foot shows no acute abnormality I gave the patient Rocephin and then vancomycin. I spoke with Dr. Tejeda agreed to admit the patient admitted the patient I consulted infectious disease. I continue the vancomycin on the floor. - Lab Data Result diagrams: 12/17/20 20:40 12/17/20 20:40 Lab Results 12/17/20 12/17/20 12/17/20 Range/Units 20:40 20:40 20:40 WBC 7.8 (3.8-10.6) k/uL RBC 4.52 (3.80-5.40) m/uL Hgb 8.3 L (11.4-16.0) gm/dL Hct 30.5 L (34.0-46.0) % MCV 67.5 L (80.0-100.0) fL MCH 18.4 L (25.0-35.0) pg MCHC 27.2 L (31.0-37.0) g/dL RDW 19.2 H (11.5-15.5) % Plt Count 449 (150-450) k/uL MPV 7.0 Neutrophils % 75 % Lymphocytes % 15 % Monocytes % 5 % Eosinophils % 2 % Basophils % 1 % Neutrophils # 5.8 (1.3-7.7) k/uL Lymphocytes # 1.2 (1.0-4.8) k/uL Monocytes # 0.4 (0-1.0) k/uL Eosinophils # 0.2 (0-0.7) k/uL Basophils # 0.0 (0-0.2) k/uL Hypochromasia Marked Poikilocytosis Slight Anisocytosis Slight Microcytosis Marked PT 13.4 H (9.0-12.0) sec INR 1.3 H (<1.2) APTT 24.9 (22.0-30.0) sec Sodium 139 (137-145) mmol/L Potassium 4.5 (3.5-5.1) mmol/L Chloride 104 (98-107) mmol/L Carbon Dioxide 27 (22-30) mmol/L Anion Gap 8 mmol/L BUN 22 H (7-17) mg/dL Creatinine 1.09 H (0.52-1.04) mg/dL Est GFR (CKD-EPI)AfAm 70 (>60 ml/min/1.73 sqM) Est GFR (CKD-EPI)NonAf 61 (>60 ml/min/1.73 sqM) Glucose 119 H (74-99) mg/dL Plasma Lactic Acid Warren (0.7-2.0) mmol/L Calcium 8.5 (8.4-10.2) mg/dL Total Bilirubin 1.1 (0.2-1.3) mg/dL AST 24 (14-36) U/L ALT 12 (4-34) U/L Alkaline Phosphatase 122 (38-126) U/L Total Protein 7.9 (6.3-8.2) g/dL Albumin 3.6 (3.5-5.0) g/dL 12/17/20 Range/Units 20:40 WBC (3.8-10.6) k/uL RBC (3.80-5.40) m/uL Hgb (11.4-16.0) gm/dL Hct (34.0-46.0) % MCV (80.0-100.0) fL MCH (25.0-35.0) pg MCHC (31.0-37.0) g/dL RDW (11.5-15.5) % Plt Count (150-450) k/uL MPV Neutrophils % % Lymphocytes % % Monocytes % % Eosinophils % % Basophils % % Neutrophils # (1.3-7.7) k/uL Lymphocytes # (1.0-4.8) k/uL Monocytes # (0-1.0) k/uL Eosinophils # (0-0.7) k/uL Basophils # (0-0.2) k/uL Hypochromasia Poikilocytosis Anisocytosis Microcytosis PT (9.0-12.0) sec INR (<1.2) APTT (22.0-30.0) sec Sodium (137-145) mmol/L Potassium (3.5-5.1) mmol/L Chloride (98-107) mmol/L Carbon Dioxide (22-30) mmol/L Anion Gap mmol/L BUN (7-17) mg/dL Creatinine (0.52-1.04) mg/dL Est GFR (CKD-EPI)AfAm (>60 ml/min/1.73 sqM) Est GFR (CKD-EPI)NonAf (>60 ml/min/1.73 sqM) Glucose (74-99) mg/dL Plasma Lactic Acid Warren 1.5 (0.7-2.0) mmol/L Calcium (8.4-10.2) mg/dL Total Bilirubin (0.2-1.3) mg/dL AST (14-36) U/L ALT (4-34) U/L Alkaline Phosphatase (38-126) U/L Total Protein (6.3-8.2) g/dL Albumin (3.5-5.0) g/dL Disposition Clinical Impression: Infected wound Disposition: ADMITTED IP TO THIS HOSP Referrals: Dylan Causey MD [Primary Care Provider] - 1-2 days Time of Disposition: 21:17
[2020-12-17 21:07] LABS: INR 1.3 (<1.2); Partial Thromboplastin Time 24.9 sec (22.0-30.0); Prothrombin Time 13.4 sec (9.0-12.0)
[2020-12-17 21:10] LABS: Albumin 3.6 g/dL (3.5-5.0); Calcium 8.5 mg/dL (8.4-10.2); Potassium 4.5 mmol/L (3.5-5.1); Total Bilirubin 1.1 mg/dL (0.2-1.3); Total Protein 7.9 g/dL (6.3-8.2)
--- NOTE | 2020-12-17 21:11 | XR ---
EXAMINATION TYPE: XR foot complete LT DATE OF EXAM: 12/17/2020 COMPARISON: NONE HISTORY: Wound check. Diabetic ulcer. TECHNIQUE: 3 views FINDINGS: There is amputation deformity of the left foot at the base of the metatarsals. There is sof t tissue swelling around the forefoot at the amputation site. There are also craters. There is planta r calcaneal spurring. I see no focal bone destruction. IMPRESSION: Soft tissue swelling. No focal bone destruction seen. Soft tissue swelling increased comp ared to old exam.
[2020-12-17] MEDS ORDERED: SODIUM CHLORIDE 0.9% 1,000 ML IV ONE (21:17)
[2020-12-17] MEDS: SODIUM CHLORIDE 0.9% 500 ML 500 ML IV SCH (21:31)
[2020-12-17 22:57] LABS: Glucose,Whole Blood 99 mg/dL (75-99)
[2020-12-18] MEDS ORDERED: ACETAMINOPHEN TAB 325 MG TAB PO PRN (01:06)
[2020-12-18] MEDS: HYDROmorphone 0.5 MG/0.5 ML SYRINGE IVP PRN ×4 (01:22→21:42)
[2020-12-18] MEDS: diphenhydrAMINE 25 MG CAP PO SCH ×3 (01:23→21:22)
[2020-12-18] MEDS: GABAPENTIN 300 MG CAP PO SCH ×4 (01:23→21:42)
[2020-12-18] MEDS: ALPRAZolam 0.5 MG TAB PO SCH ×2 (01:24→21:22)
[2020-12-18] MEDS: SODIUM CHLORIDE 0.9% 500 ML 500 ML IV SCH (02:13)
[2020-12-18] MEDS: TOPIRAMATE 100 MG TAB PO SCH ×2 (02:42→21:24)
[2020-12-18] MEDS: SACUBITRIL/VALSARTAN 24 MG-26 MG TABLET PO SCH ×3 (02:43→21:25)
[2020-12-18 07:14] LABS: Glucose,Whole Blood 98 mg/dL (75-99)
[2020-12-18] MEDS ORDERED: PANTOPRAZOLE 40 MG TABLET PO SCH (07:30)
[2020-12-18] MEDS: INSULIN ASPART (NovoLOG) 100 UNIT/ML VIAL SQ SCH ×4 (07:41→21:20)
[2020-12-18] MEDS: METOPROLOL SUCCINATE (ER) 25 MG TAB.ER.24H PO SCH (09:11)
[2020-12-18] MEDS: APIXABAN 5 MG TAB PO SCH ×2 (09:11→21:22)
[2020-12-18] MEDS: SPIRONOLACTONE 25 MG TAB PO SCH ×2 (09:11→21:22)
[2020-12-18] MEDS: FUROSEMIDE 40 MG TAB PO SCH ×2 (09:11→21:22)
[2020-12-18] MEDS: ESCITALOPRAM 10 MG TAB PO SCH (09:12)
[2020-12-18 11:26] LABS: Glucose,Whole Blood 136 mg/dL (75-99)
[2020-12-18 14:19] VITALS: BMI 50.1
[2020-12-18] MEDS ORDERED: GABAPENTIN 300 MG CAP PO SCH (16:00)
--- NOTE | 2020-12-18 16:00 | P.HPIM ---
History of Present Illness H&P Date: 12/18/20 Chief Complaint: Leg stump wounds History of presenting complaint: This is a pleasant 45-year-old patient of Dr. Causey. Chronic stable medical conditions include congestive heart failure EF 20% from hypertensive heart disease, AICD, COPD, diabetes mellitus type 2 on insulin, hypertension, possible seizure disorder, peripheral neuropathy secondary to diabetes and multiple toe amputations.. Also has had splenic infarct and cardiac thrombus for which she is on eliquis. Patient now presents with a wound on the right leg stump and also on the left foot stump on the plantar aspect and distal aspect. She states's been draining for a few days. Having some chills decreased appetite tired rundown. Foul- smelling.. Painful. The patient has peripheral neuropathy. Review of systems: GEN.: Tired, chills EYES: None HEENT: None NECK: None RESPIRATORY: None CARDIOVASCULAR: As above GASTROINTESTINAL: None GENITOURINARY: None MUSCULOSKELETAL: Occasional pains in his joints LYMPHATICS: None HEMATOLOGICAL: None PSYCHIATRY: None NEUROLOGICAL: As above Past medical history: COPD X smoker, cardiomyopathy EF less than 20% with a negative cardiac cath felt to be from underlying hypertensive heart disease, stroke, diabetes, hypertension, possible seizure disorder, peripheral neuropathy, some baseline memory and residual speech loss, cardiac thrombus, splenic infarct Social history: Lives with her son. Smoked for many years has not smoked for about 2 years. Did medical marijuana in the past. No alcohol. Family history: DVT and kidney disease Physical examination: VITAL SIGNS: 97.5, 99, 16, 141/87, 98% room air-upon presentation GENERAL: BMI 50.1, laying in bed, tired EYES: Pupils equal. Conjunctiva normal. HEENT: External appearance of nose and ears normal, oral cavity grossly normal. NECK: JVD not raised; masses not palpable. HEART: First and second heart sounds are normal; no edema. LUNGS: Respiratory rate normal; decreased breath sounds. ABDOMEN: Soft, nontender, liver spleen not palpable, no masses palpable. PSYCH: Tired, answering questions NEUROLOGICAL: Cranial nerves grossly intact; no facial asymmetry, decreased sensorium distally LYMPHATICS: No lymph nodes palpable in the axilla and neck EXTREMITIES: There is a wound on the distal stump of the right leg and also wound on the left foot stump on the plantar aspect and the distal aspect. Pictures and be placed in the chart INVESTIGATIONS, reviewed in the clinical context: White count 7.8 hemoglobin 8.3 platelets 449 potassium 4.5 bun 22 creatinine 1.09 Previous testing: Bun 16 creatinine 1.06 on 11/17/2020 Assessment: -Right BKA stump wound with secondary infection and wound on the left foot, draining with a strong anaerobic odor -Chronic Seizure disorder - Chronic congestive heart failure from systolic dysfunction EF 20% from hypertensive heart disease. 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 -Baseline some dysarthria -Morbid obesity BMI 50.1 -Chronic Cardiac thrombus for which patient is on anticoagulation -Chronic kidney disease stage II Plan: Home medications resumed. Accu-Cheks will be followed. Consultation made to infectious disease and Dr. Hurd from vascular. Patient placed on vancomycin. Discussed with patient. Follow Past Medical History Past Medical History: Asthma, Heart Failure, COPD, CVA/TIA, Diabetes Mellitus, Hypertension, Myocardial Infarction ([place]), Pneumonia, Seizure Disorder, Seizure Disorder Additional Past Medical History / Comment(s): uses a wheelchair. Patient states last seizure summer 2019 while she was at [facility] Last Myocardial Infarction Date:: 06/2018 History of Any Multi-Drug Resistant Organisms: MRSA, VRE, VRE Date of last positivie culture/infection: 2016 MDRO Source:: bilat feet Past Surgical History: Adenoidectomy, AICD, Section, Heart Catheterization, Orthopedic Surgery, Pacemaker, Tonsillectomy Additional Past Surgical History / Comment(s): AICD - [employer]. has pacemaker defibrillator, right all toe amputated 04/2016, LT GREAT TOE then left foot partial amputation Past Anesthesia/Blood Transfusion Reactions: Postoperative Nausea & Vomiting (P ONV) Type of Cardiac Device: Biventricular Pacemaker, Permanent Pacemaker, AICD Device Placement Date:: 2011 Past Psychological History: Bipolar Additional Psychological History / Comment(s): Pt resides with her son. She is wheelchair bound/transfers self. She has 2 cats and 2 birds. She has a gl ucometer and nebulizer. Smoking Status: Former smoker Past Alcohol Use History: None Reported Additional Past Alcohol Use History / Comment(s): 18. Past Drug Use History: Marijuana Additional Drug Use History / Comment(s): Pt smokes marijuana at HS for a sleep aide or for pain control - Past Family History Mother Family Medical History: Deep Vein Thrombosis (DVT) Additional Family Medical History / Comment(s): Some type of heart problems, kidney failure. Father History Unknown: Yes Family Medical History: Unable to Obtain Additional Family Medical History / Comment(s): Patient denies knowing any medical history on her father. Medications and Allergies Home Medications Medication Instructions Recorded Confirmed Type Insulin Glargine [Lantus] 25 unit SQ HS 04/30/19 12/17/20 History Spironolactone [Aldactone] 25 mg PO DAILY 07/26/19 12/17/20 History Apixaban [Eliquis] 5 mg PO BID 07/27/19 12/17/20 History Ipratropium-Albuterol Nebulize 3 ml INHALATION RT-QID PRN 05/21/20 12/17/20 History [Duoneb 0.5 mg-3 mg/3 ml Soln] Escitalopram [Lexapro] 10 mg PO DAILY 10/18/20 12/17/20 History Furosemide [Lasix] 40 mg PO BID 10/18/20 12/17/20 History Metoprolol Succinate [Toprol XL] 25 mg PO DAILY 10/18/20 12/17/20 History Omeprazole 20 mg PO DAILY 10/18/20 12/17/20 History Sacubitril/Valsartan [Entresto 24 1 tab PO BID 10/18/20 12/17/20 History mg-26 mg Tablet] ALPRAZolam [Xanax] 0.5 mg PO HS #6 tab 10/22/20 12/17/20 Rx Acetaminophen Tab [Tylenol] 650 mg PO Q6HR PRN tab 10/22/20 12/17/20 Rx Gabapentin [Neurontin] 600 mg PO TID #10 tab 10/22/20 12/17/20 Rx Ibuprofen [Motrin] 400 mg PO Q6HR PRN tab 10/22/20 12/17/20 Rx INSULIN ASPART (NovoLOG) [NovoLOG See Protocol SQ ACHS 11/15/20 12/17/20 History (formulary)] Topiramate [Topiramate ER] 100 mg PO HS 12/17/20 12/17/20 History diphenhydrAMINE [Benadryl] 25 mg PO BID 12/17/20 12/17/20 History Allergies Allergy/AdvReac Type Severity Reaction Status Date / Time Penicillins Allergy Rash/Hives Verified 12/17/20 21:46 ondansetron [From Zofran] AdvReac Nausea & Verified 12/17/20 21:46 Vomiting Physical Exam Vitals: Vital Signs Temp Pulse Pulse Resp BP BP Pulse Ox 12/18/20 13:00 98.0 F 96 12 104/65 96 12/18/20 05:00 97.7 F 72 20 105/68 99 12/17/20 22:58 98 F 108 H 22 160/85 100 12/17/20 21:32 97 18 134/81 100 12/17/20 19:13 97.5 F L 99 16 141/87 98 Intake and Output 12/18/20 12/18/20 12/18/20 06:59 14:59 22:59 Intake Total 240 Balance 240 Intake: Oral 240 Other: # Voids 1 Weight 145.15 kg Results CBC & Chem 7: 12/17/20 20:40 12/17/20 20:40 Labs: Abnormal Lab Results - Last 24 Hours (Table) 12/17/20 12/17/20 12/17/20 Range/Units 20:40 20:40 20:40 Hgb 8.3 L (11.4-16.0) gm/dL Hct 30.5 L (34.0-46.0) % MCV 67.5 L (80.0-100.0) fL MCH 18.4 L (25.0-35.0) pg MCHC 27.2 L (31.0-37.0) g/dL RDW 19.2 H (11.5-15.5) % PT 13.4 H (9.0-12.0) sec INR 1.3 H (<1.2) BUN 22 H (7-17) mg/dL Creatinine 1.09 H (0.52-1.04) mg/dL Glucose 119 H (74-99) mg/dL POC Glucose (mg/dL) (75-99) mg/dL 12/18/20 Range/Units 11:24 Hgb (11.4-16.0) gm/dL Hct (34.0-46.0) % MCV (80.0-100.0) fL MCH (25.0-35.0) pg MCHC (31.0-37.0) g/dL RDW (11.5-15.5) % PT (9.0-12.0) sec INR (<1.2) BUN (7-17) mg/dL Creatinine (0.52-1.04) mg/dL Glucose (74-99) mg/dL POC Glucose (mg/dL) 136 H (75-99) mg/dL Thrombosis Risk Factor Assmnt - Choose All That Apply Each Factor Represents 1 point: Age 41-60 years, Obesity (BMI >25) Thrombosis Risk Factor Assessment Total Risk Factor Score: 2 Thrombosis Risk Factor Assessment Level: Low Risk
[2020-12-18] MEDS: VANCOMYCIN 1,750 MG in SODIUM CHLORIDE 0.9% 500 ML 500 ML IVPB SCH (16:16)
[2020-12-18 17:43] LABS: Glucose,Whole Blood 138 mg/dL (75-99)
[2020-12-18 20:47] LABS: Glucose,Whole Blood 132 mg/dL (75-99)
[2020-12-18] MEDS ORDERED: CEFEPIME 2 GM in SODIUM CHLORIDE 0.9% 100 ML IVPB ONE (21:00)
[2020-12-18] MEDS ORDERED: NON FORMULARY DRUG (Insulin Glargine 100 UNIT/ML Vial) SQ SCH (21:00)
[2020-12-18] MEDS ORDERED: TOPIRAMATE 100 MG TAB PO SCH (21:00)
[2020-12-18] MEDS: INSULIN DETEMIR (LEVEMIR) 100 UNIT/ML SYR SQ SCH (21:21)
--- NOTE | 2020-12-18 23:29 | CONS ---
CONSULTATION This is a 45-year-old female, well known to me from the past. The patient had a right BKA done by me in the past. The patient also had a transmetatarsal amputation done by Dr. Delong in the past. The patient came with an infected wound on the left plantar aspect of the foot with some draining. The patient also has some wound on her right BKA stump. MEDICAL HISTORY: History of diabetes, COPD, cardiomyopathy, hypertension. SURGICAL HISTORY: Patient had an AICD placed in the past, in the past, heart catheterization and pacemaker, right BK amputation and transmetatarsal amputation in the past. PHYSICAL EXAMINATION: NECK: Supple. Trachea central. CHEST: Clear. Femorals are 1+ bilaterally. The patient has a transmetatarsal amputation stump with an open wound on the plantar aspect that is draining some pus and tissue. Right stump has some wound which has been present for some time. PLAN: We will start her on IV antibiotic, deep culture, and patient will need some debridement. Will follow with you. MMODL / IJN: [id number] /
[2020-12-19] MEDS: HYDROmorphone 0.5 MG/0.5 ML SYRINGE IVP PRN ×4 (01:42→21:34)
[2020-12-19 07:18] LABS: Glucose,Whole Blood 91 mg/dL (75-99)
[2020-12-19] MEDS ORDERED: LIDOCAINE 1% (PF) 10 MG/ML (30 ML SDV) SQ ONE (08:00)
[2020-12-19] MEDS: VANCOMYCIN 1,750 MG in SODIUM CHLORIDE 0.9% 500 ML 500 ML IVPB SCH (08:27)
[2020-12-19] MEDS: GABAPENTIN 300 MG CAP PO SCH ×3 (08:37→21:31)
[2020-12-19] MEDS: FUROSEMIDE 40 MG TAB PO SCH ×2 (08:39→21:31)
[2020-12-19] MEDS: METOPROLOL SUCCINATE (ER) 25 MG TAB.ER.24H PO SCH (08:40)
[2020-12-19] MEDS: diphenhydrAMINE 25 MG CAP PO SCH ×2 (08:41→21:31)
[2020-12-19] MEDS: APIXABAN 5 MG TAB PO SCH ×2 (08:43→21:31)
[2020-12-19] MEDS: ESCITALOPRAM 10 MG TAB PO SCH (08:43)
[2020-12-19] MEDS: PANTOPRAZOLE 40 MG TABLET PO SCH (08:44)
[2020-12-19] MEDS: INSULIN ASPART (NovoLOG) 100 UNIT/ML VIAL SQ SCH ×4 (08:45→21:31)
[2020-12-19] MEDS: SACUBITRIL/VALSARTAN 24 MG-26 MG TABLET PO SCH ×2 (10:39→21:31)
[2020-12-19] MEDS: SPIRONOLACTONE 25 MG TAB PO SCH ×2 (10:39→21:31)
[2020-12-19 11:17] LABS: African American GFR (CKD) 56.6 (60.0-200.0); Anion Gap 8.7 mmol/L (4.00-12.00); BUN/Creat Ratio 18.46 Ratio (12.00-20.00); Calcium 8.5 mg/dL (8.7-10.3); Carbon Dioxide 24.3 mmol/L (21.6-31.8); Non-African American GFR(CKD) 48.8 (60.0-200.0); Potassium 5.4 mmol/L (3.5-5.5)
[2020-12-19 11:31] LABS: Glucose,Whole Blood 105 mg/dL (75-99)
[2020-12-19] MEDS: CEFEPIME 2 GM in SODIUM CHLORIDE 0.9% 100 ML IVPB SCH ×2 (12:54→21:31)
--- NOTE | 2020-12-19 16:02 | OP ---
OPERATIVE REPORT PREOPERATIVE DIAGNOSES: 1. Chronic wound, right leg ggith-vfl-frah stump; measurement is 4 x 2 cm. 2. Left foot transmetatarsal foot. The patient has 3 openings, 4 x 2, 3 x 2, 1 x 1 with devitalized tissue. POSTOPERATIVE DIAGNOSES: 1. Chronic wound, right leg mznmj-aub-vnth stump; measurement is 4 x 2 cm. 2. Left foot transmetatarsal foot. The patient has 3 openings, 4 x 2, 3 x 2, 1 x 1 with devitalized tissue. PROCEDURE: Debridement of the wounds, right BKA stump and left transmetatarsal stump. PROCEDURE DESCRIPTION: Left foot was prepped and draped in usual sterile manner and 1% lidocaine was infiltrated. There were open wounds measuring 4 x 2 and 3 x 2 and 1 x 1 with devitalized tissue. Using a sharp knife, we excised all the devitalized tissue from all 3 wounds. There was some bleeding noted at the skin edges, which was cauterized with hand cautery. This debridement was done down to subcutaneous tissue and all the devitalized tissue was removed. Aquacel Silver was applied to the wounds. Dressing applied. Then attention was turned to the right BKA stump. Measurement was 4 x 2 cm. Lidocaine 1% plain was infiltrated. Using a sharp knife, we did the debridement down to subcutaneous tissue. All the devitalized tissue was removed. No active bleeding was noted. Wound was irrigated with saline. After that, Aquacel Silver was applied to the wound. Dressing applied. PLAN: Will change the dressing every 48 hours. Prognosis is guarded for the left transmetatarsal stump. The patient tolerated the procedure well. MMODL / IJN: [id number] /
[2020-12-19 17:23] LABS: Glucose,Whole Blood 94 mg/dL (75-99)
--- NOTE | 2020-12-19 18:08 | PN ---
PROGRESS NOTE DATE OF SERVICE: 12/19/2020 REASON FOR FOLLOWUP: Bilateral lower extremity diabetic wounds and cellulitis. INTERVAL HISTORY: The patient is currently afebrile. The patient is breathing comfortably. Overall pain and discomfort to the leg wounds currently controlled. No chest pain, shortness of breath or cough. No abdominal pain or diarrhea. PHYSICAL EXAMINATION: Blood pressure 100/66, pulse of 83, temperature 97.9. She is 99% on 1 L nasal cannula. General description is a middle-aged female lying in bed in no distress. RESPIRATORY SYSTEM: Unlabored breathing. Clear to auscultation anteriorly. HEART: S1, S2. Regular rate and rhythm. ABDOMEN: Soft. No tenderness. Legs currently dressed up. No obvious drainage on the dressing. DIAGNOSTIC IMPRESSION AND PLAN: Patient admitted to hospital with right BKA stump wound, status post debridement. Culture is pending. another wound to the left foot, status post debridement. Will wait for the culture to finalize. Patient is covered with cefepime and vancomycin; to continue, adjusting further based on culture report. MMODL / IJN: [id number] /
[2020-12-19 20:38] LABS: Glucose,Whole Blood 134 mg/dL (75-99)
[2020-12-19] MEDS: ALPRAZolam 0.5 MG TAB PO SCH (21:31)
[2020-12-19] MEDS: INSULIN DETEMIR (LEVEMIR) 100 UNIT/ML SYR SQ SCH (21:31)
[2020-12-19] MEDS: TOPIRAMATE 100 MG TAB PO SCH (21:31)
--- NOTE | 2020-12-19 21:34 | P.PN ---
Progress Note - Text Progress Note Date: 12/19/20 Chief Complaint: Leg stump wounds History of presenting complaint: This is a pleasant 45-year-old patient of Dr. Causey. Chronic stable medical conditions include congestive heart failure EF 20% from hypertensive heart disease, AICD, COPD, diabetes mellitus type 2 on insulin, hypertension, possible seizure disorder, peripheral neuropathy secondary to diabetes and multiple toe amputations.. Also has had splenic infarct and cardiac thrombus for which she is on eliquis. Patient now presents with a wound on the right leg stump and also on the left foot stump on the plantar aspect and distal aspect. She states's been draining for a few days. Having some chills decreased appetite tired rundown. Foul- smelling.. Painful. The patient has peripheral neuropathy. Patient admitted with wounds both on the right leg stump and the left foot stump. On IV cefepime and IV vancomycin. Today-pain present but better control. Did undergo debridement by Dr. Ko. Review of systems: Was done for constitutional, cardiovascular, GI, pulmonary. relevant finding as above Active Medications Acetaminophen (Acetaminophen Tab 325 Mg Tab) 650 mg PO Q6HR PRN PRN Reason: Fever and/ or Pain Alprazolam (Alprazolam 0.5 Mg Tab) 0.5 mg PO HS [facility] Last Admin: 12/19/20 21:31 Dose: 0.5 mg Documented by: Apixaban (Apixaban 5 Mg Tab) 5 mg PO BID [facility] Last Admin: 12/19/20 21:31 Dose: 5 mg Documented by: Diphenhydramine HCl (Diphenhydramine 25 Mg Cap) 25 mg PO BID [facility] Last Admin: 12/19/20 21:31 Dose: 25 mg Documented by: Escitalopram Oxalate (Escitalopram 10 Mg Tab) 10 mg PO DAILY [facility] Last Admin: 12/19/20 08:43 Dose: 10 mg Documented by: Furosemide (Furosemide 40 Mg Tab) 40 mg PO BID [facility] Last Admin: 12/19/20 21:31 Dose: 40 mg Documented by: Gabapentin (Gabapentin 300 Mg Cap) 600 mg PO TID [facility] Last Admin: 12/19/20 21:31 Dose: 600 mg Documented by: Hydromorphone HCl (Hydromorphone 0.5 Mg/0.5 Ml Syringe) 0.5 mg IVP Q3HR PRN PRN Reason: Pain Last Admin: 12/19/20 14:26 Dose: 0.5 mg Documented by: Vancomycin HCl 1,750 mg/ (Sodium Chloride) 500 mls @ 167 mls/hr IVPB Q16H [facility] Last Admin: 12/19/20 08:27 Dose: 167 mls/hr Documented by: Cefepime HCl 2 gm/ Sodium (Chloride) 100 mls @ 25 mls/hr IVPB Q12HR [facility] Last Admin: 12/19/20 21:31 Dose: 25 mls/hr Documented by: Insulin Aspart (Insulin Aspart (Novolog) 100 Unit/Ml Vial) 0 unit SQ [facility]; Protocol Last Admin: 12/19/20 21:31 Dose: 1 unit Documented by: Insulin Detemir (Insulin Detemir (Levemir) 100 Unit/Ml Syr) 25 unit SQ [facility] Last Admin: 12/19/20 21:31 Dose: 25 unit Documented by: Metoprolol Succinate (Metoprolol Succinate (Er) 25 Mg Tab.Er.24h) 25 mg PO DAILY [facility] Last Admin: 12/19/20 08:40 Dose: 25 mg Documented by: Miscellaneous Information (Vancomycin Trough Due 1 Each Misc) 0 each MISCELLANE DIRECTED ONE Stop: 12/21/20 07:01 Pantoprazole Sodium (Pantoprazole 40 Mg Tablet) 20 mg PO DAILY@0730 [facility] Last Admin: 12/19/20 08:44 Dose: 20 mg Documented by: Sacubitril/Valsartan (Sacubitril/Valsartan 24 Mg-26 Mg Tablet) 1 each PO BID [facility] Last Admin: 12/19/20 21:31 Dose: 1 each Documented by: Spironolactone (Spironolactone 25 Mg Tab) 25 mg PO BID [facility] Last Admin: 12/19/20 21:31 Dose: 25 mg Documented by: Topiramate (Topiramate 100 Mg Tab) 100 mg PO [facility] Last Admin: 12/19/20 21:31 Dose: 100 mg Documented by: Past medical history: COPD X smoker, cardiomyopathy EF less than 20% with a negative cardiac cath felt to be from underlying hypertensive heart disease, stroke, diabetes, hypertension, possible seizure disorder, peripheral neuropathy, some baseline memory and residual speech loss, cardiac thrombus, splenic infarct Social history: Lives with her son. Smoked for many years has not smoked for about 2 years. Did medical marijuana in the past. No alcohol. Family history: DVT and kidney disease Physical examination: VITAL SIGNS: 97.9, 83, 17, 100/66, 99% on 1 L GENERAL: BMI 50.1, laying in bed, awake EYES: Pupils equal. Conjunctiva normal. HEENT: External appearance of nose and ears normal, oral cavity grossly normal. NECK: JVD not raised; masses not palpable. HEART: First and second heart sounds are normal; no edema. LUNGS: Respiratory rate normal; decreased breath sounds. ABDOMEN: Soft, nontender, liver spleen not palpable, no masses palpable. PSYCH: Tired, answering questions NEUROLOGICAL: Cranial nerves grossly intact; no facial asymmetry, decreased s ensorium distally EXTREMITIES: There is a wound on the distal stump of the right leg and also wound on the left foot stump on the plantar aspect and the distal aspect. Pictures and be placed in the chart INVESTIGATIONS, reviewed in the clinical context: Potassium 5.4 creatinine 1.3 White count 7.8 hemoglobin 8.3 platelets 449 potassium 4.5 bun 22 creatinine 1.09 Previous testing: Bun 16 creatinine 1.06 on 11/17/2020 Assessment: -Right BKA stump wound with secondary infection and wound on the left foot, draining with a strong anaerobic odor-status post debridement by Dr. Ko on December 19 -Chronic Seizure disorder - Chronic congestive heart failure from systolic dysfunction EF 20% from hypertensive heart disease. 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 -Baseline some dysarthria -Morbid obesity BMI 50.1 -Chronic Cardiac thrombus for which patient is on anticoagulation -Chronic kidney disease stage II Plan: She'll continue IV cefepime and vancomycin. Local wound care by Dr. Ko. Other medications to continue. Follow
[2020-12-20] MEDS: HYDROmorphone 0.5 MG/0.5 ML SYRINGE IVP PRN ×2 (01:01→09:05)
[2020-12-20] MEDS: VANCOMYCIN 1,750 MG in SODIUM CHLORIDE 0.9% 500 ML 500 ML IVPB SCH ×2 (01:02→15:21)
[2020-12-20 07:09] LABS: Glucose,Whole Blood 111 mg/dL (75-99)
[2020-12-20] MEDS: INSULIN ASPART (NovoLOG) 100 UNIT/ML VIAL SQ SCH ×4 (08:36→20:48)
[2020-12-20] MEDS: APIXABAN 5 MG TAB PO SCH ×2 (09:06→20:48)
[2020-12-20] MEDS: ESCITALOPRAM 10 MG TAB PO SCH (09:07)
[2020-12-20] MEDS: FUROSEMIDE 40 MG TAB PO SCH ×2 (09:07→20:50)
[2020-12-20] MEDS: GABAPENTIN 300 MG CAP PO SCH ×3 (09:07→21:36)
[2020-12-20] MEDS: SPIRONOLACTONE 25 MG TAB PO SCH ×2 (09:07→20:47)
[2020-12-20] MEDS: diphenhydrAMINE 25 MG CAP PO SCH ×2 (09:07→20:47)
[2020-12-20] MEDS: METOPROLOL SUCCINATE (ER) 25 MG TAB.ER.24H PO SCH (09:07)
[2020-12-20] MEDS: PANTOPRAZOLE 40 MG TABLET PO SCH (09:07)
[2020-12-20] MEDS: SACUBITRIL/VALSARTAN 24 MG-26 MG TABLET PO SCH ×2 (09:08→20:48)
[2020-12-20] MEDS: CEFEPIME 2 GM in SODIUM CHLORIDE 0.9% 100 ML IVPB SCH ×2 (09:08→20:48)
[2020-12-20 09:37] LABS: African American GFR (CKD) 51.7 (60.0-200.0); BUN/Creat Ratio 26.43 Ratio (12.00-20.00); Calcium 8.3 mg/dL (8.7-10.3); Non-African American GFR(CKD) 44.6 (60.0-200.0); Potassium 5.1 mmol/L (3.5-5.5)
[2020-12-20 12:29] LABS: Glucose,Whole Blood 142 mg/dL (75-99)
[2020-12-20 17:08] LABS: Glucose,Whole Blood 139 mg/dL (75-99)
--- NOTE | 2020-12-20 20:03 | PN ---
PROGRESS NOTE DATE OF SERVICE: 12/20/2020 REASON FOR FOLLOWUP: 1. Right below-knee amputation stump wound. 2. Left foot wound with secondary infection. INTERVAL HISTORY: The patient is currently afebrile. The patient is breathing comfortably. The patient's pain to the right BKA stump and left foot is currently controlled. No chest pain. No cough. No abdominal pain. No diarrhea. PHYSICAL EXAMINATION: Blood pressure 102/67, pulse of 83, temperature 97.8, she is 98% on 2 L nasal cannula. General description is a middle aged female lying in bed in no distress. Respiratory system: Unlabored breathing. Clear to auscultation anteriorly. Heart S1, S2. Regular rate and rhythm. Abdomen: Soft, no tenderness. Foot wounds are currently dressed. No obvious drainage on the dressing. LABS: BUN of 37, creatinine 1.4. Culture now showing Gram-negative bacilli. DIAGNOSTIC IMPRESSION AND PLAN: Patient with left diabetic foot infection with multiple infected wounds status post debridement. The patient is currently covered with cefepime and vancomycin to continue. Local care to continue as ordered, adjusting antibiotic further based on culture report. Continue supportive care. MMODL / IJN: [id number] /
--- NOTE | 2020-12-20 20:15 | P.PN ---
Progress Note - Text Progress Note Date: 12/20/20 Chief Complaint: Leg stump wounds History of presenting complaint: This is a pleasant 45-year-old patient of Dr. Causey. Chronic stable medical conditions include congestive heart failure EF 20% from hypertensive heart disease, AICD, COPD, diabetes mellitus type 2 on insulin, hypertension, possible seizure disorder, peripheral neuropathy secondary to diabetes and multiple toe amputations.. Also has had splenic infarct and cardiac thrombus for which she is on eliquis. Patient now presents with a wound on the right leg stump and also on the left foot stump on the plantar aspect and distal aspect. She states's been draining for a few days. Having some chills decreased appetite tired rundown. Foul- smelling.. Painful. The patient has peripheral neuropathy. Patient admitted with wounds both on the right leg stump and the left foot stump. On IV cefepime and IV vancomycin. December 19-wound debridement on both the legs carried out out by Dr. Ko Today-decreased pain in the feet. No nausea vomiting. Tolerating a diet. On antibiotics. Review of systems: Was done for constitutional, cardiovascular, GI, pulmonary. relevant finding as above Active Medications Acetaminophen (Acetaminophen Tab 325 Mg Tab) 650 mg PO Q6HR PRN PRN Reason: Fever and/ or Pain Alprazolam (Alprazolam 0.5 Mg Tab) 0.5 mg PO HS [facility] Last Admin: 12/19/20 21:31 Dose: 0.5 mg Documented by: Apixaban (Apixaban 5 Mg Tab) 5 mg PO BID [facility] Last Admin: 12/20/20 09:06 Dose: 5 mg Documented by: Diphenhydramine HCl (Diphenhydramine 25 Mg Cap) 25 mg PO BID [facility] Last Admin: 12/20/20 09:07 Dose: 25 mg Documented by: Escitalopram Oxalate (Escitalopram 10 Mg Tab) 10 mg PO DAILY [facility] Last Admin: 12/20/20 09:07 Dose: 10 mg Documented by: Furosemide (Furosemide 40 Mg Tab) 40 mg PO BID [facility] Last Admin: 12/20/20 09:07 Dose: 40 mg Documented by: Gabapentin (Gabapentin 300 Mg Cap) 600 mg PO TID [facility] Last Admin: 12/20/20 15:21 Dose: 600 mg Documented by: Hydromorphone HCl (Hydromorphone 0.5 Mg/0.5 Ml Syringe) 0.5 mg IVP Q3HR PRN PRN Reason: Pain Last Admin: 12/20/20 09:05 Dose: 0.5 mg Documented by: Vancomycin HCl 1,750 mg/ (Sodium Chloride) 500 mls @ 167 mls/hr IVPB Q16H [facility] Last Admin: 12/20/20 15:21 Dose: 167 mls/hr Documented by: Cefepime HCl 2 gm/ Sodium (Chloride) 100 mls @ 25 mls/hr IVPB Q12HR [facility] Last Admin: 12/20/20 09:08 Dose: 25 mls/hr Documented by: Insulin Aspart (Insulin Aspart (Novolog) 100 Unit/Ml Vial) 0 unit SQ [facility]; Protocol Last Admin: 12/20/20 17:43 Dose: 1 unit Documented by: Insulin Detemir (Insulin Detemir (Levemir) 100 Unit/Ml Syr) 25 unit SQ [facility] Last Admin: 12/19/20 21:31 Dose: 25 unit Documented by: Metoprolol Succinate (Metoprolol Succinate (Er) 25 Mg Tab.Er.24h) 25 mg PO DAILY [facility] Last Admin: 12/20/20 09:07 Dose: 25 mg Documented by: Miscellaneous Information (Vancomycin Trough Due 1 Each Misc) 0 each MISCELLANE DIRECTED ONE Stop: 12/21/20 07:01 Pantoprazole Sodium (Pantoprazole 40 Mg Tablet) 20 mg PO DAILY@0730 [facility] Last Admin: 12/20/20 09:07 Dose: 20 mg Documented by: Sacubitril/Valsartan (Sacubitril/Valsartan 24 Mg-26 Mg Tablet) 1 each PO BID [facility] Last Admin: 12/20/20 09:08 Dose: 1 each Documented by: Spironolactone (Spironolactone 25 Mg Tab) 25 mg PO BID [facility] Last Admin: 12/20/20 09:07 Dose: 25 mg Documented by: Topiramate (Topiramate 100 Mg Tab) 100 mg PO [facility] Last Admin: 12/19/20 21:31 Dose: 100 mg Documented by: Past medical history: COPD X smoker, cardiomyopathy EF less than 20% with a negative cardiac cath felt to be from underlying hypertensive heart disease, stroke, diabetes, hypertension, possible seizure disorder, peripheral neuropathy, some baseline memory and residual speech loss, cardiac thrombus, splenic infarct Social history: Lives with her son. Smoked for many years has not smoked for about 2 years. Did medical marijuana in the past. No alcohol. Family history: DVT and kidney disease Physical examination: VITAL SIGNS: 97.8, 83, 18, 102/67, 98% on 2 L GENERAL: BMI 50.1, laying in bed, awake EYES: Pupils equal. Conjunctiva normal. HEENT: External appearance of nose and ears normal, oral cavity grossly normal. NECK: JVD not raised; masses not palpable. HEART: First and second heart sounds are normal; no edema. LUNGS: Respiratory rate normal; decreased breath sounds. ABDOMEN: Soft, nontender, liver spleen not palpable, no masses palpable. PSYCH: AO 3 NEUROLOGICAL: decreased sensorium distally EXTREMITIES: Dressing on both the stumps INVESTIGATIONS, reviewed in the clinical context: December 20: Potassium 5.1 creatinine 1.4 Potassium 5.4 creatinine 1.3 White count 7.8 hemoglobin 8.3 platelets 449 potassium 4.5 bun 22 creatinine 1.09 Previous testing: Bun 16 creatinine 1.06 on 11/17/2020 Wound culture-left foot- E. coli, providentia rettgeri Wound culture-right leg sxpff-gsmb-uqccpekx bacilli Assessment: -Right BKA stump wound with secondary infection and wound on the left foot, draining with a strong anaerobic odor-status post debridement by Dr. Bowie on December 19 -Chronic Seizure disorder - Chronic congestive heart failure from systolic dysfunction EF 20% from hypertensive heart disease. 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 -Baseline some dysarthria -Morbid obesity BMI 50.1 -Chronic Cardiac thrombus for which patient is on anticoagulation -Chronic kidney disease stage II Plan: continue IV cefepime and vancomycin. Local wound care by Dr. Ko. Other medications to continue. Discussed with the patient.
[2020-12-20 20:40] LABS: Glucose,Whole Blood 137 mg/dL (75-99)
[2020-12-20] MEDS: ALPRAZolam 0.5 MG TAB PO SCH (20:47)
[2020-12-20] MEDS: INSULIN DETEMIR (LEVEMIR) 100 UNIT/ML SYR SQ SCH (20:48)
[2020-12-20] MEDS: TOPIRAMATE 100 MG TAB PO SCH (20:48)
[2020-12-21] MEDS ORDERED: VANCOMYCIN TROUGH DUE 1 EACH MISC MISCELLANE ONE (07:00)
[2020-12-21 07:15] LABS: Glucose,Whole Blood 107 mg/dL (75-99)
[2020-12-21] MEDS: SPIRONOLACTONE 25 MG TAB PO SCH ×2 (08:14→21:14)
[2020-12-21] MEDS: PANTOPRAZOLE 40 MG TABLET PO SCH (08:14)
[2020-12-21] MEDS: GABAPENTIN 300 MG CAP PO SCH ×3 (08:14→22:25)
[2020-12-21] MEDS: VANCOMYCIN 1,750 MG in SODIUM CHLORIDE 0.9% 500 ML 500 ML IVPB SCH (08:14)
[2020-12-21] MEDS: APIXABAN 5 MG TAB PO SCH ×2 (08:15→21:14)
[2020-12-21] MEDS: METOPROLOL SUCCINATE (ER) 25 MG TAB.ER.24H PO SCH (08:15)
[2020-12-21] MEDS: INSULIN ASPART (NovoLOG) 100 UNIT/ML VIAL SQ SCH ×4 (08:15→21:14)
[2020-12-21] MEDS: SACUBITRIL/VALSARTAN 24 MG-26 MG TABLET PO SCH ×2 (08:15→21:15)
[2020-12-21] MEDS: ESCITALOPRAM 10 MG TAB PO SCH (08:15)
[2020-12-21] MEDS: FUROSEMIDE 40 MG TAB PO SCH ×2 (08:15→21:14)
[2020-12-21] MEDS: CEFEPIME 2 GM in SODIUM CHLORIDE 0.9% 100 ML IVPB SCH (08:16)
[2020-12-21] MEDS: diphenhydrAMINE 25 MG CAP PO SCH ×2 (08:16→21:14)
[2020-12-21 08:56] LABS: African American GFR (CKD) 47.6 (60.0-200.0); Non-African American GFR(CKD) 41.1 (60.0-200.0)
[2020-12-21 11:27] LABS: Glucose,Whole Blood 130 mg/dL (75-99)
[2020-12-21] MEDS: HYDROmorphone 0.5 MG/0.5 ML SYRINGE IVP PRN ×2 (16:19→21:21)
[2020-12-21 16:52] LABS: Glucose,Whole Blood 162 mg/dL (75-99)
[2020-12-21] MEDS: ERTAPENEM 1 GM in SODIUM CHLORIDE 0.9% 50 ML IVPB SCH (17:34)
--- NOTE | 2020-12-21 18:29 | PN ---
PROGRESS NOTE DATE OF SERVICE: 12/21/2020 REASON FOR FOLLOWUP: Left diabetic foot wound with cellulitis and right BKA stump wound. INTERVAL HISTORY: The patient is currently afebrile. The patient is breathing comfortably. The patient denies having any chest pain or shortness of breath, cough. No abdominal pain. Pain to the left foot is currently controlled. PHYSICAL EXAMINATION: Blood pressure 142/84, pulse of 83, temperature 98.1. She is 91% on 2 L nasal cannula. General description is a middle-aged female lying in bed in no distress. Respiratory system: Unlabored breathing. Clear to auscultation anteriorly. Heart S1, S2. Regular rate and rhythm. Abdomen soft, no tenderness. LABS: Culture has been finalized with ESBL Klebsiella and no gram-positive. DIAGNOSTIC IMPRESSION AND PLAN: Patient with left diabetic foot infection in this patient status post debridement. Culture with ESBL E coli. Antibiotic will be adjusted to the Invanz 1 g daily, which will be continued through a [facility] for outpatient antibiotics and continue supportive care. MMODL / IJN: [id number] /
--- NOTE | 2020-12-21 18:44 | P.PN ---
Progress Note - Text Progress Note Date: 12/21/20 Chief Complaint: Leg stump wounds History of presenting complaint: This is a pleasant 45-year-old patient of Dr. Causey. Chronic stable medical conditions include congestive heart failure EF 20% from hypertensive heart disease, AICD, COPD, diabetes mellitus type 2 on insulin, hypertension, possible seizure disorder, peripheral neuropathy secondary to diabetes and multiple toe amputations.. Also has had splenic infarct and cardiac thrombus for which she is on eliquis. Patient now presents with a wound on the right leg stump and also on the left foot stump on the plantar aspect and distal aspect. She states's been draining for a few days. Having some chills decreased appetite tired rundown. Foul- smelling.. Painful. The patient has peripheral neuropathy. Patient admitted with wounds both on the right leg stump and the left foot stump. On IV cefepime and IV vancomycin. December 19-wound debridement on both the legs carried out out by Dr. Ko Today-appetite not too good. On antibiotics. Pain control. Review of systems: Was done for constitutional, cardiovascular, GI, pulmonary. relevant finding as above Active Medications Acetaminophen (Acetaminophen Tab 325 Mg Tab) 650 mg PO Q6HR PRN PRN Reason: Fever and/ or Pain Alprazolam (Alprazolam 0.5 Mg Tab) 0.5 mg PO HS [facility] Last Admin: 12/20/20 20:47 Dose: 0.5 mg Documented by: Apixaban (Apixaban 5 Mg Tab) 5 mg PO BID [facility] Last Admin: 12/21/20 08:15 Dose: 5 mg Documented by: Diphenhydramine HCl (Diphenhydramine 25 Mg Cap) 25 mg PO BID [facility] Last Admin: 12/21/20 08:16 Dose: Not Given Documented by: Escitalopram Oxalate (Escitalopram 10 Mg Tab) 10 mg PO DAILY [facility] Last Admin: 12/21/20 08:15 Dose: 10 mg Documented by: Furosemide (Furosemide 40 Mg Tab) 40 mg PO BID [facility] Last Admin: 12/21/20 08:15 Dose: 40 mg Documented by: Gabapentin (Gabapentin 300 Mg Cap) 600 mg PO TID [facility] Last Admin: 12/21/20 15:57 Dose: 600 mg Documented by: Hydromorphone HCl (Hydromorphone 0.5 Mg/0.5 Ml Syringe) 0.5 mg IVP Q3HR PRN PRN Reason: Pain Last Admin: 12/21/20 16:19 Dose: 0.5 mg Documented by: Ertapenem 1 gm/ Sodium (Chloride) 50 mls @ 100 mls/hr IVPB DAILY [facility]; Protocol Last Admin: 12/21/20 17:34 Dose: 100 mls/hr Documented by: Insulin Aspart (Insulin Aspart (Novolog) 100 Unit/Ml Vial) 0 unit SQ [facility]; Protocol Last Admin: 12/21/20 17:34 Dose: 2 unit Documented by: Insulin Detemir (Insulin Detemir (Levemir) 100 Unit/Ml Syr) 25 unit SQ HS [facility] Last Admin: 12/20/20 20:48 Dose: 25 unit Documented by: Metoprolol Succinate (Metoprolol Succinate (Er) 25 Mg Tab.Er.24h) 25 mg PO DAILY [facility] Last Admin: 12/21/20 08:15 Dose: 25 mg Documented by: Pantoprazole Sodium (Pantoprazole 40 Mg Tablet) 20 mg PO DAILY@0730 [facility] Last Admin: 12/21/20 08:14 Dose: 20 mg Documented by: Sacubitril/Valsartan (Sacubitril/Valsartan 24 Mg-26 Mg Tablet) 1 each PO BID [facility] Last Admin: 12/21/20 08:15 Dose: 1 each Documented by: Spironolactone (Spironolactone 25 Mg Tab) 25 mg PO BID [facility] Last Admin: 12/21/20 08:14 Dose: 25 mg Documented by: Topiramate (Topiramate 100 Mg Tab) 100 mg PO [facility] Last Admin: 12/20/20 20:48 Dose: 100 mg Documented by: Past medical history: COPD X smoker, cardiomyopathy EF less than 20% with a negative cardiac cath felt to be from underlying hypertensive heart disease, stroke, diabetes, hypertension, possible seizure disorder, peripheral neuropathy, some baseline memory and residual speech loss, cardiac thrombus, splenic infarct Social history: Lives with her son. Smoked for many years has not smoked for about 2 years. Did medical marijuana in the past. No alcohol. Family history: DVT and kidney disease Physical examination: VITAL SIGNS: 98.1, 86, 16, 142/84, 91% on 2 L GENERAL: BMI 50.1, laying in bed, awake EYES: Pupils equal. Conjunctiva normal. HEENT: External appearance of nose and ears normal, oral cavity grossly normal. NECK: JVD not raised; masses not palpable. HEART: First and second heart sounds are normal; no edema. LUNGS: Respiratory rate normal; decreased breath sounds. ABDOMEN: Soft, nontender, liver spleen not palpable, no masses palpable. PSYCH: AO 3 NEUROLOGICAL: decreased sensorium distally EXTREMITIES: Dressing on both the stumps INVESTIGATIONS, reviewed in the clinical context: December 20: Potassium 5.1 creatinine 1.4 Potassium 5.4 creatinine 1.3 White count 7.8 hemoglobin 8.3 platelets 449 potassium 4.5 bun 22 creatinine 1.09 Previous testing: Bun 16 creatinine 1.06 on 11/17/2020 Wound culture-left foot- E. coli, providentia rettgeri Wound culture-right leg stump-Alcaligen faecalis Assessment: -Right BKA stump wound with secondary infection and wound on the left foot, draining with a strong anaerobic odor-status post debridement by Dr. Bowie on December 19 -Chronic Seizure disorder - Chronic congestive heart failure from systolic dysfunction EF 20% from hypertensive heart disease. 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 -Baseline some dysarthria -Morbid obesity BMI 50.1 -Chronic Cardiac thrombus for which patient is on anticoagulation -Chronic kidney disease stage II Plan: Antibiotic changed to IV ertapenem. PICC line tomorrow. Should be able to go to the [facility] on Tuesday.
[2020-12-21 20:36] LABS: Glucose,Whole Blood 172 mg/dL (75-99)
[2020-12-21] MEDS: INSULIN DETEMIR (LEVEMIR) 100 UNIT/ML SYR SQ SCH (21:14)
[2020-12-21] MEDS: ALPRAZolam 0.5 MG TAB PO SCH (21:14)
[2020-12-21] MEDS: TOPIRAMATE 100 MG TAB PO SCH (21:15)
[2020-12-21] MEDS ORDERED: diphenhydrAMINE 50 MG/ML 1 ML VIAL IVP ONE (22:14)
[2020-12-22 05:37] LABS: Anisocytosis Slight; HCT 30.5 % (34.0-46.0); HGB 8.3 gm/dL (11.4-16.0); Hypochromasia Marked; MCH 18.5 pg (25.0-35.0); MCHC 27.1 g/dL (31.0-37.0); MCV 68.2 fL (80.0-100.0); Mean Platelet Volume 7.1; Microcytosis Marked; Platelet Count 270 k/uL (150-450); Poikilocytosis Slight; RBC 4.48 m/uL (3.80-5.40); RDW 19.8 % (11.5-15.5); WBC 6.7 k/uL (3.8-10.6)
[2020-12-22 07:06] LABS: Glucose,Whole Blood 99 mg/dL (75-99)
[2020-12-22] MEDS: INSULIN ASPART (NovoLOG) 100 UNIT/ML VIAL SQ SCH ×4 (07:11→21:16)
[2020-12-22] MEDS: diphenhydrAMINE 25 MG CAP PO SCH ×2 (07:12→21:10)
[2020-12-22] MEDS: ERTAPENEM 1 GM in SODIUM CHLORIDE 0.9% 50 ML IVPB SCH (07:26)
[2020-12-22] MEDS: PANTOPRAZOLE 40 MG TABLET PO SCH (07:26)
[2020-12-22] MEDS: GABAPENTIN 300 MG CAP PO SCH ×3 (07:27→21:16)
[2020-12-22] MEDS: APIXABAN 5 MG TAB PO SCH ×2 (07:27→21:16)
[2020-12-22] MEDS: FUROSEMIDE 40 MG TAB PO SCH ×2 (07:27→21:16)
[2020-12-22] MEDS: diphenhydrAMINE 50 MG/ML 1 ML VIAL IVP SCH ×2 (07:28→21:16)
[2020-12-22] MEDS: ESCITALOPRAM 10 MG TAB PO SCH (07:29)
[2020-12-22] MEDS: METOPROLOL SUCCINATE (ER) 25 MG TAB.ER.24H PO SCH (08:57)
[2020-12-22] MEDS: HYDROmorphone 0.5 MG/0.5 ML SYRINGE IVP PRN (09:15)
[2020-12-22 09:25] LABS: African American GFR (CKD) 62.3 (60.0-200.0); Albumin 3.3 g/dL (3.80-4.90); Albumin/Globulin Ratio 1.03 (1.60-3.17); Anion Gap 9.3 mmol/L (4.00-12.00); BUN/Creat Ratio 25.83 Ratio (12.00-20.00); Calcium 8.2 mg/dL (8.7-10.3); Carbon Dioxide 24.7 mmol/L (21.6-31.8); Globulin 3.2 g/dL (1.6-3.3); Non-African American GFR(CKD) 53.8 (60.0-200.0); Total Bilirubin 0.7 mg/dL (0.3-1.2); Total Protein 6.5 g/dL (6.2-8.2)
[2020-12-22 11:15] LABS: Glucose,Whole Blood 118 mg/dL (75-99)
[2020-12-22] MEDS: SACUBITRIL/VALSARTAN 24 MG-26 MG TABLET PO SCH ×2 (11:54→21:16)
[2020-12-22] MEDS: SPIRONOLACTONE 25 MG TAB PO SCH ×2 (11:55→21:16)
[2020-12-22] MEDS ORDERED: VANCOMYCIN 1,750 MG in SODIUM CHLORIDE 0.9% 500 ML 500 ML IVPB SCH (13:00)
[2020-12-22 17:17] LABS: Glucose,Whole Blood 122 mg/dL (75-99)
[2020-12-22 20:28] LABS: Glucose,Whole Blood 163 mg/dL (75-99)
[2020-12-22] MEDS: TOPIRAMATE 100 MG TAB PO SCH (21:16)
[2020-12-22] MEDS: ALPRAZolam 0.5 MG TAB PO SCH (21:16)
[2020-12-22] MEDS: INSULIN DETEMIR (LEVEMIR) 100 UNIT/ML SYR SQ SCH (21:17)
--- NOTE | 2020-12-22 21:48 | PN ---
PROGRESS NOTE DATE OF SERVICE: 12/22/2020 REASON FOR FOLLOWUP: Right BKA stump wound and left foot diabetic foot wound with cellulitis. INTERVAL HISTORY: The patient is currently afebrile. The patient is breathing comfortably. Denies having any chest pain or shortness of breath or cough. No abdominal pain or worsening pain to the left foot area. PHYSICAL EXAMINATION: Her blood pressure 110/74 with a pulse of 82, temperature 98.3. She is 99% on 2 L nasal cannula. General description is a middle-aged female lying in bed in no distress. RESPIRATORY SYSTEM: Unlabored breathing. Clear to auscultation anteriorly. HEART: S1, S2. Regular rate and rhythm. ABDOMEN: Soft. No tenderness. Wounds are currently dressed. No drainage on the dressing. LABS: Hemoglobin is 8.3, white count 6.7, BUN of 31, creatinine 1.2. DIAGNOSTIC IMPRESSION AND PLAN: Patient with a left diabetic foot infection. Wound culture now showing Pseudomonas in addition to the ESBL E coli. Invanz will be switched over to meropenem to cover for both pathogens and should cover for the anaerobes as well. The patient will need a PICC line for outpatient antibiotic therapy, planning for at least a 2 to 3 week course. Local care to continue with Aquacel Silver dressing and continue supportive care. MMODL / IJN: [id number] /
[2020-12-23] MEDS ORDERED: MEROPENEM 1 GM in SODIUM CHLORIDE 0.9% 100 ML IVPB ONE ×2
--- NOTE | 2020-12-23 00:31 | P.PN ---
Progress Note - Text Progress Note Date: 12/22/20 Chief Complaint: Leg stump wounds History of presenting complaint: This is a pleasant 45-year-old patient of Dr. Causey. Chronic stable medical conditions include congestive heart failure EF 20% from hypertensive heart disease, AICD, COPD, diabetes mellitus type 2 on insulin, hypertension, possible seizure disorder, peripheral neuropathy secondary to diabetes and multiple toe amputations.. Also has had splenic infarct and cardiac thrombus for which she is on eliquis. Patient now presents with a wound on the right leg stump and also on the left foot stump on the plantar aspect and distal aspect. She states's been draining for a few days. Having some chills decreased appetite tired rundown. Foul- smelling.. Painful. The patient has peripheral neuropathy. Patient admitted with wounds both on the right leg stump and the left foot stump. On IV cefepime and IV vancomycin. December 19-wound debridement on both the legs carried out out by Dr. Ko Today-tolerating some diet. Pain control. Laying in bed. No new issues. Review of systems: Was done for constitutional, cardiovascular, GI, pulmonary. relevant finding as above Active Medications Acetaminophen (Acetaminophen Tab 325 Mg Tab) 650 mg PO Q6HR PRN PRN Reason: Fever and/ or Pain Alprazolam (Alprazolam 0.5 Mg Tab) 0.5 mg PO HS [facility] Last Admin: 12/22/20 21:16 Dose: 0.5 mg Documented by: Apixaban (Apixaban 5 Mg Tab) 5 mg PO BID [facility] Last Admin: 12/22/20 21:16 Dose: 5 mg Documented by: Diphenhydramine HCl (Diphenhydramine 25 Mg Cap) 25 mg PO BID [facility] Last Admin: 12/22/20 21:10 Dose: Not Given Documented by: Diphenhydramine HCl (Diphenhydramine 50 Mg/Ml 1 Ml Vial) 50 mg IVP BID [facility] Stop: 12/23/20 09:01 Last Admin: 12/22/20 21:16 Dose: 50 mg Documented by: Escitalopram Oxalate (Escitalopram 10 Mg Tab) 10 mg PO DAILY [facility] Last Admin: 12/22/20 07:29 Dose: 10 mg Documented by: Furosemide (Furosemide 40 Mg Tab) 40 mg PO BID [facility] Last Admin: 12/22/20 21:16 Dose: 40 mg Documented by: Gabapentin (Gabapentin 300 Mg Cap) 600 mg PO TID [facility] Last Admin: 12/22/20 21:16 Dose: 600 mg Documented by: Hydromorphone HCl (Hydromorphone 0.5 Mg/0.5 Ml Syringe) 0.5 mg IVP Q3HR PRN PRN Reason: Pain Last Admin: 12/22/20 09:15 Dose: 0.5 mg Documented by: Meropenem 1 gm/ Sodium (Chloride) 100 mls @ 33.3 mls/hr IVPB Q8HR [facility]; Protocol Meropenem 1 gm/ Sodium (Chloride) 100 mls @ 200 mls/hr IVPB ONCE ONE; Protocol Stop: 12/23/20 00:29 Last Admin: 12/22/20 23:17 Dose: 200 mls/hr Documented by: Insulin Aspart (Insulin Aspart (Novolog) 100 Unit/Ml Vial) 0 unit SQ [facility]; Protocol Last Admin: 12/22/20 21:16 Dose: 2 unit Documented by: Insulin Detemir (Insulin Detemir (Levemir) 100 Unit/Ml Syr) 25 unit SQ [facility] Last Admin: 12/22/20 21:17 Dose: 25 unit Documented by: Metoprolol Succinate (Metoprolol Succinate (Er) 25 Mg Tab.Er.24h) 25 mg PO DAILY [facility] Last Admin: 12/22/20 08:57 Dose: 25 mg Documented by: Pantoprazole Sodium (Pantoprazole 40 Mg Tablet) 20 mg PO DAILY@0730 [facility] Last Admin: 12/22/20 07:26 Dose: 20 mg Documented by: Sacubitril/Valsartan (Sacubitril/Valsartan 24 Mg-26 Mg Tablet) 1 each PO BID [facility] Last Admin: 12/22/20 21:16 Dose: 1 each Documented by: Spironolactone (Spironolactone 25 Mg Tab) 25 mg PO BID [facility] Last Admin: 12/22/20 21:16 Dose: 25 mg Documented by: Topiramate (Topiramate 100 Mg Tab) 100 mg PO [facility] Last Admin: 12/22/20 21:16 Dose: 100 mg Documented by: Past medical history: COPD X smoker, cardiomyopathy EF less than 20% with a negative cardiac cath felt to be from underlying hypertensive heart disease, stroke, diabetes, hypertension, possible seizure disorder, peripheral neuropathy, some baseline memory and residual speech loss, cardiac thrombus, splenic infarct Social history: Lives with her son. Smoked for many years has not smoked for about 2 years. Did medical marijuana in the past. No alcohol. Family history: DVT and kidney disease Physical examination: VITAL SIGNS: 97.6, 81, 17, 104/56, 99% 2 L GENERAL: BMI 50.1, laying in bed, awake EYES: Pupils equal. Conjunctiva normal. HEENT: External appearance of nose and ears normal, oral cavity grossly normal. NECK: JVD not raised; masses not palpable. HEART: First and second heart sounds are normal; no edema. LUNGS: Respiratory rate normal; decreased breath sounds. ABDOMEN: Soft, nontender, liver spleen not palpable, no masses palpable. PSYCH: AO 3 NEUROLOGICAL: decreased sensorium distally EXTREMITIES: Dressing on both the stumps INVESTIGATIONS, reviewed in the clinical context: December 22: White count 6.7 hemoglobin 8.3 potassium 4 creatinine 1.2 December 20: Potassium 5.1 creatinine 1.4 Potassium 5.4 creatinine 1.3 White count 7.8 hemoglobin 8.3 platelets 449 potassium 4.5 bun 22 creatinine 1.09 Previous testing: Bun 16 creatinine 1.06 on 11/17/2020 Wound culture-left foot- E. coli, providentia rettgeri, Pseudomonas aeruginosa Wound culture-right leg stump-Alcaligen faecalis Assessment: -Right BKA stump wound with secondary infection and wound on the left foot, draining with a strong anaerobic odor-status post debridement by Dr. Bowie on December 19 -Chronic Seizure disorder - Chronic congestive heart failure from systolic dysfunction EF 20% from hypertensive heart disease. 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 -Baseline some dysarthria -Morbid obesity BMI 50.1 -Chronic Cardiac thrombus for which patient is on anticoagulation -Chronic kidney disease stage II Plan: Pending authorization to go to rehab. Discussed with the patient. And the social media marketing specialist. Meropenem per ID for 2-3 weeks.
[2020-12-23 06:58] LABS: Glucose,Whole Blood 109 mg/dL (75-99)
[2020-12-23] MEDS: INSULIN ASPART (NovoLOG) 100 UNIT/ML VIAL SQ SCH ×2 (07:54→13:42)
[2020-12-23] MEDS: HYDROmorphone 0.5 MG/0.5 ML SYRINGE IVP PRN ×2 (08:36→16:30)
[2020-12-23] MEDS: PANTOPRAZOLE 40 MG TABLET PO SCH (08:36)
[2020-12-23] MEDS: SPIRONOLACTONE 25 MG TAB PO SCH (08:36)
[2020-12-23] MEDS: GABAPENTIN 300 MG CAP PO SCH ×2 (08:36→16:24)
[2020-12-23] MEDS: METOPROLOL SUCCINATE (ER) 25 MG TAB.ER.24H PO SCH (08:36)
[2020-12-23] MEDS: APIXABAN 5 MG TAB PO SCH (08:37)
[2020-12-23] MEDS: diphenhydrAMINE 50 MG/ML 1 ML VIAL IVP SCH (08:37)
[2020-12-23] MEDS: diphenhydrAMINE 25 MG CAP PO SCH (08:37)
[2020-12-23] MEDS: FUROSEMIDE 40 MG TAB PO SCH (08:37)
[2020-12-23] MEDS: MEROPENEM 1 GM in SODIUM CHLORIDE 0.9% 100 ML IVPB SCH ×2 (08:37→16:23)
[2020-12-23] MEDS: SACUBITRIL/VALSARTAN 24 MG-26 MG TABLET PO SCH (08:39)
[2020-12-23] MEDS: ESCITALOPRAM 10 MG TAB PO SCH (08:39)
[2020-12-23 11:46] LABS: Glucose,Whole Blood 123 mg/dL (75-99)
[2020-12-23 13:26] VITALS: BP 106/60; PULSE 70; RESP 14
[2020-12-23 13:53] VITALS: TEMP 97.6
--- NOTE | 2020-12-23 15:25 | PN ---
PROGRESS NOTE DATE OF SERVICE: 12/23/2020 REASON FOR FOLLOWUP: 1. Left diabetic foot wound with cellulitis. 2. Right BKA stump wound. INTERVAL HISTORY: The patient is currently afebrile. The patient is breathing comfortably. Denies having any chest pain or any cough. No nausea, no vomiting, no abdominal pain or diarrhea. Pain to the left foot is currently controlled. PHYSICAL EXAMINATION: Blood pressure 106/60 with a pulse of 70, temperature 97.6. She is 100% on 2 L nasal cannula. General description is a middle-aged female lying in bed in no distress. RESPIRATORY SYSTEM: Unlabored breathing. Clear to auscultation anteriorly. HEART: S1, S2. Regular rate and rhythm. ABDOMEN: Soft. No tenderness. Left foot is currently dressed up. No obvious drainage on the dressing. LABS: No new labs have been obtained today. DIAGNOSTIC IMPRESSION AND PLAN: Patient with left diabetic foot wound, multiple status post debridement. Culture with multiple pathogens including ESBL, Klebsiella and Pseudomonas. She is on meropenem 1 gram q.8 hours; to continue for 2 weeks and close outpatient followup. Local care with Aquacel Silver dressing. MMODL / IJN: [id number] /
--- NOTE | 2020-12-23 16:29 | P.DS ---
Providers Date of admission: 12/17/20 21:19 Expected date of discharge: 12/23/20 Attending physician: Kimo Tejeda Consults: 12/17/20 21:17 Consult Physician Urgent Consulting Provider: Casi Blake Consult Reason/Comments: Infected wounds foot Do you want consulting provider notified?: Yes 12/18/20 12:35 Consult Physician Urgent Consulting Provider: Eleazar Hurd Consult Reason/Comments: wounds to right AKA stump and Left foot Do you want consulting provider notified?: Yes Primary care physician: [facility] Course: Chief Complaint: Leg stump wounds History of presenting complaint: This is a pleasant 45-year-old patient of Dr. Causey. Chronic stable medical conditions include congestive heart failure EF 20% from hypertensive heart disease, AICD, COPD, diabetes mellitus type 2 on insulin, hypertension, possible seizure disorder, peripheral neuropathy secondary to diabetes and multiple toe amputations.. Also has had splenic infarct and cardiac thrombus for which she is on eliquis. Patient now presents with a wound on the right leg stump and also on the left foot stump on the plantar aspect and distal aspect. She states's been draining for a few days. Having some chills decreased appetite tired rundown. Foul- smelling.. Painful. The patient has peripheral neuropathy. Patient admitted with wounds both on the right leg stump and the left foot stump. On IV cefepime and IV vancomycin. December 19-wound debridement on both the legs carried out out by Dr. Ko Today-doing much better today. Pain better controlled. Oral intake good. Going to rehab. We'll follow up with Dr. Ko. Was received 3 weeks of IV meropenem as per Dr. Wilson from [place]. Consultation: Dr. Ko from vascular Dr. Blake from [place] Past medical history: COPD X smoker, cardiomyopathy EF less than 20% with a negative cardiac cath felt to be from underlying hypertensive heart disease, stroke, diabetes, hypertension, possible seizure disorder, peripheral neuropathy, some baseline memory and residual speech loss, cardiac thrombus, splenic infarct Social history: Lives with her son. Smoked for many years has not smoked for about 2 years. Did medical marijuana in the past. No alcohol. Family history: DVT and kidney disease Physical examination: VITAL SIGNS: 97.6, 70, 14, 106/60, 100% on 2 L GENERAL: BMI 50.1, sitting up, eating EYES: Pupils equal. Conjunctiva normal. HEENT: External appearance of nose and ears normal, oral cavity grossly normal. NECK: JVD not raised; masses not palpable. HEART: First and second heart sounds are normal; no edema. LUNGS: Respiratory rate normal; decreased breath sounds. ABDOMEN: Soft, nontender, liver spleen not palpable, no masses palpable. PSYCH: AO 3 NEUROLOGICAL: decreased sensorium distally EXTREMITIES: Dressing on both the stumps INVESTIGATIONS, reviewed in the clinical context: December 23: Coronavirus P/Cr-not detected December 22: White count 6.7 hemoglobin 8.3 potassium 4 creatinine 1.2 December 20: Potassium 5.1 creatinine 1.4 Potassium 5.4 creatinine 1.3 White count 7.8 hemoglobin 8.3 platelets 449 potassium 4.5 bun 22 creatinine 1.09 Previous testing: Bun 16 creatinine 1.06 on 11/17/2020 Wound culture-left foot- E. coli, providentia rettgeri, Pseudomonas aeruginosa Wound culture-right leg stump-Alcaligen faecalis Assessment: -Right BKA stump wound with secondary infection and wound on the left foot, draining with a strong anaerobic odor-status post debridement by Dr. Bowie on December 19 -Chronic Seizure disorder - Chronic congestive heart failure from systolic dysfunction EF 20% from hypertensive heart disease. 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 -Baseline some dysarthria -Morbid obesity BMI 50.1 -Chronic Cardiac thrombus for which patient is on anticoagulation -Chronic kidney disease stage II Disposition: [facility] Patient Condition at Discharge: Stable Plan - Discharge Summary Discharge Rx Participant: No New Discharge Prescriptions: New Melatonin 3 mg PO HS #1 tablet Meropenem [Merrem] 1 gm IVPB Q8HR #42 vial Continue Insulin Glargine [Lantus] 25 unit SQ HS Spironolactone [Aldactone] 25 mg PO DAILY Apixaban [Eliquis] 5 mg PO BID Ipratropium-Albuterol Nebulize [Duoneb 0.5 mg-3 mg/3 ml Soln] 3 ml INHALATION RT-QID PRN PRN Reason: Shortness Of Breath Sacubitril/Valsartan [Entresto 24 mg-26 mg Tablet] 1 tab PO BID Omeprazole 20 mg PO DAILY Metoprolol Succinate [Toprol XL] 25 mg PO DAILY Furosemide [Lasix] 40 mg PO BID Escitalopram [Lexapro] 10 mg PO DAILY Ibuprofen [Motrin] 400 mg PO Q6HR PRN tab PRN Reason: Mild Pain Or Fever > 100.5 Acetaminophen Tab [Tylenol] 650 mg PO Q6HR PRN tab PRN Reason: Mild Pain Or Fever > 100.5 INSULIN ASPART (NovoLOG) [NovoLOG (formulary)] See Protocol SQ [facility] diphenhydrAMINE [Benadryl] 25 mg PO BID Topiramate [Topiramate ER] 100 mg PO HS Gabapentin [Neurontin] 600 mg PO TID #9 tab Discontinued ALPRAZolam [Xanax] 0.5 mg PO HS #6 tab Discharge Medication List Insulin Glargine [Lantus] 25 unit SQ HS 04/30/19 [History] Spironolactone [Aldactone] 25 mg PO DAILY 07/26/19 [History] Apixaban [Eliquis] 5 mg PO BID 07/27/19 [History] Ipratropium-Albuterol Nebulize [Duoneb 0.5 mg-3 mg/3 ml Soln] 3 ml INHALATION RT-QID PRN 05/21/20 [History] Escitalopram [Lexapro] 10 mg PO DAILY 10/18/20 [History] Furosemide [Lasix] 40 mg PO BID 10/18/20 [History] Metoprolol Succinate [Toprol XL] 25 mg PO DAILY 10/18/20 [History] Omeprazole 20 mg PO DAILY 10/18/20 [History] Sacubitril/Valsartan [Entresto 24 mg-26 mg Tablet] 1 tab PO BID 10/18/20 [ History] Acetaminophen Tab [Tylenol] 650 mg PO Q6HR PRN tab 10/22/20 [Rx] Ibuprofen [Motrin] 400 mg PO Q6HR PRN tab 10/22/20 [Rx] INSULIN ASPART (NovoLOG) [NovoLOG (formulary)] See Protocol SQ [facility] 11/15/20 [History] Topiramate [Topiramate ER] 100 mg PO HS 12/17/20 [History] diphenhydrAMINE [Benadryl] 25 mg PO BID 12/17/20 [History] Gabapentin [Neurontin] 600 mg PO TID #9 tab 12/23/20 [Rx] Melatonin 3 mg PO HS #1 tablet 12/23/20 [Rx] Meropenem [Merrem] 1 gm IVPB Q8HR #42 vial 12/23/20 [Rx] Follow up Appointment(s)/Referral(s): Dylan Causey MD [Primary Care Provider] - 1-2 days Eleazar Hurd MD [STAFF PHYSICIAN] - 1 Week (wound center) Activity/Diet/Wound Care/Special Instructions: wound center - dr hurd: next week wound care per dr hurd cbc/bmp - weekly -3 weeks
== END 2020-12-23 18:00 | DRG 623 ==
LOC: EC 19:04 → 5NMEDONC 21:19
PROVIDERS: ADMIT Hospitalist; ATTEND Hospitalist
PROC: 0JBR0ZZ Excision of Left Foot Subcutaneous Tissue and Fascia, Open Approach (ICD-10-PCS; principal; 2020-12-19)
PROC: 0JBN0ZZ Excision of Right Lower Leg Subcutaneous Tissue and Fascia, Open Approach (ICD-10-PCS; 2020-12-19)
PROC: 05HF33Z Insertion of Infusion Device into Left Cephalic Vein, Percutaneous Approach (ICD-10-PCS; 2020-12-22)
DX: E11.621 Type 2 diabetes mellitus with foot ulcer (principal); T87.43 Infection of amputation stump, right lower extremity; I13.0 Hypertensive heart and chronic kidney disease with heart failure and stage 1 through stage 4 chronic kidney disease, or unspecified chronic kidney disease; I42.9 Cardiomyopathy, unspecified; Z68.43 Body mass index [BMI] 50.0-59.9, adult; I50.22 Chronic systolic (congestive) heart failure; L03.116 Cellulitis of left lower limb; L97.528 Non-pressure chronic ulcer of other part of left foot with other specified severity; E11.628 Type 2 diabetes mellitus with other skin complications; E11.22 Type 2 diabetes mellitus with diabetic chronic kidney disease; E11.42 Type 2 diabetes mellitus with diabetic polyneuropathy; E66.01 Morbid (severe) obesity due to excess calories; Z79.4 Long term (current) use of insulin; F31.9 Bipolar disorder, unspecified; Z89.432 Acquired absence of left foot; G40.909 Epilepsy, unspecified, not intractable, without status epilepticus; N18.2 Chronic kidney disease, stage 2 (mild); J44.9 Chronic obstructive pulmonary disease, unspecified; Z20.822 Contact with and (suspected) exposure to COVID-19; R47.1 Dysarthria and anarthria; B96.20 Unspecified Escherichia coli [E. coli] as the cause of diseases classified elsewhere; I25.2 Old myocardial infarction; Z87.891 Personal history of nicotine dependence; Z79.899 Other long term (current) drug therapy; Z79.01 Long term (current) use of anticoagulants; Z95.810 Presence of automatic (implantable) cardiac defibrillator; Z86.73 Personal history of transient ischemic attack (TIA), and cerebral infarction without residual deficits; Z87.01 Personal history of pneumonia (recurrent); Z86.14 Personal history of Methicillin resistant Staphylococcus aureus infection; Z98.890 Other specified postprocedural states; Z71.3 Dietary counseling and surveillance; Z99.3 Dependence on wheelchair; Z88.0 Allergy status to penicillin; Z82.49 Family history of ischemic heart disease and other diseases of the circulatory system; Z84.1 Family history of disorders of kidney and ureter
CPT/HCPCS: 36410; 36415; 76937; 80048; 80053; 80202; 82565; 83605; 85025; 85027; 85610; 85730; 87040; 87070; 87075; 87077; 87186; 87205; 87635; 96365; 99285

== ENCOUNTER 2023-05-06 20:48 | Inpatient (IN) | payer MEDICARE ==
[2023-05-06] MEDS ORDERED: MORPHINE SULFATE 4 MG/ML SYRINGE IV STA (21:22)
[2023-05-06] MEDS ORDERED: DIPH,PERTUS(ACELL)TETVAC-LF 0.5 ML VIAL IM ONE (21:22)
[2023-05-06] MEDS ORDERED: VANCOMYCIN IV PER PHARMACY 1 EACH MISC MISCELLANE PRN (21:24)
[2023-05-06] MEDS ORDERED: SODIUM CHLORIDE 0.9% 500 ML 500 ML IV STA (21:24)
[2023-05-06] MEDS ORDERED: VANCOMYCIN 2,500 MG in SODIUM CHLORIDE 0.9% 500 ML 500 ML IVPB ONE (22:00)
[2023-05-06 22:18] LABS: Basophils % (A) 0 %; Eosinophils # (A) 0.3 k/uL (0-0.7); Eosinophils % (A) 1 %; HCT 34.8 % (34.0-46.0); Hypochromasia Moderate; Lymphocytes # (A) 0.7 k/uL (1.0-4.8); Lymphocytes % (A) 3 %; MCH 24.9 pg (25.0-35.0); MCHC 31.6 g/dL (31.0-37.0); MCV 78.8 fL (80.0-100.0); Mean Platelet Volume 9.6; Microcytosis Slight; Monocytes # (A) 0.4 k/uL (0-1.0); Monocytes % (A) 2 %; Neutrophils # (A) 23.1 k/uL (1.3-7.7); Neutrophils % (A) 93 %; Platelet Count 189 k/uL (150-450); RBC 4.42 m/uL (3.80-5.40); WBC 24.7 k/uL (3.8-10.6)
[2023-05-06 22:28] LABS: ALT 113 U/L (4-34); African American GFR (CKD) 44 (>60 ml/min/1.73 sqM); Albumin 3.8 g/dL (3.5-5.0); Anion Gap 16 mmol/L; Blood Urea Nitrogen 69 mg/dL (7-17); Calcium 8.7 mg/dL (8.4-10.2); Carbon Dioxide 17 mmol/L (22-30); Chloride 97 mmol/L (98-107); Glucose 192 mg/dL (74-99); Non-African American GFR(CKD) 38 (>60 ml/min/1.73 sqM); Sodium 130 mmol/L (137-145); Total Protein 7.5 g/dL (6.3-8.2)
[2023-05-06 22:34] LABS: AST 108 U/L (14-36); Alkaline Phosphatase 78 U/L (38-126); Potassium 4.6 mmol/L (3.5-5.1)
[2023-05-06] MEDS ORDERED: diphenhydrAMINE 25 MG CAP PO STA (22:43)
--- NOTE | 2023-05-06 23:10 | XR ---
EXAMINATION TYPE: XR foot limited LT DATE OF EXAM: 05/06/2023 10:53 PM INDICATION: Patient age:Female; 47 years old; Reason for study: eval for osteomyelitis; [facility]. COMPARISON: 12/27/2020 TECHNIQUE: The left foot was examined in the AP, oblique, and lateral projections. FINDINGS/ IMPRESSION: Left midfoot amputation. The amputation site dose is no evidence for osseous erosion to suggest osteo myelitis. There is no evidence of fracture. There is mild soft tissue swelling. No significant change from prior.
[2023-05-07] MEDS ORDERED: NALOXONE 0.4 MG/ML 1 ML VIAL IV PRN (00:24)
[2023-05-07] MEDS ORDERED: DEXTROSE 50% SYRINGE 50 ML IVP PRN ×2 (00:27)
--- NOTE | 2023-05-07 00:28 | ED ---
General Adult HPI - General Chief complaint: Extremity Problem,Nontraumatic Stated complaint: Fall, cellulitis Time Seen by Provider: 05/06/23 21:20 Source: patient, EMS, RN notes reviewed, old records reviewed Mode of arrival: EMS Limitations: no limitations - History of Present Illness Initial comments: Patient is a 47-year-old female who presents emergency Department complaining of left lower extremity pain. Has noticed that for the last 2 days patient has been having left lower leg pain. Does have a wound over the plantar aspect of her left foot. States there is some increased drainage. He has noticed some increased redness of the lower left leg as well. States she has been feeling slightly more weak as well. Denies any fevers. Denies any chest pain or shortness of breath. Patient does have a history of diabetes, COPD, heart failure, hypertension. Is on blood thinning medications chronically. Is concerned there may be an infection. Presents for further evaluation at this time. - Related Data Home Medications Medication Instructions Recorded Confirmed Insulin Glargine [Lantus Vial] 25 unit SQ HS 04/30/19 12/17/20 Spironolactone [Aldactone] 25 mg PO DAILY 07/26/19 12/17/20 Apixaban [Eliquis] 5 mg PO BID 07/27/19 12/17/20 Ipratropium-Albuterol Nebulize 3 ml INHALATION RT-QID PRN 05/21/20 12/17/20 [Duoneb 0.5 mg-3 mg/3 ml Soln] Escitalopram [Lexapro] 10 mg PO DAILY 10/18/20 12/17/20 Furosemide [Lasix] 40 mg PO BID 10/18/20 12/17/20 Metoprolol Succinate [Toprol XL] 25 mg PO DAILY 10/18/20 12/17/20 Omeprazole 20 mg PO DAILY 10/18/20 12/17/20 Sacubitril/Valsartan [Entresto 24 1 tab PO BID 10/18/20 12/17/20 mg-26 mg Tablet] INSULIN ASPART (NovoLOG) [NovoLOG See Protocol SQ ACHS 11/15/20 12/17/20 (formulary)] Topiramate [Topiramate ER 100 mg PO HS 12/17/20 12/17/20 (Sprinkle)] diphenhydrAMINE [Benadryl] 25 mg PO BID 12/17/20 12/17/20 Previous Rx's Medication Instructions Recorded Acetaminophen Tab [Tylenol] 650 mg PO Q6HR PRN tab 10/22/20 Ibuprofen [Motrin] 400 mg PO Q6HR PRN tab 10/22/20 Gabapentin [Neurontin] 600 mg PO TID #9 tab 12/23/20 Melatonin 3 mg PO HS #1 tablet 12/23/20 Meropenem [Merrem] 1 gm IVPB Q8HR #42 vial 12/23/20 Allergies Allergy/AdvReac Type Severity Reaction Status Date / Time Penicillins Allergy Rash/Hives Verified 05/06/23 20:55 ondansetron [From Zofran] AdvReac Nausea & Verified 05/06/23 20:55 Vomiting Review of Systems ROS Statement: Those systems with pertinent positive or pertinent negative responses have been documented in the HPI. Review of Systems: CONST: Denies fever EYES: Denies blurry vision ENT: Denies nasal congestion C/V: Denies Chest pain RESP: Denies shortness of breath GI: Denies abdominal pain : Denies dysuria SKIN: Endorses rash MSK: Endorses leg pain NEURO: Denies headache ROS Other: All systems not noted in ROS Statement are negative. Past Medical History Past Medical History: Asthma, Heart Failure, COPD, CVA/TIA, Diabetes Mellitus, Hypertension, Myocardial Infarction ([place]), Pneumonia, Seizure Disorder, Seizure Disorder Additional Past Medical History / Comment(s): uses a wheelchair. Patient states last seizure summer 2019 while she was at [facility] Last Myocardial Infarction Date:: 06/2018 History of Any Multi-Drug Resistant Organisms: ESBL, VRE, VRE Date of last positivie culture/infection: 12/18/20 ESBL E.coli; 04/22/17 VRE MDRO Source:: ESBL Left foot; VRE Right Foot Past Surgical History: Adenoidectomy, AICD, Section, Heart Catheterization, Orthopedic Surgery, Pacemaker, Tonsillectomy Additional Past Surgical History / Comment(s): AICD - [employer]. has pacemaker defibrillator, right all toe amputated 04/2016, LT GREAT TOE then left foot partial amputation Past Anesthesia/Blood Transfusion Reactions: Postoperative Nausea & Vomiting (PONV) Type of Cardiac Device: Biventricular Pacemaker, Permanent Pacemaker, AICD Device Placement Date:: 2011 Past Psychological History: Bipolar Smoking Status: Former smoker Past Alcohol Use History: None Reported Past Drug Use History: Marijuana - Past Family History Mother Family Medical History: Deep Vein Thrombosis (DVT) Additional Family Medical History / Comment(s): Some type of heart problems, kidney failure. Father History Unknown: Yes Family Medical History: Unable to Obtain Additional Family Medical History / Comment(s): Patient denies knowing any medical history on her father. General Exam - General Exam Comments Initial Comments: General: Appears in no acute distress. HEAD: Normal with no signs of head trauma. EYES: PERRLA, EOMI, conjunctiva normal, no discharge. ENT: Hearing grossly intact, normal oropharynx. RESPIRATORY: Clear breath sounds bilaterally. No wheezes, rales, or rhonchi. C/V: Regular rate and rhythm. S1 and S2 auscultated, no edema, peripheral pulses 2+ and intact throughout ABD: Abd is soft, nontender, nondistended EXT: Prior right leg amputation. Prior left foot partial amputation. SKIN: Patient has purulent discharge coming from an approximate quarter-sized wound located on the plantar aspect of her left foot. She rounding erythema which stretches up the left lower extremity towards the knee. Concern for cellulitis as well as infected wound. NEURO: Alert and Oriented 4. Limitations: no limitations Course Vital Signs 05/06/23 05/06/23 05/07/23 20:55 22:52 00:23 Temperature 97.9 F Pulse Rate 101 H 93 95 Respiratory 20 18 18 Rate Blood Pressure 109/55 115/68 111/71 O2 Sat by Pulse 98 97 92 L Oximetry 05/07/23 05/07/23 00:30 00:40 Temperature Pulse Rate 93 Respiratory 18 Rate Blood Pressure 111/71 118/75 O2 Sat by Pulse 92 L 92 L Oximetry Medical Decision Making - Medical Decision Making Was pt. sent in by a medical professional or institution (, PA, [facility], urgent care, hospital, or usp...) When possible be specific @ -No Did you speak to anyone other than the patient for history (EMS, parent, family, police, friend...)? What history was obtained from this source @ -No Did you review nursing and triage notes (agree or disagree)? Why? @ -I reviewed and agree with nursing and triage notes Were old charts reviewed (outside hosp., previous admission, EMS record, old EKG, old radiological studies, urgent care reports/EKG's, usp records)? Report findings @ -No old charts were reviewed Differential Diagnosis (chest pain, altered mental status, abdominal pain women, abdominal pain men, vaginal bleeding, weakness, fever, dyspnea, syncope, headache, dizziness, GI bleed, back pain, seizure, CVA, palpatations, mental health, musculoskeletal)? @ -Cellulitis, infected wound, abscess, osteomyelitis, dehydration. This is inclusive. EKG interpreted by me (3pts min.). @ -As above X-rays interpreted by me (1pt min.). @ -X-ray reveals the prior amputation but no obvious osteomyelitis. Radiology does read soft tissue swelling. CT interpreted by me (1pt min.). @ -None done U/S interpreted by me (1pt. min.). @ -None done What testing was considered but not performed or refused? (CT, X-rays, U/S, labs)? Why? @ -None What meds were considered but not given or refused? Why? @ -None Did you discuss the management of the patient with other professionals (professionals i.e. , PA, [facility], lab, RT, psych nurse, socially responsible investment adviser, digital media director, teacher, parole or probation officer, lining caser)? Give summary @ -Discussed with the admitting physician, Dr. Tucker who accepted the patient. He requested I start the patient on Ancef. Was smoking cessation discussed for >3mins.? @ -No Was critical care preformed (if so, how long)? @ -No Were there social determinants of health that impacted care today? How? (Homelessness, low income, unemployed, alcoholism, drug addiction, transportation, low edu. Level, literacy, decrease access to med. care, snf, rehab)? @ -No Was there de-escalation of care discussed even if they declined (Discuss DNR or withdrawal of care, Hospice)? DNR status @ -No What co-morbidities impacted this encounter? (DM, HTN, Smoking, COPD, CAD, Cancer, CVA, ARF, Chemo, Hep., AIDS, mental health diagnosis, sleep apnea, morbid obesity)? @ -None Was patient admitted / discharged? Hospital course, mention meds given and route, prescriptions, significant lab abnormalities, going to OR and other pertinent info. @ -Based on the patient's presentation and physical exam, I'm concerned for left leg infection. Patient does have an open wound with purulent drainage. She'll empirically be started on vancomycin. We will obtain basic labs, wound cultures, blood cultures. Vital signs within acceptable limits. She is afebrile. We'll monitor patient's volume status as she does have a history of CHF. She was in agreement this plan. She'll be given analgesia medications as well. Labs remarkable for leukocytosis of 24. The remainder of the labs reveal an AK eye for which she did already receive a 1 L fluid bolus. We will closely monitor volume status as she does have CHF and we don't not want of volume overload her. She was in agreement this plan. Imaging shows no evidence of osteomyelitis. I updated the patient. She'll be admitted at this time. I spoke with the admitting physician, Dr. Tucker who accepted the admission. Requested ID consult which was placed as well as starting the patient on Ancef. Undiagnosed new problem with uncertain prognosis? @ -No Drug Therapy requiring intensive monitoring for toxicity (Heparin, Nitro, Insulin, Cardizem)? @ -No Were any procedures done? @ -No Diagnosis/symptom? @ -Cellulitis, left foot wound, acute kidney injury Acute, or Chronic, or Acute on Chronic? @ -Acute Uncomplicated (without systemic symptoms) or Complicated (systemic symptoms)? @ -Complicated Side effects of treatment? @ -No Exacerbation, Progression, or Severe Exacerbation? @ -No Poses a threat to life or bodily function? How? (Chest pain, [place], [place], pneumonia, PE, COPD, DKA, ARF, appy, cholecystitis, CVA, Diverticulitis, Homicidal, Suicidal, threat to staff... and all critical care pts) @ -Yes - Lab Data Result diagrams: 05/06/23 21:30 05/06/23 21:30 Lab Results 05/06/23 05/06/23 Range/Units 21:30 21:30 WBC 24.7 H (3.8-10.6) k/uL RBC 4.42 (3.80-5.40) m/uL Hgb 11.0 L (11.4-16.0) gm/dL Hct 34.8 (34.0-46.0) % MCV 78.8 L (80.0-100.0) fL MCH 24.9 L (25.0-35.0) pg MCHC 31.6 (31.0-37.0) g/dL RDW 16.0 H (11.5-15.5) % Plt Count 189 (150-450) k/uL MPV 9.6 Neutrophils % 93 % Lymphocytes % 3 % Monocytes % 2 % Eosinophils % 1 % Basophils % 0 % Neutrophils # 23.1 H (1.3-7.7) k/uL Lymphocytes # 0.7 L (1.0-4.8) k/uL Monocytes # 0.4 (0-1.0) k/uL Eosinophils # 0.3 (0-0.7) k/uL Basophils # 0.0 (0-0.2) k/uL Hypochromasia Moderate Microcytosis Slight Sodium 130 L (137-145) mmol/L Potassium 4.6 (3.5-5.1) mmol/L Chloride 97 L (98-107) mmol/L Carbon Dioxide 17 L (22-30) mmol/L Anion Gap 16 mmol/L BUN 69 H (7-17) mg/dL Creatinine 1.57 H (0.52-1.04) mg/dL Est GFR (CKD-EPI)AfAm 44 (>60 ml/min/1.73 sqM) Est GFR (CKD-EPI)NonAf 38 (>60 ml/min/1.73 sqM) Glucose 192 H (74-99) mg/dL Calcium 8.7 (8.4-10.2) mg/dL Total Bilirubin 1.0 (0.2-1.3) mg/dL AST 108 H (14-36) U/L ALT 113 H (4-34) U/L Alkaline Phosphatase 78 (38-126) U/L Total Protein 7.5 (6.3-8.2) g/dL Albumin 3.8 (3.5-5.0) g/dL - EKG Data -: EKG Interpreted by Me EKG Comments: 12-lead Electrocardiogram Interpretation Note EKG was reviewed and interpreted by myself. 12-lead ECG performed at 2246 is interpreted by me as revealing ventricularly paced rhythm at a rate of 94 beats per minute. Left axis deviation. SC interval is 176 ms, QRS duration is 117 ms, QTc is 452 ms.. Isolated T-wave inversion in lead III. There were no acute ST or T wave abnormalities to suggest myocardial ischemia or injury. R wave p rogression across the precordium was satisfactory. By my interpretation this EKG is non-diagnostic for acute ischemia. Disposition Clinical Impression: Cellulitis, Wound of foot, YOLA (acute kidney injury) Disposition: ADMITTED IP TO THIS HOSP Condition: Stable Time of Disposition: 23:55
[2023-05-07] MEDS: APIXABAN 5 MG TAB PO SCH ×3 (00:44→21:05)
[2023-05-07] MEDS: MORPHINE SULFATE 4 MG/ML SYRINGE IV PRN ×3 (07:06→21:55)
[2023-05-07] MEDS: CEFEPIME 2 GM in SODIUM CHLORIDE 0.9% 100 ML IVPB SCH (12:09)
[2023-05-07 12:55] LABS: Anisocytosis Slight; Basophils % (A) 0 %; Eosinophils # (A) 0.1 k/uL (0-0.7); Eosinophils % (A) 0 %; HCT 39.8 % (34.0-46.0); HGB 11.9 gm/dL (11.4-16.0); Hypochromasia Marked; Lymphocytes # (A) 0.7 k/uL (1.0-4.8); Lymphocytes % (A) 4 %; MCH 24.5 pg (25.0-35.0); MCV 81.7 fL (80.0-100.0); Mean Platelet Volume 9.4; Monocytes # (A) 0.5 k/uL (0-1.0); Monocytes % (A) 3 %; Neutrophils # (A) 17.7 k/uL (1.3-7.7); Neutrophils % (A) 91 %; Platelet Count 200 k/uL (150-450); RBC 4.87 m/uL (3.80-5.40); RDW 16.1 % (11.5-15.5); WBC 19.4 k/uL (3.8-10.6)
[2023-05-07 13:10] LABS: African American GFR (CKD) 45 (>60 ml/min/1.73 sqM); Anion Gap 15 mmol/L; Blood Urea Nitrogen 71 mg/dL (7-17); Calcium 8.9 mg/dL (8.4-10.2); Carbon Dioxide 20 mmol/L (22-30); Chloride 98 mmol/L (98-107); Glucose 183 mg/dL (74-99); Non-African American GFR(CKD) 39 (>60 ml/min/1.73 sqM); Potassium 4.4 mmol/L (3.5-5.1); Sodium 133 mmol/L (137-145)
[2023-05-07 13:18] LABS: Glucose,Whole Blood 181 mg/dL (70-110)
[2023-05-07] MEDS: INSULIN ASPART (NovoLOG) 100 UNIT/ML VIAL SQ SCH ×3 (13:20→17:18)
[2023-05-07] MEDS: GABAPENTIN 300 MG CAP PO SCH ×2 (17:03→21:04)
[2023-05-07 17:19] LABS: Glucose,Whole Blood 143 mg/dL (70-110)
[2023-05-07] MEDS: IPRATROPIUM-ALBUTEROL 3 ML NEB INHALATION PRN ×2 (17:51→21:20)
[2023-05-07 20:57] LABS: Glucose,Whole Blood 146 mg/dL (70-110)
[2023-05-07] MEDS ORDERED: VANCOMYCIN 2,000 MG in SODIUM CHLORIDE 0.9% 500 ML 500 ML IVPB SCH (21:00)
[2023-05-07] MEDS: BUMETANIDE 1 MG TAB PO SCH (21:04)
[2023-05-07] MEDS: ALPRAZolam 0.5 MG TAB PO SCH (21:04)
[2023-05-07] MEDS: SACUBITRIL/VALSARTAN 49 MG-51 MG TABLET PO SCH (21:05)
[2023-05-07] MEDS: INSULIN DETEMIR (LEVEMIR) 100 UNIT/ML SYR SQ SCH (21:05)
[2023-05-07] MEDS: METOPROLOL TARTRATE 25 MG TAB PO SCH (21:05)
[2023-05-07] MEDS: diphenhydrAMINE 25 MG CAP PO PRN (21:46)
--- NOTE | 2023-05-07 22:25 | P.HPIM ---
History of Present Illness H&P Date: 05/07/23 Chief Complaint: Left foot pain Patient is a 47-year-old female with a known history of hypertension, diabetes type 2 insulin-dependent, chronic CHF, A-fib on anticoagulation, nonischemic cardiomyopathy status post ICD placement, history of SC, seizure disorder, history of ESBL E. 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 Patient states that her symptoms have been there for almost a week and during the last 2 days with worsening pain. Patient does have left foot plantar wound and is on follow-up with wound care clinic. He is also having increased drainage. Denies any fever. Feels overall weak. Denies any complaints of chest pain or shortness of breath. No nausea vomiting abdominal pain or diarrhea. Foot x-ray showed left midfoot amputation the amputation site there is no evidence for osseous erosion to suggest osteomyelitis. There is no evidence of fracture. There is mild soft tissue swelling. No significant change from prior. EKG showed electronic ventricular paced rhythm. Laboratory data showed WBC 24.7 hemoglobin 11.0 and platelets 189 sodium 130 potassium 4.6 chloride 97 bicarb is 19 BUN 69 and creatinine 1.57 and blood sugar 192 AST 108 ALT 113 and alk phos 78. Patient was afebrile on admission. Tachycardic with heart rate 101. Pulse ox 98% on room air. Review of Systems Constitutional: Patient denies any fever or chills . no Generalized weakness. Abdomen: Patient denied any nausea or vomiting or abd. pain Cardiovascular: Patient denies any chest pain or short of breath no palpitations. Respiratory: patient denied any cough . no sputum production. No shortness of breath Neurologic: Patient denied any numbness or tingling headache. Musculoskeletal: Patient denies any complaints of joint swelling or deformity. Left lower extremity swelling and redness and foot wound. Skin: Negative Psychiatric: Negative Endocrine: No heat or cold intolerance. No recent weight gain. Genitourinary: No dysuria or hematuria. All other 14 point ROS negative except the above Past Medical History Past Medical History: Asthma, Heart Failure, COPD, CVA/TIA, Diabetes Mellitus, Hypertension, Myocardial Infarction ([place]), Pneumonia, Seizure Disorder, Seizure Disorder Additional Past Medical History / Comment(s): uses a wheelchair. 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 has pacemaker defibrillator, right all toe amputated 04/2016, LT GREAT TOE then left foot partial amputation Past Anesthesia/Blood Transfusion Reactions: Postoperative Nausea & Vomiting (PONV) Type of Cardiac Device: Biventricular Pacemaker, Permanent Pacemaker, AICD Device Placement Date:: 2011 Past Psychological History: Bipolar Smoking Status: Former smoker Past Alcohol Use History: None Reported Past Drug Use History: Marijuana - Past Family History Mother Family Medical History: Deep Vein Thrombosis (DVT) Additional Family Medical History / Comment(s): Some type of heart problems, kidney failure. Father History Unknown: Yes Family Medical History: Unable to Obtain Additional Family Medical History / Comment(s): Patient denies knowing any medical history on her father. Medications and Allergies Home Medications Medication Instructions Recorded Confirmed Type Insulin Glargine [Lantus Vial] 10 unit SQ HS 04/30/19 05/07/23 History Apixaban [Eliquis] 5 mg PO BID 07/27/19 05/07/23 History Ipratropium-Albuterol Nebulize 3 ml INHALATION RT-TID PRN 05/21/20 05/07/23 History [Duoneb 0.5 mg-3 mg/3 ml Soln] Gabapentin [Neurontin] 600 mg PO TID #9 tab 12/23/20 05/07/23 Rx ALPRAZolam [Xanax] 0.5 mg PO HS 05/07/23 05/07/23 History Albuterol Sulfate [Albuterol 1 - 2 puff PO RT-Q6H PRN 05/07/23 05/07/23 History Sulfate Hfa] Bumetanide [Bumex] 1 mg PO BID 05/07/23 05/07/23 History Insulin Aspart [NovoLOG Flexpen] See Protocol SQ AC-TID PRN 05/07/23 05/07/23 History Metoprolol Tartrate [Lopressor] 25 mg PO BID 05/07/23 05/07/23 History Sacubitril/Valsartan [Entresto 49 1 tab PO BID 05/07/23 05/07/23 History mg-51 mg Tablet] Allergies Allergy/AdvReac Type Severity Reaction Status Date / Time Penicillins Allergy Rash/Hives Verified 05/06/23 20:55 ondansetron [From Zofran] AdvReac Nausea & Verified 05/06/23 20:55 Vomiting Physical Exam Vitals: Vital Signs Temp Pulse Pulse Resp BP BP Pulse Ox 05/07/23 08:00 97.5 F L 95 18 131/69 91 L 05/07/23 06:00 99 18 117/56 95 05/07/23 05:00 114/65 95 05/07/23 04:00 96 18 94/78 95 05/07/23 03:00 109/71 93 L 05/07/23 02:00 108/69 92 L 05/07/23 01:00 118/75 92 L 05/07/23 00:40 93 18 118/75 92 L 05/07/23 00:30 111/71 92 L 05/07/23 00:23 95 18 111/71 92 L 05/06/23 22:52 93 18 115/68 97 05/06/23 20:55 97.9 F 101 H 20 109/55 98 Intake and Output 05/06/23 05/07/23 05/07/23 22:59 06:59 14:59 Other: Weight 127.006 kg PHYSICAL EXAMINATION: Patient is lying in the bed comfortably, no acute distress, awake alert and oriented.. Morbidly obese. HEENT: Normocephalic. Neck is supple. Pupils reactive. Nostrils clear. Oral cavity is moist. Neck reveals no JVD, carotid bruits, or thyromegaly. CHEST EXAMINATION: Trachea is central. Symmetrical expansion. Lung nieves clear to auscultation and percussion. CARDIAC: Normal S1, S2 with no gallops. No murmurs ABDOMEN: Soft. Bowel sounds present. Nontender. No organomegaly. No abdominal bruits. Extremities: Left lower EXTR swelling 2+ with redness and warmth. Left foot wound is bandaged. Right BKA No clubbing or cyanosis Neurologically awake, alert, oriented x3 with well-coordinated movements. No focal deficits noted Skin: No rash or skin lesions. Psychiatric: Coperative. Nonsuicidal, Musculoskeletal: No joint swelling or deformity. Normal range of motion. Results CBC & Chem 7: 05/07/23 12:40 05/07/23 12:40 Labs: Abnormal Lab Results - Last 24 Hours (Table) 05/06/23 05/06/23 Range/Units 21:30 21:30 WBC 24.7 H (3.8-10.6) k/uL Hgb 11.0 L (11.4-16.0) gm/dL MCV 78.8 L (80.0-100.0) fL MCH 24.9 L (25.0-35.0) pg RDW 16.0 H (11.5-15.5) % Neutrophils # 23.1 H (1.3-7.7) k/uL Lymphocytes # 0.7 L (1.0-4.8) k/uL Sodium 130 L (137-145) mmol/L Chloride 97 L (98-107) mmol/L Carbon Dioxide 17 L (22-30) mmol/L BUN 69 H (7-17) mg/dL Creatinine 1.57 H (0.52-1.04) mg/dL Glucose 192 H (74-99) mg/dL AST 108 H (14-36) U/L ALT 113 H (4-34) U/L Thrombosis Risk Factor Assmnt - DVT/VTE Prophylaxis DVT/VTE Prophylaxis: Pharmacologic Prophylaxis ordered Assessment and Plan Assessment: Left diabetic foot infection and lower extremity cellulitis. Sepsis secondary to above Hypovolemic hyponatremia Acute kidney injury likely prerenal with underlying CKD stage III Mild transaminitis History of left great toe and partial foot amputation Diabetes type 2 insulin-dependent Hypovolemic hyponatremia Nonischemic cardiomyopathy status post ICD placement Paroxysmal atrial fibrillation on anticoagulation with Eliquis Hypertension History SC COPD History of CVA/TIA History of ESBL, VRE foot infections Bipolar disorder Prior history of smoking and marijuana use Plan: Patient will be continued on antibiotics in the form of vancomycin and cefepime. ID consult for evaluation and follow-up blood cultures and wound cultures. Patient was started back on insulin regimen and sliding scale. Continue with anticoagulation with Eliquis and other cardiac medications. Follow-up renal function. Prognosis guarded with mild medical problems and comorbid conditions. Time with Patient: Greater than 30
[2023-05-08] MEDS: CEFEPIME 2 GM in SODIUM CHLORIDE 0.9% 100 ML IVPB SCH ×2 (01:10→10:23)
[2023-05-08] MEDS: MORPHINE SULFATE 4 MG/ML SYRINGE IV PRN (03:10)
[2023-05-08] MEDS: INSULIN ASPART (NovoLOG) 100 UNIT/ML VIAL SQ SCH ×3 (06:06→17:15)
[2023-05-08 06:23] LABS: Glucose,Whole Blood 154 mg/dL (70-110)
--- NOTE | 2023-05-08 06:57 | P.CONS ---
History of Present Illness - Reason for Consult Consult date: 05/07/23 Cellulitis, foot wound Requesting physician: Haroldo Avendano - Chief Complaint Increasing swelling redness of the left leg x few days - History of Present Illness Patient is a 47-year-old female with a past medical history significant for diabetes mellitus patient did have a history of diabetic foot infection requiring right below the knee amputation patient currently has been dealing with a nonhealing wound on the plantar aspect of the left foot with the patient has for more than a year now patient is presenting to the [facility] ER for evaluation of increasing pain and swelling redness to the left lower extremity in this patient's symptom has been getting worse for the last 2 days main symptom remains to be increased swelling and redness to the left leg along with some dull aching pain 6-7 out of 10 no radiation patient denies having any worsening drainage from the left foot plantar wound area has been complaining of some chills on presentation to the hospital the patient was afebrile patient did have a white count 24.7 with a left shift BUN/creatinine has been mildly elevated levels also mildly elevated blood cultures have been obtained which are currently pending patient did have x-ray of the foot no evidence of bony abnormality to suggest osteomyelitis there was mild soft tissue swelling patient was admitted to the hospital started on cefazolin and vancomycin infectious disease was consulted for further management of antibiotic therapy Review of Systems Positive point and negatives has been mentioned in the HPI, complete review of systems was performed and all other systems are negative Past Medical History Past Medical History: Asthma, Heart Failure, COPD, CVA/TIA, Diabetes Mellitus, Hypertension, Myocardial Infarction ([place]), Pneumonia, Seizure Disorder, Seizure Disorder Additional Past Medical History / Comment(s): uses a wheelchair. Patient states last seizure summer 2019 while she was at [facility] Last Myocardial Infarction Date:: 06/2018 History of Any Multi-Drug Resistant Organisms: ESBL, VRE, VRE Year Discovered:: 12/18/20 ESBL E.coli; 04/22/17 VRE MDRO Source:: ESBL Left foot; VRE Right Foot Past Surgical History: Adenoidectomy, AICD, Section, Heart Catheterization, Orthopedic Surgery, Pacemaker, Tonsillectomy Additional Past Surgical History / Comment(s): AICD - [employer]. has pacemaker defibrillator, right all toe amputated 04/2016, LT GREAT TOE then left foot partial amputation Past Anesthesia/Blood Transfusion Reactions: Postoperative Nausea & Vomiting (PONV) Type of Cardiac Device: Biventricular Pacemaker, Permanent Pacemaker, AICD Device Placement Date:: 2011 Past Psychological History: Bipolar Smoking Status: Former smoker Past Alcohol Use History: None Reported Past Drug Use History: Marijuana - Past Family History Mother Family Medical History: Deep Vein Thrombosis (DVT) Additional Family Medical History / Comment(s): Some type of heart problems, kidney failure. Father History Unknown: Yes Family Medical History: Unable to Obtain Additional Family Medical History / Comment(s): Patient denies knowing any medical history on her father. Medications and Allergies Home Medications Medication Instructions Recorded Confirmed Type Insulin Glargine [Lantus Vial] 10 unit SQ HS 04/30/19 05/07/23 History Apixaban [Eliquis] 5 mg PO BID 07/27/19 05/07/23 History Ipratropium-Albuterol Nebulize 3 ml INHALATION RT-TID PRN 05/21/20 05/07/23 History [Duoneb 0.5 mg-3 mg/3 ml Soln] Gabapentin [Neurontin] 600 mg PO TID #9 tab 12/23/20 05/07/23 Rx ALPRAZolam [Xanax] 0.5 mg PO HS 05/07/23 05/07/23 History Albuterol Sulfate [Albuterol 1 - 2 puff PO RT-Q6H PRN 05/07/23 05/07/23 History Sulfate Hfa] Insulin Aspart [NovoLOG Flexpen] See Protocol SQ AC-TID PRN 05/07/23 05/07/23 History Metoprolol Tartrate [Lopressor] 25 mg PO BID 05/07/23 05/07/23 History Sacubitril/Valsartan [Entresto 49 1 tab PO BID 05/07/23 05/07/23 History mg-51 mg Tablet] Acetaminophen Tab [Tylenol] 650 mg PO Q6HR PRN tab 05/13/23 Rx Bumetanide [BUMEX] 0.5 mg PO BID #15 tab 05/13/23 Rx Cephalexin [Keflex] 500 mg PO Q6HR 10 Days #40 cap 05/13/23 Rx Levofloxacin [Levaquin] 500 mg PO DAILY 10 Days #10 tab 05/13/23 Rx Midodrine [ProAmatine] 10 mg PO AC-TID PRN #30 tab 05/13/23 Rx Sodium Bicarbonate Tab 650 mg PO BID #60 tab 05/13/23 Rx diphenhydrAMINE [Benadryl] 25 mg PO TID PRN cap 05/13/23 Rx Allergies Allergy/AdvReac Type Severity Reaction Status Date / Time Penicillins Allergy Rash/Hives Verified 05/06/23 20:55 ondansetron [From Zofran] AdvReac Nausea & Verified 05/06/23 20:55 Vomiting Physical Exam Vitals: Vital Signs Temp Pulse Resp BP Pulse Ox 05/07/23 06:00 99 18 117/56 95 05/07/23 05:00 114/65 95 05/07/23 04:00 96 18 94/78 95 05/07/23 03:00 109/71 93 L 05/07/23 02:00 108/69 92 L 05/07/23 01:00 118/75 92 L 05/07/23 00:40 93 18 118/75 92 L 05/07/23 00:30 111/71 92 L 05/07/23 00:23 95 18 111/71 92 L 05/06/23 22:52 93 18 115/68 97 05/06/23 20:55 97.9 F 101 H 20 109/55 98 Intake and Output 05/06/23 05/07/23 05/07/23 22:59 06:59 14:59 Other: Weight 127.006 kg GENERAL DESCRIPTION: Middle-aged female lying in bed, no distress. No tachypnea or accessory muscle of respiration use. HEENT: Shows Pallor , no scleral icterus. Oral mucous membrane is dry. No pharyngeal erythema or thrush NECK: Trachea central, no thyromegaly. LUNGS: Unlabored breathing. Clear to auscultation anteriorly. No wheeze or crackle. HEART: S1, S2, regular rate and rhythm. No loud murmur ABDOMEN: Soft, no tenderness , guarding or rigidity, no organomegaly EXTREMITIES: Increasing swelling and redness to the left leg which is warm to touch with ulceration on the plantar aspect of the left foot. SKIN: No rash, no masses palpable. NEUROLOGICAL: The patient is awake, alert, oriented x3, mood and affect normal. Results CBC & Chem 7: 05/10/23 05:52 05/12/23 06:15 Labs: Abnormal Lab Results - Last 24 Hours (Table) 05/06/23 05/06/23 Range/Units 21:30 21:30 WBC 24.7 H (3.8-10.6) k/uL Hgb 11.0 L (11.4-16.0) gm/dL MCV 78.8 L (80.0-100.0) fL MCH 24.9 L (25.0-35.0) pg RDW 16.0 H (11.5-15.5) % Neutrophils # 23.1 H (1.3-7.7) k/uL Lymphocytes # 0.7 L (1.0-4.8) k/uL Sodium 130 L (137-145) mmol/L Chloride 97 L (98-107) mmol/L Carbon Dioxide 17 L (22-30) mmol/L BUN 69 H (7-17) mg/dL Creatinine 1.57 H (0.52-1.04) mg/dL Glucose 192 H (74-99) mg/dL AST 108 H (14-36) U/L ALT 113 H (4-34) U/L Assessment and Plan (1) Left leg cellulitis Status: Acute Code(s): L03.116 - CELLULITIS OF LEFT LOWER LIMB SNOMED Code(s): 127765131 (2) Uncontrolled type 2 diabetes mellitus without complication, with long-term current use of insulin Status: Acute Code(s): E11.65 - TYPE 2 DIABETES MELLITUS WITH HYPERGLYCEMIA; Z79.4 - FPC (CURRENT) USE OF INSULIN (3) Wound of foot Status: Acute Code(s): S91.309A - UNSPECIFIED OPEN WOUND, UNSPECIFIED FOOT, INITIAL ENCOUNTER SNOMED Code(s): 507327443 Plan: 1patient presented hospital with extensive left lower extremity cellulitis source is likely left diabetic foot wound and will need to cover for resistant gram-positive as well as gram-negative keeping in mind her chronic history of diabetic foot wound and multiple infection and exposure to antibiotic therapy 2-borderline kidney function and risk of nephrotoxicity 3-vancomycin pharmacy to dose with careful monitoring of her kidney function however discontinue cefazolin start the patient on cefepime to cover for the gram-negative 4-marked area of the redness We will follow on clinical condition and cultures to further adjust medication if needed Thank you for this consultation we will follow the patient along with you Time with Patient: Greater than 30
[2023-05-08] MEDS: APIXABAN 5 MG TAB PO SCH ×2 (09:09→22:25)
[2023-05-08] MEDS ORDERED: SODIUM CHLORIDE 0.9% 250 ML IV SCH (09:15)
[2023-05-08 11:46] LABS: Glucose,Whole Blood 176 mg/dL (70-110)
[2023-05-08 12:33] LABS: Anisocytosis Slight; Basophils % (A) 0 %; Eosinophils # (A) 0.1 k/uL (0-0.7); Eosinophils % (A) 1 %; HCT 35.4 % (34.0-46.0); HGB 10.8 gm/dL (11.4-16.0); Hypochromasia Marked; Lymphocytes # (A) 0.6 k/uL (1.0-4.8); Lymphocytes % (A) 4 %; MCH 24.6 pg (25.0-35.0); MCHC 30.4 g/dL (31.0-37.0); Mean Platelet Volume 9.9; Monocytes # (A) 0.5 k/uL (0-1.0); Monocytes % (A) 4 %; Neutrophils # (A) 11.8 k/uL (1.3-7.7); Neutrophils % (A) 90 %; Platelet Count 190 k/uL (150-450); RBC 4.37 m/uL (3.80-5.40); RDW 16.2 % (11.5-15.5); WBC 13.1 k/uL (3.8-10.6)
[2023-05-08 12:35] LABS: African American GFR (CKD) 25 (>60 ml/min/1.73 sqM); Anion Gap 14 mmol/L; Blood Urea Nitrogen 77 mg/dL (7-17); Calcium 8.1 mg/dL (8.4-10.2); Carbon Dioxide 18 mmol/L (22-30); Chloride 100 mmol/L (98-107); Glucose 150 mg/dL (74-99); Non-African American GFR(CKD) 22 (>60 ml/min/1.73 sqM); Potassium 4.1 mmol/L (3.5-5.1); Sodium 132 mmol/L (137-145)
[2023-05-08] MEDS ORDERED: VANCOMYCIN IV PER PHARMACY 1 EACH MISC MISCELLANE PRN (13:03)
[2023-05-08] MEDS: BUMETANIDE 1 MG TAB PO SCH ×2 (13:17→22:00)
[2023-05-08] MEDS: SACUBITRIL/VALSARTAN 49 MG-51 MG TABLET PO SCH ×2 (13:18→22:00)
[2023-05-08] MEDS: METOPROLOL TARTRATE 25 MG TAB PO SCH ×2 (13:18→22:00)
[2023-05-08] MEDS: GABAPENTIN 300 MG CAP PO SCH ×3 (13:18→22:25)
[2023-05-08 16:17] LABS: Glucose,Whole Blood 145 mg/dL (70-110)
[2023-05-08 20:22] LABS: Glucose,Whole Blood 142 mg/dL (70-110)
[2023-05-08] MEDS ORDERED: DAPTOmycin 500 MG in SODIUM CHLORIDE 0.9% 50 ML IVPB SCH (21:00)
[2023-05-08] MEDS: ALPRAZolam 0.5 MG TAB PO SCH (22:00)
[2023-05-08] MEDS: CEFEPIME 1 GM in SODIUM CHLORIDE 0.9% 50 ML IVPB SCH (22:25)
[2023-05-08] MEDS: INSULIN DETEMIR (LEVEMIR) 100 UNIT/ML SYR SQ SCH (22:26)
--- NOTE | 2023-05-08 22:26 | P.PN ---
Subjective Progress Note Date: 05/08/23 Patient is a 47-year-old female with a known history of hypertension, diabetes type 2 insulin-dependent, chronic CHF, A-fib on anticoagulation, nonischemic cardiomyopathy status post ICD placement, history of [place], seizure disorder, history of ESBL E. 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 Patient states that her symptoms have been there for almost a week and during the last 2 days with worsening pain. Patient does have left foot plantar wound and is on follow-up with wound care clinic. He is also having increased drainage. Denies any fever. Feels overall weak. Denies any complaints of chest pain or shortness of breath. No nausea vomiting abdominal pain or diarrhea. Foot x-ray showed left midfoot amputation the amputation site there is no evidence for osseous erosion to suggest osteomyelitis. There is no evidence of fracture. There is mild soft tissue swelling. No significant change from prior. EKG showed electronic ventricular paced rhythm. Laboratory data showed WBC 24.7 hemoglobin 11.0 and platelets 189 sodium 130 potassium 4.6 chloride 97 bicarb is 19 BUN 69 and creatinine 1.57 and blood sugar 192 AST 108 ALT 113 and alk phos 78. Patient was afebrile on admission. Tachycardic with heart rate 101. Pulse ox 98% on room air. 05/08/2023. Patient is lying in the bed. Awake alert and oriented x3. No complaints of chest pain or shortness of breath. Afebrile. Patient is hypotensive this morning with SBP in 60s. Patient was given 250 cc fluid bolus. Limit narcotic pain medications. Left lower extremity redness and swelling is still present. Blood pressure medications also on hold due to hypotension. Otherwise laboratory data showed WBC count improved to 13.1 hemoglobin 10.8 and platelets 190 Sodium 132 potassium 4.1 chloride 100 bicarb is 18 BUN 77 creatinine 2.51 and blood sugar is 150. Calcium 8.1. Patient is being continued on antibiotics cefepime and daptomycin. ID is on board. Current medications reviewed. Objective - Vital Signs Vital signs: Vital Signs Temp 97.6 F 05/08/23 13:43 Pulse 67 05/08/23 13:43 Resp 17 05/08/23 13:43 BP 94/61 05/08/23 13:43 Pulse Ox 97 05/08/23 13:43 FiO2 Intake & Output 05/07/23 05/08/23 05/08/23 18:59 06:59 18:59 Weight 127.006 kg Other: Voiding Method Diaper Diaper Diaper Incontinent Incontinent Incontinent External Catheter External Catheter External Catheter # Voids 1 1 2 - Exam PHYSICAL EXAMINATION: Patient is lying in the bed comfortably, no acute distress, awake alert and oriented.. Morbidly obese. HEENT: Normocephalic. Neck is supple. Pupils reactive. Nostrils clear. Oral cavity is moist. Neck reveals no JVD, carotid bruits, or thyromegaly. CHEST EXAMINATION: Trachea is central. Symmetrical expansion. Lung nieves clear to auscultation and percussion. CARDIAC: Normal S1, S2 with no gallops. No murmurs ABDOMEN: Soft. Bowel sounds present. Nontender. No organomegaly. No abdominal bruits. Extremities: Left lower EXTR swelling 2+ with redness and warmth. Left foot wound is bandaged. Right BKA No clubbing or cyanosis Neurologically awake, alert, oriented x3 with well-coordinated movements. No focal deficits noted Skin: No rash or skin lesions. Psychiatric: Coperative. Nonsuicidal, Musculoskeletal: No joint swelling or deformity. Normal range of motion. - Labs CBC & Chem 7: 05/08/23 11:38 05/08/23 11:38 Labs: Abnormal Lab Results - Last 24 Hours (Table) 05/07/23 05/07/23 05/08/23 Range/Units 15:39 20:54 06:21 WBC (3.8-10.6) k/uL Hgb (11.4-16.0) gm/dL MCH (25.0-35.0) pg MCHC (31.0-37.0) g/dL RDW (11.5-15.5) % Neutrophils # (1.3-7.7) k/uL Lymphocytes # (1.0-4.8) k/uL Sodium (137-145) mmol/L Carbon Dioxide (22-30) mmol/L BUN (7-17) mg/dL Creatinine (0.52-1.04) mg/dL Glucose (74-99) mg/dL POC Glucose (mg/dL) 146 H 154 H (70-110) mg/dL Hemoglobin A1c 6.5 H (<=6.0) % Calcium (8.4-10.2) mg/dL 05/08/23 05/08/23 05/08/23 Range/Units 11:38 11:38 11:44 WBC 13.1 H (3.8-10.6) k/uL Hgb 10.8 L (11.4-16.0) gm/dL MCH 24.6 L (25.0-35.0) pg MCHC 30.4 L (31.0-37.0) g/dL RDW 16.2 H (11.5-15.5) % Neutrophils # 11.8 H (1.3-7.7) k/uL Lymphocytes # 0.6 L (1.0-4.8) k/uL Sodium 132 L (137-145) mmol/L Carbon Dioxide 18 L (22-30) mmol/L BUN 77 H (7-17) mg/dL Creatinine 2.51 H (0.52-1.04) mg/dL Glucose 150 H (74-99) mg/dL POC Glucose (mg/dL) 176 H (70-110) mg/dL Hemoglobin A1c (<=6.0) % Calcium 8.1 L (8.4-10.2) mg/dL 05/08/23 Range/Units 16:15 WBC (3.8-10.6) k/uL Hgb (11.4-16.0) gm/dL MCH (25.0-35.0) pg MCHC (31.0-37.0) g/dL RDW (11.5-15.5) % Neutrophils # (1.3-7.7) k/uL Lymphocytes # (1.0-4.8) k/uL Sodium (137-145) mmol/L Carbon Dioxide (22-30) mmol/L BUN (7-17) mg/dL Creatinine (0.52-1.04) mg/dL Glucose (74-99) mg/dL POC Glucose (mg/dL) 145 H (70-110) mg/dL Hemoglobin A1c (<=6.0) % Calcium (8.4-10.2) mg/dL Microbiology - Last 24 Hours (Table) 05/06/23 21:30 Gram Stain - Final Foot - Left Wound Culture - Final 05/06/23 21:30 Blood Culture - Preliminary Blood 05/06/23 21:30 Blood Culture - Preliminary Blood Assessment and Plan Assessment: Left diabetic foot infection and lower extremity cellulitis. Sepsis secondary to above Hypovolemic hyponatremia Acute kidney injury likely prerenal with underlying CKD stage III Mild transaminitis History of left great toe and partial foot amputation Diabetes type 2 insulin-dependent Hypovolemic hyponatremia Nonischemic cardiomyopathy status post ICD placement Paroxysmal atrial fibrillation on anticoagulation with Eliquis Hypertension History [place] COPD History of CVA/TIA History of ESBL, VRE foot infections Bipolar disorder Prior history of smoking and marijuana use Plan: Patient will be continued on antibiotics in the form of vancomycin, chnaged to Dapto and cefepime. ID is following. follow-up blood cultures and wound cultures. Patient was started back on insulin regimen and sliding scale. Continue with anticoagulation with Eliquis and other cardiac medications. Follow-up renal function. Blood pressure medications on hold today due to hypotension. Prognosis guarded with mild medical problems and comorbid conditions. Time with Patient: Greater than 30
[2023-05-09] MEDS: ACETAMINOPHEN TAB 325 MG TAB PO PRN (02:35)
[2023-05-09 05:55] LABS: Glucose,Whole Blood 147 mg/dL (70-110)
[2023-05-09] MEDS: INSULIN ASPART (NovoLOG) 100 UNIT/ML VIAL SQ SCH ×3 (06:28→17:04)
[2023-05-09 08:29] LABS: African American GFR (CKD) 25 (>60 ml/min/1.73 sqM); Anion Gap 11 mmol/L; Blood Urea Nitrogen 89 mg/dL (7-17); Calcium 7.9 mg/dL (8.4-10.2); Carbon Dioxide 18 mmol/L (22-30); Chloride 101 mmol/L (98-107); Glucose 120 mg/dL (74-99); Non-African American GFR(CKD) 21 (>60 ml/min/1.73 sqM); Potassium 3.8 mmol/L (3.5-5.1); Sodium 130 mmol/L (137-145)
[2023-05-09] MEDS: GABAPENTIN 300 MG CAP PO SCH ×3 (09:48→20:13)
[2023-05-09] MEDS: METOPROLOL TARTRATE 25 MG TAB PO SCH (09:48)
[2023-05-09] MEDS: BUMETANIDE 1 MG TAB PO SCH ×2 (09:48→20:15)
[2023-05-09] MEDS: SACUBITRIL/VALSARTAN 49 MG-51 MG TABLET PO SCH ×2 (09:48→20:15)
[2023-05-09] MEDS: APIXABAN 5 MG TAB PO SCH ×2 (10:04→20:13)
[2023-05-09] MEDS: CEFEPIME 1 GM in SODIUM CHLORIDE 0.9% 50 ML IVPB SCH ×2 (10:05→20:13)
[2023-05-09 10:12] LABS: Anisocytosis Slight; Basophils % (A) 0 %; Eosinophils # (A) 0.4 k/uL (0-0.7); Eosinophils % (A) 3 %; HCT 34.3 % (34.0-46.0); HGB 10.4 gm/dL (11.4-16.0); Hypochromasia Marked; Lymphocytes # (A) 0.4 k/uL (1.0-4.8); Lymphocytes % (A) 3 %; MCH 24.6 pg (25.0-35.0); MCHC 30.4 g/dL (31.0-37.0); MCV 80.9 fL (80.0-100.0); Mean Platelet Volume 10.5; Monocytes # (A) 0.4 k/uL (0-1.0); Monocytes % (A) 3 %; Neutrophils # (A) 10.2 k/uL (1.3-7.7); Neutrophils % (A) 89 %; Platelet Count 180 k/uL (150-450); RBC 4.24 m/uL (3.80-5.40); RDW 16.4 % (11.5-15.5); WBC 11.4 k/uL (3.8-10.6)
[2023-05-09 11:12] LABS: Glucose,Whole Blood 192 mg/dL (70-110)
[2023-05-09 11:50] VITALS: BMI 43.8
[2023-05-09] MEDS: MORPHINE SULFATE 4 MG/ML SYRINGE IV PRN (14:26)
[2023-05-09 16:36] LABS: Glucose,Whole Blood 155 mg/dL (70-110)
[2023-05-09] MEDS: INSULIN DETEMIR (LEVEMIR) 100 UNIT/ML SYR SQ SCH (20:13)
[2023-05-09] MEDS: ALPRAZolam 0.5 MG TAB PO SCH (20:13)
[2023-05-09 20:27] LABS: Glucose,Whole Blood 173 mg/dL (70-110)
[2023-05-10] MEDS: ACETAMINOPHEN TAB 325 MG TAB PO PRN ×2 (00:31→21:25)
[2023-05-10] MEDS: METOPROLOL TARTRATE 25 MG TAB PO SCH ×3 (03:39→17:54)
[2023-05-10] MEDS: diphenhydrAMINE 25 MG CAP PO PRN ×2 (05:28→17:56)
--- NOTE | 2023-05-10 05:57 | P.PN ---
Subjective Progress Note Date: 05/09/23 Patient is a 47-year-old female with a known history of hypertension, diabetes type 2 insulin-dependent, chronic CHF, A-fib on anticoagulation, nonischemic cardiomyopathy status post ICD placement, history of [place], seizure disorder, history of ESBL E. 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 Patient states that her symptoms have been there for almost a week and during the last 2 days with worsening pain. Patient does have left foot plantar wound and is on follow-up with wound care clinic. He is also having increased drainage. Denies any fever. Feels overall weak. Denies any complaints of chest pain or shortness of breath. No nausea vomiting abdominal pain or diarrhea. Foot x-ray showed left midfoot amputation the amputation site there is no evidence for osseous erosion to suggest osteomyelitis. There is no evidence of fracture. There is mild soft tissue swelling. No significant change from prior. EKG showed electronic ventricular paced rhythm. Laboratory data showed WBC 24.7 hemoglobin 11.0 and platelets 189 sodium 130 potassium 4.6 chloride 97 bicarb is 19 BUN 69 and creatinine 1.57 and blood sugar 192 AST 108 ALT 113 and alk phos 78. Patient was afebrile on admission. Tachycardic with heart rate 101. Pulse ox 98% on room air. 05/08/2023. Patient is lying in the bed. Awake alert and oriented x3. No complaints of ch est pain or shortness of breath. Afebrile. Patient is hypotensive this morning with SBP in 60s. Patient was given 250 cc fluid bolus. Limit narcotic pain medications. Left lower extremity redness and swelling is still present. Blood pressure medications also on hold due to hypotension. Otherwise laboratory data showed WBC count improved to 13.1 hemoglobin 10.8 and platelets 190 Sodium 132 potassium 4.1 chloride 100 bicarb is 18 BUN 77 creatinine 2.51 and blood sugar is 150. Calcium 8.1. Patient is being continued on antibiotics cefepime and daptomycin. ID is on board. Current medications reviewed. 05/09/2023 Patient is seen and evaluated and follow-up with infectious disease following an maintained on cefepime and daptomycin and awaiting cultures to finalized. Patient extremely lethargic although arouses easily. Blood pressures have been extremely soft and on the lower side recommend holding blood pressure medications for now. Patient was given a dental 250 mL bolus with some improvement although continues to be low. Patient is asymptomatic and reports her blood pressure is frequently low. Patient currently wearing 2-3 L of oxygen and does not normally wear this at home and oxygen saturations have been above 95% recommend weaning FiO2 as tolerated. Patient is afebrile with no reports of chest pain or shortness of breath noted. WBC slightly elevated also kidney functions are worsening and above to today will consult nephrology and appreciate input and recommendations. Encouraged oral intake and increased activity as tolerated Review of systems: Constitutional: No reports of fatigue, fever, or chills Cardiovascular: No reports of chest pain or palpitations Respiratory: No reports of shortness of breath or cough GI: No reports of nausea, vomiting, or diarrhea : No reports of dysuria or retention Neurovascular: No reports of weakness or numbness All medications have been reviewed PHYSICAL EXAMINATION: Patient is lying in the bed comfortably sleeping although arousable,alert and oriented.. Morbidly obese. HEENT: Normocephalic. Neck is supple. Pupils reactive. Nostrils clear. Oral cavity is moist. Neck reveals no JVD, carotid bruits, or thyromegaly. CHEST EXAMINATION: Trachea is central. Symmetrical expansion. Lung nieves clear to auscultation and percussion. CARDIAC: Normal S1, S2 with no gallops. No murmurs ABDOMEN: Soft. Obese. Bowel sounds present. Nontender. No organomegaly. No abdominal bruits. Extremities: Left lower EXTR swelling 2+ with redness and warmth. Left foot wound is bandaged. Right BKA No clubbing or cyanosis Neurologically awake, alert, oriented x3 with well-coordinated movements. No focal deficits noted Skin: No rash or skin lesions. Psychiatric: Cooperative. Non-suicidal, Musculoskeletal: No joint swelling or deformity. Normal range of motion. Assessment: Left diabetic foot infection and lower extremity cellulitis. Sepsis secondary to above Hypovolemic hyponatremia Acute kidney injury likely prerenal with underlying CKD stage III Mild transaminitis History of left great toe and partial foot amputation Diabetes type 2 insulin-dependent Nonischemic cardiomyopathy status post ICD placement Paroxysmal atrial fibrillation on anticoagulation with Eliquis Hypertension History [place] COPD History of CVA/TIA History of ESBL, VRE foot infections Bipolar disorder Prior history of smoking and marijuana use GI prophylaxis DVT prophylaxis Full code Plan: Patient will be continued on antibiotics in the form of Dapto and cefepime. ID is following. Awaiting finalized cultures Patient continued on insulin regimen and sliding scale. Recommend monitoring Accu-Cheks before meals and at bedtime and will titrate accordingly Continue with anticoagulation with Eliquis and other cardiac medications. Follow-up renal function. Kidney function worsening above to will consult nephrology and appreciate input recommendations Blood pressure medications on hold again today due to hypotension. Morphine being discontinued Prognosis guarded with multiple medical problems and comorbid conditions. The impression and plan of care has been dictated by Aretha Silver, Nurse Practitioner as directed. Dr. Caitlin MD I have performed a history and examination and MDM of this patient, discussed the same with the dictator, and agree with the dictator's assessment and plan as written ,documented as a scribe. Based on total visit time, I have performed more than 50% of the visit. Objective - Vital Signs Vital signs: Vital Signs Temp 97.5 F L 05/09/23 07:07 Pulse 73 05/09/23 07:07 Resp 17 05/09/23 07:07 BP 87/54 05/09/23 07:07 Pulse Ox 94 L 05/09/23 07:07 FiO2 Intake & Output 05/08/23 05/09/23 05/09/23 18:59 06:59 18:59 Other: Voiding Method Diaper Diaper Incontinent Incontinent External Catheter External Catheter # Voids 2 3 - Labs CBC & Chem 7: 05/09/23 07:05 05/09/23 07:05 Labs: Abnormal Lab Results - Last 24 Hours (Table) 05/07/23 05/08/23 05/08/23 Range/Units 15:39 11:38 11:38 WBC 13.1 H (3.8-10.6) k/uL Hgb 10.8 L (11.4-16.0) gm/dL MCH 24.6 L (25.0-35.0) pg MCHC 30.4 L (31.0-37.0) g/dL RDW 16.2 H (11.5-15.5) % Neutrophils # 11.8 H (1.3-7.7) k/uL Lymphocytes # 0.6 L (1.0-4.8) k/uL Sodium 132 L (137-145) mmol/L Carbon Dioxide 18 L (22-30) mmol/L BUN 77 H (7-17) mg/dL Creatinine 2.51 H (0.52-1.04) mg/dL Glucose 150 H (74-99) mg/dL POC Glucose (mg/dL) (70-110) mg/dL Hemoglobin A1c 6.5 H (<=6.0) % Calcium 8.1 L (8.4-10.2) mg/dL 05/08/23 05/08/23 05/08/23 Range/Units 11:44 16:15 20:20 WBC (3.8-10.6) k/uL Hgb (11.4-16.0) gm/dL MCH (25.0-35.0) pg MCHC (31.0-37.0) g/dL RDW (11.5-15.5) % Neutrophils # (1.3-7.7) k/uL Lymphocytes # (1.0-4.8) k/uL Sodium (137-145) mmol/L Carbon Dioxide (22-30) mmol/L BUN (7-17) mg/dL Creatinine (0.52-1.04) mg/dL Glucose (74-99) mg/dL POC Glucose (mg/dL) 176 H 145 H 142 H (70-110) mg/dL Hemoglobin A1c (<=6.0) % Calcium (8.4-10.2) mg/dL 05/09/23 05/09/23 Range/Units 05:53 07:05 WBC (3.8-10.6) k/uL Hgb (11.4-16.0) gm/dL MCH (25.0-35.0) pg MCHC (31.0-37.0) g/dL RDW (11.5-15.5) % Neutrophils # (1.3-7.7) k/uL Lymphocytes # (1.0-4.8) k/uL Sodium 130 L (137-145) mmol/L Carbon Dioxide 18 L (22-30) mmol/L BUN 89 H (7-17) mg/dL Creatinine 2.55 H (0.52-1.04) mg/dL Glucose 120 H (74-99) mg/dL POC Glucose (mg/dL) 147 H (70-110) mg/dL Hemoglobin A1c (<=6.0) % Calcium 7.9 L (8.4-10.2) mg/dL Microbiology - Last 24 Hours (Table) 05/06/23 21:30 Blood Culture - Preliminary Blood 05/06/23 21:30 Blood Culture - Preliminary Blood 05/06/23 21:30 Gram Stain - Final Foot - Left Wound Culture - Final
[2023-05-10 06:15] LABS: Glucose,Whole Blood 110 mg/dL (70-110)
[2023-05-10 06:17] LABS: Anisocytosis Slight; Basophils % (A) 0 %; Eosinophils # (A) 0.5 k/uL (0-0.7); Eosinophils % (A) 5 %; HCT 34.1 % (34.0-46.0); HGB 10.5 gm/dL (11.4-16.0); Hypochromasia Marked; Lymphocytes # (A) 0.5 k/uL (1.0-4.8); Lymphocytes % (A) 6 %; MCH 24.8 pg (25.0-35.0); MCHC 30.6 g/dL (31.0-37.0); MCV 80.9 fL (80.0-100.0); Mean Platelet Volume 9.3; Monocytes # (A) 0.4 k/uL (0-1.0); Monocytes % (A) 4 %; Neutrophils # (A) 7.6 k/uL (1.3-7.7); Neutrophils % (A) 83 %; Platelet Count 182 k/uL (150-450); Poikilocytosis Slight; RBC 4.21 m/uL (3.80-5.40); RDW 16.5 % (11.5-15.5); WBC 9.1 k/uL (3.8-10.6)
[2023-05-10 06:32] LABS: African American GFR (CKD) 40 (>60 ml/min/1.73 sqM); Anion Gap 12 mmol/L; Blood Urea Nitrogen 89 mg/dL (7-17); Calcium 7.7 mg/dL (8.4-10.2); Carbon Dioxide 18 mmol/L (22-30); Chloride 102 mmol/L (98-107); Glucose 98 mg/dL (74-99); Non-African American GFR(CKD) 35 (>60 ml/min/1.73 sqM); Potassium 3.9 mmol/L (3.5-5.1); Sodium 132 mmol/L (137-145)
[2023-05-10] MEDS: INSULIN ASPART (NovoLOG) 100 UNIT/ML VIAL SQ SCH ×3 (06:51→17:12)
[2023-05-10] MEDS: BUMETANIDE 1 MG TAB PO SCH (08:05)
[2023-05-10] MEDS: SACUBITRIL/VALSARTAN 49 MG-51 MG TABLET PO SCH (08:05)
[2023-05-10] MEDS ORDERED: SODIUM CHLORIDE 0.9% 250 ML IV ONE (08:15)
[2023-05-10] MEDS: APIXABAN 5 MG TAB PO SCH ×2 (08:58→21:20)
[2023-05-10] MEDS: GABAPENTIN 300 MG CAP PO SCH ×3 (08:58→21:20)
[2023-05-10 09:29] LABS: Glucose,Whole Blood 146 mg/dL (70-110)
--- NOTE | 2023-05-10 10:14 | P.NPCON ---
History of Present Illness - Reason for Consult acute renal failure, chronic renal failure - History of Present Illness Reason for consultation: Acute kidney injury on chronic kidney disease History of present illness: Patient is a 47-year-old female seen a new consultation for acute kidney injury on chronic kidney disease. Patient has chronic kidney disease stage III with baseline creatinine 1.1-1.2. Patient's creatinine on admission was 1.57 and peaked at 2.55 on 05/09/2023. It is improved to 1.71 today. Patient came to the hospital due to pain in her left lower extremity. She does have a non healing diabetic wound and is being followed by infectious disease. She is on antibiotics. Patient was hypotensive this morning for systolic blood pressure in the 60s and is receiving at 250 mL bolus of normal saline. Patient's diuretics as well as entresto are held. Patient has long-standing history of diabetes. She denies chest pain or shortness breath at this time. Has been voiding. No hematuria. Denies use of nonsteroidals. Oral intake fair. On room air. Vital signs are stable. Blood pressure low. General: No acute distress. HEENT: Head exam is unremarkable. LUNGS: No audible rhonchi or wheezes. HEART: Rate and Rhythm are regular. ABDOMEN: Soft, obese. EXTREMITITES: Right BKA. Left lower extremity erythema noted. Past Medical History Past Medical History: Asthma, Heart Failure, COPD, CVA/TIA, Diabetes Mellitus, Hypertension, Myocardial Infarction (HI), Pneumonia, Seizure Disorder, Seizure Disorder Additional Past Medical History / Comment(s): uses a wheelchair. Patient states last seizure summer 2019 while she was at [facility] Last Myocardial Infarction Date:: 06/2018 History of Any Multi-Drug Resistant Organisms: ESBL, VRE, VRE Date of last positivie culture/infection: 12/18/20 ESBL E.coli; 04/22/17 VRE MDRO Source:: ESBL Left foot; VRE Right Foot Past Surgical History: Adenoidectomy, AICD, Section, Heart Catheterization, Orthopedic Surgery, Pacemaker, Tonsillectomy Additional Past Surgical History / Comment(s): AICD - [employer]. has pacemaker defibrillator, right all toe amputated 04/2016, LT GREAT TOE then left foot partial amputation Past Anesthesia/Blood Transfusion Reactions: Postoperative Nausea & Vomiting (PONV) Type of Cardiac Device: Biventricular Pacemaker, Permanent Pacemaker, AICD Device Placement Date:: 2011 Past Psychological History: Bipolar Smoking Status: Former smoker Past Alcohol Use History: None Reported Past Drug Use History: Marijuana - Past Family History Mother Family Medical History: Deep Vein Thrombosis (DVT) Additional Family Medical History / Comment(s): Some type of heart problems, kidney failure. Father History Unknown: Yes Family Medical History: Unable to Obtain Additional Family Medical History / Comment(s): Patient denies knowing any medical history on her father. Medications and Allergies Home Medications Medication Instructions Recorded Confirmed Type Insulin Glargine [Lantus Vial] 10 unit SQ HS 04/30/19 05/07/23 History Apixaban [Eliquis] 5 mg PO BID 07/27/19 05/07/23 History Ipratropium-Albuterol Nebulize 3 ml INHALATION RT-TID PRN 05/21/20 05/07/23 History [Duoneb 0.5 mg-3 mg/3 ml Soln] Gabapentin [Neurontin] 600 mg PO TID #9 tab 12/23/20 05/07/23 Rx ALPRAZolam [Xanax] 0.5 mg PO HS 05/07/23 05/07/23 History Albuterol Sulfate [Albuterol 1 - 2 puff PO RT-Q6H PRN 05/07/23 05/07/23 History Sulfate Hfa] Bumetanide [Bumex] 1 mg PO BID 05/07/23 05/07/23 History Insulin Aspart [NovoLOG Flexpen] See Protocol SQ AC-TID PRN 05/07/23 05/07/23 History Metoprolol Tartrate [Lopressor] 25 mg PO BID 05/07/23 05/07/23 History Sacubitril/Valsartan [Entresto 49 1 tab PO BID 05/07/23 05/07/23 History mg-51 mg Tablet] Allergies Allergy/AdvReac Type Severity Reaction Status Date / Time Penicillins Allergy Rash/Hives Verified 05/06/23 20:55 ondansetron [From Zofran] AdvReac Nausea & Verified 05/06/23 20:55 Vomiting Physical Exam Vitals: Vital Signs Temp Pulse Resp BP BP Pulse Ox 05/10/23 08:00 97.3 F L 67 12 71/45 83/56 94 L 06/13/23 02:00 98.0 F 71 16 105/61 99 05/09/23 20:00 97.5 F L 79 18 90/54 96 05/09/23 13:44 97.5 F L 83 17 103/65 99 05/09/23 10:54 87/58 Intake and Output 05/09/23 05/10/23 05/10/23 22:59 06:59 14:59 Intake Total 50 518 Output Total 500 600 Balance -500 -550 518 Intake: Intake, IV Titration 50 Amount Cefepime 1 gm In Sodium 50 Chloride 0.9% 50 ml @ 12. 5 mls/hr IVPB Q12HR [facility] Rx#:[id number] Oral 518 Output: Urine 500 600 Other: Voiding Method External Catheter Results - Lab Results Most recent lab results Calcium 7.7 mg/dL (8.4-10.2) L 05/10/23 05:47 05/10/23 05:52 05/10/23 05:47 Assessment and Plan Plan: Assessment: 1. Acute kidney injury secondary to ATN secondary to hypotension. Creatinine peaked at 2.5 for this admission and is 1.71 today. 2. Chronic kidney disease stage IIIa with baseline creatinine 1.1-1.2 secondary to diabetic kidney disease and cardiorenal syndrome. 3. Metabolic acidosis secondary to acute kidney injury. 4. Left lower extremity cellulitis/wound being followed by ID. 5. Diabetes mellitus. 6. Status post right BKA. 7. Hyponatremia secondary to acute kidney injury. 8. Chronic systolic CHF with ejection fraction of less than 20% status post AICD. Plan: Hold diuretics and entresto. Currently receiving a fluid bolus. Check UA. Encourage oral intake. Avoid nephrotoxins. Add oral bicarbonate. Thank you for the consultation. I will continue to follow the patient with you during her hospital stay.
[2023-05-10] MEDS: CEFEPIME 1 GM in SODIUM CHLORIDE 0.9% 50 ML IVPB SCH ×2 (10:47→21:19)
[2023-05-10] MEDS: SODIUM BICARBONATE TAB 650 MG TAB PO SCH ×2 (11:25→21:20)
[2023-05-10 11:45] LABS: Glucose,Whole Blood 102 mg/dL (70-110)
[2023-05-10 14:15] LABS: Magnesium 2.5 mg/dL (1.6-2.3)
[2023-05-10 14:33] LABS: Appearance,Urine Clear (Clear); Bilirubin,Urine Negative (Negative); Blood,Urine Negative (Negative); Color,Urine Light Yellow; Glucose,Urine (UA) Negative (Negative); Ketones,Urine Negative (Negative); Leukocyte Esterase,Urine Negative (Negative); Nitrite,Urine Negative (Negative); PH, Urine 5.5 (5.0-8.0); Protein,Urine Negative (Negative); Specific Gravity,Urine 1.007 (1.001-1.035); Urobilinogen,Urine <2.0 mg/dL (<2.0)
[2023-05-10 16:33] LABS: Glucose,Whole Blood 154 mg/dL (70-110)
[2023-05-10] MEDS: MIDODRINE 5 MG TAB PO SCH (17:12)
--- NOTE | 2023-05-10 19:25 | P.PN ---
Subjective Progress Note Date: 05/08/23 Principal diagnosis: Left leg cellulitis Patient is a 47-year female with a past medical history significant for diabetes mellitus patient did have history of diabetic foot infection requiring right greater than amputation currently to have a nonhealing wound to the plantar aspect of the left foot with multiple infection presented to hospital with left lower extremity cellulitis. On today's evaluation that is 05/08/2023 patient denies having any fever or any chills patient is breathing comfortably no chest pain shortness of breath or cough no abdominal pain still has significant swelling and redness to left lower extremity patient noted to have slight worsening of the kidney function. Objective - Vital Signs Vital signs: Vital Signs Temp 97.5 F L 05/08/23 07:10 Pulse 86 05/08/23 09:17 Resp 19 05/08/23 07:10 BP 103/50 05/08/23 09:17 Pulse Ox 94 L 05/08/23 07:10 FiO2 Intake & Output 05/07/23 05/08/23 05/08/23 18:59 06:59 18:59 Weight 127.006 kg Other: Voiding Method Diaper Diaper Diaper Incontinent Incontinent Incontinent External Catheter External Catheter External Catheter # Voids 1 1 - Exam GENERAL DESCRIPTION middle-aged female lying in bed in no distress RESPIRATORY SYSTEM: Unlabored breathing , decreased breath sounds at bases HEART: S1 S2 regular rate and rhythm ,no loud murmurs ABDOMEN: Soft , no tenderness EXTREMITIES: Left lower extremity swelling and redness warm to touch - Labs CBC & Chem 7: 05/10/23 05:52 05/10/23 05:47 Labs: Abnormal Lab Results - Last 24 Hours (Table) 05/07/23 05/07/23 05/07/23 Range/Units 13:15 15:39 17:18 WBC (3.8-10.6) k/uL Hgb (11.4-16.0) gm/dL MCH (25.0-35.0) pg MCHC (31.0-37.0) g/dL RDW (11.5-15.5) % Neutrophils # (1.3-7.7) k/uL Lymphocytes # (1.0-4.8) k/uL Sodium (137-145) mmol/L Carbon Dioxide (22-30) mmol/L BUN (7-17) mg/dL Creatinine (0.52-1.04) mg/dL Glucose (74-99) mg/dL POC Glucose (mg/dL) 181 H 143 H (70-110) mg/dL Hemoglobin A1c 6.5 H (<=6.0) % Calcium (8.4-10.2) mg/dL 05/07/23 05/08/23 05/08/23 Range/Units 20:54 06:21 11:38 WBC 13.1 H (3.8-10.6) k/uL Hgb 10.8 L (11.4-16.0) gm/dL MCH 24.6 L (25.0-35.0) pg MCHC 30.4 L (31.0-37.0) g/dL RDW 16.2 H (11.5-15.5) % Neutrophils # 11.8 H (1.3-7.7) k/uL Lymphocytes # 0.6 L (1.0-4.8) k/uL Sodium (137-145) mmol/L Carbon Dioxide (22-30) mmol/L BUN (7-17) mg/dL Creatinine (0.52-1.04) mg/dL Glucose (74-99) mg/dL POC Glucose (mg/dL) 146 H 154 H (70-110) mg/dL Hemoglobin A1c (<=6.0) % Calcium (8.4-10.2) mg/dL 05/08/23 05/08/23 Range/Units 11:38 11:44 WBC (3.8-10.6) k/uL Hgb (11.4-16.0) gm/dL MCH (25.0-35.0) pg MCHC (31.0-37.0) g/dL RDW (11.5-15.5) % Neutrophils # (1.3-7.7) k/uL Lymphocytes # (1.0-4.8) k/uL Sodium 132 L (137-145) mmol/L Carbon Dioxide 18 L (22-30) mmol/L BUN 77 H (7-17) mg/dL Creatinine 2.51 H (0.52-1.04) mg/dL Glucose 150 H (74-99) mg/dL POC Glucose (mg/dL) 176 H (70-110) mg/dL Hemoglobin A1c (<=6.0) % Calcium 8.1 L (8.4-10.2) mg/dL Microbiology - Last 24 Hours (Table) 05/06/23 21:30 Gram Stain - Final Foot - Left Wound Culture - Final 05/06/23 21:30 Blood Culture - Preliminary Blood 05/06/23 21:30 Blood Culture - Preliminary Blood Assessment and Plan (1) Cellulitis Current Visit: Yes Status: Acute Code(s): L03.90 - CELLULITIS, UNSPECIFIED SNOMED Code(s): 610885248 (2) Wound of foot Current Visit: Yes Status: Acute Code(s): S91.309A - UNSPECIFIED OPEN WOUND, UNSPECIFIED FOOT, INITIAL ENCOUNTER SNOMED Code(s): 433880582 Plan: 1patient presented hospital with extensive left lower extremity cellulitis source is likely left diabetic foot wound and will need to cover for resistant gram-positive as well as gram-negative keeping in mind her chronic history of diabetic foot wound and multiple infection and exposure to antibiotic therapy 2-Patient noted to have significant worsening of the kidney function we will discontinue vancomycin start the patient on daptomycin and continue with cefepime, cultures from the left foot plantar wound to guide further antibiotic therapy Time with Patient: Less than 30
--- NOTE | 2023-05-10 19:28 | P.PN ---
Subjective Progress Note Date: 05/09/23 Principal diagnosis: Left leg cellulitis Patient is a 47-year female with a past medical history significant for diabetes mellitus patient did have history of diabetic foot infection requiring right greater than amputation currently to have a nonhealing wound to the plantar aspect of the left foot with multiple infection presented to hospital with left lower extremity cellulitis. On today's evaluation that is 05/09/2023, the patient denies having any fever or any chills she is breathing comfortably no chest pain or shortness of breath or cough no abdominal pain or any diarrhea Objective - Vital Signs Vital signs: Vital Signs Temp 97.5 F L 05/09/23 07:07 Pulse 73 05/09/23 07:07 Resp 17 05/09/23 07:07 BP 87/58 05/09/23 10:54 Pulse Ox 94 L 05/09/23 07:07 FiO2 Intake & Output 05/08/23 05/09/23 05/09/23 18:59 06:59 18:59 Weight 127.006 kg Other: Voiding Method Diaper Diaper External Catheter Incontinent Incontinent External Catheter External Catheter # Voids 2 3 - Exam GENERAL DESCRIPTION middle-aged female lying in bed in no distress RESPIRATORY SYSTEM: Unlabored breathing , decreased breath sounds at bases HEART: S1 S2 regular rate and rhythm ,no loud murmurs ABDOMEN: Soft , no tenderness EXTREMITIES: Left lower extremity swelling and redness warm to touch - Labs CBC & Chem 7: 05/10/23 05:52 05/10/23 05:47 Labs: Abnormal Lab Results - Last 24 Hours (Table) 05/08/23 05/08/23 05/09/23 Range/Units 16:15 20:20 05:53 WBC (3.8-10.6) k/uL Hgb (11.4-16.0) gm/dL MCH (25.0-35.0) pg MCHC (31.0-37.0) g/dL RDW (11.5-15.5) % Neutrophils # (1.3-7.7) k/uL Lymphocytes # (1.0-4.8) k/uL Sodium (137-145) mmol/L Carbon Dioxide (22-30) mmol/L BUN (7-17) mg/dL Creatinine (0.52-1.04) mg/dL Glucose (74-99) mg/dL POC Glucose (mg/dL) 145 H 142 H 147 H (70-110) mg/dL Calcium (8.4-10.2) mg/dL 05/09/23 05/09/23 05/09/23 Range/Units 07:05 07:05 11:10 WBC 11.4 H (3.8-10.6) k/uL Hgb 10.4 L (11.4-16.0) gm/dL MCH 24.6 L (25.0-35.0) pg MCHC 30.4 L (31.0-37.0) g/dL RDW 16.4 H (11.5-15.5) % Neutrophils # 10.2 H (1.3-7.7) k/uL Lymphocytes # 0.4 L (1.0-4.8) k/uL Sodium 130 L (137-145) mmol/L Carbon Dioxide 18 L (22-30) mmol/L BUN 89 H (7-17) mg/dL Creatinine 2.55 H (0.52-1.04) mg/dL Glucose 120 H (74-99) mg/dL POC Glucose (mg/dL) 192 H (70-110) mg/dL Calcium 7.9 L (8.4-10.2) mg/dL Microbiology - Last 24 Hours (Table) 05/06/23 21:30 Blood Culture - Preliminary Blood 05/06/23 21:30 Blood Culture - Preliminary Blood 05/06/23 21:30 Gram Stain - Final Foot - Left Wound Culture - Final Assessment and Plan (1) Diabetic foot ulcer Current Visit: Yes Status: Acute Code(s): E11.621 - TYPE 2 DIABETES MELLITUS WITH FOOT ULCER; L97.509 - NON-PRESSURE CHRONIC ULCER OTH PRT UNSP FOOT W UNSP SEVERITY SNOMED Code(s): 555827912 (2) Left leg cellulitis Current Visit: Yes Status: Acute Code(s): L03.116 - CELLULITIS OF LEFT LOWER LIMB SNOMED Code(s): 613884598 Plan: 1patient presented hospital with extensive left lower extremity cellulitis source is likely left diabetic foot wound and will need to cover for resistant gram-positive as well as gram-negative keeping in mind her chronic history of diabetic foot wound and multiple infection and exposure to antibiotic therapy 2-Cultures obtained by the nursing staff has been rejected by the micro lab, we did clean the left foot plantar wound and cultures has been obtained to guide further antibiotic therapy for now continue with the daptomycin and cefepime for local wound care with Medih[facility] followed by moist dressing change daily Time with Patient: Less than 30
--- NOTE | 2023-05-10 19:30 | P.PN ---
Subjective Progress Note Date: 05/10/23 Principal diagnosis: Left leg cellulitis Patient is a 47-year female with a past medical history significant for diabetes mellitus patient did have history of diabetic foot infection requiring right greater than amputation currently to have a nonhealing wound to the plantar aspect of the left foot with multiple infection presented to hospital with left lower extremity cellulitis. On today's evaluation that is 05/10/2023 patient remains to be afebrile the patient is breathing comfortably and is currently on 2 L nasal cannula oxygen denies any chest pain shortness of breath, no abdominal pain swelling redness and pain to the left leg has slightly decreased in intensity Objective - Vital Signs Vital signs: Vital Signs Temp 97.3 F L 05/10/23 08:00 Pulse 66 05/10/23 10:50 Resp 12 05/10/23 08:00 BP 92/56 05/10/23 10:50 Pulse Ox 94 L 05/10/23 08:00 FiO2 Intake & Output 05/09/23 05/10/23 05/10/23 18:59 06:59 18:59 Intake Total 50 518 Output Total 500 600 Balance -500 -550 518 Weight 127.006 kg Intake: Intake, IV Titration 50 Amount Cefepime 1 gm In Sodium 50 Chloride 0.9% 50 ml @ 12. 5 mls/hr IVPB Q12HR [facility] Rx#:[id number] Oral 518 Output: Urine 500 600 Other: Voiding Method External Catheter External Catheter - Exam GENERAL DESCRIPTION middle-aged female lying in bed in no distress RESPIRATORY SYSTEM: Unlabored breathing , decreased breath sounds at bases HEART: S1 S2 regular rate and rhythm ,no loud murmurs ABDOMEN: Soft , no tenderness EXTREMITIES: Left lower extremity swelling and redness has decreased - Labs CBC & Chem 7: 05/10/23 05:52 05/10/23 05:47 Labs: Abnormal Lab Results - Last 24 Hours (Table) 05/09/23 05/09/23 05/10/23 Range/Units 16:35 20:26 05:47 Hgb (11.4-16.0) gm/dL MCH (25.0-35.0) pg MCHC (31.0-37.0) g/dL RDW (11.5-15.5) % Lymphocytes # (1.0-4.8) k/uL Sodium 132 L (137-145) mmol/L Carbon Dioxide 18 L (22-30) mmol/L BUN 89 H (7-17) mg/dL Creatinine 1.71 H (0.52-1.04) mg/dL POC Glucose (mg/dL) 155 H 173 H (70-110) mg/dL Calcium 7.7 L (8.4-10.2) mg/dL 05/10/23 05/10/23 Range/Units 05:52 09:26 Hgb 10.5 L (11.4-16.0) gm/dL MCH 24.8 L (25.0-35.0) pg MCHC 30.6 L (31.0-37.0) g/dL RDW 16.5 H (11.5-15.5) % Lymphocytes # 0.5 L (1.0-4.8) k/uL Sodium (137-145) mmol/L Carbon Dioxide (22-30) mmol/L BUN (7-17) mg/dL Creatinine (0.52-1.04) mg/dL POC Glucose (mg/dL) 146 H (70-110) mg/dL Calcium (8.4-10.2) mg/dL Microbiology - Last 24 Hours (Table) 05/06/23 21:30 Blood Culture - Preliminary Blood 05/06/23 21:30 Blood Culture - Preliminary Blood 05/08/23 16:35 Gram Stain - Preliminary Foot - Left Wound Culture - Preliminary Gram Neg Bacilli Assessment and Plan (1) Diabetic foot ulcer Current Visit: Yes Status: Acute Code(s): E11.621 - TYPE 2 DIABETES MELLITUS WITH FOOT ULCER; L97.509 - NON-PRESSURE CHRONIC ULCER OTH PRT UNSP FOOT W UNSP SEVERITY SNOMED Code(s): 879794568 (2) Left leg cellulitis Current Visit: Yes Status: Acute Code(s): L03.116 - CELLULITIS OF LEFT LOWER LIMB SNOMED Code(s): 129371415 Plan: 1patient presented hospital with extensive left lower extremity cellulitis source is likely left diabetic foot wound and will need to cover for resistant gram-positive as well as gram-negative keeping in mind her chronic history of diabetic foot wound and multiple infection and exposure to antibiotic therapy 2- local wound care with Med[facility] followed by moist dressing change daily 3-Local cultures currently growing gram-negative bacilli we will continue the patient on cefepime discontinue daptomycin discharge antibiotic on the basis of final culture Time with Patient: Less than 30
[2023-05-10 20:20] LABS: Glucose,Whole Blood 148 mg/dL (70-110)
[2023-05-10] MEDS: INSULIN DETEMIR (LEVEMIR) 100 UNIT/ML SYR SQ SCH (21:19)
[2023-05-10] MEDS: ALPRAZolam 0.5 MG TAB PO SCH (21:20)
[2023-05-11 05:31] LABS: Glucose,Whole Blood 89 mg/dL (70-110)
[2023-05-11] MEDS: INSULIN ASPART (NovoLOG) 100 UNIT/ML VIAL SQ SCH ×3 (05:38→16:39)
--- NOTE | 2023-05-11 06:08 | P.PN ---
Subjective Progress Note Date: 05/10/23 Patient is a 47-year-old female with a known history of hypertension, diabetes type 2 insulin-dependent, chronic CHF, A-fib on anticoagulation, nonischemic cardiomyopathy status post ICD placement, history of [place], seizure disorder, history of ESBL E. 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 Patient states that her symptoms have been there for almost a week and during the last 2 days with worsening pain. Patient does have left foot plantar wound and is on follow-up with wound care clinic. He is also having increased drainage. Denies any fever. Feels overall weak. Denies any complaints of chest pain or shortness of breath. No nausea vomiting abdominal pain or diarrhea. Foot x-ray showed left midfoot amputation the amputation site there is no evidence for osseous erosion to suggest osteomyelitis. There is no evidence of fracture. There is mild soft tissue swelling. No significant change from prior. EKG showed electronic ventricular paced rhythm. Laboratory data showed WBC 24.7 hemoglobin 11.0 and platelets 189 sodium 130 potassium 4.6 chloride 97 bicarb is 19 BUN 69 and creatinine 1.57 and blood sugar 192 AST 108 ALT 113 and alk phos 78. Patient was afebrile on admission. Tachycardic with heart rate 101. Pulse ox 98% on room air. 05/08/2023. Patient is lying in the bed. Awake alert and oriented x3. No complaints of ch est pain or shortness of breath. Afebrile. Patient is hypotensive this morning with SBP in 60s. Patient was given 250 cc fluid bolus. Limit narcotic pain medications. Left lower extremity redness and swelling is still present. Blood pressure medications also on hold due to hypotension. Otherwise laboratory data showed WBC count improved to 13.1 hemoglobin 10.8 and platelets 190 Sodium 132 potassium 4.1 chloride 100 bicarb is 18 BUN 77 creatinine 2.51 and blood sugar is 150. Calcium 8.1. Patient is being continued on antibiotics cefepime and daptomycin. ID is on board. Current medications reviewed. 05/09/2023 Patient is seen and evaluated and follow-up with infectious disease following an maintained on cefepime and daptomycin and awaiting cultures to finalized. Patient extremely lethargic although arouses easily. Blood pressures have been extremely soft and on the lower side recommend holding blood pressure medications for now. Patient was given a dental 250 mL bolus with some improvement although continues to be low. Patient is asymptomatic and reports her blood pressure is frequently low. Patient currently wearing 2-3 L of oxygen and does not normally wear this at home and oxygen saturations have been above 95% recommend weaning FiO2 as tolerated. Patient is afebrile with no reports of chest pain or shortness of breath noted. WBC slightly elevated also kidney functions are worsening and above to today will consult nephrology and appreciate input and recommendations. Encouraged oral intake and increased activity as tolerated 05/10/2023 Patient is seen and evaluated in follow-up this morning continues to be lethargic although easily arousable. Patient being followed by infectious disease awaiting cultures and maintained on IV antibiotics in the form of cefepime and daptomycin. Patient to continue with local wound care to left lower extremity and elevating on rest. Patient is having some improvements in redness and swelling. Patient had an increase in worsening kidney functions and nephrology consulted and following. Patient blood pressure continues to be low. On midodrine now and will monitor blood pressures closely. Encouraged oral int danyelle and increased activity as tolerated. Patient has not been getting up out of bed much and is mostly sleeping throughout the day. Review of systems: Constitutional: reports of fatigue, no fever, or chills Cardiovascular: No reports of chest pain or palpitations Respiratory: No reports of shortness of breath or cough GI: No reports of nausea, vomiting, or diarrhea : No reports of dysuria or retention Neurovascular: reports of generalized weakness All medications have been reviewed PHYSICAL EXAMINATION: Patient is lying in the bed comfortably sleeping although arousable,alert and or iented.. Morbidly obese. HEENT: Normocephalic. Neck is supple. Pupils reactive. Nostrils clear. Oral cavity is moist. Neck reveals no JVD, carotid bruits, or thyromegaly. CHEST EXAMINATION: Trachea is central. Symmetrical expansion. Lung nieves clear to auscultation and percussion. CARDIAC: Normal S1, S2 with no gallops. No murmurs ABDOMEN: Soft. Obese. Bowel sounds present. Nontender. No organomegaly. No abdominal bruits. Extremities: Left lower EXTR swelling 2+ with redness and warmth. There is some improvement in swelling and redness has gone down. Left foot wound is bandaged. Right BKA No clubbing or cyanosis Neurologically awake, alert, oriented x3 with well-coordinated movements. No focal deficits noted Skin: No rash or skin lesions. Psychiatric: Cooperative. Non-suicidal, Musculoskeletal: No joint swelling or deformity. Normal range of motion. Assessment: Left diabetic foot infection and lower extremity cellulitis. Sepsis secondary to above Hypovolemic hyponatremia Acute kidney injury, acute tubular necrosis with underlying CKD stage III, likely secondary to hypotension Mild transaminitis History of left great toe and partial foot amputation Diabetes type 2 insulin-dependent Nonischemic cardiomyopathy status post ICD placement Paroxysmal atrial fibrillation on anticoagulation with Eliquis Hypertension History [place] COPD History of CVA/TIA History of ESBL, VRE foot infections Bipolar disorder Prior history of smoking and marijuana use GI prophylaxis DVT prophylaxis Full code Plan: Patient will be continued on antibiotics in the form of Dapto and cefepime. ID is following. Awaiting finalized cultures Patient continued on insulin regimen and sliding scale. Recommend monitoring Accu-Cheks before meals and at bedtime and will titrate accordingly Continue with anticoagulation with Eliquis and other cardiac medications. Kidney function worsening with nephrology following adding oral bicarb admitted treating this patient continues to be hypotensive Blood pressure medications and diuretics on hold due to hypotension. Morphine being discontinued Will discuss further with infectious disease once cultures are finalized to determine discharge antibiotics and treatment plan moving forward Prognosis guarded with multiple medical problems and comorbid conditions. The impression and plan of care has been dictated by Aretha Silver, Nurse Practitioner as directed. Dr. Caitlin MD I have performed a history and examination and MDM of this patient, discussed the same with the dictator, and agree with the dictator's assessment and plan as written ,documented as a scribe. Based on total visit time, I have performed more than 50% of the visit. Objective - Vital Signs Vital signs: Vital Signs Temp 97.3 F L 05/10/23 08:00 Pulse 67 05/10/23 08:00 Resp 12 05/10/23 08:00 BP 71/45 05/10/23 08:00 Pulse Ox 94 L 05/10/23 08:00 FiO2 Intake & Output 05/09/23 05/10/23 05/10/23 18:59 06:59 18:59 Intake Total 50 518 Output Total 500 600 Balance -500 -550 518 Weight 127.006 kg Intake: Intake, IV Titration 50 Amount Cefepime 1 gm In Sodium 50 Chloride 0.9% 50 ml @ 12. 5 mls/hr IVPB Q12HR [facility] Rx#:[id number] Oral 518 Output: Urine 500 600 Other: Voiding Method External Catheter External Catheter - Labs CBC & Chem 7: 05/10/23 05:52 05/10/23 05:47 Labs: Abnormal Lab Results - Last 24 Hours (Table) 05/09/23 05/09/23 05/09/23 Range/Units 07:05 11:10 16:35 WBC 11.4 H (3.8-10.6) k/uL Hgb 10.4 L (11.4-16.0) gm/dL MCH 24.6 L (25.0-35.0) pg MCHC 30.4 L (31.0-37.0) g/dL RDW 16.4 H (11.5-15.5) % Neutrophils # 10.2 H (1.3-7.7) k/uL Lymphocytes # 0.4 L (1.0-4.8) k/uL Sodium (137-145) mmol/L Carbon Dioxide (22-30) mmol/L BUN (7-17) mg/dL Creatinine (0.52-1.04) mg/dL POC Glucose (mg/dL) 192 H 155 H (70-110) mg/dL Calcium (8.4-10.2) mg/dL 05/09/23 05/10/23 05/10/23 Range/Units 20:26 05:47 05:52 WBC (3.8-10.6) k/uL Hgb 10.5 L (11.4-16.0) gm/dL MCH 24.8 L (25.0-35.0) pg MCHC 30.6 L (31.0-37.0) g/dL RDW 16.5 H (11.5-15.5) % Neutrophils # (1.3-7.7) k/uL Lymphocytes # 0.5 L (1.0-4.8) k/uL Sodium 132 L (137-145) mmol/L Carbon Dioxide 18 L (22-30) mmol/L BUN 89 H (7-17) mg/dL Creatinine 1.71 H (0.52-1.04) mg/dL POC Glucose (mg/dL) 173 H (70-110) mg/dL Calcium 7.7 L (8.4-10.2) mg/dL Microbiology - Last 24 Hours (Table) 05/06/23 21:30 Blood Culture - Preliminary Blood 05/06/23 21:30 Blood Culture - Preliminary Blood 05/08/23 16:35 Gram Stain - Preliminary Foot - Left Wound Culture - Preliminary Gram Neg Bacilli
[2023-05-11] MEDS: METOPROLOL TARTRATE 25 MG TAB PO SCH ×2 (08:15→20:48)
[2023-05-11] MEDS: GABAPENTIN 300 MG CAP PO SCH ×3 (08:15→20:48)
[2023-05-11] MEDS: SODIUM BICARBONATE TAB 650 MG TAB PO SCH ×2 (08:15→20:48)
[2023-05-11] MEDS: MIDODRINE 5 MG TAB PO SCH ×3 (08:15→16:34)
[2023-05-11] MEDS: APIXABAN 5 MG TAB PO SCH ×2 (08:16→20:48)
[2023-05-11] MEDS: diphenhydrAMINE 25 MG CAP PO PRN ×2 (08:16→20:48)
[2023-05-11] MEDS: CEFEPIME 1 GM in SODIUM CHLORIDE 0.9% 50 ML IVPB SCH (08:16)
[2023-05-11 09:13] LABS: African American GFR (CKD) 66 (>60 ml/min/1.73 sqM); Anion Gap 11 mmol/L; Blood Urea Nitrogen 70 mg/dL (7-17); Calcium 8.2 mg/dL (8.4-10.2); Carbon Dioxide 21 mmol/L (22-30); Chloride 107 mmol/L (98-107); Glucose 84 mg/dL (74-99); Non-African American GFR(CKD) 57 (>60 ml/min/1.73 sqM); Potassium 3.9 mmol/L (3.5-5.1); Sodium 139 mmol/L (137-145)
--- NOTE | 2023-05-11 10:22 | P.PN ---
Subjective Patient is seen in follow-up for acute kidney injury on chronic kidney disease. Renal function better. Nonoliguric. Diuretics and antihypertensives held. Blood pressure stable but remains on the lower side. On room air. No chest pain or shortness of breath. Vital signs are stable. General: No acute distress. HEENT: Head exam is unremarkable. LUNGS: No audible rhonchi or wheezes. HEART: Rate and Rhythm are regular. ABDOMEN: Obese, nontender. EXTREMITITES: Right BKA. Left lower extremity erythema noted. Trace edema. Toes amputation noted. Objective - Vital Signs Vital signs: Vital Signs Temp 97.6 F 05/11/23 07:05 Pulse 70 05/11/23 07:05 Resp 15 05/11/23 07:05 BP 89/50 05/11/23 07:05 Pulse Ox 97 05/11/23 07:05 FiO2 Intake & Output 05/10/23 05/11/23 05/11/23 18:59 06:59 18:59 Intake Total 1234 Output Total 2250 900 Balance -1016 -900 Intake: Oral 1234 Output: Urine 2250 900 Other: Voiding Method External Catheter External Catheter # Voids 1 - Labs CBC & Chem 7: 05/10/23 05:52 05/11/23 07:29 Labs: Abnormal Lab Results - Last 24 Hours (Table) 05/10/23 05/10/23 05/10/23 Range/Units 05:47 16:30 20:19 Carbon Dioxide (22-30) mmol/L BUN (7-17) mg/dL Creatinine (0.52-1.04) mg/dL POC Glucose (mg/dL) 154 H 148 H (70-110) mg/dL Calcium (8.4-10.2) mg/dL Magnesium 2.5 H (1.6-2.3) mg/dL 05/11/23 05/11/23 Range/Units 07:29 07:29 Carbon Dioxide 21 L (22-30) mmol/L BUN 70 H (7-17) mg/dL Creatinine 1.14 H (0.52-1.04) mg/dL POC Glucose (mg/dL) (70-110) mg/dL Calcium 8.2 L (8.4-10.2) mg/dL Magnesium 2.6 H (1.6-2.3) mg/dL Microbiology - Last 24 Hours (Table) 05/08/23 16:35 Anaerobic Culture - Preliminary Foot - Left 05/08/23 16:35 Gram Stain - Preliminary Foot - Left Wound Culture - Preliminary Gram Neg Bacilli Gram Neg Bacilli#2 Strep A Assessment and Plan Plan: Assessment: 1. Acute kidney injury secondary to ATN secondary to hypotension. Creatinine peaked at 2.5 this admission and is 1.14 today. UA benign. 2. Chronic kidney disease stage IIIa with baseline creatinine 1.1-1.2 secondary to diabetic kidney disease and cardiorenal syndrome. 3. Metabolic acidosis secondary to acute kidney injury. 4. Left lower extremity cellulitis/wound being followed by ID. on oral bicarb. Improved. 5. Diabetes mellitus. 6. Status post right BKA. 7. Hypovolemic hyponatremia secondary to acute kidney injury. Diuretics held. Improved. 8. Chronic systolic CHF with ejection fraction of less than 20% status post AICD. Plan: Continue to hold diuretics and entresto. Status post fluid bolus yesterday. Encourage oral intake. Avoid nephrotoxins. Maintain midodrine. Increase dose to 10 mg.
[2023-05-11 11:41] LABS: Glucose,Whole Blood 133 mg/dL (70-110)
--- NOTE | 2023-05-11 12:02 | CDI ---
Documentation Clarification Form Date: 05/11/2023 11:51:34 AM From: Kacie Israel RN, CCDS Email: [email or web address] Admit Date: 05/07/2023 12:24:00 AM Patient Name: Flaca Hinson Visit Number: [id number] Discharge Date: ATTENTION: The Clinical Documentation Specialists (CDI) and [facility] Coding Staff appreciate your assistance in clarifying documentation. Please respond to the clarification below the line at the bottom and electronically sign. The CDI & [facility] Coding staff will review the response and follow-up if needed. Please note: Queries are made part of the Legal Health Record. If you have any questions, please contact the author of this message via ITS. Dr. Latisha Ortez stage 2 pressure injury to left buttock POA is documented by Nursing/Wound assessment. Based on this information and the findings below, is there an additional diagnosis that is clinically appropriate for this patient? History/Risk Factors: diabetic foot wound, HTN, CHF, Right BKA, Type2 DM Clinical Indicators: Nursing: "Left buttock pressure injury present on admission." Location: left buttock Wound description: stage II, erythema Treatment: external catheter for total incontinence, assist with turning Is there an additional diagnosis that is clinically appropriate for this patient? [ x ] Left buttock Pressure Ulcer Stage 2 [ ] Other condition, please specify [ ] Unable to determine Clinical Definitions: Stage 1 Pressure Ulcer: intact skin, non-blanching redness of local area Stage 2 Pressure Ulcer: Partial thickness, loss of dermis, pink wound bed Stage 3 Pressure Ulcer: Full thickness tissue loss Stage 4 Pressure Ulcer: Full thickness tissue loss with exposed bone, tendon, or muscle. Unstageable pressure ulcer: Full thickness tissue loss in which the base of the ulcer is covered by slough (yellow, mcginnis, patel, green or brown) and/or eschar (mcginnis, brown or black) in the wound bed. MTDD
--- NOTE | 2023-05-11 12:12 | CDI ---
Documentation Clarification Form Date: 05/11/2023 12:04:11 PM From: Kacie Israel RN, CCDS Email: [email or web address] Admit Date: 05/07/2023 12:24:00 AM Patient Name: Flaca Hinson Visit Number: [id number] Discharge Date: ATTENTION: The Clinical Documentation Specialists (CDI) and [facility] Coding Staff appreciate your assistance in clarifying documentation. Please respond to the clarification below the line at the bottom and electronically sign. The CDI & [facility] Coding staff will review the response and follow-up if needed. Please note: Queries are made part of the Legal Health Record. If you have any questions, please contact the author of this message via ITS. Dr. Latisha Tucker Patient has a documented BMI of 43.8. Additional clarification is requested. History/Risk Factors: diabetic foot wound, HTN, CHF, Right BKA, Type2 DM Clinical Indicators: RD: obese, increased metabolic demand for wound healing Patients weight is: 127 kg Patients height is: 5ft 7 in Calculated BMI is: 43.8 Skin care/assessment: stage II pressure injury to left buttock Treatments: increase nutrient needs of protein, zinc and vitamin C, carbohydrate modified diet, commercial beverage, Glucerna BID Dietary Consult: see above Please clarify if patients BMI indicates an additional diagnosis: [ x ] Morbid (Extreme) (severe) obesity [ ] No additional diagnosis/not clinically significant [ ] Other, please specify ____ [ ] Unable to determine Reference: NIH Classification for BMI Overweight BMI 2529.9 Obesity (Class 1) BMI 3034.9 Obesity (Class 2) BMI 3539.9 Morbid obesity (Class 3/Extreme/severe) BMI =40 MTDD
--- NOTE | 2023-05-11 15:06 | P.PN ---
Subjective Progress Note Date: 05/11/23 Principal diagnosis: Left leg cellulitis Patient is a 47-year female with a past medical history significant for diabetes mellitus patient did have history of diabetic foot infection requiring right greater than amputation currently to have a nonhealing wound to the plantar aspect of the left foot with multiple infection presented to hospital with left lower extremity cellulitis. On today's evaluation that is 05/11/2023 patient continues to be afebrile the patient is breathing comfortably on 2 L nasal cannula oxygen , the patient denies any chest pain shortness of breath, no abdominal pain swelling redness and pain to the left leg has slightly decreased in intensity Objective - Vital Signs Vital signs: Vital Signs Temp 97.6 F 05/11/23 12:42 Pulse 71 05/11/23 12:42 Resp 19 05/11/23 12:42 BP 126/73 05/11/23 12:42 Pulse Ox 99 05/11/23 12:42 FiO2 Intake & Output 05/10/23 05/11/23 05/11/23 18:59 06:59 18:59 Intake Total 1234 Output Total 2250 900 Balance -1016 -900 Intake: Oral 1234 Output: Urine 2250 900 Other: Voiding Method External Catheter External Catheter External Catheter # Voids 1 - Exam GENERAL DESCRIPTION middle-aged female lying in bed in no distress RESPIRATORY SYSTEM: Unlabored breathing , decreased breath sounds at bases HEART: S1 S2 regular rate and rhythm ,no loud murmurs ABDOMEN: Soft , no tenderness EXTREMITIES: Left lower extremity swelling and redness has decreased - Labs CBC & Chem 7: 05/10/23 05:52 05/11/23 07:29 Labs: Abnormal Lab Results - Last 24 Hours (Table) 05/10/23 05/10/23 05/10/23 Range/Units 05:47 16:30 20:19 Carbon Dioxide (22-30) mmol/L BUN (7-17) mg/dL Creatinine (0.52-1.04) mg/dL POC Glucose (mg/dL) 154 H 148 H (70-110) mg/dL Calcium (8.4-10.2) mg/dL Magnesium 2.5 H (1.6-2.3) mg/dL 05/11/23 05/11/23 05/11/23 Range/Units 07:29 07:29 11:40 Carbon Dioxide 21 L (22-30) mmol/L BUN 70 H (7-17) mg/dL Creatinine 1.14 H (0.52-1.04) mg/dL POC Glucose (mg/dL) 133 H (70-110) mg/dL Calcium 8.2 L (8.4-10.2) mg/dL Magnesium 2.6 H (1.6-2.3) mg/dL Microbiology - Last 24 Hours (Table) 05/08/23 16:35 Anaerobic Culture - Preliminary Foot - Left 05/08/23 16:35 Gram Stain - Preliminary Foot - Left Wound Culture - Preliminary Gram Neg Bacilli Gram Neg Bacilli#2 Strep A Assessment and Plan (1) Diabetic foot ulcer Current Visit: Yes Status: Acute Code(s): E11.621 - TYPE 2 DIABETES MELLITUS WITH FOOT ULCER; L97.509 - NON-PRESSURE CHRONIC ULCER OTH PRT UNSP FOOT W UNSP SEVERITY SNOMED Code(s): 303740512 (2) Left leg cellulitis Current Visit: Yes Status: Acute Code(s): L03.116 - CELLULITIS OF LEFT LOWER LIMB SNOMED Code(s): 224273088 Plan: 1patient presented hospital with extensive left lower extremity cellulitis source is likely left diabetic foot wound and will need to cover for resistant gram-positive as well as gram-negative keeping in mind her chronic history of diabetic foot wound and multiple infection and exposure to antibiotic therapy 2- local wound care with Medihoney followed by moist dressing change daily 3-Local cultures currently growing gram-negative bacilli as well as Streptococcus, ID sensitivities on gram-negative/currently pending, we will continue the patient on cefepime, discharge antibiotic on the basis of final culture Time with Patient: Less than 30
[2023-05-11 16:31] LABS: Glucose,Whole Blood 165 mg/dL (70-110)
[2023-05-11 20:23] LABS: Glucose,Whole Blood 148 mg/dL (70-110)
[2023-05-11] MEDS: INSULIN DETEMIR (LEVEMIR) 100 UNIT/ML SYR SQ SCH (20:48)
[2023-05-11] MEDS: ALPRAZolam 0.5 MG TAB PO SCH (20:48)
[2023-05-11] MEDS: CEFEPIME 2 GM in SODIUM CHLORIDE 0.9% 100 ML IVPB SCH (20:49)
[2023-05-12] MEDS: INSULIN ASPART (NovoLOG) 100 UNIT/ML VIAL SQ SCH ×3 (05:48→17:16)
[2023-05-12 05:49] LABS: Glucose,Whole Blood 101 mg/dL (70-110)
--- NOTE | 2023-05-12 05:53 | P.PN ---
Subjective Progress Note Date: 05/11/23 Patient is a 47-year-old female with a known history of hypertension, diabetes type 2 insulin-dependent, chronic CHF, A-fib on anticoagulation, nonischemic cardiomyopathy status post ICD placement, history of CT, seizure disorder, history of ESBL E. 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 Patient states that her symptoms have been there for almost a week and during the last 2 days with worsening pain. Patient does have left foot plantar wound and is on follow-up with wound care clinic. He is also having increased drainage. Denies any fever. Feels overall weak. Denies any complaints of chest pain or shortness of breath. No nausea vomiting abdominal pain or diarrhea. Foot x-ray showed left midfoot amputation the amputation site there is no evidence for osseous erosion to suggest osteomyelitis. There is no evidence of fracture. There is mild soft tissue swelling. No significant change from prior. EKG showed electronic ventricular paced rhythm. Laboratory data showed WBC 24.7 hemoglobin 11.0 and platelets 189 sodium 130 potassium 4.6 chloride 97 bicarb is 19 BUN 69 and creatinine 1.57 and blood sugar 192 AST 108 ALT 113 and alk phos 78. Patient was afebrile on admission. Tachycardic with heart rate 101. Pulse ox 98% on room air. 05/08/2023. Patient is lying in the bed. Awake alert and oriented x3. No complaints of ch est pain or shortness of breath. Afebrile. Patient is hypotensive this morning with SBP in 60s. Patient was given 250 cc fluid bolus. Limit narcotic pain medications. Left lower extremity redness and swelling is still present. Blood pressure medications also on hold due to hypotension. Otherwise laboratory data showed WBC count improved to 13.1 hemoglobin 10.8 and platelets 190 Sodium 132 potassium 4.1 chloride 100 bicarb is 18 BUN 77 creatinine 2.51 and blood sugar is 150. Calcium 8.1. Patient is being continued on antibiotics cefepime and daptomycin. ID is on board. Current medications reviewed. 05/09/2023 Patient is seen and evaluated and follow-up with infectious disease following an maintained on cefepime and daptomycin and awaiting cultures to finalized. Patient extremely lethargic although arouses easily. Blood pressures have been extremely soft and on the lower side recommend holding blood pressure medications for now. Patient was given a dental 250 mL bolus with some improvement although continues to be low. Patient is asymptomatic and reports her blood pressure is frequently low. Patient currently wearing 2-3 L of oxygen and does not normally wear this at home and oxygen saturations have been above 95% recommend weaning FiO2 as tolerated. Patient is afebrile with no reports of chest pain or shortness of breath noted. WBC slightly elevated also kidney functions are worsening and above to today will consult nephrology and appreciate input and recommendations. Encouraged oral intake and increased activity as tolerated 05/10/2023 Patient is seen and evaluated in follow-up this morning continues to be lethargic although easily arousable. Patient being followed by infectious disease awaiting cultures and maintained on IV antibiotics in the form of cefepime and daptomycin. Patient to continue with local wound care to left lower extremity and elevating on rest. Patient is having some improvements in redness and swelling. Patient had an increase in worsening kidney functions and nephrology consulted and following. Patient blood pressure continues to be low. On midodrine now and will monitor blood pressures closely. Encouraged oral int danyelle and increased activity as tolerated. Patient has not been getting up out of bed much and is mostly sleeping throughout the day. 05/11/2073 Patient is seen and evaluated in follow-up today awake and alert today. Patient is being continued on cefepime with infectious disease following awaiting discharge antibiotic recommendations. Cultures pending showing gram-negative bacilli and will follow-up with micro-lab. Patient is currently afebrile denies chest pain or shortness of breath. Patient is tolerating diet with no reports of nausea or vomiting. Patient reports she plans on returning home on discharge and also reports she has had antibiotics in the outpatient setting in the past. Case management is following will discuss further with finalized cultures. Review of systems: Constitutional: reports of fatigue, no fever, or chills Cardiovascular: No reports of chest pain or palpitations Respiratory: No reports of shortness of breath or cough GI: No reports of nausea, vomiting, or diarrhea : No reports of dysuria or retention Neurovascular: reports of generalized weakness , reports some left leg heaviness and pain with movement has been ongoing All medications have been reviewed PHYSICAL EXAMINATION: Patient is lying in the bed comfortably awake, alert and oriented.. Morbidly obese. HEENT: Normocephalic. Neck is supple. Pupils reactive. Nostrils clear. Oral cavi ty is moist. Neck reveals no JVD, carotid bruits, or thyromegaly. CHEST EXAMINATION: Trachea is central. Symmetrical expansion. Lung nieves clear to auscultation and percussion. CARDIAC: Normal S1, S2 with no gallops. No murmurs ABDOMEN: Soft. Obese. Bowel sounds present. Nontender. No organomegaly. No abdominal bruits. Extremities: Left lower EXTR swelling 1+ with redness and warmth. There is some improvement in swelling and redness has gone down. Left foot wound is bandaged. Right BKA No clubbing or cyanosis Neurologically awake, alert, oriented x3 with well-coordinated movements. No focal deficits noted Skin: No rash or skin lesions. Psychiatric: Cooperative. Non-suicidal, Musculoskeletal: No joint swelling or deformity. Normal range of motion. Assessment: Left diabetic foot infection and lower extremity cellulitis. Sepsis secondary to above Hypovolemic hyponatremia improving Acute kidney injury, acute tubular necrosis with underlying CKD stage III, likely secondary to hypotension Mild transaminitis History of left great toe and partial foot amputation Diabetes type 2 insulin-dependent Nonischemic cardiomyopathy status post ICD placement Paroxysmal atrial fibrillation on anticoagulation with Eliquis Morbid obesity with a BMI 43.9 Stage II pressure ulcer to the left buttock, present on admission Hypertension History CT COPD History of CVA/TIA History of ESBL, VRE foot infections Bipolar disorder Prior history of smoking and marijuana use GI prophylaxis DVT prophylaxis Full code Plan: Patient will be continued on antibiotics in the form of cefepime. ID is following. Awaiting finalized cultures. Preliminary showing gram-negative bacilli Patient continued on insulin regimen and sliding scale. Recommend monitoring Accu-Cheks before meals and at bedtime and will titrate accordingly Continue with anticoagulation with Eliquis and other cardiac medications. Kidney function improving with nephrology following oral bicarb added Blood pressure medications and diuretics on hold due to hypotension. Will discuss further with infectious disease once cultures are finalized to determine discharge antibiotics and treatment plan moving forward Prognosis guarded with multiple medical problems and comorbid conditions. Possible discharge in the next 24-48 hours The impression and plan of care has been dictated by Nurse Donald Wong as directed. Dr. Caitlin MD I have performed a history and examination and MDM of this patient, discussed the same with the dictator, and agree with the dictator's assessment and plan as written ,documented as a scribe. Based on total visit time, I have performed more than 50% of the visit. Objective - Vital Signs Vital signs: Vital Signs Temp 97.6 F 05/11/23 07:05 Pulse 70 05/11/23 07:05 Resp 15 05/11/23 07:05 BP 89/50 05/11/23 07:05 Pulse Ox 97 05/11/23 07:05 FiO2 Intake & Output 05/10/23 05/11/23 05/11/23 18:59 06:59 18:59 Intake Total 1234 Output Total 2250 900 Balance -1016 -900 Intake: Oral 1234 Output: Urine 2250 900 Other: Voiding Method External Catheter External Catheter # Voids 1 - Labs CBC & Chem 7: 05/10/23 05:52 05/11/23 07:29 Labs: Abnormal Lab Results - Last 24 Hours (Table) 05/10/23 05/10/23 05/10/23 Range/Units 05:47 16:30 20:19 Carbon Dioxide (22-30) mmol/L BUN (7-17) mg/dL Creatinine (0.52-1.04) mg/dL POC Glucose (mg/dL) 154 H 148 H (70-110) mg/dL Calcium (8.4-10.2) mg/dL Magnesium 2.5 H (1.6-2.3) mg/dL 05/11/23 05/11/23 Range/Units 07:29 07:29 Carbon Dioxide 21 L (22-30) mmol/L BUN 70 H (7-17) mg/dL Creatinine 1.14 H (0.52-1.04) mg/dL POC Glucose (mg/dL) (70-110) mg/dL Calcium 8.2 L (8.4-10.2) mg/dL Magnesium 2.6 H (1.6-2.3) mg/dL Microbiology - Last 24 Hours (Table) 05/08/23 16:35 Anaerobic Culture - Preliminary Foot - Left 05/08/23 16:35 Gram Stain - Preliminary Foot - Left Wound Culture - Preliminary Gram Neg Bacilli Gram Neg Bacilli#2 Strep A
[2023-05-12] MEDS: MIDODRINE 5 MG TAB PO SCH ×3 (06:11→17:16)
[2023-05-12 06:51] LABS: African American GFR (CKD) 87 (>60 ml/min/1.73 sqM); Anion Gap 7 mmol/L; Blood Urea Nitrogen 50 mg/dL (7-17); Calcium 8.1 mg/dL (8.4-10.2); Carbon Dioxide 23 mmol/L (22-30); Chloride 107 mmol/L (98-107); Glucose 98 mg/dL (74-99); Magnesium 2.5 mg/dL (1.6-2.3); Non-African American GFR(CKD) 76 (>60 ml/min/1.73 sqM); Sodium 137 mmol/L (137-145)
[2023-05-12] MEDS: CEFEPIME 2 GM in SODIUM CHLORIDE 0.9% 100 ML IVPB SCH ×2 (09:01→20:45)
[2023-05-12] MEDS: SODIUM BICARBONATE TAB 650 MG TAB PO SCH ×2 (09:01→20:45)
[2023-05-12] MEDS: APIXABAN 5 MG TAB PO SCH ×2 (09:01→20:43)
[2023-05-12] MEDS: GABAPENTIN 300 MG CAP PO SCH ×3 (09:01→20:43)
[2023-05-12] MEDS: METOPROLOL TARTRATE 25 MG TAB PO SCH ×2 (09:01→20:43)
[2023-05-12] MEDS: diphenhydrAMINE 25 MG CAP PO PRN ×2 (09:06→20:43)
[2023-05-12 10:56] LABS: Glucose,Whole Blood 143 mg/dL (70-110)
--- NOTE | 2023-05-12 11:29 | P.PN ---
Subjective Patient is seen for follow-up for acute kidney injury on top of chronic kidney disease. Renal function has improved Serum creatinine down to 0.9 mg/dL from peak of 2.55. Maintained on midodrine for low blood pressure. Objective - Vital Signs Vital signs: Vital Signs Temp 97.5 F L 05/12/23 07:25 Pulse 66 05/12/23 11:20 Resp 16 05/12/23 07:25 BP 114/73 05/12/23 11:20 Pulse Ox 91 L 05/12/23 07:25 FiO2 Intake & Output 05/11/23 05/12/23 05/12/23 18:59 06:59 18:59 Output Total 600 Balance -600 Output: Urine 600 Other: Voiding Method External Catheter External Catheter External Catheter # Voids 3 - Exam Patient is awake, comfortable, no acute distress Examination of the heart S1 and S2 Examination of the lungs decreased breath sounds at the bases Abdomen is soft nontender Examination of lower extremities shows right BKA and left foot is wrapped, erythema on the right lower leg seems to be decreasing. Edema noted about 2+ only on the left leg - Labs CBC & Chem 7: 05/10/23 05:52 05/12/23 06:15 Labs: Abnormal Lab Results - Last 24 Hours (Table) 05/11/23 05/11/23 05/11/23 Range/Units 11:40 16:30 20:22 BUN (7-17) mg/dL POC Glucose (mg/dL) 133 H 165 H 148 H (70-110) mg/dL Calcium (8.4-10.2) mg/dL Magnesium (1.6-2.3) mg/dL 05/12/23 05/12/23 Range/Units 06:15 10:54 BUN 50 H (7-17) mg/dL POC Glucose (mg/dL) 143 H (70-110) mg/dL Calcium 8.1 L (8.4-10.2) mg/dL Magnesium 2.5 H (1.6-2.3) mg/dL Microbiology - Last 24 Hours (Table) 05/06/23 21:30 Blood Culture - Final Blood 05/06/23 21:30 Blood Culture - Final Blood 05/08/23 16:35 Gram Stain - Preliminary Foot - Left Wound Culture - Preliminary Gram Neg Bacilli Gram Neg Bacilli#2 Strep A Assessment and Plan Assessment: 1. Acute kidney injury secondary to ATN secondary to hypotension. Creatinine peaked at 2.5 this admission and is 0.9 today. UA benign. 2. Chronic kidney disease stage IIIa with baseline creatinine 1.1-1.2 secondary to diabetic kidney disease and cardiorenal syndrome. 3. Metabolic acidosis secondary to acute kidney injury. 4. Left lower extremity cellulitis/wound being followed by ID. on oral bicarb. Improved. 5. Diabetes mellitus. 6. Status post right BKA. 7. Hypovolemic hyponatremia secondary to acute kidney injury. Diuretics held. Improved. 8. Chronic systolic CHF with ejection fraction of less than 20% status post AICD. Plan: Continue with midodrine as needed. Blood pressure is improved Continue to hold diuretics for at least 1 more day
--- NOTE | 2023-05-12 15:30 | P.PN ---
Subjective Progress Note Date: 05/12/23 Principal diagnosis: Left leg cellulitis Patient is a 47-year female with a past medical history significant for diabetes mellitus patient did have history of diabetic foot infection requiring right greater than amputation currently to have a nonhealing wound to the plantar aspect of the left foot with multiple infection presented to hospital with left lower extremity cellulitis. On today's evaluation that is 05/12/2023 patient remains to be afebrile the patient is breathing comfortably on 2 L nasal cannula oxygen , the patient denies any chest pain shortness of breath, no abdominal pain, the patient swelling redness to the left leg has slightly decreased in intensity, also mentioned pain has decreased Objective - Vital Signs Vital signs: Vital Signs Temp 97.5 F L 05/12/23 07:25 Pulse 66 05/12/23 11:20 Resp 16 05/12/23 07:25 BP 114/73 05/12/23 11:20 Pulse Ox 91 L 05/12/23 07:25 FiO2 Intake & Output 05/11/23 05/12/23 05/12/23 18:59 06:59 18:59 Output Total 600 Balance -600 Output: Urine 600 Other: Voiding Method External Catheter External Catheter External Catheter # Voids 3 - Exam GENERAL DESCRIPTION middle-aged female lying in bed in no distress RESPIRATORY SYSTEM: Unlabored breathing , decreased breath sounds at bases HEART: S1 S2 regular rate and rhythm ,no loud murmurs ABDOMEN: Soft , no tenderness EXTREMITIES: Left lower extremity swelling and redness has decreased - Labs CBC & Chem 7: 05/10/23 05:52 05/12/23 06:15 Labs: Abnormal Lab Results - Last 24 Hours (Table) 05/11/23 05/11/23 05/11/23 Range/Units 11:40 16:30 20:22 BUN (7-17) mg/dL POC Glucose (mg/dL) 133 H 165 H 148 H (70-110) mg/dL Calcium (8.4-10.2) mg/dL Magnesium (1.6-2.3) mg/dL 05/12/23 05/12/23 Range/Units 06:15 10:54 BUN 50 H (7-17) mg/dL POC Glucose (mg/dL) 143 H (70-110) mg/dL Calcium 8.1 L (8.4-10.2) mg/dL Magnesium 2.5 H (1.6-2.3) mg/dL Microbiology - Last 24 Hours (Table) 05/06/23 21:30 Blood Culture - Final Blood 05/06/23 21:30 Blood Culture - Final Blood 05/08/23 16:35 Gram Stain - Preliminary Foot - Left Wound Culture - Preliminary Gram Neg Bacilli Gram Neg Bacilli#2 Strep A Assessment and Plan (1) Diabetic foot ulcer Current Visit: Yes Status: Acute Code(s): E11.621 - TYPE 2 DIABETES MELLITUS WITH FOOT ULCER; L97.509 - NON-PRESSURE CHRONIC ULCER OTH PRT UNSP FOOT W UNSP SEVERITY SNOMED Code(s): 289015275 (2) Left leg cellulitis Current Visit: Yes Status: Acute Code(s): L03.116 - CELLULITIS OF LEFT LOWER LIMB SNOMED Code(s): 479689652 Plan: 1patient presented hospital with extensive left lower extremity cellulitis source is likely left diabetic foot wound and will need to cover for resistant gram-positive as well as gram-negative keeping in mind her chronic history of diabetic foot wound and multiple infection and exposure to antibiotic therapy 2- local wound care with [facility] followed by moist dressing change daily 3-Local cultures currently growing gram-negative bacilli as well as Streptococcus, ID sensitivities on gram-negative/currently pending as of 05/12/2023 4-patient will continue the patient on cefepime, discharge antibiotic on the basis of final culture Time with Patient: Less than 30
[2023-05-12 16:48] LABS: Glucose,Whole Blood 179 mg/dL (70-110)
[2023-05-12 20:06] LABS: Glucose,Whole Blood 118 mg/dL (70-110)
[2023-05-12] MEDS: ALPRAZolam 0.5 MG TAB PO SCH (20:43)
[2023-05-12] MEDS: ACETAMINOPHEN TAB 325 MG TAB PO PRN (20:44)
[2023-05-12] MEDS: INSULIN DETEMIR (LEVEMIR) 100 UNIT/ML SYR SQ SCH (20:45)
[2023-05-12] MEDS: IPRATROPIUM-ALBUTEROL 3 ML NEB INHALATION PRN (21:20)
--- NOTE | 2023-05-13 04:58 | P.PN ---
Subjective Progress Note Date: 05/12/23 Patient is a 47-year-old female with a known history of hypertension, diabetes type 2 insulin-dependent, chronic CHF, A-fib on anticoagulation, nonischemic cardiomyopathy status post ICD placement, history of MO, seizure disorder, history of ESBL E. 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 Patient states that her symptoms have been there for almost a week and during the last 2 days with worsening pain. Patient does have left foot plantar wound and is on follow-up with wound care clinic. He is also having increased drainage. Denies any fever. Feels overall weak. Denies any complaints of chest pain or shortness of breath. No nausea vomiting abdominal pain or diarrhea. Foot x-ray showed left midfoot amputation the amputation site there is no evidence for osseous erosion to suggest osteomyelitis. There is no evidence of fracture. There is mild soft tissue swelling. No significant change from prior. EKG showed electronic ventricular paced rhythm. Laboratory data showed WBC 24.7 hemoglobin 11.0 and platelets 189 sodium 130 potassium 4.6 chloride 97 bicarb is 19 BUN 69 and creatinine 1.57 and blood sugar 192 AST 108 ALT 113 and alk phos 78. Patient was afebrile on admission. Tachycardic with heart rate 101. Pulse ox 98% on room air. 05/08/2023. Patient is lying in the bed. Awake alert and oriented x3. No complaints of ch est pain or shortness of breath. Afebrile. Patient is hypotensive this morning with SBP in 60s. Patient was given 250 cc fluid bolus. Limit narcotic pain medications. Left lower extremity redness and swelling is still present. Blood pressure medications also on hold due to hypotension. Otherwise laboratory data showed WBC count improved to 13.1 hemoglobin 10.8 and platelets 190 Sodium 132 potassium 4.1 chloride 100 bicarb is 18 BUN 77 creatinine 2.51 and blood sugar is 150. Calcium 8.1. Patient is being continued on antibiotics cefepime and daptomycin. ID is on board. Current medications reviewed. 05/09/2023 Patient is seen and evaluated and follow-up with infectious disease following an maintained on cefepime and daptomycin and awaiting cultures to finalized. Patient extremely lethargic although arouses easily. Blood pressures have been extremely soft and on the lower side recommend holding blood pressure medications for now. Patient was given a dental 250 mL bolus with some improvement although continues to be low. Patient is asymptomatic and reports her blood pressure is frequently low. Patient currently wearing 2-3 L of oxygen and does not normally wear this at home and oxygen saturations have been above 95% recommend weaning FiO2 as tolerated. Patient is afebrile with no reports of chest pain or shortness of breath noted. WBC slightly elevated also kidney functions are worsening and above to today will consult nephrology and appreciate input and recommendations. Encouraged oral intake and increased activity as tolerated 05/10/2023 Patient is seen and evaluated in follow-up this morning continues to be lethargic although easily arousable. Patient being followed by infectious disease awaiting cultures and maintained on IV antibiotics in the form of cefepime and daptomycin. Patient to continue with local wound care to left lower extremity and elevating on rest. Patient is having some improvements in redness and swelling. Patient had an increase in worsening kidney functions and nephrology consulted and following. Patient blood pressure continues to be low. On midodrine now and will monitor blood pressures closely. Encouraged oral int danyelle and increased activity as tolerated. Patient has not been getting up out of bed much and is mostly sleeping throughout the day. 05/11/2073 Patient is seen and evaluated in follow-up today awake and alert today. Patient is being continued on cefepime with infectious disease following awaiting discharge antibiotic recommendations. Cultures pending showing gram-negative bacilli and will follow-up with micro-lab. Patient is currently afebrile denies chest pain or shortness of breath. Patient is tolerating diet with no reports of nausea or vomiting. Patient reports she plans on returning home on discharge and also reports she has had antibiotics in the outpatient setting in the past. Case management is following will discuss further with finalized cultures. 05/12/2023 Patient is seen this morning with no acute overnight issues noted. Swelling and redness improving on the left lower extremity and continuing to wait for denies cultures and gram-negative. Proteus is showing and having to call micro-lab in [place] daily for updates regarding finalized cultures and sensitivities. Infectious disease is following and patient is continued on IV antibiotics for now. Discussed with the patient about possibly IV antibiotics and discharge patient reports is a very difficult stick and has difficulty with previous PICC line going bad multiple times in the past. Discussed with infectious disease and hopeful for oral although pending finalized cultures. Patient is afebrile denies chest pain or shortness of breath. Patient tolerating diet with no reports of nausea or vomiting noted. Recommend continue with local wound care Review of systems: Constitutional: reports of fatigue, no fever, or chills Cardiovascular: No reports of chest pain or palpitations Respiratory: No reports of shortness of breath or cough GI: No reports of nausea, vomiting, or diarrhea : No reports of dysuria or retention Neurovascular: reports of generalized weakness , reports some left leg pain with movement has been ongoing All medications have been reviewed PHYSICAL EXAMINATION: Patient is lying in the bed comfortably awake, alert and oriented.. Morbidly obese. HEENT: Normocephalic. Neck is supple. Pupils reactive. Nostrils clear. Oral cavity is moist. Neck reveals no JVD, carotid bruits, or thyromegaly. CHEST EXAMINATION: Trachea is central. Symmetrical expansion. Lung nieves clear to auscultation and percussion. CARDIAC: Normal S1, S2 with no gallops. No murmurs ABDOMEN: Soft. Obese. Bowel sounds present. Nontender. No organomegaly. No abdominal bruits. Extremities: Left lower EXTR swelling 1+ with redness and warmth. There is some improvement in swelling and redness has gone down. Left foot wound is bandaged. Right BKA No clubbing or cyanosis Neurologically awake, alert, oriented x3 with well-coordinated movements. No focal deficits noted Skin: No rash or skin lesions. Psychiatric: Cooperative. Non-suicidal, Musculoskeletal: No joint swelling or deformity. Normal range of motion. Assessment: Left diabetic foot infection and lower extremity cellulitis. Sepsis secondary to above Hypovolemic hyponatremia improving Acute kidney injury, acute tubular necrosis with underlying CKD stage III, likely secondary to hypotension Mild transaminitis History of left great toe and partial foot amputation Diabetes type 2 insulin-dependent Nonischemic cardiomyopathy status post ICD placement Paroxysmal atrial fibrillation on anticoagulation with Eliquis Morbid obesity with a BMI 43.9 Stage II pressure ulcer to the left buttock, present on admission Hypertension History MO COPD history, not in exacerbation History of CVA/TIA History of ESBL, VRE foot infections Bipolar disorder Prior history of smoking and marijuana use GI prophylaxis DVT prophylaxis Full code Plan: Patient will be continued on antibiotics in the form of cefepime. ID is foll owing. Awaiting finalized cultures. Preliminary showing gram-negative bacilli and Proteus with strep a Patient continued on insulin regimen and sliding scale. Recommend monitoring Accu-Cheks before meals and at bedtime and will titrate accordingly Continue with anticoagulation with Eliquis and other cardiac medications. Kidney function improving with nephrology following an recommend holding diuretics at least one more day Blood pressure medications and diuretics on hold due to hypotension. Improving and using midodrine as needed Will discuss further with infectious disease once cultures are finalized to determine discharge antibiotics and treatment plan moving forward. Patient reports she is a very difficult IV start and has had multiple PICC line in the past they have gone bad Prognosis guarded with multiple medical problems and comorbid conditions. Possible discharge in the next 24-48 hours The impression and plan of care has been dictated by Aretha Silver, Nurse Practitioner as directed. Dr. Caitlin MD I have performed a history and examination and MDM of this patient, discussed the same with the dictator, and agree with the dictator's assessment and plan as written ,documented as a scribe. Based on total visit time, I have performed more than 50% of the visit. Objective - Vital Signs Vital signs: Vital Signs Temp 97.5 F L 05/12/23 07:25 Pulse 53 L 05/12/23 07:25 Resp 16 05/12/23 07:25 BP 121/72 05/12/23 07:25 Pulse Ox 91 L 05/12/23 07:25 FiO2 Intake & Output 05/11/23 05/12/23 05/12/23 18:59 06:59 18:59 Output Total 600 Balance -600 Output: Urine 600 Other: Voiding Method External Catheter External Catheter External Catheter # Voids 3 - Labs CBC & Chem 7: 05/10/23 05:52 05/12/23 06:15 Labs: Abnormal Lab Results - Last 24 Hours (Table) 05/11/23 05/11/23 05/11/23 Range/Units 11:40 16:30 20:22 BUN (7-17) mg/dL POC Glucose (mg/dL) 133 H 165 H 148 H (70-110) mg/dL Calcium (8.4-10.2) mg/dL Magnesium (1.6-2.3) mg/dL 05/12/23 Range/Units 06:15 BUN 50 H (7-17) mg/dL POC Glucose (mg/dL) (70-110) mg/dL Calcium 8.1 L (8.4-10.2) mg/dL Magnesium 2.5 H (1.6-2.3) mg/dL Microbiology - Last 24 Hours (Table) 05/06/23 21:30 Blood Culture - Final Blood 05/06/23 21:30 Blood Culture - Final Blood 05/08/23 16:35 Gram Stain - Preliminary Foot - Left Wound Culture - Preliminary Gram Neg Bacilli Gram Neg Bacilli#2 Strep A
[2023-05-13 06:08] LABS: Glucose,Whole Blood 95 mg/dL (70-110)
[2023-05-13] MEDS: INSULIN ASPART (NovoLOG) 100 UNIT/ML VIAL SQ SCH ×2 (06:13→12:29)
[2023-05-13] MEDS: MIDODRINE 5 MG TAB PO SCH ×2 (07:02→12:27)
[2023-05-13] MEDS: APIXABAN 5 MG TAB PO SCH (08:56)
[2023-05-13] MEDS: CEFEPIME 2 GM in SODIUM CHLORIDE 0.9% 100 ML IVPB SCH (08:56)
[2023-05-13] MEDS: METOPROLOL TARTRATE 25 MG TAB PO SCH (08:56)
[2023-05-13] MEDS: GABAPENTIN 300 MG CAP PO SCH (08:56)
[2023-05-13] MEDS: SODIUM BICARBONATE TAB 650 MG TAB PO SCH (08:56)
[2023-05-13] MEDS: diphenhydrAMINE 25 MG CAP PO PRN (09:01)
[2023-05-13] MEDS: ACETAMINOPHEN TAB 325 MG TAB PO PRN (09:01)
--- NOTE | 2023-05-13 10:43 | P.PN ---
Subjective Patient is seen for follow-up for acute kidney injury on top of chronic kidney disease. Renal function has improved Serum creatinine down to 0.9 mg/dL from peak of 2.55. Maintained on midodrine for low blood pressure. Objective - Vital Signs Vital signs: Vital Signs Temp 98.2 F 05/13/23 07:37 Pulse 61 05/13/23 07:37 Resp 17 05/13/23 07:37 BP 133/76 05/13/23 07:37 Pulse Ox 96 05/13/23 07:37 FiO2 Intake & Output 05/12/23 05/13/23 05/13/23 18:59 06:59 18:59 Output Total 1000 500 Balance -1000 -500 Weight 127.006 kg Output: Urine 1000 500 Other: Voiding Method External Catheter External Catheter External Catheter # Bowel Movements 1 - Exam Patient is awake, comfortable, no acute distress Examination of the heart S1 and S2 Examination of the lungs decreased breath sounds at the bases Abdomen is soft nontender Examination of lower extremities shows right BKA and left foot is wrapped, erythema on the right lower leg seems to be decreasing. Edema noted about 2+ only on the left leg - Labs CBC & Chem 7: 05/10/23 05:52 05/12/23 06:15 Labs: Abnormal Lab Results - Last 24 Hours (Table) 05/12/23 05/12/23 05/12/23 Range/Units 10:54 16:46 20:05 POC Glucose (mg/dL) 143 H 179 H 118 H (70-110) mg/dL Microbiology - Last 24 Hours (Table) 05/08/23 16:35 Anaerobic Culture - Final Foot - Left 05/08/23 16:35 Gram Stain - Preliminary Foot - Left Wound Culture - Preliminary Proteus vulgaris Alcaligen. faecalis Strep A Assessment and Plan Assessment: 1. Acute kidney injury secondary to ATN secondary to hypotension. Creatinine peaked at 2.5 this admission and is 0.9 as of yesterday. UA benign. 2. Chronic kidney disease stage IIIa with baseline creatinine 1.1-1.2 secondary to diabetic kidney disease and cardiorenal syndrome. 3. Metabolic acidosis secondary to acute kidney injury. 4. Left lower extremity cellulitis/wound being followed by ID. on oral bicarb. Improved. 5. Diabetes mellitus. 6. Status post right BKA. 7. Hypovolemic hyponatremia secondary to acute kidney injury. Diuretics held. Improved. 8. Chronic systolic CHF with ejection fraction of less than 20% status post AICD. Plan: Continue with midodrine as needed. Blood pressure is improved Resume low-dose loop diuretics
[2023-05-13 11:11] LABS: Glucose,Whole Blood 139 mg/dL (70-110)
[2023-05-13 14:48] VITALS: BP 128/71; PULSE 75; RESP 16; TEMP 97.8
--- NOTE | 2023-05-13 15:21 | P.PN ---
Subjective Progress Note Date: 05/13/23 Principal diagnosis: Left leg cellulitis Patient is a 47-year female with a past medical history significant for diabetes mellitus patient did have history of diabetic foot infection requiring right greater than amputation currently to have a nonhealing wound to the plantar aspect of the left foot with multiple infection presented to hospital with left lower extremity cellulitis. On today's evaluation that is 05/13/2023 patient denies any fever or any chills the patient is breathing comfortably on 2 L nasal cannula oxygen , the patient denies any chest pain shortness of breath, no abdominal pain, the patient swelling redness the left leg has decreased and denies pain to the left lower extremity Objective - Vital Signs Vital signs: Vital Signs Temp 98.2 F 05/13/23 07:37 Pulse 61 05/13/23 07:37 Resp 17 05/13/23 07:37 BP 133/76 05/13/23 07:37 Pulse Ox 96 05/13/23 07:37 FiO2 Intake & Output 05/12/23 05/13/23 05/13/23 18:59 06:59 18:59 Output Total 1000 500 Balance -1000 -500 Weight 127.006 kg Output: Urine 1000 500 Other: Voiding Method External Catheter External Catheter External Catheter # Bowel Movements 1 - Exam GENERAL DESCRIPTION middle-aged female lying in bed in no distress RESPIRATORY SYSTEM: Unlabored breathing , decreased breath sounds at bases HEART: S1 S2 regular rate and rhythm ,no loud murmurs ABDOMEN: Soft , no tenderness EXTREMITIES: Left lower extremity swelling and redness has decreased - Labs CBC & Chem 7: 05/10/23 05:52 05/12/23 06:15 Labs: Abnormal Lab Results - Last 24 Hours (Table) 05/12/23 05/12/23 05/13/23 Range/Units 16:46 20:05 11:09 POC Glucose (mg/dL) 179 H 118 H 139 H (70-110) mg/dL Microbiology - Last 24 Hours (Table) 05/08/23 16:35 Anaerobic Culture - Final Foot - Left 05/08/23 16:35 Gram Stain - Preliminary Foot - Left Wound Culture - Preliminary Proteus vulgaris Alcaligen. faecalis Strep A Assessment and Plan (1) Diabetic foot ulcer Current Visit: Yes Status: Acute Code(s): E11.621 - TYPE 2 DIABETES MELLITUS WITH FOOT ULCER; L97.509 - NON-PRESSURE CHRONIC ULCER OTH PRT UNSP FOOT W UNSP SEVERITY SNOMED Code(s): 735299113 (2) Left leg cellulitis Current Visit: Yes Status: Acute Code(s): L03.116 - CELLULITIS OF LEFT LOWER LIMB SNOMED Code(s): 442537262 Plan: 1patient presented hospital with extensive left lower extremity cellulitis source is likely left diabetic foot wound and will need to cover for resistant gram-positive as well as gram-negative keeping in mind her chronic history of d iabetic foot wound and multiple infection and exposure to antibiotic therapy 2- local wound care with Medihoney followed by moist dressing change daily 3-Local cultures grew Streptococcus Proteus and Alcagenes species 4--will finish finish therapy with oral Cipro and Keflex, discuss with the FRONT DESK COORDINATOR for admitting team Time with Patient: Less than 30
[2023-05-13] MEDS ORDERED: BUMETANIDE 1 MG TAB PO SCH (21:00)
--- NOTE | 2023-05-14 10:10 | P.DS ---
Providers Date of admission: 05/07/23 00:24 Expected date of discharge: 05/13/23 Attending physician: Latisha Tucker Consults: 05/07/23 00:24 Consult Physician Routine Consulting Provider: Casi Blake Consult Reason/Comments: cellulitis, foot wound Do you want consulting provider notified?: Yes 05/09/23 16:03 Consult Physician Urgent Consulting Provider: Melquiades Mtz Consult Reason/Comments: robbi, on bumex Do you want consulting provider notified?: Yes Primary care physician: Dylan Causey Hospital Course: Final diagnosis Left diabetic foot infection and lower extremity cellulitis. Sepsis secondary to above Hypovolemic hyponatremia improving Acute kidney injury, acute tubular necrosis with underlying CKD stage III, likely secondary to hypotension Mild transaminitis History of left great toe and partial foot amputation Diabetes type 2 insulin-dependent Nonischemic cardiomyopathy status post ICD placement Paroxysmal atrial fibrillation on anticoagulation with Eliquis Morbid obesity with a BMI 43.9 Stage II pressure ulcer to the left buttock, present on admission Hypertension History [place] COPD history, not in exacerbation History of CVA/TIA History of ESBL, VRE foot infections Bipolar disorder Prior history of smoking and marijuana use GI prophylaxis DVT prophylaxis Full code Discharge disposition Patient is being discharged in a stable condition with guarded prognosis to home with home care. Patient will follow-up with Dr. Causey in the outpatient setting upon discharge. Patient is to continue with oral Keflex along with Levaquin for 10 days per ID recommendations and close outpatient follow-up with infectious disease as scheduled. Total time taken is greater than 35 minutes. Hospital course This is a 47-year-old female who was recently admitted with left lower extremity redness and swelling with cellulitis being closely monitored. Patient also had some acute kidney injury and hypotension with hyponatremia being followed by nephrology. Patient is on oral diuretics in the form of Bumex which was on hold during hospitalization and kidney functions improved and nephrology recommending close outpatient follow-up with half dose of Bumex daily and to continue using midodrine as needed for low blood pressure. Patient to follow-up with cardiology as well regarding medication adjustments. Patient's finalized cultures of the wound show Proteus vulgaris along with algican faecalis, and strep a and will continue with oral Keflex along with Levaquin for a 10 day course and continue care and close outpatient follow-up with infectious disease. Please refer to other consultation notes for further HPI. Currently no reports of chest pain, shortness of breath, or palpitations. Patient is afebrile. No reports of nausea or vomiting and patient is tolerating diet. Patient will be discharged home today. Physical exam: Gen: This is a 47-year-old female who is awake, alert and oriented 3, well- developed, well-nourished, morbidly obese HEENT: Head is atraumatic, normocephalic. Pupils equal, round. Sclerae is anicteric. NECK: Supple. No JVD. No lymphadenopathy. No thyromegaly. LUNGS: Clear to auscultation. No wheezes or rhonchi. No intercostal retractions. HEART: Regular rate and rhythm. No murmur. ABDOMEN: Soft. obese Bowel sounds are present. No masses. No tenderness. EXTREMITIES: No pedal edema. No calf tenderness. were extremity swelling and redness significantly improved with some continued mild swelling. Right BKA noted NEUROLOGICAL: Patient is awake, alert and oriented x3. Cranial nerves 2 through 12 are grossly intact. Please refer to medication reconciliation sheet for a list of medications. The impression and plan of care has been dictated by Aretha Silver, Nurse Practitioner as directed. Dr. Caitlin MD I have performed a history and examination and MDM of this patient, discussed the same with the dictator, and agree with the dictator's assessment and plan as written ,documented as a scribe. Based on total visit time, I have performed more than 50% of the visit. Patient Condition at Discharge: Stable Plan - Discharge Summary New Discharge Prescriptions: New Midodrine [ProAmatine] 10 mg PO AC-TID PRN #30 tab PRN Reason: Hypotension Acetaminophen Tab [Tylenol] 650 mg PO Q6HR PRN tab PRN Reason: Mild Pain Or Fever > 100.5 diphenhydrAMINE [Benadryl] 25 mg PO TID PRN cap PRN Reason: Allergic Reaction Bumetanide [BUMEX] 0.5 mg PO BID #15 tab Cephalexin [Keflex] 500 mg PO Q6HR 10 Days #40 cap Levofloxacin [Levaquin] 500 mg PO DAILY 10 Days #10 tab Sodium Bicarbonate Tab 650 mg PO BID #60 tab Continue Insulin Glargine [Lantus Vial] 10 unit SQ HS Apixaban [Eliquis] 5 mg PO BID Ipratropium-Albuterol Nebulize [Duoneb 0.5 mg-3 mg/3 ml Soln] 3 ml INHALATION RT-TID PRN PRN Reason: Shortness Of Breath Gabapentin [Neurontin] 600 mg PO TID #9 tab Sacubitril/Valsartan [Entresto 49 mg-51 mg Tablet] 1 tab PO BID Metoprolol Tartrate [Lopressor] 25 mg PO BID Insulin Aspart [NovoLOG Flexpen] See Protocol SQ AC-TID PRN PRN Reason: Blood Sugar - High ALPRAZolam [Xanax] 0.5 mg PO HS Albuterol Sulfate [Albuterol Sulfate Hfa] 1 - 2 puff PO RT-Q6H PRN PRN Reason: Shortness Of Breath Discontinued Bumetanide [Bumex] 1 mg PO BID Discharge Medication List Insulin Glargine [Lantus Vial] 10 unit SQ HS 04/30/19 [History] Apixaban [Eliquis] 5 mg PO BID 07/27/19 [History] Ipratropium-Albuterol Nebulize [Duoneb 0.5 mg-3 mg/3 ml Soln] 3 ml INHALATION RT-TID PRN 05/21/20 [History] Gabapentin [Neurontin] 600 mg PO TID #9 tab 12/23/20 [Rx] ALPRAZolam [Xanax] 0.5 mg PO HS 05/07/23 [History] Albuterol Sulfate [Albuterol Sulfate Hfa] 1 - 2 puff PO RT-Q6H PRN 05/07/23 [History] Insulin Aspart [NovoLOG Flexpen] See Protocol SQ AC-TID PRN 05/07/23 [History] Metoprolol Tartrate [Lopressor] 25 mg PO BID 05/07/23 [History] Sacubitril/Valsartan [Entresto 49 mg-51 mg Tablet] 1 tab PO BID 05/07/23 [History] Acetaminophen Tab [Tylenol] 650 mg PO Q6HR PRN tab 05/13/23 [Rx] Bumetanide [BUMEX] 0.5 mg PO BID #15 tab 05/13/23 [Rx] Cephalexin [Keflex] 500 mg PO Q6HR 10 Days #40 cap 05/13/23 [Rx] Levofloxacin [Levaquin] 500 mg PO DAILY 10 Days #10 tab 05/13/23 [Rx] Midodrine [ProAmatine] 10 mg PO AC-TID PRN #30 tab 05/13/23 [Rx] Sodium Bicarbonate Tab 650 mg PO BID #60 tab 05/13/23 [Rx] diphenhydrAMINE [Benadryl] 25 mg PO TID PRN cap 05/13/23 [Rx] Follow up Appointment(s)/Referral(s): Dylan Causey MD [Primary Care Provider] - 1-2 days (Office will call you with your appointment date and time.) [facility], [NON-STAFF] - 1 Week ([facility] will call you to arrange a visit) Casi Blake MD [STAFF PHYSICIAN] - 1 Week (Office closed early on Tuesday. Please call office Tuesday for your appointment. Thank you.) Patient Instructions/Handouts: Cellulitis (GEN) Activity/Diet/Wound Care/Special Instructions: Activity Limited until follow-up Follow-up with wound care center in 1 week Continue local wound care Follow-up with primary care provider on discharge Follow-up with infectious disease outpatient continue taking medications as prescribed Discharge Disposition: HOME WITH HOME HEALTH SERVICES
== END 2023-05-13 16:39 | disposition home health service (06) | DRG 871 ==
LOC: EC 20:48 → 4SSUR 05-07 00:24
PROVIDERS: ADMIT Internal Medicine; ATTEND Internal Medicine
DX: A41.9 Sepsis, unspecified organism (principal); N17.0 Acute kidney failure with tubular necrosis; L03.116 Cellulitis of left lower limb; I13.0 Hypertensive heart and chronic kidney disease with heart failure and stage 1 through stage 4 chronic kidney disease, or unspecified chronic kidney disease; E87.1 Hypo-osmolality and hyponatremia; I42.8 Other cardiomyopathies; I50.22 Chronic systolic (congestive) heart failure; Z68.41 Body mass index [BMI] 40.0-44.9, adult; M86.9 Osteomyelitis, unspecified; L97.429 Non-pressure chronic ulcer of left heel and midfoot with unspecified severity; W19.XXXA Unspecified fall, initial encounter; N18.31 Chronic kidney disease, stage 3a; L89.322 Pressure ulcer of left buttock, stage 2; E11.22 Type 2 diabetes mellitus with diabetic chronic kidney disease; E11.621 Type 2 diabetes mellitus with foot ulcer; E86.0 Dehydration; F31.9 Bipolar disorder, unspecified; G40.909 Epilepsy, unspecified, not intractable, without status epilepticus; I48.0 Paroxysmal atrial fibrillation; J44.9 Chronic obstructive pulmonary disease, unspecified; E66.01 Morbid (severe) obesity due to excess calories; E11.628 Type 2 diabetes mellitus with other skin complications; W06.XXXA Fall from bed, initial encounter; Z79.4 Long term (current) use of insulin; Z88.0 Allergy status to penicillin; Z95.810 Presence of automatic (implantable) cardiac defibrillator; Z89.511 Acquired absence of right leg below knee; Z86.73 Personal history of transient ischemic attack (TIA), and cerebral infarction without residual deficits; Z86.19 Personal history of other infectious and parasitic diseases; Z79.899 Other long term (current) drug therapy; Z79.01 Long term (current) use of anticoagulants; Z87.891 Personal history of nicotine dependence; I25.2 Old myocardial infarction; Y92.003 Bedroom of unspecified non-institutional (private) residence as the place of occurrence of the external cause
CPT/HCPCS: 36415; 80048; 80053; 81003; 83036; 83605; 83735; 85025; 87040; 87070; 87075; 87077; 87186; 87205; 90471; 90715; 93005; 94640; 96361; 96365; 96366; 96367; 96375; 99285

== ENCOUNTER 2024-01-28 17:42 | Inpatient (IN) | payer MEDICARE ==
--- NOTE | 2024-01-28 19:46 | XR ---
EXAMINATION TYPE: XR chest 2V DATE OF EXAM: 01/28/2024 7:33 PM CLINICAL INDICATION:Female, 48 years old with history of altered mental status; COMPARISON: Chest radiographs from 11/15/2020. TECHNIQUE: XR chest 2V Frontal and lateral views of the chest. FINDINGS: Lungs/Pleura: There is no evidence of pleural effusion, focal consolidation, or pneumothorax. Pulmonary vascularity: Pulmonary vascular congestion. Heart/mediastinum: Cardiomediastinal silhouette is enlarged and stable. Two lead cardiac conduction d evice overlying the left hemithorax with lead tips projecting over the right ventricle and right atri um. Musculoskeletal: No acute osseous pathology. IMPRESSION: Cardiomegaly, pulmonary vascular congestion and bilateral pleural effusions. Correlate with BNP for c ongestive heart failure.
[2024-01-28 20:16] LABS: INR 1.2 (<1.2); Partial Thromboplastin Time 25.9 sec (22.0-30.0); Prothrombin Time 12.5 sec (10.0-12.5)
[2024-01-28 20:25] LABS: ALT 15 U/L (4-34); AST 25 U/L (14-36); African American GFR (CKD) 34 (>60 ml/min/1.73 sqM); Albumin 4.3 g/dL (3.5-5.0); Alkaline Phosphatase 103 U/L (38-126); Anion Gap 14 mmol/L; Blood Urea Nitrogen 78 mg/dL (7-17); Carbon Dioxide 21 mmol/L (22-30); Chloride 104 mmol/L (98-107); Glucose 153 mg/dL (74-99); Non-African American GFR(CKD) 30 (>60 ml/min/1.73 sqM); Potassium 4.3 mmol/L (3.5-5.1); Sodium 139 mmol/L (137-145); Total Bilirubin 1.2 mg/dL (0.2-1.3); Total Protein 8.6 g/dL (6.3-8.2)
[2024-01-28] MEDS: fentaNYL (PF) 50 MCG/ML 2 ML AMP IVP STA (20:31)
[2024-01-28 20:34] LABS: Anisocytosis Slight; Basophils % (A) 0 %; Eosinophils # (A) 0.1 k/uL (0-0.7); Eosinophils % (A) 1 %; HCT 40.6 % (34.0-46.0); HGB 12.5 gm/dL (11.4-16.0); Hypochromasia Marked; Lymphocytes # (A) 0.9 k/uL (1.0-4.8); Lymphocytes % (A) 4 %; MCH 27.1 pg (25.0-35.0); MCHC 30.7 g/dL (31.0-37.0); MCV 88.1 fL (80.0-100.0); Mean Platelet Volume 9.4; Monocytes # (A) 1.1 k/uL (0-1.0); Monocytes % (A) 5 %; Neutrophils # (A) 19.8 k/uL (1.3-7.7); Neutrophils % (A) 89 %; Platelet Count 254 k/uL (150-450); RBC 4.61 m/uL (3.80-5.40); RDW 19.3 % (11.5-15.5); WBC 22.2 k/uL (3.8-10.6)
[2024-01-28] MEDS: IPRATROPIUM-ALBUTEROL 3 ML NEB INHALATION STA (20:59)
--- NOTE | 2024-01-28 21:09 | ED ---
SOB HPI - General Chief Complaint: Shortness of Breath Stated Complaint: Cellulitis Time Seen by Provider: 01/28/24 17:50 Source: patient, EMS Mode of arrival: EMS Limitations: altered mental status - History of Present Illness Initial Comments: 48-year-old female with past medical history of congestive heart failure with ICD placement, recurrent cellulitis, diabetes who presents emergency department reporting cellulitis. States that she has had cellulitis several times. She noted that her left lower extremity has been very red warm and swollen for the past week. She does admit to fatigue and chills. She is not currently on any antibiotics. She does not see wound care. Patient does have notable open ulcer to the bottom of left foot. Patient is also reporting 2 shortness of breath. Admits to nonproductive cough. No fevers. Patient does take anticoagulation and denies any missed doses. No other alleviating, precipitating or modifying factors - Related Data Home Medications Medication Instructions Recorded Confirmed Insulin Glargine [Lantus Vial] 15 unit SQ DAILY PRN 04/30/19 01/29/24 Apixaban [Eliquis] 5 mg PO BID 07/27/19 01/29/24 Ipratropium-Albuterol Nebulize 3 ml INHALATION RT-QID PRN 05/21/20 01/29/24 [Duoneb 0.5 mg-3 mg/3 ml Soln] ALPRAZolam [Xanax] 0.5 mg PO BID PRN 05/07/23 01/29/24 Albuterol Sulfate [Albuterol 1 - 2 puff INHALATION RT-Q6H PRN 05/07/23 01/29/24 Sulfate Hfa] Insulin Aspart [NovoLOG Flexpen] See Protocol SQ AC-TID PRN 05/07/23 01/29/24 Acetaminophen/Diphenhydramine 2 tab PO HS PRN 01/29/24 01/29/24 [Tylenol PM 500-25mg] Lacosamide [Vimpat] 50 mg PO BID 01/29/24 01/29/24 Melatonin 5 mg PO HS PRN 01/29/24 01/29/24 Midodrine [ProAmatine] 5 mg PO AC-TID PRN 01/29/24 01/29/24 Pantoprazole [Protonix] 40 mg PO DAILY 01/29/24 01/29/24 Previous Rx's Medication Instructions Recorded Gabapentin [Neurontin] 600 mg PO TID #9 tab 12/23/20 Acetaminophen Tab [Tylenol] 650 mg PO Q6HR PRN tab 05/13/23 diphenhydrAMINE [Benadryl] 25 mg PO TID PRN cap 05/13/23 Bumetanide [BUMEX] 1 mg PO BID #60 tab 02/01/24 Cephalexin [Keflex] 500 mg PO Q6HR 10 Days #40 cap 02/01/24 Metoprolol Tartrate [Lopressor] 12.5 mg PO BID #60 tab 02/01/24 Sacubitril/Valsartan [Entresto 24 1 each PO BID #60 tab 02/01/24 mg-26 mg Tablet] Allergies Allergy/AdvReac Type Severity Reaction Status Date / Time Penicillins Allergy Rash/Hives Verified 01/29/24 10:24 vancomycin Allergy Rash/Hives Verified 01/29/24 10:24 ondansetron [From Zofran] AdvReac Nausea & Verified 01/29/24 10:24 Vomiting Review of Systems ROS Statement: Those systems with pertinent positive or pertinent negative responses have been documented in the HPI. ROS Other: All systems not noted in ROS Statement are negative. Past Medical History Past Medical History: Asthma, Heart Failure, COPD, CVA/TIA, Diabetes Mellitus, Hypertension, Myocardial Infarction ([place]), Pneumonia, Seizure Disorder, Seizure Disorder Additional Past Medical History / Comment(s): uses a wheelchair. 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 has pacemaker defibrillator, right all toe amputated 04/2016, LT GREAT TOE then left foot partial amputation Past Anesthesia/Blood Transfusion Reactions: Postoperative Nausea & Vomiting (PONV) Type of Cardiac Device: Biventricular Pacemaker, Permanent Pacemaker, AICD Device Placement Date:: 2011 Past Psychological History: Bipolar Smoking Status: Former smoker Past Alcohol Use History: None Reported Past Drug Use History: Marijuana - Past Family History Mother Family Medical History: Deep Vein Thrombosis (DVT) Additional Family Medical History / Comment(s): Some type of heart problems, ki dney failure. Father History Unknown: Yes Family Medical History: Unable to Obtain Additional Family Medical History / Comment(s): Patient denies knowing any medical history on her father. General Exam Limitations: altered mental status General appearance: alert, in no apparent distress Head exam: Present: atraumatic, normocephalic, normal inspection Eye exam: Present: normal appearance, PERRL, EOMI. Absent: scleral icterus, conjunctival injection, periorbital swelling ENT exam: Present: normal exam, mucous membranes moist Neck exam: Present: normal inspection. Absent: tenderness, meningismus, lymphadenopathy Respiratory exam: Present: wheezes, decreased breath sounds. Absent: respiratory distress, rales, rhonchi, stridor Cardiovascular Exam: Present: regular rate, normal rhythm, normal heart sounds. Absent: systolic murmur, diastolic murmur, rubs, gallop, clicks GI/Abdominal exam: Present: soft, normal bowel sounds. Absent: distended, tenderness, guarding, rebound, rigid Extremities exam: Present: tenderness (red, warm, swollen left lower extremity with brawny edema. ulceration plantar aspect left foot measuring 5x4 cm), normal capillary refill, pedal edema, calf tenderness. Absent: joint swelling Back exam: Present: normal inspection Neurological exam: Present: alert, oriented X3, CN II-XII intact Psychiatric exam: Present: normal affect, normal mood Skin exam: Present: warm, dry, intact. Absent: rash Course Vital Signs 01/28/24 01/28/24 01/28/24 17:46 20:00 20:10 Temperature 97.9 F Pulse Rate 100 Respiratory 18 18 18 Rate Blood Pressure 98/56 132/80 121/69 O2 Sat by Pulse 100 98 96 Oximetry 01/28/24 01/28/24 01/28/24 21:01 21:09 22:00 Temperature Pulse Rate 116 H 114 H 104 H Respiratory 18 Rate Blood Pressure 112/76 O2 Sat by Pulse 97 Oximetry 01/28/24 01/29/24 01/29/24 23:00 00:18 02:28 Temperature 98.0 F Pulse Rate 102 H 107 H Respiratory 18 18 Rate Blood Pressure 97/65 114/62 O2 Sat by Pulse 98 98 Oximetry 01/29/24 01/29/24 01/29/24 07:40 09:00 09:46 Temperature Pulse Rate 88 100 68 Respiratory 16 16 16 Rate Blood Pressure 98/68 140/68 134/85 O2 Sat by Pulse 98 96 98 Oximetry 01/29/24 01/29/24 01/29/24 10:01 12:00 14:00 Temperature Pulse Rate 59 L 80 Respiratory 20 16 16 Rate Blood Pressure 134/75 100/63 O2 Sat by Pulse 98 95 Oximetry 01/29/24 01/29/24 01/29/24 15:21 15:29 15:52 Temperature Pulse Rate 83 85 89 Respiratory 16 16 Rate Blood Pressure 108/45 O2 Sat by Pulse 97 Oximetry 01/30/24 01/30/24 01/30/24 01:28 02:39 06:56 Temperature 97.6 F Pulse Rate 80 86 86 Respiratory 17 12 18 Rate Blood Pressure 120/91 97/62 98/72 O2 Sat by Pulse 97 95 95 Oximetry 01/30/24 01/30/24 01/30/24 07:52 08:31 08:56 Temperature Pulse Rate 89 89 Respiratory 18 16 Rate Blood Pressure 102/70 110/61 O2 Sat by Pulse 94 L 94 L 94 L Oximetry 01/30/24 01/30/24 01/30/24 10:48 12:34 14:59 Temperature Pulse Rate 84 81 93 Respiratory 18 16 14 Rate Blood Pressure 86/52 106/68 101/61 O2 Sat by Pulse 99 95 97 Oximetry Medical Decision Making - Medical Decision Making Was pt. sent in by a medical professional or institution (, PA, MENTAL HEALTH SOCIAL WORKER, urgent care, hospital, or penitentiary...) When possible be specific @ -No Did you speak to anyone other than the patient for history (EMS, parent, family, police, friend...)? What history was obtained from this source @ -EMS Did you review nursing and triage notes (agree or disagree)? Why? @ -I reviewed and agree with nursing and triage notes Were old charts reviewed (outside hosp., previous admission, EMS record, old EKG, old radiological studies, urgent care reports/EKG's, penitentiary records)? Report findings @ -No old charts were reviewed Differential Diagnosis (chest pain, altered mental status, abdominal pain women, abdominal pain men, vaginal bleeding, weakness, fever, dyspnea, syncope, headache, dizziness, GI bleed, back pain, seizure, CVA, palpatations, mental hea lth, musculoskeletal)? @ -Cellulitis, abscess, DVT, septic arthritis EKG interpreted by me (3pts min.). @ -Yes and demonstrates intricately paced rhythm with a rate of 100. WI interval 181. QRS 124. QTc of 433. No acute ST segment elevations or depressions X-rays interpreted by me (1pt min.). @ -None done CT interpreted by me (1pt min.). @ -None done U/S interpreted by me (1pt. min.). @ -Yes and demonstrates no DVT What testing was considered but not performed or refused? (CT, X-rays, U/S, labs)? Why? @ -None What meds were considered but not given or refused? Why? @ -None Did you discuss the management of the patient with other professionals (professionals i.e. , PA, MENTAL HEALTH SOCIAL WORKER, lab, RT, psych nurse, high school social studies teacher, judicial administrative assistant, teacher, adult parole officer, caser shoe parts)? Give summary @ -spoke with dr tucker Was smoking cessation discussed for >3mins.? @ -No Was critical care preformed (if so, how long)? @ -No Were there social determinants of health that impacted care today? How? (Ho melessness, low income, unemployed, alcoholism, drug addiction, transportation, low edu. Level, literacy, decrease access to med. care, correction, rehab)? @ -No Was there de-escalation of care discussed even if they declined (Discuss DNR or withdrawal of care, Hospice)? DNR status @ -No What co-morbidities impacted this encounter? (DM, HTN, Smoking, COPD, CAD, Cancer, CVA, ARF, Chemo, Hep., AIDS, mental health diagnosis, sleep apnea, morbid obesity)? @ -Obesity, heart failure, recurrent cellulitis, diabetes Was patient admitted / discharged? Hospital course, mention meds given and route, prescriptions, significant lab abnormalities, going to OR and other pertinent info. @ -Upon arrival patient placed into room 8. Thorough history and physical exam was performed. IV access was established. Patient sent for CT of her head and chest x-ray. Ultrasound performed of the left lower extremity. Laboratory studies were conducted. Patient was initiated on antibiotics. Recommend admission to the hospital for which patient was agreeable. Spoke with Dr. Tucker for admission Undiagnosed new problem with uncertain prognosis? @ -No Drug Therapy requiring intensive monitoring for toxicity (Heparin, Nitro, Insulin, Cardizem)? @ -No Were any procedures done? @ -No Diagnosis/symptom? @ -acute lle cellulitis, chf exacerbation Acute, or Chronic, or Acute on Chronic? @ -Acute on chronic Uncomplicated (without systemic symptoms) or Complicated (systemic symptoms)? @ -Complicated Side effects of treatment? @ -Allergic reaction Exacerbation, Progression, or Severe Exacerbation? @ -No Poses a threat to life or bodily function? How? (Chest pain, [place], [place], pneumonia, PE, COPD, DKA, ARF, appy, cholecystitis, CVA, Diverticulitis, Homicidal, Suicidal, threat to staff... and all critical care pts) @ -No - Lab Data Result diagrams: 01/30/24 07:27 01/31/24 09:06 Lab Results 01/28/24 01/28/24 01/28/24 Range/Units 19:42 19:42 19:42 WBC 22.2 H (3.8-10.6) k/uL RBC 4.61 (3.80-5.40) m/uL Hgb 12.5 (11.4-16.0) gm/dL Hct 40.6 (34.0-46.0) % MCV 88.1 (80.0-100.0) fL MCH 27.1 (25.0-35.0) pg MCHC 30.7 L (31.0-37.0) g/dL RDW 19.3 H (11.5-15.5) % Plt Count 254 (150-450) k/uL MPV 9.4 Neutrophils % 89 % Lymphocytes % 4 % Monocytes % 5 % Eosinophils % 1 % Basophils % 0 % Neutrophils # 19.8 H (1.3-7.7) k/uL Lymphocytes # 0.9 L (1.0-4.8) k/uL Monocytes # 1.1 H (0-1.0) k/uL Eosinophils # 0.1 (0-0.7) k/uL Basophils # 0.0 (0-0.2) k/uL Hypochromasia Marked Anisocytosis Slight ESR >130 H (0-20) mm/Hr PT 12.5 (10.0-12.5) sec INR 1.2 H (<1.2) APTT 25.9 (22.0-30.0) sec Sodium 139 (137-145) mmol/L Potassium 4.3 (3.5-5.1) mmol/L Chloride 104 (98-107) mmol/L Carbon Dioxide 21 L (22-30) mmol/L Anion Gap 14 mmol/L BUN 78 H (7-17) mg/dL Creatinine 1.94 H (0.52-1.04) mg/dL Est GFR (CKD-EPI)AfAm 34 (>60 ml/min/1.73 sqM) Est GFR (CKD-EPI)NonAf 30 (>60 ml/min/1.73 sqM) Glucose 153 H (74-99) mg/dL Lactic Ac Sepsis Rflx Plasma Lactic Acid Warren (0.7-2.0) mmol/L Calcium 9.0 (8.4-10.2) mg/dL Total Bilirubin 1.2 (0.2-1.3) mg/dL AST 25 (14-36) U/L ALT 15 (4-34) U/L Alkaline Phosphatase 103 (38-126) U/L Troponin I (0.000-0.034) ng/mL C-Reactive Protein 35.0 H (<1.0) mg/dL NT-Pro-B Natriuret Pep 63790 pg/mL Total Protein 8.6 H (6.3-8.2) g/dL Albumin 4.3 (3.5-5.0) g/dL Influenza Type A (PCR) (Not Detectd) Influenza Type B (PCR) (Not Detectd) RSV (PCR) (Not Detectd) SARS-CoV-2 (PCR) (Not Detectd) 01/28/24 01/28/24 01/28/24 Range/Units 19:42 19:42 19:42 WBC (3.8-10.6) k/uL RBC (3.80-5.40) m/uL Hgb (11.4-16.0) gm/dL Hct (34.0-46.0) % MCV (80.0-100.0) fL MCH (25.0-35.0) pg MCHC (31.0-37.0) g/dL RDW (11.5-15.5) % Plt Count (150-450) k/uL MPV Neutrophils % % Lymphocytes % % Monocytes % % Eosinophils % % Basophils % % Neutrophils # (1.3-7.7) k/uL Lymphocytes # (1.0-4.8) k/uL Monocytes # (0-1.0) k/uL Eosinophils # (0-0.7) k/uL Basophils # (0-0.2) k/uL Hypochromasia Anisocytosis ESR (0-20) mm/Hr PT (10.0-12.5) sec INR (<1.2) APTT (22.0-30.0) sec Sodium (137-145) mmol/L Potassium (3.5-5.1) mmol/L Chloride (98-107) mmol/L Carbon Dioxide (22-30) mmol/L Anion Gap mmol/L BUN (7-17) mg/dL Creatinine (0.52-1.04) mg/dL Est GFR (CKD-EPI)AfAm (>60 ml/min/1.73 sqM) Est GFR (CKD-EPI)NonAf (>60 ml/min/1.73 sqM) Glucose (74-99) mg/dL Lactic Ac Sepsis Rflx Plasma Lactic Acid Warren 2.3 H* (0.7-2.0) mmol/L Calcium (8.4-10.2) mg/dL Total Bilirubin (0.2-1.3) mg/dL AST (14-36) U/L ALT (4-34) U/L Alkaline Phosphatase (38-126) U/L Troponin I 0.060 H* (0.000-0.034) ng/mL C-Reactive Protein (<1.0) mg/dL NT-Pro-B Natriuret Pep pg/mL Total Protein (6.3-8.2) g/dL Albumin (3.5-5.0) g/dL Influenza Type A (PCR) Not Detected (Not Detectd) Influenza Type B (PCR) Not Detected (Not Detectd) RSV (PCR) Not Detected (Not Detectd) SARS-CoV-2 (PCR) Not Detected (Not Detectd) 01/28/24 01/28/24 01/28/24 Range/Units 20:23 22:50 23:26 WBC (3.8-10.6) k/uL RBC (3.80-5.40) m/uL Hgb (11.4-16.0) gm/dL Hct (34.0-46.0) % MCV (80.0-100.0) fL MCH (25.0-35.0) pg MCHC (31.0-37.0) g/dL RDW (11.5-15.5) % Plt Count (150-450) k/uL MPV Neutrophils % % Lymphocytes % % Monocytes % % Eosinophils % % Basophils % % Neutrophils # (1.3-7.7) k/uL Lymphocytes # (1.0-4.8) k/uL Monocytes # (0-1.0) k/uL Eosinophils # (0-0.7) k/uL Basophils # (0-0.2) k/uL Hypochromasia Anisocytosis ESR (0-20) mm/Hr PT (10.0-12.5) sec INR (<1.2) APTT (22.0-30.0) sec Sodium (137-145) mmol/L Potassium (3.5-5.1) mmol/L Chloride (98-107) mmol/L Carbon Dioxide (22-30) mmol/L Anion Gap mmol/L BUN (7-17) mg/dL Creatinine (0.52-1.04) mg/dL Est GFR (CKD-EPI)AfAm (>60 ml/min/1.73 sqM) Est GFR (CKD-EPI)NonAf (>60 ml/min/1.73 sqM) Glucose (74-99) mg/dL Lactic Ac Sepsis Rflx Y Y Plasma Lactic Acid Warren 2.2 H* (0.7-2.0) mmol/L Calcium (8.4-10.2) mg/dL Total Bilirubin (0.2-1.3) mg/dL AST (14-36) U/L ALT (4-34) U/L Alkaline Phosphatase (38-126) U/L Troponin I (0.000-0.034) ng/mL C-Reactive Protein (<1.0) mg/dL NT-Pro-B Natriuret Pep pg/mL Total Protein (6.3-8.2) g/dL Albumin (3.5-5.0) g/dL Influenza Type A (PCR) (Not Detectd) Influenza Type B (PCR) (Not Detectd) RSV (PCR) (Not Detectd) SARS-CoV-2 (PCR) (Not Detectd) Disposition Clinical Impression: Cellulitis, Leukocytosis, CHF exacerbation, Diabetic ulcer of left foot Disposition: ADMITTED IP TO THIS HOSP Condition: Serious Is patient prescribed a controlled substance at d/c from ED?: No Time of Disposition: 23:18 Decision to Admit Reason: Admit from EC Decision Date: 01/28/24 Decision Time: 23:18
[2024-01-28 21:10] LABS: NT-Pro-B-Type Natriuretic Pept 32200 pg/mL
--- NOTE | 2024-01-28 21:38 | CT ---
EXAMINATION TYPE: CT brain wo con CT DLP: 1110.8 mGycm, Automated exposure control for dose reduction was used. DATE OF EXAM: 01/28/2024 9:18 PM COMPARISON: 09/17/2019. CLINICAL INDICATION:Female, 48 years old with history of Altered mental status, AMS. TECHNIQUE: Brain: Axial CT images of the brain were obtained with coronal and sagittal reformats created and rev iewed. Contrast used: None. Oral contrast used: None. FINDINGS: Brain: Extra-axial spaces: No abnormal extra-axial fluid collections. Ventricular system: Within normal limits Cerebral parenchyma: No acute intraparenchymal hemorrhage or mass effect. The patel-white junction is well differentiated. Cerebellum: Unremarkable. Mass effect: No evidence of midline shift. Intracranial vasculature: Atherosclerotic calcifications of the intracranial vessels. Soft tissues: Normal. Calvarium/osseous structures: No depressed skull fracture. Paranasal sinuses and mastoid air cells: Mild scattered paranasal sinus disease. Visualized orbits: Orbital contents are intact. IMPRESSION: No acute intracranial process.
[2024-01-28] MEDS ORDERED: VANCOMYCIN IV PER PHARMACY 1 EACH MISC MISCELLANE PRN (22:44)
[2024-01-28] MEDS ORDERED: NALOXONE 0.4 MG/ML 1 ML VIAL IV PRN (23:21)
--- NOTE | 2024-01-28 23:37 | US ---
EXAM: US Duplex Left Lower Extremity Veins CLINICAL HISTORY: ITS.REASON US Reason: cellulitis, hx dvt TECHNIQUE: Real-time duplex ultrasound scan of the left lower extremity veins integrating B-mode two-dimensional vascular structure, Doppler spectral analysis, color flow Doppler imaging and compression. COMPARISON: 05/22/20 FINDINGS: Deep veins: Unremarkable. No DVT in the visualized common femoral, femoral, proximal deep femoral or popliteal veins. The veins demonstrate normal color flow, are normally compressible, with normal phasic flow and/or augmentation response. Superficial veins: Unremarkable. No thrombus in the visualized great saphenous vein. Soft tissues: No acute findings. IMPRESSION: Normal left lower extremity duplex venous ultrasound.
[2024-01-28] MEDS: CLINDAMYCIN 600 MG/50 ML-D5W 600 MG in DEXTROSE/WATER 1 50ML.BAG IVPB SCH (23:54)
[2024-01-29] MEDS ORDERED: CLINDAMYCIN 600 MG/50 ML-D5W 600 MG in DEXTROSE/WATER 1 50ML.BAG IVPB SCH
[2024-01-29] MEDS: HYDROmorphone 1 MG/ML 1 ML SYRINGE IVP PRN (00:19)
[2024-01-29] MEDS: VANCOMYCIN 1,750 MG in SODIUM CHLORIDE 0.9% 500 ML 500 ML IVPB ONE (01:09)
[2024-01-29 03:22] LABS: Anisocytosis Slight; Basophils % (A) 0 %; Eosinophils # (A) 0.1 k/uL (0-0.7); Eosinophils % (A) 1 %; HCT 37.5 % (34.0-46.0); HGB 11.8 gm/dL (11.4-16.0); Hypochromasia Marked; Lymphocytes # (A) 0.9 k/uL (1.0-4.8); Lymphocytes % (A) 4 %; MCHC 31.4 g/dL (31.0-37.0); MCV 89.1 fL (80.0-100.0); Mean Platelet Volume 9.3; Monocytes # (A) 0.9 k/uL (0-1.0); Monocytes % (A) 5 %; Neutrophils % (A) 89 %; Platelet Count 235 k/uL (150-450); RBC 4.21 m/uL (3.80-5.40); RDW 19.2 % (11.5-15.5); WBC 19.1 k/uL (3.8-10.6)
[2024-01-29 03:25] LABS: African American GFR (CKD) 33 (>60 ml/min/1.73 sqM); Anion Gap 14 mmol/L; Blood Urea Nitrogen 81 mg/dL (7-17); Calcium 8.8 mg/dL (8.4-10.2); Carbon Dioxide 18 mmol/L (22-30); Chloride 107 mmol/L (98-107); Glucose 147 mg/dL (74-99); Non-African American GFR(CKD) 29 (>60 ml/min/1.73 sqM); Potassium 4.2 mmol/L (3.5-5.1); Sodium 139 mmol/L (137-145)
--- NOTE | 2024-01-29 09:56 | P.HPIM ---
History of Present Illness This is a pleasant 48 years old female with past medical history of multiple medical problems including asthma, COPD, CHF, CVA/TIA, diabetes mellitus hypertension, seizure disorder Patient presents initially because of her left leg problem and does third-degree her shortness of breath. Patient is lying in bed flat with no significant orthopnea. She is mildly tachypneic complaining with no chest pain and mild coughing. However she has right BKA and left forefoot amputation and her left leg is bright red swollen and tender up to the knee. Patient denies any change in urine or bowel habits. No fever or chills. No headache dizziness weakness or numbness Patient denies smoking alcohol or illicit drugs Patient is mildly tachycardic with heart rate around 100, blood pressure is labile 98/68 and 114/68. She has leukocytosis of 22 and 19,000, creatinine is elevated 2.0, baseline 1.5- 1.7. Liver enzymes not elevated. Troponin is elevated 0.046 and 0.06. proBNP is elevated 322 00. Influenza A and type B, RSV, SARS (coronavirus) are and detected EKG showing ventricular paced rhythm Chest x-ray showing cardiomegaly with pulmonary vascular congestion CT of the brain is negative for acute process Left leg ultrasound is negative for DVT Echocardiogram from 2019 showing ejection fraction of 20 to 25% She was on Keflex at home, and Also she was on levaquin Review of Systems Review of systems CONSTITUTIONAL: No fever, no malaise, no fatigue. HEENT: No recent visual problems or hearing problems. Denied any sore throat. CARDIOVASCULAR: No orthopnea, PND, no palpitations, no syncope. PULMONARY: No chest wall tenderness , no hemoptysis. GASTROINTESTINAL: No diarrhea, no nausea, no vomiting, no abdominal pain. Normoactive bowel sounds. NEUROLOGICAL: No headaches, no weakness, no numbness. HEMATOLOGICAL: Denies any bleeding or petechiae. GENITOURINARY: Denies any burning micturition, frequency, or urgency. MUSCULOSKELETAL/RHEUMATOLOGICAL: Denies any joint pain, swelling, or any muscle pain. ENDOCRINE: Denies any polyuria or polydipsia. Past Medical History Past Medical History: Asthma, Heart Failure, COPD, CVA/TIA, Diabetes Mellitus, Hypertension, Myocardial Infarction ([place]), Pneumonia, Seizure Disorder, Seizure Disorder Additional Past Medical History / Comment(s): uses a wheelchair. 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 has pacemaker defibrillator, right all toe amputated 04/2016, LT GREAT TOE then left foot partial amputation Past Anesthesia/Blood Transfusion Reactions: Postoperative Nausea & Vomiting (PONV) Type of Cardiac Device: Biventricular Pacemaker, Permanent Pacemaker, AICD Device Placement Date:: 2011 Past Psychological History: Bipolar Smoking Status: Former smoker Past Alcohol Use History: None Reported Past Drug Use History: Marijuana - Past Family History Mother Family Medical History: Deep Vein Thrombosis (DVT) Additional Family Medical History / Comment(s): Some type of heart problems, kidney failure. Father History Unknown: Yes Family Medical History: Unable to Obtain Additional Family Medical History / Comment(s): Patient denies knowing any medical history on her father. Medications and Allergies Home Medications Medication Instructions Recorded Confirmed Type Insulin Glargine [Lantus Vial] 10 unit SQ HS 04/30/19 05/07/23 History Apixaban [Eliquis] 5 mg PO BID 07/27/19 05/07/23 History Ipratropium-Albuterol Nebulize 3 ml INHALATION RT-TID PRN 05/21/20 05/07/23 History [Duoneb 0.5 mg-3 mg/3 ml Soln] Gabapentin [Neurontin] 600 mg PO TID #9 tab 12/23/20 05/07/23 Rx ALPRAZolam [Xanax] 0.5 mg PO HS 05/07/23 05/07/23 History Albuterol Sulfate [Albuterol 1 - 2 puff PO RT-Q6H PRN 05/07/23 05/07/23 History Sulfate Hfa] Insulin Aspart [NovoLOG Flexpen] See Protocol SQ AC-TID PRN 05/07/23 05/07/23 History Metoprolol Tartrate [Lopressor] 25 mg PO BID 05/07/23 05/07/23 History Sacubitril/Valsartan [Entresto 49 1 tab PO BID 05/07/23 05/07/23 History mg-51 mg Tablet] Acetaminophen Tab [Tylenol] 650 mg PO Q6HR PRN tab 05/13/23 Rx Bumetanide [BUMEX] 0.5 mg PO BID #15 tab 05/13/23 Rx Cephalexin [Keflex] 500 mg PO Q6HR 10 Days #40 cap 05/13/23 Rx Levofloxacin [Levaquin] 500 mg PO DAILY 10 Days #10 tab 05/13/23 Rx Midodrine [ProAmatine] 10 mg PO AC-TID PRN #30 tab 05/13/23 Rx Sodium Bicarbonate Tab 650 mg PO BID #60 tab 05/13/23 Rx diphenhydrAMINE [Benadryl] 25 mg PO TID PRN cap 05/13/23 Rx Allergies Allergy/AdvReac Type Severity Reaction Status Date / Time Penicillins Allergy Rash/Hives Verified 01/28/24 17:51 ondansetron [From Zofran] AdvReac Nausea & Verified 01/28/24 17:51 Vomiting Physical Exam Vitals: Vital Signs Temp Pulse Resp BP Pulse Ox 01/29/24 09:00 100 16 140/68 96 01/29/24 07:40 88 16 98/68 98 01/29/24 02:28 98.0 F 01/29/24 00:18 107 H 18 114/62 98 01/28/24 23:00 102 H 18 97/65 98 01/28/24 22:00 104 H 18 112/76 97 01/28/24 21:09 114 H 01/28/24 21:01 116 H 01/28/24 20:10 18 121/69 96 01/28/24 20:00 18 132/80 98 01/28/24 17:46 97.9 F 100 18 98/56 100 Intake and Output 01/28/24 01/29/24 01/29/24 22:59 06:59 14:59 Other: Weight 117.934 kg GENERAL: The patient is alert and oriented x3, not in any acute distress. Well developed, well nourished. HEENT: Pupils are round and equally reacting to light. EOMI. No scleral icterus. No conjunctival pallor. Normocephalic, atraumatic. No pharyngeal erythema. No thyromegaly. CARDIOVASCULAR: S1 and S2 present. No murmurs, rubs, or gallops. -PULMONARY: Chest is clear to auscultation, no wheezing ,mild bilateral basal crackles. ABDOMEN: Soft, nontender, nondistended, normoactive bowel sounds. No palpable organomegaly. MUSCULOSKELETAL: No joint swelling or deformity. -EXTREMITIES: No cyanosis, clubbing, patient left leg is red swollen and tender. He has amputation of the left forefoot and right BKA NEUROLOGICAL: Gross neurological examination did not reveal any focal deficits. SKIN: No rashes. no petechiae. Results CBC & Chem 7: 01/29/24 02:47 01/29/24 02:47 Labs: Abnormal Lab Results - Last 24 Hours (Table) 01/28/24 01/28/24 01/28/24 Range/Units 19:42 19:42 19:42 WBC 22.2 H (3.8-10.6) k/uL MCHC 30.7 L (31.0-37.0) g/dL RDW 19.3 H (11.5-15.5) % Neutrophils # 19.8 H (1.3-7.7) k/uL Lymphocytes # 0.9 L (1.0-4.8) k/uL Monocytes # 1.1 H (0-1.0) k/uL INR 1.2 H (<1.2) Carbon Dioxide 21 L (22-30) mmol/L BUN 78 H (7-17) mg/dL Creatinine 1.94 H (0.52-1.04) mg/dL Glucose 153 H (74-99) mg/dL Plasma Lactic Acid Warren (0.7-2.0) mmol/L Troponin I (0.000-0.034) ng/mL C-Reactive Protein 35.0 H (<1.0) mg/dL Total Protein 8.6 H (6.3-8.2) g/dL 01/28/24 01/28/24 01/28/24 Range/Units 19:42 19:42 22:50 WBC (3.8-10.6) k/uL MCHC (31.0-37.0) g/dL RDW (11.5-15.5) % Neutrophils # (1.3-7.7) k/uL Lymphocytes # (1.0-4.8) k/uL Monocytes # (0-1.0) k/uL INR (<1.2) Carbon Dioxide (22-30) mmol/L BUN (7-17) mg/dL Creatinine (0.52-1.04) mg/dL Glucose (74-99) mg/dL Plasma Lactic Acid Warren 2.3 H* 2.2 H* (0.7-2.0) mmol/L Troponin I 0.060 H* (0.000-0.034) ng/mL C-Reactive Protein (<1.0) mg/dL Total Protein (6.3-8.2) g/dL 01/29/24 01/29/24 01/29/24 Range/Units 02:08 02:47 02:47 WBC 19.1 H (3.8-10.6) k/uL MCHC (31.0-37.0) g/dL RDW 19.2 H (11.5-15.5) % Neutrophils # 17.0 H (1.3-7.7) k/uL Lymphocytes # 0.9 L (1.0-4.8) k/uL Monocytes # (0-1.0) k/uL INR (<1.2) Carbon Dioxide 18 L (22-30) mmol/L BUN 81 H (7-17) mg/dL Creatinine 2.00 H (0.52-1.04) mg/dL Glucose 147 H (74-99) mg/dL Plasma Lactic Acid Warren (0.7-2.0) mmol/L Troponin I 0.046 H* (0.000-0.034) ng/mL C-Reactive Protein (<1.0) mg/dL Total Protein (6.3-8.2) g/dL Assessment and Plan Assessment: Left leg cellulitis failed outpatient treatment Acute on chronic CHF, Acute kidney injury on chronic kidney disease stage III. Mild metabolic encephalopathy, improved Asthma/COPD, no acute exacerbation History of CVA/TIA History of seizure Diabetes mellitus Hypertension I Plan: Continue with antibiotic, currently on clindamycin and IV vancomycin We will switch vancomycin pharmacy to dose till patient evaluated by infectious disease team Will start the patient on IV Lasix 40 mg twice daily Follow-up urine output and creatinine and electrolytes Cardiology consult we will start the pt on lasix and aspirin Labs and medication were reviewed.. Continue same treatment. Continue with symptomatic treatment. Resume home medication. Monitor labs and vitals. DVT and GI prophylaxis. Further recommendations as per clinical course of the patient DVT prophylaxis: Continue with anticoagulation GI Prophylaxis: Pepcid Prognosis is guarded
[2024-01-29] MEDS: ASPIRIN 81 MG PO STA (10:26)
[2024-01-29] MEDS: FUROSEMIDE 10 MG/ML 4 ML VIAL IV SCH (10:26)
[2024-01-29] MEDS ORDERED: ACETAMINOPHEN TAB 325 MG TAB PO PRN (12:22)
[2024-01-29] MEDS ORDERED: diphenhydrAMINE 25 MG CAP PO PRN (12:22)
[2024-01-29] MEDS ORDERED: VANCOMYCIN IV PER PHARMACY 1 EACH MISC MISCELLANE PRN (12:22)
[2024-01-29] MEDS ORDERED: MELATONIN 5 MG TABLET PO PRN (12:22)
[2024-01-29] MEDS ORDERED: ALBUTEROL NEBULIZED 2.5 MG/3 ML INHALATION PRN (12:22)
[2024-01-29] MEDS ORDERED: DEXTROSE 50% SYRINGE 50 ML IVP PRN ×2 (12:23)
[2024-01-29] MEDS: LACOSAMIDE 50 MG TABLET PO SCH (14:14)
[2024-01-29] MEDS: INSULIN ASPART (NovoLOG) 100 UNIT/ML VIAL SQ SCH (14:19)
[2024-01-29 14:22] LABS: Glucose,Whole Blood 130 mg/dL (70-110)
[2024-01-29 15:15] LABS: Erythrocyte Sedimentation Rate >130 mm/Hr (0-20)
[2024-01-29] MEDS: IPRATROPIUM-ALBUTEROL 3 ML NEB INHALATION PRN (15:20)
[2024-01-29] MEDS: ceFAZolin 3 GM in SODIUM CHLORIDE 0.9% 100 ML IVPB SCH (15:54)
[2024-01-29 17:23] LABS: Glucose,Whole Blood 108 mg/dL (70-110)
[2024-01-29 20:17] LABS: Glucose,Whole Blood 108 mg/dL (70-110)
[2024-01-29] MEDS: APIXABAN 5 MG TAB PO SCH (20:27)
[2024-01-29] MEDS: FAMOTIDINE 20 MG TAB PO SCH (20:27)
[2024-01-29] MEDS: ALPRAZolam 0.5 MG TAB PO PRN (20:27)
[2024-01-29] MEDS ORDERED: FAMOTIDINE 20 MG/2 ML VIAL IV SCH (21:00)
[2024-01-29] MEDS ORDERED: VANCOMYCIN 1,750 MG in SODIUM CHLORIDE 0.9% 500 ML 500 ML IVPB SCH (21:00)
--- NOTE | 2024-01-29 22:13 | P.CONS ---
History of Present Illness - Reason for Consult Consult date: 01/29/24 Left leg cellulitis Requesting physician: Sultana Phillips - Chief Complaint Increasing swelling redness to left leg x few days - History of Present Illness Patient is a 48-year-old female with a past medical history significant for diabetes mellitus insulin-dependent hypertension and CVA TIA heart failure seizure disorder in this patient who did have a history of diabetic foot infection requiring right below the knee amputation and did have a chronic nonhealing wound to the left foot plantar aspect patient presenting to the ER for evaluation of increasing swelling and redness to the left lower extremity that apparently has been getting worse for the last 1 week or so patient denies having history of any trauma has been complaining of increasing swelling with associated redness and pain patient describes the pain to be sharp moderate intensity without any radiation patient currently do not have any blisters to the lower extremity or any drainage did have some chills on presentation to the hospital patient was afebrile no fever have recorded subsequently patient was nontachycardic hypertensive or hypoxic patient did have a white count of 22.2 with a left shift BUN/creatinine has been mildly elevated lactic acid was elevated liver enzymes are normal CRP is 35 influenza RSV COVID testing was negative patient did have a chest x-ray cardiomegaly pulmonary vascular congestion and bilateral effusion patient did have a lower extremity Doppler that was negative for DVT the patient was started on clindamycin and vancomycin infectious disease was consulted for further management of antibiotic therapy Review of Systems Positive point and negatives has been mentioned in the HPI, complete review of systems was performed and all other systems are negative Past Medical History Past Medical History: Asthma, Heart Failure, COPD, CVA/TIA, Diabetes Mellitus, Hypertension, Myocardial Infarction ([place]), Pneumonia, Seizure Disorder, Seizure Disorder Additional Past Medical History / Comment(s): uses a wheelchair. 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 has pacemaker defibrillator, right all toe amputated 04/2016, LT GREAT TOE then left foot partial amputation Past Anesthesia/Blood Transfusion Reactions: Postoperative Nausea & Vomiting (PONV) Type of Cardiac Device: Biventricular Pacemaker, Permanent Pacemaker, AICD Device Placement Date:: 2011 Past Psychological History: Bipolar Smoking Status: Former smoker Past Alcohol Use History: None Reported Past Drug Use History: Marijuana - Past Family History Mother Family Medical History: Deep Vein Thrombosis (DVT) Additional Family Medical History / Comment(s): Some type of heart problems, kidney failure. Father History Unknown: Yes Family Medical History: Unable to Obtain Additional Family Medical History / Comment(s): Patient denies knowing any medical history on her father. Medications and Allergies Home Medications Medication Instructions Recorded Confirmed Type Insulin Glargine [Lantus Vial] 15 unit SQ DAILY PRN 04/30/19 01/29/24 History Apixaban [Eliquis] 5 mg PO BID 07/27/19 01/29/24 History Ipratropium-Albuterol Nebulize 3 ml INHALATION RT-QID PRN 05/21/20 01/29/24 History [Duoneb 0.5 mg-3 mg/3 ml Soln] Gabapentin [Neurontin] 600 mg PO TID #9 tab 12/23/20 01/29/24 Rx ALPRAZolam [Xanax] 0.5 mg PO BID PRN 05/07/23 01/29/24 History Albuterol Sulfate [Albuterol 1 - 2 puff INHALATION RT-Q6H PRN 05/07/23 01/29/24 History Sulfate Hfa] Insulin Aspart [NovoLOG Flexpen] See Protocol SQ AC-TID PRN 05/07/23 01/29/24 History Acetaminophen Tab [Tylenol] 650 mg PO Q6HR PRN tab 05/13/23 01/29/24 Rx diphenhydrAMINE [Benadryl] 25 mg PO TID PRN cap 05/13/23 01/29/24 Rx Acetaminophen/Diphenhydramine 2 tab PO HS PRN 01/29/24 01/29/24 History [Tylenol PM 500-25mg] Lacosamide [Vimpat] 50 mg PO BID 01/29/24 01/29/24 History Melatonin 5 mg PO HS PRN 01/29/24 01/29/24 History Midodrine [ProAmatine] 5 mg PO AC-TID PRN 01/29/24 01/29/24 History Pantoprazole [Protonix] 40 mg PO DAILY 01/29/24 01/29/24 History Bumetanide [BUMEX] 1 mg PO BID #60 tab 02/01/24 Rx Cephalexin [Keflex] 500 mg PO Q6HR 10 Days #40 cap 02/01/24 Rx Metoprolol Tartrate [Lopressor] 12.5 mg PO BID #60 tab 02/01/24 Rx Sacubitril/Valsartan [Entresto 24 1 each PO BID #60 tab 02/01/24 Rx mg-26 mg Tablet] Allergies Allergy/AdvReac Type Severity Reaction Status Date / Time Penicillins Allergy Rash/Hives Verified 01/29/24 10:24 vancomycin Allergy Rash/Hives Verified 01/29/24 10:24 ondansetron [From Zofran] AdvReac Nausea & Verified 01/29/24 10:24 Vomiting Physical Exam Vitals: Vital Signs Temp Pulse Resp BP Pulse Ox 01/29/24 09:00 100 16 140/68 96 01/29/24 07:40 88 16 98/68 98 01/29/24 02:28 98.0 F 01/29/24 00:18 107 H 18 114/62 98 01/28/24 23:00 102 H 18 97/65 98 01/28/24 22:00 104 H 18 112/76 97 01/28/24 21:09 114 H 01/28/24 21:01 116 H 01/28/24 20:10 18 121/69 96 01/28/24 20:00 18 132/80 98 01/28/24 17:46 97.9 F 100 18 98/56 100 Intake and Output 01/28/24 01/29/24 01/29/24 22:59 06:59 14:59 Other: Weight 117.934 kg GENERAL DESCRIPTION: Middle-aged female lying in bed, no distress. No tachypnea or accessory muscle of respiration use. HEENT: Shows Pallor , no scleral icterus. Oral mucous membrane is dry. No pharyngeal erythema or thrush NECK: Trachea central, no thyromegaly. LUNGS: Unlabored breathing. Clear to auscultation anteriorly. No wheeze or crackle. HEART: S1, S2, regular rate and rhythm. No loud murmur ABDOMEN: Soft, no tenderness , guarding or rigidity, no organomegaly EXTREMITIES: Right BKA stump is currently healed patient did have a wound on the plantar aspect of the left foot no significant drainage did have extensive swelling redness to the left leg SKIN: No rash, no masses palpable. NEUROLOGICAL: The patient is awake, alert, oriented x3, mood and affect normal. Results CBC & Chem 7: 01/30/24 07:27 01/31/24 09:06 Labs: Abnormal Lab Results - Last 24 Hours (Table) 01/28/24 01/28/24 01/28/24 Range/Units 19:42 19:42 19:42 WBC 22.2 H (3.8-10.6) k/uL MCHC 30.7 L (31.0-37.0) g/dL RDW 19.3 H (11.5-15.5) % Neutrophils # 19.8 H (1.3-7.7) k/uL Lymphocytes # 0.9 L (1.0-4.8) k/uL Monocytes # 1.1 H (0-1.0) k/uL INR 1.2 H (<1.2) Carbon Dioxide 21 L (22-30) mmol/L BUN 78 H (7-17) mg/dL Creatinine 1.94 H (0.52-1.04) mg/dL Glucose 153 H (74-99) mg/dL Plasma Lactic Acid Warren (0.7-2.0) mmol/L Troponin I (0.000-0.034) ng/mL C-Reactive Protein 35.0 H (<1.0) mg/dL Total Protein 8.6 H (6.3-8.2) g/dL 01/28/24 01/28/24 01/28/24 Range/Units 19:42 19:42 22:50 WBC (3.8-10.6) k/uL MCHC (31.0-37.0) g/dL RDW (11.5-15.5) % Neutrophils # (1.3-7.7) k/uL Lymphocytes # (1.0-4.8) k/uL Monocytes # (0-1.0) k/uL INR (<1.2) Carbon Dioxide (22-30) mmol/L BUN (7-17) mg/dL Creatinine (0.52-1.04) mg/dL Glucose (74-99) mg/dL Plasma Lactic Acid Warren 2.3 H* 2.2 H* (0.7-2.0) mmol/L Troponin I 0.060 H* (0.000-0.034) ng/mL C-Reactive Protein (<1.0) mg/dL Total Protein (6.3-8.2) g/dL 01/29/24 01/29/24 01/29/24 Range/Units 02:08 02:47 02:47 WBC 19.1 H (3.8-10.6) k/uL MCHC (31.0-37.0) g/dL RDW 19.2 H (11.5-15.5) % Neutrophils # 17.0 H (1.3-7.7) k/uL Lymphocytes # 0.9 L (1.0-4.8) k/uL Monocytes # (0-1.0) k/uL INR (<1.2) Carbon Dioxide 18 L (22-30) mmol/L BUN 81 H (7-17) mg/dL Creatinine 2.00 H (0.52-1.04) mg/dL Glucose 147 H (74-99) mg/dL Plasma Lactic Acid Warren (0.7-2.0) mmol/L Troponin I 0.046 H* (0.000-0.034) ng/mL C-Reactive Protein (<1.0) mg/dL Total Protein (6.3-8.2) g/dL Assessment and Plan (1) Allergy to multiple antibiotics Status: Acute Code(s): Z88.1 - ALLERGY STATUS TO OTHER ANTIBIOTIC AGENTS SNOMED Code(s): 983807065 (2) Diabetic foot ulcer Status: Acute Code(s): E11.621 - TYPE 2 DIABETES MELLITUS WITH FOOT ULCER; L97.509 - NON-PRESSURE CHRONIC ULCER OTH PRT UNSP FOOT W UNSP SEVERITY SNOMED Code(s): 678935504 (3) Left leg cellulitis Status: Acute Code(s): L03.116 - CELLULITIS OF LEFT LOWER LIMB SNOMED Code(s): 82780499963467115 (4) Sepsis Status: Acute Code(s): A41.9 - SEPSIS, UNSPECIFIED ORGANISM SNOMED Code(s): 04376228 Plan: 1patient presented to hospital with extensive left lower extremity cellulitis in this patient who did have diffuse swelling redness likely streptococcal disease patient did have a wound on the plantar aspect of the left foot more likely etiology of this left lower extremity cellulitis 2patient with a penicillin allergy that will limit the number of antibiotics safe to use 3patient with a renal insufficiency and high risk of nephrotoxicity from van comycin 4we will discontinue vancomycin continue clindamycin add cefazolin 5mark area of redness and apply Odilon wrap from just above the toe to below the knee change daily and apply Aquacel dressing to the wound on the plantar aspect of the left foot this was discussed with the nursing staff We will follow on clinical condition and cultures to further adjust medication if needed Thank you for this consultation we will follow the patient along with you Dictation was produced using [employer] dictation software. please excuse any grammatical, word or spelling errors. Time with Patient: Greater than 30
[2024-01-30] MEDS: PANTOPRAZOLE 40 MG TABLET PO SCH (07:54)
[2024-01-30 07:56] LABS: Glucose,Whole Blood 100 mg/dL (70-110)
[2024-01-30 08:00] LABS: Anisocytosis Slight; Basophils % (A) 0 %; Eosinophils # (A) 0.1 k/uL (0-0.7); Eosinophils % (A) 2 %; HCT 39.1 % (34.0-46.0); HGB 11.8 gm/dL (11.4-16.0); Hypochromasia Marked; Lymphocytes # (A) 0.7 k/uL (1.0-4.8); Lymphocytes % (A) 11 %; MCH 26.9 pg (25.0-35.0); MCHC 30.1 g/dL (31.0-37.0); MCV 89.2 fL (80.0-100.0); Mean Platelet Volume 8.8; Monocytes # (A) 0.4 k/uL (0-1.0); Monocytes % (A) 6 %; Neutrophils % (A) 77 %; Platelet Count 225 k/uL (150-450); RBC 4.39 m/uL (3.80-5.40); RDW 19.1 % (11.5-15.5); WBC 6.6 k/uL (3.8-10.6)
[2024-01-30] MEDS: METOPROLOL TARTRATE 12.5 MG TAB PO SCH (08:37)
[2024-01-30 09:13] LABS: African American GFR (CKD) 43 (>60 ml/min/1.73 sqM); Anion Gap 13 mmol/L; Blood Urea Nitrogen 86 mg/dL (7-17); Calcium 8.7 mg/dL (8.4-10.2); Carbon Dioxide 23 mmol/L (22-30); Chloride 104 mmol/L (98-107); Glucose 114 mg/dL (74-99); Non-African American GFR(CKD) 37 (>60 ml/min/1.73 sqM); Potassium 4.2 mmol/L (3.5-5.1); Sodium 140 mmol/L (137-145)
[2024-01-30] MEDS: MIDODRINE 5 MG TAB PO PRN (10:57)
[2024-01-30 12:17] LABS: Glucose,Whole Blood 168 mg/dL (70-110)
[2024-01-30 12:54] LABS: Appearance,Urine Clear (Clear); Bilirubin,Urine Negative (Negative); Blood,Urine Negative (Negative); Color,Urine Yellow; Glucose,Urine (UA) Negative (Negative); Ketones,Urine Negative (Negative); Leukocyte Esterase,Urine Negative (Negative); Nitrite,Urine Negative (Negative); Protein,Urine Trace (Negative); Specific Gravity,Urine 1.016 (1.001-1.035); Urobilinogen,Urine <2.0 mg/dL (<2.0)
--- NOTE | 2024-01-30 13:02 | P.CRDCN ---
History of Present Illness History of present illness: HISTORY OF PRESENT ILLNESS: This is a 48-year-old female with a past medical history significant for nonischemic cardiomyopathy, right AKA, left toe amputations, CHF, hypertension, diabetes, chronic kidney disease, and DVT. Patient follows in the office with Dr. Raymundo. We have been asked to see the patient in consultation for elevated troponin. Patient examined at the bedside in the emergency room. Patient states she presented to the hospital with a chief complaint of shortness of breath. Patient also reports she was having fever and chills at home. Patient was found to be in acute heart failure and was started on IV Lasix 40 mg every 12 hours. She is also receiving IV antibiotics secondary to left lower extremity cellulitis. The patient currently denies any chest pain or pressure. She reports improvement in her shortness of breath. Vital signs are stable. DIAGNOSTICS: - EKG reveals ventricular paced rhythm. - Chest xray cardiomegaly, pulmonary vascular congestion and bilateral pleural effusions. - Laboratory data: WBC 6.6. Hemoglobin 11.8. Platelet count 225. Sodium 140. Potassium 4.2. BUN 86. Creatinine 1.6. Troponin 0.060. 0.046. 0.030 - Current home cardiac medications include Entresto 49 mg - 51 mg twice a day, midodrine 5 mg 3 times a day as needed, Bumex 1 mg twice a day, Eliquis 5 mg twice a day. - Most recent echocardiogram obtained in 2019 revealed ejection fraction 20 to 25%, trace to mild MR, mild TR REVIEW OF SYSTEMS: At the time of my exam: CONSTITUTIONAL: Denies fever or chills. HEENT: Denies blurred vision, vision changes, or eye pain. Denies hemoptysis CARDIOVASCULAR: Denies chest pain. Denies orthopnea. Denies PND. Denies palpitations RESPIRATORY: Denies shortness of breath. GASTROINTESTINAL: Denies abdominal pain. Denies nausea or vomiting. HEMATOLOGIC: Denies bleeding disorders. GENITOURINARY: Denies any blood in urine. SKIN: Denies pruitis. Denies rash. PHYSICAL EXAM: VITAL SIGNS: Reviewed. GENERAL: Well-developed in no acute distress. HEENT: Head is normocephalic. Pupils are equal, round. Sclerae anicteric. Mucous membranes of the mouth are moist. Neck supple. No JVD or thyromegaly LUNGS: Respirations even and unlabored. Lungs essentially clear to auscultation bilaterally. HEART: Regular rate and rhythm. S1 and S2 heard. ABDOMEN: Soft. Nondistended. Nontender. EXTREMITIES: Normal range of motion. No clubbing or cyanosis. Peripheral pulses intact. Right BKA. Amputation of left toes noted. Swelling and erythema to left lower extremity. NEUROLOGIC: Awake and alert. Oriented x 3. ASSESSMENT: Shortness of breath Acute on chronic heart failure with reduced EF, 20 to 25% Left lower extremity cellulitis Leukocytosis Elevated lactic acid Abnormal troponins, no evidence of ACS, likely secondary to infectious process Nonischemic cardiomyopathy Chronic kidney disease History of DVT, on Eliquis outpatient History of AICD implantation History of right AKA History of left toe amputations Hypertension Diabetes PLAN: An acute coronary but has been ruled out Obtain 2D echo to assess cardiac structure and function Resume home cardiac medications Entresto currently on hold. If renal function remains stable, will resume in the next 24 to 48 hours Continue IV Lasix 40 mg every 12 hours Daily weights, accurate I and O, and monitoring of kidney function Continue IV antibiotics per infectious disease Further recommendations pending patient course Nurse practitioner note has been reviewed by physician. Signing provider agrees with the documented findings, assessment, and plan of care documented by OCCASIONAL BABYSITTER as a scribe. Past Medical History Past Medical History: Asthma, Heart Failure, COPD, CVA/TIA, Diabetes Mellitus, Hypertension, Myocardial Infarction (GA), Pneumonia, Seizure Disorder, Seizure Disorder Additional Past Medical History / Comment(s): uses a wheelchair. Patient states last seizure summer 2019 while she [facility] Last Myocardial Infarction Date:: 06/2018 History of Any Multi-Drug Resistant Organisms: ESBL, VRE, VRE Date of last positivie culture/infection: 12/18/20 ESBL E.coli; 04/22/17 VRE MDRO Source:: ESBL Left foot; VRE Right Foot Past Surgical History: Adenoidectomy, AICD, Section, Heart Catheterization, Orthopedic Surgery, Pacemaker, Tonsillectomy Additional Past Surgical History / Comment(s): AICD - [id number]. has pacemaker defibrillator, right all toe amputated 04/2016, [facility]E then left foot partial amputation Past Anesthesia/Blood Transfusion Reactions: Postoperative Nausea & Vomiting (PONV) Type of Cardiac Device: Biventricular Pacemaker, Permanent Pacemaker, AICD Device Placement Date:: 2011 Past Psychological History: Bipolar Smoking Status: Former smoker Past Alcohol Use History: None Reported Past Drug Use History: Marijuana - Past Family History Mother Family Medical History: Deep Vein Thrombosis (DVT) Additional Family Medical History / Comment(s): Some type of heart problems, kidney failure. Father History Unknown: Yes Family Medical History: Unable to Obtain Additional Family Medical History / Comment(s): Patient denies knowing any medical history on her father. Medications and Allergies Home Medications Medication Instructions Recorded Confirmed Type Insulin Glargine [Lantus Vial] 15 unit SQ DAILY PRN 04/30/19 01/29/24 History Apixaban [Eliquis] 5 mg PO BID 07/27/19 01/29/24 History Ipratropium-Albuterol Nebulize 3 ml INHALATION RT-QID PRN 05/21/20 01/29/24 History [Duoneb 0.5 mg-3 mg/3 ml Soln] Gabapentin [Neurontin] 600 mg PO TID #9 tab 12/23/20 01/29/24 Rx ALPRAZolam [Xanax] 0.5 mg PO BID PRN 05/07/23 01/29/24 History Albuterol Sulfate [Albuterol 1 - 2 puff INHALATION RT-Q6H PRN 05/07/23 01/29/24 History Sulfate Hfa] Insulin Aspart [NovoLOG Flexpen] See Protocol SQ AC-TID PRN 05/07/23 01/29/24 History Sacubitril/Valsartan [Entresto 49 1 tab PO BID 05/07/23 01/29/24 History mg-51 mg Tablet] Acetaminophen Tab [Tylenol] 650 mg PO Q6HR PRN tab 05/13/23 01/29/24 Rx diphenhydrAMINE [Benadryl] 25 mg PO TID PRN cap 05/13/23 01/29/24 Rx Acetaminophen/Diphenhydramine 2 tab PO HS PRN 01/29/24 01/29/24 History [Tylenol PM 500-25mg] Bumetanide [BUMEX] 1 mg PO BID 01/29/24 01/29/24 History Lacosamide [Vimpat] 50 mg PO BID 01/29/24 01/29/24 History Melatonin 5 mg PO HS PRN 01/29/24 01/29/24 History Midodrine [ProAmatine] 5 mg PO AC-TID PRN 01/29/24 01/29/24 History Pantoprazole [Protonix] 40 mg PO DAILY 01/29/24 01/29/24 History Allergies Allergy/AdvReac Type Severity Reaction Status Date / Time Penicillins Allergy Rash/Hives Verified 01/29/24 10:24 vancomycin Allergy Rash/Hives Verified 01/29/24 10:24 ondansetron [From Zofran] AdvReac Nausea & Verified 01/29/24 10:24 Vomiting Physical Exam Vitals: Vital Signs Temp Pulse Resp BP Pulse Ox 01/30/24 06:56 97.6 F 86 18 98/72 95 01/30/24 02:39 86 12 97/62 95 01/30/24 01:28 80 17 120/91 97 01/29/24 15:52 89 16 108/45 97 01/29/24 15:29 85 01/29/24 15:21 83 16 01/29/24 14:00 80 16 100/63 95 01/29/24 12:00 59 L 16 134/75 98 01/29/24 10:01 20 01/29/24 09:46 68 16 134/85 98 01/29/24 09:00 100 16 140/68 96 Results 01/30/24 07:27 01/30/24 07:27 Cardiac Enzymes 01/29/24 Range/Units 14:45 Troponin I 0.030 (0.000-0.034) ng/mL CBC 01/30/24 Range/Units 07:27 WBC 6.6 (3.8-10.6) k/uL RBC 4.39 (3.80-5.40) m/uL Hgb 11.8 (11.4-16.0) gm/dL Hct 39.1 (34.0-46.0) % Plt Count 225 (150-450) k/uL Current Medications Generic Name Dose Route Start Last Admin Trade Name Freq PRN Reason Stop Dose Admin Acetaminophen 650 mg 01/29/24 12:22 Acetaminophen Tab 325 Mg Tab PO Q6HR PRN Mild Pain or Fever > 100.5 Albuterol Sulfate 2.5 mg 01/29/24 12:22 Albuterol Nebulized 2.5 Mg/3 Ml INHALATION RT-Q6H PRN Shortness Of Breath Albuterol/Ipratropium 3 ml 01/29/24 12:22 01/29/24 15:20 Ipratropium-Albuterol 3 Ml Neb INHALATION 3 ml RT-QID PRN Administration Shortness Of Breath Alprazolam 0.5 mg 01/29/24 12:22 01/29/24 20:27 Alprazolam 0.5 Mg Tab PO 0.5 mg BID PRN Administration Anxiety Apixaban 5 mg 01/29/24 21:00 01/30/24 07:54 Apixaban 5 Mg Tab PO 5 mg BID JAN Administration Protocol Dextrose/Water 25 ml 01/29/24 12:23 Dextrose 50% Syringe 50 Ml IVP PER PROTOCOL PRN Hypoglycemia Protocol Dextrose/Water 50 ml 01/29/24 12:23 Dextrose 50% Syringe 50 Ml IVP PER PROTOCOL PRN Hypoglycemia Protocol Diphenhydramine HCl 25 mg 01/29/24 12:22 Diphenhydramine 25 Mg Cap PO TID PRN Allergic Reaction Furosemide 40 mg 01/29/24 10:00 01/30/24 07:54 Furosemide 10 Mg/Ml 4 Ml Vial IV 40 mg Q12HR JAN Administration Hydromorphone HCl 1 mg 01/28/24 23:33 01/30/24 07:55 Hydromorphone 1 Mg/Ml 1 Ml Syringe IVP 1 mg Q3HR PRN Administration Severe Pain (Scale 7 to 10) Clindamycin Phosphate 600 mg/ 50 mls @ 50 mls/hr 01/28/24 23:00 01/30/24 07:56 IV Solution IVPB 50 mls/hr Q8H JAN Administration Protocol Cefazolin Sodium 3 gm/ Sodium 100 mls @ 200 mls/hr 01/29/24 16:00 01/30/24 00:07 Chloride IVPB 200 mls/hr Q8HR JAN Administration Protocol Insulin Aspart 0 unit 01/29/24 12:30 01/30/24 07:58 Insulin Aspart (Novolog) 100 Unit/Ml Vial SQ Not Given ACHS JAN Protocol Lacosamide 50 mg 01/29/24 12:30 01/30/24 07:54 Lacosamide 50 Mg Tablet PO 50 mg BID JAN Administration Melatonin 5 mg 03/03/24 12:22 Melatonin 5 Mg Tablet PO HS PRN sleep Midodrine 5 mg 01/29/24 12:22 Midodrine 5 Mg Tab PO AC-TID PRN Hypotension Naloxone HCl 0.2 mg 01/28/24 23:21 Naloxone 0.4 Mg/Ml 1 Ml Vial IV Q2M PRN Opioid Reversal Pantoprazole Sodium 40 mg 01/30/24 09:00 01/30/24 07:54 Pantoprazole 40 Mg Tablet PO 40 mg DAILY JAN Administration 01/30/24 07:27 01/29/24 02:47
[2024-01-30] MEDS: NYSTATIN 100,000 UNIT/GM POWD 15 GM TOPICAL SCH (16:10)
[2024-01-30 16:36] LABS: Glucose,Whole Blood 150 mg/dL (70-110)
--- NOTE | 2024-01-30 18:43 | CA ---
Transthoracic Echo Report Name: Flaca Hinson Age: 48 Gender: F : 1975 Exam Date: 01/30/2024 14:27 Exam Location: [place] [facility] Ht (in): 67 Wt (lb): 260 Ordering Physician: Kim Payton Attending/Referring Phys: [id number], [employer]pper Kylee Valles RDCS Procedure CPT: Indications: LV function, elevated trop Cardiac Hx: Technical Quality: Fair Contrast 1: Total Dose (mL): Contrast 2: Total Dose (mL): MEASUREMENTS (Male / Female) Normal Values 2D ECHO LV Diastolic Diameter PLAX 6.9 cm 4.2 - 5.9 / 3.9 - 5.3 cm LV Systolic Diameter PLAX 6.2 cm IVS Diastolic Thickness 1.3 cm 0.6 - 1.0 / 0.6 - 0.9 cm LVPW Diastolic Thickness 1.0 cm 0.6 - 1.0 / 0.6 - 0.9 cm LV Relative Wall Thickness 0.3 RV Internal Dim ED PLAX 4.3 cm LA Volume 110.0 cm??? 18 - 58 / 22 - 52 cm??? LA Volume Index 45.5 cm???/m??? 16 - 28 cm???/m??? M-MODE Aortic Root Diameter MM 2.8 cm LA Systolic Diameter MM 5.3 cm LA Ao Ratio MM 1.9 AV Cusp Separation MM 1.8 cm DOPPLER AV Peak Velocity 180.5 cm/s AV Peak Gradient 13.0 mmHg AV Mean Velocity 131.7 cm/s AV Mean Gradient 7.6 mmHg AV Velocity Time Integral 34.1 cm LVOT Peak Velocity 73.2 cm/s LVOT Peak Gradient 2.1 mmHg LVOT Velocity Time Integral 13.6 cm MV E' Velocity 5.1 cm/s TR Peak Velocity 319.5 cm/s TR Peak Gradient 40.8 mmHg Right Atrial Pressure 20.0 mmHg Pulmonary Artery Systolic Pressu 60.8 mmHg Right Ventricular Systolic Press 60.8 mmHg FINDINGS Left Ventricle Mildly increased left ventricular wall thickness. Left ventricular dilatation. Severely reduced global left ventricular systolic function. Left ventricular ejection fraction is estimated at 15-20 %. Right Ventricle Moderate right ventricular dilatation. Severe pulmonary hypertension. Right ventricular systolic pressure estimated at 61 mm hg. Right Atrium Moderate right atrial dilatation. Catheter/pacemaker wire in the right atrial cavity. Left Atrium Severely increased left atrial volume. Moderately increased left atrial area. Mitral Valve Mitral valve thickened. Moderate mitral annular calcification. Moderate mitral regurgitation. Aortic Valve Trileaflet aortic valve. No aortic valve stenosis or regurgitation. Aortic valve sclerosis. Tricuspid Valve Structurally normal tricuspid valve. [id number] tricuspid regurgitation. Pulmonic Valve Structurally normal pulmonic valve. Trace pulmonic regurgitation. Pericardium No pericardial effusion. Aorta Normal size aortic root and proximal ascending aorta. CONCLUSIONS Severe LV systolic dysfunction with an ejection fraction of 15-20% Severe pulmonary hypertension Moderate mitral regurgitation Moderate to severe tricuspid regurgitation Previewed by: Dr. Espinoza Riley MD (Electronically Signed) Final Date: 30 January 2024 18:42
[2024-01-30 20:07] LABS: Glucose,Whole Blood 117 mg/dL (70-110)
--- NOTE | 2024-01-30 20:45 | P.PN ---
Subjective This is a pleasant 48 years old female with past medical history of multiple medical problems including asthma, COPD, CHF, CVA/TIA, diabetes mellitus hypertension, seizure disorder Patient presents initially because of her left leg problem and does third-degree her shortness of breath. Patient is lying in bed flat with no significant orthopnea. She is mildly tachypneic complaining with no chest pain and mild coughing. However she has right BKA and left forefoot amputation and her left leg is bright red swollen and tender up to the knee. Patient denies any change in urine or bowel habits. No fever or chills. No headache dizziness weakness or numbness Patient denies smoking alcohol or illicit drugs Patient is mildly tachycardic with heart rate around 100, blood pressure is labile 98/68 and 114/68. She has leukocytosis of 22 and 19,000, creatinine is elevated 2.0, baseline 1.5- 1.7. Liver enzymes not elevated. Troponin is elevated 0.046 and 0.06. proBNP is elevated 322 00. Influenza A and type B, RSV, SARS (coronavirus) are and detected EKG showing ventricular paced rhythm Chest x-ray showing cardiomegaly with pulmonary vascular congestion CT of the brain is negative for acute process Left leg ultrasound is negative for DVT Echocardiogram from 2019 showing ejection fraction of 20 to 25% She was on Keflex at home, and Also she was on levaquin 01/30/2024 Patient clinically is improving her mentation at baseline Her leg swelling is less severe and baseline palpitation looks better Patient reports improvement in her dyspnea and she still denies abdominal pain or chest pain Her left leg cellulitis is improving it looks better, it is less red and less tender and less swollen Patient echocardiogram showing worsening ejection fraction was 20 to 25% before currently 15-20%, with moderate mitral regurgitation and moderate to severe tricuspid regurgitation and pulmonary hypertension She remains on cefazolin and clindamycin and Eliquis which she has it at home as well and IV Lasix 40 mg twice daily Creatinine improved to down to 1.6 and WBC went from 19,000 down to 6.6K Possible discharge in 24 to 48 hours if she keeps improving Review of systems CONSTITUTIONAL: No fever, no malaise, no fatigue. HEENT: No recent visual problems or hearing problems. Denied any sore throat. CARDIOVASCULAR: No orthopnea, PND, no palpitations, no syncope. PULMONARY: No shortness of breath, no cough, no hemoptysis. GASTROINTESTINAL: No diarrhea, no nausea, no vomiting, no abdominal pain. Normoactive bowel sounds. Active Medications Generic Name Dose Route Start Last Admin Trade Name Freq PRN Reason Stop Dose Admin Acetaminophen 650 mg 01/29/24 12:22 Acetaminophen Tab 325 Mg Tab PO Q6HR PRN Mild Pain or Fever > 100.5 Albuterol Sulfate 2.5 mg 01/29/24 12:22 Albuterol Nebulized 2.5 Mg/3 Ml INHALATION RT-Q6H PRN Shortness Of Breath Albuterol/Ipratropium 3 ml 01/29/24 12:22 01/29/24 15:20 Ipratropium-Albuterol 3 Ml Neb INHALATION 3 ml RT-QID PRN Administration Shortness Of Breath Alprazolam 0.5 mg 01/29/24 12:22 01/29/24 20:27 Alprazolam 0.5 Mg Tab PO 0.5 mg BID PRN Administration Anxiety Apixaban 5 mg 01/29/24 21:00 01/30/24 07:54 Apixaban 5 Mg Tab PO 5 mg BID JAN Administration Protocol Dextrose/Water 25 ml 01/29/24 12:23 Dextrose 50% Syringe 50 Ml IVP PER PROTOCOL PRN Hypoglycemia Protocol Dextrose/Water 50 ml 01/29/24 12:23 Dextrose 50% Syringe 50 Ml IVP PER PROTOCOL PRN Hypoglycemia Protocol Diphenhydramine HCl 25 mg 01/29/24 12:22 Diphenhydramine 25 Mg Cap PO TID PRN Allergic Reaction Furosemide 40 mg 01/29/24 10:00 01/30/24 07:54 Furosemide 10 Mg/Ml 4 Ml Vial IV 40 mg Q12HR JAN Administration Hydromorphone HCl 1 mg 01/28/24 23:33 01/30/24 16:18 Hydromorphone 1 Mg/Ml 1 Ml Syringe IVP 1 mg Q3HR PRN Administration Severe Pain (Scale 7 to 10) Clindamycin Phosphate 600 mg/ 50 mls @ 50 mls/hr 01/28/24 23:00 01/30/24 14:52 IV Solution IVPB 50 mls/hr Q8H JAN Administration Protocol Cefazolin Sodium 3 gm/ Sodium 100 mls @ 200 mls/hr 01/29/24 16:00 01/30/24 17:34 Chloride IVPB 200 mls/hr Q8HR JAN Administration Protocol Insulin Aspart 0 unit 01/29/24 12:30 01/30/24 16:45 Insulin Aspart (Novolog) 100 Unit/Ml Vial SQ Not Given ACHS [facility] Protocol Lacosamide 50 mg 01/29/24 12:30 01/30/24 07:54 Lacosamide 50 Mg Tablet PO 50 mg BID JAN Administration Melatonin 5 mg 01/29/24 12:22 Melatonin 5 Mg Tablet PO HS PRN sleep Metoprolol Tartrate 12.5 mg 01/30/24 09:00 01/30/24 08:37 Metoprolol Tartrate 12.5 Mg Tab PO Not Given BID JAN Midodrine 5 mg 01/29/24 12:22 01/30/24 10:57 Midodrine 5 Mg Tab PO 5 mg AC-TID PRN Administration Hypotension Naloxone HCl 0.2 mg 01/28/24 23:21 Naloxone 0.4 Mg/Ml 1 Ml Vial IV Q2M PRN Opioid Reversal Nystatin 1 applic 01/30/24 16:00 01/30/24 16:10 Nystatin 100,000 Unit/Gm Powd 15 Gm TOPICAL 1 applic TID [facility] Administration Protocol Pantoprazole Sodium 40 mg 01/30/24 09:00 01/30/24 07:54 Pantoprazole 40 Mg Tablet PO 40 mg DAILY JAN Administration Objective - Vital Signs Vital signs: Vital Signs Temp 97.6 F 01/30/24 06:56 Pulse 81 01/30/24 12:34 Resp 16 01/30/24 12:34 BP 106/68 01/30/24 12:34 Pulse Ox 95 01/30/24 12:34 FiO2 - Exam [place] GENERAL: The patient is alert and oriented x3, not in any acute distress. Well developed, well nourished. HEENT: Pupils are round and equally reacting to light. EOMI. No scleral icterus. No conjunctival pallor. Normocephalic, atraumatic. No pharyngeal erythema. No thyromegaly. CARDIOVASCULAR: S1 and S2 present. No murmurs, rubs, or gallops. -PULMONARY: Chest is clear to auscultation, no wheezing , mild bilateral basal crackles. ABDOMEN: Soft, nontender, nondistended, normoactive bowel sounds. No palpable organomegaly. MUSCULOSKELETAL: No joint swelling or deformity. -EXTREMITIES: No cyanosis, clubbing, or left leg cellulitis is improving NEUROLOGICAL: Gross neurological examination did not reveal any focal deficits. SKIN: No rashes. no petechiae. - Labs CBC & Chem 7: 01/30/24 07:01/30/24 07:27 Labs: Abnormal Lab Results - Last 24 Hours (Table) 01/28/24 01/29/24 01/30/24 Range/Units 19:42 14:18 07:27 MCHC (31.0-37.0) g/dL RDW (11.5-15.5) % Lymphocytes # (1.0-4.8) k/uL ESR >130 H (0-20) mm/Hr BUN (7-17) mg/dL Creatinine (0.52-1.04) mg/dL Glucose (74-99) mg/dL POC Glucose (mg/dL) 130 H (70-110) mg/dL Hemoglobin A1c 6.1 H (<=6.0) % Urine Protein (Negative) 01/30/24 01/30/24 01/30/24 Range/Units 07:27 07:27 12:15 MCHC 30.1 L (31.0-37.0) g/dL RDW 19.1 H (11.5-15.5) % Lymphocytes # 0.7 L (1.0-4.8) k/uL ESR (0-20) mm/Hr BUN 86 H (7-17) mg/dL Creatinine 1.60 H (0.52-1.04) mg/dL Glucose 114 H (74-99) mg/dL POC Glucose (mg/dL) 168 H (70-110) mg/dL Hemoglobin A1c (<=6.0) % Urine Protein (Negative) 01/30/24 Range/Units 12:30 MCHC (31.0-37.0) g/dL RDW (11.5-15.5) % Lymphocytes # (1.0-4.8) k/uL ESR (0-20) mm/Hr BUN (7-17) mg/dL Creatinine (0.52-1.04) mg/dL Glucose (74-99) mg/dL POC Glucose (mg/dL) (70-110) mg/dL Hemoglobin A1c (<=6.0) % Urine Protein Trace H (Negative) Microbiology - Last 24 Hours (Table) 01/28/24 20:05 Blood Culture - Preliminary Blood 01/28/24 19:50 Blood Culture - Preliminary Blood Assessment and Plan Assessment: Left leg cellulitis failed outpatient treatment Acute on chronic CHF, Acute kidney injury on chronic kidney disease stage III. Mild metabolic encephalopathy, improved Asthma/COPD, no acute exacerbation History of CVA/TIA History of seizure Diabetes mellitus Hypertension I Plan: Continue with antibiotic, currently on clindamycin and IV vancomycin We will switch vancomycin pharmacy to dose till patient evaluated by infectious disease team Will start the patient on IV Lasix 40 mg twice daily Follow-up urine output and creatinine and electrolytes Cardiology consult we will start the pt on lasix and aspirin Labs and medication were reviewed.. Continue same treatment. Continue with s ymptomatic treatment. Resume home medication. Monitor labs and vitals. DVT and GI prophylaxis. Further recommendations as per clinical course of the patient DVT prophylaxis: Continue with anticoagulation GI Prophylaxis: Pepcid Prognosis is guarded
[2024-01-31 06:03] LABS: Glucose,Whole Blood 136 mg/dL (70-110)
[2024-01-31] MEDS: METOCLOPRAMIDE 5 MG/ML 2 ML VIAL IVP PRN (08:44)
[2024-01-31 09:45] LABS: African American GFR (CKD) 62 (>60 ml/min/1.73 sqM); Anion Gap 11 mmol/L; Blood Urea Nitrogen 72 mg/dL (7-17); Calcium 8.6 mg/dL (8.4-10.2); Carbon Dioxide 22 mmol/L (22-30); Chloride 105 mmol/L (98-107); Glucose 158 mg/dL (74-99); Non-African American GFR(CKD) 53 (>60 ml/min/1.73 sqM); Potassium 3.9 mmol/L (3.5-5.1); Sodium 138 mmol/L (137-145)
[2024-01-31 11:42] LABS: Glucose,Whole Blood 145 mg/dL (70-110)
--- NOTE | 2024-01-31 12:23 | P.PN ---
Subjective HISTORY OF PRESENT ILLNESS: This is a 48-year-old female with a past medical history significant for nonischemic cardiomyopathy, right BKA, left toe amputations, CHF, hypertension, diabetes, chronic kidney disease, and DVT. Patient follows in the office with Dr. Raymundo. We have been asked to see the patient in consultation for elevated troponin. Patient examined at the bedside in the emergency room. Patient states she presented to the hospital with a chief complaint of shortness of breath. Patient also reports she was having fever and chills at home. Patient was found to be in acute heart failure and was started on IV Lasix 40 mg every 12 hours. She is also receiving IV antibiotics secondary to left lower extremity cellulitis. The patient currently denies any chest pain or pressure. She reports improvement in her shortness of breath. Vital signs are stable. DIAGNOSTICS: - EKG reveals ventricular paced rhythm. - Chest xray cardiomegaly, pulmonary vascular congestion and bilateral pleural effusions. - Laboratory data: WBC 6.6. Hemoglobin 11.8. Platelet count 225. Sodium 140. Potassium 4.2. BUN 86. Creatinine 1.6. Troponin 0.060. 0.046. 0.030 - Current home cardiac medications include Entresto 49 mg - 51 mg twice a day, midodrine 5 mg 3 times a day as needed, Bumex 1 mg twice a day, Eliquis 5 mg twice a day. - Most recent echocardiogram obtained in 2019 revealed ejection fraction 20 to 25%, trace to mild MR, mild TR 01/31/2024 Patient examined this morning at the bedside. Patient denies chest pain or pressure. She reports improvement in her shortness of breath. She remains on IV Lasix 40 mg every 12 hours. Creatinine today 1.19. Echocardiogram completed revealing ejection fraction 15 to 20%, severe pulmonary hypertension, moderate mitral regurgitation, and moderate to severe TR PHYSICAL EXAM: VITAL SIGNS: Reviewed. GENERAL: Well-developed in no acute distress. HEENT: Head is normocephalic. Pupils are equal, round. Sclerae anicteric. Mucous membranes of the mouth are moist. Neck supple. No JVD or thyromegaly LUNGS: Respirations even and unlabored. Lungs essentially clear to auscultation bilaterally. HEART: Regular rate and rhythm. S1 and S2 heard. ABDOMEN: Soft. Nondistended. Nontender. EXTREMITIES: Normal range of motion. No clubbing or cyanosis. Peripheral pulses intact. Right BKA. Amputation of left toes noted. Swelling and erythema to left lower extremity. NEUROLOGIC: Awake and alert. Oriented x 3. ASSESSMENT: Shortness of breath Acute on chronic heart failure with reduced EF, 20 to 25% Left lower extremity cellulitis Leukocytosis Elevated lactic acid Abnormal troponins, no evidence of ACS, likely secondary to infectious process Nonischemic cardiomyopathy Chronic kidney disease History of DVT, on Eliquis outpatient History of AICD implantation History of right BKA History of left toe amputations Hypertension Diabetes PLAN: Continue current cardiac medications Will resume Entresto at lower dose of 24-26 mg twice a day. Monitor blood pressure. Continue IV Lasix 40 mg every 12 hours. Likely transition to oral dosing tomorrow. Daily weights, accurate I and O, and monitoring of kidney function Continue IV antibiotics per infectious disease Further recommendations pending patient course Nurse practitioner note has been reviewed by physician. Signing provider agrees with the documented findings, assessment, and plan of care documented by FOREIGN COLLECTION CLERK as a scribe. Objective - Vital Signs Vital signs: Vital Signs Temp 97.5 F L 01/31/24 08:00 Pulse 72 01/31/24 12:00 Resp 16 01/31/24 12:00 BP 106/68 01/31/24 12:00 Pulse Ox 97 01/31/24 12:00 FiO2 Intake & Output 01/30/24 01/31/24 01/31/24 18:59 06:59 18:59 Output Total 900 Balance -900 Weight 117.934 kg Output: Urine 900 Other: Voiding Method External Catheter External Catheter External Catheter - Labs CBC & Chem 7: 01/30/24 07:27 01/31/24 09:06 Labs: Abnormal Lab Results - Last 24 Hours (Table) 01/30/24 01/30/24 01/30/24 Range/Units 12:30 16:35 20:06 BUN (7-17) mg/dL Creatinine (0.52-1.04) mg/dL Glucose (74-99) mg/dL POC Glucose (mg/dL) 150 H 117 H (70-110) mg/dL Urine Protein Trace H (Negative) 01/31/24 01/31/24 01/31/24 Range/Units 06:01 09:06 11:41 BUN 72 H (7-17) mg/dL Creatinine 1.19 H (0.52-1.04) mg/dL Glucose 158 H (74-99) mg/dL POC Glucose (mg/dL) 136 H 145 H (70-110) mg/dL Urine Protein (Negative) Microbiology - Last 24 Hours (Table) 01/28/24 20:05 Blood Culture - Preliminary Blood 01/28/24 19:50 Blood Culture - Preliminary Blood
--- NOTE | 2024-01-31 13:26 | P.PN ---
Subjective Progress Note Date: 01/30/24 Principal diagnosis: Reason for follow-up is left lower extremity cellulitis Patient is a 48-year-old female with a past medical history significant for diabetes mellitus insulin-dependent hypertension and CVA TIA heart failure seizure disorder in this patient who did have a history of diabetic foot infection requiring right below the knee amputation and did have a chronic nonhealing wound to the left foot plantar aspect patient presenting to the ER for evaluation of increasing swelling and redness to the left lower extremity, patient has been diagnosed with extensive cellulitis admitted to hospital and started on IV antibiotics. On today's visit that is 01/30/2024, Patient is afebrile patient is currently on 2 L nasal cannula oxygen and denies having any shortness of breath, the patient denies any chest pain or cough, the patient denies any nausea vomiting did not have any abdominal pain and no diarrhea, left lower extremity swelling redness slightly decreased Patient white count normalized to 6.6 creatinine is 1.60 Objective - Vital Signs Vital signs: Vital Signs Temp 97.6 F 01/30/24 06:56 Pulse 89 01/30/24 08:31 Resp 16 01/30/24 08:31 BP 110/61 01/30/24 08:31 Pulse Ox 94 L 01/30/24 08:56 FiO2 - Exam GENERAL DESCRIPTION: Middle-aged female lying in bed in no distress RESPIRATORY SYSTEM: Unlabored breathing , decreased breath sounds at bases HEART: S1 S2 regular rate and rhythm , ABDOMEN: Soft , no tenderness EXTREMITIES: Left lower extremity swelling redness slightly decreased - Labs CBC & Chem 7: 01/30/24 07:27 01/31/24 09:06 Labs: Abnormal Lab Results - Last 24 Hours (Table) 01/28/24 01/29/24 01/30/24 Range/Units 19:42 14:18 07:27 MCHC (31.0-37.0) g/dL RDW (11.5-15.5) % Lymphocytes # (1.0-4.8) k/uL ESR >130 H (0-20) mm/Hr BUN 86 H (7-17) mg/dL Creatinine 1.60 H (0.52-1.04) mg/dL Glucose 114 H (74-99) mg/dL POC Glucose (mg/dL) 130 H (70-110) mg/dL 01/30/24 Range/Units 07:27 MCHC 30.1 L (31.0-37.0) g/dL RDW 19.1 H (11.5-15.5) % Lymphocytes # 0.7 L (1.0-4.8) k/uL ESR (0-20) mm/Hr BUN (7-17) mg/dL Creatinine (0.52-1.04) mg/dL Glucose (74-99) mg/dL POC Glucose (mg/dL) (70-110) mg/dL Assessment and Plan (1) Allergy to multiple antibiotics Current Visit: Yes Status: Acute Code(s): Z88.1 - ALLERGY STATUS TO OTHER ANTIBIOTIC AGENTS SNOMED Code(s): 856517497 (2) Leukocytosis Current Visit: Yes Status: Acute Code(s): D72.829 - ELEVATED WHITE BLOOD CELL COUNT, UNSPECIFIED SNOMED Code(s): 648446137 (3) Diabetic foot ulcer Current Visit: No Status: Acute Code(s): E11.621 - TYPE 2 DIABETES MELLITUS WITH FOOT ULCER; L97.509 - NON-PRESSURE CHRONIC ULCER OTH PRT UNSP FOOT W UNSP SEVERITY SNOMED Code(s): 704220781 (4) Left leg cellulitis Current Visit: No Status: Acute Code(s): L03.116 - CELLULITIS OF LEFT LOWER LIMB SNOMED Code(s): 24520396219584687 Plan: 1patient presented to hospital with extensive left lower extremity cellulitis in this patient who did have diffuse swelling redness likely streptococcal disease patient did have a wound on the plantar aspect of the left foot more likely etiology of this left lower extremity cellulitis 2patient with a penicillin allergy that will limit the number of antibiotics safe to use 3patient with a renal insufficiency and high risk of nephrotoxicity from vancomycin 4patient has been advised Odilon wrap from just above the toe to below the knee change daily and apply Aquacel dressing to the wound on the plantar aspect of the left foot this was discussed with the nursing staff 5we will continue the patient on cefazolin and clindamycin and monitor clinical course closely Dictation was produced using [employer] software. please excuse any grammatical, word or spelling errors. Time with Patient: Less than 30
--- NOTE | 2024-01-31 13:28 | P.PN ---
Subjective Progress Note Date: 01/31/24 Principal diagnosis: Reason for follow-up is left lower extremity cellulitis Patient is a 48-year-old female with a past medical history significant for diabetes mellitus insulin-dependent hypertension and CVA TIA heart failure seizure disorder in this patient who did have a history of diabetic foot infection requiring right below the knee amputation and did have a chronic nonhealing wound to the left foot plantar aspect patient presenting to the ER for evaluation of increasing swelling and redness to the left lower extremity, patient has been diagnosed with extensive cellulitis admitted to hospital and started on IV antibiotics. On today's visit that is 01/31/2024,the patient denies any fever or any chills, patient is breathing comfortably on 2 L nasal cannula oxygen, the patient denies chest pain shortness of breath and no significant cough, patient denies abdominal pain, no nausea vomiting or diarrhea, left lower extremity swelling redness and discomfort has decreased in intensity. Patient white count was 6.6 yesterday no CBC was done today creatinine is 1.19 Objective - Vital Signs Vital signs: Vital Signs Temp 97.5 F L 01/31/24 08:00 Pulse 72 01/31/24 12:00 Resp 16 01/31/24 12:00 BP 106/68 01/31/24 12:00 Pulse Ox 97 01/31/24 12:00 FiO2 Intake & Output 01/30/24 01/31/24 01/31/24 18:59 06:59 18:59 Output Total 900 Balance -900 Weight 117.934 kg Output: Urine 900 Other: Voiding Method External Catheter External Catheter External Catheter - Exam GENERAL DESCRIPTION: Middle-aged female lying in bed in no distress RESPIRATORY SYSTEM: Unlabored breathing , decreased breath sounds at bases HEART: S1 S2 regular rate and rhythm , ABDOMEN: Soft , no tenderness EXTREMITIES: Left lower extremity swelling redness has decreased in intensity - Labs CBC & Chem 7: 01/30/24 07:27 01/31/24 09:06 Labs: Abnormal Lab Results - Last 24 Hours (Table) 01/30/24 01/30/24 01/31/24 Range/Units 16:35 20:06 06:01 BUN (7-17) mg/dL Creatinine (0.52-1.04) mg/dL Glucose (74-99) mg/dL POC Glucose (mg/dL) 150 H 117 H 136 H (70-110) mg/dL 01/31/24 01/31/24 Range/Units 09:06 11:41 BUN 72 H (7-17) mg/dL Creatinine 1.19 H (0.52-1.04) mg/dL Glucose 158 H (74-99) mg/dL POC Glucose (mg/dL) 145 H (70-110) mg/dL Microbiology - Last 24 Hours (Table) 01/28/24 20:05 Blood Culture - Preliminary Blood 01/28/24 19:50 Blood Culture - Preliminary Blood Assessment and Plan (1) Allergy to multiple antibiotics Current Visit: Yes Status: Acute Code(s): Z88.1 - ALLERGY STATUS TO OTHER ANTIBIOTIC AGENTS SNOMED Code(s): 812765057 (2) Leukocytosis Current Visit: Yes Status: Acute Code(s): D72.829 - ELEVATED WHITE BLOOD CELL COUNT, UNSPECIFIED SNOMED Code(s): 993743815 (3) Diabetic foot ulcer Current Visit: No Status: Acute Code(s): E11.621 - TYPE 2 DIABETES MELLITUS WITH FOOT ULCER; L97.509 - NON-PRESSURE CHRONIC ULCER OTH PRT UNSP FOOT W UNSP SEVERITY SNOMED Code(s): 911865093 (4) Left leg cellulitis Current Visit: No Status: Acute Code(s): L03.116 - CELLULITIS OF LEFT LOWER LIMB SNOMED Code(s): 12799458084626332 Plan: 1patient presented to hospital with extensive left lower extremity cellulitis in this patient who did have diffuse swelling redness likely streptococcal disease patient did have a wound on the plantar aspect of the left foot more likely etiology of this left lower extremity cellulitis 2patient to continue with Odilon wrap from just above the toe to below the knee change daily and apply Aquacel dressing to the wound on the plantar aspect of the left foot this was discussed with the nursing staff 3we will continue patient on cefazolin however discontinue clindamycin and will reeval the patient tomorrow Dictation was produced using [employer] dictation software. please excuse any grammatical, word or spelling errors. Time with Patient: Less than 30
[2024-01-31 16:48] LABS: Glucose,Whole Blood 111 mg/dL (70-110)
--- NOTE | 2024-01-31 19:53 | P.PN ---
Subjective This is a pleasant 48 years old female with past medical history of multiple medical problems including asthma, COPD, CHF, CVA/TIA, diabetes mellitus hypertension, seizure disorder Patient presents initially because of her left leg problem and does third-degree her shortness of breath. Patient is lying in bed flat with no significant orthopnea. She is mildly tachypneic complaining with no chest pain and mild coughing. However she has right BKA and left forefoot amputation and her left leg is bright red swollen and tender up to the knee. Patient denies any change in urine or bowel habits. No fever or chills. No headache dizziness weakness or numbness Patient denies smoking alcohol or illicit drugs Patient is mildly tachycardic with heart rate around 100, blood pressure is labile 98/68 and 114/68. She has leukocytosis of 22 and 19,000, creatinine is elevated 2.0, baseline 1.5- 1.7. Liver enzymes not elevated. Troponin is elevated 0.046 and 0.06. proBNP is elevated 322 00. Influenza A and type B, RSV, SARS (coronavirus) are and detected EKG showing ventricular paced rhythm Chest x-ray showing cardiomegaly with pulmonary vascular congestion CT of the brain is negative for acute process Left leg ultrasound is negative for DVT Echocardiogram from 2019 showing ejection fraction of 20 to 25% She was on Keflex at home, and Also she was on levaquin 01/30/2024 Patient clinically is improving her mentation at baseline Her leg swelling is less severe and baseline palpitation looks better Patient reports improvement in her dyspnea and she still denies abdominal pain or chest pain Her left leg cellulitis is improving it looks better, it is less red and less tender and less swollen Patient echocardiogram showing worsening ejection fraction was 20 to 25% before currently 15-20%, with moderate mitral regurgitation and moderate to severe tricuspid regurgitation and pulmonary hypertension She remains on cefazolin and clindamycin and Eliquis which she has it at home as well and IV Lasix 40 mg twice daily Creatinine improved to down to 1.6 and WBC went from 19,000 down to 6.6K Possible discharge in 24 to 48 hours if she keeps improving 01/31/2024 pt leg swelling and cellulits are improving she remains on lasix iv and added entresto c/w on cefazoline and dc clindamycin she is on eliquis pt wants to go home upon discharge , she declines possilbity of [facility] possible discharge in 24 - 48 hr Objective - Vital Signs Vital signs: Vital Signs Temp 97.5 F L 01/31/24 08:00 Pulse 78 01/31/24 08:00 Resp 16 01/31/24 08:00 BP 105/71 01/31/24 08:00 Pulse Ox 97 01/31/24 08:00 FiO2 Intake & Output 01/30/24 01/31/24 01/31/24 18:59 06:59 18:59 Output Total 900 Balance -900 Weight 117.934 kg Output: Urine 900 Other: Voiding Method External Catheter External Catheter External Catheter - Exam [place] GENERAL: The patient is alert and oriented x3, not in any acute distress. Well developed, well nourished. HEENT: Pupils are round and equally reacting to light. EOMI. No scleral icterus. No conjunctival pallor. Normocephalic, atraumatic. No pharyngeal erythema. No thyromegaly. CARDIOVASCULAR: S1 and S2 present. No murmurs, rubs, or gallops. -PULMONARY: Chest is clear to auscultation, no wheezing , mild bilateral basal crackles. ABDOMEN: Soft, nontender, nondistended, normoactive bowel sounds. No palpable organomegaly. MUSCULOSKELETAL: No joint swelling or deformity. -EXTREMITIES: No cyanosis, clubbing, or left leg cellulitis is improving NEUROLOGICAL: Gross neurological examination did not reveal any focal deficits. SKIN: No rashes. no petechiae. - Labs CBC & Chem 7: 01/30/24 07:27 01/31/24 09:06 Labs: Abnormal Lab Results - Last 24 Hours (Table) 01/30/24 01/30/24 01/30/24 Range/Units 07:27 12:15 12:30 BUN (7-17) mg/dL Creatinine (0.52-1.04) mg/dL Glucose (74-99) mg/dL POC Glucose (mg/dL) 168 H (70-110) mg/dL Hemoglobin A1c 6.1 H (<=6.0) % Urine Protein Trace H (Negative) 01/30/24 01/30/24 01/31/24 Range/Units 16:35 20:06 06:01 BUN (7-17) mg/dL Creatinine (0.52-1.04) mg/dL Glucose (74-99) mg/dL POC Glucose (mg/dL) 150 H 117 H 136 H (70-110) mg/dL Hemoglobin A1c (<=6.0) % Urine Protein (Negative) 01/31/24 Range/Units 09:06 BUN 72 H (7-17) mg/dL Creatinine 1.19 H (0.52-1.04) mg/dL Glucose 158 H (74-99) mg/dL POC Glucose (mg/dL) (70-110) mg/dL Hemoglobin A1c (<=6.0) % Urine Protein (Negative) Microbiology - Last 24 Hours (Table) 01/28/24 20:05 Blood Culture - Preliminary Blood 01/28/24 19:50 Blood Culture - Preliminary Blood Assessment and Plan Assessment: Left leg cellulitis failed outpatient treatment Acute on chronic CHF, Acute kidney injury on chronic kidney disease stage III. Mild metabolic encephalopathy, improved Asthma/COPD, no acute exacerbation History of CVA/TIA History of seizure Diabetes mellitus Hypertension I Plan: Continue with antibiotic, currently on clindamycin and IV vancomycin We will switch vancomycin pharmacy to dose till patient evaluated by infectious disease team Will start the patient on IV Lasix 40 mg twice daily Follow-up urine output and creatinine and electrolytes Cardiology consult we will start the pt on lasix and aspirin Labs and medication were reviewed.. Continue same treatment. Continue with symptomatic treatment. Resume home medication. Monitor labs and vitals. DVT and GI prophylaxis. Further recommendations as per clinical course of the patient DVT prophylaxis: Continue with anticoagulation GI Prophylaxis: Pepcid Prognosis is guarded
[2024-01-31] MEDS: SACUBITRIL/VALSARTAN 24 MG-26 MG TABLET PO SCH (21:00)
[2024-01-31 21:02] LABS: Glucose,Whole Blood 154 mg/dL (70-110)
[2024-02-01 06:07] LABS: Glucose,Whole Blood 136 mg/dL (70-110)
[2024-02-01 09:18] VITALS: RESP 16; TEMP 97.4
[2024-02-01 11:36] LABS: Glucose,Whole Blood 136 mg/dL (70-110)
--- NOTE | 2024-02-01 12:26 | P.PN ---
Subjective HISTORY OF PRESENT ILLNESS: This is a 48-year-old female with a past medical history significant for nonischemic cardiomyopathy, right BKA, left toe amputations, CHF, hypertension, diabetes, chronic kidney disease, and DVT. Patient follows in the office with Dr. Raymundo. We have been asked to see the patient in consultation for elevated troponin. Patient examined at the bedside in the emergency room. Patient states she presented to the hospital with a chief complaint of shortness of breath. Patient also reports she was having fever and chills at home. Patient was found to be in acute heart failure and was started on IV Lasix 40 mg every 12 hours. She is also receiving IV antibiotics secondary to left lower extremity cellulitis. The patient currently denies any chest pain or pressure. She reports improvement in her shortness of breath. Vital signs are stable. DIAGNOSTICS: - EKG reveals ventricular paced rhythm. - Chest xray cardiomegaly, pulmonary vascular congestion and bilateral pleural effusions. - Laboratory data: WBC 6.6. Hemoglobin 11.8. Platelet count 225. Sodium 140. Potassium 4.2. BUN 86. Creatinine 1.6. Troponin 0.060. 0.046. 0.030 - Current home cardiac medications include Entresto 49 mg - 51 mg twice a day, midodrine 5 mg 3 times a day as needed, Bumex 1 mg twice a day, Eliquis 5 mg twice a day. - Most recent echocardiogram obtained in 2019 revealed ejection fraction 20 to 25%, trace to mild MR, mild TR 01/31/2024 Patient examined this morning at the bedside. Patient denies chest pain or pressure. She reports improvement in her shortness of breath. She remains on IV Lasix 40 mg every 12 hours. Creatinine today 1.19. Echocardiogram completed revealing ejection fraction 15 to 20%, severe pulmonary hypertension, moderate mitral regurgitation, and moderate to severe TR 02/01/2024 Patient examined this morning at the bedside. Patient denies any chest pain or pressure. She denies any shortness of breath. She remains on IV diuretics. Patient states she feels like she is back to her baseline and is hoping to be discharged home today. Vital signs are stable. PHYSICAL EXAM: VITAL SIGNS: Reviewed. GENERAL: Well-developed in no acute distress. HEENT: Head is normocephalic. Pupils are equal, round. Sclerae anicteric. Mucous membranes of the mouth are moist. Neck supple. No JVD or thyromegaly LUNGS: Respirations even and unlabored. Lungs essentially clear to auscultation bilaterally. HEART: Regular rate and rhythm. S1 and S2 heard. ABDOMEN: Soft. Nondistended. Nontender. EXTREMITIES: Normal range of motion. No clubbing or cyanosis. Peripheral pulses intact. Right BKA. Amputation of left toes noted. Swelling and erythema to left lower extremity, improved. NEUROLOGIC: Awake and alert. Oriented x 3. ASSESSMENT: Shortness of breath Acute on chronic heart failure with reduced EF, 20 to 25% Left lower extremity cellulitis Leukocytosis Elevated lactic acid Abnormal troponins, no evidence of ACS, likely secondary to infectious process Nonischemic cardiomyopathy Chronic kidney disease History of DVT, on Eliquis outpatient History of AICD implantation History of right BKA History of left toe amputations Hypertension Diabetes PLAN: Continue current cardiac medications Entresto resumed yesterday at lower dose of 24-26 mg twice a day. Monitor blood pressure. Discontinue IV Lasix. Reviewed resume oral Bumex Patient is stable for discharge home today from a cardiac standpoint She is to follow-up postdischarge in the office Nurse practitioner note has been reviewed by physician. Signing provider agrees with the documented findings, assessment, and plan of care documented by COFFEE MAKER SERVICER as a scribe. Objective - Vital Signs Vital signs: Vital Signs Temp 97.4 F L 02/01/24 08:00 Pulse 70 02/01/24 08:00 Resp 16 02/01/24 08:00 BP 100/67 02/01/24 08:00 Pulse Ox 97 02/01/24 08:00 FiO2 Intake & Output 01/31/24 02/01/24 02/01/24 18:59 06:59 18:59 Intake Total 661 10 Output Total 500 650 300 Balance 161 -640 -300 Weight 121.7 kg Intake: IV 10 Invasive Line 1 10 Intake, IV Titration 200 Amount ceFAZolin 3 gm In Sodium 200 Chloride 0.9% 100 ml @ 200 mls/hr IVPB Q8HR [facility] Rx#:[id number] Oral 461 Output: Urine 500 650 300 Other: Voiding Method External Catheter External Catheter External Catheter - Labs CBC & Chem 7: 01/30/24 07:27 01/31/24 09:06 Labs: Abnormal Lab Results - Last 24 Hours (Table) 01/31/24 01/31/24 02/01/24 Range/Units 16:47 20:44 06:06 POC Glucose (mg/dL) 111 H 154 H 136 H (70-110) mg/dL 02/01/24 Range/Units 11:34 POC Glucose (mg/dL) 136 H (70-110) mg/dL Microbiology - Last 24 Hours (Table) 01/28/24 20:05 Blood Culture - Preliminary Blood 01/28/24 19:50 Blood Culture - Preliminary Blood
[2024-02-01 12:48] VITALS: BP 111/73; PULSE 66
[2024-02-01] MEDS ORDERED: BUMETANIDE 1 MG TAB PO SCH (16:00)
--- NOTE | 2024-02-01 23:15 | P.DS ---
Providers Date of admission: 01/28/24 23:35 Attending physician: Latisha Tucker Consults: 01/28/24 23:33 Consult Physician Urgent Consulting Provider: Casi Blake Consult Reason/Comments: left leg cellulitis Do you want consulting provider notified?: Yes 01/29/24 09:51 Consult Physician Routine Consulting Provider: Francois Calvin Consult Reason/Comments: elevated troponin Do you want consulting provider notified?: Yes Primary care physician: Dylan Causey Hospital Course: Diagnoses: Left leg cellulitis failed outpatient treatment improved upon discharge to continue treatment as an outpatient Acute on chronic CHF, improved Acute kidney injury on chronic kidney disease stage III. Improved Mild metabolic encephalopathy, improved Asthma/COPD, no acute exacerbation History of CVA/TIA History of seizure Diabetes mellitus Hypertension Hospital course: This is a pleasant 48 years old female with past medical history of multiple medical problems including asthma, COPD, CHF, CVA/TIA, diabetes mellitus hypertension, seizure disorder Patient presents initially because of her left leg problem and to some degree her shortness of breath. Patient was found to have left leg cellulitis and acute CHF. Her left leg cellulitis was treated with cefazolin and clindamycin. ID team will follow closely. Then clindamycin was discontinued and patient continued to improve while she is on cefazolin. This was switched to Ceftin upon discharge. Also patient have elevated troponin. Repeat echocardiogram showed low ejection fraction 10 to 15% with moderate mitral regurgitation and tricuspid regu rgitation and severe pulmonary hypertension. Cardiology is following closely. Patient was treated with IV Lasix and she showed interval improvement. And her breathing and leg swelling. Patient today is fully awake oriented. Denies chest pain. No dyspnea. 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 She refused to go to rehab when she wants to go home with outpatient follow-up. Patient was cleared for discharge by ID team and cardiology team. Patient will be discharged on Bumex, metoprolol and lower dose of Entresto Problems and management plan were discussed with the patient and he verbalized understanding and acceptance Patient was found stable and can be discharged home in guarded prognosis however he needs follow-up as an outpatient. Patient was instructed to follow up with PCP Dr. Causey within one week and patient agrees Patient was instructed to follow-up with her home lighting adviser Dr. Raymundo in 1 to 2 weeks after discharge and she agrees Physical exam Gen: patient is a AAOx3, no distress CVS: S1-S2, RRR, no murmur -Lungs: B/L CTA, no wheezing. Minimal basilar crepitation improving Abdomen: soft, no distention, no tenderness, positive bowel sounds -Extremity: no leg edema or induration. Left leg cellulitis improving Time spent more than 35 minutes Patient Condition at Discharge: Serious Plan - Discharge Summary Discharge Rx Participant: No New Discharge Prescriptions: New Cephalexin [Keflex] 500 mg PO Q6HR 10 Days #40 cap Sacubitril/Valsartan [Entresto 24 mg-26 mg Tablet] 1 each PO BID #60 tab Metoprolol Tartrate [Lopressor] 12.5 mg PO BID #60 tab Continue Insulin Glargine [Lantus Vial] 15 unit SQ DAILY PRN PRN Reason: high blood sugar Apixaban [Eliquis] 5 mg PO BID Ipratropium-Albuterol Nebulize [Duoneb 0.5 mg-3 mg/3 ml Soln] 3 ml INHALATION RT-QID PRN PRN Reason: Shortness Of Breath Gabapentin [Neurontin] 600 mg PO TID #9 tab Insulin Aspart [NovoLOG Flexpen] See Protocol SQ AC-TID PRN PRN Reason: Blood Sugar - High ALPRAZolam [Xanax] 0.5 mg PO BID PRN PRN Reason: Anxiety Acetaminophen Tab [Tylenol] 650 mg PO Q6HR PRN tab PRN Reason: Mild Pain Or Fever > 100.5 Midodrine [ProAmatine] 5 mg PO AC-TID PRN PRN Reason: Hypotension Lacosamide [Vimpat] 50 mg PO BID Pantoprazole [Protonix] 40 mg PO DAILY Melatonin 5 mg PO HS PRN PRN Reason: sleep Acetaminophen/Diphenhydramine [Tylenol PM 500-25mg] 2 tab PO HS PRN PRN Reason: sleep Albuterol Sulfate [Albuterol Sulfate Hfa] 1 - 2 puff INHALATION RT-Q6H PRN PRN Reason: Shortness Of Breath diphenhydrAMINE [Benadryl] 25 mg PO TID PRN cap PRN Reason: Allergic Reaction Changed Bumetanide [BUMEX] 1 mg PO BID #60 tab Discontinued Sacubitril/Valsartan [Entresto 49 mg-51 mg Tablet] 1 tab PO BID Discharge Medication List Insulin Glargine [Lantus Vial] 15 unit SQ DAILY PRN 04/30/19 [History] Apixaban [Eliquis] 5 mg PO BID 07/27/19 [History] Ipratropium-Albuterol Nebulize [Duoneb 0.5 mg-3 mg/3 ml Soln] 3 ml INHALATION RT-QID PRN 05/21/20 [History] Gabapentin [Neurontin] 600 mg PO TID #9 tab 12/23/20 [Rx] ALPRAZolam [Xanax] 0.5 mg PO BID PRN 05/07/23 [History] Albuterol Sulfate [Albuterol Sulfate Hfa] 1 - 2 puff INHALATION RT-Q6H PRN 05/07/23 [History] Insulin Aspart [NovoLOG Flexpen] See Protocol SQ AC-TID PRN 05/07/23 [History] Acetaminophen Tab [Tylenol] 650 mg PO Q6HR PRN tab 05/13/23 [Rx] diphenhydrAMINE [Benadryl] 25 mg PO TID PRN cap 05/13/23 [Rx] Acetaminophen/Diphenhydramine [Tylenol PM 500-25mg] 2 tab PO HS PRN 01/29/24 [History] Lacosamide [Vimpat] 50 mg PO BID 01/29/24 [History] Melatonin 5 mg PO HS PRN 01/29/24 [History] Midodrine [ProAmatine] 5 mg PO AC-TID PRN 01/29/24 [History] Pantoprazole [Protonix] 40 mg PO DAILY 01/29/24 [History] Bumetanide [BUMEX] 1 mg PO BID #60 tab 02/01/24 [Rx] Cephalexin [Keflex] 500 mg PO Q6HR 10 Days #40 cap 02/01/24 [Rx] Metoprolol Tartrate [Lopressor] 12.5 mg PO BID #60 tab 02/01/24 [Rx] Sacubitril/Valsartan [Entresto 24 mg-26 mg Tablet] 1 each PO BID #60 tab 02/01/24 [Rx] Follow up Appointment(s)/Referral(s): Dylan Causey MD [Primary Care Provider] - 1-2 days Casi Blake MD [STAFF PHYSICIAN] - 1 Week Sarah Raymundo MD [STAFF PHYSICIAN] - 1 Week Activity/Diet/Wound Care/Special Instructions: Heart healthy diet, recommended fluid restriction 8268-5028 mL/day Activity is restricted till you see your doctor We recommend to monitor your glucose 4 times a day before each meal and at bedtime, keep the results in the log book and bring them to your doctor on your appointment date If your glucose less than 70 or more than 400 then call 911 and come to emergency room Discharge Disposition: HOME SELF-CARE
--- NOTE | 2024-02-02 16:09 | P.PN ---
Subjective Progress Note Date: 02/01/24 Principal diagnosis: Reason for follow-up is left lower extremity cellulitis Patient is a 48-year-old female with a past medical history significant for diabetes mellitus insulin-dependent hypertension and CVA TIA heart failure seizure disorder in this patient who did have a history of diabetic foot infection requiring right below the knee amputation and did have a chronic nonhealing wound to the left foot plantar aspect patient presenting to the ER for evaluation of increasing swelling and redness to the left lower extremity, patient has been diagnosed with extensive cellulitis admitted to hospital and started on IV antibiotics. On today's visit that is 02/01/2024,the patient remains to be afebrile, patient is on room air not requiring supplemental oxygen and denies any shortness of breath no chest pain or cough.Patient denies having any nausea or vomiting, no abdominal pain and no diarrhea has been reported, the patient left lower extremity swelling redness has improved No new labs obtained today Objective - Vital Signs Vital signs: Vital Signs Temp 97.4 F L 02/01/24 08:00 Pulse 70 02/01/24 08:00 Resp 16 02/01/24 08:00 BP 100/67 02/01/24 08:00 Pulse Ox 97 02/01/24 08:00 FiO2 Intake & Output 01/31/24 02/01/24 02/01/24 18:59 06:59 18:59 Intake Total 661 10 Output Total 500 650 300 Balance 161 -640 -300 Weight 121.7 kg Intake: IV 10 Invasive Line 1 10 Intake, IV Titration 200 Amount ceFAZolin 3 gm In Sodium 200 Chloride 0.9% 100 ml @ 200 mls/hr IVPB Q8HR [facility] Rx#:[id number] Oral 461 Output: Urine 500 650 300 Other: Voiding Method External Catheter External Catheter External Catheter - Exam GENERAL DESCRIPTION: Middle-aged female lying in bed in no distress RESPIRATORY SYSTEM: Unlabored breathing , decreased breath sounds at bases HEART: S1 S2 regular rate and rhythm , ABDOMEN: Soft , no tenderness EXTREMITIES: Left lower extremity swelling redness has decreased in intensity - Labs CBC & Chem 7: 01/30/24 07:27 01/31/24 09:06 Labs: Abnormal Lab Results - Last 24 Hours (Table) 01/31/24 01/31/24 02/01/24 Range/Units 16:47 20:44 06:06 POC Glucose (mg/dL) 111 H 154 H 136 H (70-110) mg/dL 02/01/24 Range/Units 11:34 POC Glucose (mg/dL) 136 H (70-110) mg/dL Microbiology - Last 24 Hours (Table) 01/28/24 20:05 Blood Culture - Preliminary Blood 01/28/24 19:50 Blood Culture - Preliminary Blood Assessment and Plan (1) Allergy to multiple antibiotics Status: Acute Code(s): Z88.1 - ALLERGY STATUS TO OTHER ANTIBIOTIC AGENTS SNOMED Code(s): 460277371 (2) Leukocytosis Status: Acute Code(s): D72.829 - ELEVATED WHITE BLOOD CELL COUNT, UNSPECIFIED SNOMED Code(s): 213377149 (3) Diabetic foot ulcer Status: Acute Code(s): E11.621 - TYPE 2 DIABETES MELLITUS WITH FOOT ULCER; L97.509 - NON-PRESSURE CHRONIC ULCER OTH PRT UNSP FOOT W UNSP SEVERITY SNOMED Code(s): 011433553 (4) Left leg cellulitis Status: Acute Code(s): L03.116 - CELLULITIS OF LEFT LOWER LIMB SNOMED Code(s): 42944521185867541 Plan: 1patient presented to hospital with extensive left lower extremity cellulitis in this patient who did have diffuse swelling redness likely streptococcal disease patient did have a wound on the plantar aspect of the left foot more li aleks etiology of this left lower extremity cellulitis 2patient to continue with Odilon wrap from just above the toe to below the knee change daily and apply Aquacel dressing to the wound on the plantar aspect of the left foot this was discussed with the nursing staff 3patient has shown clinical improvement as for as left lower extremity cellulitis he will finish therapy with oral Keflex prescription sent to the pharmacy Dictation was produced using [employer] dictation software. please excuse any gra mmatical, word or spelling errors. Time with Patient: Less than 30
--- NOTE | 2024-02-06 11:47 | CDI ---
Documentation Clarification Form Date: 02/06/24 From: Gadiel Acosta, RACHEL, RN Phone: [phone] Admit Date: 01/28/2024 11:35:00 PM Patient Name: Flaca Hinson Visit Number: [id number] Discharge Date: 02/01/2024 01:32:00 PM ATTENTION: The Clinical Documentation Specialists (CDI) and [facility] Coding Staff appreciate your assistance in clarifying documentation. Please respond to the clarification below the line at the bottom and electronically sign. The CDI & [facility] Coding staff will review the response and follow-up if needed. Please note: Queries are made part of the Legal Health Record. If you have any questions, please contact the author of this message via ITS. Dr. Blake Patient presented to hospital with extensive left lower extremity cellulitis in this patient who did have diffuse swelling redness likely streptococcal disease patient did have a wound on the plantar aspect of the left foot more likely etiology of this left lower extremity cellulitis was documented in the ID consult 01/28. Based on this information and the findings below, is there an additional diagnosis that is clinically appropriate for this patient? History/Risk Factors: 48 yo female presented to ED with increasing swelling and redness to her LLE. PMH significant for diabetes mellitus insulin-dependent hypertension and CVA TIA heart failure seizure disorder in this patient who did have a history of diabetic foot infection requiring right below the knee amputation and did have a chronic non-healing wound to the left foot plantar aspect (ID consult 01/28) Clinical Indicators: Patient is mildly tachycardic with heart rate around 100, blood pressure is labile 98/68 and 114/68. She has leukocytosis of 22 was documented in the H&P ED note patient denies fever chills Left leg cellulitis, failed outpatient treatment (H&P 01/28, DS 01/31) She was on Keflex at home, and Also she was on Levaquin (PN 01/28) Lactic acid 2.3, 2.2, 1.9 Blood cultures negative x 2 at 5 days (drawn 01/27) VS in ED 01/27 T 97.9 P 97 R 16 BP 116/72 Treatment: ID Consult ordered 01/27 Urgent for left leg cellulitis, completed 01/28 as above Patient was initially started on Vancomycin 01/27 which was dcd by ID 01/28. Clindamycin 600 mg IV q8h started 01/27, dcd 01/30 Kefzol 3 gm IVPB q8h started 01/28, dcd 01/31 Is there an additional diagnosis that is clinically appropriate for this patient? [ x] Sepsis, present on admission [ ] No additional diagnosis [ ] Other, please specify [ ] Unable to determine MTDD
== END 2024-02-01 13:32 | disposition home or self-care (01) | DRG 871 ==
LOC: EC 17:42 → 3SCARD 23:35
PROVIDERS: ADMIT Internal Medicine; ATTEND Internal Medicine
DX: A41.9 Sepsis, unspecified organism (principal); G93.41 Metabolic encephalopathy; I50.23 Acute on chronic systolic (congestive) heart failure; L03.116 Cellulitis of left lower limb; I13.0 Hypertensive heart and chronic kidney disease with heart failure and stage 1 through stage 4 chronic kidney disease, or unspecified chronic kidney disease; E87.20 Acidosis, unspecified; I42.8 Other cardiomyopathies; N17.9 Acute kidney failure, unspecified; I08.1 Rheumatic disorders of both mitral and tricuspid valves; I25.2 Old myocardial infarction; I27.20 Pulmonary hypertension, unspecified; Z11.52 Encounter for screening for COVID-19; Z28.311 Partially vaccinated for COVID-19; E11.22 Type 2 diabetes mellitus with diabetic chronic kidney disease; N18.30 Chronic kidney disease, stage 3 unspecified; D72.829 Elevated white blood cell count, unspecified; L97.529 Non-pressure chronic ulcer of other part of left foot with unspecified severity; E11.621 Type 2 diabetes mellitus with foot ulcer; G40.909 Epilepsy, unspecified, not intractable, without status epilepticus; J44.9 Chronic obstructive pulmonary disease, unspecified; Z89.611 Acquired absence of right leg above knee; Z89.432 Acquired absence of left foot; Z86.718 Personal history of other venous thrombosis and embolism; Z79.01 Long term (current) use of anticoagulants; Z95.0 Presence of cardiac pacemaker; Z84.1 Family history of disorders of kidney and ureter; Z82.49 Family history of ischemic heart disease and other diseases of the circulatory system; Z87.891 Personal history of nicotine dependence; Z87.01 Personal history of pneumonia (recurrent); Z88.1 Allergy status to other antibiotic agents; Z88.0 Allergy status to penicillin
CPT/HCPCS: 36415; 70450; 71046; 80048; 80053; 81003; 83036; 83605; 83880; 84484; 85025; 85610; 85652; 85730; 86140; 87040; 87636; 93005; 93306; 94640; 94760; 96365; 96366; 96367; 96375; 96376; 99285

== ENCOUNTER 2024-04-19 14:00 | Inpatient (IN) | payer MEDICARE ==
--- NOTE | 2024-04-19 14:34 | ED ---
Altered Mental Status HPI - General Chief Complaint: Altered Mental Status Stated Complaint: AMS Time Seen by Provider: 04/19/24 14:12 Source: patient, EMS, RN notes reviewed Mode of arrival: EMS - History of Present Illness Initial Comments: This is a 48-year-old female who presents from [facility] via EMS with complaints of altered mental status. Story was obtained from transfer in addition to documentation provided from rehabilitation center due to patient's mentation being altered. Patient was sent for evaluation due to being febrile, altered mental status, and history of cellulitis. Stated that patient has not been acting herself and has been altered. Additionally patient has a known history of lower extremity cellulitis of the left foot. 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 - Related Data Home Medications Medication Instructions Recorded Confirmed Insulin Glargine [Lantus Vial] 10 unit SQ DAILY@0800 04/30/19 04/19/24 Insulin Aspart [NovoLOG Flexpen] See Protocol SQ 05/07/23 04/19/24 ACHS@07,11,1630,2130 Lacosamide [Vimpat] 50 mg PO BID@0800,2100 01/29/24 04/19/24 Pantoprazole [Protonix] 40 mg PO DAILY@0600 01/29/24 04/19/24 Albuterol Nebulized [Ventolin 2.5 mg INHALATION RT-Q6H PRN 04/19/24 04/19/24 Nebulized] Apixaban [Eliquis] 5 mg PO BID@0800,1700 04/19/24 04/19/24 Budesonide [Pulmicort] 0.5 mg INHALATION RT-BID@08,17 04/19/24 04/19/24 Bumetanide [BUMEX] 1 mg PO BID@0800,1700 04/19/24 04/19/24 Doxycycline Hyclate 100 mg PO BID@0800,1700 04/19/24 04/19/24 Empagliflozin [Jardiance] 10 mg PO DAILY@0800 04/19/24 04/19/24 Folic Acid 1 mg PO DAILY@0800 04/19/24 04/19/24 Gabapentin [Neurontin] 100 mg PO DAILY@0800 04/19/24 04/19/24 Gabapentin [Neurontin] 200 mg PO HS@2100 04/19/24 04/19/24 HYDROcodone/APAP 5-325MG [[place] 1 tab PO Q6H PRN 04/19/24 04/19/24 5-325] Magnesium Hydroxide [Milk of 7,200 mg PO DAILY PRN 04/19/24 04/19/24 Magnesia Concentrate] Magnesium Oxide [Magox 400] 400 mg PO BID@0800,1700 04/19/24 04/19/24 Melatonin 4.5 mg PO HS 04/19/24 04/19/24 Multivitamins, Thera [Multivitamin 1 tab PO DAILY@1700 04/19/24 04/19/24 (formulary)] Na Phos,M-B/Na Phos,Di-Ba [Fleet 133 ml RECTAL DAILY PRN 04/19/24 04/19/24 Adult] Sacubitril/Valsartan [Entresto 49 1 tab PO BID@0800,1700 04/19/24 04/19/24 mg-51 mg Tablet] Spironolactone [Aldactone] 12.5 mg PO DAILY@0800 04/19/24 04/19/24 Thiamine [Vitamin B-1] 100 mg PO DAILY@0800 04/19/24 04/19/24 bisacodyL [Dulcolax] 10 mg RECTAL DAILY PRN 04/19/24 04/19/24 Previous Rx's Medication Instructions Recorded Acetaminophen Tab [Tylenol] 650 mg PO Q6HR PRN tab 05/13/23 Allergies Allergy/AdvReac Type Severity Reaction Status Date / Time Penicillins Allergy Rash/Hives Verified 04/19/24 14:49 vancomycin Allergy Rash/Hives Verified 04/19/24 14:49 ondansetron [From Zofran] AdvReac Nausea & Verified 04/19/24 14:49 Vomiting Review of Systems ROS Statement: Those systems with pertinent positive or pertinent negative responses have been documented in the HPI. ROS Other: All systems not noted in ROS Statement are negative. Past Medical History Past Medical History: Asthma, Heart Failure, COPD, CVA/TIA, Diabetes Mellitus, Hypertension, Myocardial Infarction ([place]), Pneumonia, Seizure Disorder, Seizure Disorder Additional Past Medical History / Comment(s): uses a wheelchair. Patient states last seizure summer 2019 while she was at [facility] Last Myocardial Infarction Date:: 06/2018 History of Any Multi-Drug Resistant Organisms: ESBL, VRE, VRE Date of last positivie culture/infection: 12/18/20 ESBL E.coli; 04/22/17 VRE MDRO Source:: ESBL Left foot; VRE Right Foot Past Surgical History: Adenoidectomy, AICD, Section, Heart Catheterization, Orthopedic Surgery, Pacemaker, Tonsillectomy Additional Past Surgical History / Comment(s): AICD - [employer]. has pacemaker defibrillator, right all toe amputated 04/2016, LT GREAT TOE then left foot partial amputation Past Anesthesia/Blood Transfusion Reactions: Postoperative Nausea & Vomiting (PONV) Type of Cardiac Device: Biventricular Pacemaker, Permanent Pacemaker, AICD Device Placement Date:: 2011 Past Psychological History: Bipolar Smoking Status: Former smoker Past Alcohol Use History: None Reported Past Drug Use History: Marijuana - Past Family History Mother Family Medical History: Deep Vein Thrombosis (DVT) Additional Family Medical History / Comment(s): Some type of heart problems, kidney failure. Father History Unknown: Yes Family Medical History: Unable to Obtain Additional Family Medical History / Comment(s): Patient denies knowing any medical history on her father. General Exam Limitations: altered mental status General appearance: alert, in no apparent distress Head exam: Present: atraumatic, normocephalic, normal inspection Eye exam: Present: normal appearance, PERRL, EOMI. Absent: scleral icterus, conjunctival injection, periorbital swelling ENT exam: Present: normal exam, mucous membranes moist Neck exam: Present: normal inspection. Absent: tenderness, meningismus, lym phadenopathy Respiratory exam: Present: normal lung sounds bilaterally. Absent: respiratory distress, wheezes, rales, rhonchi, stridor Cardiovascular Exam: Present: tachycardia, irregular rhythm GI/Abdominal exam: Present: soft, normal bowel sounds. Absent: distended, tenderness, guarding, rebound, rigid Right Knee exam: Present: deformity (Below the knee amputation) Left Foot/Toe exam: Present: deformity (Partial amputation of the left foot, erythema and edema) Back exam: Present: normal inspection Neurological exam: Present: alert, altered. Absent: CN II-XII intact (Unable to assess due to patient not cooperating) Psychiatric exam: Present: normal mood Skin exam: Present: warm, dry, intact, normal color, other (see above description for lower extremity amputation and infection). Absent: rash Course Vital Signs 04/19/24 04/19/24 14:01 16:30 Temperature 99.6 F 100.4 F H Pulse Rate 129 H Respiratory 18 Rate Blood Pressure 108/61 O2 Sat by Pulse 94 L Oximetry Medical Decision Making - Medical Decision Making Was pt. sent in by a medical professional or institution (, [facility], MENTAL HEALTH PRACTITIONER, urgent care, hospital, or care home...) When possible be specific @ -No Did you speak to anyone other than the patient for history (EMS, parent, family, police, friend...)? What history was obtained from this source @ -No Did you review nursing and triage notes (agree or disagree)? Why? @ -I reviewed and agree with nursing and triage notes Were old charts reviewed (outside hosp., previous admission, EMS record, old EKG, old radiological studies, urgent care reports/EKG's, care home records)? Report findings @ -Reviewed patient's previous admission no source she has a history of send metabolic encephalopathy Differential Diagnosis (chest pain, altered mental status, abdominal pain women, abdominal pain men, vaginal bleeding, weakness, fever, dyspnea, syncope, headache, dizziness, GI bleed, back pain, seizure, CVA, palpatations, mental health, musculoskeletal)? @Differential Altered Mental Status: Hypoglycemia, DKA, hypercapnia, ETOH, overdose, CO poisoning, trauma, myxedema coma, HTN encephalopathy, infection, encephalitis, psychosis, intercranial hemorrhage, hepatic encephalopathy, meningitis, CVA, this is not meant to be an all-inclusive list EKG interpreted by me (3pts min.). @ -Completed at 1456, ventricular pacemaker, ventricular rate 124, parable 139. No acute signs of ischemia. X-rays interpreted by me (1pt min.). @ -None done CT interpreted by me (1pt min.). @ -None done U/S interpreted by me (1pt. min.). @ -None done What testing was considered but not performed or refused? (CT, X-rays, U/S, labs)? Why? @ -None What meds were considered but not given or refused? Why? @ -None Did you discuss the management of the patient with other professionals (professionals i.e. Dr., PA, MENTAL HEALTH PRACTITIONER, lab, RT, psych nurse, social director, prick stitcher, teacher, grants officer, counseling case manager)? Give summary @ -Spoke with the internal medicine team Dr. Tucker, in regard to patient admitting due to meeting sepsis criteria and no source of infection from cellulitis of lower extremity. Patient was started on a liter fluid bolus in addition to the antibiotics. Was smoking cessation discussed for >3mins.? @ -No Was critical care preformed (if so, how long)? @ -No Were there social determinants of health that impacted care today? How? (Homelessness, low income, unemployed, alcoholism, drug addiction, transportation, low edu. Level, literacy, decrease access to med. care, fdc, rehab)? @ -No Was there de-escalation of care discussed even if they declined (Discuss DNR or withdrawal of care, Hospice)? DNR status @ -No What co-morbidities impacted this encounter? (DM, HTN, Smoking, COPD, CAD, Cancer, CVA, ARF, Chemo, Hep., AIDS, mental health diagnosis, sleep apnea, morbid obesity)? @ -None Was patient admitted / discharged? Hospital course, mention meds given and route, prescriptions, significant lab abnormalities, going to OR and other pertinent info. @ -Admitted. 48-year-old female with altered mental status and fevers. Complete review of systems unable to be obtained due to patient having altered mental sta tus. There is no signs infection from the patient's left lower extremity cellulitis. Patient be sepsis criteria with findings of an elevated heart rate, febrile, and elevated white blood cell count. Patient will be admitted to internal medicine and started on IV antibiotics and fluids. Undiagnosed new problem with uncertain prognosis? @ -No Drug Therapy requiring intensive monitoring for toxicity (Heparin, Nitro, Insulin, Cardizem)? @ -No Were any procedures done? @ -No Diagnosis/symptom? @ -Cellulitis Acute, or Chronic, or Acute on Chronic? @ -acute Uncomplicated (without systemic symptoms) or Complicated (systemic symptoms)? @ -complicated Side effects of treatment? @ -No Exacerbation, Progression, or Severe Exacerbation? @ -No Poses a threat to life or bodily function? How? (Chest pain, USA, OR, pneumonia, PE, COPD, DKA, ARF, appy, cholecystitis, CVA, Diverticulitis, Homicidal, Lynda cidal, threat to staff... and all critical care pts) @ -Untreated bacteremia can result in multiorgan system dysfunction and possible failure. - Lab Data Result diagrams: 04/19/24 15:48 04/19/24 15:48 Lab Results 04/19/24 04/19/24 04/19/24 Range/Units 15:48 15:48 15:48 WBC 12.7 H (3.8-10.6) k/uL RBC 5.25 (3.80-5.40) m/uL Hgb 12.8 (11.4-16.0) gm/dL Hct 42.3 (34.0-46.0) % MCV 80.6 (80.0-100.0) fL MCH 24.4 L (25.0-35.0) pg MCHC 30.3 L (31.0-37.0) g/dL RDW 19.9 H (11.5-15.5) % Plt Count 176 (150-450) k/uL MPV 8.3 Neutrophils % 84 % Lymphocytes % 8 % Monocytes % 5 % Eosinophils % 1 % Basophils % 0 % Neutrophils # 10.7 H (1.3-7.7) k/uL Lymphocytes # 1.1 (1.0-4.8) k/uL Monocytes # 0.6 (0-1.0) k/uL Eosinophils # 0.1 (0-0.7) k/uL Basophils # 0.0 (0-0.2) k/uL Hypochromasia Moderate Anisocytosis Slight Microcytosis Slight Sodium 141 (137-145) mmol/L Potassium 3.5 (3.5-5.1) mmol/L Chloride 107 (98-107) mmol/L Carbon Dioxide 24 (22-30) mmol/L Anion Gap 10 mmol/L BUN 28 H (7-17) mg/dL Creatinine 1.00 (0.52-1.04) mg/dL Est GFR (CKD-EPI)AfAm 76 (>60 ml/min/1.73 sqM) Est GFR (CKD-EPI)NonAf 66 (>60 ml/min/1.73 sqM) Glucose 122 H (74-99) mg/dL Calcium 8.8 (8.4-10.2) mg/dL Magnesium 1.6 (1.6-2.3) mg/dL Total Bilirubin 1.7 H (0.2-1.3) mg/dL AST 47 H (14-36) U/L ALT 65 H (4-34) U/L Alkaline Phosphatase 148 H (38-126) U/L Troponin I 0.033 (0.000-0.034) ng/mL Total Protein 7.3 (6.3-8.2) g/dL Albumin 3.9 (3.5-5.0) g/dL Disposition Clinical Impression: Cellulitis, Altered mental status Disposition: ADMITTED IP TO THIS [facility] Condition: Good Decision to Admit Reason: Admit from EC Decision Date: 04/19/24 Decision Time: 16:22
[2024-04-19 15:57] LABS: Anisocytosis Slight; Basophils % (A) 0 %; Eosinophils # (A) 0.1 k/uL (0-0.7); Eosinophils % (A) 1 %; HCT 42.3 % (34.0-46.0); HGB 12.8 gm/dL (11.4-16.0); Hypochromasia Moderate; Lymphocytes # (A) 1.1 k/uL (1.0-4.8); Lymphocytes % (A) 8 %; MCH 24.4 pg (25.0-35.0); MCHC 30.3 g/dL (31.0-37.0); MCV 80.6 fL (80.0-100.0); Mean Platelet Volume 8.3; Microcytosis Slight; Monocytes # (A) 0.6 k/uL (0-1.0); Monocytes % (A) 5 %; Neutrophils # (A) 10.7 k/uL (1.3-7.7); Neutrophils % (A) 84 %; Platelet Count 176 k/uL (150-450); RBC 5.25 m/uL (3.80-5.40); RDW 19.9 % (11.5-15.5); WBC 12.7 k/uL (3.8-10.6)
--- NOTE | 2024-04-19 16:00 | XR ---
EXAMINATION TYPE: XR chest 2V DATE OF EXAM: 04/19/2024 COMPARISON: 01/28/2024 HISTORY: Acute mental status change and fever TECHNIQUE: Frontal and lateral views of the chest are obtained. FINDINGS: There is a defibrillator device. There is moderate cardiomegaly and moderate pulmonary vascular conge stion. There is no airspace consolidation. There is no pleural effusion or pneumothorax. The osseous structures are intact. IMPRESSION: Acute cardiopulmonary disease most consistent with mild CHF.
[2024-04-19 16:06] LABS: ALT 65 U/L (4-34); AST 47 U/L (14-36); African American GFR (CKD) 76 (>60 ml/min/1.73 sqM); Albumin 3.9 g/dL (3.5-5.0); Alkaline Phosphatase 148 U/L (38-126); Anion Gap 10 mmol/L; Blood Urea Nitrogen 28 mg/dL (7-17); Calcium 8.8 mg/dL (8.4-10.2); Carbon Dioxide 24 mmol/L (22-30); Chloride 107 mmol/L (98-107); Glucose 122 mg/dL (74-99); Magnesium 1.6 mg/dL (1.6-2.3); Non-African American GFR(CKD) 66 (>60 ml/min/1.73 sqM); Potassium 3.5 mmol/L (3.5-5.1); Sodium 141 mmol/L (137-145); Total Bilirubin 1.7 mg/dL (0.2-1.3); Total Protein 7.3 g/dL (6.3-8.2)
[2024-04-19] MEDS ORDERED: NALOXONE 0.4 MG/ML 1 ML VIAL IV PRN (16:22)
[2024-04-19 16:45] LABS: Appearance,Urine Clear (Clear); Bilirubin,Urine Negative (Negative); Blood,Urine Small (Negative); Color,Urine Yellow; Glucose,Urine (UA) 4+ (Negative); Ketones,Urine 1+ (Negative); Leukocyte Esterase,Urine Negative (Negative); Nitrite,Urine Negative (Negative); Protein,Urine 1+ (Negative); RBC,Urine 4 /hpf (0-5); Specific Gravity,Urine 1.012 (1.001-1.035); Squamous Epithelial Cell,Urine <1 /hpf (0-4); WBC,Urine 1 /hpf (0-5)
[2024-04-19] MEDS: ACETAMINOPHEN TAB 500 MG TAB PO STA (16:50)
[2024-04-19] MEDS: SODIUM CHLORIDE 0.9% 1,000 ML IV STA (16:52)
[2024-04-19] MEDS: LEVOFLOXACIN 250MG-D5W PMX 250 MG in DEXTROSE/WATER 1 50ML.BAG IVPB STA (17:29)
[2024-04-19] MEDS ORDERED: DEXTROSE 50% SYRINGE 50 ML IVP PRN ×2 (23:22)
[2024-04-20 06:09] LABS: Glucose,Whole Blood 94 mg/dL (70-110)
[2024-04-20] MEDS: INSULIN ASPART (NovoLOG) 100 UNIT/ML VIAL SQ SCH (06:09)
[2024-04-20] MEDS: PANTOPRAZOLE 40 MG TABLET PO SCH (06:13)
--- NOTE | 2024-04-20 08:00 | CT ---
EXAM: CT Head Without Intravenous Contrast CLINICAL HISTORY: ITS.REASON CT Reason: AMS, Clonus TECHNIQUE: Axial computed tomography images of the head/brain without intravenous contrast. CTDI is 49.1 mGy and DLP is 1134 mGy-cm. This CT exam was performed using one or more of the following dose reduction techniques: automated exposure control, adjustment of the mA and/or kV according to patient size, and/or use of iterative reconstruction technique. COMPARISON: No relevant prior studies available. FINDINGS: Brain: No acute intracranial abnormality. Consider MRI if there is further concern. There are a few areas of decreased attenuation in the deep cerebral white matter consistent with mild small vessel ischemic/degenerative changes. The cerebral and cerebellar sulci are mildly prominent consistent with mild brain atrophy. No hemorrhage. Ventricles: Unremarkable. No ventriculomegaly. Bones/joints: Unremarkable. No acute fracture. Soft tissues: Unremarkable. Vasculature: Atherosclerotic disease. Sinuses: Unremarkable as visualized. Mastoid air cells: Unremarkable as visualized. No mastoid effusion. IMPRESSION: No acute intracranial abnormality. Consider MRI if there is further concern.
[2024-04-20] MEDS ORDERED: MAGNESIUM HYDROXIDE 2,400 MG/30 ML CUP PO PRN (09:00)
[2024-04-20] MEDS ORDERED: NA PHOS,M-B/NA PHOS,DI-BA 133 ML ENEMA RECTAL PRN (09:00)
[2024-04-20] MEDS: BUDESONIDE 0.5 MG/2 ML NEBU INHALATION SCH (09:18)
[2024-04-20] MEDS: ALBUTEROL NEBULIZED 2.5 MG/3 ML INHALATION PRN (09:18)
[2024-04-20] MEDS: INSULIN DETEMIR (LEVEMIR) 100 UNIT/ML SYR SQ SCH (09:42)
[2024-04-20] MEDS: BUMETANIDE 1 MG TAB PO SCH (09:49)
[2024-04-20] MEDS: SACUBITRIL/VALSARTAN 49 MG-51 MG TABLET PO SCH (09:49)
[2024-04-20] MEDS: LACOSAMIDE 50 MG TABLET PO SCH (09:49)
[2024-04-20] MEDS: APIXABAN 5 MG TAB PO SCH (09:49)
[2024-04-20] MEDS: SPIRONOLACTONE 25 MG TAB PO SCH (09:50)
[2024-04-20] MEDS: FOLIC ACID 1 MG TAB PO SCH (09:51)
[2024-04-20] MEDS: DAPAGLIFLOZIN PROPANEDIOL 5 MG TABLET PO SCH (09:51)
[2024-04-20] MEDS: GABAPENTIN 100 MG CAP PO SCH (09:51)
[2024-04-20] MEDS: THIAMINE 100 MG TAB PO SCH (09:51)
[2024-04-20] MEDS: MAGNESIUM OXIDE 400 MG TAB PO SCH (09:51)
[2024-04-20] MEDS: HYDROPHILIC CREAM 180 GM TUBE TOPICAL SCH (09:52)
[2024-04-20 10:31] LABS: Basophils # (A) 0.04 X 10*3/uL (0.00-0.10); Basophils % (A) 0.3 %; Eosinophils # (A) 0.08 X 10*3/uL (0.04-0.35); Eosinophils % (A) 0.6 %; HGB 12.8 g/dL (12.0-15.0); Lymphocytes # (A) 0.97 X 10*3/uL (0.90-5.00); Lymphocytes % (A) 7.9 %; MCH 24.6 pg (27.0-32.0); MCHC 29.8 g/dL (32.0-37.0); MCV 82.7 FL (80.0-97.0); Mean Platelet Volume 12.9 FL (9.5-12.2); Monocytes # (A) 1.18 X 10*3/uL (0.20-1.00); Monocytes % (A) 9.6 %; NRBC Per 100 WBC 0 X 10*3/uL (0.00-0.01); Neutrophils # (A) 9.99 X 10*3/uL (1.80-7.70); Neutrophils % (A) 81.2 %; Platelet Count 183 X 10*3/uL (140-440); WBC 12.31 X 10*3/uL (4.50-10.00)
[2024-04-20 11:26] LABS: ALT 62 U/L (8-44); AST 47 U/L (13-35); Albumin/Globulin Ratio 1.14 Ratio (1.60-3.17); Alkaline Phosphatase 139 U/L (41-126); BUN/Creat Ratio 19.42 Ratio (12.00-20.00); Blood Urea Nitrogen 23.3 mg/dL (9.0-27.0); Calcium 9.2 mg/dL (8.7-10.3); Carbon Dioxide 20.2 mmol/L (21.6-31.8); Chloride 104 mmol/L (96-109); Globulin 3.5 g/dL (1.6-3.3); Glucose 100 mg/dL (70-110); Potassium 4.1 mmol/L (3.5-5.5); Sodium 142 mmol/L (135-145); Total Bilirubin 1.5 mg/dL (0.3-1.2); Total Protein 7.5 g/dL (6.2-8.2)
[2024-04-20 12:11] LABS: Glucose,Whole Blood 97 mg/dL (70-110)
[2024-04-20] MEDS: CEFEPIME 2 GM in SODIUM CHLORIDE 0.9% 100 ML IVPB SCH (12:41)
[2024-04-20 17:10] LABS: Glucose,Whole Blood 120 mg/dL (70-110)
[2024-04-20] MEDS: MULTIVITAMINS, THERA 1 EACH TAB PO SCH (17:43)
--- NOTE | 2024-04-20 18:41 | P.HPIM ---
History of Present Illness H&P Date: 04/20/24 Chief Complaint: Altered mental status 48-year-old female who presents from [facility] via EMS with complaints of altered mental status. Story was obtained from transfer in addition to documentation provided from rehabilitation center due to patient's mentation being altered. Patient was sent for evaluation due to being febrile, altered mental status, and history of cellulitis. Stated that patient has not been acting herself and has been altered. Additionally patient has a known history of lower extremity cellulitis of the left foot. 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 Review of Systems ROS unobtainable: due to mental status Past Medical History Past Medical History: Asthma, Heart Failure, COPD, CVA/TIA, Diabetes Mellitus, Deep Vein Thrombosis (DVT), Hypertension, Myocardial Infarction ([place]), Pneumonia, Seizure Disorder, Seizure Disorder Additional Past Medical History / Comment(s): uses a wheelchair. Patient 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 has pacemaker defibrillator, right all toe amputated 04/2016, R BKA 2019, LT GREAT TOE then left foot partial amputation, cardiac cath 2022 Past Anesthesia/Blood Transfusion Reactions: Postoperative Nausea & Vomiting (PONV) Type of Cardiac Device: Biventricular Pacemaker, Permanent Pacemaker, AICD Device Placement Date:: 2011 Past Psychological History: Bipolar Additional Psychological History / Comment(s): She is wheelchair bound/transfers self. She has a glucometer and nebulizer. Smoking Status: Former smoker Past Alcohol Use History: None Reported Additional Past Alcohol Use History / Comment(s): quit 2017 Past Drug Use History: Marijuana Additional Drug Use History / Comment(s): Pt smokes marijuana at for a sleep aide or for pain control - Past Family History Mother Family Medical History: Unable to Obtain, Deep Vein Thrombosis (DVT) Additional Family Medical History / Comment(s): Some type of heart problems, kidney failure. Father History Unknown: Yes Family Medical History: Unable to Obtain Additional Family Medical History / Comment(s): Patient denies knowing any medical history on her father. Medications and Allergies Home Medications Medication Instructions Recorded Confirmed Type Insulin Glargine [Lantus Vial] 10 unit SQ DAILY@0800 04/30/19 04/19/24 History Insulin Aspart [NovoLOG Flexpen] See Protocol SQ 05/07/23 04/19/24 History ACHS@07,11,1630,2130 Acetaminophen Tab [Tylenol] 650 mg PO Q6HR PRN tab 05/13/23 04/19/24 Rx Lacosamide [Vimpat] 50 mg PO BID@0800,2100 01/29/24 04/19/24 History Pantoprazole [Protonix] 40 mg PO DAILY@0600 01/29/24 04/19/24 History Albuterol Nebulized [Ventolin 2.5 mg INHALATION RT-Q6H PRN 04/19/24 04/19/24 History Nebulized] Apixaban [Eliquis] 5 mg PO BID@0800,1700 04/19/24 04/19/24 History Budesonide [Pulmicort] 0.5 mg INHALATION RT-BID@08,17 04/19/24 04/19/24 History Bumetanide [BUMEX] 1 mg PO BID@0800,1700 04/19/24 04/19/24 History Doxycycline Hyclate 100 mg PO BID@0800,1700 04/19/24 04/19/24 History Empagliflozin [Jardiance] 10 mg PO DAILY@0800 04/19/24 04/19/24 History Folic Acid 1 mg PO DAILY@0800 04/19/24 04/19/24 History Gabapentin [Neurontin] 100 mg PO DAILY@0800 04/19/24 04/19/24 History Gabapentin [Neurontin] 200 mg PO HS@2100 04/19/24 04/19/24 History HYDROcodone/APAP 5-325MG [[place] 1 tab PO Q6H PRN 04/19/24 04/19/24 History 5-325] Magnesium Hydroxide [Milk of 7,200 mg PO DAILY PRN 04/19/24 04/19/24 History Magnesia Concentrate] Magnesium Oxide [Magox 400] 400 mg PO BID@0800,1700 04/19/24 04/19/24 History Melatonin 4.5 mg PO HS 04/19/24 04/19/24 History Multivitamins, Thera [Multivitamin 1 tab PO DAILY@1700 04/19/24 04/19/24 History (formulary)] Na Phos,M-B/Na Phos,Di-Ba [Fleet 133 ml RECTAL DAILY PRN 04/19/24 04/19/24 History Adult] Sacubitril/Valsartan [Entresto 49 1 tab PO BID@0800,1700 04/19/24 04/19/24 History mg-51 mg Tablet] Spironolactone [Aldactone] 12.5 mg PO DAILY@0800 04/19/24 04/19/24 History Thiamine [Vitamin B-1] 100 mg PO DAILY@0800 04/19/24 04/19/24 History bisacodyL [Dulcolax] 10 mg RECTAL DAILY PRN 04/19/24 04/19/24 History Allergies Allergy/AdvReac Type Severity Reaction Status Date / Time Penicillins Allergy Rash/Hives Verified 04/19/24 14:49 vancomycin Allergy Rash/Hives Verified 04/19/24 14:49 ondansetron [From Zofran] AdvReac Nausea & Verified 04/19/24 14:49 Vomiting Physical Exam Vitals: Vital Signs Temp Pulse Pulse Resp BP BP Pulse Ox 04/20/24 09:33 108 H 04/20/24 09:18 104 H 04/20/24 07:41 99.1 F 106 H 18 127/82 96 04/20/24 02:00 99.0 F 104 H 20 115/71 95 04/19/24 22:52 98.7 F 108 H 18 113/73 97 04/19/24 21:30 108 H 04/19/24 21:07 104 H 20 111/70 95 04/19/24 19:00 99.5 F 105 H 16 107/67 96 04/19/24 16:30 100.4 F H 04/19/24 14:01 99.6 F 129 H 18 108/61 94 L Intake and Output 04/19/24 04/20/24 04/20/24 22:59 06:59 14:59 Other: Voiding Method Diaper Diaper # Voids 1 1 # Bowel Movements 1 4 Weight 115.212 kg Limitations: altered mental status General appearance: alert, in no apparent distress Head exam: Present: atraumatic, normocephalic, normal inspection Eye exam: Present: normal appearance, PERRL, EOMI. Absent: scleral icterus, conjunctival injection, periorbital swelling ENT exam: Present: normal exam, mucous membranes moist Neck exam: Present: normal inspection. Absent: tenderness, meningismus, lymphadenopathy Respiratory exam: Present: normal lung sounds bilaterally. Absent: respiratory distress, wheezes, rales, rhonchi, stridor Cardiovascular Exam: Present: tachycardia, irregular rhythm GI/Abdominal exam: Present: soft, normal bowel sounds. Absent: distended, tend erness, guarding, rebound, rigid Knee exam: Present: deformity (Below the knee amputation) left lower extremity Foot/Toe exam: Present: deformity (Partial amputation of the left foot, erythema and edema) Back exam: Present: normal inspection Neurological exam: Present: alert, altered. Absent: CN II-XII intact (Unable to assess due to patient not cooperating) Psychiatric exam: Present: normal mood Skin exam: Present: warm, dry, intact, normal color, other (see above description for lower extremity amputation and infection). Absent: rash Results CBC & Chem 7: 04/20/24 06:55 04/20/24 06:55 Labs: Abnormal Lab Results - Last 24 Hours (Table) 04/19/24 04/19/24 04/19/24 Range/Units 15:48 15:48 16:28 WBC 12.7 H (3.8-10.6) k/uL MCH 24.4 L (25.0-35.0) pg MCHC 30.3 L (31.0-37.0) g/dL RDW 19.9 H (11.5-15.5) % MPV (9.5-12.2) FL Immature Gran # (0.00-0.04) X 10*3/uL Neutrophils # 10.7 H (1.3-7.7) k/uL Monocytes # (0.20-1.00) X 10*3/uL Carbon Dioxide (21.6-31.8) mmol/L Anion Gap (4.00-12.00) mmol/L BUN 28 H (7-17) mg/dL Est GFR (CKD-EPI) (>=60) Glucose 122 H (74-99) mg/dL Hemoglobin A1c (<=6.0) % Total Bilirubin 1.7 H (0.2-1.3) mg/dL AST 47 H (14-36) U/L ALT 65 H (4-34) U/L Alkaline Phosphatase 148 H (38-126) U/L Globulin (1.6-3.3) g/dL Albumin/Globulin Ratio (1.60-3.17) Ratio Urine Protein 1+ H (Negative) Urine Glucose (UA) 4+ H (Negative) Urine Ketones 1+ H (Negative) Urine Blood Small H (Negative) 04/20/24 04/20/24 04/20/24 Range/Units 06:55 06:55 06:55 WBC 12.31 H (3.8-10.6) k/uL MCH 24.6 L (25.0-35.0) pg MCHC 29.8 L (31.0-37.0) g/dL RDW 22.0 H (11.5-15.5) % MPV 12.9 H (9.5-12.2) FL Immature Gran # 0.05 H (0.00-0.04) X 10*3/uL Neutrophils # 9.99 H (1.3-7.7) k/uL Monocytes # 1.18 H (0.20-1.00) X 10*3/uL Carbon Dioxide 20.2 L (21.6-31.8) mmol/L Anion Gap 17.80 H (4.00-12.00) mmol/L BUN (7-17) mg/dL Est GFR (CKD-EPI) 55 L (>=60) Glucose (74-99) mg/dL Hemoglobin A1c 7.5 H (<=6.0) % Total Bilirubin 1.5 H (0.2-1.3) mg/dL AST 47 H (14-36) U/L ALT 62 H (4-34) U/L Alkaline Phosphatase 139 H (38-126) U/L Globulin 3.5 H (1.6-3.3) g/dL Albumin/Globulin Ratio 1.14 L (1.60-3.17) Ratio Urine Protein (Negative) Urine Glucose (UA) (Negative) Urine Ketones (Negative) Urine Blood (Negative) Thrombosis Risk Factor Assmnt - Choose All That Apply Each Factor Represents 1 point: Age 41-60 years, Obesity (BMI >25), Sepsis (< 1month) Thrombosis Risk Factor Assessment Total Risk Factor Score: 3 Thrombosis Risk Factor Assessment Level: Moderate Risk Assessment and Plan Assessment: 1. Altered mental status; etiology unclear -- CT of the head completed in ED is negative for any acute intracranial abnormality -Patient remains significantly altered -We will order neurology consult 2. Cellulitis right lower extremity; patient is currently on IV Levaquin; we will monitor CBC, CRP and procalcitonin; ID to evaluate and make further recommendations 3. Mild YOLA; slow IV fluid hydration; will monitor strict JUVENCIO's, daily weights, renal function electrolytes 4. Hypertension; Entresto 49-51 mg 1 tablet twice daily; Aldactone 12.5 mg daily 5. Seizure disorder; Vimpat 50 mg twice daily 6. Diabetes mellitus; Farxiga 5 mg daily 7. COPD/asthma; not in exacerbation 8. CVA/TIA; patient is currently on Eliquis; not on any statin therapy DVT prophylaxis; Eliquis CODE STATUS; full code
[2024-04-20 20:04] LABS: Glucose,Whole Blood 114 mg/dL (70-110)
--- NOTE | 2024-04-20 23:39 | P.CONS ---
History of Present Illness - Reason for Consult Consult date: 04/20/24 Cellulitis Requesting physician: Latisha Tucker - Chief Complaint Mental status changes x 1 day - History of Present Illness Patient is a 48-year-old female with a past medical history significant for diabetes mellitus patient did have a history of diabetic foot infection requiring right below the knee amputation also have a chronic nonhealing wound on the plantar aspect of the left foot and history of recurrent cellulitis and admission to the hospital patient was brought into the hospital yesterday afternoon for evaluation of mental status changes patient has been sent to the ER from the rehabilitation center for evaluation of mentation being altered and not acting herself also noticed to have increasing swelling and redness to the left lower extremity patient on presentation to the hospital did have a fever 100.4 F patient is pleasantly confused however denies any headache nausea she is in the hospital no vomiting diarrhea any changes reported by the nursing staff patient currently not a very good historian because of mentation most information has been obtained from review of the chart patient did have a white count of 12.7 with a left shift creatinine has been 1.2 liver enzymes mildly elevated urine has been negative patient was admitted to the hospital infectious was consulted for further management of antibiotic therapy Review of Systems Positive points has been mentioned in HPI complete review could not be obtained because of his underlying mental status Past Medical History Past Medical History: Asthma, Heart Failure, COPD, CVA/TIA, Diabetes Mellitus, Deep Vein Thrombosis (DVT), Hypertension, Myocardial Infarction ([place]), Pneumonia, Seizure Disorder, Seizure Disorder Additional Past Medical History / Comment(s): uses a wheelchair. Patient states last seizure summer 2019 while she was at [facility]. cardiomyopathy sepsis hx Last Myocardial Infarction Date:: 06/2018 History of Any Multi-Drug Resistant Organisms: ESBL, VRE, VRE Year Discovered:: 12/18/20 ESBL E.coli; 04/22/17 VRE MDRO Source:: ESBL Left foot; VRE Right Foot Past Surgical History: Adenoidectomy, AICD, Section, Heart Catheterizat ion, Orthopedic Surgery, Pacemaker, Tonsillectomy Additional Past Surgical History / Comment(s): AICD - [employer]. has pacemaker defibrillator, right all toe amputated 04/2016, R BKA 2019, LT GREAT TOE then left foot partial amputation, cardiac cath 2022 Past Anesthesia/Blood Transfusion Reactions: Postoperative Nausea & Vomiting (PONV) Type of Cardiac Device: Biventricular Pacemaker, Permanent Pacemaker, AICD Device Placement Date:: 2011 Past Psychological History: Bipolar Additional Psychological History / Comment(s): She is wheelchair bound/transfers self. She has a glucometer and nebulizer. Smoking Status: Former smoker Past Alcohol Use History: None Reported Additional Past Alcohol Use History / Comment(s): quit 2017 Past Drug Use History: Marijuana Additional Drug Use History / Comment(s): Pt smokes marijuana at HS for a sleep aide or for pain control - Past Family History Mother Family Medical History: Unable to Obtain, Deep Vein Thrombosis (DVT) Additional Family Medical History / Comment(s): Some type of heart problems, kidney failure. Father History Unknown: Yes Family Medical History: Unable to Obtain Additional Family Medical History / Comment(s): Patient denies knowing any medical history on her father. Medications and Allergies Home Medications Medication Instructions Recorded Confirmed Type Insulin Glargine [Lantus Vial] 10 unit SQ DAILY@0800 04/30/19 04/19/24 History Insulin Aspart [NovoLOG Flexpen] See Protocol SQ 05/07/23 04/19/24 History ACHS@07,11,1630,2130 Acetaminophen Tab [Tylenol] 650 mg PO Q6HR PRN tab 05/13/23 04/19/24 Rx Pantoprazole [Protonix] 40 mg PO DAILY@0600 01/29/24 04/19/24 History Albuterol Nebulized [Ventolin 2.5 mg INHALATION RT-Q6H PRN 04/19/24 04/19/24 History Nebulized] Apixaban [Eliquis] 5 mg PO BID@0800,1700 04/19/24 04/19/24 History Budesonide [Pulmicort] 0.5 mg INHALATION RT-BID@08,17 04/19/24 04/19/24 History Bumetanide [BUMEX] 1 mg PO BID@0800,1700 04/19/24 04/19/24 History Empagliflozin [Jardiance] 10 mg PO DAILY@0800 04/19/24 04/19/24 History Folic Acid 1 mg PO DAILY@0800 04/19/24 04/19/24 History Magnesium Hydroxide [Milk of 7,200 mg PO DAILY PRN 04/19/24 04/19/24 History Magnesia Concentrate] Magnesium Oxide [Magox 400] 400 mg PO BID@0800,1700 04/19/24 04/19/24 History Melatonin 4.5 mg PO HS 04/19/24 04/19/24 History Multivitamins, Thera [Multivitamin 1 tab PO DAILY@1700 04/19/24 04/19/24 History (formulary)] Na Phos,M-B/Na Phos,Di-Ba [Fleet 133 ml RECTAL DAILY PRN 04/19/24 04/19/24 History Adult] Sacubitril/Valsartan [Entresto 49 1 tab PO BID@0800,1700 04/19/24 04/19/24 History mg-51 mg Tablet] Spironolactone [Aldactone] 12.5 mg PO DAILY@0800 04/19/24 04/19/24 History Thiamine [Vitamin B-1] 100 mg PO DAILY@0800 04/19/24 04/19/24 History bisacodyL [Dulcolax] 10 mg RECTAL DAILY PRN 04/19/24 04/19/24 History Cephalexin [Keflex] 500 mg PO Q8HR 7 Days #21 cap 04/24/24 Rx Gabapentin [Neurontin] 100 mg PO DAILY@0800 #2 cap 04/24/24 Rx Gabapentin [Neurontin] 200 mg PO HS@2100 #2 cap 04/24/24 Rx HYDROcodone/APAP 5-325MG [[place] 1 tab PO Q6H PRN #3 tab 04/24/24 Rx 5-325] Lacosamide [Vimpat] 100 mg PO BID@0800,2100 #8 tab 04/24/24 Rx Potassium Chloride ER [K-Dur 20] 20 meq PO Q1HR tab 04/24/24 Rx QUEtiapine [SEROquel] 12.5 mg PO HS tab 04/24/24 Rx Allergies Allergy/AdvReac Type Severity Reaction Status Date / Time Penicillins Allergy Rash/Hives Verified 04/19/24 14:49 vancomycin Allergy Rash/Hives Verified 04/19/24 14:49 ondansetron [From Zofran] AdvReac Nausea & Verified 04/19/24 14:49 Vomiting Physical Exam Vitals: Vital Signs Temp Pulse Pulse Resp BP BP Pulse Ox 04/20/24 09:33 108 H 04/20/24 09:18 104 H 04/20/24 07:41 99.1 F 106 H 18 127/82 96 04/20/24 02:00 99.0 F 104 H 20 115/71 95 04/19/24 22:52 98.7 F 108 H 18 113/73 97 04/19/24 21:30 108 H 04/19/24 21:07 104 H 20 111/70 95 04/19/24 19:00 99.5 F 105 H 16 107/67 96 04/19/24 16:30 100.4 F H 04/19/24 14:01 99.6 F 129 H 18 108/61 94 L Intake and Output 04/19/24 04/20/24 04/20/24 22:59 06:59 14:59 Other: Voiding Method Diaper Diaper # Voids 1 1 # Bowel Movements 1 4 Weight 115.212 kg GENERAL DESCRIPTION: Middle-aged female lying in bed, no distress. No tachypnea or accessory muscle of respiration use. HEENT: Shows Pallor , no scleral icterus. Oral mucous membrane is dry. No pharyngeal erythema or thrush NECK: Trachea central, no thyromegaly. LUNGS: Unlabored breathing. Clear to auscultation anteriorly. No wheeze or crackle. HEART: S1, S2, regular rate and rhythm. No loud murmur ABDOMEN: Soft, no tenderness , guarding or rigidity, no organomegaly EXTREMITIES: Left lower extremity with diffuse swelling redness warm to touch did have wound on the plantar aspect of the left foot but no purulent drainage SKIN: No rash, no masses palpable. NEUROLOGICAL: The patient is lethargic orientation could not be determined Results CBC & Chem 7: 04/24/24 04:40 04/24/24 04:40 Labs: Abnormal Lab Results - Last 24 Hours (Table) 04/19/24 04/19/24 04/19/24 Range/Units 15:48 15:48 16:28 WBC 12.7 H (3.8-10.6) k/uL MCH 24.4 L (25.0-35.0) pg MCHC 30.3 L (31.0-37.0) g/dL RDW 19.9 H (11.5-15.5) % MPV (9.5-12.2) [place] Immature Gran # (0.00-0.04) X 10*3/uL Neutrophils # 10.7 H (1.3-7.7) k/uL Monocytes # (0.20-1.00) X 10*3/uL Carbon Dioxide (21.6-31.8) mmol/L Anion Gap (4.00-12.00) mmol/L BUN 28 H (7-17) mg/dL Est GFR (CKD-EPI) (>=60) Glucose 122 H (74-99) mg/dL Total Bilirubin 1.7 H (0.2-1.3) mg/dL AST 47 H (14-36) U/L ALT 65 H (4-34) U/L Alkaline Phosphatase 148 H (38-126) U/L Globulin (1.6-3.3) g/dL Albumin/Globulin Ratio (1.60-3.17) Ratio Urine Protein 1+ H (Negative) Urine Glucose (UA) 4+ H (Negative) Urine Ketones 1+ H (Negative) Urine Blood Small H (Negative) 24 04/20/24 Range/Units 06:55 06:55 WBC 12.31 H (3.8-10.6) k/uL MCH 24.6 L (25.0-35.0) pg MCHC 29.8 L (31.0-37.0) g/dL RDW 22.0 H (11.5-15.5) % MPV 12.9 H (9.5-12.2) FL Immature Gran # 0.05 H (0.00-0.04) X 10*3/uL Neutrophils # 9.99 H (1.3-7.7) k/uL Monocytes # 1.18 H (0.20-1.00) X 10*3/uL Carbon Dioxide 20.2 L (21.6-31.8) mmol/L Anion Gap 17.80 H (4.00-12.00) mmol/L BUN (7-17) mg/dL Est GFR (CKD-EPI) 55 L (>=60) Glucose (74-99) mg/dL Total Bilirubin 1.5 H (0.2-1.3) mg/dL AST 47 H (14-36) U/L ALT 62 H (4-34) U/L Alkaline Phosphatase 139 H (38-126) U/L Globulin 3.5 H (1.6-3.3) g/dL Albumin/Globulin Ratio 1.14 L (1.60-3.17) Ratio Urine Protein (Negative) Urine Glucose (UA) (Negative) Urine Ketones (Negative) Urine Blood (Negative) Assessment and Plan (1) Allergy to multiple antibiotics Current Visit: No Status: Acute Code(s): Z88.1 - ALLERGY STATUS TO OTHER ANTIBIOTIC AGENTS SNOMED Code(s): 103800708 (2) Diabetic foot ulcer Current Visit: No Status: Acute Code(s): E11.621 - TYPE 2 DIABETES MELLITUS WITH FOOT ULCER; L97.509 - NON-PRESSURE CHRONIC ULCER OTH PRT UNSP FOOT W UNSP SEVERITY SNOMED Code(s): 664607355 (3) Left leg cellulitis Current Visit: No Status: Acute Code(s): L03.116 - CELLULITIS OF LEFT LOWER LIMB SNOMED Code(s): 96800819283881419 (4) Sepsis Current Visit: No Status: Acute Code(s): A41.9 - SEPSIS, UNSPECIFIED ORGANISM SNOMED Code(s): 32367892 Plan: 1patient presented to hospital with sepsis in this patient who did have a fever tachycardia elevated white count source likely left lower extremity cellulitis likely from gram-positive skin ra underlying gram-negative infection antibiotics currently patient also noticed to have elevated liver enzymes underlying hepatobiliary source not entirely excluded 2-patient with multiple antibiotic ALLERGIES that would limit the number of antibiotic safe to use 3-we will empirically start the patient cefepime 2 g every 8 hours while waiting for the workup to be completed 4-check ultrasound of the right upper quadrant for elevated liver enzymes We will follow on clinical condition and cultures to further adjust medication if needed Thank you for this consultation we will follow the patient along with you Dictation was produced using [employer] dictation software. please excuse any grammatical, word or spelling errors. Time with Patient: Greater than 30
[2024-04-21 06:09] LABS: Glucose,Whole Blood 97 mg/dL (70-110)
[2024-04-21 09:23] LABS: Blood Urea Nitrogen 22.9 mg/dL (9.0-27.0); Glucose 103 mg/dL (70-110)
[2024-04-21 09:24] LABS: Carbon Dioxide 21.2 mmol/L (21.6-31.8); Chloride 104 mmol/L (96-109); Potassium 3.6 mmol/L (3.5-5.5); Sodium 142 mmol/L (135-145)
--- NOTE | 2024-04-21 09:33 | US ---
EXAMINATION TYPE: US abdomen limited DATE OF EXAM: 04/21/2024 COMPARISON: NONE CLINICAL INDICATION: Female, 48 years old with history of Sepsis, elevated liver enzymes; elevated li ya enzymes exam limited due to body habitus. TECHNIQUE: Multiple sonographic images of the right upper quadrant are obtained. FINDINGS: EXAM MEASUREMENTS: Liver Length: 19.4 cm Gallbladder Wall: .3 cm CBD: .6 cm Right Kidney: 10.9 x 4.1 x 5.8 cm HAND OR MACHINE PASTER NOTES: Pancreas: Obscured by bowel gas Liver: Increased attenuation Gallbladder: No stones seen Evidence for sonographic Ortega's sign: No CBD: wnl Right Kidney: No hydronephrosis or masses seen IMPRESSION: 1. Hepatomegaly.
[2024-04-21 09:46] LABS: Basophils # (A) 0.04 X 10*3/uL (0.00-0.10); Basophils % (A) 0.4 %; Eosinophils # (A) 0.13 X 10*3/uL (0.04-0.35); Eosinophils % (A) 1.3 %; HCT 41.3 % (37.2-46.3); HGB 12.5 g/dL (12.0-15.0); Lymphocytes # (A) 0.24 X 10*3/uL (0.90-5.00); Lymphocytes % (A) 2.3 %; MCH 24.8 pg (27.0-32.0); MCHC 30.3 g/dL (32.0-37.0); MCV 81.8 FL (80.0-97.0); Monocytes # (A) 0.68 X 10*3/uL (0.20-1.00); Monocytes % (A) 6.6 %; NRBC Per 100 WBC 0 X 10*3/uL (0.00-0.01); Platelet Count 239 X 10*3/uL (140-440); RBC 5.05 X 10*6/uL (4.10-5.20); RBC Morphology Normal (Normal); RDW 21.7 % (11.5-14.5); WBC 10.33 X 10*3/uL (4.50-10.00)
[2024-04-21 11:59] LABS: Glucose,Whole Blood 86 mg/dL (70-110)
--- NOTE | 2024-04-21 13:16 | P.CNNES ---
History of Present Illness Consult date: 04/21/24 Requesting physician: Rolan Payton Reason for Consult: ams, hallucination, talking to self, excessive repetition of words. History of Present Illness: This is a 48-year-old woman presents to the emergency department from nursing facility via EMS because of altered mental status. History is obtained from medical records. Seems to the patient was sent for evaluation due to being febrile, altered mental status and history of cellulitis. The patient has known history of lower extremity cellulitis of the left foot and has below the knee amputation on the right lower extremity. Infection disease team is on board and they feel patient has cellulitis and they feel that is the cause of her elevated white blood cell tachycardia. They have have the patient on antibiotic. Upon seeing her patient was talking random stuff and she stating that she delivered 6 babies yesterday. She is unable to provide a history The patient has a history of atrial fibrillation she is on Eliquis. Patient is on Vimpat 50 mg twice daily for seizure. She is on Eliquis 5 mg twice daily. IT seems in 2019 she had an EEG and it is reported that possibly could have seizure and the patient was started on Keppra 500 mg twice daily. Please refer to Dr. Hernandez's note for further details. Seems the patient has an old stroke over the left thalamic History of blood clot and there is a questionable vegetation on [place] in 2019 but the blood cultures were negative and the repeat echo did not show any vegetation per the cardiology note on 09/18/2019 note. Seems the patient has history of idiopathic cardiomyopathy and she has ICD. Some of the work-up during this hospital visit consisted of: Her Tmax is 100.4F once during this hospital visit but has resolved and is afebrile. Initial wbc is 12.7K and most recent is 10.33K. Most recent glucose is 86 and that is POC. I reviewed the last of the lab workup. There is minimal elevation of AST and ALT Hemoglobin A1c 7.5 CT of the head is reported as no acute intracranial abnormality. I personally reviewed CT and felt there is some motion artifact but agree with report. Review of Systems Limited. Past Medical History Past Medical History: Asthma, Heart Failure, COPD, CVA/TIA, Diabetes Mellitus, Deep Vein Thrombosis (DVT), Hypertension, Myocardial Infarction ([place]), Pneumonia, Seizure Disorder, Seizure Disorder Additional Past Medical History / Comment(s): uses a wheelchair. Patient states last seizure summer 2019 while she was at [facility]. cardiomyopathy sepsis hx Last Myocardial Infarction Date:: 06/2018 History of Any Multi-Drug Resistant Organisms: ESBL, VRE, VRE Date of last positivie culture/infection: 12/18/20 ESBL E.coli; 04/22/17 VRE MDRO Source:: ESBL Left foot; VRE Right Foot Past Surgical History: Adenoidectomy, AICD, Section, Heart C atheterization, Orthopedic Surgery, Pacemaker, Tonsillectomy Additional Past Surgical History / Comment(s): AICD - [employer]. has pacemaker defibrillator, right all toe amputated 04/2016, R BKA 2019, LT GREAT TOE then left foot partial amputation, cardiac cath 2022 Past Anesthesia/Blood Transfusion Reactions: Postoperative Nausea & Vomiting (PONV) Type of Cardiac Device: Biventricular Pacemaker, Permanent Pacemaker, AICD Device Placement Date:: 2011 Past Psychological History: Bipolar Additional Psychological History / Comment(s): She is wheelchair bound/transfers self. She has a glucometer and nebulizer. Smoking Status: Former smoker Past Alcohol Use History: None Reported Additional Past Alcohol Use History / Comment(s): quit 2017 Past Drug Use History: Marijuana Additional Drug Use History / Comment(s): Pt smokes marijuana at for a sleep aide or for pain control - Past Family History Mother Family Medical History: Unable to Obtain, Deep Vein Thrombosis (DVT) Additional Family Medical History / Comment(s): Some type of heart problems, kidney failure. Father History Unknown: Yes Family Medical History: Unable to Obtain Additional Family Medical History / Comment(s): Patient denies knowing any medical history on her father. Medications and Allergies Home Medications Medication Instructions Recorded Confirmed Type Insulin Glargine [Lantus Vial] 10 unit SQ DAILY@0800 04/30/19 04/19/24 History Insulin Aspart [NovoLOG Flexpen] See Protocol SQ 05/07/23 04/19/24 History ACHS@07,11,1630,2130 Acetaminophen Tab [Tylenol] 650 mg PO Q6HR PRN tab 05/13/23 04/19/24 Rx Lacosamide [Vimpat] 50 mg PO BID@0800,2100 01/29/24 04/19/24 History Pantoprazole [Protonix] 40 mg PO DAILY@0600 01/29/24 04/19/24 History Albuterol Nebulized [Ventolin 2.5 mg INHALATION RT-Q6H PRN 04/19/24 04/19/24 History Nebulized] Apixaban [Eliquis] 5 mg PO BID@0800,1700 04/19/24 04/19/24 History Budesonide [Pulmicort] 0.5 mg INHALATION RT-BID@08,17 04/19/24 04/19/24 History Bumetanide [BUMEX] 1 mg PO BID@0800,1700 04/19/24 04/19/24 History Doxycycline Hyclate 100 mg PO BID@0800,1700 04/19/24 04/19/24 History Empagliflozin [Jardiance] 10 mg PO DAILY@0800 04/19/24 04/19/24 History Folic Acid 1 mg PO DAILY@0800 04/19/24 04/19/24 History Gabapentin [Neurontin] 100 mg PO DAILY@0800 04/19/24 04/19/24 History Gabapentin [Neurontin] 200 mg PO HS@2100 04/19/24 04/19/24 History HYDROcodone/APAP 5-325MG [[place] 1 tab PO Q6H PRN 04/19/24 04/19/24 History 5-325] Magnesium Hydroxide [Milk of 7,200 mg PO DAILY PRN 04/19/24 04/19/24 History Magnesia Concentrate] Magnesium Oxide [Magox 400] 400 mg PO BID@0800,1700 04/19/24 04/19/24 History Melatonin 4.5 mg PO HS 04/19/24 04/19/24 History Multivitamins, Thera [Multivitamin 1 tab PO DAILY@1700 04/19/24 04/19/24 History (formulary)] Na Phos,M-B/Na Phos,Di-Ba [Fleet 133 ml RECTAL DAILY PRN 04/19/24 04/19/24 H istory Adult] Sacubitril/Valsartan [Entresto 49 1 tab PO BID@0800,1700 04/19/24 04/19/24 Hist ory mg-51 mg Tablet] Spironolactone [Aldactone] 12.5 mg PO DAILY@0800 04/19/24 04/19/24 History Thiamine [Vitamin B-1] 100 mg PO DAILY@0800 04/19/24 04/19/24 History bisacodyL [Dulcolax] 10 mg RECTAL DAILY PRN 04/19/24 04/19/24 History Allergies Allergy/AdvReac Type Severity Reaction Status Date / Time Penicillins Allergy Rash/Hives Verified 04/19/24 14:49 vancomycin Allergy Rash/Hives Verified 04/19/24 14:49 ondansetron [From Zofran] AdvReac Nausea & Verified 04/19/24 14:49 Vomiting Physical Examination - Vital Signs Vital Signs: Vital Signs Temp Pulse Pulse Resp BP Pulse Ox 04/21/24 08:47 104 H 04/21/24 08:37 100 04/21/24 08:30 104 H 17 04/21/24 07:10 98.1 F 104 H 17 117/72 96 04/21/24 01:33 98.2 F 97 15 111/71 96 04/20/24 21:27 102 H 04/20/24 21:17 102 H 04/20/24 19:49 98.4 F 93 14 121/75 97 04/20/24 15:04 98.1 F 104 H 17 144/87 96 Intake and Output 04/20/24 04/21/24 04/21/24 22:59 06:59 14:59 Intake Total 200 Output Total 600 Balance 200 -600 Intake: Oral 200 Output: Urine 600 Other: Voiding Method Diaper External Catheter # Voids 2 1 General: Lying in bed and does not appear in acute distress. HENT: Supple neck. Neuro: Limited. Patient is confused. But is oriented to self and correctly stated the year and month (for month it took few tries). She is able to follow some simple commands (sticking tongue out, showing a thumbs up). Speech is very off. Pupils are round, right is 4mm, left is 3mm and reactive to light. Is tracking. No facial weakness. No dysarthria. Motor: Is hard to assess individual muscle strength. Is lifting all extremities above gravity and appears equal. Has below right knee amputation. Results - Laboratory Findings CBC and BMP: 04/21/24 06:22 04/21/24 06:22 Abnormal Lab Findings: Abnormal Labs 05/04/19/24 04/19/24 15:48 15:48 16:28 WBC 12.7 H MCH 24.4 L MCHC 30.3 L RDW 19.9 H MPV Immature Gran # Neutrophils # 10.7 H Lymphocytes # Monocytes # Carbon Dioxide Anion Gap BUN 28 H Est GFR (CKD-EPI) BUN/Creatinine Ratio Glucose 122 H POC Glucose (mg/dL) Hemoglobin A1c Total Bilirubin 1.7 H AST 47 H ALT 65 H Alkaline Phosphatase 148 H Globulin Albumin/Globulin Ratio Urine Protein 1+ H Urine Glucose (UA) 4+ H Urine Ketones 1+ H Urine Blood Small H 04/20/24 04/20/24 04/20/24 06:55 06:55 06:55 WBC 12.31 H MCH 24.6 L MCHC 29.8 L RDW 22.0 H MPV 12.9 H Immature Gran # 0.05 H Neutrophils # 9.99 H Lymphocytes # Monocytes # 1.18 H Carbon Dioxide 20.2 L Anion Gap 17.80 H BUN Est GFR (CKD-EPI) 55 L BUN/Creatinine Ratio Glucose POC Glucose (mg/dL) Hemoglobin A1c 7.5 H Total Bilirubin 1.5 H AST 47 H ALT 62 H Alkaline Phosphatase 139 H Globulin 3.5 H Albumin/Globulin Ratio 1.14 L Urine Protein Urine Glucose (UA) Urine Ketones Urine Blood 04/20/24 04/20/24 04/21/24 17:05 20:02 06:22 WBC 10.33 H MCH 24.8 L MCHC 30.3 L RDW 21.7 H MPV Immature Gran # Neutrophils # 9.20 H Lymphocytes # 0.24 L Monocytes # Carbon Dioxide Anion Gap BUN Est GFR (CKD-EPI) BUN/Creatinine Ratio Glucose POC Glucose (mg/dL) 120 H 114 H Hemoglobin A1c Total Bilirubin AST ALT Alkaline Phosphatase Globulin Albumin/Globulin Ratio Urine Protein Urine Glucose (UA) Urine Ketones Urine Blood 04/21/24 06:22 WBC MCH MCHC RDW MPV Immature Gran # Neutrophils # Lymphocytes # Monocytes # Carbon Dioxide 21.2 L Anion Gap 16.80 H BUN Est GFR (CKD-EPI) BUN/Creatinine Ratio 22.90 H Glucose POC Glucose (mg/dL) Hemoglobin A1c Total Bilirubin AST ALT Alkaline Phosphatase Globulin Albumin/Globulin Ratio Urine Protein Urine Glucose (UA) Urine Ketones Urine Blood Assessment and Plan Assessment: This is a 48-year-old woman who was sent from her nursing facility because of confusion, slight elevated fever and had elevated white blood cell. ID is on board and they felt the patient has cellulitis. Patient is here multiple times in our facility. Encephalopathy and seems more septic and there is a concern is due to cellulitis. CT head is unremarkable for acute process. Acute on chronic left lower extremity cellulitis History of seizure History of left thalamic infarct Diabetes mellitus Below the right knee amputation due to chronic nonhealing wound Recurrent left lower extremity cellulitis Atrial fibrillation on Eliquis History of DVT Known idiopathic cardiomyopathy status post ICD Patient had questionable vegetation on [place] but subsequent cultures were negative and the repeat echo did not show vegetation per cardiology note August 2019. Plan: I ordered MRI but since the patient has ICD will cancel since it since likely not MRI compatible. I ordered a routine EEG Ordered TSH, vitamin B12, folate, ammonia level. Patient is on Vimpat home medication 50 mg twice daily ID team is on board and they feel the patient has acute cellulitis. I spoke with the nurse practitioner regarding consideration of a lumbar puncture but they stated they need from their side since they feel this is acute cellulitis If Does not show any improvements we will pursue with a lumbar puncture. Blood cultures are ordered Will defer the rest of the medical management the primary and other specialist I discussed with the patient's nurse and the nurse practitioner from ID team Thank for the consultation Time with Patient: Greater than 30
[2024-04-21 16:43] LABS: Glucose,Whole Blood 87 mg/dL (70-110)
[2024-04-21] MEDS: ACETAMINOPHEN TAB 325 MG TAB PO PRN (17:22)
--- NOTE | 2024-04-21 18:01 | P.PN ---
Subjective Progress Note Date: 04/21/24 48-year-old female who presents from [facility] via EMS with complaints of altered mental status. Story was obtained from transfer in addition to documentation provided from rehabilitation center due to patient's mentation being altered. Patient was sent for evaluation due to being febrile, altered mental status, and history of cellulitis. Stated that patient has not been acting herself and has been altered. Additionally patient has a known history of lower extremity cellulitis of the left foot. 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 --Patient has been evaluated by neurology regarding altered mental status; MRI was recommended to be completed with canceled due to patient having an ICD which is marked compatible with MRI; EEG is ordered; neurology recommended blood work including TSH, vitamin B12, folate and ammonia levels Patient remains on Vimpat 50 mg twice daily - Objective - Vital Signs Vital signs: Vital Signs Temp 98.1 F 04/21/24 07:10 Pulse 104 H 04/21/24 08:47 Resp 17 04/21/24 08:30 BP 117/72 04/21/24 07:10 Pulse Ox 96 04/21/24 07:10 FiO2 Intake & Output 04/20/24 04/21/24 04/21/24 18:59 06:59 18:59 Intake Total 200 Output Total 600 Balance 200 -600 Intake: Oral 200 Output: Urine 600 Other: Voiding Method Diaper Diaper External Catheter # Voids 2 1 # Bowel Movements 1 - Exam General appearance: alert, in no apparent distress Head exam: Present: atraumatic, normocephalic, normal inspection Eye exam: Present: normal appearance, PERRL, EOMI. Absent: scleral icterus, conjunctival injection, periorbital swelling ENT exam: Present: normal exam, mucous membranes moist Neck exam: Present: normal inspection. Absent: tenderness, meningismus, lymphadenopathy Respiratory exam: Present: normal lung sounds bilaterally. Absent: respiratory distress, wheezes, rales, rhonchi, stridor Cardiovascular Exam: Present: tachycardia, irregular rhythm GI/Abdominal exam: Present: soft, normal bowel sounds. Absent: distended, tenderness, guarding, rebound, rigid Knee exam: Present: deformity (Below the knee amputation) left lower extremity Foot/Toe exam: Present: deformity (Partial amputation of the left foot, erythema and edema) Back exam: Present: normal inspection Neurological exam: Present: alert, altered. Absent: CN II-XII intact (Unable to assess due to patient not cooperating) Psychiatric exam: Present: normal mood Skin exam: Present: warm, dry, intact, normal color, other (see above description for lower extremity amputation and infection). Absent: rash - Labs CBC & Chem 7: 04/21/24 06:22 04/21/24 06:22 Labs: Abnormal Lab Results - Last 24 Hours (Table) 04/20/24 04/20/24 04/21/24 Range/Units 17:05 20:02 06:22 WBC 10.33 H (4.50-10.00) X 10*3/uL MCH 24.8 L (27.0-32.0) pg MCHC 30.3 L (32.0-37.0) g/dL RDW 21.7 H (11.5-14.5) % Neutrophils # 9.20 H (1.80-7.70) X 10*3/uL Lymphocytes # 0.24 L (0.90-5.00) X 10*3/uL Carbon Dioxide (21.6-31.8) mmol/L Anion Gap (4.00-12.00) mmol/L BUN/Creatinine Ratio (12.00-20.00) Ratio POC Glucose (mg/dL) 120 H 114 H (70-110) mg/dL 04/21/24 Range/Units 06:22 WBC (4.50-10.00) X 10*3/uL MCH (27.0-32.0) pg MCHC (32.0-37.0) g/dL RDW (11.5-14.5) % Neutrophils # (1.80-7.70) X 10*3/uL Lymphocytes # (0.90-5.00) X 10*3/uL Carbon Dioxide 21.2 L (21.6-31.8) mmol/L Anion Gap 16.80 H (4.00-12.00) mmol/L BUN/Creatinine Ratio 22.90 H (12.00-20.00) Ratio POC Glucose (mg/dL) (70-110) mg/dL Microbiology - Last 24 Hours (Table) 04/19/24 15:46 Blood Culture - Preliminary Blood 04/19/24 15:20 Blood Culture - Preliminary Blood Assessment and Plan Assessment: 1. Altered mental status; etiology unclear -- CT of the head completed in ED is negative for any acute intracranial abnormality -Patient remains significantly altered -We will order neurology consult 2. Cellulitis right lower extremity; patient is currently on IV Levaquin; we will monitor CBC, CRP and procalcitonin; ID to evaluate and make further recommendations 3. Mild YOLA; slow IV fluid hydration; will monitor strict JUVENCIO's, daily weights, renal function electrolytes 4. Hypertension; Entresto 49-51 mg 1 tablet twice daily; Aldactone 12.5 mg daily 5. Seizure disorder; Vimpat 50 mg twice daily 6. Diabetes mellitus; Farxiga 5 mg daily 7. COPD/asthma; not in exacerbation 8. CVA/TIA; patient is currently on Eliquis; not on any statin therapy DVT prophylaxis; Eliquis CODE STATUS; full code
[2024-04-21 20:25] LABS: Glucose,Whole Blood 69 mg/dL (70-110)
--- NOTE | 2024-04-21 20:34 | P.PN ---
Subjective Progress Note Date: 04/21/24 Principal diagnosis: Reason for follow-up is left lower extremity cellulitis Patient is a 48-year-old female with a past medical history significant for diabetes mellitus patient did have a history of diabetic foot infection requiring right below the knee amputation also have a chronic nonhealing wound on the plantar aspect of the left foot, presented to hospital with significant mental status changes has been diagnosed with a left lower extremity cellulitis. On today's evaluation that is 04/21/2024,the patient did have improvement her fever pattern and afebrile this morning patient did have some improvement in her mentation still have some confusion no headache no chest pain no cough no abdominal pain and left leg redness has decreased intensity. The patient white count is down to 10.33, creatinine is 1.0 blood cultures are pending Objective - Vital Signs Vital signs: Vital Signs Temp 98.2 F 04/21/24 01:33 Pulse 97 04/21/24 01:33 Resp 15 04/21/24 01:33 BP 111/71 04/21/24 01:33 Pulse Ox 96 04/21/24 01:33 FiO2 Intake & Output 04/20/24 04/21/24 04/21/24 18:59 06:59 18:59 Intake Total 200 Output Total 600 Balance 200 -600 Intake: Oral 200 Output: Urine 600 Other: Voiding Method Diaper Diaper # Voids 2 1 # Bowel Movements 1 - Exam GENERAL DESCRIPTION: Middle-aged female lying in bed in no distress RESPIRATORY SYSTEM: Unlabored breathing , decreased breath sounds at bases HEART: S1 S2 regular rate and rhythm , ABDOMEN: Soft , no tenderness EXTREMITIES: Left leg redness slightly decreased wound on the plantar aspect of the left foot with no drainage Exam completed with the help of SENIOR GOVERNMENT PROGRAM ANALYST - Labs CBC & Chem 7: 04/21/24 06:22 04/21/24 06:22 Labs: Abnormal Lab Results - Last 24 Hours (Table) 04/20/24 04/20/24 04/20/24 Range/Units 06:55 06:55 06:55 WBC 12.31 H (4.50-10.00) X 10*3/uL MCH 24.6 L (27.0-32.0) pg MCHC 29.8 L (32.0-37.0) g/dL RDW 22.0 H (11.5-14.5) % MPV 12.9 H (9.5-12.2) FL Immature Gran # 0.05 H (0.00-0.04) X 10*3/uL Neutrophils # 9.99 H (1.80-7.70) X 10*3/uL Monocytes # 1.18 H (0.20-1.00) X 10*3/uL Carbon Dioxide 20.2 L (21.6-31.8) mmol/L Anion Gap 17.80 H (4.00-12.00) mmol/L Est GFR (CKD-EPI) 55 L (>=60) POC Glucose (mg/dL) (70-110) mg/dL Hemoglobin A1c 7.5 H (<=6.0) % Total Bilirubin 1.5 H (0.3-1.2) mg/dL AST 47 H (13-35) U/L ALT 62 H (8-44) U/L Alkaline Phosphatase 139 H (41-126) U/L Globulin 3.5 H (1.6-3.3) g/dL Albumin/Globulin Ratio 1.14 L (1.60-3.17) Ratio 04/20/24/ Range/Units 17:05 20:02 WBC (4.50-10.00) X 10*3/uL MCH (27.0-32.0) pg MCHC (32.0-37.0) g/dL RDW (11.5-14.5) % MPV (9.5-12.2) FL Immature Gran # (0.00-0.04) X 10*3/uL Neutrophils # (1.80-7.70) X 10*3/uL Monocytes # (0.20-1.00) X 10*3/uL Carbon Dioxide (21.6-31.8) mmol/L Anion Gap (4.00-12.00) mmol/L Est GFR (CKD-EPI) (>=60) POC Glucose (mg/dL) 120 H 114 H (70-110) mg/dL Hemoglobin A1c (<=6.0) % Total Bilirubin (0.3-1.2) mg/dL AST (13-35) U/L ALT (8-44) U/L Alkaline Phosphatase (41-126) U/L Globulin (1.6-3.3) g/dL Albumin/Globulin Ratio (1.60-3.17) Ratio Microbiology - Last 24 Hours (Table) 04/19/24 15:46 Blood Culture - Preliminary Blood 04/19/24 15:20 Blood Culture - Preliminary Blood Assessment and Plan (1) Ulcer of left foot due to type 2 diabetes mellitus Current Visit: Yes Status: Acute Code(s): E11.621 - TYPE 2 DIABETES MELLITUS WITH FOOT ULCER; L97.529 - NON-PRESSURE CHRONIC ULCER OTH PRT LEFT FOOT W UNSP SEVERITY SNOMED Code(s): 91861889854613118 (2) Allergy to multiple antibiotics Current Visit: No Status: Acute Code(s): Z88.1 - ALLERGY STATUS TO OTHER ANTIBIOTIC AGENTS SNOMED Code(s): 756551291 (3) Left leg cellulitis Current Visit: No Status: Acute Code(s): L03.116 - CELLULITIS OF LEFT LOWER LIMB SNOMED Code(s): 25177915755258853 (4) Leukocytosis Current Visit: No Status: Acute Code(s): D72.829 - ELEVATED WHITE BLOOD CELL COUNT, UNSPECIFIED SNOMED Code(s): 050030819 Plan: 1patient presented to hospital with sepsis in this patient who did have a fever tachycardia elevated white count source likely left lower extremity cellulitis likely from gram-positive skin ra underlying gram-negative infection antibiotics currently patient also noticed to have elevated liver enzymes underlying hepatobiliary source not entirely excluded 2-patient with multiple antibiotic ALLERGIES that would limit the number of antibiotic safe to use 3-patient white count is trending down fever has improved we will continue with cefepime while waiting for the culture to finalize Dictation was produced using eEvent dictation software. please excuse any grammatical, word or spelling errors.
[2024-04-21 20:54] LABS: Glucose,Whole Blood 94 mg/dL (70-110)
[2024-04-22 02:03] LABS: Glucose,Whole Blood 104 mg/dL (70-110)
[2024-04-22] MEDS: HYDROcodone/APAP 5-325MG 1 EACH TAB PO PRN (03:17)
[2024-04-22 05:54] LABS: Glucose,Whole Blood 113 mg/dL (70-110)
[2024-04-22 09:33] LABS: HCT 43.1 % (37.2-46.3); HGB 12.7 g/dL (12.0-15.0); MCH 24.3 pg (27.0-32.0); MCHC 29.5 g/dL (32.0-37.0); MCV 82.4 FL (80.0-97.0); Mean Platelet Volume 11.8 FL (9.5-12.2); NRBC Per 100 WBC 0 X 10*3/uL (0.00-0.01); Platelet Count 237 X 10*3/uL (140-440); RBC 5.23 X 10*6/uL (4.10-5.20); RDW 22.3 % (11.5-14.5); WBC 7.93 X 10*3/uL (4.50-10.00)
[2024-04-22 10:07] LABS: Anisocytosis (M) 2+; Basophils # (A) 0.09 X 10*3/uL (0.00-0.10); Basophils % (A) 1.1 %; Eosinophils # (A) 0.18 X 10*3/uL (0.04-0.35); Eosinophils % (A) 2.3 %; Lymphocytes # (A) 0.41 X 10*3/uL (0.90-5.00); Lymphocytes % (A) 5.2 %; Monocytes # (A) 0.79 X 10*3/uL (0.20-1.00); Neutrophils # (A) 6.43 X 10*3/uL (1.80-7.70)
[2024-04-22 11:27] LABS: Glucose,Whole Blood 170 mg/dL (70-110)
[2024-04-22 12:12] LABS: Anisocytosis Slight; Basophils # (A) 0.1 k/uL (0-0.2); Basophils % (A) 1 %; Eosinophils # (A) 0.2 k/uL (0-0.7); Eosinophils % (A) 2 %; HCT 42.3 % (34.0-46.0); HGB 12.7 gm/dL (11.4-16.0); Hypochromasia Marked; Lymphocytes # (A) 0.4 k/uL (1.0-4.8); Lymphocytes % (A) 5 %; MCHC 30.1 g/dL (31.0-37.0); Mean Platelet Volume 9.2; Microcytosis Slight; Monocytes # (A) 0.4 k/uL (0-1.0); Monocytes % (A) 5 %; Neutrophils # (A) 7.4 k/uL (1.3-7.7); Neutrophils % (A) 85 %; Platelet Count 238 k/uL (150-450); WBC 8.7 k/uL (3.8-10.6)
--- NOTE | 2024-04-22 12:24 | P.PN ---
Subjective Progress Note Date: 04/22/24 I am following-up with patient and per nurse she continues to be confused. Whatever she watches she would reherses the same speech. Per the nurse, the I.D. team Joseline evaluated the patient and it seems the patient has rash over the abdomen and she discussed with I.D. attending. Per nurse, patient has numerous hospital visits to our facility and other outside hospitals. Objective - Vital Signs Vital signs: Vital Signs Temp 99.0 F 04/22/24 07:25 Pulse 102 H 04/22/24 09:32 Resp 19 04/22/24 07:25 BP 117/69 04/22/24 07:25 Pulse Ox 96 04/22/24 07:25 FiO2 Intake & Output 04/21/24 04/22/24 04/22/24 18:59 06:59 18:59 Output Total 450 300 Balance -450 -300 Output: Urine 450 300 Other: Voiding Method External Catheter External Catheter External Catheter # Voids 1 1 # Bowel Movements 1 - Exam General: Lying in bed and seemed more calm today compared to yesterday. Does not appear in acute distress. HENT: Supple neck. Neuro: Limited but appears there is some improvement. Patient was talking about "Baby Abimael" and "Heaven. She is oriented to self. With option she correctly chose she is in the hospital. She needed redirection but correctly named objects (pen, watch, fist). She is following simple and was able to correctly perform complex command. Pupils are round, equal and reactive to light. No facial weakness. No dy sarthria. Motor: Lifting all extremities above gravity equally. Has below right knee amputation. Cerebellar: Normal finger to nose. Some of the work-up during this hospital visit consisted of: Her Tmax is 100.4F once during this hospital visit but has resolved Initial wbc is 12.7K and most recent is 10.33K. Now resolved Most recent glucose is 86 and that is POC. I reviewed the last of the lab workup. There is minimal elevation of AST and ALT Hemoglobin A1c 7.5 CT of the head is reported as no acute intracranial abnormality. I personally reviewed CT and felt there is some motion artifact but agree with report. Ammonia <9 Vitamin B12: 968 TSH: 6.860 Free T4: 1.60 - Labs CBC & Chem 7: 04/22/24 06:37 04/21/24 06:22 Labs: Abnormal Lab Results - Last 24 Hours (Table) 04/21/24 04/21/24 04/22/24 Range/Units 13:20 20:24 05:52 RBC (4.10-5.20) X 10*6/uL MCH (27.0-32.0) pg MCHC (32.0-37.0) g/dL RDW (11.5-14.5) % Lymphocytes # (0.90-5.00) X 10*3/uL Anisocytosis (manual) POC Glucose (mg/dL) 69 L 113 H (70-110) mg/dL Vitamin B12 968.0 H (200.0-944.0) pg/mL TSH 6.860 H (0.465-4.680) mIU/L 04/22/24 04/22/24 Range/Units 06:37 11:25 RBC 5.23 H (4.10-5.20) X 10*6/uL MCH 24.3 L (27.0-32.0) pg MCHC 29.5 L (32.0-37.0) g/dL RDW 22.3 H (11.5-14.5) % Lymphocytes # 0.41 L (0.90-5.00) X 10*3/uL Anisocytosis (manual) 2+ A POC Glucose (mg/dL) 170 H (70-110) mg/dL Vitamin B12 (200.0-944.0) pg/mL TSH (0.465-4.680) mIU/L Microbiology - Last 24 Hours (Table) 04/19/24 15:46 Blood Culture - Preliminary Blood 04/19/24 15:20 Blood Culture - Preliminary Blood Assessment and Plan Assessment: This is a 48-year-old woman who was sent from her nursing facility because of confusion, slight elevated fever and had elevated white blood cell. ID is on board and they felt the patient has cellulitis. Patient is here multiple times in our facility. Encephalopathy and seems more septic and there is a concern is due to cellulitis. CT head is unremarkable for acute process. Leukocytosis has resolved and no further fevers. Today she is somewhat better and was able to perform simple and complex commands but continues to be confused but again better today. 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 Plan: Unable to obtain MRI Brain since patient has ICD. Will consider repeat CT head tomorrow if continues to be confused. Pending routine EEG Patient is on Vimpat home medication 50 mg twice daily ID team is on board and they feel the patient has acute cellulitis. I spoke with the nurse practitioner regarding consideration of a lumbar puncture but they stated they need from their side since they feel this is acute cellulitis If Does not show any improvements we will pursue with a lumbar puncture. I spo ke with the primary attending and recommend to transition eliquis to heparin drip for consideration of Lumbar puncture if does not improve. Today the patient is showing improvement in mentation compared to yesterday and is able to perform complex commands. But is confused but as stated earlier is b korey today. Will reassess tomorrow. Blood cultures is no growth after 48 hours. Will defer the rest of the medical management the primary and other specialist I discussed with primary team and her nurse. Time with Patient: Less than 30
[2024-04-22 12:31] LABS: INR 1.2 (<1.2); Partial Thromboplastin Time 23.3 sec (22.0-30.0); Prothrombin Time 13.1 sec (10.0-12.5)
[2024-04-22 14:22] LABS: BUN/Creat Ratio 24.82 Ratio (12.00-20.00); Blood Urea Nitrogen 27.3 mg/dL (9.0-27.0); Calcium 9.2 mg/dL (8.7-10.3); Carbon Dioxide 14.3 mmol/L (21.6-31.8); Chloride 106 mmol/L (96-109); Glucose 121 mg/dL (70-110); Potassium 3.9 mmol/L (3.5-5.5); Sodium 144 mmol/L (135-145)
--- NOTE | 2024-04-22 16:34 | P.PN ---
Subjective Progress Note Date: 04/22/24 48-year-old female who presents from [facility] via EMS with complaints of altered mental status. Story was obtained from transfer in addition to documentation provided from rehabilitation center due to patient's mentation being altered. Patient was sent for evaluation due to being febrile, altered mental status, and history of cellulitis. Stated that patient has not been acting herself and has been altered. Additionally patient has a known history of lower extremity cellulitis of the left foot. 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 --Patient has been evaluated by neurology regarding altered mental status; MRI was recommended to be completed with canceled due to patient having an ICD which is marked compatible with MRI; EEG is ordered; neurology recommended blood work including TSH, vitamin B12, folate and ammonia levels Patient remains on Vimpat 50 mg twice daily - 04/22/2024 Patient is seen and evaluated and discussed with nursing staff; remains confused; does follow commands but continues to be repetitive without any appropriate response Vital signs are reviewed temperature of 99, pulse 101, respiration 19 and blood pressure 129/79, O2 saturation 96% on room air Blood work reveals WBC of 8.7, hemoglobin of 12.7 and platelet count of 238 Patient discussed with neurology in great detail; EEG of the brain is ordered, MRI cannot be completed. Neurology recommending LP by interventional radiology; patient is currently on Eliquis for atrial fibrillation and DVT; we will plan to hold Eliquis and start patient on IV heparin per protocol --Patient remains on Vimpat 50 mg twice daily ID is on board and I am not convinced about need for lumbar puncture deeming mental status change resulting from acute cellulitis Objective - Vital Signs Vital signs: Vital Signs Temp 99.0 F 04/22/24 07:25 Pulse 102 H 04/22/24 09:32 Resp 19 04/22/24 07:25 BP 117/69 04/22/24 07:25 Pulse Ox 96 04/22/24 07:25 FiO2 Intake & Output 04/21/24 04/22/24 04/22/24 18:59 06:59 18:59 Output Total 450 300 Balance -450 -300 Output: Urine 450 300 Other: Voiding Method External Catheter External Catheter External Catheter # Voids 1 1 # Bowel Movements 1 - Exam General appearance: alert, in no apparent distress Head exam: Present: atraumatic, normocephalic, normal inspection Eye exam: Present: normal appearance, PERRL, EOMI. Absent: scleral icterus, co njunctival injection, periorbital swelling ENT exam: Present: normal exam, mucous membranes moist Neck exam: Present: normal inspection. Absent: tenderness, meningismus, lymphadenopathy Respiratory exam: Present: normal lung sounds bilaterally. Absent: respiratory distress, wheezes, rales, rhonchi, stridor Cardiovascular Exam: Present: tachycardia, irregular rhythm GI/Abdominal exam: Present: soft, normal bowel sounds. Absent: distended, tenderness, guarding, rebound, rigid Knee exam: Present: deformity (Below the knee amputation) left lower extremity Foot/Toe exam: Present: deformity (Partial amputation of the left foot, erythema and edema) Back exam: Present: normal inspection Neurological exam: Present: alert, altered. Absent: CN II-XII intact (Unable to assess due to patient not cooperating) Psychiatric exam: Present: normal mood Skin exam: Present: warm, dry, intact, normal color, other (see above description for lower extremity amputation and infection). Absent: rash - Labs CBC & Chem 7: 04/22/24 11:51 04/22/24 06:37 Labs: Abnormal Lab Results - Last 24 Hours (Table) 04/21/24 04/21/24 04/22/24 Range/Units 13:20 20:24 05:52 RBC (4.10-5.20) X 10*6/uL MCH (27.0-32.0) pg MCHC (32.0-37.0) g/dL RDW (11.5-14.5) % Lymphocytes # (0.90-5.00) X 10*3/uL Anisocytosis (manual) POC Glucose (mg/dL) 69 L 113 H (70-110) mg/dL Vitamin B12 968.0 H (200.0-944.0) pg/mL TSH 6.860 H (0.465-4.680) mIU/L 04/22/24 04/22/24 Range/Units 06:37 11:25 RBC 5.23 H (4.10-5.20) X 10*6/uL MCH 24.3 L (27.0-32.0) pg MCHC 29.5 L (32.0-37.0) g/dL RDW 22.3 H (11.5-14.5) % Lymphocytes # 0.41 L (0.90-5.00) X 10*3/uL Anisocytosis (manual) 2+ A POC Glucose (mg/dL) 170 H (70-110) mg/dL Vitamin B12 (200.0-944.0) pg/mL TSH (0.465-4.680) mIU/L Microbiology - Last 24 Hours (Table) 04/19/24 15:46 Blood Culture - Preliminary Blood 04/19/24 15:20 Blood Culture - Preliminary Blood Assessment and Plan Assessment: 1. Altered mental status; etiology unclear -- CT of the head completed in ED is negative for any acute intracranial abnormality -Patient remains significantly altered -We will order neurology consult 2. Cellulitis right lower extremity; patient is currently on IV Levaquin; we will monitor CBC, CRP and procalcitonin; ID to evaluate and make further recommendations 3. Mild YOLA; slow IV fluid hydration; will monitor strict JUVENCIO's, daily weights, renal function electrolytes 4. Hypertension; Entresto 49-51 mg 1 tablet twice daily; Aldactone 12.5 mg daily 5. Seizure disorder; Vimpat 50 mg twice daily 6. Diabetes mellitus; Farxiga 5 mg daily 7. COPD/asthma; not in exacerbation 8. CVA/TIA; patient is currently on Eliquis; not on any statin therapy DVT prophylaxis; Eliquis CODE STATUS; full code
[2024-04-22 17:00] LABS: Glucose,Whole Blood 108 mg/dL (70-110)
[2024-04-22 20:10] LABS: Glucose,Whole Blood 137 mg/dL (70-110)
[2024-04-22] MEDS: HEPARIN SOD,PORK IN 0.45% NACL 25,000 UNIT in 0.45% NACL 1 250ML.BAG IV SCH (21:20)
[2024-04-22] MEDS: HEPARIN SODIUM 1,000 UN/ML (10ML VL) IV ONE (21:32)
[2024-04-23 04:05] LABS: Anisocytosis Slight; Basophils # (A) 0.1 k/uL (0-0.2); Basophils % (A) 1 %; Eosinophils # (A) 0.3 k/uL (0-0.7); Eosinophils % (A) 4 %; HCT 45.8 % (34.0-46.0); HGB 13.6 gm/dL (11.4-16.0); Hypochromasia Marked; Lymphocytes # (A) 0.6 k/uL (1.0-4.8); Lymphocytes % (A) 8 %; MCH 24.6 pg (25.0-35.0); MCHC 29.7 g/dL (31.0-37.0); MCV 83.1 fL (80.0-100.0); Mean Platelet Volume 9.2; Monocytes # (A) 0.5 k/uL (0-1.0); Monocytes % (A) 7 %; Neutrophils # (A) 5.5 k/uL (1.3-7.7); Neutrophils % (A) 77 %; Platelet Count 258 k/uL (150-450); RBC 5.51 m/uL (3.80-5.40); RDW 19.6 % (11.5-15.5); WBC 7.2 k/uL (3.8-10.6)
[2024-04-23 04:13] LABS: INR 1.2 (<1.2); Prothrombin Time 12.8 sec (10.0-12.5)
[2024-04-23 04:15] LABS: African American GFR (CKD) 87 (>60 ml/min/1.73 sqM); Anion Gap 12 mmol/L; Blood Urea Nitrogen 25 mg/dL (7-17); Carbon Dioxide 20 mmol/L (22-30); Chloride 105 mmol/L (98-107); Glucose 127 mg/dL (74-99); Non-African American GFR(CKD) 75 (>60 ml/min/1.73 sqM); Potassium 3.5 mmol/L (3.5-5.1); Sodium 137 mmol/L (137-145)
[2024-04-23 06:17] LABS: Glucose,Whole Blood 129 mg/dL (70-110)
[2024-04-23] MEDS: HEPARIN SODIUM 1,000 UN/ML (10ML VL) IV PRN (11:38)
[2024-04-23 11:44] LABS: Glucose,Whole Blood 132 mg/dL (70-110)
--- NOTE | 2024-04-23 14:24 | P.PN ---
Subjective Progress Note Date: 04/23/24 I am following-up with patient and per nurse she is no longer confused and not mumbling. Patient feels she is doing better. Objective - Vital Signs Vital signs: Vital Signs Temp 98.8 F 04/23/24 07:12 Pulse 97 04/23/24 10:17 Resp 19 04/23/24 10:17 BP 122/77 04/23/24 07:12 Pulse Ox 97 04/23/24 07:12 FiO2 Intake & Output 04/22/24 04/23/24 04/23/24 18:59 06:59 18:59 Intake Total 71.826 295.538 Output Total 2200 600 1550 Balance -2200 -528.174 -1254.462 Intake: Intake, IV Titration 71.826 95.538 Amount Heparin Sod,Pork in 0.45% 71.826 95.538 NaCl 25,000 unit In 0.45 % NaCl 1 250ml.bag @ 8. 679 UNITS/KG/HR 9.999 mls /hr IV .Q24H [facility] Rx#: [id number] Oral 200 Output: Urine 2200 600 1550 Other: Voiding Method External Catheter External Catheter External Catheter # Voids 4 4 # Bowel Movements 1 - Exam General: Lying in bed and is not in acute distress. HENT: Supple neck. Neuro: Patient is awake, alert, oriented to self, time and stated she is in the hosp ital. She is able to name objects correctly (pen, watch, fork, knife). She is following simple commands. No aphasia. Pupils are round, equal and reactive to light. Visual nieves are full to confro ntation. EOM intact and no nystagmus. No facial weakness. Motor: Is Lifting all extremities above gravity equally. Has below right knee amputation.. Some of the work-up during this hospital visit consisted of: Her Tmax is 100.4F once during this hospital visit but has resolved Initial wbc is 12.7K and most recent is 10.33K. Now resolved Most recent glucose is 86 and that is POC. I reviewed the last of the lab workup. There is minimal elevation of AST and ALT Hemoglobin A1c 7.5 CT of the head is reported as no acute intracranial abnormality. I personally reviewed CT and felt there is some motion artifact but agree with report. Ammonia <9 Vitamin B12: 968 TSH: 6.860 Free T4: 1.60 Preliminary Routine EEG: Is abnormal. The background is mild encephalopathy. Has epileptiform discharges over the left temporal/frontal. No seizure. - Labs CBC & Chem 7: 04/23/24 03:26 04/23/24 03:26 Labs: Abnormal Lab Results - Last 24 Hours (Table) 04/22/24 04/22/24 04/23/24 Range/Units 06:37 20:08 03:26 RBC (3.80-5.40) m/uL MCH (25.0-35.0) pg MCHC (31.0-37.0) g/dL RDW (11.5-15.5) % Lymphocytes # (1.0-4.8) k/uL PT (10.0-12.5) sec INR (<1.2) APTT (22.0-30.0) sec Carbon Dioxide 14.3 L 20 L (21.6-31.8) mmol/L Anion Gap 23.70 H (4.00-12.00) mmol/L BUN 27.3 H 25 H (9.0-27.0) mg/dL BUN/Creatinine Ratio 24.82 H (12.00-20.00) Ratio Glucose 121 H 127 H (70-110) mg/dL POC Glucose (mg/dL) 137 H (70-110) mg/dL 04/23/24 04/23/24 04/23/24 Range/Units 03:26 03:26 06:16 RBC 5.51 H (3.80-5.40) m/uL MCH 24.6 L (25.0-35.0) pg MCHC 29.7 L (31.0-37.0) g/dL RDW 19.6 H (11.5-15.5) % Lymphocytes # 0.6 L (1.0-4.8) k/uL PT 12.8 H (10.0-12.5) sec INR 1.2 H (<1.2) APTT (22.0-30.0) sec Carbon Dioxide (21.6-31.8) mmol/L Anion Gap (4.00-12.00) mmol/L BUN (9.0-27.0) mg/dL BUN/Creatinine Ratio (12.00-20.00) Ratio Glucose (70-110) mg/dL POC Glucose (mg/dL) 129 H (70-110) mg/dL 04/23/24 04/23/24 Range/Units 10:51 11:43 RBC (3.80-5.40) m/uL MCH (25.0-35.0) pg MCHC (31.0-37.0) g/dL RDW (11.5-15.5) % Lymphocytes # (1.0-4.8) k/uL PT (10.0-12.5) sec INR (<1.2) APTT 41.9 H (22.0-30.0) sec Carbon Dioxide (21.6-31.8) mmol/L Anion Gap (4.00-12.00) mmol/L BUN (9.0-27.0) mg/dL BUN/Creatinine Ratio (12.00-20.00) Ratio Glucose (70-110) mg/dL POC Glucose (mg/dL) 132 H (70-110) mg/dL Microbiology - Last 24 Hours (Table) 04/19/24 15:46 Blood Culture - Preliminary Blood 04/19/24 15:20 Blood Culture - Preliminary Blood Assessment and Plan Assessment: This is a 48-year-old woman who was sent from her nursing facility because of confusion, slight elevated fever and had elevated white blood cell. ID is on board and they felt the patient has cellulitis. Patient is here multiple times in our facility. Encephalopathy and seems more septic and there is a concern is due to cellulitis. CT head is unremarkable for acute process. Leukocytosis has reso lved and no further fevers. Mentation is drastically better. Preliminary EEG: Showed mild encephalopathy and epileptiform discharges over the left temporal/frontal region but no seizure---as stated confusion has resolved and is back to back to base line. 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 Plan: Unable to obtain MRI Brain since patient has ICD. CT head is unremarkable for acute process. Preliminary Routine EEG: Is abnormal. The background is mild encephalopathy. Has epileptiform discharges over the left temporal/frontal. No seizure. Patient is on Vimpat home medication 50 mg twice daily and I will go up to 100mg bid. ID team is on board and they feel the patient has acute cellulitis. I.D. does not feel Lumbar puncture is needed. From neurological perspective, agree with I.D. no need for lumbar puncture since mentation is drastically better. Did not require antiviral. She is on home eliquis and yesterday was on heparin drip for concern lumbar puncture but since no needed for lumbar puncture can be resumed back on home eliquis. Blood cultures is no growth after 48 hours. Will defer the rest of the medical management the primary and other specialist The plan is discussed with patient and her nurse. Dr. Hernandez will resume neurology service tomorrow A.M. tomorrow. Time with Patient: Less than 30
[2024-04-23] MEDS: APIXABAN 5 MG TAB PO SCH (14:35)
[2024-04-23 16:26] LABS: Glucose,Whole Blood 151 mg/dL (70-110)
--- NOTE | 2024-04-23 20:19 | PN ---
PROGRESS NOTE DATE OF SERVICE: 04/23/2024 SUBJECTIVE: This is a 48-year-old woman, who was admitted after change in mental status and cellulitis of the right lower extremity, who is being closely monitored. No chest pain. No palpitation. OBJECTIVE: VITAL SIGNS: Pulse 97, blood pressure 122/76, and respirations 19. CHEST: Few scattered rhonchi and crackles. ABDOMEN: Soft. NERVOUS SYSTEM: Nonfocal. LABORATORY DATA: Reviewed. ASSESSMENT: 1. Change in mental status, etiology unclear. 2. Cellulitis of the right lower extremity. 3. Mild above-knee amputation. 4. Hypertension. 5. Seizure disorder. 6. Multiple complex medical issues. RECOMMENDATIONS: Recommend to continue current medical management and symptomatic treatment. Repeat labs. Otherwise, continue the antibiotics. Possible discharge in the next 24 hours if okay with the Infectious Disease and Neurology. Further recommendations to follow. MMODL / IJN: [id number] /
--- NOTE | 2024-04-23 20:53 | EEG ---
ELECTROENCEPHALOGRAM REPORT CLINICAL HISTORY: This is a 48-year-old woman with history of seizure, who has altered mental status. The video EEG is obtained to evaluate for seizure epileptiform activity. RELEVANT MEDICATION: Vimpat. EEG TYPE: This is a routine 21-channel EEG with video using the 10/20 electrode placement system. DESCRIPTION: Wakefulness is obtained. During awake state, the posterior-dominant rhythm consists of 10 to 10.5 hertz activity that is well modulated, well sustained. At times, the background consists of [id number] voltage of delta intermixed with theta activity. There was no physiological stage 2 sleep architecture. There is no focal slowing. Interictal and ictal is, there is spike and slow waves over the left temporal/frontal region. There is no seizure noted during the study. ACTIVATION PROCEDURE: Photic stimulation did not evoke a posterior driving response. There is no abnormality during the photic stimulation. Hyperventilation is not performed. CLINICAL INTERPRETATION: This is an abnormal routine EEG. The background slowing is suggestive of mild encephalopathy. There is epileptiform discharge over the left temporal/frontal region, which can increase risk for seizure. Otherwise, no seizures noted during the study. No focal slowing. Clinical correlation is recommended. MMODL / IJN: [id number] /
[2024-04-23 21:23] LABS: Glucose,Whole Blood 137 mg/dL (70-110)
[2024-04-23] MEDS: QUEtiapine 25 MG TAB PO SCH (21:25)
[2024-04-23] MEDS: LACOSAMIDE 50 MG TABLET PO SCH (21:25)
[2024-04-24 06:29] LABS: Glucose,Whole Blood 125 mg/dL (70-110)
--- NOTE | 2024-04-24 08:26 | P.PN ---
Subjective Progress Note Date: 04/22/24 Principal diagnosis: Reason for follow-up is left lower extremity cellulitis Patient is a 48-year-old female with a past medical history significant for diabetes mellitus patient did have a history of diabetic foot infection requiring right below the knee amputation also have a chronic nonhealing wound on the plantar aspect of the left foot, presented to hospital with significant mental status changes has been diagnosed with a left lower extremity cellulitis. On today's evaluation that is 04/22/2024, the patient continues to be afebrile, the patient is on room air and breathing comfortably, the Pt seem to be slightly more awake today still have bit of confusion but denies any headache no chest pain shortness with the cough no abdominal pain or pain to the left lower extremity Patient white count normalized to 8.7 creatinine is 1.1 blood culture negative Objective - Vital Signs Vital signs: Vital Signs Temp 99.0 F 04/22/24 07:25 Pulse 102 H 04/22/24 08:15 Resp 19 04/22/24 07:25 BP 117/69 04/22/24 07:25 Pulse Ox 96 04/22/24 07:25 FiO2 Intake & Output 04/21/24 04/22/24 04/22/24 18:59 06:59 18:59 Output Total 450 Balance -450 Output: Urine 450 Other: Voiding Method External Catheter External Catheter # Voids 1 1 # Bowel Movements 1 - Exam GENERAL DESCRIPTION: Middle-aged female lying in bed in no distress RESPIRATORY SYSTEM: Unlabored breathing , decreased breath sounds at bases HEART: S1 S2 regular rate and rhythm , ABDOMEN: Soft , no tenderness EXTREMITIES: Left leg redness slightly decreased wound on the plantar aspect of the left foot with no drainage Exam completed with the help of CORE MANAGER - Labs CBC & Chem 7: 04/23/24 03:26 04/23/24 03:26 Labs: Abnormal Lab Results - Last 24 Hours (Table) 04/21/24 04/21/24 04/21/24 Range/Units 06:22 06:22 13:20 WBC 10.33 H (4.50-10.00) X 10*3/uL MCH 24.8 L (27.0-32.0) pg MCHC 30.3 L (32.0-37.0) g/dL RDW 21.7 H (11.5-14.5) % Neutrophils # 9.20 H (1.80-7.70) X 10*3/uL Lymphocytes # 0.24 L (0.90-5.00) X 10*3/uL Carbon Dioxide 21.2 L (21.6-31.8) mmol/L Anion Gap 16.80 H (4.00-12.00) mmol/L BUN/Creatinine Ratio 22.90 H (12.00-20.00) Ratio POC Glucose (mg/dL) (70-110) mg/dL TSH 6.860 H (0.465-4.680) mIU/L 04/21/24 04/22/24 Range/Units 20:24 05:52 WBC (4.50-10.00) X 10*3/uL MCH (27.0-32.0) pg MCHC (32.0-37.0) g/dL RDW (11.5-14.5) % Neutrophils # (1.80-7.70) X 10*3/uL Lymphocytes # (0.90-5.00) X 10*3/uL Carbon Dioxide (21.6-31.8) mmol/L Anion Gap (4.00-12.00) mmol/L BUN/Creatinine Ratio (12.00-20.00) Ratio POC Glucose (mg/dL) 69 L 113 H (70-110) mg/dL TSH (0.465-4.680) mIU/L Microbiology - Last 24 Hours (Table) 04/19/24 15:46 Blood Culture - Preliminary Blood 04/19/24 15:20 Blood Culture - Preliminary Blood Assessment and Plan (1) Ulcer of left foot due to type 2 diabetes mellitus Current Visit: Yes Status: Acute Code(s): E11.621 - TYPE 2 DIABETES MELLITUS WITH FOOT ULCER; L97.529 - NON-PRESSURE CHRONIC ULCER OTH PRT LEFT FOOT W UNSP SEVERITY SNOMED Code(s): 17942460807875512 (2) Allergy to multiple antibiotics Current Visit: No Status: Acute Code(s): Z88.1 - ALLERGY STATUS TO OTHER ANTIBIOTIC AGENTS SNOMED Code(s): 309176929 (3) Left leg cellulitis Current Visit: No Status: Acute Code(s): L03.116 - CELLULITIS OF LEFT LOWER LIMB SNOMED Code(s): 72156875416081425 (4) Leukocytosis Current Visit: No Status: Acute Code(s): D72.829 - ELEVATED WHITE BLOOD CELL COUNT, UNSPECIFIED SNOMED Code(s): 663569485 Plan: 1patient presented to hospital with sepsis in this patient who did have a fever tachycardia elevated white count source likely left lower extremity cellulitis likely from gram-positive skin ra underlying gram-negative infection antibiotics currently patient also noticed to have elevated liver enzymes underlying hepatobiliary source not entirely excluded 2-patient with multiple antibiotic ALLERGIES that would limit the number of antibiotic safe to use 3-patient white count normalized and fever has resolved we will continue with cefepime while waiting for the culture to finalize Dictation was produced using [employer] dictation software. please excuse any grammatical, word or spelling errors. Time with Patient: Less than 30
--- NOTE | 2024-04-24 08:27 | P.PN ---
Subjective Progress Note Date: 04/23/24 Principal diagnosis: Reason for follow-up is left lower extremity cellulitis Patient is a 48-year-old female with a past medical history significant for diabetes mellitus patient did have a history of diabetic foot infection requiring right below the knee amputation also have a chronic nonhealing wound on the plantar aspect of the left foot, presented to hospital with significant mental status changes has been diagnosed with a left lower extremity cellulitis. On today's evaluation that is 04/23/2024, Patient is afebrile patient is currently on room air and denies having any shortness of breath, the patient denies any chest pain or cough, the patient denies any nausea vomiting did not have any abdominal pain and no diarrhea patient still has some features of c onfusion but overall improvement in her symptomatology. Patient white count is 7.2 creatinine 0.90 Objective - Vital Signs Vital signs: Vital Signs Temp 98.7 F 04/23/24 14:09 Pulse 104 H 04/23/24 14:09 Resp 18 04/23/24 14:09 BP 120/73 04/23/24 14:09 Pulse Ox 95 04/23/24 14:09 FiO2 Intake & Output 04/22/24 04/23/24 04/23/24 18:59 06:59 18:59 Intake Total 71.826 795.538 Output Total 2200 600 2100 Balance -2200 -528.174 -1304.462 Intake: Intake, IV Titration 71.826 95.538 Amount Heparin Sod,Pork in 0.45% 71.826 95.538 NaCl 25,000 unit In 0.45 % NaCl 1 250ml.bag @ 8. 679 UNITS/KG/HR 9.999 mls /hr IV .Q24H [facility] Rx#: [id number] Oral 700 Output: Urine 2200 600 2100 Other: Voiding Method External Catheter External Catheter External Catheter # Voids 4 4 # Bowel Movements 1 - Exam GENERAL DESCRIPTION: Middle-aged female lying in bed in no distress RESPIRATORY SYSTEM: Unlabored breathing , decreased breath sounds at bases HEART: S1 S2 regular rate and rhythm , ABDOMEN: Soft , no tenderness EXTREMITIES: Left leg redness has decreased in intensity no drainage - Labs CBC & Chem 7: 04/23/24 03:26 04/23/24 03:26 Labs: Abnormal Lab Results - Last 24 Hours (Table) 04/22/24 04/23/24 04/23/24 Range/Units 20:08 03:26 03:26 RBC 5.51 H (3.80-5.40) m/uL MCH 24.6 L (25.0-35.0) pg MCHC 29.7 L (31.0-37.0) g/dL RDW 19.6 H (11.5-15.5) % Lymphocytes # 0.6 L (1.0-4.8) k/uL PT (10.0-12.5) sec INR (<1.2) APTT (22.0-30.0) sec Carbon Dioxide 20 L (22-30) mmol/L BUN 25 H (7-17) mg/dL Glucose 127 H (74-99) mg/dL POC Glucose (mg/dL) 137 H (70-110) mg/dL 04/23/24 04/23/24 04/23/24 Range/Units 03:26 06:16 10:51 RBC (3.80-5.40) m/uL MCH (25.0-35.0) pg MCHC (31.0-37.0) g/dL RDW (11.5-15.5) % Lymphocytes # (1.0-4.8) k/uL PT 12.8 H (10.0-12.5) sec INR 1.2 H (<1.2) APTT 41.9 H (22.0-30.0) sec Carbon Dioxide (22-30) mmol/L BUN (7-17) mg/dL Glucose (74-99) mg/dL POC Glucose (mg/dL) 129 H (70-110) mg/dL 04/23/24 04/23/24 Range/Units 11:43 16:24 RBC (3.80-5.40) m/uL MCH (25.0-35.0) pg MCHC (31.0-37.0) g/dL RDW (11.5-15.5) % Lymphocytes # (1.0-4.8) k/uL PT (10.0-12.5) sec INR (<1.2) APTT (22.0-30.0) sec Carbon Dioxide (22-30) mmol/L BUN (7-17) mg/dL Glucose (74-99) mg/dL POC Glucose (mg/dL) 132 H 151 H (70-110) mg/dL Microbiology - Last 24 Hours (Table) 04/19/24 15:46 Blood Culture - Preliminary Blood 04/19/24 15:20 Blood Culture - Preliminary Blood Assessment and Plan (1) Ulcer of left foot due to type 2 diabetes mellitus Current Visit: Yes Status: Acute Code(s): E11.621 - TYPE 2 DIABETES MELLITUS WITH FOOT ULCER; L97.529 - NON-PRESSURE CHRONIC ULCER OTH PRT LEFT FOOT W UNSP SEVERITY SNOMED Code(s): 80338458928838128 (2) Allergy to multiple antibiotics Current Visit: No Status: Acute Code(s): Z88.1 - ALLERGY STATUS TO OTHER ANTIBIOTIC AGENTS SNOMED Code(s): 736725555 (3) Left leg cellulitis Current Visit: No Status: Acute Code(s): L03.116 - CELLULITIS OF LEFT LOWER LIMB SNOMED Code(s): 06000184258464628 (4) Leukocytosis Current Visit: No Status: Acute Code(s): D72.829 - ELEVATED WHITE BLOOD CELL COUNT, UNSPECIFIED SNOMED Code(s): 087571883 Plan: 1patient presented to hospital with sepsis in this patient who did have a fever tachycardia elevated white count source likely left lower extremity cellulitis likely from gram-positive skin ra underlying gram-negative infection antibiotics currently patient also noticed to have elevated liver enzymes underlying hepatobiliary source not entirely excluded 2-patient with multiple antibiotic ALLERGIES that would limit the number of antibiotic safe to use 3-patient white count normalized and fever has resolved culture has been negative so far 4-patient to continue cefepime while inpatient finishing therapy with oral antibiotics on discharge Dictation was produced using [employer] dictation software. please excuse any grammatical, word or spelling errors. Time with Patient: Less than 30
[2024-04-24 08:40] LABS: Basophils # (A) 0.09 X 10*3/uL (0.00-0.10); Basophils % (A) 1.5 %; Eosinophils # (A) 0.29 X 10*3/uL (0.04-0.35); Eosinophils % (A) 4.7 %; HCT 40.3 % (37.2-46.3); HGB 12.2 g/dL (12.0-15.0); Lymphocytes # (A) 0.55 X 10*3/uL (0.90-5.00); MCH 24.9 pg (27.0-32.0); MCHC 30.3 g/dL (32.0-37.0); MCV 82.2 FL (80.0-97.0); Mean Platelet Volume 11.9 FL (9.5-12.2); Monocytes # (A) 0.68 X 10*3/uL (0.20-1.00); Monocytes % (A) 11.1 %; NRBC Per 100 WBC 0 X 10*3/uL (0.00-0.01); Neutrophils # (A) 4.48 X 10*3/uL (1.80-7.70); Neutrophils % (A) 73.4 %; Platelet Count 242 X 10*3/uL (140-440); RDW 21.8 % (11.5-14.5); WBC 6.11 X 10*3/uL (4.50-10.00)
[2024-04-24 08:56] LABS: Blood Urea Nitrogen 20.9 mg/dL (9.0-27.0); Carbon Dioxide 21.5 mmol/L (21.6-31.8); Chloride 104 mmol/L (96-109); Glucose 98 mg/dL (70-110); Potassium 3.3 mmol/L (3.5-5.5); Sodium 140 mmol/L (135-145)
[2024-04-24] MEDS ORDERED: Potassium Replacement Protocol 1 EACH MISC MISCELLANE PRN (10:18)
[2024-04-24] MEDS: POTASSIUM CHLORIDE ER 20 MEQ TAB.ER PO SCH (11:43)
[2024-04-24 12:03] LABS: Glucose,Whole Blood 142 mg/dL (70-110)
--- NOTE | 2024-04-24 14:46 | P.DS ---
Providers Date of admission: 04/19/24 16:25 Expected date of discharge: 04/24/24 Attending physician: Latisha Tucker Consults: 04/19/24 23:23 Consult Physician Routine Consulting Provider: Casi Blake Consult Reason/Comments: Cellulitis Do you want consulting provider notified?: Yes 04/20/24 15:28 Consult Physician Routine Consulting Provider: Broderick Cazares Consult Reason/Comments: AMS, hallucinations, talking to self, excessive repetition of words Do you want consulting provider notified?: Yes Primary care physician: Dylan Causey Hospital Course: Final diagnosis -Altered mental status, acute metabolic encephalopathy secondary to acute left lower extremity cellulitis, present on admission, improved -Cellulitis, left lower extremity; present on admission -Chronic nonhealing left foot diabetic ulcer -History of right BKA previously -Mild YOLA, improving -Hypertension history -Seizure disorder history -Diabetes mellitus -COPD/asthma; not in exacerbation -History of CVA/TIA -DVT prophylaxis; Eliquis -GI prophylaxis - full code Discharge disposition Patient is being discharged in a stable condition with guarded prognosis to [facility]. Patient will follow-up with Dr. Causey in the outpatient setting upon discharge. Patient is to continue with oral Keflex for the next 7 days and continue local wound care and close outpatient follow-up with the wound care center as scheduled. Total time taken is greater than 35 minutes. Hospital course This is a 48-year-old female who was recently admitted with increased altered mental status with concerns of lower extremity cellulitis being closely monitored. Patient maintained on antibiotics and being followed by infectious disease along with wound care and neurology. Patient underwent EEG making adjustments to medications and mentation significantly improved recommending outpatient follow-up with neurology. Patient will continue on Vimpat and recommend neurology follow-up. Patient showing clinical improvement and will continue on oral Keflex 3 times daily for the next 1 week to complete the course. Patient to continue with Triad cream and wound care with outpatient wound care center follow-up. Patient has been cleared by consultations. Please refer to other consultation notes for further HPI. Currently no reports of chest pain, shortness of breath, or palpitations. Patient is afebrile. No reports of nausea or vomiting and patient is tolerating diet. Patient will be going to [facility] today. Guarded prognosis and high risk for readmissions given patient's significant comorbidities Physical exam: Gen: This is a 48-year-old female who is awake, alert and oriented x 2, baseline, appears elderly, obese HEENT: Head is atraumatic, normocephalic. Pupils equal, round. Sclerae is anicteric. NECK: Supple. No JVD. No lymphadenopathy. No thyromegaly. LUNGS: Diminished breath sounds bilaterally otherwise clear to auscultation. No wheezes or rhonchi. No intercostal retractions. HEART: S1, S2 are muffled ABDOMEN: Soft. Obese bowel sounds are present. No masses. No tenderness. EXTREMITIES: No pedal edema. No calf tenderness. Right BKA noted, left lower extremity redness and swelling significantly improved and dressing is currently dry and intact of the foot NEUROLOGICAL: Patient is awake, alert and oriented x3. Cranial nerves 2 through 12 are grossly intact. Diffusely weak Please refer to medication reconciliation sheet for a list of medications. The impression and plan of care has been dictated by Aretha Silver, Nurse Practitioner as directed. Dr. Christo MD I have performed a history and examination and MDM of this patient, discussed the same with the dictator, and agree with the dictator's assessment and plan as written ,documented as a scribe. Based on total visit time, I have performed more than 50% of the visit. Patient Condition at Discharge: Good Plan - Discharge Summary Discharge Rx Participant: No New Discharge Prescriptions: New RX: QUEtiapine [SEROquel] 12.5 mg PO HS tab RX: Potassium Chloride ER [K-Dur 20] 20 meq PO Q1HR tab Cephalexin [Keflex] 500 mg PO Q8HR 7 Days #21 cap RX: Lacosamide [Vimpat] 100 mg PO BID@0800,2100 #8 tab Continue RX: Insulin Glargine [Lantus Vial] 10 unit SQ DAILY@0800 RX: Insulin Aspart [NovoLOG Flexpen] See Protocol SQ ACHS@07,11,1630,2130 RX: Acetaminophen Tab [Tylenol] 650 mg PO Q6HR PRN tab PRN Reason: Mild Pain Or Fever > 100.5 RX: Pantoprazole [Protonix] 40 mg PO DAILY@0600 RX: Magnesium Hydroxide [Milk of Magnesia Concentrate] 7,200 mg PO DAILY PRN PRN Reason: Constipation RX: bisacodyL [Dulcolax] 10 mg RECTAL DAILY PRN PRN Reason: Constipation RX: Budesonide [Pulmicort] 0.5 mg INHALATION RT-BID@ RX: Albuterol Nebulized [Ventolin Nebulized] 2.5 mg INHALATION RT-Q6H PRN PRN Reason: Shortness Of Breath RX: Sacubitril/Valsartan [Entresto 49 mg-51 mg Tablet] 1 tab PO BID@0800,1700 RX: Magnesium Oxide [Magox 400] 400 mg PO BID@0800,1700 RX: Bumetanide [BUMEX] 1 mg PO BID@0800,1700 RX: Multivitamins, Thera [Multivitamin (formulary)] 1 tab PO DAILY@1700 RX: Gabapentin [Neurontin] 100 mg PO DAILY@0800 #2 cap RX: Gabapentin [Neurontin] 200 mg PO HS@2100 #2 cap RX: Melatonin 4.5 mg PO HS RX: Na Phos,M-B/Na Phos,Di-Ba [Fleet Adult] 133 ml RECTAL DAILY PRN PRN Reason: Constipation RX: Thiamine [Vitamin B-1] 100 mg PO DAILY@0800 RX: Spironolactone [Aldactone] 12.5 mg PO DAILY@0800 RX: Folic Acid 1 mg PO DAILY@0800 RX: Empagliflozin [Jardiance] 10 mg PO DAILY@0800 RX: Apixaban [Eliquis] 5 mg PO BID@0800,1700 RX: HYDROcodone/APAP 5-325MG [Verbank 5-325] 1 tab PO Q6H PRN #3 tab PRN Reason: Pain Discontinued RX: Lacosamide [Vimpat] 50 mg PO BID@0800,2100 RX: Doxycycline Hyclate 100 mg PO BID@0800,1700 Discharge Medication List RX: Insulin Glargine [Lantus Vial] 10 unit SQ DAILY@0800 04/30/19 [History] RX: Insulin Aspart [NovoLOG Flexpen] See Protocol SQ ACHS@07,11,1630,2130 05/07/23 [History] RX: Acetaminophen Tab [Tylenol] 650 mg PO Q6HR PRN tab 05/13/23 [Rx] RX: Pantoprazole [Protonix] 40 mg PO DAILY@0600 01/29/24 [History] RX: Albuterol Nebulized [Ventolin Nebulized] 2.5 mg INHALATION RT-Q6H PRN 04/19/24 [History] RX: Apixaban [Eliquis] 5 mg PO BID@0800,1700 04/19/24 [History] RX: Budesonide [Pulmicort] 0.5 mg INHALATION RT-BID@08,17 04/19/24 [History] RX: Bumetanide [BUMEX] 1 mg PO BID@0800,17004/19/24 [History] RX: Empagliflozin [Jardiance] 10 mg PO DAILY@0804/19/24 [History] RX: Folic Acid 1 mg PO DAILY@0804/19/24 [History] RX: Magnesium Hydroxide [Milk of Magnesia Concentrate] 7,200 mg PO DAILY PRN 04/19/24 [History] RX: Magnesium Oxide [Magox 400] 400 mg PO BID@0800,17004/19/24 [History] RX: Melatonin 4.5 mg PO HS 04/19/24 [History] RX: Multivitamins, Thera [Multivitamin (formulary)] 1 tab PO DAILY@169904/19/24 [History] RX: Na Phos,M-B/Na Phos,Di-Ba [Fleet Adult] 133 ml RECTAL DAILY PRN 04/19/24 [History] RX: Sacubitril/Valsartan [Entresto 49 mg-51 mg Tablet] 1 tab PO BID@0800,17004/19/24 [History] RX: Spironolactone [Aldactone] 12.5 mg PO DAILY@0804/19/24 [History] RX: Thiamine [Vitamin B-1] 100 mg PO DAILY@0804/19/24 [History] RX: bisacodyL [Dulcolax] 10 mg RECTAL DAILY PRN 04/19/24 [History] Cephalexin [Keflex] 500 mg PO Q8HR 7 Days #21 cap 04/24/24 [Rx] RX: Gabapentin [Neurontin] 100 mg PO DAILY@0800 #2 cap 04/24/24 [Rx] RX: Gabapentin [Neurontin] 200 mg PO HS@2100 #2 cap 04/24/24 [Rx] RX: HYDROcodone/APAP 5-325MG [Verbank 5-325] 1 tab PO Q6H PRN #3 tab 04/24/24 [Rx] RX: Lacosamide [Vimpat] 100 mg PO BID@0800,2100 #8 tab 04/24/24 [Rx] RX: Potassium Chloride ER [K-Dur 20] 20 meq PO Q1HR tab 04/24/24 [Rx] RX: QUEtiapine [SEROquel] 12.5 mg PO HS tab 04/24/24 [Rx] Follow up Appointment(s)/Referral(s): Dylan Causey MD [Primary Care Provider] - 1-2 days [facility] [NON-STAFF] - As Needed Wound Center[facility] [NON-STAFF] - 1 Week Ambulatory/Diagnostic Orders: Basic Metabolic Panel [LAB.AMB] Time Frame: 3 Days, Location: None Selected Activity/Diet/Wound Care/Special Instructions: Patient is returning to [facility] Activity as tolerated Follow-up with primary care provider on discharge Continue with local wound care with Triad cream Continue heart healthy diabetic diet dysphagia chopped and finger foods Follow-up with the wound care center Continue to elevate lower extremity while at rest Continue monitoring Accu-Cheks before meals and at bedtime and continue with current insulin regimen Repeat labs in 2 to 3 days to monitor BMP for hypokalemia Discharge Disposition: TRANSFER TO SNF/ECF
--- NOTE | 2024-04-24 15:08 | CDI ---
Documentation Clarification Form Date: 04/24/2024 02:51:13 PM From: Evelyn Ernandez RN CCDS Phone: [phone] Admit Date: 04/19/2024 04:25:00 PM Patient Name: Flaca Hinson Visit Number: [id number] Discharge Date: ATTENTION: The Clinical Documentation Specialists (CDI) and [facility] Coding Staff appreciate your assistance in clarifying documentation. Please respond to the clarification below the line at the bottom and electronically sign. The CDI & [facility] Coding staff will review the response and follow-up if needed. Please note: Queries are made part of the Legal Health Record. If you have any questions, please contact the author of this message via ITS. Aretha Silver NP The patient has Sepsis documented ID consult, 04/20. Based on this information and the findings below, is there an additional diagnosis that is clinically appropriate for this patient? History/Risk Factors: 48 y/o female presents to the ED from [facility] via EMS for altered mental status. Medical History: DM CHF COPD DM, HTN and Seizure. 04/20, HP Clinical Indicators: WBC, 04/19: 12.7 Blood cultures, 04/23: No growth after 72 hours Vitals signs, 04/19: HP 108/61; HR 129; Temp 99.6F Oral; RR 18; SpO2 94% room air ID consult, 04/20: Patient presented to hospital with sepsis in this patient who did have a fever tachycardia elevated white count source likely left lower extremity cellulitis likely from gram positive skin ra underlying gram negative infection. ER from the rehabilitation center for evaluation of mentation being altered and not acting herself also noticed to have increasing swelling and redness to the left lower extremity patient on presentation to the hospital did have a fever 100.4 F ID note, 04/23: Ulcer of left foot due to type2 DM, Left leg cellulitis. Treatment: ID Consult: see above Antibiotics: 04/20 Cefepime HCI 2gm IVPB Q8H; 04/19 Levaquin 250mg IVPB x 1; IV Bolus:04/19 0.9NS 1L IVPB x 1 Is there an additional diagnosis that is clinically appropriate for this patient? [ x ] Sepsis, present on admission [ ] Sepsis, developed during stay, not present on admission [ ] Sepsis ruled out [ ] Other, please specify [ ] Unable to determine SIRS Criteria: 2 or more of the following may indicate SIRS Temperature < 96.8F (36C) or > 101.0F (38.3C) Heart Rate > 90 bpm Respiratory Rate > 20 breaths/min or PaCO2 < 32 mmHg White Blood Cell Count > 12,000 or < 4,000 cells/mm3 or > 10% bands (Template Last Reviewed: November 2022) MTDD
--- NOTE | 2024-04-24 15:58 | P.PN ---
Subjective Progress Note Date: 04/24/24 Principal diagnosis: Reason for follow-up is left lower extremity cellulitis Patient is a 48-year-old female with a past medical history significant for diabetes mellitus patient did have a history of diabetic foot infection requiring right below the knee amputation also have a chronic nonhealing wound on the plantar aspect of the left foot, presented to hospital with significant mental status changes has been diagnosed with a left lower extremity cellulitis. On today's evaluation that is 04/24/2024, patient has been afebrile, patient is breathing comfortably and is currently on room air, patient denies having any significant cough no chest pain shortness of breath, patient denies nausea vomiting or diarrhea and no abdominal pain denies any worsening pain to the left lower extremity. Mention feeling better patient white count is 6.1, creatinine is 1.0 blood cultures have been negative Objective - Vital Signs Vital signs: Vital Signs Temp 98.8 F 04/24/24 07:45 Pulse 84 04/24/24 09:25 Resp 18 04/24/24 08:00 BP 109/61 04/24/24 08:50 Pulse Ox 97 04/24/24 07:45 FiO2 Intake & Output 04/23/24 04/24/24 04/24/24 18:59 06:59 18:59 Intake Total 795.538 Output Total 2100 700 500 Balance -1304.462 -700 -500 Intake: Intake, IV Titration 95.538 Amount Heparin Sod,Pork in 0.45% 95.538 NaCl 25,000 unit In 0.45 % NaCl 1 250ml.bag @ 8. 679 UNITS/KG/HR 9.999 mls /hr IV .Q24H [facility] Rx#: [id number] Oral 700 Output: Urine 2100 700 500 Other: Voiding Method External Catheter External Catheter External Catheter # Voids 4 # Bowel Movements 1 - Exam GENERAL DESCRIPTION: Middle-aged female lying in bed in no distress RESPIRATORY SYSTEM: Unlabored breathing , decreased breath sounds at bases HEART: S1 S2 regular rate and rhythm , ABDOMEN: Soft , no tenderness EXTREMITIES: Left leg redness has decreased in intensity no drainage - Labs CBC & Chem 7: 04/24/24 04:40 04/24/24 04:40 Labs: Abnormal Lab Results - Last 24 Hours (Table) 04/23/24 04/23/24 04/24/24 Range/Units 16:24 21:21 04:40 MCH 24.9 L (27.0-32.0) pg MCHC 30.3 L (32.0-37.0) g/dL RDW 21.8 H (11.5-14.5) % Lymphocytes # 0.55 L (0.90-5.00) X 10*3/uL Potassium (3.5-5.5) mmol/L Carbon Dioxide (21.6-31.8) mmol/L Anion Gap (4.00-12.00) mmol/L BUN/Creatinine Ratio (12.00-20.00) Ratio POC Glucose (mg/dL) 151 H 137 H (70-110) mg/dL 04/24/24 04/24/24 04/24/24 Range/Units 04:40 06:27 12:01 MCH (27.0-32.0) pg MCHC (32.0-37.0) g/dL RDW (11.5-14.5) % Lymphocytes # (0.90-5.00) X 10*3/uL Potassium 3.3 L (3.5-5.5) mmol/L Carbon Dioxide 21.5 L (21.6-31.8) mmol/L Anion Gap 14.50 H (4.00-12.00) mmol/L BUN/Creatinine Ratio 20.90 H (12.00-20.00) Ratio POC Glucose (mg/dL) 125 H 142 H (70-110) mg/dL Assessment and Plan (1) Ulcer of left foot due to type 2 diabetes mellitus Current Visit: Yes Status: Acute Code(s): E11.621 - TYPE 2 DIABETES MELLITUS WITH FOOT ULCER; L97.529 - NON-PRESSURE CHRONIC ULCER OTH PRT LEFT FOOT W UNSP SEVERITY SNOMED Code(s): 05447325080170185 (2) Allergy to multiple antibiotics Current Visit: No Status: Acute Code(s): Z88.1 - ALLERGY STATUS TO OTHER ANTIBIOTIC AGENTS SNOMED Code(s): 362228124 (3) Left leg cellulitis Current Visit: No Status: Acute Code(s): L03.116 - CELLULITIS OF LEFT LOWER LIMB SNOMED Code(s): 57329462568786274 (4) Leukocytosis Current Visit: No Status: Acute Code(s): D72.829 - ELEVATED WHITE BLOOD CELL COUNT, UNSPECIFIED SNOMED Code(s): 524767062 Plan: 1patient presented to hospital with sepsis in this patient who did have a fever tachycardia elevated white count source likely left lower extremity cellulitis likely from gram-positive skin ra underlying gram-negative infection antibiotics currently patient also noticed to have elevated liver enzymes underlying hepatobiliary source not entirely excluded 2-patient with multiple antibiotic ALLERGIES that would limit the number of antibiotic safe to use 3-patient white count normalized and fever has resolved culture has been negative so far 4-patient has shown clinical improvement with cefepime, plan is to finish therapy with oral Keflex x 7 days on discharge discussed with the DIGGING MACHINE OPERATOR for admit ting team working on discharge Dictation was produced using [employer] dictation software. please excuse any grammatical, word or spelling errors. Time with Patient: Less than 30
[2024-04-24 16:47] LABS: Glucose,Whole Blood 131 mg/dL (70-110)
--- NOTE | 2024-04-24 18:28 | P.PN ---
Subjective Progress Note Date: 04/24/24 Patient was initially seen by Dr. Broderick Cazares. Please refer to his note for details. Patient is a 48-year-old female known to me in the past for seizure disorder, who has acute cellulitis. Patient had confusion and EEG reviewed by Dr. Cazares showed epileptiform discharges on left temporal/frontal. Her dose of Vimpat was increased from 50 mg twice daily up to 100 mg twice daily. Today I came to see the patient. Patient appears acutely delirious. Very confused. Patient apparently hallucinating, saying "can you make sure there are clips in a baby", pointing to the cupboard. Patient states "open the door". Patient at time for no reason states "red fire trucks". Patient admits to having "I have a major headache going on". Patient is very confused. Talks tangential. Patient is talking to herself loudly. Some of the work-up during this hospital visit consisted of: Her Tmax is 100.4F once during this hospital visit but has resolved Initial wbc is 12.7K and most recent is 10.33K. Now resolved Most recent glucose is 86 and that is POC. There is minimal elevation of AST and ALT Hemoglobin A1c 7.5 CT of the head is reported as no acute intracranial abnormality. I personally reviewed CT and felt there is some motion artifact but agree with report. Ammonia <9 Vitamin B12: 968 TSH: 6.860 Free T4: 1.60 Preliminary Routine EEG: Is abnormal. The background is mild encephalopathy. Has epileptiform discharges over the left temporal/frontal. No seizure. Objective - Vital Signs Vital signs: Vital Signs Temp 98.8 F 04/24/24 14:44 Pulse 112 H 04/24/24 17:36 Resp 19 04/24/24 14:44 BP 122/86 04/24/24 17:36 Pulse Ox 97 04/24/24 14:44 FiO2 Intake & Output 04/23/24 04/24/24 04/24/24 18:59 06:59 18:59 Intake Total 795.538 Output Total 2100 700 1100 Balance -1304.462 -700 -1100 Intake: Intake, IV Titration 95.538 Amount Heparin Sod,Pork in 0.45% 95.538 NaCl 25,000 unit In 0.45 % NaCl 1 250ml.bag @ 8. 679 UNITS/KG/HR 9.999 mls /hr IV .Q24H [facility] Rx#: [id number] Oral 700 Output: Urine 2100 700 1100 Other: Voiding Method External Catheter External Catheter External Catheter # Voids 4 1 # Bowel Movements 1 - Exam Patient appears acutely delirious. Very confused. Patient apparently hallucinating, saying "can you make sure there are clips in a baby", pointing to the cupboard. Patient states "open the door". Patient at time for no reason states "red fire trucks". Patient admits to having "I have a major headache going on". Patient is very confused. Talks tangential. Patient is talking to herself loudly. Patient knows that she is in [facility] but believes that she is in [place] and sees some address which is not very clear. She is constantly talking to herself watching the TV. She for no reason said "Sultana", "the 80-year-old". Pupils are equal, round and reactive to light, visual nieves could not be tested reliably, as patient is very confused. Face is symmetric and tongue protrudes midline. On muscle strength testing, the strength is normal in the arms distally and pr oximally. Patient has left all toes amputation at the midfoot. Patient has right below- knee amputation. Her left leg appears very red, edematous. - Labs CBC & Chem 7: 04/24/24 04:40 04/24/24 04:40 Labs: Abnormal Lab Results - Last 24 Hours (Table) 04/23/24 04/24/24 04/24/24 Range/Units 21:21 04:40 04:40 MCH 24.9 L (27.0-32.0) pg MCHC 30.3 L (32.0-37.0) g/dL RDW 21.8 H (11.5-14.5) % Lymphocytes # 0.55 L (0.90-5.00) X 10*3/uL Potassium 3.3 L (3.5-5.5) mmol/L Carbon Dioxide 21.5 L (21.6-31.8) mmol/L Anion Gap 14.50 H (4.00-12.00) mmol/L BUN/Creatinine Ratio 20.90 H (12.00-20.00) Ratio POC Glucose (mg/dL) 137 H (70-110) mg/dL 04/24/24 04/24/24 04/24/24 Range/Units 06:27 12:01 16:45 MCH (27.0-32.0) pg MCHC (32.0-37.0) g/dL RDW (11.5-14.5) % Lymphocytes # (0.90-5.00) X 10*3/uL Potassium (3.5-5.5) mmol/L Carbon Dioxide (21.6-31.8) mmol/L Anion Gap (4.00-12.00) mmol/L BUN/Creatinine Ratio (12.00-20.00) Ratio POC Glucose (mg/dL) 125 H 142 H 131 H (70-110) mg/dL Assessment and Plan Assessment: This is a 48-year-old woman who was sent from her nursing facility because of confusion, slight elevated fever and had elevated white blood cell. ID is on board and they felt the patient has cellulitis. Patient is here multiple times in our facility. Encephalopathy and seems more septic and there is a concern is due to cellulitis. CT head is unremarkable for acute process. Leukocytosis has resolved and no further fevers. Mentation is drastically better. Preliminary EEG: Showed mild encephalopathy and epileptiform discharges over the left temporal/frontal region but no seizure---as stated confusion has resolved and is back to back to base line. Acute delirium, likely due to reasons mentioned below. 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 Plan: Patient continues to be acutely delirious. Evaluate for possible infectious source or cause of metabolic encephalopathy. Unable to obtain MRI Brain since patient has ICD. CT head is unremarkable for acute process. Preliminary Routine EEG: Is abnormal. The background is mild encephalopathy. Has epileptiform discharges over the left temporal/frontal. No seizure. Patient is on Vimpat home medication 50 mg twice daily and Dr. Cazares has in creased the dose up to 100mg bid. ID team is on board and they feel the patient has acute cellulitis. I.D. does not feel Lumbar puncture is needed. From neurological perspective. Did not require antiviral. She is on home eliquis Blood cultures is no growth after 48 hours. Will defer the rest of the medical management the primary and other specialist
--- NOTE | 2024-04-24 19:48 | P.PN ---
Subjective Progress Note Date: 04/24/24 This is a 48-year-old female who resides at [facility] came in for altered mentation with concerns of left lower extremity cellulitis with a nonhealing diabetic ulcer as well. Patient maintained on antibiotics with infectious disease following and swelling and redness have significantly improved on the left lower extremity will continue current regimen and likely transition to oral Keflex on discharge. Patient to continue with local wound care with Triad cream and dressing changes. Encourage patient elevate lower extremities while at rest. Patient having intermittent periods of confusion and neurology following has undergone workup although unable to obtain MRI. Patient is continued on s eizure medication and Vimpat has been increased. Recommend holding narcotics for now to assess mentation. Follow-up on repeat labs and replace electrolytes per protocol. Plan is to return to [facility] and will require insurance authorization which is currently pending. Review of systems: Constitutional: No reports of fatigue, fever, or chills Cardiovascular: No reports of chest pain or palpitations Respiratory: No reports of shortness of breath or cough GI: No reports of nausea, no reports of vomiting, no diarrhea : No reports of dysuria or retention Neurovascular: reports of generalized weakness All medications have been reviewed PHYSICAL EXAMINATION: GENERAL: The patient is alert and oriented x2, confused intermittently, Well developed, appears elderly, obese HEENT: Pupils are round and equally reacting to light. EOMI. no scleral icterus. No conjunctival pallor. Normocephalic, atraumatic. No pharyngeal erythema. No thyromegaly. CARDIOVASCULAR: S1 and S2 muffled PULMONARY: diminished breath sounds bilaterally with no wheezing or rhonchi noted. ABDOMEN: soft. Nontender on exam. obese. non-distended, normoactive bowel sounds. No palpable organomegaly. MUSCULOSKELETAL: No joint swelling or deformity. EXTREMITIES: No cyanosis, clubbing, or pedal edema. Left lower extremity redness and swelling significantly improved with dressing that is currently dry and intact around the foot, right BKA noted NEUROLOGICAL: Gross neurological examination did not reveal any focal deficits. Somewhat confused. Diffuse weakness SKIN: No rashes. Assessment: -Altered mental status, acute metabolic encephalopathy secondary to acute left lower extremity cellulitis, present on admission, improved -Cellulitis, left lower extremity; present on admission -Sepsis, present on admission secondary to left lower extremity cellulitis -Chronic nonhealing left foot diabetic ulcer -History of right BKA previously -Mild YOLA, improving -Hypertension history -Seizure disorder history -Diabetes mellitus -COPD/asthma; not in exacerbation -History of CVA/TIA -DVT prophylaxis; Eliquis -GI prophylaxis - full code Plan: Recommend to continue with current medications and management with infectious disease following. Patient currently maintained on IV cefepime and will transition to Keflex on discharge. Continue wound care with Triad cream and dressing changes and outpatient follow-up with the wound care center Recommend holding narcotics including [place] and continue with Tylenol for pain as patient's mentation is waxing and waning and somewhat confused today. Neurology following making adjustments to medications and Vimpat has been increased. Patient will need close outpatient follow-up with neurologist Patient resides at [facility] with plans on returning and will require insurance authorization. Will submit for authorization which is currently pending at this time. Due to multiple complex medical issues, prognosis is guarded The impression and plan of care has been dictated by Aretha Silver, nurse practitioner as directed. Dr. Christo MD I have performed a history and examination and MDM of this patient, discussed the same with the dictator, and agree with the dictator's assessment and plan as written ,documented as a scribe. Based on total visit time, I have performed more than 50% of the visit. Any additional findings or plans will be noted. Objective - Vital Signs Vital signs: Vital Signs Temp 98.8 F 04/24/24 07:45 Pulse 84 04/24/24 09:25 Resp 18 04/24/24 08:00 BP 109/61 04/24/24 08:50 Pulse Ox 97 04/24/24 07:45 FiO2 Intake & Output 04/23/24 04/24/24 04/24/24 18:59 06:59 18:59 Intake Total 795.538 Output Total 2100 700 500 Balance -1304.462 -700 -500 Intake: Intake, IV Titration 95.538 Amount Heparin Sod,Pork in 0.45% 95.538 NaCl 25,000 unit In 0.45 % NaCl 1 250ml.bag @ 8. 679 UNITS/KG/HR 9.999 mls /hr IV .Q24H JAN Rx#: [id number] Oral 700 Output: Urine 2100 700 500 Other: Voiding Method External Catheter External Catheter External Catheter # Voids 4 # Bowel Movements 1 - Labs CBC & Chem 7: 04/24/24 04:40 04/24/24 04:40 Labs: Abnormal Lab Results - Last 24 Hours (Table) 04/23/24 04/23/24 04/24/24 Range/Units 16:24 21:21 04:40 MCH 24.9 L (27.0-32.0) pg MCHC 30.3 L (32.0-37.0) g/dL RDW 21.8 H (11.5-14.5) % Lymphocytes # 0.55 L (0.90-5.00) X 10*3/uL Potassium (3.5-5.5) mmol/L Carbon Dioxide (21.6-31.8) mmol/L Anion Gap (4.00-12.00) mmol/L BUN/Creatinine Ratio (12.00-20.00) Ratio POC Glucose (mg/dL) 151 H 137 H (70-110) mg/dL 04/24/24 04/24/24 04/24/24 Range/Units 04:40 06:27 12:01 MCH (27.0-32.0) pg MCHC (32.0-37.0) g/dL RDW (11.5-14.5) % Lymphocytes # (0.90-5.00) X 10*3/uL Potassium 3.3 L (3.5-5.5) mmol/L Carbon Dioxide 21.5 L (21.6-31.8) mmol/L Anion Gap 14.50 H (4.00-12.00) mmol/L BUN/Creatinine Ratio 20.90 H (12.00-20.00) Ratio POC Glucose (mg/dL) 125 H 142 H (70-110) mg/dL
[2024-04-24 20:32] LABS: Glucose,Whole Blood 121 mg/dL (70-110)
[2024-04-25 05:21] LABS: African American GFR (CKD) >90 (>60 ml/min/1.73 sqM); Anion Gap 11 mmol/L; Blood Urea Nitrogen 24 mg/dL (7-17); Calcium 9.5 mg/dL (8.4-10.2); Carbon Dioxide 24 mmol/L (22-30); Chloride 109 mmol/L (98-107); Glucose 87 mg/dL (74-99); Magnesium 1.9 mg/dL (1.6-2.3); Non-African American GFR(CKD) 80 (>60 ml/min/1.73 sqM); Potassium 3.7 mmol/L (3.5-5.1); Sodium 144 mmol/L (137-145)
[2024-04-25 05:32] LABS: Anisocytosis Moderate; Basophils # (A) 0.1 k/uL (0-0.2); Basophils % (A) 2 %; Eosinophils # (A) 0.3 k/uL (0-0.7); Eosinophils % (A) 5 %; HCT 44.5 % (34.0-46.0); HGB 13.2 gm/dL (11.4-16.0); Hypochromasia Marked; Lymphocytes # (A) 0.8 k/uL (1.0-4.8); Lymphocytes % (A) 14 %; MCH 24.6 pg (25.0-35.0); MCHC 29.8 g/dL (31.0-37.0); MCV 82.7 fL (80.0-100.0); Mean Platelet Volume 8.9; Microcytosis Slight; Monocytes # (A) 0.4 k/uL (0-1.0); Monocytes % (A) 7 %; Neutrophils # (A) 3.8 k/uL (1.3-7.7); Neutrophils % (A) 68 %; Platelet Count 245 k/uL (150-450); RBC 5.38 m/uL (3.80-5.40); RDW 20.1 % (11.5-15.5); WBC 5.5 k/uL (3.8-10.6)
[2024-04-25 05:34] LABS: Glucose,Whole Blood 86 mg/dL (70-110)
[2024-04-25 11:47] LABS: Glucose,Whole Blood 118 mg/dL (70-110)
[2024-04-25 16:40] LABS: Glucose,Whole Blood 118 mg/dL (70-110)
[2024-04-25 20:24] LABS: Glucose,Whole Blood 111 mg/dL (70-110)
[2024-04-26 05:37] LABS: Glucose,Whole Blood 78 mg/dL (70-110)
--- NOTE | 2024-04-26 07:08 | P.PN ---
Subjective Progress Note Date: 04/25/24 This is a 48-year-old female who resides at [facility] [place] came in for altered mentation with concerns of left lower extremity cellulitis with a nonhealing diabetic ulcer as well. Patient maintained on antibiotics with infectious disease following and swelling and redness have significantly improved on the left lower extremity will continue current regimen and likely transition to oral Keflex on discharge. Patient to continue with local wound care with Triad cream and dressing changes. Encourage patient elevate lower extremities while at rest. Patient having intermittent periods of confusion and neurology following has undergone workup although unable to obtain MRI. Patient is continued on s eizure medication and Vimpat has been increased. Recommend holding narcotics for now to assess mentation. Follow-up on repeat labs and replace electrolytes per protocol. Plan is to return to [facility] and will require insurance authorization which is currently pending. 04/25/2024 Patient seen and evaluated in follow-up today currently sitting up in the chair and appears improved from yesterday. Patient continues to be intermittently confused and recommend holding all narcotic agents including gabapentin. Patient is continued on antibiotics with infectious disease following and will continue current regimen along with local wound care. Patient reports improvements in moving her lower extremities and was able to work with physical therapy. Patient requires insurance authorization to return to [facility]. Patient will continue on IV antibiotics while hospitalized and transition to oral Keflex on discharge. Infectious diseases following and will continue local wound care. Elevate lower extremities while at rest. Review of systems: Constitutional: No reports of fatigue, fever, or chills Cardiovascular: No reports of chest pain or palpitations Respiratory: No reports of shortness of breath or cough GI: No reports of nausea, no reports of vomiting, no diarrhea : No reports of dysuria or retention Neurovascular: reports of generalized weakness All medications have been reviewed PHYSICAL EXAMINATION: GENERAL: The patient is alert and oriented x2, confused intermittently although improved from yesterday, Well developed, appears elderly, obese HEENT: Pupils are round and equally reacting to light. EOMI. no scleral icterus. No conjunctival pallor. Normocephalic, atraumatic. No pharyngeal erythema. No thyromegaly. CARDIOVASCULAR: S1 and S2 muffled PULMONARY: diminished breath sounds bilaterally with no wheezing or rhonchi noted. ABDOMEN: soft. Nontender on exam. obese. non-distended, normoactive bowel sounds. No palpable organomegaly. MUSCULOSKELETAL: No joint swelling or deformity. EXTREMITIES: No cyanosis, clubbing, or pedal edema. Left lower extremity redness and swelling significantly improved with dressing that is currently dry and intact around the foot, right BKA noted NEUROLOGICAL: Gross neurological examination did not reveal any focal deficits. Somewhat confused. Diffuse weakness SKIN: No rashes. Assessment: -Altered mental status, acute metabolic encephalopathy secondary to acute left lower extremity cellulitis, present on admission, improved -Cellulitis, left lower extremity; present on admission -Sepsis, present on admission secondary to left lower extremity cellulitis -Chronic nonhealing left foot diabetic ulcer -History of right BKA previously -Mild YOLA, improving -Hypertension history -Seizure disorder history -Diabetes mellitus -COPD/asthma; not in exacerbation -History of CVA/TIA -DVT prophylaxis; Eliquis -GI prophylaxis - full code Plan: Recommend to continue with current medications and management with infectious disease following. Patient currently maintained on IV cefepime and will transition to Keflex on discharge. Continue wound care with Triad cream and dressing changes and outpatient follow-up with the wound care center Recommend holding narcotics including [place] and continue with Tylenol for pain as patient's mentation is waxing and waning and remains intermittently confused although much more appropriate today. Neurology following making adjustments to medications and Vimpat has been inc reased. Patient will need close outpatient follow-up with neurologist Patient resides at [facility] with plans on returning and will require insurance authorization. Will submit for authorization which is currently pending at this time. Due to multiple complex medical issues, prognosis is guarded Possible discharge planning in the next 24 to 48 hours The impression and plan of care has been dictated by Aretha Silver, nurse practitioner as directed. Dr. Christo MD I have performed a history and examination and MDM of this patient, discussed the same with the dictator, and agree with the dictator's assessment and plan as written ,documented as a scribe. Based on total visit time, I have performed more than 50% of the visit. Any additional findings or plans will be noted. Objective - Vital Signs Vital signs: Vital Signs Temp 97.4 F L 04/26/24 02:13 Pulse 94 04/26/24 02:13 Resp 17 04/26/24 02:13 BP 94/56 04/26/24 02:13 Pulse Ox 98 04/26/24 02:13 FiO2 Intake & Output 04/25/24 04/26/24 04/26/24 18:59 06:59 18:59 Other: Voiding Method External Catheter Diaper # Voids 1 3 - Labs CBC & Chem 7: 04/25/24 04:49 04/25/24 04:49 Labs: Abnormal Lab Results - Last 24 Hours (Table) 04/25/24 04/25/24 04/25/24 Range/Units 11:46 16:39 20:23 POC Glucose (mg/dL) 118 H 118 H 111 H (70-110) mg/dL Microbiology - Last 24 Hours (Table) 04/19/24 15:46 Blood Culture - Final Blood 04/19/24 15:20 Blood Culture - Final Blood
[2024-04-26 11:35] LABS: Glucose,Whole Blood 116 mg/dL (70-110)
--- NOTE | 2024-04-26 15:25 | P.DS ---
Providers Date of admission: 04/19/24 16:25 Expected date of discharge: 04/26/24 Attending physician: Latisha Tucker Consults: 04/19/24 23:23 Consult Physician Routine Consulting Provider: Casi Blake Consult Reason/Comments: Cellulitis Do you want consulting provider notified?: Yes 04/20/24 15:28 Consult Physician Routine Consulting Provider: Broderick Cazares Consult Reason/Comments: AMS, hallucinations, talking to self, excessive repetition of words Do you want consulting provider notified?: Yes Primary care physician: Dylan Causey Hospital Course: Final diagnosis -Altered mental status, acute metabolic encephalopathy secondary to acute left lower extremity cellulitis, present on admission, improved -Cellulitis, left lower extremity; present on admission -Sepsis, present on admission secondary to left lower extremity cellulitis -Chronic nonhealing left foot diabetic ulcer -History of right BKA previously -Mild YOLA, improving -Hypertension history -Seizure disorder history -Diabetes mellitus -COPD/asthma; not in exacerbation -History of CVA/TIA -DVT prophylaxis; Eliquis -GI prophylaxis - full code Discharge disposition Patient is being discharged in a stable condition with guarded prognosis to [facility] where she resides. Patient will follow-up with Dr. Causey in the outpatient setting upon discharge. Patient is to continue with antibiotics for the next 7 days per ID recommendations and wound care with close outpatient follow-up with the wound care center as scheduled. Total time taken is greater than 35 minutes. Hospital course This is a 48-year-old female who was recently admitted with increased confusion and altered mental status with concerns of left lower extremity cellulitis. Patient being followed by infectious disease maintained on antibiotics showing improvements clinically and will continue with oral Keflex on discharge for 1 week course and continue with local wound care at the wound care center and Triad cream. Continue with dressing changes and outpatient follow-up. Elevate lower extremity while at rest. Patient having some intermittent periods of confusion with concerns of narcotic medication would recommend holding [place] as mentation improved after this. Patient does take gabapentin 100 mg daily. Patient has been cleared by consultations for discharge with outpatient follow- up. Please refer to infectious disease documentation for further HPI. Patient to follow-up with neurologist outpatient. Currently no reports of chest pain, shortness of breath, or palpitations. Patient is afebrile. No reports of nausea or vomiting and patient is tolerating diet. Patient will be going to [facility] today. Guarded prognosis and high risk for readmission given patient's significant comorbidities. Recommend repeat labs in 2 to 3 days to monitor kidney functions including BMP, CBC, magnesium Physical exam: Gen: This is a 48-year-old female who is awake, alert and oriented x 2, well- developed, well-nourished, obese HEENT: Head is atraumatic, normocephalic. Pupils equal, round. Sclerae is anicteric. NECK: Supple. No JVD. No lymphadenopathy. No thyromegaly. LUNGS: Diminished breath sounds bilaterally otherwise clear to auscultation. No wheezes or rhonchi. No intercostal retractions. HEART: S1, S2 are muffled ABDOMEN: Soft. Obese bowel sounds are present. No masses. No tenderness. EXTREMITIES: No pedal edema. No calf tenderness. Right BKA, left lower extremity redness and swelling significantly improved with a nonhealing ulcer on the left plantar aspect NEUROLOGICAL: Patient is awake, alert and oriented x2. Cranial nerves 2 through 12 are grossly intact. Diffusely weak Please refer to medication reconciliation sheet for a list of medications. The impression and plan of care has been dictated by Aretha Silver, Nurse Practitioner as directed. Dr. Christo MD I have performed a history and examination and MDM of this patient, discussed the same with the dictator, and agree with the dictator's assessment and plan as written ,documented as a scribe. Based on total visit time, I have performed more than 50% of the visit. Patient Condition at Discharge: Good Plan - Discharge Summary Discharge Rx Participant: No New Discharge Prescriptions: New QUEtiapine [SEROquel] 12.5 mg PO HS tab Potassium Chloride ER [K-Dur 20] 20 meq PO DAILY #30 tab Cephalexin [Keflex] 500 mg PO Q8HR 7 Days #21 cap Lacosamide [Vimpat] 100 mg PO BID@0800,2100 #8 tab Continue Insulin Glargine [Lantus Vial] 10 unit SQ DAILY@0800 Insulin Aspart [NovoLOG Flexpen] See Protocol SQ ACHS@07,11,1630,2130 Acetaminophen Tab [Tylenol] 650 mg PO Q6HR PRN tab PRN Reason: Mild Pain Or Fever > 100.5 Pantoprazole [Protonix] 40 mg PO DAILY@0600 Magnesium Hydroxide [Milk of Magnesia Concentrate] 7,200 mg PO DAILY PRN PRN Reason: Constipation bisacodyL [Dulcolax] 10 mg RECTAL DAILY PRN PRN Reason: Constipation Budesonide [Pulmicort] 0.5 mg INHALATION RT-BID@08,17 Albuterol Nebulized [Ventolin Nebulized] 2.5 mg INHALATION RT-Q6H PRN PRN Reason: Shortness Of Breath Sacubitril/Valsartan [Entresto 49 mg-51 mg Tablet] 1 tab PO BID@0800,1700 Magnesium Oxide [Magox 400] 400 mg PO BID@0800,1700 Bumetanide [BUMEX] 1 mg PO BID@0800,1700 Multivitamins, Thera [Multivitamin (formulary)] 1 tab PO DAILY@1700 Gabapentin [Neurontin] 100 mg PO DAILY@0800 #2 cap Gabapentin [Neurontin] 200 mg PO HS@2100 #2 cap Melatonin 4.5 mg PO HS Na Phos,M-B/Na Phos,Di-Ba [Fleet Adult] 133 ml RECTAL DAILY PRN PRN Reason: Constipation Thiamine [Vitamin B-1] 100 mg PO DAILY@0800 Spironolactone [Aldactone] 12.5 mg PO DAILY@0800 Folic Acid 1 mg PO DAILY@0800 Empagliflozin [Jardiance] 10 mg PO DAILY@0800 Apixaban [Eliquis] 5 mg PO BID@0800,1700 Discontinued Lacosamide [Vimpat] 50 mg PO BID@0800,2100 Doxycycline Hyclate 100 mg PO BID@0800,1700 HYDROcodone/APAP 5-325MG [[place] 5-325] 1 tab PO Q6H PRN PRN Reason: Pain Discharge Medication List Insulin Glargine [Lantus Vial] 10 unit SQ DAILY@0800 04/30/19 [History] Insulin Aspart [NovoLOG Flexpen] See Protocol SQ ACHS@07,11,1630,2130 05/07/23 [History] Acetaminophen Tab [Tylenol] 650 mg PO Q6HR PRN tab 05/13/23 [Rx] Pantoprazole [Protonix] 40 mg PO DAILY@0600 01/29/24 [History] Albuterol Nebulized [Ventolin Nebulized] 2.5 mg INHALATION RT-Q6H PRN 04/19/24 [History] Apixaban [Eliquis] 5 mg PO BID@0800,17004/19/24 [History] Budesonide [Pulmicort] 0.5 mg INHALATION RT-BID@08,17 04/19/24 [History] Bumetanide [BUMEX] 1 mg PO BID@0800,17004/19/24 [History] Empagliflozin [Jardiance] 10 mg PO DAILY@0804/19/24 [History] Folic Acid 1 mg PO DAILY@0804/19/24 [History] Magnesium Hydroxide [Milk of Magnesia Concentrate] 7,200 mg PO DAILY PRN 04/19/24 [History] Magnesium Oxide [Magox 400] 400 mg PO BID@0800,17004/19/24 [History] Melatonin 4.5 mg PO HS 04/19/24 [History] Multivitamins, Thera [Multivitamin (formulary)] 1 tab PO DAILY@169904/19/24 [History] Na Phos,M-B/Na Phos,Di-Ba [Fleet Adult] 133 ml RECTAL DAILY PRN 04/19/24 [History] Sacubitril/Valsartan [Entresto 49 mg-51 mg Tablet] 1 tab PO BID@0800,1700 04/19/24 [History] Spironolactone [Aldactone] 12.5 mg PO DAILY@0804/19/24 [History] Thiamine [Vitamin B-1] 100 mg PO DAILY@0804/19/24 [History] bisacodyL [Dulcolax] 10 mg RECTAL DAILY PRN 04/19/24 [History] Cephalexin [Keflex] 500 mg PO Q8HR 7 Days #21 cap 04/24/24 [Rx] Gabapentin [Neurontin] 100 mg PO DAILY@0800 #2 cap 04/24/24 [Rx] Gabapentin [Neurontin] 200 mg PO HS@2100 #2 cap 04/24/24 [Rx] Lacosamide [Vimpat] 100 mg PO BID@0800,2100 #8 tab 04/24/24 [Rx] QUEtiapine [SEROquel] 12.5 mg PO HS tab 04/24/24 [Rx] Potassium Chloride ER [K-Dur 20] 20 meq PO DAILY #30 tab 04/26/24 [Rx] Follow up Appointment(s)/Referral(s): Dylan Causey MD [Primary Care Provider[facility] [NON-STAFF] - 1 Week Ambulatory/Diagnostic Orders: Basic Metabolic Panel [LAB.AMB] Time Frame: 3 Days, Location: None Selected Activity/Diet/Wound Care/Special Instructions: Patient is returning to [facility] Activity as tolerated Follow-up with primary care provider on discharge Continue with local wound care with Triad cream Continue heart healthy diabetic diet dysphagia chopped and finger foods Follow-up with the wound care center Continue to elevate lower extremity while at rest Continue monitoring Accu-Cheks before meals and at bedtime and continue with current insulin regimen Repeat labs in 2 to 3 days to monitor BMP for hypokalemia Discharge Disposition: TRANSFER TO SNF/ECF
--- NOTE | 2024-04-26 16:32 | P.PN ---
Subjective Progress Note Date: 04/25/24 Principal diagnosis: Reason for follow-up is left lower extremity cellulitis Patient is a 48-year-old female with a past medical history significant for diabetes mellitus patient did have a history of diabetic foot infection requiring right below the knee amputation also have a chronic nonhealing wound on the plantar aspect of the left foot, presented to hospital with significant mental status changes has been diagnosed with a left lower extremity cellulitis. On today's evaluation that is 04/25/2024,the patient is more awake and alert and denies any fever or any chills, patient is breathing comfortably on room air, the patient denies chest pain shortness of breath and no significant cough, patient denies abdominal pain, no nausea vomiting or diarrhea. Patient left lower extremity swelling redness has decreased no drainage Patient white count is 5.5, creatinine 0.86 Objective - Vital Signs Vital signs: Vital Signs Temp 98.1 F 04/25/24 07:39 Pulse 88 04/25/24 09:26 Resp 16 04/25/24 07:39 BP 114/72 04/25/24 07:39 Pulse Ox 99 04/25/24 07:39 FiO2 Intake & Output 04/24/24 04/25/24 04/25/24 18:59 06:59 18:59 Intake Total 100 Output Total 1100 300 Balance -1000 -300 Intake: Intake, IV Titration 100 Amount Cefepime 2 gm In Sodium 100 Chloride 0.9% 100 ml @ 25 mls/hr IVPB Q8H [facility] Rx#: [id number] Output: Urine 1100 300 Other: Voiding Method External Catheter External Catheter # Voids 1 2 1 # Bowel Movements 1 - Exam GENERAL DESCRIPTION: Middle-aged female lying in bed in no distress RESPIRATORY SYSTEM: Unlabored breathing , decreased breath sounds at bases HEART: S1 S2 regular rate and rhythm , ABDOMEN: Soft , no tenderness EXTREMITIES: Left leg redness has decreased in intensity no drainage - Labs CBC & Chem 7: 04/25/24 04:49 04/25/24 04:49 Labs: Abnormal Lab Results - Last 24 Hours (Table) 04/24/24 04/24/24 04/25/24 Range/Units 16:45 20:31 04:49 MCH 24.6 L (25.0-35.0) pg MCHC 29.8 L (31.0-37.0) g/dL RDW 20.1 H (11.5-15.5) % Lymphocytes # 0.8 L (1.0-4.8) k/uL Chloride (98-107) mmol/L BUN (7-17) mg/dL POC Glucose (mg/dL) 131 H 121 H (70-110) mg/dL 04/25/24 04/25/24 Range/Units 04:49 11:46 MCH (25.0-35.0) pg MCHC (31.0-37.0) g/dL RDW (11.5-15.5) % Lymphocytes # (1.0-4.8) k/uL Chloride 109 H (98-107) mmol/L BUN 24 H (7-17) mg/dL POC Glucose (mg/dL) 118 H (70-110) mg/dL Microbiology - Last 24 Hours (Table) 04/19/24 15:46 Blood Culture - Final Blood 04/19/24 15:20 Blood Culture - Final Blood Assessment and Plan (1) Allergy to multiple antibiotics Status: Acute Code(s): Z88.1 - ALLERGY STATUS TO OTHER ANTIBIOTIC AGENTS SNOMED Code(s): 167888901 (2) Diabetic foot ulcer Status: Acute Code(s): E11.621 - TYPE 2 DIABETES MELLITUS WITH FOOT ULCER; L97.509 - NON-PRESSURE CHRONIC ULCER OTH PRT UNSP FOOT W UNSP SEVERITY SNOMED Code(s): 297846075 (3) Left leg cellulitis Status: Acute Code(s): L03.116 - CELLULITIS OF LEFT LOWER LIMB SNOMED Code(s): 07833245953743115 (4) Sepsis Status: Acute Code(s): A41.9 - SEPSIS, UNSPECIFIED ORGANISM SNOMED Code(s): 41946546 Plan: 1patient presented to hospital with sepsis in this patient who did have a fever tachycardia elevated white count source likely left lower extremity cellulitis likely from gram-positive skin ra underlying gram-negative infection antibiotics currently patient also noticed to have elevated liver enzymes underlying hepatobiliary source not entirely excluded 2-patient with multiple antibiotic ALLERGIES that would limit the number of antibiotic safe to use 3-patient is slowly clinical improvement continue with cefepime while inpatient and will transition to antibiotic on discharge discussed with admitting team Dictation was produced using [employer] dictation software. please excuse any grammatical, word or spelling errors.
--- NOTE | 2024-04-26 16:33 | P.PN ---
Subjective Progress Note Date: 04/26/24 Principal diagnosis: Reason for follow-up is left lower extremity cellulitis Patient is a 48-year-old female with a past medical history significant for diabetes mellitus patient did have a history of diabetic foot infection requiring right below the knee amputation also have a chronic nonhealing wound on the plantar aspect of the left foot, presented to hospital with significant mental status changes has been diagnosed with a left lower extremity cellulitis. On today's evaluation that is 04/26/2024,the patient remains to be afebrile, patient is on room air not requiring supplemental oxygen and denies any shortness of breath no chest pain or cough.Patient denies having any nausea or vomiting, no abdominal pain and no diarrhea has been reported, patient denies pain to the lower extremity redness has improved to resolved. No new labs has been obtained today blood culture negative Objective - Vital Signs Vital signs: Vital Signs Temp 98 F 04/26/24 07:03 Pulse 88 04/26/24 09:46 Resp 20 04/26/24 07:03 BP 118/82 04/26/24 07:03 Pulse Ox 99 04/26/24 07:03 FiO2 Intake & Output 04/25/24 04/26/24 04/26/24 18:59 06:59 18:59 Other: Voiding Method External Catheter Diaper Diaper Incontinent # Voids 1 3 # Bowel Movements 1 - Exam GENERAL DESCRIPTION: Middle-aged female lying in bed in no distress RESPIRATORY SYSTEM: Unlabored breathing , decreased breath sounds at bases HEART: S1 S2 regular rate and rhythm , ABDOMEN: Soft , no tenderness EXTREMITIES: Left leg redness has resolved still has some swelling to the leg - Labs CBC & Chem 7: 04/25/24 04:49 04/25/24 04:49 Labs: Abnormal Lab Results - Last 24 Hours (Table) 04/25/24 04/25/24 04/26/24 Range/Units 16:39 20:23 11:33 POC Glucose (mg/dL) 118 H 111 H 116 H (70-110) mg/dL Assessment and Plan (1) Allergy to multiple antibiotics Status: Acute Code(s): Z88.1 - ALLERGY STATUS TO OTHER ANTIBIOTIC AGENTS SNOMED Code(s): 157153385 (2) Diabetic foot ulcer Status: Acute Code(s): E11.621 - TYPE 2 DIABETES MELLITUS WITH FOOT ULCER; L97.509 - NON-PRESSURE CHRONIC ULCER OTH PRT UNSP FOOT W UNSP SEVERITY SNOMED Code(s): 104329145 (3) Left leg cellulitis Status: Acute Code(s): L03.116 - CELLULITIS OF LEFT LOWER LIMB SNOMED Code(s): 72749068156675934 (4) Sepsis Status: Acute Code(s): A41.9 - SEPSIS, UNSPECIFIED ORGANISM SNOMED Code(s): 95377633 Plan: 1patient presented to hospital with sepsis in this patient who did have a fever tachycardia elevated white count source likely left lower extremity cellulitis likely from gram-positive skin ra underlying gram-negative infection antibiotics currently patient also noticed to have elevated liver enzymes underlying hepatobiliary source not entirely excluded 2-patient with multiple antibiotic ALLERGIES that would limit the number of antibiotic safe to use 3-patient has shown clinical improvement and left leg redness resolved she will finish therapy with oral Keflex x 7 days and close outpatient follow-up Dictation was produced using [employer] dictation software. please excuse any grammatical, word or spelling errors. Time with Patient: Less than 30
[2024-04-26 20:17] VITALS: BP 123/77; PULSE 90; RESP 18; TEMP 98.2
[2024-04-26 20:18] VITALS: BMI 39.7
== END 2024-04-26 14:58 | DRG 871 ==
LOC: EC 14:00 → 4SSUR 16:25
PROVIDERS: ADMIT Internal Medicine; ATTEND Internal Medicine
PROC: 4A10X4Z Monitoring of Central Nervous Electrical Activity, External Approach (ICD-10-PCS; principal; 2024-04-23)
DX: A41.9 Sepsis, unspecified organism (principal); G93.41 Metabolic encephalopathy; L03.116 Cellulitis of left lower limb; N17.9 Acute kidney failure, unspecified; I42.8 Other cardiomyopathies; E11.621 Type 2 diabetes mellitus with foot ulcer; L97.529 Non-pressure chronic ulcer of other part of left foot with unspecified severity; Z89.511 Acquired absence of right leg below knee; I50.9 Heart failure, unspecified; I11.0 Hypertensive heart disease with heart failure; Z88.0 Allergy status to penicillin; Z88.1 Allergy status to other antibiotic agents; G40.909 Epilepsy, unspecified, not intractable, without status epilepticus; I25.2 Old myocardial infarction; I48.91 Unspecified atrial fibrillation; Z79.01 Long term (current) use of anticoagulants; Z79.4 Long term (current) use of insulin; Z79.84 Long term (current) use of oral hypoglycemic drugs; Z79.899 Other long term (current) drug therapy; Z86.718 Personal history of other venous thrombosis and embolism; Z86.73 Personal history of transient ischemic attack (TIA), and cerebral infarction without residual deficits; Z95.810 Presence of automatic (implantable) cardiac defibrillator; Z99.3 Dependence on wheelchair; Z87.01 Personal history of pneumonia (recurrent); Z88.8 Allergy status to other drugs, medicaments and biological substances
CPT/HCPCS: 36415; 70450; 71046; 76705; 80048; 80053; 81001; 82140; 82607; 82746; 83036; 83605; 83735; 84439; 84443; 84484; 85025; 85610; 85730; 87040; 93005; 94640; 95816; 96361; 96365; 99285

== ENCOUNTER 2024-04-27 15:06 | Observation (INO) | payer MEDICARE ==
[2024-04-27 16:43] LABS: Anisocytosis Slight; HCT 48.3 % (34.0-46.0); HGB 14.5 gm/dL (11.4-16.0); Hypochromasia Marked; MCV 83.4 fL (80.0-100.0); Mean Platelet Volume 11.3; Platelet Count 248 k/uL (150-450); Poikilocytosis Slight; RBC 5.79 m/uL (3.80-5.40); RDW 19.9 % (11.5-15.5); WBC 8.4 k/uL (3.8-10.6)
[2024-04-27 17:35] LABS: ALT 34 U/L (4-34); African American GFR (CKD) 73 (>60 ml/min/1.73 sqM); Albumin 4.4 g/dL (3.5-5.0); Anion Gap 11 mmol/L; Blood Urea Nitrogen 25 mg/dL (7-17); Calcium 9.3 mg/dL (8.4-10.2); Carbon Dioxide 19 mmol/L (22-30); Chloride 108 mmol/L (98-107); Glucose 114 mg/dL (74-99); Non-African American GFR(CKD) 63 (>60 ml/min/1.73 sqM); Sodium 138 mmol/L (137-145); Total Bilirubin 1.2 mg/dL (0.2-1.3); Total Protein 8.1 g/dL (6.3-8.2)
[2024-04-27 17:36] LABS: Potassium 4.3 mmol/L (3.5-5.1)
[2024-04-27 17:37] LABS: AST 49 U/L (14-36); Alkaline Phosphatase 130 U/L (38-126)
[2024-04-27 17:41] LABS: Eosinophils # (M) 0.42 k/uL (0-0.7); Lymphocytes # (M) 0.76 k/uL (1.0-4.8); Monocytes # (M) 0.59 k/uL (0-1.0); Neutrophils # (M) 6.64 k/uL (1.3-7.7); Neutrophils % (M) 79 %; Nucleated Red Blood Cells 0 /100 WBC (0-0); Total Cells Counted 100
--- NOTE | 2024-04-27 18:50 | ED ---
General Adult HPI - General Chief complaint: Psychiatric Symptoms Stated complaint: Mental Health Time Seen by Provider: 04/27/24 15:15 Source: patient, EMS Mode of arrival: EMS - History of Present Illness Initial comments: 48-year-old female presents to the emergency department after she slit her wrists. Patient was discharged from the facility yesterday. Reading the patient's discharge summary she was having some delusions and hallucinations. She had a neurologic consultation. They thought the patient's encephalopathy was due to medical conditions. She was stable for discharge back to [facility] last night. It was reported that the patient self-inflicted superficial lacerations. When questioning the patient this she states it is because no one believes her that she has lung cancer. Patient does not have a history of lung cancer. Patient also mentions things in regards to having babies in the toilet. States that the last this happened was last week. She states that the staff at the facility also do not believe her about this. In the patient's history it does list bipolar. She apparently does not take anything for her mood. She does state to me that she wants to at this time. No other alleviating, precipitating or modifying factors - Related Data Home Medications Medication Instructions Recorded Confirmed Insulin Glargine [Lantus Vial] 10 unit SQ DAILY@0800 04/30/19 04/27/24 Insulin Aspart [NovoLOG Flexpen] See Protocol SQ 05/07/23 04/27/24 ACHS@07,11,1630,2130 Pantoprazole [Protonix] 40 mg PO DAILY@0600 01/29/24 04/27/24 Albuterol Nebulized [Ventolin 2.5 mg INHALATION RT-Q6H PRN 04/19/24 04/27/24 Nebulized] Apixaban [Eliquis] 5 mg PO BID@0800,1700 04/19/24 04/27/24 Budesonide [Pulmicort] 0.5 mg INHALATION RT-BID@08,17 04/19/24 04/27/24 Bumetanide [BUMEX] 1 mg PO BID@0800,1700 04/19/24 04/27/24 Empagliflozin [Jardiance] 10 mg PO DAILY@0800 04/19/24 04/27/24 Folic Acid 1 mg PO DAILY@0800 04/19/24 04/27/24 Magnesium Hydroxide [Milk of 7,200 mg PO DAILY PRN 04/19/24 04/27/24 Magnesia Concentrate] Magnesium Oxide [Magox 400] 400 mg PO BID@0800,1700 04/19/24 04/27/24 Melatonin 4.5 mg PO HS@209904/19/24 04/27/24 Multivitamins, Thera [Multivitamin 1 tab PO DAILY@1700 04/19/24 04/27/24 (formulary)] Na Phos,M-B/Na Phos,Di-Ba [Fleet 133 ml RECTAL DAILY PRN 04/19/24 04/27/24 Adult] Sacubitril/Valsartan [Entresto 49 1 tab PO BID@0800,169904/19/24 04/27/24 mg-51 mg Tablet] Spironolactone [Aldactone] 12.5 mg PO DAILY@0800 04/19/24 04/27/24 Thiamine [Vitamin B-1] 100 mg PO DAILY@0800 04/19/24 04/27/24 bisacodyL [Dulcolax] 10 mg RECTAL DAILY PRN 04/19/24 04/27/24 Cephalexin [Keflex] 500 mg PO TID@0600,1400,2200 04/27/24 04/27/24 HYDROcodone/APAP 5-325MG [[place] 1 tab PO Q6HR PRN 04/27/24 04/27/24 5-325] Potassium Chloride ER [K-Dur 20] 20 meq PO DAILY@0800 04/27/24 04/27/24 QUEtiapine [SEROquel] 12.5 mg PO HS@209904/27/24 04/27/24 Previous Rx's Medication Instructions Recorded Acetaminophen Tab [Tylenol] 650 mg PO Q6HR PRN tab 05/13/23 Gabapentin [Neurontin] 100 mg PO DAILY@0800 #2 cap 04/24/24 Gabapentin [Neurontin] 200 mg PO HS@2099 #2 cap 04/24/24 Lacosamide [Vimpat] 100 mg PO BID@0800,2100 #8 tab 04/24/24 Allergies Allergy/AdvReac Type Severity Reaction Status Date / Time Penicillins Allergy Rash/Hives Verified 04/27/24 15:48 vancomycin Allergy Rash/Hives Verified 04/27/24 15:48 ondansetron [From Zofran] AdvReac Nausea & Verified 04/27/24 15:48 Vomiting Review of Systems ROS Statement: Those systems with pertinent positive or pertinent negative responses have been documented in the HPI. ROS Other: All systems not noted in ROS Statement are negative. Past Medical History Past Medical History: Asthma, Heart Failure, COPD, CVA/TIA, Diabetes Mellitus, Deep Vein Thrombosis (DVT), Hypertension, Myocardial Infarction ([place]), Pneumonia, Seizure Disorder, Seizure Disorder Additional Past Medical History / Comment(s): uses a wheelchair. Patient states last seizure summer 2019 while she was at [facility]. 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 has pacemaker defibrillator, right all toe amputated 04/2016, R BKA 2019, LT GREAT TOE then left foot partial amputation, cardiac cath 2022 Past Anesthesia/Blood Transfusion Reactions: Postoperative Nausea & Vomiting (PONV) Type of Cardiac Device: Biventricular Pacemaker, Permanent Pacemaker, AICD Device Placement Date:: 2011 Past Psychological History: Bipolar Smoking Status: Former smoker Past Alcohol Use History: None Reported Past Drug Use History: Marijuana - Past Family History Mother Family Medical History: Unable to Obtain, Deep Vein Thrombosis (DVT) Additional Family Medical History / Comment(s): Some type of heart problems, kidney failure. Father History Unknown: Yes Family Medical History: Unable to Obtain Additional Family Medical History / Comment(s): Patient denies knowing any medical history on her father. General Exam Limitations: altered mental status General appearance: alert Head exam: Present: atraumatic, normocephalic, normal inspection Eye exam: Present: normal appearance, PERRL, EOMI. Absent: scleral icterus, conjunctival injection, periorbital swelling ENT exam: Present: normal exam, mucous membranes moist Neck exam: Present: normal inspection. Absent: tenderness, meningismus, lymphadenopathy Respiratory exam: Present: normal lung sounds bilaterally. Absent: respiratory distress, wheezes, rales, rhonchi, stridor Cardiovascular Exam: Present: regular rate, normal rhythm, normal heart sounds. Absent: systolic murmur, diastolic murmur, rubs, gallop, clicks Neurological exam: Present: alert Psychiatric exam: Present: depressed Skin exam: Present: other (Self-inflicted abrasion to the forearm - right) Course Vital Signs 04/27/24 04/27/24 04/28/24 15:12 17:10 02:00 Temperature 97.7 F Pulse Rate 96 104 H 96 Respiratory 18 16 18 Rate Blood Pressure 105/65 118/79 136/84 O2 Sat by Pulse 96 98 98 Oximetry 04/28/24 04/28/24 06:51 08:00 Temperature Pulse Rate 87 100 Respiratory 18 18 Rate Blood Pressure 126/76 119/65 O2 Sat by Pulse 98 98 Oximetry Medical Decision Making - Medical Decision Making Was pt. sent in by a medical professional or institution (, PA, BIN CLEANER, urgent care, hospital, or fdc...) When possible be specific @ -[facility] Did you speak to anyone other than the patient for history (EMS, parent, family, police, friend...)? What history was obtained from this source @ -Spoke with EMS in regards to the history Did you review nursing and triage notes (agree or disagree)? Why? @ -I reviewed and agree with nursing and triage notes Were old charts reviewed (outside hosp., previous admission, EMS record, old EKG, old radiological studies, urgent care reports/EKG's, fdc records)? Report findings @ -I reviewed patient's discharge summary from yesterday as well as her neur ologic consult. Patient was found to be delusional with concern for metabolic encephalopathy Differential Diagnosis (chest pain, altered mental status, abdominal pain women, abdominal pain men, vaginal bleeding, weakness, fever, dyspnea, syncope, headache, dizziness, GI bleed, back pain, seizure, CVA, palpatations, mental health, musculoskeletal)? @ -Differential Altered Mental Status: Hypoglycemia, DKA, hypercapnia, ETOH, overdose, CO poisoning, trauma, myxedema coma, HTN encephalopathy, infection, encephalitis, psychosis, intercranial hemorrhage, hepatic encephalopathy, meningitis, CVA, this is not meant to be an all-inclusive list Differential Mental Health Depression, anxiety, bipolar, psychosis, schizophrenia, borderline personality, situational depression, adjustment disorder, behavioral disorder, brain tumor, malingering, substance abuse, encephalopathy, medication reaction, dementia, hypothyroidism, degenerative neurologic disorder, lupus.... This is not meant to be all-inclusive list EKG interpreted by me (3pts min.). @ -yes and demonstrates ventricular pacemaker which is patient appropriately capturing. Rate of 104. UT interval 184. QRS 122. QTc of 438. No acute ST segment elevations or depressions X-rays interpreted by me (1pt min.).p @ -None done CT interpreted by me (1pt min.). @ -None done U/S interpreted by me (1pt. min.). @ -None done What testing was considered but not performed or refused? (CT, X-rays, U/S, labs)? Why? @ - UA - patient refusing to go at this time. patient in hallway. may straight cath once patient placed into a room What meds were considered but not given or refused? Why? @ -None Did you discuss the management of the patient with other professionals (professionals i.e. , PA, BIN CLEANER, lab, RT, psych nurse, social worker psychiatric, editor school photograph, teacher, credit officer, complex case manager)? Give summary @ -I discussed the case with Edwin from EPS. The patient will be better suited by being admitted to the hospital medically with psychiatric consult. Previous diagnosis was metabolic encephalopathy which needs further evaluation from neurology before psych is completely comfortable taking the patient. UA is pending at this time. I did discuss the case with Aretha from [facility]. Informed her the patient was just discharged however continues to state nonsensical things and yesterday attempted to harm herself. Patient will be admitted with neurology and psychiatry to consult. Was smoking cessation discussed for >3mins.? @ -No Was critical care preformed (if so, how long)? @ -No Were there social determinants of health that impacted care today? How? (Homelessness, low income, unemployed, alcoholism, drug addiction, transportation, low edu. Level, literacy, decrease access to med. care, residential, rehab)? @ -Patient currently in ECF Was there de-escalation of care discussed even if they declined (Discuss DNR or withdrawal of care, Hospice)? DNR status @ -No What co-morbidities impacted this encounter? (DM, HTN, Smoking, COPD, CAD, Cancer, CVA, ARF, Chemo, Hep., AIDS, mental health diagnosis, sleep apnea, morbid obesity)? @ -Diabetes mellitus, bipolar Was patient admitted / discharged? Hospital course, mention meds given and route, prescriptions, significant lab abnormalities, going to OR and other pertinent info. @ -Upon arrival patient seen and evaluated in hallway 19. Thorough history and physical exam was performed. Patient does have self-inflicted abrasion to the forearm. I did review the patient's chart and it appears that she did have delusional behavior while hospitalized. Neurology had seen and evaluated the patient. They diagnosed the patient with metabolic encephalopathy. Patient continues to have delusional behavior. I spoke with Edwin from EPS who does not feel that the patient is purely a psychiatric condition. States that the patient will need a psychiatry consult however neurology should also be reconsulted to evaluate the patient and her behavior. I will admit the patient to the hospital. Spoke with Aretha who agreed to admission. I will place neurology and psychiatry on consult. Patient was agreeable to this plan she was admitted to the floor in stable condition Undiagnosed new problem with uncertain prognosis? @ -No Drug Therapy requiring intensive monitoring for toxicity (Heparin, Nitro, Insulin, Cardizem)? @ -No Were any procedures done? @ -No Diagnosis/symptom? @ -Self-inflicted abrasions to the right forearm, suicide attempt, delusional behavior Acute, or Chronic, or Acute on Chronic? @ -Acute Uncomplicated (without systemic symptoms) or Complicated (systemic symptoms)? @ -Complicated Side effects of treatment? @ -No Exacerbation, Progression, or Severe Exacerbation? @ -No Poses a threat to life or bodily function? How? (Chest pain, [place], [place], pneumonia, PE, COPD, DKA, ARF, appy, cholecystitis, CVA, Diverticulitis, Homicidal, Suicidal, threat to staff... and all critical care pts) @ -Yes as patient is actively trying to harm herself - Lab Data Result diagrams: 04/27/24 15:47 04/27/24 16:46 Lab Results 05/31/24 05/31/24 Range/Units 15:47 16:46 WBC 8.4 (3.8-10.6) k/uL RBC 5.79 H (3.80-5.40) m/uL Hgb 14.5 (11.4-16.0) gm/dL Hct 48.3 H (34.0-46.0) % MCV 83.4 (80.0-100.0) fL MCH 25.0 (25.0-35.0) pg MCHC 30.0 L (31.0-37.0) g/dL RDW 19.9 H (11.5-15.5) % Plt Count 248 (150-450) k/uL MPV 11.3 Neutrophils % (Manual) 79 % Lymphocytes % (Manual) 9 % Monocytes % (Manual) 7 % Eosinophils % (Manual) 5 % Neutrophils # (Manual) 6.64 (1.3-7.7) k/uL Lymphocytes # (Manual) 0.76 L (1.0-4.8) k/uL Monocytes # (Manual) 0.59 (0-1.0) k/uL Eosinophils # (Manual) 0.42 (0-0.7) k/uL Nucleated RBCs 0 (0-0) /100 WBC Manual Slide Review Performed Hypochromasia Marked Poikilocytosis Slight Anisocytosis Slight Sodium 138 (137-145) mmol/L Potassium 4.3 (3.5-5.1) mmol/L Chloride 108 H (98-107) mmol/L Carbon Dioxide 19 L (22-30) mmol/L Anion Gap 11 mmol/L BUN 25 H (7-17) mg/dL Creatinine 1.04 (0.52-1.04) mg/dL Est GFR (CKD-EPI)AfAm 73 (>60 ml/min/1.73 sqM) Est GFR (CKD-EPI)NonAf 63 (>60 ml/min/1.73 sqM) Glucose 114 H (74-99) mg/dL Calcium 9.3 (8.4-10.2) mg/dL Total Bilirubin 1.2 (0.2-1.3) mg/dL AST 49 H (14-36) U/L ALT 34 (4-34) U/L Alkaline Phosphatase 130 H (38-126) U/L Total Protein 8.1 (6.3-8.2) g/dL Albumin 4.4 (3.5-5.0) g/dL Disposition Clinical Impression: Altered mental state, Delusions Disposition: ADMITTED IP TO THIS [facility] Condition: Stable Is patient prescribed a controlled substance at d/c from ED?: No Time of Disposition: 18:50 Decision to Admit Reason: Admit from EC Decision Date: 04/27/24 Decision Time: 18:50
[2024-04-27] MEDS ORDERED: NALOXONE 0.4 MG/ML 1 ML VIAL IV PRN (18:51)
[2024-04-27] MEDS ORDERED: MAGNESIUM HYDROXIDE 2,400 MG/30 ML CUP PO PRN (20:50)
[2024-04-27] MEDS ORDERED: NA PHOS,M-B/NA PHOS,DI-BA 133 ML ENEMA RECTAL PRN (20:50)
[2024-04-27] MEDS ORDERED: ACETAMINOPHEN TAB 325 MG TAB PO PRN (20:50)
[2024-04-27] MEDS ORDERED: bisacodyL 10 MG SUPP RECTAL PRN (20:50)
[2024-04-27] MEDS: QUEtiapine 25 MG TAB PO SCH (22:33)
[2024-04-27] MEDS: CEPHALEXIN 500 MG CAP PO SCH (22:33)
[2024-04-27] MEDS: MELATONIN 1 MG TAB PO SCH (22:34)
[2024-04-27] MEDS: LACOSAMIDE 50 MG TABLET PO SCH (23:54)
[2024-04-28 03:40] LABS: Amorphous Sediment,Urine Rare /hpf; Appearance,Urine Cloudy (Clear); Bacteria,Urine Rare /hpf; Bilirubin,Urine Negative (Negative); Blood,Urine Small (Negative); Color,Urine Yellow; Glucose,Urine (UA) Negative (Negative); Hyaline Casts,Urine 12 /lpf (0-2); Ketones,Urine Trace (Negative); Leukocyte Esterase,Urine Large (Negative); Mucus,Urine Occasional /hpf; Nitrite,Urine Negative (Negative); Protein,Urine 3+ (Negative); RBC,Urine 16 /hpf (0-5); Specific Gravity,Urine 1.017 (1.001-1.035); Squamous Epithelial Cell,Urine 5 /hpf (0-4); Urobilinogen,Urine <2.0 mg/dL (<2.0); WBC,Urine 53 /hpf (0-5)
[2024-04-28] MEDS: PANTOPRAZOLE 40 MG TABLET PO SCH (06:50)
[2024-04-28] MEDS: DAPAGLIFLOZIN PROPANEDIOL 5 MG TABLET PO SCH (07:58)
[2024-04-28] MEDS: MAGNESIUM OXIDE 400 MG TAB PO SCH (07:58)
[2024-04-28] MEDS: THIAMINE 100 MG TAB PO SCH (07:58)
[2024-04-28] MEDS: SPIRONOLACTONE 25 MG TAB PO SCH (07:58)
[2024-04-28] MEDS: POTASSIUM CHLORIDE ER 20 MEQ TAB.ER PO SCH (07:58)
[2024-04-28] MEDS: BUMETANIDE 1 MG TAB PO SCH (07:58)
[2024-04-28] MEDS: FOLIC ACID 1 MG TAB PO SCH (07:58)
[2024-04-28] MEDS: INSULIN DETEMIR (LEVEMIR) 100 UNIT/ML SYR SQ SCH (07:59)
[2024-04-28] MEDS: SACUBITRIL/VALSARTAN 49 MG-51 MG TABLET PO SCH (08:00)
[2024-04-28] MEDS ORDERED: BUDESONIDE 0.5 MG/2 ML NEBU INHALATION SCH (08:00)
[2024-04-28] MEDS: BUDESONIDE 0.5 MG/2 ML NEBU INHALATION SCH (08:03)
[2024-04-28 09:42] LABS: BUN/Creat Ratio 22.64 Ratio (12.00-20.00); Blood Urea Nitrogen 24.9 mg/dL (9.0-27.0); Carbon Dioxide 22.5 mmol/L (21.6-31.8); Chloride 103 mmol/L (96-109); Glucose 96 mg/dL (70-110); Potassium 3.9 mmol/L (3.5-5.5); Sodium 141 mmol/L (135-145)
[2024-04-28 09:43] LABS: Basophils # (A) 0.14 X 10*3/uL (0.00-0.10); Basophils % (A) 1.8 %; Eosinophils # (A) 0.38 X 10*3/uL (0.04-0.35); HCT 47.2 % (37.2-46.3); HGB 13.5 g/dL (12.0-15.0); Lymphocytes # (A) 0.86 X 10*3/uL (0.90-5.00); Lymphocytes % (A) 11.2 %; MCH 24.4 pg (27.0-32.0); MCHC 28.6 g/dL (32.0-37.0); MCV 85.4 FL (80.0-97.0); Mean Platelet Volume 11.3 FL (9.5-12.2); Monocytes # (A) 0.67 X 10*3/uL (0.20-1.00); Monocytes % (A) 8.7 %; NRBC Per 100 WBC 0 X 10*3/uL (0.00-0.01); Neutrophils # (A) 5.58 X 10*3/uL (1.80-7.70); Neutrophils % (A) 72.9 %; Platelet Count 252 X 10*3/uL (140-440); RBC 5.53 X 10*6/uL (4.10-5.20); RDW 22.9 % (11.5-14.5); WBC 7.66 X 10*3/uL (4.50-10.00)
[2024-04-28] MEDS: ALBUTEROL NEBULIZED 2.5 MG/3 ML INHALATION PRN (11:26)
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
--- NOTE | 2024-04-28 13:13 | XR ---
EXAMINATION TYPE: XR chest 1V DATE OF EXAM: 04/28/2024 COMPARISON: 04/19/2024 HISTORY: CHF TECHNIQUE: Single frontal view of the chest is obtained. FINDINGS: There is an AICD device. The pulmonary vascular congestion seen on the prior study has resolved in the interval. Currently the pulmonary vasculature is not congested and there is no interstitial edema. The heart size is normal for the technique. There is no airspace consolidation. There is no pleural effusion or pneumothorax IMPRESSION: No acute cardiopulmonary disease.
--- NOTE | 2024-04-28 14:47 | CT ---
EXAMINATION TYPE: CT brain wo con DATE OF EXAM: 04/28/2024 COMPARISON: 04/20/2024 INDICATION: AMS DLP: 1115.4 mGycm, Automated exposure control for dose reduction was used. CONTRAST: None CT of the brain is performed utilizing 3 mm thick sections through the posterior fossa and 3 mm thick sections through the remaining calvarium. Study is performed within 24 hours of arrival to the hosp [facility]. No abnormal hyperdensity is present to suggest an acute intracranial hemorrhage. No mass lesion is evident. No acute infarcts are evident. There is an old lacunar infarct within left thalamus. Old lacunar infa rct may also be within the right cerebellum. Mild periventricular white matter hypodensity may be pre sent, most likely in the basis of chronic white matter ischemic changes. Ventricles and sulci are appropriate for the patient age. Paranasal sinuses and mastoid air cells within the [id number] are clear. IMPRESSION: 1. No acute intracranial process. Follow-up MRI can be performed as clinically indicated. 2. Old lacunar infarcts left thalamus and right cerebellum, stable from comparison
--- NOTE | 2024-04-28 16:00 | P.CN ---
Psychiatric Consult - . Consult date: 04/28/24 Consult:: 04/28/24 15:52 Patient Name: Flaca Hinson Date of : 71 Patient Status: Observation Attending Provider: Brittany Villafuerte Date: 04/28/24 12:27 Initialization Date: 04/28/24 12:[address] Thakur said dictating a psychiatric assessment on Flaca Hinson who is a 48-year-old female with multiple previous hospitalizations for medical problems According to the taper operator's notes patient has been trying to hurt herself by trying to slit her wrist When asked about reasons patient laughed and stated that Abimael will be in charge and that she showed the risk to her daughter stating that the world will change if they do not listen to the word of Dick she is a poor historian regarding giving appropriate psychiatric history but states that she has had some follow- up in the past She said that she was hospitalized on a psychiatric unit when she was 14 years old but does not remember the details She states that she currently lives with her son and that 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 Behavior: Patient is calmly laying without any agitated behavior. Speech: Patient's speech is fluent and pressured. Mood/Affect: Mood is euphoric with expansiveness Suicidality/Homicidality: Patient denies having any suicidal or homicidal ideation intent or plan. Perceptions: Patient denies any visual hallucinations and denies any auditory hallucinations Though content/process: There is evidence of delusional thought content and thought processes Patient however denies any suicidal or homicidal ideations or plans Memory and concentration: AOX3, grossly intact for the purposes of this session Judgment and insight: [place] Assessment Bipolar disorder Interpersonal family issues and conflicts Formulation and plan: Flaca is a 48-year-old female who currently exhibits what appears to be manic/hypomanic symptoms Patient is not suicidal or homicidal and does not meet the criteria for inpatient psychiatric hospitalization Patient however may benefit from addition of an antipsychotic with appropriate follow-up with a psychiatrist/PCP Patient is agreeable to be started on an antipsychotic and a mood stabilizer Will initially start the patient on Risperdal 0.5 mg twice daily to start with and to be titrated to response At sometime down the line patient could also be started on Depakote or Lamictal if needed Discussed effects and side effects of Risperdal with the patient and the patient is okay with starting it Patient is highly recommended to follow-up with mental health services as an outpatient Thank you very much for the kind referral and please feel free to contact me for any further questions Blaze Schaefer MD
[2024-04-28] MEDS: MULTIVITAMINS, THERA 1 EACH TAB PO SCH (17:00)
[2024-04-28] MEDS: APIXABAN 5 MG TAB PO SCH (17:01)
[2024-04-28] MEDS: HYDROcodone/APAP 5-325MG 1 EACH TAB PO PRN (17:03)
[2024-04-28] MEDS: GABAPENTIN 100 MG CAP PO SCH (21:04)
[2024-04-28] MEDS: risperiDONE 0.5 MG TAB PO SCH (21:55)
[2024-04-29] MEDS: GABAPENTIN 100 MG CAP PO SCH (08:03)
[2024-04-29 08:48] LABS: Glucose,Whole Blood 73 mg/dL (70-110)
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
[2024-04-29] MEDS ORDERED: ALBUTEROL HFA INHALER INHALATION PRN (20:18)
[2024-04-29 21:10] LABS: Glucose,Whole Blood 106 mg/dL (70-110)
[2024-04-29] MEDS: FLUTICASONE 110 MCG INHALER INHALATION SCH (23:22)
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
[2024-05-02 14:54] VITALS: BP 101/63; PULSE 107; RESP 16; TEMP 98.1
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
== END 2024-05-02 15:20 | disposition home health service (06) ==
LOC: EC 15:06 → 6NMEDSUR 18:53
PROVIDERS: ADMIT Hospitalist; ATTEND Hospitalist
DX: F31.10 Bipolar disorder, current episode manic without psychotic features, unspecified (principal); E11.40 Type 2 diabetes mellitus with diabetic neuropathy, unspecified; I11.0 Hypertensive heart disease with heart failure; I50.22 Chronic systolic (congestive) heart failure; I48.91 Unspecified atrial fibrillation; F22 Delusional disorders; I42.9 Cardiomyopathy, unspecified; J44.9 Chronic obstructive pulmonary disease, unspecified; I25.10 Atherosclerotic heart disease of native coronary artery without angina pectoris; S50.811A Abrasion of right forearm, initial encounter; X78.8XXA Intentional self-harm by other sharp object, initial encounter; G40.919 Epilepsy, unspecified, intractable, without status epilepticus; E11.628 Type 2 diabetes mellitus with other skin complications; L03.116 Cellulitis of left lower limb; M54.9 Dorsalgia, unspecified; Z79.4 Long term (current) use of insulin; Z79.01 Long term (current) use of anticoagulants; Z79.84 Long term (current) use of oral hypoglycemic drugs; Z79.51 Long term (current) use of inhaled steroids; Z79.899 Other long term (current) drug therapy; Z88.0 Allergy status to penicillin; Z88.1 Allergy status to other antibiotic agents; Z88.8 Allergy status to other drugs, medicaments and biological substances; Z87.891 Personal history of nicotine dependence; Z89.511 Acquired absence of right leg below knee; Z86.73 Personal history of transient ischemic attack (TIA), and cerebral infarction without residual deficits; Z89.422 Acquired absence of other left toe(s); Z95.0 Presence of cardiac pacemaker; Z86.718 Personal history of other venous thrombosis and embolism
CPT/HCPCS: 82075; 99285; 36415; 94640 ×6; 97530; 97161; 97166; 83880; 80053; 80048; 85025 ×2; 81001; 71045; 70450; G0378 ×6

== ENCOUNTER 2024-08-16 15:42 | Inpatient (IN) | payer MEDICARE, OTHER ==
[2024-08-16 15:54] LABS: Glucose,Whole Blood 113 mg/dL (70-110)
--- NOTE | 2024-08-16 16:15 | ED ---
Extremity Problem HPI - General Chief complaint: Extremity Problem,Nontraumatic Stated complaint: cellulitis Time Seen by Provider: 08/16/24 15:48 Source: patient, EMS, RN notes reviewed, old records reviewed Mode of arrival: EMS Limitations: no limitations - History of Present Illness Initial comments: This is a 48-year-old female to the ER for evaluation of bilateral lower extremity pain history of significant vascular issues with diabetes. Patient is on Eliquis coming in for severe abdominal pain no travel history no sick contacts MD Complaint: extremity pain, extremity swelling, joint swelling -: days(s) Location: left, right, bilateral lower extremity -: Yes myalgia Radiation: none Severity scale (1-10): 3 Quality: burning, stabbing Consistency: constant Improves with: nothing Worsens with: nothing Associated Symptoms: denies other symptoms - Related Data Home Medications Medication Instructions Recorded Confirmed Insulin Glargine [Lantus Vial] 40 unit SQ HS 04/30/19 08/16/24 Pantoprazole [Protonix] 40 mg PO DAILY 01/29/24 08/16/24 Apixaban [Eliquis] 5 mg PO BID 04/19/24 08/16/24 Bumetanide [BUMEX] 2 mg PO DAILY 04/19/24 08/16/24 Sacubitril/Valsartan [Entresto 49 1 tab PO BID 04/19/24 08/16/24 mg-51 mg Tablet] ALPRAZolam [Xanax] 0.5 mg PO BID 08/16/24 08/16/24 Gabapentin 600 mg PO TID 08/16/24 08/16/24 Ipratropium-Albuterol Nebulize 3 ml INHALATION RT-TID PRN 08/16/24 08/16/24 [Duoneb 0.5 mg-3 mg/3 ml Soln] Lacosamide [Vimpat] 50 mg PO BID 08/16/24 08/16/24 Allergies Allergy/AdvReac Type Severity Reaction Status Date / Time Penicillins Allergy Rash/Hives Verified 08/16/24 17:58 vancomycin Allergy Rash/Hives Verified 08/16/24 17:58 ondansetron [From Zofran] AdvReac Nausea & Verified 08/16/24 17:58 Vomiting Review of Systems ROS Statement: Those systems with pertinent positive or pertinent negative responses have been documented in the HPI. ROS Other: All systems not noted in ROS Statement are negative. Past Medical History Past Medical History: Asthma, Heart Failure, COPD, CVA/TIA, Diabetes Mellitus, Deep Vein Thrombosis (DVT), Hypertension, Myocardial Infarction ([place]), Pneumonia, Seizure Disorder, Seizure Disorder Additional Past Medical History / Comment(s): uses a wheelchair. Patient states last seizure summer 2019 while she was at [facility]. 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 has pacemaker defibrillator, right all toe amputated 04/2016, R BKA 2019, LT GREAT TOE then left foot partial amputation, cardiac cath 2022 Past Anesthesia/Blood Transfusion Reactions: Postoperative Nausea & Vomiting (PONV) Type of Cardiac Device: Biventricular Pacemaker, Permanent Pacemaker, AICD Device Placement Date:: 2011 Past Psychological History: Bipolar Smoking Status: Former smoker Past Alcohol Use History: None Reported Past Drug Use History: Marijuana - Past Family History Mother Family Medical History: Unable to Obtain, Deep Vein Thrombosis (DVT) Additional Family Medical History / Comment(s): Some type of heart problems, kidney failure. Father History Unknown: Yes Family Medical History: Unable to Obtain Additional Family Medical History / Comment(s): Patient denies knowing any medical history on her father. General Exam General appearance: alert, in no apparent distress Head exam: Present: atraumatic, normocephalic, normal inspection Eye exam: Present: normal appearance, PERRL, EOMI. Absent: scleral icterus, conjunctival injection, periorbital swelling ENT exam: Present: normal exam, mucous membranes moist Neck exam: Present: normal inspection. Absent: tenderness, meningismus, lymphadenopathy Respiratory exam: Present: normal lung sounds bilaterally. Absent: respiratory distress, wheezes, rales, rhonchi, stridor Cardiovascular Exam: Present: regular rate, normal rhythm, normal heart sounds. Absent: systolic murmur, diastolic murmur, rubs, gallop, clicks GI/Abdominal exam: Present: soft, normal bowel sounds. Absent: distended, tenderness, guarding, rebound, rigid Extremities exam: Present: normal inspection, full ROM, normal capillary refill. Absent: tenderness, pedal edema, joint swelling, calf tenderness Back exam: Present: normal inspection Neurological exam: Present: alert, oriented X3, CN II-XII intact Psychiatric exam: Present: normal affect, normal mood Skin exam: Present: warm, dry, intact, normal color. Absent: rash Course Vital Signs 08/16/24 08/16/24 08/16/24 15:45 18:43 21:22 Temperature 98.3 F 98.3 F Pulse Rate 100 107 H 101 H Pulse Rate [ Supine] Respiratory 20 19 16 Rate Blood Pressure 106/75 105/72 126/87 Blood Pressure [Supine] O2 Sat by Pulse 98 92 L 99 Oximetry 08/16/24 21:39 Temperature 97.5 F L Pulse Rate Pulse Rate [ 105 H Supine] Respiratory 19 Rate Blood Pressure Blood Pressure 125/85 [Supine] O2 Sat by Pulse 98 Oximetry - Reevaluation(s) Reevaluation #1: 08/16/24 18:42 Medical records reviewed Reevaluation #2: 08/16/24 18:42 Patient symptoms unchanged Reevaluation #3: 08/16/24 18:42 Patient informed of results and questions answered Reevaluation #4: Was pt. sent in by a medical professional or institution (, PA, STRAIGHTEDGE MAN, urgent care, hospital, or longterm...) When possible be specific @ -no Did you speak to anyone other than the patient for history (EMS, parent, family, police, friend...)? What history was obtained from this source @ -no Did you review nursing and triage notes (agree or disagree)? Why? @ -agree Are old charts reviewed (outside hosp., previous admission, EMS record, old EKG, old radiological studies, urgent care reports/EKG's, longterm records)? Report findings @ -yes Differential Diagnosis (chest pain, altered mental status, abdominal pain women, abdominal pain men, vaginal bleeding, weakness, fever, dyspnea, syncope, headache, dizziness, GI bleed, back pain, seizure, CVA, palpatations, mental he alth, musculoskeletal)? @ -prior EKG interpreted by me (3pts min.). @ -yes X-rays interpreted by me (1pt min.). @ -yes negative for acute disease CT interpreted by me (1pt min.). @ -no U/S interpreted by me (1pt. min.). @ -Yes positive for DVT What testing was considered but not performed or refused? (CT, X-rays, U/S, labs)? Why? @ -none What meds were considered but not given or refused? Why? @ -none Did you discuss the management of the patient with other professionals (professionals i.e. DrDeneen, PA, STRA[employer]EDGE MAN, lab, RT, psych nurse, social work therapist, jewel bearing driller, teacher, customs and border protection officer, director case)? Give summary @ -no Was smoking cessation discussed for >3mins.? @ -no Was critical care preformed (if so, how long)? @ -no Were there social determinants of health that impacted care today? How? (Homelessness, low income, unemployed, alcoholism, drug addiction, transportation, low edu. Level, literacy, decrease access to med. care, assisted, rehab)? @ -none Was there de-escalation of care discussed even if they declined (Discuss DNR or withdrawal of care, Hospice)? DNR status @ -no What co-morbidities impacted this encounter? (DM, HTN, Smoking, COPD, CAD, Cancer, CVA, ARF, Chemo, Hep., AIDS, mental health diagnosis, sleep apnea, morbid obesity)? @ -none Was patient admitted / discharged? Hospital course, mention meds given and route, prescriptions, significant lab abnormalities, going to OR and other pertinent info. @ - 48 female to the ER for evaluation patient presents today for evaluation regards to significant leg pain and debility. Patient has bilateral lower extremity cellulitis complicated by DVT will admit for high-dose heparin IV antibiotics Admitted Undiagnosed new problem with uncertain prognosis? @ -no Drug Therapy requiring intensive monitoring for toxicity (Heparin, Nitro, Insulin, Cardizem)? @ -no Were any procedures done? @ -no Diagnosis/symptom? @ -Significant lower extremity cellulitis and DVT Acute, or Chronic, or Acute on Chronic? @ -Acute Uncomplicated (without systemic symptoms) or Complicated (systemic symptoms)? @ -Complicated Side effects of treatment? @ -no Exacerbation, Progression, or Severe Exacerbation? @ -exacerbation Poses a threat to life or bodily function? How? (Chest pain, [place], [place], pneumonia, PE, COPD, DKA, ARF, appy, cholecystitis, CVA, Diverticulitis, Homicidal, Suicidal, threat to staff... and all critical care pts) @ -yes infection - Consultations Consultation #1: Spoke with [facility] who agreed to admit this patient Medical Decision Making - Medical Decision Making 48 female to the ER for evaluation patient presents today for evaluation regards to significant leg pain and debility. Patient has bilateral lower extremity cellulitis complicated by DVT will admit for high-dose heparin IV antibiotics - Lab Data Result diagrams: 08/26/24 07:16 08/27/24 05:56 Lab Results 08/16/24 08/16/24 08/16/24 Range/Units 15:52 16:17 16:17 WBC 6.1 (3.8-10.6) k/uL RBC 4.25 (3.80-5.40) m/uL Hgb 10.1 L (11.4-16.0) gm/dL Hct 34.7 (34.0-46.0) % MCV 81.6 (80.0-100.0) fL MCH 23.8 L (25.0-35.0) pg MCHC 29.2 L (31.0-37.0) g/dL RDW 18.6 H (11.5-15.5) % Plt Count 179 (150-450) k/uL MPV 8.7 Neutrophils % 77 % Lymphocytes % 12 % Monocytes % 6 % Eosinophils % 3 % Basophils % 0 % Neutrophils # 4.6 (1.3-7.7) k/uL Lymphocytes # 0.7 L (1.0-4.8) k/uL Monocytes # 0.4 (0-1.0) k/uL Eosinophils # 0.2 (0-0.7) k/uL Basophils # 0.0 (0-0.2) k/uL Hypochromasia Marked Poikilocytosis Moderate Anisocytosis Slight Microcytosis Slight PT 13.3 H (10.0-12.5) sec INR 1.3 H (<1.2) APTT 26.2 (22.0-30.0) sec Sodium (137-145) mmol/L Potassium (3.5-5.1) mmol/L Chloride (98-107) mmol/L Carbon Dioxide (22-30) mmol/L Anion Gap mmol/L BUN (7-17) mg/dL Creatinine (0.52-1.04) mg/dL Est GFR (CKD-EPI)AfAm (>60 ml/min/1.73 sqM) Est GFR (CKD-EPI)NonAf (>60 ml/min/1.73 sqM) Glucose (74-99) mg/dL POC Glucose (mg/dL) 113 H (70-110) mg/dL POC Glu Manager Heavy Duty ID [address] Glu mg/dL mg/dL Hemoglobin A1c (<=6.0) % Lactic Ac Sepsis Rflx Plasma Lactic Acid [place] (0.7-2.0) mmol/L Calcium (8.4-10.2) mg/dL Phosphorus (2.5-4.5) mg/dL Magnesium (1.6-2.3) mg/dL Total Bilirubin (0.2-1.3) mg/dL AST (14-36) U/L ALT (4-34) U/L Alkaline Phosphatase (38-126) U/L Troponin I (0.000-0.034) ng/mL C-Reactive Protein (<1.0) mg/dL Total Protein (6.3-8.2) g/dL Albumin (3.5-5.0) g/dL TSH (0.465-4.680) mIU/L Free T4 (0.78-2.19) ng/dL 08/16/24 08/16/24 08/16/24 Range/Units 16:17 16:17 16:17 WBC (3.8-10.6) k/uL RBC (3.80-5.40) m/uL Hgb (11.4-16.0) gm/dL Hct (34.0-46.0) % MCV (80.0-100.0) fL MCH (25.0-35.0) pg MCHC (31.0-37.0) g/dL RDW (11.5-15.5) % Plt Count (150-450) k/uL MPV Neutrophils % % Lymphocytes % % Monocytes % % Eosinophils % % Basophils % % Neutrophils # (1.3-7.7) k/uL Lymphocytes # (1.0-4.8) k/uL Monocytes # (0-1.0) k/uL Eosinophils # (0-0.7) k/uL Basophils # (0-0.2) k/uL Hypochromasia Poikilocytosis Anisocytosis Microcytosis PT (10.0-12.5) sec INR (<1.2) APTT (22.0-30.0) sec Sodium 136 L (137-145) mmol/L Potassium 4.6 (3.5-5.1) mmol/L Chloride 103 (98-107) mmol/L Carbon Dioxide 20 L (22-30) mmol/L Anion Gap 13 mmol/L BUN 50 H (7-17) mg/dL Creatinine 1.73 H (0.52-1.04) mg/dL Est GFR (CKD-EPI)AfAm 39 (>60 ml/min/1.73 sqM) Est GFR (CKD-EPI)NonAf 34 (>60 ml/min/1.73 sqM) Glucose 106 H (74-99) mg/dL POC Glucose (mg/dL) (70-110) mg/dL POC Glu Manager Heavy Duty ID [address] Glu mg/dL mg/dL Hemoglobin A1c (<=6.0) % Lactic Ac Sepsis Rflx Plasma Lactic Acid [place] 2.2 H* (0.7-2.0) mmol/L Calcium 8.6 (8.4-10.2) mg/dL Phosphorus 4.6 H (2.5-4.5) mg/dL Magnesium 2.0 (1.6-2.3) mg/dL Total Bilirubin 1.1 (0.2-1.3) mg/dL AST 22 (14-36) U/L ALT 11 (4-34) U/L Alkaline Phosphatase 90 (38-126) U/L Troponin I <0.012 (0.000-0.034) ng/mL C-Reactive Protein 2.9 H (<1.0) mg/dL Total Protein 7.1 (6.3-8.2) g/dL Albumin 3.8 (3.5-5.0) g/dL TSH 27.600 H (0.465-4.680) mIU/L Free T4 (0.78-2.19) ng/dL 08/16/24 08/16/24 08/16/24 Range/Units 16:17 16:17 17:18 WBC (3.8-10.6) k/uL RBC (3.80-5.40) m/uL Hgb (11.4-16.0) gm/dL Hct (34.0-46.0) % MCV (80.0-100.0) fL MCH (25.0-35.0) pg MCHC (31.0-37.0) g/dL RDW (11.5-15.5) % Plt Count (150-450) k/uL MPV Neutrophils % % Lymphocytes % % Monocytes % % Eosinophils % % Basophils % % Neutrophils # (1.3-7.7) k/uL Lymphocytes # (1.0-4.8) k/uL Monocytes # (0-1.0) k/uL Eosinophils # (0-0.7) k/uL Basophils # (0-0.2) k/uL Hypochromasia Poikilocytosis Anisocytosis Microcytosis PT (10.0-12.5) sec INR (<1.2) APTT (22.0-30.0) sec Sodium (137-145) mmol/L Potassium (3.5-5.1) mmol/L Chloride (98-107) mmol/L Carbon Dioxide (22-30) mmol/L Anion Gap mmol/L BUN (7-17) mg/dL Creatinine (0.52-1.04) mg/dL Est GFR (CKD-EPI)AfAm (>60 ml/min/1.73 sqM) Est GFR (CKD-EPI)NonAf (>60 ml/min/1.73 sqM) Glucose (74-99) mg/dL POC Glucose (mg/dL) (70-110) mg/dL POC Glu Manager Heavy Duty ID [address] Glu mg/dL 140 mg/dL Hemoglobin A1c 6.5 H (<=6.0) % Lactic Ac Sepsis Rflx Y Plasma Lactic Acid [place] (0.7-2.0) mmol/L Calcium (8.4-10.2) mg/dL Phosphorus (2.5-4.5) mg/dL Magnesium (1.6-2.3) mg/dL Total Bilirubin (0.2-1.3) mg/dL AST (14-36) U/L ALT (4-34) U/L Alkaline Phosphatase (38-126) U/L Troponin I (0.000-0.034) ng/mL C-Reactive Protein (<1.0) mg/dL Total Protein (6.3-8.2) g/dL Albumin (3.5-5.0) g/dL TSH (0.465-4.680) mIU/L Free T4 1.05 (0.78-2.19) ng/dL - EKG Data -: EKG Interpreted by Me (EKG is paced 106 OH 170 QRS 123 QTc 430) - Radiology Data Radiology results: report reviewed (Ultrasound positive for DVT x-ray negative for acute disease), image reviewed Disposition Clinical Impression: Cellulitis of left foot, Wound of foot, Left leg cellulitis, Weakness, Deep vein thrombosis (DVT) of lower extremity Disposition: ADMITTED IP TO THIS [facility] Condition: Serious Is patient prescribed a controlled substance at d/c from ED?: No Time of Disposition: 18:40
[2024-08-16 16:28] LABS: Anisocytosis Slight; Basophils % (A) 0 %; Eosinophils # (A) 0.2 k/uL (0-0.7); Eosinophils % (A) 3 %; HCT 34.7 % (34.0-46.0); HGB 10.1 gm/dL (11.4-16.0); Hypochromasia Marked; Lymphocytes # (A) 0.7 k/uL (1.0-4.8); Lymphocytes % (A) 12 %; MCH 23.8 pg (25.0-35.0); MCHC 29.2 g/dL (31.0-37.0); MCV 81.6 fL (80.0-100.0); Mean Platelet Volume 8.7; Microcytosis Slight; Monocytes # (A) 0.4 k/uL (0-1.0); Monocytes % (A) 6 %; Neutrophils # (A) 4.6 k/uL (1.3-7.7); Neutrophils % (A) 77 %; Platelet Count 179 k/uL (150-450); Poikilocytosis Moderate; RBC 4.25 m/uL (3.80-5.40); RDW 18.6 % (11.5-15.5); WBC 6.1 k/uL (3.8-10.6)
[2024-08-16] MEDS: SODIUM CHLORIDE 0.9% 1,000 ML IV STA (16:37)
[2024-08-16] MEDS: MORPHINE SULFATE 4 MG/ML SYRINGE IV STA (16:39)
[2024-08-16 16:42] LABS: INR 1.3 (<1.2); Partial Thromboplastin Time 26.2 sec (22.0-30.0); Prothrombin Time 13.3 sec (10.0-12.5)
[2024-08-16] MEDS: CLINDAMYCIN 600 MG in DEXTROSE 5% IN WATER 50 ML IVPB STA (16:42)
[2024-08-16] MEDS: cefTRIAXone IN SWFI 1,000 MG/10 ML SYRINGE IVP STA (16:42)
--- NOTE | 2024-08-16 16:42 | XR ---
EXAMINATION TYPE: XR femur RT DATE OF EXAM: 08/16/2024 4:37 PM CLINICAL INDICATION: Female, 48 years old with history of pain; [facility] COMPARISON: 05/21/2020. TECHNIQUE: XR femur RT examined in Frontal and lateral projections. FINDINGS: No evidence of acute osseous pathology, joint dislocation, or soft tissue swelling IMPRESSION: 1. Diffuse soft tissue edema without evidence of fracture. No evidence for osseous erosion these bel ow-knee amputation site. 2. No acute osseous pathology. [facility], , 08/16/2024 4:39 PM
[2024-08-16 17:22] LABS: ALT 11 U/L (4-34); AST 22 U/L (14-36); African American GFR (CKD) 39 (>60 ml/min/1.73 sqM); Albumin 3.8 g/dL (3.5-5.0); Alkaline Phosphatase 90 U/L (38-126); Anion Gap 13 mmol/L; Blood Urea Nitrogen 50 mg/dL (7-17); Calcium 8.6 mg/dL (8.4-10.2); Carbon Dioxide 20 mmol/L (22-30); Chloride 103 mmol/L (98-107); Glucose 106 mg/dL (74-99); Non-African American GFR(CKD) 34 (>60 ml/min/1.73 sqM); Phosphorus 4.6 mg/dL (2.5-4.5); Potassium 4.6 mmol/L (3.5-5.1); Sodium 136 mmol/L (137-145); Total Bilirubin 1.1 mg/dL (0.2-1.3); Total Protein 7.1 g/dL (6.3-8.2)
--- NOTE | 2024-08-16 17:55 | US ---
EXAMINATION TYPE: US venous doppler duplex LE DATE OF EXAM: 08/16/2024 5:38 PM COMPARISON: NONE CLINICAL INDICATION: Female, 48 years old with history of dvt; Pt states hx of DVT in left leg. Right leg amputee below the knee, left foot partial amputation. On thinners. right below knee amputation v cheryl inflamed, painful, red and hot to touch. Cellulitis SIDE PERFORMED: Bilateral TECHNIQUE: The lower extremity deep venous system is examined utilizing real time linear array sonog maggie with graded compression, doppler sonography and color-flow sonography. VESSELS IMAGED: Common Femoral Vein Deep Femoral Vein Greater Saphenous Vein * Femoral Vein Popliteal Vein Small Saphenous Vein * Proximal Calf Veins (* superficial vessels) Exam extremely limited due to body habitus Right Leg: Thready color flow seen mid fem V unable to compress, unable to visualize distal fem v. P roximal popliteal vein appears to have no color doppler flow seen within, unable to visualize mid/dis toney popliteal vein due to patient unable to move leg. Left Leg: Negative for DVT as best seen IMPRESSION: Positive deep vein thrombosis right lower extremity femoral vein to popliteal vein Findings communicated to Dr. Calvin Gee DO on 08/16/2024 5:[address] Miguel Valverde [facility], , 08/16/2024 5:53 PM
[2024-08-16 18:30] LABS: C Reactive Protein 2.9 mg/dL (<1.0)
[2024-08-16] MEDS ORDERED: ONDANSETRON 4 MG/2 ML VIAL IVP PRN (18:36)
[2024-08-16] MEDS ORDERED: HEPARIN SODIUM 1,000 UN/ML (10ML VL) IV PRN (18:40)
[2024-08-16] MEDS: HEPARIN SODIUM 1,000 UN/ML (10ML VL) IV ONE (19:17)
[2024-08-16] MEDS: HEPARIN SOD,PORK IN 0.45% NACL 25,000 UNIT in 0.45% NACL 1 250ML.BAG IV SCH (19:19)
[2024-08-16] MEDS: SODIUM CHLORIDE 0.9% 1,000 ML IV SCH (19:20)
[2024-08-16] MEDS: LEVOTHYROXINE IVP 100 MCG/5 ML VIAL IV STA (19:28)
[2024-08-17] MEDS: CLINDAMYCIN 600 MG in DEXTROSE 5% IN WATER 50 ML IVPB SCH (01:02)
[2024-08-17] MEDS: MORPHINE SULFATE 4 MG/ML SYRINGE IV PRN (01:07)
[2024-08-17 06:22] LABS: Glucose,Whole Blood 100 mg/dL (70-110)
[2024-08-17] MEDS ORDERED: DEXTROSE 50% SYRINGE 50 ML IVP PRN (08:34)
[2024-08-17 08:48] LABS: Basophils # (A) 0.04 X 10*3/uL (0.00-0.10); Basophils % (A) 0.3 %; Eosinophils # (A) 0.01 X 10*3/uL (0.04-0.35); Eosinophils % (A) 0.1 %; HCT 39.3 % (37.2-46.3); HGB 11.1 g/dL (12.0-15.0); Lymphocytes # (A) 0.28 X 10*3/uL (0.90-5.00); Lymphocytes % (A) 2.2 %; MCH 23.1 pg (27.0-32.0); MCHC 28.2 g/dL (32.0-37.0); MCV 81.9 FL (80.0-97.0); Mean Platelet Volume 10.4 FL (9.5-12.2); Monocytes # (A) 0.81 X 10*3/uL (0.20-1.00); Monocytes % (A) 6.3 %; NRBC Per 100 WBC 0 X 10*3/uL (0.00-0.01); Neutrophils # (A) 11.62 X 10*3/uL (1.80-7.70); Neutrophils % (A) 90.6 %; Platelet Count 228 X 10*3/uL (140-440); RDW 19.7 % (11.5-14.5); WBC 12.83 X 10*3/uL (4.50-10.00)
[2024-08-17] MEDS: NALOXONE 0.4 MG/ML 1 ML VIAL IV PRN (09:06)
[2024-08-17 09:28] LABS: ALT 27 U/L (8-44); AST 50 U/L (13-35); Albumin 4.2 g/dL (3.8-4.9); Albumin/Globulin Ratio 1.11 Ratio (1.60-3.17); Alkaline Phosphatase 114 U/L (41-126); Blood Urea Nitrogen 47.6 mg/dL (9.0-27.0); Calcium 8.8 mg/dL (8.7-10.3); Chloride 101 mmol/L (96-109); Globulin 3.8 g/dL (1.6-3.3); Glucose 101 mg/dL (70-110); Magnesium 2.1 mg/dL (1.5-2.4); Phosphorus 5.3 mg/dL (2.4-5.1); Potassium 5.3 mmol/L (3.5-5.5); Sodium 136 mmol/L (135-145); Total Bilirubin 1.7 mg/dL (0.3-1.2)
[2024-08-17 09:34] LABS: ABG Base Excess -6.4 mmol/L; ABG HCO3 21 mmol/L (21-25); ABG Oxygen Saturation 49.8 % (94-97); ABG PCO2 49 mmHg (35-45); ABG PH 7.24 (7.35-7.45); ABG TCO2 22 mmol/L (19-24); Allen Test Performed? Yes
[2024-08-17 09:42] LABS: ABG PO2 32 mmHg (83-108)
[2024-08-17 09:50] LABS: ABG HCO3 19 mmol/L (21-25); ABG Oxygen Saturation 94.4 % (94-97); ABG PCO2 44 mmHg (35-45); ABG PH 7.25 (7.35-7.45); ABG PO2 80 mmHg (83-108); ABG TCO2 20 mmol/L (19-24); Allen Test Performed? Yes
--- NOTE | 2024-08-17 10:15 | XR ---
EXAMINATION TYPE: XR chest 1V portable DATE OF EXAM: 08/17/2024 10:09 AM CLINICAL INDICATION: Female, 48 years old with history of infection; COMPARISON: Chest radiographs from 04/28/2024 TECHNIQUE: XR chest 1V portable Frontal view of the chest. FINDINGS: Lungs/Pleura: There is no evidence of pleural effusion, focal consolidation, or pneumothorax. Pulmonary vascularity: Unremarkable. Heart/mediastinum: Cardiomediastinal silhouette is enlarged. Atherosclerotic calcifications are seen in the aorta. Musculoskeletal: No acute osseous pathology. IMPRESSION: Cardiomegaly and mild pulmonary vascular congestion. Correlate with BNP for congestive heart failure. [facility], , 08/17/2024 10:13 AM
[2024-08-17] MEDS: ALPRAZolam 0.5 MG TAB PO SCH (11:14)
[2024-08-17 11:18] LABS: Glucose,Whole Blood 80 mg/dL (70-110)
[2024-08-17] MEDS: IPRATROPIUM-ALBUTEROL 3 ML NEB INHALATION PRN (11:22)
[2024-08-17] MEDS: GABAPENTIN 300 MG CAP PO SCH (11:23)
[2024-08-17] MEDS: LACOSAMIDE 50 MG TABLET PO SCH (11:30)
[2024-08-17] MEDS: NYSTATIN 100,000 UNIT/GM POWD 15 GM TOPICAL SCH (11:38)
--- NOTE | 2024-08-17 12:56 | P.GSCN ---
History of Present Illness Consult date: 08/17/24 Reason for Consult: Right lower extremity DVT Requesting physician: Rosanne Eldridge History of present illness: This is a pleasant 48-year-old female with multiple comorbidities who states she presented to the hospital due to a seizure. 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 Patient keeps drifting off during this interview. According to the patient's emergency department records she came in for lower extremity redness and swelling. She had a venous duplex reporting right DVT femoral to popliteal vein. She was started on a heparin drip. Vascular surgery was consulted for right lower extremity DVT. Patient states she has a history of a right lower extremity DVT diagnosed about 2 years ago and has been on Eliquis 5 mg twice a day. Patient states she has been compliant with her medication. She does report pain in her right lower extremity. She denies any shortness of breath or chest pain at this time. Of her amputations were done by Dr. Hurd patient believes in 2011 can [place] to wounds from her diabetes. Review of Systems A 14 point review systems was completed all pertinent positives and negatives as stated in the HPI. Past Medical History Past Medical History: Asthma, Heart Failure, COPD, CVA/TIA, Diabetes Mellitus, Deep Vein Thrombosis (DVT), Hypertension, Myocardial Infarction ([place]), Pneumonia, Seizure Disorder, Seizure Disorder Additional Past Medical History / Comment(s): uses a wheelchair. Patient states last seizure summer 2019 while she was at [facility]. cardiomyopathy sepsis hx Last Myocardial Infarction Date:: 06/2018 History of Any Multi-Drug Resistant Organisms: ESBL, VRE, VRE Year Discovered:: 12/18/20 ESBL E.coli; 04/22/17 VRE MDRO Source:: ESBL Left foot; VRE Right Foot Past Surgical History: Adenoidectomy, AICD, Section, Heart Catheterization, Orthopedic Surgery, Pacemaker, Tonsillectomy Additional Past Surgical History / Comment(s): AICD - [employer]. has pacemaker defibrillator, right all toe amputated 04/2016, R BKA 2019, LT GREAT TOE then left foot partial amputation, cardiac cath 2022 Past Anesthesia/Blood Transfusion Reactions: Postoperative Nausea & Vomiting (PONV) Type of Cardiac Device: Biventricular Pacemaker, Permanent Pacemaker, AICD Device Placement Date:: 2011 Past Psychological History: Bipolar Additional Psychological History / Comment(s): She is wheelchair bound/transfers self. She has a glucometer and nebulizer. Smoking Status: Never smoker Past Alcohol Use History: None Reported Additional Past Alcohol Use History / Comment(s): quit 2017 Past Drug Use History: Marijuana Additional Drug Use History / Comment(s): Pt smokes marijuana at HS for a sleep aide or for pain control - Past Family History Mother Family Medical History: Unable to Obtain, Deep Vein Thrombosis (DVT) Additional Family Medical History / Comment(s): Some type of heart problems, kidney failure. Father History Unknown: Yes Family Medical History: Unable to Obtain Additional Family Medical History / Comment(s): Patient denies knowing any medical history on her father. Medications and Allergies Home Medications Medication Instructions Recorded Confirmed Type Insulin Glargine [Lantus Vial] 40 unit SQ HS 04/30/19 08/16/24 History Pantoprazole [Protonix] 40 mg PO DAILY 01/29/24 08/16/24 History Apixaban [Eliquis] 5 mg PO BID 04/19/24 08/16/24 History Bumetanide [BUMEX] 2 mg PO DAILY 04/19/24 08/16/24 History Sacubitril/Valsartan [Entresto 49 1 tab PO BID 04/19/24 08/16/24 History mg-51 mg Tablet] ALPRAZolam [Xanax] 0.5 mg PO BID 08/16/24 08/16/24 History Gabapentin 600 mg PO TID 08/16/24 08/16/24 History Ipratropium-Albuterol Nebulize 3 ml INHALATION RT-TID PRN 08/16/24 08/16/24 History [Duoneb 0.5 mg-3 mg/3 ml Soln] Lacosamide [Vimpat] 50 mg PO BID 08/16/24 08/16/24 History Allergies Allergy/AdvReac Type Severity Reaction Status Date / Time Penicillins Allergy Rash/Hives Verified 08/16/24 17:58 vancomycin Allergy Rash/Hives Verified 08/16/24 17:58 ondansetron [From Zofran] AdvReac Nausea & Verified 08/16/24 17:58 Vomiting Surgical - Exam Vital Signs Temp Pulse Resp BP Pulse Ox 98.3 F 100 20 106/75 98 08/16/24 15:45 08/16/24 15:45 08/16/24 15:45 08/16/24 15:45 08/16/24 15:45 General appearance: The patient is alert, oriented, appears in no acute distress. Morbidly obese HET: Head is normocephalic and atraumatic. Neck: Supple. Heart: Regular. Lungs: Equal expansion, normal respiratory effort. Abdomen: Soft, nontender, nondistended. Extremities: Right below the knee amputation with erythema. Left lower extremity TMA well-healed. Neurological: No focal deficits. Drifts off frequently. Results - Labs 08/17/24 06:15 08/17/24 06:15 Abnormal Lab Results - Last 24 Hours (Table) 08/16/24 08/16/24 08/16/24 Range/Units 15:52 16:17 16:17 WBC (4.50-10.00) X 10*3/uL Hgb 10.1 L (11.4-16.0) gm/dL MCH 23.8 L (25.0-35.0) pg MCHC 29.2 L (31.0-37.0) g/dL RDW 18.6 H (11.5-15.5) % Immature Gran # (0.00-0.04) X 10*3/uL Neutrophils # (1.80-7.70) X 10*3/uL Lymphocytes # 0.7 L (1.0-4.8) k/uL Eosinophils # (0.04-0.35) X 10*3/uL PT 13.3 H (10.0-12.5) sec INR 1.3 H (<1.2) APTT (22.0-30.0) sec ABG pH (7.35-7.45) ABG pCO2 (35-45) mmHg ABG pO2 (83-108) mmHg ABG HCO3 (21-25) mmol/L ABG O2 Saturation (94-97) % Hemoglobin (11.4-16.0) gm/dL Sodium (137-145) mmol/L Carbon Dioxide (22-30) mmol/L Anion Gap (4.00-12.00) mmol/L BUN (7-17) mg/dL Creatinine (0.52-1.04) mg/dL Est GFR (CKD-EPI) (>=60) BUN/Creatinine Ratio (12.00-20.00) Ratio Glucose (74-99) mg/dL POC Glucose (mg/dL) 113 H (70-110) mg/dL Plasma Lactic Acid Warren (0.7-2.0) mmol/L Phosphorus (2.5-4.5) mg/dL Total Bilirubin (0.3-1.2) mg/dL AST (13-35) U/L C-Reactive Protein (<1.0) mg/dL Globulin (1.6-3.3) g/dL Albumin/Globulin Ratio (1.60-3.17) Ratio TSH (0.465-4.680) mIU/L 08/16/24 08/16/24 08/17/24 Range/Units 16:17 16:17 00:00 WBC (4.50-10.00) X 10*3/uL Hgb (11.4-16.0) gm/dL MCH (25.0-35.0) pg MCHC (31.0-37.0) g/dL RDW (11.5-15.5) % Immature Gran # (0.00-0.04) X 10*3/uL Neutrophils # (1.80-7.70) X 10*3/uL Lymphocytes # (1.0-4.8) k/uL Eosinophils # (0.04-0.35) X 10*3/uL PT (10.0-12.5) sec INR (<1.2) APTT 79.4 H (22.0-30.0) sec ABG pH (7.35-7.45) ABG pCO2 (35-45) mmHg ABG pO2 (83-108) mmHg ABG HCO3 (21-25) mmol/L ABG O2 Saturation (94-97) % Hemoglobin (11.4-16.0) gm/dL Sodium 136 L (137-145) mmol/L Carbon Dioxide 20 L (22-30) mmol/L Anion Gap (4.00-12.00) mmol/L BUN 50 H (7-17) mg/dL Creatinine 1.73 H (0.52-1.04) mg/dL Est GFR (CKD-EPI) (>=60) BUN/Creatinine Ratio (12.00-20.00) Ratio Glucose 106 H (74-99) mg/dL POC Glucose (mg/dL) (70-110) mg/dL Plasma Lactic Acid Warren 2.2 H* (0.7-2.0) mmol/L Phosphorus 4.6 H (2.5-4.5) mg/dL Total Bilirubin (0.3-1.2) mg/dL AST (13-35) U/L C-Reactive Protein 2.9 H (<1.0) mg/dL Globulin (1.6-3.3) g/dL Albumin/Globulin Ratio (1.60-3.17) Ratio TSH 27.600 H (0.465-4.680) mIU/L 08/17/24 08/17/24 08/17/24 Range/Units 06:15 06:15 09:31 WBC 12.83 H (4.50-10.00) X 10*3/uL Hgb 11.1 L (11.4-16.0) gm/dL MCH 23.1 L (25.0-35.0) pg MCHC 28.2 L (31.0-37.0) g/dL RDW 19.7 H (11.5-15.5) % Immature Gran # 0.07 H (0.00-0.04) X 10*3/uL Neutrophils # 11.62 H (1.80-7.70) X 10*3/uL Lymphocytes # 0.28 L (1.0-4.8) k/uL Eosinophils # 0.01 L (0.04-0.35) X 10*3/uL PT (10.0-12.5) sec INR (<1.2) APTT (22.0-30.0) sec ABG pH 7.24 L (7.35-7.45) ABG pCO2 49 H (35-45) mmHg ABG pO2 32 L* (83-108) mmHg ABG HCO3 (21-25) mmol/L ABG O2 Saturation 49.8 L (94-97) % Hemoglobin 10.8 L (11.4-16.0) gm/dL Sodium (137-145) mmol/L Carbon Dioxide 16.0 L (22-30) mmol/L Anion Gap 19.00 H (4.00-12.00) mmol/L BUN 47.6 H (7-17) mg/dL Creatinine 2.0 H (0.52-1.04) mg/dL Est GFR (CKD-EPI) 30 L (>=60) BUN/Creatinine Ratio 23.80 H (12.00-20.00) Ratio Glucose (74-99) mg/dL POC Glucose (mg/dL) (70-110) mg/dL Plasma Lactic Acid Warren (0.7-2.0) mmol/L Phosphorus 5.3 H (2.5-4.5) mg/dL Total Bilirubin 1.7 H (0.3-1.2) mg/dL AST 50 H (13-35) U/L C-Reactive Protein (<1.0) mg/dL Globulin 3.8 H (1.6-3.3) g/dL Albumin/Globulin Ratio 1.11 L (1.60-3.17) Ratio TSH (0.465-4.680) mIU/L 08/17/24 Range/Units 09:47 WBC (4.50-10.00) X 10*3/uL Hgb (11.4-16.0) gm/dL MCH (25.0-35.0) pg MCHC (31.0-37.0) g/dL RDW (11.5-15.5) % Immature Gran # (0.00-0.04) X 10*3/uL Neutrophils # (1.80-7.70) X 10*3/uL Lymphocytes # (1.0-4.8) k/uL Eosinophils # (0.04-0.35) X 10*3/uL PT (10.0-12.5) sec INR (<1.2) APTT (22.0-30.0) sec ABG pH 7.25 L (7.35-7.45) ABG pCO2 (35-45) mmHg ABG pO2 80 L (83-108) mmHg ABG HCO3 19 L (21-25) mmol/L ABG O2 Saturation (94-97) % Hemoglobin 11.0 L (11.4-16.0) gm/dL Sodium (137-145) mmol/L Carbon Dioxide (22-30) mmol/L Anion Gap (4.00-12.00) mmol/L BUN (7-17) mg/dL Creatinine (0.52-1.04) mg/dL Est GFR (CKD-EPI) (>=60) BUN/Creatinine Ratio (12.00-20.00) Ratio Glucose (74-99) mg/dL POC Glucose (mg/dL) (70-110) mg/dL Plasma Lactic Acid Warren (0.7-2.0) mmol/L Phosphorus (2.5-4.5) mg/dL Total Bilirubin (0.3-1.2) mg/dL AST (13-35) U/L C-Reactive Protein (<1.0) mg/dL Globulin (1.6-3.3) g/dL Albumin/Globulin Ratio (1.60-3.17) Ratio TSH (0.465-4.680) mIU/L Diabetes panel 08/16/24 08/17/24 Range/Units 16:17 06:15 Sodium 136 L 136 (137-145) mmol/L Potassium 4.6 5.3 (3.5-5.1) mmol/L Chloride 103 101 (98-107) mmol/L Carbon Dioxide 20 L 16.0 L (22-30) mmol/L BUN 50 H 47.6 H (7-17) mg/dL Creatinine 1.73 H 2.0 H (0.52-1.04) mg/dL Glucose 106 H 101 (74-99) mg/dL Calcium 8.6 8.8 (8.4-10.2) mg/dL AST 22 50 H (14-36) U/L ALT 11 27 (4-34) U/L Alkaline Phosphatase 90 114 (38-126) U/L Total Protein 7.1 8.0 (6.3-8.2) g/dL Albumin 3.8 4.2 (3.5-5.0) g/dL Thyroid panel 08/16/24 Range/Units 16:17 TSH 27.600 H (0.465-4.680) mIU/L Calcium panel 08/16/24 08/17/24 Range/Units 16:17 06:15 Calcium 8.6 8.8 (8.4-10.2) mg/dL Phosphorus 4.6 H 5.3 H (2.5-4.5) mg/dL Albumin 3.8 4.2 (3.5-5.0) g/dL Pituitary panel 08/16/24 08/17/24 Range/Units 16:17 06:15 Sodium 136 L 136 (137-145) mmol/L Potassium 4.6 5.3 (3.5-5.1) mmol/L Chloride 103 101 (98-107) mmol/L Carbon Dioxide 20 L 16.0 L (22-30) mmol/L BUN 50 H 47.6 H (7-17) mg/dL Creatinine 1.73 H 2.0 H (0.52-1.04) mg/dL Glucose 106 H 101 (74-99) mg/dL Calcium 8.6 8.8 (8.4-10.2) mg/dL TSH 27.600 H (0.465-4.680) mIU/L Adrenal panel 08/16/24 08/17/24 Range/Units 16:17 06:15 Sodium 136 L 136 (137-145) mmol/L Potassium 4.6 5.3 (3.5-5.1) mmol/L Chloride 103 101 (98-107) mmol/L Carbon Dioxide 20 L 16.0 L (22-30) mmol/L BUN 50 H 47.6 H (7-17) mg/dL Creatinine 1.73 H 2.0 H (0.52-1.04) mg/dL Glucose 106 H 101 (74-99) mg/dL Calcium 8.6 8.8 (8.4-10.2) mg/dL Total Bilirubin 1.1 1.7 H (0.2-1.3) mg/dL AST 22 50 H (14-36) U/L ALT 11 27 (4-34) U/L Alkaline Phosphatase 90 114 (38-126) U/L Total Protein 7.1 8.0 (6.3-8.2) g/dL Albumin 3.8 4.2 (3.5-5.0) g/dL - Imaging Comments: Lower extremity venous doppler reports positive deep vein thrombosis right lower extremity femoral vein to popliteal vein Assessment and Plan Assessment: 1. Right lower extremity DVT on Eliquis likely secondary to immobility 2. Previous right lower extremity DVT 3. Morbid obesity 4. Previous right BKA, left TMA 5. Diabetes mellitus 6. Nonambulatory 7. Seizure disorder Plan: 1. Continue IV heparin drip 2. Consult hematology for failed therapy, patient currently on Eliquis 5 mg twice daily and states she is compliant 3. No indication for vascular surgical intervention Thank you for this consultation, we will continue to follow. The impression and plan of care has been dictated as directed. Dr. Bourne I performed a history and examination of this patient, discussed the same with the dictator. I agree with the dictator's note ,documented as a scribe. Any additional findings or plans will be noted.
[2024-08-17] MEDS: INSULIN ASPART (NovoLOG) 100 UNIT/ML VIAL SQ SCH (13:00)
[2024-08-17] MEDS: LEVOTHYROXINE 50 MCG TAB PO SCH (13:04)
[2024-08-17] MEDS: BUMETANIDE 1 MG TAB PO SCH (13:04)
--- NOTE | 2024-08-17 14:14 | P.HPIM ---
History of Present Illness H&P Date: 08/17/24 Patient is a 48-year-old female with a past medical history of right lower extremity DVT maintained on Eliquis, right BKA, and left TMA who presented to the emergency department with severe right lower extremity pain and recent falls from her wheelchair during transfers. She is a poor historian at the time of the interview. She is very lethargic and falls asleep while answering questionsAO x 2. She rarely opens her eyes without stimulus. During the interview she is noted to have increased respiratory effort, respiratory rate of 10-12, and small sluggish pupils. Narcan was administered and patient became more alert and respiratory rate improved to 16, AOx3, now able to complete full sentences but remains with eyes closed unless prompted to open. Now she states that she has been having bilateral lower extremity pain worse on the right with erythema and swelling of the right lower extremity. She reports compliance with her medications. She also reports some abdominal pain with a few episodes of vomitingappears nonbloody. She endorses pain in the right lower extremity. She denies chest pain, shortness of breath, current abdominal pain, nausea, vomiting. Femur x-ray unremarkable. Bilateral lower extremity venous Doppler showed positive right lower extremity DVT femoral vein to popliteal vein. EKG shows pacing by AICD. WBC 6.1, hemoglobin 10.1, platelets 179, PT 13.3, INR 1.3, sodium 136, potassium 4.6, CO2 20, creatinine 1.73, GFR 34, lactic acid 2.2, phosphorus 4.6, CRP 2.9, TSH 27.6. Afebrile, normotensive, tachycardic in the low 100s saturating well on room air. ED documentation reviewed. Review of systems: ROS limited due to altered mental status. Pertinent positives and negatives as discussed in HPI. Family history: Unable to obtain Social history: Tobacco: Former smoker Alcohol: Denies Recreational drugs: Marijuana Physical examination: Vital signs are reviewed. General: No acute distress. Arousable, oriented x 3. Morbidly obese. HEENT: Head exam is unremarkable. Lateral third of eyebrows thinning. EOMI bilaterally. ACs patent. Nares patent. Lungs: Bilateral breath sounds present; no rhonchi, wheezes, or rales. Heart: Rate and rhythm are regular. S1-S2 present. No murmur/rub/gallops. Abdomen: Soft, nontender, nondistended. Bowel sounds present. Extremities: Right BKA with warmth and erythema. Left TMA with ulcer on bottom and LLE cellulitis. Psych: Normal affect and mood. Cooperative. Assessment/Plan: Acute toxic encephalopathy secondary to medications Acute metabolic encephalopathy Discontinue morphine Discontinue Xanax Discontinue Neurontin Right lower extremity deep vein thrombosis Results of ultrasound of lower extremities noted Continue heparin Consult vascular surgery Acute respiratory failure Consult pulmonology Left lower extremity cellulitis Monitor vital sign monitor CBC Monitor CMP Continue antibiotics Consult infectious disease Consult wound care Hypothyroidism Start levothyroxine 50 mcg daily Chronic systolic CHF Discontinue IV fluids Resume blood pressure medications as tolerated Acute on chronic kidney disease stage IIIb Discontinue IV fluids Continue Bumex Diabetes mellitus type 2 Monitor glucose Insulin sliding scale History of seizures Continue Vimpat DVT prophylaxis: Heparin Chronic conditions: Recurrent DVTs, systolic CHF, chronic kidney disease stage IIIb, diabetes mellitus type 2, seizures The patient is admitted with an anticipated more than 2 midnight stay for evaluation of right lower extremity pain CODE STATUS: Full code Discussed with: Patient Anticipated discharge place: Home Attestation I have seen and examined this patient with my resident , discussed the same with the resident/ANTONIA, and agree with the dictator's assessment and plan as written Dr. Yash davidson Past Medical History Past Medical History: Asthma, Heart Failure, COPD, CVA/TIA, Diabetes Mellitus, Deep Vein Thrombosis (DVT), Hypertension, Myocardial Infarction ([place]), Pneumonia, Seizure Disorder, Seizure Disorder Additional Past Medical History / Comment(s): uses a wheelchair. Patient states last seizure summer 2019 while she was at [facility]. 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 has pacemaker defibrillator, right all toe amputated 04/2016, R BKA 2019, LT GREAT TOE then left foot partial amputation, cardiac cath 2023 Past Anesthesia/Blood Transfusion Reactions: Postoperative Nausea & Vomiting (PONV) Type of Cardiac Device: Biventricular Pacemaker, Permanent Pacemaker, AICD Device Placement Date:: 2011 Past Psychological History: Bipolar Additional Psychological History / Comment(s): She is wheelchair bound/transfers self. She has a glucometer and nebulizer. Smoking Status: Never smoker Past Alcohol Use History: None Reported Additional Past Alcohol Use History / Comment(s): quit 2017 Past Drug Use History: Marijuana Additional Drug Use History / Comment(s): Pt smokes marijuana at HS for a sleep aide or for pain control - Past Family History Mother Family Medical History: Unable to Obtain, Deep Vein Thrombosis (DVT) Additional Family Medical History / Comment(s): Some type of heart problems, kidney failure. Father History Unknown: Yes Family Medical History: Unable to Obtain Additional Family Medical History / Comment(s): Patient denies knowing any medical history on her father. Medications and Allergies Home Medications Medication Instructions Recorded Confirmed Type Insulin Glargine [Lantus Vial] 40 unit SQ HS 04/30/19 08/16/24 History Pantoprazole [Protonix] 40 mg PO DAILY 01/29/24 08/16/24 History Apixaban [Eliquis] 5 mg PO BID 04/19/24 08/16/24 History Bumetanide [BUMEX] 2 mg PO DAILY 04/19/24 08/16/24 History Sacubitril/Valsartan [Entresto 49 1 tab PO BID 04/19/24 08/16/24 History mg-51 mg Tablet] ALPRAZolam [Xanax] 0.5 mg PO BID 08/16/24 08/16/24 History Gabapentin 600 mg PO TID 08/16/24 08/16/24 History Ipratropium-Albuterol Nebulize 3 ml INHALATION RT-TID PRN 08/16/24 08/16/24 History [Duoneb 0.5 mg-3 mg/3 ml Soln] Lacosamide [Vimpat] 50 mg PO BID 08/16/24 08/16/24 History Allergies Allergy/AdvReac Type Severity Reaction Status Date / Time Penicillins Allergy Rash/Hives Verified 08/16/24 17:58 vancomycin Allergy Rash/Hives Verified 08/16/24 17:58 ondansetron [From Zofran] AdvReac Nausea & Verified 08/16/24 17:58 Vomiting Physical Exam Vitals: Vital Signs Temp Pulse Pulse Resp BP BP Pulse Ox 08/17/24 01:50 98.4 F 114 H 19 131/82 97 08/17/24 01:25 18 08/16/24 22:47 18 08/16/24 21:39 97.5 F L 105 H 19 125/85 98 08/16/24 21:22 101 H 16 126/87 99 08/16/24 18:43 98.3 F 107 H 19 105/72 92 L 08/16/24 15:45 98.3 F 100 20 106/75 98 Intake and Output 08/16/24 08/16/24 08/17/24 14:59 22:59 06:59 Intake Total 250 Balance 250 Intake: Intake, IV Titration 250 Amount Heparin Sod,Pork in 0.45% 250 NaCl 25,000 unit In 0.45 % NaCl 1 250ml.bag @ 16. 902 UNITS/KG/HR 23 mls/hr IV .[id number] [facility] Rx#: [id number] Other: Voiding Method External Catheter Weight 136.078 kg Results CBC & Chem 7: 08/18/24 07:14 08/18/24 07:14 Labs: Abnormal Lab Results - Last 24 Hours (Table) 08/16/24 08/16/24 08/16/24 Range/Units 15:52 16:17 16:17 Hgb 10.1 L (11.4-16.0) gm/dL MCH 23.8 L (25.0-35.0) pg MCHC 29.2 L (31.0-37.0) g/dL RDW 18.6 H (11.5-15.5) % Lymphocytes # 0.7 L (1.0-4.8) k/uL PT 13.3 H (10.0-12.5) sec INR 1.3 H (<1.2) APTT (22.0-30.0) sec Sodium (137-145) mmol/L Carbon Dioxide (22-30) mmol/L BUN (7-17) mg/dL Creatinine (0.52-1.04) mg/dL Glucose (74-99) mg/dL POC Glucose (mg/dL) 113 H (70-110) mg/dL Plasma Lactic Acid Warren (0.7-2.0) mmol/L Phosphorus (2.5-4.5) mg/dL C-Reactive Protein (<1.0) mg/dL TSH (0.465-4.680) mIU/L 08/16/24 08/16/24 08/17/24 Range/Units 16:17 16:17 00:00 Hgb (11.4-16.0) gm/dL MCH (25.0-35.0) pg MCHC (31.0-37.0) g/dL RDW (11.5-15.5) % Lymphocytes # (1.0-4.8) k/uL PT (10.0-12.5) sec INR (<1.2) APTT 79.4 H (22.0-30.0) sec Sodium 136 L (137-145) mmol/L Carbon Dioxide 20 L (22-30) mmol/L BUN 50 H (7-17) mg/dL Creatinine 1.73 H (0.52-1.04) mg/dL Glucose 106 H (74-99) mg/dL POC Glucose (mg/dL) (70-110) mg/dL Plasma Lactic Acid Warren 2.2 H* (0.7-2.0) mmol/L Phosphorus 4.6 H (2.5-4.5) mg/dL C-Reactive Protein 2.9 H (<1.0) mg/dL TSH 27.600 H (0.465-4.680) mIU/L
--- NOTE | 2024-08-17 15:30 | P.CONS ---
History of Present Illness - Reason for Consult Consult date: 08/17/24 DVT , On Eliquis - History of Present Illness She is a 48-year-old white female, with multiple medical problems. The pat ient came in because of pain and swelling in the right lower extremity, as well as increased weakness leading to false from her wheelchair while transferring. The patient has a right BKA. She is maintained on Eliquis 5 mg twice a day, for history of right lower extremity DVT, as well as a prior history of cardiac thrombosis and splenic infarct. The patient on exam was noted to have swelling and dusky discoloration of the right lower extremity leading to venous Dopplers, these were negative on the left, and showed clot extending from the femoral to the popliteal vein. A portion of this could be chronic, as 30 flow was noted in the more proximal portion of the clot, with no flow in the lower aspect. On initial H&P, the patient claimed good compliance with her medication. Therefore there was concern for Eliquis failure. Consult was placed for the same. In the meantime the patient was started on IV heparin. At the time of my evaluation the patient was lethargic and sleepy, and would fall asleep during our conversation. When awake, her complaints and appeared to be adequate with coherent answers. Recall was not totally reliable however. She did that she had been on Eliquis now for about 2-2 and half years, for a clot in the right leg. Extensive review of her history in the EMR had shown that she had been placed on liquids initially in March 2019 for cardiac thrombosis splenic infarct. When reminded him that, the patient stated that she remembered the same. According to her she had taken it for some time, and then stopped it. Apparently this was resumed after the diagnosis of the DVT. She did not recall at which hospital the right lower extremity DVT was diagnosed. On detailed questioning, the patient stated that she had forgotten to take doses "in the past", but had been taking them lately. On more detailed questioning about timing of the diagnosis, she stated that she had been taking both the Eliquis pills at night for the past year, and not twice a day as directed She denied any side effects such as bleeding or bruising with the Eliquis. The patient had been similarly lethargic at the time of admission, with diminished respiratory rate. This had improved with Narcan partially. She denied any chest pain. Review of Systems Constitutional: Reports fatigue, Reports weakness Eyes: denies blurred vision, denies pain Ears: deny: decreased hearing, ear discharge, earache, tinnitus Ears, nose, mouth and throat: Denies headache, Denies sore throat Cardiovascular: Reports as per HPI, Reports dyspnea on exertion Respiratory: Reports as per HPI Gastrointestinal: Denies abdominal pain, Denies diarrhea, Denies nausea, Denies vomiting Genitourinary: Denies dysuria, Denies hematuria Musculoskeletal: Reports as per HPI, Reports shooting leg pain Integumentary: Reports as per HPI, Reports color changes, Reports darkening of skin Neurological: Reports as per HPI, Reports change in mentation, Reports memory loss, Reports weakness Psychiatric: Reports as per HPI, Reports memory loss, Reports suicidal ideation (Admitted for the same earlier this year. Denied any currently) Endocrine: Reports fatigue Hematologic/Lymphatic: Reports as per HPI, Reports thrombophilia Past Medical History Past Medical History: Asthma, Heart Failure, COPD, CVA/TIA, Diabetes Mellitus, Deep Vein Thrombosis (DVT), Hypertension, Myocardial Infarction ([place]), Pneumonia, Seizure Disorder, Seizure Disorder Additional Past Medical History / Comment(s): uses a wheelchair. Patient states last seizure summer 2019 while she was at [facility]. 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 has pacemaker defibrillator, right all toe amputated 04/2016, R BKA 2019, LT GREAT TOE then left foot partial amputation, cardiac cath 2022 Past Anesthesia/Blood Transfusion Reactions: Postoperative Nausea & Vomiting (PONV) Type of Cardiac Device: Biventricular Pacemaker, Permanent Pacemaker, AICD Device Placement Date:: 2011 Past Psychological History: Bipolar Additional Psychological History / Comment(s): She is wheelchair bound/transfers self. She has a glucometer and nebulizer. Smoking Status: Never smoker Past Alcohol Use History: None Reported Additional Past Alcohol Use History / Comment(s): quit 2017 Past Drug Use History: Marijuana Additional Drug Use History / Comment(s): Pt smokes marijuana at HS for a sleep aide or for pain control - Past Family History Mother Family Medical History: Unable to Obtain, Deep Vein Thrombosis (DVT) Additional Family Medical History / Comment(s): Some type of heart problems, kidney failure. Father History Unknown: Yes Family Medical History: Unable to Obtain Additional Family Medical History / Comment(s): Patient denies knowing any medical history on her father. Medications and Allergies Home Medications Medication Instructions Recorded Confirmed Type Insulin Glargine [Lantus Vial] 40 unit SQ HS 04/30/19 08/16/24 History Pantoprazole [Protonix] 40 mg PO DAILY 01/29/24 08/16/24 History Apixaban [Eliquis] 5 mg PO BID 04/19/24 08/16/24 History Bumetanide [BUMEX] 2 mg PO DAILY 04/19/24 08/16/24 History Sacubitril/Valsartan [Entresto 49 1 tab PO BID 04/19/24 08/16/24 History mg-51 mg Tablet] ALPRAZolam [Xanax] 0.5 mg PO BID 08/16/24 08/16/24 History Gabapentin 600 mg PO TID 08/16/24 08/16/24 History Ipratropium-Albuterol Nebulize 3 ml INHALATION RT-TID PRN 08/16/24 08/16/24 His tory [Duoneb 0.5 mg-3 mg/3 ml Soln] Lacosamide [Vimpat] 50 mg PO BID 08/16/24 08/16/24 History Allergies Allergy/AdvReac Type Severity Reaction Status Date / Time Penicillins Allergy Rash/Hives Verified 08/16/24 17:58 vancomycin Allergy Rash/Hives Verified 08/16/24 17:58 ondansetron [From Zofran] AdvReac Nausea & Verified 08/16/24 17:58 Vomiting Physical Exam Vitals: Vital Signs Temp Pulse Pulse Pulse Resp BP BP 08/17/24 11:31 80 08/17/24 11:23 84 08/17/24 09:13 121 H 16 112/73 09/20/24 09:06 12 08/17/24 08:32 08/17/24 07:55 98.1 F 120 H 12 102/62 08/17/24 07:27 98.6 F 114 H 18 08/17/24 01:50 98.4 F 114 H 19 08/17/24 01:25 18 08/16/24 22:47 18 08/16/24 21:39 97.5 F L 105 H 19 08/16/24 21:22 101 H 16 126/87 08/16/24 18:43 98.3 F 107 H 19 105/72 08/16/24 15:45 98.3 F 100 20 106/75 BP Pulse Ox 08/17/24 11:31 08/17/24 11:23 08/17/24 09:13 93 L 08/17/24 09:06 08/17/24 08:32 94 L 08/17/24 07:55 93 L 08/17/24 07:27 104/65 92 L 08/17/24 01:50 131/82 97 08/17/24 01:25 08/16/24 22:47 08/16/24 21:39 125/85 98 08/16/24 21:22 99 08/16/24 18:43 92 L 08/16/24 15:45 98 Intake and Output 08/17/24 08/17/24 08/17/24 06:59 14:59 22:59 Intake Total 250 144.133 Output Total 850 Balance -600 144.133 Intake: Intake, IV Titration 250 144.133 Amount Heparin Sod,Pork in 0.45% 250 144.133 NaCl 25,000 unit In 0.45 % NaCl 1 250ml.bag @ 16. 902 UNITS/KG/HR 23 mls/hr IV .[id number] [facility] Rx#: [id number] Output: Urine 850 Other: Voiding Method External Catheter External Catheter Sleeping but arousable. Very lethargic. Falls asleep in between, during conversation - Constitutional General appearance: no acute distress - EENT Eyes: EOMI, PERRLA ENT: hearing grossly normal, normal oropharynx - Neck Neck: no lymphadenopathy - Respiratory Respiratory: bilateral: CTA - Cardiovascular Rhythm: regular Heart sounds: normal: S1, S2 - Gastrointestinal General gastrointestinal: normal bowel sounds, soft - Integumentary Right lower extremity skin appears to be congested with dusky discoloration - Neurologic Neurologic: CNII-XII intact - Musculoskeletal Musculoskeletal: generalized weakness, strength equal bilaterally - Psychiatric Mental status as described. Comprehension, when awake appears to be adequate. Answers are coherent. Results CBC & Chem 7: 08/17/24 06:15 08/17/24 06:15 Labs: Abnormal Lab Results - Last 24 Hours (Table) 08/16/24 08/16/24 08/16/24 Range/Units 15:52 16:17 16:17 WBC (4.50-10.00) X 10*3/uL Hgb 10.1 L (11.4-16.0) gm/dL MCH 23.8 L (25.0-35.0) pg MCHC 29.2 L (31.0-37.0) g/dL RDW 18.6 H (11.5-15.5) % Immature Gran # (0.00-0.04) X 10*3/uL Neutrophils # (1.80-7.70) X 10*3/uL Lymphocytes # 0.7 L (1.0-4.8) k/uL Eosinophils # (0.04-0.35) X 10*3/uL PT 13.3 H (10.0-12.5) sec INR 1.3 H (<1.2) APTT (22.0-30.0) sec ABG pH (7.35-7.45) ABG pCO2 (35-45) mmHg ABG pO2 (83-108) mmHg ABG HCO3 (21-25) mmol/L ABG O2 Saturation (94-97) % Hemoglobin (11.4-16.0) gm/dL Sodium (137-145) mmol/L Carbon Dioxide (22-30) mmol/L Anion Gap (4.00-12.00) mmol/L BUN (7-17) mg/dL Creatinine (0.52-1.04) mg/dL Est GFR (CKD-EPI) (>=60) BUN/Creatinine Ratio (12.00-20.00) Ratio Glucose (74-99) mg/dL POC Glucose (mg/dL) 113 H (70-110) mg/dL Plasma Lactic Acid Warren (0.7-2.0) mmol/L Phosphorus (2.5-4.5) mg/dL Total Bilirubin (0.3-1.2) mg/dL AST (13-35) U/L C-Reactive Protein (<1.0) mg/dL Globulin (1.6-3.3) g/dL Albumin/Globulin Ratio (1.60-3.17) Ratio TSH (0.465-4.680) mIU/L 08/16/24 08/16/24 08/17/24 Range/Units 16:17 16:17 00:00 WBC (4.50-10.00) X 10*3/uL Hgb (11.4-16.0) gm/dL MCH (25.0-35.0) pg MCHC (31.0-37.0) g/dL RDW (11.5-15.5) % Immature Gran # (0.00-0.04) X 10*3/uL Neutrophils # (1.80-7.70) X 10*3/uL Lymphocytes # (1.0-4.8) k/uL Eosinophils # (0.04-0.35) X 10*3/uL PT (10.0-12.5) sec INR (<1.2) APTT 79.4 H (22.0-30.0) sec ABG pH (7.35-7.45) ABG pCO2 (35-45) mmHg ABG pO2 (83-108) mmHg ABG HCO3 (21-25) mmol/L ABG O2 Saturation (94-97) % Hemoglobin (11.4-16.0) gm/dL Sodium 136 L (137-145) mmol/L Carbon Dioxide 20 L (22-30) mmol/L Anion Gap (4.00-12.00) mmol/L BUN 50 H (7-17) mg/dL Creatinine 1.73 H (0.52-1.04) mg/dL Est GFR (CKD-EPI) (>=60) BUN/Creatinine Ratio (12.00-20.00) Ratio Glucose 106 H (74-99) mg/dL POC Glucose (mg/dL) (70-110) mg/dL Plasma Lactic Acid Warren 2.2 H* (0.7-2.0) mmol/L Phosphorus 4.6 H (2.5-4.5) mg/dL Total Bilirubin (0.3-1.2) mg/dL AST (13-35) U/L C-Reactive Protein 2.9 H (<1.0) mg/dL Globulin (1.6-3.3) g/dL Albumin/Globulin Ratio (1.60-3.17) Ratio TSH 27.600 H (0.465-4.680) mIU/L 08/17/24 08/17/24 08/17/24 Range/Units 06:15 06:15 09:31 WBC 12.83 H (4.50-10.00) X 10*3/uL Hgb 11.1 L (11.4-16.0) gm/dL MCH 23.1 L (25.0-35.0) pg MCHC 28.2 L (31.0-37.0) g/dL RDW 19.7 H (11.5-15.5) % Immature Gran # 0.07 H (0.00-0.04) X 10*3/uL Neutrophils # 11.62 H (1.80-7.70) X 10*3/uL Lymphocytes # 0.28 L (1.0-4.8) k/uL Eosinophils # 0.01 L (0.04-0.35) X 10*3/uL PT (10.0-12.5) sec INR (<1.2) APTT (22.0-30.0) sec ABG pH 7.24 L (7.35-7.45) ABG pCO2 49 H (35-45) mmHg ABG pO2 32 L* (83-108) mmHg ABG HCO3 (21-25) mmol/L ABG O2 Saturation 49.8 L (94-97) % Hemoglobin 10.8 L (11.4-16.0) gm/dL Sodium (137-145) mmol/L Carbon Dioxide 16.0 L (22-30) mmol/L Anion Gap 19.00 H (4.00-12.00) mmol/L BUN 47.6 H (7-17) mg/dL Creatinine 2.0 H (0.52-1.04) mg/dL Est GFR (CKD-EPI) 30 L (>=60) BUN/Creatinine Ratio 23.80 H (12.00-20.00) Ratio Glucose (74-99) mg/dL POC Glucose (mg/dL) (70-110) mg/dL Plasma Lactic Acid Warren (0.7-2.0) mmol/L Phosphorus 5.3 H (2.5-4.5) mg/dL Total Bilirubin 1.7 H (0.3-1.2) mg/dL AST 50 H (13-35) U/L C-Reactive Protein (<1.0) mg/dL Globulin 3.8 H (1.6-3.3) g/dL Albumin/Globulin Ratio 1.11 L (1.60-3.17) Ratio TSH (0.465-4.680) mIU/L 08/17/24 08/17/24 Range/Units 09:47 11:34 WBC (4.50-10.00) X 10*3/uL Hgb (11.4-16.0) gm/dL MCH (25.0-35.0) pg MCHC (31.0-37.0) g/dL RDW (11.5-15.5) % Immature Gran # (0.00-0.04) X 10*3/uL Neutrophils # (1.80-7.70) X 10*3/uL Lymphocytes # (1.0-4.8) k/uL Eosinophils # (0.04-0.35) X 10*3/uL PT (10.0-12.5) sec INR (<1.2) APTT 100.8 H* (22.0-30.0) sec ABG pH 7.25 L (7.35-7.45) ABG pCO2 (35-45) mmHg ABG pO2 80 L (83-108) mmHg ABG HCO3 19 L (21-25) mmol/L ABG O2 Saturation (94-97) % Hemoglobin 11.0 L (11.4-16.0) gm/dL Sodium (137-145) mmol/L Carbon Dioxide (22-30) mmol/L Anion Gap (4.00-12.00) mmol/L BUN (7-17) mg/dL Creatinine (0.52-1.04) mg/dL Est GFR (CKD-EPI) (>=60) BUN/Creatinine Ratio (12.00-20.00) Ratio Glucose (74-99) mg/dL POC Glucose (mg/dL) (70-110) mg/dL Plasma Lactic Acid Warren (0.7-2.0) mmol/L Phosphorus (2.5-4.5) mg/dL Total Bilirubin (0.3-1.2) mg/dL AST (13-35) U/L C-Reactive Protein (<1.0) mg/dL Globulin (1.6-3.3) g/dL Albumin/Globulin Ratio (1.60-3.17) Ratio TSH (0.465-4.680) mIU/L Comments: Femur X ray report reviewed Chest x-ray: report reviewed Venous US: report reviewed Assessment and Plan (1) Deep vein thrombosis (DVT) of lower extremity Narrative/Plan: Consult placed due to concern regarding failure of anticoagulation. She was found to have extensive DVT involving the right lower extremity, and associated symptoms. It is not totally clear If this is totally a new clot since at least a component of this appears to be chronic, and we do not have previous images to compare. Her last right lower extremity Doppler in this system was in 2019 which was negative. However it appears that the clot in that leg was diagnosed subsequent to that. The patient did not recall at which hospital the diagnosis was made. Based on the appearance especially distally, and her symptoms, an acute component cannot be ruled out. However in that case there is NO Failure of anticoagulation. On close questioning it is definitely possible that the patient may have missed doses. In addition she was quite definitive that she h as been taking both tablets of Eliquis together at night. Since the duration of action often Eliquis does, regardless of the amount, is about 12 hours ( therefore the every 12 hours dosing), the patient has been effectively not on anticoagulation for about 50% of the time approximately over the past year - Importance of taking the Eliquis twice a day 12 hours apart was emphasized to her. She expressed understanding. Therefore at this time the IV heparin can be discontinued and the patient can be placed back on Eliquis twice a day. For future dosing, she may do better with Xarelto, which needs to be taken only once a day, if that is covered by her insurance Current Visit: Yes Status: Acute Code(s): I82.409 - ACUTE EMBOLISM AND THOMBOS UNSP DEEP VN UNSP LOWER EXTREMITY SNOMED Code(s): 083020337 Plan: The patient remains quite lethargic and sleepy. According to her ABG, this could be due to hypoxia. There has been some improvement with Narcan and oxygen supplementation. - Check CT head, given history of falls and ongoing anticoagulation - Check V/Q scan for baseline for possible PE. If this is positive it would not oil changer Case discussed in detail with the admitting service
--- NOTE | 2024-08-17 15:50 | P.CNPUL ---
History of Present Illness Consult date: 08/17/24 Requesting physician: Dylan Causey Reason for consult: other Chief complaint: "I could not walk" History of present illness: Pulmonary consult dated August 17, 2024. 48-year-old female very poor historian, who apparently presented to the emergency department on August 16, at about 3:45 in the afternoon. The patient apparently came in complaining of bilateral lower extremity pain, and swelling. The patient denied any respiratory issues including shortness of breath, cough, wheezing, chest tightness, and phlegm production. The patient has a previous history of a right BKA, and a left trans metatarsal amputation. The patient had Dopplers done, and apparently on the right side, there was a DVT noted. She is currently on IV heparin. She does use home oxygen at 2 L. Here she is on 3 L. Her saturations are between 93 and 95%. In addition IV heparin she is getting saline at 20 cc an hour. I asked her about smoking, he apparently started smoking at the age of 11. She could not remember when she stopped smoking. She apparently has a history of diabetes, heart failure, COPD/asthma, CVA, DVT, hypertension, myocardial infarction, pneumonia, and seizure disorder. She has had previous infections, including ESBL, and VRE infections. Also, the patient has had a previous history of an AICD placement, and heart catheterization. Current labs include a white count of 12.8, hemoglobin 11.1, hematocrit 39.3, and a normal platelet count. The patient's PTT is 100.8. She had blood gases done twice. The first blood gas, showed a pO2 of 32, pCO2 of 49, pH of 7.24. I do not know that is believable. The second blood gas seems much more believable with a pO2 of 80, pCO2 of 44, pH of 7.25. Chest x-ray shows some very mild pulmonary vascular congestion, and some cardiomegaly. Review of Systems REVIEW OF SYSTEMS: CONSTITUTIONAL: "I could not walk". NEUROLOGIC: [ Negative.] HEENT: [ Negative.] CARDIAC: [Negative.] PULMONARY: The patient denies any specific pulmonary complaints. GI: [Negative.] : [Negative.] RHEUMATOLOGIC: [ Negative.] IMMUNOLOGIC: [ Negative.] ENDOCRINE: [Negative. ] DERMATOLOGIC: [Negative.] Past Medical History Past Medical History: Asthma, Heart Failure, COPD, CVA/TIA, Diabetes Mellitus, Deep Vein Thrombosis (DVT), Hypertension, Myocardial Infarction ([place]), Pneumonia, Seizure Disorder, Seizure Disorder Additional Past Medical History / Comment(s): uses a wheelchair. Patient states last seizure summer 2019 while she was at [facility]. cardiomyopathy sepsis hx Last Myocardial Infarction Date:: 06/2018 History of Any Multi-Drug Resistant Organisms: ESBL, VRE, VRE Date of last positivie culture/infection: 12/18/20 ESBL E.coli; 04/22/17 VRE MDRO Source:: ESBL Left foot; VRE Right Foot Past Surgical History: Adenoidectomy, AICD, Section, Heart Catheterization, Orthopedic Surgery, Pacemaker, Tonsillectomy Additional Past Surgical History / Comment(s): AICD - [employer]. has pacemaker defibrillator, right all toe amputated 04/2016, R BKA 2019, LT GREAT TOE then left foot partial amputation, cardiac cath 2022 Past Anesthesia/Blood Transfusion Reactions: Postoperative Nausea & Vomiting (PONV) Type of Cardiac Device: Biventricular Pacemaker, Permanent Pacemaker, AICD Device Placement Date:: 2011 Past Psychological History: Bipolar Additional Psychological History / Comment(s): She is wheelchair bound/transfers self. She has a glucometer and nebulizer. Smoking Status: Never smoker Past Alcohol Use History: None Reported Additional Past Alcohol Use History / Comment(s): quit 2017 Past Drug Use History: Marijuana Additional Drug Use History / Comment(s): Pt smokes marijuana at HS for a sleep aide or for pain control - Past Family History Mother Family Medical History: Unable to Obtain, Deep Vein Thrombosis (DVT) Additional Family Medical History / Comment(s): Some type of heart problems, kidney failure. Father History Unknown: Yes Family Medical History: Unable to Obtain Additional Family Medical History / Comment(s): Patient denies knowing any med ical history on her father. Medications and Allergies Home Medications Medication Instructions Recorded Confirmed Type Insulin Glargine [Lantus Vial] 40 unit SQ HS 04/30/19 08/16/24 History Pantoprazole [Protonix] 40 mg PO DAILY 01/29/24 08/16/24 History Apixaban [Eliquis] 5 mg PO BID 04/19/24 08/16/24 History Bumetanide [BUMEX] 2 mg PO DAILY 04/19/24 08/16/24 History Sacubitril/Valsartan [Entresto 49 1 tab PO BID 04/19/24 08/16/24 History mg-51 mg Tablet] ALPRAZolam [Xanax] 0.5 mg PO BID 08/16/24 08/16/24 History Gabapentin 600 mg PO TID 08/16/24 08/16/24 History Ipratropium-Albuterol Nebulize 3 ml INHALATION RT-TID PRN 08/16/24 08/16/24 History [Duoneb 0.5 mg-3 mg/3 ml Soln] Lacosamide [Vimpat] 50 mg PO BID 08/16/24 08/16/24 History Allergies Allergy/AdvReac Type Severity Reaction Status Date / Time Penicillins Allergy Rash/Hives Verified 08/16/24 17:58 vancomycin Allergy Rash/Hives Verified 08/16/24 17:58 ondansetron [From Zofran] AdvReac Nausea & Verified 08/16/24 17:58 Vomiting Physical Exam Osteopathic Statement: *. No significant issues noted on an osteopathic structural exam other than those noted in the History and Physical/Consult. Vitals: Vital Signs Temp Pulse Pulse Pulse Resp BP BP 08/17/24 14:00 98.6 F 67 18 96/59 08/17/24 11:31 80 08/17/24 11:23 84 08/17/24 09:13 121 H 16 112/73 08/17/24 09:06 12 08/17/24 08:32 08/17/24 07:55 98.1 F 120 H 12 102/62 08/17/24 07:27 98.6 F 114 H 18 08/17/24 01:50 98.4 F 114 H 19 08/17/24 01:25 18 08/16/24 22:47 18 08/16/24 21:39 97.5 F L 105 H 19 08/16/24 21:22 101 H 16 126/87 08/16/24 18:43 98.3 F 107 H 19 105/72 08/16/24 15:45 98.3 F 100 20 106/75 BP Pulse Ox 08/17/24 14:00 90 L 08/17/24 11:31 08/17/24 11:23 08/17/24 09:13 93 L 08/17/24 09:06 08/17/24 08:32 94 L 08/17/24 07:55 93 L 08/17/24 07:27 104/65 92 L 08/17/24 01:50 131/82 97 08/17/24 01:25 08/16/24 22:47 08/16/24 21:39 125/85 98 08/16/24 21:22 99 08/16/24 18:43 92 L 08/16/24 15:45 98 Intake and Output 08/17/24 08/17/24 08/17/24 06:59 14:59 22:59 Intake Total 250 144.133 Output Total 850 Balance -600 144.133 Intake: Intake, IV Titration 250 144.133 Amount Heparin Sod,Pork in 0.45% 250 144.133 NaCl 25,000 unit In 0.45 % NaCl 1 250ml.bag @ 16. 902 UNITS/KG/HR 23 mls/hr IV [id number] [facility] Rx#: [id number] Output: Urine 850 Other: Voiding Method External Catheter External Catheter No acute distress, lethargic and sleepy, very poor historian. 3 L saturation is 95%. Room air saturation is 90%. HEENT examination is grossly unremarkable. Mucous membranes are moist. No oral lesions. Neck supple. Full range of motion. No adenopathy thyromegaly or neck vein distention. Cardiovascular examination reveals regular rhythm rate. S1-S2 normal. No S3 or S4. No discernible murmur noted. Sounds are distant. Heart rate 80 bpm. Lungs reveal mostly clear breath sounds. Minimal rhonchi. No wheezes or crackles. The patient is not particularly cooperative, so examination was not particularly beneficial. Abdomen soft, and obese. Bowel sounds are noted. No mass. Extremities revealed a right below the knee amputation, and transmetatarsal amputation on the left.. Skin is without rash or lesion. Neurologic examination difficult to assess. Results - Laboratory Findings CBC and BMP: 08/17/24 06:15 08/17/24 06:15 ABG ABG pH 7.25 (7.35-7.45) L 08/17/24 09:47 ABG pCO2 44 mmHg (35-45) 08/17/24 09:47 ABG pO2 80 mmHg (83-108) L 08/17/24 09:47 ABG O2 Saturation 94.4 % (94-97) 08/17/24 09:47 PT/INR, D-dimer PT 13.3 sec (10.0-12.5) H 08/16/24 16:17 INR 1.3 (<1.2) H 08/16/24 16:17 Abnormal lab findings: Abnormal Labs 08/16/24 08/16/24 08/16/24 15:52 16:17 16:17 WBC Hgb 10.1 L MCH 23.8 L MCHC 29.2 L RDW 18.6 H Immature Gran # Neutrophils # Lymphocytes # 0.7 L Eosinophils # PT 13.3 H INR 1.3 H APTT ABG pH ABG pCO2 ABG pO2 ABG HCO3 ABG O2 Saturation Hemoglobin Sodium Carbon Dioxide Anion Gap BUN Creatinine Est GFR (CKD-EPI) BUN/Creatinine Ratio Glucose POC Glucose (mg/dL) 113 H Plasma Lactic Acid Warren Phosphorus Total Bilirubin AST C-Reactive Protein Globulin Albumin/Globulin Ratio TSH 08/16/24 08/16/24 08/17/24 16:17 16:17 00:00 WBC Hgb MCH MCHC RDW Immature Gran # Neutrophils # Lymphocytes # Eosinophils # PT INR APTT 79.4 H ABG pH ABG pCO2 ABG pO2 ABG HCO3 ABG O2 Saturation Hemoglobin Sodium 136 L Carbon Dioxide 20 L Anion Gap BUN 50 H Creatinine 1.73 H Est GFR (CKD-EPI) BUN/Creatinine Ratio Glucose 106 H POC Glucose (mg/dL) Plasma Lactic Acid Warren 2.2 H* Phosphorus 4.6 H Total Bilirubin AST C-Reactive Protein 2.9 H Globulin Albumin/Globulin Ratio TSH 27.600 H 08/17/24 08/17/24 08/17/24 06:15 06:15 09:31 WBC 12.83 H Hgb 11.1 L MCH 23.1 L MCHC 28.2 L RDW 19.7 H Immature Gran # 0.07 H Neutrophils # 11.62 H Lymphocytes # 0.28 L Eosinophils # 0.01 L PT INR APTT ABG pH 7.24 L ABG pCO2 49 H ABG pO2 32 L* ABG HCO3 ABG O2 Saturation 49.8 L Hemoglobin 10.8 L Sodium Carbon Dioxide 16.0 L Anion Gap 19.00 H BUN 47.6 H Creatinine 2.0 H Est GFR (CKD-EPI) 30 L BUN/Creatinine Ratio 23.80 H Glucose POC Glucose (mg/dL) Plasma Lactic Acid Warren Phosphorus 5.3 H Total Bilirubin 1.7 H AST 50 H C-Reactive Protein Globulin 3.8 H Albumin/Globulin Ratio 1.11 L TSH 08/17/24 08/17/24 09:47 11:34 WBC Hgb MCH MCHC RDW Immature Gran # Neutrophils # Lymphocytes # Eosinophils # PT INR APTT 100.8 H* ABG pH 7.25 L ABG pCO2 ABG pO2 80 L ABG HCO3 19 L ABG O2 Saturation Hemoglobin 11.0 L Sodium Carbon Dioxide Anion Gap BUN Creatinine Est GFR (CKD-EPI) BUN/Creatinine Ratio Glucose POC Glucose (mg/dL) Plasma Lactic Acid Warren Phosphorus Total Bilirubin AST C-Reactive Protein Globulin Albumin/Globulin Ratio TSH - Diagnostic Findings Chest x-ray: image reviewed U/S of Legs: image reviewed Assessment and Plan Assessment: Right lower extremity DVT. Mild congestive heart failure. Prior right below the knee amputation, and left transmetatarsal amputation. History of COPD/asthma. History of CHF. Diabetes mellitus. History of CVA. Prior history of myocardial infarction. History of hypertension. History of DVT. Obesity. Multiple drug-resistant infections. Previous history of heart catheterization. History of pacemaker implantation. Plan: Plan dated August 17, 2024. The patient is not complaining of shortness of breath, but her chest x-ray is consistent with cardiomegaly, mild pulmonary vascular congestion. I will check an N-terminal proBNP. She does not use home oxygen, at 2 L. The patient's laure r complaint was that she could not walk. She denied any respiratory issues including shortness of breath, cough, wheezing, phlegm production, etc. The patient does have a history of tobacco use, but she was really unable to quantitate how much she has smoked in the past. Labs, x-rays, and medications are reviewed. We will continue to follow. Patient was a very poor historian, and it was difficult to get any history from her. Time with Patient: Greater than 30
[2024-08-17 16:51] LABS: Glucose,Whole Blood 62 mg/dL (70-110)
--- NOTE | 2024-08-17 17:36 | CT ---
EXAMINATION TYPE: CT brain wo con DATE OF EXAM: 08/17/2024 COMPARISON: 04/28/2024 INDICATION: Falls, anticoagulation, Poss IC bleed DLP: 1170.4 mGycm, Automated exposure control for dose reduction was used. CONTRAST: None CT of the brain is performed utilizing 3 mm thick sections through the posterior fossa and 3 mm thick sections through the remaining calvarium. Study is performed within 24 hours of arrival to the hosp [facility]. No abnormal hyperdensity is present to suggest an acute intracranial hemorrhage. No mass lesion is evident. No acute infarcts are evident. There is an old lacunar infarct within left thalamus. This was present previously. Ventricles and sulci are appropriate for the patient age. Paranasal sinuses and mastoid air cells within the [id number] are clear. IMPRESSION: 1. No acute intracranial process. Follow up MRI can be performed as clinically indicated. 2. Old lacunar infarct left thalamus. [facility], , 08/17/2024 5:34 PM
[2024-08-17 17:47] LABS: Glucose,Whole Blood 59 mg/dL (70-110)
[2024-08-17 18:09] LABS: Glucose,Whole Blood 107 mg/dL (70-110)
[2024-08-17] MEDS: DAPTOmycin 350 MG in SODIUM CHLORIDE 0.9% 50 ML IVPB SCH (19:42)
[2024-08-17 20:15] LABS: Glucose,Whole Blood 109 mg/dL (70-110)
[2024-08-17] MEDS: APIXABAN 5 MG TAB PO SCH (21:41)
[2024-08-17] MEDS: INSULIN DETEMIR (LEVEMIR) 100 UNIT/ML SYR SQ SCH (21:42)
--- NOTE | 2024-08-17 23:24 | P.CONS ---
History of Present Illness - Reason for Consult Consult date: 08/17/24 Left leg cellulitis Requesting physician: Yash Hill - Chief Complaint Left leg swelling redness and pain x days - History of Present Illness Patient is a 48-year-old female with a past medical history significant for CVA TIA diabetes mellitus hypertension [place] seizure disorder patient did have a history of right diabetic foot infection requiring right below the knee potation no has been dealing with the chronic nonhealing wound on the plantar aspect of the left foot patient has been brought into the hospital for evaluation of increasing swelling and redness to the left lower extremity that apparently has been getting worse for the last few days patient was complaining of pain to the left leg to be mostly sharp moderate intensity without radiation with associated swelling redness did have minimal drainage from the left foot wound but denies any foul-smelling on presentation to the hospital the patient was afebrile and no fever have recorded subsequently patient was tachycardic but not hypotensive mildly hypoxic currently on 3 L nasal cannula oxygen patient did have a white count of 12.83 with a left shift BUN and creatinine has been mildly elevated patient did have a venous Doppler negative for DVT femur x-ray diffuse soft tissue edema without evidence for fracture patient has been treated with Rocephin and clindamycin infectious disease was consulted for further management of antibiotic therapy Review of Systems Positive point and negatives has been mentioned in the HPI, complete review of systems was performed and all other systems are negative Past Medical History Past Medical History: Asthma, Heart Failure, COPD, CVA/TIA, Diabetes Mellitus, Deep Vein Thrombosis (DVT), Hypertension, Myocardial Infarction ([place]), Pneumonia, Seizure Disorder, Seizure Disorder Additional Past Medical History / Comment(s): uses a wheelchair. Patient states last seizure summer 2019 while she was at [facility]. 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 has pacemaker defibrillator, right all toe amputated 04/2016, R BKA 2019, LT GREAT TOE then left foot partial amputation, cardiac cath 2022 Past Anesthesia/Blood Transfusion Reactions: Postoperative Nausea & Vomiting (PONV) Type of Cardiac Device: Biventricular Pacemaker, Permanent Pacemaker, AICD Device Placement Date:: 2011 Past Psychological History: Bipolar Additional Psychological History / Comment(s): She is wheelchair bound/transfers self. She has a glucometer and nebulizer. Smoking Status: Never smoker Past Alcohol Use History: None Reported Additional Past Alcohol Use History / Comment(s): quit 2017 Past Drug Use History: Marijuana Additional Drug Use History / Comment(s): Pt smokes marijuana at HS for a sleep aide or for pain control - Past Family History Mother Family Medical History: Unable to Obtain, Deep Vein Thrombosis (DVT) Additional Family Medical History / Comment(s): Some type of heart problems, kidney failure. Father History Unknown: Yes Family Medical History: Unable to Obtain Additional Family Medical History / Comment(s): Patient denies knowing any medical history on her father. Medications and Allergies Home Medications Medication Instructions Recorded Confirmed Type Insulin Glargine [Lantus Vial] 40 unit SQ HS 04/30/19 08/16/24 History Pantoprazole [Protonix] 40 mg PO DAILY 01/29/24 08/16/24 History Apixaban [Eliquis] 5 mg PO BID 04/19/24 08/16/24 History Bumetanide [BUMEX] 2 mg PO DAILY 04/19/24 08/16/24 History Sacubitril/Valsartan [Entresto 49 1 tab PO BID 04/19/24 08/16/24 History mg-51 mg Tablet] ALPRAZolam [Xanax] 0.5 mg PO BID 08/16/24 08/16/24 History Gabapentin 600 mg PO TID 08/16/24 08/16/24 History Ipratropium-Albuterol Nebulize 3 ml INHALATION RT-TID PRN 08/16/24 08/16/24 History [Duoneb 0.5 mg-3 mg/3 ml Soln] Lacosamide [Vimpat] 50 mg PO BID 08/16/24 08/16/24 History Allergies Allergy/AdvReac Type Severity Reaction Status Date / Time Penicillins Allergy Rash/Hives Verified 08/16/24 17:58 vancomycin Allergy Rash/Hives Verified 08/16/24 17:58 ondansetron [From Zofran] AdvReac Nausea & Verified 08/16/24 17:58 Vomiting Physical Exam Vitals: Vital Signs Temp Pulse Pulse Pulse Resp BP BP 08/17/24 11:31 80 08/17/24 11:23 84 08/17/24 09:13 121 H 16 112/73 08/17/24 09:06 12 08/17/24 08:32 08/17/24 07:55 98.1 F 120 H 12 102/62 08/17/24 07:27 98.6 F 114 H 18 08/17/24 01:50 98.4 F 114 H 19 08/17/24 01:25 18 08/16/24 22:47 18 08/16/24 21:39 97.5 F L 105 H 19 08/16/24 21:22 101 H 16 126/87 08/16/24 18:43 98.3 F 107 H 19 105/72 08/16/24 15:45 98.3 F 100 20 106/75 BP Pulse Ox 08/17/24 11:31 08/17/24 11:23 08/17/24 09:13 93 L 08/17/24 09:06 08/17/24 08:32 94 L 08/17/24 07:55 93 L 08/17/24 07:27 104/65 92 L 08/17/24 01:50 131/82 97 08/17/24 01:25 08/16/24 22:47 08/16/24 21:39 125/85 98 08/16/24 21:22 99 08/16/24 18:43 92 L 08/16/24 15:45 98 Intake and Output 08/16/24 08/17/24 08/17/24 22:59 06:59 14:59 Intake Total 250 144.133 Output Total 850 Balance -600 144.133 Intake: Intake, IV Titration 250 144.133 Amount Heparin Sod,Pork in 0.45% 250 144.133 NaCl 25,000 unit In 0.45 % NaCl 1 250ml.bag @ 16. 902 UNITS/KG/HR 23 mls/hr IV .[id number] [facility] Rx#: [id number] Output: Urine 850 Other: Voiding Method External Catheter Weight 136.078 kg GENERAL DESCRIPTION: Middle-aged female lying in bed, no distress. No tachypnea or accessory muscle of respiration use. HEENT: Shows Pallor , no scleral icterus. Oral mucous membrane is dry. No pharyngeal erythema or thrush NECK: Trachea central, no thyromegaly. LUNGS: Unlabored breathing. Clear to auscultation anteriorly. No wheeze or crackle. HEART: S1, S2, regular rate and rhythm. No loud murmur ABDOMEN: Soft, no tenderness , guarding or rigidity, no organomegaly EXTREMITIES: Left foot plantar wound did have some drainage with associated swelling redness of the left lower extremity SKIN: No rash, no masses palpable. NEUROLOGICAL: The patient is sleepy but arousable, mood and affect normal. Results CBC & Chem 7: 08/17/24 06:15 08/17/24 06:15 Labs: Abnormal Lab Results - Last 24 Hours (Table) 08/16/24 08/16/24 08/16/24 Range/Units 15:52 16:17 16:17 WBC (4.50-10.00) X 10*3/uL Hgb 10.1 L (11.4-16.0) gm/dL MCH 23.8 L (25.0-35.0) pg MCHC 29.2 L (31.0-37.0) g/dL RDW 18.6 H (11.5-15.5) % Immature Gran # (0.00-0.04) X 10*3/uL Neutrophils # (1.80-7.70) X 10*3/uL Lymphocytes # 0.7 L (1.0-4.8) k/uL Eosinophils # (0.04-0.35) X 10*3/uL PT 13.3 H (10.0-12.5) sec INR 1.3 H (<1.2) APTT (22.0-30.0) sec ABG pH (7.35-7.45) ABG pCO2 (35-45) mmHg ABG pO2 (83-108) mmHg ABG HCO3 (21-25) mmol/L ABG O2 Saturation (94-97) % Hemoglobin (11.4-16.0) gm/dL Sodium (137-145) mmol/L Carbon Dioxide (22-30) mmol/L Anion Gap (4.00-12.00) mmol/L BUN (7-17) mg/dL Creatinine (0.52-1.04) mg/dL Est GFR (CKD-EPI) (>=60) BUN/Creatinine Ratio (12.00-20.00) Ratio Glucose (74-99) mg/dL POC Glucose (mg/dL) 113 H (70-110) mg/dL Plasma Lactic Acid Warren (0.7-2.0) mmol/L Phosphorus (2.5-4.5) mg/dL Total Bilirubin (0.3-1.2) mg/dL AST (13-35) U/L C-Reactive Protein (<1.0) mg/dL Globulin (1.6-3.3) g/dL Albumin/Globulin Ratio (1.60-3.17) Ratio TSH (0.465-4.680) mIU/L 08/16/24 08/16/24 08/17/24 Range/Units 16:17 16:17 00:00 WBC (4.50-10.00) X 10*3/uL Hgb (11.4-16.0) gm/dL MCH (25.0-35.0) pg MCHC (31.0-37.0) g/dL RDW (11.5-15.5) % Immature Gran # (0.00-0.04) X 10*3/uL Neutrophils # (1.80-7.70) X 10*3/uL Lymphocytes # (1.0-4.8) k/uL Eosinophils # (0.04-0.35) X 10*3/uL PT (10.0-12.5) sec INR (<1.2) APTT 79.4 H (22.0-30.0) sec ABG pH (7.35-7.45) ABG pCO2 (35-45) mmHg ABG pO2 (83-108) mmHg ABG HCO3 (21-25) mmol/L ABG O2 Saturation (94-97) % Hemoglobin (11.4-16.0) gm/dL Sodium 136 L (137-145) mmol/L Carbon Dioxide 20 L (22-30) mmol/L Anion Gap (4.00-12.00) mmol/L BUN 50 H (7-17) mg/dL Creatinine 1.73 H (0.52-1.04) mg/dL Est GFR (CKD-EPI) (>=60) BUN/Creatinine Ratio (12.00-20.00) Ratio Glucose 106 H (74-99) mg/dL POC Glucose (mg/dL) (70-110) mg/dL Plasma Lactic Acid Warren 2.2 H* (0.7-2.0) mmol/L Phosphorus 4.6 H (2.5-4.5) mg/dL Total Bilirubin (0.3-1.2) mg/dL AST (13-35) U/L C-Reactive Protein 2.9 H (<1.0) mg/dL Globulin (1.6-3.3) g/dL Albumin/Globulin Ratio (1.60-3.17) Ratio TSH 27.600 H (0.465-4.680) mIU/L 08/17/24 08/17/24 08/17/24 Range/Units 06:15 06:15 09:31 WBC 12.83 H (4.50-10.00) X 10*3/uL Hgb 11.1 L (11.4-16.0) gm/dL MCH 23.1 L (25.0-35.0) pg MCHC 28.2 L (31.0-37.0) g/dL RDW 19.7 H (11.5-15.5) % Immature Gran # 0.07 H (0.00-0.04) X 10*3/uL Neutrophils # 11.62 H (1.80-7.70) X 10*3/uL Lymphocytes # 0.28 L (1.0-4.8) k/uL Eosinophils # 0.01 L (0.04-0.35) X 10*3/uL PT (10.0-12.5) sec INR (<1.2) APTT (22.0-30.0) sec ABG pH 7.24 L (7.35-7.45) ABG pCO2 49 H (35-45) mmHg ABG pO2 32 L* (83-108) mmHg ABG HCO3 (21-25) mmol/L ABG O2 Saturation 49.8 L (94-97) % Hemoglobin 10.8 L (11.4-16.0) gm/dL Sodium (137-145) mmol/L Carbon Dioxide 16.0 L (22-30) mmol/L Anion Gap 19.00 H (4.00-12.00) mmol/L BUN 47.6 H (7-17) mg/dL Creatinine 2.0 H (0.52-1.04) mg/dL Est GFR (CKD-EPI) 30 L (>=60) BUN/Creatinine Ratio 23.80 H (12.00-20.00) Ratio Glucose (74-99) mg/dL POC Glucose (mg/dL) (70-110) mg/dL Plasma Lactic Acid Warren (0.7-2.0) mmol/L Phosphorus 5.3 H (2.5-4.5) mg/dL Total Bilirubin 1.7 H (0.3-1.2) mg/dL AST 50 H (13-35) U/L C-Reactive Protein (<1.0) mg/dL Globulin 3.8 H (1.6-3.3) g/dL Albumin/Globulin Ratio 1.11 L (1.60-3.17) Ratio TSH (0.465-4.680) mIU/L 08/17/24 08/17/24 Range/Units 09:47 11:34 WBC (4.50-10.00) X 10*3/uL Hgb (11.4-16.0) gm/dL MCH (25.0-35.0) pg MCHC (31.0-37.0) g/dL RDW (11.5-15.5) % Immature Gran # (0.00-0.04) X 10*3/uL Neutrophils # (1.80-7.70) X 10*3/uL Lymphocytes # (1.0-4.8) k/uL Eosinophils # (0.04-0.35) X 10*3/uL PT (10.0-12.5) sec INR (<1.2) APTT 100.8 H* (22.0-30.0) sec ABG pH 7.25 L (7.35-7.45) ABG pCO2 (35-45) mmHg ABG pO2 80 L (83-108) mmHg ABG HCO3 19 L (21-25) mmol/L ABG O2 Saturation (94-97) % Hemoglobin 11.0 L (11.4-16.0) gm/dL Sodium (137-145) mmol/L Carbon Dioxide (22-30) mmol/L Anion Gap (4.00-12.00) mmol/L BUN (7-17) mg/dL Creatinine (0.52-1.04) mg/dL Est GFR (CKD-EPI) (>=60) BUN/Creatinine Ratio (12.00-20.00) Ratio Glucose (74-99) mg/dL POC Glucose (mg/dL) (70-110) mg/dL Plasma Lactic Acid Warren (0.7-2.0) mmol/L Phosphorus (2.5-4.5) mg/dL Total Bilirubin (0.3-1.2) mg/dL AST (13-35) U/L C-Reactive Protein (<1.0) mg/dL Globulin (1.6-3.3) g/dL Albumin/Globulin Ratio (1.60-3.17) Ratio TSH (0.465-4.680) mIU/L Assessment and Plan (1) Cellulitis of left foot Current Visit: Yes Status: Acute Code(s): L03.116 - CELLULITIS OF LEFT LOWER LIMB SNOMED Code(s): 54665885992620977 (2) Allergy to multiple antibiotics Current Visit: No Status: Acute Code(s): Z88.1 - ALLERGY STATUS TO OTHER ANTIBIOTIC AGENTS SNOMED Code(s): 939258076 (3) Diabetic ulcer of left foot Current Visit: No Status: Acute Code(s): E11.621 - TYPE 2 DIABETES MELLITUS WITH FOOT ULCER; L97.529 - NON-PRESSURE CHRONIC ULCER OTH PRT LEFT FOOT W UNSP SEVERITY SNOMED Code(s): 883420858 Plan: 1patient with a chronic nonhealing wound to the left foot plantar aspect now with evidence of left lower extremity cellulitis likely being treated for this episode of cellulitis and will need to cover for the gram-positive as well as g viviana-negative pathogen. 2patient with multiple antibiotic ALLERGIES that would limit the number of a ntibiotic safe to use 3local wound culture to guide further antibiotic therapy 4-patient to continue with Rocephin we will switch clindamycin to daptomycin pending cultures finalization We will follow on clinical condition and cultures to further adjust medication if needed Thank you for this consultation we will follow the patient along with you Dictation was produced using [employer] dictation software. please excuse any grammatical, word or spelling errors. Time with Patient: Greater than 30
[2024-08-18 04:45] LABS: Appearance,Urine Turbid (Clear); Bacteria,Urine Many /hpf; Bilirubin,Urine Negative (Negative); Blood,Urine Large (Negative); Budding Yeast,Urine Few /hpf; Color,Urine Yellow; Glucose,Urine (UA) Negative (Negative); Ketones,Urine Trace (Negative); Leukocyte Esterase,Urine Large (Negative); Nitrite,Urine Negative (Negative); PH, Urine 6.5 (5.0-8.0); Protein,Urine 2+ (Negative); RBC,Urine >182 /hpf (0-5); Urobilinogen,Urine <2.0 mg/dL (<2.0); WBC,Urine >182 /hpf (0-5)
[2024-08-18 05:02] LABS: Specific Gravity,Urine 1.013 (1.001-1.035)
[2024-08-18 05:17] LABS: Glucose,Whole Blood 117 mg/dL (70-110)
[2024-08-18 07:51] LABS: Anisocytosis Slight; Basophils # (A) 0.1 k/uL (0-0.2); Basophils % (A) 1 %; Eosinophils # (A) 0.2 k/uL (0-0.7); Eosinophils % (A) 2 %; HCT 35.8 % (34.0-46.0); HGB 10.4 gm/dL (11.4-16.0); Hypochromasia Marked; Lymphocytes # (A) 0.9 k/uL (1.0-4.8); Lymphocytes % (A) 8 %; MCH 24.4 pg (25.0-35.0); MCHC 29.2 g/dL (31.0-37.0); MCV 83.5 fL (80.0-100.0); Mean Platelet Volume 9.3; Monocytes # (A) 0.7 k/uL (0-1.0); Monocytes % (A) 6 %; Neutrophils # (A) 8.8 k/uL (1.3-7.7); Neutrophils % (A) 82 %; Platelet Count 244 k/uL (150-450); Poikilocytosis Moderate; RBC 4.29 m/uL (3.80-5.40); RDW 19.1 % (11.5-15.5); WBC 10.8 k/uL (3.8-10.6)
[2024-08-18 08:01] LABS: ALT 656 U/L (4-34); African American GFR (CKD) 22 (>60 ml/min/1.73 sqM); Albumin/Globulin Ratio 1.1; Alkaline Phosphatase 94 U/L (38-126); Anion Gap 14 mmol/L; Blood Urea Nitrogen 58 mg/dL (7-17); Calcium 8.4 mg/dL (8.4-10.2); Carbon Dioxide 19 mmol/L (22-30); Chloride 101 mmol/L (98-107); Globulin 3.6 g/dL; Glucose 101 mg/dL (74-99); Non-African American GFR(CKD) 19 (>60 ml/min/1.73 sqM); Potassium 5.5 mmol/L (3.5-5.1); Sodium 134 mmol/L (137-145); Total Bilirubin 2.3 mg/dL (0.2-1.3); Total Protein 7.6 g/dL (6.3-8.2)
--- NOTE | 2024-08-18 08:49 | NM ---
EXAMINATION TYPE: NM pul vent and perfuse DATE OF EXAM: 08/18/2024 CLINICAL INDICATION: Female, 48 years old with history of DVT, hypoxia; COMPARISON: Chest x-ray 08/17/2024 TECHNIQUE: Utilizing inhalation of 70.7 mCi Tc 99m DTPA aerosol and intravenous injection of 5.4 mCi of Tc 99m MAA, ventilation and perfusion images are acquired post injection in multiple projections. FINDINGS: Some patchy defects are present in the lower lung nieves bilaterally. No triple matched defect is denis dent. No moderate or large mismatched defects evident. IMPRESSION: Intermediate probability for acute pulmonary embolism. [facility], , 08/18/2024 8:47 AM
[2024-08-18 08:53] LABS: AST 1556 U/L (14-36)
--- NOTE | 2024-08-18 11:18 | P.PN ---
Subjective Progress Note Date: 08/18/24 Principal diagnosis: DVT, cellulitis. Pulmonary consult dated August 17, 2024. 48-year-old female very poor historian, who apparently presented to the emergency department on August 16, at about 3:45 in the afternoon. The patient apparently came in complaining of bilateral lower extremity pain, and swelling. The patient denied any respiratory issues including shortness of breath, cough, wheezing, chest tightness, and phlegm production. The patient has a previous history of a right BKA, and a left trans metatarsal amputation. The patient had Dopplers done, and apparently on the right side, there was a DVT noted. She is currently on IV heparin. She does use home oxygen at 2 L. Here she is on 3 L. Her saturations are between 93 and 95%. In addition IV heparin she is getting saline at 20 cc an hour. I asked her about smoking, he apparently started smoking at the age of 11. She could not remember when she stopped smoking. She apparently has a history of diabetes, heart failure, COPD/asthma, CVA, DVT, hypertension, myocardial infarction, pneumonia, and seizure disorder. She has had previous infections, including ESBL, and VRE infections. Also, the patient has had a previous history of an AICD placement, and heart catheterization. Current labs include a white count of 12.8, hemoglobin 11.1, hematocrit 39.3, and a normal platelet count. The patient's PTT is 100.8. She had blood gases done twice. The first blood gas, showed a pO2 of 32, pCO2 of 49, pH of 7.24. I do not know that is believable. The second blood gas seems much more believable with a pO2 of 80, pCO2 of 44, pH of 7.25. Chest x-ray shows some very mild pulmonary vascular congestion, and some cardiomegaly. Progress note dated August 18, 2024. 48-year-old female that I saw yesterday in consultation. Please see my note above. The patient was admitted with a diagnosis of DVT, of the right lower extremity. The patient is seen today in room 474. She is lethargic like she was yesterday. She is on 3 L nasal cannula. Saturations are 98%. Her N- terminal proBNP was 21,900. Her procalcitonin level was elevated at 1.22. She remains on Rocephin and daptomycin as per infectious diseases. White count 10.8, hemoglobin 10.4, hematocrit 35.8, platelet count 244,000. Sodium 134, potassium 5.5, chlorides 101, CO2 19, anion gap 14, BUN 58, creatinine 2.78. AST is 1556. ALT is 656. Urinalysis suggest the possibility of a urinary tract infection. Thus far, cultures are negative. Brain CT was negative. It did show an old lacunar infarct left thalamus. The perfusion study was nondiagnostic as expected, given the abnormality of the chest x-ray. Objective - Vital Signs Vital signs: Vital Signs Temp 97.8 F 08/18/24 07:35 Pulse 97 08/18/24 07:35 Resp 17 08/18/24 07:35 BP 105/72 08/18/24 07:35 Pulse Ox 100 08/18/24 07:35 FiO2 Intake & Output 08/17/24 08/18/24 08/18/24 18:59 06:59 18:59 Intake Total 195.332 6926 Output Total 800 500 Balance -655.867 600 Intake: Intake, IV Titration 144.133 900 Amount Heparin Sod,Pork in 0.45% 144.133 NaCl 25,000 unit In 0.45 % NaCl 1 250ml.bag @ 16. 902 UNITS/KG/HR 23 mls/hr IV .[id number] [facility] Rx#: [id number] Sodium Chloride 0.9% 1, 900 000 ml @ 75 mls/hr IV . [id number] [facility] Rx#:[id number] Oral 200 Output: Urine 800 500 Other: Voiding Method External Catheter External Catheter - Exam No acute distress, lethargic and sleepy, very poor historian. 3 L saturation is 98 %. HEENT examination is grossly unremarkable. Mucous membranes are moist. No oral lesions. Neck supple. Full range of motion. No adenopathy thyromegaly or neck vein dist ention. Cardiovascular examination reveals regular rhythm rate. S1-S2 normal. No S3 or S4. No discernible murmur noted. Sounds are distant. Heart rate 97 bpm. Lungs reveal mostly clear breath sounds. Minimal rhonchi. No wheezes or crackles. The patient is not particularly cooperative, so examination was not particularly beneficial. Abdomen soft, and obese. Bowel sounds are noted. No mass. Extremities revealed a right below the knee amputation, and transmetatarsal amputation on the left.. Skin is without rash or lesion. Neurologic examination difficult to assess. - Labs CBC & Chem 7: 08/18/24 07:14 08/18/24 07:14 Labs: Abnormal Lab Results - Last 24 Hours (Table) 08/16/24 08/17/24 08/17/24 Range/Units 16:17 11:34 11:34 WBC (3.8-10.6) k/uL Hgb (11.4-16.0) gm/dL MCH (25.0-35.0) pg MCHC (31.0-37.0) g/dL RDW (11.5-15.5) % Neutrophils # (1.3-7.7) k/uL Lymphocytes # (1.0-4.8) k/uL APTT 100.8 H* (22.0-30.0) sec Sodium (137-145) mmol/L Potassium (3.5-5.1) mmol/L Carbon Dioxide (22-30) mmol/L BUN (7-17) mg/dL Creatinine (0.52-1.04) mg/dL Glucose (74-99) mg/dL POC Glucose (mg/dL) (70-110) mg/dL Hemoglobin A1c 6.5 H (<=6.0) % Total Bilirubin (0.2-1.3) mg/dL AST (14-36) U/L ALT (4-34) U/L Procalcitonin (0.02-0.50) ng/mL Cortisol 23.6 H (3.1-22.4) UG/DL Urine Appearance (Clear) Urine Protein (Negative) Urine Ketones (Negative) Urine Blood (Negative) Ur Leukocyte Esterase (Negative) Urine RBC (0-5) /hpf Urine WBC (0-5) /hpf Urine WBC Clumps (None) /hpf Urine Bacteria (None) /hpf Urine Yeast (Budding) (None) /hpf 08/17/24 08/17/24 08/17/24 Range/Units 16:49 17:40 17:45 WBC (3.8-10.6) k/uL Hgb (11.4-16.0) gm/dL MCH (25.0-35.0) pg MCHC (31.0-37.0) g/dL RDW (11.5-15.5) % Neutrophils # (1.3-7.7) k/uL Lymphocytes # (1.0-4.8) k/uL APTT (22.0-30.0) sec Sodium (137-145) mmol/L Potassium (3.5-5.1) mmol/L Carbon Dioxide (22-30) mmol/L BUN (7-17) mg/dL Creatinine (0.52-1.04) mg/dL Glucose (74-99) mg/dL POC Glucose (mg/dL) 62 L 59 L (70-110) mg/dL Hemoglobin A1c (<=6.0) % Total Bilirubin (0.2-1.3) mg/dL AST (14-36) U/L ALT (4-34) U/L Procalcitonin 1.22 H (0.02-0.50) ng/mL Cortisol (3.1-22.4) UG/DL Urine Appearance (Clear) Urine Protein (Negative) Urine Ketones (Negative) Urine Blood (Negative) Ur Leukocyte Esterase (Negative) Urine RBC (0-5) /hpf Urine WBC (0-5) /hpf Urine WBC Clumps (None) /hpf Urine Bacteria (None) /hpf Urine Yeast (Budding) (None) /hpf 08/17/24 08/18/24 08/18/24 Range/Units 19:51 03:35 05:15 WBC (3.8-10.6) k/uL Hgb (11.4-16.0) gm/dL MCH (25.0-35.0) pg MCHC (31.0-37.0) g/dL RDW (11.5-15.5) % Neutrophils # (1.3-7.7) k/uL Lymphocytes # (1.0-4.8) k/uL APTT 78.1 H (22.0-30.0) sec Sodium (137-145) mmol/L Potassium (3.5-5.1) mmol/L Carbon Dioxide (22-30) mmol/L BUN (7-17) mg/dL Creatinine (0.52-1.04) mg/dL Glucose (74-99) mg/dL POC Glucose (mg/dL) 117 H (70-110) mg/dL Hemoglobin A1c (<=6.0) % Total Bilirubin (0.2-1.3) mg/dL AST (14-36) U/L ALT (4-34) U/L Procalcitonin (0.02-0.50) ng/mL Cortisol (3.1-22.4) UG/DL Urine Appearance Turbid H (Clear) Urine Protein 2+ H (Negative) Urine Ketones Trace H (Negative) Urine Blood Large H (Negative) Ur Leukocyte Esterase Large H (Negative) Urine RBC >182 H (0-5) /hpf Urine WBC >182 H (0-5) /hpf Urine WBC Clumps Many H (None) /hpf Urine Bacteria Many H (None) /hpf Urine Yeast (Budding) Few H (None) /hpf 08/18/24 08/18/24 Range/Units 07:14 07:14 WBC 10.8 H (3.8-10.6) k/uL Hgb 10.4 L (11.4-16.0) gm/dL MCH 24.4 L (25.0-35.0) pg MCHC 29.2 L (31.0-37.0) g/dL RDW 19.1 H (11.5-15.5) % Neutrophils # 8.8 H (1.3-7.7) k/uL Lymphocytes # 0.9 L (1.0-4.8) k/uL APTT (22.0-30.0) sec Sodium 134 L (137-145) mmol/L Potassium 5.5 H (3.5-5.1) mmol/L Carbon Dioxide 19 L (22-30) mmol/L BUN 58 H (7-17) mg/dL Creatinine 2.78 H (0.52-1.04) mg/dL Glucose 101 H (74-99) mg/dL POC Glucose (mg/dL) (70-110) mg/dL Hemoglobin A1c (<=6.0) % Total Bilirubin 2.3 H (0.2-1.3) mg/dL AST 1556 H (14-36) U/L ALT 656 H (4-34) U/L Procalcitonin (0.02-0.50) ng/mL Cortisol (3.1-22.4) UG/DL Urine Appearance (Clear) Urine Protein (Negative) Urine Ketones (Negative) Urine Blood (Negative) Ur Leukocyte Esterase (Negative) Urine RBC (0-5) /hpf Urine WBC (0-5) /hpf Urine WBC Clumps (None) /hpf Urine Bacteria (None) /hpf Urine Yeast (Budding) (None) /hpf Microbiology - Last 24 Hours (Table) 08/17/24 14:13 Gram Stain - Preliminary Foot - Left 08/16/24 16:32 Blood Culture - Preliminary Blood Assessment and Plan Assessment: Right lower extremity DVT. Mild congestive heart failure. Doubt pulmonary embolism. Cellulitis, left foot. Prior right below the knee amputation, and left transmetatarsal amputation. History of COPD/asthma. History of CHF. Diabetes mellitus. History of CVA. Prior history of myocardial infarction. History of hypertension. History of DVT. Obesity. Multiple drug-resistant infections. Previous history of heart catheterization. History of pacemaker implantation. Plan: Plan dated August 17, 2024. The patient is not complaining of shortness of breath, but her chest x-ray is consistent with cardiomegaly, mild pulmonary vascular congestion. I will check an N-terminal proBNP. She does not use home oxygen, at 2 L. The patient's major complaint was that she could not walk. She denied any respiratory issues including shortness of breath, cough, wheezing, phlegm production, etc. The patient does have a history of tobacco use, but she was really unable to quantitate how much she has smoked in the past. Labs, x-rays, and medications are reviewed. We will continue to follow. Patient was a very poor historian, and it was difficult to get any history from her. Plan dated August 18, 2024. The patient is being treated for a left foot cellulitis. She continues on Rocephin and daptomycin. 3 L saturation is 98%. N-terminal proBNP was quite elevated at 21,900. Procalcitonin was elevated at 1.22, as expected. Perfusion lung scan, was nondiagnostic. This is expected given the abnormality seen on chest x-ray. It should not have been ordered in my opinion. Labs, x-rays, and medications are reviewed. We will continue to follow. The patient is already on a factor Xa inhibitor. We will continue to follow. Prognosis is guarded. No additional recommendations at this time. Time with Patient: Less than 30
[2024-08-18 12:05] LABS: Glucose,Whole Blood 102 mg/dL (70-110)
--- NOTE | 2024-08-18 14:35 | P.PN ---
Subjective Progress Note Date: 08/18/24 Patient is a 48-year-old female with a past medical history of right lower extremity DVT maintained on Eliquis, right BKA, and left TMA who presented to the emergency department with severe right lower extremity pain and recent falls from her wheelchair during transfers. She is a poor historian at the time of the interview. She is very lethargic and falls asleep while answering questionsAO x 2. She rarely opens her eyes without stimulus. During the interview she is noted to have increased respiratory effort, respiratory rate of 10-12, and small sluggish pupils. Narcan was administered and patient became more alert and respiratory rate improved to 16, AOx3, now able to complete full sentences but remains with eyes closed unless prompted to open. Now she states that she has been having bilateral lower extremity pain worse on the right with erythema and swelling of the right lower extremity. She reports compliance with her medications. She also reports some abdominal pain with a few episodes of vomitingappears nonbloody. She endorses pain in the right lower extremity. She denies chest pain, shortness of breath, current abdominal pain, nausea, vomiting. Femur x-ray unremarkable. Bilateral lower extremity venous Doppler showed positive right lower extremity DVT femoral vein to popliteal vein. EKG shows pacing by AICD. WBC 6.1, hemoglobin 10.1, platelets 179, PT 13.3, INR 1.3, sodium 136, potassium 4.6, CO2 20, creatinine 1.73, GFR 34, lactic acid 2.2, phosphorus 4.6, CRP 2.9, TSH 27.6. Afebrile, normotensive, tachycardic in the low 100s saturating well on room air. 08/18. Patient seen sleeping in bed. Still with eyes closed while conversing but will open them when prompted. States she's had no energy for days. Chest x-ray 08/17: Cardiomegaly and mild pulmonary vascular congestion. Brain CT 08/17: No acute intracranial process, old lacunar infarct left thalamus. Pulmonary perfusion scan 08/18: No mismatch defect is evident, intermediate probability for acute pulmonary embolism. WBCs 10.8, hemoglobin 10.4, sodium 134, potassium 5.5, creatinine 2.78, hemoglobin A1c 6.5, N-terminal proBNP 21.9, procalcitonin 1.22. Review of systems: ROS limited due to altered mental status. Pertinent positives and negatives as discussed in HPI. Physical examination: Vital signs are reviewed. General: No acute distress. Arousable, oriented x 3. Morbidly obese. HEENT: Head exam is unremarkable. Lateral third of eyebrows thinning. EOMI bilaterally. ACs patent. Nares patent. Lungs: Bilateral breath sounds present; no rhonchi, wheezes, or rales. Heart: Rate and rhythm are regular. S1-S2 present. No murmur/rub/gallops. Abdomen: Soft, nontender, nondistended. Bowel sounds present. Extremities: Right BKA with erythema. Left TMA with ulcer on bottom now covered with gauze and LLE cellulitis and warmth. Psych: Normal affect and mood. Cooperative. Assessment/Plan: Acute toxic metabolic encephalopathy secondary to medications Discontinue morphine Discontinue Xanax Discontinue Neurontin Acute transaminase elevation Stop Bumex Start IV normal saline at 75 cc/hr Obtain ultrasound abdomen Obtain ultrasound kidneys Obtain ammonia level Right lower extremity deep vein thrombosis Continue Eliquis Surgery consultedno surgical intervention at this time Heme/onc consulted-restarted Eliquis Acute respiratory failure Pulmonology consulted Left lower extremity cellulitis Continue Rocephin as per infectious disease Start daptomycin, stop clindamycin as per infectious disease Pending wound cultures Infectious disease consulted Wound care consulted Hypothyroidism Continue levothyroxine 50 mcg daily Diabetes mellitus type 2 Monitor glucose Insulin sliding scale DVT prophylaxis: Heparin Chronic conditions: Recurrent DVTs, systolic CHF, chronic kidney disease stage IIIb, diabetes mellitus type 2, seizures, history of AICD placement, history of cardiac catheterizations Attestation I have seen and examined this patient with my resident , discussed the same with the resident/ANTONIA, and agree with the dictator's assessment and plan as written Dr. Yash davidson Objective - Vital Signs Vital signs: Vital Signs Temp 97.6 F 08/18/24 01:39 Pulse 96 08/18/24 01:39 Resp 18 08/18/24 01:39 BP 101/61 08/18/24 01:39 Pulse Ox 98 08/18/24 01:39 FiO2 Intake & Output 08/17/24 08/17/24 08/18/24 06:59 18:59 06:59 Intake Total 250 181.447 8405 Output Total 850 800 500 Balance -600 -655.867 600 Weight 136.078 kg Intake: Intake, IV Titration 250 144.133 900 Amount Heparin Sod,Pork in 0.45% 250 144.133 NaCl 25,000 unit In 0.45 % NaCl 1 250ml.bag @ 16. 902 UNITS/KG/HR 23 mls/hr IV .[id number] [facility] Rx#: [id number] Sodium Chloride 0.9% 1, 900 000 ml @ 75 mls/hr IV . [id number] [facility] Rx#:[id number] Oral 200 Output: Urine 850 800 500 Other: Voiding Method External Catheter External Catheter External Catheter - Labs CBC & Chem 7: 08/20/24 08:09 08/20/24 05:47 Labs: Abnormal Lab Results - Last 24 Hours (Table) 08/17/24 08/17/24 08/17/24 Range/Units 06:15 06:15 09:31 WBC 12.83 H (4.50-10.00) X 10*3/uL Hgb 11.1 L (12.0-15.0) g/dL MCH 23.1 L (27.0-32.0) pg MCHC 28.2 L (32.0-37.0) g/dL RDW 19.7 H (11.5-14.5) % Immature Gran # 0.07 H (0.00-0.04) X 10*3/uL Neutrophils # 11.62 H (1.80-7.70) X 10*3/uL Lymphocytes # 0.28 L (0.90-5.00) X 10*3/uL Eosinophils # 0.01 L (0.04-0.35) X 10*3/uL APTT (22.0-30.0) sec ABG pH 7.24 L (7.35-7.45) ABG pCO2 49 H (35-45) mmHg ABG pO2 32 L* (83-108) mmHg ABG HCO3 (21-25) mmol/L ABG O2 Saturation 49.8 L (94-97) % Hemoglobin 10.8 L (11.4-16.0) gm/dL Carbon Dioxide 16.0 L (21.6-31.8) mmol/L Anion Gap 19.00 H (4.00-12.00) mmol/L BUN 47.6 H (9.0-27.0) mg/dL Creatinine 2.0 H (0.6-1.5) mg/dL Est GFR (CKD-EPI) 30 L (>=60) BUN/Creatinine Ratio 23.80 H (12.00-20.00) Ratio POC Glucose (mg/dL) (70-110) mg/dL Phosphorus 5.3 H (2.4-5.1) mg/dL Total Bilirubin 1.7 H (0.3-1.2) mg/dL AST 50 H (13-35) U/L Globulin 3.8 H (1.6-3.3) g/dL Albumin/Globulin Ratio 1.11 L (1.60-3.17) Ratio Procalcitonin (0.02-0.50) ng/mL Cortisol (3.1-22.4) UG/DL Urine Appearance (Clear) Urine Protein (Negative) Urine Ketones (Negative) Urine Blood (Negative) Ur Leukocyte Esterase (Negative) Urine RBC (0-5) /hpf Urine WBC (0-5) /hpf Urine WBC Clumps (None) /hpf Urine Bacteria (None) /hpf Urine Yeast (Budding) (None) /hpf 08/17/24 08/17/24 08/17/24 Range/Units 09:47 11:34 11:34 WBC (4.50-10.00) X 10*3/uL Hgb (12.0-15.0) g/dL MCH (27.0-32.0) pg MCHC (32.0-37.0) g/dL RDW (11.5-14.5) % Immature Gran # (0.00-0.04) X 10*3/uL Neutrophils # (1.80-7.70) X 10*3/uL Lymphocytes # (0.90-5.00) X 10*3/uL Eosinophils # (0.04-0.35) X 10*3/uL APTT 100.8 H* (22.0-30.0) sec ABG pH 7.25 L (7.35-7.45) ABG pCO2 (35-45) mmHg ABG pO2 80 L (83-108) mmHg ABG HCO3 19 L (21-25) mmol/L ABG O2 Saturation (94-97) % Hemoglobin 11.0 L (11.4-16.0) gm/dL Carbon Dioxide (21.6-31.8) mmol/L Anion Gap (4.00-12.00) mmol/L BUN (9.0-27.0) mg/dL Creatinine (0.6-1.5) mg/dL Est GFR (CKD-EPI) (>=60) BUN/Creatinine Ratio (12.00-20.00) Ratio POC Glucose (mg/dL) (70-110) mg/dL Phosphorus (2.4-5.1) mg/dL Total Bilirubin (0.3-1.2) mg/dL AST (13-35) U/L Globulin (1.6-3.3) g/dL Albumin/Globulin Ratio (1.60-3.17) Ratio Procalcitonin (0.02-0.50) ng/mL Cortisol 23.6 H (3.1-22.4) UG/DL Urine Appearance (Clear) Urine Protein (Negative) Urine Ketones (Negative) Urine Blood (Negative) Ur Leukocyte Esterase (Negative) Urine RBC (0-5) /hpf Urine WBC (0-5) /hpf Urine WBC Clumps (None) /hpf Urine Bacteria (None) /hpf Urine Yeast (Budding) (None) /hpf 08/17/24 08/17/24 08/17/24 Range/Units 16:49 17:40 17:45 WBC (4.50-10.00) X 10*3/uL Hgb (12.0-15.0) g/dL MCH (27.0-32.0) pg MCHC (32.0-37.0) g/dL RDW (11.5-14.5) % Immature Gran # (0.00-0.04) X 10*3/uL Neutrophils # (1.80-7.70) X 10*3/uL Lymphocytes # (0.90-5.00) X 10*3/uL Eosinophils # (0.04-0.35) X 10*3/uL APTT (22.0-30.0) sec ABG pH (7.35-7.45) ABG pCO2 (35-45) mmHg ABG pO2 (83-108) mmHg ABG HCO3 (21-25) mmol/L ABG O2 Saturation (94-97) % Hemoglobin (11.4-16.0) gm/dL Carbon Dioxide (21.6-31.8) mmol/L Anion Gap (4.00-12.00) mmol/L BUN (9.0-27.0) mg/dL Creatinine (0.6-1.5) mg/dL Est GFR (CKD-EPI) (>=60) BUN/Creatinine Ratio (12.00-20.00) Ratio POC Glucose (mg/dL) 62 L 59 L (70-110) mg/dL Phosphorus (2.4-5.1) mg/dL Total Bilirubin (0.3-1.2) mg/dL AST (13-35) U/L Globulin (1.6-3.3) g/dL Albumin/Globulin Ratio (1.60-3.17) Ratio Procalcitonin 1.22 H (0.02-0.50) ng/mL Cortisol (3.1-22.4) UG/DL Urine Appearance (Clear) Urine Protein (Negative) Urine Ketones (Negative) Urine Blood (Negative) Ur Leukocyte Esterase (Negative) Urine RBC (0-5) /hpf Urine WBC (0-5) /hpf Urine WBC Clumps (None) /hpf Urine Bacteria (None) /hpf Urine Yeast (Budding) (None) /hpf 08/17/24 08/18/24 08/18/24 Range/Units 19:51 03:35 05:15 WBC (4.50-10.00) X 10*3/uL Hgb (12.0-15.0) g/dL MCH (27.0-32.0) pg MCHC (32.0-37.0) g/dL RDW (11.5-14.5) % Immature Gran # (0.00-0.04) X 10*3/uL Neutrophils # (1.80-7.70) X 10*3/uL Lymphocytes # (0.90-5.00) X 10*3/uL Eosinophils # (0.04-0.35) X 10*3/uL APTT 78.1 H (22.0-30.0) sec ABG pH (7.35-7.45) ABG pCO2 (35-45) mmHg ABG pO2 (83-108) mmHg ABG HCO3 (21-25) mmol/L ABG O2 Saturation (94-97) % Hemoglobin (11.4-16.0) gm/dL Carbon Dioxide (21.6-31.8) mmol/L Anion Gap (4.00-12.00) mmol/L BUN (9.0-27.0) mg/dL Creatinine (0.6-1.5) mg/dL Est GFR (CKD-EPI) (>=60) BUN/Creatinine Ratio (12.00-20.00) Ratio POC Glucose (mg/dL) 117 H (70-110) mg/dL Phosphorus (2.4-5.1) mg/dL Total Bilirubin (0.3-1.2) mg/dL AST (13-35) U/L Globulin (1.6-3.3) g/dL Albumin/Globulin Ratio (1.60-3.17) Ratio Procalcitonin (0.02-0.50) ng/mL Cortisol (3.1-22.4) UG/DL Urine Appearance Turbid H (Clear) Urine Protein 2+ H (Negative) Urine Ketones Trace H (Negative) Urine Blood Large H (Negative) Ur Leukocyte Esterase Large H (Negative) Urine RBC >182 H (0-5) /hpf Urine WBC >182 H (0-5) /hpf Urine WBC Clumps Many H (None) /hpf Urine Bacteria Many H (None) /hpf Urine Yeast (Budding) Few H (None) /hpf Microbiology - Last 24 Hours (Table) 08/16/24 16:32 Blood Culture - Preliminary Blood
--- NOTE | 2024-08-18 15:27 | P.PN ---
Subjective Progress Note Date: 08/18/24 Patient seen and examined. Essentially unchanged. No complaints. Was seen by hematology who believes she should be continued on medication as the patient has some degree of noncompliance previously. Objective - Vital Signs Vital signs: Vital Signs Temp 97.4 F L 08/18/24 14:43 Pulse 98 08/18/24 14:43 Resp 18 08/18/24 14:43 BP 106/74 08/18/24 14:43 Pulse Ox 98 08/18/24 14:43 FiO2 Intake & Output 08/17/24 08/18/24 08/18/24 18:59 06:59 18:59 Intake Total 805.677 3102 Output Total 800 500 Balance -655.867 600 Intake: Intake, IV Titration 144.133 900 Amount Heparin Sod,Pork in 0.45% 144.133 NaCl 25,000 unit In 0.45 % NaCl 1 250ml.bag @ 16. 902 UNITS/KG/HR 23 mls/hr IV .[id number] [facility] Rx#: [id number] Sodium Chloride 0.9% 1, 900 000 ml @ 75 mls/hr IV . [id number] [facility] Rx#:[id number] Oral 200 Output: Urine 800 500 Other: Voiding Method External Catheter External Catheter - Exam General appearance: The patient is alert, oriented, appears in no acute distress. Morbidly obese HET: Head is normocephalic and atraumatic. Neck: Supple. Heart: Regular. Lungs: Equal expansion, normal respiratory effort. Abdomen: Soft, nontender, nondistended. Extremities: Right below the knee amputation with erythema. Left lower extremity TMA Neurological: No focal deficits. Drifts off frequently - Labs CBC & Chem 7: 08/18/24 07:14 08/18/24 07:14 Labs: Abnormal Lab Results - Last 24 Hours (Table) 08/16/24 08/17/24 08/17/24 Range/Units 16:17 11:34 16:49 WBC (3.8-10.6) k/uL Hgb (11.4-16.0) gm/dL MCH (25.0-35.0) pg MCHC (31.0-37.0) g/dL RDW (11.5-15.5) % Neutrophils # (1.3-7.7) k/uL Lymphocytes # (1.0-4.8) k/uL APTT (22.0-30.0) sec Sodium (137-145) mmol/L Potassium (3.5-5.1) mmol/L Carbon Dioxide (22-30) mmol/L BUN (7-17) mg/dL Creatinine (0.52-1.04) mg/dL Glucose (74-99) mg/dL POC Glucose (mg/dL) 62 L (70-110) mg/dL Hemoglobin A1c 6.5 H (<=6.0) % Total Bilirubin (0.2-1.3) mg/dL AST (14-36) U/L ALT (4-34) U/L Procalcitonin (0.02-0.50) ng/mL Cortisol 23.6 H (3.1-22.4) UG/DL Urine Appearance (Clear) Urine Protein (Negative) Urine Ketones (Negative) Urine Blood (Negative) Ur Leukocyte Esterase (Negative) Urine RBC (0-5) /hpf Urine WBC (0-5) /hpf Urine WBC Clumps (None) /hpf Urine Bacteria (None) /hpf Urine Yeast (Budding) (None) /hpf 08/17/24 08/17/24 08/17/24 Range/Units 17:40 17:45 19:51 WBC (3.8-10.6) k/uL Hgb (11.4-16.0) gm/dL MCH (25.0-35.0) pg MCHC (31.0-37.0) g/dL RDW (11.5-15.5) % Neutrophils # (1.3-7.7) k/uL Lymphocytes # (1.0-4.8) k/uL APTT 78.1 H (22.0-30.0) sec Sodium (137-145) mmol/L Potassium (3.5-5.1) mmol/L Carbon Dioxide (22-30) mmol/L BUN (7-17) mg/dL Creatinine (0.52-1.04) mg/dL Glucose (74-99) mg/dL POC Glucose (mg/dL) 59 L (70-110) mg/dL Hemoglobin A1c (<=6.0) % Total Bilirubin (0.2-1.3) mg/dL AST (14-36) U/L ALT (4-34) U/L Procalcitonin 1.22 H (0.02-0.50) ng/mL Cortisol (3.1-22.4) UG/DL Urine Appearance (Clear) Urine Protein (Negative) Urine Ketones (Negative) Urine Blood (Negative) Ur Leukocyte Esterase (Negative) Urine RBC (0-5) /hpf Urine WBC (0-5) /hpf Urine WBC Clumps (None) /hpf Urine Bacteria (None) /hpf Urine Yeast (Budding) (None) /hpf 08/18/24 08/18/24 08/18/24 Range/Units 03:35 05:15 07:14 WBC 10.8 H (3.8-10.6) k/uL Hgb 10.4 L (11.4-16.0) gm/dL MCH 24.4 L (25.0-35.0) pg MCHC 29.2 L (31.0-37.0) g/dL RDW 19.1 H (11.5-15.5) % Neutrophils # 8.8 H (1.3-7.7) k/uL Lymphocytes # 0.9 L (1.0-4.8) k/uL APTT (22.0-30.0) sec Sodium (137-145) mmol/L Potassium (3.5-5.1) mmol/L Carbon Dioxide (22-30) mmol/L BUN (7-17) mg/dL Creatinine (0.52-1.04) mg/dL Glucose (74-99) mg/dL POC Glucose (mg/dL) 117 H (70-110) mg/dL Hemoglobin A1c (<=6.0) % Total Bilirubin (0.2-1.3) mg/dL AST (14-36) U/L ALT (4-34) U/L Procalcitonin (0.02-0.50) ng/mL Cortisol (3.1-22.4) UG/DL Urine Appearance Turbid H (Clear) Urine Protein 2+ H (Negative) Urine Ketones Trace H (Negative) Urine Blood Large H (Negative) Ur Leukocyte Esterase Large H (Negative) Urine RBC >182 H (0-5) /hpf Urine WBC >182 H (0-5) /hpf Urine WBC Clumps Many H (None) /hpf Urine Bacteria Many H (None) /hpf Urine Yeast (Budding) Few H (None) /hpf 08/18/24 Range/Units 07:14 WBC (3.8-10.6) k/uL Hgb (11.4-16.0) gm/dL MCH (25.0-35.0) pg MCHC (31.0-37.0) g/dL RDW (11.5-15.5) % Neutrophils # (1.3-7.7) k/uL Lymphocytes # (1.0-4.8) k/uL APTT (22.0-30.0) sec Sodium 134 L (137-145) mmol/L Potassium 5.5 H (3.5-5.1) mmol/L Carbon Dioxide 19 L (22-30) mmol/L BUN 58 H (7-17) mg/dL Creatinine 2.78 H (0.52-1.04) mg/dL Glucose 101 H (74-99) mg/dL POC Glucose (mg/dL) (70-110) mg/dL Hemoglobin A1c (<=6.0) % Total Bilirubin 2.3 H (0.2-1.3) mg/dL AST 1556 H (14-36) U/L ALT 656 H (4-34) U/L Procalcitonin (0.02-0.50) ng/mL Cortisol (3.1-22.4) UG/DL Urine Appearance (Clear) Urine Protein (Negative) Urine Ketones (Negative) Urine Blood (Negative) Ur Leukocyte Esterase (Negative) Urine RBC (0-5) /hpf Urine WBC (0-5) /hpf Urine WBC Clumps (None) /hpf Urine Bacteria (None) /hpf Urine Yeast (Budding) (None) /hpf Microbiology - Last 24 Hours (Table) 08/17/24 14:13 Gram Stain - Preliminary Foot - Left 08/16/24 16:32 Blood Culture - Preliminary Blood Assessment and Plan Plan: 1. Right lower extremity DVT on Eliquis likely secondary to immobility 2. Previous right lower extremity DVT 3. Morbid obesity 4. Previous right BKA, left TMA 5. Diabetes mellitus 6. Nonambulatory 7. Seizure disorder Plan: 1. Continue IV heparin drip, per hematology okay to transition to oral anticoagulation, may consider Xarelto for improvement and compliance. No indication at this point for filter. Please let us know if further evaluation is necessary. Will sign off at this time.
--- NOTE | 2024-08-18 15:49 | P.PN ---
Subjective Progress Note Date: 08/18/24 Principal diagnosis: Reason for follow-up is left diabetic foot ulcer and cellulitis Patient is a 48-year female with multiple comorbidities including diabetes mellitus the patient did have a right diabetic foot infection requiring right below the amputation and a chronic nonhealing wound to the left foot to be getting to the hospital with cellulitis to the left lower extremity and wound infection. On today's evaluation that is 08/18/2024, Patient is afebrile patient is currently on 3 L nasal oxygen and complaining of some shortness of breath, the patient denies any chest pain did have some dry cough, the patient complaining of nausea but no vomiting did not have any abdominal pain and no diarrhea, still complaining of pain to the lower extremity no foul-smelling drainage. Patient white count is down to 10.8, creatinine 2.78 AST is up to 155 left foot and blood cultures are pending Objective - Vital Signs Vital signs: Vital Signs Temp 97.4 F L 08/18/24 14:43 Pulse 98 08/18/24 14:43 Resp 18 08/18/24 14:43 BP 106/74 08/18/24 14:43 Pulse Ox 98 08/18/24 14:43 FiO2 Intake & Output 08/17/24 08/18/24 08/18/24 18:59 06:59 18:59 Intake Total 150.333 3948 Output Total 800 500 Balance -655.867 600 Intake: Intake, IV Titration 144.133 900 Amount Heparin Sod,Pork in 0.45% 144.133 NaCl 25,000 unit In 0.45 % NaCl 1 250ml.bag @ 16. 902 UNITS/KG/HR 23 mls/hr IV .[id number] [facility] Rx#: [id number] Sodium Chloride 0.9% 1, 900 000 ml @ 75 mls/hr IV . [id number] [facility] Rx#:[id number] Oral 200 Output: Urine 800 500 Other: Voiding Method External Catheter External Catheter - Exam GENERAL DESCRIPTION: Middle-age female lying in bed in no distress RESPIRATORY SYSTEM: Unlabored breathing , decreased breath sounds at bases HEART: S1 S2 regular rate and rhythm , ABDOMEN: Soft , no tenderness EXTREMITIES: Left leg did have swelling and redness wound to the foot is dressed - Labs CBC & Chem 7: 08/18/24 07:14 08/18/24 07:14 Labs: Abnormal Lab Results - Last 24 Hours (Table) 08/16/24 08/17/24 08/17/24 Range/Units 16:17 11:34 16:49 WBC (3.8-10.6) k/uL Hgb (11.4-16.0) gm/dL MCH (25.0-35.0) pg MCHC (31.0-37.0) g/dL RDW (11.5-15.5) % Neutrophils # (1.3-7.7) k/uL Lymphocytes # (1.0-4.8) k/uL APTT (22.0-30.0) sec Sodium (137-145) mmol/L Potassium (3.5-5.1) mmol/L Carbon Dioxide (22-30) mmol/L BUN (7-17) mg/dL Creatinine (0.52-1.04) mg/dL Glucose (74-99) mg/dL POC Glucose (mg/dL) 62 L (70-110) mg/dL Hemoglobin A1c 6.5 H (<=6.0) % Total Bilirubin (0.2-1.3) mg/dL AST (14-36) U/L ALT (4-34) U/L Ammonia (<30) umol/L Procalcitonin (0.02-0.50) ng/mL Cortisol 23.6 H (3.1-22.4) UG/DL Urine Appearance (Clear) Urine Protein (Negative) Urine Ketones (Negative) Urine Blood (Negative) Ur Leukocyte Esterase (Negative) Urine RBC (0-5) /hpf Urine WBC (0-5) /hpf Urine WBC Clumps (None) /hpf Urine Bacteria (None) /hpf Urine Yeast (Budding) (None) /hpf 08/17/24 08/17/24 08/17/24 Range/Units 17:40 17:45 19:51 WBC (3.8-10.6) k/uL Hgb (11.4-16.0) gm/dL MCH (25.0-35.0) pg MCHC (31.0-37.0) g/dL RDW (11.5-15.5) % Neutrophils # (1.3-7.7) k/uL Lymphocytes # (1.0-4.8) k/uL APTT 78.1 H (22.0-30.0) sec Sodium (137-145) mmol/L Potassium (3.5-5.1) mmol/L Carbon Dioxide (22-30) mmol/L BUN (7-17) mg/dL Creatinine (0.52-1.04) mg/dL Glucose (74-99) mg/dL POC Glucose (mg/dL) 59 L (70-110) mg/dL Hemoglobin A1c (<=6.0) % Total Bilirubin (0.2-1.3) mg/dL AST (14-36) U/L ALT (4-34) U/L Ammonia (<30) umol/L Procalcitonin 1.22 H (0.02-0.50) ng/mL Cortisol (3.1-22.4) UG/DL Urine Appearance (Clear) Urine Protein (Negative) Urine Ketones (Negative) Urine Blood (Negative) Ur Leukocyte Esterase (Negative) Urine RBC (0-5) /hpf Urine WBC (0-5) /hpf Urine WBC Clumps (None) /hpf Urine Bacteria (None) /hpf Urine Yeast (Budding) (None) /hpf 08/18/24 08/18/24 08/18/24 Range/Units 03:35 05:15 07:14 WBC 10.8 H (3.8-10.6) k/uL Hgb 10.4 L (11.4-16.0) gm/dL MCH 24.4 L (25.0-35.0) pg MCHC 29.2 L (31.0-37.0) g/dL RDW 19.1 H (11.5-15.5) % Neutrophils # 8.8 H (1.3-7.7) k/uL Lymphocytes # 0.9 L (1.0-4.8) k/uL APTT (22.0-30.0) sec Sodium (137-145) mmol/L Potassium (3.5-5.1) mmol/L Carbon Dioxide (22-30) mmol/L BUN (7-17) mg/dL Creatinine (0.52-1.04) mg/dL Glucose (74-99) mg/dL POC Glucose (mg/dL) 117 H (70-110) mg/dL Hemoglobin A1c (<=6.0) % Total Bilirubin (0.2-1.3) mg/dL AST (14-36) U/L ALT (4-34) U/L Ammonia (<30) umol/L Procalcitonin (0.02-0.50) ng/mL Cortisol (3.1-22.4) UG/DL Urine Appearance Turbid H (Clear) Urine Protein 2+ H (Negative) Urine Ketones Trace H (Negative) Urine Blood Large H (Negative) Ur Leukocyte Esterase Large H (Negative) Urine RBC >182 H (0-5) /hpf Urine WBC >182 H (0-5) /hpf Urine WBC Clumps Many H (None) /hpf Urine Bacteria Many H (None) /hpf Urine Yeast (Budding) Few H (None) /hpf 08/18/24 08/18/24 Range/Units 07:14 15:10 WBC (3.8-10.6) k/uL Hgb (11.4-16.0) gm/dL MCH (25.0-35.0) pg MCHC (31.0-37.0) g/dL RDW (11.5-15.5) % Neutrophils # (1.3-7.7) k/uL Lymphocytes # (1.0-4.8) k/uL APTT (22.0-30.0) sec Sodium 134 L (137-145) mmol/L Potassium 5.5 H (3.5-5.1) mmol/L Carbon Dioxide 19 L (22-30) mmol/L BUN 58 H (7-17) mg/dL Creatinine 2.78 H (0.52-1.04) mg/dL Glucose 101 H (74-99) mg/dL POC Glucose (mg/dL) (70-110) mg/dL Hemoglobin A1c (<=6.0) % Total Bilirubin 2.3 H (0.2-1.3) mg/dL AST 1556 H (14-36) U/L ALT 656 H (4-34) U/L Ammonia 75 H (<30) umol/L Procalcitonin (0.02-0.50) ng/mL Cortisol (3.1-22.4) UG/DL Urine Appearance (Clear) Urine Protein (Negative) Urine Ketones (Negative) Urine Blood (Negative) Ur Leukocyte Esterase (Negative) Urine RBC (0-5) /hpf Urine WBC (0-5) /hpf Urine WBC Clumps (None) /hpf Urine Bacteria (None) /hpf Urine Yeast (Budding) (None) /hpf Microbiology - Last 24 Hours (Table) 08/17/24 14:13 Gram Stain - Preliminary Foot - Left 08/16/24 16:32 Blood Culture - Preliminary Blood Assessment and Plan (1) Cellulitis of left foot Current Visit: Yes Status: Acute Code(s): L03.116 - CELLULITIS OF LEFT LOWER LIMB SNOMED Code(s): 00089956199922991 (2) Allergy to multiple antibiotics Current Visit: No Status: Acute Code(s): Z88.1 - ALLERGY STATUS TO OTHER ANTIBIOTIC AGENTS SNOMED Code(s): 129875635 (3) Diabetic ulcer of left foot Current Visit: No Status: Acute Code(s): E11.621 - TYPE 2 DIABETES MELLITUS WITH FOOT ULCER; L97.529 - NON-PRESSURE CHRONIC ULCER OTH PRT LEFT FOOT W UNSP SEVERITY SNOMED Code(s): 617988513 Plan: 1patient with a chronic nonhealing wound to the left foot plantar aspect now with evidence of left lower extremity cellulitis likely being treated for this episode of cellulitis and will need to cover for the gram-positive as well as gram-negative pathogen. 2patient with multiple antibiotic ALLERGIES that would limit the number of antibiotic safe to use 3local wound culture currently pending blood cultures are pending 4-patient to continue with Rocephin and daptomycin pending cultures fin alization, noted to have significant jump in the AST repeat LFT in the a.m. lab discussed with admitting physician Dictation was produced using [employer] dictation software. please excuse any grammatical, word or spelling errors. Time with Patient: Less than 30
--- NOTE | 2024-08-18 15:51 | US ---
EXAMINATION TYPE: US abd limited kidneys/bladder DATE OF EXAM: 08/18/2024 Exam done portable COMPARISON: US 2023, CT 2018 CLINICAL INDICATION: Female, 48 years old with history of elevated lft; TECHNIQUE: Multiple sonographic images of the right upper quadrant, bilateral kidneys, and bladder ar e obtained. FINDINGS: EXAM MEASUREMENTS: Liver Length: 20.0 cm Gallbladder Wall: 0.3 cm CBD: 0.4 cm Right Kidney: 12.9 x 4.9 x 5.4 cm Left Kidney: n/a Difficult and limited study due to morbidly obese patient Pancreas: visualized portions wnl, limited by overlying midline bowel gas Liver: enlarged, attenuating Gallbladder: wnl CBD: visualized portions wnl, limited by overlying bowel gas Right Kidney: 0.9cm focus inferior pole Left Kidney: not seen due to patient body habitus and position Bladder: limited visualization, not fully distended IMPRESSION: 1. No evidence for acute abdominal process. 2. Hepatic steatosis. 3. Nonobstructing right renal calculus versus prominent renal sinus fat. [facility], Workstation: [id number], 08/18/2024 3:49 PM
[2024-08-18] MEDS: SODIUM CHLORIDE 0.9% 1,000 ML IV SCH (16:33)
[2024-08-18 17:22] LABS: Glucose,Whole Blood 66 mg/dL (70-110)
[2024-08-18 18:21] LABS: Glucose,Whole Blood 76 mg/dL (70-110)
[2024-08-18 21:29] LABS: Glucose,Whole Blood 72 mg/dL (70-110)
[2024-08-18] MEDS: ACETAMINOPHEN TAB 325 MG TAB PO PRN (21:42)
[2024-08-19 01:50] LABS: Glucose,Whole Blood 75 mg/dL (70-110)
[2024-08-19 06:02] LABS: Glucose,Whole Blood 61 mg/dL (70-110)
[2024-08-19 06:27] LABS: Glucose,Whole Blood 72 mg/dL (70-110)
[2024-08-19 07:03] LABS: Glucose,Whole Blood 91 mg/dL (70-110)
[2024-08-19 10:03] LABS: Anisocytosis Slight; Basophils % (A) 0 %; Eosinophils # (A) 0.4 k/uL (0-0.7); Eosinophils % (A) 4 %; HCT 35.8 % (34.0-46.0); HGB 10.6 gm/dL (11.4-16.0); Hypochromasia Marked; Lymphocytes # (A) 0.7 k/uL (1.0-4.8); Lymphocytes % (A) 7 %; MCH 24.4 pg (25.0-35.0); MCHC 29.6 g/dL (31.0-37.0); MCV 82.4 fL (80.0-100.0); Microcytosis Slight; Monocytes # (A) 0.6 k/uL (0-1.0); Monocytes % (A) 7 %; Neutrophils # (A) 7.4 k/uL (1.3-7.7); Neutrophils % (A) 79 %; Platelet Count 236 k/uL (150-450); Poikilocytosis Moderate; RBC 4.34 m/uL (3.80-5.40); RDW 19.6 % (11.5-15.5); WBC 9.4 k/uL (3.8-10.6)
[2024-08-19 10:17] LABS: ALT 639 U/L (4-34); African American GFR (CKD) 33 (>60 ml/min/1.73 sqM); Albumin 3.6 g/dL (3.5-5.0); Alkaline Phosphatase 116 U/L (38-126); Anion Gap 13 mmol/L; Blood Urea Nitrogen 61 mg/dL (7-17); Calcium 8.2 mg/dL (8.4-10.2); Carbon Dioxide 18 mmol/L (22-30); Chloride 103 mmol/L (98-107); Globulin 3.5 g/dL; Glucose 83 mg/dL (74-99); Non-African American GFR(CKD) 28 (>60 ml/min/1.73 sqM); Sodium 134 mmol/L (137-145); Total Protein 7.1 g/dL (6.3-8.2)
[2024-08-19 10:23] LABS: AST 1165 U/L (14-36)
[2024-08-19] MEDS: LACTULOSE 20 GM/30 ML CUP PO SCH (12:09)
[2024-08-19] MEDS: DAPTOmycin 350 MG in SODIUM CHLORIDE 0.9% 50 ML IVPB SCH (12:10)
[2024-08-19 12:16] LABS: Glucose,Whole Blood 72 mg/dL (70-110)
--- NOTE | 2024-08-19 12:20 | P.NPCON ---
History of Present Illness - Reason for Consult Consult date: 08/19/24 acute renal failure - Chief Complaint Leg Edema - History of Present Illness Patient is a 48-year-old female with a past medical history of right lower extremity DVT maintained on Eliquis, right BKA, and left TMA who presented to the emergency department with severe right lower extremity pain and recent falls from her wheelchair during transfers. She was admitted to hospital for leg cellulitis and underwent US showing DVT. Initially started on diuretics for leg edema but creatinine continued to worsen and nephrology consulted. She states her appetite is not great but trying to keep up on fluids. Edema and leg pain improving. No other complaints at this time. Vital signs are reviewed. General: No acute distress. Arousable, oriented x 3. Morbidly obese. HEENT: Head exam is unremarkable. Lungs: Bilateral breath sounds present; no rhonchi, wheezes, or rales. Heart: Rate and rhythm are regular. S1-S2 present. Abdomen: Soft, nontender, nondistended. Bowel sounds present. Extremities: Right BKA with warmth and erythema. Left TMA with ulcer on bottom and LLE cellulitis. Review of Systems Constitutional: Reports as per HPI Past Medical History Past Medical History: Asthma, Heart Failure, COPD, CVA/TIA, Diabetes Mellitus, Deep Vein Thrombosis (DVT), Hypertension, Myocardial Infarction (MT), Pneumonia, Seizure Disorder, Seizure Disorder Additional Past Medical History / Comment(s): uses a wheelchair. Patient states last seizure summer 2019 while she was at [facility]. cardiomyopathy sepsis hx Last Myocardial Infarction Date:: 06/2018 History of Any Multi-Drug Resistant Organisms: ESBL, VRE, VRE Date of last positivie culture/infection: 12/18/20 ESBL E.coli; 04/22/17 VRE MDRO Source:: ESBL Left foot; VRE Right Foot Past Surgical History: Adenoidectomy, AICD, Section, Heart Catheterization, Orthopedic Surgery, Pacemaker, Tonsillectomy Additional Past Surgical History / Comment(s): AICD - [employer]. has pacemaker defibrillator, right all toe amputated 04/2016, R BKA 2019, LT GREAT TOE then left foot partial amputation, cardiac cath 2022 Past Anesthesia/Blood Transfusion Reactions: Postoperative Nausea & Vomiting (PONV) Type of Cardiac Device: Biventricular Pacemaker, Permanent Pacemaker, AICD Device Placement Date:: 2011 Past Psychological History: Bipolar Additional Psychological History / Comment(s): She is wheelchair bound/transfers self. She has a glucometer and nebulizer. Smoking Status: Never smoker Past Alcohol Use History: None Reported Additional Past Alcohol Use History / Comment(s): quit 2017 Past Drug Use History: Marijuana Additional Drug Use History / Comment(s): Pt smokes marijuana at HS for a sleep aide or for pain control - Past Family History Mother Family Medical History: Unable to Obtain, Deep Vein Thrombosis (DVT) Additional Family Medical History / Comment(s): Some type of heart problems, kidney failure. Father History Unknown: Yes Family Medical History: Unable to Obtain Additional Family Medical History / Comment(s): Patient denies knowing any medi gina history on her father. Medications and Allergies Home Medications Medication Instructions Recorded Confirmed Type Insulin Glargine [Lantus Vial] 40 unit SQ HS 04/30/19 08/16/24 History Pantoprazole [Protonix] 40 mg PO DAILY 01/29/24 08/16/24 History Apixaban [Eliquis] 5 mg PO BID 04/19/24 08/16/24 History Bumetanide [BUMEX] 2 mg PO DAILY 04/19/24 08/16/24 History Sacubitril/Valsartan [Entresto 49 1 tab PO BID 04/19/24 08/16/24 History mg-51 mg Tablet] ALPRAZolam [Xanax] 0.5 mg PO BID 08/16/24 08/16/24 History Gabapentin 600 mg PO TID 08/16/24 08/16/24 History Ipratropium-Albuterol Nebulize 3 ml INHALATION RT-TID PRN 08/16/24 08/16/24 History [Duoneb 0.5 mg-3 mg/3 ml Soln] Lacosamide [Vimpat] 50 mg PO BID 08/16/24 08/16/24 History Allergies Allergy/AdvReac Type Severity Reaction Status Date / Time Penicillins Allergy Rash/Hives Verified 08/16/24 17:58 vancomycin Allergy Rash/Hives Verified 08/16/24 17:58 ondansetron [From Zofran] AdvReac Nausea & Verified 08/16/24 17:58 Vomiting Physical Exam Vitals: Vital Signs Temp Pulse Resp BP BP Pulse Ox 08/19/24 08:09 98.3 F 93 18 112/77 08/19/24 01:45 96.8 F L 107 H 16 96/68 93 L 08/18/24 19:24 97.6 F 98 15 118/78 97 08/18/24 14:43 97.4 F L 98 18 106/74 98 Intake and Output 08/18/24 08/19/24 08/19/24 22:59 06:59 14:59 Intake Total 960 Output Total 150 750 Balance -150 210 Intake: Oral 960 Output: Urine 150 750 Other: # Voids 1 Results - Lab Results Most recent lab results ABG pH 7.25 (7.35-7.45) L 08/17/24 09:47 ABG pCO2 44 mmHg (35-45) 08/17/24 09:47 ABG pO2 80 mmHg (83-108) L 08/17/24 09:47 ABG HCO3 19 mmol/L (21-25) L 08/17/24 09:47 ABG O2 Saturation 94.4 % (94-97) 08/17/24 09:47 Calcium 8.2 mg/dL (8.4-10.2) L 08/19/24 09:50 Phosphorus 5.3 mg/dL (2.4-5.1) H 08/17/24 06:15 Magnesium 2.1 mg/dL (1.5-2.4) 08/17/24 06:15 08/19/24 09:50 08/19/24 09:50 Assessment and Plan Assessment: 1. Non-oliguric YOLA due to volume depletion and Lasix use. Baseline creatinine 0.8-1.0. Peaked 2.8, improved to 2.0 with IVF. UA concerning for UTI. 2. Hyperkalemia due to YOLA-Improved 3. Metabolic Acidosis due to YOLA 4. Mild hypovolemic hyponatremia 5. LLE cellulitis with DVT 6. Type 2 Diabetes Plan: Continue IVF as renal function and urine output improving Monitor potassium, should continue to improve as renal function does ABX per ID Monitor CPK level while on daptomycin No further work-up, hold any further diuretics for now.
--- NOTE | 2024-08-19 12:55 | P.PN ---
Subjective Progress Note Date: 08/19/24 Principal diagnosis: DVT, cellulitis. Pulmonary consult dated August 17, 2024. 48-year-old female very poor historian, who apparently presented to the emergency department on August 16, at about 3:45 in the afternoon. The patient apparently came in complaining of bilateral lower extremity pain, and swelling. The patient denied any respiratory issues including shortness of breath, cough, wheezing, chest tightness, and phlegm production. The patient has a previous history of a right BKA, and a left trans metatarsal amputation. The patient had Dopplers done, and apparently on the right side, there was a DVT noted. She is currently on IV heparin. She does use home oxygen at 2 L. Here she is on 3 L. Her saturations are between 93 and 95%. In addition IV heparin she is getting saline at 20 cc an hour. I asked her about smoking, he apparently started smoking at the age of 11. She could not remember when she stopped smoking. She apparently has a history of diabetes, heart failure, COPD/asthma, CVA, DVT, hypertension, myocardial infarction, pneumonia, and seizure disorder. She has had previous infections, including ESBL, and VRE infections. Also, the patient has had a previous history of an AICD placement, and heart catheterization. Current labs include a white count of 12.8, hemoglobin 11.1, hematocrit 39.3, and a normal platelet count. The patient's PTT is 100.8. She had blood gases done twice. The first blood gas, showed a pO2 of 32, pCO2 of 49, pH of 7.24. I do not know that is believable. The second blood gas seems much more believable with a pO2 of 80, pCO2 of 44, pH of 7.25. Chest x-ray shows some very mild pulmonary vascular congestion, and some cardiomegaly. Progress note dated August 18, 2024. 48-year-old female that I saw yesterday in consultation. Please see my note above. The patient was admitted with a diagnosis of DVT, of the right lower extremity. The patient is seen today in room 474. She is lethargic like she was yesterday. She is on 3 L nasal cannula. Saturations are 98%. Her N- terminal proBNP was 21,900. Her procalcitonin level was elevated at 1.22. She remains on Rocephin and daptomycin as per infectious diseases. White count 10.8, hemoglobin 10.4, hematocrit 35.8, platelet count 244,000. Sodium 134, potassium 5.5, chlorides 101, CO2 19, anion gap 14, BUN 58, creatinine 2.78. AST is 1556. ALT is 656. Urinalysis suggest the possibility of a urinary tract infection. Thus far, cultures are negative. Brain CT was negative. It did show an old lacunar infarct left thalamus. The perfusion study was nondiagnostic as expected, given the abnormality of the chest x-ray. Progress note dated August 19, 2024. 48-year-old female seen in consultation 2 days ago. The patient was admitted with a diagnosis of DVT, of the right lower extremity. In addition, she may have a urinary tract infection, as well as infection of the left foot. Currently, she is on 3 L of oxygen. She is getting saline at 75 cc an hour. She continues on Rocephin and daptomycin. She has been seen by infectious diseases. Current laboratory data includes a white count of 9.4, hemoglobin 10.6, hematocrit 35.8, and a platelet count of 236,000. Sodium 134, potassium 5, chlorides 103, CO2 18, BUN 61, creatinine 2.02. AST is 1165. ALT is 639. Wound culture, from the left foot, shows presumptive Staph aureus. Objective - Vital Signs Vital signs: Vital Signs Temp 98.3 F 08/19/24 08:09 Pulse 93 08/19/24 08:09 Resp 18 08/19/24 08:09 BP 112/77 08/19/24 08:09 Pulse Ox 93 L 08/19/24 01:45 FiO2 Intake & Output 08/18/24 08/19/24 08/19/24 18:59 06:59 18:59 Intake Total 960 Output Total 900 525 Balance 60 -525 Intake: Oral 960 Output: Urine 900 525 Other: # Voids 1 - Exam No acute distress, lethargic and sleepy, very poor historian. 3 L saturation is 96 %. HEENT examination is grossly unremarkable. Mucous membranes are moist. No oral lesions. Neck supple. Full range of motion. No adenopathy thyromegaly or neck vein distention. Cardiovascular examination reveals regular rhythm rate. S1-S2 normal. No S3 or S4. No discernible murmur noted. Sounds are distant. Heart rate 93 bpm. Lungs reveal mostly clear breath sounds. Minimal rhonchi. No wheezes or crackles. The patient is not particularly cooperative, so examination was not particularly beneficial. Abdomen soft, and obese. Bowel sounds are noted. No mass. Extremities revealed a right below the knee amputation, and transmetatarsal amputation on the left. Skin is without rash or lesion. Neurologic examination difficult to assess. - Labs CBC & Chem 7: 08/19/24 09:50 08/19/24 09:50 Labs: Abnormal Lab Results - Last 24 Hours (Table) 08/18/24 08/18/24 08/19/24 Range/Units 15:10 17:20 06:01 Hgb (11.4-16.0) gm/dL MCH (25.0-35.0) pg MCHC (31.0-37.0) g/dL RDW (11.5-15.5) % Lymphocytes # (1.0-4.8) k/uL Sodium (137-145) mmol/L Carbon Dioxide (22-30) mmol/L BUN (7-17) mg/dL Creatinine (0.52-1.04) mg/dL POC Glucose (mg/dL) 66 L 61 L (70-110) mg/dL Calcium (8.4-10.2) mg/dL Total Bilirubin (0.2-1.3) mg/dL AST (14-36) U/L ALT (4-34) U/L Ammonia 75 H (<30) umol/L 08/19/24 08/19/24 08/19/24 Range/Units 09:50 09:50 09:50 Hgb 10.6 L (11.4-16.0) gm/dL MCH 24.4 L (25.0-35.0) pg MCHC 29.6 L (31.0-37.0) g/dL RDW 19.6 H (11.5-15.5) % Lymphocytes # 0.7 L (1.0-4.8) k/uL Sodium 134 L (137-145) mmol/L Carbon Dioxide 18 L (22-30) mmol/L BUN 61 H (7-17) mg/dL Creatinine 2.02 H (0.52-1.04) mg/dL POC Glucose (mg/dL) (70-110) mg/dL Calcium 8.2 L (8.4-10.2) mg/dL Total Bilirubin 2.0 H (0.2-1.3) mg/dL AST 1165 H (14-36) U/L ALT 639 H (4-34) U/L Ammonia 63 H (<30) umol/L Microbiology - Last 24 Hours (Table) 08/17/24 14:13 Gram Stain - Preliminary Foot - Left Wound Culture - Preliminary Presumptive Staph aureus 08/16/24 16:32 Blood Culture - Preliminary Blood Assessment and Plan Assessment: Right lower extremity DVT. Mild congestive heart failure. Doubt pulmonary embolism. Cellulitis, left foot, secondary to presumptive Staphylococcus. Prior right below the knee amputation, and left transmetatarsal amputation. History of COPD/asthma. History of CHF. Diabetes mellitus. History of CVA. Prior history of myocardial infarction. History of hypertension. History of DVT. Obesity. Multiple drug-resistant infections. Previous history of heart catheterization. History of pacemaker implantation. Plan: Plan dated August 17, 2024. The patient is not complaining of shortness of breath, but her chest x-ray is consistent with cardiomegaly, mild pulmonary vascular congestion. I will check an N-terminal proBNP. She does not use home oxygen, at 2 L. The patient's major complaint was that she could not walk. She denied any respiratory issues including shortness of breath, cough, wheezing, phlegm production, etc. The patient does have a history of tobacco use, but she was really unable to quantitate how much she has smoked in the past. Labs, x-rays, and medications are reviewed. We will continue to follow. Patient was a very poor historian, and it was difficult to get any history from her. Plan dated August 18, 2024. The patient is being treated for a left foot cellulitis. She continues on Rocephin and daptomycin. 3 L saturation is 98%. N-terminal proBNP was quite elevated at 21,900. Procalcitonin was elevated at 1.22, as expected. Perfusion lung scan, was nondiagnostic. This is expected given the abnormality seen on chest x-ray. It should not have been ordered in my opinion. Labs, x-rays, and medications are reviewed. We will continue to follow. The patient is already on a factor Xa inhibitor. We will continue to follow. Prognosis is guarded. No additional recommendations at this time. Plan dated August 19, 2024. The patient is again seen in room 474. She continues on Rocephin and daptomycin. The left leg wound, showing presumptive staph. The patient is on saline at 75 cc an hour. The patient is getting nasal O2 at 3 L. Labs, x-rays, medications are reviewed. We will continue to follow. Prognosis is guarded. Time with Patient: Less than 30
--- NOTE | 2024-08-19 14:12 | P.PN ---
Subjective Progress Note Date: 08/19/24 Patient is a 48-year-old female with a past medical history of right lower extremity DVT maintained on Eliquis, right BKA, and left TMA who presented to the emergency department with severe right lower extremity pain and recent falls from her wheelchair during transfers. She is a poor historian at the time of the interview. She is very lethargic and falls asleep while answering questionsAO x 2. She rarely opens her eyes without stimulus. During the interview she is noted to have increased respiratory effort, respiratory rate of 10-12, and small sluggish pupils. Narcan was administered and patient became more alert and respiratory rate improved to 16, AOx3, now able to complete full sentences but remains with eyes closed unless prompted to open. Now she states that she has been having bilateral lower extremity pain worse on the right with erythema and swelling of the right lower extremity. She reports compliance with her medications. She also reports some abdominal pain with a few episodes of vomitingappears nonbloody. She endorses pain in the right lower extremity. She denies chest pain, shortness of breath, current abdominal pain, nausea, vomiting. Femur x-ray unremarkable. Bilateral lower extremity venous Doppler showed positive right lower extremity DVT femoral vein to popliteal vein. EKG shows pacing by AICD. WBC 6.1, hemoglobin 10.1, platelets 179, PT 13.3, INR 1.3, sodium 136, potassium 4.6, CO2 20, creatinine 1.73, GFR 34, lactic acid 2.2, phosphorus 4.6, CRP 2.9, TSH 27.6. Afebrile, normotensive, tachycardic in the low 100s saturating well on room air. 08/18. Patient seen sleeping in bed. Still with eyes closed while conversing but will open them when prompted. States she's had no energy for days. Chest x-ray 08/17: Cardiomegaly and mild pulmonary vascular congestion. Brain CT 08/17: No acute intracranial process, old lacunar infarct left thalamus. Pulmonary perfusion scan 08/18: No mismatch defect is evident, intermediate probability for acute pulmonary embolism. WBCs 10.8, hemoglobin 10.4, sodium 134, potassium 5.5, creatinine 2.78, hemoglobin A1c 6.5, N-terminal proBNP 21.9, procalcitonin 1.22. 08/19. Patient seen and examined. Ultrasound abdomen done showed no evidence for acute abdominal process, hepatic steatosis. Ultrasound of kidneys done showed nonobstructing right renal calculus. Patient stated she feels better, still has pain in the right BKA stump REVIEW OF SYSTEMS: CONSTITUTIONAL: No fever, no malaise,. CARDIOVASCULAR: No chest pain, no palpitations, no syncope. PULMONARY: No shortness of breath, no cough, GASTROINTESTINAL: No diarrhea, no nausea, no vomiting, no abdominal pain. NEUROLOGICAL: No headaches, no weakness, PHYSICAL EXAMINATION: GENERAL: The patient is alert and oriented x3, not in any acute distress. Well developed, well nourished. HEENT: Pupils are round and equally reacting to light. EOMI. No scleral icterus. No conjunctival pallor. Normocephalic, atraumatic. No pharyngeal erythema. No thyromegaly. CARDIOVASCULAR: S1 and S2 present. No murmurs, rubs, or gallops. PULMONARY: Chest is clear to auscultation, no wheezing or crackles. ABDOMEN: Soft, nontender, nondistended, normoactive bowel sounds. No palpable organomegaly. MUSCULOSKELETAL: Right BKA, stump erythema seen. Left TMA, erythema of the calf seen EXTREMITIES: No cyanosis, clubbing, or pedal edema. NEUROLOGICAL: Gross neurological examination did not reveal any focal deficits. SKIN: No rashes. Assessment and plan Acute toxic metabolic encephalopathy secondary to medications Improving Judicious use of pain medication Acute transaminitis Avoid hepatotoxic agents Monitor LFTs Continue lactulose Acute kidney injury Hyperkalemia Strict I's and O's, daily weights Monitor renal function Continue IV fluids Avoid nephrotoxic agents Consult nephrology Right lower extremity deep vein thrombosis Continue Eliquis Surgery consultedno surgical intervention at this time Heme/onc consulted-restarted Eliquis Acute hypoxemic respiratory failure continue oxygen supplementation Aggressive bronchopulmonary hygiene Continue breathing treatments Pulmonology consulted Left lower extremity cellulitis Continue Rocephin and daptomycin Pending wound cultures Infectious disease following Wound care consulted Hypothyroidism Continue levothyroxine 50 mcg daily Diabetes mellitus type 2 Monitor glucose Insulin sliding scale Labs and medication were reviewed.. Continue same treatment. Continue with symptomatic treatment. Resume home medication. Monitor labs and vitals. DVT and GI prophylaxis. Further recommendations as per clinical course of the patient Dictation was produced using [employer] dictation software. please excuse any grammatical, word or spelling errors. Objective - Vital Signs Vital signs: Vital Signs Temp 98.3 F 08/19/24 08:09 Pulse 93 08/19/24 08:09 Resp 18 08/19/24 08:09 BP 112/77 08/19/24 08:09 Pulse Ox 93 L 08/19/24 01:45 FiO2 Intake & Output 08/18/24 08/19/24 08/19/24 18:59 06:59 18:59 Intake Total 960 Output Total 900 Balance 60 Intake: Oral 960 Output: Urine 900 Other: # Voids 1 - Labs CBC & Chem 7: 08/19/24 09:50 08/19/24 09:50 Labs: Abnormal Lab Results - Last 24 Hours (Table) 08/18/24 08/18/24 08/19/24 Range/Units 15:10 17:20 06:01 POC Glucose (mg/dL) 66 L 61 L (70-110) mg/dL Ammonia 75 H (<30) umol/L Microbiology - Last 24 Hours (Table) 08/17/24 14:13 Gram Stain - Preliminary Foot - Left Wound Culture - Preliminary Presumptive Staph aureus 08/16/24 16:32 Blood Culture - Preliminary Blood
--- NOTE | 2024-08-19 16:24 | P.PN ---
Subjective Progress Note Date: 08/19/24 Principal diagnosis: Reason for follow-up is left diabetic foot ulcer and cellulitis Patient is a 48-year female with multiple comorbidities including diabetes mellitus the patient did have a right diabetic foot infection requiring right below the amputation and a chronic nonhealing wound to the left foot to be getting to the hospital with cellulitis to the left lower extremity and wound infection. On today's evaluation that is 08/19/2024, patient has been afebrile, patient is breathing comfortably and is currently on 3 L current oxygen, patient denies having any significant cough no chest pain shortness of breath, patient denies nausea vomiting or diarrhea and no abdominal pain left leg pain has slightly decreased in intensity. Patient white count normalized to 9.4, creatinine is 2.02 culture growing presumptive Staph aureus Objective - Vital Signs Vital signs: Vital Signs Temp 98.3 F 08/19/24 08:09 Pulse 93 08/19/24 08:09 Resp 18 08/19/24 08:09 BP 112/77 08/19/24 08:09 Pulse Ox 93 L 08/19/24 01:45 FiO2 Intake & Output 08/18/24 08/19/24 08/19/24 18:59 06:59 18:59 Intake Total 960 Output Total 900 525 Balance 60 -525 Intake: Oral 960 Output: Urine 900 525 Other: # Voids 1 - Exam GENERAL DESCRIPTION: Middle-age female lying in bed in no distress RESPIRATORY SYSTEM: Unlabored breathing , decreased breath sounds at bases HEART: S1 S2 regular rate and rhythm , ABDOMEN: Soft , no tenderness EXTREMITIES: Left leg did have swelling and redness wound to the foot is dressed - Labs CBC & Chem 7: 08/19/24 09:50 08/19/24 09:50 Labs: Abnormal Lab Results - Last 24 Hours (Table) 08/18/24 08/18/24 08/19/24 Range/Units 15:10 17:20 06:01 Hgb (11.4-16.0) gm/dL MCH (25.0-35.0) pg MCHC (31.0-37.0) g/dL RDW (11.5-15.5) % Lymphocytes # (1.0-4.8) k/uL Sodium (137-145) mmol/L Carbon Dioxide (22-30) mmol/L BUN (7-17) mg/dL Creatinine (0.52-1.04) mg/dL POC Glucose (mg/dL) 66 L 61 L (70-110) mg/dL Calcium (8.4-10.2) mg/dL Total Bilirubin (0.2-1.3) mg/dL AST (14-36) U/L ALT (4-34) U/L Ammonia 75 H (<30) umol/L 08/19/24 08/19/24 08/19/24 Range/Units 09:50 09:50 09:50 Hgb 10.6 L (11.4-16.0) gm/dL MCH 24.4 L (25.0-35.0) pg MCHC 29.6 L (31.0-37.0) g/dL RDW 19.6 H (11.5-15.5) % Lymphocytes # 0.7 L (1.0-4.8) k/uL Sodium 134 L (137-145) mmol/L Carbon Dioxide 18 L (22-30) mmol/L BUN 61 H (7-17) mg/dL Creatinine 2.02 H (0.52-1.04) mg/dL POC Glucose (mg/dL) (70-110) mg/dL Calcium 8.2 L (8.4-10.2) mg/dL Total Bilirubin 2.0 H (0.2-1.3) mg/dL AST 1165 H (14-36) U/L ALT 639 H (4-34) U/L Ammonia 63 H (<30) umol/L Microbiology - Last 24 Hours (Table) 08/17/24 14:13 Gram Stain - Preliminary Foot - Left Wound Culture - Preliminary Presumptive Staph aureus 08/16/24 16:32 Blood Culture - Preliminary Blood Assessment and Plan (1) Cellulitis of left foot Current Visit: Yes Status: Acute Code(s): L03.116 - CELLULITIS OF LEFT LOWER LIMB SNOMED Code(s): 73996237810023107 (2) Allergy to multiple antibiotics Current Visit: No Status: Acute Code(s): Z88.1 - ALLERGY STATUS TO OTHER ANTIBIOTIC AGENTS SNOMED Code(s): 962939642 (3) Diabetic ulcer of left foot Current Visit: No Status: Acute Code(s): E11.621 - TYPE 2 DIABETES MELLITUS WITH FOOT ULCER; L97.529 - NON-PRESSURE CHRONIC ULCER OTH PRT LEFT FOOT W UNSP SEVERITY SNOMED Code(s): 401493269 Plan: 1patient with a chronic nonhealing wound to the left foot plantar aspect now with evidence of left lower extremity cellulitis likely being treated for this episode of cellulitis and will need to cover for the gram-positive as well as gram-negative pathogen. 2patient with multiple antibiotic ALLERGIES that would limit the number of antibiotic safe to use 3local wound culture currently growing Staph aureus with sensitivities pending 4-patient to continue with Rocephin and daptomycin pending cultures finalization, and monitor clinical course closely Dictation was produced using [employer] dictation software. please excuse any grammatical, word or spelling errors. Time with Patient: Less than 30
[2024-08-19 16:57] LABS: Glucose,Whole Blood 85 mg/dL (70-110)
[2024-08-19 21:22] LABS: Glucose,Whole Blood 95 mg/dL (70-110)
[2024-08-20 01:31] LABS: Glucose,Whole Blood 84 mg/dL (70-110)
[2024-08-20 06:42] LABS: Glucose,Whole Blood 51 mg/dL (70-110)
[2024-08-20 07:04] LABS: ALT 693 U/L (4-34); African American GFR (CKD) 33 (>60 ml/min/1.73 sqM); Albumin 4.3 g/dL (3.5-5.0); Albumin/Globulin Ratio 1.2; Alkaline Phosphatase 130 U/L (38-126); Anion Gap 22 mmol/L; Blood Urea Nitrogen 53 mg/dL (7-17); Calcium 9.2 mg/dL (8.4-10.2); Chloride 110 mmol/L (98-107); Creatine Kinase 111 U/L (30-135); Globulin 3.6 g/dL; Glucose 69 mg/dL (74-99); Non-African American GFR(CKD) 29 (>60 ml/min/1.73 sqM); Sodium 138 mmol/L (137-145); Total Bilirubin 2.4 mg/dL (0.2-1.3); Total Protein 7.9 g/dL (6.3-8.2)
[2024-08-20 07:35] LABS: Carbon Dioxide 6 mmol/L (22-30)
[2024-08-20 07:37] LABS: Potassium 5.6 mmol/L (3.5-5.1)
[2024-08-20 08:42] LABS: Anisocytosis Slight; Basophils % (A) 0 %; Eosinophils # (A) 0.1 k/uL (0-0.7); Eosinophils % (A) 0 %; HCT 40.5 % (34.0-46.0); HGB 11.8 gm/dL (11.4-16.0); Hypochromasia Marked; Lymphocytes # (A) 0.5 k/uL (1.0-4.8); Lymphocytes % (A) 3 %; MCH 24.7 pg (25.0-35.0); MCHC 29.1 g/dL (31.0-37.0); MCV 84.8 fL (80.0-100.0); Mean Platelet Volume 8.2; Monocytes # (A) 0.9 k/uL (0-1.0); Monocytes % (A) 5 %; Neutrophils # (A) 14.6 k/uL (1.3-7.7); Neutrophils % (A) 90 %; Platelet Count 263 k/uL (150-450); Poikilocytosis Moderate; RBC 4.78 m/uL (3.80-5.40); RDW 19.6 % (11.5-15.5); WBC 16.3 k/uL (3.8-10.6)
[2024-08-20 08:49] LABS: ABG Base Excess -12.2 mmol/L; ABG HCO3 14 mmol/L (21-25); ABG Oxygen Saturation 95.6 % (94-97); ABG PCO2 31 mmHg (35-45); ABG PH 7.26 (7.35-7.45); ABG PO2 84 mmHg (83-108); ABG TCO2 15 mmol/L (19-24); Allen Test Performed? Yes
[2024-08-20 11:23] LABS: INR 3.4 (<1.2); Prothrombin Time 33.3 sec (10.0-12.5)
[2024-08-20 11:42] LABS: Lactic Acid, Venous 9.2 mmol/L (0.7-2.0)
[2024-08-20 12:02] LABS: Glucose,Whole Blood 39 mg/dL (70-110)
[2024-08-20 12:02] LABS: Glucose,Whole Blood 36 mg/dL (70-110)
[2024-08-20] MEDS: SODIUM BICARB 8.4% 50 ML SYR (1 MEQ/ML) IV STA (12:16)
[2024-08-20 12:19] LABS: Glucose,Whole Blood 36 mg/dL (70-110)
[2024-08-20] MEDS: DAPTOmycin 350 MG in SODIUM CHLORIDE 0.9% 50 ML IVPB SCH (12:25)
[2024-08-20 12:41] LABS: Glucose,Whole Blood 39 mg/dL (70-110)
[2024-08-20] MEDS: DEXTROSE 50% SYRINGE 50 ML IVP PRN (12:45)
[2024-08-20] MEDS: DEXTROSE 5% IN WATER 1,000 ML with SODIUM BICARB (1 MEQ/ML) 150 ML IV SCH ×2 (12:57→16:00)
[2024-08-20 13:22] LABS: Glucose,Whole Blood 126 mg/dL (70-110)
--- NOTE | 2024-08-20 13:34 | P.PN ---
Subjective Progress Note Date: 08/20/24 Patient is a 48-year-old female with a past medical history of right lower extremity DVT maintained on Eliquis, right BKA, and left TMA who presented to the emergency department with severe right lower extremity pain and recent falls from her wheelchair during transfers. She is a poor historian at the time of the interview. She is very lethargic and falls asleep while answering questionsAO x 2. She rarely opens her eyes without stimulus. During the interview she is noted to have increased respiratory effort, respiratory rate of 10-12, and small sluggish pupils. Narcan was administered and patient became more alert and respiratory rate improved to 16, AOx3, now able to complete full sentences but remains with eyes closed unless prompted to open. Now she states that she has been having bilateral lower extremity pain worse on the right with erythema and swelling of the right lower extremity. She reports compliance with her medications. She also reports some abdominal pain with a few episodes of vomitingappears nonbloody. She endorses pain in the right lower extremity. She denies chest pain, shortness of breath, current abdominal pain, nausea, vomiting. Femur x-ray unremarkable. Bilateral lower extremity venous Doppler showed positive right lower extremity DVT femoral vein to popliteal vein. EKG shows pacing by AICD. WBC 6.1, hemoglobin 10.1, platelets 179, PT 13.3, INR 1.3, sodium 136, potassium 4.6, CO2 20, creatinine 1.73, GFR 34, lactic acid 2.2, phosphorus 4.6, CRP 2.9, TSH 27.6. Afebrile, normotensive, tachycardic in the low 100s saturating well on room air. 08/18. Patient seen sleeping in bed. Still with eyes closed while conversing but will open them when prompted. States she's had no energy for days. Chest x-ray 08/17: Cardiomegaly and mild pulmonary vascular congestion. Brain CT 08/17: No acute intracranial process, old lacunar infarct left thalamus. Pulmonary perfusion scan 08/18: No mismatch defect is evident, intermediate probability for acute pulmonary embolism. WBCs 10.8, hemoglobin 10.4, sodium 134, potassium 5.5, creatinine 2.78, hemoglobin A1c 6.5, N-terminal proBNP 21.9, procalcitonin 1.22. 08/19. Patient seen and examined. Ultrasound abdomen done showed no evidence for acute abdominal process, hepatic steatosis. Ultrasound of kidneys done showed nonobstructing right renal calculus. Patient stated she feels better, still has pain in the right BKA stump. 08/20. Patient seen laying in bed. Preliminary wound culture shows presumptive Staph aureus. Patient appears to be struggling to find her words/Labs: WBCs 16.3, hemoglobin 11.8, potassium 5.6, creatinine 1.99, total bilirubin 2.4. ABG: pH 7.26, pCO2 31, pO2 84, HCO3 14. Patient with worsening prognosis, transfer to ICU. Review of systems: ROS limited due to altered mental status. Pertinent positives and negatives as discussed in HPI. Physical examination: Vital signs are reviewed. General: No acute distress. Arousable, oriented x 3. Morbidly obese. HEENT: Head exam is unremarkable. Lateral third of eyebrows thinning. EOMI bilaterally. ACs patent. Nares patent. Lungs: Bilateral breath sounds present; no rhonchi, wheezes, or rales. Heart: Rate and rhythm are regular. S1-S2 present. No murmur/rub/gallops. Abdomen: Soft, nontender, nondistended. Bowel sounds present. Extremities: Right BKA with erythema. Left TMA with ulcer on bottom now covered with gauze and LLE cellulitis and warmth. Psych: Normal affect and mood. Cooperative. Assessment/Plan: Sepsis, possibly secondary to cellulitis Continue antibiotics Monitor CBC Monitor CMP Monitor lactacte Transfer to ICU Acute toxic metabolic encephalopathy secondary to medications Judicious use of pain medication Acute transaminitis Avoid hepatotoxic agents Monitor LFTs Continue lactulose Acute kidney injury Hyperkalemia Monitor CPK while on daptomycin Strict I's and O's Daily weights Monitor renal function Continue IV fluids Avoid nephrotoxic agents Nephrology following Right lower extremity deep vein thrombosis Continue Eliquis Surgery consultedno surgical intervention at this time Heme/onc consulted-restarted Eliquis Acute hypoxemic respiratory failure Continue oxygen supplementation Aggressive bronchopulmonary hygiene Continue breathing treatments Pulmonology consulted Left lower extremity cellulitis Continue Rocephin and daptomycin Pending wound cultures Infectious disease following Wound care consulted Hypothyroidism Continue levothyroxine 50 mcg daily Diabetes mellitus type 2 Monitor glucose Insulin sliding scale DVT prophylaxis: Eliquis Chronic conditions: Recurrent DVTs, systolic CHF, chronic kidney disease stage IIIb, diabetes mellitus type 2, seizures, history of AICD placement, history of cardiac catheterizations Attestation I have seen and examined this patient with my resident , discussed the same with the resident/ANTONIA, and agree with the dictator's assessment and plan as written Labs were reviewed, patient has worsening acidosis, ABGs were ordered. Patient was started on bicarb drip. Discussed with ICU regarding worsening clinical condition, patient to be transferred to ICU and started on pressors Dr. Yash davidson Objective - Vital Signs Vital signs: Vital Signs Temp 97.8 F 08/20/24 01:28 Pulse 102 H 08/20/24 01:28 Resp 17 08/20/24 01:28 BP 124/78 08/20/24 01:28 Pulse Ox 96 08/20/24 01:28 FiO2 Intake & Output 08/19/24 08/20/24 08/20/24 18:59 06:59 18:59 Intake Total 650 Output Total 1325 850 Balance -675 -850 Intake: Intake, IV Titration 650 Amount DAPTOmycin 350 mg In 50 Sodium Chloride 0.9% 50 ml @ 100 mls/hr IVPB Q24HR@1200 JAN Rx#: [id number] Sodium Chloride 0.9% 1, 600 000 ml @ 75 mls/hr IV . [id number] JAN Rx#:[id number] Output: Urine 1325 850 Other: # Voids 1 # Bowel Movements 1 4 - Labs CBC & Chem 7: 08/21/24 04:42 08/21/24 04:42 Labs: Abnormal Lab Results - Last 24 Hours (Table) 08/19/24 08/19/24 08/19/24 Range/Units 09:50 09:50 09:50 Hgb 10.6 L (11.4-16.0) gm/dL MCH 24.4 L (25.0-35.0) pg MCHC 29.6 L (31.0-37.0) g/dL RDW 19.6 H (11.5-15.5) % Lymphocytes # 0.7 L (1.0-4.8) k/uL Sodium 134 L (137-145) mmol/L Carbon Dioxide 18 L (22-30) mmol/L BUN 61 H (7-17) mg/dL Creatinine 2.02 H (0.52-1.04) mg/dL POC Glucose (mg/dL) (70-110) mg/dL Calcium 8.2 L (8.4-10.2) mg/dL Total Bilirubin 2.0 H (0.2-1.3) mg/dL AST 1165 H (14-36) U/L ALT 639 H (4-34) U/L Ammonia 63 H (<30) umol/L 08/20/24 Range/Units 06:41 Hgb (11.4-16.0) gm/dL MCH (25.0-35.0) pg MCHC (31.0-37.0) g/dL RDW (11.5-15.5) % Lymphocytes # (1.0-4.8) k/uL Sodium (137-145) mmol/L Carbon Dioxide (22-30) mmol/L BUN (7-17) mg/dL Creatinine (0.52-1.04) mg/dL POC Glucose (mg/dL) 51 L (70-110) mg/dL Calcium (8.4-10.2) mg/dL Total Bilirubin (0.2-1.3) mg/dL AST (14-36) U/L ALT (4-34) U/L Ammonia (<30) umol/L Microbiology - Last 24 Hours (Table) 08/16/24 16:32 Blood Culture - Preliminary Blood 08/17/24 14:13 Gram Stain - Preliminary Foot - Left Wound Culture - Preliminary Presumptive Staph aureus
--- NOTE | 2024-08-20 13:36 | P.PN ---
Subjective Progress Note Date: 08/20/24 Patient seen at beside. No acute events overnight. Potassium was 5, now at 5.6. Bicarb at 6. ABG shows pH 7.26 CO2 31 O2 84 bicarb 14 FiO2 of 32. Objective - Vital Signs Vital signs: Vital Signs Temp 97.7 F 08/20/24 07:15 Pulse 110 H 08/20/24 07:15 Resp 18 08/20/24 07:15 BP 90/68 08/20/24 07:15 Pulse Ox 94 L 08/20/24 07:15 FiO2 Intake & Output 08/19/24 08/20/24 08/20/24 18:59 06:59 18:59 Intake Total 650 Output Total 1325 850 Balance -675 -850 Intake: Intake, IV Titration 650 Amount DAPTOmycin 350 mg In 50 Sodium Chloride 0.9% 50 ml @ 100 mls/hr IVPB Q24HR@1200 JAN Rx#: [id number] Sodium Chloride 0.9% 1, 600 000 ml @ 75 mls/hr IV . [id number] JAN Rx#:[id number] Output: Urine 1325 850 Other: # Voids 1 # Bowel Movements 1 4 - Exam Physical examination: Vital signs reviewed General: non toxic, no distress, appears at stated age, normal weight Head: atraumatic, normocephalic, symmetric Cardiovascular: S1S2 reg, no murmur, Lungs: CTA bilateral, no rhonchi, no rales, no accessory muscle use Abdominal: soft, nontender to palpation, no guarding Ext: muscle strength 5 out of 5 in all 4 extremities grossly, no gross muscle atrophy, no contractures, positive dorsalis pedis pulse bilateral, no edema Neuro: CN II-XI grossly intact, no gross focal neuro deficits Psych: Alert, oriented, appropriate affect and mood - Labs CBC & Chem 7: 08/20/24 15:20 08/20/24 15:20 Labs: Abnormal Lab Results - Last 24 Hours (Table) 08/19/24 08/19/24 08/20/24 Range/Units 09:50 09:50 05:47 WBC (3.8-10.6) k/uL MCH (25.0-35.0) pg MCHC (31.0-37.0) g/dL RDW (11.5-15.5) % Neutrophils # (1.3-7.7) k/uL Lymphocytes # (1.0-4.8) k/uL ABG pH (7.35-7.45) ABG pCO2 (35-45) mmHg ABG HCO3 (21-25) mmol/L ABG Total CO2 (19-24) mmol/L Sodium 134 L (137-145) mmol/L Potassium 5.6 H (3.5-5.1) mmol/L Chloride 110 H (98-107) mmol/L Carbon Dioxide 18 L 6 L* (22-30) mmol/L BUN 61 H 53 H (7-17) mg/dL Creatinine 2.02 H 1.99 H (0.52-1.04) mg/dL Glucose 69 L (74-99) mg/dL POC Glucose (mg/dL) (70-110) mg/dL Calcium 8.2 L (8.4-10.2) mg/dL Total Bilirubin 2.0 H 2.4 H (0.2-1.3) mg/dL AST 1165 H (14-36) U/L ALT 639 H 693 H (4-34) U/L Alkaline Phosphatase 130 H (38-126) U/L Ammonia 63 H (<30) umol/L 08/20/24 08/20/24 08/20/24 Range/Units 06:41 08:09 08:43 WBC 16.3 H (3.8-10.6) k/uL MCH 24.7 L (25.0-35.0) pg MCHC 29.1 L (31.0-37.0) g/dL RDW 19.6 H (11.5-15.5) % Neutrophils # 14.6 H (1.3-7.7) k/uL Lymphocytes # 0.5 L (1.0-4.8) k/uL ABG pH 7.26 L (7.35-7.45) ABG pCO2 31 L (35-45) mmHg ABG HCO3 14 L (21-25) mmol/L ABG Total CO2 15 L (19-24) mmol/L Sodium (137-145) mmol/L Potassium (3.5-5.1) mmol/L Chloride (98-107) mmol/L Carbon Dioxide (22-30) mmol/L BUN (7-17) mg/dL Creatinine (0.52-1.04) mg/dL Glucose (74-99) mg/dL POC Glucose (mg/dL) 51 L (70-110) mg/dL Calcium (8.4-10.2) mg/dL Total Bilirubin (0.2-1.3) mg/dL AST (14-36) U/L ALT (4-34) U/L Alkaline Phosphatase (38-126) U/L Ammonia (<30) umol/L Microbiology - Last 24 Hours (Table) 08/16/24 16:32 Blood Culture - Preliminary Blood 08/17/24 14:13 Gram Stain - Preliminary Foot - Left Wound Culture - Preliminary Presumptive Staph aureus Assessment and Plan Assessment: 1. Non-oliguric YOLA ATN due to volume depletion and Lasix use. Baseline creatinine 0.8-1.0. Peaked 2.8, improved to 2.0 with IVF. Currently at 1.99. 2. Hyperkalemia due to YOLA. K now at 5.6 3. AGMA from lactic acidosis with non-anion gap metabolic acidosis from IVF with respiratory acidosis. 4. CKD stage IIIa 2/2 cardiorenal syndrome. Cr baseline 1-1.1 5. CHFrEF (15-20%). Cautiously replace fluids 6. Mild hypovolemic hyponatremia, improved 7. LLE cellulitis with DVT 8. Type 2 Diabetes Plan: Switch IVF to bicarb drip. Bicarb 2amp IVP now Check potassium in 2 hours On Daptomycin per ID Monitor CPK level while on daptomycin CXR in the AM Continue to hold diuretics. I have seen and examined the patient with resident. Agree with A&P as written. Switch to bicarb drip. Concern for severe sepsis/shock with high lactic acid - will discuss with primary team regarding transfer to ICU.
[2024-08-20] MEDS: SODIUM CHLORIDE 0.9% 1,000 ML IV ONE ×2 (13:55→17:00)
[2024-08-20 14:09] LABS: ABG Base Excess -14.6 mmol/L; ABG HCO3 13 mmol/L (21-25); ABG Oxygen Saturation 75.3 % (94-97); ABG PCO2 35 mmHg (35-45); ABG TCO2 14 mmol/L (19-24)
[2024-08-20 14:12] LABS: ABG PH 7.17 (7.35-7.45)
[2024-08-20 14:13] LABS: ABG PO2 50 mmHg (83-108); Allen Test Performed? no
[2024-08-20 14:44] LABS: ABG Base Excess -15.9 mmol/L; ABG HCO3 11 mmol/L (21-25); ABG PCO2 28 mmHg (35-45); ABG PO2 207 mmHg (83-108); ABG TCO2 12 mmol/L (19-24)
[2024-08-20] MEDS: NOREPINEPHRINE 4 MG in SODIUM CHLORIDE 0.9% 250 ML IV SCH (14:45)
[2024-08-20 14:46] LABS: ABG PH 7.19 (7.35-7.45)
--- NOTE | 2024-08-20 14:49 | XR ---
EXAMINATION TYPE: XR chest 1V DATE OF EXAM: 08/20/2024 COMPARISON: 08/17/2024 HISTORY: Line placement TECHNIQUE: Single frontal view of the chest is obtained. FINDINGS: There is cardiomegaly with right sided central line. Tip of catheter. Difficult to visuali ze due to technique and overlying artifact. Multilead cardiac device. Diffuse interstitial pattern. P ortions of the right lung not included. Suspect tiny left pleural effusion. No pneumothorax. Basilar atelectasis favored over pneumonia. IMPRESSION: 1. Limited exam with no definite sizable pneumothorax. Note is made the right costophrenic angles not included. Tip of the catheter is difficult to see due to overlying numerous cardiac leads but likely at the level of the cavoatrial junction. 2. Correlate for mild CHF or interstitial pneumonitis. [facility], , 08/20/2024 2:46 PM
[2024-08-20] MEDS ORDERED: IPRATROPIUM-ALBUTEROL 3 ML NEB INHALATION PRN (15:02)
[2024-08-20] MEDS ORDERED: Phosphorus Replacement Protoco 1 EACH MISC MISCELLANE PRN (15:02)
[2024-08-20] MEDS ORDERED: Magnesium Replacement Protocol 1 EACH MISC MISCELLANE PRN (15:02)
[2024-08-20] MEDS ORDERED: Potassium Replacement Protocol 1 EACH MISC MISCELLANE PRN (15:02)
--- NOTE | 2024-08-20 15:37 | P.PN ---
Subjective Progress Note Date: 08/20/24 DVT, cellulitis. Pulmonary consult dated August 17, 2024. 48-year-old female very poor historian, who apparently presented to the emergency department on August 16, at about 3:45 in the afternoon. The patient apparently came in complaining of bilateral lower extremity pain, and swelling. The patient denied any respiratory issues including shortness of breath, cough, wheezing, chest tightness, and phlegm production. The patient has a previous history of a right BKA, and a left trans metatarsal amputation. The patient had Dopplers done, and apparently on the right side, there was a DVT noted. She is currently on IV heparin. She does use home oxygen at 2 L. Here she is on 3 L. Her saturations are between 93 and 95%. In addition IV heparin she is getting saline at 20 cc an hour. I asked her about smoking, he apparently started smoking at the age of 11. She could not remember when she stopped smoking. She apparently has a history of diabetes, heart failure, COPD/asthma, CVA, DVT, hypertension, myocardial infarction, pneumonia, and seizure disorder. She has had previous infections, including ESBL, and VRE infections. Also, the patient has had a previous history of an AICD placement, and heart catheterization. Current labs include a white count of 12.8, hemoglobin 11.1, hematocrit 39.3, and a normal platelet count. The patient's PTT is 100.8. She had blood gases done twice. The first blood gas, showed a pO2 of 32, pCO2 of 49, pH of 7.24. I do not know that is believable. The second blood gas seems much more believable with a pO2 of 80, pCO2 of 44, pH of 7.25. Chest x-ray shows some very mild pulmonary vascular congestion, and some cardiomegaly. Progress note dated August 18, 2024. 48-year-old female that I saw yesterday in consultation. Please see my note above. The patient was admitted with a diagnosis of DVT, of the right lower extremity. The patient is seen today in room 474. She is lethargic like she was yesterday. She is on 3 L nasal cannula. Saturations are 98%. Her N- terminal proBNP was 21,900. Her procalcitonin level was elevated at 1.22. She remains on Rocephin and daptomycin as per infectious diseases. White count 10.8, hemoglobin 10.4, hematocrit 35.8, platelet count 244,000. Sodium 134, pot assium 5.5, chlorides 101, CO2 19, anion gap 14, BUN 58, creatinine 2.78. AST is 1556. ALT is 656. Urinalysis suggest the possibility of a urinary tract infection. Thus far, cultures are negative. Brain CT was negative. It did show an old lacunar infarct left thalamus. The perfusion study was nondiagnostic as expected, given the abnormality of the chest x-ray. Progress note dated August 19, 2024. 48-year-old female seen in consultation 2 days ago. The patient was admitted with a diagnosis of DVT, of the right lower extremity. In addition, she may have a urinary tract infection, as well as infection of the left foot. Currently, she is on 3 L of oxygen. She is getting saline at 75 cc an hour. She continues on Rocephin and daptomycin. She has been seen by infectious diseases. Current laboratory data includes a white count of 9.4, hemoglobin 10.6, hematocrit 35.8, and a platelet count of 236,000. Sodium 134, potassium 5, chlorides 103, CO2 18, BUN 61, creatinine 2.02. AST is 1165. ALT is 639. Wound culture, from the left foot, shows presumptive Staph aureus. 08/20/2024, I was asked to evaluate this patient on an emergent basis as the patient had significant decline in her condition over the past 24 hours. This is a 48-year-old female patient who came into the emergency department because of severe right lower extremity pain and recent fall from her wheelchair during transfers. She remains a very poor historian at the time of my evaluation, the patient was very lethargic and obtunded. 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 The patient had a low blood sugar. At the same time, the patient had become severely acidotic. Blood work from earlier this morning showed a lactic acid of 9.2, serum bicarb was at 6 with an anion gap of 22, BS was 63 with a creatinine of 1.99 and the potassium level was at 5.6. The patient was given D50 on the medical floor. I made recommendation to transfer the patient to immediately to the intensive care unit. The patient was clearly hypotensive. I was not able to accurately measure the blood pressure. In the ICU, the patient was started on norepinephrine and 0.1 mcg/kg/min. Same time, a central line was established and arterial line was also established. Urine output is minimal at this point. The most recent blood gas from the art line showed a pH of 7.19 with a pCO2 of 28 and pO2 of 207 and this was done on 100% nonrebreather facemask. The patient's white cell count is currently at 16.3 with a hemoglobin 11.8 and a platelet count of 263. The cultures from the left foot is showing Staph aureus and Prevotella and the patient is currently on IV Rocephin and daptomycin per ID recommendations. She is obtunded, lethargic, no significant agitation. Able to communicate upon stimulation. She has a DVT of the right lower extremity and the patient is on anticoagulation with Eliquis. The Doppler of the lower extremity on the left showed no evidence of any DVT. The clot on the right is believed to be in the mid/distal popliteal vein. She does have changes consistent with soft tissue infection/cellulitis of the lower extremities. Noted extremities were essentially cold and clammy and agreement with underlying sepsis/septic shock. Noted the patient also has severe ca rdiomyopathy. Echocardiogram that was done on 01/30/2024 showed left ventricular ejection fraction estimated to be around 15 to 20%. She also had moderate RV dilatation and severe pulm hypertension with an estimated PA pressure of around 61. There is also moderate degree of mitral regurgitation moderate to severe tricuspid regurgitation. Bourne catheter is in place. No focal neurological deficit at this point in time. Objective - Vital Signs Vital signs: Vital Signs Temp 97.7 F 08/20/24 07:15 Pulse 111 H 08/20/24 13:20 Resp 27 H 08/20/24 13:20 BP 103/66 08/20/24 13:20 Pulse Ox 80 L 08/20/24 13:20 FiO2 Intake & Output 08/19/24 08/20/24 08/20/24 18:59 06:59 18:59 Intake Total 650 Output Total 1325 850 Balance -675 -850 Intake: Intake, IV Titration 650 Amount DAPTOmycin 350 mg In 50 Sodium Chloride 0.9% 50 ml @ 100 mls/hr IVPB Q24HR@1200 [facility] Rx#: [id number] Sodium Chloride 0.9% 1, 600 000 ml @ 75 mls/hr IV . [id number] JAN Rx#:[id number] Output: Urine 1325 850 Other: Voiding Method Indwelling Catheter # Voids 1 # Bowel Movements 1 4 - Exam No acute distress, lethargic and sleepy, very poor historian. Patient is currently on 100% nonrebreather facemask, cyanotic lips and blue mucous membranes. No significant agitation. Remains quite lethargic. HEENT examination is grossly unremarkable. Mucous membranes are moist. No oral lesions. Neck supple. Full range of motion. No adenopathy thyromegaly or neck vein distention. Cardiovascular examination reveals regular rhythm rate. S1-S2 normal. No S3 or S4. No discernible murmur noted. Sounds are distant. Lungs reveal mostly clear breath sounds. Minimal rhonchi. No wheezes or crackles. The patient is not particularly cooperative, so examination was not particularly beneficial. Abdomen soft, and obese. Bowel sounds are noted. No mass. Extremities revealed a right below the knee amputation, and transmetatarsal amputation on the left. The patient has a deep wound along the plantar aspect of the transmetatarsal amputation left lower extremity. Right lower extremity has a below-knee amputation the extremity is quite swollen. There is evidence of cellulitis in both lower extremities. Skin is without rash or lesion. Wound in the left foot at the site of a previous transmetatarsal amputation was noted. No active drainage. Bone is exposed. Neurologic examination difficult to assess. No focal neurological deficit. Remains arousable. - Labs CBC & Chem 7: 08/20/24 08:09 08/20/24 05:47 Labs: Abnormal Lab Results - Last 24 Hours (Table) 08/20/24 08/20/24 08/20/24 Range/Units 05:47 06:41 08:09 WBC 16.3 H (3.8-10.6) k/uL MCH 24.7 L (25.0-35.0) pg MCHC 29.1 L (31.0-37.0) g/dL RDW 19.6 H (11.5-15.5) % Neutrophils # 14.6 H (1.3-7.7) k/uL Lymphocytes # 0.5 L (1.0-4.8) k/uL PT (10.0-12.5) sec INR (<1.2) ABG pH (7.35-7.45) ABG pCO2 (35-45) mmHg ABG pO2 (83-108) mmHg ABG HCO3 (21-25) mmol/L ABG Total CO2 (19-24) mmol/L ABG O2 Saturation (94-97) % Hemoglobin (11.4-16.0) gm/dL Potassium 5.6 H (3.5-5.1) mmol/L Chloride 110 H (98-107) mmol/L Carbon Dioxide 6 L* (22-30) mmol/L BUN 53 H (7-17) mg/dL Creatinine 1.99 H (0.52-1.04) mg/dL Glucose 69 L (74-99) mg/dL POC Glucose (mg/dL) 51 L (70-110) mg/dL Plasma Lactic Acid Warren (0.7-2.0) mmol/L Total Bilirubin 2.4 H (0.2-1.3) mg/dL ALT 693 H (4-34) U/L Alkaline Phosphatase 130 H (38-126) U/L 08/20/24 08/20/24 08/20/24 Range/Units 08:43 10:44 10:44 WBC (3.8-10.6) k/uL MCH (25.0-35.0) pg MCHC (31.0-37.0) g/dL RDW (11.5-15.5) % Neutrophils # (1.3-7.7) k/uL Lymphocytes # (1.0-4.8) k/uL PT 33.3 H (10.0-12.5) sec INR 3.4 H (<1.2) ABG pH 7.26 L (7.35-7.45) ABG pCO2 31 L (35-45) mmHg ABG pO2 (83-108) mmHg ABG HCO3 14 L (21-25) mmol/L ABG Total CO2 15 L (19-24) mmol/L ABG O2 Saturation (94-97) % Hemoglobin (11.4-16.0) gm/dL Potassium (3.5-5.1) mmol/L Chloride (98-107) mmol/L Carbon Dioxide (22-30) mmol/L BUN (7-17) mg/dL Creatinine (0.52-1.04) mg/dL Glucose (74-99) mg/dL POC Glucose (mg/dL) (70-110) mg/dL Plasma Lactic Acid Warren 9.2 H* (0.7-2.0) mmol/L Total Bilirubin (0.2-1.3) mg/dL ALT (4-34) U/L Alkaline Phosphatase (38-126) U/L 08/20/24 08/20/24 08/20/24 Range/Units 11:59 12:00 12:18 WBC (3.8-10.6) k/uL MCH (25.0-35.0) pg MCHC (31.0-37.0) g/dL RDW (11.5-15.5) % Neutrophils # (1.3-7.7) k/uL Lymphocytes # (1.0-4.8) k/uL PT (10.0-12.5) sec INR (<1.2) ABG pH (7.35-7.45) ABG pCO2 (35-45) mmHg ABG pO2 (83-108) mmHg ABG HCO3 (21-25) mmol/L ABG Total CO2 (19-24) mmol/L ABG O2 Saturation (94-97) % Hemoglobin (11.4-16.0) gm/dL Potassium (3.5-5.1) mmol/L Chloride (98-107) mmol/L Carbon Dioxide (22-30) mmol/L BUN (7-17) mg/dL Creatinine (0.52-1.04) mg/dL Glucose (74-99) mg/dL POC Glucose (mg/dL) 39 L* 36 L* 36 L* (70-110) mg/dL Plasma Lactic Acid Warren (0.7-2.0) mmol/L Total Bilirubin (0.2-1.3) mg/dL ALT (4-34) U/L Alkaline Phosphatase (38-126) U/L 08/20/24 08/20/24 08/20/24 Range/Units 12:40 13:20 14:08 WBC (3.8-10.6) k/uL MCH (25.0-35.0) pg MCHC (31.0-37.0) g/dL RDW (11.5-15.5) % Neutrophils # (1.3-7.7) k/uL Lymphocytes # (1.0-4.8) k/uL PT (10.0-12.5) sec INR (<1.2) ABG pH 7.17 L* (7.35-7.45) ABG pCO2 (35-45) mmHg ABG pO2 50 L* (83-108) mmHg ABG HCO3 13 L (21-25) mmol/L ABG Total CO2 14 L (19-24) mmol/L ABG O2 Saturation 75.3 L (94-97) % Hemoglobin 10.8 L (11.4-16.0) gm/dL Potassium (3.5-5.1) mmol/L Chloride (98-107) mmol/L Carbon Dioxide (22-30) mmol/L BUN (7-17) mg/dL Creatinine (0.52-1.04) mg/dL Glucose (74-99) mg/dL POC Glucose (mg/dL) 39 L* 126 H (70-110) mg/dL Plasma Lactic Acid Warren (0.7-2.0) mmol/L Total Bilirubin (0.2-1.3) mg/dL ALT (4-34) U/L Alkaline Phosphatase (38-126) U/L 08/20/24 Range/Units 14:42 WBC (3.8-10.6) k/uL MCH (25.0-35.0) pg MCHC (31.0-37.0) g/dL RDW (11.5-15.5) % Neutrophils # (1.3-7.7) k/uL Lymphocytes # (1.0-4.8) k/uL PT (10.0-12.5) sec INR (<1.2) ABG pH 7.19 L* (7.35-7.45) ABG pCO2 28 L (35-45) mmHg ABG pO2 207 H (83-108) mmHg ABG HCO3 11 L (21-25) mmol/L ABG Total CO2 12 L (19-24) mmol/L ABG O2 Saturation 100.0 H (94-97) % Hemoglobin 10.9 L (11.4-16.0) gm/dL Potassium (3.5-5.1) mmol/L Chloride (98-107) mmol/L Carbon Dioxide (22-30) mmol/L BUN (7-17) mg/dL Creatinine (0.52-1.04) mg/dL Glucose (74-99) mg/dL POC Glucose (mg/dL) (70-110) mg/dL Plasma Lactic Acid Warren (0.7-2.0) mmol/L Total Bilirubin (0.2-1.3) mg/dL ALT (4-34) U/L Alkaline Phosphatase (38-126) U/L Microbiology - Last 24 Hours (Table) 08/17/24 14:13 Anaerobic Culture - Preliminary Foot - Left Prevotella species 08/16/24 16:32 Blood Culture - Preliminary Blood Assessment and Plan Plan: septic shock, likely secondary to soft tissue infection/cellulitis in addition to a wound in the left foot at the site of a transmetatarsal amputation. The patient has a chronic stage IV ulcer that has no active drainage at this point in time. Cultures were noted and it is positive for Staph aureus and Prevotella. Acute lactic acidosis Severe anion gap metabolic acidosis Acute hyperkalemia Acute hypoglycemia, likely secondary to above Altered mentation secondary to above Cellulitis of the lower extremities bilaterally, currently on a combination of IV Rocephin and daptomycin Right lower extremity DVT, on Eliquis Severe cardiomyopathy with an ejection fraction of 10 to 15% Severe pulmonary hypertension, likely group 2/3 pulmonary hypertension with severe dilatation of the RV Severe peripheral vascular disease, Prior right below the knee amputation, and left transmetatarsal amputation. History of COPD/asthma. Diabetes mellitus, with ongoing episodes of hypoglycemia History of CVA. Coronary artery disease with prior history of myocardial infarction. History of hypertension. History of DVT. Obesity. Multiple drug-resistant infections. History of pacemaker implantation/defibrillator Plan: Patient was already transferred to the intensive care unit Blood gas was noted after establishing an arterial line and the patient will be gradually weaned off the FiO2. She does have a component of severe metabolic acidosis. She would likely need intubation mechanical ventilation. Will monitor progress over the next few hours and decide if intubation is needed. At this point in time, she is still able to protect her airways. Will try to avoid intubation if possible. The patient will be started on a bicarb infusion. The patient was given a liter of normal saline and the patient will be started on sodium bicarb infusion at rate of 100 cc an hour with a total of 150 mL equivalent of sodium bicarb. Monitor blood sugar Bourne catheter is inserted Central line has been inserted and will monitor the CVP Repeat all labs Will reflex the lactic acid level Continue Rocephin and vancomycin Repeat blood cultures Repeat electrolytes Continue anticoagulation with Eliquis, will switch this patient to IV heparin if she is unable to take the oral anticoagulation Critically ill female patient was a full CODE STATUS. This evaluation was done more than 30 minutes excluding time to do any procedures. This is working pr ogress.
--- NOTE | 2024-08-20 15:51 | P.PCN ---
Date of Procedure: 08/20/24 Preoperative Diagnosis: Septic shock Postoperative Diagnosis: Septic shock Procedure(s) Performed: Arterial line and a central line Anesthesia: local Surgeon: Kinsey Dawn Estimated Blood Loss (ml): 0 Condition: critical Disposition: ICU Operative Findings: Indication: Hemodynamic monitoring. A time-out was completed verifying correct patient, procedure, site, positioning, and implant(s) or special equipment if applicable. The patients right groin groin was prepped and draped in sterile fashion. 1% Lidocaine was used to anesthetize the area. An 18G Arrow arterial line was introduced into the right femoral artery. The catheter was threaded over the guide wire and the needle was removed with appropriate pulsatile blood return. Blood loss was minimal. The catheter was then sutured in place to the skin and a sterile dressing applied. Perfusion to the extremity distal to the point of catheter insertion was checked and found to be adequate. The patient tolerated the procedure well and there were no complications. Indication: Hemodynamic monitoring/Intravenous access. A time-out was completed verifying correct patient, procedure, site, positioning, and implant(s) or special equipment if applicable. The patient was placed in a dependent position appropriate for triple lumen catheter placement based on the vein to be cannulated. The patient's left internal jugular area was prepped and draped in sterile fashion. 1% Lidocaine was used to anesthetize the surrounding skin area. A triple lumen 9F Cordis catheter was introduced into the internal jugular vein using Seldinger technique. The catheter was threaded smoothly over the guide wire and appropriate blood return was obtained. Each lumen of the catheter was evacuated of air and flushed with sterile saline. The catheter was then sutured in place to the skin and a sterile dressing applied. Perfusion to the extremity distal to the point of catheter insertion was checked and found to be adequate.
[2024-08-20 15:54] LABS: African American GFR (CKD) 29 (>60 ml/min/1.73 sqM); Albumin 3.9 g/dL (3.5-5.0); Alkaline Phosphatase 118 U/L (38-126); Anion Gap 22 mmol/L; Blood Urea Nitrogen 52 mg/dL (7-17); Calcium 8.3 mg/dL (8.4-10.2); Carbon Dioxide 10 mmol/L (22-30); Chloride 103 mmol/L (98-107); Glucose 134 mg/dL (74-99); Magnesium 1.8 mg/dL (1.6-2.3); Non-African American GFR(CKD) 25 (>60 ml/min/1.73 sqM); Potassium 5.3 mmol/L (3.5-5.1); Sodium 135 mmol/L (137-145); Total Protein 7.6 g/dL (6.3-8.2)
[2024-08-20 15:57] LABS: Anisocytosis Slight; HGB 10.9 gm/dL (11.4-16.0); Hypochromasia Marked; MCH 23.5 pg (25.0-35.0); MCHC 27.9 g/dL (31.0-37.0); MCV 84.1 fL (80.0-100.0); Mean Platelet Volume 9.2; Platelet Count 290 k/uL (150-450); Poikilocytosis Moderate; RBC 4.64 m/uL (3.80-5.40); RDW 19.5 % (11.5-15.5); WBC 15.1 k/uL (3.8-10.6)
[2024-08-20 16:12] LABS: ALT 918 U/L (4-34)
[2024-08-20 16:20] LABS: AST 1670 U/L (14-36)
[2024-08-20 16:27] LABS: Lymphocytes # (M) 0.45 k/uL (1.0-4.8); Monocytes # (M) 1.36 k/uL (0-1.0); Neutrophils # (M) 13.29 k/uL (1.3-7.7); Neutrophils % (M) 88 %; Nucleated Red Blood Cells 0 /100 WBC (0-0); Total Cells Counted 100
[2024-08-20 16:28] LABS: Large Platelets Present; Polychromasia Present
[2024-08-20 16:29] LABS: Toxic Vacuolation Present
[2024-08-20 17:42] LABS: Glucose,Whole Blood 132 mg/dL (70-110)
[2024-08-20] MEDS: SODIUM ZIRCONIUM CYCLOSILICATE 10 GM PACKET PO ONE (17:45)
[2024-08-20 18:22] LABS: Appearance,Urine Turbid (Clear); Bacteria,Urine Occasional /hpf; Bilirubin,Urine 1+ (Negative); Blood,Urine Large (Negative); Color,Urine Dark Brown; Glucose,Urine (UA) Negative (Negative); Hyaline Casts,Urine 3 /lpf (0-2); Ketones,Urine Trace (Negative); Leukocyte Esterase,Urine Large (Negative); Mucus,Urine Occasional /hpf; Nitrite,Urine Negative (Negative); PH, Urine 5.5 (5.0-8.0); Protein,Urine 2+ (Negative); RBC,Urine 93 /hpf (0-5); Specific Gravity,Urine 1.026 (1.001-1.035); Squamous Epithelial Cell,Urine 1 /hpf (0-4); WBC,Urine >182 /hpf (0-5)
[2024-08-20] MEDS: IPRATROPIUM-ALBUTEROL 3 ML NEB INHALATION SCH (20:31)
[2024-08-20] MEDS: FUROSEMIDE 10 MG/ML 10 ML VIAL IV STA (20:57)
[2024-08-21] MEDS: HYDROcodone/APAP 5-325MG 1 EACH TAB PO PRN (00:41)
[2024-08-21 00:42] LABS: Glucose,Whole Blood 136 mg/dL (70-110)
[2024-08-21] MEDS: INSULIN ASPART (NovoLOG) 100 UNIT/ML VIAL SQ SCH (00:44)
[2024-08-21 05:06] LABS: Anisocytosis Slight; HCT 35.7 % (34.0-46.0); HGB 10.5 gm/dL (11.4-16.0); Hypochromasia Marked; MCH 24.3 pg (25.0-35.0); MCHC 29.5 g/dL (31.0-37.0); MCV 82.3 fL (80.0-100.0); Mean Platelet Volume 9.2; Microcytosis Slight; Platelet Count 252 k/uL (150-450); Poikilocytosis Moderate; RBC 4.34 m/uL (3.80-5.40); RDW 19.9 % (11.5-15.5)
[2024-08-21 05:19] LABS: African American GFR (CKD) 28 (>60 ml/min/1.73 sqM); Albumin 3.9 g/dL (3.5-5.0); Alkaline Phosphatase 120 U/L (38-126); Anion Gap 7 mmol/L; Blood Urea Nitrogen 56 mg/dL (7-17); Calcium 8.4 mg/dL (8.4-10.2); Carbon Dioxide 17 mmol/L (22-30); Chloride 102 mmol/L (98-107); Creatine Kinase 214 U/L (30-135); Glucose 129 mg/dL (74-99); Magnesium 1.8 mg/dL (1.6-2.3); Non-African American GFR(CKD) 24 (>60 ml/min/1.73 sqM); Phosphorus 4.7 mg/dL (2.5-4.5); Potassium 4.7 mmol/L (3.5-5.1); Sodium 126 mmol/L (137-145); Total Bilirubin 2.8 mg/dL (0.2-1.3); Total Protein 7.4 g/dL (6.3-8.2)
[2024-08-21 05:55] LABS: ALT 1144 U/L (4-34); AST 2378 U/L (14-36)
[2024-08-21 06:26] LABS: Glucose,Whole Blood 145 mg/dL (70-110)
[2024-08-21] MEDS: MAGNESIUM SULFATE-D5W PMX 1 GM in DEXTROSE/WATER 1 100ML.BAG IVPB ONE (06:33)
--- NOTE | 2024-08-21 07:35 | XR ---
EXAMINATION TYPE: XR chest 1V DATE OF EXAM: 08/21/2024 COMPARISON: 08/20/2024 HISTORY: Shortness of breath TECHNIQUE: Single frontal view of the chest is obtained. FINDINGS: There is cardiomegaly with right sided central line. Tip of catheter. Difficult to visuali ze due to technique and overlying artifact. Multilead cardiac device. Diffuse interstitial pattern. P ortions of the right lung not included. Suspect tiny left pleural effusion. No pneumothorax. Basilar atelectasis favored over pneumonia. IMPRESSION: Stable diffuse pulmonary changes correlate for CHF. Otherwise consider pneumonia [facility], , 08/21/2024 7:33 AM
[2024-08-21 08:47] LABS: Lymphocytes # (M) 1.05 k/uL (1.0-4.8); Monocytes # (M) 1.05 k/uL (0-1.0); Neutrophils # (M) 9.71 k/uL (1.3-7.7); Neutrophils % (M) 83 %; Nucleated Red Blood Cells 2 /100 WBC (0-0); Total Cells Counted 200; WBC 11.7 k/uL (3.8-10.6)
[2024-08-21 08:51] LABS: Anisocytosis (M) Present; Toxic Vacuolation Present
[2024-08-21] MEDS ORDERED: PANTOPRAZOLE 40 MG/10 ML VIAL IV SCH (09:00)
[2024-08-21 09:56] LABS: ABG Base Excess -4.5 mmol/L; ABG HCO3 21 mmol/L (21-25); ABG Oxygen Saturation 97.2 % (94-97); ABG PCO2 40 mmHg (35-45); ABG PH 7.34 (7.35-7.45); ABG PO2 90 mmHg (83-108); ABG TCO2 22 mmol/L (19-24)
[2024-08-21 10:11] LABS: Allen Test Performed? no
--- NOTE | 2024-08-21 10:14 | P.PN ---
Subjective Patient seen in follow-up for acute kidney injury. Transferred to the ICU yesterday. Currently off Levophed. Received IV fluid bolus yesterday and is currently maintained on bicarb drip. Creatinine 2.29 today. Vital signs are stable. General: No acute distress. HEENT: Head exam is unremarkable. On nasal cannula. LUNGS: No audible rhonchi or wheezes. HEART: Rate and Rhythm are regular. ABDOMEN: Obese, nontender. EXTREMITITES: Right BKA noted. Transmetatarsal amputation on the left noted. Erythema noted. Objective - Vital Signs Vital signs: Vital Signs Temp 98.9 F 08/21/24 04:00 Pulse 102 H 08/21/24 07:00 Resp 13 08/21/24 07:00 BP 118/72 08/21/24 06:00 Pulse Ox 97 08/21/24 07:00 FiO2 100 08/20/24 18:00 Intake & Output 08/20/24 08/21/24 08/21/24 18:59 06:59 18:59 Intake Total 2497.777 1221.169 580 Output Total 15 125 11 Balance 2482.777 1096.169 569 Weight 153 kg Intake: IV 2490 1200 100 Dextrose 5% in Water 1, 100 1200 100 000 ml @ 100 mls/hr IV . [id number] JAN with Sodium Bicarb (1 Meq/ml) 150 ml Rx#:[id number] Dextrose 5% in Water 1, 360 000 ml @ 80 mls/hr IV . [id number] JAN with Sodium Bicarb (1 Meq/ml) 150 ml Rx#:[id number] Invasive Line 2 10 Invasive Line 3 20 Sodium Chloride 0.9% 1, 1000 000 ml @ 999 mls/hr IV . Q1H1M ONE Rx#:[id number] Sodium Chloride 0.9% 1, 1000 000 ml @ 999 mls/hr IV . Q1H1M ONE Rx#:[id number] Intake, IV Titration 7.777 21.169 Amount Norepinephrine 4 mg In 7.777 21.169 Sodium Chloride 0.9% 250 ml @ 0.03 MCG/KG/MIN 15. 554 mls/hr IV .[id number] JAN Rx#:[id number] Oral 480 Output: Urine 15 125 11 Other: Voiding Method Indwelling Catheter External Catheter # Bowel Movements 0 1 ABP, PAP, CO, CI - Last Documented Arterial Blood Pressure 93/51 - Labs CBC & Chem 7: 08/21/24 04:42 08/21/24 04:42 Labs: Abnormal Lab Results - Last 24 Hours (Table) 08/20/24 08/20/24 08/20/24 Range/Units 10:44 10:44 11:59 WBC (3.8-10.6) k/uL Hgb (11.4-16.0) gm/dL MCH (25.0-35.0) pg MCHC (31.0-37.0) g/dL RDW (11.5-15.5) % Neutrophils # (Manual) (1.3-7.7) k/uL Lymphocytes # (Manual) (1.0-4.8) k/uL Monocytes # (Manual) (0-1.0) k/uL Nucleated RBCs (0-0) /100 WBC PT 33.3 H (10.0-12.5) sec INR 3.4 H (<1.2) ABG pH (7.35-7.45) ABG pCO2 (35-45) mmHg ABG pO2 (83-108) mmHg ABG HCO3 (21-25) mmol/L ABG Total CO2 (19-24) mmol/L ABG O2 Saturation (94-97) % ABG Lactic Acid (0.5-1.6) mmol/L Hemoglobin (11.4-16.0) gm/dL Sodium (137-145) mmol/L Potassium (3.5-5.1) mmol/L Carbon Dioxide (22-30) mmol/L BUN (7-17) mg/dL Creatinine (0.52-1.04) mg/dL Glucose (74-99) mg/dL POC Glucose (mg/dL) 39 L* (70-110) mg/dL Plasma Lactic Acid Warren 9.2 H* (0.7-2.0) mmol/L Calcium (8.4-10.2) mg/dL Phosphorus (2.5-4.5) mg/dL Total Bilirubin (0.2-1.3) mg/dL AST (14-36) U/L ALT (4-34) U/L Creatine Kinase (30-135) U/L Urine Appearance (Clear) Urine Protein (Negative) Urine Ketones (Negative) Urine Blood (Negative) Urine Bilirubin (Negative) Ur Leukocyte Esterase (Negative) Urine RBC (0-5) /hpf Urine WBC (0-5) /hpf Urine WBC Clumps (None) /hpf Urine Bacteria (None) /hpf Hyaline Casts (0-2) /lpf Urine Mucus (None) /hpf 08/20/24 08/20/24 08/20/24 Range/Units 12:00 12:18 12:40 WBC (3.8-10.6) k/uL Hgb (11.4-16.0) gm/dL MCH (25.0-35.0) pg MCHC (31.0-37.0) g/dL RDW (11.5-15.5) % Neutrophils # (Manual) (1.3-7.7) k/uL Lymphocytes # (Manual) (1.0-4.8) k/uL Monocytes # (Manual) (0-1.0) k/uL Nucleated RBCs (0-0) /100 WBC PT (10.0-12.5) sec INR (<1.2) ABG pH (7.35-7.45) ABG pCO2 (35-45) mmHg ABG pO2 (83-108) mmHg ABG HCO3 (21-25) mmol/L ABG Total CO2 (19-24) mmol/L ABG O2 Saturation (94-97) % ABG Lactic Acid (0.5-1.6) mmol/L Hemoglobin (11.4-16.0) gm/dL Sodium (137-145) mmol/L Potassium (3.5-5.1) mmol/L Carbon Dioxide (22-30) mmol/L BUN (7-17) mg/dL Creatinine (0.52-1.04) mg/dL Glucose (74-99) mg/dL POC Glucose (mg/dL) 36 L* 36 L* 39 L* (70-110) mg/dL Plasma Lactic Acid Warren (0.7-2.0) mmol/L Calcium (8.4-10.2) mg/dL Phosphorus (2.5-4.5) mg/dL Total Bilirubin (0.2-1.3) mg/dL AST (14-36) U/L ALT (4-34) U/L Creatine Kinase (30-135) U/L Urine Appearance (Clear) Urine Protein (Negative) Urine Ketones (Negative) Urine Blood (Negative) Urine Bilirubin (Negative) Ur Leukocyte Esterase (Negative) Urine RBC (0-5) /hpf Urine WBC (0-5) /hpf Urine WBC Clumps (None) /hpf Urine Bacteria (None) /hpf Hyaline Casts (0-2) /lpf Urine Mucus (None) /hpf 08/20/24 08/20/24 08/20/24 Range/Units 13:20 14:08 14:42 WBC (3.8-10.6) k/uL Hgb (11.4-16.0) gm/dL MCH (25.0-35.0) pg MCHC (31.0-37.0) g/dL RDW (11.5-15.5) % Neutrophils # (Manual) (1.3-7.7) k/uL Lymphocytes # (Manual) (1.0-4.8) k/uL Monocytes # (Manual) (0-1.0) k/uL Nucleated RBCs (0-0) /100 WBC PT (10.0-12.5) sec INR (<1.2) ABG pH 7.17 L* 7.19 L* (7.35-7.45) ABG pCO2 28 L (35-45) mmHg ABG pO2 50 L* 207 H (83-108) mmHg ABG HCO3 13 L 11 L (21-25) mmol/L ABG Total CO2 14 L 12 L (19-24) mmol/L ABG O2 Saturation 75.3 L 100.0 H (94-97) % ABG Lactic Acid (0.5-1.6) mmol/L Hemoglobin 10.8 L 10.9 L (11.4-16.0) gm/dL Sodium (137-145) mmol/L Potassium (3.5-5.1) mmol/L Carbon Dioxide (22-30) mmol/L BUN (7-17) mg/dL Creatinine (0.52-1.04) mg/dL Glucose (74-99) mg/dL POC Glucose (mg/dL) 126 H (70-110) mg/dL Plasma Lactic Acid Warren (0.7-2.0) mmol/L Calcium (8.4-10.2) mg/dL Phosphorus (2.5-4.5) mg/dL Total Bilirubin (0.2-1.3) mg/dL AST (14-36) U/L ALT (4-34) U/L Creatine Kinase (30-135) U/L Urine Appearance (Clear) Urine Protein (Negative) Urine Ketones (Negative) Urine Blood (Negative) Urine Bilirubin (Negative) Ur Leukocyte Esterase (Negative) Urine RBC (0-5) /hpf Urine WBC (0-5) /hpf Urine WBC Clumps (None) /hpf Urine Bacteria (None) /hpf Hyaline Casts (0-2) /lpf Urine Mucus (None) /hpf 08/20/24 08/20/24 08/20/24 Range/Units 15:20 15:20 15:20 WBC 15.1 H (3.8-10.6) k/uL Hgb 10.9 L (11.4-16.0) gm/dL MCH 23.5 L (25.0-35.0) pg MCHC 27.9 L (31.0-37.0) g/dL RDW 19.5 H (11.5-15.5) % Neutrophils # (Manual) 13.29 H (1.3-7.7) k/uL Lymphocytes # (Manual) 0.45 L (1.0-4.8) k/uL Monocytes # (Manual) 1.36 H (0-1.0) k/uL Nucleated RBCs (0-0) /100 WBC PT (10.0-12.5) sec INR (<1.2) ABG pH (7.35-7.45) ABG pCO2 (35-45) mmHg ABG pO2 (83-108) mmHg ABG HCO3 (21-25) mmol/L ABG Total CO2 (19-24) mmol/L ABG O2 Saturation (94-97) % ABG Lactic Acid 11.4 H* (0.5-1.6) mmol/L Hemoglobin (11.4-16.0) gm/dL Sodium 135 L (137-145) mmol/L Potassium 5.3 H (3.5-5.1) mmol/L Carbon Dioxide 10 L (22-30) mmol/L BUN 52 H (7-17) mg/dL Creatinine 2.24 H (0.52-1.04) mg/dL Glucose 134 H (74-99) mg/dL POC Glucose (mg/dL) (70-110) mg/dL Plasma Lactic Acid Warren (0.7-2.0) mmol/L Calcium 8.3 L (8.4-10.2) mg/dL Phosphorus (2.5-4.5) mg/dL Total Bilirubin 3.0 H (0.2-1.3) mg/dL AST 1670 H (14-36) U/L ALT 918 H (4-34) U/L Creatine Kinase (30-135) U/L Urine Appearance (Clear) Urine Protein (Negative) Urine Ketones (Negative) Urine Blood (Negative) Urine Bilirubin (Negative) Ur Leukocyte Esterase (Negative) Urine RBC (0-5) /hpf Urine WBC (0-5) /hpf Urine WBC Clumps (None) /hpf Urine Bacteria (None) /hpf Hyaline Casts (0-2) /lpf Urine Mucus (None) /hpf 08/20/24 08/20/24 08/20/24 Range/Units 17:41 18:00 18:42 WBC (3.8-10.6) k/uL Hgb (11.4-16.0) gm/dL MCH (25.0-35.0) pg MCHC (31.0-37.0) g/dL RDW (11.5-15.5) % Neutrophils # (Manual) (1.3-7.7) k/uL Lymphocytes # (Manual) (1.0-4.8) k/uL Monocytes # (Manual) (0-1.0) k/uL Nucleated RBCs (0-0) /100 WBC PT (10.0-12.5) sec INR (<1.2) ABG pH (7.35-7.45) ABG pCO2 (35-45) mmHg ABG pO2 (83-108) mmHg ABG HCO3 (21-25) mmol/L ABG Total CO2 (19-24) mmol/L ABG O2 Saturation (94-97) % ABG Lactic Acid 9.5 H* (0.5-1.6) mmol/L Hemoglobin (11.4-16.0) gm/dL Sodium (137-145) mmol/L Potassium (3.5-5.1) mmol/L Carbon Dioxide (22-30) mmol/L BUN (7-17) mg/dL Creatinine (0.52-1.04) mg/dL Glucose (74-99) mg/dL POC Glucose (mg/dL) 132 H (70-110) mg/dL Plasma Lactic Acid Warren (0.7-2.0) mmol/L Calcium (8.4-10.2) mg/dL Phosphorus (2.5-4.5) mg/dL Total Bilirubin (0.2-1.3) mg/dL AST (14-36) U/L ALT (4-34) U/L Creatine Kinase (30-135) U/L Urine Appearance Turbid H (Clear) Urine Protein 2+ H (Negative) Urine Ketones Trace H (Negative) Urine Blood Large H (Negative) Urine Bilirubin 1+ H (Negative) Ur Leukocyte Esterase Large H (Negative) Urine RBC 93 H (0-5) /hpf Urine WBC >182 H (0-5) /hpf Urine WBC Clumps Moderate H (None) /hpf Urine Bacteria Occasional H (None) /hpf Hyaline Casts 3 H (0-2) /lpf Urine Mucus Occasional H (None) /hpf 08/20/24 08/21/24 08/21/24 Range/Units 22:50 00:40 04:42 WBC 11.7 H (3.8-10.6) k/uL Hgb 10.5 L (11.4-16.0) gm/dL MCH 24.3 L (25.0-35.0) pg MCHC 29.5 L (31.0-37.0) g/dL RDW 19.9 H (11.5-15.5) % Neutrophils # (Manual) 9.71 H (1.3-7.7) k/uL Lymphocytes # (Manual) (1.0-4.8) k/uL Monocytes # (Manual) 1.05 H (0-1.0) k/uL Nucleated RBCs 2 H (0-0) /100 WBC PT (10.0-12.5) sec INR (<1.2) ABG pH (7.35-7.45) ABG pCO2 (35-45) mmHg ABG pO2 (83-108) mmHg ABG HCO3 (21-25) mmol/L ABG Total CO2 (19-24) mmol/L ABG O2 Saturation (94-97) % ABG Lactic Acid (0.5-1.6) mmol/L Hemoglobin (11.4-16.0) gm/dL Sodium (137-145) mmol/L Potassium (3.5-5.1) mmol/L Carbon Dioxide (22-30) mmol/L BUN (7-17) mg/dL Creatinine (0.52-1.04) mg/dL Glucose (74-99) mg/dL POC Glucose (mg/dL) 136 H (70-110) mg/dL Plasma Lactic Acid Warren 7.2 H* (0.7-2.0) mmol/L Calcium (8.4-10.2) mg/dL Phosphorus (2.5-4.5) mg/dL Total Bilirubin (0.2-1.3) mg/dL AST (14-36) U/L ALT (4-34) U/L Creatine Kinase (30-135) U/L Urine Appearance (Clear) Urine Protein (Negative) Urine Ketones (Negative) Urine Blood (Negative) Urine Bilirubin (Negative) Ur Leukocyte Esterase (Negative) Urine RBC (0-5) /hpf Urine WBC (0-5) /hpf Urine WBC Clumps (None) /hpf Urine Bacteria (None) /hpf Hyaline Casts (0-2) /lpf Urine Mucus (None) /hpf 08/21/24 08/21/24 08/21/24 Range/Units 04:42 06:25 08:27 WBC (3.8-10.6) k/uL Hgb (11.4-16.0) gm/dL MCH (25.0-35.0) pg MCHC (31.0-37.0) g/dL RDW (11.5-15.5) % Neutrophils # (Manual) (1.3-7.7) k/uL Lymphocytes # (Manual) (1.0-4.8) k/uL Monocytes # (Manual) (0-1.0) k/uL Nucleated RBCs (0-0) /100 WBC PT (10.0-12.5) sec INR (<1.2) ABG pH (7.35-7.45) ABG pCO2 (35-45) mmHg ABG pO2 (83-108) mmHg ABG HCO3 (21-25) mmol/L ABG Total CO2 (19-24) mmol/L ABG O2 Saturation (94-97) % ABG Lactic Acid 3.8 H* (0.5-1.6) mmol/L Hemoglobin (11.4-16.0) gm/dL Sodium 126 L (137-145) mmol/L Potassium (3.5-5.1) mmol/L Carbon Dioxide 17 L (22-30) mmol/L BUN 56 H (7-17) mg/dL Creatinine 2.29 H (0.52-1.04) mg/dL Glucose 129 H (74-99) mg/dL POC Glucose (mg/dL) 145 H (70-110) mg/dL Plasma Lactic Acid Warren (0.7-2.0) mmol/L Calcium (8.4-10.2) mg/dL Phosphorus 4.7 H (2.5-4.5) mg/dL Total Bilirubin 2.8 H (0.2-1.3) mg/dL AST 2378 H (14-36) U/L ALT 1144 H (4-34) U/L Creatine Kinase 214 H (30-135) U/L Urine Appearance (Clear) Urine Protein (Negative) Urine Ketones (Negative) Urine Blood (Negative) Urine Bilirubin (Negative) Ur Leukocyte Esterase (Negative) Urine RBC (0-5) /hpf Urine WBC (0-5) /hpf Urine WBC Clumps (None) /hpf Urine Bacteria (None) /hpf Hyaline Casts (0-2) /lpf Urine Mucus (None) /hpf Microbiology - Last 24 Hours (Table) 08/17/24 14:13 Gram Stain - Final Foot - Left Wound Culture - Final Staphylococcus aureus 08/17/24 14:13 Anaerobic Culture - Preliminary Foot - Left Prevotella species Assessment and Plan Assessment: 1. Acute kidney injury secondary to ATN secondary to septic shock. Baseline creatinine near 1. Creatinine 2.29 today. Urine output 10 to 15 cc an hour. No hydronephrosis noted on kidney ultrasound. Left kidney not visualized due to patient body habitus. 2. Hyperkalemia due to YOLA and acidosis. Improved. 3. AGMA from lactic acidosis with non-anion gap metabolic acidosis from IVF with respiratory acidosis. Improved. 4. CKD stage IIIa 2/2 cardiorenal syndrome. Cr baseline 1-1.1 5. CHFrEF (15-20%). 6. Hyponatremia secondary to acute kidney injury. 7. LLE cellulitis with DVT on antibiotics. Also on anticoagulation. 8. Type 2 Diabetes Plan: Maintain bicarb drip. Avoid nephrotoxins. Continue to monitor renal function and urine output. Continue to assess daily for need for renal placement therapy. Phosphorus level 4.7 dated August 21, 2024.
[2024-08-21] MEDS: PANTOPRAZOLE 40 MG/10 ML VIAL IV SCH (10:35)
[2024-08-21] MEDS: FUROSEMIDE 10 MG/ML 10 ML VIAL IV STA (10:40)
--- NOTE | 2024-08-21 13:05 | P.PN ---
Subjective Progress Note Date: 08/21/24 Patient is a 48-year-old female with a past medical history of right lower extremity DVT maintained on Eliquis, right BKA, and left TMA who presented to the emergency department with severe right lower extremity pain and recent falls from her wheelchair during transfers. She is a poor historian at the time of the interview. She is very lethargic and falls asleep while answering questionsAO x 2. She rarely opens her eyes without stimulus. During the interview she is noted to have increased respiratory effort, respiratory rate of 10-12, and small sluggish pupils. Narcan was administered and patient became more alert and respiratory rate improved to 16, AOx3, now able to complete full sentences but remains with eyes closed unless prompted to open. Now she states that she has been having bilateral lower extremity pain worse on the right with erythema and swelling of the right lower extremity. She reports compliance with her medications. She also reports some abdominal pain with a few episodes of vomitingappears nonbloody. She endorses pain in the right lower extremity. She denies chest pain, shortness of breath, current abdominal pain, nausea, vomiting. Femur x-ray unremarkable. Bilateral lower extremity venous Doppler showed positive right lower extremity DVT femoral vein to popliteal vein. EKG shows pacing by AICD. WBC 6.1, hemoglobin 10.1, platelets 179, PT 13.3, INR 1.3, sodium 136, potassium 4.6, CO2 20, creatinine 1.73, GFR 34, lactic acid 2.2, phosphorus 4.6, CRP 2.9, TSH 27.6. Afebrile, normotensive, tachycardic in the low 100s saturating well on room air. 08/18. Patient seen sleeping in bed. Still with eyes closed while conversing but will open them when prompted. States she's had no energy for days. Chest x-ray 08/17: Cardiomegaly and mild pulmonary vascular congestion. Brain CT 08/17: No acute intracranial process, old lacunar infarct left thalamus. Pulmonary perfusion scan 08/18: No mismatch defect is evident, intermediate probability for acute pulmonary embolism. WBCs 10.8, hemoglobin 10.4, sodium 134, potassium 5.5, creatinine 2.78, hemoglobin A1c 6.5, N-terminal proBNP 21.9, procalcitonin 1.22. 08/19. Patient seen and examined. Ultrasound abdomen done showed no evidence for acute abdominal process, hepatic steatosis. Ultrasound of kidneys done showed nonobstructing right renal calculus. Patient stated she feels better, still has pain in the right BKA stump. 08/20. Patient seen laying in bed. Preliminary wound culture shows presumptive Staph aureus. Patient appears to be struggling to find her words/Labs: WBCs 16.3, hemoglobin 11.8, potassium 5.6, creatinine 1.99, total bilirubin 2.4. ABG: pH 7.26, pCO2 31, pO2 84, HCO3 14. Patient with worsening prognosis, transfer to ICU. 08/21. Patient seen and examined. Blood work done this morning showed WBC 11.7, hematin 0.5, platelet count 252, sodium 126, potassium 4.7, BUN 53, creatinine 2.29 bilirubin 2.8, AST 2378, ALT 1144. Patient is lethargic, opening eyes, answers question appropriately Review of systems: ROS limited due to altered mental status. Pertinent positives and negatives as discussed in HPI. Physical examination: Vital signs are reviewed. General: No acute distress. Arousable, alert and oriented HEENT: Head exam is unremarkable. Lateral third of eyebrows thinning. EOMI bilaterally. ACs patent. Nares patent. Lungs: Bilateral breath sounds present; no rhonchi, wheezes, or rales. Heart: Rate and rhythm are regular. S1-S2 present. No murmur/rub/gallops. Abdomen: Soft, nontender, nondistended. Bowel sounds present. Extremities: Right BKA with erythema. Left TMA with ulcer on bottom now covered with gauze and LLE cellulitis and warmth. Psych: Normal affect and mood. Cooperative. Assessment/Plan: Sepsis, Septic shock Left lower extremity cellulitis Monitor vital sign Monitor CBC Monitor CMP Continue IV Rocephin and daptomycin Currently on Levophed Continue IV fluids ID following Critical care following Acute toxic metabolic encephalopathy secondary to medications Judicious use of pain medication Acute transaminitis Avoid hepatotoxic agents Monitor LFTs Continue lactulose Acute kidney injury Metabolic acidosis Hyperkalemia Monitor CPK while on daptomycin Strict I's and O's Daily weights Monitor renal function Continue IV fluids Avoid nephrotoxic agents Nephrology following Right lower extremity deep vein thrombosis Continue Eliquis Surgery consultedno surgical intervention at this time Heme/onc consulted-restarted Eliquis Acute hypoxemic respiratory failure Continue oxygen supplementation Aggressive bronchopulmonary hygiene Continue breathing treatments Critical care following Hypothyroidism Continue levothyroxine 50 mcg daily Diabetes mellitus type 2 Monitor glucose Insulin sliding scale DVT prophylaxis: Eliquis Chronic conditions: Recurrent DVTs, systolic CHF, chronic kidney disease stage IIIb, diabetes mellitus type 2, seizures, history of AICD placement, history of cardiac catheterizations Objective - Vital Signs Vital signs: Vital Signs Temp 98.9 F 08/21/24 04:00 Pulse 102 H 08/21/24 07:00 Resp 13 08/21/24 07:00 BP 118/72 08/21/24 06:00 Pulse Ox 97 08/21/24 07:00 FiO2 100 08/20/24 18:00 Intake & Output 08/20/24 08/21/24 08/21/24 18:59 06:59 18:59 Intake Total 2497.777 1221.169 580 Output Total 15 125 11 Balance 2482.777 1096.169 569 Weight 153 kg Intake: IV 2490 1200 100 Dextrose 5% in Water 1, 100 1200 100 000 ml @ 100 mls/hr IV . [id number] JAN with Sodium Bicarb (1 Meq/ml) 150 ml Rx#:[id number] Dextrose 5% in Water 1, 360 000 ml @ 80 mls/hr IV . [id number] JAN with Sodium Bicarb (1 Meq/ml) 150 ml Rx#:[id number] Invasive Line 2 10 Invasive Line 3 20 Sodium Chloride 0.9% 1, 1000 000 ml @ 999 mls/hr IV . Q1H1M ONE Rx#:[id number] Sodium Chloride 0.9% 1, 1000 000 ml @ 999 mls/hr IV . Q1H1M ONE Rx#:[id number] Intake, IV Titration 7.777 21.169 Amount Norepinephrine 4 mg In 7.777 21.169 Sodium Chloride 0.9% 250 ml @ 0.03 MCG/KG/MIN 15. 554 mls/hr IV .[id number] JAN Rx#:[id number] Oral 480 Output: Urine 15 125 11 Other: Voiding Method Indwelling Catheter External Catheter # Bowel Movements 0 1 ABP, PAP, CO, CI - Last Documented Arterial Blood Pressure 93/51 - Labs CBC & Chem 7: 08/21/24 04:42 08/21/24 04:42 Labs: Abnormal Lab Results - Last 24 Hours (Table) 08/20/24 08/20/24 08/20/24 Range/Units 10:44 10:44 11:59 WBC (3.8-10.6) k/uL Hgb (11.4-16.0) gm/dL MCH (25.0-35.0) pg MCHC (31.0-37.0) g/dL RDW (11.5-15.5) % Neutrophils # (Manual) (1.3-7.7) k/uL Lymphocytes # (Manual) (1.0-4.8) k/uL Monocytes # (Manual) (0-1.0) k/uL Nucleated RBCs (0-0) /100 WBC PT 33.3 H (10.0-12.5) sec INR 3.4 H (<1.2) ABG pH (7.35-7.45) ABG pCO2 (35-45) mmHg ABG pO2 (83-108) mmHg ABG HCO3 (21-25) mmol/L ABG Total CO2 (19-24) mmol/L ABG O2 Saturation (94-97) % ABG Lactic Acid (0.5-1.6) mmol/L Hemoglobin (11.4-16.0) gm/dL Sodium (137-145) mmol/L Potassium (3.5-5.1) mmol/L Carbon Dioxide (22-30) mmol/L BUN (7-17) mg/dL Creatinine (0.52-1.04) mg/dL Glucose (74-99) mg/dL POC Glucose (mg/dL) 39 L* (70-110) mg/dL Plasma Lactic Acid Warren 9.2 H* (0.7-2.0) mmol/L Calcium (8.4-10.2) mg/dL Phosphorus (2.5-4.5) mg/dL Total Bilirubin (0.2-1.3) mg/dL AST (14-36) U/L ALT (4-34) U/L Creatine Kinase (30-135) U/L Urine Appearance (Clear) Urine Protein (Negative) Urine Ketones (Negative) Urine Blood (Negative) Urine Bilirubin (Negative) Ur Leukocyte Esterase (Negative) Urine RBC (0-5) /hpf Urine WBC (0-5) /hpf Urine WBC Clumps (None) /hpf Urine Bacteria (None) /hpf Hyaline Casts (0-2) /lpf Urine Mucus (None) /hpf 08/20/24 08/20/24 08/20/24 Range/Units 12:00 12:18 12:40 WBC (3.8-10.6) k/uL Hgb (11.4-16.0) gm/dL MCH (25.0-35.0) pg MCHC (31.0-37.0) g/dL RDW (11.5-15.5) % Neutrophils # (Manual) (1.3-7.7) k/uL Lymphocytes # (Manual) (1.0-4.8) k/uL Monocytes # (Manual) (0-1.0) k/uL Nucleated RBCs (0-0) /100 WBC PT (10.0-12.5) sec INR (<1.2) ABG pH (7.35-7.45) ABG pCO2 (35-45) mmHg ABG pO2 (83-108) mmHg ABG HCO3 (21-25) mmol/L ABG Total CO2 (19-24) mmol/L ABG O2 Saturation (94-97) % ABG Lactic Acid (0.5-1.6) mmol/L Hemoglobin (11.4-16.0) gm/dL Sodium (137-145) mmol/L Potassium (3.5-5.1) mmol/L Carbon Dioxide (22-30) mmol/L BUN (7-17) mg/dL Creatinine (0.52-1.04) mg/dL Glucose (74-99) mg/dL POC Glucose (mg/dL) 36 L* 36 L* 39 L* (70-110) mg/dL Plasma Lactic Acid Warren (0.7-2.0) mmol/L Calcium (8.4-10.2) mg/dL Phosphorus (2.5-4.5) mg/dL Total Bilirubin (0.2-1.3) mg/dL AST (14-36) U/L ALT (4-34) U/L Creatine Kinase (30-135) U/L Urine Appearance (Clear) Urine Protein (Negative) Urine Ketones (Negative) Urine Blood (Negative) Urine Bilirubin (Negative) Ur Leukocyte Esterase (Negative) Urine RBC (0-5) /hpf Urine WBC (0-5) /hpf Urine WBC Clumps (None) /hpf Urine Bacteria (None) /hpf Hyaline Casts (0-2) /lpf Urine Mucus (None) /hpf 08/20/24 08/20/24 08/20/24 Range/Units 13:20 14:08 14:42 WBC (3.8-10.6) k/uL Hgb (11.4-16.0) gm/dL MCH (25.0-35.0) pg MCHC (31.0-37.0) g/dL RDW (11.5-15.5) % Neutrophils # (Manual) (1.3-7.7) k/uL Lymphocytes # (Manual) (1.0-4.8) k/uL Monocytes # (Manual) (0-1.0) k/uL Nucleated RBCs (0-0) /100 WBC PT (10.0-12.5) sec INR (<1.2) ABG pH 7.17 L* 7.19 L* (7.35-7.45) ABG pCO2 28 L (35-45) mmHg ABG pO2 50 L* 207 H (83-108) mmHg ABG HCO3 13 L 11 L (21-25) mmol/L ABG Total CO2 14 L 12 L (19-24) mmol/L ABG O2 Saturation 75.3 L 100.0 H (94-97) % ABG Lactic Acid (0.5-1.6) mmol/L Hemoglobin 10.8 L 10.9 L (11.4-16.0) gm/dL Sodium (137-145) mmol/L Potassium (3.5-5.1) mmol/L Carbon Dioxide (22-30) mmol/L BUN (7-17) mg/dL Creatinine (0.52-1.04) mg/dL Glucose (74-99) mg/dL POC Glucose (mg/dL) 126 H (70-110) mg/dL Plasma Lactic Acid Warren (0.7-2.0) mmol/L Calcium (8.4-10.2) mg/dL Phosphorus (2.5-4.5) mg/dL Total Bilirubin (0.2-1.3) mg/dL AST (14-36) U/L ALT (4-34) U/L Creatine Kinase (30-135) U/L Urine Appearance (Clear) Urine Protein (Negative) Urine Ketones (Negative) Urine Blood (Negative) Urine Bilirubin (Negative) Ur Leukocyte Esterase (Negative) Urine RBC (0-5) /hpf Urine WBC (0-5) /hpf Urine WBC Clumps (None) /hpf Urine Bacteria (None) /hpf Hyaline Casts (0-2) /lpf Urine Mucus (None) /hpf 08/20/24 08/20/24 08/20/24 Range/Units 15:20 15:20 15:20 WBC 15.1 H (3.8-10.6) k/uL Hgb 10.9 L (11.4-16.0) gm/dL MCH 23.5 L (25.0-35.0) pg MCHC 27.9 L (31.0-37.0) g/dL RDW 19.5 H (11.5-15.5) % Neutrophils # (Manual) 13.29 H (1.3-7.7) k/uL Lymphocytes # (Manual) 0.45 L (1.0-4.8) k/uL Monocytes # (Manual) 1.36 H (0-1.0) k/uL Nucleated RBCs (0-0) /100 WBC PT (10.0-12.5) sec INR (<1.2) ABG pH (7.35-7.45) ABG pCO2 (35-45) mmHg ABG pO2 (83-108) mmHg ABG HCO3 (21-25) mmol/L ABG Total CO2 (19-24) mmol/L ABG O2 Saturation (94-97) % ABG Lactic Acid 11.4 H* (0.5-1.6) mmol/L Hemoglobin (11.4-16.0) gm/dL Sodium 135 L (137-145) mmol/L Potassium 5.3 H (3.5-5.1) mmol/L Carbon Dioxide 10 L (22-30) mmol/L BUN 52 H (7-17) mg/dL Creatinine 2.24 H (0.52-1.04) mg/dL Glucose 134 H (74-99) mg/dL POC Glucose (mg/dL) (70-110) mg/dL Plasma Lactic Acid Warren (0.7-2.0) mmol/L Calcium 8.3 L (8.4-10.2) mg/dL Phosphorus (2.5-4.5) mg/dL Total Bilirubin 3.0 H (0.2-1.3) mg/dL AST 1670 H (14-36) U/L ALT 918 H (4-34) U/L Creatine Kinase (30-135) U/L Urine Appearance (Clear) Urine Protein (Negative) Urine Ketones (Negative) Urine Blood (Negative) Urine Bilirubin (Negative) Ur Leukocyte Esterase (Negative) Urine RBC (0-5) /hpf Urine WBC (0-5) /hpf Urine WBC Clumps (None) /hpf Urine Bacteria (None) /hpf Hyaline Casts (0-2) /lpf Urine Mucus (None) /hpf 08/20/24 08/20/24 08/20/24 Range/Units 17:41 18:00 18:42 WBC (3.8-10.6) k/uL Hgb (11.4-16.0) gm/dL MCH (25.0-35.0) pg MCHC (31.0-37.0) g/dL RDW (11.5-15.5) % Neutrophils # (Manual) (1.3-7.7) k/uL Lymphocytes # (Manual) (1.0-4.8) k/uL Monocytes # (Manual) (0-1.0) k/uL Nucleated RBCs (0-0) /100 WBC PT (10.0-12.5) sec INR (<1.2) ABG pH (7.35-7.45) ABG pCO2 (35-45) mmHg ABG pO2 (83-108) mmHg ABG HCO3 (21-25) mmol/L ABG Total CO2 (19-24) mmol/L ABG O2 Saturation (94-97) % ABG Lactic Acid 9.5 H* (0.5-1.6) mmol/L Hemoglobin (11.4-16.0) gm/dL Sodium (137-145) mmol/L Potassium (3.5-5.1) mmol/L Carbon Dioxide (22-30) mmol/L BUN (7-17) mg/dL Creatinine (0.52-1.04) mg/dL Glucose (74-99) mg/dL POC Glucose (mg/dL) 132 H (70-110) mg/dL Plasma Lactic Acid Warren (0.7-2.0) mmol/L Calcium (8.4-10.2) mg/dL Phosphorus (2.5-4.5) mg/dL Total Bilirubin (0.2-1.3) mg/dL AST (14-36) U/L ALT (4-34) U/L Creatine Kinase (30-135) U/L Urine Appearance Turbid H (Clear) Urine Protein 2+ H (Negative) Urine Ketones Trace H (Negative) Urine Blood Large H (Negative) Urine Bilirubin 1+ H (Negative) Ur Leukocyte Esterase Large H (Negative) Urine RBC 93 H (0-5) /hpf Urine WBC >182 H (0-5) /hpf Urine WBC Clumps Moderate H (None) /hpf Urine Bacteria Occasional H (None) /hpf Hyaline Casts 3 H (0-2) /lpf Urine Mucus Occasional H (None) /hpf 08/20/24 08/21/24 08/21/24 Range/Units 22:50 00:40 04:42 WBC 11.7 H (3.8-10.6) k/uL Hgb 10.5 L (11.4-16.0) gm/dL MCH 24.3 L (25.0-35.0) pg MCHC 29.5 L (31.0-37.0) g/dL RDW 19.9 H (11.5-15.5) % Neutrophils # (Manual) 9.71 H (1.3-7.7) k/uL Lymphocytes # (Manual) (1.0-4.8) k/uL Monocytes # (Manual) 1.05 H (0-1.0) k/uL Nucleated RBCs 2 H (0-0) /100 WBC PT (10.0-12.5) sec INR (<1.2) ABG pH (7.35-7.45) ABG pCO2 (35-45) mmHg ABG pO2 (83-108) mmHg ABG HCO3 (21-25) mmol/L ABG Total CO2 (19-24) mmol/L ABG O2 Saturation (94-97) % ABG Lactic Acid (0.5-1.6) mmol/L Hemoglobin (11.4-16.0) gm/dL Sodium (137-145) mmol/L Potassium (3.5-5.1) mmol/L Carbon Dioxide (22-30) mmol/L BUN (7-17) mg/dL Creatinine (0.52-1.04) mg/dL Glucose (74-99) mg/dL POC Glucose (mg/dL) 136 H (70-110) mg/dL Plasma Lactic Acid Warren 7.2 H* (0.7-2.0) mmol/L Calcium (8.4-10.2) mg/dL Phosphorus (2.5-4.5) mg/dL Total Bilirubin (0.2-1.3) mg/dL AST (14-36) U/L ALT (4-34) U/L Creatine Kinase (30-135) U/L Urine Appearance (Clear) Urine Protein (Negative) Urine Ketones (Negative) Urine Blood (Negative) Urine Bilirubin (Negative) Ur Leukocyte Esterase (Negative) Urine RBC (0-5) /hpf Urine WBC (0-5) /hpf Urine WBC Clumps (None) /hpf Urine Bacteria (None) /hpf Hyaline Casts (0-2) /lpf Urine Mucus (None) /hpf 08/21/24 08/21/24 08/21/24 Range/Units 04:42 06:25 08:27 WBC (3.8-10.6) k/uL Hgb (11.4-16.0) gm/dL MCH (25.0-35.0) pg MCHC (31.0-37.0) g/dL RDW (11.5-15.5) % Neutrophils # (Manual) (1.3-7.7) k/uL Lymphocytes # (Manual) (1.0-4.8) k/uL Monocytes # (Manual) (0-1.0) k/uL Nucleated RBCs (0-0) /100 WBC PT (10.0-12.5) sec INR (<1.2) ABG pH (7.35-7.45) ABG pCO2 (35-45) mmHg ABG pO2 (83-108) mmHg ABG HCO3 (21-25) mmol/L ABG Total CO2 (19-24) mmol/L ABG O2 Saturation (94-97) % ABG Lactic Acid 3.8 H* (0.5-1.6) mmol/L Hemoglobin (11.4-16.0) gm/dL Sodium 126 L (137-145) mmol/L Potassium (3.5-5.1) mmol/L Carbon Dioxide 17 L (22-30) mmol/L BUN 56 H (7-17) mg/dL Creatinine 2.29 H (0.52-1.04) mg/dL Glucose 129 H (74-99) mg/dL POC Glucose (mg/dL) 145 H (70-110) mg/dL Plasma Lactic Acid Warren (0.7-2.0) mmol/L Calcium (8.4-10.2) mg/dL Phosphorus 4.7 H (2.5-4.5) mg/dL Total Bilirubin 2.8 H (0.2-1.3) mg/dL AST 2378 H (14-36) U/L ALT 1144 H (4-34) U/L Creatine Kinase 214 H (30-135) U/L Urine Appearance (Clear) Urine Protein (Negative) Urine Ketones (Negative) Urine Blood (Negative) Urine Bilirubin (Negative) Ur Leukocyte Esterase (Negative) Urine RBC (0-5) /hpf Urine WBC (0-5) /hpf Urine WBC Clumps (None) /hpf Urine Bacteria (None) /hpf Hyaline Casts (0-2) /lpf Urine Mucus (None) /hpf Microbiology - Last 24 Hours (Table) 08/17/24 14:13 Gram Stain - Final Foot - Left Wound Culture - Final Staphylococcus aureus 08/17/24 14:13 Anaerobic Culture - Preliminary Foot - Left Prevotella species
--- NOTE | 2024-08-21 13:07 | P.GSCN ---
History of Present Illness Consult date: 08/21/24 Reason for Consult: Left lower extremity cool to touch, left foot wound Requesting physician: Kinsey Dawn History of present illness: This is a pleasant 48-year-old female with multiple comorbidities who states she presented to the hospital due to bilateral lower extremity pain and swelling. 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 She initially came to the emergency department on 08/16/2024 and was diagnosed with a right lower extremity femoropopliteal deep vein thrombosis and vascular surgery was consulted however there was no surgical intervention indicated. At that time she was started on a heparin drip, she had previously been on Eliquis and stated that she was compliant therefore hematology was consulted for further recommendations on anticoagulation. She is currently on Eliquis 5 mg twice daily as apparently patient was not taking her Eliquis as directed.. During her hospital stay apparently patient reportedly became septic, decline in her condition and required higher level of care was transferred to the ICU yesterday and started on Levophed which was just disconti nued this morning. Nursing reports that this morning they noted her left foot was cooler. She was diagnosed with a cellulitis and nursing reports they believe sepsis is read related to right lower extremity cellulitis. Patient keeps drifting off to sleep but states she does have some pain in her left lower extremity. Unclear how long she has had the wound to the bottom of her left foot. However has been treated by infectious disease with local wound care. She has been afebrile. Review of Systems A 14 point review systems was completed all pertinent positives and negatives as stated in the HPI. Past Medical History Past Medical History: Asthma, Heart Failure, COPD, CVA/TIA, Diabetes Mellitus, Deep Vein Thrombosis (DVT), Hypertension, Myocardial Infarction (HI), Pneumonia, Seizure Disorder, Seizure Disorder Additional Past Medical History / Comment(s): uses a wheelchair. Patient states last seizure summer 2019 while she was at [facility]. 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 has pacemaker defibrillator, right all toe amputated 04/2016, R BKA 2019, LT GREAT TOE then left foot partial amputation, cardiac cath 2022 Past Anesthesia/Blood Transfusion Reactions: Postoperative Nausea & Vomiting (PONV) Type of Cardiac Device: Biventricular Pacemaker, Permanent Pacemaker, AICD Device Placement Date:: 2011 Past Psychological History: Bipolar Additional Psychological History / Comment(s): She is wheelchair bound/transfers self. She has a glucometer and nebulizer. Smoking Status: Never smoker Past Alcohol Use History: None Reported Additional Past Alcohol Use History / Comment(s): quit 2017 Past Drug Use History: Marijuana Additional Drug Use History / Comment(s): Pt smokes marijuana at HS for a sleep aide or for pain control - Past Family History Mother Family Medical History: Unable to Obtain, Deep Vein Thrombosis (DVT) Additional Family Medical History / Comment(s): Some type of heart problems, kidney failure. Father History Unknown: Yes Family Medical History: Unable to Obtain Additional Family Medical History / Comment(s): Patient denies knowing any medical history on her father. Medications and Allergies Home Medications Medication Instructions Recorded Confirmed Type Insulin Glargine [Lantus Vial] 40 unit SQ HS 04/30/19 08/16/24 History Pantoprazole [Protonix] 40 mg PO DAILY 01/29/24 08/16/24 History Apixaban [Eliquis] 5 mg PO BID 04/19/24 08/16/24 History Bumetanide [BUMEX] 2 mg PO DAILY 04/19/24 08/16/24 History Sacubitril/Valsartan [Entresto 49 1 tab PO BID 04/19/24 08/16/24 History mg-51 mg Tablet] ALPRAZolam [Xanax] 0.5 mg PO BID 08/16/24 08/16/24 History Gabapentin 600 mg PO TID 08/16/24 08/16/24 History Ipratropium-Albuterol Nebulize 3 ml INHALATION RT-TID PRN 08/16/24 08/16/24 History [Duoneb 0.5 mg-3 mg/3 ml Soln] Lacosamide [Vimpat] 50 mg PO BID 08/16/24 08/16/24 History Allergies Allergy/AdvReac Type Severity Reaction Status Date / Time Penicillins Allergy Rash/Hives Verified 08/16/24 17:58 vancomycin Allergy Rash/Hives Verified 08/16/24 17:58 ondansetron [From Zofran] AdvReac Nausea & Verified 08/16/24 17:58 Vomiting Surgical - Exam Vital Signs Temp Pulse Resp BP Pulse Ox 98.3 F 100 20 106/75 98 08/16/24 15:45 08/16/24 15:45 08/16/24 15:45 08/16/24 15:45 08/16/24 15:45 General appearance: The patient is lethargic, obtunded. HET: Head is normocephalic and atraumatic. Pupils are equal and reactive. Neck: Supple. Heart: Regular. Lungs: Equal expansion, normal respiratory effort. Abdomen: Soft, nontender, nondistended. Extremities: Right previous BKA well-healed with swelling and erythema. Left previous TMA well-healed. Foot cool to touch, with blanching. Sensorimotor intact. Wound to plantar aspect of foot, not infected appearing with no surrounding redness, no drainage noted. Neurological: Patient is extremely lethargic dozing in and out of sleep. Results - Labs 08/21/24 04:42 08/21/24 04:42 Abnormal Lab Results - Last 24 Hours (Table) 08/20/24 08/20/24 08/20/24 Range/Units 12:18 12:40 13:20 WBC (3.8-10.6) k/uL Hgb (11.4-16.0) gm/dL MCH (25.0-35.0) pg MCHC (31.0-37.0) g/dL RDW (11.5-15.5) % Neutrophils # (Manual) (1.3-7.7) k/uL Lymphocytes # (Manual) (1.0-4.8) k/uL Monocytes # (Manual) (0-1.0) k/uL Nucleated RBCs (0-0) /100 WBC ABG pH (7.35-7.45) ABG pCO2 (35-45) mmHg ABG pO2 (83-108) mmHg ABG HCO3 (21-25) mmol/L ABG Total CO2 (19-24) mmol/L ABG O2 Saturation (94-97) % ABG Lactic Acid (0.5-1.6) mmol/L Hemoglobin (11.4-16.0) gm/dL Sodium (137-145) mmol/L Potassium (3.5-5.1) mmol/L Carbon Dioxide (22-30) mmol/L BUN (7-17) mg/dL Creatinine (0.52-1.04) mg/dL Glucose (74-99) mg/dL POC Glucose (mg/dL) 36 L* 39 L* 126 H (70-110) mg/dL Plasma Lactic Acid Warren (0.7-2.0) mmol/L Calcium (8.4-10.2) mg/dL Phosphorus (2.5-4.5) mg/dL Total Bilirubin (0.2-1.3) mg/dL AST (14-36) U/L ALT (4-34) U/L Creatine Kinase (30-135) U/L Urine Appearance (Clear) Urine Protein (Negative) Urine Ketones (Negative) Urine Blood (Negative) Urine Bilirubin (Negative) Ur Leukocyte Esterase (Negative) Urine RBC (0-5) /hpf Urine WBC (0-5) /hpf Urine WBC Clumps (None) /hpf Urine Bacteria (None) /hpf Hyaline Casts (0-2) /lpf Urine Mucus (None) /hpf 08/20/24 08/20/24 08/20/24 Range/Units 14:08 14:42 15:20 WBC (3.8-10.6) k/uL Hgb (11.4-16.0) gm/dL MCH (25.0-35.0) pg MCHC (31.0-37.0) g/dL RDW (11.5-15.5) % Neutrophils # (Manual) (1.3-7.7) k/uL Lymphocytes # (Manual) (1.0-4.8) k/uL Monocytes # (Manual) (0-1.0) k/uL Nucleated RBCs (0-0) /100 WBC ABG pH 7.17 L* 7.19 L* (7.35-7.45) ABG pCO2 28 L (35-45) mmHg ABG pO2 50 L* 207 H (83-108) mmHg ABG HCO3 13 L 11 L (21-25) mmol/L ABG Total CO2 14 L 12 L (19-24) mmol/L ABG O2 Saturation 75.3 L 100.0 H (94-97) % ABG Lactic Acid (0.5-1.6) mmol/L Hemoglobin 10.8 L 10.9 L (11.4-16.0) gm/dL Sodium 135 L (137-145) mmol/L Potassium 5.3 H (3.5-5.1) mmol/L Carbon Dioxide 10 L (22-30) mmol/L BUN 52 H (7-17) mg/dL Creatinine 2.24 H (0.52-1.04) mg/dL Glucose 134 H (74-99) mg/dL POC Glucose (mg/dL) (70-110) mg/dL Plasma Lactic Acid Warren (0.7-2.0) mmol/L Calcium 8.3 L (8.4-10.2) mg/dL Phosphorus (2.5-4.5) mg/dL Total Bilirubin 3.0 H (0.2-1.3) mg/dL AST 1670 H (14-36) U/L ALT 918 H (4-34) U/L Creatine Kinase (30-135) U/L Urine Appearance (Clear) Urine Protein (Negative) Urine Ketones (Negative) Urine Blood (Negative) Urine Bilirubin (Negative) Ur Leukocyte Esterase (Negative) Urine RBC (0-5) /hpf Urine WBC (0-5) /hpf Urine WBC Clumps (None) /hpf Urine Bacteria (None) /hpf Hyaline Casts (0-2) /lpf Urine Mucus (None) /hpf 08/20/24 08/20/24 08/20/24 Range/Units 15:20 15:20 17:41 WBC 15.1 H (3.8-10.6) k/uL Hgb 10.9 L (11.4-16.0) gm/dL MCH 23.5 L (25.0-35.0) pg MCHC 27.9 L (31.0-37.0) g/dL RDW 19.5 H (11.5-15.5) % Neutrophils # (Manual) 13.29 H (1.3-7.7) k/uL Lymphocytes # (Manual) 0.45 L (1.0-4.8) k/uL Monocytes # (Manual) 1.36 H (0-1.0) k/uL Nucleated RBCs (0-0) /100 WBC ABG pH (7.35-7.45) ABG pCO2 (35-45) mmHg ABG pO2 (83-108) mmHg ABG HCO3 (21-25) mmol/L ABG Total CO2 (19-24) mmol/L ABG O2 Saturation (94-97) % ABG Lactic Acid 11.4 H* (0.5-1.6) mmol/L Hemoglobin (11.4-16.0) gm/dL Sodium (137-145) mmol/L Potassium (3.5-5.1) mmol/L Carbon Dioxide (22-30) mmol/L BUN (7-17) mg/dL Creatinine (0.52-1.04) mg/dL Glucose (74-99) mg/dL POC Glucose (mg/dL) 132 H (70-110) mg/dL Plasma Lactic Acid Warren (0.7-2.0) mmol/L Calcium (8.4-10.2) mg/dL Phosphorus (2.5-4.5) mg/dL Total Bilirubin (0.2-1.3) mg/dL AST (14-36) U/L ALT (4-34) U/L Creatine Kinase (30-135) U/L Urine Appearance (Clear) Urine Protein (Negative) Urine Ketones (Negative) Urine Blood (Negative) Urine Bilirubin (Negative) Ur Leukocyte Esterase (Negative) Urine RBC (0-5) /hpf Urine WBC (0-5) /hpf Urine WBC Clumps (None) /hpf Urine Bacteria (None) /hpf Hyaline Casts (0-2) /lpf Urine Mucus (None) /hpf 08/20/24 08/20/24 08/20/24 Range/Units 18:00 18:42 22:50 WBC (3.8-10.6) k/uL Hgb (11.4-16.0) gm/dL MCH (25.0-35.0) pg MCHC (31.0-37.0) g/dL RDW (11.5-15.5) % Neutrophils # (Manual) (1.3-7.7) k/uL Lymphocytes # (Manual) (1.0-4.8) k/uL Monocytes # (Manual) (0-1.0) k/uL Nucleated RBCs (0-0) /100 WBC ABG pH (7.35-7.45) ABG pCO2 (35-45) mmHg ABG pO2 (83-108) mmHg ABG HCO3 (21-25) mmol/L ABG Total CO2 (19-24) mmol/L ABG O2 Saturation (94-97) % ABG Lactic Acid 9.5 H* (0.5-1.6) mmol/L Hemoglobin (11.4-16.0) gm/dL Sodium (137-145) mmol/L Potassium (3.5-5.1) mmol/L Carbon Dioxide (22-30) mmol/L BUN (7-17) mg/dL Creatinine (0.52-1.04) mg/dL Glucose (74-99) mg/dL POC Glucose (mg/dL) (70-110) mg/dL Plasma Lactic Acid Warren 7.2 H* (0.7-2.0) mmol/L Calcium (8.4-10.2) mg/dL Phosphorus (2.5-4.5) mg/dL Total Bilirubin (0.2-1.3) mg/dL AST (14-36) U/L ALT (4-34) U/L Creatine Kinase (30-135) U/L Urine Appearance Turbid H (Clear) Urine Protein 2+ H (Negative) Urine Ketones Trace H (Negative) Urine Blood Large H (Negative) Urine Bilirubin 1+ H (Negative) Ur Leukocyte Esterase Large H (Negative) Urine RBC 93 H (0-5) /hpf Urine WBC >182 H (0-5) /hpf Urine WBC Clumps Moderate H (None) /hpf Urine Bacteria Occasional H (None) /hpf Hyaline Casts 3 H (0-2) /lpf Urine Mucus Occasional H (None) /hpf 08/21/24 08/21/24 08/21/24 Range/Units 00:40 04:42 04:42 WBC 11.7 H (3.8-10.6) k/uL Hgb 10.5 L (11.4-16.0) gm/dL MCH 24.3 L (25.0-35.0) pg MCHC 29.5 L (31.0-37.0) g/dL RDW 19.9 H (11.5-15.5) % Neutrophils # (Manual) 9.71 H (1.3-7.7) k/uL Lymphocytes # (Manual) (1.0-4.8) k/uL Monocytes # (Manual) 1.05 H (0-1.0) k/uL Nucleated RBCs 2 H (0-0) /100 WBC ABG pH (7.35-7.45) ABG pCO2 (35-45) mmHg ABG pO2 (83-108) mmHg ABG HCO3 (21-25) mmol/L ABG Total CO2 (19-24) mmol/L ABG O2 Saturation (94-97) % ABG Lactic Acid (0.5-1.6) mmol/L Hemoglobin (11.4-16.0) gm/dL Sodium 126 L (137-145) mmol/L Potassium (3.5-5.1) mmol/L Carbon Dioxide 17 L (22-30) mmol/L BUN 56 H (7-17) mg/dL Creatinine 2.29 H (0.52-1.04) mg/dL Glucose 129 H (74-99) mg/dL POC Glucose (mg/dL) 136 H (70-110) mg/dL Plasma Lactic Acid Warren (0.7-2.0) mmol/L Calcium (8.4-10.2) mg/dL Phosphorus 4.7 H (2.5-4.5) mg/dL Total Bilirubin 2.8 H (0.2-1.3) mg/dL AST 2378 H (14-36) U/L ALT 1144 H (4-34) U/L Creatine Kinase 214 H (30-135) U/L Urine Appearance (Clear) Urine Protein (Negative) Urine Ketones (Negative) Urine Blood (Negative) Urine Bilirubin (Negative) Ur Leukocyte Esterase (Negative) Urine RBC (0-5) /hpf Urine WBC (0-5) /hpf Urine WBC Clumps (None) /hpf Urine Bacteria (None) /hpf Hyaline Casts (0-2) /lpf Urine Mucus (None) /hpf 08/21/24 08/21/2424 Range/Units 06:25 08:27 09:54 WBC (3.8-10.6) k/uL Hgb (11.4-16.0) gm/dL MCH (25.0-35.0) pg MCHC (31.0-37.0) g/dL RDW (11.5-15.5) % Neutrophils # (Manual) (1.3-7.7) k/uL Lymphocytes # (Manual) (1.0-4.8) k/uL Monocytes # (Manual) (0-1.0) k/uL Nucleated RBCs (0-0) /100 WBC ABG pH 7.34 L (7.35-7.45) ABG pCO2 (35-45) mmHg ABG pO2 (83-108) mmHg ABG HCO3 (21-25) mmol/L ABG Total CO2 (19-24) mmol/L ABG O2 Saturation 97.2 H (94-97) % ABG Lactic Acid 3.8 H* (0.5-1.6) mmol/L Hemoglobin 10.4 L (11.4-16.0) gm/dL Sodium (137-145) mmol/L Potassium (3.5-5.1) mmol/L Carbon Dioxide (22-30) mmol/L BUN (7-17) mg/dL Creatinine (0.52-1.04) mg/dL Glucose (74-99) mg/dL POC Glucose (mg/dL) 145 H (70-110) mg/dL Plasma Lactic Acid Warren (0.7-2.0) mmol/L Calcium (8.4-10.2) mg/dL Phosphorus (2.5-4.5) mg/dL Total Bilirubin (0.2-1.3) mg/dL AST (14-36) U/L ALT (4-34) U/L Creatine Kinase (30-135) U/L Urine Appearance (Clear) Urine Protein (Negative) Urine Ketones (Negative) Urine Blood (Negative) Urine Bilirubin (Negative) Ur Leukocyte Esterase (Negative) Urine RBC (0-5) /hpf Urine WBC (0-5) /hpf Urine WBC Clumps (None) /hpf Urine Bacteria (None) /hpf Hyaline Casts (0-2) /lpf Urine Mucus (None) /hpf Microbiology - Last 24 Hours (Table) 08/17/24 14:13 Gram Stain - Final Foot - Left Wound Culture - Final Staphylococcus aureus 08/17/24 14:13 Anaerobic Culture - Preliminary Foot - Left Prevotella species Diabetes panel 08/20/24 08/21/24 Range/Units 15:20 04:42 Sodium 135 L 126 L (137-145) mmol/L Potassium 5.3 H 4.7 (3.5-5.1) mmol/L Chloride 103 102 (98-107) mmol/L Carbon Dioxide 10 L 17 L (22-30) mmol/L BUN 52 H 56 H (7-17) mg/dL Creatinine 2.24 H 2.29 H (0.52-1.04) mg/dL Glucose 134 H 129 H (74-99) mg/dL Calcium 8.3 L 8.4 (8.4-10.2) mg/dL AST 1670 H 2378 H (14-36) U/L ALT 918 H 1144 H (4-34) U/L Alkaline Phosphatase 118 120 (38-126) U/L Total Protein 7.6 7.4 (6.3-8.2) g/dL Albumin 3.9 3.9 (3.5-5.0) g/dL Calcium panel 08/20/24 08/21/24 Range/Units 15:20 04:42 Calcium 8.3 L 8.4 (8.4-10.2) mg/dL Phosphorus 4.7 H (2.5-4.5) mg/dL Albumin 3.9 3.9 (3.5-5.0) g/dL Pituitary panel 08/20/24 08/21/24 Range/Units 15:20 04:42 Sodium 135 L 126 L (137-145) mmol/L Potassium 5.3 H 4.7 (3.5-5.1) mmol/L Chloride 103 102 (98-107) mmol/L Carbon Dioxide 10 L 17 L (22-30) mmol/L BUN 52 H 56 H (7-17) mg/dL Creatinine 2.24 H 2.29 H (0.52-1.04) mg/dL Glucose 134 H 129 H (74-99) mg/dL Calcium 8.3 L 8.4 (8.4-10.2) mg/dL Adrenal panel 08/20/24 08/21/24 Range/Units 15:20 04:42 Sodium 135 L 126 L (137-145) mmol/L Potassium 5.3 H 4.7 (3.5-5.1) mmol/L Chloride 103 102 (98-107) mmol/L Carbon Dioxide 10 L 17 L (22-30) mmol/L BUN 52 H 56 H (7-17) mg/dL Creatinine 2.24 H 2.29 H (0.52-1.04) mg/dL Glucose 134 H 129 H (74-99) mg/dL Calcium 8.3 L 8.4 (8.4-10.2) mg/dL Total Bilirubin 3.0 H 2.8 H (0.2-1.3) mg/dL AST 1670 H 2378 H (14-36) U/L ALT 918 H 1144 H (4-34) U/L Alkaline Phosphatase 118 120 (38-126) U/L Total Protein 7.6 7.4 (6.3-8.2) g/dL Albumin 3.9 3.9 (3.5-5.0) g/dL Assessment and Plan Assessment: 1. Left foot cool to the touch 2. Left plantar foot wound 3. Sepsis 4. Cardiomyopathy EF 10 to 15% 5. Pulmonary hypertension 5. Right lower extremity DVT on Eliquis 6. Previous right lower extremity DVT 7. Morbid obesity 8. Previous right BKA, left TMA 9. Diabetes mellitus 10. Seizure disorder Plan: 1. Lower extremity arterial ultrasound ordered and reviewed. 2. At some point patient would probably benefit from further imaging or angiogram, however patient with poor kidney function and not stable at this time 3. Continue local wound care as ordered, left foot wound does not appear infected requiring any surgical intervention at this time 4. Further recommendations forthcoming based on clinical course Thank you for this consultation, we will continue to follow. The impression and plan of care has been dictated as directed. Dr. Amos I performed a history and examination of this patient, discussed the same with the dictator. I agree with the dictator's note ,documented as a scribe. Any additional findings or plans will be noted.
--- NOTE | 2024-08-21 13:18 | P.PN ---
Subjective Progress Note Date: 08/21/24 DVT, cellulitis. Pulmonary consult dated August 17, 2024. 48-year-old female very poor historian, who apparently presented to the emergency department on August 16, at about 3:45 in the afternoon. The patient apparently came in complaining of bilateral lower extremity pain, and swelling. The patient denied any respiratory issues including shortness of breath, cough, wheezing, chest tightness, and phlegm production. The patient has a previous history of a right BKA, and a left trans metatarsal amputation. The patient had Dopplers done, and apparently on the right side, there was a DVT noted. She is currently on IV heparin. She does use home oxygen at 2 L. Here she is on 3 L. Her saturations are between 93 and 95%. In addition IV heparin she is getting saline at 20 cc an hour. I asked her about smoking, he apparently started smoking at the age of 11. She could not remember when she stopped smoking. She apparently has a history of diabetes, heart failure, COPD/asthma, CVA, DVT, hypertension, myocardial infarction, pneumonia, and seizure disorder. She has had previous infections, including ESBL, and VRE infections. Also, the patient has had a previous history of an AICD placement, and heart catheterization. Current labs include a white count of 12.8, hemoglobin 11.1, hematocrit 39.3, and a normal platelet count. The patient's PTT is 100.8. She had blood gases done twice. The first blood gas, showed a pO2 of 32, pCO2 of 49, pH of 7.24. I do not know that is believable. The second blood gas seems much more believable with a pO2 of 80, pCO2 of 44, pH of 7.25. Chest x-ray shows some very mild pulmonary vascular congestion, and some cardiomegaly. Progress note dated August 18, 2024. 48-year-old female that I saw yesterday in consultation. Please see my note above. The patient was admitted with a diagnosis of DVT, of the right lower extremity. The patient is seen today in room 474. She is lethargic like she was yesterday. She is on 3 L nasal cannula. Saturations are 98%. Her N- terminal proBNP was 21,900. Her procalcitonin level was elevated at 1.22. She remains on Rocephin and daptomycin as per infectious diseases. White count 10.8, hemoglobin 10.4, hematocrit 35.8, platelet count 244,000. Sodium 134, pot assium 5.5, chlorides 101, CO2 19, anion gap 14, BUN 58, creatinine 2.78. AST is 1556. ALT is 656. Urinalysis suggest the possibility of a urinary tract infection. Thus far, cultures are negative. Brain CT was negative. It did show an old lacunar infarct left thalamus. The perfusion study was nondiagnostic as expected, given the abnormality of the chest x-ray. Progress note dated August 19, 2024. 48-year-old female seen in consultation 2 days ago. The patient was admitted with a diagnosis of DVT, of the right lower extremity. In addition, she may have a urinary tract infection, as well as infection of the left foot. Currently, she is on 3 L of oxygen. She is getting saline at 75 cc an hour. She continues on Rocephin and daptomycin. She has been seen by infectious diseases. Current laboratory data includes a white count of 9.4, hemoglobin 10.6, hematocrit 35.8, and a platelet count of 236,000. Sodium 134, potassium 5, chlorides 103, CO2 18, BUN 61, creatinine 2.02. AST is 1165. ALT is 639. Wound culture, from the left foot, shows presumptive Staph aureus. 08/20/2024, I was asked to evaluate this patient on an emergent basis as the patient had significant decline in her condition over the past 24 hours. This is a 48-year-old female patient who came into the emergency department because of severe right lower extremity pain and recent fall from her wheelchair during transfers. She remains a very poor historian at the time of my evaluation, the patient was very lethargic and obtunded. She was having episodes of hypoglycemia since facing grinder. The patient had a low blood sugar. At the same time, the patient had become severely acidotic. Blood work from earlier this morning showed a lactic acid of 9.2, serum bicarb was at 6 with an anion gap of 22, BS was 63 with a creatinine of 1.99 and the potassium level was at 5.6. The patient was given D50 on the medical floor. I made recommendation to transfer the patient to immediately to the intensive care unit. The patient was clearly hypotensive. I was not able to accurately measure the blood pressure. In the ICU, the patient was started on norepinephrine and 0.1 mcg/kg/min. Same time, a central line was established and arterial line was also established. Urine output is minimal at this point. The most recent blood gas from the art line showed a pH of 7.19 with a pCO2 of 28 and pO2 of 207 and this was done on 100% nonrebreather facemask. The patient's white cell count is currently at 16.3 with a hemoglobin 11.8 and a platelet count of 263. The cultures from the left foot is showing Staph aureus and Prevotella and the patient is currently on IV Rocephin and daptomycin per ID recommendations. She is obtunded, lethargic, no significant agitation. Able to communicate upon stimulation. She has a DVT of the right lower extremity and the patient is on anticoagulation with Eliquis. The Doppler of the lower extremity on the left showed no evidence of any DVT. The clot on the right is believed to be in the mid/distal popliteal vein. She does have changes consistent with soft tissue infection/cellulitis of the lower extremities. Noted extremities were essentially cold and clammy and agreement with underlying sepsis/septic shock. Noted the patient also has severe ca rdiomyopathy. Echocardiogram that was done on 01/30/2024 showed left ventricular ejection fraction estimated to be around 15 to 20%. She also had moderate RV dilatation and severe pulm hypertension with an estimated PA pressure of around 61. There is also moderate degree of mitral regurgitation moderate to severe tricuspid regurgitation. Bourne catheter is in place. No focal neurological deficit at this point in time. 08/21/2024, the patient is being seen for a follow-up. The patient was crit ically ill yesterday and for that reason the patient got transferred to the intensive care that she received aggressive fluid resuscitation. She received a total of 2 L of IV fluids in the form of normal saline and the patient remains on a bicarb infusion running at 150 cc an hour. Urine output remains low and the net fluid balance is +3.5 L over the past 24 hours. Pressors were discontinued this morning. She was on a low-dose norepinephrine earlier at 0.02 mcg/kg/min and this has been discontinued. She is on 2 L of oxygen by nasal cannula. No significant respiratory distress. No further episodes of hypoglycemia. Lactic acid level dropped from 11.4 down to 3.8. Awake and alert and communicating. The left lower extremity is significantly cold and questionable pulses in the posterior tibialis. WBC count is 11.7 with hemoglobin 10.5 and a platelet count of 252. Follow-up blood 2 L of O2 Showed pH of 7.34 with pCO2 of 40 and pO2 of 90. The Patient's Sodium Levels at 126, BUN Is 56 with a Creatinine of 2.2 and a Potassium of Is at 4.7. She Has a Shock Liver with AST of 2378, ALT of 1144 and Alkaline Phosphatase of 120. Albumin Level Is at 3.9. She Remains on Rocephin and Daptomycin. She Is Currently off Pressors. She Remains on Anticoagulation and She Remains on Eliq uis. Objective - Vital Signs Vital signs: Vital Signs Temp 98.9 F 08/21/24 04:00 Pulse 102 H 08/21/24 07:00 Resp 13 08/21/24 07:00 BP 118/72 08/21/24 06:00 Pulse Ox 97 08/21/24 07:00 FiO2 100 08/20/24 18:00 Intake & Output 08/20/24 08/21/24 08/21/24 18:59 06:59 18:59 Intake Total 2497.777 1221.169 580 Output Total 15 125 11 Balance 2482.777 1096.169 569 Weight 153 kg Intake: IV 2490 1200 100 Dextrose 5% in Water 1, 100 1200 100 000 ml @ 100 mls/hr IV . [id number] JAN with Sodium Bicarb (1 Meq/ml) 150 ml Rx#:[id number] Dextrose 5% in Water 1, 360 000 ml @ 80 mls/hr IV . [id number] JAN with Sodium Bicarb (1 Meq/ml) 150 ml Rx#:[id number] Invasive Line 2 10 Invasive Line 3 20 Sodium Chloride 0.9% 1, 1000 000 ml @ 999 mls/hr IV . Q1H1M ONE Rx#:[id number] Sodium Chloride 0.9% 1, 1000 000 ml @ 999 mls/hr IV . Q1H1M ONE Rx#:[id number] Intake, IV Titration 7.777 21.169 Amount Norepinephrine 4 mg In 7.77 21.169 Sodium Chloride 0.9% 250 ml @ 0.03 MCG/KG/MIN 15. 554 mls/hr IV .[id number] JAN Rx#:[id number] Oral 480 Output: Urine 15 125 11 Other: Voiding Method Indwelling Catheter External Catheter # Bowel Movements 0 1 ABP, PAP, CO, CI - Last Documented Arterial Blood Pressure 93/51 - Exam No acute distress, much more awake and less lethargic compared to yesterday on 2 L of O2 nasal cannula HEENT examination is grossly unremarkable. Mucous membranes are moist. No oral lesions. Neck supple. Full range of motion. No adenopathy thyromegaly or neck vein distention. Cardiovascular examination reveals regular rhythm rate. S1-S2 normal. No S3 or S4. No discernible murmur noted. Sounds are distant. Lungs reveal mostly clear breath sounds. Minimal rhonchi. No wheezes or crackles. The patient is not particularly cooperative, so examination was not particularly beneficial. Abdomen soft, and obese. Bowel sounds are noted. No mass. Extremities revealed a right below the knee amputation, and transmetatarsal amputation on the left. The patient has a deep wound along the plantar aspect of the transmetatarsal amputation left lower extremity. Right lower extremity has a below-knee amputation the extremity is quite swollen. There is evidence of cellulitis in both lower extremities. Unable to appreciate any pulses in the posterior tibialis on the left. The patient has an arterial line in her right femoral artery. Cellulitis changes in lower extremities improved compared to yesterday. Skin is without rash or lesion. Wound in the left foot at the site of a previous transmetatarsal amputation was noted. No active drainage. Bone is exposed. Neurologic examination difficult to assess. No focal neurological deficit. Much more alert and awake and communicating at this point. - Labs CBC & Chem 7: 08/21/24 04:42 08/21/24 04:42 Labs: Abnormal Lab Results - Last 24 Hours (Table) 08/20/24 08/20/24 08/20/24 Range/Units 08:09 10:44 10:44 WBC 16.3 H (3.8-10.6) k/uL Hgb (11.4-16.0) gm/dL MCH 24.7 L (25.0-35.0) pg MCHC 29.1 L (31.0-37.0) g/dL RDW 19.6 H (11.5-15.5) % Neutrophils # 14.6 H (1.3-7.7) k/uL Neutrophils # (Manual) (1.3-7.7) k/uL Lymphocytes # 0.5 L (1.0-4.8) k/uL Lymphocytes # (Manual) (1.0-4.8) k/uL Monocytes # (Manual) (0-1.0) k/uL Nucleated RBCs (0-0) /100 WBC PT 33.3 H (10.0-12.5) sec INR 3.4 H (<1.2) ABG pH (7.35-7.45) ABG pCO2 (35-45) mmHg ABG pO2 (83-108) mmHg ABG HCO3 (21-25) mmol/L ABG Total CO2 (19-24) mmol/L ABG O2 Saturation (94-97) % ABG Lactic Acid (0.5-1.6) mmol/L Hemoglobin (11.4-16.0) gm/dL Sodium (137-145) mmol/L Potassium (3.5-5.1) mmol/L Carbon Dioxide (22-30) mmol/L BUN (7-17) mg/dL Creatinine (0.52-1.04) mg/dL Glucose (74-99) mg/dL POC Glucose (mg/dL) (70-110) mg/dL Plasma Lactic Acid Warren 9.2 H* (0.7-2.0) mmol/L Calcium (8.4-10.2) mg/dL Phosphorus (2.5-4.5) mg/dL Total Bilirubin (0.2-1.3) mg/dL AST (14-36) U/L ALT (4-34) U/L Creatine Kinase (30-135) U/L Urine Appearance (Clear) Urine Protein (Negative) Urine Ketones (Negative) Urine Blood (Negative) Urine Bilirubin (Negative) Ur Leukocyte Esterase (Negative) Urine RBC (0-5) /hpf Urine WBC (0-5) /hpf Urine WBC Clumps (None) /hpf Urine Bacteria (None) /hpf Hyaline Casts (0-2) /lpf Urine Mucus (None) /hpf 08/20/24 08/20/24 08/20/24 Range/Units 11:59 12:00 12:18 WBC (3.8-10.6) k/uL Hgb (11.4-16.0) gm/dL MCH (25.0-35.0) pg MCHC (31.0-37.0) g/dL RDW (11.5-15.5) % Neutrophils # (1.3-7.7) k/uL Neutrophils # (Manual) (1.3-7.7) k/uL Lymphocytes # (1.0-4.8) k/uL Lymphocytes # (Manual) (1.0-4.8) k/uL Monocytes # (Manual) (0-1.0) k/uL Nucleated RBCs (0-0) /100 WBC PT (10.0-12.5) sec INR (<1.2) ABG pH (7.35-7.45) ABG pCO2 (35-45) mmHg ABG pO2 (83-108) mmHg ABG HCO3 (21-25) mmol/L ABG Total CO2 (19-24) mmol/L ABG O2 Saturation (94-97) % ABG Lactic Acid (0.5-1.6) mmol/L Hemoglobin (11.4-16.0) gm/dL Sodium (137-145) mmol/L Potassium (3.5-5.1) mmol/L Carbon Dioxide (22-30) mmol/L BUN (7-17) mg/dL Creatinine (0.52-1.04) mg/dL Glucose (74-99) mg/dL POC Glucose (mg/dL) 39 L* 36 L* 36 L* (70-110) mg/dL Plasma Lactic Acid Warren (0.7-2.0) mmol/L Calcium (8.4-10.2) mg/dL Phosphorus (2.5-4.5) mg/dL Total Bilirubin (0.2-1.3) mg/dL AST (14-36) U/L ALT (4-34) U/L Creatine Kinase (30-135) U/L Urine Appearance (Clear) Urine Protein (Negative) Urine Ketones (Negative) Urine Blood (Negative) Urine Bilirubin (Negative) Ur Leukocyte Esterase (Negative) Urine RBC (0-5) /hpf Urine WBC (0-5) /hpf Urine WBC Clumps (None) /hpf Urine Bacteria (None) /hpf Hyaline Casts (0-2) /lpf Urine Mucus (None) /hpf 08/20/24 08/20/24 08/20/24 Range/Units 12:40 13:20 14:08 WBC (3.8-10.6) k/uL Hgb (11.4-16.0) gm/dL MCH (25.0-35.0) pg MCHC (31.0-37.0) g/dL RDW (11.5-15.5) % Neutrophils # (1.3-7.7) k/uL Neutrophils # (Manual) (1.3-7.7) k/uL Lymphocytes # (1.0-4.8) k/uL Lymphocytes # (Manual) (1.0-4.8) k/uL Monocytes # (Manual) (0-1.0) k/uL Nucleated RBCs (0-0) /100 WBC PT (10.0-12.5) sec INR (<1.2) ABG pH 7.17 L* (7.35-7.45) ABG pCO2 (35-45) mmHg ABG pO2 50 L* (83-108) mmHg ABG HCO3 13 L (21-25) mmol/L ABG Total CO2 14 L (19-24) mmol/L ABG O2 Saturation 75.3 L (94-97) % ABG Lactic Acid (0.5-1.6) mmol/L Hemoglobin 10.8 L (11.4-16.0) gm/dL Sodium (137-145) mmol/L Potassium (3.5-5.1) mmol/L Carbon Dioxide (22-30) mmol/L BUN (7-17) mg/dL Creatinine (0.52-1.04) mg/dL Glucose (74-99) mg/dL POC Glucose (mg/dL) 39 L* 126 H (70-110) mg/dL Plasma Lactic Acid Warren (0.7-2.0) mmol/L Calcium (8.4-10.2) mg/dL Phosphorus (2.5-4.5) mg/dL Total Bilirubin (0.2-1.3) mg/dL AST (14-36) U/L ALT (4-34) U/L Creatine Kinase (30-135) U/L Urine Appearance (Clear) Urine Protein (Negative) Urine Ketones (Negative) Urine Blood (Negative) Urine Bilirubin (Negative) Ur Leukocyte Esterase (Negative) Urine RBC (0-5) /hpf Urine WBC (0-5) /hpf Urine WBC Clumps (None) /hpf Urine Bacteria (None) /hpf Hyaline Casts (0-2) /lpf Urine Mucus (None) /hpf 08/20/24 08/20/24 08/20/24 Range/Units 14:42 15:20 15:20 WBC 15.1 H (3.8-10.6) k/uL Hgb 10.9 L (11.4-16.0) gm/dL MCH 23.5 L (25.0-35.0) pg MCHC 27.9 L (31.0-37.0) g/dL RDW 19.5 H (11.5-15.5) % Neutrophils # (1.3-7.7) k/uL Neutrophils # (Manual) 13.29 H (1.3-7.7) k/uL Lymphocytes # (1.0-4.8) k/uL Lymphocytes # (Manual) 0.45 L (1.0-4.8) k/uL Monocytes # (Manual) 1.36 H (0-1.0) k/uL Nucleated RBCs (0-0) /100 WBC PT (10.0-12.5) sec INR (<1.2) ABG pH 7.19 L* (7.35-7.45) ABG pCO2 28 L (35-45) mmHg ABG pO2 207 H (83-108) mmHg ABG HCO3 11 L (21-25) mmol/L ABG Total CO2 12 L (19-24) mmol/L ABG O2 Saturation 100.0 H (94-97) % ABG Lactic Acid (0.5-1.6) mmol/L Hemoglobin 10.9 L (11.4-16.0) gm/dL Sodium 135 L (137-145) mmol/L Potassium 5.3 H (3.5-5.1) mmol/L Carbon Dioxide 10 L (22-30) mmol/L BUN 52 H (7-17) mg/dL Creatinine 2.24 H (0.52-1.04) mg/dL Glucose 134 H (74-99) mg/dL POC Glucose (mg/dL) (70-110) mg/dL Plasma Lactic Acid Warren (0.7-2.0) mmol/L Calcium 8.3 L (8.4-10.2) mg/dL Phosphorus (2.5-4.5) mg/dL Total Bilirubin 3.0 H (0.2-1.3) mg/dL AST 1670 H (14-36) U/L ALT 918 H (4-34) U/L Creatine Kinase (30-135) U/L Urine Appearance (Clear) Urine Protein (Negative) Urine Ketones (Negative) Urine Blood (Negative) Urine Bilirubin (Negative) Ur Leukocyte Esterase (Negative) Urine RBC (0-5) /hpf Urine WBC (0-5) /hpf Urine WBC Clumps (None) /hpf Urine Bacteria (None) /hpf Hyaline Casts (0-2) /lpf Urine Mucus (None) /hpf 08/20/24 08/20/24 08/20/24 Range/Units 15:20 17:41 18:00 WBC (3.8-10.6) k/uL Hgb (11.4-16.0) gm/dL MCH (25.0-35.0) pg MCHC (31.0-37.0) g/dL RDW (11.5-15.5) % Neutrophils # (1.3-7.7) k/uL Neutrophils # (Manual) (1.3-7.7) k/uL Lymphocytes # (1.0-4.8) k/uL Lymphocytes # (Manual) (1.0-4.8) k/uL Monocytes # (Manual) (0-1.0) k/uL Nucleated RBCs (0-0) /100 WBC PT (10.0-12.5) sec INR (<1.2) ABG pH (7.35-7.45) ABG pCO2 (35-45) mmHg ABG pO2 (83-108) mmHg ABG HCO3 (21-25) mmol/L ABG Total CO2 (19-24) mmol/L ABG O2 Saturation (94-97) % ABG Lactic Acid 11.4 H* (0.5-1.6) mmol/L Hemoglobin (11.4-16.0) gm/dL Sodium (137-145) mmol/L Potassium (3.5-5.1) mmol/L Carbon Dioxide (22-30) mmol/L BUN (7-17) mg/dL Creatinine (0.52-1.04) mg/dL Glucose (74-99) mg/dL POC Glucose (mg/dL) 132 H (70-110) mg/dL Plasma Lactic Acid Warren (0.7-2.0) mmol/L Calcium (8.4-10.2) mg/dL Phosphorus (2.5-4.5) mg/dL Total Bilirubin (0.2-1.3) mg/dL AST (14-36) U/L ALT (4-34) U/L Creatine Kinase (30-135) U/L Urine Appearance Turbid H (Clear) Urine Protein 2+ H (Negative) Urine Ketones Trace H (Negative) Urine Blood Large H (Negative) Urine Bilirubin 1+ H (Negative) Ur Leukocyte Esterase Large H (Negative) Urine RBC 93 H (0-5) /hpf Urine WBC >182 H (0-5) /hpf Urine WBC Clumps Moderate H (None) /hpf Urine Bacteria Occasional H (None) /hpf Hyaline Casts 3 H (0-2) /lpf Urine Mucus Occasional H (None) /hpf 08/20/24 08/20/24 08/21/24 Range/Units 18:42 22:50 00:40 WBC (3.8-10.6) k/uL Hgb (11.4-16.0) gm/dL MCH (25.0-35.0) pg MCHC (31.0-37.0) g/dL RDW (11.5-15.5) % Neutrophils # (1.3-7.7) k/uL Neutrophils # (Manual) (1.3-7.7) k/uL Lymphocytes # (1.0-4.8) k/uL Lymphocytes # (Manual) (1.0-4.8) k/uL Monocytes # (Manual) (0-1.0) k/uL Nucleated RBCs (0-0) /100 WBC PT (10.0-12.5) sec INR (<1.2) ABG pH (7.35-7.45) ABG pCO2 (35-45) mmHg ABG pO2 (83-108) mmHg ABG HCO3 (21-25) mmol/L ABG Total CO2 (19-24) mmol/L ABG O2 Saturation (94-97) % ABG Lactic Acid 9.5 H* (0.5-1.6) mmol/L Hemoglobin (11.4-16.0) gm/dL Sodium (137-145) mmol/L Potassium (3.5-5.1) mmol/L Carbon Dioxide (22-30) mmol/L BUN (7-17) mg/dL Creatinine (0.52-1.04) mg/dL Glucose (74-99) mg/dL POC Glucose (mg/dL) 136 H (70-110) mg/dL Plasma Lactic Acid Warren 7.2 H* (0.7-2.0) mmol/L Calcium (8.4-10.2) mg/dL Phosphorus (2.5-4.5) mg/dL Total Bilirubin (0.2-1.3) mg/dL AST (14-36) U/L ALT (4-34) U/L Creatine Kinase (30-135) U/L Urine Appearance (Clear) Urine Protein (Negative) Urine Ketones (Negative) Urine Blood (Negative) Urine Bilirubin (Negative) Ur Leukocyte Esterase (Negative) Urine RBC (0-5) /hpf Urine WBC (0-5) /hpf Urine WBC Clumps (None) /hpf Urine Bacteria (None) /hpf Hyaline Casts (0-2) /lpf Urine Mucus (None) /hpf 08/21/24 08/21/24 08/21/24 Range/Units 04:42 04:42 06:25 WBC 11.7 H (3.8-10.6) k/uL Hgb 10.5 L (11.4-16.0) gm/dL MCH 24.3 L (25.0-35.0) pg MCHC 29.5 L (31.0-37.0) g/dL RDW 19.9 H (11.5-15.5) % Neutrophils # (1.3-7.7) k/uL Neutrophils # (Manual) 9.71 H (1.3-7.7) k/uL Lymphocytes # (1.0-4.8) k/uL Lymphocytes # (Manual) (1.0-4.8) k/uL Monocytes # (Manual) 1.05 H (0-1.0) k/uL Nucleated RBCs 2 H (0-0) /100 WBC PT (10.0-12.5) sec INR (<1.2) ABG pH (7.35-7.45) ABG pCO2 (35-45) mmHg ABG pO2 (83-108) mmHg ABG HCO3 (21-25) mmol/L ABG Total CO2 (19-24) mmol/L ABG O2 Saturation (94-97) % ABG Lactic Acid (0.5-1.6) mmol/L Hemoglobin (11.4-16.0) gm/dL Sodium 126 L (137-145) mmol/L Potassium (3.5-5.1) mmol/L Carbon Dioxide 17 L (22-30) mmol/L BUN 56 H (7-17) mg/dL Creatinine 2.29 H (0.52-1.04) mg/dL Glucose 129 H (74-99) mg/dL POC Glucose (mg/dL) 145 H (70-110) mg/dL Plasma Lactic Acid Warren (0.7-2.0) mmol/L Calcium (8.4-10.2) mg/dL Phosphorus 4.7 H (2.5-4.5) mg/dL Total Bilirubin 2.8 H (0.2-1.3) mg/dL AST 2378 H (14-36) U/L ALT 1144 H (4-34) U/L Creatine Kinase 214 H (30-135) U/L Urine Appearance (Clear) Urine Protein (Negative) Urine Ketones (Negative) Urine Blood (Negative) Urine Bilirubin (Negative) Ur Leukocyte Esterase (Negative) Urine RBC (0-5) /hpf Urine WBC (0-5) /hpf Urine WBC Clumps (None) /hpf Urine Bacteria (None) /hpf Hyaline Casts (0-2) /lpf Urine Mucus (None) /hpf 08/21/24 Range/Units 08:27 WBC (3.8-10.6) k/uL Hgb (11.4-16.0) gm/dL MCH (25.0-35.0) pg MCHC (31.0-37.0) g/dL RDW (11.5-15.5) % Neutrophils # (1.3-7.7) k/uL Neutrophils # (Manual) (1.3-7.7) k/uL Lymphocytes # (1.0-4.8) k/uL Lymphocytes # (Manual) (1.0-4.8) k/uL Monocytes # (Manual) (0-1.0) k/uL Nucleated RBCs (0-0) /100 WBC PT (10.0-12.5) sec INR (<1.2) ABG pH (7.35-7.45) ABG pCO2 (35-45) mmHg ABG pO2 (83-108) mmHg ABG HCO3 (21-25) mmol/L ABG Total CO2 (19-24) mmol/L ABG O2 Saturation (94-97) % ABG Lactic Acid 3.8 H* (0.5-1.6) mmol/L Hemoglobin (11.4-16.0) gm/dL Sodium (137-145) mmol/L Potassium (3.5-5.1) mmol/L Carbon Dioxide (22-30) mmol/L BUN (7-17) mg/dL Creatinine (0.52-1.04) mg/dL Glucose (74-99) mg/dL POC Glucose (mg/dL) (70-110) mg/dL Plasma Lactic Acid Warren (0.7-2.0) mmol/L Calcium (8.4-10.2) mg/dL Phosphorus (2.5-4.5) mg/dL Total Bilirubin (0.2-1.3) mg/dL AST (14-36) U/L ALT (4-34) U/L Creatine Kinase (30-135) U/L Urine Appearance (Clear) Urine Protein (Negative) Urine Ketones (Negative) Urine Blood (Negative) Urine Bilirubin (Negative) Ur Leukocyte Esterase (Negative) Urine RBC (0-5) /hpf Urine WBC (0-5) /hpf Urine WBC Clumps (None) /hpf Urine Bacteria (None) /hpf Hyaline Casts (0-2) /lpf Urine Mucus (None) /hpf Microbiology - Last 24 Hours (Table) 08/17/24 14:13 Gram Stain - Final Foot - Left Wound Culture - Final Staphylococcus aureus 08/17/24 14:13 Anaerobic Culture - Preliminary Foot - Left Prevotella species Assessment and Plan Plan: septic shock, likely secondary to soft tissue infection/cellulitis in addition to a wound in the left foot at the site of a transmetatarsal amputation. The patient has a chronic stage IV ulcer that has no active drainage at this point in time. Cultures were noted and it is positive for Staph aureus and Prevotella. The patient was supported with IV fluids and pressors and the patient is currently off pressors. She remains on a bicarb infusion Acute lactic acidosis, improved and the lactic acid level is normalizing Severe anion gap metabolic acidosis, improving Acute hyperkalemia, improved , Acute hypoglycemia, likely secondary to above, improved Altered mentation secondary to above, improved Cellulitis of the lower extremities bilaterally, currently on a combination of IV Rocephin and daptomycin Acute on chronic kidney injury with secondary oliguria, consider underlying ATN Right lower extremity DVT, on Eliquis Severe cardiomyopathy with an ejection fraction of 10 to 15% Severe pulmonary hypertension, likely group 2/3 pulmonary hypertension with kaitlynn re dilatation of the RV Severe peripheral vascular disease, Prior right below the knee amputation, and left transmetatarsal amputation. No appreciable pulses in the posterior tibialis on the left in the left lower extremity is quite cold at this point in time. History of COPD/asthma. Diabetes mellitus, with ongoing episodes of hypoglycemia History of CVA. Coronary artery disease with prior history of myocardial infarction. History of hypertension. History of DVT. Obesity. 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 This evaluation was done more than 30 minutes excluding time to do any procedures. This is working progress. Time with Patient: Greater than 30
--- NOTE | 2024-08-21 13:34 | US ---
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 Abnormal left CLARA suggested severe atherosclerotic disease. [facility], , 08/21/2024 1:32 PM
[2024-08-21 14:31] LABS: Glucose,Whole Blood 133 mg/dL (70-110)
[2024-08-21] MEDS: metroNIDAZOLE 500 MG TAB PO SCH (15:09)
[2024-08-21 20:33] LABS: Glucose,Whole Blood 143 mg/dL (70-110)
[2024-08-21 23:53] LABS: Glucose,Whole Blood 150 mg/dL (70-110)
[2024-08-22 05:35] LABS: African American GFR (CKD) 33 (>60 ml/min/1.73 sqM); Anion Gap 9 mmol/L; Blood Urea Nitrogen 60 mg/dL (7-17); Carbon Dioxide 25 mmol/L (22-30); Chloride 98 mmol/L (98-107); Glucose 136 mg/dL (74-99); Non-African American GFR(CKD) 29 (>60 ml/min/1.73 sqM); Potassium 4.1 mmol/L (3.5-5.1); Sodium 132 mmol/L (137-145)
[2024-08-22 06:03] LABS: Anisocytosis Slight; Basophils # (A) 0.1 k/uL (0-0.2); Basophils % (A) 1 %; Eosinophils # (A) 0.1 k/uL (0-0.7); Eosinophils % (A) 2 %; HCT 34.6 % (34.0-46.0); HGB 10.2 gm/dL (11.4-16.0); Hypochromasia Marked; Lymphocytes # (A) 0.9 k/uL (1.0-4.8); Lymphocytes % (A) 10 %; MCH 23.9 pg (25.0-35.0); MCHC 29.5 g/dL (31.0-37.0); MCV 80.9 fL (80.0-100.0); Mean Platelet Volume 10.1; Microcytosis Slight; Monocytes # (A) 0.7 k/uL (0-1.0); Monocytes % (A) 8 %; Neutrophils % (A) 78 %; Platelet Count 239 k/uL (150-450); Poikilocytosis Moderate; RBC 4.28 m/uL (3.80-5.40)
[2024-08-22 06:51] LABS: Glucose,Whole Blood 135 mg/dL (70-110)
--- NOTE | 2024-08-22 07:27 | XR ---
EXAMINATION TYPE: XR chest 1V DATE OF EXAM: 08/22/2024 COMPARISON: 08/21/2024 HISTORY: Line placement TECHNIQUE: Single frontal view of the chest is obtained. FINDINGS: Stable central line in multi lead cardiac device. Limited inspiration with bilateral subse gmental consolidation. No pneumothorax. Cardiomegaly stable. No sizable pleural effusion. IMPRESSION: Improving interstitial pattern correlate for improving venous congestion or interstitial pneumonitis. Persistent bilateral areas of subsegmental infiltrate or atelectasis [facility], , 08/22/2024 7:25 AM
[2024-08-22] MEDS: IPRATROPIUM-ALBUTEROL 3 ML NEB INHALATION SCH (07:59)
--- NOTE | 2024-08-22 08:12 | P.PN ---
Subjective Progress Note Date: 08/20/24 Principal diagnosis: Reason for follow-up is left diabetic foot ulcer and cellulitis Patient is a 48-year female with multiple comorbidities including diabetes mellitus the patient did have a right diabetic foot infection requiring right below the amputation and a chronic nonhealing wound to the left foot to be getting to the hospital with cellulitis to the left lower extremity and wound infection. 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 The patient white count is up to 15.1 creatinine is 2.24, cultures currently growing Staph aureus sensitivities pending Objective - Vital Signs Vital signs: Vital Signs Temp 97.7 F 08/20/24 07:15 Pulse 110 H 08/20/24 07:15 Resp 18 08/20/24 07:15 BP 117/64 08/20/24 09:45 Pulse Ox 94 L 08/20/24 07:15 FiO2 Intake & Output 08/19/24 08/20/24 08/20/24 18:59 06:59 18:59 Intake Total 650 Output Total 1325 850 Balance -597 -850 Intake: Intake, IV Titration 650 Amount DAPTOmycin 350 mg In 50 Sodium Chloride 0.9% 50 ml @ 100 mls/hr IVPB Q24HR@1200 [facility] Rx#: [id number] Sodium Chloride 0.9% 1, 600 000 ml @ 75 mls/hr IV . [id number] [facility] Rx#:[id number] Output: Urine 1325 850 Other: # Voids 1 # Bowel Movements 1 4 - Exam GENERAL DESCRIPTION: Middle-age female lying in bed in no distress RESPIRATORY SYSTEM: Unlabored breathing , decreased breath sounds at bases HEART: S1 S2 regular rate and rhythm , ABDOMEN: Soft , no tenderness EXTREMITIES: Left leg did have swelling and redness but cold to touch, wound to the foot is dressed - Labs CBC & Chem 7: 08/22/24 05:00 08/22/24 05:00 Labs: Abnormal Lab Results - Last 24 Hours (Table) 08/20/24 08/20/24 08/20/24 Range/Units 05:47 06:41 08:09 WBC 16.3 H (3.8-10.6) k/uL MCH 24.7 L (25.0-35.0) pg MCHC 29.1 L (31.0-37.0) g/dL RDW 19.6 H (11.5-15.5) % Neutrophils # 14.6 H (1.3-7.7) k/uL Lymphocytes # 0.5 L (1.0-4.8) k/uL PT (10.0-12.5) sec INR (<1.2) ABG pH (7.35-7.45) ABG pCO2 (35-45) mmHg ABG HCO3 (21-25) mmol/L ABG Total CO2 (19-24) mmol/L Potassium 5.6 H (3.5-5.1) mmol/L Chloride 110 H (98-107) mmol/L Carbon Dioxide 6 L* (22-30) mmol/L BUN 53 H (7-17) mg/dL Creatinine 1.99 H (0.52-1.04) mg/dL Glucose 69 L (74-99) mg/dL POC Glucose (mg/dL) 51 L (70-110) mg/dL Plasma Lactic Acid Warren (0.7-2.0) mmol/L Total Bilirubin 2.4 H (0.2-1.3) mg/dL ALT 693 H (4-34) U/L Alkaline Phosphatase 130 H (38-126) U/L 08/20/24 08/20/24 08/20/24 Range/Units 08:43 10:44 10:44 WBC (3.8-10.6) k/uL MCH (25.0-35.0) pg MCHC (31.0-37.0) g/dL RDW (11.5-15.5) % Neutrophils # (1.3-7.7) k/uL Lymphocytes # (1.0-4.8) k/uL PT 33.3 H (10.0-12.5) sec INR 3.4 H (<1.2) ABG pH 7.26 L (7.35-7.45) ABG pCO2 31 L (35-45) mmHg ABG HCO3 14 L (21-25) mmol/L ABG Total CO2 15 L (19-24) mmol/L Potassium (3.5-5.1) mmol/L Chloride (98-107) mmol/L Carbon Dioxide (22-30) mmol/L BUN (7-17) mg/dL Creatinine (0.52-1.04) mg/dL Glucose (74-99) mg/dL POC Glucose (mg/dL) (70-110) mg/dL Plasma Lactic Acid Warren 9.2 H* (0.7-2.0) mmol/L Total Bilirubin (0.2-1.3) mg/dL ALT (4-34) U/L Alkaline Phosphatase (38-126) U/L 08/20/24 08/20/24 08/20/24 Range/Units 11:59 12:00 12:18 WBC (3.8-10.6) k/uL MCH (25.0-35.0) pg MCHC (31.0-37.0) g/dL RDW (11.5-15.5) % Neutrophils # (1.3-7.7) k/uL Lymphocytes # (1.0-4.8) k/uL PT (10.0-12.5) sec INR (<1.2) ABG pH (7.35-7.45) ABG pCO2 (35-45) mmHg ABG HCO3 (21-25) mmol/L ABG Total CO2 (19-24) mmol/L Potassium (3.5-5.1) mmol/L Chloride (98-107) mmol/L Carbon Dioxide (22-30) mmol/L BUN (7-17) mg/dL Creatinine (0.52-1.04) mg/dL Glucose (74-99) mg/dL POC Glucose (mg/dL) 39 L* 36 L* 36 L* (70-110) mg/dL Plasma Lactic Acid Warren (0.7-2.0) mmol/L Total Bilirubin (0.2-1.3) mg/dL ALT (4-34) U/L Alkaline Phosphatase (38-126) U/L 08/20/24 Range/Units 12:40 WBC (3.8-10.6) k/uL MCH (25.0-35.0) pg MCHC (31.0-37.0) g/dL RDW (11.5-15.5) % Neutrophils # (1.3-7.7) k/uL Lymphocytes # (1.0-4.8) k/uL PT (10.0-12.5) sec INR (<1.2) ABG pH (7.35-7.45) ABG pCO2 (35-45) mmHg ABG HCO3 (21-25) mmol/L ABG Total CO2 (19-24) mmol/L Potassium (3.5-5.1) mmol/L Chloride (98-107) mmol/L Carbon Dioxide (22-30) mmol/L BUN (7-17) mg/dL Creatinine (0.52-1.04) mg/dL Glucose (74-99) mg/dL POC Glucose (mg/dL) 39 L* (70-110) mg/dL Plasma Lactic Acid Warren (0.7-2.0) mmol/L Total Bilirubin (0.2-1.3) mg/dL ALT (4-34) U/L Alkaline Phosphatase (38-126) U/L Microbiology - Last 24 Hours (Table) 08/16/24 16:32 Blood Culture - Preliminary Blood 08/17/24 14:13 Gram Stain - Preliminary Foot - Left Wound Culture - Preliminary Presumptive Staph aureus Assessment and Plan (1) Cellulitis of left foot Current Visit: Yes Status: Acute Code(s): L03.116 - CELLULITIS OF LEFT LOWER LIMB SNOMED Code(s): 88353382673619762 (2) Allergy to multiple antibiotics Current Visit: No Status: Acute Code(s): Z88.1 - ALLERGY STATUS TO OTHER ANTIBIOTIC AGENTS SNOMED Code(s): 501586693 (3) Diabetic ulcer of left foot Current Visit: No Status: Acute Code(s): E11.621 - TYPE 2 DIABETES MELLITUS WITH FOOT ULCER; L97.529 - NON-PRESSURE CHRONIC ULCER OTH PRT LEFT FOOT W UNSP SEVERITY SNOMED Code(s): 770203244 Plan: 1patient with a chronic nonhealing wound to the left foot plantar aspect now with evidence of left lower extremity cellulitis likely being treated for this episode of cellulitis and will need to cover for the gram-positive as well as gram-negative pathogen. 2patient with multiple antibiotic ALLERGIES that would limit the number of antibiotic safe to use 3local wound culture currently growing Staph aureus with sensitivities pending 4-patient did have worsening of her clinical condition has been transferred to the ICU, to continue with Rocephin and daptomycin pending cultures finalization, and continue local wound care as ordered Dictation was produced using [employer] dictation software. please excuse any grammatical, word or spelling errors. Time with Patient: Less than 30
--- NOTE | 2024-08-22 08:14 | P.PN ---
Subjective Progress Note Date: 08/21/24 Principal diagnosis: Reason for follow-up is left diabetic foot ulcer and cellulitis Patient is a 48-year female with multiple comorbidities including diabetes mellitus the patient did have a right diabetic foot infection requiring right below the amputation and a chronic nonhealing wound to the left foot to be getting to the hospital with cellulitis to the left lower extremity and wound infection. On today's evaluation that is 08/21/2024,the patient denies any fever or any chills, patient is breathing comfortably on 2 L nasal cannula oxygen the patient denies chest pain shortness of breath and no significant cough, patient denies abdominal pain, no nausea vomiting or diarrhea. Still complaining of pain to the left lower extremity. Patient white count is down to 11.7 creatinine is 2.29, local culture finalized with MSSA Prevotella Objective - Vital Signs Vital signs: Vital Signs Temp 97.6 F 08/21/24 12:00 Pulse 101 H 08/21/24 12:00 Resp 13 08/21/24 12:00 BP 119/71 08/21/24 08:15 Pulse Ox 97 08/21/24 12:00 FiO2 100 08/20/24 18:00 Intake & Output 08/20/24 08/21/24 08/21/24 18:59 06:59 18:59 Intake Total 2497.777 3750.185 1182.779 Output Total 15 125 96 Balance 2482.777 6151.042 2349.779 Weight 153 kg 153 kg Intake: IV 2490 1200 600 Dextrose 5% in Water 1, 100 1200 600 000 ml @ 100 mls/hr IV . [id number] JAN with Sodium Bicarb (1 Meq/ml) 150 ml Rx#:[id number] Dextrose 5% in Water 1, 360 000 ml @ 80 mls/hr IV . [id number] [facility] with Sodium Bicarb (1 Meq/ml) 150 ml Rx#:[id number] Invasive Line 2 10 Invasive Line 3 20 Sodium Chloride 0.9% 1, 1000 000 ml @ 999 mls/hr IV . Q1H1M [facility] Rx#:[id number] Sodium Chloride 0.9% 1, 1000 000 ml @ 999 mls/hr IV . Q1H1M [facility] Rx#:[id number] Intake, IV Titration 7.777 21.169 103.779 Amount Norepinephrine 4 mg In 7.777 21.169 103.779 Sodium Chloride 0.9% 250 ml @ 0.03 MCG/KG/MIN 15. 554 mls/hr IV .[id number] [facility] Rx#:[id number] Oral 580 Output: Urine 15 125 96 Other: Voiding Method Indwelling Catheter External Catheter # Bowel Movements 0 1 ABP, PAP, CO, CI - Last Documented Arterial Blood Pressure 109/65 - Exam GENERAL DESCRIPTION: Middle-age female lying in bed in no distress RESPIRATORY SYSTEM: Unlabored breathing , decreased breath sounds at bases HEART: S1 S2 regular rate and rhythm , ABDOMEN: Soft , no tenderness EXTREMITIES: Left leg cool to touch wound on the plantar aspect is dressed - Labs CBC & Chem 7: 08/22/24 05:00 08/22/24 05:00 Labs: Abnormal Lab Results - Last 24 Hours (Table) 08/20/24 08/20/24 08/20/24 Range/Units 14:42 15:20 15:20 WBC 15.1 H (3.8-10.6) k/uL Hgb 10.9 L (11.4-16.0) gm/dL MCH 23.5 L (25.0-35.0) pg MCHC 27.9 L (31.0-37.0) g/dL RDW 19.5 H (11.5-15.5) % Neutrophils # (Manual) 13.29 H (1.3-7.7) k/uL Lymphocytes # (Manual) 0.45 L (1.0-4.8) k/uL Monocytes # (Manual) 1.36 H (0-1.0) k/uL Nucleated RBCs (0-0) /100 WBC ABG pH 7.19 L* (7.35-7.45) ABG pCO2 28 L (35-45) mmHg ABG pO2 207 H (83-108) mmHg ABG HCO3 11 L (21-25) mmol/L ABG Total CO2 12 L (19-24) mmol/L ABG O2 Saturation 100.0 H (94-97) % ABG Lactic Acid (0.5-1.6) mmol/L Hemoglobin 10.9 L (11.4-16.0) gm/dL Sodium 135 L (137-145) mmol/L Potassium 5.3 H (3.5-5.1) mmol/L Carbon Dioxide 10 L (22-30) mmol/L BUN 52 H (7-17) mg/dL Creatinine 2.24 H (0.52-1.04) mg/dL Glucose 134 H (74-99) mg/dL POC Glucose (mg/dL) (70-110) mg/dL Plasma Lactic Acid Warren (0.7-2.0) mmol/L Calcium 8.3 L (8.4-10.2) mg/dL Phosphorus (2.5-4.5) mg/dL Total Bilirubin 3.0 H (0.2-1.3) mg/dL AST 1670 H (14-36) U/L ALT 918 H (4-34) U/L Creatine Kinase (30-135) U/L Urine Appearance (Clear) Urine Protein (Negative) Urine Ketones (Negative) Urine Blood (Negative) Urine Bilirubin (Negative) Ur Leukocyte Esterase (Negative) Urine RBC (0-5) /hpf Urine WBC (0-5) /hpf Urine WBC Clumps (None) /hpf Urine Bacteria (None) /hpf Hyaline Casts (0-2) /lpf Urine Mucus (None) /hpf 08/20/24 08/20/24 08/20/24 Range/Units 15:20 17:41 18:00 WBC (3.8-10.6) k/uL Hgb (11.4-16.0) gm/dL MCH (25.0-35.0) pg MCHC (31.0-37.0) g/dL RDW (11.5-15.5) % Neutrophils # (Manual) (1.3-7.7) k/uL Lymphocytes # (Manual) (1.0-4.8) k/uL Monocytes # (Manual) (0-1.0) k/uL Nucleated RBCs (0-0) /100 WBC ABG pH (7.35-7.45) ABG pCO2 (35-45) mmHg ABG pO2 (83-108) mmHg ABG HCO3 (21-25) mmol/L ABG Total CO2 (19-24) mmol/L ABG O2 Saturation (94-97) % ABG Lactic Acid 11.4 H* (0.5-1.6) mmol/L Hemoglobin (11.4-16.0) gm/dL Sodium (137-145) mmol/L Potassium (3.5-5.1) mmol/L Carbon Dioxide (22-30) mmol/L BUN (7-17) mg/dL Creatinine (0.52-1.04) mg/dL Glucose (74-99) mg/dL POC Glucose (mg/dL) 132 H (70-110) mg/dL Plasma Lactic Acid Warren (0.7-2.0) mmol/L Calcium (8.4-10.2) mg/dL Phosphorus (2.5-4.5) mg/dL Total Bilirubin (0.2-1.3) mg/dL AST (14-36) U/L ALT (4-34) U/L Creatine Kinase (30-135) U/L Urine Appearance Turbid H (Clear) Urine Protein 2+ H (Negative) Urine Ketones Trace H (Negative) Urine Blood Large H (Negative) Urine Bilirubin 1+ H (Negative) Ur Leukocyte Esterase Large H (Negative) Urine RBC 93 H (0-5) /hpf Urine WBC >182 H (0-5) /hpf Urine WBC Clumps Moderate H (None) /hpf Urine Bacteria Occasional H (None) /hpf Hyaline Casts 3 H (0-2) /lpf Urine Mucus Occasional H (None) /hpf 08/20/24 08/20/24 08/21/24 Range/Units 18:42 22:50 00:40 WBC (3.8-10.6) k/uL Hgb (11.4-16.0) gm/dL MCH (25.0-35.0) pg MCHC (31.0-37.0) g/dL RDW (11.5-15.5) % Neutrophils # (Manual) (1.3-7.7) k/uL Lymphocytes # (Manual) (1.0-4.8) k/uL Monocytes # (Manual) (0-1.0) k/uL Nucleated RBCs (0-0) /100 WBC ABG pH (7.35-7.45) ABG pCO2 (35-45) mmHg ABG pO2 (83-108) mmHg ABG HCO3 (21-25) mmol/L ABG Total CO2 (19-24) mmol/L ABG O2 Saturation (94-97) % ABG Lactic Acid 9.5 H* (0.5-1.6) mmol/L Hemoglobin (11.4-16.0) gm/dL Sodium (137-145) mmol/L Potassium (3.5-5.1) mmol/L Carbon Dioxide (22-30) mmol/L BUN (7-17) mg/dL Creatinine (0.52-1.04) mg/dL Glucose (74-99) mg/dL POC Glucose (mg/dL) 136 H (70-110) mg/dL Plasma Lactic Acid Warren 7.2 H* (0.7-2.0) mmol/L Calcium (8.4-10.2) mg/dL Phosphorus (2.5-4.5) mg/dL Total Bilirubin (0.2-1.3) mg/dL AST (14-36) U/L ALT (4-34) U/L Creatine Kinase (30-135) U/L Urine Appearance (Clear) Urine Protein (Negative) Urine Ketones (Negative) Urine Blood (Negative) Urine Bilirubin (Negative) Ur Leukocyte Esterase (Negative) Urine RBC (0-5) /hpf Urine WBC (0-5) /hpf Urine WBC Clumps (None) /hpf Urine Bacteria (None) /hpf Hyaline Casts (0-2) /lpf Urine Mucus (None) /hpf 08/21/24 08/21/24 08/21/24 Range/Units 04:42 04:42 06:25 WBC 11.7 H (3.8-10.6) k/uL Hgb 10.5 L (11.4-16.0) gm/dL MCH 24.3 L (25.0-35.0) pg MCHC 29.5 L (31.0-37.0) g/dL RDW 19.9 H (11.5-15.5) % Neutrophils # (Manual) 9.71 H (1.3-7.7) k/uL Lymphocytes # (Manual) (1.0-4.8) k/uL Monocytes # (Manual) 1.05 H (0-1.0) k/uL Nucleated RBCs 2 H (0-0) /100 WBC ABG pH (7.35-7.45) ABG pCO2 (35-45) mmHg ABG pO2 (83-108) mmHg ABG HCO3 (21-25) mmol/L ABG Total CO2 (19-24) mmol/L ABG O2 Saturation (94-97) % ABG Lactic Acid (0.5-1.6) mmol/L Hemoglobin (11.4-16.0) gm/dL Sodium 126 L (137-145) mmol/L Potassium (3.5-5.1) mmol/L Carbon Dioxide 17 L (22-30) mmol/L BUN 56 H (7-17) mg/dL Creatinine 2.29 H (0.52-1.04) mg/dL Glucose 129 H (74-99) mg/dL POC Glucose (mg/dL) 145 H (70-110) mg/dL Plasma Lactic Acid Warren (0.7-2.0) mmol/L Calcium (8.4-10.2) mg/dL Phosphorus 4.7 H (2.5-4.5) mg/dL Total Bilirubin 2.8 H (0.2-1.3) mg/dL AST 2378 H (14-36) U/L ALT 1144 H (4-34) U/L Creatine Kinase 214 H (30-135) U/L Urine Appearance (Clear) Urine Protein (Negative) Urine Ketones (Negative) Urine Blood (Negative) Urine Bilirubin (Negative) Ur Leukocyte Esterase (Negative) Urine RBC (0-5) /hpf Urine WBC (0-5) /hpf Urine WBC Clumps (None) /hpf Urine Bacteria (None) /hpf Hyaline Casts (0-2) /lpf Urine Mucus (None) /hpf 08/21/24 08/21/24 08/21/24 Range/Units 08:27 09:54 14:30 WBC (3.8-10.6) k/uL Hgb (11.4-16.0) gm/dL MCH (25.0-35.0) pg MCHC (31.0-37.0) g/dL RDW (11.5-15.5) % Neutrophils # (Manual) (1.3-7.7) k/uL Lymphocytes # (Manual) (1.0-4.8) k/uL Monocytes # (Manual) (0-1.0) k/uL Nucleated RBCs (0-0) /100 WBC ABG pH 7.34 L (7.35-7.45) ABG pCO2 (35-45) mmHg ABG pO2 (83-108) mmHg ABG HCO3 (21-25) mmol/L ABG Total CO2 (19-24) mmol/L ABG O2 Saturation 97.2 H (94-97) % ABG Lactic Acid 3.8 H* (0.5-1.6) mmol/L Hemoglobin 10.4 L (11.4-16.0) gm/dL Sodium (137-145) mmol/L Potassium (3.5-5.1) mmol/L Carbon Dioxide (22-30) mmol/L BUN (7-17) mg/dL Creatinine (0.52-1.04) mg/dL Glucose (74-99) mg/dL POC Glucose (mg/dL) 133 H (70-110) mg/dL Plasma Lactic Acid Warren (0.7-2.0) mmol/L Calcium (8.4-10.2) mg/dL Phosphorus (2.5-4.5) mg/dL Total Bilirubin (0.2-1.3) mg/dL AST (14-36) U/L ALT (4-34) U/L Creatine Kinase (30-135) U/L Urine Appearance (Clear) Urine Protein (Negative) Urine Ketones (Negative) Urine Blood (Negative) Urine Bilirubin (Negative) Ur Leukocyte Esterase (Negative) Urine RBC (0-5) /hpf Urine WBC (0-5) /hpf Urine WBC Clumps (None) /hpf Urine Bacteria (None) /hpf Hyaline Casts (0-2) /lpf Urine Mucus (None) /hpf Microbiology - Last 24 Hours (Table) 08/17/24 14:13 Anaerobic Culture - Final Foot - Left Prevotella species 08/17/24 14:13 Gram Stain - Final Foot - Left Wound Culture - Final Staphylococcus aureus Assessment and Plan (1) Cellulitis of left foot Current Visit: Yes Status: Acute Code(s): L03.116 - CELLULITIS OF LEFT LOWER LIMB SNOMED Code(s): 37348147167310328 (2) Allergy to multiple antibiotics Current Visit: No Status: Acute Code(s): Z88.1 - ALLERGY STATUS TO OTHER ANTIBIOTIC AGENTS SNOMED Code(s): 099335918 (3) Diabetic ulcer of left foot Current Visit: No Status: Acute Code(s): E11.621 - TYPE 2 DIABETES MELLITUS WITH FOOT ULCER; L97.529 - NON-PRESSURE CHRONIC ULCER OTH PRT LEFT FOOT W UNSP SEVERITY SNOMED Code(s): 867516740 Plan: 1patient with a chronic nonhealing wound to the left foot plantar aspect now with evidence of left lower extremity cellulitis likely being treated for this episode of cellulitis and will need to cover for the gram-positive as well as gram-negative pathogen. 2patient with multiple antibiotic ALLERGIES that would limit the number of antibiotic safe to use 3local wound culture currently growing MSSA and Prevotella 4-patient did have cold left lower extremity vascular surgery has been consulted awaiting their recommendation. 5we will discontinue daptomycin and Rocephin start the patient cefazolin and Flagyl on the basis of culture data and monitor clinical course closely Dictation was produced using [employer] dictation software. please excuse any grammatical, word or spelling errors. Time with Patient: Less than 30
--- NOTE | 2024-08-22 08:24 | P.PN ---
Subjective Progress Note Date: 08/22/24 Principal diagnosis: Left foot wound, cellulitis Patient is seen and examined today as a follow-up. She remains in the ICU. She remains off Levophed. She has been afebrile. She is more awake and alert today compared to yesterday. Left foot is warm. She underwent ABIs yesterday with left CLARA 0.66. No reported acute changes through the night. She still complains of bilateral lower extremity pain. She remains quite swollen. Objective - Vital Signs Vital signs: Vital Signs Temp 97.8 F 08/22/24 04:00 Pulse 101 H 08/22/24 07:00 Resp 12 08/22/24 07:00 BP 102/62 08/22/24 00:00 Pulse Ox 96 08/22/24 07:00 FiO2 100 08/20/24 18:00 Intake & Output 08/21/24 08/22/24 08/22/24 18:59 06:59 18:59 Intake Total 2533.779 1730 100 Output Total 311 437 40 Balance 2222.779 1293 60 Weight 153 kg Intake: IV 1350 1250 100 DAPTOmycin 350 mg In 50 Sodium Chloride 0.9% 50 ml @ 100 mls/hr IVPB Q24HR@1200 [facility] Rx#: [id number] Dextrose 5% in Water 1, 1200 1200 100 000 ml @ 100 mls/hr IV . [id number] JAN with Sodium Bicarb (1 Meq/ml) 150 ml Rx#:[id number] ceFAZolin 2 gm In Sodium 50 50 Chloride 0.9% 50 ml @ 100 mls/hr IVPB Q8HR JAN Rx# :[id number] cefTRIAXone 2 gm In 50 Sodium Chloride 0.9% 50 ml @ 100 mls/hr IVPB Q24HR [facility] Rx#:[id number] Intake, IV Titration 103.779 Amount Norepinephrine 4 mg In 103.779 Sodium Chloride 0.9% 250 ml @ 0.03 MCG/KG/MIN 15. 554 mls/hr IV .[id number] JAN Rx#:[id number] Oral 1080 480 Output: Urine 311 437 40 Other: Voiding Method Incontinent External Catheter External Catheter ABP, PAP, CO, CI - Last Documented Arterial Blood Pressure 109/64 - Exam General appearance: The patient is alert, oriented, appears in no acute distress. HET: Head is normocephalic and atraumatic. Neck: Supple. Heart: Regular. Lungs: Equal expansion, normal respiratory effort. Abdomen: Soft, morbidly obese, nondistended. Extremities: Right previous BKA well-healed with swelling and erythema. Left previous TMA well-healed. Left foot pink, warm to the touch. Erythema up patient's cat. Wound to plantar aspect without any drainage, redness, no signs of infection. Palpable PT pulse, PT and DP signals present. Sensorimotor intact. Neurological: No focal deficits. Patient more awake and alert today. - Labs CBC & Chem 7: 08/22/24 05:00 08/22/24 05:00 Labs: Abnormal Lab Results - Last 24 Hours (Table) 08/21/24 08/21/24 08/21/24 Range/Units 04:42 04:42 08:27 WBC 11.7 H (3.8-10.6) k/uL Hgb (11.4-16.0) gm/dL MCH (25.0-35.0) pg MCHC (31.0-37.0) g/dL RDW (11.5-15.5) % Neutrophils # (Manual) 9.71 H (1.3-7.7) k/uL Lymphocytes # (1.0-4.8) k/uL Monocytes # (Manual) 1.05 H (0-1.0) k/uL Nucleated RBCs 2 H (0-0) /100 WBC ABG pH (7.35-7.45) ABG O2 Saturation (94-97) % ABG Lactic Acid 3.8 H* (0.5-1.6) mmol/L Hemoglobin (11.4-16.0) gm/dL Sodium 126 L (137-145) mmol/L Carbon Dioxide 17 L (22-30) mmol/L BUN 56 H (7-17) mg/dL Creatinine 2.29 H (0.52-1.04) mg/dL Glucose 129 H (74-99) mg/dL POC Glucose (mg/dL) (70-110) mg/dL Calcium (8.4-10.2) mg/dL Phosphorus 4.7 H (2.5-4.5) mg/dL Total Bilirubin 2.8 H (0.2-1.3) mg/dL AST 2378 H (14-36) U/L ALT 1144 H (4-34) U/L Creatine Kinase 214 H (30-135) U/L 08/21/24 08/21/24 08/21/24 Range/Units 09:54 14:30 18:32 WBC (3.8-10.6) k/uL Hgb (11.4-16.0) gm/dL MCH (25.0-35.0) pg MCHC (31.0-37.0) g/dL RDW (11.5-15.5) % Neutrophils # (Manual) (1.3-7.7) k/uL Lymphocytes # (1.0-4.8) k/uL Monocytes # (Manual) (0-1.0) k/uL Nucleated RBCs (0-0) /100 WBC ABG pH 7.34 L (7.35-7.45) ABG O2 Saturation 97.2 H (94-97) % ABG Lactic Acid (0.5-1.6) mmol/L Hemoglobin 10.4 L (11.4-16.0) gm/dL Sodium (137-145) mmol/L Carbon Dioxide (22-30) mmol/L BUN (7-17) mg/dL Creatinine (0.52-1.04) mg/dL Glucose (74-99) mg/dL POC Glucose (mg/dL) 133 H 143 H (70-110) mg/dL Calcium (8.4-10.2) mg/dL Phosphorus (2.5-4.5) mg/dL Total Bilirubin (0.2-1.3) mg/dL AST (14-36) U/L ALT (4-34) U/L Creatine Kinase (30-135) U/L 08/21/24 08/22/24 08/22/24 Range/Units 23:52 05:00 05:00 WBC (3.8-10.6) k/uL Hgb 10.2 L (11.4-16.0) gm/dL MCH 23.9 L (25.0-35.0) pg MCHC 29.5 L (31.0-37.0) g/dL RDW 20.0 H (11.5-15.5) % Neutrophils # (Manual) (1.3-7.7) k/uL Lymphocytes # 0.9 L (1.0-4.8) k/uL Monocytes # (Manual) (0-1.0) k/uL Nucleated RBCs (0-0) /100 WBC ABG pH (7.35-7.45) ABG O2 Saturation (94-97) % ABG Lactic Acid (0.5-1.6) mmol/L Hemoglobin (11.4-16.0) gm/dL Sodium 132 L (137-145) mmol/L Carbon Dioxide (22-30) mmol/L BUN 60 H (7-17) mg/dL Creatinine 2.00 H (0.52-1.04) mg/dL Glucose 136 H (74-99) mg/dL POC Glucose (mg/dL) 150 H (70-110) mg/dL Calcium 8.0 L (8.4-10.2) mg/dL Phosphorus (2.5-4.5) mg/dL Total Bilirubin (0.2-1.3) mg/dL AST (14-36) U/L ALT (4-34) U/L Creatine Kinase (30-135) U/L 08/22/24 Range/Units 06:49 WBC (3.8-10.6) k/uL Hgb (11.4-16.0) gm/dL MCH (25.0-35.0) pg MCHC (31.0-37.0) g/dL RDW (11.5-15.5) % Neutrophils # (Manual) (1.3-7.7) k/uL Lymphocytes # (1.0-4.8) k/uL Monocytes # (Manual) (0-1.0) k/uL Nucleated RBCs (0-0) /100 WBC ABG pH (7.35-7.45) ABG O2 Saturation (94-97) % ABG Lactic Acid (0.5-1.6) mmol/L Hemoglobin (11.4-16.0) gm/dL Sodium (137-145) mmol/L Carbon Dioxide (22-30) mmol/L BUN (7-17) mg/dL Creatinine (0.52-1.04) mg/dL Glucose (74-99) mg/dL POC Glucose (mg/dL) 135 H (70-110) mg/dL Calcium (8.4-10.2) mg/dL Phosphorus (2.5-4.5) mg/dL Total Bilirubin (0.2-1.3) mg/dL AST (14-36) U/L ALT (4-34) U/L Creatine Kinase (30-135) U/L Microbiology - Last 24 Hours (Table) 08/16/24 16:32 Blood Culture - Final Blood 08/17/24 14:13 Anaerobic Culture - Final Foot - Left Prevotella species 08/17/24 14:13 Gram Stain - Final Foot - Left Wound Culture - Final Staphylococcus aureus Assessment and Plan Assessment: 1. Cold left foot resolved. Likely secondary to pressors. 2. Left lower extremity peripheral arterial disease likely chronic 3. Left plantar foot wound, does not appear to be infected 4. Sepsis 5. Cardiomyopathy EF 10 to 15% 6. Pulmonary hypertension 7. Right lower extremity DVT on Eliquis 8. Previous right lower extremity DVT 9. Morbid obesity 10. Previous right BKA, left TMA 11. Diabetes mellitus 12. Seizure disorder Plan: 1. Lower extremity arterial ultrasound ordered and reviewed. 2. Left lower extremity perfusion improved. There is no indication for any emergent or urgent surgical intervention. 3. Continue local wound care as ordered, left foot wound does not appear infected requiring any surgical intervention at this time 4. Recommend outpatient follow-up with vascular surgery, will discuss possible angiogram at that time. 5. Patient would benefit from formal wound care as outpatient with wound care center Thank you for this consultation, we will continue to follow. The impression and plan of care has been dictated as directed. Dr. Amos I performed a history and examination of this patient, discussed the same with the dictator. I agree with the dictator's note ,documented as a scribe. Any additional findings or plans will be noted.
[2024-08-22] MEDS: SODIUM CHLORIDE 0.9% 1,000 ML IV SCH (09:29)
--- NOTE | 2024-08-22 09:58 | P.CONS ---
History of Present Illness - Reason for Consult Consult date: 08/22/24 wound care - History of Present Illness This is a 48-year-old patient being seen for a nonhealing ulceration to the left plantar foot. Ulceration measures approximately 2.5 x 1.2 x 0.3 cm with slough and nonviable tissue present wound edges are not attached to the wound base. There is no tunneling or undermining noted. Minimal granulation noted within the wound bed. Patient's past medical history significant for Asthma heart failure COPD CVA diabetes hypertension [place] previous right below the knee amputation. Review Of Systems: Constitutional: No fever, no chills, no night sweats. No weight change. No weakness, fatigue or lethargy. No daytime sleepiness. Integumentary:reports wounds, no lesions. No rash or pruritus. No unusual bruising. No change in hair or nails. Physical exam: General Appearance: Alert, cooperative, no distress, appears stated age. Skin: See HPI all other Skin color, texture, tugor normal, no rashes or lesions. Neurologic: Alert oriented x3 Assessment: 1. Nonhealing ulceration with fat layer exposure left plantar foot 2. Diabetic foot ulcer Plan: 1. Apply absorptive silver, saline moist gauze, dry gauze, rolled gauze and secure with paper tape. Change Tuesday. Would be happy to see this patient in the outpatient setting for advanced wound care. Thank you for the consultation any questions please contact the wound care center DNP note has been reviewed and discussed with Dr. Miranda and the impression and plan of care has been directed as dictated. Past Medical History Past Medical History: Asthma, Heart Failure, COPD, CVA/TIA, Diabetes Mellitus, Deep Vein Thrombosis (DVT), Hypertension, Myocardial Infarction ([place]), Pneumonia, Seizure Disorder, Seizure Disorder Additional Past Medical History / Comment(s): uses a wheelchair. Patient states last seizure summer 2019 while she was at [facility]. 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 has pacemaker defibrillator, right all toe amputated 04/2016, R BKA 2019, LT GREAT TOE then left foot partial amputation, cardiac cath 2022 Past Anesthesia/Blood Transfusion Reactions: Postoperative Nausea & Vomiting (PONV) Type of Cardiac Device: Biventricular Pacemaker, Permanent Pacemaker, AICD Device Placement Date:: 2011 Past Psychological History: Bipolar Additional Psychological History / Comment(s): She is wheelchair bound/transfers self. She has a glucometer and nebulizer. Smoking Status: Never smoker Past Alcohol Use History: None Reported Additional Past Alcohol Use History / Comment(s): quit 2017 Past Drug Use History: Marijuana Additional Drug Use History / Comment(s): Pt smokes marijuana at HS for a sleep aide or for pain control - Past Family History Mother Family Medical History: Unable to Obtain, Deep Vein Thrombosis (DVT) Additional Family Medical History / Comment(s): Some type of heart problems, kidney failure. Father History Unknown: Yes Family Medical History: Unable to Obtain Additional Family Medical History / Comment(s): Patient denies knowing any medical history on her father. Medications and Allergies Home Medications Medication Instructions Recorded Confirmed Type Insulin Glargine [Lantus Vial] 40 unit SQ HS 04/30/19 08/16/24 History Pantoprazole [Protonix] 40 mg PO DAILY 01/29/24 08/16/24 History Apixaban [Eliquis] 5 mg PO BID 04/19/24 08/16/24 History Bumetanide [BUMEX] 2 mg PO DAILY 04/19/24 08/16/24 History Sacubitril/Valsartan [Entresto 49 1 tab PO BID 04/19/24 08/16/24 History mg-51 mg Tablet] ALPRAZolam [Xanax] 0.5 mg PO BID 08/16/24 08/16/24 History Gabapentin 600 mg PO TID 08/16/24 08/16/24 History Ipratropium-Albuterol Nebulize 3 ml INHALATION RT-TID PRN 08/16/24 08/16/24 History [Duoneb 0.5 mg-3 mg/3 ml Soln] Lacosamide [Vimpat] 50 mg PO BID 08/16/24 08/16/24 History Allergies Allergy/AdvReac Type Severity Reaction Status Date / Time Penicillins Allergy Rash/Hives Verified 08/16/24 17:58 vancomycin Allergy Rash/Hives Verified 08/16/24 17:58 ondansetron [From Zofran] AdvReac Nausea & Verified 08/16/24 17:58 Vomiting Physical Exam Vitals: Vital Signs Temp Pulse Resp BP Pulse Ox 08/22/24 09:00 97 8 L 115/78 96 08/22/24 08:11 98 08/22/24 08:01 95 08/22/24 08:00 97.7 F 97 20 110/65 96 08/22/24 07:00 101 H 12 96 08/22/24 06:00 98 12 98 08/22/24 05:00 99 14 98 08/22/24 04:00 97.8 F 98 14 98 08/22/24 03:00 100 19 99 08/22/24 02:00 101 H 13 99 08/22/24 01:00 102 H 16 98 08/22/24 00:00 98.5 F 101 H 8 L 102/62 99 08/21/24 23:00 101 H 11 L 96 08/21/24 22:00 106 H 11 L 98 08/21/24 21:00 106 H 15 97 08/21/24 20:00 97.9 F 101 H 15 92 L 08/21/24 19:51 99 08/21/24 19:43 99 08/21/24 19:00 101 H 22 100/63 96 08/21/24 18:00 101 H 14 99 08/21/24 17:41 100 08/21/24 17:31 100 08/21/24 17:00 100 20 100/63 100 08/21/24 16:00 96.4 F L 98 17 96 08/21/24 15:00 96.4 F L 100 13 96 08/21/24 14:00 103 H 15 95 08/21/24 13:00 102 H 20 96 08/21/24 12:00 97.6 F 101 H 13 97 08/21/24 11:45 99 13 96 08/21/24 11:30 100 11 L 96 08/21/24 11:15 100 13 98 08/21/24 11:00 101 H 28 H 100 08/21/24 10:45 100 13 98 08/21/24 10:30 100 17 96 08/21/24 10:15 101 H 12 96 08/21/24 10:00 104 H 11 L 95 Intake and Output 08/21/24 08/22/24 08/22/24 22:59 06:59 14:59 Intake Total 1830 850 350 Output Total 255 312 130 Balance 1575 538 220 Intake: IV 850 850 350 Dextrose 5% in Water 1, 800 800 300 000 ml @ 100 mls/hr IV . [id number] JAN with Sodium Bicarb (1 Meq/ml) 150 ml Rx#:[id number] Sodium Chloride 0.9% 1, 50 000 ml @ 50 mls/hr IV . Q20H JAN Rx#:[id number] ceFAZolin 2 gm In Sodium 50 50 Chloride 0.9% 50 ml @ 100 mls/hr IVPB Q8HR JAN Rx# :[id number] Oral 980 Output: Urine 255 312 130 Other: Voiding Method External Catheter External Catheter Weight 154.3 kg ABP, PAP, CO, CI - Last 8 Hours Arterial Blood Pressure 128/79 Arterial Blood Pressure 114/65 Arterial Blood Pressure 109/64 Arterial Blood Pressure 110/61 Arterial Blood Pressure 112/66 Arterial Blood Pressure 96/57 Arterial Blood Pressure 109/62 Arterial Blood Pressure 104/59 Results CBC & Chem 7: 08/22/24 05:00 08/22/24 05:00 Labs: Abnormal Lab Results - Last 24 Hours (Table) 08/21/24 08/21/24 08/21/24 Range/Units 09:54 14:30 18:32 Hgb (11.4-16.0) gm/dL MCH (25.0-35.0) pg MCHC (31.0-37.0) g/dL RDW (11.5-15.5) % Lymphocytes # (1.0-4.8) k/uL ABG pH 7.34 L (7.35-7.45) ABG O2 Saturation 97.2 H (94-97) % Hemoglobin 10.4 L (11.4-16.0) gm/dL Sodium (137-145) mmol/L BUN (7-17) mg/dL Creatinine (0.52-1.04) mg/dL Glucose (74-99) mg/dL POC Glucose (mg/dL) 133 H 143 H (70-110) mg/dL Calcium (8.4-10.2) mg/dL 08/21/24 08/22/24 08/22/24 Range/Units 23:52 05:00 05:00 Hgb 10.2 L (11.4-16.0) gm/dL MCH 23.9 L (25.0-35.0) pg MCHC 29.5 L (31.0-37.0) g/dL RDW 20.0 H (11.5-15.5) % Lymphocytes # 0.9 L (1.0-4.8) k/uL ABG pH (7.35-7.45) ABG O2 Saturation (94-97) % Hemoglobin (11.4-16.0) gm/dL Sodium 132 L (137-145) mmol/L BUN 60 H (7-17) mg/dL Creatinine 2.00 H (0.52-1.04) mg/dL Glucose 136 H (74-99) mg/dL POC Glucose (mg/dL) 150 H (70-110) mg/dL Calcium 8.0 L (8.4-10.2) mg/dL 08/22/24 Range/Units 06:49 Hgb (11.4-16.0) gm/dL MCH (25.0-35.0) pg MCHC (31.0-37.0) g/dL RDW (11.5-15.5) % Lymphocytes # (1.0-4.8) k/uL ABG pH (7.35-7.45) ABG O2 Saturation (94-97) % Hemoglobin (11.4-16.0) gm/dL Sodium (137-145) mmol/L BUN (7-17) mg/dL Creatinine (0.52-1.04) mg/dL Glucose (74-99) mg/dL POC Glucose (mg/dL) 135 H (70-110) mg/dL Calcium (8.4-10.2) mg/dL Microbiology - Last 24 Hours (Table) 08/20/24 18:00 Urine Culture - Final Urine,Voided 08/16/24 16:32 Blood Culture - Final Blood 08/17/24 14:13 Anaerobic Culture - Final Foot - Left Prevotella species 08/17/24 14:13 Gram Stain - Final Foot - Left Wound Culture - Final Staphylococcus aureus Assessment and Plan (1) Non-pressure chronic ulcer of other part of left foot with fat layer exposed Current Visit: Yes Status: Acute Code(s): L97.522 - NON-PRS CHRONIC ULCER OTH PRT LEFT FOOT W FAT LAYER EXPOSED SNOMED Code(s): 99999396825758904 (2) Diabetic foot ulcer Current Visit: No Status: Acute Code(s): E11.621 - TYPE 2 DIABETES MELLITUS WITH FOOT ULCER; L97.509 - NON-PRESSURE CHRONIC ULCER OTH PRT UNSP FOOT W UNSP SEVERITY SNOMED Code(s): 163479846
--- NOTE | 2024-08-22 11:32 | P.PN ---
Subjective Patient seen in follow-up for acute kidney injury. Resting in bed. Renal function little better. Urine output 40 to 50 cc an hour. Remains off [facility] [employer]. Vital signs are stable. General: No acute distress. HEENT: Head exam is unremarkable. On nasal cannula. LUNGS: No audible rhonchi or wheezes. HEART: Rate and Rhythm are regular. ABDOMEN: Obese, nontender. EXTREMITITES: Right BKA noted. Transmetatarsal amputation on the left noted. E rythema noted. Objective - Vital Signs Vital signs: Vital Signs Temp 97.7 F 08/22/24 08:00 Pulse 97 08/22/24 09:00 Resp 8 L 08/22/24 09:00 BP 115/78 08/22/24 09:00 Pulse Ox 96 08/22/24 09:00 FiO2 100 08/20/24 18:00 Intake & Output 08/21/24 08/22/24 08/22/24 18:59 06:59 18:59 Intake Total 2533.779 1730 350 Output Total 311 437 130 Balance 2222.779 1293 220 Weight 153 kg 154.3 kg Intake: IV 1350 1250 350 DAPTOmycin 350 mg In 50 Sodium Chloride 0.9% 50 ml @ 100 mls/hr IVPB Q24HR@1200 [facility] Rx#: [id number] Dextrose 5% in Water 1, 1200 1200 300 000 ml @ 100 mls/hr IV . [id number] JAN with Sodium Bicarb (1 Meq/ml) 150 ml Rx#:[id number] Sodium Chloride 0.9% 1, 50 000 ml @ 50 mls/hr IV . Q20H [facility] Rx#:[id number] ceFAZolin 2 gm In Sodium 50 50 Chloride 0.9% 50 ml @ 100 mls/hr IVPB Q8HR JAN Rx# :[id number] cefTRIAXone 2 gm In 50 Sodium Chloride 0.9% 50 ml @ 100 mls/hr IVPB Q24HR [facility] Rx#:[id number] Intake, IV Titration 103.779 Amount Norepinephrine 4 mg In 103.779 Sodium Chloride 0.9% 250 ml @ 0.03 MCG/KG/MIN 15. 554 mls/hr IV .[id number] JAN Rx#:[id number] Oral 1080 480 Output: Urine 311 437 130 Other: Voiding Method Incontinent External Catheter External Catheter ABP, PAP, CO, CI - Last Documented Arterial Blood Pressure 128/79 - Labs CBC & Chem 7: 08/22/24 05:00 08/22/24 05:00 Labs: Abnormal Lab Results - Last 24 Hours (Table) 08/21/24 08/21/24 08/21/24 Range/Units 14:30 18:32 23:52 Hgb (11.4-16.0) gm/dL MCH (25.0-35.0) pg MCHC (31.0-37.0) g/dL RDW (11.5-15.5) % Lymphocytes # (1.0-4.8) k/uL Sodium (137-145) mmol/L BUN (7-17) mg/dL Creatinine (0.52-1.04) mg/dL Glucose (74-99) mg/dL POC Glucose (mg/dL) 133 H 143 H 150 H (70-110) mg/dL Calcium (8.4-10.2) mg/dL 08/22/24 08/22/24 08/22/24 Range/Units 05:00 05:00 06:49 Hgb 10.2 L (11.4-16.0) gm/dL MCH 23.9 L (25.0-35.0) pg MCHC 29.5 L (31.0-37.0) g/dL RDW 20.0 H (11.5-15.5) % Lymphocytes # 0.9 L (1.0-4.8) k/uL Sodium 132 L (137-145) mmol/L BUN 60 H (7-17) mg/dL Creatinine 2.00 H (0.52-1.04) mg/dL Glucose 136 H (74-99) mg/dL POC Glucose (mg/dL) 135 H (70-110) mg/dL Calcium 8.0 L (8.4-10.2) mg/dL Microbiology - Last 24 Hours (Table) 08/20/24 18:00 Urine Culture - Final Urine,Voided 08/16/24 16:32 Blood Culture - Final Blood 08/17/24 14:13 Anaerobic Culture - Final Foot - Left Prevotella species 08/17/24 14:13 Gram Stain - Final Foot - Left Wound Culture - Final Staphylococcus aureus Assessment and Plan Assessment: 1. Acute kidney injury secondary to ATN secondary to septic shock. Baseline creatinine near 1. Creatinine better at 2.0. Urine output 40 to 50 cc an hour. No hydronephrosis noted on kidney ultrasound. Left kidney not visualized due to patient body habitus. 2. Hyperkalemia due to YOLA and acidosis. Improved. 3. AGMA from lactic acidosis with non-anion gap metabolic acidosis from IVF with respiratory acidosis. Improved with bicarb drip. 4. CKD stage IIIa 2/2 cardiorenal syndrome. Cr baseline 1-1.1 5. CHFrEF (15-20%). 6. Hyponatremia secondary to acute kidney injury. Improved. 7. LLE cellulitis with DVT on antibiotics. Also on anticoagulation. 8. Type 2 Diabetes Plan: Maintain normal saline. Avoid nephrotoxins. Continue to monitor renal function and urine output. Continue to assess daily for need for renal placement therapy. Phosphorus level 4.7 dated August 21, 2024.
--- NOTE | 2024-08-22 11:41 | P.PN ---
Subjective Progress Note Date: 08/22/24 DVT, cellulitis. Pulmonary consult dated August 17, 2024. 48-year-old female very poor historian, who apparently presented to the emergency department on August 16, at about 3:45 in the afternoon. The patient apparently came in complaining of bilateral lower extremity pain, and swelling. The patient denied any respiratory issues including shortness of breath, cough, wheezing, chest tightness, and phlegm production. The patient has a previous history of a right BKA, and a left trans metatarsal amputation. The patient had Dopplers done, and apparently on the right side, there was a DVT noted. She is currently on IV heparin. She does use home oxygen at 2 L. Here she is on 3 L. Her saturations are between 93 and 95%. In addition IV heparin she is getting saline at 20 cc an hour. I asked her about smoking, he apparently started smoking at the age of 11. She could not remember when she stopped smoking. She apparently has a history of diabetes, heart failure, COPD/asthma, CVA, DVT, hypertension, myocardial infarction, pneumonia, and seizure disorder. She has had previous infections, including ESBL, and VRE infections. Also, the patient has had a previous history of an AICD placement, and heart catheterization. Current labs include a white count of 12.8, hemoglobin 11.1, hematocrit 39.3, and a normal platelet count. The patient's PTT is 100.8. She had blood gases done twice. The first blood gas, showed a pO2 of 32, pCO2 of 49, pH of 7.24. I do not know that is believable. The second blood gas seems much more believable with a pO2 of 80, pCO2 of 44, pH of 7.25. Chest x-ray shows some very mild pulmonary vascular congestion, and some cardiomegaly. Progress note dated August 18, 2024. 48-year-old female that I saw yesterday in consultation. Please see my note above. The patient was admitted with a diagnosis of DVT, of the right lower extremity. The patient is seen today in room 474. She is lethargic like she was yesterday. She is on 3 L nasal cannula. Saturations are 98%. Her N- terminal proBNP was 21,900. Her procalcitonin level was elevated at 1.22. She remains on Rocephin and daptomycin as per infectious diseases. White count 10.8, hemoglobin 10.4, hematocrit 35.8, platelet count 244,000. Sodium 134, pot assium 5.5, chlorides 101, CO2 19, anion gap 14, BUN 58, creatinine 2.78. AST is 1556. ALT is 656. Urinalysis suggest the possibility of a urinary tract infection. Thus far, cultures are negative. Brain CT was negative. It did show an old lacunar infarct left thalamus. The perfusion study was nondiagnostic as expected, given the abnormality of the chest x-ray. Progress note dated August 19, 2024. 48-year-old female seen in consultation 2 days ago. The patient was admitted with a diagnosis of DVT, of the right lower extremity. In addition, she may have a urinary tract infection, as well as infection of the left foot. Currently, she is on 3 L of oxygen. She is getting saline at 75 cc an hour. She continues on Rocephin and daptomycin. She has been seen by infectious diseases. Current laboratory data includes a white count of 9.4, hemoglobin 10.6, hematocrit 35.8, and a platelet count of 236,000. Sodium 134, potassium 5, chlorides 103, CO2 18, BUN 61, creatinine 2.02. AST is 1165. ALT is 639. Wound culture, from the left foot, shows presumptive Staph aureus. 08/20/2024, I was asked to evaluate this patient on an emergent basis as the patient had significant decline in her condition over the past 24 hours. This is a 48-year-old female patient who came into the emergency department because of severe right lower extremity pain and recent fall from her wheelchair during transfers. She remains a very poor historian at the time of my evaluation, the patient was very lethargic and obtunded. She was having episodes of hypoglycemia since early childhood associate. The patient had a low blood sugar. At the same time, the patient had become severely acidotic. Blood work from earlier this morning showed a lactic acid of 9.2, serum bicarb was at 6 with an anion gap of 22, BS was 63 with a creatinine of 1.99 and the potassium level was at 5.6. The patient was given D50 on the medical floor. I made recommendation to transfer the patient to immediately to the intensive care unit. The patient was clearly hypotensive. I was not able to accurately measure the blood pressure. In the ICU, the patient was started on norepinephrine and 0.1 mcg/kg/min. Same time, a central line was established and arterial line was also established. Urine output is minimal at this point. The most recent blood gas from the art line showed a pH of 7.19 with a pCO2 of 28 and pO2 of 207 and this was done on 100% nonrebreather facemask. The patient's white cell count is currently at 16.3 with a hemoglobin 11.8 and a platelet count of 263. The cultures from the left foot is showing Staph aureus and Prevotella and the patient is currently on IV Rocephin and daptomycin per ID recommendations. She is obtunded, lethargic, no significant agitation. Able to communicate upon stimulation. She has a DVT of the right lower extremity and the patient is on anticoagulation with Eliquis. The Doppler of the lower extremity on the left showed no evidence of any DVT. The clot on the right is believed to be in the mid/distal popliteal vein. She does have changes consistent with soft tissue infection/cellulitis of the lower extremities. Noted extremities were essentially cold and clammy and agreement with underlying sepsis/septic shock. Noted the patient also has severe ca rdiomyopathy. Echocardiogram that was done on 01/30/2024 showed left ventricular ejection fraction estimated to be around 15 to 20%. She also had moderate RV dilatation and severe pulm hypertension with an estimated PA pressure of around 61. There is also moderate degree of mitral regurgitation moderate to severe tricuspid regurgitation. Bourne catheter is in place. No focal neurological deficit at this point in time. 08/21/2024, the patient is being seen for a follow-up. The patient was crit ically ill yesterday and for that reason the patient got transferred to the intensive care that she received aggressive fluid resuscitation. She received a total of 2 L of IV fluids in the form of normal saline and the patient remains on a bicarb infusion running at 150 cc an hour. Urine output remains low and the net fluid balance is +3.5 L over the past 24 hours. Pressors were discontinued this morning. She was on a low-dose norepinephrine earlier at 0.02 mcg/kg/min and this has been discontinued. She is on 2 L of oxygen by nasal cannula. No significant respiratory distress. No further episodes of hypoglycemia. Lactic acid level dropped from 11.4 down to 3.8. Awake and alert and communicating. The left lower extremity is significantly cold and questionable pulses in the posterior tibialis. WBC count is 11.7 with hemoglobin 10.5 and a platelet count of 252. Follow-up blood 2 L of O2 Showed pH of 7.34 with pCO2 of 40 and pO2 of 90. The Patient's Sodium Levels at 126, BUN Is 56 with a Creatinine of 2.2 and a Potassium of Is at 4.7. She Has a Shock Liver with AST of 2378, ALT of 1144 and Alkaline Phosphatase of 120. Albumin Level Is at 3.9. She Remains on Rocephin and Daptomycin. She Is Currently off Pressors. She Remains on Anticoagulation and She Remains on Eliq uis. 08/22/2024, the patient is being seen for a follow-up. Clinically, alert and awake and communicating. No significant respiratory distress and the patient is currently on 4 L of oxygen by nasal cannula. The cellulitis lower extremities is stable and the patient is currently on IV cefazolin and Flagyl. Antibiotic modification was done by infectious disease. Hemodynamically stable. The pat ient is currently off pressors. The lower extremity was evaluated by vascular surgery and there is pulses in the left lower extremity noted and no vascular intervention is recommended at this point in time. The patient was in a bicarb infusion and the patient will be switched to normal citrate of 50 cc an hour. In terms of the labs, the white cell count is at 9 with a hemoglobin 10.2 and a platelet count of 239. BUN is 60 with a creatinine of 12 sodium levels at 132. No focal neurological deficit at this point in time. Able to swallow. Able to take oral medication and the patient is on Eliquis for long-term anticoagulation. Objective - Vital Signs Vital signs: Vital Signs Temp 97.7 F 08/22/24 08:00 Pulse 98 08/22/24 08:11 Resp 20 08/22/24 08:00 BP 110/65 08/22/24 08:00 Pulse Ox 95 08/22/24 08:01 FiO2 100 08/20/24 18:00 Intake & Output 08/21/24 08/22/24 08/22/24 18:59 06:59 18:59 Intake Total 2533.779 1730 100 Output Total 311 437 40 Balance 2222.779 1293 60 Weight 153 kg 154.3 kg Intake: IV 1350 1250 100 DAPTOmycin 350 mg In 50 Sodium Chloride 0.9% 50 ml @ 100 mls/hr IVPB Q24HR@1200 [facility] Rx#: [id number] Dextrose 5% in Water 1, 1200 1200 100 000 ml @ 100 mls/hr IV . [id number] JAN with Sodium Bicarb (1 Meq/ml) 150 ml Rx#:[id number] ceFAZolin 2 gm In Sodium 50 50 Chloride 0.9% 50 ml @ 100 mls/hr IVPB Q8HR [facility] Rx# :[id number] cefTRIAXone 2 gm In 50 Sodium Chloride 0.9% 50 ml @ 100 mls/hr IVPB Q24HR [facility] Rx#:[id number] Intake, IV Titration 103.779 Amount Norepinephrine 4 mg In 103.779 Sodium Chloride 0.9% 250 ml @ 0.03 MCG/KG/MIN 15. 554 mls/hr IV .[id number] [facility] Rx#:[id number] Oral 1080 480 Output: Urine 311 437 40 Other: Voiding Method Incontinent External Catheter External Catheter ABP, PAP, CO, CI - Last Documented Arterial Blood Pressure 114/65 - Exam No acute distress, alert and communicating and the patient is currently on 2 L of O2 nasal cannula HEENT examination is grossly unremarkable. Mucous membranes are moist. No oral lesions. Neck supple. Full range of motion. No adenopathy thyromegaly or neck vein distention. Cardiovascular examination reveals regular rhythm rate. S1-S2 normal. No S3 or S4. No discernible murmur noted. Sounds are distant. Lungs reveal mostly clear breath sounds. Minimal rhonchi. No wheezes or crackles. The patient is not particularly cooperative, so examination was not particularly beneficial. Abdomen soft, and obese. Bowel sounds are noted. No mass. Extremities revealed a right below the knee amputation, and transmetatarsal amputation on the left. The patient has a deep wound along the plantar aspect of the transmetatarsal amputation left lower extremity. Right lower extremity has a below-knee amputation the extremity is quite swollen. There is evidence of cellulitis in both lower extremities. Pulses are present although diminished in the left lower extremity. Cellulitis is improving. Skin is without rash or lesion. Wound in the left foot at the site of a previous transmetatarsal amputation was noted. No active drainage. Bone is e xposed. Neurologic examination difficult to assess. No focal neurological deficit. - Labs CBC & Chem 7: 08/22/24 05:00 08/22/24 05:00 Labs: Abnormal Lab Results - Last 24 Hours (Table) 08/21/24 08/21/24 08/21/24 Range/Units 04:42 08:27 09:54 WBC 11.7 H (3.8-10.6) k/uL Hgb (11.4-16.0) gm/dL MCH (25.0-35.0) pg MCHC (31.0-37.0) g/dL RDW (11.5-15.5) % Neutrophils # (Manual) 9.71 H (1.3-7.7) k/uL Lymphocytes # (1.0-4.8) k/uL Monocytes # (Manual) 1.05 H (0-1.0) k/uL Nucleated RBCs 2 H (0-0) /100 WBC ABG pH 7.34 L (7.35-7.45) ABG O2 Saturation 97.2 H (94-97) % ABG Lactic Acid 3.8 H* (0.5-1.6) mmol/L Hemoglobin 10.4 L (11.4-16.0) gm/dL Sodium (137-145) mmol/L BUN (7-17) mg/dL Creatinine (0.52-1.04) mg/dL Glucose (74-99) mg/dL POC Glucose (mg/dL) (70-110) mg/dL Calcium (8.4-10.2) mg/dL 08/21/24 08/21/24 08/21/24 Range/Units 14:30 18:32 23:52 WBC (3.8-10.6) k/uL Hgb (11.4-16.0) gm/dL MCH (25.0-35.0) pg MCHC (31.0-37.0) g/dL RDW (11.5-15.5) % Neutrophils # (Manual) (1.3-7.7) k/uL Lymphocytes # (1.0-4.8) k/uL Monocytes # (Manual) (0-1.0) k/uL Nucleated RBCs (0-0) /100 WBC ABG pH (7.35-7.45) ABG O2 Saturation (94-97) % ABG Lactic Acid (0.5-1.6) mmol/L Hemoglobin (11.4-16.0) gm/dL Sodium (137-145) mmol/L BUN (7-17) mg/dL Creatinine (0.52-1.04) mg/dL Glucose (74-99) mg/dL POC Glucose (mg/dL) 133 H 143 H 150 H (70-110) mg/dL Calcium (8.4-10.2) mg/dL 08/22/24 08/22/24 08/22/24 Range/Units 05:00 05:00 06:49 WBC (3.8-10.6) k/uL Hgb 10.2 L (11.4-16.0) gm/dL MCH 23.9 L (25.0-35.0) pg MCHC 29.5 L (31.0-37.0) g/dL RDW 20.0 H (11.5-15.5) % Neutrophils # (Manual) (1.3-7.7) k/uL Lymphocytes # 0.9 L (1.0-4.8) k/uL Monocytes # (Manual) (0-1.0) k/uL Nucleated RBCs (0-0) /100 WBC ABG pH (7.35-7.45) ABG O2 Saturation (94-97) % ABG Lactic Acid (0.5-1.6) mmol/L Hemoglobin (11.4-16.0) gm/dL Sodium 132 L (137-145) mmol/L BUN 60 H (7-17) mg/dL Creatinine 2.00 H (0.52-1.04) mg/dL Glucose 136 H (74-99) mg/dL POC Glucose (mg/dL) 135 H (70-110) mg/dL Calcium 8.0 L (8.4-10.2) mg/dL Microbiology - Last 24 Hours (Table) 08/20/24 18:00 Urine Culture - Final Urine,Voided 08/16/24 16:32 Blood Culture - Final Blood 08/17/24 14:13 Anaerobic Culture - Final Foot - Left Prevotella species 08/17/24 14:13 Gram Stain - Final Foot - Left Wound Culture - Final Staphylococcus aureus Assessment and Plan Plan: septic shock, likely secondary to soft tissue infection/cellulitis in addition to a wound in the left foot at the site of a transmetatarsal amputation. The patient has a chronic stage IV ulcer that has no active drainage at this point in time. Cultures were noted and it is positive for Staph aureus and Prevotella. The patient is currently on IV cefazolin and Flagyl oral and he modynamically stable on no pressors. IV fluids will be kept on further and the patient will be placed on 50 cc an hour of saline. Acute lactic acidosis, improved and the lactic acid level is normalizing Severe anion gap metabolic acidosis, improved Acute hyperkalemia, improved , Acute hypoglycemia, likely secondary to above, improved Altered mentation secondary to above, improved Cellulitis of the lower extremities bilaterally, currently on a combination of IV cefazolin and oral Flagyl Acute on chronic kidney injury with secondary oliguria, consider underlying ATN, renal function continues to improve Right lower extremity DVT, on Eliquis Severe cardiomyopathy with an ejection fraction of 10 to 15% Severe pulmonary hypertension, likely group 2/3 pulmonary hypertension with severe dilatation of the RV Severe peripheral vascular disease, Prior right below the knee amputation, and left transmetatarsal amputation. Vascular surgery is on the case History of COPD/asthma. Diabetes mellitus, with ongoing episodes of hypoglycemia History of CVA. Coronary artery disease with prior history of myocardial infarction. History of hypertension. History of DVT. Obesity. Multiple drug-resistant infections. History of pacemaker implantation/defibrillator Plan: Keep the patient intensive care unit Acid-base status is improved Patient is currently on 2-4 L of O2 nasal cannula, chest x-ray showing cardiomegaly with mild pulm vascular congestion. Otherwise no other acute abnormalities have been noted. Mental status improved Lactic acid level is dropped IV fluids with normal citrate of 50 cc an hour Monitor blood sugar Continue cefazolin and oral Flagyl s Consult vascular surgery regarding left lower extremity Advance diet as tolerated Continue anticoagulation with Eliquis, Critically ill female patient was a full CODE STATUS.
[2024-08-22 11:43] LABS: Glucose,Whole Blood 118 mg/dL (70-110)
[2024-08-22 12:14] LABS: Albumin 3.4 g/dL (3.5-5.0); Bilirubin, Conjugated 0.5 mg/dL (0.0-0.3); Bilirubin, Delta 1.4 mg/dL (0.0-0.2); Bilirubin,Unconjugated 0.6 mg/dL (0.0-1.1); Total Bilirubin 2.5 mg/dL (0.2-1.3); Total Protein 6.9 g/dL (6.3-8.2)
--- NOTE | 2024-08-22 15:07 | P.PN ---
Subjective Progress Note Date: 08/22/24 Patient is a 48-year-old female with a past medical history of right lower extremity DVT maintained on Eliquis, right BKA, and left TMA who presented to the emergency department with severe right lower extremity pain and recent falls from her wheelchair during transfers. She is a poor historian at the time of the interview. She is very lethargic and falls asleep while answering questionsAO x 2. She rarely opens her eyes without stimulus. During the interview she is noted to have increased respiratory effort, respiratory rate of 10-12, and small sluggish pupils. Narcan was administered and patient became more alert and respiratory rate improved to 16, AOx3, now able to complete full sentences but remains with eyes closed unless prompted to open. Now she states that she has been having bilateral lower extremity pain worse on the right with erythema and swelling of the right lower extremity. She reports compliance with her medications. She also reports some abdominal pain with a few episodes of vomitingappears nonbloody. She endorses pain in the right lower extremity. She denies chest pain, shortness of breath, current abdominal pain, nausea, vomiting. Femur x-ray unremarkable. Bilateral lower extremity venous Doppler showed positive right lower extremity DVT femoral vein to popliteal vein. EKG shows pacing by AICD. WBC 6.1, hemoglobin 10.1, platelets 179, PT 13.3, INR 1.3, sodium 136, potassium 4.6, CO2 20, creatinine 1.73, GFR 34, lactic acid 2.2, phosphorus 4.6, CRP 2.9, TSH 27.6. Afebrile, normotensive, tachycardic in the low 100s saturating well on room air. 08/18. Patient seen sleeping in bed. Still with eyes closed while conversing but will open them when prompted. States she's had no energy for days. Chest x-ray 08/17: Cardiomegaly and mild pulmonary vascular congestion. Brain CT 08/17: No acute intracranial process, old lacunar infarct left thalamus. Pulmonary perfusion scan 08/18: No mismatch defect is evident, intermediate probability for acute pulmonary embolism. WBCs 10.8, hemoglobin 10.4, sodium 134, potassium 5.5, creatinine 2.78, hemoglobin A1c 6.5, N-terminal proBNP 21.9, procalcitonin 1.22. 08/19. Patient seen and examined. Ultrasound abdomen done showed no evidence for acute abdominal process, hepatic steatosis. Ultrasound of kidneys done showed nonobstructing right renal calculus. Patient stated she feels better, still has pain in the right BKA stump. 08/20. Patient seen laying in bed. Preliminary wound culture shows presumptive Staph aureus. Patient appears to be struggling to find her words/Labs: WBCs 16.3, hemoglobin 11.8, potassium 5.6, creatinine 1.99, total bilirubin 2.4. ABG: pH 7.26, pCO2 31, pO2 84, HCO3 14. Patient with worsening prognosis, transfer to ICU. 08/21. Patient seen and examined. Blood work done this morning showed WBC 11.7, hemoglobin 10.5, platelet count 252, sodium 126, potassium 4.7, BUN 53, creatinine 2.29 bilirubin 2.8, AST 2378, ALT 1144. Patient is lethargic, openin g eyes, answers question appropriately. 08/22. Patient see and examined. Labs: WBCs 9.0, hemoglobin 10.2, sodium 132, potassium 4.1, CO2 25, BUN 60, creatinine 2.00. She remains lethargic. Review of systems: ROS limited due to altered mental status. Pertinent positives and negatives as discussed in HPI. Physical examination: Vital signs are reviewed. General: No acute distress. Arousable, oriented x 2. Morbidly obese. HEENT: Head exam is unremarkable. Lateral third of eyebrows thinning. EOMI bilaterally. ACs patent. Nares patent. Lungs: Bilateral breath sounds present; no rhonchi, wheezes, or rales. Heart: Rate and rhythm are regular. S1-S2 present. No murmur/rub/gallops. Abdomen: Soft, nontender, nondistended. Bowel sounds present. Extremities: Right BKA with erythema. Left TMA with ulcer on bottom now covered with gauze and LLE cellulitis and warmth. Psych: Normal affect and mood. Cooperative. Assessment/Plan: Sepsis Septic shock Left lower extremity cellulitis Continue IV Rocephin and daptomycin Continue IV fluids Monitor CBC Monitor CMP Monitor vitals Infectious disease following Acute toxic metabolic encephalopathy secondary to medications Judicious use of pain medication Acute transaminitis Hepatic encephalopathy Avoid hepatotoxic agents Monitor LFTs Continue lactulose Acute kidney injury Metabolic acidosis Hyperkalemia Monitor CPK while on daptomycin Strict I's and O's Daily weights Monitor renal function Continue IV fluids Avoid nephrotoxic agents Nephrology following Right lower extremity deep vein thrombosis Continue Eliquis Surgery consultedno surgical intervention at this time Heme/onc consulted-restarted Eliquis Acute hypoxemic respiratory failure Continue oxygen supplementation Aggressive bronchopulmonary hygiene Continue breathing treatments Critical care following Hepatitis of undetermined etiology Possible chronic hepatitis Obtain hepatitis panel Left foot ulcer Absorptive silver, saline moist gauze, dry gauze, rolled gauze and secured with paper tape change Tuesday, Tuesday, Tuesday per wound care Hypothyroidism Continue levothyroxine 50 mcg daily Diabetes mellitus type 2 Monitor glucose Insulin sliding scale DVT prophylaxis: Eliquis Chronic conditions: Recurrent DVTs, systolic CHF, chronic kidney disease stage IIIb, diabetes mellitus type 2, seizures, history of AICD placement, history of cardiac catheterizations The impression and plan of care was discussed with resident and has been dictated by Rosanne Eldridge, as directed. Dr. Christo MD I have performed a history and physical examination and medical decision making of this patient, discussed the same with the dictator, and agree with the dictators assessment and plan as written. Based on total visit time, I have performed more than 50% of this visit. Objective - Vital Signs Vital signs: Vital Signs Temp 97.8 F 08/22/24 04:00 Pulse 99 08/22/24 05:00 Resp 14 08/22/24 05:00 BP 102/62 08/22/24 00:00 Pulse Ox 98 08/22/24 05:00 FiO2 100 08/20/24 18:00 Intake & Output 08/21/24 08/21/24 08/22/24 06:59 18:59 06:59 Intake Total 8245.172 7469.779 1630 Output Total 125 311 397 Balance 0940.792 1362.779 1233 Weight 153 kg 153 kg Intake: IV 1200 1350 1150 DAPTOmycin 350 mg In 50 Sodium Chloride 0.9% 50 ml @ 100 mls/hr IVPB Q24HR@1200 JAN Rx#: [id number] Dextrose 5% in Water 1, 1200 1200 1100 000 ml @ 100 mls/hr IV . [id number] JAN with Sodium Bicarb (1 Meq/ml) 150 ml Rx#:[id number] ceFAZolin 2 gm In Sodium 50 50 Chloride 0.9% 50 ml @ 100 mls/hr IVPB Q8HR JAN Rx# :[id number] cefTRIAXone 2 gm In 50 Sodium Chloride 0.9% 50 ml @ 100 mls/hr IVPB Q24HR JAN Rx#:[id number] Intake, IV Titration 21.169 103.779 Amount Norepinephrine 4 mg In 21.169 103.779 Sodium Chloride 0.9% 250 ml @ 0.03 MCG/KG/MIN 15. 554 mls/hr IV .[id number] JAN Rx#:[id number] Oral 1080 480 Output: Urine 125 311 397 Other: Voiding Method External Catheter Incontinent External Catheter External Catheter # Bowel Movements 1 ABP, PAP, CO, CI - Last Documented Arterial Blood Pressure 112/66 - Labs CBC & Chem 7: 08/26/24 07:16 08/29/24 05:09 Labs: Abnormal Lab Results - Last 24 Hours (Table) 08/21/24 08/21/24 08/21/24 Range/Units 04:42 04:42 08:27 WBC 11.7 H (3.8-10.6) k/uL Hgb 10.5 L (11.4-16.0) gm/dL MCH 24.3 L (25.0-35.0) pg MCHC 29.5 L (31.0-37.0) g/dL RDW 19.9 H (11.5-15.5) % Neutrophils # (Manual) 9.71 H (1.3-7.7) k/uL Lymphocytes # (1.0-4.8) k/uL Monocytes # (Manual) 1.05 H (0-1.0) k/uL Nucleated RBCs 2 H (0-0) /100 WBC ABG pH (7.35-7.45) ABG O2 Saturation (94-97) % ABG Lactic Acid 3.8 H* (0.5-1.6) mmol/L Hemoglobin (11.4-16.0) gm/dL Sodium 126 L (137-145) mmol/L Carbon Dioxide 17 L (22-30) mmol/L BUN 56 H (7-17) mg/dL Creatinine 2.29 H (0.52-1.04) mg/dL Glucose 129 H (74-99) mg/dL POC Glucose (mg/dL) (70-110) mg/dL Calcium (8.4-10.2) mg/dL Phosphorus 4.7 H (2.5-4.5) mg/dL Total Bilirubin 2.8 H (0.2-1.3) mg/dL AST 2378 H (14-36) U/L ALT 1144 H (4-34) U/L Creatine Kinase 214 H (30-135) U/L 08/21/24 08/21/24 08/21/24 Range/Units 09:54 14:30 18:32 WBC (3.8-10.6) k/uL Hgb (11.4-16.0) gm/dL MCH (25.0-35.0) pg MCHC (31.0-37.0) g/dL RDW (11.5-15.5) % Neutrophils # (Manual) (1.3-7.7) k/uL Lymphocytes # (1.0-4.8) k/uL Monocytes # (Manual) (0-1.0) k/uL Nucleated RBCs (0-0) /100 WBC ABG pH 7.34 L (7.35-7.45) ABG O2 Saturation 97.2 H (94-97) % ABG Lactic Acid (0.5-1.6) mmol/L Hemoglobin 10.4 L (11.4-16.0) gm/dL Sodium (137-145) mmol/L Carbon Dioxide (22-30) mmol/L BUN (7-17) mg/dL Creatinine (0.52-1.04) mg/dL Glucose (74-99) mg/dL POC Glucose (mg/dL) 133 H 143 H (70-110) mg/dL Calcium (8.4-10.2) mg/dL Phosphorus (2.5-4.5) mg/dL Total Bilirubin (0.2-1.3) mg/dL AST (14-36) U/L ALT (4-34) U/L Creatine Kinase (30-135) U/L 08/21/24 08/22/24 08/22/24 Range/Units 23:52 05:00 05:00 WBC (3.8-10.6) k/uL Hgb 10.2 L (11.4-16.0) gm/dL MCH 23.9 L (25.0-35.0) pg MCHC 29.5 L (31.0-37.0) g/dL RDW 20.0 H (11.5-15.5) % Neutrophils # (Manual) (1.3-7.7) k/uL Lymphocytes # 0.9 L (1.0-4.8) k/uL Monocytes # (Manual) (0-1.0) k/uL Nucleated RBCs (0-0) /100 WBC ABG pH (7.35-7.45) ABG O2 Saturation (94-97) % ABG Lactic Acid (0.5-1.6) mmol/L Hemoglobin (11.4-16.0) gm/dL Sodium 132 L (137-145) mmol/L Carbon Dioxide (22-30) mmol/L BUN 60 H (7-17) mg/dL Creatinine 2.00 H (0.52-1.04) mg/dL Glucose 136 H (74-99) mg/dL POC Glucose (mg/dL) 150 H (70-110) mg/dL Calcium 8.0 L (8.4-10.2) mg/dL Phosphorus (2.5-4.5) mg/dL Total Bilirubin (0.2-1.3) mg/dL AST (14-36) U/L ALT (4-34) U/L Creatine Kinase (30-135) U/L Microbiology - Last 24 Hours (Table) 08/16/24 16:32 Blood Culture - Final Blood 08/17/24 14:13 Anaerobic Culture - Final Foot - Left Prevotella species 08/17/24 14:13 Gram Stain - Final Foot - Left Wound Culture - Final Staphylococcus aureus
--- NOTE | 2024-08-22 17:13 | P.PN ---
Subjective Progress Note Date: 08/22/24 Principal diagnosis: Reason for follow-up is left diabetic foot ulcer and cellulitis Patient is a 48-year female with multiple comorbidities including diabetes mellitus the patient did have a right diabetic foot infection requiring right below the amputation and a chronic nonhealing wound to the left foot to be getting to the hospital with cellulitis to the left lower extremity and wound infection. On today's evaluation that is 08/22/2024,the patient remains to be afebrile, patient is on 3 L nasal cannula supplemental oxygen and denies any shortness of breath no chest pain or cough.Patient denies having any nausea or vomiting, no abdominal pain and no diarrhea has been reported, pain to the left lower extremity has decreased in intensity. Patient white count normalized to 9.0 creatinine is 2.0 Objective - Vital Signs Vital signs: Vital Signs Temp 97.7 F 08/22/24 12:00 Pulse 95 08/22/24 13:00 Resp 12 08/22/24 13:00 BP 115/78 08/22/24 09:00 Pulse Ox 97 08/22/24 13:00 FiO2 100 08/20/24 18:00 Intake & Output 08/21/24 08/22/24 08/22/24 18:59 06:59 18:59 Intake Total 2533.779 1730 550 Output Total 311 437 270 Balance 2222.779 1293 280 Weight 153 kg 154.3 kg Intake: IV 1350 1250 550 DAPTOmycin 350 mg In 50 Sodium Chloride 0.9% 50 ml @ 100 mls/hr IVPB Q24HR@1200 [facility] Rx#: [id number] Dextrose 5% in Water 1199 1200 300 000 ml @ 100 mls/hr IV . [id number] JAN with Sodium Bicarb (1 Meq/ml) 150 ml Rx#:[id number] Sodium Chloride 0.9% 1, 250 000 ml @ 50 mls/hr IV . Q20H JAN Rx#:[id number] ceFAZolin 2 gm In Sodium 50 50 Chloride 0.9% 50 ml @ 100 mls/hr IVPB Q8HR JAN Rx# :[id number] cefTRIAXone 2 gm In 50 Sodium Chloride 0.9% 50 ml @ 100 mls/hr IVPB Q24HR [facility] Rx#:[id number] Intake, IV Titration 103.779 Amount Norepinephrine 4 mg In 103.779 Sodium Chloride 0.9% 250 ml @ 0.03 MCG/KG/MIN 15. 554 mls/hr IV .[id number] [facility] Rx#:[id number] Oral 1080 480 Output: Urine 311 437 270 Other: Voiding Method Incontinent External Catheter Indwelling Catheter External Catheter # Bowel Movements 1 ABP, PAP, CO, CI - Last Documented Arterial Blood Pressure 104/62 - Exam GENERAL DESCRIPTION: Middle-age female lying in bed in no distress RESPIRATORY SYSTEM: Unlabored breathing , decreased breath sounds at bases HEART: S1 S2 regular rate and rhythm , ABDOMEN: Soft , no tenderness EXTREMITIES: Left leg not is cool to touch swelling persist - Labs CBC & Chem 7: 08/22/24 05:00 08/22/24 05:00 Labs: Abnormal Lab Results - Last 24 Hours (Table) 08/21/24 08/21/24 08/22/24 Range/Units 18:32 23:52 05:00 Hgb 10.2 L (11.4-16.0) gm/dL MCH 23.9 L (25.0-35.0) pg MCHC 29.5 L (31.0-37.0) g/dL RDW 20.0 H (11.5-15.5) % Lymphocytes # 0.9 L (1.0-4.8) k/uL Sodium (137-145) mmol/L BUN (7-17) mg/dL Creatinine (0.52-1.04) mg/dL Glucose (74-99) mg/dL POC Glucose (mg/dL) 143 H 150 H (70-110) mg/dL Calcium (8.4-10.2) mg/dL Total Bilirubin (0.2-1.3) mg/dL Conjugated Bilirubin (0.0-0.3) mg/dL Delta Bilirubin (0.0-0.2) mg/dL AST (14-36) U/L ALT (4-34) U/L Albumin (3.5-5.0) g/dL 08/22/24 08/22/24 08/22/24 Range/Units 05:00 05:00 06:49 Hgb (11.4-16.0) gm/dL MCH (25.0-35.0) pg MCHC (31.0-37.0) g/dL RDW (11.5-15.5) % Lymphocytes # (1.0-4.8) k/uL Sodium 132 L (137-145) mmol/L BUN 60 H (7-17) mg/dL Creatinine 2.00 H (0.52-1.04) mg/dL Glucose 136 H (74-99) mg/dL POC Glucose (mg/dL) 135 H (70-110) mg/dL Calcium 8.0 L (8.4-10.2) mg/dL Total Bilirubin 2.5 H (0.2-1.3) mg/dL Conjugated Bilirubin 0.5 H (0.0-0.3) mg/dL Delta Bilirubin 1.4 H (0.0-0.2) mg/dL AST 1583 H (14-36) U/L ALT 1009 H (4-34) U/L Albumin 3.4 L (3.5-5.0) g/dL 08/22/24 Range/Units 11:42 Hgb (11.4-16.0) gm/dL MCH (25.0-35.0) pg MCHC (31.0-37.0) g/dL RDW (11.5-15.5) % Lymphocytes # (1.0-4.8) k/uL Sodium (137-145) mmol/L BUN (7-17) mg/dL Creatinine (0.52-1.04) mg/dL Glucose (74-99) mg/dL POC Glucose (mg/dL) 118 H (70-110) mg/dL Calcium (8.4-10.2) mg/dL Total Bilirubin (0.2-1.3) mg/dL Conjugated Bilirubin (0.0-0.3) mg/dL Delta Bilirubin (0.0-0.2) mg/dL AST (14-36) U/L ALT (4-34) U/L Albumin (3.5-5.0) g/dL Microbiology - Last 24 Hours (Table) 08/20/24 18:00 Urine Culture - Final Urine,Voided 08/16/24 16:32 Blood Culture - Final Blood 08/17/24 14:13 Anaerobic Culture - Final Foot - Left Prevotella species Assessment and Plan (1) Cellulitis of left foot Current Visit: Yes Status: Acute Code(s): L03.116 - CELLULITIS OF LEFT LOWER LIMB SNOMED Code(s): 55624502356364164 (2) Allergy to multiple antibiotics Current Visit: No Status: Acute Code(s): Z88.1 - ALLERGY STATUS TO OTHER ANTIBIOTIC AGENTS SNOMED Code(s): 441347165 (3) Diabetic ulcer of left foot Current Visit: No Status: Acute Code(s): E11.621 - TYPE 2 DIABETES MELLITUS WITH FOOT ULCER; L97.529 - NON-PRESSURE CHRONIC ULCER OTH PRT LEFT FOOT W UNSP SEVERITY SNOMED Code(s): 047453226 Plan: 1patient with a chronic nonhealing wound to the left foot plantar aspect now with evidence of left lower extremity cellulitis likely being treated for this episode of cellulitis and will need to cover for the gram-positive as well as gram-negative pathogen. 2patient with multiple antibiotic ALLERGIES that would limit the number of antibiotic safe to use 3local wound culture currently growing MSSA and Prevotella 4-patient did have cold left lower extremity vascular surgery has been consulted mentioning possible related to pressors and did have improvement no surgical intervention 5patient to continue with cefazolin and Flagyl and monitor clinical course closely Dictation was produced using [employer] dictation software. please excuse any grammatical, word or spelling errors. Time with Patient: Less than 30
[2024-08-23 00:03] LABS: Glucose,Whole Blood 258 mg/dL (70-110)
[2024-08-23 05:11] LABS: Anisocytosis Slight; Basophils % (A) 0 %; Eosinophils # (A) 0.3 k/uL (0-0.7); Eosinophils % (A) 3 %; HCT 35.7 % (34.0-46.0); HGB 10.7 gm/dL (11.4-16.0); Hypochromasia Marked; Lymphocytes % (A) 9 %; MCH 24.3 pg (25.0-35.0); MCV 80.9 fL (80.0-100.0); Mean Platelet Volume 9.7; Microcytosis Slight; Monocytes # (A) 0.6 k/uL (0-1.0); Monocytes % (A) 6 %; Neutrophils # (A) 8.3 k/uL (1.3-7.7); Neutrophils % (A) 79 %; Platelet Count 187 k/uL (150-450); Poikilocytosis Moderate; RBC 4.42 m/uL (3.80-5.40); WBC 10.4 k/uL (3.8-10.6)
[2024-08-23 05:24] LABS: ALT 490 U/L (4-34); African American GFR (CKD) 44 (>60 ml/min/1.73 sqM); Anion Gap 7 mmol/L; Blood Urea Nitrogen 54 mg/dL (7-17); Carbon Dioxide 23 mmol/L (22-30); Chloride 101 mmol/L (98-107); Glucose 111 mg/dL (74-99); Non-African American GFR(CKD) 38 (>60 ml/min/1.73 sqM); Potassium 3.7 mmol/L (3.5-5.1); Sodium 131 mmol/L (137-145)
[2024-08-23 05:53] LABS: AST 978 U/L (14-36)
[2024-08-23] MEDS ORDERED: Potassium Replacement Protocol 1 EACH MISC MISCELLANE PRN (06:10)
[2024-08-23 06:11] LABS: Glucose,Whole Blood 114 mg/dL (70-110)
[2024-08-23] MEDS: POTASSIUM CHLORIDE ER 20 MEQ TAB.ER PO SCH (06:30)
--- NOTE | 2024-08-23 07:38 | XR ---
EXAMINATION TYPE: XR chest 1V DATE OF EXAM: 08/23/2024 COMPARISON: 08/22/2024 HISTORY: Line placement TECHNIQUE: Single frontal view of the chest is obtained. FINDINGS: Stable central line and multi lead cardiac device. Limited inspiration with bilateral subs egmental consolidation. No pneumothorax. Cardiomegaly stable. No sizable pleural effusion. IMPRESSION: Stable bilateral areas of subsegmental atelectasis or infiltrate. [facility], , 08/23/2024 7:36 AM
--- NOTE | 2024-08-23 10:30 | P.PN ---
Subjective Patient seen in follow-up for acute kidney injury. Resting in bed. Renal function improving. Nonoliguric. Oral intake is good. Vital signs are stable. General: No acute distress. HEENT: Head exam is unremarkable. On nasal cannula. LUNGS: No audible rhonchi or wheezes. HEART: Rate and Rhythm are regular. ABDOMEN: Obese, nontender. EXTREMITITES: Right BKA noted. Transmetatarsal amputation on the left noted. Erythema noted. Objective - Vital Signs Vital signs: Vital Signs Temp 97.7 F 08/23/24 08:00 Pulse 92 08/23/24 09:44 Resp 14 08/23/24 08:00 BP 113/98 08/23/24 08:00 Pulse Ox 98 08/23/24 09:00 FiO2 100 08/20/24 18:00 Intake & Output 08/22/24 08/23/24 08/23/24 18:59 06:59 18:59 Intake Total 800 2140 100 Output Total 470 670 100 Balance 330 1470 0 Weight 154.3 kg 156 kg Intake: IV 800 700 100 Dextrose 5% in Water 1, 300 000 ml @ 100 mls/hr IV . [id number] JAN with Sodium Bicarb (1 Meq/ml) 150 ml Rx#:[id number] Sodium Chloride 0.9% 1, 500 600 100 000 ml @ 50 mls/hr IV . Q20H JAN Rx#:[id number] ceFAZolin 2 gm In Sodium 100 Chloride 0.9% 50 ml @ 100 mls/hr IVPB Q8HR JAN Rx# :[id number] Oral 1440 Output: Urine 470 670 100 Other: Voiding Method Indwelling Catheter Indwelling Catheter # Bowel Movements 1 1 ABP, PAP, CO, CI - Last Documented Arterial Blood Pressure 111/62 - Labs CBC & Chem 7: 08/23/24 04:54 08/23/24 04:54 Labs: Abnormal Lab Results - Last 24 Hours (Table) 08/22/24 08/22/24 08/23/24 Range/Units 05:00 11:42 00:01 Hgb (11.4-16.0) gm/dL MCH (25.0-35.0) pg MCHC (31.0-37.0) g/dL RDW (11.5-15.5) % Neutrophils # (1.3-7.7) k/uL Sodium (137-145) mmol/L BUN (7-17) mg/dL Creatinine (0.52-1.04) mg/dL Glucose (74-99) mg/dL POC Glucose (mg/dL) 118 H 258 H (70-110) mg/dL Calcium (8.4-10.2) mg/dL Total Bilirubin 2.5 H (0.2-1.3) mg/dL Conjugated Bilirubin 0.5 H (0.0-0.3) mg/dL Delta Bilirubin 1.4 H (0.0-0.2) mg/dL AST 1583 H (14-36) U/L ALT 1009 H (4-34) U/L Albumin 3.4 L (3.5-5.0) g/dL 08/23/24 08/23/24 08/23/24 Range/Units 04:54 04:54 06:10 Hgb 10.7 L (11.4-16.0) gm/dL MCH 24.3 L (25.0-35.0) pg MCHC 30.0 L (31.0-37.0) g/dL RDW 20.0 H (11.5-15.5) % Neutrophils # 8.3 H (1.3-7.7) k/uL Sodium 131 L (137-145) mmol/L BUN 54 H (7-17) mg/dL Creatinine 1.58 H (0.52-1.04) mg/dL Glucose 111 H (74-99) mg/dL POC Glucose (mg/dL) 114 H (70-110) mg/dL Calcium 8.0 L (8.4-10.2) mg/dL Total Bilirubin (0.2-1.3) mg/dL Conjugated Bilirubin (0.0-0.3) mg/dL Delta Bilirubin (0.0-0.2) mg/dL AST 978 H (14-36) U/L ALT 490 H (4-34) U/L Albumin (3.5-5.0) g/dL Microbiology - Last 24 Hours (Table) 08/20/24 18:00 Urine Culture - Final Urine,Voided Assessment and Plan Assessment: 1. Acute kidney injury secondary to ATN secondary to septic shock. Baseline creatinine near 1. Renal function improving. Creatinine 1.58. Nonoliguric. No hydronephrosis noted on kidney ultrasound. Left kidney not visualized due to patient body habitus. 2. Hyperkalemia due to YOLA and acidosis. Improved. 3. AGMA from lactic acidosis with non-anion gap metabolic acidosis from IVF with respiratory acidosis. Status post bicarb drip. Improved. 4. CKD stage IIIa 2/2 cardiorenal syndrome. Cr baseline 1-1.1 5. CHFrEF (15-20%). 6. Hyponatremia secondary to acute kidney injury. Stable. 7. LLE cellulitis with DVT on antibiotics. Also on anticoagulation. 8. Type 2 Diabetes Plan: Hep-Lock IV fluids. Encouraged oral intake. Avoid nephrotoxins. Continue to monitor renal function and urine output. Phosphorus level 4.7 dated August 21, 2024.
[2024-08-23 11:42] LABS: Glucose,Whole Blood 138 mg/dL (70-110)
--- NOTE | 2024-08-23 11:44 | P.PN ---
Subjective Progress Note Date: 08/23/24 Principal diagnosis: Left foot wound, cellulitis Patient is seen and examined today as a follow-up. She remains in the ICU. No acute changes through the night. She is awake and alert. Left lower extremity is pink and warm. States she has chronic pain down bilateral lower extremities still quite a bit of swelling and redness on the left lower extremity. Objective - Vital Signs Vital signs: Vital Signs Temp 97.7 F 08/23/24 08:00 Pulse 92 08/23/24 09:44 Resp 14 08/23/24 08:00 BP 113/98 08/23/24 08:00 Pulse Ox 98 08/23/24 09:00 FiO2 100 08/20/24 18:00 Intake & Output 08/22/24 08/23/24 08/23/24 18:59 06:59 18:59 Intake Total 800 2140 100 Output Total 470 670 100 Balance 330 1470 0 Weight 154.3 kg 156 kg Intake: IV 800 700 100 Dextrose 5% in Water 1, 300 000 ml @ 100 mls/hr IV . [id number] JAN with Sodium Bicarb (1 Meq/ml) 150 ml Rx#:[id number] Sodium Chloride 0.9% 1, 500 600 100 000 ml @ 50 mls/hr IV . Q20H JAN Rx#:[id number] ceFAZolin 2 gm In Sodium 100 Chloride 0.9% 50 ml @ 100 mls/hr IVPB Q8HR JAN Rx# :[id number] Oral 1440 Output: Urine 470 670 100 Other: Voiding Method Indwelling Catheter Indwelling Catheter # Bowel Movements 1 1 ABP, PAP, CO, CI - Last Documented Arterial Blood Pressure 111/62 - Exam General appearance: The patient is alert, oriented, appears in no acute distress. HET: Head is normocephalic and atraumatic. Neck: Supple. Abdomen: Soft, morbidly obese, nondistended. Extremities: Right previous BKA well-healed with swelling and erythema. Left previous TMA well-healed. Left foot pink, warm to the touch. Erythema up patient's cat, marked. Wound to plantar aspect without any drainage, redness, no signs of infection. Palpable PT pulse, PT and DP signals present. Sensor imotor intact. Neurological: No focal deficits. Awake, alert and oriented. - Labs CBC & Chem 7: 08/23/24 04:54 08/23/24 04:54 Labs: Abnormal Lab Results - Last 24 Hours (Table) 08/22/24 08/22/24 08/23/24 Range/Units 05:00 11:42 00:01 Hgb (11.4-16.0) gm/dL MCH (25.0-35.0) pg MCHC (31.0-37.0) g/dL RDW (11.5-15.5) % Neutrophils # (1.3-7.7) k/uL Sodium (137-145) mmol/L BUN (7-17) mg/dL Creatinine (0.52-1.04) mg/dL Glucose (74-99) mg/dL POC Glucose (mg/dL) 118 H 258 H (70-110) mg/dL Calcium (8.4-10.2) mg/dL Total Bilirubin 2.5 H (0.2-1.3) mg/dL Conjugated Bilirubin 0.5 H (0.0-0.3) mg/dL Delta Bilirubin 1.4 H (0.0-0.2) mg/dL AST 1583 H (14-36) U/L ALT 1009 H (4-34) U/L Albumin 3.4 L (3.5-5.0) g/dL 08/23/24 08/23/24 08/23/24 Range/Units 04:54 04:54 06:10 Hgb 10.7 L (11.4-16.0) gm/dL MCH 24.3 L (25.0-35.0) pg MCHC 30.0 L (31.0-37.0) g/dL RDW 20.0 H (11.5-15.5) % Neutrophils # 8.3 H (1.3-7.7) k/uL Sodium 131 L (137-145) mmol/L BUN 54 H (7-17) mg/dL Creatinine 1.58 H (0.52-1.04) mg/dL Glucose 111 H (74-99) mg/dL POC Glucose (mg/dL) 114 H (70-110) mg/dL Calcium 8.0 L (8.4-10.2) mg/dL Total Bilirubin (0.2-1.3) mg/dL Conjugated Bilirubin (0.0-0.3) mg/dL Delta Bilirubin (0.0-0.2) mg/dL AST 978 H (14-36) U/L ALT 490 H (4-34) U/L Albumin (3.5-5.0) g/dL Microbiology - Last 24 Hours (Table) 08/20/24 18:00 Urine Culture - Final Urine,Voided Assessment and Plan Assessment: 1. Cold left foot resolved. Likely secondary to pressors. 2. Left lower extremity peripheral arterial disease likely chronic 3. Left plantar foot wound, does not appear to be infected 4. Sepsis 5. Cardiomyopathy EF 10 to 15% 6. Pulmonary hypertension 7. Right lower extremity DVT on Eliquis 8. Previous right lower extremity DVT 9. Morbid obesity 10. Previous right BKA, left TMA 11. Diabetes mellitus 12. Seizure disorder Plan: 1. Lower extremity arterial ultrasound ordered and reviewed. 2. Left lower extremity perfusion improved. 3. Continue local wound care as ordered, left foot wound does not appear infected requiring any surgical intervention at this time 4. Recommend outpatient follow-up with vascular surgery, will discuss possible angiogram at that time. 5. Patient would benefit from formal wound care as outpatient with wound care center Thank you for this consultation, we will sign off at this time. The impression and plan of care has been dictated as directed. Dr. Bourne I performed a history and examination of this patient, discussed the same with the dictator. I agree with the dictator's note ,documented as a scribe. Any additional findings or plans will be noted.
[2024-08-23] MEDS: SACUBITRIL/VALSARTAN 24 MG-26 MG TABLET PO SCH (12:17)
--- NOTE | 2024-08-23 13:55 | P.PN ---
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 She is a poor historian at the time of the interview. She is very lethargic and falls asleep while answering questionsAO x 2. She rarely opens her eyes without stimulus. During the interview she is noted to have increased respiratory effort, respiratory rate of 10-12, and small sluggish pupils. Narcan was administered and patient became more alert and respiratory rate improved to 16, AOx3, now able to complete full sentences but remains with eyes closed unless prompted to open. Now she states that she has been having bilateral lower extremity pain worse on the right with erythema and swelling of the right lower extremity. She reports compliance with her medications. She also reports some abdominal pain with a few episodes of vomitingappears nonbloody. She endorses pain in the right lower extremity. She denies chest pain, shortness of breath, current abdominal pain, nausea, vomiting. Femur x-ray unremarkable. Bilateral lower extremity venous Doppler showed positive right lower extremity DVT femoral vein to popliteal vein. EKG shows pacing by AICD. WBC 6.1, hemoglobin 10.1, platelets 179, PT 13.3, INR 1.3, sodium 136, potassium 4.6, CO2 20, creatinine 1.73, GFR 34, lactic acid 2.2, phosphorus 4.6, CRP 2.9, TSH 27.6. Afebrile, normotensive, tachycardic in the low 100s saturating well on room air. 08/18. Patient seen sleeping in bed. Still with eyes closed while conversing but will open them when prompted. States she's had no energy for days. Chest x-ray 08/17: Cardiomegaly and mild pulmonary vascular congestion. Brain CT 08/17: No acute intracranial process, old lacunar infarct left thalamus. Pulmonary perfusion scan 08/18: No mismatch defect is evident, intermediate probability for acute pulmonary embolism. WBCs 10.8, hemoglobin 10.4, sodium 134, potassium 5.5, creatinine 2.78, hemoglobin A1c 6.5, N-terminal proBNP 21.9, procalcitonin 1.22. 08/19. Patient seen and examined. Ultrasound abdomen done showed no evidence for acute abdominal process, hepatic steatosis. Ultrasound of kidneys done showed nonobstructing right renal calculus. Patient stated she feels better, still has pain in the right BKA stump. 08/20. Patient seen laying in bed. Preliminary wound culture shows presumptive Staph aureus. Patient appears to be struggling to find her words/Labs: WBCs 16.3, hemoglobin 11.8, potassium 5.6, creatinine 1.99, total bilirubin 2.4. ABG: pH 7.26, pCO2 31, pO2 84, HCO3 14. Patient with worsening prognosis, transfer to ICU. 08/21. Patient seen and examined. Blood work done this morning showed WBC 11.7, hemoglobin 10.5, platelet count 252, sodium 126, potassium 4.7, BUN 53, creatinine 2.29 bilirubin 2.8, AST 2378, ALT 1144. Patient is lethargic, openin g eyes, answers question appropriately. 08/22. Patient seen and examined. Labs: WBCs 9.0, hemoglobin 10.2, sodium 132, potassium 4.1, CO2 25, BUN 60, creatinine 2.00. She remains lethargic. 08/23. Patient seen and examined. Labs: WBCs10.4, hemoglobin 10.7, sodium 131, potassium 3.7, BUN 54, creatinine 1.58, AST 978, ALT 490. Review of systems: ROS limited due to altered mental status. Pertinent positives and negatives as discussed in HPI. Physical examination: Vital signs are reviewed. General: No acute distress. Arousable, oriented x 4. Morbidly obese. HEENT: Head exam is unremarkable. Lateral third of eyebrows thinning. EOMI bilaterally. ACs patent. Nares patent. Lungs: Bilateral breath sounds present; no rhonchi, wheezes, or rales. Heart: Rate and rhythm are regular. S1-S2 present. No murmur/rub/gallops. Abdomen: Soft, nontender, nondistended. Bowel sounds present. Extremities: Right BKA with erythema. Left TMA with ulcer on bottom now covered with gauze and LLE cellulitis and warmth. Psych: Normal affect and mood. Cooperative. Assessment/Plan: Sepsis, resolved Septic shock, resolved Left lower extremity cellulitis Continue IV Rocephin and daptomycin Continue IV fluids Monitor CBC Monitor CMP Monitor vitals Infectious disease following Acute toxic metabolic encephalopathy secondary to medications Judicious use of pain medication Acute transaminitis, improving Hepatic encephalopathy Avoid hepatotoxic agents Monitor LFTs Continue lactulose Acute kidney injury Metabolic acidosis Hyperkalemia Monitor CPK while on daptomycin Strict I's and O's Daily weights Monitor renal function Continue IV fluids Avoid nephrotoxic agents Nephrology following Right lower extremity deep vein thrombosis Continue Eliquis Surgery consultedno surgical intervention at this time Heme/onc consulted-restarted Eliquis Acute hypoxemic respiratory failure Continue oxygen supplementation Aggressive bronchopulmonary hygiene Continue breathing treatments Critical care following Left foot ulcer Absorptive silver, saline moist gauze, dry gauze, rolled gauze and secured with paper tape change Tuesday, Tuesday, Tuesday per wound care Hypothyroidism Continue levothyroxine 50 mcg daily Diabetes mellitus type 2 Monitor glucose Insulin sliding scale DVT prophylaxis: Eliquis Chronic conditions: Recurrent DVTs, systolic CHF, chronic kidney disease stage IIIb, diabetes mellitus type 2, seizures, history of AICD placement, history of cardiac catheterizations Objective - Vital Signs Vital signs: Vital Signs Temp 97.7 F 08/23/24 04:00 Pulse 92 08/23/24 06:00 Resp 12 08/23/24 06:00 BP 106/75 08/23/24 03:00 Pulse Ox 96 08/23/24 06:00 FiO2 100 08/20/24 18:00 Intake & Output 08/22/24 08/22/24 08/23/24 06:59 18:59 06:59 Intake Total 3137 015 3554 Output Total 437 470 670 Balance 0735 374 0829 Weight 154.3 kg 156 kg Intake: IV 1250 800 700 Dextrose 5% in Water 1, 1200 300 000 ml @ 100 mls/hr IV . [id number] JAN with Sodium Bicarb (1 Meq/ml) 150 ml Rx#:[id number] Sodium Chloride 0.9% 1, 500 600 000 ml @ 50 mls/hr IV . Q20H JAN Rx#:[id number] ceFAZolin 2 gm In Sodium 50 100 Chloride 0.9% 50 ml @ 100 mls/hr IVPB Q8HR JAN Rx# :[id number] Oral 480 1440 Output: Urine 437 470 670 Other: Voiding Method Indwelling Catheter Indwelling Catheter Indwelling Catheter # Bowel Movements 1 1 ABP, PAP, CO, CI - Last Documented Arterial Blood Pressure 112/63 - Labs CBC & Chem 7: 08/23/24 04:54 08/23/24 04:54 Labs: Abnormal Lab Results - Last 24 Hours (Table) 08/22/24 08/22/24 08/22/24 Range/Units 05:00 06:49 11:42 Hgb (11.4-16.0) gm/dL MCH (25.0-35.0) pg MCHC (31.0-37.0) g/dL RDW (11.5-15.5) % Neutrophils # (1.3-7.7) k/uL Sodium (137-145) mmol/L BUN (7-17) mg/dL Creatinine (0.52-1.04) mg/dL Glucose (74-99) mg/dL POC Glucose (mg/dL) 135 H 118 H (70-110) mg/dL Calcium (8.4-10.2) mg/dL Total Bilirubin 2.5 H (0.2-1.3) mg/dL Conjugated Bilirubin 0.5 H (0.0-0.3) mg/dL Delta Bilirubin 1.4 H (0.0-0.2) mg/dL AST 1583 H (14-36) U/L ALT 1009 H (4-34) U/L Albumin 3.4 L (3.5-5.0) g/dL 08/23/24 08/23/24 08/23/24 Range/Units 00:01 04:54 04:54 Hgb 10.7 L (11.4-16.0) gm/dL MCH 24.3 L (25.0-35.0) pg MCHC 30.0 L (31.0-37.0) g/dL RDW 20.0 H (11.5-15.5) % Neutrophils # 8.3 H (1.3-7.7) k/uL Sodium 131 L (137-145) mmol/L BUN 54 H (7-17) mg/dL Creatinine 1.58 H (0.52-1.04) mg/dL Glucose 111 H (74-99) mg/dL POC Glucose (mg/dL) 258 H (70-110) mg/dL Calcium 8.0 L (8.4-10.2) mg/dL Total Bilirubin (0.2-1.3) mg/dL Conjugated Bilirubin (0.0-0.3) mg/dL Delta Bilirubin (0.0-0.2) mg/dL AST 978 H (14-36) U/L ALT 490 H (4-34) U/L Albumin (3.5-5.0) g/dL 08/23/24 Range/Units 06:10 Hgb (11.4-16.0) gm/dL MCH (25.0-35.0) pg MCHC (31.0-37.0) g/dL RDW (11.5-15.5) % Neutrophils # (1.3-7.7) k/uL Sodium (137-145) mmol/L BUN (7-17) mg/dL Creatinine (0.52-1.04) mg/dL Glucose (74-99) mg/dL POC Glucose (mg/dL) 114 H (70-110) mg/dL Calcium (8.4-10.2) mg/dL Total Bilirubin (0.2-1.3) mg/dL Conjugated Bilirubin (0.0-0.3) mg/dL Delta Bilirubin (0.0-0.2) mg/dL AST (14-36) U/L ALT (4-34) U/L Albumin (3.5-5.0) g/dL Microbiology - Last 24 Hours (Table) 08/20/24 18:00 Urine Culture - Final Urine,Voided
--- NOTE | 2024-08-23 15:22 | P.PN ---
Subjective Progress Note Date: 08/23/24 Principal diagnosis: Reason for follow-up is left diabetic foot ulcer and cellulitis Patient is a 48-year female with multiple comorbidities including diabetes mellitus the patient did have a right diabetic foot infection requiring right below the amputation and a chronic nonhealing wound to the left foot to be getting to the hospital with cellulitis to the left lower extremity and wound infection. On today's evaluation that is 08/23/2024, the patient continues to be afebrile, the patient is on 2 L nasal cannula oxygen and breathing comfortably, the Pt denies having any chest pain or cough, the patient denies having any abdominal pain no vomiting or any diarrhea has been reported by the nursing staff, denies any worsening pain to the left lower extremity. The patient white count is 10.4, creatinine is 1.58 Objective - Vital Signs Vital signs: Vital Signs Temp 98.1 F 08/23/24 12:00 Pulse 94 08/23/24 13:00 Resp 15 08/23/24 13:00 BP 108/66 08/23/24 13:00 Pulse Ox 97 08/23/24 13:00 FiO2 100 08/20/24 18:00 Intake & Output 08/22/24 08/23/24 08/23/24 18:59 06:59 18:59 Intake Total 800 2140 300 Output Total 470 670 340 Balance 330 1470 -40 Weight 154.3 kg 156 kg Intake: IV 800 700 300 Dextrose 5% in Water 1, 300 000 ml @ 100 mls/hr IV . [id number] JAN with Sodium Bicarb (1 Meq/ml) 150 ml Rx#:[id number] Sodium Chloride 0.9% 1, 500 600 250 000 ml @ 50 mls/hr IV . Q20H JAN Rx#:[id number] ceFAZolin 2 gm In Sodium 50 Chloride 0.9% 50 ml @ 100 mls/hr IVPB Q8H JAN Rx#: [id number] ceFAZolin 2 gm In Sodium 100 Chloride 0.9% 50 ml @ 100 mls/hr IVPB Q8HR JAN Rx# :[id number] Oral 1440 Output: Urine 470 670 340 Other: Voiding Method Indwelling Catheter Indwelling Catheter Indwelling Catheter # Bowel Movements 1 1 1 ABP, PAP, CO, CI - Last Documented Arterial Blood Pressure 111/62 - Exam GENERAL DESCRIPTION: Middle-age female lying in bed in no distress RESPIRATORY SYSTEM: Unlabored breathing , decreased breath sounds at bases HEART: S1 S2 regular rate and rhythm , ABDOMEN: Soft , no tenderness EXTREMITIES: Left leg not is cool to touch swelling persist - Labs CBC & Chem 7: 08/23/24 04:54 08/23/24 04:54 Labs: Abnormal Lab Results - Last 24 Hours (Table) 08/23/24 08/23/24 08/23/24 Range/Units 00:01 04:54 04:54 Hgb 10.7 L (11.4-16.0) gm/dL MCH 24.3 L (25.0-35.0) pg MCHC 30.0 L (31.0-37.0) g/dL RDW 20.0 H (11.5-15.5) % Neutrophils # 8.3 H (1.3-7.7) k/uL Sodium 131 L (137-145) mmol/L BUN 54 H (7-17) mg/dL Creatinine 1.58 H (0.52-1.04) mg/dL Glucose 111 H (74-99) mg/dL POC Glucose (mg/dL) 258 H (70-110) mg/dL Calcium 8.0 L (8.4-10.2) mg/dL AST 978 H (14-36) U/L ALT 490 H (4-34) U/L 08/23/24 08/23/24 Range/Units 06:10 11:40 Hgb (11.4-16.0) gm/dL MCH (25.0-35.0) pg MCHC (31.0-37.0) g/dL RDW (11.5-15.5) % Neutrophils # (1.3-7.7) k/uL Sodium (137-145) mmol/L BUN (7-17) mg/dL Creatinine (0.52-1.04) mg/dL Glucose (74-99) mg/dL POC Glucose (mg/dL) 114 H 138 H (70-110) mg/dL Calcium (8.4-10.2) mg/dL AST (14-36) U/L ALT (4-34) U/L Assessment and Plan (1) Cellulitis of left foot Current Visit: Yes Status: Acute Code(s): L03.116 - CELLULITIS OF LEFT LOWER LIMB SNOMED Code(s): 43207232391384990 (2) Allergy to multiple antibiotics Current Visit: No Status: Acute Code(s): Z88.1 - ALLERGY STATUS TO OTHER ANTIBIOTIC AGENTS SNOMED Code(s): 367544541 (3) Diabetic ulcer of left foot Current Visit: No Status: Acute Code(s): E11.621 - TYPE 2 DIABETES MELLITUS WITH FOOT ULCER; L97.529 - NON-PRESSURE CHRONIC ULCER OTH PRT LEFT FOOT W UNSP SEVERITY SNOMED Code(s): 800058812 Plan: 1patient with a chronic nonhealing wound to the left foot plantar aspect now with evidence of left lower extremity cellulitis likely being treated for this episode of cellulitis and will need to cover for the gram-positive as well as gram-negative pathogen. 2patient with multiple antibiotic ALLERGIES that would limit the number of antibiotic safe to use 3local wound culture currently growing MSSA and Prevotella 4-patient did have cold left lower extremity vascular surgery has been consulted mentioning possible related to pressors and did have improvement no surgical intervention 5patient remains to be afebrile patient white count has normalized, patient will continue with cefazolin and Flagyl and monitor clinical course closely Dictation was produced using [employer] dictation software. please excuse any grammatical, word or spelling errors. Time with Patient: Less than 30
--- NOTE | 2024-08-23 15:47 | P.PN ---
Subjective Progress Note Date: 08/23/24 DVT, cellulitis. Pulmonary consult dated August 17, 2024. 48-year-old female very poor historian, who apparently presented to the emergency department on August 16, at about 3:45 in the afternoon. The patient apparently came in complaining of bilateral lower extremity pain, and swelling. The patient denied any respiratory issues including shortness of breath, cough, wheezing, chest tightness, and phlegm production. The patient has a previous history of a right BKA, and a left trans metatarsal amputation. The patient had Dopplers done, and apparently on the right side, there was a DVT noted. She is currently on IV heparin. She does use home oxygen at 2 L. Here she is on 3 L. Her saturations are between 93 and 95%. In addition IV heparin she is getting saline at 20 cc an hour. I asked her about smoking, he apparently started smoking at the age of 11. She could not remember when she stopped smoking. She apparently has a history of diabetes, heart failure, COPD/asthma, CVA, DVT, hypertension, myocardial infarction, pneumonia, and seizure disorder. She has had previous infections, including ESBL, and VRE infections. Also, the patient has had a previous history of an AICD placement, and heart catheterization. Current labs include a white count of 12.8, hemoglobin 11.1, hematocrit 39.3, and a normal platelet count. The patient's PTT is 100.8. She had blood gases done twice. The first blood gas, showed a pO2 of 32, pCO2 of 49, pH of 7.24. I do not know that is believable. The second blood gas seems much more believable with a pO2 of 80, pCO2 of 44, pH of 7.25. Chest x-ray shows some very mild pulmonary vascular congestion, and some cardiomegaly. Progress note dated August 18, 2024. 48-year-old female that I saw yesterday in consultation. Please see my note above. The patient was admitted with a diagnosis of DVT, of the right lower extremity. The patient is seen today in room 474. She is lethargic like she was yesterday. She is on 3 L nasal cannula. Saturations are 98%. Her N- terminal proBNP was 21,900. Her procalcitonin level was elevated at 1.22. She remains on Rocephin and daptomycin as per infectious diseases. White count 10.8, hemoglobin 10.4, hematocrit 35.8, platelet count 244,000. Sodium 134, pot assium 5.5, chlorides 101, CO2 19, anion gap 14, BUN 58, creatinine 2.78. AST is 1556. ALT is 656. Urinalysis suggest the possibility of a urinary tract infection. Thus far, cultures are negative. Brain CT was negative. It did show an old lacunar infarct left thalamus. The perfusion study was nondiagnostic as expected, given the abnormality of the chest x-ray. Progress note dated August 19, 2024. 48-year-old female seen in consultation 2 days ago. The patient was admitted with a diagnosis of DVT, of the right lower extremity. In addition, she may have a urinary tract infection, as well as infection of the left foot. Currently, she is on 3 L of oxygen. She is getting saline at 75 cc an hour. She continues on Rocephin and daptomycin. She has been seen by infectious diseases. Current laboratory data includes a white count of 9.4, hemoglobin 10.6, hematocrit 35.8, and a platelet count of 236,000. Sodium 134, potassium 5, chlorides 103, CO2 18, BUN 61, creatinine 2.02. AST is 1165. ALT is 639. Wound culture, from the left foot, shows presumptive Staph aureus. 08/20/2024, I was asked to evaluate this patient on an emergent basis as the patient had significant decline in her condition over the past 24 hours. This is a 48-year-old female patient who came into the emergency department because of severe right lower extremity pain and recent fall from her wheelchair during transfers. She remains a very poor historian at the time of my evaluation, the patient was very lethargic and obtunded. 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 The patient had a low blood sugar. At the same time, the patient had become severely acidotic. Blood work from earlier this morning showed a lactic acid of 9.2, serum bicarb was at 6 with an anion gap of 22, BS was 63 with a creatinine of 1.99 and the potassium level was at 5.6. The patient was given D50 on the medical floor. I made recommendation to transfer the patient to immediately to the intensive care unit. The patient was clearly hypotensive. I was not able to accurately measure the blood pressure. In the ICU, the patient was started on norepinephrine and 0.1 mcg/kg/min. Same time, a central line was established and arterial line was also established. Urine output is minimal at this point. The most recent blood gas from the art line showed a pH of 7.19 with a pCO2 of 28 and pO2 of 207 and this was done on 100% nonrebreather facemask. The patient's white cell count is currently at 16.3 with a hemoglobin 11.8 and a platelet count of 263. The cultures from the left foot is showing Staph aureus and Prevotella and the patient is currently on IV Rocephin and daptomycin per ID recommendations. She is obtunded, lethargic, no significant agitation. Able to communicate upon stimulation. She has a DVT of the right lower extremity and the patient is on anticoagulation with Eliquis. The Doppler of the lower extremity on the left showed no evidence of any DVT. The clot on the right is believed to be in the mid/distal popliteal vein. She does have changes consistent with soft tissue infection/cellulitis of the lower extremities. Noted extremities were essentially cold and clammy and agreement with underlying sepsis/septic shock. Noted the patient also has severe ca rdiomyopathy. Echocardiogram that was done on 01/30/2024 showed left ventricular ejection fraction estimated to be around 15 to 20%. She also had moderate RV dilatation and severe pulm hypertension with an estimated PA pressure of around 61. There is also moderate degree of mitral regurgitation moderate to severe tricuspid regurgitation. Bourne catheter is in place. No focal neurological deficit at this point in time. 08/21/2024, the patient is being seen for a follow-up. The patient was crit ically ill yesterday and for that reason the patient got transferred to the intensive care that she received aggressive fluid resuscitation. She received a total of 2 L of IV fluids in the form of normal saline and the patient remains on a bicarb infusion running at 150 cc an hour. Urine output remains low and the net fluid balance is +3.5 L over the past 24 hours. Pressors were discontinued this morning. She was on a low-dose norepinephrine earlier at 0.02 mcg/kg/min and this has been discontinued. She is on 2 L of oxygen by nasal cannula. No significant respiratory distress. No further episodes of hypoglycemia. Lactic acid level dropped from 11.4 down to 3.8. Awake and alert and communicating. The left lower extremity is significantly cold and questionable pulses in the posterior tibialis. WBC count is 11.7 with hemoglobin 10.5 and a platelet count of 252. Follow-up blood 2 L of O2 Showed pH of 7.34 with pCO2 of 40 and pO2 of 90. The Patient's Sodium Levels at 126, BUN Is 56 with a Creatinine of 2.2 and a Potassium of Is at 4.7. She Has a Shock Liver with AST of 2378, ALT of 1144 and Alkaline Phosphatase of 120. Albumin Level Is at 3.9. She Remains on Rocephin and Daptomycin. She Is Currently off Pressors. She Remains on Anticoagulation and She Remains on Eliq uis. 08/22/2024, the patient is being seen for a follow-up. Clinically, alert and awake and communicating. No significant respiratory distress and the patient is currently on 4 L of oxygen by nasal cannula. The cellulitis lower extremities is stable and the patient is currently on IV cefazolin and Flagyl. Antibiotic modification was done by infectious disease. Hemodynamically stable. The pat ient is currently off pressors. The lower extremity was evaluated by vascular surgery and there is pulses in the left lower extremity noted and no vascular intervention is recommended at this point in time. The patient was in a bicarb infusion and the patient will be switched to normal citrate of 50 cc an hour. In terms of the labs, the white cell count is at 9 with a hemoglobin 10.2 and a platelet count of 239. BUN is 60 with a creatinine of 12 sodium levels at 132. No focal neurological deficit at this point in time. Able to swallow. Able to take oral medication and the patient is on Eliquis for long-term anticoagulation. 08/23/2024, the patient is being seen for a follow-up. Awake and alert and communicating. Hemodynamically stable. No hypotension. The patient is off the bicarb infusion. IV fluids have been switched to KVO. Cellulitis of lower extremity improving. The patient has adequate pulses in all 4 extremities although they are quite diminished in the legs. She remains on IV cefazolin. The patient is also on oxygen at 2 L with an pulse ox of 97%. Labs from today shows a WBC count 10.4, it was 10.7 and a platelet count of 187. He is 52 and the creatinine is on the decline down to 1.58 and a sodium levels at 131. The patient also has shock liver and LFTs are essentially improving. No other significant events overnight. The patient is currently on IV cefazolin. Objective - Vital Signs Vital signs: Vital Signs Temp 97.7 F 08/23/24 08:00 Pulse 98 08/23/24 08:00 Resp 14 08/23/24 08:00 BP 113/98 08/23/24 08:00 Pulse Ox 98 08/23/24 08:00 FiO2 100 08/20/24 18:00 Intake & Output 08/22/24 08/23/24 08/23/24 18:59 06:59 18:59 Intake Total 800 2140 100 Output Total 470 670 100 Balance 330 1470 0 Weight 154.3 kg 156 kg Intake: IV 800 700 100 Dextrose 5% in Water 1, 300 000 ml @ 100 mls/hr IV . [id number] JAN with Sodium Bicarb (1 Meq/ml) 150 ml Rx#:[id number] Sodium Chloride 0.9% 1, 500 600 100 000 ml @ 50 mls/hr IV . Q20H JAN Rx#:[id number] ceFAZolin 2 gm In Sodium 100 Chloride 0.9% 50 ml @ 100 mls/hr IVPB Q8HR JAN Rx# :[id number] Oral 1440 Output: Urine 470 670 100 Other: Voiding Method Indwelling Catheter Indwelling Catheter # Bowel Movements 1 1 ABP, PAP, CO, CI - Last Documented Arterial Blood Pressure 111/62 - Exam No acute distress, alert and communicating and the patient is currently on 2 L of O2 nasal cannula HEENT examination is grossly unremarkable. Mucous membranes are moist. No oral lesions. Neck supple. Full range of motion. No adenopathy thyromegaly or neck vein distention. Cardiovascular examination reveals regular rhythm rate. S1-S2 normal. No S3 or S4. No discernible murmur noted. Sounds are distant. Lungs reveal mostly clear breath sounds. Minimal rhonchi. No wheezes or crackles. The patient is not particularly cooperative, so examination was not particularly beneficial. Abdomen soft, and obese. Bowel sounds are noted. No mass. Extremities revealed a right below the knee amputation, and transmetatarsal amputation on the left. The patient has a deep wound along the plantar aspect of the transmetatarsal amputation left lower extremity. Right lower extremity has a below-knee amputation the extremity is quite swollen. There is evidence of cellulitis in both lower extremities. Pulses are present although diminished in the left lower extremity. Cellulitis is improving. Skin is without rash or lesion. Wound in the left foot at the site of a previous transmetatarsal amputation was noted. No active drainage. Bone is exposed. Neurologic examination difficult to assess. No focal neurological deficit. - Labs CBC & Chem 7: 08/23/24 04:54 08/23/24 04:54 Labs: Abnormal Lab Results - Last 24 Hours (Table) 08/22/24 08/22/24 08/23/24 Range/Units 05:00 11:42 00:01 Hgb (11.4-16.0) gm/dL MCH (25.0-35.0) pg MCHC (31.0-37.0) g/dL RDW (11.5-15.5) % Neutrophils # (1.3-7.7) k/uL Sodium (137-145) mmol/L BUN (7-17) mg/dL Creatinine (0.52-1.04) mg/dL Glucose (74-99) mg/dL POC Glucose (mg/dL) 118 H 258 H (70-110) mg/dL Calcium (8.4-10.2) mg/dL Total Bilirubin 2.5 H (0.2-1.3) mg/dL Conjugated Bilirubin 0.5 H (0.0-0.3) mg/dL Delta Bilirubin 1.4 H (0.0-0.2) mg/dL AST 1583 H (14-36) U/L ALT 1009 H (4-34) U/L Albumin 3.4 L (3.5-5.0) g/dL 08/23/24 08/23/24 08/23/24 Range/Units 04:54 04:54 06:10 Hgb 10.7 L (11.4-16.0) gm/dL MCH 24.3 L (25.0-35.0) pg MCHC 30.0 L (31.0-37.0) g/dL RDW 20.0 H (11.5-15.5) % Neutrophils # 8.3 H (1.3-7.7) k/uL Sodium 131 L (137-145) mmol/L BUN 54 H (7-17) mg/dL Creatinine 1.58 H (0.52-1.04) mg/dL Glucose 111 H (74-99) mg/dL POC Glucose (mg/dL) 114 H (70-110) mg/dL Calcium 8.0 L (8.4-10.2) mg/dL Total Bilirubin (0.2-1.3) mg/dL Conjugated Bilirubin (0.0-0.3) mg/dL Delta Bilirubin (0.0-0.2) mg/dL AST 978 H (14-36) U/L ALT 490 H (4-34) U/L Albumin (3.5-5.0) g/dL Microbiology - Last 24 Hours (Table) 08/20/24 18:00 Urine Culture - Final Urine,Voided Assessment and Plan Plan: septic shock, likely secondary to soft tissue infection/cellulitis in addition to a wound in the left foot at the site of a transmetatarsal amputation. The patient has a chronic stage IV ulcer that has no active drainage at this point in time. Cultures were noted and it is positive for Staph aureus and Prevotella. The patient is currently on IV cefazolin and Flagyl oral and hemodynamically stable on no pressors. Acute lactic acidosis, improved and the lactic acid level is normalizing Severe anion gap metabolic acidosis, improved Acute hyperkalemia, improved , Acute hypoglycemia, likely secondary to above, improved Altered mentation secondary to above, improved Cellulitis of the lower extremities bilaterally, currently on a combination of IV cefazolin Acute on chronic kidney injury with secondary oliguria, consider underlying ATN, renal function continues to improve Right lower extremity DVT, on Eliquis Severe cardiomyopathy with an ejection fraction of 10 to 15% Severe pulmonary hypertension, likely group 2/3 pulmonary hypertension with severe dilatation of the RV Severe peripheral vascular disease, Prior right below the knee amputation, and left transmetatarsal amputation. Vascular surgery is on the case History of COPD/asthma. Diabetes mellitus, with ongoing episodes of hypoglycemia History of CVA. Coronary artery disease with prior history of myocardial infarction. History of hypertension. History of DVT. Obesity. Multiple drug-resistant infections. History of pacemaker implantation/defibrillator Plan: Clinically improved and the patient looks better compared to yesterday. Acid-base status is improved Patient is currently on 2L of O2 nasal cannula, chest x-ray showing cardiomegaly with mild pulm vascular congestion. Otherwise no other acute abnormalities have been noted. Mental status improved Lactic acid level is dropped IV fluids to KVO Monitor blood sugar Continue cefazolin, IV Consult vascular surgery regarding left lower extremity Advance diet as tolerated Continue anticoagulation with Eliquis, The patient can be transferred to medical surgical unit Critically ill female patient was a full CODE STATUS.
[2024-08-23] MEDS: PANTOPRAZOLE 40 MG TABLET PO SCH (17:21)
[2024-08-23 17:28] LABS: Glucose,Whole Blood 123 mg/dL (70-110)
[2024-08-23 21:22] LABS: Glucose,Whole Blood 137 mg/dL (70-110)
[2024-08-23] MEDS: INSULIN ASPART (NovoLOG) 100 UNIT/ML VIAL SQ SCH (22:56)
[2024-08-24 06:08] LABS: ALT 350 U/L (4-34); AST 703 U/L (14-36); African American GFR (CKD) 59 (>60 ml/min/1.73 sqM); Albumin 3.6 g/dL (3.5-5.0); Alkaline Phosphatase 129 U/L (38-126); Anion Gap 7 mmol/L; Blood Urea Nitrogen 50 mg/dL (7-17); Calcium 7.9 mg/dL (8.4-10.2); Carbon Dioxide 22 mmol/L (22-30); Chloride 99 mmol/L (98-107); Glucose 126 mg/dL (74-99); Non-African American GFR(CKD) 51 (>60 ml/min/1.73 sqM); Sodium 128 mmol/L (137-145); Total Bilirubin 3.1 mg/dL (0.2-1.3); Total Protein 7.1 g/dL (6.3-8.2)
[2024-08-24 06:15] LABS: Potassium 5.3 mmol/L (3.5-5.1)
[2024-08-24 06:48] LABS: Glucose,Whole Blood 111 mg/dL (70-110)
[2024-08-24 07:25] LABS: Anisocytosis Slight; HCT 35.5 % (34.0-46.0); HGB 10.4 gm/dL (11.4-16.0); Hypochromasia Marked; MCHC 29.1 g/dL (31.0-37.0); MCV 82.5 fL (80.0-100.0); Mean Platelet Volume 10.7; Microcytosis Slight; Platelet Count 185 k/uL (150-450); Poikilocytosis Slight; RBC 4.31 m/uL (3.80-5.40); RDW 19.6 % (11.5-15.5)
[2024-08-24 08:29] LABS: Eosinophils # (M) 0.09 k/uL (0-0.7); Lymphocytes # (M) 0.69 k/uL (1.0-4.8); Neutrophils # (M) 7.31 k/uL (1.3-7.7); Neutrophils % (M) 85 %; Nucleated Red Blood Cells 1 /100 WBC (0-0); Total Cells Counted 200; WBC 8.6 k/uL (3.8-10.6)
[2024-08-24 08:31] LABS: Crenated RBC Present
--- NOTE | 2024-08-24 10:39 | P.PN ---
Subjective Patient seen in follow-up for acute kidney injury. Resting in bed. Renal function improving. Nonoliguric. Oral intake is good. Vital signs are stable. General: No acute distress. HEENT: Head exam is unremarkable. On nasal cannula. LUNGS: No audible rhonchi or wheezes. HEART: Rate and Rhythm are regular. ABDOMEN: Obese, nontender. EXTREMITITES: Right BKA noted. Transmetatarsal amputation on the left noted. Erythema noted. Objective - Vital Signs Vital signs: Vital Signs Temp 98.4 F 08/24/24 08:00 Pulse 88 08/24/24 09:00 Resp 10 L 08/24/24 09:00 BP 106/66 08/24/24 09:00 Pulse Ox 97 08/24/24 09:00 FiO2 100 08/20/24 18:00 Intake & Output 08/23/24 08/24/24 08/24/24 18:59 06:59 18:59 Intake Total 300 1530 30 Output Total 730 1135 200 Balance -430 395 -170 Weight 157.1 kg Intake: IV 300 90 30 0.9% NS KVO 90 30 Sodium Chloride 0.9% 1, 250 000 ml @ 50 mls/hr IV . Q20H JAN Rx#:[id number] ceFAZolin 2 gm In Sodium 50 Chloride 0.9% 50 ml @ 100 mls/hr IVPB Q8H JAN Rx#: [id number] Oral 1440 Output: Urine 730 1135 200 Other: Voiding Method Indwelling Catheter Indwelling Catheter Indwelling Catheter # Bowel Movements 1 1 ABP, PAP, CO, CI - Last Documented Arterial Blood Pressure 111/62 - Labs CBC & Chem 7: 08/24/24 03:00 08/24/24 08:45 Labs: Abnormal Lab Results - Last 24 Hours (Table) 08/23/24 08/23/24 08/23/24 Range/Units 11:40 17:26 21:21 Hgb (11.4-16.0) gm/dL MCH (25.0-35.0) pg MCHC (31.0-37.0) g/dL RDW (11.5-15.5) % Lymphocytes # (Manual) (1.0-4.8) k/uL Nucleated RBCs (0-0) /100 WBC Sodium (137-145) mmol/L Potassium (3.5-5.1) mmol/L BUN (7-17) mg/dL Creatinine (0.52-1.04) mg/dL Glucose (74-99) mg/dL POC Glucose (mg/dL) 138 H 123 H 137 H (70-110) mg/dL Calcium (8.4-10.2) mg/dL Total Bilirubin (0.2-1.3) mg/dL AST (14-36) U/L ALT (4-34) U/L Alkaline Phosphatase (38-126) U/L 08/24/24 08/24/24 08/24/24 Range/Units 03:00 03:00 06:47 Hgb 10.4 L (11.4-16.0) gm/dL MCH 24.0 L (25.0-35.0) pg MCHC 29.1 L (31.0-37.0) g/dL RDW 19.6 H (11.5-15.5) % Lymphocytes # (Manual) 0.69 L (1.0-4.8) k/uL Nucleated RBCs 1 H (0-0) /100 WBC Sodium 128 L (137-145) mmol/L Potassium 5.3 H (3.5-5.1) mmol/L BUN 50 H (7-17) mg/dL Creatinine 1.24 H (0.52-1.04) mg/dL Glucose 126 H (74-99) mg/dL POC Glucose (mg/dL) 111 H (70-110) mg/dL Calcium 7.9 L (8.4-10.2) mg/dL Total Bilirubin 3.1 H (0.2-1.3) mg/dL AST 703 H (14-36) U/L ALT 350 H (4-34) U/L Alkaline Phosphatase 129 H (38-126) U/L Assessment and Plan Assessment: 1. Acute kidney injury secondary to ATN secondary to septic shock. Baseline creatinine near 1. Renal function improving. Creatinine 1.28. Nonoliguric. No hydronephrosis noted on kidney ultrasound. Left kidney not visualized due to patient body habitus. 2. Hyperkalemia due to YOLA and acidosis. Improved. 3. AGMA from lactic acidosis with non-anion gap metabolic acidosis from IVF with respiratory acidosis. Status post bicarb drip. Improved. 4. CKD stage IIIa 2/2 cardiorenal syndrome. Cr baseline 1-1.1 5. CHFrEF (15-20%). 6. Hyponatremia secondary to acute kidney injury. Stable. 7. LLE cellulitis with DVT on antibiotics. Also on anticoagulation. 8. Type 2 Diabetes 9. Hypervolemic hyponatremia. Plan: Bumex 1 mg IV once today. Replace potassium. Encouraged oral intake. Add fluid restriction.bu Avoid nephrotoxins. Continue to monitor renal function and urine output. Phosphorus level 4.7 dated August 21, 2024.
--- NOTE | 2024-08-24 11:46 | P.PN ---
Subjective Progress Note Date: 08/24/24 DVT, cellulitis. Pulmonary consult dated August 17, 2024. 48-year-old female very poor historian, who apparently presented to the emergency department on August 16, at about 3:45 in the afternoon. The patient apparently came in complaining of bilateral lower extremity pain, and swelling. The patient denied any respiratory issues including shortness of breath, cough, wheezing, chest tightness, and phlegm production. The patient has a previous history of a right BKA, and a left trans metatarsal amputation. The patient had Dopplers done, and apparently on the right side, there was a DVT noted. She is currently on IV heparin. She does use home oxygen at 2 L. Here she is on 3 L. Her saturations are between 93 and 95%. In addition IV heparin she is getting saline at 20 cc an hour. I asked her about smoking, he apparently started smoking at the age of 11. She could not remember when she stopped smoking. She apparently has a history of diabetes, heart failure, COPD/asthma, CVA, DVT, hypertension, myocardial infarction, pneumonia, and seizure disorder. She has had previous infections, including ESBL, and VRE infections. Also, the patient has had a previous history of an AICD placement, and heart catheterization. Current labs include a white count of 12.8, hemoglobin 11.1, hematocrit 39.3, and a normal platelet count. The patient's PTT is 100.8. She had blood gases done twice. The first blood gas, showed a pO2 of 32, pCO2 of 49, pH of 7.24. I do not know that is believable. The second blood gas seems much more believable with a pO2 of 80, pCO2 of 44, pH of 7.25. Chest x-ray shows some very mild pulmonary vascular congestion, and some cardiomegaly. Progress note dated August 18, 2024. 48-year-old female that I saw yesterday in consultation. Please see my note above. The patient was admitted with a diagnosis of DVT, of the right lower extremity. The patient is seen today in room 474. She is lethargic like she was yesterday. She is on 3 L nasal cannula. Saturations are 98%. Her N- terminal proBNP was 21,900. Her procalcitonin level was elevated at 1.22. She remains on Rocephin and daptomycin as per infectious diseases. White count 10.8, hemoglobin 10.4, hematocrit 35.8, platelet count 244,000. Sodium 134, potassium 5.5, chlorides 101, CO2 19, anion gap 14, BUN 58, creatinine 2.78. AST is 1556. ALT is 656. Urinalysis suggest the possibility of a urinary tract infection. Thus far, cultures are negative. Brain CT was negative. It did show an old lacunar infarct left thalamus. The perfusion study was nondiagnostic as expected, given the abnormality of the chest x-ray. Progress note dated August 19, 2024. 48-year-old female seen in consultation 2 days ago. The patient was admitted with a diagnosis of DVT, of the right lower extremity. In addition, she may have a urinary tract infection, as well as infection of the left foot. Currently, she is on 3 L of oxygen. She is getting saline at 75 cc an hour. She continues on Rocephin and daptomycin. She has been seen by infectious diseases. Current laboratory data includes a white count of 9.4, hemoglobin 10.6, hematocrit 35.8, and a platelet count of 236,000. Sodium 134, potassium 5, chlorides 103, CO2 18, BUN 61, creatinine 2.02. AST is 1165. ALT is 639. Wound culture, from the left foot, shows presumptive Staph aureus. 08/20/2024, I was asked to evaluate this patient on an emergent basis as the patient had significant decline in her condition over the past 24 hours. This is a 48-year-old female patient who came into the emergency department because of severe right lower extremity pain and recent fall from her wheelchair during transfers. She remains a very poor historian at the time of my evaluation, the patient was very lethargic and obtunded. She was having episodes of hypoglycemia since balance recesser. The patient had a low blood sugar. At the same time, the patient had become severely acidotic. Blood work from earlier this morning showed a lactic acid of 9.2, serum bicarb was at 6 with an anion gap of 22, BS was 63 with a creatinine of 1.99 and the potassium level was at 5.6. The patient was given D50 on the medical floor. I made recommendation to transfer the patient to immediately to the intensive care unit. The patient was clearly hypotensive. I was not able to accurately measure the blood pressure. In the ICU, the patient was started on norepinephrine and 0.1 mcg/kg/min. Same time, a central line was established and arterial line was also established. Urine output is minimal at this point. The most recent blood gas from the art line showed a pH of 7.19 with a pCO2 of 28 and pO2 of 207 and this was done on 100% nonrebreather facemask. The patient's white cell count is currently at 16.3 with a hemoglobin 11.8 and a platelet count of 263. The cultures from the left foot is showing Staph aureus and Prevotella and the patient is currently on IV Rocephin and daptomycin per ID recommendations. She is obtunded, lethargic, no significant agitation. Able to communicate upon stimulation. She has a DVT of the right lower extremity and the patient is on anticoagulation with Eliquis. The Doppler of the lower extremity on the left showed no evidence of any DVT. The clot on the right is believed to be in the mid/distal popliteal vein. She does have changes consistent with soft tissue infection/cellulitis of the lower extremities. Noted extremities were essentially cold and clammy and agreement w ith underlying sepsis/septic shock. Noted the patient also has severe cardiomyopathy. Echocardiogram that was done on 01/30/2024 showed left ventricular ejection fraction estimated to be around 15 to 20%. She also had moderate RV dilatation and severe pulm hypertension with an estimated PA pressure of around 61. There is also moderate degree of mitral regurgitation moderate to severe tricuspid regurgitation. Bourne catheter is in place. No focal neurological deficit at this point in time. 08/21/2024, the patient is being seen for a follow-up. The patient was critically ill yesterday and for that reason the patient got transferred to the intensive care that she received aggressive fluid resuscitation. She received a total of 2 L of IV fluids in the form of normal saline and the patient remains on a bicarb infusion running at 150 cc an hour. Urine output remains low and the net fluid balance is +3.5 L over the past 24 hours. Pressors were discontinued this morning. She was on a low-dose norepinephrine earlier at 0.02 mcg/kg/min and this has been discontinued. She is on 2 L of oxygen by nasal cannula. No significant respiratory distress. No further episodes of hypoglycemia. Lactic acid level dropped from 11.4 down to 3.8. Awake and alert and communicating. The left lower extremity is significantly cold and questionable pulses in the posterior tibialis. WBC count is 11.7 with hemoglobin 10.5 and a platelet count of 252. Follow-up blood 2 L of O2 Showed pH of 7.34 with pCO2 of 40 and pO2 of 90. The Patient's Sodium Levels at 126, BUN Is 56 with a Creatinine of 2.2 and a Potassium of Is at 4.7. She Has a Shock Liver with AST of 2378, ALT of 1144 and Alkaline Phosphatase of 120. Albumin Level Is at 3.9. She Remains on Rocephin and Daptomycin. She Is Curren tly off Pressors. She Remains on Anticoagulation and She Remains on Eliquis. 08/22/2024, the patient is being seen for a follow-up. Clinically, alert and awake and communicating. No significant respiratory distress and the patient is currently on 4 L of oxygen by nasal cannula. The cellulitis lower extremities is stable and the patient is currently on IV cefazolin and Flagyl. Antibiotic modification was done by infectious disease. Hemodynamically stable. The patient is currently off pressors. The lower extremity was evaluated by vascular surgery and there is pulses in the left lower extremity noted and no vascular intervention is recommended at this point in time. The patient was in a bicarb infusion and the patient will be switched to normal citrate of 50 cc an hour. In terms of the labs, the white cell count is at 9 with a hemoglobin 10.2 and a platelet count of 239. BUN is 60 with a creatinine of 12 sodium levels at 132. No focal neurological deficit at this point in time. Able to swallow. Able to take oral medication and the patient is on Eliquis for long-term antic oagulation. 08/23/2024, the patient is being seen for a follow-up. Awake and alert and communicating. Hemodynamically stable. No hypotension. The patient is off the bicarb infusion. IV fluids have been switched to KVO. Cellulitis of lower extremity improving. The patient has adequate pulses in all 4 extremities although they are quite diminished in the legs. She remains on IV cefazolin. T he patient is also on oxygen at 2 L with an pulse ox of 97%. Labs from today shows a WBC count 10.4, it was 10.7 and a platelet count of 187. He is 54 and the creatinine is on the decline down to 1.58 and a sodium levels at 131. The patient also has shock liver and LFTs are essentially improving. No other significant events overnight. The patient is currently on IV cefazolin. 08/24/2024. The patient is being seen for a follow up in the ICU. Patient was awake and alert and conversing appropriately during our assessment. She was AXOX3. She is currently hemodynamically stable. No hypotension was noted. No overnight events reported. Fluid has been switched to KVO. Patient remains on IV Cefazolin and metronidazole. She is saturating at 97% on 2L/minute via nasal cannula. Her extremities were less warm compare to yesterday and her pain is improving. Labs from today show a WBC of 8.6, hemoglobin 10.4, platelet 185. Sodium was 128, potassium 5.3, BUN 50, creatinine 1.24. The patient also has shock liver and LFTs are improving from yesterday. Objective - Vital Signs Vital signs: Vital Signs Temp 98.4 F 08/24/24 08:00 Pulse 88 08/24/24 09:00 Resp 10 L 08/24/24 09:00 BP 106/66 08/24/24 09:00 Pulse Ox 97 08/24/24 09:00 FiO2 100 08/20/24 18:00 Intake & Output 08/23/24 08/24/24 08/24/24 18:59 06:59 18:59 Intake Total 300 1530 30 Output Total 730 1135 200 Balance -430 395 -170 Weight 157.1 kg Intake: IV 300 90 30 0.9% NS KVO 90 30 Sodium Chloride 0.9% 1, 250 000 ml @ 50 mls/hr IV . Q20H [facility] Rx#:[id number] ceFAZolin 2 gm In Sodium 50 Chloride 0.9% 50 ml @ 100 mls/hr IVPB Q8H [facility] Rx#: [id number] Oral 1440 Output: Urine 730 1135 200 Other: Voiding Method Indwelling Catheter Indwelling Catheter Indwelling Catheter # Bowel Movements 1 1 ABP, PAP, CO, CI - Last Documented Arterial Blood Pressure 111/62 - Exam General: Alert and oriented, not in acute distress, AXOX3 Cardiovascular: Regular heart rate, no murmurs Respiratory: Clear to auscultation bilaterally, no wheezing/rhonchi/stridor Abdominal: Soft, nondistended, nontender to palpation Extremity: Extremities revealed a right below the knee amputation, and transmetatarsal amputation on the left. The patient has a deep wound along the plantar aspect of the transmetatarsal amputation left lower extremity. Right lower extremity has a below-knee amputation the extremity is quite swollen. Pul ses are present although diminished in the left lower extremity. Slight erythema noted on the lower extremity bilaterally slight improvement compare to yesterday. - Labs CBC & Chem 7: 08/24/24 03:00 08/24/24 08:45 Labs: Abnormal Lab Results - Last 24 Hours (Table) 08/23/24 08/23/24 08/23/24 Range/Units 11:40 17:26 21:21 Hgb (11.4-16.0) gm/dL MCH (25.0-35.0) pg MCHC (31.0-37.0) g/dL RDW (11.5-15.5) % Lymphocytes # (Manual) (1.0-4.8) k/uL Nucleated RBCs (0-0) /100 WBC Sodium (137-145) mmol/L Potassium (3.5-5.1) mmol/L BUN (7-17) mg/dL Creatinine (0.52-1.04) mg/dL Glucose (74-99) mg/dL POC Glucose (mg/dL) 138 H 123 H 137 H (70-110) mg/dL Calcium (8.4-10.2) mg/dL Total Bilirubin (0.2-1.3) mg/dL AST (14-36) U/L ALT (4-34) U/L Alkaline Phosphatase (38-126) U/L 08/24/24 08/24/24 08/24/24 Range/Units 03:00 03:00 06:47 Hgb 10.4 L (11.4-16.0) gm/dL MCH 24.0 L (25.0-35.0) pg MCHC 29.1 L (31.0-37.0) g/dL RDW 19.6 H (11.5-15.5) % Lymphocytes # (Manual) 0.69 L (1.0-4.8) k/uL Nucleated RBCs 1 H (0-0) /100 WBC Sodium 128 L (137-145) mmol/L Potassium 5.3 H (3.5-5.1) mmol/L BUN 50 H (7-17) mg/dL Creatinine 1.24 H (0.52-1.04) mg/dL Glucose 126 H (74-99) mg/dL POC Glucose (mg/dL) 111 H (70-110) mg/dL Calcium 7.9 L (8.4-10.2) mg/dL Total Bilirubin 3.1 H (0.2-1.3) mg/dL AST 703 H (14-36) U/L ALT 350 H (4-34) U/L Alkaline Phosphatase 129 H (38-126) U/L Assessment and Plan Assessment: septic shock, likely secondary to soft tissue infection/cellulitis in addition to a wound in the left foot at the site of a transmetatarsal amputation. The patient has a chronic stage IV ulcer that has no active drainage at this point in time. Cultures were noted and it is positive for Staph aureus and Prevotella. The patient is currently on IV cefazolin and Flagyl oral and hemodynamically stable on no pressors. Acute lactic acidosis, improved and the lactic acid level is normalizing Severe anion gap metabolic acidosis, improved Acute hyperkalemia, improved , Acute hypoglycemia, likely secondary to above, improved Altered mentation secondary to above, improved Cellulitis of the lower extremities bilaterally, currently on a combination of IV cefazolin Acute on chronic kidney injury with secondary oliguria, consider underlying ATN, renal function continues to improve Right lower extremity DVT, on Eliquis Severe cardiomyopathy with an ejection fraction of 10 to 15% Severe pulmonary hypertension, likely group 2/3 pulmonary hypertension with severe dilatation of the RV Severe peripheral vascular disease, Prior right below the knee amputation, and left transmetatarsal amputation. Vascular surgery is on the case History of COPD/asthma. Diabetes mellitus, with ongoing episodes of hypoglycemia History of CVA. Coronary artery disease with prior history of myocardial infarction. History of hypertension. History of DVT. Obesity. Multiple drug-resistant infections. History of pacemaker implantation/defibrillator Plan: Clinically improved and the patient looks better compared to yesterday. Acid-base status is improved Patient is currently on 2L of O2 nasal cannula Mental status improved Lactic acid level is dropped IV fluids to KVO Monitor blood sugar Continue IV cefazolin and oral metronidazole Consult vascular surgery regarding left lower extremity Advance diet as tolerated Continue anticoagulation with Eliquis, The patient can be transferred to medical surgical unit with telemetry Critically ill female patient was a full CODE STATUS. Time with Patient: Less than 30
[2024-08-24 11:47] LABS: Glucose,Whole Blood 124 mg/dL (70-110)
[2024-08-24] MEDS: BUMETANIDE 0.25 MG/ML 4 ML VIAL IV ONE (12:13)
[2024-08-24] MEDS: POTASSIUM CHLORIDE ER 20 MEQ TAB.ER PO STA (12:17)
--- NOTE | 2024-08-24 13:10 | P.PN ---
Subjective Progress Note Date: 08/24/24 Patient is a 48-year-old female with a past medical history of right lower extremity DVT maintained on Eliquis, right BKA, and left TMA who presented to the emergency department with severe right lower extremity pain and recent falls from her wheelchair during transfers. She is a poor historian at the time of the interview. She is very lethargic and falls asleep while answering questionsAO x 2. She rarely opens her eyes without stimulus. During the interview she is noted to have increased respiratory effort, respiratory rate of 10-12, and small sluggish pupils. Narcan was administered and patient became more alert and respiratory rate improved to 16, AOx3, now able to complete full sentences but remains with eyes closed unless prompted to open. Now she states that she has been having bilateral lower extremity pain worse on the right with erythema and swelling of the right lower extremity. She reports compliance with her medications. She also reports some abdominal pain with a few episodes of vomitingappears nonbloody. She endorses pain in the right lower extremity. She denies chest pain, shortness of breath, current abdominal pain, nausea, vomiting. Femur x-ray unremarkable. Bilateral lower extremity venous Doppler showed positive right lower extremity DVT femoral vein to popliteal vein. EKG shows pacing by AICD. WBC 6.1, hemoglobin 10.1, platelets 179, PT 13.3, INR 1.3, sodium 136, potassium 4.6, CO2 20, creatinine 1.73, GFR 34, lactic acid 2.2, phosphorus 4.6, CRP 2.9, TSH 27.6. Afebrile, normotensive, tachycardic in the low 100s saturating well on room air. 08/18. Patient seen sleeping in bed. Still with eyes closed while conversing but will open them when prompted. States she's had no energy for days. Chest x-ray 08/17: Cardiomegaly and mild pulmonary vascular congestion. Brain CT 08/17: No acute intracranial process, old lacunar infarct left thalamus. Pulmonary perfusion scan 08/18: No mismatch defect is evident, intermediate probability for acute pulmonary embolism. WBCs 10.8, hemoglobin 10.4, sodium 134, potassium 5.5, creatinine 2.78, hemoglobin A1c 6.5, N-terminal proBNP 21.9, procalcitonin 1.22. 08/19. Patient seen and examined. Ultrasound abdomen done showed no evidence for acute abdominal process, hepatic steatosis. Ultrasound of kidneys done showed nonobstructing right renal calculus. Patient stated she feels better, still has pain in the right BKA stump. 08/20. Patient seen laying in bed. Preliminary wound culture shows presumptive Staph aureus. Patient appears to be struggling to find her words/Labs: WBCs 16.3, hemoglobin 11.8, potassium 5.6, creatinine 1.99, total bilirubin 2.4. ABG: pH 7.26, pCO2 31, pO2 84, HCO3 14. Patient with worsening prognosis, transfer to ICU. 08/21. Patient seen and examined. Blood work done this morning showed WBC 11.7, hemoglobin 10.5, platelet count 252, sodium 126, potassium 4.7, BUN 53, creatinine 2.29 bilirubin 2.8, AST 2378, ALT 1144. Patient is lethargic, openin g eyes, answers question appropriately. 08/22. Patient seen and examined. Labs: WBCs 9.0, hemoglobin 10.2, sodium 132, potassium 4.1, CO2 25, BUN 60, creatinine 2.00. She remains lethargic. 08/23. Patient seen and examined. Labs: WBCs10.4, hemoglobin 10.7, sodium 131, potassium 3.7, BUN 54, creatinine 1.58, AST 978, ALT 490. 08/24. Patient seen at bedside. Lethargy improved. Patient states that she is doing well but endorses continued pain in her legs. Labs: sodium 128, potassium 5.3, BUN 50, creatinine 1.24, AST 703, ALT 350. Review of systems: ROS limited due to altered mental status. Pertinent positives and negatives as discussed in HPI. Physical examination: Vital signs are reviewed. General: No acute distress. Arousable, oriented x 4. Morbidly obese. HEENT: Head exam is unremarkable. Lateral third of eyebrows thinning. EOMI bilaterally. ACs patent. Nares patent. Lungs: Bilateral breath sounds present; no rhonchi, wheezes, or rales. Heart: Rate and rhythm are regular. S1-S2 present. No murmur/rub/gallops. Abdomen: Soft, nontender, nondistended. Bowel sounds present. Extremities: Right BKA with erythema. Left TMA with ulcer on bottom now covered with gauze and LLE cellulitis and warmth. Psych: Normal affect and mood. Cooperative. Assessment/Plan: Sepsis, resolved Septic shock, resolved Left lower extremity cellulitis Continue IV Rocephin and daptomycin Continue IV fluids Monitor CBC Monitor CMP Monitor vitals Infectious disease following Acute toxic metabolic encephalopathy secondary to medications Judicious use of pain medication Acute transaminitis, improving Hepatic encephalopathy Avoid hepatotoxic agents Monitor LFTs Continue lactulose Acute kidney injury, improving Metabolic acidosis, improving Hyperkalemia due to YOLA and acidosis, improved Hyponatremia secondary to YOLA Monitor CPK while on daptomycin Strict I's and O's Daily weights Monitor renal function Continue IV fluids Avoid nephrotoxic agents Nephrology following Right lower extremity deep vein thrombosis Continue Eliquis Surgery consultedno surgical intervention at this time Heme/onc consulted-restarted Eliquis Acute hypoxemic respiratory failure Continue oxygen supplementation Aggressive bronchopulmonary hygiene Continue breathing treatments Critical care following Left foot ulcer Absorptive silver, saline moist gauze, dry gauze, rolled gauze and secured with paper tape change Tuesday, Tuesday, Tuesday per wound care Hypothyroidism Continue levothyroxine 50 mcg daily Diabetes mellitus type 2 Monitor glucose Insulin sliding scale DVT prophylaxis: Eliquis Chronic conditions: Recurrent DVTs, systolic CHF, chronic kidney disease stage IIIb, diabetes mellitus type 2, seizures, history of AICD placement, history of cardiac catheterizations Objective - Vital Signs Vital signs: Vital Signs Temp 97.7 F 08/24/24 04:00 Pulse 91 08/24/24 06:00 Resp 19 08/24/24 06:00 BP 98/72 08/24/24 06:00 Pulse Ox 97 08/24/24 06:00 FiO2 100 08/20/24 18:00 Intake & Output 08/23/24 08/23/24 08/24/24 06:59 18:59 06:59 Intake Total 2140 300 1530 Output Total 558 729 4062 Balance 1470 -430 395 Weight 156 kg 157.1 kg Intake: IV 700 300 90 0.9% NS KVO 90 Sodium Chloride 0.9% 1, 600 250 000 ml @ 50 mls/hr IV . Q20H [facility] Rx#:[id number] ceFAZolin 2 gm In Sodium 50 Chloride 0.9% 50 ml @ 100 mls/hr IVPB Q8H [facility] Rx#: [id number] ceFAZolin 2 gm In Sodium 100 Chloride 0.9% 50 ml @ 100 mls/hr IVPB Q8HR [facility] Rx# :[id number] Oral 1440 1440 Output: Urine 279 [id number] Other: Voiding Method Indwelling Catheter Indwelling Catheter Indwelling Catheter # Bowel Movements 1 1 1 ABP, PAP, CO, CI - Last Documented Arterial Blood Pressure 111/62 - Labs CBC & Chem 7: 08/24/24 03:00 08/24/24 08:45 Labs: Abnormal Lab Results - Last 24 Hours (Table) 08/23/24 08/23/24 08/23/24 Range/Units 11:40 17:26 21:21 Sodium (137-145) mmol/L Potassium (3.5-5.1) mmol/L BUN (7-17) mg/dL Creatinine (0.52-1.04) mg/dL Glucose (74-99) mg/dL POC Glucose (mg/dL) 138 H 123 H 137 H (70-110) mg/dL Calcium (8.4-10.2) mg/dL Total Bilirubin (0.2-1.3) mg/dL AST (14-36) U/L ALT (4-34) U/L Alkaline Phosphatase (38-126) U/L 08/24/24 08/24/24 Range/Units 03:00 06:47 Sodium 128 L (137-145) mmol/L Potassium 5.3 H (3.5-5.1) mmol/L BUN 50 H (7-17) mg/dL Creatinine 1.24 H (0.52-1.04) mg/dL Glucose 126 H (74-99) mg/dL POC Glucose (mg/dL) 111 H (70-110) mg/dL Calcium 7.9 L (8.4-10.2) mg/dL Total Bilirubin 3.1 H (0.2-1.3) mg/dL AST 703 H (14-36) U/L ALT 350 H (4-34) U/L Alkaline Phosphatase 129 H (38-126) U/L
--- NOTE | 2024-08-24 13:41 | P.PN ---
Subjective Progress Note Date: 08/24/24 DVT, cellulitis. Pulmonary consult dated August 17, 2024. 48-year-old female very poor historian, who apparently presented to the emergency department on August 16, at about 3:45 in the afternoon. The patient apparently came in complaining of bilateral lower extremity pain, and swelling. The patient denied any respiratory issues including shortness of breath, cough, wheezing, chest tightness, and phlegm production. The patient has a previous history of a right BKA, and a left trans metatarsal amputation. The patient had Dopplers done, and apparently on the right side, there was a DVT noted. She is currently on IV heparin. She does use home oxygen at 2 L. Here she is on 3 L. Her saturations are between 93 and 95%. In addition IV heparin she is getting saline at 20 cc an hour. I asked her about smoking, he apparently started smoking at the age of 11. She could not remember when she stopped smoking. She apparently has a history of diabetes, heart failure, COPD/asthma, CVA, DVT, hypertension, myocardial infarction, pneumonia, and seizure disorder. She has had previous infections, including ESBL, and VRE infections. Also, the patient has had a previous history of an AICD placement, and heart catheterization. Current labs include a white count of 12.8, hemoglobin 11.1, hematocrit 39.3, and a normal platelet count. The patient's PTT is 100.8. She had blood gases done twice. The first blood gas, showed a pO2 of 32, pCO2 of 49, pH of 7.24. I do not know that is believable. The second blood gas seems much more believable with a pO2 of 80, pCO2 of 44, pH of 7.25. Chest x-ray shows some very mild pulmonary vascular congestion, and some cardiomegaly. Progress note dated August 18, 2024. 48-year-old female that I saw yesterday in consultation. Please see my note above. The patient was admitted with a diagnosis of DVT, of the right lower extremity. The patient is seen today in room 474. She is lethargic like she was yesterday. She is on 3 L nasal cannula. Saturations are 98%. Her N- terminal proBNP was 21,900. Her procalcitonin level was elevated at 1.22. She remains on Rocephin and daptomycin as per infectious diseases. White count 10.8, hemoglobin 10.4, hematocrit 35.8, platelet count 244,000. Sodium 134, pot assium 5.5, chlorides 101, CO2 19, anion gap 14, BUN 58, creatinine 2.78. AST is 1556. ALT is 656. Urinalysis suggest the possibility of a urinary tract infection. Thus far, cultures are negative. Brain CT was negative. It did show an old lacunar infarct left thalamus. The perfusion study was nondiagnostic as expected, given the abnormality of the chest x-ray. Progress note dated August 19, 2024. 48-year-old female seen in consultation 2 days ago. The patient was admitted with a diagnosis of DVT, of the right lower extremity. In addition, she may have a urinary tract infection, as well as infection of the left foot. Currently, she is on 3 L of oxygen. She is getting saline at 75 cc an hour. She continues on Rocephin and daptomycin. She has been seen by infectious diseases. Current laboratory data includes a white count of 9.4, hemoglobin 10.6, hematocrit 35.8, and a platelet count of 236,000. Sodium 134, potassium 5, chlorides 103, CO2 18, BUN 61, creatinine 2.02. AST is 1165. ALT is 639. Wound culture, from the left foot, shows presumptive Staph aureus. 08/20/2024, I was asked to evaluate this patient on an emergent basis as the patient had significant decline in her condition over the past 24 hours. This is a 48-year-old female patient who came into the emergency department because of severe right lower extremity pain and recent fall from her wheelchair during transfers. She remains a very poor historian at the time of my evaluation, the patient was very lethargic and obtunded. 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 The patient had a low blood sugar. At the same time, the patient had become severely acidotic. Blood work from earlier this morning showed a lactic acid of 9.2, serum bicarb was at 6 with an anion gap of 22, BS was 63 with a creatinine of 1.99 and the potassium level was at 5.6. The patient was given D50 on the medical floor. I made recommendation to transfer the patient to immediately to the intensive care unit. The patient was clearly hypotensive. I was not able to accurately measure the blood pressure. In the ICU, the patient was started on norepinephrine and 0.1 mcg/kg/min. Same time, a central line was established and arterial line was also established. Urine output is minimal at this point. The most recent blood gas from the art line showed a pH of 7.19 with a pCO2 of 28 and pO2 of 207 and this was done on 100% nonrebreather facemask. The patient's white cell count is currently at 16.3 with a hemoglobin 11.8 and a platelet count of 263. The cultures from the left foot is showing Staph aureus and Prevotella and the patient is currently on IV Rocephin and daptomycin per ID recommendations. She is obtunded, lethargic, no significant agitation. Able to communicate upon stimulation. She has a DVT of the right lower extremity and the patient is on anticoagulation with Eliquis. The Doppler of the lower extremity on the left showed no evidence of any DVT. The clot on the right is believed to be in the mid/distal popliteal vein. She does have changes consistent with soft tissue infection/cellulitis of the lower extremities. Noted extremities were essentially cold and clammy and agreement with underlying sepsis/septic shock. Noted the patient also has severe ca rdiomyopathy. Echocardiogram that was done on 01/30/2024 showed left ventricular ejection fraction estimated to be around 15 to 20%. She also had moderate RV dilatation and severe pulm hypertension with an estimated PA pressure of around 61. There is also moderate degree of mitral regurgitation moderate to severe tricuspid regurgitation. Bourne catheter is in place. No focal neurological deficit at this point in time. 08/21/2024, the patient is being seen for a follow-up. The patient was crit ically ill yesterday and for that reason the patient got transferred to the intensive care that she received aggressive fluid resuscitation. She received a total of 2 L of IV fluids in the form of normal saline and the patient remains on a bicarb infusion running at 150 cc an hour. Urine output remains low and the net fluid balance is +3.5 L over the past 24 hours. Pressors were discontinued this morning. She was on a low-dose norepinephrine earlier at 0.02 mcg/kg/min and this has been discontinued. She is on 2 L of oxygen by nasal cannula. No significant respiratory distress. No further episodes of hypoglycemia. Lactic acid level dropped from 11.4 down to 3.8. Awake and alert and communicating. The left lower extremity is significantly cold and questionable pulses in the posterior tibialis. WBC count is 11.7 with hemoglobin 10.5 and a platelet count of 252. Follow-up blood 2 L of O2 Showed pH of 7.34 with pCO2 of 40 and pO2 of 90. The Patient's Sodium Levels at 126, BUN Is 56 with a Creatinine of 2.2 and a Potassium of Is at 4.7. She Has a Shock Liver with AST of 2378, ALT of 1144 and Alkaline Phosphatase of 120. Albumin Level Is at 3.9. She Remains on Rocephin and Daptomycin. She Is Currently off Pressors. She Remains on Anticoagulation and She Remains on Eliq uis. 08/22/2024, the patient is being seen for a follow-up. Clinically, alert and awake and communicating. No significant respiratory distress and the patient is currently on 4 L of oxygen by nasal cannula. The cellulitis lower extremities is stable and the patient is currently on IV cefazolin and Flagyl. Antibiotic modification was done by infectious disease. Hemodynamically stable. The pat ient is currently off pressors. The lower extremity was evaluated by vascular surgery and there is pulses in the left lower extremity noted and no vascular intervention is recommended at this point in time. The patient was in a bicarb infusion and the patient will be switched to normal citrate of 50 cc an hour. In terms of the labs, the white cell count is at 9 with a hemoglobin 10.2 and a platelet count of 239. BUN is 60 with a creatinine of 12 sodium levels at 132. No focal neurological deficit at this point in time. Able to swallow. Able to take oral medication and the patient is on Eliquis for long-term anticoagulation. 08/23/2024, the patient is being seen for a follow-up. Awake and alert and communicating. Hemodynamically stable. No hypotension. The patient is off the bicarb infusion. IV fluids have been switched to KVO. Cellulitis of lower extremity improving. The patient has adequate pulses in all 4 extremities although they are quite diminished in the legs. She remains on IV cefazolin. The patient is also on oxygen at 2 L with an pulse ox of 97%. Labs from today shows a WBC count 10.4, it was 10.7 and a platelet count of 187. He is 54 and the creatinine is on the decline down to 1.58 and a sodium levels at 131. The patient also has shock liver and LFTs are essentially improving. No other significant events overnight. The patient is currently on IV cefazolin. 08/24/2024, seen the patient for a follow-up. Patient is doing well. Awake and alert and communicating. No specific complaints. Altered mentation. She remains on IV cefazolin and oral Flagyl.. Adequate pulses lower extremities. Blood pressure is soft and the patient has not required any pressors for hemodynamic support. The patient is also on Entresto 1 tablet a day. No seizure activity has been noted. Renal function continues to improve and ablations blood work from today shows a drop in the creatinine down to 1.24 with a BUN of 50. Potassium level is at 3.8. WBC count is at 8.6 with a hemoglobin 7.4 and a platelet count of 185. Otherwise, no other significant events. No respiratory distress and the patient remains on oxygen at 2 L to maintain a saturation of around 95%. Objective - Vital Signs Vital signs: Vital Signs Temp 98.4 F 08/24/24 08:00 Pulse 88 08/24/24 09:00 Resp 10 L 08/24/24 09:00 BP 106/66 08/24/24 09:00 Pulse Ox 97 08/24/24 09:00 FiO2 100 08/20/24 18:00 Intake & Output 08/23/24 08/24/24 08/24/24 18:59 06:59 18:59 Intake Total 300 1530 30 Output Total 730 1135 200 Balance -430 395 -170 Weight 157.1 kg Intake: IV 300 90 30 0.9% NS KVO 90 30 Sodium Chloride 0.9% 1, 250 000 ml @ 50 mls/hr IV . Q20H [facility] Rx#:[id number] ceFAZolin 2 gm In Sodium 50 Chloride 0.9% 50 ml @ 100 mls/hr IVPB Q8H [facility] Rx#: [id number] Oral 1440 Output: Urine 730 1135 200 Other: Voiding Method Indwelling Catheter Indwelling Catheter # Bowel Movements 1 1 ABP, PAP, CO, CI - Last Documented Arterial Blood Pressure 111/62 - Exam No acute distress, alert and communicating and the patient is currently on 2 L of O2 nasal cannula HEENT examination is grossly unremarkable. Mucous membranes are moist. No oral lesions. Neck supple. Full range of motion. No adenopathy thyromegaly or neck vein distention. Cardiovascular examination reveals regular rhythm rate. S1-S2 normal. No S3 or S4. No discernible murmur noted. Sounds are distant. Lungs reveal mostly clear breath sounds. Minimal rhonchi. No wheezes or crackles. The patient is not particularly cooperative, so examination was not particularly beneficial. Abdomen soft, and obese. Bowel sounds are noted. No mass. Extremities revealed a right below the knee amputation, and transmetatarsal amputation on the left. The patient has a deep wound along the plantar aspect of the transmetatarsal amputation left lower extremity. Right lower extremity has a below-knee amputation the extremity is quite swollen. There is evidence of cellulitis in both lower extremities. Pulses are present although diminished in the left lower extremity. Cellulitis is improving. Skin is without rash or lesion. Wound in the left foot at the site of a previous transmetatarsal amputation was noted. No active drainage. Bone is exposed. Neurologic examination difficult to assess. No focal neurological deficit. - Labs CBC & Chem 7: 08/24/24 03:00 08/24/24 08:45 Labs: Abnormal Lab Results - Last 24 Hours (Table) 08/23/24 08/23/24 08/23/24 Range/Units 11:40 17:26 21:21 Hgb (11.4-16.0) gm/dL MCH (25.0-35.0) pg MCHC (31.0-37.0) g/dL RDW (11.5-15.5) % Lymphocytes # (Manual) (1.0-4.8) k/uL Nucleated RBCs (0-0) /100 WBC Sodium (137-145) mmol/L Potassium (3.5-5.1) mmol/L BUN (7-17) mg/dL Creatinine (0.52-1.04) mg/dL Glucose (74-99) mg/dL POC Glucose (mg/dL) 138 H 123 H 137 H (70-110) mg/dL Calcium (8.4-10.2) mg/dL Total Bilirubin (0.2-1.3) mg/dL AST (14-36) U/L ALT (4-34) U/L Alkaline Phosphatase (38-126) U/L 08/24/24 08/24/24 08/24/24 Range/Units 03:00 03:00 06:47 Hgb 10.4 L (11.4-16.0) gm/dL MCH 24.0 L (25.0-35.0) pg MCHC 29.1 L (31.0-37.0) g/dL RDW 19.6 H (11.5-15.5) % Lymphocytes # (Manual) 0.69 L (1.0-4.8) k/uL Nucleated RBCs 1 H (0-0) /100 WBC Sodium 128 L (137-145) mmol/L Potassium 5.3 H (3.5-5.1) mmol/L BUN 50 H (7-17) mg/dL Creatinine 1.24 H (0.52-1.04) mg/dL Glucose 126 H (74-99) mg/dL POC Glucose (mg/dL) 111 H (70-110) mg/dL Calcium 7.9 L (8.4-10.2) mg/dL Total Bilirubin 3.1 H (0.2-1.3) mg/dL AST 703 H (14-36) U/L ALT 350 H (4-34) U/L Alkaline Phosphatase 129 H (38-126) U/L Assessment and Plan Plan: septic shock, likely secondary to soft tissue infection/cellulitis in addition to a wound in the left foot at the site of a transmetatarsal amputation. The patient has a chronic stage IV ulcer that has no active drainage at this point in time. Cultures were noted and it is positive for Staph aureus and Prevotella. The patient is currently on IV cefazolin and Flagyl oral and hemodynamically stable on no pressors. Clinically and hemodynamically stable. Will Acute lactic acidosis, improved and the lactic acid level is normalizing Severe anion gap metabolic acidosis, improved Acute hyperkalemia, improved , Acute hypoglycemia, likely secondary to above, improved Altered mentation secondary to above, improved Cellulitis of the lower extremities bilaterally, currently on a combination of IV cefazolin Acute on chronic kidney injury with secondary oliguria, consider underlying ATN, renal function continues to improve Right lower extremity DVT, on Eliquis Severe cardiomyopathy with an ejection fraction of 10 to 15% Severe pulmonary hypertension, likely group 2/3 pulmonary hypertension with severe dilatation of the RV Severe peripheral vascular disease, Prior right below the knee amputation, and left transmetatarsal amputation. Vascular surgery is on the case History of COPD/asthma. Diabetes mellitus, with ongoing episodes of hypoglycemia History of CVA. Coronary artery disease with prior history of myocardial infarction. History of hypertension. History of DVT. Obesity. Multiple drug-resistant infections. History of pacemaker implantation/defibrillator Plan: Clinically stable Patient is currently on 2L of O2 nasal cannula, chest x-ray showing cardiomegaly with mild pulm vascular congestion. Otherwise no other acute abnormalities have been noted. Mental status improved Lactic acid level is dropped IV fluids to KVO Monitor blood sugar Continue cefazolin, IV and the patient is also on Flagyl Continue anticoagulation with Eliquis Entresto was restarted The patient can be transferred to medical surgical unit Critically ill female patient was a full CODE STATUS.
--- NOTE | 2024-08-24 15:08 | P.PN ---
Subjective Progress Note Date: 08/24/24 Principal diagnosis: Reason for follow-up is left diabetic foot ulcer and cellulitis Patient is a 48-year female with multiple comorbidities including diabetes mellitus the patient did have a right diabetic foot infection requiring right below the amputation and a chronic nonhealing wound to the left foot to be getting to the hospital with cellulitis to the left lower extremity and wound infection. On today's evaluation that is 08/24/2024, Patient is afebrile patient is currently on 2 L nasal cannula oxygen, the patient is more awake and alert today and denies having any shortness of breath, the patient denies any chest pain or cough, the patient denies any nausea vomiting did not have any abdominal pain and no diarrhea, denies any worsening pain to the left lower extremity. The patient white count is 8.6, creatinine is 1.24 Objective - Vital Signs Vital signs: Vital Signs Temp 98.4 F 08/24/24 08:00 Pulse 90 08/24/24 12:00 Resp 11 L 08/24/24 12:00 BP 106/66 08/24/24 12:00 Pulse Ox 95 08/24/24 12:00 FiO2 100 08/20/24 18:00 Intake & Output 08/23/24 08/24/24 08/24/24 18:59 06:59 18:59 Intake Total 300 1530 60 Output Total 730 1135 525 Balance -430 395 -465 Weight 157.1 kg Intake: IV 300 90 60 0.9% NS KVO 90 60 Sodium Chloride 0.9% 1, 250 000 ml @ 50 mls/hr IV . Q20H [facility] Rx#:[id number] ceFAZolin 2 gm In Sodium 50 Chloride 0.9% 50 ml @ 100 mls/hr IVPB Q8H [facility] Rx#: [id number] Oral 1440 Output: Urine 730 1135 525 Other: Voiding Method Indwelling Catheter Indwelling Catheter Indwelling Catheter # Bowel Movements 1 1 ABP, PAP, CO, CI - Last Documented Arterial Blood Pressure 111/62 - Exam GENERAL DESCRIPTION: Middle-age female lying in bed in no distress RESPIRATORY SYSTEM: Unlabored breathing , decreased breath sounds at bases HEART: S1 S2 regular rate and rhythm , ABDOMEN: Soft , no tenderness EXTREMITIES: Left leg not is cool to touch swelling persist - Labs CBC & Chem 7: 08/24/24 03:00 08/24/24 08:45 Labs: Abnormal Lab Results - Last 24 Hours (Table) 08/23/24 08/23/24 08/24/24 Range/Units 17:26 21:21 03:00 Hgb 10.4 L (11.4-16.0) gm/dL MCH 24.0 L (25.0-35.0) pg MCHC 29.1 L (31.0-37.0) g/dL RDW 19.6 H (11.5-15.5) % Lymphocytes # (Manual) 0.69 L (1.0-4.8) k/uL Nucleated RBCs 1 H (0-0) /100 WBC Sodium (137-145) mmol/L Potassium (3.5-5.1) mmol/L BUN (7-17) mg/dL Creatinine (0.52-1.04) mg/dL Glucose (74-99) mg/dL POC Glucose (mg/dL) 123 H 137 H (70-110) mg/dL Calcium (8.4-10.2) mg/dL Total Bilirubin (0.2-1.3) mg/dL AST (14-36) U/L ALT (4-34) U/L Alkaline Phosphatase (38-126) U/L 08/24/24 08/24/24 08/24/24 Range/Units 03:00 06:47 11:45 Hgb (11.4-16.0) gm/dL MCH (25.0-35.0) pg MCHC (31.0-37.0) g/dL RDW (11.5-15.5) % Lymphocytes # (Manual) (1.0-4.8) k/uL Nucleated RBCs (0-0) /100 WBC Sodium 128 L (137-145) mmol/L Potassium 5.3 H (3.5-5.1) mmol/L BUN 50 H (7-17) mg/dL Creatinine 1.24 H (0.52-1.04) mg/dL Glucose 126 H (74-99) mg/dL POC Glucose (mg/dL) 111 H 124 H (70-110) mg/dL Calcium 7.9 L (8.4-10.2) mg/dL Total Bilirubin 3.1 H (0.2-1.3) mg/dL AST 703 H (14-36) U/L ALT 350 H (4-34) U/L Alkaline Phosphatase 129 H (38-126) U/L Assessment and Plan (1) Cellulitis of left foot Current Visit: Yes Status: Acute Code(s): L03.116 - CELLULITIS OF LEFT LOWER LIMB SNOMED Code(s): 31501688984990668 (2) Allergy to multiple antibiotics Current Visit: No Status: Acute Code(s): Z88.1 - ALLERGY STATUS TO OTHER ANTIBIOTIC AGENTS SNOMED Code(s): 662657671 (3) Diabetic ulcer of left foot Current Visit: No Status: Acute Code(s): E11.621 - TYPE 2 DIABETES MELLITUS WITH FOOT ULCER; L97.529 - NON-PRESSURE CHRONIC ULCER OTH PRT LEFT FOOT W UNSP SEVERITY SNOMED Code(s): 925731902 Plan: 1patient with a chronic nonhealing wound to the left foot plantar aspect now wi th evidence of left lower extremity cellulitis likely being treated for this episode of cellulitis and will need to cover for the gram-positive as well as gram-negative pathogen. 2patient with multiple antibiotic ALLERGIES that would limit the number of antibiotic safe to use 3local wound culture currently growing MSSA and Prevotella 4-patient did have cold left lower extremity vascular surgery has been consulted mentioning possible related to pressors and did have improvement no surgical intervention 5patient remains to be afebrile patient white count has normalized, 6-patient to continue with the current treatment of cefazolin and Flagyl and monitor clinical course closely Dictation was produced using [employer] dictation software. please excuse any grammatical, word or spelling errors.
[2024-08-24 19:08] LABS: Glucose,Whole Blood 139 mg/dL (70-110)
[2024-08-24 19:50] LABS: Glucose,Whole Blood 167 mg/dL (70-110)
[2024-08-25 07:26] LABS: Glucose,Whole Blood 97 mg/dL (70-110)
--- NOTE | 2024-08-25 09:40 | P.PN ---
Subjective Progress Note Date: 08/25/24 Patient is a 48-year-old female with a past medical history of right lower extremity DVT maintained on Eliquis, right BKA, and left TMA who presented to the emergency department with severe right lower extremity pain and recent falls from her wheelchair during transfers. She is a poor historian at the time of the interview. She is very lethargic and falls asleep while answering questionsAO x 2. She rarely opens her eyes without stimulus. During the interview she is noted to have increased respiratory effort, respiratory rate of 10-12, and small sluggish pupils. Narcan was administered and patient became more alert and respiratory rate improved to 16, AOx3, now able to complete full sentences but remains with eyes closed unless prompted to open. Now she states that she has been having bilateral lower extremity pain worse on the right with erythema and swelling of the right lower extremity. She reports compliance with her medications. She also reports some abdominal pain with a few episodes of vomitingappears nonbloody. She endorses pain in the right lower extremity. She denies chest pain, shortness of breath, current abdominal pain, nausea, vomiting. Femur x-ray unremarkable. Bilateral lower extremity venous Doppler showed positive right lower extremity DVT femoral vein to popliteal vein. EKG shows pacing by AICD. WBC 6.1, hemoglobin 10.1, platelets 179, PT 13.3, INR 1.3, sodium 136, potassium 4.6, CO2 20, creatinine 1.73, GFR 34, lactic acid 2.2, phosphorus 4.6, CRP 2.9, TSH 27.6. Afebrile, normotensive, tachycardic in the low 100s saturating well on room air. 08/18. Patient seen sleeping in bed. Still with eyes closed while conversing but will open them when prompted. States she's had no energy for days. Chest x-ray 08/17: Cardiomegaly and mild pulmonary vascular congestion. Brain CT 08/17: No acute intracranial process, old lacunar infarct left thalamus. Pulmonary perfusion scan 08/18: No mismatch defect is evident, intermediate probability for acute pulmonary embolism. WBCs 10.8, hemoglobin 10.4, sodium 134, potassium 5.5, creatinine 2.78, hemoglobin A1c 6.5, N-terminal proBNP 21.9, procalcitonin 1.22. 08/19. Patient seen and examined. Ultrasound abdomen done showed no evidence for acute abdominal process, hepatic steatosis. Ultrasound of kidneys done showed nonobstructing right renal calculus. Patient stated she feels better, still has pain in the right BKA stump. 08/20. Patient seen laying in bed. Preliminary wound culture shows presumptive Staph aureus. Patient appears to be struggling to find her words/Labs: WBCs 16.3, hemoglobin 11.8, potassium 5.6, creatinine 1.99, total bilirubin 2.4. ABG: pH 7.26, pCO2 31, pO2 84, HCO3 14. Patient with worsening prognosis, transfer to ICU. 08/21. Patient seen and examined. Blood work done this morning showed WBC 11.7, hemoglobin 10.5, platelet count 252, sodium 126, potassium 4.7, BUN 53, creatinine 2.29 bilirubin 2.8, AST 2378, ALT 1144. Patient is lethargic, openin g eyes, answers question appropriately. 08/22. Patient seen and examined. Labs: WBCs 9.0, hemoglobin 10.2, sodium 132, potassium 4.1, CO2 25, BUN 60, creatinine 2.00. She remains lethargic. 08/23. Patient seen and examined. Labs: WBCs10.4, hemoglobin 10.7, sodium 131, potassium 3.7, BUN 54, creatinine 1.58, AST 978, ALT 490. 08/24. Patient seen at bedside. Lethargy improved. Patient states that she is doing well but endorses continued pain in her legs. Labs: sodium 128, potassium 5.3, BUN 50, creatinine 1.24, AST 703, ALT 350. 08/25. Patient examined at bedside. She was transferred to [facility] from the ICU yesterday. She states __. Labs pending Review of systems: ROS reviewed. Pertinent positives and negatives discussed above, a complete review of systems was performed and all the other systems were negative. Physical examination: Vital signs are reviewed. General: No acute distress. AO x 4. Morbidly obese. HEENT: Head exam is unremarkable. Lateral third of eyebrows thinning. EOMI bilaterally. ACs patent. Nares patent. Lungs: Bilateral breath sounds present; no rhonchi, wheezes, or rales. Heart: Rate and rhythm are regular. S1-S2 present. No murmur/rub/gallops. Abdomen: Soft, nontender, nondistended. Bowel sounds present. Extremities: Right BKA with erythema. Left TMA with ulcer on bottom now covered with gauze and LLE cellulitis and warmth. Psych: Normal affect and mood. Cooperative. Assessment/Plan: Sepsis, resolved Septic shock, resolved Left lower extremity cellulitis Continue IV Rocephin and daptomycin Continue IV fluids Monitor CBC Monitor CMP Monitor vitals Infectious disease following Acute toxic metabolic encephalopathy secondary to medications Judicious use of pain medication Acute transaminitis, improving Hepatic encephalopathy Avoid hepatotoxic agents Monitor LFTs Continue lactulose Acute kidney injury, improving Metabolic acidosis, improving Hyperkalemia due to YOLA and acidosis, improved Hyponatremia secondary to YOLA Monitor CPK while on daptomycin Strict I's and O's Daily weights Monitor renal function Continue IV fluids Avoid nephrotoxic agents Nephrology following Right lower extremity deep vein thrombosis Continue Eliquis Surgery consultedno surgical intervention at this time Heme/onc consulted-restarted Eliquis Acute hypoxemic respiratory failure Continue oxygen supplementation Aggressive bronchopulmonary hygiene Continue breathing treatments Critical care following Left foot ulcer Absorptive silver, saline moist gauze, dry gauze, rolled gauze and secured with paper tape change Tuesday, Tuesday, Tuesday per wound care Hypothyroidism Continue levothyroxine 50 mcg daily Diabetes mellitus type 2 Monitor glucose Insulin sliding scale DVT prophylaxis: Eliquis Chronic conditions: Recurrent DVTs, systolic CHF, chronic kidney disease stage IIIb, diabetes mellitus type 2, seizures, history of AICD placement, history of cardiac catheterizations Dr. Lei MD I have performed a history and physical examination and medical decision making of this patient, discussed the same with the the resident, and agree with the assessment and plan as written. I performed brief physical exam. Objective - Vital Signs Vital signs: Vital Signs Temp 97.7 F 08/25/24 01:38 Pulse 91 08/25/24 01:38 Resp 20 08/25/24 01:38 BP 120/76 08/25/24 01:38 Pulse Ox 98 08/25/24 01:38 FiO2 100 08/20/24 18:00 Intake & Output 08/24/24 08/25/24 08/25/24 18:59 06:59 18:59 Intake Total 690 240 Output Total 1375 700 Balance -685 -460 Weight 157.1 kg Intake: IV 90 0.9% NS KVO 90 Oral 600 240 Output: Urine 1375 700 Other: Voiding Method Indwelling Catheter External Catheter # Voids 1 # Bowel Movements 1 ABP, PAP, CO, CI - Last Documented Arterial Blood Pressure 111/62 - Labs CBC & Chem 7: 08/26/24 07:16 08/26/24 07:16 Labs: Abnormal Lab Results - Last 24 Hours (Table) 08/24/24 08/24/24 08/24/24 Range/Units 03:00 11:45 17:08 Hgb 10.4 L (11.4-16.0) gm/dL MCH 24.0 L (25.0-35.0) pg MCHC 29.1 L (31.0-37.0) g/dL RDW 19.6 H (11.5-15.5) % Lymphocytes # (Manual) 0.69 L (1.0-4.8) k/uL Nucleated RBCs 1 H (0-0) /100 WBC POC Glucose (mg/dL) 124 H 139 H (70-110) mg/dL 08/24/24 Range/Units 19:44 Hgb (11.4-16.0) gm/dL MCH (25.0-35.0) pg MCHC (31.0-37.0) g/dL RDW (11.5-15.5) % Lymphocytes # (Manual) (1.0-4.8) k/uL Nucleated RBCs (0-0) /100 WBC POC Glucose (mg/dL) 167 H (70-110) mg/dL
[2024-08-25 09:49] LABS: Basophils # (A) 0.05 X 10*3/uL (0.00-0.10); Basophils % (A) 0.7 %; Eosinophils # (A) 0.16 X 10*3/uL (0.04-0.35); Eosinophils % (A) 2.3 %; HCT 35.8 % (37.2-46.3); HGB 10.4 g/dL (12.0-15.0); Lymphocytes # (A) 0.53 X 10*3/uL (0.90-5.00); Lymphocytes % (A) 7.7 %; MCH 23.3 pg (27.0-32.0); MCHC 29.1 g/dL (32.0-37.0); MCV 80.1 FL (80.0-97.0); Mean Platelet Volume 10.8 FL (9.5-12.2); Monocytes % (A) 13.1 %; NRBC Per 100 WBC 0.18 X 10*3/uL (0.00-0.01); Neutrophils % (A) 75.5 %; Platelet Count 169 X 10*3/uL (140-440); RBC 4.47 X 10*6/uL (4.10-5.20); RDW 21.1 % (11.5-14.5); WBC 6.89 X 10*3/uL (4.50-10.00)
--- NOTE | 2024-08-25 11:12 | P.PN ---
Subjective Patient seen in follow-up for acute kidney injury. Resting in bed. Renal function improving. Nonoliguric. Oral intake is good. No active complaints. Vital signs are stable. General: No acute distress. HEENT: Head exam is unremarkable. On nasal cannula. LUNGS: No audible rhonchi or wheezes. HEART: Rate and Rhythm are regular. ABDOMEN: Obese, nontender. EXTREMITITES: Right BKA noted. Transmetatarsal amputation on the left noted. Erythema noted. Objective - Vital Signs Vital signs: Vital Signs Temp 97.6 F 08/25/24 07:35 Pulse 88 08/25/24 08:02 Resp 17 08/25/24 07:35 BP 109/70 08/25/24 07:35 Pulse Ox 97 08/25/24 07:53 FiO2 100 08/20/24 18:00 Intake & Output 08/24/24 08/25/24 08/25/24 18:59 06:59 18:59 Intake Total 690 240 Output Total 1375 700 Balance -685 -460 Weight 157.1 kg Intake: IV 90 0.9% NS KVO 90 Oral 600 240 Output: Urine 1375 700 Other: Voiding Method Indwelling Catheter External Catheter # Voids 1 # Bowel Movements 1 ABP, PAP, CO, CI - Last Documented Arterial Blood Pressure 111/62 - Labs CBC & Chem 7: 08/25/24 06:13 08/24/24 08:45 Labs: Abnormal Lab Results - Last 24 Hours (Table) 08/24/24 08/24/24 08/24/24 Range/Units 11:45 17:08 19:44 Hgb (12.0-15.0) g/dL Hct (37.2-46.3) % MCH (27.0-32.0) pg MCHC (32.0-37.0) g/dL RDW (11.5-14.5) % Immature Gran # (0.00-0.04) X 10*3/uL Lymphocytes # (0.90-5.00) X 10*3/uL NRBC/100 WBC Diff (0.00-0.01) X 10*3/uL POC Glucose (mg/dL) 124 H 139 H 167 H (70-110) mg/dL 08/25/24 Range/Units 06:13 Hgb 10.4 L (12.0-15.0) g/dL Hct 35.8 L (37.2-46.3) % MCH 23.3 L (27.0-32.0) pg MCHC 29.1 L (32.0-37.0) g/dL RDW 21.1 H (11.5-14.5) % Immature Gran # 0.05 H (0.00-0.04) X 10*3/uL Lymphocytes # 0.53 L (0.90-5.00) X 10*3/uL NRBC/100 WBC Diff 0.18 H (0.00-0.01) X 10*3/uL POC Glucose (mg/dL) (70-110) mg/dL Assessment and Plan Assessment: 1. Acute kidney injury secondary to ATN secondary to septic shock. Baseline creatinine near 1. Renal function improving. Creatinine 1.24 yesterday. Nonoliguric. No hydronephrosis noted on kidney ultrasound. Left kidney not visualized due to patient body habitus. 2. Hyperkalemia due to YOLA and acidosis. Improved. 3. AGMA from lactic acidosis with non-anion gap metabolic acidosis from IVF with respiratory acidosis. Status post bicarb drip. Improved. 4. CKD stage IIIa 2/2 cardiorenal syndrome. Cr baseline 1-1.1 5. CHFrEF (15-20%). 6. Hyponatremia secondary to acute kidney injury. Stable. 7. LLE cellulitis with DVT on antibiotics. Also on anticoagulation. 8. Type 2 Diabetes 9. Hypervolemic hyponatremia. Plan: Bumex 1 mg IV once today. Replace potassium as needed. Encouraged oral intake. Maintain fluid restriction. Avoid nephrotoxins. Continue to monitor renal function and urine output. Phosphorus level 4.7 dated August 21, 2024.
[2024-08-25 11:33] LABS: ALT 158 U/L (8-44); AST 362 U/L (13-35); Albumin 3.2 g/dL (3.8-4.9); Albumin/Globulin Ratio 0.97 Ratio (1.60-3.17); Alkaline Phosphatase 118 U/L (41-126); BUN/Creat Ratio 31.25 Ratio (12.00-20.00); Blood Urea Nitrogen 37.5 mg/dL (9.0-27.0); Calcium 7.9 mg/dL (8.7-10.3); Carbon Dioxide 23.3 mmol/L (21.6-31.8); Chloride 98 mmol/L (96-109); Globulin 3.3 g/dL (1.6-3.3); Glucose 119 mg/dL (70-110); Potassium 3.8 mmol/L (3.5-5.5); Sodium 134 mmol/L (135-145); Total Bilirubin 2.2 mg/dL (0.3-1.2); Total Protein 6.5 g/dL (6.2-8.2)
[2024-08-25 12:35] LABS: Glucose,Whole Blood 159 mg/dL (70-110)
[2024-08-25] MEDS: BUMETANIDE 0.25 MG/ML 4 ML VIAL IVP SCH (12:54)
--- NOTE | 2024-08-25 15:13 | P.PN ---
Subjective Progress Note Date: 08/25/24 DVT, cellulitis. Pulmonary consult dated August 17, 2024. 48-year-old female very poor historian, who apparently presented to the emergency department on August 16, at about 3:45 in the afternoon. The patient apparently came in complaining of bilateral lower extremity pain, and swelling. The patient denied any respiratory issues including shortness of breath, cough, wheezing, chest tightness, and phlegm production. The patient has a previous history of a right BKA, and a left trans metatarsal amputation. The patient had Dopplers done, and apparently on the right side, there was a DVT noted. She is currently on IV heparin. She does use home oxygen at 2 L. Here she is on 3 L. Her saturations are between 93 and 95%. In addition IV heparin she is getting saline at 20 cc an hour. I asked her about smoking, he apparently started smoking at the age of 11. She could not remember when she stopped smoking. She apparently has a history of diabetes, heart failure, COPD/asthma, CVA, DVT, hypertension, myocardial infarction, pneumonia, and seizure disorder. She has had previous infections, including ESBL, and VRE infections. Also, the patient has had a previous history of an AICD placement, and heart catheterization. Current labs include a white count of 12.8, hemoglobin 11.1, hematocrit 39.3, and a normal platelet count. The patient's PTT is 100.8. She had blood gases done twice. The first blood gas, showed a pO2 of 32, pCO2 of 49, pH of 7.24. I do not know that is believable. The second blood gas seems much more believable with a pO2 of 80, pCO2 of 44, pH of 7.25. Chest x-ray shows some very mild pulmonary vascular congestion, and some cardiomegaly. Progress note dated August 18, 2024. 48-year-old female that I saw yesterday in consultation. Please see my note above. The patient was admitted with a diagnosis of DVT, of the right lower extremity. The patient is seen today in room 474. She is lethargic like she was yesterday. She is on 3 L nasal cannula. Saturations are 98%. Her N- terminal proBNP was 21,900. Her procalcitonin level was elevated at 1.22. She remains on Rocephin and daptomycin as per infectious diseases. White count 10.8, hemoglobin 10.4, hematocrit 35.8, platelet count 244,000. Sodium 134, pot assium 5.5, chlorides 101, CO2 19, anion gap 14, BUN 58, creatinine 2.78. AST is 1556. ALT is 656. Urinalysis suggest the possibility of a urinary tract infection. Thus far, cultures are negative. Brain CT was negative. It did show an old lacunar infarct left thalamus. The perfusion study was nondiagnostic as expected, given the abnormality of the chest x-ray. Progress note dated August 19, 2024. 48-year-old female seen in consultation 2 days ago. The patient was admitted with a diagnosis of DVT, of the right lower extremity. In addition, she may have a urinary tract infection, as well as infection of the left foot. Currently, she is on 3 L of oxygen. She is getting saline at 75 cc an hour. She continues on Rocephin and daptomycin. She has been seen by infectious diseases. Current laboratory data includes a white count of 9.4, hemoglobin 10.6, hematocrit 35.8, and a platelet count of 236,000. Sodium 134, potassium 5, chlorides 103, CO2 18, BUN 61, creatinine 2.02. AST is 1165. ALT is 639. Wound culture, from the left foot, shows presumptive Staph aureus. 08/20/2024, I was asked to evaluate this patient on an emergent basis as the patient had significant decline in her condition over the past 24 hours. This is a 48-year-old female patient who came into the emergency department because of severe right lower extremity pain and recent fall from her wheelchair during transfers. She remains a very poor historian at the time of my evaluation, the patient was very lethargic and obtunded. She was having episodes of hypoglycemia since rheumatologist. The patient had a low blood sugar. At the same time, the patient had become severely acidotic. Blood work from earlier this morning showed a lactic acid of 9.2, serum bicarb was at 6 with an anion gap of 22, BS was 63 with a creatinine of 1.99 and the potassium level was at 5.6. The patient was given D50 on the medical floor. I made recommendation to transfer the patient to immediately to the intensive care unit. The patient was clearly hypotensive. I was not able to accurately measure the blood pressure. In the ICU, the patient was started on norepinephrine and 0.1 mcg/kg/min. Same time, a central line was established and arterial line was also established. Urine output is minimal at this point. The most recent blood gas from the art line showed a pH of 7.19 with a pCO2 of 28 and pO2 of 207 and this was done on 100% nonrebreather facemask. The patient's white cell count is currently at 16.3 with a hemoglobin 11.8 and a platelet count of 263. The cultures from the left foot is showing Staph aureus and Prevotella and the patient is currently on IV Rocephin and daptomycin per ID recommendations. She is obtunded, lethargic, no significant agitation. Able to communicate upon stimulation. She has a DVT of the right lower extremity and the patient is on anticoagulation with Eliquis. The Doppler of the lower extremity on the left showed no evidence of any DVT. The clot on the right is believed to be in the mid/distal popliteal vein. She does have changes consistent with soft tissue infection/cellulitis of the lower extremities. Noted extremities were essentially cold and clammy and agreement with underlying sepsis/septic shock. Noted the patient also has severe ca rdiomyopathy. Echocardiogram that was done on 01/30/2024 showed left ventricular ejection fraction estimated to be around 15 to 20%. She also had moderate RV dilatation and severe pulm hypertension with an estimated PA pressure of around 61. There is also moderate degree of mitral regurgitation moderate to severe tricuspid regurgitation. Bourne catheter is in place. No focal neurological deficit at this point in time. 08/21/2024, the patient is being seen for a follow-up. The patient was crit ically ill yesterday and for that reason the patient got transferred to the intensive care that she received aggressive fluid resuscitation. She received a total of 2 L of IV fluids in the form of normal saline and the patient remains on a bicarb infusion running at 150 cc an hour. Urine output remains low and the net fluid balance is +3.5 L over the past 24 hours. Pressors were discontinued this morning. She was on a low-dose norepinephrine earlier at 0.02 mcg/kg/min and this has been discontinued. She is on 2 L of oxygen by nasal cannula. No significant respiratory distress. No further episodes of hypoglycemia. Lactic acid level dropped from 11.4 down to 3.8. Awake and alert and communicating. The left lower extremity is significantly cold and questionable pulses in the posterior tibialis. WBC count is 11.7 with hemoglobin 10.5 and a platelet count of 252. Follow-up blood 2 L of O2 Showed pH of 7.34 with pCO2 of 40 and pO2 of 90. The Patient's Sodium Levels at 126, BUN Is 56 with a Creatinine of 2.2 and a Potassium of Is at 4.7. She Has a Shock Liver with AST of 2378, ALT of 1144 and Alkaline Phosphatase of 120. Albumin Level Is at 3.9. She Remains on Rocephin and Daptomycin. She Is Currently off Pressors. She Remains on Anticoagulation and She Remains on Eliq uis. 08/22/2024, the patient is being seen for a follow-up. Clinically, alert and awake and communicating. No significant respiratory distress and the patient is currently on 4 L of oxygen by nasal cannula. The cellulitis lower extremities is stable and the patient is currently on IV cefazolin and Flagyl. Antibiotic modification was done by infectious disease. Hemodynamically stable. The pat ient is currently off pressors. The lower extremity was evaluated by vascular surgery and there is pulses in the left lower extremity noted and no vascular intervention is recommended at this point in time. The patient was in a bicarb infusion and the patient will be switched to normal citrate of 50 cc an hour. In terms of the labs, the white cell count is at 9 with a hemoglobin 10.2 and a platelet count of 239. BUN is 60 with a creatinine of 12 sodium levels at 132. No focal neurological deficit at this point in time. Able to swallow. Able to take oral medication and the patient is on Eliquis for long-term anticoagulation. 08/23/2024, the patient is being seen for a follow-up. Awake and alert and communicating. Hemodynamically stable. No hypotension. The patient is off the bicarb infusion. IV fluids have been switched to KVO. Cellulitis of lower extremity improving. The patient has adequate pulses in all 4 extremities although they are quite diminished in the legs. She remains on IV cefazolin. The patient is also on oxygen at 2 L with an pulse ox of 97%. Labs from today shows a WBC count 10.4, it was 10.7 and a platelet count of 187. He is 54 and the creatinine is on the decline down to 1.58 and a sodium levels at 131. The patient also has shock liver and LFTs are essentially improving. No other significant events overnight. The patient is currently on IV cefazolin. 08/24/2024, seen the patient for a follow-up. Patient is doing well. Awake and alert and communicating. No specific complaints. Altered mentation. She remains on IV cefazolin and oral Flagyl.. Adequate pulses lower extremities. Blood pressure is soft and the patient has not required any pressors for hemodynamic support. The patient is also on Entresto 1 tablet a day. No seizure activity has been noted. Renal function continues to improve and ablations blood work from today shows a drop in the creatinine down to 1.24 with a BUN of 50. Potassium level is at 3.8. WBC count is at 8.6 with a hemoglobin 7.4 and a platelet count of 185. Otherwise, no other significant events. No respiratory distress and the patient remains on oxygen at 2 L to maintain a saturation of around 95%. On 08/25/2024, the patient is doing well. No significant respiratory distress. She is resting comfortably in bed. She was transferred out of the intensive care unit yesterday. White cell count is 6.8 with a hemoglobin of 10.4 and platelet count of 169. Sodium levels at 134, BUN 37 with a creatinine of 1.2. Bicarb level is 23. Medications are essentially unchanged. The patient remains on IV cefazolin and Flagyl. The patient was started on Entresto and she is able to maintain her pressure. The patient was also restarted on Bumex 1 mg IV on a daily basis. She remains on anticoagulation with Eliquis. Objective - Vital Signs Vital signs: Vital Signs Temp 97.6 F 08/25/24 07:35 Pulse 88 08/25/24 08:02 Resp 17 08/25/24 07:35 BP 109/70 08/25/24 07:35 Pulse Ox 97 08/25/24 07:53 FiO2 100 08/20/24 18:00 Intake & Output 08/24/24 08/25/24 08/25/24 18:59 06:59 18:59 Intake Total 690 240 Output Total 1375 700 Balance -685 -460 Weight 157.1 kg Intake: IV 90 0.9% NS KVO 90 Oral 600 240 Output: Urine 1375 700 Other: Voiding Method Indwelling Catheter External Catheter # Voids 1 # Bowel Movements 1 ABP, PAP, CO, CI - Last Documented Arterial Blood Pressure 111/62 - Exam No acute distress, alert and communicating and the patient is currently on 2 L of O2 nasal cannula HEENT examination is grossly unremarkable. Mucous membranes are moist. No oral lesions. Neck supple. Full range of motion. No adenopathy thyromegaly or neck vein distention. Cardiovascular examination reveals regular rhythm rate. S1-S2 normal. No S3 or S4. No discernible murmur noted. Sounds are distant. Lungs reveal mostly clear breath sounds. Minimal rhonchi. No wheezes or crackles. The patient is not particularly cooperative, so examination was not particularly beneficial. Abdomen soft, and obese. Bowel sounds are noted. No mass. Extremities revealed a right below the knee amputation, and transmetatarsal amputation on the left. The patient has a deep wound along the plantar aspect of the transmetatarsal amputation left lower extremity. Right lower extremity has a below-knee amputation the extremity is quite swollen. There is evidence of cellulitis in both lower extremities. Pulses are present although diminished in the left lower extremity. Cellulitis is improving. Skin is without rash or lesion. Wound in the left foot at the site of a previous transmetatarsal amputation was noted. No active drainage. Bone is exposed. Neurologic examination difficult to assess. No focal neurological deficit. - Labs CBC & Chem 7: 08/25/24 06:13 08/25/24 06:13 Labs: Abnormal Lab Results - Last 24 Hours (Table) 08/24/24 08/24/24 08/24/24 Range/Units 11:45 17:08 19:44 Hgb (12.0-15.0) g/dL Hct (37.2-46.3) % MCH (27.0-32.0) pg MCHC (32.0-37.0) g/dL RDW (11.5-14.5) % Immature Gran # (0.00-0.04) X 10*3/uL Lymphocytes # (0.90-5.00) X 10*3/uL NRBC/100 WBC Diff (0.00-0.01) X 10*3/uL POC Glucose (mg/dL) 124 H 139 H 167 H (70-110) mg/dL 08/25/24 Range/Units 06:13 Hgb 10.4 L (12.0-15.0) g/dL Hct 35.8 L (37.2-46.3) % MCH 23.3 L (27.0-32.0) pg MCHC 29.1 L (32.0-37.0) g/dL RDW 21.1 H (11.5-14.5) % Immature Gran # 0.05 H (0.00-0.04) X 10*3/uL Lymphocytes # 0.53 L (0.90-5.00) X 10*3/uL NRBC/100 WBC Diff 0.18 H (0.00-0.01) X 10*3/uL POC Glucose (mg/dL) (70-110) mg/dL Assessment and Plan Plan: septic shock, likely secondary to soft tissue infection/cellulitis in addition to a wound in the left foot at the site of a transmetatarsal amputation. The patient has a chronic stage IV ulcer that has no active drainage at this point in time. Cultures were noted and it is positive for Staph aureus and Prevotella. The patient is currently on IV cefazolin and Flagyl oral and hemodynamically stable on no pressors. Clinically and hemodynamically stable. Will Acute lactic acidosis, improved and the lactic acid level is normalizing Severe anion gap metabolic acidosis, improved Acute hyperkalemia, improved , Acute hypoglycemia, likely secondary to above, improved Altered mentation secondary to above, improved Cellulitis of the lower extremities bilaterally, currently on a combination of IV cefazolin Acute on chronic kidney injury with secondary oliguria, consider underlying ATN, renal function continues to improve Right lower extremity DVT, on Eliquis Severe cardiomyopathy with an ejection fraction of 10 to 15% Severe pulmonary hypertension, likely group 2/3 pulmonary hypertension with severe dilatation of the RV Severe peripheral vascular disease, Prior right below the knee amputation, and left transmetatarsal amputation. Vascular surgery is on the case History of COPD/asthma. Diabetes mellitus, with ongoing episodes of hypoglycemia History of CVA. Coronary artery disease with prior history of myocardial infarction. History of hypertension. History of DVT. Obesity. Multiple drug-resistant infections. History of pacemaker implantation/defibrillator Plan: Clinically stable Patient is currently on 2L of O2 nasal cannula, chest x-ray showing cardiomegaly with mild pulm vascular congestion. Otherwise no other acute abnormalities have been noted. Mental status improved IV fluids to KVO Started on Bumex 1 mg IV every 24 hours Monitor blood sugar Continue cefazolin and Flagyl Continue anticoagulation with Eliquis Entresto 1 tablet a day monitor the blood pressure The patient is currently on a medical floor full CODE STATUS.
[2024-08-25 17:24] LABS: Glucose,Whole Blood 145 mg/dL (70-110)
--- NOTE | 2024-08-25 17:29 | P.PN ---
Subjective Progress Note Date: 08/25/24 Principal diagnosis: Reason for follow-up is left diabetic foot ulcer and cellulitis Patient is a 48-year female with multiple comorbidities including diabetes mellitus the patient did have a right diabetic foot infection requiring right below the amputation and a chronic nonhealing wound to the left foot to be getting to the hospital with cellulitis to the left lower extremity and wound infection. On today's evaluation that is 08/25/2024, patient has been afebrile, patient is breathing comfortably and is currently on 2 L current oxygen patient denies having any significant cough no chest pain, patient denies nausea vomiting or diarrhea and no abdominal pain, denies pain to the lower extremity. Patient white count 6.89, creatinine is 1.2 Objective - Vital Signs Vital signs: Vital Signs Temp 97.9 F 08/25/24 14:29 Pulse 84 08/25/24 15:35 Resp 17 08/25/24 14:29 BP 105/73 08/25/24 14:29 Pulse Ox 97 08/25/24 14:29 FiO2 100 08/20/24 18:00 Intake & Output 08/24/24 08/25/24 08/25/24 18:59 06:59 18:59 Intake Total 690 240 358 Output Total 1375 700 Balance -685 -460 358 Weight 157.1 kg Intake: IV 90 0.9% NS KVO 90 Oral 600 240 358 Output: Urine 1375 700 Other: Voiding Method Indwelling Catheter External Catheter External Catheter # Voids 1 # Bowel Movements 1 ABP, PAP, CO, CI - Last Documented Arterial Blood Pressure 111/62 - Exam GENERAL DESCRIPTION: Middle-age female lying in bed in no distress RESPIRATORY SYSTEM: Unlabored breathing , decreased breath sounds at bases HEART: S1 S2 regular rate and rhythm , ABDOMEN: Soft , no tenderness EXTREMITIES: Left leg not is cool to touch swelling persist - Labs CBC & Chem 7: 08/25/24 06:13 08/25/24 06:13 Labs: Abnormal Lab Results - Last 24 Hours (Table) 08/24/24 08/24/24 08/25/24 Range/Units 17:08 19:44 06:13 Hgb 10.4 L (12.0-15.0) g/dL Hct 35.8 L (37.2-46.3) % MCH 23.3 L (27.0-32.0) pg MCHC 29.1 L (32.0-37.0) g/dL RDW 21.1 H (11.5-14.5) % Immature Gran # 0.05 H (0.00-0.04) X 10*3/uL Lymphocytes # 0.53 L (0.90-5.00) X 10*3/uL NRBC/100 WBC Diff 0.18 H (0.00-0.01) X 10*3/uL Sodium (135-145) mmol/L Anion Gap (4.00-12.00) mmol/L BUN (9.0-27.0) mg/dL Est GFR (CKD-EPI) (>=60) BUN/Creatinine Ratio (12.00-20.00) Ratio Glucose (70-110) mg/dL POC Glucose (mg/dL) 139 H 167 H (70-110) mg/dL Calcium (8.7-10.3) mg/dL Total Bilirubin (0.3-1.2) mg/dL AST (13-35) U/L ALT (8-44) U/L Albumin (3.8-4.9) g/dL Albumin/Globulin Ratio (1.60-3.17) Ratio 08/25/24 08/25/24 08/25/24 Range/Units 06:13 12:28 17:19 Hgb (12.0-15.0) g/dL Hct (37.2-46.3) % MCH (27.0-32.0) pg MCHC (32.0-37.0) g/dL RDW (11.5-14.5) % Immature Gran # (0.00-0.04) X 10*3/uL Lymphocytes # (0.90-5.00) X 10*3/uL NRBC/100 WBC Diff (0.00-0.01) X 10*3/uL Sodium 134 L (135-145) mmol/L Anion Gap 12.70 H (4.00-12.00) mmol/L BUN 37.5 H (9.0-27.0) mg/dL Est GFR (CKD-EPI) 55 L (>=60) BUN/Creatinine Ratio 31.25 H (12.00-20.00) Ratio Glucose 119 H (70-110) mg/dL POC Glucose (mg/dL) 159 H 145 H (70-110) mg/dL Calcium 7.9 L (8.7-10.3) mg/dL Total Bilirubin 2.2 H (0.3-1.2) mg/dL AST 362 H (13-35) U/L ALT 158 H (8-44) U/L Albumin 3.2 L (3.8-4.9) g/dL Albumin/Globulin Ratio 0.97 L (1.60-3.17) Ratio Assessment and Plan (1) Cellulitis of left foot Current Visit: Yes Status: Acute Code(s): L03.116 - CELLULITIS OF LEFT LOWER LIMB SNOMED Code(s): 07571233036143229 (2) Allergy to multiple antibiotics Current Visit: No Status: Acute Code(s): Z88.1 - ALLERGY STATUS TO OTHER ANTIBIOTIC AGENTS SNOMED Code(s): 759753292 (3) Diabetic ulcer of left foot Current Visit: No Status: Acute Code(s): E11.621 - TYPE 2 DIABETES MELLITUS WITH FOOT ULCER; L97.529 - NON-PRESSURE CHRONIC ULCER OTH PRT LEFT FOOT W UNSP SEVERITY SNOMED Code(s): 198301537 Plan: 1patient with a chronic nonhealing wound to the left foot plantar aspect now with evidence of left lower extremity cellulitis likely being treated for this episode of cellulitis and will need to cover for the gram-positive as well as gram-negative pathogen. 2patient with multiple antibiotic ALLERGIES that would limit the number of antibiotic safe to use 3local wound culture currently growing MSSA and Prevotella 4-patient did have cold left lower extremity vascular surgery has been consulted mentioning possible related to pressors and did have improvement no surgical intervention 5patient remains to be afebrile patient white count has normalized, we will continue with cefazolin and Flagyl and monitor clinical course closely Dictation was produced using [employer] dictation software. please excuse any gramma tical, word or spelling errors. Time with Patient: Less than 30
[2024-08-25 20:07] LABS: Glucose,Whole Blood 152 mg/dL (70-110)
[2024-08-26 07:39] LABS: Anisocytosis Slight; HCT 36.3 % (34.0-46.0); HGB 11.3 gm/dL (11.4-16.0); Hypochromasia Marked; MCH 24.9 pg (25.0-35.0); MCHC 31.1 g/dL (31.0-37.0); Mean Platelet Volume 8.5; Microcytosis Slight; Platelet Count 164 k/uL (150-450); Poikilocytosis Moderate; RBC 4.53 m/uL (3.80-5.40); RDW 19.8 % (11.5-15.5)
[2024-08-26 07:51] LABS: Glucose,Whole Blood 116 mg/dL (70-110)
[2024-08-26 08:20] LABS: Eosinophils # (M) 0.13 k/uL (0-0.7); Myelocytes # (M) 0.07 k/uL (0); Myelocytes % 1 %; Neutrophils % (M) 74 %; Nucleated Red Blood Cells 1 /100 WBC (0-0); Total Cells Counted 200
[2024-08-26 08:21] LABS: Lymphocytes # (M) 0.98 k/uL (1.0-4.8); Monocytes # (M) 0.65 k/uL (0-1.0); Neutrophils # (M) 4.81 k/uL (1.3-7.7); WBC 6.5 k/uL (3.8-10.6)
[2024-08-26 08:25] LABS: Ovalocytes Present; Polychromasia Present
[2024-08-26 08:30] LABS: ALT 122 U/L (4-34); AST 248 U/L (14-36); African American GFR (CKD) >90 (>60 ml/min/1.73 sqM); Albumin/Globulin Ratio 0.9; Alkaline Phosphatase 102 U/L (38-126); Anion Gap 9 mmol/L; Blood Urea Nitrogen 34 mg/dL (7-17); Calcium 8.2 mg/dL (8.4-10.2); Carbon Dioxide 24 mmol/L (22-30); Chloride 100 mmol/L (98-107); Globulin 3.5 g/dL; Glucose 95 mg/dL (74-99); Magnesium 1.6 mg/dL (1.6-2.3); Non-African American GFR(CKD) 80 (>60 ml/min/1.73 sqM); Potassium 4.2 mmol/L (3.5-5.1); Sodium 133 mmol/L (137-145); Total Bilirubin 2.2 mg/dL (0.2-1.3); Total Protein 6.5 g/dL (6.3-8.2)
--- NOTE | 2024-08-26 11:05 | CT ---
EXAMINATION TYPE: CT brain wo con DATE OF EXAM: 08/26/2024 COMPARISON: 08/17/2024 HISTORY: AMS CT DLP: 1184.4 mGycm Automated exposure control for dose reduction was used. Findings: The ventricles, basal cisterns and sulci over the convexities are within normal limits and there is n o mass effect or shift of midline structures. There is a remote lacunar infarct in the left thalamus. There is no acute intra or extra-axial hemorrhage. The posterior fossa including the brainstem, fourth ventricle and cerebellar pontine angles appear no rmal. Intraorbital contents appear normal and symmetric. Visualized paranasal sinuses. There is mild fluid in the left mastoid air cells.. The calvarium is intact. IMPRESSION: 1. No acute bleed or mass effect. 2. Remote lacunar infarct in the left thalamus. 3. Mild fluid in the left mastoid air cells. [facility], , 08/26/2024 11:03 AM
--- NOTE | 2024-08-26 11:41 | P.PN ---
Subjective Patient seen in follow-up for acute kidney injury. Renal function better. Nonoliguric. More confused today. Vital signs are stable. General: No acute distress. HEENT: Head exam is unremarkable. On nasal cannula. LUNGS: No audible rhonchi or wheezes. HEART: Rate and Rhythm are regular. ABDOMEN: Obese, nontender. EXTREMITITES: Right BKA noted. Transmetatarsal amputation on the left noted. Erythema noted. Objective - Vital Signs Vital signs: Vital Signs Temp 98.0 F 08/26/24 07:18 Pulse 92 08/26/24 08:10 Resp 16 08/26/24 07:18 BP 123/78 08/26/24 07:18 Pulse Ox 97 08/26/24 08:02 FiO2 100 08/20/24 18:00 Intake & Output 08/25/24 08/26/24 08/26/24 18:59 06:59 18:59 Intake Total 358 240 714 Output Total 1200 Balance -842 240 714 Intake: Oral 358 240 714 Output: Urine 1200 Other: Voiding Method External Catheter External Catheter # Voids 400 # Bowel Movements 1 ABP, PAP, CO, CI - Last Documented Arterial Blood Pressure 111/62 - Labs CBC & Chem 7: 08/26/24 07:16 08/26/24 07:16 Labs: Abnormal Lab Results - Last 24 Hours (Table) 08/25/24 08/25/24 08/25/24 Range/Units 12:28 17:19 20:01 Hgb (11.4-16.0) gm/dL MCH (25.0-35.0) pg RDW (11.5-15.5) % Lymphocytes # (Manual) (1.0-4.8) k/uL Myelocytes # (Manual) (0) k/uL Nucleated RBCs (0-0) /100 WBC Sodium (137-145) mmol/L BUN (7-17) mg/dL POC Glucose (mg/dL) 159 H 145 H 152 H (70-110) mg/dL Calcium (8.4-10.2) mg/dL Total Bilirubin (0.2-1.3) mg/dL AST (14-36) U/L ALT (4-34) U/L Albumin (3.5-5.0) g/dL 08/26/24 08/26/24 08/26/24 Range/Units 07:16 07:16 07:49 Hgb 11.3 L (11.4-16.0) gm/dL MCH 24.9 L (25.0-35.0) pg RDW 19.8 H (11.5-15.5) % Lymphocytes # (Manual) 0.98 L (1.0-4.8) k/uL Myelocytes # (Manual) 0.07 H (0) k/uL Nucleated RBCs 1 H (0-0) /100 WBC Sodium 133 L (137-145) mmol/L BUN 34 H (7-17) mg/dL POC Glucose (mg/dL) 116 H (70-110) mg/dL Calcium 8.2 L (8.4-10.2) mg/dL Total Bilirubin 2.2 H (0.2-1.3) mg/dL AST 248 H (14-36) U/L ALT 122 H (4-34) U/L Albumin 3.0 L (3.5-5.0) g/dL Assessment and Plan Assessment: 1. Acute kidney injury secondary to ATN secondary to septic shock. Baseline creatinine near 1. Renal function improving. Creatinine 0.86 today. Nonoliguric. No hydronephrosis noted on kidney ultrasound. Left kidney not visualized due to patient body habitus. 2. Hyperkalemia due to YOLA and acidosis. Improved. 3. AGMA from lactic acidosis with non-anion gap metabolic acidosis from IVF with respiratory acidosis. Status post bicarb drip. Improved. 4. CKD stage IIIa 2/2 cardiorenal syndrome. Cr baseline 1-1.1 5. CHFrEF (15-20%). 6. Hypervolemic hyponatremia. Stable. 7. LLE cellulitis with DVT on antibiotics. Also on anticoagulation. 8. Type 2 Diabetes Plan: Maintain IV Bumex. Replace potassium as needed. Add oral magnesium oxide. Encouraged oral intake. Maintain fluid restriction. Avoid nephrotoxins. Continue to monitor renal function and urine output. Phosphorus level 4.7 dated August 21, 2024. CT of the brain showed no acute changes.
[2024-08-26 12:19] LABS: Glucose,Whole Blood 141 mg/dL (70-110)
[2024-08-26] MEDS: MAGNESIUM OXIDE 400 MG TAB PO SCH (13:13)
--- NOTE | 2024-08-26 14:08 | P.PN ---
Subjective Progress Note Date: 08/26/24 Principal diagnosis: Reason for follow-up is left diabetic foot ulcer and cellulitis Patient is a 48-year female with multiple comorbidities including diabetes mellitus the patient did have a right diabetic foot infection requiring right below the amputation and a chronic nonhealing wound to the left foot to be getting to the hospital with cellulitis to the left lower extremity and wound infection. On today's evaluation that is 08/26/2024, Patient is afebrile this morning patient slightly lethargic today elevated good historian patient is currently on 2 L current oxygen orbital area and the change reported by the nursing staff. Patient white count 6.5, creatinine 0.86 ammonia level is less than 9 urine has been negative Objective - Vital Signs Vital signs: Vital Signs Temp 98.2 F 08/26/24 13:04 Pulse 103 H 08/26/24 13:04 Resp 16 08/26/24 13:04 BP 131/75 08/26/24 13:04 Pulse Ox 91 L 08/26/24 13:04 FiO2 100 08/20/24 18:00 Intake & Output 08/25/24 08/26/24 08/26/24 18:59 06:59 18:59 Intake Total 358 240 714 Output Total 1200 Balance -842 240 714 Weight 138.5 kg Intake: Oral 358 240 714 Output: Urine 1200 Other: Voiding Method External Catheter External Catheter # Voids 400 # Bowel Movements 1 ABP, PAP, CO, CI - Last Documented Arterial Blood Pressure 111/62 - Exam GENERAL DESCRIPTION: Middle-age female lying in bed in no distress RESPIRATORY SYSTEM: Unlabored breathing , decreased breath sounds at bases HEART: S1 S2 regular rate and rhythm , ABDOMEN: Soft , no tenderness EXTREMITIES: Left leg not is cool to touch swelling persist - Labs CBC & Chem 7: 08/26/24 07:16 08/26/24 07:16 Labs: Abnormal Lab Results - Last 24 Hours (Table) 08/25/24 08/25/24 08/26/24 Range/Units 17:19 20:01 07:16 Hgb 11.3 L (11.4-16.0) gm/dL MCH 24.9 L (25.0-35.0) pg RDW 19.8 H (11.5-15.5) % Lymphocytes # (Manual) 0.98 L (1.0-4.8) k/uL Myelocytes # (Manual) 0.07 H (0) k/uL Nucleated RBCs 1 H (0-0) /100 WBC Sodium (137-145) mmol/L BUN (7-17) mg/dL POC Glucose (mg/dL) 145 H 152 H (70-110) mg/dL Calcium (8.4-10.2) mg/dL Total Bilirubin (0.2-1.3) mg/dL AST (14-36) U/L ALT (4-34) U/L Albumin (3.5-5.0) g/dL 08/26/24 08/26/24 08/26/24 Range/Units 07:16 07:49 12:17 Hgb (11.4-16.0) gm/dL MCH (25.0-35.0) pg RDW (11.5-15.5) % Lymphocytes # (Manual) (1.0-4.8) k/uL Myelocytes # (Manual) (0) k/uL Nucleated RBCs (0-0) /100 WBC Sodium 133 L (137-145) mmol/L BUN 34 H (7-17) mg/dL POC Glucose (mg/dL) 116 H 141 H (70-110) mg/dL Calcium 8.2 L (8.4-10.2) mg/dL Total Bilirubin 2.2 H (0.2-1.3) mg/dL AST 248 H (14-36) U/L ALT 122 H (4-34) U/L Albumin 3.0 L (3.5-5.0) g/dL Assessment and Plan (1) Cellulitis of left foot Current Visit: Yes Status: Acute Code(s): L03.116 - CELLULITIS OF LEFT LOWER LIMB SNOMED Code(s): 76472227562263937 (2) Allergy to multiple antibiotics Current Visit: No Status: Acute Code(s): Z88.1 - ALLERGY STATUS TO OTHER ANTIBIOTIC AGENTS SNOMED Code(s): 513379192 (3) Diabetic ulcer of left foot Current Visit: No Status: Acute Code(s): E11.621 - TYPE 2 DIABETES MELLITUS WITH FOOT ULCER; L97.529 - NON-PRESSURE CHRONIC ULCER OTH PRT LEFT FOOT W UNSP SEVERITY SNOMED Code(s): 385528352 Plan: 1patient with a chronic nonhealing wound to the left foot plantar aspect now with evidence of left lower extremity cellulitis likely being treated for this episode of cellulitis and will need to cover for the gram-positive as well as gram-negative pathogen. 2patient with multiple antibiotic ALLERGIES that would limit the number of antibiotic safe to use 3local wound culture currently growing MSSA and Prevotella 4-patient did have cold left lower extremity vascular surgery has been consulted mentioning possible related to pressors and did have improvement no surgical intervention 5patient remains to be afebrile with a normal white count covered with the cefazolin Flagyl finishing therapy with oral antibiotics Dictation was produced using [employer] dictation software. please excuse any grammatical, word or spelling errors. Time with Patient: Less than 30
--- NOTE | 2024-08-26 14:37 | P.PN ---
Subjective Progress Note Date: 08/26/24 DVT, cellulitis. Pulmonary consult dated August 17, 2024. 48-year-old female very poor historian, who apparently presented to the emergency department on August 16, at about 3:45 in the afternoon. The patient apparently came in complaining of bilateral lower extremity pain, and swelling. The patient denied any respiratory issues including shortness of breath, cough, wheezing, chest tightness, and phlegm production. The patient has a previous history of a right BKA, and a left trans metatarsal amputation. The patient had Dopplers done, and apparently on the right side, there was a DVT noted. She is currently on IV heparin. She does use home oxygen at 2 L. Here she is on 3 L. Her saturations are between 93 and 95%. In addition IV heparin she is getting saline at 20 cc an hour. I asked her about smoking, he apparently started smoking at the age of 11. She could not remember when she stopped smoking. She apparently has a history of diabetes, heart failure, COPD/asthma, CVA, DVT, hypertension, myocardial infarction, pneumonia, and seizure disorder. She has had previous infections, including ESBL, and VRE infections. Also, the patient has had a previous history of an AICD placement, and heart catheterization. Current labs include a white count of 12.8, hemoglobin 11.1, hematocrit 39.3, and a normal platelet count. The patient's PTT is 100.8. She had blood gases done twice. The first blood gas, showed a pO2 of 32, pCO2 of 49, pH of 7.24. I do not know that is believable. The second blood gas seems much more believable with a pO2 of 80, pCO2 of 44, pH of 7.25. Chest x-ray shows some very mild pulmonary vascular congestion, and some cardiomegaly. Progress note dated August 18, 2024. 48-year-old female that I saw yesterday in consultation. Please see my note above. The patient was admitted with a diagnosis of DVT, of the right lower extremity. The patient is seen today in room 474. She is lethargic like she was yesterday. She is on 3 L nasal cannula. Saturations are 98%. Her N- terminal proBNP was 21,900. Her procalcitonin level was elevated at 1.22. She remains on Rocephin and daptomycin as per infectious diseases. White count 10.8, hemoglobin 10.4, hematocrit 35.8, platelet count 244,000. Sodium 134, pot assium 5.5, chlorides 101, CO2 19, anion gap 14, BUN 58, creatinine 2.78. AST is 1556. ALT is 656. Urinalysis suggest the possibility of a urinary tract infection. Thus far, cultures are negative. Brain CT was negative. It did show an old lacunar infarct left thalamus. The perfusion study was nondiagnostic as expected, given the abnormality of the chest x-ray. Progress note dated August 19, 2024. 48-year-old female seen in consultation 2 days ago. The patient was admitted with a diagnosis of DVT, of the right lower extremity. In addition, she may have a urinary tract infection, as well as infection of the left foot. Currently, she is on 3 L of oxygen. She is getting saline at 75 cc an hour. She continues on Rocephin and daptomycin. She has been seen by infectious diseases. Current laboratory data includes a white count of 9.4, hemoglobin 10.6, hematocrit 35.8, and a platelet count of 236,000. Sodium 134, potassium 5, chlorides 103, CO2 18, BUN 61, creatinine 2.02. AST is 1165. ALT is 639. Wound culture, from the left foot, shows presumptive Staph aureus. 08/20/2024, I was asked to evaluate this patient on an emergent basis as the patient had significant decline in her condition over the past 24 hours. This is a 48-year-old female patient who came into the emergency department because of severe right lower extremity pain and recent fall from her wheelchair during transfers. She remains a very poor historian at the time of my evaluation, the patient was very lethargic and obtunded. 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 The patient had a low blood sugar. At the same time, the patient had become severely acidotic. Blood work from earlier this morning showed a lactic acid of 9.2, serum bicarb was at 6 with an anion gap of 22, BS was 63 with a creatinine of 1.99 and the potassium level was at 5.6. The patient was given D50 on the medical floor. I made recommendation to transfer the patient to immediately to the intensive care unit. The patient was clearly hypotensive. I was not able to accurately measure the blood pressure. In the ICU, the patient was started on norepinephrine and 0.1 mcg/kg/min. Same time, a central line was established and arterial line was also established. Urine output is minimal at this point. The most recent blood gas from the art line showed a pH of 7.19 with a pCO2 of 28 and pO2 of 207 and this was done on 100% nonrebreather facemask. The patient's white cell count is currently at 16.3 with a hemoglobin 11.8 and a platelet count of 263. The cultures from the left foot is showing Staph aureus and Prevotella and the patient is currently on IV Rocephin and daptomycin per ID recommendations. She is obtunded, lethargic, no significant agitation. Able to communicate upon stimulation. She has a DVT of the right lower extremity and the patient is on anticoagulation with Eliquis. The Doppler of the lower extremity on the left showed no evidence of any DVT. The clot on the right is believed to be in the mid/distal popliteal vein. She does have changes consistent with soft tissue infection/cellulitis of the lower extremities. Noted extremities were essentially cold and clammy and agreement with underlying sepsis/septic shock. Noted the patient also has severe ca rdiomyopathy. Echocardiogram that was done on 01/30/2024 showed left ventricular ejection fraction estimated to be around 15 to 20%. She also had moderate RV dilatation and severe pulm hypertension with an estimated PA pressure of around 61. There is also moderate degree of mitral regurgitation moderate to severe tricuspid regurgitation. Bourne catheter is in place. No focal neurological deficit at this point in time. 08/21/2024, the patient is being seen for a follow-up. The patient was crit ically ill yesterday and for that reason the patient got transferred to the intensive care that she received aggressive fluid resuscitation. She received a total of 2 L of IV fluids in the form of normal saline and the patient remains on a bicarb infusion running at 150 cc an hour. Urine output remains low and the net fluid balance is +3.5 L over the past 24 hours. Pressors were discontinued this morning. She was on a low-dose norepinephrine earlier at 0.02 mcg/kg/min and this has been discontinued. She is on 2 L of oxygen by nasal cannula. No significant respiratory distress. No further episodes of hypoglycemia. Lactic acid level dropped from 11.4 down to 3.8. Awake and alert and communicating. The left lower extremity is significantly cold and questionable pulses in the posterior tibialis. WBC count is 11.7 with hemoglobin 10.5 and a platelet count of 252. Follow-up blood 2 L of O2 Showed pH of 7.34 with pCO2 of 40 and pO2 of 90. The Patient's Sodium Levels at 126, BUN Is 56 with a Creatinine of 2.2 and a Potassium of Is at 4.7. She Has a Shock Liver with AST of 2378, ALT of 1144 and Alkaline Phosphatase of 120. Albumin Level Is at 3.9. She Remains on Rocephin and Daptomycin. She Is Currently off Pressors. She Remains on Anticoagulation and She Remains on Eliq uis. 08/22/2024, the patient is being seen for a follow-up. Clinically, alert and awake and communicating. No significant respiratory distress and the patient is currently on 4 L of oxygen by nasal cannula. The cellulitis lower extremities is stable and the patient is currently on IV cefazolin and Flagyl. Antibiotic modification was done by infectious disease. Hemodynamically stable. The pat ient is currently off pressors. The lower extremity was evaluated by vascular surgery and there is pulses in the left lower extremity noted and no vascular intervention is recommended at this point in time. The patient was in a bicarb infusion and the patient will be switched to normal citrate of 50 cc an hour. In terms of the labs, the white cell count is at 9 with a hemoglobin 10.2 and a platelet count of 239. BUN is 60 with a creatinine of 12 sodium levels at 132. No focal neurological deficit at this point in time. Able to swallow. Able to take oral medication and the patient is on Eliquis for long-term anticoagulation. 08/23/2024, the patient is being seen for a follow-up. Awake and alert and communicating. Hemodynamically stable. No hypotension. The patient is off the bicarb infusion. IV fluids have been switched to KVO. Cellulitis of lower extremity improving. The patient has adequate pulses in all 4 extremities although they are quite diminished in the legs. She remains on IV cefazolin. The patient is also on oxygen at 2 L with an pulse ox of 97%. Labs from today shows a WBC count 10.4, it was 10.7 and a platelet count of 187. He is 54 and the creatinine is on the decline down to 1.58 and a sodium levels at 131. The patient also has shock liver and LFTs are essentially improving. No other significant events overnight. The patient is currently on IV cefazolin. 08/24/2024, seen the patient for a follow-up. Patient is doing well. Awake and alert and communicating. No specific complaints. Altered mentation. She remains on IV cefazolin and oral Flagyl.. Adequate pulses lower extremities. Blood pressure is soft and the patient has not required any pressors for hemodynamic support. The patient is also on Entresto 1 tablet a day. No seizure activity has been noted. Renal function continues to improve and ablations blood work from today shows a drop in the creatinine down to 1.24 with a BUN of 50. Potassium level is at 3.8. WBC count is at 8.6 with a hemoglobin 7.4 and a platelet count of 185. Otherwise, no other significant events. No respiratory distress and the patient remains on oxygen at 2 L to maintain a saturation of around 95%. On 08/25/2024, the patient is doing well. No significant respiratory distress. She is resting comfortably in bed. She was transferred out of the intensive care unit yesterday. White cell count is 6.8 with a hemoglobin of 10.4 and platelet count of 169. Sodium levels at 134, BUN 37 with a creatinine of 1.2. Bicarb level is 23. Medications are essentially unchanged. The patient remains on IV cefazolin and Flagyl. The patient was started on Entresto and she is able to maintain her pressure. The patient was also restarted on Bumex 1 mg IV on a daily basis. She remains on anticoagulation with Eliquis. 08/26/2024, the patient is resting comfortably in bed. No specific complaints. At times she is noted to be confused. Nevertheless, she remains hemodynamically stable. She remains afebrile. She remains on IV cefazolin and Flagyl. White cell count is at 6.5 with a hemoglobin of 11 and a platelet count of 164. Sodium is 133. Potassium is at 4.2, BUN 34 with a creatinine of 0.8. She is currently on 2 L of oxygen by nasal cannula with a pulse ox of 91%. Objective - Vital Signs Vital signs: Vital Signs Temp 98.0 F 08/26/24 07:18 Pulse 92 08/26/24 08:10 Resp 16 08/26/24 07:18 BP 123/78 08/26/24 07:18 Pulse Ox 97 08/26/24 08:02 FiO2 100 08/20/24 18:00 Intake & Output 08/25/24 08/26/24 08/26/24 18:59 06:59 18:59 Intake Total 358 240 714 Output Total 1200 Balance -842 240 714 Intake: Oral 358 240 714 Output: Urine 1200 Other: Voiding Method External Catheter External Catheter # Voids 400 # Bowel Movements 1 ABP, PAP, CO, CI - Last Documented Arterial Blood Pressure 111/62 - Exam No acute distress, alert and communicating and the patient is currently on 2 L of O2 nasal cannula HEENT examination is grossly unremarkable. Mucous membranes are moist. No oral lesions. Neck supple. Full range of motion. No adenopathy thyromegaly or neck vein distention. Cardiovascular examination reveals regular rhythm rate. S1-S2 normal. No S3 or S4. No discernible murmur noted. Sounds are distant. Lungs reveal mostly clear breath sounds. Minimal rhonchi. No wheezes or crackles. The patient is not particularly cooperative, so examination was not particularly beneficial. Abdomen soft, and obese. Bowel sounds are noted. No mass. Extremities revealed a right below the knee amputation, and transmetatarsal amputation on the left. The patient has a deep wound along the plantar aspect of the transmetatarsal amputation left lower extremity. Right lower extremity has a below-knee amputation the extremity is quite swollen. There is evidence of cellulitis in both lower extremities. Pulses are present although diminished in the left lower extremity. Cellulitis is improving. Skin is without rash or lesion. Wound in the left foot at the site of a previous transmetatarsal amputation was noted. No active drainage. Bone is exposed. Neurologic examination difficult to assess. No focal neurological deficit. - Labs CBC & Chem 7: 08/26/24 07:16 08/26/24 07:16 Labs: Abnormal Lab Results - Last 24 Hours (Table) 08/25/24 08/25/24 08/25/24 Range/Units 12:28 17:19 20:01 Hgb (11.4-16.0) gm/dL MCH (25.0-35.0) pg RDW (11.5-15.5) % Lymphocytes # (Manual) (1.0-4.8) k/uL Myelocytes # (Manual) (0) k/uL Nucleated RBCs (0-0) /100 WBC Sodium (137-145) mmol/L BUN (7-17) mg/dL POC Glucose (mg/dL) 159 H 145 H 152 H (70-110) mg/dL Calcium (8.4-10.2) mg/dL Total Bilirubin (0.2-1.3) mg/dL AST (14-36) U/L ALT (4-34) U/L Albumin (3.5-5.0) g/dL 08/26/24 08/26/24 08/26/24 Range/Units 07:16 07:16 07:49 Hgb 11.3 L (11.4-16.0) gm/dL MCH 24.9 L (25.0-35.0) pg RDW 19.8 H (11.5-15.5) % Lymphocytes # (Manual) 0.98 L (1.0-4.8) k/uL Myelocytes # (Manual) 0.07 H (0) k/uL Nucleated RBCs 1 H (0-0) /100 WBC Sodium 133 L (137-145) mmol/L BUN 34 H (7-17) mg/dL POC Glucose (mg/dL) 116 H (70-110) mg/dL Calcium 8.2 L (8.4-10.2) mg/dL Total Bilirubin 2.2 H (0.2-1.3) mg/dL AST 248 H (14-36) U/L ALT 122 H (4-34) U/L Albumin 3.0 L (3.5-5.0) g/dL Assessment and Plan Plan: septic shock, likely secondary to soft tissue infection/cellulitis in addition to a wound in the left foot at the site of a transmetatarsal amputation. The patient has a chronic stage IV ulcer that has no active drainage at this point in time. Cultures were noted and it is positive for Staph aureus and Prevotella. The patient is currently on IV cefazolin and Flagyl oral and hemodynamically stable on no pressors. Clinically and hemodynamically stable. Acute lactic acidosis, improved and the lactic acid level is normalizing Severe anion gap metabolic acidosis, improved Acute hyperkalemia, improved , Acute hypoglycemia, likely secondary to above, improved Altered mentation secondary to above, improved Cellulitis of the lower extremities bilaterally, currently on a combination of IV cefazolin Acute on chronic kidney injury with secondary oliguria, consider underlying ATN, renal function continues to improve Right lower extremity DVT, on Eliquis Severe cardiomyopathy with an ejection fraction of 10 to 15% Severe pulmonary hypertension, likely group 2/3 pulmonary hypertension with severe dilatation of the RV Severe peripheral vascular disease, Prior right below the knee amputation, and left transmetatarsal amputation. Vascular surgery is on the case History of COPD/asthma. Diabetes mellitus, with ongoing episodes of hypoglycemia History of CVA. Coronary artery disease with prior history of myocardial infarction. History of hypertension. History of DVT. Obesity. Multiple drug-resistant infections. History of pacemaker implantation/defibrillator Plan: Clinically stable and unchanged over the past 24 hours. The patient remains on the same treatment. Patient is currently on 2L of O2 nasal cannula, chest x-ray showing cardiomegaly with mild pulm vascular congestion. Otherwise no other acute abnormalities have been noted. Mental status improved although the patient continues to have some episodes of confusion. IV fluids to KVO Continue Bumex 1 mg IV every 24 hours Monitor blood sugar Continue cefazolin and Flagyl Continue anticoagulation with Eliquis Entresto 1 tablet a day monitor the blood pressure The patient is currently on a medical floor full CODE STATUS.
[2024-08-26 17:04] LABS: Glucose,Whole Blood 132 mg/dL (70-110)
[2024-08-26 20:23] LABS: Glucose,Whole Blood 141 mg/dL (70-110)
--- NOTE | 2024-08-26 20:23 | XR ---
EXAMINATION TYPE: XR chest 1V DATE OF EXAM: 08/26/2024 5:29 PM CLINICAL INDICATION:Female, 48 years old with history of SOB; [facility] COMPARISON: 08/23/2024 TECHNIQUE: XR chest 1V Portable AP radiograph of the chest.. FINDINGS: Exam limited by patient body habitus. Previous right IJ central venous line has apparently been removed. Stable left chest multilead pacema ker/AICD. Monitor leads overlie the chest. Cardiomediastinal silhouette is grossly stable. Heart appears enlarged. Compared to prior there is improved aeration of left perihilar infiltrate or atelectasis, however the left lung base and hemidiaphragm remain poorly visualized and infiltrate atelectasis and/or effusion could exist. There are increased and more extensive right perihilar infiltrates compared to before. Hilar region a ppears prominent and underlying consolidation or adenopathy may be present. No sizable right pleural effusion is seen. No visualized pneumothorax. Bones and soft tissues appear grossly unchanged as seen. IMPRESSION: 1. Interval removal of the right IJ central venous line. No pneumothorax. 2. Cardiomegaly with multilead pacemaker/AICD redemonstrated. 3. Compared to prior there is improved aeration of left perihilar infiltrate or atelectasis, however the left lung base and hemidiaphragm remain poorly visualized and infiltrate, atelectasis, and/or ef fusion could exist. 4. Increased right perihilar infiltrates compared to prior. Likely reflects infectious/inflammatory process and/or edema. Clinically correlate and continued follow-up to resolution. [facility], , 08/26/2024 8:20 PM
--- NOTE | 2024-08-26 21:46 | P.PN ---
Subjective Progress Note Date: 08/26/24 Patient is a 48-year-old female with a past medical history of right lower extremity DVT maintained on Eliquis, right BKA, and left TMA who presented to the emergency department with severe right lower extremity pain and recent falls from her wheelchair during transfers. She is a poor historian at the time of the interview. She is very lethargic and falls asleep while answering questionsAO x 2. She rarely opens her eyes without stimulus. During the interview she is noted to have increased respiratory effort, respiratory rate of 10-12, and small sluggish pupils. Narcan was administered and patient became more alert and respiratory rate improved to 16, AOx3, now able to complete full sentences but remains with eyes closed unless prompted to open. Now she states that she has been having bilateral lower extremity pain worse on the right with erythema and swelling of the right lower extremity. She reports compliance with her medications. She also reports some abdominal pain with a few episodes of vomitingappears nonbloody. She endorses pain in the right lower extremity. She denies chest pain, shortness of breath, current abdominal pain, nausea, vomiting. Femur x-ray unremarkable. Bilateral lower extremity venous Doppler showed positive right lower extremity DVT femoral vein to popliteal vein. EKG shows pacing by AICD. WBC 6.1, hemoglobin 10.1, platelets 179, PT 13.3, INR 1.3, sodium 136, potassium 4.6, CO2 20, creatinine 1.73, GFR 34, lactic acid 2.2, phosphorus 4.6, CRP 2.9, TSH 27.6. Afebrile, normotensive, tachycardic in the low 100s saturating well on room air. 08/18. Patient seen sleeping in bed. Still with eyes closed while conversing but will open them when prompted. States she's had no energy for days. Chest x-ray 08/17: Cardiomegaly and mild pulmonary vascular congestion. Brain CT 08/17: No acute intracranial process, old lacunar infarct left thalamus. Pulmonary perfusion scan 08/18: No mismatch defect is evident, intermediate probability for acute pulmonary embolism. WBCs 10.8, hemoglobin 10.4, sodium 134, potassium 5.5, creatinine 2.78, hemoglobin A1c 6.5, N-terminal proBNP 21.9, procalcitonin 1.22. 08/19. Patient seen and examined. Ultrasound abdomen done showed no evidence for acute abdominal process, hepatic steatosis. Ultrasound of kidneys done showed nonobstructing right renal calculus. Patient stated she feels better, still has pain in the right BKA stump. 08/20. Patient seen laying in bed. Preliminary wound culture shows presumptive Staph aureus. Patient appears to be struggling to find her words/Labs: WBCs 16.3, hemoglobin 11.8, potassium 5.6, creatinine 1.99, total bilirubin 2.4. ABG: pH 7.26, pCO2 31, pO2 84, HCO3 14. Patient with worsening prognosis, transfer to ICU. 08/21. Patient seen and examined. Blood work done this morning showed WBC 11.7, hemoglobin 10.5, platelet count 252, sodium 126, potassium 4.7, BUN 53, creatinine 2.29 bilirubin 2.8, AST 2378, ALT 1144. Patient is lethargic, openin g eyes, answers question appropriately. 08/22. Patient seen and examined. Labs: WBCs 9.0, hemoglobin 10.2, sodium 132, potassium 4.1, CO2 25, BUN 60, creatinine 2.00. She remains lethargic. 08/23. Patient seen and examined. Labs: WBCs10.4, hemoglobin 10.7, sodium 131, potassium 3.7, BUN 54, creatinine 1.58, AST 978, ALT 490. 08/24. Patient seen at bedside. Lethargy improved. Patient states that she is doing well but endorses continued pain in her legs. Labs: sodium 128, potassium 5.3, BUN 50, creatinine 1.24, AST 703, ALT 350. 08/25. Patient examined at bedside. She was transferred to [facility] from the ICU yesterday. She states __. Labs pending 08/26/2024 Patient is evaluated today on the medical floor. Patient with altered mentation today currently alert x 1. Negative brain CT. Ammonia level less than 9. She is having some shortness of breath. Renal function and LFTs are improving. Review of systems: ROS reviewed. Pertinent positives and negatives discussed above, a complete review of systems was performed and all the other systems were negative. Physical examination: Vital signs are reviewed. General: No acute distress. AO x 4. Morbidly obese. HEENT: Head exam is unremarkable. Lateral third of eyebrows thinning. EOMI bilaterally. ACs patent. Nares patent. Lungs: Bilateral breath sounds present; no rhonchi, wheezes, or rales. Heart: Rate and rhythm are regular. S1-S2 present. No murmur/rub/gallops. Abdomen: Soft, nontender, nondistended. Bowel sounds present. Extremities: Right BKA with erythema. Left TMA with ulcer on bottom now covered with gauze and LLE cellulitis and warmth. Psych: Normal affect and mood. Cooperative. Assessment/Plan: Left lower extremity cellulitis and sepsis with septic shock Continues on IV cefazolin and oral flagyl; with wound cultures of the left heel ulcer showing prevotella species and staphylococcus aureus Patient has been transferred out of the ICU. Continue IV fluids Monitor CBC Monitor CMP Monitor vitals Infectious disease following Acute toxic metabolic encephalopathy secondary to medications Judicious use of pain medication Worsening mentation today; ammonia level normal. Brain CT negative. Acute transaminitis, improving Hepatic encephalopathy Avoid hepatotoxic agents Monitor LFTs Continue lactulose Acute kidney injury, improving Metabolic acidosis, improving Hyperkalemia due to YOLA and acidosis, improved Hyponatremia secondary to YOLA Monitor CPK while on daptomycin Strict I's and O's Daily weights Monitor renal function Continue IV fluids Avoid nephrotoxic agents Nephrology following Right lower extremity deep vein thrombosis Continue Eliquis Surgery consultedno surgical intervention at this time Heme/onc consulted-restarted Eliquis Acute hypoxemic respiratory failure Continue oxygen supplementation Aggressive bronchopulmonary hygiene Continue breathing treatments Critical care following Left foot ulcer Absorptive silver, saline moist gauze, dry gauze, rolled gauze and secured with paper tape change Tuesday, Tuesday, Tuesday per wound care Hypothyroidism Continue levothyroxine 50 mcg daily Diabetes mellitus type 2 Monitor glucose Insulin sliding scale DVT prophylaxis: Eliquis Chronic conditions: Recurrent DVTs, systolic CHF, chronic kidney disease stage IIIb, diabetes mellitus type 2, seizures, history of AICD placement, history of cardiac catheterizations The impression and plan of care has been dictated by Lucila Rojas Nurse Practitioner as directed. Dr. Lei MD I have performed a history and physical examination and medical decision making of this patient, discussed the same with the dictator, and agree with the dictators assessment and plan as written, documented as a scribe. Based on total visit time, I have performed more than 50% of this visit. Objective - Vital Signs Vital signs: Vital Signs Temp 98.0 F 08/26/24 07:18 Pulse 92 08/26/24 08:10 Resp 16 08/26/24 07:18 BP 123/78 08/26/24 07:18 Pulse Ox 97 08/26/24 08:02 FiO2 100 08/20/24 18:00 Intake & Output 08/25/24 08/26/24 08/26/24 18:59 06:59 18:59 Intake Total 358 240 714 Output Total 1200 Balance -842 240 714 Intake: Oral 358 240 714 Output: Urine 1200 Other: Voiding Method External Catheter External Catheter # Voids 400 # Bowel Movements 1 ABP, PAP, CO, CI - Last Documented Arterial Blood Pressure 111/62 - Labs CBC & Chem 7: 08/26/24 07:16 08/26/24 07:16 Labs: Abnormal Lab Results - Last 24 Hours (Table) 08/25/24 08/25/24 08/25/24 Range/Units 06:13 12:28 17:19 Hgb (11.4-16.0) gm/dL MCH (25.0-35.0) pg RDW (11.5-15.5) % Lymphocytes # (Manual) (1.0-4.8) k/uL Myelocytes # (Manual) (0) k/uL Nucleated RBCs (0-0) /100 WBC Sodium 134 L (135-145) mmol/L Anion Gap 12.70 H (4.00-12.00) mmol/L BUN 37.5 H (9.0-27.0) mg/dL Est GFR (CKD-EPI) 55 L (>=60) BUN/Creatinine Ratio 31.25 H (12.00-20.00) Ratio Glucose 119 H (70-110) mg/dL POC Glucose (mg/dL) 159 H 145 H (70-110) mg/dL Calcium 7.9 L (8.7-10.3) mg/dL Total Bilirubin 2.2 H (0.3-1.2) mg/dL AST 362 H (13-35) U/L ALT 158 H (8-44) U/L Albumin 3.2 L (3.8-4.9) g/dL Albumin/Globulin Ratio 0.97 L (1.60-3.17) Ratio 08/25/24 08/26/24 08/26/24 Range/Units 20:01 07:16 07:16 Hgb 11.3 L (11.4-16.0) gm/dL MCH 24.9 L (25.0-35.0) pg RDW 19.8 H (11.5-15.5) % Lymphocytes # (Manual) 0.98 L (1.0-4.8) k/uL Myelocytes # (Manual) 0.07 H (0) k/uL Nucleated RBCs 1 H (0-0) /100 WBC Sodium 133 L (135-145) mmol/L Anion Gap (4.00-12.00) mmol/L BUN 34 H (9.0-27.0) mg/dL Est GFR (CKD-EPI) (>=60) BUN/Creatinine Ratio (12.00-20.00) Ratio Glucose (70-110) mg/dL POC Glucose (mg/dL) 152 H (70-110) mg/dL Calcium 8.2 L (8.7-10.3) mg/dL Total Bilirubin 2.2 H (0.3-1.2) mg/dL AST 248 H (13-35) U/L ALT 122 H (8-44) U/L Albumin 3.0 L (3.8-4.9) g/dL Albumin/Globulin Ratio (1.60-3.17) Ratio 08/26/24 Range/Units 07:49 Hgb (11.4-16.0) gm/dL MCH (25.0-35.0) pg RDW (11.5-15.5) % Lymphocytes # (Manual) (1.0-4.8) k/uL Myelocytes # (Manual) (0) k/uL Nucleated RBCs (0-0) /100 WBC Sodium (135-145) mmol/L Anion Gap (4.00-12.00) mmol/L BUN (9.0-27.0) mg/dL Est GFR (CKD-EPI) (>=60) BUN/Creatinine Ratio (12.00-20.00) Ratio Glucose (70-110) mg/dL POC Glucose (mg/dL) 116 H (70-110) mg/dL Calcium (8.7-10.3) mg/dL Total Bilirubin (0.3-1.2) mg/dL AST (13-35) U/L ALT (8-44) U/L Albumin (3.8-4.9) g/dL Albumin/Globulin Ratio (1.60-3.17) Ratio Assessment and Plan Time with Patient: Less than 30
[2024-08-27 07:06] LABS: Glucose,Whole Blood 133 mg/dL (70-110)
[2024-08-27 09:06] LABS: Calcium 8.5 mg/dL (8.7-10.3); Chloride 96 mmol/L (96-109); Glucose 142 mg/dL (70-110); Magnesium 1.5 mg/dL (1.5-2.4); Potassium 4.2 mmol/L (3.5-5.5); Sodium 134 mmol/L (135-145)
[2024-08-27 10:59] LABS: Glucose,Whole Blood 164 mg/dL (70-110)
[2024-08-27] MEDS ORDERED: QUEtiapine 25 MG TAB PO PRN (11:02)
--- NOTE | 2024-08-27 11:04 | P.PN ---
Subjective Progress Note Date: 08/27/24 The patient is seen today August 27, 2024 in follow-up on the regular medical floor. She is currently awake and alert in no acute distress. She does remain confused at times. She is currently maintaining good O2 saturations in the 90s on 2 L/min per nasal cannula. She remains on antibiotics in the form of cefazolin and Flagyl. She was positive for MSSA in the wound of her left foot. Chest x-ray reveals no evidence of pneumothorax. There is cardiomegaly. There is improved aeration of left perihilar infiltrate or atelectasis. Sodium 134. Potassium 4.2. Bicarb 23. BUN 27. Creatinine 1.0. Glucose 142. Continued on DuoNeb inhalations. Anticoagulated with Eliquis. Protonix for GI prophylaxis. Objective - Vital Signs Vital signs: Vital Signs Temp 98 F 08/27/24 07:31 Pulse 98 08/27/24 08:21 Resp 17 08/27/24 07:31 BP 141/73 08/27/24 07:31 Pulse Ox 98 08/27/24 07:57 FiO2 100 08/20/24 18:00 Intake & Output 08/26/24 08/27/24 08/27/24 18:59 06:59 18:59 Intake Total 1902 240 Output Total 501 600 Balance 1401 -600 240 Weight 138.5 kg Intake: Oral 1902 240 Output: Urine 500 600 Stool 1 Other: Voiding Method External Catheter External Catheter # Voids 2 # Bowel Movements 1 ABP, PAP, CO, CI - Last Documented Arterial Blood Pressure 111/62 - Exam A 48-year-old female patient in no acute distress, alert and communicating, currently on 2 L of O2 nasal cannula HEENT examination is grossly unremarkable. Mucous membranes are moist. No oral lesions. Neck supple. Full range of motion. No adenopathy thyromegaly or neck vein distention. Cardiovascular examination reveals regular rhythm rate. S1-S2 normal. No S3 or S4. No discernible murmur noted. Sounds are distant. Lungs reveal mostly clear breath sounds. Minimal rhonchi. No wheezes or crackles. Abdomen soft, and obese. Bowel sounds are noted. No mass. Extremities revealed a right below the knee amputation, and transmetatarsal amputation on the left. The patient has a deep wound along the plantar aspect of the transmetatarsal amputation left lower extremity. Right lower extremity has a below-knee amputation the extremity is quite swollen. There is evidence of cellulitis in both lower extremities. Pulses are present although diminished in the left lower extremity. Cellulitis is improving. Skin is without rash or lesion. Wound in the left foot at the site of a previous transmetatarsal amputation was noted. No active drainage. Bone is exposed. Neurologic examination difficult to assess. No focal neurological deficit. - Labs CBC & Chem 7: 08/26/24 07:16 08/27/24 05:56 Labs: Abnormal Lab Results - Last 24 Hours (Table) 08/26/24 08/26/24 08/26/24 Range/Units 12:17 17:02 20:22 Sodium (135-145) mmol/L Anion Gap (4.00-12.00) mmol/L BUN/Creatinine Ratio (12.00-20.00) Ratio Glucose (70-110) mg/dL POC Glucose (mg/dL) 141 H 132 H 141 H (70-110) mg/dL Calcium (8.7-10.3) mg/dL Troponin I (0.000-0.034) ng/mL 08/27/24 08/27/24 08/27/24 Range/Units 05:56 07:02 08:08 Sodium 134 L (135-145) mmol/L Anion Gap 15.00 H (4.00-12.00) mmol/L BUN/Creatinine Ratio 27.00 H (12.00-20.00) Ratio Glucose 142 H (70-110) mg/dL POC Glucose (mg/dL) 133 H (70-110) mg/dL Calcium 8.5 L (8.7-10.3) mg/dL Troponin I 0.051 H* (0.000-0.034) ng/mL Assessment and Plan Assessment: Septic shock, likely secondary to soft tissue infection/cellulitis in addition to a wound in the left foot at the site of a transmetatarsal amputation. The patient has a chronic stage IV ulcer that has no active drainage at this point in time. Cultures were noted and it is positive for Staph aureus and Prevotella. Currently on IV cefazolin and Flagyl oral and hemodynamically stable Acute lactic acidosis, improved and the lactic acid level is normalizing Severe anion gap metabolic acidosis, improved Acute hyperkalemia, improved , Acute hypoglycemia, likely secondary to above, improved Altered mentation secondary to above, improved Cellulitis of the lower extremities bilaterally, currently on a combination of I V cefazolin and Flagyl Acute on chronic kidney injury with secondary oliguria, consider underlying ATN, renal function improved Right lower extremity DVT, on Eliquis Severe cardiomyopathy with an ejection fraction of 10 to 15% Severe pulmonary hypertension, likely group 2/3 pulmonary hypertension with severe dilatation of the RV Severe peripheral vascular disease, prior right below the knee amputation, and left transmetatarsal amputation. Vascular surgery is on the case History of COPD/asthma Diabetes mellitus, with ongoing episodes of hypoglycemia History of CVA. Coronary artery disease with prior history of myocardial infarction History of hypertension History of DVT Obesity Multiple drug-resistant infections History of pacemaker implantation/defibrillator Plan: The patient was seen and evaluated Chest x-ray, labs and medications reviewed Improved and on 2 L nasal cannula Continue bronchodilators, diuretics Anticoagulated with Eliquis Antibiotics per ID service Titrate down/off the FiO2 as tolerated This patient was seen independently by the pulmonary nurse practitioner addressing pulmonary issues I have personally seen and examined the patient, performed the documentation and the assessment and plan as written. Number of minutes spent on the visit: 25.
[2024-08-27 11:55] LABS: Glucose,Whole Blood 144 mg/dL (70-110)
--- NOTE | 2024-08-27 12:21 | P.PN ---
Subjective Progress Note Date: 08/27/24 Principal diagnosis: Reason for follow-up is left diabetic foot ulcer and cellulitis Patient is a 48-year female with multiple comorbidities including diabetes mellitus the patient did have a right diabetic foot infection requiring right below the amputation and a chronic nonhealing wound to the left foot to be getting to the hospital with cellulitis to the left lower extremity and wound infection. On today's evaluation that is 08/27/2024,the patient continues to be afebrile patient is currently on 2 L current oxygen and breathing comfortably patient remains to be pleasantly confused elevated good historian no vomiting diarrhea or any change reported by nursing staff denies any worsening pain to the lower extremity. Patient did have a creatinine 1.0 troponins are mildly elevated Objective - Vital Signs Vital signs: Vital Signs Temp 98 F 08/27/24 07:31 Pulse 104 H 08/27/24 11:49 Resp 17 08/27/24 07:31 BP 141/73 08/27/24 07:31 Pulse Ox 98 08/27/24 07:57 FiO2 100 08/20/24 18:00 Intake & Output 08/26/24 08/27/24 08/27/24 18:59 06:59 18:59 Intake Total 1902 240 Output Total 501 600 Balance 1401 -600 240 Weight 138.5 kg Intake: Oral 1902 240 Output: Urine 500 600 Stool 1 Other: Voiding Method External Catheter External Catheter # Voids 2 # Bowel Movements 1 ABP, PAP, CO, CI - Last Documented Arterial Blood Pressure 111/62 - Exam GENERAL DESCRIPTION: Middle-age female lying in bed in no distress RESPIRATORY SYSTEM: Unlabored breathing , decreased breath sounds at bases HEART: S1 S2 regular rate and rhythm , ABDOMEN: Soft , no tenderness EXTREMITIES: Left leg not is cool to touch swelling persist - Labs CBC & Chem 7: 08/26/24 07:16 08/27/24 05:56 Labs: Abnormal Lab Results - Last 24 Hours (Table) 08/26/24 08/26/24 08/27/24 Range/Units 17:02 20:22 05:56 Sodium 134 L (135-145) mmol/L Anion Gap 15.00 H (4.00-12.00) mmol/L BUN/Creatinine Ratio 27.00 H (12.00-20.00) Ratio Glucose 142 H (70-110) mg/dL POC Glucose (mg/dL) 132 H 141 H (70-110) mg/dL Calcium 8.5 L (8.7-10.3) mg/dL Troponin I (0.000-0.034) ng/mL 08/27/24 08/27/24 08/27/24 Range/Units 07:02 08:08 10:45 Sodium (135-145) mmol/L Anion Gap (4.00-12.00) mmol/L BUN/Creatinine Ratio (12.00-20.00) Ratio Glucose (70-110) mg/dL POC Glucose (mg/dL) 133 H (70-110) mg/dL Calcium (8.7-10.3) mg/dL Troponin I 0.051 H* 0.044 H* (0.000-0.034) ng/mL 08/27/24 08/27/24 Range/Units 10:58 11:53 Sodium (135-145) mmol/L Anion Gap (4.00-12.00) mmol/L BUN/Creatinine Ratio (12.00-20.00) Ratio Glucose (70-110) mg/dL POC Glucose (mg/dL) 164 H 144 H (70-110) mg/dL Calcium (8.7-10.3) mg/dL Troponin I (0.000-0.034) ng/mL Assessment and Plan (1) Cellulitis of left foot Current Visit: Yes Status: Acute Code(s): L03.116 - CELLULITIS OF LEFT LOWER LIMB SNOMED Code(s): 73563854432295444 (2) Allergy to multiple antibiotics Current Visit: No Status: Acute Code(s): Z88.1 - ALLERGY STATUS TO OTHER ANTIBIOTIC AGENTS SNOMED Code(s): 697405462 (3) Diabetic ulcer of left foot Current Visit: No Status: Acute Code(s): E11.621 - TYPE 2 DIABETES MELLITUS WITH FOOT ULCER; L97.529 - NON-PRESSURE CHRONIC ULCER OTH PRT LEFT FOOT W UNSP SEVERITY SNOMED Code(s): 655072049 Plan: 1patient with a chronic nonhealing wound to the left foot plantar aspect now with evidence of left lower extremity cellulitis likely being treated for this episode of cellulitis and will need to cover for the gram-positive as well as gram-negative pathogen. 2patient with multiple antibiotic ALLERGIES that would limit the number of antibiotic safe to use 3local wound culture currently growing MSSA and Prevotella 4-patient did have cold left lower extremity vascular surgery has been consulted mentioning possible related to pressors and did have improvement no surgical intervention 5patient remains to be afebrile with a normal white count 6-patient is currently being treated with cefazolin Flagyl however patient will be able to finish therapy with oral antibiotics Dictation was produced using [employer] dictation software. please excuse any grammatical, word or spelling errors. Time with Patient: Less than 30
[2024-08-27 12:26] LABS: Appearance,Urine Clear (Clear); Bacteria,Urine Occasional /hpf; Bilirubin,Urine Negative (Negative); Blood,Urine Small (Negative); Color,Urine Yellow; Glucose,Urine (UA) Negative (Negative); Hyaline Casts,Urine 1 /lpf (0-2); Ketones,Urine Negative (Negative); Leukocyte Esterase,Urine Large (Negative); Mucus,Urine Rare /hpf; Nitrite,Urine Negative (Negative); PH, Urine 5.5 (5.0-8.0); Protein,Urine Trace (Negative); RBC,Urine 5 /hpf (0-5); Specific Gravity,Urine 1.014 (1.001-1.035); Squamous Epithelial Cell,Urine 3 /hpf (0-4); Urobilinogen,Urine <2.0 mg/dL (<2.0); WBC,Urine 23 /hpf (0-5)
--- NOTE | 2024-08-27 13:05 | P.PN ---
Subjective Progress Note Date: 08/27/24 Patient is a 48-year-old female with a past medical history of right lower extremity DVT maintained on Eliquis, right BKA, and left TMA who presented to the emergency department with severe right lower extremity pain and recent falls from her wheelchair during transfers. She is a poor historian at the time of the interview. She is very lethargic and falls asleep while answering questionsAO x 2. She rarely opens her eyes without stimulus. During the interview she is noted to have increased respiratory effort, respiratory rate of 10-12, and small sluggish pupils. Narcan was administered and patient became more alert and respiratory rate improved to 16, AOx3, now able to complete full sentences but remains with eyes closed unless prompted to open. Now she states that she has been having bilateral lower extremity pain worse on the right with erythema and swelling of the right lower extremity. She reports compliance with her medications. She also reports some abdominal pain with a few episodes of vomitingappears nonbloody. She endorses pain in the right lower extremity. She denies chest pain, shortness of breath, current abdominal pain, nausea, vomiting. Femur x-ray unremarkable. Bilateral lower extremity venous Doppler showed positive right lower extremity DVT femoral vein to popliteal vein. EKG shows pacing by AICD. WBC 6.1, hemoglobin 10.1, platelets 179, PT 13.3, INR 1.3, sodium 136, potassium 4.6, CO2 20, creatinine 1.73, GFR 34, lactic acid 2.2, phosphorus 4.6, CRP 2.9, TSH 27.6. Afebrile, normotensive, tachycardic in the low 100s saturating well on room air. 08/18. Patient seen sleeping in bed. Still with eyes closed while conversing but will open them when prompted. States she's had no energy for days. Chest x-ray 08/17: Cardiomegaly and mild pulmonary vascular congestion. Brain CT 08/17: No acute intracranial process, old lacunar infarct left thalamus. Pulmonary perfusion scan 08/18: No mismatch defect is evident, intermediate probability for acute pulmonary embolism. WBCs 10.8, hemoglobin 10.4, sodium 134, potassium 5.5, creatinine 2.78, hemoglobin A1c 6.5, N-terminal proBNP 21.9, procalcitonin 1.22. 08/19. Patient seen and examined. Ultrasound abdomen done showed no evidence for acute abdominal process, hepatic steatosis. Ultrasound of kidneys done showed nonobstructing right renal calculus. Patient stated she feels better, still has pain in the right BKA stump. 08/20. Patient seen laying in bed. Preliminary wound culture shows presumptive Staph aureus. Patient appears to be struggling to find her words/Labs: WBCs 16.3, hemoglobin 11.8, potassium 5.6, creatinine 1.99, total bilirubin 2.4. ABG: pH 7.26, pCO2 31, pO2 84, HCO3 14. Patient with worsening prognosis, transfer to ICU. 08/21. Patient seen and examined. Blood work done this morning showed WBC 11.7, hemoglobin 10.5, platelet count 252, sodium 126, potassium 4.7, BUN 53, creatinine 2.29 bilirubin 2.8, AST 2378, ALT 1144. Patient is lethargic, openin g eyes, answers question appropriately. 08/22. Patient seen and examined. Labs: WBCs 9.0, hemoglobin 10.2, sodium 132, potassium 4.1, CO2 25, BUN 60, creatinine 2.00. She remains lethargic. 08/23. Patient seen and examined. Labs: WBCs 10.4, hemoglobin 10.7, sodium 131, potassium 3.7, BUN 54, creatinine 1.58, AST 978, ALT 490. 08/24. Patient seen at bedside. Lethargy improved. Patient states that she is doing well but endorses continued pain in her legs. Labs: sodium 128, potassium 5.3, BUN 50, creatinine 1.24, AST 703, ALT 350. 08/25. Patient examined at bedside. She was transferred to [facility] from the ICU yesterday. She states she is feeling much better. Labs pending. 08/26. Patient is evaluated today on the medical floor. Patient with altered mentation today currently alert x 1. Negative brain CT. Ammonia level less than 9. She is having some shortness of breath. Renal function and LFTs are improving. 08/27. Patient seen at bedside. She continues to have altered mentation and endorses chest pain when asked. Chest x-ray yesterday negative. Review of systems: ROS reviewed. Pertinent positives and negatives discussed above, a complete review of systems was performed and all the other systems were negative. Physical examination: Vital signs are reviewed. General: No acute distress. Alert. Oriented x 0. Morbidly obese. HEENT: Head exam is unremarkable. Lateral third of eyebrows thinning. EOMI bilaterally. ACs patent. Nares patent. Lungs: Bilateral breath sounds present; no rhonchi, wheezes, or rales. Heart: Rate and rhythm are regular. S1-S2 present. No murmur/rub/gallops. Abdomen: Soft, nontender, nondistended. Bowel sounds present. Extremities: Right BKA with erythema. Left TMA with ulcer on bottom now covered with gauze and LLE cellulitis and warmth. Psych: Normal affect and mood. Cooperative. Assessment/Plan: Sepsis, resolved Septic shock, resolved Left lower extremity cellulitis Continue IV cefazolin and Flagyl Continue IV fluids Monitor CBC Monitor CMP Monitor vitals Infectious disease following Chest pain Trend troponin. Troponin times two 0.051, 0.044, respectively Chest x-ray yesterday negative Encephalopathy of unknown origin Urinalysis negative Acute toxic metabolic encephalopathy secondary to medications Judicious use of pain medication Acute transaminitis, improved Hepatic encephalopathy Avoid hepatotoxic agents Monitor LFTs Acute kidney injury, improved Metabolic acidosis, improved Hyperkalemia due to YOLA and acidosis, improved Hyponatremia secondary to YOLA, improved Monitor CPK while on antibiotics Strict I's and O's Daily weights Monitor renal function Continue IV fluids Avoid nephrotoxic agents Nephrology following Right lower extremity deep vein thrombosis Continue Eliquis Surgery consultedno surgical intervention at this time Heme/onc consulted-restarted Eliquis Acute hypoxemic respiratory failure Continue oxygen supplementation Aggressive bronchopulmonary hygiene Continue breathing treatments Critical care following Left foot ulcer Absorptive silver, saline moist gauze, dry gauze, rolled gauze and secured with paper tape change Tuesday, Tuesday, Tuesday per wound care Hypothyroidism Continue levothyroxine 50 mcg daily Diabetes mellitus type 2 Monitor glucose Insulin sliding scale DVT prophylaxis: Eliquis Chronic conditions: Recurrent DVTs, systolic CHF, chronic kidney disease stage IIIb, diabetes mellitus type 2, seizures, history of AICD placement, history of cardiac catheterizations Dr. Lei MD I have performed a history and physical examination and medical decision making of this patient, discussed the same with the the resident, and agree with the assessment and plan as written. I performed brief physical exam. Objective - Vital Signs Vital signs: Vital Signs Temp 97.9 F 08/27/24 01:02 Pulse 102 H 08/27/24 06:32 Resp 15 08/27/24 06:32 BP 107/70 08/27/24 06:32 Pulse Ox 97 08/27/24 06:32 FiO2 100 08/20/24 18:00 Intake & Output 08/26/24 08/27/24 08/27/24 18:59 06:59 18:59 Intake Total 1902 Output Total 501 600 Balance 1401 -600 Weight 138.5 kg Intake: Oral 1902 Output: Urine 500 600 Stool 1 Other: Voiding Method External Catheter External Catheter # Voids 2 # Bowel Movements 1 ABP, PAP, CO, CI - Last Documented Arterial Blood Pressure 111/62 - Labs CBC & Chem 7: 08/26/24 07:16 08/27/24 05:56 Labs: Abnormal Lab Results - Last 24 Hours (Table) 08/26/24 08/26/24 08/26/24 Range/Units 07:16 07:16 07:49 Hgb 11.3 L (11.4-16.0) gm/dL MCH 24.9 L (25.0-35.0) pg RDW 19.8 H (11.5-15.5) % Lymphocytes # (Manual) 0.98 L (1.0-4.8) k/uL Myelocytes # (Manual) 0.07 H (0) k/uL Nucleated RBCs 1 H (0-0) /100 WBC Sodium 133 L (137-145) mmol/L BUN 34 H (7-17) mg/dL POC Glucose (mg/dL) 116 H (70-110) mg/dL Calcium 8.2 L (8.4-10.2) mg/dL Total Bilirubin 2.2 H (0.2-1.3) mg/dL AST 248 H (14-36) U/L ALT 122 H (4-34) U/L Albumin 3.0 L (3.5-5.0) g/dL 08/26/24 08/26/24 08/26/24 Range/Units 12:17 17:02 20:22 Hgb (11.4-16.0) gm/dL MCH (25.0-35.0) pg RDW (11.5-15.5) % Lymphocytes # (Manual) (1.0-4.8) k/uL Myelocytes # (Manual) (0) k/uL Nucleated RBCs (0-0) /100 WBC Sodium (137-145) mmol/L BUN (7-17) mg/dL POC Glucose (mg/dL) 141 H 132 H 141 H (70-110) mg/dL Calcium (8.4-10.2) mg/dL Total Bilirubin (0.2-1.3) mg/dL AST (14-36) U/L ALT (4-34) U/L Albumin (3.5-5.0) g/dL 08/27/24 Range/Units 07:02 Hgb (11.4-16.0) gm/dL MCH (25.0-35.0) pg RDW (11.5-15.5) % Lymphocytes # (Manual) (1.0-4.8) k/uL Myelocytes # (Manual) (0) k/uL Nucleated RBCs (0-0) /100 WBC Sodium (137-145) mmol/L BUN (7-17) mg/dL POC Glucose (mg/dL) 133 H (70-110) mg/dL Calcium (8.4-10.2) mg/dL Total Bilirubin (0.2-1.3) mg/dL AST (14-36) U/L ALT (4-34) U/L Albumin (3.5-5.0) g/dL
--- NOTE | 2024-08-27 13:15 | P.PN ---
Subjective patient is seen for follow-up for acute kidney injury. She remains confused. Maintained on IV Bumex for volume overload. No complaints of shortness of breath. Objective - Vital Signs Vital signs: Vital Signs Temp 97.7 F 08/27/24 12:59 Pulse 102 H 08/27/24 12:59 Resp 18 08/27/24 12:59 BP 115/69 08/27/24 12:59 Pulse Ox 93 L 08/27/24 12:59 FiO2 100 08/20/24 18:00 Intake & Output 08/26/24 08/27/24 08/27/24 18:59 06:59 18:59 Intake Total 1902 240 Output Total 501 600 Balance 1401 -600 240 Weight 138.5 kg Intake: Oral 1902 240 Output: Urine 500 600 Stool 1 Other: Voiding Method External Catheter External Catheter # Voids 2 # Bowel Movements 1 ABP, PAP, CO, CI - Last Documented Arterial Blood Pressure 111/62 - Exam patient is awake, confused, no acute distress Examination of the heart S1 and S2 Examination the lungs decreased breath sounds at the bases Abdomen is soft morbidly obese Examination of lower extremities shows right BKA with redness noted. Redness n oted in the left lower leg as well. - Labs CBC & Chem 7: 08/26/24 07:16 08/27/24 05:56 Labs: Abnormal Lab Results - Last 24 Hours (Table) 08/26/24 08/26/24 08/27/24 Range/Units 17:02 20:22 05:56 Sodium 134 L (135-145) mmol/L Anion Gap 15.00 H (4.00-12.00) mmol/L BUN/Creatinine Ratio 27.00 H (12.00-20.00) Ratio Glucose 142 H (70-110) mg/dL POC Glucose (mg/dL) 132 H 141 H (70-110) mg/dL Calcium 8.5 L (8.7-10.3) mg/dL Troponin I (0.000-0.034) ng/mL Urine Protein (Negative) Urine Blood (Negative) Ur Leukocyte Esterase (Negative) Urine WBC (0-5) /hpf Urine Bacteria (None) /hpf Urine Mucus (None) /hpf 08/27/24 08/27/24 08/27/24 Range/Units 07:02 08:08 10:35 Sodium (135-145) mmol/L Anion Gap (4.00-12.00) mmol/L BUN/Creatinine Ratio (12.00-20.00) Ratio Glucose (70-110) mg/dL POC Glucose (mg/dL) 133 H (70-110) mg/dL Calcium (8.7-10.3) mg/dL Troponin I 0.051 H* (0.000-0.034) ng/mL Urine Protein Trace H (Negative) Urine Blood Small H (Negative) Ur Leukocyte Esterase Large H (Negative) Urine WBC 23 H (0-5) /hpf Urine Bacteria Occasional H (None) /hpf Urine Mucus Rare H (None) /hpf 08/27/24 08/27/24 08/27/24 Range/Units 10:45 10:58 11:53 Sodium (135-145) mmol/L Anion Gap (4.00-12.00) mmol/L BUN/Creatinine Ratio (12.00-20.00) Ratio Glucose (70-110) mg/dL POC Glucose (mg/dL) 164 H 144 H (70-110) mg/dL Calcium (8.7-10.3) mg/dL Troponin I 0.044 H* (0.000-0.034) ng/mL Urine Protein (Negative) Urine Blood (Negative) Ur Leukocyte Esterase (Negative) Urine WBC (0-5) /hpf Urine Bacteria (None) /hpf Urine Mucus (None) /hpf Assessment and Plan Assessment: 1. Acute kidney injury secondary to ATN secondary to septic shock. Baseline creatinine near 1. Renal function improving. Creatinine 1.0 today. Nonoliguric. No hydronephrosis noted on kidney ultrasound. Left kidney not visualized due to patient body habitus. 2. Hyperkalemia due to YOLA and acidosis. Improved. 3. AGMA from lactic acidosis with non-anion gap metabolic acidosis from IVF with respiratory acidosis. Status post bicarb drip. Improved. 4. CKD stage IIIa 2/2 cardiorenal syndrome. Cr baseline 1-1.1 5. CHFrEF (15-20%). 6. Hypervolemic hyponatremia. Stable. 7. LLE cellulitis with DVT on antibiotics. Also on anticoagulation. 8. Type 2 Diabetes Plan: continue with IV Bumex Monitor electrolytes Repeat labs in a.m.
[2024-08-27 17:06] LABS: Glucose,Whole Blood 137 mg/dL (70-110)
[2024-08-27 20:25] LABS: Glucose,Whole Blood 180 mg/dL (70-110)
[2024-08-28 07:03] LABS: Glucose,Whole Blood 121 mg/dL (70-110)
[2024-08-28 11:53] LABS: Glucose,Whole Blood 141 mg/dL (70-110)
--- NOTE | 2024-08-28 12:06 | P.PN ---
Subjective Progress Note Date: 08/28/24 Patient is a 48-year-old female with a past medical history of right lower extremity DVT maintained on Eliquis, right BKA, and left TMA who presented to the emergency department with severe right lower extremity pain and recent falls from her wheelchair during transfers. She is a poor historian at the time of the interview. She is very lethargic and falls asleep while answering questionsAO x 2. She rarely opens her eyes without stimulus. During the interview she is noted to have increased respiratory effort, respiratory rate of 10-12, and small sluggish pupils. Narcan was administered and patient became more alert and respiratory rate improved to 16, AOx3, now able to complete full sentences but remains with eyes closed unless prompted to open. Now she states that she has been having bilateral lower extremity pain worse on the right with erythema and swelling of the right lower extremity. She reports compliance with her medications. She also reports some abdominal pain with a few episodes of vomitingappears nonbloody. She endorses pain in the right lower extremity. She denies chest pain, shortness of breath, current abdominal pain, nausea, vomiting. Femur x-ray unremarkable. Bilateral lower extremity venous Doppler showed positive right lower extremity DVT femoral vein to popliteal vein. EKG shows pacing by AICD. WBC 6.1, hemoglobin 10.1, platelets 179, PT 13.3, INR 1.3, sodium 136, potassium 4.6, CO2 20, creatinine 1.73, GFR 34, lactic acid 2.2, phosphorus 4.6, CRP 2.9, TSH 27.6. Afebrile, normotensive, tachycardic in the low 100s saturating well on room air. 08/18. Patient seen sleeping in bed. Still with eyes closed while conversing but will open them when prompted. States she's had no energy for days. Chest x-ray 08/17: Cardiomegaly and mild pulmonary vascular congestion. Brain CT 08/17: No acute intracranial process, old lacunar infarct left thalamus. Pulmonary perfusion scan 08/18: No mismatch defect is evident, intermediate probability for acute pulmonary embolism. WBCs 10.8, hemoglobin 10.4, sodium 134, potassium 5.5, creatinine 2.78, hemoglobin A1c 6.5, N-terminal proBNP 21.9, procalcitonin 1.22. 08/19. Patient seen and examined. Ultrasound abdomen done showed no evidence for acute abdominal process, hepatic steatosis. Ultrasound of kidneys done showed nonobstructing right renal calculus. Patient stated she feels better, still has pain in the right BKA stump. 08/20. Patient seen laying in bed. Preliminary wound culture shows presumptive Staph aureus. Patient appears to be struggling to find her words/Labs: WBCs 16.3, hemoglobin 11.8, potassium 5.6, creatinine 1.99, total bilirubin 2.4. ABG: pH 7.26, pCO2 31, pO2 84, HCO3 14. Patient with worsening prognosis, transfer to ICU. 08/21. Patient seen and examined. Blood work done this morning showed WBC 11.7, hemoglobin 10.5, platelet count 252, sodium 126, potassium 4.7, BUN 53, creatinine 2.29 bilirubin 2.8, AST 2378, ALT 1144. Patient is lethargic, opening eyes, answers question appropriately. 08/22. Patient seen and examined. Labs: WBCs 9.0, hemoglobin 10.2, sodium 132, potassium 4.1, CO2 25, BUN 60, creatinine 2.00. She remains lethargic. 08/23. Patient seen and examined. Labs: WBCs 10.4, hemoglobin 10.7, sodium 131, potassium 3.7, BUN 54, creatinine 1.58, AST 978, ALT 490. 08/24. Patient seen at bedside. Lethargy improved. Patient states that she is doing well but endorses continued pain in her legs. Labs: sodium 128, potassium 5.3, BUN 50, creatinine 1.24, AST 703, ALT 350. 08/25. Patient examined at bedside. She was transferred to [facility] from the ICU yesterday. She states she is feeling much better. Labs pending. 08/26. Patient is evaluated today on the medical floor. Patient with altered mentation today currently alert x 1. Negative brain CT. Ammonia level less than 9. She is having some shortness of breath. Renal function and LFTs are improving. 08/27. Patient seen at bedside. She continues to have altered mentation and endorses chest pain when asked. Chest x-ray yesterday negative. 08/28/24 - Patient seen at bedside today. At bedside today patient's mentation is improved, with resolution of her confusion. Patient is aware of who she is, her birthday, and where she is currently. And her pleasant demeanor has returned. Patient has no acute complaints, stating that her chest pain from yesterday has resolved and she no longer has any. Per infectious disease recommendation while the patient is currently being treated with cefazolin and Flagyl, the patient will be able to finish therapy with oral antibiotics. Review of systems: ROS reviewed. Pertinent positives and negatives discussed above, a complete review of systems was performed and all the other systems were negative. Physical examination: Vital signs are reviewed. General: No acute distress. Alert. Oriented x 3. Morbidly obese. HEENT: Head exam is unremarkable. Lateral third of eyebrows thinning. EOMI bilaterally. ACs patent. Nares patent. Lungs: Bilateral breath sounds present; no rhonchi, wheezes, or rales. Heart: Rate and rhythm are regular. S1-S2 present. No murmur/rub/gallops. Abdomen: Soft, nontender, nondistended. Bowel sounds present. Extremities: Right BKA with erythema. Left TMA with ulcer on bottom now covered with gauze and LLE cellulitis and warmth. Psych: Normal affect and mood. Cooperative. Assessment/Plan: Sepsis, resolved Septic shock, resolved Left lower extremity cellulitis Continue IV cefazolin and Flagyl Continue IV fluids Monitor CBC Monitor CMP Monitor vitals Infectious disease following Chest pain Trend troponin. Troponin times two 0.051, 0.044, respectively Chest x-ray yesterday negative Encephalopathy of unknown origin Urinalysis negative Acute toxic metabolic encephalopathy secondary to medications Judicious use of pain medication Acute transaminitis, improved Hepatic encephalopathy Avoid hepatotoxic agents Monitor LFTs Acute kidney injury, improved Metabolic acidosis, improved Hyperkalemia due to YOLA and acidosis, improved Hyponatremia secondary to YOLA, improved Monitor CPK while on antibiotics Strict I's and O's Daily weights Monitor renal function Continue IV fluids Avoid nephrotoxic agents Nephrology following Right lower extremity deep vein thrombosis Continue Eliquis Surgery consultedno surgical intervention at this time Heme/onc consulted-restarted Eliquis Acute hypoxemic respiratory failure Continue oxygen supplementation Aggressive bronchopulmonary hygiene Continue breathing treatments Critical care following Left foot ulcer Absorptive silver, saline moist gauze, dry gauze, rolled gauze and secured with paper tape change Tuesday, Tuesday, Tuesday per wound care Hypothyroidism Continue levothyroxine 50 mcg daily Diabetes mellitus type 2 Monitor glucose Insulin sliding scale DVT prophylaxis: Eliquis Chronic conditions: Recurrent DVTs, systolic CHF, chronic kidney disease stage IIIb, diabetes mellitus type 2, seizures, history of AICD placement, history of cardiac catheterizations Dr. Lei MD I have performed a history and physical examination and medical decision making of this patient, discussed the same with the the resident, and agree with the assessment and plan as written. I performed brief physical exam. Objective - Vital Signs Vital signs: Vital Signs Temp 98.5 F 08/28/24 07:01 Pulse 104 H 08/28/24 08:38 Resp 16 08/28/24 07:01 BP 120/72 08/28/24 07:01 Pulse Ox 94 L 08/28/24 08:28 FiO2 100 08/20/24 18:00 Intake & Output 08/27/24 08/28/24 08/28/24 18:59 06:59 18:59 Intake Total 1320 Output Total 900 200 Balance 420 -200 Weight 149 kg Intake: Oral 1320 Output: Urine 900 200 Other: Voiding Method External Catheter External Catheter # Bowel Movements 2 ABP, PAP, CO, CI - Last Documented Arterial Blood Pressure 111/62 - Labs CBC & Chem 7: 08/26/24 07:16 08/30/24 06:06 Labs: Abnormal Lab Results - Last 24 Hours (Table) 08/27/24 08/27/24 08/27/24 Range/Units 10:35 10:45 10:58 POC Glucose (mg/dL) 164 H (70-110) mg/dL Troponin I 0.044 H* (0.000-0.034) ng/mL Urine Protein Trace H (Negative) Urine Blood Small H (Negative) Ur Leukocyte Esterase Large H (Negative) Urine WBC 23 H (0-5) /hpf Urine Bacteria Occasional H (None) /hpf Urine Mucus Rare H (None) /hpf 08/27/24 08/27/24 08/27/24 Range/Units 11:53 14:12 17:05 POC Glucose (mg/dL) 144 H 137 H (70-110) mg/dL Troponin I 0.039 H* (0.000-0.034) ng/mL Urine Protein (Negative) Urine Blood (Negative) Ur Leukocyte Esterase (Negative) Urine WBC (0-5) /hpf Urine Bacteria (None) /hpf Urine Mucus (None) /hpf 08/27/24 08/28/24 Range/Units 20:23 07:02 POC Glucose (mg/dL) 180 H 121 H (70-110) mg/dL Troponin I (0.000-0.034) ng/mL Urine Protein (Negative) Urine Blood (Negative) Ur Leukocyte Esterase (Negative) Urine WBC (0-5) /hpf Urine Bacteria (None) /hpf Urine Mucus (None) /hpf
[2024-08-28 12:29] LABS: Allen Test Performed? Yes
[2024-08-28 12:30] LABS: ABG PCO2 43 mmHg (35-45); ABG PH 7.45 (7.35-7.45)
[2024-08-28 12:33] LABS: ABG HCO3 30 mmol/L (21-25); ABG PO2 44 mmHg (83-108)
--- NOTE | 2024-08-28 13:10 | P.PN ---
Subjective Progress Note Date: 08/28/24 Principal diagnosis: Reason for follow-up is left diabetic foot ulcer and cellulitis Patient is a 48-year female with multiple comorbidities including diabetes mellitus the patient did have a right diabetic foot infection requiring right below the amputation and a chronic nonhealing wound to the left foot to be getting to the hospital with cellulitis to the left lower extremity and wound infection. On today's evaluation that is 08/28/2024,the patient remains to be afebrile, patient is on 2 L nasal cannula supplemental oxygen and denies any shortness of breath no chest pain or cough.Patient denies having any nausea or vomiting, no abdominal pain and no diarrhea, pain to lower extremities currently controlled. No CBC was done today Objective - Vital Signs Vital signs: Vital Signs Temp 97.9 F 08/28/24 11:54 Pulse 100 08/28/24 12:50 Resp 20 08/28/24 11:54 BP 114/75 08/28/24 11:54 Pulse Ox 95 08/28/24 11:54 FiO2 100 08/20/24 18:00 Intake & Output 08/27/24 08/28/24 08/28/24 18:59 06:59 18:59 Intake Total 1320 356 Output Total 900 200 1 Balance 420 -200 355 Weight 149 kg Intake: Oral 1320 356 Output: Urine 900 200 Stool 1 Other: Voiding Method External Catheter External Catheter External Catheter # Bowel Movements 2 ABP, PAP, CO, CI - Last Documented Arterial Blood Pressure 111/62 - Exam GENERAL DESCRIPTION: Middle-age female lying in bed in no distress RESPIRATORY SYSTEM: Unlabored breathing , decreased breath sounds at bases HEART: S1 S2 regular rate and rhythm , ABDOMEN: Soft , no tenderness EXTREMITIES: Left leg not is cool to touch swelling persist - Labs CBC & Chem 7: 08/26/24 07:16 08/27/24 05:56 Labs: Abnormal Lab Results - Last 24 Hours (Table) 08/27/24 08/27/24 08/27/24 Range/Units 14:12 17:05 20:23 ABG pO2 (83-108) mmHg ABG HCO3 (21-25) mmol/L ABG O2 Saturation (94-97) % POC Glucose (mg/dL) 137 H 180 H (70-110) mg/dL Troponin I 0.039 H* (0.000-0.034) ng/mL 08/28/24 08/28/24 08/28/24 Range/Units 07:02 11:52 11:58 ABG pO2 44 L* (83-108) mmHg ABG HCO3 30 H (21-25) mmol/L ABG O2 Saturation 76.0 L (94-97) % POC Glucose (mg/dL) 121 H 141 H (70-110) mg/dL Troponin I (0.000-0.034) ng/mL Assessment and Plan (1) Cellulitis of left foot Current Visit: Yes Status: Acute Code(s): L03.116 - CELLULITIS OF LEFT LOWER LIMB SNOMED Code(s): 31864719060401753 (2) Allergy to multiple antibiotics Current Visit: No Status: Acute Code(s): Z88.1 - ALLERGY STATUS TO OTHER ANTIBIOTIC AGENTS SNOMED Code(s): 372131498 (3) Diabetic ulcer of left foot Current Visit: No Status: Acute Code(s): E11.621 - TYPE 2 DIABETES MELLITUS WITH FOOT ULCER; L97.529 - NON-PRESSURE CHRONIC ULCER OTH PRT LEFT FOOT W UNSP SEVERITY SNOMED Code(s): 378762615 Plan: 1patient with a chronic nonhealing wound to the left foot plantar aspect now with evidence of left lower extremity cellulitis likely being treated for this episode of cellulitis and will need to cover for the gram-positive as well as gram-negative pathogen. 2patient with multiple antibiotic ALLERGIES that would limit the number of antibiotic safe to use 3local wound culture currently growing MSSA and Prevotella 4-patient did have cold left lower extremity vascular surgery has been consulted mentioning possible related to pressors and did have improvement no surgical intervention 5patient remains to be afebrile with a normal white count 6-patient to continue cefazolin Flagyl while inpatient transition to oral Keflex and Flagyl on discharge Dictation was produced using [employer] dictation software. please excuse any grammatical, word or spelling errors. Time with Patient: Less than 30
--- NOTE | 2024-08-28 13:22 | P.PN ---
Subjective Progress Note Date: 08/28/24 The patient is seen today August 27, 2024 in follow-up on the regular medical floor. She is currently awake and alert in no acute distress. She does remain confused at times. She is currently maintaining good O2 saturations in the 90s on 2 L/min per nasal cannula. She remains on antibiotics in the form of cefazolin and Flagyl. She was positive for MSSA in the wound of her left foot. Chest x-ray reveals no evidence of pneumothorax. There is cardiomegaly. There is improved aeration of left perihilar infiltrate or atelectasis. Sodium 134. Potassium 4.2. Bicarb 23. BUN 27. Creatinine 1.0. Glucose 142. Continued on DuoNeb inhalations. Anticoagulated with Eliquis. Protonix for GI prophylaxis. The patient is seen today August 28, 2024 in follow-up on the regular medical floor. She is currently sitting up in bed having breakfast. Awake and alert in no acute distress. Denies any worsening shortness of breath, cough or congestion. Maintaining O2 saturations in the mid 90s on 2 L/min per nasal cannula. She has been afebrile. Hemodynamically stable. Denies any worsening lower extremity pain. Left foot cultures were positive for MSSA and Prevotella species. She remains on cefazolin and Flagyl. She remains on bronchodilators. Continued on IV diuretics. Anticoagulated with Eliquis. Objective - Vital Signs Vital signs: Vital Signs Temp 97.9 F 08/28/24 11:54 Pulse 100 08/28/24 12:50 Resp 20 08/28/24 11:54 BP 114/75 08/28/24 11:54 Pulse Ox 95 08/28/24 11:54 FiO2 100 08/20/24 18:00 Intake & Output 08/27/24 08/28/24 08/28/24 18:59 06:59 18:59 Intake Total 1320 356 Output Total 900 200 1 Balance 420 -200 355 Weight 149 kg Intake: Oral 1320 356 Output: Urine 900 200 Stool 1 Other: Voiding Method External Catheter External Catheter External Catheter # Bowel Movements 2 ABP, PAP, CO, CI - Last Documented Arterial Blood Pressure 111/62 - Exam A pleasant 48-year-old female in no acute distress, currently on 2 L of O2 nasal cannula HEENT examination is grossly unremarkable. Mucous membranes are moist. No oral lesions. Neck supple. Full range of motion. No adenopathy thyromegaly or neck vein distention. Cardiovascular examination reveals regular rhythm rate. S1-S2 normal. No S3 or S4. No discernible murmur noted. Sounds are distant. Lungs reveal mostly clear breath sounds. Minimal rhonchi. No wheezes or crackles. Abdomen soft, and obese. Bowel sounds are noted. No mass. Extremities revealed a right below the knee amputation, and transmetatarsal amputation on the left. The patient has a deep wound along the plantar aspect of the transmetatarsal amputation left lower extremity. Dressing in place. Right lower extremity has a below-knee amputation the extremity is quite swollen. There is evidence of cellulitis in both lower extremities. Pulses are present although diminished in the left lower extremity. Cellulitis is improving. Skin is without rash or lesion. Wound in the left foot at the site of a previous transmetatarsal amputation was noted. No active drainage. Bone is exposed. Neurologic examination difficult to assess. No focal neurological deficit. - Labs CBC & Chem 7: 08/26/24 07:16 08/27/24 05:56 Labs: Abnormal Lab Results - Last 24 Hours (Table) 08/27/24 08/27/24 08/27/24 Range/Units 14:12 17:05 20:23 ABG pO2 (83-108) mmHg ABG HCO3 (21-25) mmol/L ABG O2 Saturation (94-97) % POC Glucose (mg/dL) 137 H 180 H (70-110) mg/dL Troponin I 0.039 H* (0.000-0.034) ng/mL 08/28/24 08/28/24 08/28/24 Range/Units 07:02 11:52 11:58 ABG pO2 44 L* (83-108) mmHg ABG HCO3 30 H (21-25) mmol/L ABG O2 Saturation 76.0 L (94-97) % POC Glucose (mg/dL) 121 H 141 H (70-110) mg/dL Troponin I (0.000-0.034) ng/mL Assessment and Plan Assessment: Septic shock, likely secondary to soft tissue infection/cellulitis in addition to a wound in the left foot at the site of a transmetatarsal amputation. The patient has a chronic stage IV ulcer that has no active drainage at this point in time. Cultures were noted and it is positive for Staph aureus and Pre votella. Currently on IV cefazolin and Flagyl. Acute lactic acidosis, improved and the lactic acid level is normalizing Severe anion gap metabolic acidosis, improved Acute hyperkalemia, improved , Acute hypoglycemia, likely secondary to above, improved Altered mentation secondary to above, improved Cellulitis of the lower extremities bilaterally, currently on a combination of IV cefazolin and Flagyl Acute on chronic kidney injury with secondary oliguria, consider underlying ATN, renal function improved Right lower extremity DVT, on Eliquis Severe cardiomyopathy with an ejection fraction of 10 to 15% Severe pulmonary hypertension, likely group 2/3 pulmonary hypertension with severe dilatation of the RV Severe peripheral vascular disease, prior right below the knee amputation, and left transmetatarsal amputation. Vascular surgery is on the case History of COPD/asthma Diabetes mellitus, with ongoing episodes of hypoglycemia History of CVA. Coronary artery disease with prior history of myocardial infarction History of hypertension History of DVT Obesity Multiple drug-resistant infections History of pacemaker implantation/defibrillator Plan: The patient was seen and evaluated Labs and medications reviewed Improved and on 2 L nasal cannula Continue the current treatment plan Antibiotics per ID service This patient was seen independently by the pulmonary nurse practitioner addressing pulmonary issues I have personally seen and examined the patient, performed the documentation and the assessment and plan as written. Number of minutes spent on the visit: 24.
--- NOTE | 2024-08-28 13:39 | P.PN ---
Subjective patient is seen for follow-up for acute kidney injury. She remains confused. Maintained on IV Bumex for volume overload. No complaints of shortness of breath. Objective - Vital Signs Vital signs: Vital Signs Temp 97.9 F 08/28/24 11:54 Pulse 100 08/28/24 12:50 Resp 20 08/28/24 11:54 BP 114/75 08/28/24 11:54 Pulse Ox 95 08/28/24 11:54 FiO2 100 08/20/24 18:00 Intake & Output 08/27/24 08/28/24 08/28/24 18:59 06:59 18:59 Intake Total 1320 356 Output Total 900 200 1 Balance 420 -200 355 Weight 149 kg Intake: Oral 1320 356 Output: Urine 900 200 Stool 1 Other: Voiding Method External Catheter External Catheter External Catheter # Bowel Movements 2 ABP, PAP, CO, CI - Last Documented Arterial Blood Pressure 111/62 - Exam patient is awake, confused, no acute distress Examination of the heart S1 and S2 Examination the lungs decreased breath sounds at the bases Abdomen is soft morbidly obese Examination of lower extremities shows right BKA with redness noted. Redness noted in the left lower leg as well. - Labs CBC & Chem 7: 08/26/24 07:16 08/27/24 05:56 Labs: Abnormal Lab Results - Last 24 Hours (Table) 08/27/24 08/27/24 08/27/24 Range/Units 14:12 17:05 20:23 ABG pO2 (83-108) mmHg ABG HCO3 (21-25) mmol/L ABG O2 Saturation (94-97) % POC Glucose (mg/dL) 137 H 180 H (70-110) mg/dL Troponin I 0.039 H* (0.000-0.034) ng/mL 08/28/24 08/28/24 08/28/24 Range/Units 07:02 11:52 11:58 ABG pO2 44 L* (83-108) mmHg ABG HCO3 30 H (21-25) mmol/L ABG O2 Saturation 76.0 L (94-97) % POC Glucose (mg/dL) 121 H 141 H (70-110) mg/dL Troponin I (0.000-0.034) ng/mL Assessment and Plan Assessment: 1. Acute kidney injury secondary to ATN secondary to septic shock. Baseline creatinine near 1. Renal function improving. Creatinine 1.0 yesterday. Nonoliguric. No hydronephrosis noted on kidney ultrasound. Left kidney not visualized due to patient body habitus. 2. Hyperkalemia due to YOLA and acidosis. Improved. 3. AGMA from lactic acidosis with non-anion gap metabolic acidosis from IVF with respiratory acidosis. Status post bicarb drip. Improved. 4. CKD stage IIIa 2/2 cardiorenal syndrome. Cr baseline 1-1.1 5. CHFrEF (15-20%). 6. Hypervolemic hyponatremia. Stable. 7. LLE cellulitis with DVT on antibiotics. Also on anticoagulation. 8. Type 2 Diabetes Plan: continue with IV Bumex Monitor electrolytes Repeat labs in a.m.
[2024-08-28 16:47] LABS: Glucose,Whole Blood 138 mg/dL (70-110)
[2024-08-28 20:10] LABS: Glucose,Whole Blood 162 mg/dL (70-110)
[2024-08-29 06:01] LABS: African American GFR (CKD) >90 (>60 ml/min/1.73 sqM); Anion Gap 5 mmol/L; Blood Urea Nitrogen 27 mg/dL (7-17); Calcium 8.6 mg/dL (8.4-10.2); Carbon Dioxide 27 mmol/L (22-30); Chloride 99 mmol/L (98-107); Glucose 112 mg/dL (74-99); Non-African American GFR(CKD) 80 (>60 ml/min/1.73 sqM); Sodium 131 mmol/L (137-145)
[2024-08-29 07:23] LABS: Glucose,Whole Blood 107 mg/dL (70-110)
--- NOTE | 2024-08-29 11:54 | P.PN ---
Subjective Progress Note Date: 08/29/24 Principal diagnosis: Reason for follow-up is left diabetic foot ulcer and cellulitis Patient is a 48-year female with multiple comorbidities including diabetes mellitus the patient did have a right diabetic foot infection requiring right below the amputation and a chronic nonhealing wound to the left foot to be getting to the hospital with cellulitis to the left lower extremity and wound infection. On today's evaluation that is 08/29/2024, the patient continues to be afebrile, the patient is on 2 L nasal cannula oxygen and breathing comfortably, the Pt slightly lethargic not a very good historian when asked specifically chest pain or cough or ulcer was low no diarrhea has been reported. Patient did have a creatinine 0.85 sodium is 131 no CBC was done today Objective - Vital Signs Vital signs: Vital Signs Temp 97.7 F 08/29/24 08:00 Pulse 96 08/29/24 09:40 Resp 18 08/29/24 08:00 BP 111/67 08/29/24 08:00 Pulse Ox 94 L 08/29/24 09:28 FiO2 100 08/20/24 18:00 Intake & Output 08/28/24 08/29/24 08/29/24 18:59 06:59 18:59 Intake Total 714 390 Output Total 1 276 Balance 713 114 Weight 133 kg Intake: IV 100 0.9% NS KVO 100 Intake, IV Titration 50 Amount ceFAZolin 2 gm In Sodium 50 Chloride 0.9% 50 ml @ 100 mls/hr IVPB Q8H [facility] Rx#: [id number] Oral 714 240 Output: Urine 275 Stool 1 1 Other: Voiding Method External Catheter External Catheter External Catheter # Bowel Movements 1 ABP, PAP, CO, CI - Last Documented Arterial Blood Pressure 111/62 - Exam GENERAL DESCRIPTION: Middle-age female lying in bed in no distress RESPIRATORY SYSTEM: Unlabored breathing , decreased breath sounds at bases HEART: S1 S2 regular rate and rhythm , ABDOMEN: Soft , no tenderness EXTREMITIES: Left leg not is cool to touch swelling persist - Labs CBC & Chem 7: 08/26/24 07:16 08/29/24 05:09 Labs: Abnormal Lab Results - Last 24 Hours (Table) 08/28/24 08/28/24 08/28/24 Range/Units 11:52 11:58 16:45 ABG pO2 44 L* (83-108) mmHg ABG HCO3 30 H (21-25) mmol/L ABG O2 Saturation 76.0 L (94-97) % Sodium (137-145) mmol/L BUN (7-17) mg/dL Glucose (74-99) mg/dL POC Glucose (mg/dL) 141 H 138 H (70-110) mg/dL 08/28/24 08/29/24 Range/Units 20:08 05:09 ABG pO2 (83-108) mmHg ABG HCO3 (21-25) mmol/L ABG O2 Saturation (94-97) % Sodium 131 L (137-145) mmol/L BUN 27 H (7-17) mg/dL Glucose 112 H (74-99) mg/dL POC Glucose (mg/dL) 162 H (70-110) mg/dL Assessment and Plan (1) Cellulitis of left foot Current Visit: Yes Status: Acute Code(s): L03.116 - CELLULITIS OF LEFT LOWER LIMB SNOMED Code(s): 69382916916971321 (2) Allergy to multiple antibiotics Current Visit: No Status: Acute Code(s): Z88.1 - ALLERGY STATUS TO OTHER ANTIBIOTIC AGENTS SNOMED Code(s): 725111258 (3) Diabetic ulcer of left foot Current Visit: No Status: Acute Code(s): E11.621 - TYPE 2 DIABETES MELLITUS WITH FOOT ULCER; L97.529 - NON-PRESSURE CHRONIC ULCER OTH PRT LEFT FOOT W UNSP SEVERITY SNOMED Code(s): 985586279 Plan: 1patient with a chronic nonhealing wound to the left foot plantar aspect now with evidence of left lower extremity cellulitis likely being treated for this episode of cellulitis and will need to cover for the gram-positive as well as gram-negative pathogen. 2patient with multiple antibiotic ALLERGIES that would limit the number of antibiotic safe to use 3local wound culture currently growing MSSA and Prevotella 4-patient did have cold left lower extremity vascular surgery has been consulted mentioning possible related to pressors and did have improvement no surgical intervention 5patient continues to be afebrile, currently being treated with cefazolin Flagyl which will be continued while inpatient transition to oral Keflex and Flagyl on discharge Dictation was produced using [employer] dictation software. please excuse any grammatical, word or spelling errors. Time with Patient: Less than 30
[2024-08-29 12:30] LABS: Glucose,Whole Blood 134 mg/dL (70-110)
--- NOTE | 2024-08-29 13:16 | P.PN ---
Subjective Progress Note Date: 08/29/24 The patient is seen today August 27, 2024 in follow-up on the regular medical floor. She is currently awake and alert in no acute distress. She does remain confused at times. She is currently maintaining good O2 saturations in the 90s on 2 L/min per nasal cannula. She remains on antibiotics in the form of cefazolin and Flagyl. She was positive for MSSA in the wound of her left foot. Chest x-ray reveals no evidence of pneumothorax. There is cardiomegaly. There is improved aeration of left perihilar infiltrate or atelectasis. Sodium 134. Potassium 4.2. Bicarb 23. BUN 27. Creatinine 1.0. Glucose 142. Continued on DuoNeb inhalations. Anticoagulated with Eliquis. Protonix for GI prophylaxis. The patient is seen today August 28, 2024 in follow-up on the regular medical floor. She is currently sitting up in bed having breakfast. Awake and alert in no acute distress. Denies any worsening shortness of breath, cough or congestion. Maintaining O2 saturations in the mid 90s on 2 L/min per nasal cannula. She has been afebrile. Hemodynamically stable. Denies any worsening lower extremity pain. Left foot cultures were positive for MSSA and Prevotella species. She remains on cefazolin and Flagyl. She remains on bronchodilators. Continued on IV diuretics. Anticoagulated with Eliquis. The patient is seen today August 29, 2024 in follow-up on the regular medical floor. She is awake and alert in no acute distress. She is maintaining good O2 saturations in the 90s on 2 L/min per nasal cannula. She denies any worsening shortness of breath, cough or congestion. Left foot cultures were positive for MSSA and Prevotolla species. Sodium 131. Potassium 4.0. Bicarb 27. BUN 27. Creatinine 0.85. Glucose 112. She remains on cefazolin and Flagyl. Anticoagulated with Eliquis. Remains on IV diuretics. Objective - Vital Signs Vital signs: Vital Signs Temp 97.7 F 08/29/24 08:00 Pulse 94 08/29/24 12:29 Resp 18 08/29/24 08:00 BP 111/67 08/29/24 08:00 Pulse Ox 94 L 08/29/24 09:28 FiO2 100 08/20/24 18:00 Intake & Output 08/28/24 08/29/24 08/29/24 18:59 06:59 18:59 Intake Total 714 390 Output Total 1 276 Balance 713 114 Weight 133 kg Intake: IV 100 0.9% NS KVO 100 Intake, IV Titration 50 Amount ceFAZolin 2 gm In Sodium 50 Chloride 0.9% 50 ml @ 100 mls/hr IVPB Q8H [facility] Rx#: [id number] Oral 714 240 Output: Urine 275 Stool 1 1 Other: Voiding Method External Catheter External Catheter External Catheter # Bowel Movements 1 ABP, PAP, CO, CI - Last Documented Arterial Blood Pressure 111/62 - Exam An alert, obese 48-year-old female in no acute distress, sitting up in bed, on 2 L of O2 nasal cannula HEENT examination is grossly unremarkable. Mucous membranes are moist. No oral lesions. Neck supple. Full range of motion. No adenopathy thyromegaly or neck vein distention. Cardiovascular examination reveals regular rhythm rate. S1-S2 normal. No S3 or S4. No discernible murmur noted. Sounds are distant. Lungs reveal mostly clear breath sounds. Minimal rhonchi. No wheezes or crackles. Abdomen soft, and obese. Bowel sounds are noted. No mass. Extremities revealed a right below the knee amputation, and transmetatarsal amputation on the left. The patient has a deep wound along the plantar aspect of the transmetatarsal amputation left lower extremity. Dressing in place. Right lower extremity has a below-knee amputation the extremity is quite swollen. There is evidence of cellulitis in both lower extremities. Pulses are present although diminished in the left lower extremity. Cellulitis is improving. Skin is without rash or lesion. Wound in the left foot at the site of a previous transmetatarsal amputation was noted. No active drainage. Bone is exposed. Neurologic examination difficult to assess. No focal neurological deficit. - Labs CBC & Chem 7: 08/26/24 07:16 08/29/24 05:09 Labs: Abnormal Lab Results - Last 24 Hours (Table) 08/28/24 08/28/24 08/29/24 Range/Units 16:45 20:08 05:09 Sodium 131 L (137-145) mmol/L BUN 27 H (7-17) mg/dL Glucose 112 H (74-99) mg/dL POC Glucose (mg/dL) 138 H 162 H (70-110) mg/dL 08/29/24 Range/Units 12:23 Sodium (137-145) mmol/L BUN (7-17) mg/dL Glucose (74-99) mg/dL POC Glucose (mg/dL) 134 H (70-110) mg/dL Assessment and Plan Assessment: Septic shock, likely secondary to soft tissue infection/cellulitis in addition to a wound in the left foot at the site of a transmetatarsal amputation. The patient has a chronic stage IV ulcer that has no active drainage at this point in time. Cultures were noted and it is positive for Staph aureus and Prevotella. Currently on IV cefazolin and Flagyl. Acute lactic acidosis, improved and the lactic acid level is normalizing Severe anion gap metabolic acidosis, improved Acute hyperkalemia, improved , Acute hypoglycemia, likely secondary to above, improved Altered mentation secondary to above, improved Cellulitis of the lower extremities bilaterally, currently on a combination of IV cefazolin and Flagyl Acute on chronic kidney injury with secondary oliguria, consider underlying ATN, renal function improved Right lower extremity DVT, on Eliquis Severe cardiomyopathy with an ejection fraction of 10 to 15% Severe pulmonary hypertension, likely group 2/3 pulmonary hypertension with severe dilatation of the RV Severe peripheral vascular disease, prior right below the knee amputation, and left transmetatarsal amputation. Vascular surgery is on the case History of COPD/asthma Diabetes mellitus, with ongoing episodes of hypoglycemia History of CVA. Coronary artery disease with prior history of myocardial infarction History of hypertension History of DVT Obesity Multiple drug-resistant infections History of pacemaker implantation/defibrillator Plan: The patient was seen and evaluated Labs and medications reviewed Improved and on 2 L nasal cannula Titrate down/off the FiO2 as tolerated Antibiotics per ID service Plan is for subacute rehabilitation at discharge This patient was seen independently by the pulmonary nurse practitioner addressing pulmonary issues I have personally seen and examined the patient, performed the documentation and the assessment and plan as written. Number of minutes spent on the visit: 23.
--- NOTE | 2024-08-29 15:07 | P.PN ---
Subjective Progress Note Date: 08/29/24 Patient is a 48-year-old female with a past medical history of right lower extremity DVT maintained on Eliquis, right BKA, and left TMA who presented to the emergency department with severe right lower extremity pain and recent falls from her wheelchair during transfers. She is a poor historian at the time of the interview. She is very lethargic and falls asleep while answering questionsAO x 2. She rarely opens her eyes without stimulus. During the interview she is noted to have increased respiratory effort, respiratory rate of 10-12, and small sluggish pupils. Narcan was administered and patient became more alert and respiratory rate improved to 16, AOx3, now able to complete full sentences but remains with eyes closed unless prompted to open. Now she states that she has been having bilateral lower extremity pain worse on the right with erythema and swelling of the right lower extremity. She reports compliance with her medications. She also reports some abdominal pain with a few episodes of vomitingappears nonbloody. She endorses pain in the right lower extremity. She denies chest pain, shortness of breath, current abdominal pain, nausea, vomiting. Femur x-ray unremarkable. Bilateral lower extremity venous Doppler showed positive right lower extremity DVT femoral vein to popliteal vein. EKG shows pacing by AICD. WBC 6.1, hemoglobin 10.1, platelets 179, PT 13.3, INR 1.3, sodium 136, potassium 4.6, CO2 20, creatinine 1.73, GFR 34, lactic acid 2.2, phosphorus 4.6, CRP 2.9, TSH 27.6. Afebrile, normotensive, tachycardic in the low 100s saturating well on room air. 08/18. Patient seen sleeping in bed. Still with eyes closed while conversing but will open them when prompted. States she's had no energy for days. Chest x-ray 08/17: Cardiomegaly and mild pulmonary vascular congestion. Brain CT 08/17: No acute intracranial process, old lacunar infarct left thalamus. Pulmonary perfusion scan 08/18: No mismatch defect is evident, intermediate probability for acute pulmonary embolism. WBCs 10.8, hemoglobin 10.4, sodium 134, potassium 5.5, creatinine 2.78, hemoglobin A1c 6.5, N-terminal proBNP 21.9, procalcitonin 1.22. 08/19. Patient seen and examined. Ultrasound abdomen done showed no evidence for acute abdominal process, hepatic steatosis. Ultrasound of kidneys done showed nonobstructing right renal calculus. Patient stated she feels better, still has pain in the right BKA stump. 08/20. Patient seen laying in bed. Preliminary wound culture shows presumptive Staph aureus. Patient appears to be struggling to find her words/Labs: WBCs 16.3, hemoglobin 11.8, potassium 5.6, creatinine 1.99, total bilirubin 2.4. ABG: pH 7.26, pCO2 31, pO2 84, HCO3 14. Patient with worsening prognosis, transfer to ICU. 08/21. Patient seen and examined. Blood work done this morning showed WBC 11.7, hemoglobin 10.5, platelet count 252, sodium 126, potassium 4.7, BUN 53, creatinine 2.29 bilirubin 2.8, AST 2378, ALT 1144. Patient is lethargic, opening eyes, answers question appropriately. 08/22. Patient seen and examined. Labs: WBCs 9.0, hemoglobin 10.2, sodium 132, potassium 4.1, CO2 25, BUN 60, creatinine 2.00. She remains lethargic. 08/23. Patient seen and examined. Labs: WBCs 10.4, hemoglobin 10.7, sodium 131, potassium 3.7, BUN 54, creatinine 1.58, AST 978, ALT 490. 08/24. Patient seen at bedside. Lethargy improved. Patient states that she is doing well but endorses continued pain in her legs. Labs: sodium 128, potassium 5.3, BUN 50, creatinine 1.24, AST 703, ALT 350. 08/25. Patient examined at bedside. She was transferred to [facility] from the ICU yesterday. She states she is feeling much better. Labs pending. 08/26. Patient is evaluated today on the medical floor. Patient with altered mentation today currently alert x 1. Negative brain CT. Ammonia level less than 9. She is having some shortness of breath. Renal function and LFTs are improving. 08/27. Patient seen at bedside. She continues to have altered mentation and endorses chest pain when asked. Chest x-ray yesterday negative. 08/28/24 - Patient seen at bedside today. At bedside today patient's mentation is improved, with resolution of her confusion. Patient is aware of who she is, her birthday, and where she is currently. And her pleasant demeanor has returned. Patient has no acute complaints, stating that her chest pain from yesterday has resolved and she no longer has any. Per infectious disease recommendation while the patient is currently being treated with cefazolin and Flagyl, the patient will be able to finish therapy with oral antibiotics. 08/29/24 - Patient seen at bedside today. Patient's mentation continues to improve without any acute complaints at this moment. Per infectious disease recommendation, patient to continue cefazolin and Flagyl while inpatient and then transition to oral Keflex and Flagyl upon discharge. Per nephrology, patient to continue on IV Bumex with continued monitoring of her electrolytes. Physical therapy saw and evaluated the patient yesterday (08/28) and stated that they will continue to see the patient once daily while in the hospital. Will continue on IV diuretics, as patient still has some edema, while improving, still present. New labs -sodium 131, potassium 4.0, BUN 27, creatinine 0.85 Review of systems: ROS reviewed. Pertinent positives and negatives discussed above, a complete review of systems was performed and all the other systems were negative. Physical examination: Vital signs are reviewed. General: No acute distress. Alert. Oriented x 3. Morbidly obese. HEENT: Head exam is unremarkable. Lateral third of eyebrows thinning. EOMI bilaterally. ACs patent. Nares patent. Lungs: Bilateral breath sounds present; no rhonchi, wheezes, or rales. Heart: Rate and rhythm are regular. S1-S2 present. No murmur/rub/gallops. Abdomen: Soft, nontender, nondistended. Bowel sounds present. Extremities: Right BKA with improving erythema and some edema. Left TMA with ulcer on bottom now covered with gauze and LLE cellulitis which has resolved however some edema still present. Psych: Normal affect and mood. Cooperative. Assessment/Plan: Sepsis, resolved Septic shock, resolved Left lower extremity cellulitis Continue IV cefazolin and Flagyl Continue IV fluids Monitor CBC Monitor CMP Monitor vitals Infectious disease following Chest pain Trend troponin. Troponin times two 0.051, 0.044, respectively Chest x-ray yesterday negative Encephalopathy of unknown origin Urinalysis negative Acute toxic metabolic encephalopathy secondary to medications Judicious use of pain medication Acute transaminitis, improved Hepatic encephalopathy Avoid hepatotoxic agents Monitor LFTs Acute kidney injury, improved Metabolic acidosis, improved Hyperkalemia due to YOLA and acidosis, improved Hyponatremia secondary to YOLA, improved Monitor CPK while on antibiotics Strict I's and O's Daily weights Monitor renal function Continue IV fluids Avoid nephrotoxic agents Nephrology following Right lower extremity deep vein thrombosis Continue Eliquis Surgery consultedno surgical intervention at this time Heme/onc consulted-restarted Eliquis Acute hypoxemic respiratory failure Continue oxygen supplementation Aggressive bronchopulmonary hygiene Continue breathing treatments Critical care following Left foot ulcer Absorptive silver, saline moist gauze, dry gauze, rolled gauze and secured with paper tape change Tuesday, Tuesday, Tuesday per wound care Hypothyroidism Continue levothyroxine 50 mcg daily Diabetes mellitus type 2 Monitor glucose Insulin sliding scale DVT prophylaxis: Eliquis Chronic conditions: Recurrent DVTs, systolic CHF, chronic kidney disease stage IIIb, diabetes mellitus type 2, seizures, history of AICD placement, history of cardiac catheterizations Dr. Lei MD I have performed a history and physical examination and medical decision making of this patient, discussed the same with the the resident, and agree with the assessment and plan as written. I performed brief physical exam. Objective - Vital Signs Vital signs: Vital Signs Temp 98.4 F 08/29/24 01:22 Pulse 103 H 08/29/24 01:22 Resp 16 08/29/24 01:22 BP 115/73 08/29/24 01:22 Pulse Ox 95 08/29/24 01:22 FiO2 100 08/20/24 18:00 Intake & Output 08/28/24 08/29/24 08/29/24 18:59 06:59 18:59 Intake Total 714 390 Output Total 1 276 Balance 713 114 Weight 133 kg Intake: IV 100 0.9% NS KVO 100 Intake, IV Titration 50 Amount ceFAZolin 2 gm In Sodium 50 Chloride 0.9% 50 ml @ 100 mls/hr IVPB Q8H [facility] Rx#: [id number] Oral 714 240 Output: Urine 275 Stool 1 1 Other: Voiding Method External Catheter External Catheter # Bowel Movements 1 ABP, PAP, CO, CI - Last Documented Arterial Blood Pressure 111/62 - Labs CBC & Chem 7: 08/26/24 07:16 08/30/24 06:06 Labs: Abnormal Lab Results - Last 24 Hours (Table) 08/28/24 08/28/24 08/28/24 Range/Units 11:52 11:58 16:45 ABG pO2 44 L* (83-108) mmHg ABG HCO3 30 H (21-25) mmol/L ABG O2 Saturation 76.0 L (94-97) % Sodium (137-145) mmol/L BUN (7-17) mg/dL Glucose (74-99) mg/dL POC Glucose (mg/dL) 141 H 138 H (70-110) mg/dL 08/28/24 08/29/24 Range/Units 20:08 05:09 ABG pO2 (83-108) mmHg ABG HCO3 (21-25) mmol/L ABG O2 Saturation (94-97) % Sodium 131 L (137-145) mmol/L BUN 27 H (7-17) mg/dL Glucose 112 H (74-99) mg/dL POC Glucose (mg/dL) 162 H (70-110) mg/dL
[2024-08-29 17:15] LABS: Glucose,Whole Blood 106 mg/dL (70-110)
--- NOTE | 2024-08-29 19:16 | P.PN ---
Subjective patient is seen for follow-up for acute kidney injury. Maintained on IV Bumex for volume overload. No complaints of shortness of breath. Serum creatinine improved to 0.8 mg/dL. Objective - Vital Signs Vital signs: Vital Signs Temp 97 F L 08/29/24 13:29 Pulse 84 08/29/24 16:36 Resp 18 08/29/24 13:29 BP 115/77 08/29/24 13:29 Pulse Ox 100 08/29/24 13:29 FiO2 100 08/20/24 18:00 Intake & Output 08/29/24 08/29/24 08/30/24 06:59 18:59 06:59 Intake Total 390 580 Output Total 276 600 Balance 114 -20 Weight 133 kg Intake: IV 100 0.9% NS KVO 100 Intake, IV Titration 50 Amount ceFAZolin 2 gm In Sodium 50 Chloride 0.9% 50 ml @ 100 mls/hr IVPB Q8H [facility] Rx#: [id number] Oral 240 580 Output: Urine 275 600 Stool 1 Other: Voiding Method External Catheter External Catheter # Voids 2 ABP, PAP, CO, CI - Last Documented Arterial Blood Pressure 111/62 - Exam patient is awake, confused, no acute distress Examination of the heart S1 and S2 Examination the lungs decreased breath sounds at the bases Abdomen is soft morbidly obese Examination of lower extremities shows right BKA with redness noted. Redness noted in the left lower leg as well. - Labs CBC & Chem 7: 08/26/24 07:16 08/29/24 05:09 Labs: Abnormal Lab Results - Last 24 Hours (Table) 08/28/24 08/29/24 08/29/24 Range/Units 20:08 05:09 12:23 Sodium 131 L (137-145) mmol/L BUN 27 H (7-17) mg/dL Glucose 112 H (74-99) mg/dL POC Glucose (mg/dL) 162 H 134 H (70-110) mg/dL Assessment and Plan Assessment: 1. Acute kidney injury secondary to ATN secondary to septic shock. Baseline creatinine near 1. Renal function improving. Creatinine 0.8 yesterday. Nonoliguric. No hydronephrosis noted on kidney ultrasound. Left kidney not visualized due to patient body habitus. 2. Hyperkalemia due to YOLA and acidosis. Improved. 3. AGMA from lactic acidosis with non-anion gap metabolic acidosis from IVF with respiratory acidosis. Status post bicarb drip. Improved. 4. CKD stage IIIa 2/2 cardiorenal syndrome. Cr baseline 1-1.1 5. CHFrEF (15-20%). 6. Hypervolemic hyponatremia. Stable. 7. LLE cellulitis with DVT on antibiotics and anticoagulation. 8. Type 2 Diabetes Plan: continue with IV Bumex Monitor electrolytes Repeat labs in a.m.
[2024-08-29 20:22] LABS: Glucose,Whole Blood 183 mg/dL (70-110)
[2024-08-30 07:04] LABS: Glucose,Whole Blood 110 mg/dL (70-110)
[2024-08-30 08:32] LABS: BUN/Creat Ratio 22.64 Ratio (12.00-20.00); Blood Urea Nitrogen 24.9 mg/dL (9.0-27.0); Chloride 96 mmol/L (96-109); Glucose 118 mg/dL (70-110); Potassium 4.7 mmol/L (3.5-5.5); Sodium 133 mmol/L (135-145)
[2024-08-30 08:33] LABS: Calcium 8.6 mg/dL (8.7-10.3)
--- NOTE | 2024-08-30 09:54 | P.PN ---
Subjective Patient is a 48-year-old female with a past medical history of right lower extremity DVT maintained on Eliquis, right BKA, and left TMA who presented to the emergency department with severe right lower extremity pain and recent falls from her wheelchair during transfers. She is a poor historian at the time of the interview. She is very lethargic and falls asleep while answering questionsAO x 2. She rarely opens her eyes without stimulus. During the interview she is noted to have increased respiratory effort, respiratory rate of 10-12, and small sluggish pupils. Narcan was administered and patient became more alert and respiratory rate improved to 16, AOx3, now able to complete full sentences but remains with eyes closed unless prompted to open. Now she states that she has been having bilateral lower extremity pain worse on the right with erythema and swelling of the right lower extremity. She reports compliance with her medications. She also reports some abdominal pain with a few episodes of vomitingappears nonbloody. She endorses pain in the right lower extremity. She denies chest pain, shortness of breath, current abdominal pain, nausea, vomiting. Femur x-ray unremarkable. Bilateral lower extremity venous Doppler showed positive right lower extremity DVT femoral vein to popliteal vein. EKG shows pacing by AICD. WBC 6.1, hemoglobin 10.1, platelets 179, PT 13.3, INR 1.3, sodium 136, potassium 4.6, CO2 20, creatinine 1.73, GFR 34, lactic acid 2.2, phosphorus 4.6, CRP 2.9, TSH 27.6. Afebrile, normotensive, tachycardic in the low 100s saturating well on room air. 08/18. Patient seen sleeping in bed. Still with eyes closed while conversing but will open them when prompted. States she's had no energy for days. Chest x-ray 08/17: Cardiomegaly and mild pulmonary vascular congestion. Brain CT 08/17: No acute intracranial process, old lacunar infarct left thalamus. Pulmonary perfusion scan 08/18: No mismatch defect is evident, intermediate probability for acute pulmonary embolism. WBCs 10.8, hemoglobin 10.4, sodium 134, potassium 5.5, creatinine 2.78, hemoglobin A1c 6.5, N-terminal proBNP 21.9, procalcitonin 1.22. 08/19. Patient seen and examined. Ultrasound abdomen done showed no evidence f or acute abdominal process, hepatic steatosis. Ultrasound of kidneys done showed nonobstructing right renal calculus. Patient stated she feels better, still has pain in the right BKA stump. 08/20. Patient seen laying in bed. Preliminary wound culture shows presumptive Staph aureus. Patient appears to be struggling to find her words/Labs: WBCs 16.3, hemoglobin 11.8, potassium 5.6, creatinine 1.99, total bilirubin 2.4. ABG: pH 7.26, pCO2 31, pO2 84, HCO3 14. Patient with worsening prognosis, transfer to ICU. 08/21. Patient seen and examined. Blood work done this morning showed WBC 1 1.7, hemoglobin 10.5, platelet count 252, sodium 126, potassium 4.7, BUN 53, creatinine 2.29 bilirubin 2.8, AST 2378, ALT 1144. Patient is lethargic, opening eyes, answers question appropriately. 08/22. Patient seen and examined. Labs: WBCs 9.0, hemoglobin 10.2, sodium 132, potassium 4.1, CO2 25, BUN 60, creatinine 2.00. She remains lethargic. 08/23. Patient seen and examined. Labs: WBCs 10.4, hemoglobin 10.7, sodium 131, potassium 3.7, BUN 54, creatinine 1.58, AST 978, ALT 490. 08/24. Patient seen at bedside. Lethargy improved. Patient states that she is doing well but endorses continued pain in her legs. Labs: sodium 128, potassium 5.3, BUN 50, creatinine 1.24, AST 703, ALT 350. 08/25. Patient examined at bedside. She was transferred to [facility] from the ICU yesterday. She states she is feeling much better. Labs pending. 08/26. Patient is evaluated today on the medical floor. Patient with altered mentation today currently alert x 1. Negative brain CT. Ammonia level less than 9. She is having some shortness of breath. Renal function and LFTs are improving. 08/27. Patient seen at bedside. She continues to have altered mentation and endorses chest pain when asked. Chest x-ray yesterday negative. 08/28/24 - Patient seen at bedside today. At bedside today patient's mentation is improved, with resolution of her confusion. Patient is aware of who she is, her birthday, and where she is currently. And her pleasant demeanor has returned. Patient has no acute complaints, stating that her chest pain from yesterday has resolved and she no longer has any. Per infectious disease recommendation while the patient is currently being treated with cefazolin and Flagyl, the patient will be able to finish therapy with oral antibiotics. 08/29/24 - Patient seen at bedside today. Patient's mentation continues to improve without any acute complaints at this moment. Per infectious disease recommendation, patient to continue cefazolin and Flagyl while inpatient and then transition to oral Keflex and Flagyl upon discharge. Per nephrology, patient to continue on IV Bumex with continued monitoring of her electrolytes. Physical therapy saw and evaluated the patient yesterday (08/28) and stated that they will continue to see the patient once daily while in the hospital. Will continue on IV diuretics, as patient still has some edema, while improving, still present. 08/30/2024: Patient seen at bedside. No significant overnight events. Patient reports she is feeling well this morning. Cellulitis continues to regress from initial marked line. Review of systems: ROS reviewed. Pertinent positives and negatives discussed above, a complete review of systems was performed and all the other systems were negative. Physical examination: Vital signs are reviewed. General: No acute distress. Alert. Oriented x 3. Morbidly obese. HEENT: Head exam is unremarkable. Lateral third of eyebrows thinning. EOMI bilaterally. ACs patent. Nares patent. Lungs: Bilateral breath sounds present; no rhonchi, wheezes, or rales. Heart: Rate and rhythm are regular. S1-S2 present. No murmur/rub/gallops. Abdomen: Soft, nontender, nondistended. Bowel sounds present. Extremities: Right BKA with improving erythema and some edema. Left TMA with ulcer on bottom now covered with gauze and LLE cellulitis which has resolved however some edema still present. Psych: Normal affect and mood. Cooperative. Assessment/Plan: Sepsis, resolved Septic shock, resolved Left lower extremity cellulitis Continue IV cefazolin and Flagyl Continue IV fluids Monitor CBC Monitor CMP Monitor vitals Infectious disease following Chest pain Trend troponin. Troponin times two 0.051, 0.044, respectively Chest x-ray yesterday negative Encephalopathy of unknown origin Urinalysis negative Acute toxic metabolic encephalopathy secondary to medications Judicious use of pain medication Acute transaminitis, improved Hepatic encephalopathy Avoid hepatotoxic agents Monitor LFTs Acute kidney injury, improved Metabolic acidosis, improved Hyperkalemia due to YOLA and acidosis, improved Hyponatremia secondary to YOLA, improved Monitor CPK while on antibiotics Strict I's and O's Daily weights Monitor renal function Continue IV fluids Avoid nephrotoxic agents Nephrology following Right lower extremity deep vein thrombosis Continue Eliquis Surgery consultedno surgical intervention at this time Heme/onc consulted-restarted Eliquis Acute hypoxemic respiratory failure Continue oxygen supplementation Aggressive bronchopulmonary hygiene Continue breathing treatments Critical care following Left foot ulcer Absorptive silver, saline moist gauze, dry gauze, rolled gauze and secured with paper tape change Tuesday, Tuesday, Tuesday per wound care Hypothyroidism Continue levothyroxine 50 mcg daily Diabetes mellitus type 2 Monitor glucose Insulin sliding scale DVT prophylaxis: Eliquis Chronic conditions: Recurrent DVTs, systolic CHF, chronic kidney disease stage IIIb, diabetes mellitus type 2, seizures, history of AICD placement, history of cardiac catheterizations Dr. Lei MD I have performed a history and physical examination and medical decision making of this patient, discussed the same with the the resident, and agree with the assessment and plan as written. I performed brief physical exam. Objective - Vital Signs Vital signs: Vital Signs Temp 97.7 F 08/30/24 01:43 Pulse 98 08/30/24 01:43 Resp 18 08/30/24 01:43 BP 107/73 08/30/24 01:43 Pulse Ox 98 08/30/24 01:43 FiO2 100 08/20/24 18:00 Intake & Output 08/29/24 08/30/24 08/30/24 18:59 06:59 18:59 Intake Total 580 340 Output Total 600 401 Balance -20 -61 Weight 155 kg Intake: IV 100 0.9% NS KVO 50 ceFAZolin 2 gm In Sodium 50 Chloride 0.9% 50 ml @ 100 mls/hr IVPB Q8H [facility] Rx#: [id number] Oral 580 240 Output: Urine 600 Stool 401 Other: Voiding Method External Catheter External Catheter # Voids 2 1 # Bowel Movements 1 ABP, PAP, CO, CI - Last Documented Arterial Blood Pressure 111/62 - Labs CBC & Chem 7: 08/26/24 07:16 08/31/24 05:04 Labs: Abnormal Lab Results - Last 24 Hours (Table) 08/29/24 08/29/24 Range/Units 12:23 20:21 POC Glucose (mg/dL) 134 H 183 H (70-110) mg/dL
[2024-08-30 11:45] LABS: Glucose,Whole Blood 133 mg/dL (70-110)
--- NOTE | 2024-08-30 13:44 | P.PN ---
Subjective Progress Note Date: 08/30/24 The patient is seen today August 27, 2024 in follow-up on the regular medical floor. She is currently awake and alert in no acute distress. She does remain confused at times. She is currently maintaining good O2 saturations in the 90s on 2 L/min per nasal cannula. She remains on antibiotics in the form of cefazolin and Flagyl. She was positive for MSSA in the wound of her left foot. Chest x-ray reveals no evidence of pneumothorax. There is cardiomegaly. There is improved aeration of left perihilar infiltrate or atelectasis. Sodium 134. Potassium 4.2. Bicarb 23. BUN 27. Creatinine 1.0. Glucose 142. Continued on DuoNeb inhalations. Anticoagulated with Eliquis. Protonix for GI prophylaxis. The patient is seen today August 28, 2024 in follow-up on the regular medical floor. She is currently sitting up in bed having breakfast. Awake and alert in no acute distress. Denies any worsening shortness of breath, cough or congestion. Maintaining O2 saturations in the mid 90s on 2 L/min per nasal cannula. She has been afebrile. Hemodynamically stable. Denies any worsening lower extremity pain. Left foot cultures were positive for MSSA and Prevotella species. She remains on cefazolin and Flagyl. She remains on bronchodilators. Continued on IV diuretics. Anticoagulated with Eliquis. The patient is seen today August 29, 2024 in follow-up on the regular medical floor. She is awake and alert in no acute distress. She is maintaining good O2 saturations in the 90s on 2 L/min per nasal cannula. She denies any worsening shortness of breath, cough or congestion. Left foot cultures were positive for MSSA and Prevotolla species. Sodium 131. Potassium 4.0. Bicarb 27. BUN 27. Creatinine 0.85. Glucose 112. She remains on cefazolin and Flagyl. Anticoagulated with Eliquis. Remains on IV diuretics. The patient is seen today August 30, 2024 in follow-up on the regular medical floor. She is currently sitting up in bed having breakfast. Awake and alert in no acute distress. Denies any worsening shortness of breath, cough or congestion. She is maintaining O2 saturations in the 90s on 2 L/min per nasal cannula. She remains on cefazolin and Flagyl per ID service. She remains on IV Bumex. Sodium 133. Potassium 4.7. Bicarb 26. BUN 25. Creatinine 1.1. Glucose 118. Objective - Vital Signs Vital signs: Vital Signs Temp 97.4 F L 08/30/24 11:37 Pulse 78 08/30/24 11:39 Resp 18 08/30/24 11:37 BP 123/78 08/30/24 11:37 Pulse Ox 100 08/30/24 11:37 FiO2 100 08/20/24 18:00 Intake & Output 08/29/24 08/30/24 08/30/24 18:59 06:59 18:59 Intake Total 580 340 240 Output Total 600 401 Balance - 240 Weight 155 kg Intake: IV 100 0.9% NS KVO 50 ceFAZolin 2 gm In Sodium 50 Chloride 0.9% 50 ml @ 100 mls/hr IVPB Q8H [facility] Rx#: [id number] Oral 580 240 240 Output: Urine 600 Stool 401 Other: Voiding Method External Catheter External Catheter External Catheter # Voids 2 1 # Bowel Movements 1 ABP, PAP, CO, CI - Last Documented Arterial Blood Pressure 111/62 - Exam An alert, obese pleasant 48-year-old female, no acute distress, on 2 L of O2 nasal cannula HEENT examination is grossly unremarkable. Mucous membranes are moist. No oral lesions. Neck supple. Full range of motion. No adenopathy thyromegaly or neck vein distention. Cardiovascular examination reveals regular rhythm rate. S1-S2 normal. No S3 or S4. No discernible murmur noted. Sounds are distant. Lungs reveal mostly clear breath sounds. Minimal rhonchi. No wheezes or crackles. Abdomen soft, and obese. Bowel sounds are noted. No mass. Extremities revealed a right below the knee amputation, and transmetatarsal amputation on the left. The patient has a deep wound along the plantar aspect of the transmetatarsal amputation left lower extremity. Dressing in place. Right lower extremity has a below-knee amputation the extremity is quite swollen. There is evidence of cellulitis in both lower extremities. Pulses are present although diminished in the left lower extremity. Cellulitis is improving. Skin is without rash or lesion. Wound in the left foot at the site of a previous transmetatarsal amputation was noted. No active drainage. Bone is exposed. Neurologic examination difficult to assess. No focal neurological deficit. - Labs CBC & Chem 7: 08/26/24 07:16 08/30/24 06:06 Labs: Abnormal Lab Results - Last 24 Hours (Table) 08/29/24 08/30/24 08/30/24 Range/Units 20:21 06:06 11:44 Sodium 133 L (135-145) mmol/L BUN/Creatinine Ratio 22.64 H (12.00-20.00) Ratio Glucose 118 H (70-110) mg/dL POC Glucose (mg/dL) 183 H 133 H (70-110) mg/dL Calcium 8.6 L (8.7-10.3) mg/dL Assessment and Plan Assessment: Septic shock, likely secondary to soft tissue infection/cellulitis in addition to a wound in the left foot at the site of a transmetatarsal amputation. The patient has a chronic stage IV ulcer that has no active drainage at this point in time. Cultures were noted and it is positive for Staph aureus and Prevotella. Currently on IV cefazolin and Flagyl. Acute lactic acidosis, improved and the lactic acid level is normalizing Severe anion gap metabolic acidosis, improved Acute hyperkalemia, improved , Acute hypoglycemia, likely secondary to above, improved Altered mentation secondary to above, improved Cellulitis of the lower extremities bilaterally, currently on a combination of IV cefazolin and Flagyl Acute on chronic kidney injury with secondary oliguria, consider underlying ATN, renal function improved Right lower extremity DVT, on Eliquis Severe cardiomyopathy with an ejection fraction of 10 to 15% Severe pulmonary hypertension, likely group 2/3 pulmonary hypertension with severe dilatation of the RV Severe peripheral vascular disease, prior right below the knee amputation, and left transmetatarsal amputation. Vascular surgery is on the case History of COPD/asthma Diabetes mellitus, with ongoing episodes of hypoglycemia History of CVA. Coronary artery disease with prior history of myocardial infarction History of hypertension History of DVT Obesity Multiple drug-resistant infections History of pacemaker implantation/defibrillator Plan: The patient was seen and evaluated Labs and medications reviewed Improved and on 2 L nasal cannula Plan is to switch to oral antibiotics at discharge Case management working on discharge planning This patient was seen independently by the pulmonary nurse practitioner addressing pulmonary issues I have personally seen and examined the patient, performed the documentation and the assessment and plan as written. Number of minutes spent on the visit: 24.
--- NOTE | 2024-08-30 14:46 | P.PN ---
Subjective Progress Note Date: 08/30/24 Principal diagnosis: Reason for follow-up is left diabetic foot ulcer and cellulitis Patient is a 48-year female with multiple comorbidities including diabetes mellitus the patient did have a right diabetic foot infection requiring right below the amputation and a chronic nonhealing wound to the left foot to be getting to the hospital with cellulitis to the left lower extremity and wound infection. On today's evaluation that is 08/30/2024, Patient is afebrile patient is currently on 2 L nasal cannula oxygen and denies having any shortness of breath, the patient denies any chest pain or cough, the patient denies any nausea vomiting did not have any abdominal pain and no diarrhea denies any worsening pain to the left lower extremity. Patient did have a creatinine of 1.1 Objective - Vital Signs Vital signs: Vital Signs Temp 97.4 F L 08/30/24 11:37 Pulse 78 08/30/24 11:39 Resp 18 08/30/24 11:37 BP 123/78 08/30/24 11:37 Pulse Ox 100 08/30/24 11:37 FiO2 100 08/20/24 18:00 Intake & Output 08/29/24 08/30/24 08/30/24 18:59 06:59 18:59 Intake Total 580 340 240 Output Total 600 401 Balance - 240 Weight 155 kg Intake: IV 100 0.9% NS KVO 50 ceFAZolin 2 gm In Sodium 50 Chloride 0.9% 50 ml @ 100 mls/hr IVPB Q8H [facility] Rx#: [id number] Oral 580 240 240 Output: Urine 600 Stool 401 Other: Voiding Method External Catheter External Catheter External Catheter # Voids 2 1 # Bowel Movements 1 ABP, PAP, CO, CI - Last Documented Arterial Blood Pressure 111/62 - Exam GENERAL DESCRIPTION: Middle-age female lying in bed in no distress RESPIRATORY SYSTEM: Unlabored breathing , decreased breath sounds at bases HEART: S1 S2 regular rate and rhythm , ABDOMEN: Soft , no tenderness EXTREMITIES: Left leg not is cool to touch swelling persist - Labs CBC & Chem 7: 08/26/24 07:16 08/30/24 06:06 Labs: Abnormal Lab Results - Last 24 Hours (Table) 08/29/24 08/30/24 08/30/24 Range/Units 20:21 06:06 11:44 Sodium 133 L (135-145) mmol/L BUN/Creatinine Ratio 22.64 H (12.00-20.00) Ratio Glucose 118 H (70-110) mg/dL POC Glucose (mg/dL) 183 H 133 H (70-110) mg/dL Calcium 8.6 L (8.7-10.3) mg/dL Assessment and Plan (1) Cellulitis of left foot Current Visit: Yes Status: Acute Code(s): L03.116 - CELLULITIS OF LEFT LOWER LIMB SNOMED Code(s): 90701149606917121 (2) Allergy to multiple antibiotics Current Visit: No Status: Acute Code(s): Z88.1 - ALLERGY STATUS TO OTHER ANTIBIOTIC AGENTS SNOMED Code(s): 052578539 (3) Diabetic ulcer of left foot Current Visit: No Status: Acute Code(s): E11.621 - TYPE 2 DIABETES MELLITUS WITH FOOT ULCER; L97.529 - NON-PRESSURE CHRONIC ULCER OTH PRT LEFT FOOT W UNSP SEVERITY SNOMED Code(s): 802061042 Plan: 1patient with a chronic nonhealing wound to the left foot plantar aspect now with evidence of left lower extremity cellulitis likely being treated for this episode of cellulitis and will need to cover for the gram-positive as well as gram-negative pathogen. 2patient with multiple antibiotic ALLERGIES that would limit the number of antibiotic safe to use 3local wound culture currently growing MSSA and Prevotella 4-patient remains to be afebrile improvement to the lower extremity cellulitis she will continue with cefazolin Flagyl and finish therapy with oral Keflex and Flagyl x 7 days on discharge Dictation was produced using [employer] dictation software. please excuse any gr ammatical, word or spelling errors. Time with Patient: Less than 30
[2024-08-30 17:08] LABS: Glucose,Whole Blood 120 mg/dL (70-110)
[2024-08-30 20:01] LABS: Glucose,Whole Blood 170 mg/dL (70-110)
[2024-08-31 07:07] LABS: Glucose,Whole Blood 125 mg/dL (70-110)
[2024-08-31 08:46] LABS: BUN/Creat Ratio 20.64 Ratio (12.00-20.00); Blood Urea Nitrogen 28.9 mg/dL (9.0-27.0); Calcium 8.6 mg/dL (8.7-10.3); Carbon Dioxide 26.2 mmol/L (21.6-31.8); Chloride 97 mmol/L (96-109); Glucose 125 mg/dL (70-110); Potassium 4.5 mmol/L (3.5-5.5); Sodium 134 mmol/L (135-145)
[2024-08-31 12:41] LABS: Glucose,Whole Blood 140 mg/dL (70-110)
--- NOTE | 2024-08-31 12:44 | P.PN ---
Subjective Progress Note Date: 08/31/24 The patient is seen today August 27, 2024 in follow-up on the regular medical floor. She is currently awake and alert in no acute distress. She does remain confused at times. She is currently maintaining good O2 saturations in the 90s on 2 L/min per nasal cannula. She remains on antibiotics in the form of cefazolin and Flagyl. She was positive for MSSA in the wound of her left foot. Chest x-ray reveals no evidence of pneumothorax. There is cardiomegaly. There is improved aeration of left perihilar infiltrate or atelectasis. Sodium 134. Potassium 4.2. Bicarb 23. BUN 27. Creatinine 1.0. Glucose 142. Continued on DuoNeb inhalations. Anticoagulated with Eliquis. Protonix for GI prophylaxis. The patient is seen today August 28, 2024 in follow-up on the regular medical floor. She is currently sitting up in bed having breakfast. Awake and alert in no acute distress. Denies any worsening shortness of breath, cough or congestion. Maintaining O2 saturations in the mid 90s on 2 L/min per nasal cannula. She has been afebrile. Hemodynamically stable. Denies any worsening lower extremity pain. Left foot cultures were positive for MSSA and Prevotella species. She remains on cefazolin and Flagyl. She remains on bronchodilators. Continued on IV diuretics. Anticoagulated with Eliquis. The patient is seen today August 29, 2024 in follow-up on the regular medical floor. She is awake and alert in no acute distress. She is maintaining good O2 saturations in the 90s on 2 L/min per nasal cannula. She denies any worsening shortness of breath, cough or congestion. Left foot cultures were positive for MSSA and Prevotolla species. Sodium 131. Potassium 4.0. Bicarb 27. BUN 27. Creatinine 0.85. Glucose 112. She remains on cefazolin and Flagyl. Anticoagulated with Eliquis. Remains on IV diuretics. The patient is seen today August 30, 2024 in follow-up on the regular medical floor. She is currently sitting up in bed having breakfast. Awake and alert in no acute distress. Denies any worsening shortness of breath, cough or congestion. She is maintaining O2 saturations in the 90s on 2 L/min per nasal cannula. She remains on cefazolin and Flagyl per ID service. She remains on IV Bumex. Sodium 133. Potassium 4.7. Bicarb 26. BUN 25. Creatinine 1.1. Glucose 118. The patient is seen today August 31, 2024 in follow-up on the regular medical floor. She is awake and alert in no acute distress. Sitting up in bed having breakfast. Denies any shortness of breath, cough or congestion. She is maintaining good O2 saturation in the 90s on 2 L/min per nasal cannula. She has been afebrile. Hemodynamically stable. Sodium 134. Potassium 4.5. Bicarb 26. BUN 29. Creatinine 1.4. Glucose 125. She remains on cefazolin and Flagyl. Continued on bronchodilators. Anticoagulated with Eliquis. Objective - Vital Signs Vital signs: Vital Signs Temp 97.4 F L 08/31/24 08:00 Pulse 86 08/31/24 12:10 Resp 18 08/31/24 08:00 BP 90/64 08/31/24 08:00 Pulse Ox 96 08/31/24 08:34 FiO2 100 08/20/24 18:00 Intake & Output 08/30/24 08/31/24 08/31/24 18:59 06:59 18:59 Intake Total 477 290 477 Output Total 400 Balance 77 290 477 Weight 153 kg Intake: Intake, IV Titration 50 Amount ceFAZolin 2 gm In Sodium 50 Chloride 0.9% 50 ml @ 100 mls/hr IVPB Q8H [facility] Rx#: [id number] Oral 477 240 477 Output: Urine 400 Other: Voiding Method External Catheter External Catheter External Catheter # Voids 3 ABP, PAP, CO, CI - Last Documented Arterial Blood Pressure 111/62 - Exam An alert 48-year-old female, sitting up in bed having breakfast, no acute distre ss, on 2 L of O2 by nasal cannula HEENT examination is grossly unremarkable. Mucous membranes are moist. No oral lesions. Neck supple. Full range of motion. No adenopathy thyromegaly or neck vein distention. Cardiovascular examination reveals regular rhythm rate. S1-S2 normal. No S3 or S4. No discernible murmur noted. Sounds are distant. Lungs reveal mostly clear breath sounds. Minimal rhonchi. No wheezes or crackles. Abdomen soft, and obese. Bowel sounds are noted. No mass. Extremities revealed a right below the knee amputation, and transmetatarsal amputation on the left. The patient has a deep wound along the plantar aspect of the transmetatarsal amputation left lower extremity. Dressing in place. Right lower extremity has a below-knee amputation the extremity is quite swollen. There is evidence of cellulitis in both lower extremities. Pulses are present although diminished in the left lower extremity. Cellulitis is improving. Skin is without rash or lesion. Wound in the left foot at the site of a previous transmetatarsal amputation was noted. No active drainage. Bone is exposed. Neurologic examination difficult to assess. No focal neurological deficit. - Labs CBC & Chem 7: 08/26/24 07:16 08/31/24 05:04 Labs: Abnormal Lab Results - Last 24 Hours (Table) 08/30/24 08/30/24 08/31/24 Range/Units 17:07 19:59 05:04 Sodium 134 L (135-145) mmol/L BUN 28.9 H (9.0-27.0) mg/dL Est GFR (CKD-EPI) 46 L (>=60) BUN/Creatinine Ratio 20.64 H (12.00-20.00) Ratio Glucose 125 H (70-110) mg/dL POC Glucose (mg/dL) 120 H 170 H (70-110) mg/dL Calcium 8.6 L (8.7-10.3) mg/dL 08/31/24 Range/Units 07:03 Sodium (135-145) mmol/L BUN (9.0-27.0) mg/dL Est GFR (CKD-EPI) (>=60) BUN/Creatinine Ratio (12.00-20.00) Ratio Glucose (70-110) mg/dL POC Glucose (mg/dL) 125 H (70-110) mg/dL Calcium (8.7-10.3) mg/dL Assessment and Plan Assessment: Septic shock, likely secondary to soft tissue infection/cellulitis in addition to a wound in the left foot at the site of a transmetatarsal amputation. The patient has a chronic stage IV ulcer that has no active drainage at this point in time. Cultures were noted and it is positive for Staph aureus and Prevotel la. Currently on IV cefazolin and Flagyl Acute lactic acidosis, improved Severe anion gap metabolic acidosis, improved Acute hyperkalemia, improved , Acute hypoglycemia, likely secondary to above, improved Altered mentation secondary to above, improved Cellulitis of the lower extremities bilaterally, currently on a combination of IV cefazolin and Flagyl Acute on chronic kidney injury with secondary oliguria, consider underlying ATN, renal function improved Right lower extremity DVT, on Eliquis Severe cardiomyopathy with an ejection fraction of 10 to 15% Severe pulmonary hypertension, likely group 2/3 pulmonary hypertension with severe dilatation of the RV Severe peripheral vascular disease, prior right below the knee amputation, and left transmetatarsal amputation. Vascular surgery is on the case History of COPD/asthma Diabetes mellitus, with ongoing episodes of hypoglycemia History of CVA. Coronary artery disease with prior history of myocardial infarction History of hypertension History of DVT Obesity Multiple drug-resistant infections History of pacemaker implantation/defibrillator Plan: The patient was seen and evaluated Labs and medications reviewed Cleared for discharge from the pulmonary standpoint Case management working on discharge placement This patient was seen independently by the pulmonary nurse practitioner addressing pulmonary issues I have personally seen and examined the patient, performed the documentation and the assessment and plan as written. Number of minutes spent on the visit: 23.
[2024-08-31 12:47] VITALS: BMI 52.8
--- NOTE | 2024-08-31 12:51 | P.PN ---
Subjective Progress Note Date: 08/31/24 Patient is a 48-year-old female with a past medical history of right lower extremity DVT maintained on Eliquis, right BKA, and left TMA who presented to the emergency department with severe right lower extremity pain and recent falls from her wheelchair during transfers. She is a poor historian at the time of the interview. She is very lethargic and falls asleep while answering questionsAO x 2. She rarely opens her eyes without stimulus. During the interview she is noted to have increased respiratory effort, respiratory rate of 10-12, and small sluggish pupils. Narcan was administered and patient became more alert and respiratory rate improved to 16, AOx3, now able to complete full sentences but remains with eyes closed unless prompted to open. Now she states that she has been having bilateral lower extremity pain worse on the right with erythema and swelling of the right lower extremity. She reports compliance with her medications. She also reports some abdominal pain with a few episodes of vomitingappears nonbloody. She endorses pain in the right lower extremity. She denies chest pain, shortness of breath, current abdominal pain, nausea, vomiting. Femur x-ray unremarkable. Bilateral lower extremity venous Doppler showed positive right lower extremity DVT femoral vein to popliteal vein. EKG shows pacing by AICD. WBC 6.1, hemoglobin 10.1, platelets 179, PT 13.3, INR 1.3, sodium 136, potassium 4.6, CO2 20, creatinine 1.73, GFR 34, lactic acid 2.2, phosphorus 4.6, CRP 2.9, TSH 27.6. Afebrile, normotensive, tachycardic in the low 100s saturating well on room air. 08/18. Patient seen sleeping in bed. Still with eyes closed while conversing but will open them when prompted. States she's had no energy for days. Chest x-ray 08/17: Cardiomegaly and mild pulmonary vascular congestion. Brain CT 08/17: No acute intracranial process, old lacunar infarct left thalamus. Pulmonary perfusion scan 08/18: No mismatch defect is evident, intermediate probability for acute pulmonary embolism. WBCs 10.8, hemoglobin 10.4, sodium 134, potassium 5.5, creatinine 2.78, hemoglobin A1c 6.5, N-terminal proBNP 21.9, procalcitonin 1.22. 08/19. Patient seen and examined. Ultrasound abdomen done showed no evidence for acute abdominal process, hepatic steatosis. Ultrasound of kidneys done showed nonobstructing right renal calculus. Patient stated she feels better, still has pain in the right BKA stump. 08/20. Patient seen laying in bed. Preliminary wound culture shows presumptive Staph aureus. Patient appears to be struggling to find her words/Labs: WBCs 16.3, hemoglobin 11.8, potassium 5.6, creatinine 1.99, total bilirubin 2.4. ABG: pH 7.26, pCO2 31, pO2 84, HCO3 14. Patient with worsening prognosis, transfer to ICU. 08/21. Patient seen and examined. Blood work done this morning showed WBC 11.7, hemoglobin 10.5, platelet count 252, sodium 126, potassium 4.7, BUN 53, creatinine 2.29 bilirubin 2.8, AST 2378, ALT 1144. Patient is lethargic, opening eyes, answers question appropriately. 08/22. Patient seen and examined. Labs: WBCs 9.0, hemoglobin 10.2, sodium 132, potassium 4.1, CO2 25, BUN 60, creatinine 2.00. She remains lethargic. 08/23. Patient seen and examined. Labs: WBCs 10.4, hemoglobin 10.7, sodium 131, potassium 3.7, BUN 54, creatinine 1.58, AST 978, ALT 490. 08/24. Patient seen at bedside. Lethargy improved. Patient states that she is doing well but endorses continued pain in her legs. Labs: sodium 128, potassium 5.3, BUN 50, creatinine 1.24, AST 703, ALT 350. 08/25. Patient examined at bedside. She was transferred to [facility] from the ICU yesterday. She states she is feeling much better. Labs pending. 08/26. Patient is evaluated today on the medical floor. Patient with altered mentation today currently alert x 1. Negative brain CT. Ammonia level less than 9. She is having some shortness of breath. Renal function and LFTs are improving. 08/27. Patient seen at bedside. She continues to have altered mentation and endorses chest pain when asked. Chest x-ray yesterday negative. 08/28/24 - Patient seen at bedside today. At bedside today patient's mentation is improved, with resolution of her confusion. Patient is aware of who she is, her birthday, and where she is currently. And her pleasant demeanor has returned. Patient has no acute complaints, stating that her chest pain from yesterday has resolved and she no longer has any. Per infectious disease recommendation while the patient is currently being treated with cefazolin and Flagyl, the patient will be able to finish therapy with oral antibiotics. 08/29/24 - Patient seen at bedside today. Patient's mentation continues to improve without any acute complaints at this moment. Per infectious disease recommendation, patient to continue cefazolin and Flagyl while inpatient and then transition to oral Keflex and Flagyl upon discharge. Per nephrology, patient to continue on IV Bumex with continued monitoring of her electrolytes. Physical therapy saw and evaluated the patient yesterday (08/28) and stated that they will continue to see the patient once daily while in the hospital. Will continue on IV diuretics, as patient still has some edema, while improving, still present. New labs -sodium 131, potassium 4.0, BUN 27, creatinine 0.85 08/30/2024: Patient seen at bedside. No significant overnight events. Patient reports she is feeling well this morning. Cellulitis continues to regress from initial marked line. 08/31/24 - Patient seen at bedside. No significant overnight events. Patient remains confused, with fluctuating intervals of confusion and being fully alert and oriented. Patient reports she was feeling well this morning. Cellulitis continues to regress and show improvements. Entresto to be held, per nephrology's recommendation. Patient's BUN increased to 28.9 as compared to 24.9 yesterday (08/30) and creatinine increased to 1.4 as compared to 1.1 yesterday (08/30). Patient will be monitored over the next couple of days for change in kidney function. Review of systems: ROS reviewed. Pertinent positives and negatives discussed above, a complete review of systems was performed and all the other systems were negative. Physical examination: Vital signs are reviewed. General: No acute distress. Alert. Fluctuating intervals of being oriented x 3 and other times being oriented x 1. Morbidly obese. HEENT: Head exam is unremarkable. Lateral third of eyebrows thinning. EOMI bilaterally. ACs patent. Nares patent. Lungs: Bilateral breath sounds present; no rhonchi, wheezes, or rales. Heart: Rate and rhythm are regular. S1-S2 present. No murmur/rub/gallops. Abdomen: Soft, nontender, nondistended. Bowel sounds present. Extremities: Right BKA with improving erythema and some edema. Left TMA with ulcer on bottom now covered with gauze and LLE cellulitis which has resolved however some edema still present. Psych: Normal affect and mood. Cooperative. Assessment/Plan: Sepsis, resolved Septic shock, resolved Left lower extremity cellulitis Continue IV cefazolin and Flagyl Continue IV fluids Monitor CBC Monitor CMP Monitor vitals Infectious disease following Chest pain Trend troponin. Troponin times two 0.051, 0.044, respectively Chest x-ray yesterday negative Fluctuating encephalopathy of unknown origin Urinalysis negative Continue to monitor for increased confusion, if confusion increases order ABG Acute toxic metabolic encephalopathy secondary to medications Judicious use of pain medication No narcotics currently on board Acute transaminitis, improved Hepatic encephalopathy Avoid hepatotoxic agents Monitor LFTs Acute kidney injury, improved Metabolic acidosis, improved Hyperkalemia due to YOLA and acidosis, improved Hyponatremia secondary to YOLA, improved Monitor CPK while on antibiotics Strict I's and O's Daily weights Monitor renal function Continue IV fluids Avoid nephrotoxic agents Nephrology following Right lower extremity deep vein thrombosis Continue Eliquis Surgery consultedno surgical intervention at this time Heme/onc consulted-restarted Eliquis Acute hypoxemic respiratory failure Continue oxygen supplementation Aggressive bronchopulmonary hygiene Continue breathing treatments Critical care following Left foot ulcer Absorptive silver, saline moist gauze, dry gauze, rolled gauze and secured with paper tape change Tuesday, Tuesday, Tuesday per wound care Hypothyroidism Continue levothyroxine 50 mcg daily Diabetes mellitus type 2 Monitor glucose Insulin sliding scale DVT prophylaxis: Eliquis Chronic conditions: Recurrent DVTs, systolic CHF, chronic kidney disease stage IIIb, diabetes mellitus type 2, seizures, history of AICD placement, history of cardiac catheterizations Objective - Vital Signs Vital signs: Vital Signs Temp 97.8 F 08/31/24 02:00 Pulse 100 08/31/24 02:00 Resp 12 08/31/24 02:00 BP 102/69 08/30/24 19:44 Pulse Ox 98 08/31/24 02:00 FiO2 100 08/20/24 18:00 Intake & Output 08/30/24 08/31/24 08/31/24 18:59 06:59 18:59 Intake Total 477 290 Output Total 400 Balance 77 290 Weight 153 kg Intake: Intake, IV Titration 50 Amount ceFAZolin 2 gm In Sodium 50 Chloride 0.9% 50 ml @ 100 mls/hr IVPB Q8H [facility] Rx#: [id number] Oral 477 240 Output: Urine 400 Other: Voiding Method External Catheter External Catheter # Voids 3 ABP, PAP, CO, CI - Last Documented Arterial Blood Pressure 111/62 - Labs CBC & Chem 7: 08/26/24 07:16 08/31/24 05:04 Labs: Abnormal Lab Results - Last 24 Hours (Table) 08/30/24 08/30/24 08/30/24 Range/Units 06:06 11:44 17:07 Sodium 133 L (135-145) mmol/L BUN/Creatinine Ratio 22.64 H (12.00-20.00) Ratio Glucose 118 H (70-110) mg/dL POC Glucose (mg/dL) 133 H 120 H (70-110) mg/dL Calcium 8.6 L (8.7-10.3) mg/dL 08/30/24 08/31/24 Range/Units 19:59 07:03 Sodium (135-145) mmol/L BUN/Creatinine Ratio (12.00-20.00) Ratio Glucose (70-110) mg/dL POC Glucose (mg/dL) 170 H 125 H (70-110) mg/dL Calcium (8.7-10.3) mg/dL
--- NOTE | 2024-08-31 14:59 | P.PN ---
Subjective Progress Note Date: 08/31/24 Principal diagnosis: Reason for follow-up is left diabetic foot ulcer and cellulitis Patient is a 48-year female with multiple comorbidities including diabetes mellitus the patient did have a right diabetic foot infection requiring right below the amputation and a chronic nonhealing wound to the left foot to be getting to the hospital with cellulitis to the left lower extremity and wound infection. On today's evaluation that is 08/31/2024, patient has been afebrile, patient is breathing comfortably and is currently on room air, patient denies having any significant cough no chest pain, patient denies nausea vomiting or diarrhea and no abdominal pain, pain to the lower extremity has decreased in intensity. Patient did have creatinine 1.4 Objective - Vital Signs Vital signs: Vital Signs Temp 97.4 F L 08/31/24 13:13 Pulse 101 H 08/31/24 13:13 Resp 18 08/31/24 13:13 BP 115/70 08/31/24 13:13 Pulse Ox 98 08/31/24 13:13 FiO2 100 08/20/24 18:00 Intake & Output 08/30/24 08/31/24 08/31/24 18:59 06:59 18:59 Intake Total 477 290 477 Output Total 400 Balance 77 290 477 Weight 153 kg 153 kg Intake: Intake, IV Titration 50 Amount ceFAZolin 2 gm In Sodium 50 Chloride 0.9% 50 ml @ 100 mls/hr IVPB Q8H [facility] Rx#: [id number] Oral 477 240 477 Output: Urine 400 Other: Voiding Method External Catheter External Catheter External Catheter # Voids 3 ABP, PAP, CO, CI - Last Documented Arterial Blood Pressure 111/62 - Exam GENERAL DESCRIPTION: Middle-age female lying in bed in no distress RESPIRATORY SYSTEM: Unlabored breathing , decreased breath sounds at bases HEART: S1 S2 regular rate and rhythm , ABDOMEN: Soft , no tenderness EXTREMITIES: Left leg did have some erythema which has decreased right leg BKA stump has slight more erythema today - Labs CBC & Chem 7: 08/26/24 07:16 08/31/24 05:04 Labs: Abnormal Lab Results - Last 24 Hours (Table) 08/30/24 08/30/24 08/31/24 Range/Units 17:07 19:59 05:04 Sodium 134 L (135-145) mmol/L BUN 28.9 H (9.0-27.0) mg/dL Est GFR (CKD-EPI) 46 L (>=60) BUN/Creatinine Ratio 20.64 H (12.00-20.00) Ratio Glucose 125 H (70-110) mg/dL POC Glucose (mg/dL) 120 H 170 H (70-110) mg/dL Calcium 8.6 L (8.7-10.3) mg/dL 08/31/24 08/31/24 Range/Units 07:03 12:38 Sodium (135-145) mmol/L BUN (9.0-27.0) mg/dL Est GFR (CKD-EPI) (>=60) BUN/Creatinine Ratio (12.00-20.00) Ratio Glucose (70-110) mg/dL POC Glucose (mg/dL) 125 H 140 H (70-110) mg/dL Calcium (8.7-10.3) mg/dL Assessment and Plan (1) Cellulitis of left foot Current Visit: Yes Status: Acute Code(s): L03.116 - CELLULITIS OF LEFT LOWER LIMB SNOMED Code(s): 99432697797766962 (2) Allergy to multiple antibiotics Current Visit: No Status: Acute Code(s): Z88.1 - ALLERGY STATUS TO OTHER ANTIBIOTIC AGENTS SNOMED Code(s): 030444638 (3) Diabetic ulcer of left foot Current Visit: No Status: Acute Code(s): E11.621 - TYPE 2 DIABETES MELLITUS WITH FOOT ULCER; L97.529 - NON-PRESSURE CHRONIC ULCER OTH PRT LEFT FOOT W UNSP SEVERITY SNOMED Code(s): 217949148 Plan: 1patient with a chronic nonhealing wound to the left foot plantar aspect now with evidence of left lower extremity cellulitis likely being treated for this episode of cellulitis and will need to cover for the gram-positive as well as gram-negative pathogen. 2patient with multiple antibiotic ALLERGIES that would limit the number of antibiotic safe to use 3local wound culture currently growing MSSA and Prevotella 4-patient remains to be afebrile did have improvement to the left lower extremity cellulitis right BKA stump is slightly more swollen red today we will monitor closely continue with cefazolin and Flagyl Dictation was produced using [employer] software. please excuse any grammatical, word or spelling errors. Time with Patient: Less than 30
--- NOTE | 2024-08-31 16:23 | P.PN ---
Subjective patient is seen for follow-up for acute kidney injury. Maintained on IV Bumex for volume overload. No complaints of shortness of breath. Serum creatinine increased to 1.4 today. Blood pressure has been on the lower side. Objective - Vital Signs Vital signs: Vital Signs Temp 97.4 F L 08/31/24 13:13 Pulse 101 H 08/31/24 13:13 Resp 18 08/31/24 13:13 BP 115/70 08/31/24 13:13 Pulse Ox 98 08/31/24 13:13 FiO2 100 08/20/24 18:00 Intake & Output 08/30/24 08/31/24 08/31/24 18:59 06:59 18:59 Intake Total 477 290 477 Output Total 400 Balance 77 290 477 Weight 153 kg 153 kg Intake: Intake, IV Titration 50 Amount ceFAZolin 2 gm In Sodium 50 Chloride 0.9% 50 ml @ 100 mls/hr IVPB Q8H [facility] Rx#: [id number] Oral 477 240 477 Output: Urine 400 Other: Voiding Method External Catheter External Catheter External Catheter # Voids 3 ABP, PAP, CO, CI - Last Documented Arterial Blood Pressure 111/62 - Exam patient is awake, confused, no acute distress Examination of the heart S1 and S2 Examination the lungs decreased breath sounds at the bases Abdomen is soft morbidly obese Examination of lower extremities shows right BKA with redness noted. Redness noted in the left lower leg as well. - Labs CBC & Chem 7: 08/26/24 07:16 08/31/24 05:04 Labs: Abnormal Lab Results - Last 24 Hours (Table) 08/30/24 08/30/24 08/31/24 Range/Units 17:07 19:59 05:04 Sodium 134 L (135-145) mmol/L BUN 28.9 H (9.0-27.0) mg/dL Est GFR (CKD-EPI) 46 L (>=60) BUN/Creatinine Ratio 20.64 H (12.00-20.00) Ratio Glucose 125 H (70-110) mg/dL POC Glucose (mg/dL) 120 H 170 H (70-110) mg/dL Calcium 8.6 L (8.7-10.3) mg/dL 08/31/24 08/31/24 Range/Units 07:03 12:38 Sodium (135-145) mmol/L BUN (9.0-27.0) mg/dL Est GFR (CKD-EPI) (>=60) BUN/Creatinine Ratio (12.00-20.00) Ratio Glucose (70-110) mg/dL POC Glucose (mg/dL) 125 H 140 H (70-110) mg/dL Calcium (8.7-10.3) mg/dL Assessment and Plan Assessment: 1. Acute kidney injury secondary to ATN secondary to septic shock. Baseline creatinine near 1. Renal function improving. Creatinine increased to 1.4. Patient is maintained on Entresto. Blood pressure is on the lower side. No. Nonoliguric. No hydronephrosis noted on kidney ultrasound. Left kidney not visualized due to patient body habitus. 2. Hyperkalemia due to YOLA and acidosis. Improved. 3. AGMA from lactic acidosis with non-anion gap metabolic acidosis from IVF with respiratory acidosis. Status post bicarb drip. Improved. 4. CKD stage IIIa 2/2 cardiorenal syndrome. Cr baseline 1-1.1 5. CHFrEF (15-20%). 6. Hypervolemic hyponatremia. Stable. 7. LLE cellulitis with DVT on antibiotics and anticoagulation. 8. Type 2 Diabetes Plan: Hold Entresto Decrease metoprolol. If heart rate is further elevated metoprolol will be increased back to 25 mg twice daily Continue with IV Bumex Monitor electrolytes Repeat labs in a.m.
[2024-08-31 17:15] LABS: Glucose,Whole Blood 145 mg/dL (70-110)
[2024-08-31 20:16] LABS: Glucose,Whole Blood 165 mg/dL (70-110)
[2024-09-01 07:07] LABS: Glucose,Whole Blood 114 mg/dL (70-110)
[2024-09-01 09:04] LABS: Anisocytosis Slight; Basophils % (A) 0 %; Eosinophils # (A) 0.1 k/uL (0-0.7); Eosinophils % (A) 2 %; Hypochromasia Marked; Lymphocytes # (A) 1.5 k/uL (1.0-4.8); Lymphocytes % (A) 22 %; MCH 23.2 pg (25.0-35.0); MCHC 29.1 g/dL (31.0-37.0); MCV 79.9 fL (80.0-100.0); Mean Platelet Volume 7.4; Microcytosis Slight; Monocytes # (A) 0.6 k/uL (0-1.0); Monocytes % (A) 8 %; Neutrophils # (A) 4.2 k/uL (1.3-7.7); Neutrophils % (A) 64 %; Platelet Count 235 k/uL (150-450); Poikilocytosis Slight; RBC 4.75 m/uL (3.80-5.40); RDW 18.9 % (11.5-15.5); WBC 6.6 k/uL (3.8-10.6)
[2024-09-01 09:13] LABS: African American GFR (CKD) 73 (>60 ml/min/1.73 sqM); Anion Gap 9 mmol/L; Blood Urea Nitrogen 35 mg/dL (7-17); Calcium 8.8 mg/dL (8.4-10.2); Carbon Dioxide 23 mmol/L (22-30); Chloride 100 mmol/L (98-107); Glucose 101 mg/dL (74-99); Magnesium 1.6 mg/dL (1.6-2.3); Non-African American GFR(CKD) 64 (>60 ml/min/1.73 sqM); Phosphorus 3.6 mg/dL (2.5-4.5); Potassium 4.3 mmol/L (3.5-5.1); Sodium 132 mmol/L (137-145)
[2024-09-01] MEDS: BUMETANIDE 0.25 MG/ML 4 ML VIAL IV SCH (09:35)
--- NOTE | 2024-09-01 11:39 | P.PN ---
Subjective Progress Note Date: 09/01/24 The patient is seen today August 27, 2024 in follow-up on the regular medical floor. She is currently awake and alert in no acute distress. She does remain confused at times. She is currently maintaining good O2 saturations in the 90s on 2 L/min per nasal cannula. She remains on antibiotics in the form of cefazolin and Flagyl. She was positive for MSSA in the wound of her left foot. Chest x-ray reveals no evidence of pneumothorax. There is cardiomegaly. There is improved aeration of left perihilar infiltrate or atelectasis. Sodium 134. Potassium 4.2. Bicarb 23. BUN 27. Creatinine 1.0. Glucose 142. Continued on DuoNeb inhalations. Anticoagulated with Eliquis. Protonix for GI prophylaxis. The patient is seen today August 28, 2024 in follow-up on the regular medical floor. She is currently sitting up in bed having breakfast. Awake and alert in no acute distress. Denies any worsening shortness of breath, cough or congestion. Maintaining O2 saturations in the mid 90s on 2 L/min per nasal cannula. She has been afebrile. Hemodynamically stable. Denies any worsening lower extremity pain. Left foot cultures were positive for MSSA and Prevotella species. She remains on cefazolin and Flagyl. She remains on bronchodilators. Continued on IV diuretics. Anticoagulated with Eliquis. The patient is seen today August 29, 2024 in follow-up on the regular medical floor. She is awake and alert in no acute distress. She is maintaining good O2 saturations in the 90s on 2 L/min per nasal cannula. She denies any worsening shortness of breath, cough or congestion. Left foot cultures were positive for MSSA and Prevotolla species. Sodium 131. Potassium 4.0. Bicarb 27. BUN 27. Creatinine 0.85. Glucose 112. She remains on cefazolin and Flagyl. Anticoagulated with Eliquis. Remains on IV diuretics. The patient is seen today August 30, 2024 in follow-up on the regular medical floor. She is currently sitting up in bed having breakfast. Awake and alert in no acute distress. Denies any worsening shortness of breath, cough or congestion. She is maintaining O2 saturations in the 90s on 2 L/min per nasal cannula. She remains on cefazolin and Flagyl per ID service. She remains on IV Bumex. Sodium 133. Potassium 4.7. Bicarb 26. BUN 25. Creatinine 1.1. Glucose 118. The patient is seen today August 31, 2024 in follow-up on the regular medical floor. She is awake and alert in no acute distress. Sitting up in bed having breakfast. Denies any shortness of breath, cough or congestion. She is maintaining good O2 saturation in the 90s on 2 L/min per nasal cannula. She has been afebrile. Hemodynamically stable. Sodium 134. Potassium 4.5. Bicarb 26. BUN 29. Creatinine 1.4. Glucose 125. She remains on cefazolin and Flagyl. Continued on bronchodilators. Anticoagulated with Eliquis. The patient is seen today resting comfortably in bed. Awake and alert in no acute distress. Maintaining good O2 saturations in the 90s on 2 L/min per nasal cannula. She has been afebrile. Hemodynamically stable. White count 6.6. Hemoglobin 11.0. Platelets 235. Sodium 132. Potassium 4.3. Bicarb 23. BUN 35. Creatinine 1.03. Glucose 101. She remains on cefazolin and Flagyl. Continued on bronchodilators. Anticoagulated with Eliquis. She remains on IV Bumex. Currently in a negative balance. Objective - Vital Signs Vital signs: Vital Signs Temp 98.5 F 09/01/24 09:42 Pulse 104 H 09/01/24 11:15 Resp 18 09/01/24 09:42 BP 108/71 09/01/24 09:42 Pulse Ox 98 09/01/24 07:33 FiO2 100 08/20/24 18:00 Intake & Output 08/31/24 09/01/24 09/01/24 18:59 06:59 18:59 Intake Total 477 Output Total 500 300 Balance - Weight 153 kg 157 kg Intake: Oral 477 Output: Urine 500 300 Other: Voiding Method External Catheter External Catheter ABP, PAP, CO, CI - Last Documented Arterial Blood Pressure 111/62 - Exam An alert 48-year-old female, resting in bed, no acute distress, on 2 L of O2 by nasal cannula HEENT examination is grossly unremarkable. Mucous membranes are moist. No oral lesions. Neck supple. Full range of motion. No adenopathy thyromegaly or neck vein distention. Cardiovascular examination reveals regular rhythm rate. S1-S2 normal. No S3 or S4. No discernible murmur noted. Sounds are distant. Lungs reveal mostly clear breath sounds. Minimal rhonchi. No wheezes or crackles. Abdomen soft, and obese. Bowel sounds are noted. No mass. Extremities revealed a right below the knee amputation, and transmetatarsal amputation on the left. The patient has a deep wound along the plantar aspect of the transmetatarsal amputation left lower extremity. Dressing in place. Right lower extremity has a below-knee amputation the extremity is less swollen. Cellulitis is improving. Skin is without rash or lesion. Wound in the left foot at the site of a previous transmetatarsal amputation was noted. No active drainage. Bone is exposed. Neurologic examination difficult to assess. No focal neurological deficit. - Labs CBC & Chem 7: 09/01/24 08:38 09/01/24 08:38 Labs: Abnormal Lab Results - Last 24 Hours (Table) 08/31/24 08/31/24 08/31/24 Range/Units 12:38 17:13 20:14 Hgb (11.4-16.0) gm/dL MCV (80.0-100.0) fL MCH (25.0-35.0) pg MCHC (31.0-37.0) g/dL RDW (11.5-15.5) % Sodium (137-145) mmol/L BUN (7-17) mg/dL Glucose (74-99) mg/dL POC Glucose (mg/dL) 140 H 145 H 165 H (70-110) mg/dL 09/01/24 09/01/24 09/01/24 Range/Units 07:05 08:38 08:38 Hgb 11.0 L (11.4-16.0) gm/dL MCV 79.9 L (80.0-100.0) fL MCH 23.2 L (25.0-35.0) pg MCHC 29.1 L (31.0-37.0) g/dL RDW 18.9 H (11.5-15.5) % Sodium 132 L (137-145) mmol/L BUN 35 H (7-17) mg/dL Glucose 101 H (74-99) mg/dL POC Glucose (mg/dL) 114 H (70-110) mg/dL Assessment and Plan Assessment: Septic shock, likely secondary to soft tissue infection/cellulitis in addition to a wound in the left foot at the site of a transmetatarsal amputation. The patient has a chronic stage IV ulcer that has no active drainage at this point in time. Cultures were noted and it is positive for Staph aureus and Prevotella. Currently on IV cefazolin and Flagyl Acute lactic acidosis, improved Severe anion gap metabolic acidosis, improved Acute hyperkalemia, improved , Acute hypoglycemia, likely secondary to above, improved Altered mentation secondary to above, improved Cellulitis of the lower extremities bilaterally, currently on a combination of IV cefazolin and Flagyl Acute on chronic kidney injury with secondary oliguria, consider underlying ATN, renal function improved Right lower extremity DVT, on Eliquis Severe cardiomyopathy with an ejection fraction of 10 to 15% Severe pulmonary hypertension, likely group 2/3 pulmonary hypertension with severe dilatation of the RV Severe peripheral vascular disease, prior right below the knee amputation, and left transmetatarsal amputation. Vascular surgery is on the case History of COPD/asthma Diabetes mellitus, with ongoing episodes of hypoglycemia History of CVA. Coronary artery disease with prior history of myocardial infarction History of hypertension History of DVT Obesity Multiple drug-resistant infections History of pacemaker implantation/defibrillator Plan: The patient was seen and evaluated Labs and medications reviewed She remains on antibiotics per ID service She is continued on bronchodilators Anticoagulated with Eliquis Case management working on discharge placement This patient was seen independently by the pulmonary nurse practitioner addressing pulmonary issues I have personally seen and examined the patient, performed the documentation and the assessment and plan as written. Number of minutes spent on the visit: 24.
[2024-09-01 12:26] LABS: Glucose,Whole Blood 146 mg/dL (70-110)
--- NOTE | 2024-09-01 12:35 | P.PN ---
Subjective patient is seen for follow-up for acute kidney injury. Maintained on IV Bumex for volume overload. No complaints of shortness of breath. Serum creatinine increased to 1.4 today. Entresto was held and creatinine is down to 1.0 today.. Blood pressure has been on the lower side. Objective - Vital Signs Vital signs: Vital Signs Temp 98.5 F 09/01/24 09:42 Pulse 104 H 09/01/24 11:15 Resp 18 09/01/24 09:42 BP 108/71 09/01/24 09:42 Pulse Ox 98 09/01/24 07:33 FiO2 100 08/20/24 18:00 Intake & Output 08/31/24 09/01/24 09/01/24 18:59 06:59 18:59 Intake Total 477 Output Total 500 300 Balance -23 -300 Weight 153 kg 157 kg Intake: Oral 477 Output: Urine 500 300 Other: Voiding Method External Catheter External Catheter ABP, PAP, CO, CI - Last Documented Arterial Blood Pressure 111/62 - Exam patient is awake, confused, no acute distress Examination of the heart S1 and S2 Examination the lungs decreased breath sounds at the bases Abdomen is soft morbidly obese Examination of lower extremities shows right BKA with redness noted and edema. Redness noted in the left lower leg as well. - Labs CBC & Chem 7: 09/01/24 08:38 09/01/24 08:38 Labs: Abnormal Lab Results - Last 24 Hours (Table) 08/31/24 08/31/24 08/31/24 Range/Units 12:38 17:13 20:14 Hgb (11.4-16.0) gm/dL MCV (80.0-100.0) fL MCH (25.0-35.0) pg MCHC (31.0-37.0) g/dL RDW (11.5-15.5) % Sodium (137-145) mmol/L BUN (7-17) mg/dL Glucose (74-99) mg/dL POC Glucose (mg/dL) 140 H 145 H 165 H (70-110) mg/dL 09/01/24 09/01/24 09/01/24 Range/Units 07:05 08:38 08:38 Hgb 11.0 L (11.4-16.0) gm/dL MCV 79.9 L (80.0-100.0) fL MCH 23.2 L (25.0-35.0) pg MCHC 29.1 L (31.0-37.0) g/dL RDW 18.9 H (11.5-15.5) % Sodium 132 L (137-145) mmol/L BUN 35 H (7-17) mg/dL Glucose 101 H (74-99) mg/dL POC Glucose (mg/dL) 114 H (70-110) mg/dL 09/01/24 Range/Units 12:23 Hgb (11.4-16.0) gm/dL MCV (80.0-100.0) fL MCH (25.0-35.0) pg MCHC (31.0-37.0) g/dL RDW (11.5-15.5) % Sodium (137-145) mmol/L BUN (7-17) mg/dL Glucose (74-99) mg/dL POC Glucose (mg/dL) 146 H (70-110) mg/dL Assessment and Plan Assessment: 1. Acute kidney injury secondary to ATN secondary to septic shock. Baseline creatinine near 1. Renal function improving. Creatinine increased to 1.4. Patient is maintained on Entresto. Blood pressure is on the lower side. No. Nonoliguric. No hydronephrosis noted on kidney ultrasound. Left kidney not visualized due to patient body habitus. 2. Hyperkalemia due to YOLA and acidosis. Improved. 3. AGMA from lactic acidosis with non-anion gap metabolic acidosis from IVF with respiratory acidosis. Status post bicarb drip. Improved. 4. CKD stage IIIa 2/2 cardiorenal syndrome. Cr baseline 1-1.1 5. CHFrEF (15-20%). 6. Hypervolemic hyponatremia. Stable. 7. LLE cellulitis with DVT on antibiotics and anticoagulation. 8. Type 2 Diabetes 9. Volume overload Plan: can resume entresto in 12-24 hours Decreased metoprolol. If heart rate is further elevated metoprolol will be increased back to 25 mg twice daily Continue with IV Bumex Monitor electrolytes Repeat labs in a.m.
--- NOTE | 2024-09-01 13:13 | P.PN ---
Subjective Progress Note Date: 09/01/24 Patient is a 48-year-old female with a past medical history of right lower extremity DVT maintained on Eliquis, right BKA, and left TMA who presented to the emergency department with severe right lower extremity pain and recent falls from her wheelchair during transfers. She is a poor historian at the time of the interview. She is very lethargic and falls asleep while answering questionsAO x 2. She rarely opens her eyes without stimulus. During the interview she is noted to have increased respiratory effort, respiratory rate of 10-12, and small sluggish pupils. Narcan was administered and patient became more alert and respiratory rate improved to 16, AOx3, now able to complete full sentences but remains with eyes closed unless prompted to open. Now she states that she has been having bilateral lower extremity pain worse on the right with erythema and swelling of the right lower extremity. She reports compliance with her medications. She also reports some abdominal pain with a few episodes of vomitingappears nonbloody. She endorses pain in the right lower extremity. She denies chest pain, shortness of breath, current abdominal pain, nausea, vomiting. Femur x-ray unremarkable. Bilateral lower extremity venous Doppler showed positive right lower extremity DVT femoral vein to popliteal vein. EKG shows pacing by AICD. WBC 6.1, hemoglobin 10.1, platelets 179, PT 13.3, INR 1.3, sodium 136, potassium 4.6, CO2 20, creatinine 1.73, GFR 34, lactic acid 2.2, phosphorus 4.6, CRP 2.9, TSH 27.6. Afebrile, normotensive, tachycardic in the low 100s saturating well on room air. 08/18. Patient seen sleeping in bed. Still with eyes closed while conversing but will open them when prompted. States she's had no energy for days. Chest x-ray 08/17: Cardiomegaly and mild pulmonary vascular congestion. Brain CT 08/17: No acute intracranial process, old lacunar infarct left thalamus. Pulmonary perfusion scan 08/18: No mismatch defect is evident, intermediate probability for acute pulmonary embolism. WBCs 10.8, hemoglobin 10.4, sodium 134, potassium 5.5, creatinine 2.78, hemoglobin A1c 6.5, N-terminal proBNP 21.9, procalcitonin 1.22. 08/19. Patient seen and examined. Ultrasound abdomen done showed no evidence for acute abdominal process, hepatic steatosis. Ultrasound of kidneys done showed nonobstructing right renal calculus. Patient stated she feels better, still has pain in the right BKA stump. 08/20. Patient seen laying in bed. Preliminary wound culture shows presumptive Staph aureus. Patient appears to be struggling to find her words/Labs: WBCs 16.3, hemoglobin 11.8, potassium 5.6, creatinine 1.99, total bilirubin 2.4. ABG: pH 7.26, pCO2 31, pO2 84, HCO3 14. Patient with worsening prognosis, transfer to ICU. 08/21. Patient seen and examined. Blood work done this morning showed WBC 11.7, hemoglobin 10.5, platelet count 252, sodium 126, potassium 4.7, BUN 53, creatinine 2.29 bilirubin 2.8, AST 2378, ALT 1144. Patient is lethargic, opening eyes, answers question appropriately. 08/22. Patient seen and examined. Labs: WBCs 9.0, hemoglobin 10.2, sodium 132, potassium 4.1, CO2 25, BUN 60, creatinine 2.00. She remains lethargic. 08/23. Patient seen and examined. Labs: WBCs 10.4, hemoglobin 10.7, sodium 131, potassium 3.7, BUN 54, creatinine 1.58, AST 978, ALT 490. 08/24. Patient seen at bedside. Lethargy improved. Patient states that she is doing well but endorses continued pain in her legs. Labs: sodium 128, potassium 5.3, BUN 50, creatinine 1.24, AST 703, ALT 350. 08/25. Patient examined at bedside. She was transferred to [facility] from the ICU yesterday. She states she is feeling much better. Labs pending. 08/26. Patient is evaluated today on the medical floor. Patient with altered mentation today currently alert x 1. Negative brain CT. Ammonia level less than 9. She is having some shortness of breath. Renal function and LFTs are improving. 08/27. Patient seen at bedside. She continues to have altered mentation and endorses chest pain when asked. Chest x-ray yesterday negative. 08/28/24 - Patient seen at bedside today. At bedside today patient's mentation is improved, with resolution of her confusion. Patient is aware of who she is, her birthday, and where she is currently. And her pleasant demeanor has returned. Patient has no acute complaints, stating that her chest pain from yesterday has resolved and she no longer has any. Per infectious disease recommendation while the patient is currently being treated with cefazolin and Flagyl, the patient will be able to finish therapy with oral antibiotics. 08/29/24 - Patient seen at bedside today. Patient's mentation continues to improve without any acute complaints at this moment. Per infectious disease recommendation, patient to continue cefazolin and Flagyl while inpatient and then transition to oral Keflex and Flagyl upon discharge. Per nephrology, patient to continue on IV Bumex with continued monitoring of her electrolytes. Physical therapy saw and evaluated the patient yesterday (08/28) and stated that they will continue to see the patient once daily while in the hospital. Will continue on IV diuretics, as patient still has some edema, while improving, still present. New labs -sodium 131, potassium 4.0, BUN 27, creatinine 0.85 08/30/2024: Patient seen at bedside. No significant overnight events. Patient reports she is feeling well this morning. Cellulitis continues to regress from initial marked line. 08/31/24 - Patient seen at bedside. No significant overnight events. Patient remains confused, with fluctuating intervals of confusion and being fully alert and oriented. Patient reports she was feeling well this morning. Cellulitis continues to regress and show improvements. Entresto to be held, per nephrology's recommendation. Patient's BUN increased to 28.9 as compared to 24.9 yesterday (08/30) and creatinine increased to 1.4 as compared to 1.1 yesterday (08/30). Patient will be monitored over the next couple of days for change in kidney function. 09/01/24 - Patient seen at bedside today. No significant overnight events. Patient remains confused, with fluctuating intervals of confusion and being fully alert and oriented. Per nephrology's recommendation Entresto was held, continue on IV Bumex, and decrease metoprolol (if heart rate is further elevated metoprolol will be increased back to 25 twice daily). Patient's labs (CBC, BMP) are currently pending at the time of dictation, monitoring BUN and creatinine as they had began to increase yesterday, additionally, magnesium phosphorus labs are currently pending. She is currently in no distress sitting comfortably in bed resting. Patient continues to saturate in the high 90%'s on 2 L nasal cannula with respiratory to 16, blood pressure 100/64 with a heart rate of 95. Patient continues to receive IV cefazolin. Her BUN today is 35, increased from 28.9 yesterday, and her creatinine is 1.03 which is down from 1.4 yesterday. Add itionally, her magnesium and phosphorous were both within normal limits. She does remain confused, as she continues to know who she is, her birthday and that she is in the hospital (although stating she is in the "ER" as opposed to where she is presently), however she does not know the year and provides incoherent answers without any particular reasoning. Review of systems: ROS reviewed. Pertinent positives and negatives discussed above, a complete review of systems was performed and all the other systems were negative. Physical examination: Vital signs are reviewed. General: No acute distress. Alert. Fluctuating intervals of being oriented x 3 and other times being oriented x 1. Morbidly obese. HEENT: Head exam is unremarkable. Lateral third of eyebrows thinning. EOMI bilaterally. ACs patent. Nares patent. Lungs: Bilateral breath sounds present; no rhonchi, wheezes, or rales. Heart: Rate and rhythm are regular. S1-S2 present. No murmur/rub/gallops. Abdomen: Soft, nontender, nondistended. Bowel sounds present. Extremities: Right BKA with improving erythema and some edema. Left TMA with ulcer on bottom now covered with gauze and LLE cellulitis which has resolved ho wever some edema still present. Psych: Normal affect and mood. Cooperative. Assessment/Plan: Sepsis, resolved Septic shock, resolved Left lower extremity cellulitis Continue IV cefazolin and Flagyl Continue IV fluids Monitor CBC Monitor CMP Monitor vitals Infectious disease following Chest pain Trend troponin. Troponin times two 0.051, 0.044, respectively Chest x-ray yesterday negative Fluctuating encephalopathy of unknown origin Urinalysis negative Continue to monitor for increased confusion, if confusion increases order ABG Acute toxic metabolic encephalopathy secondary to medications Judicious use of pain medication No narcotics currently on board Acute transaminitis, improved Hepatic encephalopathy Avoid hepatotoxic agents Monitor LFTs Acute kidney injury, improved Metabolic acidosis, improved Hyperkalemia due to YOLA and acidosis, improved Hyponatremia secondary to YOLA, improved Monitor CPK while on antibiotics Strict I's and O's Daily weights Monitor renal function Continue IV fluids Avoid nephrotoxic agents Nephrology following Right lower extremity deep vein thrombosis Continue Eliquis Surgery consultedno surgical intervention at this time Heme/onc consulted-restarted Eliquis Acute hypoxemic respiratory failure Continue oxygen supplementation Aggressive bronchopulmonary hygiene Continue breathing treatments Critical care following Left foot ulcer Absorptive silver, saline moist gauze, dry gauze, rolled gauze and secured with paper tape change Tuesday, Tuesday, Tuesday per wound care Hypothyroidism Continue levothyroxine 50 mcg daily Diabetes mellitus type 2 Monitor glucose Insulin sliding scale DVT prophylaxis: Eliquis GI prophylaxis: Protonix 40 mg daily Chronic conditions: Recurrent DVTs, systolic CHF, chronic kidney disease stage IIIb, diabetes mellitus type 2, seizures, history of AICD placement, history of cardiac catheterizations Objective - Vital Signs Vital signs: Vital Signs Temp 97.7 F 09/01/24 07:33 Pulse 95 09/01/24 07:33 Resp 16 09/01/24 07:33 BP 100/64 09/01/24 07:33 Pulse Ox 98 09/01/24 07:33 FiO2 100 08/20/24 18:00 Intake & Output 08/31/24 09/01/24 09/01/24 18:59 06:59 18:59 Intake Total 477 Output Total 500 300 Balance -23 -300 Weight 153 kg 157 kg Intake: Oral 477 Output: Urine 500 300 Other: Voiding Method External Catheter External Catheter ABP, PAP, CO, CI - Last Documented Arterial Blood Pressure 111/62 - Labs CBC & Chem 7: 09/01/24 08:38 09/01/24 08:38 Labs: Abnormal Lab Results - Last 24 Hours (Table) 08/31/24 08/31/24 08/31/24 Range/Units 05:04 12:38 17:13 Sodium 134 L (135-145) mmol/L BUN 28.9 H (9.0-27.0) mg/dL Est GFR (CKD-EPI) 46 L (>=60) BUN/Creatinine Ratio 20.64 H (12.00-20.00) Ratio Glucose 125 H (70-110) mg/dL POC Glucose (mg/dL) 140 H 145 H (70-110) mg/dL Calcium 8.6 L (8.7-10.3) mg/dL 08/31/24 09/01/24 Range/Units 20:14 07:05 Sodium (135-145) mmol/L BUN (9.0-27.0) mg/dL Est GFR (CKD-EPI) (>=60) BUN/Creatinine Ratio (12.00-20.00) Ratio Glucose (70-110) mg/dL POC Glucose (mg/dL) 165 H 114 H (70-110) mg/dL Calcium (8.7-10.3) mg/dL
--- NOTE | 2024-09-01 13:31 | P.PN ---
Subjective Progress Note Date: 09/01/24 Principal diagnosis: Reason for follow-up is left diabetic foot ulcer and cellulitis Patient is a 48-year female with multiple comorbidities including diabetes mellitus the patient did have a right diabetic foot infection requiring right below the amputation and a chronic nonhealing wound to the left foot to be getting to the hospital with cellulitis to the left lower extremity and wound infection. On today's evaluation that is 09/01/2024, Patient is afebrile this morning patient denies having any chest pain shortness of breath or cough, the patient is currently on 2 L nasal cannula oxygen patient denies any abdominal pain no diarrhea no nausea no vomiting, denies any worsening pain to lower extremity. Patient white count 6.6, creatinine 1.03 Objective - Vital Signs Vital signs: Vital Signs Temp 98.5 F 09/01/24 09:42 Pulse 104 H 09/01/24 11:15 Resp 18 09/01/24 09:42 BP 108/71 09/01/24 09:42 Pulse Ox 98 09/01/24 07:33 FiO2 100 08/20/24 18:00 Intake & Output 08/31/24 09/01/24 09/01/24 18:59 06:59 18:59 Intake Total 477 Output Total 500 300 Balance -23 -300 Weight 153 kg 157 kg Intake: Oral 477 Output: Urine 500 300 Other: Voiding Method External Catheter External Catheter ABP, PAP, CO, CI - Last Documented Arterial Blood Pressure 111/62 - Exam GENERAL DESCRIPTION: Middle-age female lying in bed in no distress RESPIRATORY SYSTEM: Unlabored breathing , decreased breath sounds at bases HEART: S1 S2 regular rate and rhythm , ABDOMEN: Soft , no tenderness EXTREMITIES: Left leg did have some erythema which has decreased right leg BKA stump has slight more erythema today - Labs CBC & Chem 7: 09/01/24 08:38 09/01/24 08:38 Labs: Abnormal Lab Results - Last 24 Hours (Table) 08/31/24 08/31/24 09/01/24 Range/Units 17:13 20:14 07:05 Hgb (11.4-16.0) gm/dL MCV (80.0-100.0) fL MCH (25.0-35.0) pg MCHC (31.0-37.0) g/dL RDW (11.5-15.5) % Sodium (137-145) mmol/L BUN (7-17) mg/dL Glucose (74-99) mg/dL POC Glucose (mg/dL) 145 H 165 H 114 H (70-110) mg/dL 09/01/24 09/01/24 09/01/24 Range/Units 08:38 08:38 12:23 Hgb 11.0 L (11.4-16.0) gm/dL MCV 79.9 L (80.0-100.0) fL MCH 23.2 L (25.0-35.0) pg MCHC 29.1 L (31.0-37.0) g/dL RDW 18.9 H (11.5-15.5) % Sodium 132 L (137-145) mmol/L BUN 35 H (7-17) mg/dL Glucose 101 H (74-99) mg/dL POC Glucose (mg/dL) 146 H (70-110) mg/dL Assessment and Plan (1) Cellulitis of left foot Current Visit: Yes Status: Acute Code(s): L03.116 - CELLULITIS OF LEFT LOWER LIMB SNOMED Code(s): 85924463137866080 (2) Allergy to multiple antibiotics Current Visit: No Status: Acute Code(s): Z88.1 - ALLERGY STATUS TO OTHER ANTIBIOTIC AGENTS SNOMED Code(s): 899639863 (3) Diabetic ulcer of left foot Current Visit: No Status: Acute Code(s): E11.621 - TYPE 2 DIABETES MELLITUS WITH FOOT ULCER; L97.529 - NON-PRESSURE CHRONIC ULCER OTH PRT LEFT FOOT W UNSP SEVERITY SNOMED Code(s): 518892889 Plan: 1patient with a chronic nonhealing wound to the left foot plantar aspect now with evidence of left lower extremity cellulitis likely being treated for this episode of cellulitis and will need to cover for the gram-positive as well as gram-negative pathogen. 2patient with multiple antibiotic ALLERGIES that would limit the number of antibiotic safe to use 3local wound culture currently growing MSSA and Prevotella 4-patient remains to be afebrile and white count right BKA stump is not as warm water today than yesterday will continue with cefazolin and Flagyl while inpatient Dictation was produced using [email or web address] dictation software. please excuse any grammatical, word or spelling errors. Time with Patient: Less than 30
[2024-09-01 17:07] LABS: Glucose,Whole Blood 163 mg/dL (70-110)
[2024-09-01 20:09] LABS: Glucose,Whole Blood 137 mg/dL (70-110)
[2024-09-02 07:23] LABS: Glucose,Whole Blood 122 mg/dL (70-110)
[2024-09-02 10:17] LABS: BUN/Creat Ratio 24.07 Ratio (12.00-20.00); Blood Urea Nitrogen 33.7 mg/dL (9.0-27.0); Calcium 8.6 mg/dL (8.7-10.3); Carbon Dioxide 25.6 mmol/L (21.6-31.8); Chloride 97 mmol/L (96-109); Glucose 125 mg/dL (70-110); Potassium 4.7 mmol/L (3.5-5.5); Sodium 134 mmol/L (135-145)
--- NOTE | 2024-09-02 11:41 | P.PN ---
Subjective patient is seen for follow-up for acute kidney injury. Patient is confused. Maintained on IV Bumex for volume overload. No complaints of shortness of breath. Serum creatinine increased back to 1.4. Entresto was held and creatinine had decreased to 1.0 yesterday. Blood pressure has been on the lower side. Objective - Vital Signs Vital signs: Vital Signs Temp 98.5 F 09/02/24 07:53 Pulse 96 09/02/24 11:10 Resp 18 09/02/24 07:53 BP 104/73 09/02/24 07:53 Pulse Ox 98 09/02/24 07:53 FiO2 100 08/20/24 18:00 Intake & Output 09/01/24 09/02/24 09/02/24 18:59 06:59 18:59 Intake Total 720 240 Output Total 500 200 Balance 220 40 Intake: Oral 720 240 Output: Urine 500 200 Other: Voiding Method External Catheter # Bowel Movements 1 ABP, PAP, CO, CI - Last Documented Arterial Blood Pressure 111/62 - Exam patient is awake, confused, no acute distress Examination of the heart S1 and S2 Examination the lungs decreased breath sounds at the bases Abdomen is soft morbidly obese Examination of lower extremities shows right BKA with redness noted and edema. Redness noted in the left lower leg as well. - Labs CBC & Chem 7: 09/01/24 08:38 09/02/24 04:16 Labs: Abnormal Lab Results - Last 24 Hours (Table) 09/01/24 09/01/24 09/01/24 Range/Units 12:23 17:06 20:08 Sodium (135-145) mmol/L BUN (9.0-27.0) mg/dL Est GFR (CKD-EPI) (>=60) BUN/Creatinine Ratio (12.00-20.00) Ratio Glucose (70-110) mg/dL POC Glucose (mg/dL) 146 H 163 H 137 H (70-110) mg/dL Calcium (8.7-10.3) mg/dL 09/02/24 09/02/24 Range/Units 04:16 07:06 Sodium 134 L (135-145) mmol/L BUN 33.7 H (9.0-27.0) mg/dL Est GFR (CKD-EPI) 46 L (>=60) BUN/Creatinine Ratio 24.07 H (12.00-20.00) Ratio Glucose 125 H (70-110) mg/dL POC Glucose (mg/dL) 122 H (70-110) mg/dL Calcium 8.6 L (8.7-10.3) mg/dL Assessment and Plan Assessment: 1. Acute kidney injury secondary to ATN secondary to septic shock. Baseline creatinine near 1. Serum creatinine fluctuating between 1-1.4. Entresto has been held. Blood pressure is on the lower side. No. Nonoliguric. No hydronephrosis noted on kidney ultrasound. Left kidney not visualized due to patient body habitus. 2. Hyperkalemia due to YOLA and acidosis. Improved. 3. AGMA from lactic acidosis with non-anion gap metabolic acidosis from IVF with respiratory acidosis. Status post bicarb drip. Improved. 4. CKD stage IIIa 2/2 cardiorenal syndrome. Cr baseline 1-1.1 5. CHFrEF (15-20%). 6. Hypervolemic hyponatremia. Stable. 7. LLE cellulitis with DVT on antibiotics and anticoagulation. 8. Type 2 Diabetes 9. Volume overload Plan: Decreased metoprolol. If heart rate is further elevated metoprolol will be increased back to 25 mg twice daily Continue with IV Bumex Monitor electrolytes Repeat labs in a.m.
--- NOTE | 2024-09-02 12:11 | P.PN ---
Subjective Progress Note Date: 09/02/24 The patient is seen today August 27, 2024 in follow-up on the regular medical floor. She is currently awake and alert in no acute distress. She does remain confused at times. She is currently maintaining good O2 saturations in the 90s on 2 L/min per nasal cannula. She remains on antibiotics in the form of cefazolin and Flagyl. She was positive for MSSA in the wound of her left foot. Chest x-ray reveals no evidence of pneumothorax. There is cardiomegaly. There is improved aeration of left perihilar infiltrate or atelectasis. Sodium 134. Potassium 4.2. Bicarb 23. BUN 27. Creatinine 1.0. Glucose 142. Continued on DuoNeb inhalations. Anticoagulated with Eliquis. Protonix for GI prophylaxis. The patient is seen today August 28, 2024 in follow-up on the regular medical floor. She is currently sitting up in bed having breakfast. Awake and alert in no acute distress. Denies any worsening shortness of breath, cough or congestion. Maintaining O2 saturations in the mid 90s on 2 L/min per nasal cannula. She has been afebrile. Hemodynamically stable. Denies any worsening lower extremity pain. Left foot cultures were positive for MSSA and Prevotella species. She remains on cefazolin and Flagyl. She remains on bronchodilators. Continued on IV diuretics. Anticoagulated with Eliquis. The patient is seen today August 29, 2024 in follow-up on the regular medical floor. She is awake and alert in no acute distress. She is maintaining good O2 saturations in the 90s on 2 L/min per nasal cannula. She denies any worsening shortness of breath, cough or congestion. Left foot cultures were positive for MSSA and Prevotolla species. Sodium 131. Potassium 4.0. Bicarb 27. BUN 27. Creatinine 0.85. Glucose 112. She remains on cefazolin and Flagyl. Anticoagulated with Eliquis. Remains on IV diuretics. The patient is seen today August 30, 2024 in follow-up on the regular medical floor. She is currently sitting up in bed having breakfast. Awake and alert in no acute distress. Denies any worsening shortness of breath, cough or congestion. She is maintaining O2 saturations in the 90s on 2 L/min per nasal cannula. She remains on cefazolin and Flagyl per ID service. She remains on IV Bumex. Sodium 133. Potassium 4.7. Bicarb 26. BUN 25. Creatinine 1.1. Glucose 118. The patient is seen today August 31, 2024 in follow-up on the regular medical floor. She is awake and alert in no acute distress. Sitting up in bed having breakfast. Denies any shortness of breath, cough or congestion. She is maintaining good O2 saturation in the 90s on 2 L/min per nasal cannula. She has been afebrile. Hemodynamically stable. Sodium 134. Potassium 4.5. Bicarb 26. BUN 29. Creatinine 1.4. Glucose 125. She remains on cefazolin and Flagyl. Continued on bronchodilators. Anticoagulated with Eliquis. The patient is seen today resting comfortably in bed. Awake and alert in no acute distress. Maintaining good O2 saturations in the 90s on 2 L/min per nasal cannula. She has been afebrile. Hemodynamically stable. White count 6.6. Hemoglobin 11.0. Platelets 235. Sodium 132. Potassium 4.3. Bicarb 23. BUN 35. Creatinine 1.03. Glucose 101. She remains on cefazolin and Flagyl. Continued on bronchodilators. Anticoagulated with Eliquis. She remains on IV Bumex. Currently in a negative balance. The patient is seen today September 02, 2024 in follow-up on the regular medical floor. She is currently sitting up in bed. Awake and alert in no acute distress. Denies any shortness of breath, cough or congestion. She is maintaining O2 saturations in the 90s on 2 L/min per nasal cannula. She has been afebrile. Hemodynamically stable. Sodium 134. Potassium 4.7. Bicarb 26. BUN 34. Creatinine 1.4. Glucose 125. She is continued on Kefzol, Flagyl. Remains on bronchodilators. Anticoagulated with Eliquis. Objective - Vital Signs Vital signs: Vital Signs Temp 98.5 F 09/02/24 07:53 Pulse 96 09/02/24 11:10 Resp 18 09/02/24 07:53 BP 104/73 09/02/24 07:53 Pulse Ox 98 09/02/24 07:53 FiO2 100 08/20/24 18:00 Intake & Output 1009/02/24 09/02/24 18:59 06:59 18:59 Intake Total 720 240 Output Total 500 200 Balance 220 40 Intake: Oral 720 240 Output: Urine 500 200 Other: Voiding Method External Catheter # Bowel Movements 1 ABP, PAP, CO, CI - Last Documented Arterial Blood Pressure 111/62 - Exam General Appearance: An alert pleasant 48-year-old female, in no acute distress, on 2 L of O2 by nasal cannula HEENT examination is grossly unremarkable. Mucous membranes are moist. No oral lesions. Neck supple. Full range of motion. No adenopathy thyromegaly or neck vein distention. Cardiovascular examination reveals regular rhythm rate. S1-S2 normal. No S3 or S4. No discernible murmur noted. Sounds are distant. Lungs reveal mostly clear breath sounds. Minimal rhonchi. No wheezes or crackles. Abdomen soft, and obese. Bowel sounds are noted. No mass. Extremities revealed a right below the knee amputation, and transmetatarsal amputation on the left. The patient has a deep wound along the plantar aspect of the transmetatarsal amputation left lower extremity. Dressing in place. Right lower extremity has a below-knee amputation the extremity is less swollen. Cellulitis is improving. Skin is without rash or lesion. Wound in the left foot at the site of a previous transmetatarsal amputation was noted. No active drainage. Bone is e xposed. Neurologic examination difficult to assess. No focal neurological deficit. - Labs CBC & Chem 7: 09/01/24 08:38 09/02/24 04:16 Labs: Abnormal Lab Results - Last 24 Hours (Table) 09/01/24 09/01/24 09/01/24 Range/Units 12:23 17:06 20:08 Sodium (135-145) mmol/L BUN (9.0-27.0) mg/dL Est GFR (CKD-EPI) (>=60) BUN/Creatinine Ratio (12.00-20.00) Ratio Glucose (70-110) mg/dL POC Glucose (mg/dL) 146 H 163 H 137 H (70-110) mg/dL Calcium (8.7-10.3) mg/dL 09/02/24 09/02/24 Range/Units 04:16 07:06 Sodium 134 L (135-145) mmol/L BUN 33.7 H (9.0-27.0) mg/dL Est GFR (CKD-EPI) 46 L (>=60) BUN/Creatinine Ratio 24.07 H (12.00-20.00) Ratio Glucose 125 H (70-110) mg/dL POC Glucose (mg/dL) 122 H (70-110) mg/dL Calcium 8.6 L (8.7-10.3) mg/dL Assessment and Plan Assessment: Septic shock, likely secondary to soft tissue infection/cellulitis in addition to a wound in the left foot at the site of a transmetatarsal amputation. The patient has a chronic stage IV ulcer that has no active drainage at this point in time. Cultures were noted and it is positive for Staph aureus and Prevotella. Currently on IV cefazolin and Flagyl Acute lactic acidosis, improved Severe anion gap metabolic acidosis, improved Acute hyperkalemia, improved , Acute hypoglycemia, likely secondary to above, improved Altered mentation secondary to above, improved Cellulitis of the lower extremities bilaterally, currently on a combination of IV cefazolin and Flagyl, improving Acute on chronic kidney injury with secondary oliguria, consider underlying ATN, renal function improved Right lower extremity DVT, on Eliquis Severe cardiomyopathy with an ejection fraction of 10 to 15% Severe pulmonary hypertension, likely group 2/3 pulmonary hypertension with severe dilatation of the RV Severe peripheral vascular disease, prior right below the knee amputation, and left transmetatarsal amputation. Vascular surgery is on the case History of COPD/asthma Diabetes mellitus, with ongoing episodes of hypoglycemia History of CVA. Coronary artery disease with prior history of myocardial infarction History of hypertension History of DVT Obesity Multiple drug-resistant infections History of pacemaker implantation/defibrillator Plan: The patient was seen and evaluated Labs and medications reviewed She remains on antibiotics, bronchodilators Anticoagulated with Eliquis Cleared for discharge from the pulmonary standpoint This patient was seen independently by the pulmonary nurse practitioner addressing pulmonary issues I have personally seen and examined the patient, performed the documentation and the assessment and plan as written. Number of minutes spent on the visit: 22.
[2024-09-02 12:18] LABS: Glucose,Whole Blood 128 mg/dL (70-110)
--- NOTE | 2024-09-02 13:55 | P.PN ---
Subjective Progress Note Date: 09/02/24 Patient is a 48-year-old female with a past medical history of right lower extremity DVT maintained on Eliquis, right BKA, and left TMA who presented to the emergency department with severe right lower extremity pain and recent falls from her wheelchair during transfers. She is a poor historian at the time of the interview. She is very lethargic and falls asleep while answering questionsAO x 2. She rarely opens her eyes without stimulus. During the interview she is noted to have increased respiratory effort, respiratory rate of 10-12, and small sluggish pupils. Narcan was administered and patient became more alert and respiratory rate improved to 16, AOx3, now able to complete full sentences but remains with eyes closed unless prompted to open. Now she states that she has been having bilateral lower extremity pain worse on the right with erythema and swelling of the right lower extremity. She reports compliance with her medications. She also reports some abdominal pain with a few episodes of vomitingappears nonbloody. She endorses pain in the right lower extremity. She denies chest pain, shortness of breath, current abdominal pain, nausea, vomiting. Femur x-ray unremarkable. Bilateral lower extremity venous Doppler showed positive right lower extremity DVT femoral vein to popliteal vein. EKG shows pacing by AICD. WBC 6.1, hemoglobin 10.1, platelets 179, PT 13.3, INR 1.3, sodium 136, potassium 4.6, CO2 20, creatinine 1.73, GFR 34, lactic acid 2.2, phosphorus 4.6, CRP 2.9, TSH 27.6. Afebrile, normotensive, tachycardic in the low 100s saturating well on room air. 08/18. Patient seen sleeping in bed. Still with eyes closed while conversing but will open them when prompted. States she's had no energy for days. Chest x-ray 08/17: Cardiomegaly and mild pulmonary vascular congestion. Brain CT 08/17: No acute intracranial process, old lacunar infarct left thalamus. Pulmonary perfusion scan 08/18: No mismatch defect is evident, intermediate probability for acute pulmonary embolism. WBCs 10.8, hemoglobin 10.4, sodium 134, potassium 5.5, creatinine 2.78, hemoglobin A1c 6.5, N-terminal proBNP 21.9, procalcitonin 1.22. 08/19. Patient seen and examined. Ultrasound abdomen done showed no evidence for acute abdominal process, hepatic steatosis. Ultrasound of kidneys done showed nonobstructing right renal calculus. Patient stated she feels better, still has pain in the right BKA stump. 08/20. Patient seen laying in bed. Preliminary wound culture shows presumptive Staph aureus. Patient appears to be struggling to find her words/Labs: WBCs 16.3, hemoglobin 11.8, potassium 5.6, creatinine 1.99, total bilirubin 2.4. ABG: pH 7.26, pCO2 31, pO2 84, HCO3 14. Patient with worsening prognosis, transfer to ICU. 08/21. Patient seen and examined. Blood work done this morning showed WBC 11.7, hematin 0.5, platelet count 252, sodium 126, potassium 4.7, BUN 53, creatinine 2.29 bilirubin 2.8, AST 2378, ALT 1144. Patient is lethargic, opening eyes, answers question appropriately 08/28/24 - Patient seen at bedside today. At bedside today patient's mentation is improved, with resolution of her confusion. Patient is aware of who she is, her birthday, and where she is currently. And her pleasant demeanor has returned. Patient has no acute complaints, stating that her chest pain from yesterday has resolved and she no longer has any. Per infectious disease recommendation while the patient is currently being treated with cefazolin and Flagyl, the patient will be able to finish therapy with oral antibiotics. 08/29/24 - Patient seen at bedside today. Patient's mentation continues to improve without any acute complaints at this moment. Per infectious disease recommendation, patient to continue cefazolin and Flagyl while inpatient and then transition to oral Keflex and Flagyl upon discharge. Per nephrology, patient to continue on IV Bumex with continued monitoring of her electrolytes. Physical therapy saw and evaluated the patient yesterday (08/28) and stated that they will continue to see the patient once daily while in the hospital. Will continue on IV diuretics, as patient still has some edema, while improving, still present. New labs -sodium 131, potassium 4.0, BUN 27, creatinine 0.85 08/30/2024: Patient seen at bedside. No significant overnight events. Patient reports she is feeling well this morning. Cellulitis continues to regress from initial marked line. 08/31/24 - Patient seen at bedside. No significant overnight events. Patient remains confused, with fluctuating intervals of confusion and being fully alert and oriented. Patient reports she was feeling well this morning. Cellulitis continues to regress and show improvements. Entresto to be held, per nephrology's recommendation. Patient's BUN increased to 28.9 as compared to 24.9 yesterday (08/30) and creatinine increased to 1.4 as compared to 1.1 yesterday (08/30). Patient will be monitored over the next couple of days for change in kidney function. 09/01/24 - Patient seen at bedside today. No significant overnight events. Patient remains confused, with fluctuating intervals of confusion and being fully alert and oriented. Per nephrology's recommendation Entresto was held, continue on IV Bumex, and decrease metoprolol (if heart rate is further elevated metoprolol will be increased back to 25 twice daily). Patient's labs (CBC, BMP) are currently pending at the time of dictation, monitoring BUN and creatinine as they had began to increase yesterday, additionally, magnesium phosphorus labs are currently pending. She is currently in no distress sitting comfortably in bed resting. Patient continues to saturate in the high 90%'s on 2 L nasal cannula with respiratory to 16, blood pressure 100/64 with a heart rate of 95. Patient continues to receive IV cefazolin. Her BUN today is 35, increased from 28.9 yesterday, and her creatinine is 1.03 which is down from 1.4 yesterday. Additionally, her magnesium and phosphorous were both within normal limits. She does remain confused, as she continues to know who she is, her birthday and that she is in the hospital (although stating she is in the "ER" as opposed to where she is presently), however she does not know the year and provides incoherent answers without any particular reasoning. 09/02. Patient seen and examined. Patient continues to be confused, mental status waxes and wanes, currently alert to self place and date but will say something odd during the interview Review of systems: ROS limited due to altered mental status. Physical examination: Vital signs are reviewed. General: No acute distress. Arousable, alert and oriented HEENT: Head exam is unremarkable. Lateral third of eyebrows thinning. EOMI bilaterally. ACs patent. Nares patent. Lungs: Bilateral breath sounds present; no rhonchi, wheezes, or rales. Heart: Rate and rhythm are regular. S1-S2 present. No murmur/rub/gallops. Abdomen: Soft, nontender, nondistended. Bowel sounds present. Extremities: Right BKA with erythema. Left TMA with ulcer on bottom now covered with gauze and LLE cellulitis and warmth. Psych: Normal affect and mood. Cooperative. Assessment/Plan: Sepsis, resolved Septic shock, resolved Left lower extremity cellulitis Continue IV cefazolin and Flagyl ID following Chest pain Trend troponin. Troponin times two 0.051, 0.044, respectively Acute metabolic encephalopathy Urinalysis negative Delirium precaution Acute toxic metabolic encephalopathy secondary to medications Delirium precautions Acute transaminitis, improved Hepatic encephalopathy Avoid hepatotoxic agents Monitor LFTs Acute kidney injury, improved Metabolic acidosis, improved Hyperkalemia due to YOLA and acidosis, improved Hyponatremia secondary to YOLA, improved Continue IV fluids Avoid nephrotoxic agents Nephrology following Right lower extremity deep vein thrombosis Continue Eliquis Surgery consultedno surgical intervention at this time Heme/onc consulted-restarted Eliquis Acute hypoxemic respiratory failure Continue oxygen supplementation Aggressive bronchopulmonary hygiene Continue breathing treatments Pulmonary following Left foot ulcer Absorptive silver, saline moist gauze, dry gauze, rolled gauze and secured with paper tape change Tuesday, Tuesday, Tuesday per wound care Hypothyroidism Continue levothyroxine 50 mcg daily Diabetes mellitus type 2 Monitor glucose Insulin sliding scale DVT prophylaxis: Eliquis GI prophylaxis: Protonix 40 mg daily Chronic conditions: Recurrent DVTs, systolic CHF, chronic kidney disease stage IIIb, diabetes mellitus type 2, seizures, history of AICD placement, history of cardiac catheterizations Objective - Vital Signs Vital signs: Vital Signs Temp 98.5 F 09/02/24 07:53 Pulse 96 09/02/24 11:10 Resp 18 09/02/24 07:53 BP 104/73 09/02/24 07:53 Pulse Ox 98 09/02/24 07:53 FiO2 100 08/20/24 18:00 Intake & Output 09/01/24 09/02/24 09/02/24 18:59 06:59 18:59 Intake Total 720 240 Output Total 500 200 Balance 220 40 Intake: Oral 720 240 Output: Urine 500 200 Other: Voiding Method External Catheter # Bowel Movements 1 ABP, PAP, CO, CI - Last Documented Arterial Blood Pressure 111/62 - Labs CBC & Chem 7: 09/01/24 08:38 09/02/24 04:16 Labs: Abnormal Lab Results - Last 24 Hours (Table) 09/01/24 09/01/24 09/02/24 Range/Units 17:06 20:08 04:16 Sodium 134 L (135-145) mmol/L BUN 33.7 H (9.0-27.0) mg/dL Est GFR (CKD-EPI) 46 L (>=60) BUN/Creatinine Ratio 24.07 H (12.00-20.00) Ratio Glucose 125 H (70-110) mg/dL POC Glucose (mg/dL) 163 H 137 H (70-110) mg/dL Calcium 8.6 L (8.7-10.3) mg/dL 09/02/24 09/02/24 Range/Units 07:06 12:14 Sodium (135-145) mmol/L BUN (9.0-27.0) mg/dL Est GFR (CKD-EPI) (>=60) BUN/Creatinine Ratio (12.00-20.00) Ratio Glucose (70-110) mg/dL POC Glucose (mg/dL) 122 H 128 H (70-110) mg/dL Calcium (8.7-10.3) mg/dL
[2024-09-02 17:11] LABS: Glucose,Whole Blood 173 mg/dL (70-110)
[2024-09-02] MEDS ORDERED: ZINC OXIDE PASTE (Z-GUARD) 1 APPLIC TOPICAL PRN (18:00)
[2024-09-02] MEDS: IBUPROFEN 400 MG TAB PO PRN (18:35)
[2024-09-02 20:30] LABS: Glucose,Whole Blood 135 mg/dL (70-110)
[2024-09-03 07:25] LABS: Glucose,Whole Blood 107 mg/dL (70-110)
[2024-09-03 08:27] LABS: African American GFR (CKD) 51 (>60 ml/min/1.73 sqM); Anion Gap 11 mmol/L; Blood Urea Nitrogen 42 mg/dL (7-17); Carbon Dioxide 24 mmol/L (22-30); Chloride 99 mmol/L (98-107); Glucose 119 mg/dL (74-99); Magnesium 1.6 mg/dL (1.6-2.3); Non-African American GFR(CKD) 45 (>60 ml/min/1.73 sqM); Potassium 4.9 mmol/L (3.5-5.1); Sodium 134 mmol/L (137-145)
--- NOTE | 2024-09-03 08:35 | P.PN ---
Subjective Patient seen in follow-up for acute kidney injury. Renal function stable. Urine output low last night but seems to have improved. Blood pressure stable. Vital signs are stable. General: No acute distress. HEENT: Head exam is unremarkable. On nasal cannula. LUNGS: No audible rhonchi or wheezes. HEART: Tachycardic. ABDOMEN: Obese, nontender. EXTREMITITES: Right BKA noted. Transmetatarsal amputation on the left noted. Erythema noted. 1+ edema. Objective - Vital Signs Vital signs: Vital Signs Temp 98.1 F 09/03/24 02:00 Pulse 100 09/03/24 07:57 Resp 14 09/03/24 02:00 BP 109/77 09/03/24 02:00 Pulse Ox 94 L 09/03/24 02:00 FiO2 100 08/20/24 18:00 Intake & Output 09/02/24 09/03/24 09/03/24 18:59 06:59 18:59 Intake Total 480 830 Output Total 600 100 Balance -120 730 Weight 155.6 kg 157.2 kg Intake: IV 50 0.9% NS KVO 50 Intake, IV Titration 100 Amount ceFAZolin 2 gm In Sodium 100 Chloride 0.9% 50 ml @ 100 mls/hr IVPB Q8H [facility] Rx#: [id number] Oral 480 680 Output: Urine 600 100 Other: Voiding Method External Catheter # Bowel Movements 1 ABP, PAP, CO, CI - Last Documented Arterial Blood Pressure 111/62 - Labs CBC & Chem 7: 09/01/24 08:38 09/03/24 07:54 Labs: Abnormal Lab Results - Last 24 Hours (Table) 09/02/24 09/02/24 09/02/24 Range/Units 04:16 12:14 17:07 Sodium 134 L (135-145) mmol/L BUN 33.7 H (9.0-27.0) mg/dL Creatinine (0.52-1.04) mg/dL Est GFR (CKD-EPI) 46 L (>=60) BUN/Creatinine Ratio 24.07 H (12.00-20.00) Ratio Glucose 125 H (70-110) mg/dL POC Glucose (mg/dL) 128 H 173 H (70-110) mg/dL Calcium 8.6 L (8.7-10.3) mg/dL 09/02/24 09/03/24 Range/Units 20:29 07:54 Sodium 134 L (135-145) mmol/L BUN 42 H (9.0-27.0) mg/dL Creatinine 1.38 H (0.52-1.04) mg/dL Est GFR (CKD-EPI) (>=60) BUN/Creatinine Ratio (12.00-20.00) Ratio Glucose 119 H (70-110) mg/dL POC Glucose (mg/dL) 135 H (70-110) mg/dL Calcium (8.7-10.3) mg/dL Assessment and Plan Assessment: 1. Acute kidney injury secondary to ATN secondary to septic shock. Baseline creatinine near 1. Renal function stable with creatinine 1.38 today. Nonoliguric. No hydronephrosis noted on kidney ultrasound. Left kidney not visualized due to patient body habitus. 2. Hyperkalemia due to YOLA and acidosis. Improved. Entresto held. 3. AGMA from lactic acidosis with non-anion gap metabolic acidosis from IVF with respiratory acidosis. Status post bicarb drip. Improved. 4. CKD stage IIIa 2/2 cardiorenal syndrome. Cr baseline 1-1.1 5. CHFrEF (15-20%). 6. Hypervolemic hyponatremia. Stable. 7. LLE cellulitis with DVT on antibiotics. Also on anticoagulation. 8. Type 2 Diabetes 9. Hypomagnesemia from diuresis. On oral magnesium oxide. Plan: Maintain IV Bumex. Increase magnesium oxide frequency to twice daily. Encouraged oral intake. Maintain fluid restriction. Avoid nephrotoxins. Continue to monitor renal function and urine output. Stop Motrin. Heart rate remains elevated. Cardiology is consulted.
--- NOTE | 2024-09-03 08:39 | P.PN ---
Subjective Progress Note Date: 09/02/24 Principal diagnosis: Reason for follow-up is left diabetic foot ulcer and cellulitis Patient is a 48-year female with multiple comorbidities including diabetes mellitus the patient did have a right diabetic foot infection requiring right below the amputation and a chronic nonhealing wound to the left foot to be getting to the hospital with cellulitis to the left lower extremity and wound infection. On today's evaluation that is 09/02/2024,the patient denies any fever or any chills, patient is breathing comfortably on room air, the patient denies chest pain shortness of breath and no significant cough, patient denies abdominal pain, no nausea vomiting or diarrhea. Pain to the lower extremities currently controlled. Patient did have a creatinine of 1.4 no CBC was done today Objective - Vital Signs Vital signs: Vital Signs Temp 98.6 F 09/02/24 13:52 Pulse 100 09/02/24 15:36 Resp 19 09/02/24 13:52 BP 115/75 09/02/24 13:52 Pulse Ox 96 09/02/24 13:52 FiO2 100 08/20/24 18:00 Intake & Output 09/01/24 09/02/24 09/02/24 18:59 06:59 18:59 Intake Total 720 240 Output Total 500 200 600 Balance 220 40 -600 Weight 155.6 kg Intake: Oral 720 240 Output: Urine 500 200 600 Other: Voiding Method External Catheter # Bowel Movements 1 1 ABP, PAP, CO, CI - Last Documented Arterial Blood Pressure 111/62 - Exam GENERAL DESCRIPTION: Middle-age female lying in bed in no distress RESPIRATORY SYSTEM: Unlabored breathing , decreased breath sounds at bases HEART: S1 S2 regular rate and rhythm , ABDOMEN: Soft , no tenderness EXTREMITIES: Left leg did have some erythema which has decreased right leg BKA stump has slight more erythema today - Labs CBC & Chem 7: 09/01/24 08:38 09/03/24 07:54 Labs: Abnormal Lab Results - Last 24 Hours (Table) 09/01/24 09/02/24 09/02/24 Range/Units 20:08 04:16 07:06 Sodium 134 L (135-145) mmol/L BUN 33.7 H (9.0-27.0) mg/dL Est GFR (CKD-EPI) 46 L (>=60) BUN/Creatinine Ratio 24.07 H (12.00-20.00) Ratio Glucose 125 H (70-110) mg/dL POC Glucose (mg/dL) 137 H 122 H (70-110) mg/dL Calcium 8.6 L (8.7-10.3) mg/dL 09/02/24 09/02/24 Range/Units 12:14 17:07 Sodium (135-145) mmol/L BUN (9.0-27.0) mg/dL Est GFR (CKD-EPI) (>=60) BUN/Creatinine Ratio (12.00-20.00) Ratio Glucose (70-110) mg/dL POC Glucose (mg/dL) 128 H 173 H (70-110) mg/dL Calcium (8.7-10.3) mg/dL Assessment and Plan (1) Cellulitis of left foot Current Visit: Yes Status: Acute Code(s): L03.116 - CELLULITIS OF LEFT LOWER LIMB SNOMED Code(s): 38315417933669203 (2) Allergy to multiple antibiotics Current Visit: No Status: Acute Code(s): Z88.1 - ALLERGY STATUS TO OTHER ANTIBIOTIC AGENTS SNOMED Code(s): 759447792 (3) Diabetic ulcer of left foot Current Visit: No Status: Acute Code(s): E11.621 - TYPE 2 DIABETES MELLITUS WITH FOOT ULCER; L97.529 - NON-PRESSURE CHRONIC ULCER OTH PRT LEFT FOOT W UNSP SEVERITY SNOMED Code(s): 293462210 Plan: 1patient with a chronic nonhealing wound to the left foot plantar aspect now with evidence of left lower extremity cellulitis likely being treated for this episode of cellulitis and will need to cover for the gram-positive as well as gram-negative pathogen. 2patient with multiple antibiotic ALLERGIES that would limit the number of antibiotic safe to use 3local wound culture did grew MSSA and Prevotella 4-patient remains to be afebrile and white count last checked was normal, we will continue with cefazolin and Flagyl while inpatient and a short course of oral Keflex and Flagyl on discharge Dictation was produced using [employer] dictation software. please excuse any grammatical, word or spelling errors. Time with Patient: Less than 30
[2024-09-03] MEDS: METOPROLOL TARTRATE 25 MG TAB PO SCH (09:24)
[2024-09-03] MEDS: MAGNESIUM OXIDE 400 MG TAB PO SCH (09:32)
--- NOTE | 2024-09-03 10:56 | P.PN ---
Subjective Progress Note Date: 09/03/24 Patient is a 48-year-old female with a past medical history of right lower extremity DVT maintained on Eliquis, right BKA, and left TMA who presented to the emergency department with severe right lower extremity pain and recent falls from her wheelchair during transfers. She is a poor historian at the time of the interview. She is very lethargic and falls asleep while answering questionsAO x 2. She rarely opens her eyes without stimulus. During the interview she is noted to have increased respiratory effort, respiratory rate of 10-12, and small sluggish pupils. Narcan was administered and patient became more alert and respiratory rate improved to 16, AOx3, now able to complete full sentences but remains with eyes closed unless prompted to open. Now she states that she has been having bilateral lower extremity pain worse on the right with erythema and swelling of the right lower extremity. She reports compliance with her medications. She also reports some abdominal pain with a few episodes of vomitingappears nonbloody. She endorses pain in the right lower extremity. She denies chest pain, shortness of breath, current abdominal pain, nausea, vomiting. Femur x-ray unremarkable. Bilateral lower extremity venous Doppler showed positive right lower extremity DVT femoral vein to popliteal vein. EKG shows pacing by AICD. WBC 6.1, hemoglobin 10.1, platelets 179, PT 13.3, INR 1.3, sodium 136, potassium 4.6, CO2 20, creatinine 1.73, GFR 34, lactic acid 2.2, phosphorus 4.6, CRP 2.9, TSH 27.6. Afebrile, normotensive, tachycardic in the low 100s saturating well on room air. 08/18. Patient seen sleeping in bed. Still with eyes closed while conversing but will open them when prompted. States she's had no energy for days. Chest x-ray 08/17: Cardiomegaly and mild pulmonary vascular congestion. Brain CT 08/17: No acute intracranial process, old lacunar infarct left thalamus. Pulmonary perfusion scan 08/18: No mismatch defect is evident, intermediate probability for acute pulmonary embolism. WBCs 10.8, hemoglobin 10.4, sodium 134, potassium 5.5, creatinine 2.78, hemoglobin A1c 6.5, N-terminal proBNP 21.9, procalcitonin 1.22. 08/19. Patient seen and examined. Ultrasound abdomen done showed no evidence for acute abdominal process, hepatic steatosis. Ultrasound of kidneys done showed nonobstructing right renal calculus. Patient stated she feels better, still has pain in the right BKA stump. 08/20. Patient seen laying in bed. Preliminary wound culture shows presumptive Staph aureus. Patient appears to be struggling to find her words/Labs: WBCs 16.3, hemoglobin 11.8, potassium 5.6, creatinine 1.99, total bilirubin 2.4. ABG: pH 7.26, pCO2 31, pO2 84, HCO3 14. Patient with worsening prognosis, transfer to ICU. 08/21. Patient seen and examined. Blood work done this morning showed WBC 11.7, hematin 0.5, platelet count 252, sodium 126, potassium 4.7, BUN 53, creatinine 2.29 bilirubin 2.8, AST 2378, ALT 1144. Patient is lethargic, opening eyes, answers question appropriately 08/28/24 - Patient seen at bedside today. At bedside today patient's mentation is improved, with resolution of her confusion. Patient is aware of who she is, her birthday, and where she is currently. And her pleasant demeanor has returned. Patient has no acute complaints, stating that her chest pain from yesterday has resolved and she no longer has any. Per infectious disease recommendation while the patient is currently being treated with cefazolin and Flagyl, the patient will be able to finish therapy with oral antibiotics. 08/29/24 - Patient seen at bedside today. Patient's mentation continues to improve without any acute complaints at this moment. Per infectious disease recommendation, patient to continue cefazolin and Flagyl while inpatient and then transition to oral Keflex and Flagyl upon discharge. Per nephrology, patient to continue on IV Bumex with continued monitoring of her electrolytes. Physical therapy saw and evaluated the patient yesterday (08/28) and stated that they will continue to see the patient once daily while in the hospital. Will continue on IV diuretics, as patient still has some edema, while improving, still present. New labs -sodium 131, potassium 4.0, BUN 27, creatinine 0.85 08/30/2024: Patient seen at bedside. No significant overnight events. Patient reports she is feeling well this morning. Cellulitis continues to regress from initial marked line. 08/31/24 - Patient seen at bedside. No significant overnight events. Patient remains confused, with fluctuating intervals of confusion and being fully alert and oriented. Patient reports she was feeling well this morning. Cellulitis continues to regress and show improvements. Entresto to be held, per nephrology's recommendation. Patient's BUN increased to 28.9 as compared to 24.9 yesterday (08/30) and creatinine increased to 1.4 as compared to 1.1 yesterday (08/30). Patient will be monitored over the next couple of days for change in kidney function. 09/01/24 - Patient seen at bedside today. No significant overnight events. Patient remains confused, with fluctuating intervals of confusion and being fully alert and oriented. Per nephrology's recommendation Entresto was held, continue on IV Bumex, and decrease metoprolol (if heart rate is further elevated metoprolol will be increased back to 25 twice daily). Patient's labs (CBC, BMP) are currently pending at the time of dictation, monitoring BUN and creatinine as they had began to increase yesterday, additionally, magnesium phosphorus labs are currently pending. She is currently in no distress sitting comfortably in bed resting. Patient continues to saturate in the high 90%'s on 2 L nasal cannula with respiratory to 16, blood pressure 100/64 with a heart rate of 95. Patient continues to receive IV cefazolin. Her BUN today is 35, increased from 28.9 yesterday, and her creatinine is 1.03 which is down from 1.4 yesterday. Additionally, her magnesium and phosphorous were both within normal limits. She does remain confused, as she continues to know who she is, her birthday and that she is in the hospital (although stating she is in the "ER" as opposed to where she is presently), however she does not know the year and provides incoherent answers without any particular reasoning. 09/02/24. Patient seen and examined. Patient continues to be confused, mental status waxes and wanes, currently alert to self place and date but will say something odd during the interview 09/03/24. Patient seen and examined. Continues to be confused She is alert and oriented to person, place. Does not know what month it is. Review of systems: ROS limited due to altered mental status. Physical examination: Vital signs are reviewed. General: No acute distress. Arousable, alert and oriented HEENT: Head exam is unremarkable. Lateral third of eyebrows thinning. EOMI bilaterally. ACs patent. Nares patent. Lungs: Bilateral breath sounds present; no rhonchi, wheezes, or rales. Heart: Rate and rhythm are regular. S1-S2 present. No murmur/rub/gallops. Abdomen: Soft, nontender, nondistended. Bowel sounds present. Extremities: Right BKA with erythema. Left TMA with ulcer on bottom now covered with gauze and LLE cellulitis and warmth. Psych: Normal affect and mood. Cooperative. Assessment/Plan: Sepsis, resolved Septic shock, resolved Left lower extremity cellulitis - ID note reviewed. continue with IV cefazolin and Flagyl while inpatient, and a short course 7-day course of oral Keflex and Flagyl on discharge Tachycardia - [place] 107. has been having mutliple runs of tachycardia since admission - cardiology consulted - placed on metoprolol tartrate 25 mg PO Daily - cardiology note reviewed. suggesting patient would benefit with addition of Entresto, Farxiga, and Aldactone, repeat kidney function - cardiac monitoring Acute metabolic encephalopathy, resolved - Urinalysis negative - Delirium precaution - call family to determine baseline Acute toxic metabolic encephalopathy secondary to medications Delirium precautions Acute transaminitis, improved Hepatic encephalopathy Avoid hepatotoxic agents Monitor LFTs Acute kidney injury, improving Metabolic acidosis, resolved Hyperkalemia due to YOLA and acidosis, resolved Hyponatremia secondary to Y[place]A, improving Creatinine 1.38 (baseline around 1) Continue IV fluids Avoid nephrotoxic agents montior renal function and urine output Nephrology note reviewed. Maintain IV Bumex, maintain fluid restriction Right lower extremity deep vein thrombosis Continue Eliquis Surgery consultedno surgical intervention at this time Heme/onc consulted-restarted Eliquis Acute hypoxemic respiratory failure Continue oxygen supplementation Aggressive bronchopulmonary hygiene Continue breathing treatments Pulmonary following Left foot ulcer Absorptive silver, saline moist gauze, dry gauze, rolled gauze and secured with paper tape change Tuesday, Tuesday, Tuesday per wound care Chest pain Trend troponin. Troponin times two 0.051, 0.044, respectively Hypothyroidism Continue levothyroxine 50 mcg daily Diabetes mellitus type 2 Monitor glucose Insulin sliding scale DVT prophylaxis: Eliquis GI prophylaxis: Protonix 40 mg daily Chronic conditions: Recurrent DVTs, systolic CHF, chronic kidney disease stage IIIb, diabetes mellitus type 2, seizures, history of AICD placement, history of cardiac catheterizations Attestation I have seen and examined this patient with my resident , discussed the same with the resident/ANTONIA, and agree with the dictator's assessment and plan as written Dr. Yash davidson Objective - Vital Signs Vital signs: Vital Signs Temp 98.1 F 09/03/24 02:00 Pulse 104 H 09/03/24 07:47 Resp 14 09/03/24 02:00 BP 109/77 09/03/24 02:00 Pulse Ox 94 L 09/03/24 02:00 FiO2 100 08/20/24 18:00 Intake & Output 09/02/24 09/03/24 09/03/24 18:59 06:59 18:59 Intake Total 480 830 Output Total 600 100 Balance -120 730 Weight 155.6 kg 157.2 kg Intake: IV 50 0.9% NS KVO 50 Intake, IV Titration 100 Amount ceFAZolin 2 gm In Sodium 100 Chloride 0.9% 50 ml @ 100 mls/hr IVPB Q8H [facility] Rx#: [id number] Oral 480 680 Output: Urine 600 100 Other: Voiding Method External Catheter # Bowel Movements 1 ABP, PAP, CO, CI - Last Documented Arterial Blood Pressure 111/62 - Labs CBC & Chem 7: 09/01/24 08:38 09/04/24 05:29 Labs: Abnormal Lab Results - Last 24 Hours (Table) 09/02/24 09/02/24 09/02/24 Range/Units 04:16 12:14 17:07 Sodium 134 L (135-145) mmol/L BUN 33.7 H (9.0-27.0) mg/dL Est GFR (CKD-EPI) 46 L (>=60) BUN/Creatinine Ratio 24.07 H (12.00-20.00) Ratio Glucose 125 H (70-110) mg/dL POC Glucose (mg/dL) 128 H 173 H (70-110) mg/dL Calcium 8.6 L (8.7-10.3) mg/dL 09/02/24 Range/Units 20:29 Sodium (135-145) mmol/L BUN (9.0-27.0) mg/dL Est GFR (CKD-EPI) (>=60) BUN/Creatinine Ratio (12.00-20.00) Ratio Glucose (70-110) mg/dL POC Glucose (mg/dL) 135 H (70-110) mg/dL Calcium (8.7-10.3) mg/dL
--- NOTE | 2024-09-03 11:51 | P.CRDCN ---
History of Present Illness History of present illness: HISTORY OF PRESENT ILLNESS: This is a 48-year-old female with a past medical history significant for nonischemic cardiomyopathy, congestive heart failure, right BKA, chronic kidney disease, diabetes, and DVT. Patient follows in the office with Dr. Lam but has not been seen in the office since October 2022. We have been asked to see the patient in consultation for tachycardia and congestive heart failure. Patient examined at the bedside. Patient is confused at the time of examination and unable to provide thorough history. Patient is admitted to the hospital secondary to left lower extremity cellulitis, sepsis, acute kidney injury, and encephalopathy. At the time of examination, the patient denies any chest pain or shortness of breath. She is mildly tachycardic this morning with a heart rate around [id number]. Blood pressure 108/78. Patient was previously on Entresto on an outpatient basis. However this has been held secondary to acute kidney injury. DIAGNOSTICS: - EKG reveals regular paced rhythm - Chest xray from 08/26/2024 reveals interval removal of right IJ central venous line. No pneumothorax. Cardiomegaly with multilead pacemaker/AICD redemonstrated. Compared to prior there is improved aeration of left perihilar infiltrate or atelectasis however left lung base and hemodiaphragm remain poorly visualized. Increased right perihilar infiltrates.. - Laboratory data: WBC 6.6. Hemoglobin 11.0. Platelet count 235. Sodium 134. Potassium 4.9. BUN 42. Creatinine 1.38. - Current home cardiac medications include Eliquis 5 mg twice a day, Bumex 2 mg daily, Entresto 49-51 mg twice a day - Most recent echocardiogram obtained in January 2024 revealing ejection fraction 15 to 20%, severe pulmonary hypertension, moderate mitral regurgitation, moderate to severe tricuspid regurgitation - Cardiac catheterization history: 10/2021 revealing normal coronary arteries REVIEW OF SYSTEMS: At the time of my exam: Unable to accurately assess thorough review of systems secondary to altered mental status PHYSICAL EXAM: VITAL SIGNS: Reviewed. GENERAL: Well-developed in no acute distress. HEENT: Head is normocephalic. Pupils are equal, round. Sclerae anicteric. Mucous membranes of the mouth are moist. Neck supple. No JVD or thyromegaly LUNGS: Respirations even and unlabored. Lungs essentially clear to auscultation bilaterally. HEART: Regular rate and rhythm. S1 and S2 heard. ABDOMEN: Soft. Nondistended. Nontender. EXTREMITIES: Normal range of motion. No clubbing or cyanosis. Peripheral pulses intact. Right BKA noted. Left lower extremity with dressing noted. 2+ edema of left lower extremity. NEUROLOGIC: Awake and alert. Oriented x 1. ASSESSMENT: Left lower extremity cellulitis Sepsis Acute metabolic encephalopathy Sinus tachycardia Acute on chronic heart failure with reduced EF History of nonischemic cardiomyopathy, 15 to 20% History of ICD implantation, [employer] Right lower extremity DVT, diagnosed July 2024 Severe pulmonary hypertension Normal coronary arteries by cardiac catheterization 10/2021 History of nonhealing ulcer status post right BKA Acute kidney injury PLAN: No need to repeat echocardiogram as this was performed in January 2024 Continue IV Bumex 1mg daily Daily weights, accurate intake and output, and monitoring of kidney function Add metoprolol succinate 25 mg daily Patient would benefit from addition of Entresto, Farxiga, and Aldactone. We will repeat kidney function tomorrow and slowly begin these medications. Further recommendations pending patient course Nurse practitioner note has been reviewed by physician. Signing provider agrees with the documented findings, assessment, and plan of care documented by ART THERAPY SPECIALIST as a scribe. Past Medical History Past Medical History: Asthma, Heart Failure, COPD, CVA/TIA, Diabetes Mellitus, Deep Vein Thrombosis (DVT), Hypertension, Myocardial Infarction ([place]), Pneumonia, Seizure Disorder, Seizure Disorder Additional Past Medical History / Comment(s): uses a wheelchair. Patient states last seizure summer 2019 while she was at [facility]. cardiomyopathy sepsis hx Last Myocardial Infarction Date:: 06/2018 History of Any Multi-Drug Resistant Organisms: ESBL, VRE, VRE Date of last positivie culture/infection: 12/18/20 ESBL E.coli; 04/22/17 VRE MDRO Source:: ESBL Left foot; VRE Right Foot Past Surgical History: Adenoidectomy, AICD, Section, Heart Catheteri zation, Orthopedic Surgery, Pacemaker, Tonsillectomy Additional Past Surgical History / Comment(s): AICD - [employer]. has pacemaker defibrillator, right all toe amputated 04/2016, R BKA 2019, LT GREAT TOE then left foot partial amputation, cardiac cath 2022 Past Anesthesia/Blood Transfusion Reactions: Postoperative Nausea & Vomiting (PONV) Type of Cardiac Device: Biventricular Pacemaker, Permanent Pacemaker, AICD Device Placement Date:: 2011 Past Psychological History: Bipolar Smoking Status: Former smoker Past Alcohol Use History: None Reported Past Drug Use History: Marijuana - Past Family History Mother Family Medical History: Unable to Obtain, Deep Vein Thrombosis (DVT) Additional Family Medical History / Comment(s): Some type of heart problems, kidney failure. Father History Unknown: Yes Family Medical History: Unable to Obtain Additional Family Medical History / Comment(s): Patient denies knowing any medical history on her father. Medications and Allergies Home Medications Medication Instructions Recorded Confirmed Type Insulin Glargine [Lantus Vial] 40 unit SQ HS 04/30/19 08/16/24 History Pantoprazole [Protonix] 40 mg PO DAILY 01/29/24 08/16/24 History Apixaban [Eliquis] 5 mg PO BID 04/19/24 08/16/24 History Bumetanide [BUMEX] 2 mg PO DAILY 04/19/24 08/16/24 History Sacubitril/Valsartan [Entresto 49 1 tab PO BID 04/19/24 08/16/24 History mg-51 mg Tablet] ALPRAZolam [Xanax] 0.5 mg PO BID 08/16/24 08/16/24 History Gabapentin 600 mg PO TID 08/16/24 08/16/24 History Ipratropium-Albuterol Nebulize 3 ml INHALATION RT-TID PRN 08/16/24 08/16/24 History [Duoneb 0.5 mg-3 mg/3 ml Soln] Lacosamide [Vimpat] 50 mg PO BID 08/16/24 08/16/24 History Allergies Allergy/AdvReac Type Severity Reaction Status Date / Time Penicillins Allergy Rash/Hives Verified 08/16/24 17:58 vancomycin Allergy Rash/Hives Verified 08/16/24 17:58 ondansetron [From Zofran] AdvReac Nausea & Verified 08/16/24 17:58 Vomiting Physical Exam Vitals: Vital Signs Temp Pulse Pulse Resp BP BP Pulse Ox 09/03/24 07:57 100 09/03/24 07:47 104 H 09/03/24 02:00 98.1 F 111 H 14 109/77 94 L 09/02/24 20:00 98.2 F 114 H 14 100/69 97 09/02/24 19:44 100 09/02/24 19:32 104 H 09/02/24 15:36 100 09/02/24 15:21 100 09/02/24 13:52 98.6 F 105 H 19 115/75 96 09/02/24 11:10 96 09/02/24 10:56 96 Intake and Output 09/02/24 09/03/24 09/03/24 22:59 06:59 14:59 Intake Total 480 830 Output Total 600 100 Balance -120 730 Intake: IV 50 0.9% NS KVO 50 Intake, IV Titration 100 Amount ceFAZolin 2 gm In Sodium 100 Chloride 0.9% 50 ml @ 100 mls/hr IVPB Q8H [facility] Rx#: [id number] Oral 480 680 Output: Urine 600 100 Other: Voiding Method External Catheter # Bowel Movements 1 Weight 155.6 kg 157.2 kg Results 09/01/24 08:38 09/03/24 07:54 Comprehensive Metabolic Panel 09/02/24 Range/Units 04:16 Sodium 134 L (135-145) mmol/L Potassium 4.7 (3.5-5.5) mmol/L Chloride 97 (96-109) mmol/L Carbon Dioxide 25.6 (21.6-31.8) mmol/L BUN 33.7 H (9.0-27.0) mg/dL Creatinine 1.4 (0.6-1.5) mg/dL Glucose 125 H (70-110) mg/dL Calcium 8.6 L (8.7-10.3) mg/dL Current Medications Generic Name Dose Route Start Last Admin Trade Name Freq PRN Reason Stop Dose Admin Acetaminophen 650 mg 08/17/24 11:29 09/03/24 05:49 Acetaminophen Tab 325 Mg Tab PO 650 mg Q6HR PRN Administration Fever and/ or Pain Albuterol/Ipratropium 3 ml 08/20/24 15:02 Ipratropium-Albuterol 3 Ml Neb INHALATION RT-Q2H PRN Shortness Of Breath Or Wheezing Albuterol/Ipratropium 3 ml 08/22/24 08:00 09/03/24 07:46 Ipratropium-Albuterol 3 Ml Neb INHALATION 3 ml RT-QID JAN Administration Apixaban 5 mg 08/17/24 21:00 09/03/24 07:49 Apixaban 5 Mg Tab PO 5 mg BID JAN Administration Protocol Bumetanide 1 mg 09/01/24 09:00 09/02/24 07:54 Bumetanide 0.25 Mg/Ml 4 Ml Vial IV 1 mg DAILY JAN Administration Dextrose/Water 25 ml 08/17/24 08:34 Dextrose 50% Syringe 50 Ml IVP PER PROTOCOL PRN Hypoglycemia Protocol Dextrose/Water 50 ml 08/17/24 08:34 08/20/24 12:45 Dextrose 50% Syringe 50 Ml IVP 50 ml PER PROTOCOL PRN Administration Hypoglycemia Protocol Cefazolin Sodium 2 gm/ Sodium 50 mls @ 100 mls/hr 08/29/24 22:00 09/03/24 05:45 Chloride IVPB 100 mls/hr Q8H JAN Administration Protocol Insulin Aspart 0 unit 08/23/24 21:30 09/03/24 07:50 Insulin Aspart (Novolog) 100 Unit/Ml Vial SQ Not Given ACHS JAN Protocol Lacosamide 50 mg 08/17/24 09:00 09/03/24 07:50 Lacosamide 50 Mg Tablet PO 50 mg BID JAN Administration Levothyroxine Sodium 50 mcg 08/17/24 11:24 09/03/24 05:45 Levothyroxine 50 Mcg Tab PO 50 mcg DAILY@0630 JAN Administration Magnesium Oxide 400 mg 08/26/24 12:00 09/03/24 07:50 Magnesium Oxide 400 Mg Tab PO 400 mg DAILY JAN Administration Metronidazole 500 mg 08/21/24 16:00 09/03/24 07:50 Metronidazole 500 Mg Tab PO 500 mg TID JAN Administration Protocol Miscellaneous Information 1 each 08/20/24 15:02 Magnesium Replacement Protocol 1 Each Mis MISCELLANE DAILY PRN Per Protocol Protocol Miscellaneous Information 1 each 08/20/24 15:02 Phosphorus Replacement Protoco 1 Each Mis MISCELLANE DAILY PRN Per Protocol Protocol Miscellaneous Information 1 each 08/23/24 06:10 Potassium Replacement Protocol 1 Each Mis MISCELLANE DAILY PRN Per Protocol Protocol Naloxone HCl 0.2 mg 08/16/24 18:36 08/17/24 09:06 Naloxone 0.4 Mg/Ml 1 Ml Vial IV 0.2 mg Q2M PRN Administration Opioid Reversal Pantoprazole Sodium 40 mg 08/23/24 17:30 09/03/24 07:50 Pantoprazole 40 Mg Tablet PO 40 mg AC-BID JAN Administration Petrolatum 1 applic 09/02/24 18:00 Zinc Oxide Paste (Z-Guard) 1 Applic TOPICAL BID PRN Wound Healing Protocol Quetiapine Fumarate 25 mg 08/27/24 11:02 Quetiapine 25 Mg Tab PO HS PRN Agitation Intake and Output 09/02/24 09/03/24 09/03/24 22:59 06:59 14:59 Intake Total 480 830 Output Total 600 100 Balance -120 730 Intake: IV 50 0.9% NS KVO 50 Intake, IV Titration 100 Amount ceFAZolin 2 gm In Sodium 100 Chloride 0.9% 50 ml @ 100 mls/hr IVPB Q8H [facility] Rx#: [id number] Oral 480 680 Output: Urine 600 100 Other: Voiding Method External Catheter # Bowel Movements 1 Weight 155.6 kg 157.2 kg 09/01/24 08:38 09/02/24 04:16
--- NOTE | 2024-09-03 12:10 | P.PN ---
Subjective Progress Note Date: 09/03/24 Principal diagnosis: Reason for follow-up is left diabetic foot ulcer and cellulitis Patient is a 48-year female with multiple comorbidities including diabetes mellitus the patient did have a right diabetic foot infection requiring right below the amputation and a chronic nonhealing wound to the left foot to be getting to the hospital with cellulitis to the left lower extremity and wound infection. On today's evaluation that is 09/03/2024,the patient remains to be afebrile, patient is on room air not requiring supplemental oxygen and denies any shortness of breath no chest pain or cough.Patient denies having any nausea or vomiting, no abdominal pain and no diarrhea has been reported, denies pain to the lower extremity. Patient did have a creatinine 1.38 Objective - Vital Signs Vital signs: Vital Signs Temp 98.5 F 09/03/24 08:00 Pulse 100 09/03/24 11:11 Resp 17 09/03/24 08:00 BP 108/78 09/03/24 08:00 Pulse Ox 96 09/03/24 08:00 FiO2 100 08/20/24 18:00 Intake & Output 09/02/24 09/03/24 09/03/24 18:59 06:59 18:59 Intake Total 480 830 237 Output Total 600 100 Balance -120 730 237 Weight 155.6 kg 157.2 kg Intake: IV 50 0.9% NS KVO 50 Intake, IV Titration 100 Amount ceFAZolin 2 gm In Sodium 100 Chloride 0.9% 50 ml @ 100 mls/hr IVPB Q8H [facility] Rx#: [id number] Oral 480 680 237 Output: Urine 600 100 Other: Voiding Method External Catheter # Bowel Movements 1 ABP, PAP, CO, CI - Last Documented Arterial Blood Pressure 111/62 - Exam GENERAL DESCRIPTION: Middle-age female lying in bed in no distress RESPIRATORY SYSTEM: Unlabored breathing , decreased breath sounds at bases HEART: S1 S2 regular rate and rhythm , ABDOMEN: Soft , no tenderness EXTREMITIES: Left leg did have some erythema which has decreased right leg BKA stump has slight more erythema today - Labs CBC & Chem 7: 09/01/24 08:38 09/03/24 07:54 Labs: Abnormal Lab Results - Last 24 Hours (Table) 09/02/24 09/02/24 09/02/24 Range/Units 12:14 17:07 20:29 Sodium (137-145) mmol/L BUN (7-17) mg/dL Creatinine (0.52-1.04) mg/dL Glucose (74-99) mg/dL POC Glucose (mg/dL) 128 H 173 H 135 H (70-110) mg/dL 09/03/24 Range/Units 07:54 Sodium 134 L (137-145) mmol/L BUN 42 H (7-17) mg/dL Creatinine 1.38 H (0.52-1.04) mg/dL Glucose 119 H (74-99) mg/dL POC Glucose (mg/dL) (70-110) mg/dL Assessment and Plan (1) Cellulitis of left foot Current Visit: Yes Status: Acute Code(s): L03.116 - CELLULITIS OF LEFT LOWER LIMB SNOMED Code(s): 55610809661699144 (2) Allergy to multiple antibiotics Current Visit: No Status: Acute Code(s): Z88.1 - ALLERGY STATUS TO OTHER ANTIBIOTIC AGENTS SNOMED Code(s): 446509138 (3) Diabetic ulcer of left foot Current Visit: No Status: Acute Code(s): E11.621 - TYPE 2 DIABETES MELLITUS WITH FOOT ULCER; L97.529 - NON-PRESSURE CHRONIC ULCER OTH PRT LEFT FOOT W UNSP SEVERITY SNOMED Code(s): 087758895 Plan: 1patient with a chronic nonhealing wound to the left foot plantar aspect now wi th evidence of left lower extremity cellulitis likely being treated for this episode of cellulitis and will need to cover for the gram-positive as well as gram-negative pathogen. 2patient with multiple antibiotic ALLERGIES that would limit the number of antibiotic safe to use 3local wound culture did grew MSSA and Prevotella 4-patient remains to be afebrile and white count last checked was normal, 5- we will continue with cefazolin and Flagyl while inpatient and a short course 7-day course of oral Keflex and Flagyl on discharge Dictation was produced using [employer] dictation software. please excuse any grammatical, word or spelling errors. Time with Patient: Less than 30
[2024-09-03 12:39] LABS: Glucose,Whole Blood 151 mg/dL (70-110)
--- NOTE | 2024-09-03 12:39 | P.PN ---
Subjective Progress Note Date: 09/03/24 The patient is seen today August 27, 2024 in follow-up on the regular medical floor. She is currently awake and alert in no acute distress. She does remain confused at times. She is currently maintaining good O2 saturations in the 90s on 2 L/min per nasal cannula. She remains on antibiotics in the form of cefazolin and Flagyl. She was positive for MSSA in the wound of her left foot. Chest x-ray reveals no evidence of pneumothorax. There is cardiomegaly. There is improved aeration of left perihilar infiltrate or atelectasis. Sodium 134. Potassium 4.2. Bicarb 23. BUN 27. Creatinine 1.0. Glucose 142. Continued on DuoNeb inhalations. Anticoagulated with Eliquis. Protonix for GI prophylaxis. The patient is seen today August 28, 2024 in follow-up on the regular medical floor. She is currently sitting up in bed having breakfast. Awake and alert in no acute distress. Denies any worsening shortness of breath, cough or congestion. Maintaining O2 saturations in the mid 90s on 2 L/min per nasal cannula. She has been afebrile. Hemodynamically stable. Denies any worsening lower extremity pain. Left foot cultures were positive for MSSA and Prevotella species. She remains on cefazolin and Flagyl. She remains on bronchodilators. Continued on IV diuretics. Anticoagulated with Eliquis. The patient is seen today August 29, 2024 in follow-up on the regular medical floor. She is awake and alert in no acute distress. She is maintaining good O2 saturations in the 90s on 2 L/min per nasal cannula. She denies any worsening shortness of breath, cough or congestion. Left foot cultures were positive for MSSA and Prevotolla species. Sodium 131. Potassium 4.0. Bicarb 27. BUN 27. Creatinine 0.85. Glucose 112. She remains on cefazolin and Flagyl. Anticoagulated with Eliquis. Remains on IV diuretics. The patient is seen today August 30, 2024 in follow-up on the regular medical floor. She is currently sitting up in bed having breakfast. Awake and alert in no acute distress. Denies any worsening shortness of breath, cough or congestion. She is maintaining O2 saturations in the 90s on 2 L/min per nasal cannula. She remains on cefazolin and Flagyl per ID service. She remains on IV Bumex. Sodium 133. Potassium 4.7. Bicarb 26. BUN 25. Creatinine 1.1. Glucose 118. The patient is seen today August 31, 2024 in follow-up on the regular medical floor. She is awake and alert in no acute distress. Sitting up in bed having breakfast. Denies any shortness of breath, cough or congestion. She is maintaining good O2 saturation in the 90s on 2 L/min per nasal cannula. She has been afebrile. Hemodynamically stable. Sodium 134. Potassium 4.5. Bicarb 26. BUN 29. Creatinine 1.4. Glucose 125. She remains on cefazolin and Flagyl. Continued on bronchodilators. Anticoagulated with Eliquis. The patient is seen today resting comfortably in bed. Awake and alert in no acute distress. Maintaining good O2 saturations in the 90s on 2 L/min per nasal cannula. She has been afebrile. Hemodynamically stable. White count 6.6. Hemoglobin 11.0. Platelets 235. Sodium 132. Potassium 4.3. Bicarb 23. BUN 35. Creatinine 1.03. Glucose 101. She remains on cefazolin and Flagyl. Continued on bronchodilators. Anticoagulated with Eliquis. She remains on IV Bumex. Currently in a negative balance. The patient is seen today September 02, 2024 in follow-up on the regular medical floor. She is currently sitting up in bed. Awake and alert in no acute distress. Denies any shortness of breath, cough or congestion. She is maintaining O2 saturations in the 90s on 2 L/min per nasal cannula. She has been afebrile. Hemodynamically stable. Sodium 134. Potassium 4.7. Bicarb 26. BUN 34. Creatinine 1.4. Glucose 125. She is continued on Kefzol, Flagyl. Remains on bronchodilators. Anticoagulated with Eliquis. The patient is seen today September 03, 2024 in follow-up on the regular medical floor. She is awake and alert in no acute distress. She remains confused at times. Resting comfortably in bed. Denies any shortness of breath, cough or congestion. She is maintaining good O2 saturations in the 90s on air. She has been afebrile. Hemodynamically stable. Sodium 134. Potassium 4.9. Bicarb 24. BUN 42. Creatinine 1.38. Glucose 119. She is continued on DuoNeb inhalations. Remains on cefazolin and Flagyl. Continued on IV Bumex. Anticoagulated with Eliquis. Objective - Vital Signs Vital signs: Vital Signs Temp 98.5 F 09/03/24 08:00 Pulse 100 09/03/24 11:11 Resp 17 09/03/24 08:00 BP 108/78 09/03/24 08:00 Pulse Ox 96 09/03/24 08:00 FiO2 100 08/20/24 18:00 Intake & Output 09/02/24 09/03/24 09/03/24 18:59 06:59 18:59 Intake Total 480 830 237 Output Total 600 100 Balance -120 730 237 Weight 155.6 kg 157.2 kg Intake: IV 50 0.9% NS KVO 50 Intake, IV Titration 100 Amount ceFAZolin 2 gm In Sodium 100 Chloride 0.9% 50 ml @ 100 mls/hr IVPB Q8H [facility] Rx#: [id number] Oral 480 680 237 Output: Urine 600 100 Other: Voiding Method External Catheter # Bowel Movements 1 ABP, PAP, CO, CI - Last Documented Arterial Blood Pressure 111/62 - Exam General Appearance: An alert confused 48-year-old female, in no acute distress, on room air HEENT examination is grossly unremarkable. Mucous membranes are moist. No oral lesions. Neck supple. Full range of motion. No adenopathy thyromegaly or neck vein distention. Cardiovascular examination reveals regular rhythm rate. S1-S2 normal. No S3 or S4. No discernible murmur noted. Sounds are distant. Lungs reveal mostly clear breath sounds. Minimal rhonchi. Crackles in the posterior bases.. Abdomen soft, and obese. Bowel sounds are noted. No mass. Extremities revealed a right below the knee amputation, and transmetatarsal amputation on the left. The patient has a deep wound along the plantar aspect of the transmetatarsal amputation left lower extremity. Dressing in place. Right lower extremity has a below-knee amputation the extremity is less swollen. Cellulitis is improving. Skin is without rash or lesion. Wound in the left foot at the site of a previous transmetatarsal amputation was noted. No active drainage. Bone is ex posed. Neurologic examination difficult to assess. No focal neurological deficit. - Labs CBC & Chem 7: 09/01/24 08:38 09/03/24 07:54 Labs: Abnormal Lab Results - Last 24 Hours (Table) 09/02/24 09/02/24 09/03/24 Range/Units 17:07 20:29 07:54 Sodium 134 L (137-145) mmol/L BUN 42 H (7-17) mg/dL Creatinine 1.38 H (0.52-1.04) mg/dL Glucose 119 H (74-99) mg/dL POC Glucose (mg/dL) 173 H 135 H (70-110) mg/dL Assessment and Plan Assessment: Septic shock, likely secondary to soft tissue infection/cellulitis in addition to a wound in the left foot at the site of a transmetatarsal amputation. The patient has a chronic stage IV ulcer that has no active drainage at this point in time. Cultures were noted and it is positive for Staph aureus and Prevotella. Currently on IV cefazolin and Flagyl Acute lactic acidosis, improved Severe anion gap metabolic acidosis, improved Acute hyperkalemia, improved , Acute hypoglycemia, likely secondary to above, improved Altered mentation secondary to above, improved Cellulitis of the lower extremities bilaterally, currently on a combination of IV cefazolin and Flagyl, improving Acute on chronic kidney injury with secondary oliguria, consider underlying ATN, renal function improved Right lower extremity DVT, on Eliquis Severe cardiomyopathy with an ejection fraction of 10 to 15% Severe pulmonary hypertension, likely group 2/3 pulmonary hypertension with severe dilatation of the RV Severe peripheral vascular disease, prior right below the knee amputation, and left transmetatarsal amputation. Vascular surgery is on the case History of COPD/asthma Diabetes mellitus, with ongoing episodes of hypoglycemia History of CVA. Coronary artery disease with prior history of myocardial infarction History of hypertension History of DVT Obesity Multiple drug-resistant infections History of pacemaker implantation/defibrillator Plan: The patient was seen and evaluated Labs and medications reviewed Currently stable and on room air Remains on IV diuretics Cardiology following This patient was seen independently by the pulmonary nurse practitioner addressing pulmonary issues I have personally seen and examined the patient, performed the documentation and the assessment and plan as written. Number of minutes spent on the visit: 23.
[2024-09-03] MEDS: MAGNESIUM SULFATE-D5W PMX 1 GM in DEXTROSE/WATER 1 100ML.BAG IVPB SCH (13:43)
[2024-09-03 17:23] LABS: Glucose,Whole Blood 168 mg/dL (70-110)
[2024-09-03 20:07] LABS: Glucose,Whole Blood 141 mg/dL (70-110)
[2024-09-03] MEDS: NYSTATIN 100,000 UNIT/GM POWD 15 GM TOPICAL SCH (21:17)
[2024-09-04 06:44] LABS: African American GFR (CKD) 43 (>60 ml/min/1.73 sqM); Anion Gap 11 mmol/L; Blood Urea Nitrogen 47 mg/dL (7-17); Calcium 8.8 mg/dL (8.4-10.2); Carbon Dioxide 20 mmol/L (22-30); Chloride 103 mmol/L (98-107); Glucose 107 mg/dL (74-99); Magnesium 1.9 mg/dL (1.6-2.3); Non-African American GFR(CKD) 37 (>60 ml/min/1.73 sqM); Potassium 4.7 mmol/L (3.5-5.1); Sodium 134 mmol/L (137-145)
[2024-09-04 07:39] LABS: Glucose,Whole Blood 104 mg/dL (70-110)
[2024-09-04] MEDS: METOPROLOL SUCCINATE (ER) 25 MG TAB.ER.24H PO SCH (08:43)
--- NOTE | 2024-09-04 09:29 | P.PN ---
Subjective Patient seen in follow-up for acute kidney injury. Renal function worse. Creatinine 1.61. Nonoliguric. Incontinent. Vital signs are stable. General: No acute distress. HEENT: Head exam is unremarkable. On nasal cannula. LUNGS: No audible rhonchi or wheezes. HEART: Regular rate and rhythm. ABDOMEN: Obese, nontender. EXTREMITITES: Right BKA noted. Transmetatarsal amputation on the left noted. Erythema noted. 1+ edema. Objective - Vital Signs Vital signs: Vital Signs Temp 97.6 F 09/04/24 07:53 Pulse 92 09/04/24 08:30 Resp 17 09/04/24 07:53 BP 112/75 09/04/24 07:53 Pulse Ox 98 09/04/24 07:53 FiO2 100 08/20/24 18:00 Intake & Output 09/03/24 09/04/24 09/04/24 18:59 06:59 18:59 Intake Total 237 390 Balance 237 390 Weight 163.3 kg Intake: IV 50 0.9% NS KVO 50 Intake, IV Titration 100 Amount ceFAZolin 2 gm In Sodium 100 Chloride 0.9% 50 ml @ 100 mls/hr IVPB Q8H [facility] Rx#: [id number] Oral 237 240 Other: Voiding Method Diaper Diaper Diaper Incontinent Incontinent Incontinent # Voids 1 # Bowel Movements 2 1 ABP, PAP, CO, CI - Last Documented Arterial Blood Pressure 111/62 - Labs CBC & Chem 7: 09/01/24 08:38 09/04/24 05:29 Labs: Abnormal Lab Results - Last 24 Hours (Table) 09/03/24 09/03/24 09/03/24 Range/Units 12:19 17:20 20:06 Sodium (137-145) mmol/L Carbon Dioxide (22-30) mmol/L BUN (7-17) mg/dL Creatinine (0.52-1.04) mg/dL Glucose (74-99) mg/dL POC Glucose (mg/dL) 151 H 168 H 141 H (70-110) mg/dL 09/04/24 Range/Units 05:29 Sodium 134 L (137-145) mmol/L Carbon Dioxide 20 L (22-30) mmol/L BUN 47 H (7-17) mg/dL Creatinine 1.61 H (0.52-1.04) mg/dL Glucose 107 H (74-99) mg/dL POC Glucose (mg/dL) (70-110) mg/dL Assessment and Plan Assessment: 1. Acute kidney injury secondary to ATN secondary to septic shock. Baseline creatinine near 1. Renal function worse -creatinine 1.6 today. Nonoliguric. No hydronephrosis noted on kidney ultrasound. Left kidney not visualized due to patient body habitus. 2. Hyperkalemia due to YOLA and acidosis. Improved. Entresto held. 3. AGMA from lactic acidosis with non-anion gap metabolic acidosis from IVF with respiratory acidosis. Status post bicarb drip. Improved. 4. CKD stage IIIa 2/2 cardiorenal syndrome. Cr baseline 1-1.1 5. CHFrEF (15-20%). 6. Hypervolemic hyponatremia. Stable. 7. LLE cellulitis with DVT on antibiotics. Also on anticoagulation. 8. Type 2 Diabetes 9. Hypomagnesemia from diuresis. On oral magnesium oxide. Better. 10. Sinus tachycardia maintained on metoprolol. Plan: Maintain IV Bumex. Encouraged oral intake. Maintain fluid restriction. Avoid nephrotoxins. Continue to monitor renal function and urine output. Stopped Motrin.
--- NOTE | 2024-09-04 09:56 | P.PN ---
Subjective HISTORY OF PRESENT ILLNESS: This is a 48-year-old female with a past medical history significant for nonischemic cardiomyopathy, congestive heart failure, right BKA, chronic kidney disease, diabetes, and DVT. Patient follows in the office with Dr. Lam but has not been seen in the office since October 2022. We have been asked to see the patient in consultation for tachycardia and congestive heart failure. Patient examined at the bedside. Patient is confused at the time of examination and unable to provide thorough history. Patient is admitted to the hospital secondary to left lower extremity cellulitis, sepsis, acute kidney injury, and encephalopathy. At the time of examination, the patient denies any chest pain or shortness of breath. She is mildly tachycardic this morning with a heart rate around [id number]. Blood pressure 108/78. Patient was previously on Entresto on an outpatient basis. However this has been held secondary to acute kidney injury. DIAGNOSTICS: - EKG reveals regular paced rhythm - Chest xray from 08/26/2024 reveals interval removal of right IJ central venous line. No pneumothorax. Cardiomegaly with multilead pacemaker/AICD redemonstrated. Compared to prior there is improved aeration of left perihilar infiltrate or atelectasis however left lung base and hemodiaphragm remain poorly visualized. Increased right perihilar infiltrates.. - Laboratory data: WBC 6.6. Hemoglobin 11.0. Platelet count 235. Sodium 134. Potassium 4.9. BUN 42. Creatinine 1.38. - Current home cardiac medications include Eliquis 5 mg twice a day, Bumex 2 mg daily, Entresto 49-51 mg twice a day - Most recent echocardiogram obtained in January 2024 revealing ejection fraction 15 to 20%, severe pulmonary hypertension, moderate mitral regurgitation, moderate to severe tricuspid regurgitation - Cardiac catheterization history: 10/2021 revealing normal coronary arteries 09/04/2024 Patient examined this morning at the bedside. Patient remains somewhat confused at the time of examination. Patient currently denies chest pain or pressure. She denies shortness of breath. She remains on IV Bumex 1 mg daily. Creatinine today slightly worse at 1.61. PHYSICAL EXAM: VITAL SIGNS: Reviewed. GENERAL: Well-developed in no acute distress. HEENT: Head is normocephalic. Pupils are equal, round. Sclerae anicteric. Mucous membranes of the mouth are moist. Neck supple. No JVD or thyromegaly LUNGS: Respirations even and unlabored. Lungs essentially clear to auscultation bilaterally. HEART: Regular rate and rhythm. S1 and S2 heard. ABDOMEN: Soft. Nondistended. Nontender. EXTREMITIES: Normal range of motion. No clubbing or cyanosis. Peripheral pulses intact. Right BKA noted. Left lower extremity with dressing noted. 2+ edema of left lower extremity. NEUROLOGIC: Awake and alert. Oriented x 1. ASSESSMENT: Left lower extremity cellulitis Sepsis Acute metabolic encephalopathy Sinus tachycardia Acute on chronic heart failure with reduced EF History of nonischemic cardiomyopathy, 15 to 20% History of ICD implantation, [employer] Right lower extremity DVT, diagnosed July 2024 Severe pulmonary hypertension Normal coronary arteries by cardiac catheterization 10/2021 History of nonhealing ulcer status post right BKA Acute kidney injury PLAN: No need to repeat echocardiogram as this was performed in January 2024 Continue IV Bumex 1mg daily. Nephrology following. Daily weights, accurate intake and output, and monitoring of kidney function Continue metoprolol succinate 25 mg daily Patient would benefit from addition of Entresto, Farxiga, and Aldactone. We will continue to monitor kidney function and slowly begin these medications when appropriate. Further recommendations pending patient course Nurse practitioner note has been reviewed by physician. Signing provider agrees with the documented findings, assessment, and plan of care documented by CREPE MAKER as a scribe. Objective - Vital Signs Vital signs: Vital Signs Temp 97.6 F 09/04/24 07:53 Pulse 92 09/04/24 08:30 Resp 17 09/04/24 07:53 BP 112/75 09/04/24 07:53 Pulse Ox 98 09/04/24 07:53 FiO2 100 08/20/24 18:00 Intake & Output 09/03/24 09/04/24 09/04/24 18:59 06:59 18:59 Intake Total 237 390 240 Balance 237 390 240 Weight 163.3 kg Intake: IV 50 0.9% NS KVO 50 Intake, IV Titration 100 Amount ceFAZolin 2 gm In Sodium 100 Chloride 0.9% 50 ml @ 100 mls/hr IVPB Q8H [facility] Rx#: [id number] Oral 237 240 240 Other: Voiding Method Diaper Diaper Diaper Incontinent Incontinent Incontinent # Voids 1 # Bowel Movements 2 1 ABP, PAP, CO, CI - Last Documented Arterial Blood Pressure 111/62 - Labs CBC & Chem 7: 09/01/24 08:38 09/04/24 05:29 Labs: Abnormal Lab Results - Last 24 Hours (Table) 09/03/24 09/03/24 09/03/24 Range/Units 12:19 17:20 20:06 Sodium (137-145) mmol/L Carbon Dioxide (22-30) mmol/L BUN (7-17) mg/dL Creatinine (0.52-1.04) mg/dL Glucose (74-99) mg/dL POC Glucose (mg/dL) 151 H 168 H 141 H (70-110) mg/dL 09/04/24 Range/Units 05:29 Sodium 134 L (137-145) mmol/L Carbon Dioxide 20 L (22-30) mmol/L BUN 47 H (7-17) mg/dL Creatinine 1.61 H (0.52-1.04) mg/dL Glucose 107 H (74-99) mg/dL POC Glucose (mg/dL) (70-110) mg/dL
[2024-09-04 12:13] LABS: Glucose,Whole Blood 129 mg/dL (70-110)
--- NOTE | 2024-09-04 13:06 | P.PN ---
Subjective Progress Note Date: 09/04/24 The patient is seen today August 27, 2024 in follow-up on the regular medical floor. She is currently awake and alert in no acute distress. She does remain confused at times. She is currently maintaining good O2 saturations in the 90s on 2 L/min per nasal cannula. She remains on antibiotics in the form of cefazolin and Flagyl. She was positive for MSSA in the wound of her left foot. Chest x-ray reveals no evidence of pneumothorax. There is cardiomegaly. There is improved aeration of left perihilar infiltrate or atelectasis. Sodium 134. Potassium 4.2. Bicarb 23. BUN 27. Creatinine 1.0. Glucose 142. Continued on DuoNeb inhalations. Anticoagulated with Eliquis. Protonix for GI prophylaxis. The patient is seen today August 28, 2024 in follow-up on the regular medical floor. She is currently sitting up in bed having breakfast. Awake and alert in no acute distress. Denies any worsening shortness of breath, cough or congestion. Maintaining O2 saturations in the mid 90s on 2 L/min per nasal cannula. She has been afebrile. Hemodynamically stable. Denies any worsening lower extremity pain. Left foot cultures were positive for MSSA and Prevotella species. She remains on cefazolin and Flagyl. She remains on bronchodilators. Continued on IV diuretics. Anticoagulated with Eliquis. The patient is seen today August 29, 2024 in follow-up on the regular medical floor. She is awake and alert in no acute distress. She is maintaining good O2 saturations in the 90s on 2 L/min per nasal cannula. She denies any worsening shortness of breath, cough or congestion. Left foot cultures were positive for MSSA and Prevotolla species. Sodium 131. Potassium 4.0. Bicarb 27. BUN 27. Creatinine 0.85. Glucose 112. She remains on cefazolin and Flagyl. Anticoagulated with Eliquis. Remains on IV diuretics. The patient is seen today August 30, 2024 in follow-up on the regular medical floor. She is currently sitting up in bed having breakfast. Awake and alert in no acute distress. Denies any worsening shortness of breath, cough or congestion. She is maintaining O2 saturations in the 90s on 2 L/min per nasal cannula. She remains on cefazolin and Flagyl per ID service. She remains on IV Bumex. Sodium 133. Potassium 4.7. Bicarb 26. BUN 25. Creatinine 1.1. Glucose 118. The patient is seen today August 31, 2024 in follow-up on the regular medical floor. She is awake and alert in no acute distress. Sitting up in bed having breakfast. Denies any shortness of breath, cough or congestion. She is maintaining good O2 saturation in the 90s on 2 L/min per nasal cannula. She has been afebrile. Hemodynamically stable. Sodium 134. Potassium 4.5. Bicarb 26. BUN 29. Creatinine 1.4. Glucose 125. She remains on cefazolin and Flagyl. Continued on bronchodilators. Anticoagulated with Eliquis. The patient is seen today resting comfortably in bed. Awake and alert in no acute distress. Maintaining good O2 saturations in the 90s on 2 L/min per nasal cannula. She has been afebrile. Hemodynamically stable. White count 6.6. Hemoglobin 11.0. Platelets 235. Sodium 132. Potassium 4.3. Bicarb 23. BUN 35. Creatinine 1.03. Glucose 101. She remains on cefazolin and Flagyl. Continued on bronchodilators. Anticoagulated with Eliquis. She remains on IV Bumex. Currently in a negative balance. The patient is seen today September 02, 2024 in follow-up on the regular medical floor. She is currently sitting up in bed. Awake and alert in no acute distress. Denies any shortness of breath, cough or congestion. She is maintaining O2 saturations in the 90s on 2 L/min per nasal cannula. She has been afebrile. Hemodynamically stable. Sodium 134. Potassium 4.7. Bicarb 26. BUN 34. Creatinine 1.4. Glucose 125. She is continued on Kefzol, Flagyl. Remains on bronchodilators. Anticoagulated with Eliquis. The patient is seen today September 03, 2024 in follow-up on the regular medical floor. She is awake and alert in no acute distress. She remains confused at times. Resting comfortably in bed. Denies any shortness of breath, cough or congestion. She is maintaining good O2 saturations in the 90s on air. She has been afebrile. Hemodynamically stable. Sodium 134. Potassium 4.9. Bicarb 24. BUN 42. Creatinine 1.38. Glucose 119. She is continued on DuoNeb inhalations. Remains on cefazolin and Flagyl. Continued on IV Bumex. Anticoagulated with Eliquis. The patient is seen today September 04, 2024 in follow-up on the regular medical floor. She is awake and alert in no acute distress. Sitting up in bed. Denies any worsening shortness of breath, cough or congestion. Continued O2 saturations in the 90s on room air. Sodium 134. Potassium 4.7. Bicarb 20. BUN 47. Creatinine 1.61. Glucose 107. She remains on IV Bumex. Continued on bronchodilators. Anticoagulated with Eliquis. Remains on antibiotics in the form of cefazolin and Flagyl. Objective - Vital Signs Vital signs: Vital Signs Temp 97.6 F 09/04/24 07:53 Pulse 92 09/04/24 11:30 Resp 17 09/04/24 07:53 BP 112/75 09/04/24 07:53 Pulse Ox 98 09/04/24 07:53 FiO2 100 08/20/24 18:00 Intake & Output 09/03/24 09/04/24 09/04/24 18:59 06:59 18:59 Intake Total 237 390 240 Balance 237 390 240 Weight 163.3 kg Intake: IV 50 0.9% NS KVO 50 Intake, IV Titration 100 Amount ceFAZolin 2 gm In Sodium 100 Chloride 0.9% 50 ml @ 100 mls/hr IVPB Q8H [facility] Rx#: [id number] Oral 237 240 240 Other: Voiding Method Diaper Diaper Diaper Incontinent Incontinent Incontinent # Voids 1 # Bowel Movements 2 1 ABP, PAP, CO, CI - Last Documented Arterial Blood Pressure 111/62 - Exam General Appearance: An alert confused 48-year-old female, sitting up in bed, in no acute distress, on room air HEENT examination is grossly unremarkable. Mucous membranes are moist. No oral lesions. Neck supple. Full range of motion. No adenopathy thyromegaly or neck vein distention. Cardiovascular examination reveals regular rhythm rate. S1-S2 normal. No S3 or S4. No discernible murmur noted. Sounds are distant. Lungs reveal mostly clear breath sounds. Minimal rhonchi. Crackles in the posterior bases.. Abdomen soft, and obese. Bowel sounds are noted. No mass. Extremities revealed a right below the knee amputation, and transmetatarsal amputation on the left. The patient has a deep wound along the plantar aspect of the transmetatarsal amputation left lower extremity. Dressing in place. Right lower extremity has a below-knee amputation the extremity is less swollen. Cellulitis is improving. Skin is without rash or lesion. Wound in the left foot at the site of a previous transmetatarsal amputation was noted. No active drainage. Bone is exposed. Neurologic examination difficult to assess. No focal neurological deficit. - Labs CBC & Chem 7: 09/01/24 08:38 09/04/24 05:29 Labs: Abnormal Lab Results - Last 24 Hours (Table) 09/03/24 09/03/24 09/04/24 Range/Units 17:20 20:06 05:29 Sodium 134 L (137-145) mmol/L Carbon Dioxide 20 L (22-30) mmol/L BUN 47 H (7-17) mg/dL Creatinine 1.61 H (0.52-1.04) mg/dL Glucose 107 H (74-99) mg/dL POC Glucose (mg/dL) 168 H 141 H (70-110) mg/dL 09/04/24 Range/Units 12:09 Sodium (137-145) mmol/L Carbon Dioxide (22-30) mmol/L BUN (7-17) mg/dL Creatinine (0.52-1.04) mg/dL Glucose (74-99) mg/dL POC Glucose (mg/dL) 129 H (70-110) mg/dL Assessment and Plan Assessment: Septic shock, likely secondary to soft tissue infection/cellulitis in addition to a wound in the left foot at the site of a transmetatarsal amputation. The patient has a chronic stage IV ulcer that has no active drainage at this point in time. Cultures were noted and it is positive for Staph aureus and Prevotella. Currently on IV cefazolin and Flagyl Acute lactic acidosis, improved Severe anion gap metabolic acidosis, improved Acute hyperkalemia, improved , Acute hypoglycemia, likely secondary to above, improved Altered mentation secondary to above, improved Cellulitis of the lower extremities bilaterally, currently on a combination of IV cefazolin and Flagyl, improving Acute on chronic kidney injury with secondary oliguria, consider underlying ATN, renal function improved Right lower extremity DVT, on Eliquis Severe cardiomyopathy with an ejection fraction of 10 to 15% Severe pulmonary hypertension, likely group 2/3 pulmonary hypertension with severe dilatation of the RV Severe peripheral vascular disease, prior right below the knee amputation, and left transmetatarsal amputation. History of COPD/asthma Diabetes mellitus, with ongoing episodes of hypoglycemia History of CVA. Coronary artery disease with prior history of myocardial infarction History of hypertension History of DVT Obesity Multiple drug-resistant infections History of pacemaker implantation/defibrillator Plan: The patient was seen and evaluated Labs and medications reviewed Remains on IV diuretics Antibiotics per ID service Currently stable and on room air Charge planning in place This patient was seen independently by the pulmonary nurse practitioner addressing pulmonary issues I have personally seen and examined the patient, performed the documentation and the assessment and plan as written. Number of minutes spent on the visit: 24.
--- NOTE | 2024-09-04 14:15 | P.PN ---
Subjective Progress Note Date: 09/04/24 Principal diagnosis: Reason for follow-up is left diabetic foot ulcer and cellulitis Patient is a 48-year female with multiple comorbidities including diabetes mellitus the patient did have a right diabetic foot infection requiring right below the amputation and a chronic nonhealing wound to the left foot to be getting to the hospital with cellulitis to the left lower extremity and wound infection. On today's evaluation that is 09/04/2024, the patient continues to be afebrile, the patient is on 2 L nasal oxygen and breathing comfortably, the Pt denies having any chest pain or any worsening cough, the patient denies having any abdominal pain no vomiting or any diarrhea has been reported by the nursing staff. Patient did have a creatinine 1.61 Objective - Vital Signs Vital signs: Vital Signs Temp 97.6 F 09/04/24 13:38 Pulse 92 09/04/24 13:38 Resp 18 09/04/24 13:38 BP 101/70 09/04/24 13:38 Pulse Ox 95 09/04/24 13:38 FiO2 100 08/20/24 18:00 Intake & Output 09/03/24 09/04/24 09/04/24 18:59 06:59 18:59 Intake Total 237 390 240 Balance 237 390 240 Weight 163.3 kg Intake: IV 50 0.9% NS KVO 50 Intake, IV Titration 100 Amount ceFAZolin 2 gm In Sodium 100 Chloride 0.9% 50 ml @ 100 mls/hr IVPB Q8H [facility] Rx#: [id number] Oral 237 240 240 Other: Voiding Method Diaper Diaper Diaper Incontinent Incontinent Incontinent # Voids 1 # Bowel Movements 2 1 ABP, PAP, CO, CI - Last Documented Arterial Blood Pressure 111/62 - Exam GENERAL DESCRIPTION: Middle-age female lying in bed in no distress RESPIRATORY SYSTEM: Unlabored breathing , decreased breath sounds at bases HEART: S1 S2 regular rate and rhythm , ABDOMEN: Soft , no tenderness EXTREMITIES: Left leg did have some erythema which has decreased right leg BKA stump has slight more erythema today - Labs CBC & Chem 7: 09/01/24 08:38 09/04/24 05:29 Labs: Abnormal Lab Results - Last 24 Hours (Table) 09/03/24 09/03/24 09/04/24 Range/Units 17:20 20:06 05:29 Sodium 134 L (137-145) mmol/L Carbon Dioxide 20 L (22-30) mmol/L BUN 47 H (7-17) mg/dL Creatinine 1.61 H (0.52-1.04) mg/dL Glucose 107 H (74-99) mg/dL POC Glucose (mg/dL) 168 H 141 H (70-110) mg/dL 09/04/24 Range/Units 12:09 Sodium (137-145) mmol/L Carbon Dioxide (22-30) mmol/L BUN (7-17) mg/dL Creatinine (0.52-1.04) mg/dL Glucose (74-99) mg/dL POC Glucose (mg/dL) 129 H (70-110) mg/dL Assessment and Plan (1) Cellulitis of left foot Current Visit: Yes Status: Acute Code(s): L03.116 - CELLULITIS OF LEFT LOWER LIMB SNOMED Code(s): 56357440218817261 (2) Allergy to multiple antibiotics Current Visit: No Status: Acute Code(s): Z88.1 - ALLERGY STATUS TO OTHER ANTIBIOTIC AGENTS SNOMED Code(s): 244729911 (3) Diabetic ulcer of left foot Current Visit: No Status: Acute Code(s): E11.621 - TYPE 2 DIABETES MELLITUS WITH FOOT ULCER; L97.529 - NON-PRESSURE CHRONIC ULCER OTH PRT LEFT FOOT W UNSP SEVERITY SNOMED Code(s): 010494443 Plan: 1patient with a chronic nonhealing wound to the left foot plantar aspect now with evidence of left lower extremity cellulitis likely being treated for this episode of cellulitis and will need to cover for the gram-positive as well as gram-negative pathogen. 2patient with multiple antibiotic ALLERGIES that would limit the number of antibiotic safe to use 3local wound culture did grew MSSA and Prevotella 4-patient remains to be afebrile and white count last checked was normal, 5-patient has received adequate cefazolin and Flagyl while inpatient and consider 7-day course of oral Keflex and Flagyl on discharge, discussed with the medical team working on discharge Dictation was produced using [employer] dictation software. please excuse any grammatical, word or spelling errors. Time with Patient: Less than 30
--- NOTE | 2024-09-04 15:07 | P.DS ---
Providers Date of admission: 08/16/24 18:40 Discharge Diagnosis: Sepsis Septic shock Left lower extremity cellulitis Acute metabolic encephalopathy Acute transaminitis Hepatic encephalopathy Acute kidney injury Metabolic acidosis Hyperkalemia secondary to YOLA and acidosis Hyponatremia secondary to YOLA Right lower extremity DVT Acute hypoxemic respiratory failure Left foot ulcer Chest pain Hypothyroidism Type 2 diabetes Hospital Course: Patient is a 48-year-old female with a past medical history of right lower extremity DVT maintained on Eliquis, right BKA, and left TMA who presented to the emergency department with severe right lower extremity pain and recent falls from her wheelchair during transfers. She is a poor historian at the time of the interview. She is very lethargic and falls asleep while answering questionsAO x 2. She rarely opens her eyes without stimulus. During the interview she is noted to have increased respiratory effort, respiratory rate of 10-12, and small sluggish pupils. Narcan was administered and patient became more alert and respiratory rate improved to 16, AOx3, now able to complete full sentences but remains with eyes closed unless prompted to open. Now she states that she has been having bilateral lower extremity pain worse on the right with erythema and swelling of the right lower extremity. She reports compliance with her medications. She also reports some abdominal pain with a few episodes of vomitingappears nonbloody. She endorses pain in the right lower extremity. She denies chest pain, shortness of breath, current abdominal pain, nausea, vomiting. Femur x-ray unremarkable. Bilateral lower extremity venous Doppler showed positive right lower extremity DVT femoral vein to popliteal vein. EKG shows pacing by AICD. WBC 6.1, hemoglobin 10.1, platelets 179, PT 13.3, INR 1.3, sodium 136, potassium 4.6, CO2 20, creatinine 1.73, GFR 34, lactic acid 2.2, phosphorus 4.6, CRP 2.9, TSH 27.6. Afebrile, normotensive, tachycardic in the low 100s saturating well on room air. 08/18/24. Patient seen sleeping in bed. Still with eyes closed while conversing but will open them when prompted. States she's had no energy for days. Chest x-ray 08/17: Cardiomegaly and mild pulmonary vascular congestion. Brain CT 08/17: No acute intracranial process, old lacunar infarct left thalamus. Pulmonary perfusion scan 08/18: No mismatch defect is evident, intermediate probability for acute pulmonary embolism. WBCs 10.8, hemoglobin 10.4, sodium 134, potassium 5.5, creatinine 2.78, hemoglobin A1c 6.5, N-terminal proBNP 21.9, procalcitonin 1.22. 08/19/24. Patient seen and examined. Ultrasound abdomen done showed no evidence for acute abdominal process, hepatic steatosis. Ultrasound of kidneys done showed nonobstructing right renal calculus. Patient stated she feels better, still has pain in the right BKA stump. 08/20/24. Patient seen laying in bed. Preliminary wound culture shows presumptive Staph aureus. Patient appears to be struggling to find her words/Labs: WBCs 16.3, hemoglobin 11.8, potassium 5.6, creatinine 1.99, total bilirubin 2.4. ABG: pH 7.26, pCO2 31, pO2 84, HCO3 14. Patient with worsening prognosis, transfer to ICU. 08/21/24. Patient seen and examined. Blood work done this morning showed WBC 11.7, hematin 0.5, platelet count 252, sodium 126, potassium 4.7, BUN 53, creatinine 2.29 bilirubin 2.8, AST 2378, ALT 1144. Patient is lethargic, opening eyes, answers question appropriately 08/28/24 - Patient seen at bedside today. At bedside today patient's mentation is improved, with resolution of her confusion. Patient is aware of who she is, her birthday, and where she is currently. And her pleasant demeanor has returned. Patient has no acute complaints, stating that her chest pain from yesterday has resolved and she no longer has any. Per infectious disease recommendation while the patient is currently being treated with cefazolin and Flagyl, the patient will be able to finish therapy with oral antibiotics. 08/29/24 - Patient seen at bedside today. Patient's mentation continues to improve without any acute complaints at this moment. Per infectious disease recommendation, patient to continue cefazolin and Flagyl while inpatient and then transition to oral Keflex and Flagyl upon discharge. Per nephrology, patient to continue on IV Bumex with continued monitoring of her electrolytes. Physical therapy saw and evaluated the patient yesterday (08/28) and stated that they will continue to see the patient once daily while in the hospital. Will continue on IV diuretics, as patient still has some edema, while improving, still present. New labs -sodium 131, potassium 4.0, BUN 27, creatinine 0.85 08/30/2024: Patient seen at bedside. No significant overnight events. Patient reports she is feeling well this morning. Cellulitis continues to regress from initial marked line. 08/31/24 - Patient seen at bedside. No significant overnight events. Patient remains confused, with fluctuating intervals of confusion and being fully alert and oriented. Patient reports she was feeling well this morning. Cellulitis continues to regress and show improvements. Entresto to be held, per nephrology's recommendation. Patient's BUN increased to 28.9 as compared to 24.9 yesterday (08/30) and creatinine increased to 1.4 as compared to 1.1 yesterday (08/30). Patient will be monitored over the next couple of days for change in kidney function. 09/01/24 - Patient seen at bedside today. No significant overnight events. Patient remains confused, with fluctuating intervals of confusion and being fully alert and oriented. Per nephrology's recommendation Entresto was held, continue on IV Bumex, and decrease metoprolol (if heart rate is further elevated metoprolol will be increased back to 25 twice daily). Patient's labs (CBC, BMP) are currently pending at the time of dictation, monitoring BUN and creatinine as they had began to increase yesterday, additionally, magnesium phosphorus labs are currently pending. She is currently in no distress sitting comfortably in bed resting. Patient continues to saturate in the high 90%'s on 2 L nasal cannula with respiratory to 16, blood pressure 100/64 with a heart rate of 95. Patient continues to receive IV cefazolin. Her BUN today is 35, increased from 28.9 yesterday, and her creatinine is 1.03 which is down from 1.4 yesterday. Additionally, her magnesium and phosphorous were both within normal limits. She does remain confused, as she continues to know who she is, her birthday and that she is in the hospital (although stating she is in the "ER" as opposed to where she is presently), however she does not know the year and provides incoherent answers without any particular reasoning. 09/02/24. Patient seen and examined. Patient continues to be confused, mental status waxes and wanes, currently alert to self place and date but will say something odd during the interview 09/03/24. Patient seen and examined. Continues to be confused She is alert and oriented to person, place. Does not know what month it is. 09/04/2024. Patient seen and examined at bedside. Was accompanied by his son. Patient is AAOx3. IV antibiotics converted to Flagyl 500 mg PO TID for 5 days and Keflex 500 mg PO TID daily for 5 days. Prescribed topical nystatin and Protonix 40 mg PO BID. Prescribed new home med of Metoprolol succinate 25 mg PO daily. Prescribed Seroquel 25 mg PO at bedtime as needed for agitation. Prescribed Synthroid 50 mcg PO daily. She is being discharged to SNF/ECF. Vital signs reviewed and stable. Physical Exam: Vital signs are reviewed. General: No acute distress. Obese. Arousable, alert and oriented HEENT: Head exam is unremarkable. Lateral third of eyebrows thinning. EOMI bilaterally. ACs patent. Nares patent. Lungs: Bilateral breath sounds present; no rhonchi, wheezes, or rales. Heart: Rate and rhythm are regular. S1-S2 present. No murmur/rub/gallops. Abdomen: Soft, non-tender, non-distended. Bowel sounds present. Extremities: Right BKA with erythema. Left TMA with ulcer on bottom now covered with gauze and LLE cellulitis and warmth. Psych: Normal affect and mood. Cooperative. A total of 35 minutes of time were spent preparing this complex discharge summary. Patient was discharge on September 04, 2024 at 11:53. Attestation I have seen and examined this patient with my resident , discussed the same with the resident/ANTONIA, and agree with the dictator's assessment and plan as written Dr. Yash davidson Expected date of discharge: 09/04/24 Attending physician: Brittany Villafuerte Consults: 08/17/24 08:39 Consult Physician Routine Consulting Provider: Miguel Cazares Consult Reason/Comments: acute respiratory failure Do you want consulting provider notified?: Yes Consult Physician Routine Consulting Provider: Casi Blake Consult Reason/Comments: left foot ulcer and LLE cellulitis Do you want consulting provider notified?: Yes 08/17/24 12:21 Consult Physician Routine Consulting Provider: Judson Stevens Consult Reason/Comments: Right lower extremity DVT on Eliquis Do you want consulting provider notified?: Yes 08/19/24 09:48 Consult Physician Routine Consulting Provider: Niki Arvizu Consult Reason/Comments: YOLA Do you want consulting provider notified?: Yes 08/20/24 15:02 Consult Physician Stat Consulting Provider: Kinsey Dawn Consult Reason/Comments: ICU management Do you want consulting provider notified?: Already Contacted 09/03/24 07:44 Consult Physician Routine Consulting Provider: Francois Calvin Consult Reason/Comments: CHF, high heart rate Do you want consulting provider notified?: Yes Primary care physician: Dylan Causey Patient Condition at Discharge: Serious Plan - Discharge Summary Discharge Rx Participant: Yes New Discharge Prescriptions: New metroNIDAZOLE [Flagyl] 500 mg PO TID 5 Days #15 tab Cephalexin [Keflex] 500 mg PO TID 5 Days #15 cap Nystatin 100,000 Unit/gm Powd [Mycostatin Powder] 1 applic TOPICAL BID each Pantoprazole [Protonix] 40 mg PO AC-BID tab Metoprolol Succinate (ER) [Toprol XL] 25 mg PO DAILY 30 Days #30 tab QUEtiapine [SEROquel] 25 mg PO HS PRN tab PRN Reason: Agitation Levothyroxine Sodium [Synthroid] 50 mcg PO DAILY@0630 tab Continue Insulin Glargine [Lantus Vial] 40 unit SQ HS Bumetanide [BUMEX] 2 mg PO DAILY Ipratropium-Albuterol Nebulize [Duoneb 0.5 mg-3 mg/3 ml Soln] 3 ml INHALATION RT-TID PRN PRN Reason: Shortness Of Breath Apixaban [Eliquis] 5 mg PO BID Gabapentin 600 mg PO TID Lacosamide [Vimpat] 50 mg PO BID Discontinued Pantoprazole [Protonix] 40 mg PO DAILY Sacubitril/Valsartan [Entresto 49 mg-51 mg Tablet] 1 tab PO BID ALPRAZolam [Xanax] 0.5 mg PO BID Discharge Medication List Insulin Glargine [Lantus Vial] 40 unit SQ HS 04/30/19 [History] Apixaban [Eliquis] 5 mg PO BID 04/19/24 [History] Bumetanide [BUMEX] 2 mg PO DAILY 04/19/24 [History] Gabapentin 600 mg PO TID 08/16/24 [History] Ipratropium-Albuterol Nebulize [Duoneb 0.5 mg-3 mg/3 ml Soln] 3 ml INHALATION RT-TID PRN 08/16/24 [History] Lacosamide [Vimpat] 50 mg PO BID 08/16/24 [History] Cephalexin [Keflex] 500 mg PO TID 5 Days #15 cap 09/04/24 [Rx] Levothyroxine Sodium [Synthroid] 50 mcg PO DAILY@0630 tab 09/04/24 [Rx] Metoprolol Succinate (ER) [Toprol XL] 25 mg PO DAILY 30 Days #30 tab 09/04/24 [Rx] Nystatin 100,000 Unit/gm Powd [Mycostatin Powder] 1 applic TOPICAL BID each 09/04/24 [Rx] Pantoprazole [Protonix] 40 mg PO AC-BID tab 09/04/24 [Rx] QUEtiapine [SEROquel] 25 mg PO HS PRN tab 09/04/24 [Rx] metroNIDAZOLE [Flagyl] 500 mg PO TID 5 Days #15 tab 09/04/24 [Rx] Follow up Appointment(s)/Referral(s): Dylan Causey MD [Primary Care Provider] - 1-2 days Adonay Amos DO [STAFF PHYSICIAN] - 2 Weeks [facility], [NON-STAFF] - 1 Week Discharge Disposition: TRANSFER TO SNF/ECF
[2024-09-04 17:23] LABS: Glucose,Whole Blood 128 mg/dL (70-110)
[2024-09-04 20:32] LABS: Glucose,Whole Blood 183 mg/dL (70-110)
[2024-09-05 02:21] VITALS: TEMP 97.9
[2024-09-05 07:25] LABS: Glucose,Whole Blood 95 mg/dL (70-110)
[2024-09-05 08:13] VITALS: RESP 16
[2024-09-05 08:21] VITALS: BP 99/68
--- NOTE | 2024-09-05 10:06 | P.PN ---
Subjective HISTORY OF PRESENT ILLNESS: This is a 48-year-old female with a past medical history significant for nonischemic cardiomyopathy, congestive heart failure, right BKA, chronic kidney disease, diabetes, and DVT. Patient follows in the office with Dr. Lam but has not been seen in the office since October 2022. We have been asked to see the patient in consultation for tachycardia and congestive heart failure. Patient examined at the bedside. Patient is confused at the time of examination and unable to provide thorough history. Patient is admitted to the hospital secondary to left lower extremity cellulitis, sepsis, acute kidney injury, and encephalopathy. At the time of examination, the patient denies any chest pain or shortness of breath. She is mildly tachycardic this morning with a heart rate around [id number]. Blood pressure 108/78. Patient was previously on Entresto on an outpatient basis. However this has been held secondary to acute kidney injury. DIAGNOSTICS: - EKG reveals regular paced rhythm - Chest xray from 08/26/2024 reveals interval removal of right IJ central venous line. No pneumothorax. Cardiomegaly with multilead pacemaker/AICD redemonstrated. Compared to prior there is improved aeration of left perihilar infiltrate or atelectasis however left lung base and hemodiaphragm remain poorly visualized. Increased right perihilar infiltrates.. - Laboratory data: WBC 6.6. Hemoglobin 11.0. Platelet count 235. Sodium 134. Potassium 4.9. BUN 42. Creatinine 1.38. - Current home cardiac medications include Eliquis 5 mg twice a day, Bumex 2 mg daily, Entresto 49-51 mg twice a day - Most recent echocardiogram obtained in January 2024 revealing ejection fraction 15 to 20%, severe pulmonary hypertension, moderate mitral regurgitation, moderate to severe tricuspid regurgitation - Cardiac catheterization history: 10/2021 revealing normal coronary arteries 09/04/2024 Patient examined this morning at the bedside. Patient remains somewhat confused at the time of examination. Patient currently denies chest pain or pressure. She denies shortness of breath. She remains on IV Bumex 1 mg daily. Creatinine today slightly worse at 1.61. 09/05/2024 Patient examined this morning the bedside. Patient currently denies chest pain or pressure. She denies shortness of breath. She is receiving her breathing treatment at the time of examination. Vital signs are stable. Most recent blood pressure 99/68. Labs from this morning are currently pending. PHYSICAL EXAM: VITAL SIGNS: Reviewed. GENERAL: Well-developed in no acute distress. HEENT: Head is normocephalic. Pupils are equal, round. Sclerae anicteric. Mucous membranes of the mouth are moist. Neck supple. No JVD or thyromegaly LUNGS: Respirations even and unlabored. Lungs essentially clear to auscultation bilaterally. HEART: Regular rate and rhythm. S1 and S2 heard. ABDOMEN: Soft. Nondistended. Nontender. EXTREMITIES: Normal range of motion. No clubbing or cyanosis. Peripheral pulses intact. Right BKA noted. Left lower extremity with dressing noted. 2+ edema of left lower extremity. NEUROLOGIC: Awake and alert. ASSESSMENT: Left lower extremity cellulitis Sepsis Acute metabolic encephalopathy Sinus tachycardia Acute on chronic heart failure with reduced EF History of nonischemic cardiomyopathy, 15 to 20% History of ICD implantation, [employer] Right lower extremity DVT, diagnosed July 2024 Severe pulmonary hypertension Normal coronary arteries by cardiac catheterization 10/2021 History of nonhealing ulcer status post right BKA Acute kidney injury PLAN: Awaiting labs from this morning No need to repeat echocardiogram as this was performed in January 2024 Continue IV diuretics per nephrology Daily weights, accurate intake and output, and monitoring of kidney function Continue metoprolol succinate 25 mg daily Patient would benefit from addition of Entresto, Farxiga, and Aldactone. We will continue to monitor kidney function and slowly begin these medications when appropriate. Patient is stable for discharge from a cardiac standpoint Further recommendations pending patient course Nurse practitioner note has been reviewed by physician. Signing provider agrees with the documented findings, assessment, and plan of care documented by COMMERCIAL LOAN COORDINATOR as a scribe. Objective - Vital Signs Vital signs: Vital Signs Temp 97.9 F 09/05/24 07:17 Pulse 88 09/05/24 08:21 Resp 16 09/05/24 08:21 BP 99/68 09/05/24 07:17 Pulse Ox 98 09/05/24 08:10 FiO2 100 08/20/24 18:00 Intake & Output 09/04/24 09/05/24 09/05/24 18:59 06:59 18:59 Intake Total 480 600 Balance 480 600 Weight 162.3 kg Intake: Oral 480 600 Other: Voiding Method Diaper Diaper Incontinent Incontinent # Voids 2 # Bowel Movements 1 ABP, PAP, CO, CI - Last Documented Arterial Blood Pressure 111/62 - Labs CBC & Chem 7: 09/01/24 08:38 09/04/24 05:29 Labs: Abnormal Lab Results - Last 24 Hours (Table) 09/04/24 09/04/24 09/04/24 Range/Units 12:09 17:04 20:31 POC Glucose (mg/dL) 129 H 128 H 183 H (70-110) mg/dL
--- NOTE | 2024-09-05 10:44 | P.PN ---
Subjective Patient seen in follow-up for acute kidney injury. Renal function worse with creatinine 1.6 yesterday. Admits to good urine output. Oral intake is good. Vital signs are stable. General: No acute distress. HEENT: Head exam is unremarkable. On nasal cannula. LUNGS: No audible rhonchi or wheezes. HEART: Regular rate and rhythm. ABDOMEN: Obese, nontender. EXTREMITITES: Right BKA noted. Transmetatarsal amputation on the left noted. Erythema noted. 1+ edema. Objective - Vital Signs Vital signs: Vital Signs Temp 97.9 F 09/05/24 07:17 Pulse 88 09/05/24 08:21 Resp 16 09/05/24 08:21 BP 99/68 09/05/24 07:17 Pulse Ox 98 09/05/24 08:10 FiO2 100 08/20/24 18:00 Intake & Output 09/04/24 09/05/24 09/05/24 18:59 06:59 18:59 Intake Total 480 600 355 Balance 480 600 355 Weight 162.3 kg Intake: Oral 480 600 355 Other: Voiding Method Diaper Diaper Incontinent Incontinent # Voids 2 # Bowel Movements 1 ABP, PAP, CO, CI - Last Documented Arterial Blood Pressure 111/62 - Labs CBC & Chem 7: 09/01/24 08:38 09/04/24 05:29 Labs: Abnormal Lab Results - Last 24 Hours (Table) 09/04/24 09/04/24 09/04/24 Range/Units 12:09 17:04 20:31 POC Glucose (mg/dL) 129 H 128 H 183 H (70-110) mg/dL Assessment and Plan Assessment: 1. Acute kidney injury secondary to ATN secondary to septic shock. Baseline creatinine near 1. Renal function worse -creatinine 1.6 yesterday. Nonoliguric. No hydronephrosis noted on kidney ultrasound. Left kidney not visualized due to patient body habitus. 2. Hyperkalemia due to YOLA and acidosis. Improved. Entresto held. 3. AGMA from lactic acidosis with non-anion gap metabolic acidosis from IVF with respiratory acidosis. Status post bicarb drip. Improved. 4. CKD stage IIIa 2/2 cardiorenal syndrome. Cr baseline 1-1.1 5. CHFrEF (15-20%). 6. Hypervolemic hyponatremia. Stable. 7. LLE cellulitis with DVT on antibiotics. Also on anticoagulation. 8. Type 2 Diabetes 9. Hypomagnesemia from diuresis. On oral magnesium oxide. Better. 10. Sinus tachycardia maintained on metoprolol. Heart rate better controlled. Plan: Maintain IV Bumex. Encouraged oral intake. Maintain fluid restriction. Avoid nephrotoxins. Continue to monitor renal function and urine output. Stopped Motrin. Morning labs pending. Awaits discharge to rehab facility. Repeat BMP and magnesium level 2 to 3 days postdischarge.
[2024-09-05 10:57] LABS: BUN/Creat Ratio 24.37 Ratio (12.00-20.00); Blood Urea Nitrogen 46.3 mg/dL (9.0-27.0); Calcium 8.8 mg/dL (8.7-10.3); Carbon Dioxide 23.2 mmol/L (21.6-31.8); Chloride 98 mmol/L (96-109); Glucose 107 mg/dL (70-110); Potassium 4.9 mmol/L (3.5-5.5); Sodium 135 mmol/L (135-145)
--- NOTE | 2024-09-05 11:52 | P.PN ---
Subjective Progress Note Date: 09/05/24 The patient is seen today August 27, 2024 in follow-up on the regular medical floor. She is currently awake and alert in no acute distress. She does remain confused at times. She is currently maintaining good O2 saturations in the 90s on 2 L/min per nasal cannula. She remains on antibiotics in the form of cefazolin and Flagyl. She was positive for MSSA in the wound of her left foot. Chest x-ray reveals no evidence of pneumothorax. There is cardiomegaly. There is improved aeration of left perihilar infiltrate or atelectasis. Sodium 134. Potassium 4.2. Bicarb 23. BUN 27. Creatinine 1.0. Glucose 142. Continued on DuoNeb inhalations. Anticoagulated with Eliquis. Protonix for GI prophylaxis. The patient is seen today August 28, 2024 in follow-up on the regular medical floor. She is currently sitting up in bed having breakfast. Awake and alert in no acute distress. Denies any worsening shortness of breath, cough or congestion. Maintaining O2 saturations in the mid 90s on 2 L/min per nasal cannula. She has been afebrile. Hemodynamically stable. Denies any worsening lower extremity pain. Left foot cultures were positive for MSSA and Prevotella species. She remains on cefazolin and Flagyl. She remains on bronchodilators. Continued on IV diuretics. Anticoagulated with Eliquis. The patient is seen today August 29, 2024 in follow-up on the regular medical floor. She is awake and alert in no acute distress. She is maintaining good O2 saturations in the 90s on 2 L/min per nasal cannula. She denies any worsening shortness of breath, cough or congestion. Left foot cultures were positive for MSSA and Prevotolla species. Sodium 131. Potassium 4.0. Bicarb 27. BUN 27. Creatinine 0.85. Glucose 112. She remains on cefazolin and Flagyl. Anticoagulated with Eliquis. Remains on IV diuretics. The patient is seen today August 30, 2024 in follow-up on the regular medical floor. She is currently sitting up in bed having breakfast. Awake and alert in no acute distress. Denies any worsening shortness of breath, cough or congestion. She is maintaining O2 saturations in the 90s on 2 L/min per nasal cannula. She remains on cefazolin and Flagyl per ID service. She remains on IV Bumex. Sodium 133. Potassium 4.7. Bicarb 26. BUN 25. Creatinine 1.1. Glucose 118. The patient is seen today August 31, 2024 in follow-up on the regular medical floor. She is awake and alert in no acute distress. Sitting up in bed having breakfast. Denies any shortness of breath, cough or congestion. She is maintaining good O2 saturation in the 90s on 2 L/min per nasal cannula. She has been afebrile. Hemodynamically stable. Sodium 134. Potassium 4.5. Bicarb 26. BUN 29. Creatinine 1.4. Glucose 125. She remains on cefazolin and Flagyl. Continued on bronchodilators. Anticoagulated with Eliquis. The patient is seen today resting comfortably in bed. Awake and alert in no acute distress. Maintaining good O2 saturations in the 90s on 2 L/min per nasal cannula. She has been afebrile. Hemodynamically stable. White count 6.6. Hemoglobin 11.0. Platelets 235. Sodium 132. Potassium 4.3. Bicarb 23. BUN 35. Creatinine 1.03. Glucose 101. She remains on cefazolin and Flagyl. Continued on bronchodilators. Anticoagulated with Eliquis. She remains on IV Bumex. Currently in a negative balance. The patient is seen today September 02, 2024 in follow-up on the regular medical floor. She is currently sitting up in bed. Awake and alert in no acute distress. Denies any shortness of breath, cough or congestion. She is maintaining O2 saturations in the 90s on 2 L/min per nasal cannula. She has been afebrile. Hemodynamically stable. Sodium 134. Potassium 4.7. Bicarb 26. BUN 34. Creatinine 1.4. Glucose 125. She is continued on Kefzol, Flagyl. Remains on bronchodilators. Anticoagulated with Eliquis. The patient is seen today September 03, 2024 in follow-up on the regular medical floor. She is awake and alert in no acute distress. She remains confused at times. Resting comfortably in bed. Denies any shortness of breath, cough or congestion. She is maintaining good O2 saturations in the 90s on air. She has been afebrile. Hemodynamically stable. Sodium 134. Potassium 4.9. Bicarb 24. BUN 42. Creatinine 1.38. Glucose 119. She is continued on DuoNeb inhalations. Remains on cefazolin and Flagyl. Continued on IV Bumex. Anticoagulated with Eliquis. The patient is seen today September 04, 2024 in follow-up on the regular medical floor. She is awake and alert in no acute distress. Sitting up in bed. Denies any worsening shortness of breath, cough or congestion. Continued O2 saturations in the 90s on room air. Sodium 134. Potassium 4.7. Bicarb 20. BUN 47. Creatinine 1.61. Glucose 107. She remains on IV Bumex. Continued on bronchodilators. Anticoagulated with Eliquis. Remains on antibiotics in the form of cefazolin and Flagyl. The patient is seen today September 05, 2024 in follow-up on the regular medical floor. She is awake and alert in no acute distress. Resting in bed. No worsening shortness of breath, cough or congestion. She is maintaining good O2 saturations in the 90s on 2 L/min per nasal cannula. She remains on diuretics. Anticoagulated with Eliquis. Continued on bronchodilators. Continued on cefazolin and Flagyl. Sodium 135. Potassium 4.9. Bicarb 23. BUN 46. Creatinine 1.9. Glucose 107. Objective - Vital Signs Vital signs: Vital Signs Temp 97.9 F 09/05/24 07:17 Pulse 88 09/05/24 08:21 Resp 16 09/05/24 08:21 BP 99/68 09/05/24 07:17 Pulse Ox 98 09/05/24 08:10 FiO2 100 08/20/24 18:00 Intake & Output 09/04/24 09/05/24 09/05/24 18:59 06:59 18:59 Intake Total 480 600 355 Balance 480 600 355 Weight 162.3 kg Intake: Oral 480 600 355 Other: Voiding Method Diaper Diaper Diaper Incontinent Incontinent Incontinent # Voids 2 1 # Bowel Movements 1 1 ABP, PAP, CO, CI - Last Documented Arterial Blood Pressure 111/62 - Exam General Appearance: An alert pleasant 48-year-old female, in no acute distress, on 2 L nasal cannula. HEENT examination is grossly unremarkable. Mucous membranes are moist. No oral lesions. Neck supple. Full range of motion. No adenopathy thyromegaly or neck vein distention. Cardiovascular examination reveals regular rhythm rate. S1-S2 normal. No S3 or S4. No discernible murmur noted. Sounds are distant. Lungs reveal mostly clear breath sounds. Minimal rhonchi. Crackles in the posterior bases.. Abdomen soft, and obese. Bowel sounds are noted. No mass. Extremities revealed a right below the knee amputation, and transmetatarsal amputation on the left. The patient has a deep wound along the plantar aspect of the transmetatarsal amputation left lower extremity. Dressing in place. Right lower extremity has a below-knee amputation the extremity is less swollen. Cellulitis is improving. Skin is without rash or lesion. Wound in the left foot at the site of a previous transmetatarsal amputation was noted. No active drainage. Bone is exposed. Neurologic examination difficult to assess. No focal neurological deficit. - Labs CBC & Chem 7: 09/01/24 08:38 09/05/24 05:26 Labs: Abnormal Lab Results - Last 24 Hours (Table) 09/04/24 09/04/24 09/04/24 Range/Units 12:09 17:04 20:31 Anion Gap (4.00-12.00) mmol/L BUN (9.0-27.0) mg/dL Creatinine (0.6-1.5) mg/dL Est GFR (CKD-EPI) (>=60) BUN/Creatinine Ratio (12.00-20.00) Ratio POC Glucose (mg/dL) 129 H 128 H 183 H (70-110) mg/dL 09/05/24 Range/Units 05:26 Anion Gap 13.80 H (4.00-12.00) mmol/L BUN 46.3 H (9.0-27.0) mg/dL Creatinine 1.9 H (0.6-1.5) mg/dL Est GFR (CKD-EPI) 32 L (>=60) BUN/Creatinine Ratio 24.37 H (12.00-20.00) Ratio POC Glucose (mg/dL) (70-110) mg/dL Assessment and Plan Assessment: Septic shock, likely secondary to soft tissue infection/cellulitis in addition to a wound in the left foot at the site of a transmetatarsal amputation. The patient has a chronic stage IV ulcer that has no active drainage at this point in time. Cultures were noted and it is positive for Staph aureus and Prevotella. Currently on cefazolin and Flagyl Acute lactic acidosis, improved Severe anion gap metabolic acidosis, improved Acute hyperkalemia, improved , Acute hypoglycemia, likely secondary to above, improved Altered mentation secondary to above, improved Cellulitis of the lower extremities bilaterally, currently on a combination of IV cefazolin and Flagyl, improving Acute on chronic kidney injury with secondary oliguria, consider underlying ATN, renal function improved Right lower extremity DVT, on Eliquis Severe cardiomyopathy with an ejection fraction of 10 to 15% Severe pulmonary hypertension, likely group 2/3 pulmonary hypertension with severe dilatation of the RV Severe peripheral vascular disease, prior right below the knee amputation, and left transmetatarsal amputation. History of COPD/asthma Diabetes mellitus, with ongoing episodes of hypoglycemia History of CVA. Coronary artery disease with prior history of myocardial infarction History of hypertension History of DVT Obesity Multiple drug-resistant infections History of pacemaker implantation/defibrillator Plan: The patient was seen and evaluated Labs and medications reviewed Antibiotics per ID service Anticoagulated with Eliquis Plan is for [facility] at discharge This patient was seen independently by the pulmonary nurse practitioner addressing pulmonary issues I have personally seen and examined the patient, performed the documentation and the assessment and plan as written. Number of minutes spent on the visit: 22.
[2024-09-05 11:56] VITALS: PULSE 80
--- NOTE | 2024-09-05 12:42 | P.PN ---
Subjective Progress Note Date: 09/05/24 Principal diagnosis: Reason for follow-up is left diabetic foot ulcer and cellulitis Patient is a 48-year female with multiple comorbidities including diabetes mellitus the patient did have a right diabetic foot infection requiring right below the amputation and a chronic nonhealing wound to the left foot to be getting to the hospital with cellulitis to the left lower extremity and wound infection. On today's evaluation that is 09/05/2024, Patient is afebrile patient is currently on 2 L of oxygen and denies having any shortness of breath, the patient denies any chest pain or any worsening cough, the patient denies any nausea vomiting did not have any abdominal pain and no diarrhea, no significant pain to the lower extremity. Patient creatinine is up to 1.9 Objective - Vital Signs Vital signs: Vital Signs Temp 97.9 F 09/05/24 07:17 Pulse 80 09/05/24 11:55 Resp 16 09/05/24 11:55 BP 99/68 09/05/24 07:17 Pulse Ox 98 09/05/24 08:10 FiO2 100 08/20/24 18:00 Intake & Output 09/04/24 09/05/24 09/05/24 18:59 06:59 18:59 Intake Total 480 600 355 Balance 480 600 355 Weight 162.3 kg Intake: Oral 480 600 355 Other: Voiding Method Diaper Diaper Diaper Incontinent Incontinent Incontinent # Voids 2 1 # Bowel Movements 1 1 ABP, PAP, CO, CI - Last Documented Arterial Blood Pressure 111/62 - Exam GENERAL DESCRIPTION: Middle-age female lying in bed in no distress RESPIRATORY SYSTEM: Unlabored breathing , decreased breath sounds at bases HEART: S1 S2 regular rate and rhythm , ABDOMEN: Soft , no tenderness EXTREMITIES: Left leg did have some erythema which has decreased right leg BKA stump has slight more erythema today - Labs CBC & Chem 7: 09/01/24 08:38 09/05/24 05:26 Labs: Abnormal Lab Results - Last 24 Hours (Table) 09/04/24 09/04/24 09/05/24 Range/Units 17:04 20:31 05:26 Anion Gap 13.80 H (4.00-12.00) mmol/L BUN 46.3 H (9.0-27.0) mg/dL Creatinine 1.9 H (0.6-1.5) mg/dL Est GFR (CKD-EPI) 32 L (>=60) BUN/Creatinine Ratio 24.37 H (12.00-20.00) Ratio POC Glucose (mg/dL) 128 H 183 H (70-110) mg/dL Assessment and Plan (1) Cellulitis of left foot Status: Acute Code(s): L03.116 - CELLULITIS OF LEFT LOWER LIMB SNOMED Code(s): 44209503711328556 (2) Allergy to multiple antibiotics Status: Acute Code(s): Z88.1 - ALLERGY STATUS TO OTHER ANTIBIOTIC AGENTS SNOMED Code(s): 289299131 (3) Diabetic ulcer of left foot Status: Acute Code(s): E11.621 - TYPE 2 DIABETES MELLITUS WITH FOOT ULCER; L97.529 - NON-PRESSURE CHRONIC ULCER OTH PRT LEFT FOOT W UNSP SEVERITY SNOMED Code(s): 499851408 Plan: 1patient with a chronic nonhealing wound to the left foot plantar aspect now with evidence of left lower extremity cellulitis likely being treated for this episode of cellulitis and will need to cover for the gram-positive as well as gram-negative pathogen. 2patient with multiple antibiotic ALLERGIES that would limit the number of antibiotic safe to use 3local wound culture did grew MSSA and Prevotella 4-patient remains to be afebrile and white count last checked was normal, 5-patient has received adequate cefazolin and Flagyl while inpatient discussed with admitting team short course of oral Keflex and Flagyl on discharge for local care to continue with emphasis on packing of the wound and close outpatient follow-up Dictation was produced using [facility] dictation software. please excuse any grammatical, word or spelling errors. Time with Patient: Less than 30
--- NOTE | 2024-09-05 14:53 | P.PN ---
Subjective Progress Note Date: 09/05/24 Subjective: Patient seen and examined at bedside. No acute events overnight. Authorization was approved, patient awaiting confirmation from insurance company to be discharged to SNF. She presents with no acute complaints. Pertinent positives and negatives as discussed above, a complete review of systems was performed and all other systems are negative. Physical Exam: General: No acute distress. Arousable, alert and oriented HEENT: Head exam is unremarkable. Lateral third of eyebrows thinning. EOMI bilaterally. ACs patent. Nares patent. Lungs: Bilateral breath sounds present; no rhonchi, wheezes, or rales. Heart: Rate and rhythm are regular. S1-S2 present. No murmur/rub/gallops. Abdomen: Soft, nontender, nondistended. Bowel sounds present. Extremities: Right BKA with erythema. Left TMA with ulcer on bottom now covered with gauze and LLE cellulitis and warmth. Psych: Normal affect and mood. Cooperative. Assessment/Plan: Sepsis, resolved Septic shock, resolved Left lower extremity cellulitis - ID note reviewed. continue with IV cefazolin and Flagyl while inpatient, and a short course 7-day course of oral Keflex and Flagyl on discharge Tachycardia, resolved - ME 107. has been having mutliple runs of tachycardia since admission - cardiology consulted - placed on metoprolol tartrate 25 mg PO Daily - cardiology note reviewed. suggesting patient would benefit with addition of Entresto, Farxiga, and Aldactone, repeat kidney function - cardiac monitoring Acute metabolic encephalopathy, resolved - Urinalysis negative - Delirium precaution - call family to determine baseline Acute toxic metabolic encephalopathy secondary to medications Delirium precautions Acute transaminitis, improved Hepatic encephalopathy Avoid hepatotoxic agents Monitor LFTs Acute kidney injury, improving Metabolic acidosis, resolved Hyperkalemia due to YOLA and acidosis, resolved Hyponatremia secondary to YOLA, improving Creatinine 1.38 (baseline around 1) Continue IV fluids Avoid nephrotoxic agents montior renal function and urine output Nephrology note reviewed. Maintain IV Bumex, maintain fluid restriction Right lower extremity deep vein thrombosis Continue Eliquis Surgery consultedno surgical intervention at this time Heme/onc consulted-restarted Eliquis Acute hypoxemic respiratory failure Continue oxygen supplementation Aggressive bronchopulmonary hygiene Continue breathing treatments Pulmonary following Left foot ulcer Absorptive silver, saline moist gauze, dry gauze, rolled gauze and secured with paper tape change Tuesday, Tuesday, Tuesday per wound care Chest pain, resolved Trend troponin. Troponin times two 0.051, 0.044, respectively Hypothyroidism Continue levothyroxine 50 mcg daily Diabetes mellitus type 2 Monitor glucose Insulin sliding scale DVT prophylaxis: Eliquis GI prophylaxis: Protonix 40 mg daily Chronic conditions: Recurrent DVTs, systolic CHF, chronic kidney disease stage IIIb, diabetes mellitus type 2, seizures, history of AICD placement, history of cardiac catheterizations. Attestation I have seen and examined this patient with my resident , discussed the same with the resident/ANTONIA, and agree with the dictator's assessment and plan as written Patient waiting on bed availability, patient med rec already done, discharge orders in Dr. Yash davidson Objective - Vital Signs Vital signs: Vital Signs Temp 97.9 F 09/05/24 07:17 Pulse 80 09/05/24 11:55 Resp 16 09/05/24 11:55 BP 99/68 09/05/24 07:17 Pulse Ox 98 09/05/24 08:10 FiO2 100 08/20/24 18:00 Intake & Output 09/04/24 09/05/24 09/05/24 18:59 06:59 18:59 Intake Total 480 600 355 Balance 480 600 355 Weight 162.3 kg Intake: Oral 480 600 355 Other: Voiding Method Diaper Diaper Diaper Incontinent Incontinent Incontinent # Voids 2 1 # Bowel Movements 1 1 ABP, PAP, CO, CI - Last Documented Arterial Blood Pressure 111/62 - Labs CBC & Chem 7: 09/01/24 08:38 09/05/24 05:26 Labs: Abnormal Lab Results - Last 24 Hours (Table) 09/04/24 09/04/24 09/05/24 Range/Units 17:04 20:31 05:26 Anion Gap 13.80 H (4.00-12.00) mmol/L BUN 46.3 H (9.0-27.0) mg/dL Creatinine 1.9 H (0.6-1.5) mg/dL Est GFR (CKD-EPI) 32 L (>=60) BUN/Creatinine Ratio 24.37 H (12.00-20.00) Ratio POC Glucose (mg/dL) 128 H 183 H (70-110) mg/dL
--- NOTE | 2024-09-18 18:52 | CDI ---
Documentation Clarification Form Date: 09/18/2024 06:40:58 PM From: Agatha Bone Phone: Admit Date: 08/16/2024 06:40:00 PM Patient Name: Flaca Hinson Visit Number: [id number] Discharge Date: 09/05/2024 12:15:00 PM ATTENTION: The Clinical Documentation Specialists (CDI) and [facility] Coding Staff appreciate your assistance in clarifying documentation. Please respond to the clarification below the line at the bottom and electronically sign. The CDI & [facility] Coding staff will review the response and follow-up if needed. Please note: Queries are made part of the Legal Health Record. If you have any questions, please contact the author of this message via ITS. Doctor/Provider: Yash Hill There is documentation of a wound left heel ulcer per Progress Note 08/26. Additional specificity regarding the etiology and severity of the wound is requested. Patient history/risk factors: 48yo F, nonhealingulcerationwith fat layerexposureleft plantar foot, DMII foot ulcer, cold left foot d/t pressors, LLE PAD & cellulitis, sepsis, NICM, SAMANTHA enceph, ATN on CKD, PHTN, RLE DVT, w Hx DVT, morbid obesity, Hx BKA, left TMA, uncontrolled IDDMII, seizure disorder Clinical Indicators: woundcultures of theleft heel ulcershowing prevotella species andstaphylococcusaureus Wound assessment: Treatment: Patient has been transferred out of the ICU. Continue IV fluids. Monitor CBC. Monitor CMP. Monitor vitals. Infectious diseasefollowing Please clarify the etiology and severity of the wound: Etiology: [x ] Non-pressure chronic ulcer due to diabetes [ ] Non-pressure chronic ulcer due to arterial insufficiency [ ] Other, Please specify [ ] Unable to determine Severity: [ x ] With fat layer exposed [ ] With necrosis of muscle [ ] Other, Please specify [ ] Unable to determine (Template Last Revised: January 2021) MTDD
--- NOTE | 2024-09-18 19:13 | CDI ---
Documentation Clarification Form Date: 09/18/2024 06:52:51 PM From: Agatha Bone Phone: Admit Date: 08/16/2024 06:40:00 PM Patient Name: Flaca Hinson Visit Number: [id number] Discharge Date: 09/05/2024 12:15:00 PM ATTENTION: The Clinical Documentation Specialists (CDI) and [facility] Coding Staff appreciate your assistance in clarifying documentation. Please respond to the clarification below the line at the bottom and electronically sign. The CDI & [facility] Coding staff will review the response and follow-up if needed. Please note: Queries are made part of the Legal Health Record. If you have any questions, please contact the author of this message via ITS. Doctor/Provider: Melquiades Mtz CKD IIIa-b is documented per Progress Notes. Additional clarification regarding the stage of CKD is requested. History/Risk Factors: 48yo F, sepsis, nonhealing ulceration with fat layer exposure left plantar foot, DMII foot ulcer, cold left foot d/t pressors, LLE PAD & cellulitis, sepsis, NICM, SAMANTHA enceph, ATN on CKD, PHTN, RLE DVT, w Hx DVT, morbid obesity, Hx BKA, left TMA, uncontrolled IDDMII, seizure disorder Patients Historical: Baseline creatinine 0.8-1.0.Peaked 2.8, improved to 2.0 withIVF. Clinical Indicators: BUN: 08/16 50 08/20 53 08/24 50 08/27 27 08/30 24.9 09/01 35 09/03 42 09/05 46.3 CR: 08/16 1.73 08/20 1.99 08/24 1.24 08/27 1.0 09/01 1.03 09/05 1.9 GFR: 08/16 34-39 08/20 29-33 08/24 29-33 08/29 80- >90 09/01 64-73 09/04 37- 43 Treatment: Maintain IV Bumex. Encouraged oral intake.Maintain fluid restriction. Avoid nephrotoxins. Continue to monitor renal function and urine output. Stopped Motrin. Please clarify the stage of the CKD, if known: [ ] CKD Stage 1 [ x] CKD Stage 2 [ ] CKD Stage 3a [ ] CKD Stage 3b [ ] CKD Stage 4 [ ] Other, please specify [ ] Unable to determine Reference: [employer] Stage 1 eGFR = 90 and kidney damage for =3 months Stage 2 eGFR 60-89 and kidney damage for =3 months Stage 3a eGFR 45-59 and kidney damage for =3 months Stage 3b eGFR 30-44 and kidney damage for =3 months Stage 4 eGFR 15-29 r and kidney damage for =3 months Stage 5 eGFR <15 and kidney damage for =3 months (Template last revised: November 2023) MTDD
== END 2024-09-05 12:15 | DRG 564 ==
LOC: EC 15:42 → 4SSUR 18:40 → 2SICU 08-20 12:58 → 5NMEDONC 08-24 18:26
PROVIDERS: ADMIT Hospitalist; ATTEND Hospitalist
PROC: 04HY32Z Insertion of Monitoring Device into Lower Artery, Percutaneous Approach (ICD-10-PCS; principal; 2024-08-20)
PROC: 4A133B1 Monitoring of Arterial Pressure, Peripheral, Percutaneous Approach (ICD-10-PCS; 2024-08-20)
PROC: 4A133J1 Monitoring of Arterial Pulse, Peripheral, Percutaneous Approach (ICD-10-PCS; 2024-08-20)
PROC: 02HV33Z Insertion of Infusion Device into Superior Vena Cava, Percutaneous Approach (ICD-10-PCS; 2024-08-20)
PROC: 3E043XZ Introduction of Vasopressor into Central Vein, Percutaneous Approach (ICD-10-PCS; 2024-08-20)
DX: T87.44 Infection of amputation stump, left lower extremity (principal); A41.01 Sepsis due to Methicillin susceptible Staphylococcus aureus; G92.8 Other toxic encephalopathy; N17.0 Acute kidney failure with tubular necrosis; R65.21 Severe sepsis with septic shock; J96.01 Acute respiratory failure with hypoxia; I50.23 Acute on chronic systolic (congestive) heart failure; K72.00 Acute and subacute hepatic failure without coma; I82.411 Acute embolism and thrombosis of right femoral vein; I82.431 Acute embolism and thrombosis of right popliteal vein; E87.4 Mixed disorder of acid-base balance; Z68.43 Body mass index [BMI] 50.0-59.9, adult; L97.422 Non-pressure chronic ulcer of left heel and midfoot with fat layer exposed; I42.8 Other cardiomyopathies; I13.0 Hypertensive heart and chronic kidney disease with heart failure and stage 1 through stage 4 chronic kidney disease, or unspecified chronic kidney disease; L03.116 Cellulitis of left lower limb; L03.115 Cellulitis of right lower limb; E87.1 Hypo-osmolality and hyponatremia; Z16.24 Resistance to multiple antibiotics; K76.82 Hepatic encephalopathy; I27.20 Pulmonary hypertension, unspecified; E66.01 Morbid (severe) obesity due to excess calories; E11.51 Type 2 diabetes mellitus with diabetic peripheral angiopathy without gangrene; E11.649 Type 2 diabetes mellitus with hypoglycemia without coma; E11.22 Type 2 diabetes mellitus with diabetic chronic kidney disease; G40.909 Epilepsy, unspecified, not intractable, without status epilepticus; E11.621 Type 2 diabetes mellitus with foot ulcer; E11.628 Type 2 diabetes mellitus with other skin complications; Z89.511 Acquired absence of right leg below knee; Z89.432 Acquired absence of left foot; Z79.4 Long term (current) use of insulin; L97.522 Non-pressure chronic ulcer of other part of left foot with fat layer exposed; N18.2 Chronic kidney disease, stage 2 (mild); E83.42 Hypomagnesemia; T50.2X5A Adverse effect of carbonic-anhydrase inhibitors, benzothiadiazides and other diuretics, initial encounter; Z91.199 Patient's noncompliance with other medical treatment and regimen due to unspecified reason; Z86.79 Personal history of other diseases of the circulatory system; Z79.01 Long term (current) use of anticoagulants; E87.5 Hyperkalemia; J44.89 Other specified chronic obstructive pulmonary disease; I08.1 Rheumatic disorders of both mitral and tricuspid valves; E03.9 Hypothyroidism, unspecified; T50.905A Adverse effect of unspecified drugs, medicaments and biological substances, initial encounter; B96.89 Other specified bacterial agents as the cause of diseases classified elsewhere; E86.1 Hypovolemia; I25.10 Atherosclerotic heart disease of native coronary artery without angina pectoris; R29.6 Repeated falls; N20.0 Calculus of kidney; W05.0XXA Fall from non-moving wheelchair, initial encounter; Z79.899 Other long term (current) drug therapy; Z88.1 Allergy status to other antibiotic agents; Z88.0 Allergy status to penicillin; I25.2 Old myocardial infarction; Z86.19 Personal history of other infectious and parasitic diseases; Z95.810 Presence of automatic (implantable) cardiac defibrillator; Z87.891 Personal history of nicotine dependence; Z86.73 Personal history of transient ischemic attack (TIA), and cerebral infarction without residual deficits; Z91.81 History of falling; Z86.718 Personal history of other venous thrombosis and embolism; Z79.890 Hormone replacement therapy; Z99.3 Dependence on wheelchair
CPT/HCPCS: 36415; 36600; 70450; 71045; 76705; 76770; 78582; 80048; 80053; 80076; 81001; 82140; 82533; 82550; 82805; 83036; 83605; 83735; 83880; 84100; 84132; 84145; 84439; 84443; 84450; 84460; 84484; 85025; 85610; 85730; 86140; 87040; 87070; 87075; 87077; 87086; 87186; 87205; 87324; 93005; 93923; 93970; 94640; 94760; 96360; 96361; 96365; 96367; 96374; 96375; 99284; 99285